=== PATIENT | female | born 1960 | race American Indian/Alaskan Native ===

== ENCOUNTER 2022-01-31 17:39 | Inpatient (IN) | payer MEDICAID ==
[2022-01-31] MEDS ORDERED: SODIUM CHLORIDE 0.9% 1000 ML 1,000 ML IV ONE ×2 (19:44→23:44)
--- NOTE | 2022-01-31 19:48 | Emergency Department Report ---
ED General Adult HPI - General Chief complaint: Hyperglycemia Stated complaint: HYPERGLYCEMIA Time Seen by Provider: 01/31/22 19:35 Source: EMS Mode of arrival: Stretcher Limitations: No Limitations - History of Present Illness Initial comments: Patient presents to the emergency department via EMS from [facility] for hypoglycemia. Patient is nonverbal and not able to add to history. Per my evaluation of the patient EMS had already left the premises. -: unknown Severity scale (0 -10): 0 Consistency: constant Improves with: none Worsens with: none Associated Symptoms: denies other symptoms Treatments Prior to Arrival: none - Related Data Allergies Allergy/AdvReac Type Severity Reaction Status Date / Time No Known Allergies Allergy Verified 01/31/22 17:55 ED Review of Systems ROS: Stated complaint: HYPERGLYCEMIA Other details as noted in HPI Comment: Unobtainable due to pts medical conditions ED Physical Exam - General Limitations: Other (Patient is nonverbal) General appearance: alert - Head Head exam: Present: atraumatic, normocephalic - Eye Eye exam: Present: normal appearance, PERRL, EOMI - ENT ENT exam: Present: mucous membranes dry - Neck Neck exam: Present: normal inspection - Respiratory Respiratory exam: Present: normal lung sounds bilaterally. Absent: respiratory distress - Cardiovascular Cardiovascular Exam: Present: normal rhythm, tachycardia - GI/Abdominal GI/Abdominal exam: Present: soft. Absent: distended - Neurological Exam Neurological exam: Present: alert, other (Not able to assess due to the patient's condition) - Psychiatric Psychiatric exam: Present: other (Unable to assess due to the patient's condition) - Skin Skin exam: Present: warm, dry, intact, normal color. Absent: rash ED Course Vital Signs 01/31/22 01/31/22 01/31/22 17:50 19:02 19:15 Temperature 98.8 F Pulse Rate 120 H 126 H 122 H Respiratory 18 26 H 22 Rate Blood Pressure 116/83 Blood Pressure 133/97 [Left] O2 Sat by Pulse 100 100 100 Oximetry 01/31/22 01/31/22 01/31/22 19:30 19:45 20:00 Temperature Pulse Rate 123 H 121 H 126 H Respiratory 22 24 27 H Rate Blood Pressure 121/88 126/85 128/94 Blood Pressure [Left] O2 Sat by Pulse 100 99 100 Oximetry 01/31/22 01/31/22 01/31/22 20:15 20:31 20:45 Temperature Pulse Rate 120 H 141 H 137 H Respiratory 17 36 H 34 H Rate Blood Pressure 128/94 128/94 128/94 Blood Pressure [Left] O2 Sat by Pulse 99 Oximetry 01/31/22 01/31/22 01/31/22 21:01 21:15 21:31 Temperature Pulse Rate 137 H 142 H 142 H Respiratory 35 H 40 H 36 H Rate Blood Pressure 136/95 136/95 144/99 Blood Pressure [Left] O2 Sat by Pulse 91 Oximetry 01/31/22 01/31/22 01/31/22 21:45 22:01 22:15 Temperature Pulse Rate 144 H 141 H 148 H Respiratory 22 32 H 33 H Rate Blood Pressure 139/95 139/95 137/109 Blood Pressure [Left] O2 Sat by Pulse 99 79 L Oximetry 01/31/22 01/31/22 22:31 22:45 Temperature Pulse Rate 147 H 143 H Respiratory 29 H 33 H Rate Blood Pressure 137/109 137/109 Blood Pressure [Left] O2 Sat by Pulse 98 Oximetry ED Medical Decision Making - Lab Data Result diagrams: 01/31/22 20:33 01/31/22 20:33 Lab Results 01/31/22 01/31/22 01/31/22 Range/Units 20:33 20:33 20:33 WBC 12.5 H (4.5-11.0) K/mm3 RBC 6.16 H (3.65-5.03) M/mm3 Hgb 11.0 (10.1-14.3) gm/dl Hct 37.2 (30.3-42.9) % MCV 61 L (79-97) fl MCH 18 L (28-32) pg MCHC 30 (30-34) % RDW 19.6 H (13.2-15.2) % Plt Count 395 (140-440) K/mm3 Add Manual Diff Complete Total Counted 100 Seg Neuts % (Manual) 98.0 H (40.0-70.0) % Band Neutrophils % 0 % Lymphocytes % (Manual) 0 L (13.4-35.0) % Reactive Lymphs % (Man) 0 % Monocytes % (Manual) 2.0 (0.0-7.3) % Eosinophils % (Manual) 0 (0.0-4.3) % Basophils % (Manual) 0 (0.0-1.8) % Metamyelocytes % 0 % Myelocytes % 0 % Promyelocytes % 0 % Blast Cells % 0 % Nucleated RBC % 2.0 H (0.0-0.9) % Seg Neutrophils # Man 12.3 H (1.8-7.7) K/mm3 Band Neutrophils # 0.0 K/mm3 Lymphocytes # (Manual) 0.0 L (1.2-5.4) K/mm3 Abs React Lymphs (Man) 0.0 K/mm3 Monocytes # (Manual) 0.3 (0.0-0.8) K/mm3 Eosinophils # (Manual) 0.0 (0.0-0.4) K/mm3 Basophils # (Manual) 0.0 (0.0-0.1) K/mm3 Metamyelocytes # 0.0 K/mm3 Myelocytes # 0.0 K/mm3 Promyelocytes # 0.0 K/mm3 Blast Cells # 0.0 K/mm3 WBC Morphology Not Reportable Hypersegmented Neuts Not Reportable Hyposegmented Neuts Not Reportable Hypogranular Neuts Not Reportable Smudge Cells Not Reportable Toxic Granulation Not Reportable Toxic Vacuolation Not Reportable Dohle Bodies Not Reportable Pelger-Huet Anomaly Not Reportable Sung Rods Not Reportable Platelet Estimate Consistent w auto Clumped Platelets Not Reportable Plt Clumps, EDTA Not Reportable Large Platelets Not Reportable Giant Platelets Not Reportable Platelet Satelliting Not Reportable Plt Morphology Comment Not Reportable RBC Morphology Not Reportable Dimorphic RBCs Not Reportable Polychromasia Not Reportable Hypochromasia 3+ Poikilocytosis 3+ Anisocytosis 1+ Microcytosis 2+ Macrocytosis Not Reportable Spherocytes Not Reportable Pappenheimer Bodies Not Reportable Sickle Cells Not Reportable Target Cells 1+ Tear Drop Cells Few Ovalocytes 1+ Helmet Cells Not Reportable [place] Bodies Not Reportable [place] Rings Not Reportable Lesly Cells 1+ Bite Cells Not Reportable Crenated Cell Not Reportable Elliptocytes Few Acanthocytes (Spur) Few Rouleaux Not Reportable Hemoglobin C Crystals Not Reportable Schistocytes Rare Malaria parasites Not Reportable Sven Bodies Not Reportable Hem Pathologist Commnt No Sodium 139 (137-145) mmol/L Potassium 5.6 H (3.6-5.0) mmol/L Chloride 110.1 H (98-107) mmol/L Carbon Dioxide 9 L* (22-30) mmol/L Anion Gap 26 mmol/L BUN 15 (7-17) mg/dL Creatinine 0.8 (0.6-1.2) mg/dL Estimated GFR > 60 ml/min BUN/Creatinine Ratio 19 % Glucose 254 H (65-100) mg/dL Lactic Acid 2.50 H* (0.7-2.0) mmol/L Calcium 10.8 H (8.4-10.2) mg/dL Total Bilirubin 0.70 (0.1-1.2) mg/dL AST 20 (5-40) units/L ALT 10 (7-56) units/L Alkaline Phosphatase 103 (35-129) units/L Total Protein 7.4 (6.3-8.2) g/dL Albumin 4.4 (3.9-5) g/dL Albumin/Globulin Ratio 1.5 % Urine Color (Yellow) Urine Turbidity (Clear) Urine pH (5.0-7.0) Ur Specific [place] (1.003-1.030) Urine Protein (Negative) mg/dL Urine Glucose (UA) (Negative) mg/dL Urine Ketones (Negative) mg/dL Urine Blood (Negative) Urine Nitrite (Negative) Ur Reducing Substances Urine Bilirubin (Negative) Urine Ictotest Urine Urobilinogen (<2.0) mg/dL Ur Leukocyte Esterase (Negative) Urine WBC (Auto) (0.0-6.0) /HPF Urine RBC (Auto) (0.0-6.0) /HPF U Epithel Cells (Auto) (0-13.0) /HPF Urine Mucus /HPF Urine Yeast (Budding) /HPF 01/31/22 01/31/22 Range/Units 22:49 22:51 WBC (4.5-11.0) K/mm3 RBC (3.65-5.03) M/mm3 Hgb (10.1-14.3) gm/dl Hct (30.3-42.9) % MCV (79-97) fl MCH (28-32) pg MCHC (30-34) % RDW (13.2-15.2) % Plt Count (140-440) K/mm3 Add Manual Diff Total Counted Seg Neuts % (Manual) (40.0-70.0) % Band Neutrophils % % Lymphocytes % (Manual) (13.4-35.0) % Reactive Lymphs % (Man) % Monocytes % (Manual) (0.0-7.3) % Eosinophils % (Manual) (0.0-4.3) % Basophils % (Manual) (0.0-1.8) % Metamyelocytes % % Myelocytes % % Promyelocytes % % Blast Cells % % Nucleated RBC % (0.0-0.9) % Seg Neutrophils # Man (1.8-7.7) K/mm3 Band Neutrophils # K/mm3 Lymphocytes # (Manual) (1.2-5.4) K/mm3 Abs React Lymphs (Man) K/mm3 Monocytes # (Manual) (0.0-0.8) K/mm3 Eosinophils # (Manual) (0.0-0.4) K/mm3 Basophils # (Manual) (0.0-0.1) K/mm3 Metamyelocytes # K/mm3 Myelocytes # K/mm3 Promyelocytes # K/mm3 Blast Cells # K/mm3 WBC Morphology Hypersegmented Neuts Hyposegmented Neuts Hypogranular Neuts Smudge Cells Toxic Granulation Toxic Vacuolation Dohle Bodies Pelger-Huet Anomaly Sung Rods Platelet Estimate Clumped Platelets Plt Clumps, EDTA Large Platelets Giant Platelets Platelet Satelliting Plt Morphology Comment RBC Morphology Dimorphic RBCs Polychromasia Hypochromasia Poikilocytosis Anisocytosis Microcytosis Macrocytosis Spherocytes Pappenheimer Bodies Sickle Cells Target Cells Tear Drop Cells Ovalocytes Helmet Cells St[place] Bodies [place] Rings [place] Cells Bite Cells Crenated Cell Elliptocytes Acanthocytes (Spur) Rouleaux Hemoglobin C Crystals Schistocytes Malaria parasites Sven Bodies Hem Pathologist Commnt Sodium (137-145) mmol/L Potassium (3.6-5.0) mmol/L Chloride (98-107) mmol/L Carbon Dioxide (22-30) mmol/L Anion Gap mmol/L BUN (7-17) mg/dL Creatinine (0.6-1.2) mg/dL Estimated GFR ml/min BUN/Creatinine Ratio % Glucose (65-100) mg/dL Lactic Acid 1.30 (0.7-2.0) mmol/L Calcium (8.4-10.2) mg/dL Total Bilirubin (0.1-1.2) mg/dL AST (5-40) units/L ALT (7-56) units/L Alkaline Phosphatase (35-129) units/L Total Protein (6.3-8.2) g/dL Albumin (3.9-5) g/dL Albumin/Globulin Ratio % Urine Color Yellow (Yellow) Urine Turbidity Hazy (Clear) Urine pH 5.0 (5.0-7.0) Ur Specific [place] 1.035 H (1.003-1.030) Urine Protein 100 mg/dl (Negative) mg/dL Urine Glucose (UA) Negative (Negative) mg/dL Urine Ketones 300 (Negative) mg/dL Urine Blood Small A (Negative) Urine Nitrite Negative (Negative) Ur Reducing Substances Not Reportable Urine Bilirubin Negative (Negative) Urine Ictotest Not Reportable Urine Urobilinogen < 2.0 (<2.0) mg/dL Ur Leukocyte Esterase Negative (Negative) Urine WBC (Auto) 142.0 H (0.0-6.0) /HPF Urine RBC (Auto) 107.0 (0.0-6.0) /HPF U Epithel Cells (Auto) 1.0 (0-13.0) /HPF Urine Mucus Few /HPF Urine Yeast (Budding) 3+ /HPF - Radiology Data Radiology results: report reviewed - Medical Decision Making Patient received IV fluids and IV antibiotics Discussed results with the patient's daughter Critical Care Time: Yes Critical care time in (mins) excluding proc time.: 35 Critical care attestation.: If time is entered above; I have spent that time in minutes in the direct care of this critically ill patient, excluding procedure time. ED Disposition Clinical Impression: Sepsis Disposition: 09 ADMITTED INPATIENT Is pt being admited?: Yes Does the pt Need Aspirin: No Condition: Fair
--- NOTE | 2022-01-31 20:30 | XRay Report ---
CHEST 1 VIEW 01/31/2022 7:08 PM INDICATION / CLINICAL INFORMATION: tachycardia. COMPARISON: None available. FINDINGS: SUPPORT DEVICES: None. HEART / MEDIASTINUM: No significant abnormality. LUNGS / PLEURA: No significant pulmonary or pleural abnormality. No pneumothorax. ADDITIONAL FINDINGS: No significant additional findings. IMPRESSION: 1. No acute findings. Signer Name: Alejandro Peraza MD Signed: 01/31/2022 8:26 PM Workstation Name: [id number]
[2022-01-31 20:49] LABS: Hematocrit 37.2 % (30.3-42.9); Mean Corpuscular HGB Conc 30 % (30-34); Platelet Count 395 K/mm3 (140-440); Red Blood Count 6.16 M/mm3 (3.65-5.03); Red Cell Distribution Width 19.6 % (13.2-15.2)
[2022-01-31 20:50] LABS: Mean Corpuscular Volume 61 fl (79-97)
[2022-01-31 21:11] LABS: Alanine Aminotransferase 10 units/L (7-56); Albumin 4.4 g/dL (3.9-5); BUN/Creatinine Ratio 19; Blood Urea Nitrogen 15 mg/dL (7-17); Calcium 10.8 mg/dL (8.4-10.2); Hemolysis Index 134
[2022-01-31 21:52] LABS: Anisocytosis 1+; Basophils % (Manual) 0 % (0.0-1.8); Eosinophils % (Manual) 0 % (0.0-4.3); Total Cells Counted 100
[2022-01-31 21:53] LABS: Burr Cells 1+; Hypochromasia 3+; Ovalocytes 1+; Poikilocytosis 3+; Schistocytes Rare; Target Cells 1+; Tear Drop Cells Few
[2022-01-31 21:54] LABS: Platelet Estimate Consistent w Auto
[2022-01-31] MEDS ORDERED: CEFEPIME/NS 2 GM/100 ML 2 GM/100 ML BAG IV ONE (22:12)
[2022-01-31 23:12] LABS: Mucus,Urine FEW /HPF
[2022-01-31 23:20] LABS: Bilirubin,Urine Negative (Negative); Color,Urine Yellow (Yellow)
[2022-01-31 23:21] LABS: Blood,Urine Small (Negative); Urobilinogen,Urine < 2.0 mg/dL (<2.0)
[2022-02-01] MEDS ORDERED: MORPHINE 4 MG/1 ML INJ IV PRN (00:57)
[2022-02-01] MEDS ORDERED: ALBUTEROL 2.5 MG/3 ML NEBU IH PRN (00:57)
[2022-02-01] MEDS ORDERED: MORPHINE 2 MG/1 ML INJ IV PRN (00:57)
[2022-02-01] MEDS ORDERED: ONDANSETRON 4 MG/2 ML INJ IV PRN (00:57)
[2022-02-01] MEDS ORDERED: D5W/0.45% NACL 1,000 ML IV SCH (01:00)
[2022-02-01] MEDS ORDERED: DEXTROSE 50% IN WATER (25GM) 50 ML SYRINGE IV PRN (01:00)
[2022-02-01] MEDS ORDERED: SODIUM BICARB 8.4% 50 MEQ/50 ML SYRINGE IV ONE ×3 (01:21→12:11)
[2022-02-01] MEDS ORDERED: SODIUM CHLORIDE 0.9% 1000 ML 1,000 ML IV SCH (01:45)
[2022-02-01] MEDS ORDERED: IPRATROPIUM/ALBUTEROL SULFATE 3 ML AMPUL.NEB IH SCH ×2 (02:00→08:00)
[2022-02-01] MEDS ORDERED: IPRATROPIUM/ALBUTEROL SULFATE 3 ML AMPUL.NEB IH PRN (05:30)
[2022-02-01] MEDS ORDERED: INSULIN LISPRO 100 UNIT/ML SUB-Q SCH (06:00)
[2022-02-01] MEDS ORDERED: CEFEPIME/NS 1 GM/100 ML 1 GM/100 ML BAG IV SCH (06:00)
--- NOTE | 2022-02-01 06:53 | History and Physical Report ---
History of Present Illness Date of admission: 02/01/22 00:58 Medications and Allergies Allergies Allergy/AdvReac Type Severity Reaction Status Date / Time No Known Allergies Allergy Verified 01/31/22 17:55 Active Meds: Active Medications Acetaminophen (Acetaminophen 325 Mg Tab) 650 mg PO Q4H PRN PRN Reason: Pain MILD(1-3)/Fever >100.5/ROSADO Albuterol (Albuterol 2.5 Mg/3 Ml Nebu) 2.5 mg IH Q3HRT PRN PRN Reason: Shortness Of Breath Albuterol/Ipratropium (Ipratropium/Albuterol Sulfate 3 Ml Ampul.Neb) 1 ampul IH Q4HRT PRN PRN Reason: Dyspnea Last Admin: 02/01/22 05:42 Dose: 1 ampul Dextrose (Dextrose 50% In Water (25gm) 50 Ml Syringe) 0 ml IV Q30MIN PRN; Protocol PRN Reason: Hypoglycemia Famotidine (Famotidine 20 Mg/2 Ml Inj) 20 mg IV BID JAMIL Cefepime HCl (Cefepime/Ns 1 Gm/100 Ml) 1 gm in 100 mls @ 200 mls/hr IV Q8H JAMIL; Protocol Sodium Chloride (Nacl 0.9% 1000 Ml) 1,000 mls @ 100 mls/hr IV DIRECT JAMIL Last Admin: 02/01/22 03:23 Dose: 100 mls/hr Insulin Human Lispro (Insulin Lispro 100 Unit/Ml) 0 unit SUB-Q Q6HR JAMIL; Protocol Morphine Sulfate (Morphine 2 Mg/1 Ml Inj) 2 mg IV Q4H PRN PRN Reason: Pain, Moderate (4-6) Morphine Sulfate (Morphine 4 Mg/1 Ml Inj) 4 mg IV Q4H PRN PRN Reason: Pain , Severe (7-10) Ondansetron HCl (Ondansetron 4 Mg/2 Ml Inj) 4 mg IV Q8H PRN PRN Reason: Nausea And Vomiting Sodium Chloride (Sodium Chloride 0.9% 10 Ml Flush Syringe) 10 ml IV BID JAMIL Sodium Chloride (Sodium Chloride 0.9% 10 Ml Flush Syringe) 10 ml IV PRN PRN PRN Reason: LINE FLUSH Exam - Constitutional Vitals: Temp Pulse Resp BP Pulse Ox 98.8 F 114 H 24 103/68 97 01/31/22 17:50 02/01/22 06:34 02/01/22 05:43 02/01/22 05:45 02/01/22 06:34 Results - Labs CBC & Chem 7: 01/31/22 20:33 01/31/22 20:33 Labs: Laboratory Last Values WBC 12.5 K/mm3 (4.5-11.0) H 01/31/22 20:33 RBC 6.16 M/mm3 (3.65-5.03) H 01/31/22 20:33 Hgb 11.0 gm/dl (10.1-14.3) 01/31/22 20:33 Hct 37.2 % (30.3-42.9) 01/31/22 20: MCV 61 fl (79-97) L 01/31/22 20: MCH 18 pg (28-32) L 01/31/22 20:33 MCHC 30 % (30-34) 01/31/22 20:33 RDW 19.6 % (13.2-15.2) H 01/31/22 20:33 Plt Count 395 K/mm3 (140-440) 01/31/22 20:33 Add Manual Diff Complete 01/31/22 20:33 Total Counted 100 01/31/22 20:33 Seg Neuts % (Manual) 98.0 % (40.0-70.0) H 01/31/22 20:33 Band Neutrophils % 0 % 01/31/22 20:33 Lymphocytes % (Manual) 0 % (13.4-35.0) L 01/31/22 20:33 Reactive Lymphs % (Man) 0 % 01/31/22 20:33 Monocytes % (Manual) 2.0 % (0.0-7.3) 01/31/22 20:33 Eosinophils % (Manual) 0 % (0.0-4.3) 01/31/22 20:33 Basophils % (Manual) 0 % (0.0-1.8) 01/31/22 20:33 Metamyelocytes % 0 % 01/31/22 20:33 Myelocytes % 0 % 01/31/22 20:33 Promyelocytes % 0 % 01/31/22 20:33 Blast Cells % 0 % 01/31/22 20:33 Nucleated RBC % 2.0 % (0.0-0.9) H 01/31/22 20:33 Seg Neutrophils # Man 12.3 K/mm3 (1.8-7.7) H 01/31/22 20:33 Band Neutrophils # 0.0 K/mm3 01/31/22 20:33 Lymphocytes # (Manual) 0.0 K/mm3 (1.2-5.4) L 01/31/22 20:33 Abs React Lymphs (Man) 0.0 K/mm3 01/31/22 20:33 Monocytes # (Manual) 0.3 K/mm3 (0.0-0.8) 01/31/22 20:33 Eosinophils # (Manual) 0.0 K/mm3 (0.0-0.4) 01/31/22 20:33 Basophils # (Manual) 0.0 K/mm3 (0.0-0.1) 01/31/22 20:33 Metamyelocytes # 0.0 K/mm3 01/31/22 20:33 Myelocytes # 0.0 K/mm3 01/31/22 20:33 Promyelocytes # 0.0 K/mm3 01/31/22 20:33 Blast Cells # 0.0 K/mm3 01/31/22 20:33 WBC Morphology Not Reportable 01/31/22 20:33 Hypersegmented Neuts Not Reportable 01/31/22 20:33 Hyposegmented Neuts Not Reportable 01/31/22 20:33 Hypogranular Neuts Not Reportable 01/31/22 20:33 Smudge Cells Not Reportable 01/31/22 20:33 Toxic Granulation Not Reportable 01/31/22 20:33 Toxic Vacuolation Not Reportable 01/31/22 20:33 Dohle Bodies Not Reportable 01/31/22 20:33 Pelger-Huet Anomaly Not Reportable 01/31/22 20:33 Sung Rods Not Reportable 01/31/22 20:33 Platelet Estimate Consistent w auto 01/31/22 20:33 Clumped Platelets Not Reportable 01/31/22 20:33 Plt Clumps, EDTA Not Reportable 01/31/22 20:33 Large Platelets Not Reportable 01/31/22 20:33 Giant Platelets Not Reportable 01/31/22 20:33 Platelet Satelliting Not Reportable 01/31/22 20:33 Plt Morphology Comment Not Reportable 01/31/22 20:33 RBC Morphology Not Reportable 01/31/22 20:33 Dimorphic RBCs Not Reportable 01/31/22 20:33 Polychromasia Not Reportable 01/31/22 20:33 Hypochromasia 3+ 01/31/22 20:33 Poikilocytosis 3+ 01/31/22 20:33 Anisocytosis 1+ 01/31/22 20:33 Microcytosis 2+ 01/31/22 20:33 Macrocytosis Not Reportable 01/31/22 20:33 Spherocytes Not Reportable 01/31/22 20:33 Pappenheimer Bodies Not Reportable 01/31/22 20:33 Sickle Cells Not Reportable 01/31/22 20:33 Target Cells 1+ 01/31/22 20:33 Tear Drop Cells Few 01/31/22 20:33 Ovalocytes 1+ 01/31/22 20:33 Helmet Cells Not Reportable 01/31/22 20:33 [place] Bodies Not Reportable 01/31/22 20:33 [place] Rings Not Reportable 01/31/22 20:33 Lesly Cells 1+ 01/31/22 20:33 Bite Cells Not Reportable 01/31/22 20:33 Crenated Cell Not Reportable 01/31/22 20:33 Elliptocytes Few 01/31/22 20:33 Acanthocytes (Spur) Few 01/31/22 20:33 Rouleaux Not Reportable 01/31/22 20:33 Hemoglobin C Crystals Not Reportable 01/31/22 20:33 Schistocytes Rare 01/31/22 20:33 Malaria parasites Not Reportable 01/31/22 20:33 Sven Bodies Not Reportable 01/31/22 20:33 Hem Pathologist Commnt No 01/31/22 20:33 Sodium 139 mmol/L (137-145) 01/31/22 20:33 Potassium 5.6 mmol/L (3.6-5.0) H 01/31/22 20:33 Chloride 110.1 mmol/L (98-107) H 01/31/22 20:33 Carbon Dioxide 9 mmol/L (22-30) L* 01/31/22 20:33 Anion Gap 26 mmol/L 01/31/22 20:33 BUN 15 mg/dL (7-17) 01/31/22 20:33 Creatinine 0.8 mg/dL (0.6-1.2) 01/31/22 20:33 Estimated GFR > 60 ml/min 01/31/22 20:33 BUN/Creatinine Ratio 19 % 01/31/22 20:33 Glucose 254 mg/dL (65-100) H 01/31/22 20:33 Lactic Acid 1.30 mmol/L (0.7-2.0) 01/31/22 22:51 Calcium 10.8 mg/dL (8.4-10.2) H 01/31/22 20:33 Total Bilirubin 0.70 mg/dL (0.1-1.2) 01/31/22 20:33 AST 20 units/L (5-40) 01/31/22 20:33 ALT 10 units/L (7-56) 01/31/22 20:33 Alkaline Phosphatase 103 units/L (35-129) 01/31/22 20:33 Total Protein 7.4 g/dL (6.3-8.2) 01/31/22 20:33 Albumin 4.4 g/dL (3.9-5) 01/31/22 20:33 Albumin/Globulin Ratio 1.5 % 01/31/22 20:33 Urine Color Yellow (Yellow) 01/31/22 22:49 Urine Turbidity Hazy (Clear) 01/31/22 22:49 Urine pH 5.0 (5.0-7.0) 01/31/22 22:49 Ur Specific [place] 1.035 (1.003-1.030) H 01/31/22 22:49 Urine Protein 100 mg/dl mg/dL (Negative) 01/31/22 22:49 Urine Glucose (UA) Negative mg/dL (Negative) 01/31/22 22:49 Urine Ketones 300 mg/dL (Negative) 01/31/22 22:49 Urine Blood Small (Negative) A 01/31/22 22:49 Urine Nitrite Negative (Negative) 01/31/22 22:49 Ur Reducing Substances Not Reportable 01/31/22 22:49 Urine Bilirubin Negative (Negative) 01/31/22 22:49 Urine Ictotest Not Reportable 01/31/22 22:49 Urine Urobilinogen < 2.0 mg/dL (<2.0) 01/31/22 22:49 Ur Leukocyte Esterase Negative (Negative) 01/31/22 22:49 Urine WBC (Auto) 142.0 /HPF (0.0-6.0) H 01/31/22 22:49 Urine RBC (Auto) 107.0 /HPF (0.0-6.0) 01/31/22 22:49 U Epithel Cells (Auto) 1.0 /HPF (0-13.0) 01/31/22 22:49 Urine Mucus Few /HPF 01/31/22 22:49 Urine Yeast (Budding) 3+ /HPF 01/31/22 22:49 Microbiology: Microbiology 01/31/22 20:33 Peripheral/Venous Blood Culture - Preliminary Culture in Progress 01/31/22 20:33 Peripheral/Venous Blood Culture - Preliminary Culture in Progress
--- NOTE | 2022-02-01 07:48 | Event Note ---
Date: 02/01/22 Accepted this patient as an ICU transfer from Dr. Kiser. Per ER physician note patient was noted to be hypoglycemic at outpatient facility. Was transferred to our hospital. Blood sugars have never been noted to be hypoglycemic since patient has been here. Patient was admitted to the floor and subsequently noted to be in diabetic ketoacidosis. Will transfer patient to ICU. Dr. Hudson notified. Assessment and Plan: #Diabetic ketoacidosis #Severe Metabolic Acidosis - altered however unclear bsaeline, kussmaul breathing on my encounter. - AG:, BG in 300's, ketonuria, VBG pending, bicarb 9 - weakness, states she is compliant with meds. - DKA protocol: IV insulin, IVF. - bicarb gtt ordered x 1 bag. - NPO until AG closes - once AG closed (< 14), can start lantus 10 mg subq. Please run insulin gtt 1hr after lantus admin. Can initiate diabetic diet as well - accuchecks q1 hr until AG closed - BMP q4hr until AG closed - CVC needed due to poor access - [facility] consultation #Hyperkalemia - 5.8. - should correct with insulin admin and fluid resuscitation. - kayexylate if K > 6. #Type 2 Diabetes with Hyperglycemia - hemoglobin A1c: ordered - home regimen: Unknown - current regimen: Moderate SSI - blood glucose goal 140-180 while inpatient - continue to monitor #Urinary tract infection #Sepsis POA - UA elevated WBC, wbc: 12, tachycardic - urine culture ordered - d/c cefepime, start rocephin IV 3-5 d therapy Dispo: ICU due to DKA. The high probability of a clinically significant, sudden or life threatening deterioration of the [endocrine, infectious disease] system(s) required my full and direct attention, intervention and personal management. The aggregate critical care time was [60] minutes. This time is in addition to time spent performing reported procedures but includes the following: [x] Data Review and interpretation [x] Patient assessment and monitoring of vital signs [x] Documentation [x] Medication orders and management
[2022-02-01] MEDS ORDERED: SODIUM BICARBONATE 150 MEQ in DEXTROSE 5% IN WATER 1,000 ML IV SCH ×2 (08:00→09:00)
[2022-02-01] MEDS ORDERED: POTASSIUM CHLORIDE 10 MEQ 10 MEQ/100 ML BAG IV SCH ×2 (08:00→18:30)
[2022-02-01] MEDS ORDERED: LACTATED RINGERS 1,000 ML ONE (08:15)
[2022-02-01 08:44] LABS: Blood Urea Nitrogen 14 mg/dL (7-17); Calcium 8.8 mg/dL (8.4-10.2); Hemolysis Index 109
[2022-02-01 08:57] LABS: BUN/Creatinine Ratio 20
[2022-02-01] MEDS ORDERED: cefTRIAXone/NS 1 GM/50 ML 1 GM/50 ML BAG IV SCH (09:00)
[2022-02-01] MEDS ORDERED: SODIUM CHLORIDE 0.9% 1000 ML 1,000 ML IV ONE (09:00)
[2022-02-01] MEDS ORDERED: NORepinephrine/NS 8 MG-250 ML 0 MG/0 ML INFUS..BTL IV ONE (09:44)
[2022-02-01 09:53] LABS: ABG Base Excess -24.8 mmol/L (-2.0-3.0); ABG HCO3 3.7 mmol/L (20.0-26.0); ABG Methemoglobin 0.8 % (0.0-1.5); ABG Oxygen Saturation 97.3 % (95.0-99.0)
[2022-02-01 10:04] LABS: ABG PH 7.044 pH Units (7.350-7.450)
--- NOTE | 2022-02-01 11:09 | XRay Report ---
CHEST 1 VIEW 02/01/2022 10:52 AM INDICATION / CLINICAL INFORMATION: RT IJ central line. COMPARISON: Previous day. FINDINGS: SUPPORT DEVICES: Right IJ central venous catheter has its tip at the right atrial/SVC junction. HEART / MEDIASTINUM: No significant abnormality. LUNGS / PLEURA: New patchy opacity bilaterally left greater than right. No pneumothorax. ADDITIONAL FINDINGS: No significant additional findings. IMPRESSION: 1. Central line placement without complication. 2. Development of bilateral pneumonia versus atypical edema. Signer Name: Moises Prince MD Signed: 02/01/2022 11:04 AM Workstation Name: [email or web address]
[2022-02-01] MEDS ORDERED: LACTATED RINGERS 1,000 ML IV ONE (11:35)
--- NOTE | 2022-02-01 11:37 | Procedure Note ---
Date of procedure: 02/01/22 Pre-op diagnosis: DKA, poor vascular access Post-op diagnosis: same Procedure: Statement of consent: Two MD consent for emergent procedure, Dr. Hidalgo and Dr. Hudson-> see chart for consent Triple lumen catheter was placed in Right Inter Jugular vein. Sterile technique was utilized. Patient prepped and placed in trendelenburg position. Area prepped with chlorhexidine/ full body drape utilized. Target vessel visualized with ultrasound. Using seldinger technique, a finder needle was used to puncture target vessel. Wire was threaded through the needle, skin was nicked and needle was withdrawn over wire. A dilator was passed over the wire and tract was dilated. A central venous line catheter was threaded over a wire. All three ports withdrew blood and flushed without difficulty with saline. Line sutured in place, biopatch placed and dressed with tegaderm. Chest x-ray to confirm placement. Pt tolerated procedure well. VS remained stable throughout procedure. (time spent placing line not included in daily critical care time) CCT: 60 mins Anesthesia: local Surgeon: RADHA GONZALEZ Estimated blood loss: minimal Condition: critical Disposition: ICU
--- NOTE | 2022-02-01 11:39 | XRay Report ---
CHEST 1 VIEW 02/01/2022 11:20 AM INDICATION / CLINICAL INFORMATION: Repositioned RT IJ central line. COMPARISON: February 01, 2022 FINDINGS: SUPPORT DEVICES: Right jugular line tip overlies distal SVC HEART / MEDIASTINUM: No significant abnormality. LUNGS / PLEURA: Diffuse opacities in bilateral lungs persist No pneumothorax. ADDITIONAL FINDINGS: No significant additional findings. IMPRESSION: Diffuse bilateral pulmonary opacities. Right jugular line tip overlies distal SVC Signer Name: Rigoberto Eaton MD Signed: 02/01/2022 11:34 AM Workstation Name: [id number]
[2022-02-01] MEDS: INSULIN REGULAR, HUMAN 100 UNITS in SODIUM CHLORIDE 0.9% 99 ML IV SCH ×2 (12:03→20:44)
[2022-02-01] MEDS: FAMOTIDINE 20 MG/2 ML INJ IV SCH ×2 (12:07→22:05)
[2022-02-01] MEDS ORDERED: VANCOMYCIN 1,000 MG in SODIUM CHLORIDE 0.9% 500 ML 500 ML IV ONE (12:51)
[2022-02-01] MEDS ORDERED: VANCOMYCIN PHARMACY TO DOSE IV SCH (13:00)
[2022-02-01 14:07] LABS: Blood Urea Nitrogen 11 mg/dL (7-17); Calcium 7.7 mg/dL (8.4-10.2); Hemolysis Index 1
[2022-02-01 14:21] LABS: BUN/Creatinine Ratio 18
--- NOTE | 2022-02-01 14:21 | Consultation ---
History of Present Illness - Reason for Consult Consult date: 02/01/22 DKA - History of Present Illness 61 y/o female admitted for AMS and found to have severe metabolic acidosis. Somehow admitted to the telemetry floor. This am worsening of altered mental state and repeat labs showed a bicarb of 3. Transferred to ICU for insulin drip, volume resuscitation and correction of severe metabolic derangements. Past History Past Medical History: other (unable to obtain) Past Surgical History: Other (unable to obtain) Social history: other (unable to obtain) Family history: other (unable to obtain) Medications and Allergies Allergies Allergy/AdvReac Type Severity Reaction Status Date / Time No Known Allergies Allergy Verified 01/31/22 17:55 Active Meds: Active Medications Acetaminophen (Acetaminophen 325 Mg Tab) 650 mg PO Q4H PRN PRN Reason: Pain MILD(1-3)/Fever >100.5/ROSADO Albuterol (Albuterol 2.5 Mg/3 Ml Nebu) 2.5 mg IH Q3HRT PRN PRN Reason: Shortness Of Breath Albuterol/Ipratropium (Ipratropium/Albuterol Sulfate 3 Ml Ampul.Neb) 1 ampul IH Q4HRT PRN PRN Reason: Dyspnea Last Admin: 02/01/22 05:42 Dose: 1 ampul Dextrose (Dextrose 50% In Water (25gm) 50 Ml Syringe) 0 ml IV Q30MIN PRN; Protocol PRN Reason: Hypoglycemia Famotidine (Famotidine 20 Mg/2 Ml Inj) 20 mg IV BID JAMIL Last Admin: 02/01/22 12:07 Dose: 20 mg Sodium Chloride (Nacl 0.9% 1000 Ml) 1,000 mls @ 100 mls/hr IV DIRECT JAMIL Last Admin: 02/01/22 03:23 Dose: 100 mls/hr Sodium Bicarbonate 150 meq/ (Dextrose) 1,150 mls @ 125 mls/hr IV DIRECT JAMIL Stop: 02/01/22 18:11 Last Admin: 02/01/22 11:50 Dose: 125 mls/hr Insulin Human Regular 100 (units/ Sodium Chloride) 100 mls @ 1 mls/hr IV TITR JAMIL; Protocol Last Admin: 02/01/22 12:03 Dose: 1 units/hr, 1 mls/hr Potassium Chloride (Kcl 10meq/100ml) 10 meq in 100 mls @ 100 mls/hr IV Q1H JAMIL Stop: 02/01/22 11:59 Vancomycin HCl 1,000 mg/ (Sodium Chloride) 520 mls @ 333 mls/hr IV ONCE ONE; Protocol Stop: 02/01/22 14:24 Cefepime HCl (Cefepime/Ns 2 Gm/100 Ml) 2 gm in 100 mls @ 200 mls/hr IV Q12H JAMIL; Protocol Morphine Sulfate (Morphine 2 Mg/1 Ml Inj) 2 mg IV Q4H PRN PRN Reason: Pain, Moderate (4-6) Morphine Sulfate (Morphine 4 Mg/1 Ml Inj) 4 mg IV Q4H PRN PRN Reason: Pain , Severe (7-10) Ondansetron HCl (Ondansetron 4 Mg/2 Ml Inj) 4 mg IV Q8H PRN PRN Reason: Nausea And Vomiting Sodium Chloride (Sodium Chloride 0.9% 10 Ml Flush Syringe) 10 ml IV BID JAMIL Sodium Chloride (Sodium Chloride 0.9% 10 Ml Flush Syringe) 10 ml IV PRN PRN PRN Reason: LINE FLUSH Review of Systems ROS unobtainable: due to mental status Exam - Constitutional Vitals: Temp Pulse Resp BP Pulse Ox 98.8 F 92 H 20 100/69 100 01/31/22 17:50 02/01/22 13:00 02/01/22 13:00 02/01/22 13:00 02/01/22 12:51 Results - Labs CBC & Chem 7: 01/31/22 20:33 02/01/22 12:54 Labs: Abnormal lab results 01/31/22 01/31/22 01/31/22 Range/Units 20:33 20:33 20:33 WBC 12.5 H (4.5-11.0) K/mm3 RBC 6.16 H (3.65-5.03) M/mm3 MCV 61 L (79-97) fl MCH 18 L (28-32) pg RDW 19.6 H (13.2-15.2) % Seg Neuts % (Manual) 98.0 H (40.0-70.0) % Lymphocytes % (Manual) 0 L (13.4-35.0) % Nucleated RBC % 2.0 H (0.0-0.9) % Seg Neutrophils # Man 12.3 H (1.8-7.7) K/mm3 Lymphocytes # (Manual) 0.0 L (1.2-5.4) K/mm3 ABG pH (7.350-7.450) pH Units ABG pO2 (80.0-90.0) mm Hg ABG HCO3 (20.0-26.0) mmol/L ABG Base Excess (-2.0-3.0) mmol/L ABG Hemoglobin (12.0-16.0) gm/dl Potassium 5.6 H (3.6-5.0) mmol/L Chloride 110.1 H (98-107) mmol/L Carbon Dioxide 9 L* (22-30) mmol/L Glucose 254 H (65-100) mg/dL POC Glucose (70-105) mg/dL Hemoglobin A1c (4-6) % Lactic Acid 2.50 H* (0.7-2.0) mmol/L Calcium 10.8 H (8.4-10.2) mg/dL Ur Specific [place] (1.003-1.030) Urine Blood (Negative) Urine WBC (Auto) (0.0-6.0) /HPF 01/31/22 02/01/22 02/01/22 Range/Units 22:49 07:34 08:22 WBC (4.5-11.0) K/mm3 RBC (3.65-5.03) M/mm3 MCV (79-97) fl MCH (28-32) pg RDW (13.2-15.2) % Seg Neuts % (Manual) (40.0-70.0) % Lymphocytes % (Manual) (13.4-35.0) % Nucleated RBC % (0.0-0.9) % Seg Neutrophils # Man (1.8-7.7) K/mm3 Lymphocytes # (Manual) (1.2-5.4) K/mm3 ABG pH (7.350-7.450) pH Units ABG pO2 (80.0-90.0) mm Hg ABG HCO3 (20.0-26.0) mmol/L ABG Base Excess (-2.0-3.0) mmol/L ABG Hemoglobin (12.0-16.0) gm/dl Potassium 5.8 H (3.6-5.0) mmol/L Chloride 115.8 H (98-107) mmol/L Carbon Dioxide 3 L* (22-30) mmol/L Glucose 400 H (65-100) mg/dL POC Glucose 368 H (70-105) mg/dL Hemoglobin A1c (4-6) % Lactic Acid (0.7-2.0) mmol/L Calcium (8.4-10.2) mg/dL Ur Specific [place] 1.035 H (1.003-1.030) Urine Blood Small A (Negative) Urine WBC (Auto) 142.0 H (0.0-6.0) /HPF 02/01/22 02/01/22 02/01/22 Range/Units 09:42 12:01 12:54 WBC (4.5-11.0) K/mm3 RBC (3.65-5.03) M/mm3 MCV (79-97) fl MCH (28-32) pg RDW (13.2-15.2) % Seg Neuts % (Manual) (40.0-70.0) % Lymphocytes % (Manual) (13.4-35.0) % Nucleated RBC % (0.0-0.9) % Seg Neutrophils # Man (1.8-7.7) K/mm3 Lymphocytes # (Manual) (1.2-5.4) K/mm3 ABG pH 7.044 L* (7.350-7.450) pH Units ABG pO2 121.0 H (80.0-90.0) mm Hg ABG HCO3 3.7 L (20.0-26.0) mmol/L ABG Base Excess -24.8 L (-2.0-3.0) mmol/L ABG Hemoglobin 9.3 L (12.0-16.0) gm/dl Potassium (3.6-5.0) mmol/L Chloride (98-107) mmol/L Carbon Dioxide (22-30) mmol/L Glucose (65-100) mg/dL POC Glucose 382 H (70-105) mg/dL Hemoglobin A1c 11.1 H (4-6) % Lactic Acid (0.7-2.0) mmol/L Calcium (8.4-10.2) mg/dL Ur Specific [place] (1.003-1.030) Urine Blood (Negative) Urine WBC (Auto) (0.0-6.0) /HPF 02/01/22 02/01/22 Range/Units 12:54 13:27 WBC (4.5-11.0) K/mm3 RBC (3.65-5.03) M/mm3 MCV (79-97) fl MCH (28-32) pg RDW (13.2-15.2) % Seg Neuts % (Manual) (40.0-70.0) % Lymphocytes % (Manual) (13.4-35.0) % Nucleated RBC % (0.0-0.9) % Seg Neutrophils # Man (1.8-7.7) K/mm3 Lymphocytes # (Manual) (1.2-5.4) K/mm3 ABG pH (7.350-7.450) pH Units ABG pO2 (80.0-90.0) mm Hg ABG HCO3 (20.0-26.0) mmol/L ABG Base Excess (-2.0-3.0) mmol/L ABG Hemoglobin (12.0-16.0) gm/dl Potassium (3.6-5.0) mmol/L Chloride 117.3 H (98-107) mmol/L Carbon Dioxide (22-30) mmol/L Glucose 439 H (65-100) mg/dL POC Glucose 342 H (70-105) mg/dL Hemoglobin A1c (4-6) % Lactic Acid (0.7-2.0) mmol/L Calcium 7.7 L (8.4-10.2) mg/dL Ur Specific [place] (1.003-1.030) Urine Blood (Negative) Urine WBC (Auto) (0.0-6.0) /HPF - Imaging and Cardiology Chest x-ray: image reviewed (bilateral alevolar air space opacities, mild hyperinflation.) Assessment and Plan 2 amps of NaBicarb pushed Started on Insulin drip Central line placement secondary to lack of access Aggressive volume resuscitation q1 hour fsbs and q6 hour BMPs for the next 36-48 hours Supplemental O2 Not a candidate for bipap currently given mental state so if her respiratory status deteriorates would need intubation. Guarded prognosis. Spoke with daughter briefly at bedside. She did not get off her cell phone so not able to have a full conversation with her about her mother. CCT 31 minutes.
[2022-02-01] MEDS ORDERED: MAGNESIUM SULFATE 4 GM/100 ML BAG IV ONE (15:30)
[2022-02-01] MEDS ORDERED: POTASSIUM PHOSPHATE 45 MMOL in SODIUM CHLORIDE 0.9% 500 ML 500 ML IV ONE (15:30)
[2022-02-01] MEDS ORDERED: VANCOMYCIN/NS 1 GM/250 ML 1 GM/250 ML BAG IV ONE (16:00)
[2022-02-01] MEDS ORDERED: SODIUM BICARBONATE 150 MEQ in WATER FOR INJECTION (PF) 1,000 ML IV SCH (17:00)
[2022-02-01] MEDS ORDERED: ATROPINE 0.1% (1 MG/10 ML) CARDIAC SYRINGE ONE (17:18)
[2022-02-01] MEDS: NORepinephrine/NS 8 MG-250 ML 8 MG/250 ML INFUS..BTL IV SCH (17:30)
[2022-02-01] MEDS ORDERED: NORepinephrine/NS 8 MG-250 ML 8 MG/250 ML INFUS..BTL IV ONE (17:30)
[2022-02-01] MEDS ORDERED: ETOMIDATE 20 MG/10 ML INJ IV ONE (17:33)
--- NOTE | 2022-02-01 17:49 | Event Note ---
Date: 02/01/22 ACLS protocol was initiated Cardiac compressions started Heart rate was around 50 to Patient that I will not be breathing initially because of which decision to intubate was made ER physician Dr. Gastelum was called Patient intubated with etomidate and succinylcholine . Chest x-ray initiated 2 A of bicarb were ordered to be given Repeat labs Patient has severe metabolic acidosis and DKA.
--- NOTE | 2022-02-01 18:09 | XRay Report ---
CHEST 1 VIEW INDICATION / CLINICAL INFORMATION: ETT placement. Respiratory distress FINDINGS: SUPPORT DEVICES: Newly placed endotracheal tube terminates about 3 cm above the kathy.. HEART / MEDIASTINUM: The cardiomediastinal silhouette has not significantly changed in the interim. LUNGS / PLEURA: Severe bilateral airspace disease has slightly worsened from 02/01/2022 earlier today. Signer Name: Sudeep Michael MD Signed: 02/01/2022 6:05 PM Workstation Name: [email or web address]
[2022-02-01] MEDS: CEFEPIME/NS 2 GM/100 ML 2 GM/100 ML BAG IV SCH (18:34)
[2022-02-01] MEDS ORDERED: LIP THERAPY VASELINE TP PRN (18:52)
[2022-02-01] MEDS ORDERED: MINERAL OIL/PETROLATUM, WHITE OPHTH OINT 3.5 GM OU PRN (18:52)
[2022-02-01 19:01] LABS: ABG Base Excess -4.9 mmol/L (-2.0-3.0); ABG HCO3 20.6 mmol/L (20.0-26.0); ABG Methemoglobin 0.5 % (0.0-1.5); ABG Oxygen Saturation 98.2 % (95.0-99.0); ABG PH 7.331 pH Units (7.350-7.450); ABG PO2 121.4 mm Hg (80.0-90.0)
[2022-02-02 01:03] LABS: Blood Urea Nitrogen 9 mg/dL (7-17); Calcium 8.1 mg/dL (8.4-10.2); Hemolysis Index 8
[2022-02-02 01:07] LABS: BUN/Creatinine Ratio 18
[2022-02-02] MEDS ORDERED: POTASSIUM CHLORIDE IV SCH (01:45)
[2022-02-02] MEDS ORDERED: WATER IV SCH (01:45)
[2022-02-02] MEDS ORDERED: SODIUM BICARBONATE IV SCH (01:45)
[2022-02-02] MEDS ORDERED: DEXTROSE 5% IV SCH (01:45)
[2022-02-02] MEDS: POTASSIUM CHLORIDE 20 MEQ 20 MEQ/100 ML BAG IV SCH ×2 (02:04→02:52)
[2022-02-02 05:41] LABS: Hematocrit 26.8 % (30.3-42.9); Hemoglobin 8.5 gm/dl (10.1-14.3); Mean Corpuscular HGB Conc 32 % (30-34); Red Blood Count 4.69 M/mm3 (3.65-5.03)
[2022-02-02 05:44] LABS: Mean Corpuscular Volume 57 fl (79-97)
[2022-02-02 06:00] LABS: Blood Urea Nitrogen 10 mg/dL (7-17); Calcium 7.6 mg/dL (8.4-10.2); Hemolysis Index 5
[2022-02-02 06:02] LABS: BUN/Creatinine Ratio 17
[2022-02-02] MEDS: CEFEPIME/NS 2 GM/100 ML 2 GM/100 ML BAG IV SCH ×2 (07:09→16:37)
[2022-02-02 07:29] LABS: Anisocytosis 1+; Band Neutrophils # (Manual) 0.1 K/mm3; Basophils % (Manual) 0 % (0.0-1.8); Hypochromasia 2+; Platelet Estimate Consistent w Auto; Target Cells 1+; Total Cells Counted 100
[2022-02-02 07:36] LABS: Platelet Count 129 K/mm3 (140-440)
[2022-02-02] MEDS ORDERED: INSULIN REGULAR, HUMAN 100 UNITS/1 ML SUB-Q SCH (08:00)
[2022-02-02] MEDS ORDERED: INSULIN GLARGINE 100 UNITS/ML SUB-Q SCH ×3 (08:00→14:00)
[2022-02-02] MEDS ORDERED: LIPASE 10,500/PROTEASE 25,000/AMYLASE 43,750 (UNITS) DR CAP FEEDTUBE PRN (08:08)
[2022-02-02] MEDS ORDERED: SODIUM BICARBONATE 325 MG TAB FEEDTUBE PRN (08:08)
[2022-02-02] MEDS ORDERED: SIMPLE SYRUP 15 ML FEEDTUBE PRN ×2 (08:08)
[2022-02-02] MEDS ORDERED: LACTATED RINGERS 1,000 ML IV ONE (08:10)
[2022-02-02] MEDS: DEXTROSE 50% IN WATER (25GM) 50 ML SYRINGE IV PRN (09:03)
[2022-02-02 09:38] LABS: Blood Urea Nitrogen 10 mg/dL (7-17); Calcium 7.4 mg/dL (8.4-10.2); Hemolysis Index 5
--- NOTE | 2022-02-02 09:40 | XRay Report ---
CHEST 1 VIEW 02/02/2022 8:22 AM INDICATION / CLINICAL INFORMATION: follow up respiratory failure. COMPARISON: 02/01/22 FINDINGS: SUPPORT DEVICES: Unchanged. HEART / MEDIASTINUM: No significant abnormality. LUNGS / PLEURA: Moderately extensive patchy bilateral pulmonary opacities are unchanged. No pneumotho rax. ADDITIONAL FINDINGS: No significant additional findings. IMPRESSION: 1. No change since most recent study. Signer Name: Fabio Camargo MD Signed: 02/02/2022 9:36 AM Workstation Name: [id number]
[2022-02-02] MEDS: FAMOTIDINE 20 MG/2 ML INJ IV SCH ×2 (09:59→22:14)
[2022-02-02 10:03] LABS: BUN/Creatinine Ratio 13
[2022-02-02 10:21] LABS: Mean Corpuscular HGB Conc 32 % (30-34); Red Blood Count 4.38 M/mm3 (3.65-5.03); Red Cell Distribution Width 18.8 % (13.2-15.2)
--- NOTE | 2022-02-02 10:28 | XRay Report ---
ABDOMEN 1 VIEW 02/02/2022 10:04 AM INDICATION / CLINICAL INFORMATION: s/p ogt placement. COMPARISON: None available. FINDINGS: TUBES / LINES: Esophagogastric tube in the distal stomach in the region of the pylorus. BOWEL GAS PATTERN: No significant abnormality. FREE AIR / EXTRALUMINAL GAS: None. ADDITIONAL FINDINGS: Bilateral pulmonary opacities unchanged since radiograph earlier in the day. IMPRESSION: 1. Esophagogastric tube in expected position. Signer Name: Fabio Camargo MD Signed: 02/02/2022 10:23 AM Workstation Name: [id number]
[2022-02-02 10:31] LABS: Mean Corpuscular Volume 57 fl (79-97); Platelet Count 97 K/mm3 (140-440)
[2022-02-02] MEDS ORDERED: POTASSIUM PHOSPHATE 45 MMOL in SODIUM CHLORIDE 0.9% 500 ML 500 ML IV ONE (10:36)
[2022-02-02] MEDS ORDERED: POTASSIUM CHLORIDE 20 MEQ PACKET FEEDTUBE ONE (10:36)
--- NOTE | 2022-02-02 10:52 | Progress Note ---
Assessment and Plan 02/02/22: Wean Vasopressors as tolerated for maps >65. Check echo. Stop insulin therapy. Q1hour fSbs and cover with sliding scale. Repeat ABG later today to follow pH. May need some diamox later. Patient now neutropenic and thrombocytopenic, repeated CBC and still the same. may need to consider heme consult. For now continue broad spec abx therapy. prognosis is guarded to poor. 2 amps of NaBicarb pushed Started on Insulin drip Central line placement secondary to lack of access Aggressive volume resuscitation q1 hour fsbs and q6 hour BMPs for the next 36-48 hours Supplemental O2 Not a candidate for bipap currently given mental state so if her respiratory status deteriorates would need intubation. Guarded prognosis. Spoke with daughter briefly at bedside. She did not get off her cell phone so not able to have a full conversation with her about her mother. CCT 31 minutes. Subjective Date of service: 02/02/22 Interval history: Patient had cardiac arrest yesterday. One round of CPR, Epi and 2 bicarbs. This am, on Diprovan, intubated. Also requiring pressors now but most likely secondary to sedation as her BP was stable yesterday. Objective - Constitutional Vitals: Vital Signs - 12hr 02/01/22 02/01/22 02/01/22 22:51 23:00 23:11 Temperature Pulse Rate 102 H 102 H 103 H Pulse Rate [ From Monitor] Respiratory 30 H 31 H 31 H Rate Blood Pressure 129/74 116/71 116/71 O2 Sat by Pulse Oximetry 02/01/22 02/01/22 02/01/22 23:21 23:30 23:41 Temperature Pulse Rate 103 H 101 H 100 H Pulse Rate [ From Monitor] Respiratory 30 H 30 H 30 H Rate Blood Pressure 124/81 119/71 119/71 O2 Sat by Pulse Oximetry 02/01/22 02/02/22 02/02/22 23:51 00:00 00:01 Temperature 94.3 F L Pulse Rate 101 H 102 H 101 H Pulse Rate [ 102 H From Monitor] Respiratory 31 H 30 H Rate Blood Pressure 108/73 117/72 O2 Sat by Pulse 100 Oximetry 02/02/22 02/02/22 02/02/22 00:11 00:21 00:30 Temperature Pulse Rate 100 H 102 H 102 H Pulse Rate [ From Monitor] Respiratory 30 H 28 H 25 H Rate Blood Pressure 117/72 114/71 114/54 O2 Sat by Pulse 93 Oximetry 02/02/22 02/02/22 02/02/22 00:41 00:51 01:00 Temperature Pulse Rate 102 H 101 H 105 H Pulse Rate [ From Monitor] Respiratory 34 H 32 H 30 H Rate Blood Pressure 114/54 119/64 107/78 O2 Sat by Pulse 84 100 100 Oximetry 02/02/22 02/02/22 02/02/22 01:11 01:21 01:30 Temperature Pulse Rate 106 H 106 H 104 H Pulse Rate [ From Monitor] Respiratory 31 H 27 H 29 H Rate Blood Pressure 107/78 110/59 114/61 O2 Sat by Pulse 100 100 100 Oximetry 02/02/22 02/02/22 02/02/22 01:41 01:51 02:00 Temperature Pulse Rate 103 H 103 H 107 H Pulse Rate [ From Monitor] Respiratory 31 H 20 24 Rate Blood Pressure 114/61 107/67 114/62 O2 Sat by Pulse 100 100 100 Oximetry 02/02/22 02/02/22 02/02/22 02:11 02:21 02:31 Temperature Pulse Rate 107 H 113 H 108 H Pulse Rate [ From Monitor] Respiratory 33 H 26 H 26 H Rate Blood Pressure 114/62 120/61 120/61 O2 Sat by Pulse 100 100 100 Oximetry 02/02/22 02/02/22 02/02/22 02:41 02:51 03:01 Temperature Pulse Rate 109 H 109 H 111 H Pulse Rate [ From Monitor] Respiratory 27 H 30 H 18 Rate Blood Pressure 128/96 105/52 112/94 O2 Sat by Pulse 100 100 100 Oximetry 02/02/22 02/02/22 02/02/22 03:11 03:21 03:31 Temperature Pulse Rate 110 H 110 H 113 H Pulse Rate [ From Monitor] Respiratory 25 H 29 H 27 H Rate Blood Pressure 112/94 112/94 112/94 O2 Sat by Pulse 100 100 100 Oximetry 02/02/22 02/02/22 02/02/22 03:41 03:51 04:00 Temperature 99.1 F Pulse Rate 111 H 109 H 109 H Pulse Rate [ 115 H From Monitor] Respiratory 24 29 H 28 H Rate Blood Pressure 112/94 93/54 87/59 O2 Sat by Pulse 100 100 100 Oximetry 02/02/22 02/02/22 02/02/22 04:11 04:21 04:30 Temperature Pulse Rate 109 H 108 H 108 H Pulse Rate [ From Monitor] Respiratory 26 H 26 H 26 H Rate Blood Pressure 87/59 94/62 100/52 O2 Sat by Pulse 100 100 100 Oximetry 02/02/22 02/02/22 02/02/22 04:41 04:51 05:00 Temperature Pulse Rate 120 H 115 H 116 H Pulse Rate [ From Monitor] Respiratory 25 H 27 H 28 H Rate Blood Pressure 100/52 102/56 106/60 O2 Sat by Pulse 100 100 100 Oximetry 02/02/22 02/02/22 02/02/22 05:10 05:11 05:21 Temperature Pulse Rate 100 H 113 H 114 H Pulse Rate [ From Monitor] Respiratory 26 H 26 H Rate Blood Pressure 96/42 106/60 93/56 O2 Sat by Pulse 100 100 100 Oximetry 02/02/22 02/02/22 02/02/22 05:30 05:41 05:51 Temperature Pulse Rate 115 H 115 H 114 H Pulse Rate [ From Monitor] Respiratory 26 H 24 23 Rate Blood Pressure 96/56 96/56 103/61 O2 Sat by Pulse 100 100 100 Oximetry 02/02/22 02/02/22 02/02/22 06:00 06:11 06:21 Temperature Pulse Rate 113 H 113 H 113 H Pulse Rate [ From Monitor] Respiratory 24 22 22 Rate Blood Pressure 102/57 102/57 107/57 O2 Sat by Pulse 100 100 100 Oximetry 02/02/22 02/02/22 02/02/22 06:30 06:41 06:51 Temperature Pulse Rate 115 H 116 H 117 H Pulse Rate [ From Monitor] Respiratory 22 22 Rate Blood Pressure 97/58 97/58 105/60 O2 Sat by Pulse 100 100 100 Oximetry 02/02/22 02/02/22 02/02/22 07:00 07:11 07:21 Temperature Pulse Rate 117 H 116 H 118 H Pulse Rate [ From Monitor] Respiratory 23 22 22 Rate Blood Pressure 103/57 103/57 110/62 O2 Sat by Pulse 100 100 100 Oximetry 02/02/22 02/02/22 02/02/22 07:31 07:41 07:51 Temperature Pulse Rate 120 H 120 H 116 H Pulse Rate [ From Monitor] Respiratory 23 31 H 22 Rate Blood Pressure 121/50 121/50 123/83 O2 Sat by Pulse 98 91 Oximetry 02/02/22 02/02/22 02/02/22 07:55 08:00 08:01 Temperature Pulse Rate 114 H 119 H 115 H Pulse Rate [ From Monitor] Respiratory 26 H Rate Blood Pressure 87/38 89/48 O2 Sat by Pulse 98 Oximetry 02/02/22 02/02/22 02/02/22 08:11 08:21 08:30 Temperature Pulse Rate 114 H 111 H 111 H Pulse Rate [ From Monitor] Respiratory 26 H 28 H 28 H Rate Blood Pressure 104/43 87/44 95/48 O2 Sat by Pulse 97 Oximetry 02/02/22 02/02/22 02/02/22 08:41 08:50 09:00 Temperature Pulse Rate 115 H 111 H 110 H Pulse Rate [ From Monitor] Respiratory 24 28 H 29 H Rate Blood Pressure 87/44 88/50 99/57 O2 Sat by Pulse 61 L 90 Oximetry 02/02/22 02/02/22 02/02/22 09:11 09:20 09:30 Temperature Pulse Rate 110 H 113 H 111 H Pulse Rate [ From Monitor] Respiratory 31 H 34 H 26 H Rate Blood Pressure 88/50 101/77 105/61 O2 Sat by Pulse Oximetry 02/02/22 02/02/22 02/02/22 09:41 09:51 10:01 Temperature Pulse Rate 113 H 114 H 115 H Pulse Rate [ From Monitor] Respiratory 33 H 30 H 27 H Rate Blood Pressure 105/61 132/62 104/53 O2 Sat by Pulse 83 L 94 Oximetry 02/02/22 02/02/22 10:11 10:26 Temperature 97.6 F Pulse Rate 114 H Pulse Rate [ From Monitor] Respiratory 28 H Rate Blood Pressure 104/53 O2 Sat by Pulse 96 Oximetry - Labs CBC & Chem 7: 02/02/22 09:41 02/02/22 09:05 Labs: Abnormal lab results 02/01/22 02/01/22 02/01/22 Range/Units 12:01 12:54 12:54 WBC (4.5-11.0) K/mm3 Hgb (10.1-14.3) gm/dl Hct (30.3-42.9) % MCV (79-97) fl MCH (28-32) pg RDW (13.2-15.2) % Plt Count (140-440) K/mm3 Seg Neuts % (Manual) (40.0-70.0) % Lymphocytes % (Manual) (13.4-35.0) % Seg Neutrophils # Man (1.8-7.7) K/mm3 Lymphocytes # (Manual) (1.2-5.4) K/mm3 ABG pH (7.350-7.450) pH Units POC ABG pO2 (83-108) mmHg ABG pO2 (80.0-90.0) mm Hg ABG Base Excess (-2.0-3.0) mmol/L ABG Hemoglobin (12.0-16.0) gm/dl Carboxyhemoglobin (0.5-1.5) Sodium (137-145) mmol/L Potassium (3.6-5.0) mmol/L Chloride (98-107) mmol/L Carbon Dioxide (22-30) mmol/L Creatinine (0.6-1.2) mg/dL Glucose (65-100) mg/dL POC Glucose 382 H (70-105) mg/dL Hemoglobin A1c 11.1 H (4-6) % Lactic Acid (0.7-2.0) mmol/L Calcium (8.4-10.2) mg/dL Phosphorus 1.40 L (2.5-4.5) mg/dL Magnesium 1.30 L (1.7-2.3) mg/dL 02/01/22 02/01/22 02/01/22 Range/Units 12:54 13:27 14:48 WBC (4.5-11.0) K/mm3 Hgb (10.1-14.3) gm/dl Hct (30.3-42.9) % MCV (79-97) fl MCH (28-32) pg RDW (13.2-15.2) % Plt Count (140-440) K/mm3 Seg Neuts % (Manual) (40.0-70.0) % Lymphocytes % (Manual) (13.4-35.0) % Seg Neutrophils # Man (1.8-7.7) K/mm3 Lymphocytes # (Manual) (1.2-5.4) K/mm3 ABG pH (7.350-7.450) pH Units POC ABG pO2 (83-108) mmHg ABG pO2 (80.0-90.0) mm Hg ABG Base Excess (-2.0-3.0) mmol/L ABG Hemoglobin (12.0-16.0) gm/dl Carboxyhemoglobin (0.5-1.5) Sodium 148 H D (137-145) mmol/L Potassium 3.0 L D (3.6-5.0) mmol/L Chloride 117.3 H (98-107) mmol/L Carbon Dioxide 9 L* (22-30) mmol/L Creatinine (0.6-1.2) mg/dL Glucose 439 H (65-100) mg/dL POC Glucose 342 H 394 H (70-105) mg/dL Hemoglobin A1c (4-6) % Lactic Acid (0.7-2.0) mmol/L Calcium 7.7 L (8.4-10.2) mg/dL Phosphorus (2.5-4.5) mg/dL Magnesium (1.7-2.3) mg/dL 02/01/22 02/01/22 02/01/22 Range/Units 15:48 16:54 18:23 WBC (4.5-11.0) K/mm3 Hgb (10.1-14.3) gm/dl Hct (30.3-42.9) % MCV (79-97) fl MCH (28-32) pg RDW (13.2-15.2) % Plt Count (140-440) K/mm3 Seg Neuts % (Manual) (40.0-70.0) % Lymphocytes % (Manual) (13.4-35.0) % Seg Neutrophils # Man (1.8-7.7) K/mm3 Lymphocytes # (Manual) (1.2-5.4) K/mm3 ABG pH (7.350-7.450) pH Units POC ABG pO2 (83-108) mmHg ABG pO2 (80.0-90.0) mm Hg ABG Base Excess (-2.0-3.0) mmol/L ABG Hemoglobin (12.0-16.0) gm/dl Carboxyhemoglobin (0.5-1.5) Sodium (137-145) mmol/L Potassium (3.6-5.0) mmol/L Chloride (98-107) mmol/L Carbon Dioxide (22-30) mmol/L Creatinine (0.6-1.2) mg/dL Glucose (65-100) mg/dL POC Glucose 412 H 352 H 350 H (70-105) mg/dL Hemoglobin A1c (4-6) % Lactic Acid (0.7-2.0) mmol/L Calcium (8.4-10.2) mg/dL Phosphorus (2.5-4.5) mg/dL Magnesium (1.7-2.3) mg/dL 02/01/22 02/01/22 02/01/22 Range/Units 18:53 19:26 20:20 WBC (4.5-11.0) K/mm3 Hgb (10.1-14.3) gm/dl Hct (30.3-42.9) % MCV (79-97) fl MCH (28-32) pg RDW (13.2-15.2) % Plt Count (140-440) K/mm3 Seg Neuts % (Manual) (40.0-70.0) % Lymphocytes % (Manual) (13.4-35.0) % Seg Neutrophils # Man (1.8-7.7) K/mm3 Lymphocytes # (Manual) (1.2-5.4) K/mm3 ABG pH 7.331 L (7.350-7.450) pH Units POC ABG pO2 (83-108) mmHg ABG pO2 121.4 H (80.0-90.0) mm Hg ABG Base Excess -4.9 L (-2.0-3.0) mmol/L ABG Hemoglobin 8.4 L (12.0-16.0) gm/dl Carboxyhemoglobin (0.5-1.5) Sodium (137-145) mmol/L Potassium (3.6-5.0) mmol/L Chloride (98-107) mmol/L Carbon Dioxide (22-30) mmol/L Creatinine (0.6-1.2) mg/dL Glucose (65-100) mg/dL POC Glucose 260 H 266 H (70-105) mg/dL Hemoglobin A1c (4-6) % Lactic Acid (0.7-2.0) mmol/L Calcium (8.4-10.2) mg/dL Phosphorus (2.5-4.5) mg/dL Magnesium (1.7-2.3) mg/dL 02/01/22 02/01/22 02/01/22 Range/Units 21:38 22:41 23:39 WBC (4.5-11.0) K/mm3 Hgb (10.1-14.3) gm/dl Hct (30.3-42.9) % MCV (79-97) fl MCH (28-32) pg RDW (13.2-15.2) % Plt Count (140-440) K/mm3 Seg Neuts % (Manual) (40.0-70.0) % Lymphocytes % (Manual) (13.4-35.0) % Seg Neutrophils # Man (1.8-7.7) K/mm3 Lymphocytes # (Manual) (1.2-5.4) K/mm3 ABG pH (7.350-7.450) pH Units POC ABG pO2 (83-108) mmHg ABG pO2 (80.0-90.0) mm Hg ABG Base Excess (-2.0-3.0) mmol/L ABG Hemoglobin (12.0-16.0) gm/dl Carboxyhemoglobin (0.5-1.5) Sodium (137-145) mmol/L Potassium (3.6-5.0) mmol/L Chloride (98-107) mmol/L Carbon Dioxide (22-30) mmol/L Creatinine (0.6-1.2) mg/dL Glucose (65-100) mg/dL POC Glucose 195 H 150 H 125 H (70-105) mg/dL Hemoglobin A1c (4-6) % Lactic Acid (0.7-2.0) mmol/L Calcium (8.4-10.2) mg/dL Phosphorus (2.5-4.5) mg/dL Magnesium (1.7-2.3) mg/dL 02/02/22 02/02/22 02/02/22 Range/Units 00:25 00:25 04:00 WBC 1.4 L* (4.5-11.0) K/mm3 Hgb 8.5 L (10.1-14.3) gm/dl Hct 26.8 L D (30.3-42.9) % MCV 57 L (79-97) fl MCH 18 L (28-32) pg RDW 19.0 H (13.2-15.2) % Plt Count 129 L (140-440) K/mm3 Seg Neuts % (Manual) 33.0 L (40.0-70.0) % Lymphocytes % (Manual) 57.0 H (13.4-35.0) % Seg Neutrophils # Man 0.5 L (1.8-7.7) K/mm3 Lymphocytes # (Manual) 0.8 L (1.2-5.4) K/mm3 ABG pH (7.350-7.450) pH Units POC ABG pO2 (83-108) mmHg ABG pO2 (80.0-90.0) mm Hg ABG Base Excess (-2.0-3.0) mmol/L ABG Hemoglobin (12.0-16.0) gm/dl Carboxyhemoglobin (0.5-1.5) Sodium 156 H D (137-145) mmol/L Potassium 3.0 L (3.6-5.0) mmol/L Chloride 114.2 H (98-107) mmol/L Carbon Dioxide (22-30) mmol/L Creatinine 0.5 L (0.6-1.2) mg/dL Glucose 63 L (65-100) mg/dL POC Glucose (70-105) mg/dL Hemoglobin A1c (4-6) % Lactic Acid 7.10 H* (0.7-2.0) mmol/L Calcium 8.1 L (8.4-10.2) mg/dL Phosphorus (2.5-4.5) mg/dL Magnesium (1.7-2.3) mg/dL 02/02/22 02/02/22 02/02/22 Range/Units 04:00 04:35 04:37 WBC (4.5-11.0) K/mm3 Hgb (10.1-14.3) gm/dl Hct (30.3-42.9) % MCV (79-97) fl MCH (28-32) pg RDW (13.2-15.2) % Plt Count (140-440) K/mm3 Seg Neuts % (Manual) (40.0-70.0) % Lymphocytes % (Manual) (13.4-35.0) % Seg Neutrophils # Man (1.8-7.7) K/mm3 Lymphocytes # (Manual) (1.2-5.4) K/mm3 ABG pH (7.350-7.450) pH Units POC ABG pO2 (83-108) mmHg ABG pO2 (80.0-90.0) mm Hg ABG Base Excess (-2.0-3.0) mmol/L ABG Hemoglobin (12.0-16.0) gm/dl Carboxyhemoglobin (0.5-1.5) Sodium 155 H (137-145) mmol/L Potassium (3.6-5.0) mmol/L Chloride 113.1 H (98-107) mmol/L Carbon Dioxide (22-30) mmol/L Creatinine (0.6-1.2) mg/dL Glucose 159 H (65-100) mg/dL POC Glucose 116 H (70-105) mg/dL Hemoglobin A1c (4-6) % Lactic Acid 3.10 H* (0.7-2.0) mmol/L Calcium 7.6 L (8.4-10.2) mg/dL Phosphorus (2.5-4.5) mg/dL Magnesium (1.7-2.3) mg/dL 02/02/22 02/02/22 02/02/22 Range/Units 04:49 05:43 06:52 WBC (4.5-11.0) K/mm3 Hgb (10.1-14.3) gm/dl Hct (30.3-42.9) % MCV (79-97) fl MCH (28-32) pg RDW (13.2-15.2) % Plt Count (140-440) K/mm3 Seg Neuts % (Manual) (40.0-70.0) % Lymphocytes % (Manual) (13.4-35.0) % Seg Neutrophils # Man (1.8-7.7) K/mm3 Lymphocytes # (Manual) (1.2-5.4) K/mm3 ABG pH 7.528 H (7.350-7.450) pH Units POC ABG pO2 79.9 L (83-108) mmHg ABG pO2 (80.0-90.0) mm Hg ABG Base Excess (-2.0-3.0) mmol/L ABG Hemoglobin 8.8 L (12.0-16.0) gm/dl Carboxyhemoglobin 0.2 L (0.5-1.5) Sodium (137-145) mmol/L Potassium (3.6-5.0) mmol/L Chloride (98-107) mmol/L Carbon Dioxide (22-30) mmol/L Creatinine (0.6-1.2) mg/dL Glucose (65-100) mg/dL POC Glucose 125 H 110 H (70-105) mg/dL Hemoglobin A1c (4-6) % Lactic Acid (0.7-2.0) mmol/L Calcium (8.4-10.2) mg/dL Phosphorus (2.5-4.5) mg/dL Magnesium (1.7-2.3) mg/dL 02/02/22 02/02/22 02/02/22 Range/Units 09:02 09:05 09:05 WBC (4.5-11.0) K/mm3 Hgb (10.1-14.3) gm/dl Hct (30.3-42.9) % MCV (79-97) fl MCH (28-32) pg RDW (13.2-15.2) % Plt Count (140-440) K/mm3 Seg Neuts % (Manual) (40.0-70.0) % Lymphocytes % (Manual) (13.4-35.0) % Seg Neutrophils # Man (1.8-7.7) K/mm3 Lymphocytes # (Manual) (1.2-5.4) K/mm3 ABG pH (7.350-7.450) pH Units POC ABG pO2 (83-108) mmHg ABG pO2 (80.0-90.0) mm Hg ABG Base Excess (-2.0-3.0) mmol/L ABG Hemoglobin (12.0-16.0) gm/dl Carboxyhemoglobin (0.5-1.5) Sodium 154 H (137-145) mmol/L Potassium 3.3 L (3.6-5.0) mmol/L Chloride 113.3 H (98-107) mmol/L Carbon Dioxide (22-30) mmol/L Creatinine (0.6-1.2) mg/dL Glucose 35 L* (65-100) mg/dL POC Glucose 35 L (70-105) mg/dL Hemoglobin A1c (4-6) % Lactic Acid 7.10 H* (0.7-2.0) mmol/L Calcium 7.4 L (8.4-10.2) mg/dL Phosphorus 1.70 L D (2.5-4.5) mg/dL Magnesium 2.50 H (1.7-2.3) mg/dL 02/02/22 02/02/22 02/02/22 Range/Units 09:30 09:41 10:17 WBC 2.6 L (4.5-11.0) K/mm3 Hgb 8.0 L (10.1-14.3) gm/dl Hct 25.0 L (30.3-42.9) % MCV 57 L (79-97) fl MCH 18 L (28-32) pg RDW 18.8 H (13.2-15.2) % Plt Count 97 L (140-440) K/mm3 Seg Neuts % (Manual) (40.0-70.0) % Lymphocytes % (Manual) (13.4-35.0) % Seg Neutrophils # Man (1.8-7.7) K/mm3 Lymphocytes # (Manual) (1.2-5.4) K/mm3 ABG pH (7.350-7.450) pH Units POC ABG pO2 (83-108) mmHg ABG pO2 (80.0-90.0) mm Hg ABG Base Excess (-2.0-3.0) mmol/L ABG Hemoglobin (12.0-16.0) gm/dl Carboxyhemoglobin (0.5-1.5) Sodium (137-145) mmol/L Potassium (3.6-5.0) mmol/L Chloride (98-107) mmol/L Carbon Dioxide (22-30) mmol/L Creatinine (0.6-1.2) mg/dL Glucose (65-100) mg/dL POC Glucose 119 H 120 H (70-105) mg/dL Hemoglobin A1c (4-6) % Lactic Acid (0.7-2.0) mmol/L Calcium (8.4-10.2) mg/dL Phosphorus (2.5-4.5) mg/dL Magnesium (1.7-2.3) mg/dL Medications & Allergies - Medications Allergies/Adverse Reactions: Allergies No Known Allergies Allergy (Verified 01/31/22 17:55) Active Medications: Generic Name Dose Route Start Last Admin Trade Name Freq PRN Reason Stop Dose Admin Acetaminophen 650 mg 02/01/22 00:57 Acetaminophen 325 Mg Tab PO Q4H PRN Pain MILD(1-3)/Fever >100.5/ROSADO Albuterol 2.5 mg 02/01/22 00:57 Albuterol 2.5 Mg/3 Ml Nebu IH Q3HRT PRN Shortness Of Breath Albuterol/Ipratropium 1 ampul 02/01/22 05:30 02/01/22 05:42 Ipratropium/Albuterol Sulfate 3 Ml Ampul.Neb IH 1 ampul Q4HRT PRN Administration Dyspnea Lipase/Protease/Amylase 1 each 02/02/22 08:08 Lipase 10,500/Protease 25,000/Amylase 43,750 (Units) Dr Avelar FEEDTUBE PRN PRN For Clogged Feeding Tube Dextrose 50 ml 02/02/22 08:00 02/02/22 09:03 Dextrose 50% In Water (25gm) 50 Ml Syringe IV 50 ml Q30MIN PRN Administration Hypoglycemia Protocol Famotidine 20 mg 02/01/22 10:00 02/02/22 09:59 Famotidine 20 Mg/2 Ml Inj IV 20 mg BID JAMIL Administration Fentanyl 50 mcg 02/02/22 09:45 Fentanyl 100 Mcg/2 Ml Inj IV Q10MIN PRN ANALGESIA Hydrophilic Ointment 1 applic 02/01/22 18:52 Lip Therapy Vaseline TP Q2HR PRN Dry Lips Cefepime HCl 2 gm in 100 mls @ 200 mls/hr 02/01/22 17:00 02/02/22 07:09 Cefepime/Ns 2 Gm/100 Ml IV 200 mls/hr Q12H JAMIL Administration Protocol NORepinephrine/NS 8 MG-250 ML 8 mg in 250 mls @ 3.75 mls/hr 02/01/22 20:00 02/02/22 04:05 Norepinephrine/Ns 8 Mg-250 Ml (Double Conc) IV 6 mcg/min TITRATE JAMIL 11.25 mls/hr Titration Protocol 2 MCG/MIN Propofol 1,000 mg in 100 mls @ 1.429 mls/hr 02/01/22 19:17 02/02/22 08:49 Diprivan 10 Mg/Ml IV 20 mcg/kg/min TITR JAMIL 5.715 mls/hr Administration Protocol 5 MCG/KG/MIN Fentanyl Citrate 2,000 mcg in 100 mls @ 2.381 mls/hr 02/02/22 10:00 Fentanyl Drip Premix IV TITR JAMIL Protocol 1 MCG/KG/HR Potassium Phosphate 45 mmol/ 515 mls @ 85 mls/hr 02/02/22 10:36 Sodium Chloride IV 02/02/22 16:39 ONCE ONE Insulin Glargine 15 units 02/02/22 09:49 Insulin Glargine 100 Units/Ml SUB-Q QAMDIAB JAMIL Insulin Human Regular 0 units 02/02/22 08:00 Insulin Regular, Human 100 Units/1 Ml SUB-Q Q6H [facility] Protocol Morphine Sulfate 2 mg 02/01/22 00:57 02/02/22 02:31 Morphine 2 Mg/1 Ml Inj IV 2 mg Q4H PRN Administration Pain, Moderate (4-6) Morphine Sulfate 4 mg 02/01/22 00:57 02/01/22 20:04 Morphine 4 Mg/1 Ml Inj IV 4 mg Q4H PRN Administration Pain , Severe (7-10) Multi-Ingred Cream/Lotion/Oil/Oint 1 applic 02/01/22 18:52 Mineral Oil/Petrolatum, White Ophth Oint 3.5 Gm OU Q4HR PRN Dry Eye(s) Ondansetron HCl 4 mg 02/01/22 00:57 Ondansetron 4 Mg/2 Ml Inj IV Q8H PRN Nausea And Vomiting Simple Syrup 15 ml 02/02/22 08:08 Simple Syrup 15 Ml FEEDTUBE PRN PRN Hypoglycemia Simple Syrup 30 ml 02/02/22 08:08 Simple Syrup 15 Ml FEEDTUBE PRN PRN Hypoglycemia Sodium Bicarbonate 325 mg 02/02/22 08:08 Sodium Bicarbonate 325 Mg Tab FEEDTUBE PRN PRN For Clogged Feeding Tube Sodium Chloride 10 ml 02/01/22 10:00 02/02/22 09:59 Sodium Chloride 0.9% 10 Ml Flush Syringe IV 10 ml BID JAMIL Administration Sodium Chloride 10 ml 02/01/22 00:57 Sodium Chloride 0.9% 10 Ml Flush Syringe IV PRN PRN LINE FLUSH
[2022-02-02] MEDS: fentaNYL DRIP Premix 2,000 MCG/100 ML BAG IV SCH (11:04)
[2022-02-02 11:24] LABS: Band Neutrophils # (Manual) 0.5 K/mm3; Basophils % (Manual) 0 % (0.0-1.8); Total Cells Counted 50
[2022-02-02 11:25] LABS: Anisocytosis 1+; Hypochromasia 3+; Poikilocytosis 2+; Target Cells 1+
[2022-02-02 11:26] LABS: Burr Cells Few; Ovalocytes Few; Platelet Estimate Consistent w Auto; Tear Drop Cells Few
[2022-02-02] MEDS: NORepinephrine/NS 8 MG-250 ML 8 MG/250 ML INFUS..BTL IV SCH (11:45)
--- NOTE | 2022-02-02 12:06 | Progress Note ---
<RADHA GONZALEZ - Last Filed: 02/02/22 12:16> History Interval history: This is a 61-year-old female is a resident of a shelter with DM,, dementia (possibly [place] per daughter), hyperlipidemia, and hypertension who presents to the hospital on 01/31 from [facility] for hypoglycemia. In the ED patient was found to be tachycardic, tachypneic and lab work showed hyperkalemia, hyperchloremia, high anion gap metabolic acidosis with leukocytosis and UA showed pyuria. Patient was admitted to the hospitalist service. Hospital course to date: 02/01: patient was transferred to ICU as lab work was consistent with DKA and started on insulin drip. Central line placed for IV access. Patient was given bicarb push and started on a bicarb drip. She was also started on Rocephin due to UTI however antibiotics are broadened to cefepime and vancomycin. 02/02: s/p cardiac arrest on 02/01. Bicarbonate drip discontinued. Pancytopenia noted, anion gap closed and transitioned to SSI and long-acting insulin. Patient was having hypoglycemia this morning which has been corrected now. Started on tube feeding. Potassium and phosphorus will be repleted. Hypernatremia noted and FWF started with tube feedings. COVID-19 PCR pending. Venous Doppler ultrasound pending. Neurology and cardiology consulted. Echocardiogram pending. Patient currently on Levophed and sedated with propofol. Fentanyl added. Given 1 LR bolus this morning for hypotension. This is a 61 year old female with DM, Dementia, HLD, HTN admitted with DKA s/p cardiac arrest on 02/01 Neuro: Acute metabolic encephalopathy, h/o dementia -Sedated with --- -RASS goal --- -Reorientation as needed -Maintain sleep-wake cycle -aspiration/seizure precautions -As needed analgesia -CT head --- -Neurology consulted, appreciate recommendations Cardiac: -Cardiology consulted, appreciate recommendations -Blood pressure monitoring per protocol -Vasopressor support with -- -MAP goal greater than 65 -Echocardiogram pending Respiratory: Acute hypoxic/hypercapnic respiratory failure -[facility] consulted, appreciate recommendations -Intubated on ---- with OETT at --- lips -A.m. vent settings: -See RT notes for titration -A.m. ABG and CXR noted -VAP bundle -SPO2 monitoring GI: -24 hours -PPI -NTR consulted for tube feedings -BR: -Trend xx : -Nephrology consulted, appreciate recommendations -Strict intake and output -Renally dose medications -Avoid nephrotoxic medications -FeNa 0---- -Renal ultrasound --- ID: -Infectious disease consulted, appreciate recommendation -Antibiotic therapy with xxxx -x/x precautions -f/u blood culture -Monitor WBC and temperature curve Endo: -Avoid hypoglycemia -SSI -Accu-Cheks q. xxx -Long-acting insulin, titrate as needed Heme: -Trend CBC -Transfuse hemoglobin less than 7 -SCDs to BLE while in bed Hospitalist Physical - Constitutional Vitals: Temp Pulse Resp BP Pulse Ox 97.6 F 114 H 28 H 104/53 96 02/02/22 10:26 02/02/22 10:11 02/02/22 10:11 02/02/22 10:11 02/02/22 10:11 Results - Labs CBC & Chem 7: 02/02/22 09:41 02/02/22 09:05 Labs: Laboratory Last Values WBC 2.6 K/mm3 (4.5-11.0) L 02/02/22 09:41 RBC 4.38 M/mm3 (3.65-5.03) 02/02/22 09:41 Hgb 8.0 gm/dl (10.1-14.3) L 02/02/22 09:41 Hct 25.0 % (30.3-42.9) L 02/02/22 09:41 MCV 57 fl (79-97) L 02/02/22 09:41 MCH 18 pg (28-32) L 02/02/22 09:41 MCHC 32 % (30-34) 02/02/22 09:41 RDW 18.8 % (13.2-15.2) H 02/02/22 09:41 Plt Count 97 K/mm3 (140-440) L 02/02/22 09:41 Lymph % (Auto) [employer] 02/02/22 04:00 Add Manual Diff Complete 02/02/22 09:41 Total Counted 50 02/02/22 09:41 Seg Neutrophils % [employer] 02/02/22 04:00 Seg Neuts % (Manual) 64.0 % (40.0-70.0) 02/02/22 09:41 Band Neutrophils % 20.0 % 02/02/22 09:41 Lymphocytes % (Manual) 12.0 % (13.4-35.0) L 02/02/22 09:41 Reactive Lymphs % (Man) 0 % 02/02/22 09:41 Monocytes % (Manual) 2.0 % (0.0-7.3) 02/02/22 09:41 Eosinophils % (Manual) 2.0 % (0.0-4.3) 02/02/22 09:41 Basophils % (Manual) 0 % (0.0-1.8) 02/02/22 09:41 Metamyelocytes % 0 % 02/02/22 09:41 Myelocytes % 0 % 02/02/22 09:41 Promyelocytes % 0 % 02/02/22 09:41 Blast Cells % 0 % 02/02/22 09:41 Nucleated RBC % 10.0 % (0.0-0.9) H 02/02/22 09:41 Seg Neutrophils # Man 1.7 K/mm3 (1.8-7.7) L 02/02/22 09:41 Band Neutrophils # 0.5 K/mm3 02/02/22 09:41 Lymphocytes # (Manual) 0.3 K/mm3 (1.2-5.4) L 02/02/22 09:41 Abs React Lymphs (Man) 0.0 K/mm3 02/02/22 09:41 Monocytes # (Manual) 0.1 K/mm3 (0.0-0.8) 02/02/22 09:41 Eosinophils # (Manual) 0.1 K/mm3 (0.0-0.4) 02/02/22 09:41 Basophils # (Manual) 0.0 K/mm3 (0.0-0.1) 02/02/22 09:41 Metamyelocytes # 0.0 K/mm3 02/02/22 09:41 Myelocytes # 0.0 K/mm3 02/02/22 09:41 Promyelocytes # 0.0 K/mm3 02/02/22 09:41 Blast Cells # 0.0 K/mm3 02/02/22 09:41 WBC Morphology Not Reportable 02/02/22 09:41 Hypersegmented Neuts Not Reportable 02/02/22 09:41 Hyposegmented Neuts Not Reportable 02/02/22 09:41 Hypogranular Neuts Not Reportable 02/02/22 09:41 Smudge Cells Not Reportable 02/02/22 09:41 Toxic Granulation Not Reportable 02/02/22 09:41 Toxic Vacuolation Not Reportable 02/02/22 09:41 Dohle Bodies Not Reportable 02/02/22 09:41 Pelger-Huet Anomaly Not Reportable 02/02/22 09:41 Sung Rods Not Reportable 02/02/22 09:41 Platelet Estimate Consistent w auto 02/02/22 09:41 Clumped Platelets Not Reportable 02/02/22 09:41 Plt Clumps, EDTA Not Reportable 02/02/22 09:41 Large Platelets Not Reportable 02/02/22 09:41 Giant Platelets Not Reportable 02/02/22 09:41 Platelet Satelliting Not Reportable 02/02/22 09:41 Plt Morphology Comment Not Reportable 02/02/22 09:41 RBC Morphology Not Reportable 02/02/22 09:41 Dimorphic RBCs Not Reportable 02/02/22 09:41 Polychromasia Not Reportable 02/02/22 09:41 Hypochromasia 3+ 02/02/22 09:41 Poikilocytosis 2+ 02/02/22 09:41 Anisocytosis 1+ 02/02/22 09:41 Microcytosis 2+ 02/02/22 09:41 Macrocytosis Not Reportable 02/02/22 09:41 Spherocytes Not Reportable 02/02/22 09:41 Pappenheimer Bodies Not Reportable 02/02/22 09:41 Sickle Cells Not Reportable 02/02/22 09:41 Target Cells 1+ 02/02/22 09:41 Tear Drop Cells Few 02/02/22 09:41 Ovalocytes Few 02/02/22 09:41 Helmet Cells Not Reportable 02/02/22 09:41 [place] Bodies Not Reportable 02/02/22 09:41 [place] Rings Not Reportable 02/02/22 09:41 [place] Cells Few 02/02/22 09:41 Bite Cells Not Reportable 02/02/22 09:41 Crenated Cell Not Reportable 02/02/22 09:41 Elliptocytes Few 02/02/22 09:41 Acanthocytes (Spur) Not Reportable 02/02/22 09:41 Rouleaux Not Reportable 02/02/22 09:41 Hemoglobin C Crystals Not Reportable 02/02/22 09:41 Schistocytes Not Reportable 02/02/22 09:41 Malaria parasites Not Reportable 02/02/22 09:41 Sven Bodies Not Reportable 02/02/22 09:41 Hem Pathologist Commnt No 02/02/22 09:41 ABG pH 7.528 (7.320-7.450) H 02/02/22 04:49 POC ABG pCO2 37.3 mmHg (32.0-48.0) 02/02/22 04:49 ABG pCO2 40.0 mm Hg 02/01/22 18:53 POC ABG pO2 79.9 mmHg (83-108) L 02/02/22 04:49 ABG pO2 121.4 mm Hg (80.0-90.0) H 02/01/22 18:53 POC ABG HCO3 30.3 02/02/22 04:49 ABG HCO3 20.6 mmol/L (20.0-26.0) 02/01/22 18:53 ABG O2 Saturation 96.5 (0-100) 02/02/22 04:49 ABG O2 Content 11.7 (0.0-44) 02/01/22 18:53 POC ABG Base Excess 7.1 02/02/22 04:49 ABG Base Excess -4.9 mmol/L (-2.0-3.0) L 02/01/22 18:53 ABG Hemoglobin 8.8 (12.0-17.5) L 02/02/22 04:49 ABG Oxyhemoglobin 96.0 (94-98) 02/02/22 04:49 ABG Carboxyhemoglobin 1.0 % (0.0-5.0) 02/01/22 18:53 ABG Methemoglobin 0.3 (0.0-1.5) 02/02/22 04:49 ABG Sodium Not Reportable 02/02/22 04:49 ABG Potassium Not Reportable 02/02/22 04:49 ABG Chloride Not Reportable 02/02/22 04:49 ABG Glucose Not Reportable 02/02/22 04:49 Oxyhemoglobin 96.7 % (95.0-99.0) 02/01/22 18:53 Carboxyhemoglobin 0.2 (0.5-1.5) L 02/02/22 04:49 FiO2 100 % 02/01/22 18:53 FiO2 % 60.0 02/02/22 04:49 Sodium 154 mmol/L (137-145) H 02/02/22 09:05 Potassium 3.3 mmol/L (3.6-5.0) L 02/02/22 09:05 Chloride 113.3 mmol/L (98-107) H 02/02/22 09:05 Carbon Dioxide 30 mmol/L (22-30) 02/02/22 09:05 Anion Gap 14 mmol/L 02/02/22 09:05 BUN 10 mg/dL (7-17) 02/02/22 09:05 Creatinine 0.7 mg/dL (0.6-1.2) 02/02/22 09:05 Estimated GFR > 60 ml/min 02/02/22 09:05 BUN/Creatinine Ratio 13 % 02/02/22 09:05 Glucose 35 mg/dL (65-100) L* 02/02/22 09:05 POC Glucose 120 mg/dL (70-105) H 02/02/22 10:17 Hemoglobin A1c 11.1 % (4-6) H 02/01/22 12:54 Lactic Acid 7.10 mmol/L (0.7-2.0) H* 02/02/22 09:05 Calcium 7.4 mg/dL (8.4-10.2) L 02/02/22 09:05 Phosphorus 1.70 mg/dL (2.5-4.5) L D 02/02/22 09:05 Magnesium 2.50 mg/dL (1.7-2.3) H 02/02/22 09:05 Total Bilirubin 0.70 mg/dL (0.1-1.2) 01/31/22 20:33 AST 20 units/L (5-40) 01/31/22 20:33 ALT 10 units/L (7-56) 01/31/22 20:33 Alkaline Phosphatase 103 units/L (35-129) 01/31/22 20:33 Total Protein 7.4 g/dL (6.3-8.2) 01/31/22 20:33 Albumin 4.4 g/dL (3.9-5) 01/31/22 20:33 Albumin/Globulin Ratio 1.5 % 01/31/22 20:33 Arterial Blood Glucose Not Reportable 02/02/22 04:49 Urine Color Yellow (Yellow) 01/31/22 22:49 Urine Turbidity Hazy (Clear) 01/31/22 22:49 Urine pH 5.0 (5.0-7.0) 01/31/22 22:49 Ur Specific [place] 1.035 (1.003-1.030) H 01/31/22 22:49 Urine Protein 100 mg/dl mg/dL (Negative) 01/31/22 22:49 Urine Glucose (UA) Negative mg/dL (Negative) 01/31/22 22:49 Urine Ketones 300 mg/dL (Negative) 01/31/22 22:49 Urine Blood Small (Negative) A 01/31/22 22:49 Urine Nitrite Negative (Negative) 01/31/22 22:49 Ur Reducing Substances Not Reportable 01/31/22 22:49 Urine Bilirubin Negative (Negative) 01/31/22 22:49 Urine Ictotest Not Reportable 01/31/22 22:49 Urine Urobilinogen < 2.0 mg/dL (<2.0) 01/31/22 22:49 Ur Leukocyte Esterase Negative (Negative) 01/31/22 22:49 Urine WBC (Auto) 142.0 /HPF (0.0-6.0) H 01/31/22 22:49 Urine RBC (Auto) 107.0 /HPF (0.0-6.0) 01/31/22 22:49 U Epithel Cells (Auto) 1.0 /HPF (0-13.0) 01/31/22 22:49 Urine Mucus Few /HPF 01/31/22 22:49 Urine Yeast (Budding) 3+ /HPF 01/31/22 22:49 SARS-CoV-2 (PCR) Negative (Negative) 02/01/22 08:50 Microbiology: Microbiology 01/31/22 20:33 Peripheral/Venous Blood Culture - Preliminary NO GROWTH AFTER 24 HOURS 01/31/22 20:33 Peripheral/Venous Blood Culture - Preliminary NO GROWTH AFTER 24 HOURS Gastelum/IV: Voiding Method External Female Catheter Active Medications - Current Medications Current Medications: Generic Name Dose Route Start Last Admin Trade Name Freq PRN Reason Stop Dose Admin Acetaminophen 650 mg 02/01/22 00:57 Acetaminophen 325 Mg Tab PO Q4H PRN Pain MILD(1-3)/Fever >100.5/ROSADO Albuterol 2.5 mg 02/01/22 00:57 Albuterol 2.5 Mg/3 Ml Nebu IH Q3HRT PRN Shortness Of Breath Albuterol/Ipratropium 1 ampul 02/01/22 05:30 02/01/22 05:42 Ipratropium/Albuterol Sulfate 3 Ml Ampul.Neb IH 1 ampul Q4HRT PRN Administration Dyspnea Lipase/Protease/Amylase 1 each 02/02/22 08:08 Lipase 10,500/Protease 25,000/Amylase 43,750 (Units) Dr Avelar FEEDTUBE PRN PRN For Clogged Feeding Tube Dextrose 50 ml 02/02/22 08:00 02/02/22 09:03 Dextrose 50% In Water (25gm) 50 Ml Syringe IV 50 ml Q30MIN PRN Administration Hypoglycemia Protocol Famotidine 20 mg 02/01/22 10:00 02/02/22 09:59 Famotidine 20 Mg/2 Ml Inj IV 20 mg BID JAMIL Administration Fentanyl 50 mcg 02/02/22 09:45 Fentanyl 100 Mcg/2 Ml Inj IV Q10MIN PRN ANALGESIA Hydrophilic Ointment 1 applic 02/01/22 18:52 Lip Therapy Vaseline TP Q2HR PRN Dry Lips Cefepime HCl 2 gm in 100 mls @ 200 mls/hr 02/01/22 17:00 02/02/22 07:09 Cefepime/Ns 2 Gm/100 Ml IV 200 mls/hr Q12H JAMIL Administration Protocol NORepinephrine/NS 8 MG-250 ML 8 mg in 250 mls @ 3.75 mls/hr 02/01/22 20:00 02/02/22 11:45 Norepinephrine/Ns 8 Mg-250 Ml (Double Conc) IV 8 mcg/min TITRATE JAMIL 15 mls/hr Administration Protocol 2 MCG/MIN Propofol 1,000 mg in 100 mls @ 1.429 mls/hr 02/01/22 19:17 02/02/22 08:49 Diprivan 10 Mg/Ml IV 20 mcg/kg/min TITR JAMIL 5.715 mls/hr Administration Protocol 5 MCG/KG/MIN Fentanyl Citrate 2,000 mcg in 100 mls @ 2.381 mls/hr 02/02/22 10:00 02/02/22 11:04 Fentanyl Drip Premix IV 1 mcg/kg/hr TITR JAMIL 2.381 mls/hr Administration Protocol 1 MCG/KG/HR Potassium Phosphate 45 mmol/ 515 mls @ 85 mls/hr 02/02/22 10:36 02/02/22 11:10 Sodium Chloride IV 02/02/22 16:39 85 mls/hr ONCE ONE Administration Insulin Glargine 15 units 02/02/22 09:49 Insulin Glargine 100 Units/Ml SUB-Q QAMDIAB [facility] Insulin Human Regular 0 units 02/02/22 08:00 02/02/22 10:56 Insulin Regular, Human 100 Units/1 Ml SUB-Q Not Given Q6H [facility] Protocol Morphine Sulfate 2 mg 02/01/22 00:57 02/02/22 02:31 Morphine 2 Mg/1 Ml Inj IV 2 mg Q4H PRN Administration Pain, Moderate (4-6) Morphine Sulfate 4 mg 02/01/22 00:57 02/01/22 20:04 Morphine 4 Mg/1 Ml Inj IV 4 mg Q4H PRN Administration Pain , Severe (7-10) Multi-Ingred Cream/Lotion/Oil/Oint 1 applic 02/01/22 18:52 Mineral Oil/Petrolatum, White Ophth Oint 3.5 Gm OU Q4HR PRN Dry Eye(s) Ondansetron HCl 4 mg 02/01/22 00:57 Ondansetron 4 Mg/2 Ml Inj IV Q8H PRN Nausea And Vomiting Simple Syrup 15 ml 02/02/22 08:08 Simple Syrup 15 Ml FEEDTUBE PRN PRN Hypoglycemia Simple Syrup 30 ml 02/02/22 08:08 Simple Syrup 15 Ml FEEDTUBE PRN PRN Hypoglycemia Sodium Bicarbonate 325 mg 02/02/22 08:08 Sodium Bicarbonate 325 Mg Tab FEEDTUBE PRN PRN For Clogged Feeding Tube Sodium Chloride 10 ml 02/01/22 10:00 02/02/22 09:59 Sodium Chloride 0.9% 10 Ml Flush Syringe IV 10 ml BID JAMIL Administration Sodium Chloride 10 ml 02/01/22 00:57 Sodium Chloride 0.9% 10 Ml Flush Syringe IV PRN PRN LINE FLUSH Nutrition/Malnutrition Assess - Dietary Evaluation Nutrition/Malnutrition Findings: Nutrition Notes Start: 02/01/22 17:50 Freq: Status: Active Protocol: Document 02/01/22 17:50 JACQUELINE (Rec: 02/01/22 18:11 JACQUELINE [id number]) Nutrition Notes Need for Assessment generated from: Low BMI Initial or Follow up Brief Note Current Diagnosis Diabetes,Sepsis Other Pertinent Diagnosis 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 Current Diet NPO (since 02/01 17:49) Labs/Tests 0729: Na 148, K 3.0, Cl 117.3, CO2 9, Glu 439, Ca 7.7. Pertinent Medications 02/01: Insulin 16U, KPO4 45mmol, others nutritionally unremarkable. 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 Weight Status Underweight Subjective/Other Information RD consult for Low BMI and malnutrition assessments. Pt has been intubated few minutes ago, not enough information available to assess for Low BMI and malnutrition at this time, will assess at F/U. Nutrition Intervention Follow-Up By: 02/04/22 <MELISSA WHITE - Last Filed: 02/03/22 07:17> History Interval history: I saw and evaluated the patient. I agree with the findings and the plan of care as documented in the Nurse Practitioner's~note, with the following corrections and additions. Hospitalist Physical - Constitutional Vitals: Temp Pulse Resp BP Pulse Ox 99.5 F 121 H 16 94/62 98 02/03/22 04:00 02/03/22 06:00 02/03/22 06:00 02/03/22 06:00 02/03/22 06:00 Results - Labs CBC & Chem 7: 02/03/22 04:00 02/03/22 04:00 Labs: Laboratory Last Values WBC 3.7 K/mm3 (4.5-11.0) L 02/03/22 04:00 RBC 4.41 M/mm3 (3.65-5.03) 02/03/22 04:00 Hgb 8.0 gm/dl (10.1-14.3) L 02/03/22 04:00 Hct 25.5 % (30.3-42.9) L 02/03/22 04:00 MCV 58 fl (79-97) L 02/03/22 04:00 MCH 18 pg (28-32) L 02/03/22 04:00 MCHC 32 % (30-34) 02/03/22 04:00 RDW 18.2 % (13.2-15.2) H 02/03/22 04:00 Plt Count 79 K/mm3 (140-440) L 02/03/22 04:00 Lymph % (Auto) [employer] 02/02/22 04:00 Add Manual Diff Complete 02/02/22 09:41 Total Counted 50 02/02/22 09:41 Seg Neutrophils % [employer] 02/02/22 04:00 Seg Neuts % (Manual) 64.0 % (40.0-70.0) 02/02/22 09:41 Band Neutrophils % 20.0 % 02/02/22 09:41 Lymphocytes % (Manual) 12.0 % (13.4-35.0) L 02/02/22 09:41 Reactive Lymphs % (Man) 0 % 02/02/22 09:41 Monocytes % (Manual) 2.0 % (0.0-7.3) 02/02/22 09:41 Eosinophils % (Manual) 2.0 % (0.0-4.3) 02/02/22 09:41 Basophils % (Manual) 0 % (0.0-1.8) 02/02/22 09:41 Metamyelocytes % 0 % 02/02/22 09:41 Myelocytes % 0 % 02/02/22 09:41 Promyelocytes % 0 % 02/02/22 09:41 Blast Cells % 0 % 02/02/22 09:41 Nucleated RBC % 10.0 % (0.0-0.9) H 02/02/22 09:41 Seg Neutrophils # Man 1.7 K/mm3 (1.8-7.7) L 02/02/22 09:41 Band Neutrophils # 0.5 K/mm3 02/02/22 09:41 Lymphocytes # (Manual) 0.3 K/mm3 (1.2-5.4) L 02/02/22 09:41 Abs React Lymphs (Man) 0.0 K/mm3 02/02/22 09:41 Monocytes # (Manual) 0.1 K/mm3 (0.0-0.8) 02/02/22 09:41 Eosinophils # (Manual) 0.1 K/mm3 (0.0-0.4) 02/02/22 09:41 Basophils # (Manual) 0.0 K/mm3 (0.0-0.1) 02/02/22 09:41 Metamyelocytes # 0.0 K/mm3 02/02/22 09:41 Myelocytes # 0.0 K/mm3 02/02/22 09:41 Promyelocytes # 0.0 K/mm3 02/02/22 09:41 Blast Cells # 0.0 K/mm3 02/02/22 09:41 WBC Morphology Not Reportable 02/02/22 09:41 Hypersegmented Neuts Not Reportable 02/02/22 09:41 Hyposegmented Neuts Not Reportable 02/02/22 09:41 Hypogranular Neuts Not Reportable 02/02/22 09:41 Smudge Cells Not Reportable 02/02/22 09:41 Toxic Granulation Not Reportable 02/02/22 09:41 Toxic Vacuolation Not Reportable 02/02/22 09:41 Dohle Bodies Not Reportable 02/02/22 09:41 Pelger-Huet Anomaly Not Reportable 02/02/22 09:41 Sung Rods Not Reportable 02/02/22 09:41 Platelet Estimate Consistent w auto 02/02/22 09:41 Clumped Platelets Not Reportable 02/02/22 09:41 Plt Clumps, EDTA Not Reportable 02/02/22 09:41 Large Platelets Not Reportable 02/02/22 09:41 Giant Platelets Not Reportable 02/02/22 09:41 Platelet Satelliting Not Reportable 02/02/22 09:41 Plt Morphology Comment Not Reportable 02/02/22 09:41 RBC Morphology Not Reportable 02/02/22 09:41 Dimorphic RBCs Not Reportable 02/02/22 09:41 Polychromasia Not Reportable 02/02/22 09:41 Hypochromasia 3+ 02/02/22 09:41 Poikilocytosis 2+ 02/02/22 09:41 Anisocytosis 1+ 02/02/22 09:41 Microcytosis 2+ 02/02/22 09:41 Macrocytosis Not Reportable 02/02/22 09:41 Spherocytes Not Reportable 02/02/22 09:41 Pappenheimer Bodies Not Reportable 02/02/22 09:41 Sickle Cells Not Reportable 02/02/22 09:41 Target Cells 1+ 02/02/22 09:41 Tear Drop Cells Few 02/02/22 09:41 Ovalocytes Few 02/02/22 09:41 Helmet Cells Not Reportable 02/02/22 09:41 [place] Bodies Not Reportable 02/02/22 09:41 [place] Rings Not Reportable 02/02/22 09:41 [place] Cells Few 02/02/22 09:41 Bite Cells Not Reportable 02/02/22 09:41 Crenated Cell Not Reportable 02/02/22 09:41 Elliptocytes Few 02/02/22 09:41 Acanthocytes (Spur) Not Reportable 02/02/22 09:41 Rouleaux Not Reportable 02/02/22 09:41 Hemoglobin C Crystals Not Reportable 02/02/22 09:41 Schistocytes Not Reportable 02/02/22 09:41 Malaria parasites Not Reportable 02/02/22 09:41 Sven Bodies Not Reportable 02/02/22 09:41 Hem Pathologist Commnt No 02/02/22 09:41 ABG pH 7.374 pH Units (7.350-7.450) 02/03/22 04:20 POC ABG pCO2 37.3 mmHg (32.0-48.0) 02/02/22 04:49 ABG pCO2 38.7 mm Hg 02/03/22 04:20 POC ABG pO2 79.9 mmHg (83-108) L 02/02/22 04:49 ABG pO2 75.5 mm Hg (80.0-90.0) L 02/03/22 04:20 POC ABG HCO3 30.3 02/02/22 04:49 ABG HCO3 22.1 mmol/L (20.0-26.0) 02/03/22 04:20 ABG O2 Saturation 96.2 % (95.0-99.0) 02/03/22 04:20 ABG O2 Content 10.9 (0.0-44) 02/03/22 04:20 POC ABG Base Excess 7.1 02/02/22 04:49 ABG Base Excess -2.8 mmol/L (-2.0-3.0) L 02/03/22 04:20 ABG Hemoglobin 8.1 gm/dl (12.0-16.0) L 02/03/22 04:20 ABG Oxyhemoglobin 96.0 (94-98) 02/02/22 04:49 ABG Carboxyhemoglobin 1.0 % (0.0-5.0) 02/03/22 04:20 ABG Methemoglobin 0.6 % (0.0-1.5) 02/03/22 04:20 ABG Sodium Not Reportable 02/02/22 04:49 ABG Potassium Not Reportable 02/02/22 04:49 ABG Chloride Not Reportable 02/02/22 04:49 ABG Glucose Not Reportable 02/02/22 04:49 Oxyhemoglobin 94.6 % (95.0-99.0) L 02/03/22 04:20 Carboxyhemoglobin 0.2 (0.5-1.5) L 02/02/22 04:49 FiO2 75 % 02/03/22 04:20 FiO2 % 60.0 02/02/22 04:49 Sodium 147 mmol/L (137-145) H 02/03/22 04:00 Potassium 4.1 mmol/L (3.6-5.0) D 02/03/22 04:00 Chloride 112.9 mmol/L (98-107) H 02/03/22 04:00 Carbon Dioxide 23 mmol/L (22-30) 02/03/22 04:00 Anion Gap 15 mmol/L 02/03/22 04:00 BUN 15 mg/dL (7-17) 02/03/22 04:00 Creatinine 0.8 mg/dL (0.6-1.2) 02/03/22 04:00 Estimated GFR > 60 ml/min 02/03/22 04:00 BUN/Creatinine Ratio 19 % 02/03/22 04:00 Glucose 281 mg/dL (65-100) H 02/03/22 04:00 POC Glucose 247 mg/dL (70-105) H 02/03/22 05:26 Hemoglobin A1c 11.1 % (4-6) H 02/01/22 12:54 Lactic Acid 2.00 mmol/L (0.7-2.0) 02/02/22 Unknown Calcium 7.8 mg/dL (8.4-10.2) L 02/03/22 04:00 Phosphorus 3.60 mg/dL (2.5-4.5) D 02/03/22 04:00 Magnesium 2.10 mg/dL (1.7-2.3) 02/03/22 04:00 Total Bilirubin 0.50 mg/dL (0.1-1.2) 02/03/22 04:00 Direct Bilirubin 0.3 mg/dL (0-0.2) H 02/03/22 04:00 Indirect Bilirubin 0.2 mg/dL 02/03/22 04:00 AST 172 units/L (5-40) H 02/03/22 04:00 ALT 89 units/L (7-56) H 02/03/22 04:00 Alkaline Phosphatase 105 units/L (35-129) 02/03/22 04:00 Total Protein 4.7 g/dL (6.3-8.2) L D 02/03/22 04:00 Albumin 2.0 g/dL (3.9-5) L 02/03/22 04:00 Albumin/Globulin Ratio 0.7 % 02/03/22 04:00 Arterial Blood Glucose Not Reportable 02/02/22 04:49 Urine Color Yellow (Yellow) 01/31/22 22:49 Urine Turbidity Hazy (Clear) 01/31/22 22:49 Urine pH 5.0 (5.0-7.0) 01/31/22 22:49 Ur Specific [place] 1.035 (1.003-1.030) H 01/31/22 22:49 Urine Protein 100 mg/dl mg/dL (Negative) 01/31/22 22:49 Urine Glucose (UA) Negative mg/dL (Negative) 01/31/22 22:49 Urine Ketones 300 mg/dL (Negative) 01/31/22 22:49 Urine Blood Small (Negative) A 01/31/22 22:49 Urine Nitrite Negative (Negative) 01/31/22 22:49 Ur Reducing Substances Not Reportable 01/31/22 22:49 Urine Bilirubin Negative (Negative) 01/31/22 22:49 Urine Ictotest Not Reportable 01/31/22 22:49 Urine Urobilinogen < 2.0 mg/dL (<2.0) 01/31/22 22:49 Ur Leukocyte Esterase Negative (Negative) 01/31/22 22:49 Urine WBC (Auto) 142.0 /HPF (0.0-6.0) H 01/31/22 22:49 Urine RBC (Auto) 107.0 /HPF (0.0-6.0) 01/31/22 22:49 U Epithel Cells (Auto) 1.0 /HPF (0-13.0) 01/31/22 22:49 Urine Mucus Few /HPF 01/31/22 22:49 Urine Yeast (Budding) 3+ /HPF 01/31/22 22:49 Coronavirus (PCR) Negative (Negative) 02/02/22 10:44 SARS-CoV-2 (PCR) Negative (Negative) 02/01/22 08:50 Microbiology: Microbiology 01/31/22 20:33 Peripheral/Venous Blood Culture - Preliminary NO GROWTH AFTER 48 HOURS 01/31/22 20:33 Peripheral/Venous Blood Culture - Preliminary NO GROWTH AFTER 48 HOURS Gastelum/IV: Voiding Method External Female Catheter Active Medications - Current Medications Current Medications: Generic Name Dose Route Start Last Admin Trade Name Freq PRN Reason Stop Dose Admin Acetaminophen 650 mg 02/01/22 00:57 02/02/22 23:48 Acetaminophen 325 Mg Tab PO 650 mg Q4H PRN Administration Pain MILD(1-3)/Fever >100.5/ROSADO Albuterol 2.5 mg 02/01/22 00:57 Albuterol 2.5 Mg/3 Ml Nebu IH Q3HRT PRN Shortness Of Breath Albuterol/Ipratropium 1 ampul 02/01/22 05:30 02/01/22 05:42 Ipratropium/Albuterol Sulfate 3 Ml Ampul.Neb IH 1 ampul Q4HRT PRN Administration Dyspnea Lipase/Protease/Amylase 1 each 02/02/22 08:08 Lipase 10,500/Protease 25,000/Amylase 43,750 (Units) Dr Cap FEEDTUBE PRN PRN For Clogged Feeding Tube Dextrose 50 ml 02/02/22 08:00 02/02/22 09:03 Dextrose 50% In Water (25gm) 50 Ml Syringe IV 50 ml Q30MIN PRN Administration Hypoglycemia Protocol Famotidine 20 mg 07/29/22 10:00 02/02/22 22:14 Famotidine 20 Mg/2 Ml Inj IV 20 mg BID JAMIL Administration Fentanyl 50 mcg 02/02/22 09:45 Fentanyl 100 Mcg/2 Ml Inj IV Q10MIN PRN ANALGESIA Hydrophilic Ointment 1 applic 02/01/22 18:52 Lip Therapy Vaseline TP Q2HR PRN Dry Lips Cefepime HCl 2 gm in 100 mls @ 200 mls/hr 02/01/22 17:00 02/03/22 05:26 Cefepime/Ns 2 Gm/100 Ml IV 200 mls/hr Q12H JAMIL Administration Protocol NORepinephrine/NS 8 MG-250 ML 8 mg in 250 mls @ 3.75 mls/hr 02/01/22 20:00 02/03/22 06:06 Norepinephrine/Ns 8 Mg-250 Ml (Double Conc) IV 4 mcg/min TITRATE JAMIL 7.5 mls/hr Titration Protocol 2 MCG/MIN Propofol 1,000 mg in 100 mls @ 1.429 mls/hr 02/01/22 19:17 02/03/22 05:30 Diprivan 10 Mg/Ml IV 5 mcg/kg/min TITR JAMIL 1.429 mls/hr Administration Protocol 5 MCG/KG/MIN Fentanyl Citrate 2,000 mcg in 100 mls @ 2.381 mls/hr 02/02/22 10:00 02/03/22 00:26 Fentanyl Drip Premix IV 1 mcg/kg/hr TITR JAMIL 2.381 mls/hr Titration Protocol 1 MCG/KG/HR Vancomycin HCl 750 mg/ Sodium 265 mls @ 166.667 mls/hr 02/02/22 13:00 02/03/22 06:01 Chloride IV Infused Q12H [facility] Infusion Insulin Glargine 15 units 02/02/22 14:00 02/02/22 13:36 Insulin Glargine 100 Units/Ml SUB-Q 15 units QAMDIAB JAMIL Administration Insulin Human Regular 0 units 02/02/22 18:00 02/03/22 05:26 Insulin Regular, Human 100 Units/1 Ml SUB-Q 3 units Q6H JAMIL Administration Protocol Morphine Sulfate 2 mg 02/01/22 00:57 02/02/22 02:31 Morphine 2 Mg/1 Ml Inj IV 2 mg Q4H PRN Administration Pain, Moderate (4-6) Morphine Sulfate 4 mg 02/01/22 00:57 02/01/22 20:04 Morphine 4 Mg/1 Ml Inj IV 4 mg Q4H PRN Administration Pain , Severe (7-10) Multi-Ingred Cream/Lotion/Oil/Oint 1 applic 02/01/22 18:52 Mineral Oil/Petrolatum, White Ophth Oint 3.5 Gm OU Q4HR PRN Dry Eye(s) Ondansetron HCl 4 mg 02/01/22 00:57 Ondansetron 4 Mg/2 Ml Inj IV Q8H PRN Nausea And Vomiting Senna/Docusate Sodium 1 tab 02/02/22 22:00 02/02/22 22:14 Sennosides/Docusate Sodium 8.6/50 Mg Tab FEEDTUBE 1 tab QHS JAMIL Administration Simple Syrup 15 ml 02/02/22 08:08 Simple Syrup 15 Ml FEEDTUBE PRN PRN Hypoglycemia Simple Syrup 30 ml 02/02/22 08:08 Simple Syrup 15 Ml FEEDTUBE PRN PRN Hypoglycemia Sodium Bicarbonate 325 mg 02/02/22 08:08 Sodium Bicarbonate 325 Mg Tab FEEDTUBE PRN PRN For Clogged Feeding Tube Sodium Chloride 10 ml 02/01/22 10:00 02/02/22 22:14 Sodium Chloride 0.9% 10 Ml Flush Syringe IV 10 ml BID JAMIL Administration Sodium Chloride 10 ml 02/01/22 00:57 Sodium Chloride 0.9% 10 Ml Flush Syringe IV PRN PRN LINE FLUSH Nutrition/Malnutrition Assess - Dietary Evaluation Nutrition/Malnutrition Findings: Nutrition Notes Start: 02/01/22 17:50 Freq: Status: Active Protocol: Document 02/01/22 17:50 JACQUELINE (Rec: 02/01/22 18:11 JACQUELINE [id number]) Nutrition Notes Need for Assessment generated from: Low BMI Initial or Follow up Brief Note Current Diagnosis Diabetes,Sepsis Other Pertinent Diagnosis 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 Current Diet NPO (since 02/01 17:49) Labs/Tests 0729: Na 148, K 3.0, Cl 117.3, CO2 9, Glu 439, Ca 7.7. Pertinent Medications 02/01: Insulin 16U, KPO4 45mmol, others nutritionally unremarkable. 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 Weight Status Underweight Subjective/Other Information RD consult for Low BMI and malnutrition assessments. Pt has been intubated few minutes ago, not enough information available to assess for Low BMI and malnutrition at this time, will assess at F/U. Nutrition Intervention Follow-Up By: 02/04/22
--- NOTE | 2022-02-02 12:39 | Progress Note ---
<JUSTINFabioRADHANelson - Last Filed: 02/02/22 14:52> Assessment and Plan Assessment and plan: This is a 61 year old female with DM, Dementia, HLD, HTN admitted with DKA s/p cardiac arrest on 02/01 Neuro: Acute metabolic encephalopathy, h/o dementia -Neurology consulted, appreciate recommendations -Sedated with propofol -Addition of fentanyl -RASS goal 0 to -1 -Reorientation as needed -As needed analgesia Cardiac: s/p PEA cardiac arrest on 02/01, h/o HLD and HTN -Cardiology consulted, appreciate recommendations -Blood pressure monitoring per protocol -Vasopressor support with Levophed -MAP goal greater than 65 -Echocardiogram pending Respiratory: Acute hypoxic respiratory failure -CCM consulted, appreciate recommendations -Intubated on 02/01 with 7.0 OETT at 21 al the lips -A.m. vent settings: Assist-control Rate 12, tidal volume 350, PEEP 6, FiO2 60% -See RT notes for titration -A.m. ABG and CXR noted -VAP bundle -SPO2 monitoring GI: NAD -24 hours -361 mL -PPI -NTR consulted for tube feedings -BR: Senokot S : Hypernatremia, hypokalemia, hyperchloremia, hypophosphatemia -Gastelum was unable to be placed x2 -Monitor intake and -Renally dose medications -Avoid nephrotoxic medications -s/p bicarbonate drip -FWF -Repeat potassium and phosphate -Trend BMP ID: Sepsis, COVID 19 PUI, UTI, lactic acidosis -Presented with tachycardia, leukocytosis, pyuria on UA now with pancytopenia, hypotension -Infectious disease consulted, appreciate recommendation -Antibiotic therapy with cefepime and vancomycin -Contact/isolation precautions -f/u blood culture -Monitor WBC and temperature curve Endo: s/p DKA, h/o DM -Presents with severe metabolic acidosis, blood glucose in 300s -s/p insulin drip -Avoid hypoglycemia -Hemoglobin A1c 11.1 -SSI -Accu-Cheks q. every 6 -Long-acting insulin, titrate as needed Heme: Pancytopenia -Consider hem/onc if not improving -Bilateral lower extremity ultrasound negative for DVT -Trend CBC -Transfuse hemoglobin less than 7 -SCDs to BLE while in bed The high probability of a clinically significant, sudden or life threatening deterioration of the [endocrine, infectious disease] system(s) required my full and direct attention, intervention and personal management. The aggregate critical care time was [60] minutes. This time is in addition to time spent performing reported procedures but includes the following: [x] Data Review and interpretation [x] Patient assessment and monitoring of vital signs [x] Documentation [x] Medication orders and management Disposition Plan: icu Total Time Spent with Patient (Minutes): 60 History Interval history: This is a 61-year-old female is a resident of a group home with DM,, dementia (possibly [place]ernickes per daughter), hyperlipidemia, and hypertension who presents to the hospital on 01/31 from [facility] for hypoglycemia. In the ED patient was found to be tachycardic, tachypneic and lab work showed hyperkalemia, hyperchloremia, high anion gap metabolic acidosis with leukocytosis and UA showed pyuria. Patient was admitted to the hospitalist service. Hospital course to date: 02/01: patient was transferred to ICU as lab work was consistent with DKA and started on insulin drip. Central line placed for IV access. Patient was given bicarb push and started on a bicarb drip. She was also started on Rocephin due to UTI however antibiotics are broadened to cefepime and vancomycin. 02/02: s/p cardiac arrest on 02/01. Bicarbonate drip discontinued. Pancytopenia noted, anion gap closed and transitioned to SSI and long-acting insulin. Patient was having hypoglycemia this morning which has been corrected now. Started on tube feeding. Potassium and phosphorus will be repleted. Hypernatremia noted and FWF started with tube feedings. COVID-19 PCR pending. Venous Doppler ultrasound pending. Neurology and cardiology consulted. Echocardiogram pending. Patient currently on Levophed and sedated with propofol. Fentanyl added. Given 1 LR bolus this morning for hypotension. Hospitalist Physical - Constitutional Vitals: Temp Pulse Resp BP Pulse Ox 97.6 F 108 H 26 H 91/52 91 02/02/22 10:26 02/02/22 12:30 02/02/22 12:30 02/02/22 12:02/02/22 12:21 General appearance: Present: other (sedated, intubated) - EENT Eyes: Present: PERRL ENT: hearing intact, clear oral mucosa - Neck Neck: Present: normal ROM - Respiratory Respiratory effort: normal Respiratory: bilateral: diminished - Cardiovascular Rhythm: regular Heart Sounds: Present: S1 & S2. Absent: systolic murmur, diastolic murmur - Extremities Extremities: no ischemia, pulses intact, pulses symmetrical, No edema, normal temperature, normal color Peripheral Pulses: within normal limits - Abdominal General gastrointestinal: soft, non-tender, non-distended, normal bowel sounds - Integumentary Integumentary: Present: warm, dry - Psychiatric Psychiatric: other - Neurologic Neurologic: other (intact cough/gag, PERRL) - Allied Health Allied health notes reviewed: nursing, PT, ST, OT, RT, social work Results - Labs CBC & Chem 7: 02/02/22 09:41 02/02/22 09:05 Labs: Laboratory Last Values WBC 2.6 K/mm3 (4.5-11.0) L 02/02/22 09:41 RBC 4.38 M/mm3 (3.65-5.03) 02/02/22 09:41 Hgb 8.0 gm/dl (10.1-14.3) L 02/02/22 09:41 Hct 25.0 % (30.3-42.9) L 02/02/22 09:41 MCV 57 fl (79-97) L 02/02/22 09:41 MCH 18 pg (28-32) L 02/02/22 09:41 MCHC 32 % (30-34) 02/02/22 09:41 RDW 18.8 % (13.2-15.2) H 02/02/22 09:41 Plt Count 97 K/mm3 (140-440) L 02/02/22 09:41 Lymph % (Auto) Manager Medical Device 02/02/22 04:00 Add Manual Diff Complete 02/02/22 09:41 Total Counted 50 02/02/22 09:41 Seg Neutrophils % Manager Medical Device 02/02/22 04:00 Seg Neuts % (Manual) 64.0 % (40.0-70.0) 02/02/22 09:41 Band Neutrophils % 20.0 % 02/02/22 09:41 Lymphocytes % (Manual) 12.0 % (13.4-35.0) L 02/02/22 09:41 Reactive Lymphs % (Man) 0 % 02/02/22 09:41 Monocytes % (Manual) 2.0 % (0.0-7.3) 02/02/22 09:41 Eosinophils % (Manual) 2.0 % (0.0-4.3) 02/02/22 09:41 Basophils % (Manual) 0 % (0.0-1.8) 02/02/22 09:41 Metamyelocytes % 0 % 02/02/22 09:41 Myelocytes % 0 % 02/02/22 09:41 Promyelocytes % 0 % 02/02/22 09:41 Blast Cells % 0 % 02/02/22 09:41 Nucleated RBC % 10.0 % (0.0-0.9) H 02/02/22 09:41 Seg Neutrophils # Man 1.7 K/mm3 (1.8-7.7) L 02/02/22 09:41 Band Neutrophils # 0.5 K/mm3 02/02/22 09:41 Lymphocytes # (Manual) 0.3 K/mm3 (1.2-5.4) L 02/02/22 09:41 Abs React Lymphs (Man) 0.0 K/mm3 02/02/22 09:41 Monocytes # (Manual) 0.1 K/mm3 (0.0-0.8) 02/02/22 09:41 Eosinophils # (Manual) 0.1 K/mm3 (0.0-0.4) 02/02/22 09:41 Basophils # (Manual) 0.0 K/mm3 (0.0-0.1) 02/02/22 09:41 Metamyelocytes # 0.0 K/mm3 02/02/22 09:41 Myelocytes # 0.0 K/mm3 02/02/22 09:41 Promyelocytes # 0.0 K/mm3 02/02/22 09:41 Blast Cells # 0.0 K/mm3 02/02/22 09:41 WBC Morphology Not Reportable 02/02/22 09:41 Hypersegmented Neuts Not Reportable 02/02/22 09:41 Hyposegmented Neuts Not Reportable 02/02/22 09:41 Hypogranular Neuts Not Reportable 02/02/22 09:41 Smudge Cells Not Reportable 02/02/22 09:41 Toxic Granulation Not Reportable 02/02/22 09:41 Toxic Vacuolation Not Reportable 02/02/22 09:41 Dohle Bodies Not Reportable 02/02/22 09:41 Pelger-Huet Anomaly Not Reportable 02/02/22 09:41 Sung Rods Not Reportable 02/02/22 09:41 Platelet Estimate Consistent w auto 02/02/22 09:41 Clumped Platelets Not Reportable 02/02/22 09:41 Plt Clumps, EDTA Not Reportable 02/02/22 09:41 Large Platelets Not Reportable 02/02/22 09:41 Giant Platelets Not Reportable 02/02/22 09:41 Platelet Satelliting Not Reportable 02/02/22 09:41 Plt Morphology Comment Not Reportable 02/02/22 09:41 RBC Morphology Not Reportable 02/02/22 09:41 Dimorphic RBCs Not Reportable 02/02/22 09:41 Polychromasia Not Reportable 02/02/22 09:41 Hypochromasia 3+ 02/02/22 09:41 Poikilocytosis 2+ 02/02/22 09:41 Anisocytosis 1+ 02/02/22 09:41 Microcytosis 2+ 02/02/22 09:41 Macrocytosis Not Reportable 02/02/22 09:41 Spherocytes Not Reportable 02/02/22 09:41 Pappenheimer Bodies Not Reportable 02/02/22 09:41 Sickle Cells Not Reportable 02/02/22 09:41 Target Cells 1+ 02/02/22 09:41 Tear Drop Cells Few 02/02/22 09:41 Ovalocytes Few 02/02/22 09:41 Helmet Cells Not Reportable 02/02/22 09:41 Starr-Kinnelon Bodies Not Reportable 02/02/22 09:41 [place] Rings Not Reportable 02/02/22 09:41 Lesly Cells Few 02/02/22 09:41 Bite Cells Not Reportable 02/02/22 09:41 Crenated Cell Not Reportable 02/02/22 09:41 Elliptocytes Few 02/02/22 09:41 Acanthocytes (Spur) Not Reportable 02/02/22 09:41 Rouleaux Not Reportable 02/02/22 09:41 Hemoglobin C Crystals Not Reportable 02/02/22 09:41 Schistocytes Not Reportable 02/02/22 09:41 Malaria parasites Not Reportable 02/02/22 09:41 Sven Bodies Not Reportable 02/02/22 09:41 Hem Pathologist Commnt No 02/02/22 09:41 ABG pH 7.528 (7.320-7.450) H 02/02/22 04:49 POC ABG pCO2 37.3 mmHg (32.0-48.0) 02/02/22 04:49 ABG pCO2 40.0 mm Hg 02/01/22 18:53 POC ABG pO2 79.9 mmHg (83-108) L 02/02/22 04:49 ABG pO2 121.4 mm Hg (80.0-90.0) H 02/01/22 18:53 POC ABG HCO3 30.3 02/02/22 04:49 ABG HCO3 20.6 mmol/L (20.0-26.0) 02/01/22 18:53 ABG O2 Saturation 96.5 (0-100) 02/02/22 04:49 ABG O2 Content 11.7 (0.0-44) 02/01/22 18:53 POC ABG Base Excess 7.1 02/02/22 04:49 ABG Base Excess -4.9 mmol/L (-2.0-3.0) L 02/01/22 18:53 ABG Hemoglobin 8.8 (12.0-17.5) L 02/02/22 04:49 ABG Oxyhemoglobin 96.0 (94-98) 02/02/22 04:49 ABG Carboxyhemoglobin 1.0 % (0.0-5.0) 02/01/22 18:53 ABG Methemoglobin 0.3 (0.0-1.5) 02/02/22 04:49 ABG Sodium Not Reportable 02/02/22 04:49 ABG Potassium Not Reportable 02/02/22 04:49 ABG Chloride Not Reportable 02/02/22 04:49 ABG Glucose Not Reportable 02/02/22 04:49 Oxyhemoglobin 96.7 % (95.0-99.0) 02/01/22 18:53 Carboxyhemoglobin 0.2 (0.5-1.5) L 02/02/22 04:49 FiO2 100 % 02/01/22 18:53 FiO2 % 60.0 02/02/22 04:49 Sodium 154 mmol/L (137-145) H 02/02/22 09:05 Potassium 3.3 mmol/L (3.6-5.0) L 02/02/22 09:05 Chloride 113.3 mmol/L (98-107) H 02/02/22 09:05 Carbon Dioxide 30 mmol/L (22-30) 02/02/22 09:05 Anion Gap 14 mmol/L 02/02/22 09:05 BUN 10 mg/dL (7-17) 02/02/22 09:05 Creatinine 0.7 mg/dL (0.6-1.2) 02/02/22 09:05 Estimated GFR > 60 ml/min 02/02/22 09:05 BUN/Creatinine Ratio 13 % 02/02/22 09:05 Glucose 35 mg/dL (65-100) L* 02/02/22 09:05 POC Glucose 166 mg/dL (70-105) H 02/02/22 12:32 Hemoglobin A1c 11.1 % (4-6) H 02/01/22 12:54 Lactic Acid 7.10 mmol/L (0.7-2.0) H* 02/02/22 09:05 Calcium 7.4 mg/dL (8.4-10.2) L 02/02/22 09:05 Phosphorus 1.70 mg/dL (2.5-4.5) L D 02/02/22 09:05 Magnesium 2.50 mg/dL (1.7-2.3) H 02/02/22 09:05 Total Bilirubin 0.70 mg/dL (0.1-1.2) 01/31/22 20:33 AST 20 units/L (5-40) 01/31/22 20:33 ALT 10 units/L (7-56) 01/31/22 20:33 Alkaline Phosphatase 103 units/L (35-129) 01/31/22 20:33 Total Protein 7.4 g/dL (6.3-8.2) 01/31/22 20:33 Albumin 4.4 g/dL (3.9-5) 01/31/22 20:33 Albumin/Globulin Ratio 1.5 % 01/31/22 20:33 Arterial Blood Glucose Not Reportable 02/02/22 04:49 Urine Color Yellow (Yellow) 01/31/22 22:49 Urine Turbidity Hazy (Clear) 01/31/22 22:49 Urine pH 5.0 (5.0-7.0) 01/31/22 22:49 Ur Specific [place] 1.035 (1.003-1.030) H 01/31/22 22:49 Urine Protein 100 mg/dl mg/dL (Negative) 01/31/22 22:49 Urine Glucose (UA) Negative mg/dL (Negative) 01/31/22 22:49 Urine Ketones 300 mg/dL (Negative) 01/31/22 22:49 Urine Blood Small (Negative) A 01/31/22 22:49 Urine Nitrite Negative (Negative) 01/31/22 22:49 Ur Reducing Substances Not Reportable 01/31/22 22:49 Urine Bilirubin Negative (Negative) 01/31/22 22:49 Urine Ictotest Not Reportable 01/31/22 22:49 Urine Urobilinogen < 2.0 mg/dL (<2.0) 01/31/22 22:49 Ur Leukocyte Esterase Negative (Negative) 01/31/22 22:49 Urine WBC (Auto) 142.0 /HPF (0.0-6.0) H 01/31/22 22:49 Urine RBC (Auto) 107.0 /HPF (0.0-6.0) 01/31/22 22:49 U Epithel Cells (Auto) 1.0 /HPF (0-13.0) 01/31/22 22:49 Urine Mucus Few /HPF 01/31/22 22:49 Urine Yeast (Budding) 3+ /HPF 01/31/22 22:49 SARS-CoV-2 (PCR) Negative (Negative) 02/01/22 08:50 Microbiology: Microbiology 01/31/22 20:33 Peripheral/Venous Blood Culture - Preliminary NO GROWTH AFTER 24 HOURS 01/31/22 20:33 Peripheral/Venous Blood Culture - Preliminary NO GROWTH AFTER 24 HOURS Gastelum/IV: Voiding Method External Female Catheter Active Medications - Current Medications Current Medications: Generic Name Dose Route Start Last Admin Trade Name Freq PRN Reason Stop Dose Admin Acetaminophen 650 mg 02/01/22 00:57 Acetaminophen 325 Mg Tab PO Q4H PRN Pain MILD(1-3)/Fever >100.5/ROSADO Albuterol 2.5 mg 02/01/22 00:57 Albuterol 2.5 Mg/3 Ml Nebu IH Q3HRT PRN Shortness Of Breath Albuterol/Ipratropium 1 ampul 02/01/22 05:30 02/01/22 05:42 Ipratropium/Albuterol Sulfate 3 Ml Ampul.Neb IH 1 ampul Q4HRT PRN Administration Dyspnea Lipase/Protease/Amylase 1 each 02/02/22 08:08 Lipase 10,500/Protease 25,000/Amylase 43,750 (Units) Dr Cap FEEDTUBE PRN PRN For Clogged Feeding Tube Dextrose 50 ml 02/02/22 08:00 02/02/22 09:03 Dextrose 50% In Water (25gm) 50 Ml Syringe IV 50 ml Q30MIN PRN Administration Hypoglycemia Protocol Famotidine 20 mg 02/01/22 10:00 02/02/22 09:59 Famotidine 20 Mg/2 Ml Inj IV 20 mg BID JAMIL Administration Fentanyl 50 mcg 02/02/22 09:45 Fentanyl 100 Mcg/2 Ml Inj IV Q10MIN PRN ANALGESIA Hydrophilic Ointment 1 applic 02/01/22 18:52 Lip Therapy Vaseline TP Q2HR PRN Dry Lips Cefepime HCl 2 gm in 100 mls @ 200 mls/hr 02/01/22 17:00 02/02/22 07:09 Cefepime/Ns 2 Gm/100 Ml IV 200 mls/hr Q12H JAMIL Administration Protocol NORepinephrine/NS 8 MG-250 ML 8 mg in 250 mls @ 3.75 mls/hr 02/01/22 20:00 02/02/22 11:45 Norepinephrine/Ns 8 Mg-250 Ml (Double Conc) IV 8 mcg/min TITRATE JAMIL 15 mls/hr Administration Protocol 2 MCG/MIN Propofol 1,000 mg in 100 mls @ 1.429 mls/hr 02/01/22 19:17 02/02/22 08:49 Diprivan 10 Mg/Ml IV 20 mcg/kg/min TITR JAMIL 5.715 mls/hr Administration Protocol 5 MCG/KG/MIN Fentanyl Citrate 2,000 mcg in 100 mls @ 2.381 mls/hr 02/02/22 10:00 02/02/22 11:04 Fentanyl Drip Premix IV 1 mcg/kg/hr TITR JAMIL 2.381 mls/hr Administration Protocol 1 MCG/KG/HR Potassium Phosphate 45 mmol/ 515 mls @ 85 mls/hr 02/02/22 10:36 02/02/22 11:10 Sodium Chloride IV 02/02/22 16:39 85 mls/hr ONCE ONE Administration Vancomycin HCl 750 mg/ Sodium 265 mls @ 166.667 mls/hr 02/02/22 13:00 Chloride IV Q12H [facility] Insulin Glargine 15 units 02/02/22 12:35 Insulin Glargine 100 Units/Ml SUB-Q QAMDIAB [facility] Insulin Human Regular 0 units 02/02/22 08:00 02/02/22 10:56 Insulin Regular, Human 100 Units/1 Ml SUB-Q Not Given Q6H [facility] Protocol Morphine Sulfate 2 mg 02/01/22 00:57 02/02/22 02:31 Morphine 2 Mg/1 Ml Inj IV 2 mg Q4H PRN Administration Pain, Moderate (4-6) Morphine Sulfate 4 mg 02/01/22 00:57 02/01/22 20:04 Morphine 4 Mg/1 Ml Inj IV 4 mg Q4H PRN Administration Pain , Severe (7-10) Multi-Ingred Cream/Lotion/Oil/Oint 1 applic 02/01/22 18:52 Mineral Oil/Petrolatum, White Ophth Oint 3.5 Gm OU Q4HR PRN Dry Eye(s) Ondansetron HCl 4 mg 02/01/22 00:57 Ondansetron 4 Mg/2 Ml Inj IV Q8H PRN Nausea And Vomiting Senna/Docusate Sodium 1 tab 02/02/22 22:00 Sennosides/Docusate Sodium 8.6/50 Mg Tab FEEDTUBE QHS JAMIL Simple Syrup 15 ml 02/02/22 08:08 Simple Syrup 15 Ml FEEDTUBE PRN PRN Hypoglycemia Simple Syrup 30 ml 02/02/22 08:08 Simple Syrup 15 Ml FEEDTUBE PRN PRN Hypoglycemia Sodium Bicarbonate 325 mg 02/02/22 08:08 Sodium Bicarbonate 325 Mg Tab FEEDTUBE PRN PRN For Clogged Feeding Tube Sodium Chloride 10 ml 02/01/22 10:00 02/02/22 09:59 Sodium Chloride 0.9% 10 Ml Flush Syringe IV 10 ml BID JAMIL Administration Sodium Chloride 10 ml 02/01/22 00:57 Sodium Chloride 0.9% 10 Ml Flush Syringe IV PRN PRN LINE FLUSH Nutrition/Malnutrition Assess - Dietary Evaluation Nutrition/Malnutrition Findings: Nutrition Notes Start: 02/01/22 17:50 Freq: Status: Active Protocol: Document 02/01/22 17:50 JACQUELINE (Rec: 02/01/22 18:11 JACQUELINE [id number]) Nutrition Notes Need for Assessment generated from: Low BMI Initial or Follow up Brief Note Current Diagnosis Diabetes,Sepsis Other Pertinent Diagnosis Hpoglycemia [place], 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 Current Diet NPO (since 02/01 17:49) Labs/Tests 0729: Na 148, K 3.0, Cl 117.3, CO2 9, Glu 439, Ca 7.7. Pertinent Medications 02/01: Insulin 16U, KPO4 45mmol, others nutritionally unremarkable. Height 5 ft 4 in Weight 47.627 kg [place] Body Weight (kg) 54.54 BMI 18.0 Intake Prior to Admission Poor Weight change and time frame Pt denies having loss body weight [place]. Weight Status Underweight Subjective/Other Information RD consult for Low BMI and malnutrition assessments. Pt has been intubated few minutes ago, not enough information available to assess for Low BMI and malnutrition at this time, will assess at F/U. Nutrition Intervention Follow-Up By: 02/04/22 <MELISSA WHITE - Last Filed: 02/03/22 07:17> Assessment and Plan Assessment and plan: I saw and evaluated the patient. I agree with the findings and the plan of care as documented in the Nurse Practitioner's~note, with the following corrections and additions. Hospitalist Physical - Constitutional Vitals: Temp Pulse Resp BP Pulse Ox 99.5 F 121 H 16 94/62 98 02/03/22 04:00 02/03/22 06:00 02/03/22 06:00 02/03/22 06:00 02/03/22 06:00 Results - Labs CBC & Chem 7: 02/03/22 04:00 02/03/22 04:00 Labs: Laboratory Last Values WBC 3.7 K/mm3 (4.5-11.0) L 02/03/22 04:00 RBC 4.41 M/mm3 (3.65-5.03) 02/03/22 04:00 Hgb 8.0 gm/dl (10.1-14.3) L 02/03/22 04:00 Hct 25.5 % (30.3-42.9) L 02/03/22 04:00 MCV 58 fl (79-97) L 02/03/22 04:00 MCH 18 pg (28-32) L 02/03/22 04:00 MCHC 32 % (30-34) 02/03/22 04:00 RDW 18.2 % (13.2-15.2) H 02/03/22 04:00 Plt Count 79 K/mm3 (140-440) L 02/03/22 04:00 Lymph % (Auto) Manager Medical Device 02/02/22 04:00 Add Manual Diff Complete 02/02/22 09:41 Total Counted 50 02/02/22 09:41 Seg Neutrophils % Manager Medical Device 02/02/22 04:00 Seg Neuts % (Manual) 64.0 % (40.0-70.0) 02/02/22 09:41 Band Neutrophils % 20.0 % 02/02/22 09:41 Lymphocytes % (Manual) 12.0 % (13.4-35.0) L 02/02/22 09:41 Reactive Lymphs % (Man) 0 % 02/02/22 09:41 Monocytes % (Manual) 2.0 % (0.0-7.3) 02/02/22 09:41 Eosinophils % (Manual) 2.0 % (0.0-4.3) 02/02/22 09:41 Basophils % (Manual) 0 % (0.0-1.8) 02/02/22 09:41 Metamyelocytes % 0 % 02/02/22 09:41 Myelocytes % 0 % 02/02/22 09:41 Promyelocytes % 0 % 02/02/22 09:41 Blast Cells % 0 % 02/02/22 09:41 Nucleated RBC % 10.0 % (0.0-0.9) H 02/02/22 09:41 Seg Neutrophils # Man 1.7 K/mm3 (1.8-7.7) L 02/02/22 09:41 Band Neutrophils # 0.5 K/mm3 02/02/22 09:41 Lymphocytes # (Manual) 0.3 K/mm3 (1.2-5.4) L 02/02/22 09:41 Abs React Lymphs (Man) 0.0 K/mm3 02/02/22 09:41 Monocytes # (Manual) 0.1 K/mm3 (0.0-0.8) 02/02/22 09:41 Eosinophils # (Manual) 0.1 K/mm3 (0.0-0.4) 02/02/22 09:41 Basophils # (Manual) 0.0 K/mm3 (0.0-0.1) 02/02/22 09:41 Metamyelocytes # 0.0 K/mm3 02/02/22 09:41 Myelocytes # 0.0 K/mm3 02/02/22 09:41 Promyelocytes # 0.0 K/mm3 02/02/22 09:41 Blast Cells # 0.0 K/mm3 02/02/22 09:41 WBC Morphology Not Reportable 02/02/22 09:41 Hypersegmented Neuts Not Reportable 02/02/22 09:41 Hyposegmented Neuts Not Reportable 02/02/22 09:41 Hypogranular Neuts Not Reportable 02/02/22 09:41 Smudge Cells Not Reportable 02/02/22 09:41 Toxic Granulation Not Reportable 02/02/22 09:41 Toxic Vacuolation Not Reportable 02/02/22 09:41 Dohle Bodies Not Reportable 02/02/22 09:41 Pelger-Huet Anomaly Not Reportable 02/02/22 09:41 Sung Rods Not Reportable 02/02/22 09:41 Platelet Estimate Consistent w auto 02/02/22 09:41 Clumped Platelets Not Reportable 02/02/22 09:41 Plt Clumps, EDTA Not Reportable 02/02/22 09:41 Large Platelets Not Reportable 02/02/22 09:41 Giant Platelets Not Reportable 02/02/22 09:41 Platelet Satelliting Not Reportable 02/02/22 09:41 Plt Morphology Comment Not Reportable 02/02/22 09:41 RBC Morphology Not Reportable 02/02/22 09:41 Dimorphic RBCs Not Reportable 02/02/22 09:41 Polychromasia Not Reportable 02/02/22 09:41 Hypochromasia 3+ 02/02/22 09:41 Poikilocytosis 2+ 02/02/22 09:41 Anisocytosis 1+ 02/02/22 09:41 Microcytosis 2+ 02/02/22 09:41 Macrocytosis Not Reportable 02/02/22 09:41 Spherocytes Not Reportable 02/02/22 09:41 Pappenheimer Bodies Not Reportable 02/02/22 09:41 Sickle Cells Not Reportable 02/02/22 09:41 Target Cells 1+ 02/02/22 09:41 Tear Drop Cells Few 02/02/22 09:41 Ovalocytes Few 02/02/22 09:41 Helmet Cells Not Reportable 02/02/22 09:41 Starr-Kinnelon Bodies Not Reportable 02/02/22 09:41 [place] Rings Not Reportable 02/02/22 09:41 [place] Cells Few 02/02/22 09:41 Bite Cells Not Reportable 02/02/22 09:41 Crenated Cell Not Reportable 02/02/22 09:41 Elliptocytes Few 02/02/22 09:41 Acanthocytes (Spur) Not Reportable 02/02/22 09:41 Rouleaux Not Reportable 02/02/22 09:41 Hemoglobin C Crystals Not Reportable 02/02/22 09:41 Schistocytes Not Reportable 02/02/22 09:41 Malaria parasites Not Reportable 02/02/22 09:41 Sven Bodies Not Reportable 02/02/22 09:41 Hem Pathologist Commnt No 02/02/22 09:41 ABG pH 7.374 pH Units (7.350-7.450) 02/03/22 04:20 POC ABG pCO2 37.3 mmHg (32.0-48.0) 02/02/22 04:49 ABG pCO2 38.7 mm Hg 02/03/22 04:20 POC ABG pO2 79.9 mmHg (83-108) L 02/02/22 04:49 ABG pO2 75.5 mm Hg (80.0-90.0) L 02/03/22 04:20 POC ABG HCO3 30.3 02/02/22 04:49 ABG HCO3 22.1 mmol/L (20.0-26.0) 02/03/22 04:20 ABG O2 Saturation 96.2 % (95.0-99.0) 02/03/22 04:20 ABG O2 Content 10.9 (0.0-44) 02/03/22 04:20 POC ABG Base Excess 7.1 02/02/22 04:49 ABG Base Excess -2.8 mmol/L (-2.0-3.0) L 02/03/22 04:20 ABG Hemoglobin 8.1 gm/dl (12.0-16.0) L 02/03/22 04:20 ABG Oxyhemoglobin 96.0 (94-98) 02/02/22 04:49 ABG Carboxyhemoglobin 1.0 % (0.0-5.0) 02/03/22 04:20 ABG Methemoglobin 0.6 % (0.0-1.5) 02/03/22 04:20 ABG Sodium Not Reportable 02/02/22 04:49 ABG Potassium Not Reportable 02/02/22 04:49 ABG Chloride Not Reportable 02/02/22 04:49 ABG Glucose Not Reportable 02/02/22 04:49 Oxyhemoglobin 94.6 % (95.0-99.0) L 02/03/22 04:20 Carboxyhemoglobin 0.2 (0.5-1.5) L 02/02/22 04:49 FiO2 75 % 02/03/22 04:20 FiO2 % 60.0 02/02/22 04:49 Sodium 147 mmol/L (137-145) H 02/03/22 04:00 Potassium 4.1 mmol/L (3.6-5.0) D 02/03/22 04:00 Chloride 112.9 mmol/L (98-107) H 02/03/22 04:00 Carbon Dioxide 23 mmol/L (22-30) 02/03/22 04:00 Anion Gap 15 mmol/L 02/03/22 04:00 BUN 15 mg/dL (7-17) 02/03/22 04:00 Creatinine 0.8 mg/dL (0.6-1.2) 02/03/22 04:00 Estimated GFR > 60 ml/min 02/03/22 04:00 BUN/Creatinine Ratio 19 % 02/03/22 04:00 Glucose 281 mg/dL (65-100) H 02/03/22 04:00 POC Glucose 247 mg/dL (70-105) H 02/03/22 05:26 Hemoglobin A1c 11.1 % (4-6) H 02/01/22 12:54 Lactic Acid 2.00 mmol/L (0.7-2.0) 02/02/22 Unknown Calcium 7.8 mg/dL (8.4-10.2) L 02/03/22 04:00 Phosphorus 3.60 mg/dL (2.5-4.5) D 02/03/22 04:00 Magnesium 2.10 mg/dL (1.7-2.3) 02/03/22 04:00 Total Bilirubin 0.50 mg/dL (0.1-1.2) 02/03/22 04:00 Direct Bilirubin 0.3 mg/dL (0-0.2) H 02/03/22 04:00 Indirect Bilirubin 0.2 mg/dL 02/03/22 04:00 AST 172 units/L (5-40) H 02/03/22 04:00 ALT 89 units/L (7-56) H 02/03/22 04:00 Alkaline Phosphatase 105 units/L (35-129) 02/03/22 04:00 Total Protein 4.7 g/dL (6.3-8.2) L D 02/03/22 04:00 Albumin 2.0 g/dL (3.9-5) L 02/03/22 04:00 Albumin/Globulin Ratio 0.7 % 02/03/22 04:00 Arterial Blood Glucose Not Reportable 02/02/22 04:49 Urine Color Yellow (Yellow) 01/31/22 22:49 Urine Turbidity Hazy (Clear) 01/31/22 22:49 Urine pH 5.0 (5.0-7.0) 01/31/22 22:49 Ur Specific [place] 1.035 (1.003-1.030) H 01/31/22 22:49 Urine Protein 100 mg/dl mg/dL (Negative) 01/31/22 22:49 Urine Glucose (UA) Negative mg/dL (Negative) 01/31/22 22:49 Urine Ketones 300 mg/dL (Negative) 01/31/22 22:49 Urine Blood Small (Negative) A 01/31/22 22:49 Urine Nitrite Negative (Negative) 01/31/22 22:49 Ur Reducing Substances Not Reportable 01/31/22 22:49 Urine Bilirubin Negative (Negative) 01/31/22 22:49 Urine Ictotest Not Reportable 01/31/22 22:49 Urine Urobilinogen < 2.0 mg/dL (<2.0) 01/31/22 22:49 Ur Leukocyte Esterase Negative (Negative) 01/31/22 22:49 Urine WBC (Auto) 142.0 /HPF (0.0-6.0) H 01/31/22 22:49 Urine RBC (Auto) 107.0 /HPF (0.0-6.0) 01/31/22 22:49 U Epithel Cells (Auto) 1.0 /HPF (0-13.0) 01/31/22 22:49 Urine Mucus Few /HPF 01/31/22 22:49 Urine Yeast (Budding) 3+ /HPF 01/31/22 22:49 Coronavirus (PCR) Negative (Negative) 02/02/22 10:44 SARS-CoV-2 (PCR) Negative (Negative) 02/01/22 08:50 Microbiology: Microbiology 01/31/22 20:33 Peripheral/Venous Blood Culture - Preliminary NO GROWTH AFTER 48 HOURS 01/31/22 20:33 Peripheral/Venous Blood Culture - Preliminary NO GROWTH AFTER 48 HOURS Gastelum/IV: Voiding Method External Female Catheter Active Medications - Current Medications Current Medications: Generic Name Dose Route Start Last Admin Trade Name Freq PRN Reason Stop Dose Admin Acetaminophen 650 mg 02/01/22 00:57 02/02/22 23:48 Acetaminophen 325 Mg Tab PO 650 mg Q4H PRN Administration Pain MILD(1-3)/Fever >100.5/ROSADO Albuterol 2.5 mg 02/01/22 00:57 Albuterol 2.5 Mg/3 Ml Nebu IH Q3HRT PRN Shortness Of Breath Albuterol/Ipratropium 1 ampul 02/01/22 05:30 02/01/22 05:42 Ipratropium/Albuterol Sulfate 3 Ml Ampul.Neb IH 1 ampul Q4HRT PRN Administration Dyspnea Lipase/Protease/Amylase 1 each 02/02/22 08:08 Lipase 10,500/Protease 25,000/Amylase 43,750 (Units) Cap FEEDTUBE PRN PRN For Clogged Feeding Tube Dextrose 50 ml 02/02/22 08:00 02/02/22 09:03 Dextrose 50% In Water (25gm) 50 Ml Syringe IV 50 ml Q30MIN PRN Administration Hypoglycemia Protocol Famotidine 20 mg 02/01/22 10:00 02/02/22 22:14 Famotidine 20 Mg/2 Ml Inj IV 20 mg BID JAMIL Administration Fentanyl 50 mcg 02/02/22 09:45 Fentanyl 100 Mcg/2 Ml Inj IV Q10MIN PRN ANALGESIA Hydrophilic Ointment 1 applic 02/01/22 18:52 Lip Therapy Vaseline TP Q2HR PRN Dry Lips Cefepime HCl 2 gm in 100 mls @ 200 mls/hr 02/01/22 17:00 02/03/22 05:26 Cefepime/Ns 2 Gm/100 Ml IV 200 mls/hr Q12H JAMIL Administration Protocol NORepinephrine/NS 8 MG-250 ML 8 mg in 250 mls @ 3.75 mls/hr 02/01/22 20:00 02/03/22 06:06 Norepinephrine/Ns 8 Mg-250 Ml (Double Conc) IV 4 mcg/min TITRATE JAMIL 7.5 mls/hr Titration Protocol 2 MCG/MIN Propofol 1,000 mg in 100 mls @ 1.429 mls/hr 02/01/22 19:17 02/03/22 05:30 Diprivan 10 Mg/Ml IV 5 mcg/kg/min TITR JAMIL 1.429 mls/hr Administration Protocol 5 MCG/KG/MIN Fentanyl Citrate 2,000 mcg in 100 mls @ 2.381 mls/hr 02/02/22 10:00 02/03/22 00:26 Fentanyl Drip Premix IV 1 mcg/kg/hr TITR JAMIL 2.381 mls/hr Titration Protocol 1 MCG/KG/HR Vancomycin HCl 750 mg/ Sodium 265 mls @ 166.667 mls/hr 02/02/22 13:00 02/03/22 06:01 Chloride IV Infused Q12H [facility] Infusion Insulin Glargine 15 units 02/02/22 14:00 02/02/22 13:36 Insulin Glargine 100 Units/Ml SUB-Q 15 units QAMDIAB JAMIL Administration Insulin Human Regular 0 units 02/02/22 18:00 02/03/22 05:26 Insulin Regular, Human 100 Units/1 Ml SUB-Q 3 units Q6H JAMIL Administration Protocol Morphine Sulfate 2 mg 02/01/22 00:57 02/02/22 02:31 Morphine 2 Mg/1 Ml Inj IV 2 mg Q4H PRN Administration Pain, Moderate (4-6) Morphine Sulfate 4 mg 02/01/22 00:57 02/01/22 20:04 Morphine 4 Mg/1 Ml Inj IV 4 mg Q4H PRN Administration Pain , Severe (7-10) Multi-Ingred Cream/Lotion/Oil/Oint 1 applic 02/01/22 18:52 Mineral Oil/Petrolatum, White Ophth Oint 3.5 Gm OU Q4HR PRN Dry Eye(s) Ondansetron HCl 4 mg 02/01/22 00:57 Ondansetron 4 Mg/2 Ml Inj IV Q8H PRN Nausea And Vomiting Senna/Docusate Sodium 1 tab 02/02/22 22:00 02/02/22 22:14 Sennosides/Docusate Sodium 8.6/50 Mg Tab FEEDTUBE 1 tab QHS JAMIL Administration Simple Syrup 15 ml 02/02/22 08:08 Simple Syrup 15 Ml FEEDTUBE PRN PRN Hypoglycemia Simple Syrup 30 ml 02/02/22 08:08 Simple Syrup 15 Ml FEEDTUBE PRN PRN Hypoglycemia Sodium Bicarbonate 325 mg 02/02/22 08:08 Sodium Bicarbonate 325 Mg Tab FEEDTUBE PRN PRN For Clogged Feeding Tube Sodium Chloride 10 ml 02/01/22 10:00 02/02/22 22:14 Sodium Chloride 0.9% 10 Ml Flush Syringe IV 10 ml BID JAMIL Administration Sodium Chloride 10 ml 02/01/22 00:57 Sodium Chloride 0.9% 10 Ml Flush Syringe IV PRN PRN LINE FLUSH Nutrition/Malnutrition Assess - Dietary Evaluation Nutrition/Malnutrition Findings: Nutrition Notes Start: 02/01/22 17:50 Freq: Status: Active Protocol: Document 02/01/22 17:50 JACQUELINE (Rec: 02/01/22 18:11 JACQUELINE [id number]) Nutrition Notes Need for Assessment generated from: Low BMI Initial or Follow up Brief Note Current Diagnosis Diabetes,Sepsis Other Pertinent Diagnosis Hpoglycemia [place]URNER, 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 Current Diet NPO (since 02/01 17:49) Labs/Tests 0729: Na 148, K 3.0, Cl 117.3, CO2 9, Glu 439, Ca 7.7. Pertinent Medications 02/01: Insulin 16U, KPO4 45mmol, others nutritionally unremarkable. Height 5 ft 4 in Weight 47.627 kg [place] Body Weight (kg) 54.54 BMI 18.0 Intake Prior to Admission Poor Weight change and time frame Pt denies having loss body weight [place]. Weight Status Underweight Subjective/Other Information RD consult for Low BMI and malnutrition assessments. Pt has been intubated few minutes ago, not enough information available to assess for Low BMI and malnutrition at this time, will assess at F/U. Nutrition Intervention Follow-Up By: 02/04/22
--- NOTE | 2022-02-02 13:26 | Vascular Lab Report ---
DUPLEX DOPPLER LOWER EXTREMITY VEINS, BILATERAL INDICATION / CLINICAL INFORMATION: immobile, post arrest. TECHNIQUE: Duplex doppler imaging was performed through the veins of both lower extremities using rylie ous compression and other maneuvers. COMPARISON: None available. FINDINGS: RIGHT COMMON FEMORAL VEIN: Negative. RIGHT FEMORAL VEIN: Negative. RIGHT POPLITEAL VEIN: Negative. RIGHT CALF VEINS: Negative. LEFT COMMON FEMORAL VEIN: Negative. LEFT FEMORAL VEIN: Negative. LEFT POPLITEAL VEIN: Negative. LEFT CALF VEINS: Negative. ADDITIONAL FINDINGS: None. IMPRESSION: 1. No sonographic evidence for DVT in either lower extremity. Signer Name: Fabio Camargo MD Signed: 02/02/2022 1:21 PM Workstation Name: [id number]
[2022-02-02] MEDS: VANCOMYCIN 750 MG in SODIUM CHLORIDE 0.9% 250ML 250 ML IV SCH (13:36)
[2022-02-02 16:07] LABS: Blood Urea Nitrogen 9 mg/dL (7-17); Calcium 7.3 mg/dL (8.4-10.2); Hemolysis Index 5
[2022-02-02 16:08] LABS: BUN/Creatinine Ratio 15
[2022-02-02 17:49] LABS: ABG Base Excess 0.2 mmol/L (-2.0-3.0); ABG HCO3 23.4 mmol/L (20.0-26.0); ABG PCO2 33.9 mm Hg; ABG PH 7.457 pH Units (7.350-7.450)
[2022-02-02] MEDS: INSULIN REGULAR, HUMAN 100 UNITS/1 ML SUB-Q SCH (17:53)
[2022-02-02 17:56] LABS: ABG Methemoglobin 0.6 % (0.0-1.5); ABG Oxygen Saturation 94.5 % (95.0-99.0)
[2022-02-02] MEDS: SENNOSIDES/DOCUSATE SODIUM 8.6/50 MG TAB FEEDTUBE SCH (22:14)
[2022-02-02] MEDS: ACETAMINOPHEN 325 MG TAB PO PRN (23:48)
[2022-02-03] MEDS: INSULIN REGULAR, HUMAN 100 UNITS/1 ML SUB-Q SCH ×4 (00:20→18:02)
[2022-02-03] MEDS: VANCOMYCIN 750 MG in SODIUM CHLORIDE 0.9% 250ML 250 ML IV SCH ×2 (00:21→12:20)
[2022-02-03] MEDS: NORepinephrine/NS 8 MG-250 ML 8 MG/250 ML INFUS..BTL IV SCH (01:00)
--- NOTE | 2022-02-03 02:57 | XRay Report ---
CHEST 1 VIEW 02/03/2022 2:38 AM INDICATION / CLINICAL INFORMATION: follow up respiratory failure. COMPARISON: One view of the chest and KUB from 02/02/2022. FINDINGS: SUPPORT DEVICES: Unchanged. HEART / MEDIASTINUM: Stable. LUNGS / PLEURA: Bilateral airspace opacities have worsened. No significant pleural effusion. No pneum othorax. ADDITIONAL FINDINGS: No significant additional findings. IMPRESSION: Interval worsening of bilateral airspace disease. Signer Name: Chau Pham MD Signed: 02/03/2022 2:52 AM Workstation Name: [id number]
[2022-02-03 04:35] LABS: ABG Base Excess -2.8 mmol/L (-2.0-3.0); ABG HCO3 22.1 mmol/L (20.0-26.0); ABG Methemoglobin 0.6 % (0.0-1.5); ABG Oxygen Saturation 96.2 % (95.0-99.0); ABG PCO2 38.7 mm Hg; ABG PH 7.374 pH Units (7.350-7.450); ABG PO2 75.5 mm Hg (80.0-90.0)
[2022-02-03 04:48] LABS: Hematocrit 25.5 % (30.3-42.9); Mean Corpuscular HGB Conc 32 % (30-34); Red Blood Count 4.41 M/mm3 (3.65-5.03); Red Cell Distribution Width 18.2 % (13.2-15.2)
[2022-02-03 04:53] LABS: Mean Corpuscular Volume 58 fl (79-97); Platelet Count 79 K/mm3 (140-440)
[2022-02-03 04:58] LABS: Alanine Aminotransferase 89 units/L (7-56); BUN/Creatinine Ratio 19; Bilirubin,Direct 0.3 mg/dL (0-0.2); Blood Urea Nitrogen 15 mg/dL (7-17); Calcium 7.8 mg/dL (8.4-10.2); Hemolysis Index 13
[2022-02-03] MEDS: CEFEPIME/NS 2 GM/100 ML 2 GM/100 ML BAG IV SCH ×2 (05:26→16:30)
[2022-02-03] MEDS: INSULIN GLARGINE 100 UNITS/ML SUB-Q SCH (08:55)
[2022-02-03] MEDS: FAMOTIDINE 20 MG/2 ML INJ IV SCH ×2 (09:05→21:10)
[2022-02-03 09:30] LABS: Anisocytosis 1+; Band Neutrophils # (Manual) 0.7 K/mm3; Basophils % (Manual) 0 % (0.0-1.8); Eosinophils % (Manual) 0 % (0.0-4.3); Total Cells Counted 50
[2022-02-03 09:31] LABS: Hypochromasia 3+; Poikilocytosis 2+; Schistocytes Rare
[2022-02-03 09:41] LABS: Burr Cells 1+; Ovalocytes Few; Platelet Estimate Consistent w Auto; Target Cells 1+; Tear Drop Cells Few
[2022-02-03] MEDS: fentaNYL 100 MCG/2 ML INJ IV PRN (09:43)
[2022-02-03 09:46] LABS: Dohle Bodies Few
--- NOTE | 2022-02-03 10:35 | Electrocardiograph Report ---
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
[2022-02-03] MEDS ORDERED: LACTATED RINGERS 1,000 ML IV ONE (11:27)
[2022-02-03] MEDS ORDERED: CALCIUM GLUCONATE 1,000 MG/NS 100 ML PREMIX IV ONE (11:31)
--- NOTE | 2022-02-03 11:38 | Progress Note ---
<JUSTINFabioRADHANelson - Last Filed: 02/03/22 12:05> Assessment and Plan Assessment and plan: This is a 61 year old female with DM, Dementia, HLD, HTN admitted with DKA s/p cardiac arrest on 02/01 Neuro: Acute metabolic encephalopathy, h/o dementia -Neurology consulted, appreciate recommendations -Sedated with propofol -Addition of fentanyl -RASS goal 0 to -1 -Reorientation as needed -As needed analgesia Cardiac: s/p PEA cardiac arrest on 02/01, h/o HLD and HTN -Cardiology consulted, appreciate recommendations -Blood pressure monitoring per protocol -Vasopressor support with Levophed -MAP goal greater than 65 -Echocardiogram LVEF 55 to 60% Respiratory: Acute hypoxic respiratory failure -CCM consulted, appreciate recommendations -Intubated on 02/01 with 7.0 OETT at 21 at the lips -A.m. vent settings: Assist-control Rate 12, tidal volume 350, PEEP 8, FiO2 75% -See RT notes for titration -A.m. ABG and CXR noted -VAP bundle -SPO2 monitoring -Possible bronch in AM GI: NAD -24 hours +1223 mL -PPI -NTR consulted for tube feedings -BR: Senokot S : Hypernatremia, hyperchloremia -Gastelum was unable to be placed x2 -Monitor intake and output -Renally dose medications -Avoid nephrotoxic medications -s/p bicarbonate drip -FWF -Repeat potassium and phosphate -Trend BMP ID: Sepsis, COVID 19 PUI, UTI, lactic acidosis -Presented with tachycardia, leukocytosis, pyuria on UA now with pancytopenia, hypotension -Antibiotic therapy with cefepime and vancomycin -Contact/isolation precautions -f/u blood culture -Monitor WBC and temperature curve Endo: s/p DKA, h/o DM -Presented with severe metabolic acidosis, blood glucose in 300s -s/p insulin drip -Avoid hypoglycemia -Hemoglobin A1c 11.1 -SSI -Accu-Cheks q. every 6 -Long-acting insulin, titrate as needed Heme: Pancytopenia -Consider hem/onc if not improving -Bilateral lower extremity ultrasound negative for DVT -Trend CBC -Transfuse hemoglobin less than 7 -SCDs to BLE while in bed The high probability of a clinically significant, sudden or life threatening deterioration of the [endocrine, infectious disease] system(s) required my full and direct attention, intervention and personal management. The aggregate critical care time was [60] minutes. This time is in addition to time spent performing reported procedures but includes the following: [x] Data Review and interpretation [x] Patient assessment and monitoring of vital signs [x] Documentation [x] Medication orders and management Disposition Plan: icu Total Time Spent with Patient (Minutes): 60 History Interval history: This is a 61-year-old female is a [facility] a [facility] with DM,, dementia (possibly Wernickes per daughter), hyperlipidemia, and hypertension who presents to the hospital on 01/31 from [facility] for hypoglycemia. In the ED patient was found to be tachycardic, tachypneic and lab work showed hyperkalemia, hyperchloremia, high anion gap metabolic acidosis with leukocytosis and UA showed pyuria. Patient was admitted to the hospitalist service. Hospital course to date: 02/01: patient was transferred to ICU as lab work was consistent with DKA and started on insulin drip. Central line placed for IV access. Patient was given bicarb push and started on a bicarb drip. She was also started on Rocephin due to UTI however antibiotics are broadened to cefepime and vancomycin. 02/02: s/p cardiac arrest on 02/01. Bicarbonate drip discontinued. Pancytopenia noted, anion gap closed and transitioned to SSI and long-acting insulin. Patient was having hypoglycemia this morning which has been corrected now. Started on tube feeding. Potassium and phosphorus will be repleted. Hypernatremia noted and FWF started with tube feedings. COVID-19 PCR pending. Venous Doppler ultrasound pending. Neurology and cardiology consulted. Echocardiogram pending. Patient currently on Levophed and sedated with propofol. Fentanyl added. Given 1 LR bolus this morning for hypotension. 02/03: LR bolus x2, remains on levophed, tachycardia and EKG completed which shows tachycardia. Increase in FiO2, Will culture with next temp spike. Will give 1 gm Calcium Gluconate. Hospitalist Physical - Constitutional Vitals: Temp Pulse Resp BP Pulse Ox 99.0 F 134 H 12 84/63 95 02/03/22 08:00 02/03/22 11:00 02/03/22 11:00 02/03/22 11:00 02/03/22 10:45 General appearance: Present: other (sedated, intubated) - EENT Eyes: Present: PERRL, EOM intact - Neck Neck: Present: normal ROM - Respiratory Respiratory effort: normal Respiratory: bilateral: diminished - Cardiovascular Rhythm: regular Heart Sounds: Present: S1 & S2. Absent: systolic murmur, diastolic murmur Results - Labs CBC & Chem 7: 02/03/22 04:00 02/03/22 04:00 Labs: Laboratory Last Values WBC 3.7 K/mm3 (4.5-11.0) L 02/03/22 04:00 RBC 4.41 M/mm3 (3.65-5.03) 02/03/22 04:00 Hgb 8.0 gm/dl (10.1-14.3) L 02/03/22 04:00 Hct 25.5 % (30.3-42.9) L 02/03/22 04:00 MCV 58 fl (79-97) L 02/03/22 04:00 MCH 18 pg (28-32) L 02/03/22 04:00 MCHC 32 % (30-34) 02/03/22 04:00 RDW 18.2 % (13.2-15.2) H 02/03/22 04:00 Plt Count 79 K/mm3 (140-440) L 02/03/22 04:00 Lymph % (Auto) Packager Or Packer And Weigher 02/02/22 04:00 Add Manual Diff Complete 02/03/22 04:00 Total Counted 50 02/03/22 04:00 Seg Neutrophils % Packager Or Packer And Weigher 02/02/22 04:00 Seg Neuts % (Manual) 76.0 % (40.0-70.0) H 02/03/22 04:00 Band Neutrophils % 18.0 % 02/03/22 04:00 Lymphocytes % (Manual) 2.0 % (13.4-35.0) L 02/03/22 04:00 Reactive Lymphs % (Man) 0 % 02/03/22 04:00 Monocytes % (Manual) 4.0 % (0.0-7.3) 02/03/22 04:00 Eosinophils % (Manual) 0 % (0.0-4.3) 02/03/22 04:00 Basophils % (Manual) 0 % (0.0-1.8) 02/03/22 04:00 Metamyelocytes % 0 % 02/03/22 04:00 Myelocytes % 0 % 02/03/22 04:00 Promyelocytes % 0 % 02/03/22 04:00 Blast Cells % 0 % 02/03/22 04:00 Nucleated RBC % 4.0 % (0.0-0.9) H 02/03/22 04:00 Seg Neutrophils # Man 2.8 K/mm3 (1.8-7.7) 02/03/22 04:00 Band Neutrophils # 0.7 K/mm3 02/03/22 04:00 Lymphocytes # (Manual) 0.1 K/mm3 (1.2-5.4) L 02/03/22 04:00 Abs React Lymphs (Man) 0.0 K/mm3 02/03/22 04:00 Monocytes # (Manual) 0.1 K/mm3 (0.0-0.8) 02/03/22 04:00 Eosinophils # (Manual) 0.0 K/mm3 (0.0-0.4) 02/03/22 04:00 Basophils # (Manual) 0.0 K/mm3 (0.0-0.1) 02/03/22 04:00 Metamyelocytes # 0.0 K/mm3 02/03/22 04:00 Myelocytes # 0.0 K/mm3 02/03/22 04:00 Promyelocytes # 0.0 K/mm3 02/03/22 04:00 Blast Cells # 0.0 K/mm3 02/03/22 04:00 WBC Morphology Not Reportable 02/03/22 04:00 Hypersegmented Neuts Not Reportable 02/03/22 04:00 Hyposegmented Neuts Not Reportable 02/03/22 04:00 Hypogranular Neuts Not Reportable 02/03/22 04:00 Smudge Cells Not Reportable 02/03/22 04:00 Toxic Granulation Not Reportable 02/03/22 04:00 Toxic Vacuolation Not Reportable 02/03/22 04:00 Dohle Bodies Few 02/03/22 04:00 Pelger-Huet Anomaly Not Reportable 02/03/22 04:00 Sung Rods Not Reportable 02/03/22 04:00 Platelet Estimate Consistent w auto 02/03/22 04:00 Clumped Platelets Not Reportable 02/03/22 04:00 Plt Clumps, EDTA Not Reportable 02/03/22 04:00 Large Platelets Not Reportable 02/03/22 04:00 Giant Platelets Not Reportable 02/03/22 04:00 Platelet Satelliting Not Reportable 02/03/22 04:00 Plt Morphology Comment Not Reportable 02/03/22 04:00 RBC Morphology Not Reportable 02/03/22 04:00 Dimorphic RBCs Not Reportable 02/03/22 04:00 Polychromasia Not Reportable 02/03/22 04:00 Hypochromasia 3+ 02/03/22 04:00 Poikilocytosis 2+ 02/03/22 04:00 Anisocytosis 1+ 02/03/22 04:00 Microcytosis 2+ 02/03/22 04:00 Macrocytosis Not Reportable 02/03/22 04:00 Spherocytes Not Reportable 02/03/22 04:00 Pappenheimer Bodies Not Reportable 02/03/22 04:00 Sickle Cells Not Reportable 02/03/22 04:00 Target Cells 1+ 02/03/22 04:00 Tear Drop Cells Few 02/03/22 04:00 Ovalocytes Few 02/03/22 04:00 Helmet Cells Not Reportable 02/03/22 04:00 [place] Bodies Not Reportable 02/03/22 04:00 [place] Rings Not Reportable 02/03/22 04:00 Big [place] Cells 1+ 02/03/22 04:00 Bite Cells Not Reportable 02/03/22 04:00 Crenated Cell Not Reportable 02/03/22 04:00 Elliptocytes Few 02/03/22 04:00 Acanthocytes (Spur) Not Reportable 02/03/22 04:00 Rouleaux Not Reportable 02/03/22 04:00 Hemoglobin C Crystals Not Reportable 02/03/22 04:00 Schistocytes Rare 02/03/22 04:00 Malaria parasites Not Reportable 02/03/22 04:00 Sven Bodies Not Reportable 02/03/22 04:00 Hem Pathologist Commnt No 02/03/22 04:00 ABG pH 7.374 pH Units (7.350-7.450) 02/03/22 04:20 POC ABG pCO2 37.3 mmHg (32.0-48.0) 02/02/22 04:49 ABG pCO2 38.7 mm Hg 02/03/22 04:20 POC ABG pO2 79.9 mmHg (83-108) L 02/02/22 04:49 ABG pO2 75.5 mm Hg (80.0-90.0) L 02/03/22 04:20 POC ABG HCO3 30.3 02/02/22 04:49 ABG HCO3 22.1 mmol/L (20.0-26.0) 02/03/22 04:20 ABG O2 Saturation 96.2 % (95.0-99.0) 02/03/22 04:20 ABG O2 Content 10.9 (0.0-44) 02/03/22 04:20 POC ABG Base Excess 7.1 02/02/22 04:49 ABG Base Excess -2.8 mmol/L (-2.0-3.0) L 02/03/22 04:20 ABG Hemoglobin 8.1 gm/dl (12.0-16.0) L 02/03/22 04:20 ABG Oxyhemoglobin 96.0 (94-98) 02/02/22 04:49 ABG Carboxyhemoglobin 1.0 % (0.0-5.0) 02/03/22 04:20 ABG Methemoglobin 0.6 % (0.0-1.5) 02/03/22 04:20 ABG Sodium Not Reportable 02/02/22 04:49 ABG Potassium Not Reportable 02/02/22 04:49 ABG Chloride Not Reportable 02/02/22 04:49 ABG Glucose Not Reportable 02/02/22 04:49 Oxyhemoglobin 94.6 % (95.0-99.0) L 02/03/22 04:20 Carboxyhemoglobin 0.2 (0.5-1.5) L 02/02/22 04:49 FiO2 75 % 02/03/22 04:20 FiO2 % 60.0 02/02/22 04:49 Sodium 147 mmol/L (137-145) H 02/03/22 04:00 Potassium 4.1 mmol/L (3.6-5.0) D 02/03/22 04:00 Chloride 112.9 mmol/L (98-107) H 02/03/22 04:00 Carbon Dioxide 23 mmol/L (22-30) 02/03/22 04:00 Anion Gap 15 mmol/L 02/03/22 04:00 BUN 15 mg/dL (7-17) 02/03/22 04:00 Creatinine 0.8 mg/dL (0.6-1.2) 02/03/22 04:00 Estimated GFR > 60 ml/min 02/03/22 04:00 BUN/Creatinine Ratio 19 % 02/03/22 04:00 Glucose 281 mg/dL (65-100) H 02/03/22 04:00 POC Glucose 247 mg/dL (70-105) H 02/03/22 05:26 Hemoglobin A1c 11.1 % (4-6) H 02/01/22 12:54 Lactic Acid 2.00 mmol/L (0.7-2.0) 02/02/22 Unknown Calcium 7.8 mg/dL (8.4-10.2) L 02/03/22 04:00 Phosphorus 3.60 mg/dL (2.5-4.5) D 02/03/22 04:00 Magnesium 2.10 mg/dL (1.7-2.3) 02/03/22 04:00 Total Bilirubin 0.50 mg/dL (0.1-1.2) 02/03/22 04:00 Direct Bilirubin 0.3 mg/dL (0-0.2) H 02/03/22 04:00 Indirect Bilirubin 0.2 mg/dL 02/03/22 04:00 AST 172 units/L (5-40) H 02/03/22 04:00 ALT 89 units/L (7-56) H 02/03/22 04:00 Alkaline Phosphatase 105 units/L (35-129) 02/03/22 04:00 Total Protein 4.7 g/dL (6.3-8.2) L D 02/03/22 04:00 Albumin 2.0 g/dL (3.9-5) L 02/03/22 04:00 Albumin/Globulin Ratio 0.7 % 02/03/22 04:00 Arterial Blood Glucose Not Reportable 02/02/22 04:49 Urine Color Yellow (Yellow) 01/31/22 22:49 Urine Turbidity Hazy (Clear) 01/31/22 22:49 Urine pH 5.0 (5.0-7.0) 01/31/22 22:49 Ur Specific [place] 1.035 (1.003-1.030) H 01/31/22 22:49 Urine Protein 100 mg/dl mg/dL (Negative) 01/31/22 22:49 Urine Glucose (UA) Negative mg/dL (Negative) 01/31/22 22:49 Urine Ketones 300 mg/dL (Negative) 01/31/22 22:49 Urine Blood Small (Negative) A 01/31/22 22:49 Urine Nitrite Negative (Negative) 01/31/22 22:49 Ur Reducing Substances Not Reportable 01/31/22 22:49 Urine Bilirubin Negative (Negative) 01/31/22 22:49 Urine Ictotest Not Reportable 01/31/22 22:49 Urine Urobilinogen < 2.0 mg/dL (<2.0) 01/31/22 22:49 Ur Leukocyte Esterase Negative (Negative) 01/31/22 22:49 Urine WBC (Auto) 142.0 /HPF (0.0-6.0) H 01/31/22 22:49 Urine RBC (Auto) 107.0 /HPF (0.0-6.0) 01/31/22 22:49 U Epithel Cells (Auto) 1.0 /HPF (0-13.0) 01/31/22 22:49 Urine Mucus Few /HPF 01/31/22 22:49 Urine Yeast (Budding) 3+ /HPF 01/31/22 22:49 Coronavirus (PCR) Negative (Negative) 02/02/22 10:44 SARS-CoV-2 (PCR) Negative (Negative) 02/01/22 08:50 Microbiology: Microbiology 01/31/22 20:33 Peripheral/Venous Blood Culture - Preliminary NO GROWTH AFTER 48 HOURS 01/31/22 20:33 Peripheral/Venous Blood Culture - Preliminary NO GROWTH AFTER 48 HOURS Gastelum/IV: Voiding Method External Female Catheter Active Medications - Current Medications Current Medications: Generic Name Dose Route Start Last Admin Trade Name Freq PRN Reason Stop Dose Admin Acetaminophen 650 mg 02/01/22 00:57 02/02/22 23:48 Acetaminophen 325 Mg Tab PO 650 mg Q4H PRN Administration Pain MILD(1-3)/Fever >100.5/ROSADO Albuterol 2.5 mg 02/01/22 00:57 Albuterol 2.5 Mg/3 Ml Nebu IH Q3HRT PRN Shortness Of Breath Albuterol/Ipratropium 1 ampul 02/01/22 05:30 02/01/22 05:42 Ipratropium/Albuterol Sulfate 3 Ml Ampul.Neb IH 1 ampul Q4HRT PRN Administration Dyspnea Lipase/Protease/Amylase 1 each 02/02/22 08:08 Lipase 10,500/Protease 25,000/Amylase 43,750 (Units) Dr Cap FEEDTUBE PRN PRN For Clogged Feeding Tube Atorvastatin Calcium 20 mg 02/03/22 22:00 Atorvastatin 20 Mg Tab FEEDTUBE QHS JAMIL Dextrose 50 ml 02/02/22 08:00 02/02/22 09:03 Dextrose 50% In Water (25gm) 50 Ml Syringe IV 50 ml Q30MIN PRN Administration Hypoglycemia Protocol Famotidine 20 mg 02/01/22 10:00 02/03/22 09:05 Famotidine 20 Mg/2 Ml Inj IV 20 mg BID JAMIL Administration Fentanyl 50 mcg 02/02/22 09:45 02/03/22 09:43 Fentanyl 100 Mcg/2 Ml Inj IV 50 mcg Q10MIN PRN Administration ANALGESIA Hydrophilic Ointment 1 applic 02/01/22 18:52 Lip Therapy Vaseline TP Q2HR PRN Dry Lips Cefepime HCl 2 gm in 100 mls @ 200 mls/hr 02/01/22 17:00 02/03/22 05:26 Cefepime/Ns 2 Gm/100 Ml IV 200 mls/hr Q12H JAMIL Administration Protocol NORepinephrine/NS 8 MG-250 ML 8 mg in 250 mls @ 3.75 mls/hr 02/01/22 20:00 02/03/22 06:06 Norepinephrine/Ns 8 Mg-250 Ml (Double Conc) IV 4 mcg/min TITRATE JAMIL 7.5 mls/hr Titration Protocol 2 MCG/MIN Propofol 1,000 mg in 100 mls @ 1.429 mls/hr 02/01/22 19:17 02/03/22 10:15 Diprivan 10 Mg/Ml IV 15 mcg/kg/min TITR JAMIL 4.286 mls/hr Titration Protocol 5 MCG/KG/MIN Fentanyl Citrate 2,000 mcg in 100 mls @ 2.381 mls/hr 02/02/22 10:00 02/03/22 09:52 Fentanyl Drip Premix IV 2 mcg/kg/hr TITR JAMIL 4.763 mls/hr Titration Protocol 1 MCG/KG/HR Vancomycin HCl 750 mg/ Sodium 265 mls @ 166.667 mls/hr 02/02/22 13:00 02/03/22 06:01 Chloride IV Infused Q12H JAMIL Infusion Lactated Ringer's 1,000 mls @ 999 mls/hr 02/03/22 11:27 Lactated Ringers IV 02/03/22 12:27 BOLUS ONE Insulin Glargine 20 units 02/03/22 08:00 02/03/22 08:55 Insulin Glargine 100 Units/Ml SUB-Q 20 units QAMDIAB JAMIL Administration Insulin Human Regular 0 units 02/02/22 18:00 02/03/22 05:26 Insulin Regular, Human 100 Units/1 Ml SUB-Q 3 units Q6H JAMIL Administration Protocol Multi-Ingred Cream/Lotion/Oil/Oint 1 applic 02/01/22 18:52 Mineral Oil/Petrolatum, White Ophth Oint 3.5 Gm OU Q4HR PRN Dry Eye(s) Ondansetron HCl 4 mg 02/01/22 00:57 Ondansetron 4 Mg/2 Ml Inj IV Q8H PRN Nausea And Vomiting Senna/Docusate Sodium 1 tab 02/02/22 22:00 02/02/22 22:14 Sennosides/Docusate Sodium 8.6/50 Mg Tab FEEDTUBE 1 tab QHS JAMIL Administration Simple Syrup 15 ml 02/02/22 08:08 Simple Syrup 15 Ml FEEDTUBE PRN PRN Hypoglycemia Simple Syrup 30 ml 02/02/22 08:08 Simple Syrup 15 Ml FEEDTUBE PRN PRN Hypoglycemia Sodium Bicarbonate 325 mg 02/02/22 08:08 Sodium Bicarbonate 325 Mg Tab FEEDTUBE PRN PRN For Clogged Feeding Tube Sodium Chloride 10 ml 02/01/22 10:00 02/03/22 09:06 Sodium Chloride 0.9% 10 Ml Flush Syringe IV 10 ml BID JAMIL Administration Sodium Chloride 10 ml 02/01/22 00:57 Sodium Chloride 0.9% 10 Ml Flush Syringe IV PRN PRN LINE FLUSH Nutrition/Malnutrition Assess - Dietary Evaluation Nutrition/Malnutrition Findings: Nutrition Notes Start: 02/01/22 17:50 Freq: Status: Active Protocol: Document 02/01/22 17:50 JACQUELINE (Rec: 02/01/22 18:11 JACQUELINE [id number]) Nutrition Notes Need for Assessment generated from: Low BMI Initial or Follow up Brief Note Current Diagnosis Diabetes,Sepsis Other 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 Current Diet NPO (since 02/01 17:49) Labs/Tests 0729: Na 148, K 3.0, Cl 117.3, CO2 9, Glu 439, Ca 7.7. Pertinent Medications 02/01: Insulin 16U, KPO4 45mmol, others nutritionally unremarkable. 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 Weight Status Underweight Subjective/Other Information RD consult for Low BMI and malnutrition assessments. Pt has been intubated few minutes ago, not enough information available to assess for Low BMI and malnutrition at this time, will assess at F/U. Nutrition Intervention Follow-Up By: 02/04/22 <MELISSA WHITE - Last Filed: 02/04/22 07:34> Assessment and Plan Assessment and plan: I saw and evaluated the patient. I agree with the findings and the plan of care as documented in the Nurse Practitioner's~note, with the following corrections and additions. Hospitalist Physical - Constitutional Vitals: Temp Pulse Resp BP Pulse Ox 100 F H 116 H 10 L 91/60 94 02/04/22 04:00 02/04/22 06:00 02/04/22 06:00 02/04/22 06:00 02/04/22 06:00 HEART Score - HEART Score Troponin: Troponin T < 0.010 ng/mL (0.00-0.029) 02/03/22 16:15 Results - Labs CBC & Chem 7: 02/04/22 03:18 02/04/22 02:44 Labs: Laboratory Last Values WBC 1.2 K/mm3 (4.5-11.0) L* 02/04/22 03:18 RBC 4.54 M/mm3 (3.65-5.03) 02/04/22 03:18 Hgb 8.2 gm/dl (10.1-14.3) L 02/04/22 03:18 Hct 26.6 % (30.3-42.9) L 02/04/22 03:18 MCV 59 fl (79-97) L 02/04/22 03:18 MCH 18 pg (28-32) L 02/04/22 03:18 MCHC 31 % (30-34) 02/04/22 03:18 RDW 19.6 % (13.2-15.2) H 02/04/22 03:18 Plt Count 50 K/mm3 (140-440) L 02/04/22 03:18 Lymph % (Auto) Packager Or Packer And Weigher 02/02/22 04:00 Add Manual Diff Complete 02/03/22 04:00 Total Counted 50 02/03/22 04:00 Seg Neutrophils % Packager Or Packer And Weigher 02/02/22 04:00 Seg Neuts % (Manual) 76.0 % (40.0-70.0) H 02/03/22 04:00 Band Neutrophils % 18.0 % 02/03/22 04:00 Lymphocytes % (Manual) 2.0 % (13.4-35.0) L 02/03/22 04:00 Reactive Lymphs % (Man) 0 % 02/03/22 04:00 Monocytes % (Manual) 4.0 % (0.0-7.3) 02/03/22 04:00 Eosinophils % (Manual) 0 % (0.0-4.3) 02/03/22 04:00 Basophils % (Manual) 0 % (0.0-1.8) 02/03/22 04:00 Metamyelocytes % 0 % 02/03/22 04:00 Myelocytes % 0 % 02/03/22 04:00 Promyelocytes % 0 % 02/03/22 04:00 Blast Cells % 0 % 02/03/22 04:00 Nucleated RBC % 4.0 % (0.0-0.9) H 02/03/22 04:00 Seg Neutrophils # Man 2.8 K/mm3 (1.8-7.7) 02/03/22 04:00 Band Neutrophils # 0.7 K/mm3 02/03/22 04:00 Lymphocytes # (Manual) 0.1 K/mm3 (1.2-5.4) L 02/03/22 04:00 Abs React Lymphs (Man) 0.0 K/mm3 02/03/22 04:00 Monocytes # (Manual) 0.1 K/mm3 (0.0-0.8) 02/03/22 04:00 Eosinophils # (Manual) 0.0 K/mm3 (0.0-0.4) 02/03/22 04:00 Basophils # (Manual) 0.0 K/mm3 (0.0-0.1) 02/03/22 04:00 Metamyelocytes # 0.0 K/mm3 02/03/22 04:00 Myelocytes # 0.0 K/mm3 02/03/22 04:00 Promyelocytes # 0.0 K/mm3 02/03/22 04:00 Blast Cells # 0.0 K/mm3 02/03/22 04:00 WBC Morphology Not Reportable 02/03/22 04:00 Hypersegmented Neuts Not Reportable 02/03/22 04:00 Hyposegmented Neuts Not Reportable 02/03/22 04:00 Hypogranular Neuts Not Reportable 02/03/22 04:00 Smudge Cells Not Reportable 02/03/22 04:00 Toxic Granulation Not Reportable 02/03/22 04:00 Toxic Vacuolation Not Reportable 02/03/22 04:00 Dohle Bodies Few 02/03/22 04:00 Pelger-Huet Anomaly Not Reportable 02/03/22 04:00 Sung Rods Not Reportable 02/03/22 04:00 Platelet Estimate Consistent w auto 02/03/22 04:00 Clumped Platelets Not Reportable 02/03/22 04:00 Plt Clumps, EDTA Not Reportable 02/03/22 04:00 Large Platelets Not Reportable 02/03/22 04:00 Giant Platelets Not Reportable 02/03/22 04:00 Platelet Satelliting Not Reportable 02/03/22 04:00 Plt Morphology Comment Not Reportable 02/03/22 04:00 RBC Morphology Not Reportable 02/03/22 04:00 Dimorphic RBCs Not Reportable 02/03/22 04:00 Polychromasia Not Reportable 02/03/22 04:00 Hypochromasia 3+ 02/03/22 04:00 Poikilocytosis 2+ 02/03/22 04:00 Anisocytosis 1+ 02/03/22 04:00 Microcytosis 2+ 02/03/22 04:00 Macrocytosis Not Reportable 02/03/22 04:00 Spherocytes Not Reportable 02/03/22 04:00 Pappenheimer Bodies Not Reportable 02/03/22 04:00 Sickle Cells Not Reportable 02/03/22 04:00 Target Cells 1+ 02/03/22 04:00 Tear Drop Cells Few 02/03/22 04:00 Ovalocytes Few 02/03/22 04:00 Helmet Cells Not Reportable 02/03/22 04:00 [place] Bodies Not Reportable 02/03/22 04:00 [place] Rings Not Reportable 02/03/22 04:00 [place] Cells 1+ 02/03/22 04:00 Bite Cells Not Reportable 02/03/22 04:00 Crenated Cell Not Reportable 02/03/22 04:00 Elliptocytes Few 02/03/22 04:00 Acanthocytes (Spur) Not Reportable 02/03/22 04:00 Rouleaux Not Reportable 02/03/22 04:00 Hemoglobin C Crystals Not Reportable 02/03/22 04:00 Schistocytes Rare 02/03/22 04:00 Malaria parasites Not Reportable 02/03/22 04:00 Sven Bodies Not Reportable 02/03/22 04:00 Hem Pathologist Commnt No 02/03/22 04:00 ABG pH 7.311 pH Units (7.350-7.450) L 02/04/22 05:15 POC ABG pCO2 37.3 mmHg (32.0-48.0) 02/02/22 04:49 ABG pCO2 50.4 mm Hg 02/04/22 05:15 POC ABG pO2 79.9 mmHg (83-108) L 02/02/22 04:49 ABG pO2 50.1 mm Hg (80.0-90.0) L 02/04/22 05:15 POC ABG HCO3 30.3 02/02/22 04:49 ABG HCO3 24.8 mmol/L (20.0-26.0) 02/04/22 05:15 ABG O2 Saturation 83.6 % (95.0-99.0) L 02/04/22 05:15 ABG O2 Content 9.9 (0.0-44) 02/04/22 05:15 POC ABG Base Excess 7.1 02/02/22 04:49 ABG Base Excess -1.5 mmol/L (-2.0-3.0) 02/04/22 05:15 ABG Hemoglobin 8.6 gm/dl (12.0-16.0) L 02/04/22 05:15 ABG Oxyhemoglobin 96.0 (94-98) 02/02/22 04:49 ABG Carboxyhemoglobin 1.3 % (0.0-5.0) 02/04/22 05:15 ABG Methemoglobin 0.7 % (0.0-1.5) 02/04/22 05:15 ABG Sodium Not Reportable 02/02/22 04:49 ABG Potassium Not Reportable 02/02/22 04:49 ABG Chloride Not Reportable 02/02/22 04:49 ABG Glucose Not Reportable 02/02/22 04:49 Oxyhemoglobin 81.9 % (95.0-99.0) L 02/04/22 05:15 Carboxyhemoglobin 0.2 (0.5-1.5) L 02/02/22 04:49 FiO2 75 % 02/04/22 05:15 FiO2 % 60.0 02/02/22 04:49 Sodium 148 mmol/L (137-145) H 02/04/22 02:44 Potassium 4.5 mmol/L (3.6-5.0) 02/04/22 02:44 Chloride 116.3 mmol/L (98-107) H 02/04/22 02:44 Carbon Dioxide 26 mmol/L (22-30) 02/04/22 02:44 Anion Gap 10 mmol/L 02/04/22 02:44 BUN 17 mg/dL (7-17) 02/04/22 02:44 Creatinine 0.8 mg/dL (0.6-1.2) 02/04/22 02:44 Estimated GFR > 60 ml/min 02/04/22 02:44 BUN/Creatinine Ratio 21 % 02/04/22 02:44 Glucose 139 mg/dL (65-100) H 02/04/22 02:44 POC Glucose 115 mg/dL (70-105) H 02/04/22 05:26 Hemoglobin A1c 11.1 % (4-6) H 02/01/22 12:54 Lactic Acid 2.00 mmol/L (0.7-2.0) 02/02/22 Unknown Calcium 8.6 mg/dL (8.4-10.2) 02/04/22 02:44 Phosphorus 3.40 mg/dL (2.5-4.5) 02/04/22 02:44 Magnesium 2.20 mg/dL (1.7-2.3) 02/04/22 02:44 Total Bilirubin 0.40 mg/dL (0.1-1.2) 02/04/22 02:44 Direct Bilirubin 0.3 mg/dL (0-0.2) H 02/04/22 02:44 Indirect Bilirubin 0.1 mg/dL 02/04/22 02:44 AST 92 units/L (5-40) H 02/04/22 02:44 ALT 76 units/L (7-56) H 02/04/22 02:44 Alkaline Phosphatase 117 units/L (35-129) 02/04/22 02:44 Troponin T < 0.010 ng/mL (0.00-0.029) 02/03/22 16:15 Total Protein 4.7 g/dL (6.3-8.2) L 02/04/22 02:44 Albumin 1.6 g/dL (3.9-5) L 02/04/22 02:44 Albumin/Globulin Ratio 0.5 % 02/04/22 02:44 Arterial Blood Glucose Not Reportable 02/02/22 04:49 Urine Color Yellow (Yellow) 01/31/22 22:49 Urine Turbidity Hazy (Clear) 01/31/22 22:49 Urine pH 5.0 (5.0-7.0) 01/31/22 22:49 Ur Specific [place] 1.035 (1.003-1.030) H 01/31/22 22:49 Urine Protein 100 mg/dl mg/dL (Negative) 01/31/22 22:49 Urine Glucose (UA) Negative mg/dL (Negative) 01/31/22 22:49 Urine Ketones 300 mg/dL (Negative) 01/31/22 22:49 Urine Blood Small (Negative) A 01/31/22 22:49 Urine Nitrite Negative (Negative) 01/31/22 22:49 Ur Reducing Substances Not Reportable 01/31/22 22:49 Urine Bilirubin Negative (Negative) 01/31/22 22:49 Urine Ictotest Not Reportable 01/31/22 22:49 Urine Urobilinogen < 2.0 mg/dL (<2.0) 01/31/22 22:49 Ur Leukocyte Esterase Negative (Negative) 01/31/22 22:49 Urine WBC (Auto) 142.0 /HPF (0.0-6.0) H 01/31/22 22:49 Urine RBC (Auto) 107.0 /HPF (0.0-6.0) 01/31/22 22:49 U Epithel Cells (Auto) 1.0 /HPF (0-13.0) 01/31/22 22:49 Urine Mucus Few /HPF 01/31/22 22:49 Urine Yeast (Budding) 3+ /HPF 01/31/22 22:49 Coronavirus (PCR) Negative (Negative) 02/02/22 10:44 SARS-CoV-2 (PCR) Negative (Negative) 02/01/22 08:50 Microbiology: Microbiology 01/31/22 20:33 Peripheral/Venous Blood Culture - Preliminary NO GROWTH AFTER 72 HOURS 01/31/22 20:33 Peripheral/Venous Blood Culture - Preliminary NO GROWTH AFTER 72 HOURS 02/01/22 17:31 Tracheal Aspirate Sputum Culture - Preliminary Gram Negative Zak Gastelum/IV: Voiding Method External Female Catheter Active Medications - Current Medications Current Medications: Generic Name Dose Route Start Last Admin Trade Name Freq PRN Reason Stop Dose Admin Acetaminophen 650 mg 02/01/22 00:57 02/02/22 23:48 Acetaminophen 325 Mg Tab PO 650 mg Q4H PRN Administration Pain MILD(1-3)/Fever >100.5/ROSADO Albuterol 2.5 mg 02/01/22 00:57 Albuterol 2.5 Mg/3 Ml Nebu IH Q3HRT PRN Shortness Of Breath Lipase/Protease/Amylase 1 each 02/02/22 08:08 Lipase 10,500/Protease 25,000/Amylase 43,750 (Units) Dr Avelar FEEDTUBE PRN PRN For Clogged Feeding Tube Atorvastatin Calcium 20 mg 02/03/22 22:00 02/03/22 21:10 Atorvastatin 20 Mg Tab FEEDTUBE 20 mg QHS JAMIL Administration Dextrose 50 ml 02/02/22 08:00 02/02/22 09:03 Dextrose 50% In Water (25gm) 50 Ml Syringe IV 50 ml Q30MIN PRN Administration Hypoglycemia Protocol Famotidine 20 mg 02/04/22 10:00 Famotidine 20 Mg Tab FEEDTUBE BID JAMIL Fentanyl 50 mcg 02/02/22 09:45 02/03/22 09:43 Fentanyl 100 Mcg/2 Ml Inj IV 50 mcg Q10MIN PRN Administration ANALGESIA Hydrophilic Ointment 1 applic 02/01/22 18:52 Lip Therapy Vaseline TP Q2HR PRN Dry Lips Cefepime HCl 2 gm in 100 mls @ 200 mls/hr 02/01/22 17:00 02/04/22 05:26 Cefepime/Ns 2 Gm/100 Ml IV 200 mls/hr Q12H JAMIL Administration Protocol NORepinephrine/NS 8 MG-250 ML 8 mg in 250 mls @ 3.75 mls/hr 02/01/22 20:00 02/04/22 06:46 Norepinephrine/Ns 8 Mg-250 Ml (Double Conc) IV 8 mcg/min TITRATE JAMIL 15 mls/hr Titration Protocol 2 MCG/MIN Propofol 1,000 mg in 100 mls @ 1.429 mls/hr 02/01/22 19:17 02/03/22 22:08 Diprivan 10 Mg/Ml IV 20 mcg/kg/min TITR JAMIL 5.715 mls/hr Administration Protocol 5 MCG/KG/MIN Fentanyl Citrate 2,000 mcg in 100 mls @ 2.381 mls/hr 02/02/22 10:00 02/04/22 02:19 Fentanyl Drip Premix IV 3 mcg/kg/hr TITR JAMIL 7.144 mls/hr Administration Protocol 1 MCG/KG/HR Vancomycin HCl 750 mg/ Sodium 265 mls @ 166.667 mls/hr 02/02/22 13:00 02/04 00:26 Chloride IV 167 mls/hr Q12H JAMIL Administration Phenylephrine HCl 100 mg/ 100 mls @ 3 mls/hr 02/03/22 14:15 02/04/22 05:23 Sodium Chloride IV 200 mcg/min TITR JAMIL 12 mls/hr Titration Protocol 50 MCG/MIN Sodium Chloride 500 mls @ 5 mls/hr 02/04/22 03:00 02/04/22 04:04 Nacl 0.9% 500 Ml IV 5 mls/hr DIRECT JAMIL Administration Insulin Glargine 20 units 02/03/22 08:00 02/03/22 08:55 Insulin Glargine 100 Units/Ml SUB-Q 20 units QAMDIAB JAMIL Administration Insulin Human Regular 0 units 02/02/22 18:00 02/04/22 05:28 Insulin Regular, Human 100 Units/1 Ml SUB-Q Not Given Q6H [facility] Protocol Multi-Ingred Cream/Lotion/Oil/Oint 1 applic 02/01/22 18:52 Mineral Oil/Petrolatum, White Ophth Oint 3.5 Gm OU Q4HR PRN Dry Eye(s) Ondansetron HCl 4 mg 02/01/22 00:57 Ondansetron 4 Mg/2 Ml Inj IV Q8H PRN Nausea And Vomiting Senna/Docusate Sodium 1 tab 02/02/22 22:00 02/03/22 21:10 Sennosides/Docusate Sodium 8.6/50 Mg Tab FEEDTUBE 1 tab QHS JAMIL Administration Simple Syrup 15 ml 02/02/22 08:08 Simple Syrup 15 Ml FEEDTUBE PRN PRN Hypoglycemia Simple Syrup 30 ml 02/02/22 08:08 Simple Syrup 15 Ml FEEDTUBE PRN PRN Hypoglycemia Sodium Bicarbonate 325 mg 02/02/22 08:08 Sodium Bicarbonate 325 Mg Tab FEEDTUBE PRN PRN For Clogged Feeding Tube Sodium Chloride 10 ml 02/01/22 10:00 02/03/22 22:46 Sodium Chloride 0.9% 10 Ml Flush Syringe IV 10 ml BID JAMLI Administration Sodium Chloride 10 ml 02/01/22 00:57 Sodium Chloride 0.9% 10 Ml Flush Syringe IV PRN PRN LINE FLUSH Nutrition/Malnutrition Assess - Dietary Evaluation Nutrition/Malnutrition Findings: Nutrition Notes Start: 02/01/22 17:50 Freq: Status: Active Protocol: Document 02/01/22 17:50 JACQUELINE (Rec: 02/01/22 18:11 JACQUELINE [id number]) Nutrition Notes Need for Assessment generated from: Low BMI Initial or Follow up Brief Note Current Diagnosis Diabetes,Sepsis Other 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 Current Diet NPO (since 02/01 17:49) Labs/Tests 0729: Na 148, K 3.0, Cl 117.3, CO2 9, Glu 439, Ca 7.7. Pertinent Medications 02/01: Insulin 16U, KPO4 45mmol, others nutritionally unremarkable. 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 Weight Status Underweight Subjective/Other Information RD consult for Low BMI and malnutrition assessments. Pt has been intubated few minutes ago, not enough information available to assess for Low BMI and malnutrition at this time, will assess at F/U. Nutrition Intervention Follow-Up By: 02/04/22
[2022-02-03] MEDS: fentaNYL DRIP Premix 2,000 MCG/100 ML BAG IV SCH (12:02)
--- NOTE | 2022-02-03 12:03 | Progress Note ---
Assessment and Plan 02/03/22: Needs repeat culture with next fever spike. concern now that she is still spiking temps on broad spec abx. may need to broaden even more with antifungal but will discuss tomorrow with pharmacy tomorrow. pH is better but worsening hypoxemia. CXR shows bilateral infiltrates. Will consider bronch tomorrow for washing to be sent for culture. Consider Heme consult tomorrow. Echo was stable. Guarded to poor prognosis. Sugar is better today. 02/02/22: Wean Vasopressors as tolerated for maps >65. Check echo. Stop insul in therapy. Q1hour fSbs and cover with sliding scale. Repeat ABG later today to follow pH. May need some diamox later. Patient now neutropenic and thrombocytopenic, repeated CBC and still the same. may need to consider heme consult. For now continue broad spec abx therapy. prognosis is guarded to poor. 2 amps of NaBicarb pushed Started on Insulin drip Central line placement secondary to lack of access Aggressive volume resuscitation q1 hour fsbs and q6 hour BMPs for the next 36-48 hours Supplemental O2 Not a candidate for bipap currently given mental state so if her respiratory status deteriorates would need intubation. Guarded prognosis. Spoke with daughter briefly at bedside. She did not get off her cell phone so not able to have a full conversation with her about her mother. CCT 31 minutes. Subjective Date of service: 02/03/22 Interval history: Remains intubated and on continued sedation. Now more tachycardic. Renal function is stable. White count now is 4. Spiked temp to 102 last night but not cultured. Prior cultures negative. No family present at bedside. Objective - Constitutional Vitals: Vital Signs - 12hr 02/03/22 02/03/22 02/03/22 00:00 00:15 00:30 Temperature Pulse Rate 118 H 126 H 121 H Pulse Rate [ From Monitor] Respiratory 14 10 L 12 Rate Blood Pressure 83/62 81/54 85/55 O2 Sat by Pulse 100 Oximetry 02/03/22 02/03/22 02/03/22 00:45 01:00 01:15 Temperature 100.1 F H Pulse Rate 118 H 118 H 115 H Pulse Rate [ From Monitor] Respiratory 9 L 10 L 11 L Rate Blood Pressure 83/62 86/59 97/70 O2 Sat by Pulse 95 100 Oximetry 02/03/22 02/03/22 02/03/22 01:30 01:45 02:00 Temperature Pulse Rate 114 H 115 H 121 H Pulse Rate [ From Monitor] Respiratory 11 L 12 16 Rate Blood Pressure 88/62 93/63 104/75 O2 Sat by Pulse 99 100 Oximetry 02/03/22 02/03/22 02/03/22 02:15 02:30 02:45 Temperature Pulse Rate 118 H 113 H 117 H Pulse Rate [ From Monitor] Respiratory 12 11 L 14 Rate Blood Pressure 91/65 83/62 93/68 O2 Sat by Pulse 100 100 100 Oximetry 02/03/22 02/03/22 02/03/22 03:00 03:15 03:30 Temperature Pulse Rate 118 H 118 H 120 H Pulse Rate [ From Monitor] Respiratory 16 11 L 11 L Rate Blood Pressure 95/60 101/65 89/56 O2 Sat by Pulse 100 100 100 Oximetry 02/03/22 02/03/22 02/03/22 03:45 04:00 04:15 Temperature 99.5 F Pulse Rate 122 H 121 H 124 H Pulse Rate [ From Monitor] Respiratory 14 13 15 Rate Blood Pressure 98/66 89/62 106/74 O2 Sat by Pulse 98 Oximetry 02/03/22 02/03/22 02/03/22 04:30 04:45 05:00 Temperature Pulse Rate 123 H 122 H 120 H Pulse Rate [ From Monitor] Respiratory 13 14 11 L Rate Blood Pressure 92/72 101/69 101/69 O2 Sat by Pulse 100 99 100 Oximetry 02/03/22 02/03/22 02/03/22 05:15 05:30 05:45 Temperature Pulse Rate 121 H 123 H 122 H Pulse Rate [ From Monitor] Respiratory 12 12 18 Rate Blood Pressure 96/65 93/65 94/66 O2 Sat by Pulse 100 98 Oximetry 02/03/22 02/03/22 02/03/22 06:00 06:15 06:30 Temperature Pulse Rate 121 H 126 H 124 H Pulse Rate [ From Monitor] Respiratory 16 19 14 Rate Blood Pressure 94/62 95/64 91/65 O2 Sat by Pulse 98 97 89 Oximetry 02/03/22 02/03/22 02/03/22 06:45 07:00 07:15 Temperature Pulse Rate 125 H 126 H 126 H Pulse Rate [ From Monitor] Respiratory 13 13 15 Rate Blood Pressure 95/65 95/70 91/64 O2 Sat by Pulse 100 98 100 Oximetry 02/03/22 02/03/22 02/03/22 07:30 07:45 08:00 Temperature 99.0 F Pulse Rate 126 H 129 H 128 H Pulse Rate [ 128 H From Monitor] Respiratory 15 14 16 Rate Blood Pressure 100/68 96/70 90/67 O2 Sat by Pulse 99 95 Oximetry 02/03/22 02/03/22 02/03/22 08:15 08:27 08:30 Temperature Pulse Rate 130 H 134 H 134 H Pulse Rate [ From Monitor] Respiratory 13 25 H Rate Blood Pressure 82/64 106/73 82/64 O2 Sat by Pulse 97 95 Oximetry 02/03/22 02/03/22 02/03/22 08:45 09:00 09:15 Temperature Pulse Rate 131 H 132 H 136 H Pulse Rate [ From Monitor] Respiratory 18 17 22 Rate Blood Pressure 94/65 96/63 109/77 O2 Sat by Pulse 92 61 L Oximetry 02/03/22 02/03/22 02/03/22 09:30 09:43 09:45 Temperature Pulse Rate 129 H 133 H Pulse Rate [ From Monitor] Respiratory 15 21 18 Rate Blood Pressure 109/77 104/69 O2 Sat by Pulse 92 Oximetry 02/03/22 02/03/22 02/03/22 10:00 10:15 10:30 Temperature Pulse Rate 131 H 134 H 133 H Pulse Rate [ From Monitor] Respiratory 9 L 14 14 Rate Blood Pressure 91/55 90/61 88/59 O2 Sat by Pulse 94 96 95 Oximetry 02/03/22 02/03/22 02/03/22 10:45 11:00 11:57 Temperature Pulse Rate 133 H 134 H 134 H Pulse Rate [ From Monitor] Respiratory 12 12 Rate Blood Pressure 80/61 84/63 87/66 O2 Sat by Pulse 95 94 Oximetry - Labs CBC & Chem 7: 02/03/22 04:00 02/03/22 04:00 Labs: Abnormal lab results 02/02/22 02/02/22 02/02/22 Range/Units 12:32 15:39 17:07 WBC (4.5-11.0) K/mm3 Hgb (10.1-14.3) gm/dl Hct (30.3-42.9) % MCV (79-97) fl MCH (28-32) pg RDW (13.2-15.2) % Plt Count (140-440) K/mm3 Seg Neuts % (Manual) (40.0-70.0) % Lymphocytes % (Manual) (13.4-35.0) % Nucleated RBC % (0.0-0.9) % Lymphocytes # (Manual) (1.2-5.4) K/mm3 ABG pH 7.457 H (7.350-7.450) pH Units ABG pO2 71.0 L (80.0-90.0) mm Hg ABG O2 Saturation 94.5 L (95.0-99.0) % ABG Base Excess (-2.0-3.0) mmol/L ABG Hemoglobin 9.2 L (12.0-16.0) gm/dl Oxyhemoglobin 93.0 L (95.0-99.0) % Sodium (137-145) mmol/L Potassium (3.6-5.0) mmol/L Chloride (98-107) mmol/L Glucose (65-100) mg/dL POC Glucose 166 H 263 H (70-105) mg/dL Calcium (8.4-10.2) mg/dL Direct Bilirubin (0-0.2) mg/dL AST (5-40) units/L ALT (7-56) units/L Total Protein (6.3-8.2) g/dL Albumin (3.9-5) g/dL 02/02/22 02/02/22 02/03/22 Range/Units 17:50 Unknown 00:08 WBC (4.5-11.0) K/mm3 Hgb (10.1-14.3) gm/dl Hct (30.3-42.9) % MCV (79-97) fl MCH (28-32) pg RDW (13.2-15.2) % Plt Count (140-440) K/mm3 Seg Neuts % (Manual) (40.0-70.0) % Lymphocytes % (Manual) (13.4-35.0) % Nucleated RBC % (0.0-0.9) % Lymphocytes # (Manual) (1.2-5.4) K/mm3 ABG pH (7.350-7.450) pH Units ABG pO2 (80.0-90.0) mm Hg ABG O2 Saturation (95.0-99.0) % ABG Base Excess (-2.0-3.0) mmol/L ABG Hemoglobin (12.0-16.0) gm/dl Oxyhemoglobin (95.0-99.0) % Sodium 147 H (137-145) mmol/L Potassium 5.5 H D (3.6-5.0) mmol/L Chloride 110.8 H (98-107) mmol/L Glucose 271 H (65-100) mg/dL POC Glucose 231 H 231 H (70-105) mg/dL Calcium 7.3 L (8.4-10.2) mg/dL Direct Bilirubin (0-0.2) mg/dL AST (5-40) units/L ALT (7-56) units/L Total Protein (6.3-8.2) g/dL Albumin (3.9-5) g/dL 02/03/22 02/03/22 02/03/22 Range/Units 04:00 04:00 04:20 WBC 3.7 L (4.5-11.0) K/mm3 Hgb 8.0 L (10.1-14.3) gm/dl Hct 25.5 L (30.3-42.9) % MCV 58 L (79-97) fl MCH 18 L (28-32) pg RDW 18.2 H (13.2-15.2) % Plt Count 79 L (140-440) K/mm3 Seg Neuts % (Manual) 76.0 H (40.0-70.0) % Lymphocytes % (Manual) 2.0 L (13.4-35.0) % Nucleated RBC % 4.0 H (0.0-0.9) % Lymphocytes # (Manual) 0.1 L (1.2-5.4) K/mm3 ABG pH (7.350-7.450) pH Units ABG pO2 75.5 L (80.0-90.0) mm Hg ABG O2 Saturation (95.0-99.0) % ABG Base Excess -2.8 L (-2.0-3.0) mmol/L ABG Hemoglobin 8.1 L (12.0-16.0) gm/dl Oxyhemoglobin 94.6 L (95.0-99.0) % Sodium 147 H (137-145) mmol/L Potassium (3.6-5.0) mmol/L Chloride 112.9 H (98-107) mmol/L Glucose 281 H (65-100) mg/dL POC Glucose (70-105) mg/dL Calcium 7.8 L (8.4-10.2) mg/dL Direct Bilirubin 0.3 H (0-0.2) mg/dL AST 172 H (5-40) units/L ALT 89 H (7-56) units/L Total Protein 4.7 L D (6.3-8.2) g/dL Albumin 2.0 L (3.9-5) g/dL 02/03/22 02/03/22 Range/Units 05:26 11:38 WBC (4.5-11.0) K/mm3 Hgb (10.1-14.3) gm/dl Hct (30.3-42.9) % MCV (79-97) fl MCH (28-32) pg RDW (13.2-15.2) % Plt Count (140-440) K/mm3 Seg Neuts % (Manual) (40.0-70.0) % Lymphocytes % (Manual) (13.4-35.0) % Nucleated RBC % (0.0-0.9) % Lymphocytes # (Manual) (1.2-5.4) K/mm3 ABG pH (7.350-7.450) pH Units ABG pO2 (80.0-90.0) mm Hg ABG O2 Saturation (95.0-99.0) % ABG Base Excess (-2.0-3.0) mmol/L ABG Hemoglobin (12.0-16.0) gm/dl Oxyhemoglobin (95.0-99.0) % Sodium (137-145) mmol/L Potassium (3.6-5.0) mmol/L Chloride (98-107) mmol/L Glucose (65-100) mg/dL POC Glucose 247 H 196 H (70-105) mg/dL Calcium (8.4-10.2) mg/dL Direct Bilirubin (0-0.2) mg/dL AST (5-40) units/L ALT (7-56) units/L Total Protein (6.3-8.2) g/dL Albumin (3.9-5) g/dL Medications & Allergies - Medications Allergies/Adverse Reactions: Allergies No Known Allergies Allergy (Verified 01/31/22 17:55) Home Medications: Home Medications Medication Instructions Recorded Confirmed Last Taken Type Ergocalciferol [Vitamin D2] 1 cap PO QWEEK 02/02/22 02/02/22 Unknown History Famotidine [Pepcid] 20 mg PO DAILY 02/02/22 02/02/22 Unknown History Insulin Glargine [Lantus VIAL] 5 unit SUB-Q BID 02/02/22 02/02/22 Unknown History Loratadine [Claritin] 10 mg PO DAILY 02/02/22 02/02/22 Unknown History Mirtazapine [Remeron] 15 mg PO HS 02/02/22 02/02/22 Unknown History Rosuvastatin Calcium [Crestor] 10 mg PO HS 02/02/22 02/02/22 Unknown History carvediloL [Coreg] 3.125 mg PO BID 02/02/22 02/02/22 Unknown History Active Medications: Generic Name Dose Route Start Last Admin Trade Name Freq PRN Reason Stop Dose Admin Acetaminophen 650 mg 02/01/22 00:57 02/02/22 23:48 Acetaminophen 325 Mg Tab PO 650 mg Q4H PRN Administration Pain MILD(1-3)/Fever >100.5/ROSADO Albuterol 2.5 mg 02/01/22 00:57 Albuterol 2.5 Mg/3 Ml Nebu IH Q3HRT PRN Shortness Of Breath Albuterol/Ipratropium 1 ampul 02/01/22 05:30 02/01/22 05:42 Ipratropium/Albuterol Sulfate 3 Ml Ampul.Neb IH 1 ampul Q4HRT PRN Administration Dyspnea Lipase/Protease/Amylase 1 each 02/02/22 08:08 Lipase 10,500/Protease 25,000/Amylase 43,750 (Units) Dr Avelar FEEDTUBE PRN PRN For Clogged Feeding Tube Atorvastatin Calcium 20 mg 02/03/22 22:00 Atorvastatin 20 Mg Tab FEEDTUBE QHS JAMIL Dextrose 50 ml 02/02/22 08:00 02/02/22 09:03 Dextrose 50% In Water (25gm) 50 Ml Syringe IV 50 ml Q30MIN PRN Administration Hypoglycemia Protocol Famotidine 20 mg 02/01/22 10:00 02/03/22 09:05 Famotidine 20 Mg/2 Ml Inj IV 20 mg BID JAMIL Administration Fentanyl 50 mcg 02/02/22 09:45 02/03/22 09:43 Fentanyl 100 Mcg/2 Ml Inj IV 50 mcg Q10MIN PRN Administration ANALGESIA Hydrophilic Ointment 1 applic 02/01/22 18:52 Lip Therapy Vaseline TP Q2HR PRN Dry Lips Cefepime HCl 2 gm in 100 mls @ 200 mls/hr 02/01/22 17:00 02/03/22 05:26 Cefepime/Ns 2 Gm/100 Ml IV 200 mls/hr Q12H JAMIL Administration Protocol NORepinephrine/NS 8 MG-250 ML 8 mg in 250 mls @ 3.75 mls/hr 02/01/22 20:00 02/03/22 06:06 Norepinephrine/Ns 8 Mg-250 Ml (Double Conc) IV 4 mcg/min TITRATE JAMIL 7.5 mls/hr Titration Protocol 2 MCG/MIN Propofol 1,000 mg in 100 mls @ 1.429 mls/hr 02/01/22 19:17 02/03/22 11:30 Diprivan 10 Mg/Ml IV 10 mcg/kg/min TITR JAMIL 2.858 mls/hr Titration Protocol 5 MCG/KG/MIN Fentanyl Citrate 2,000 mcg in 100 mls @ 2.381 mls/hr 02/02/22 10:00 02/03/22 09:52 Fentanyl Drip Premix IV 2 mcg/kg/hr TITR JAMIL 4.763 mls/hr Titration Protocol 1 MCG/KG/HR Vancomycin HCl 750 mg/ Sodium 265 mls @ 166.667 mls/hr 02/02/22 13:00 02/03/22 06:01 Chloride IV Infused Q12H JAMIL Infusion Lactated Ringer's 1,000 mls @ 999 mls/hr 02/03/22 11:27 02/03/22 11:39 Lactated Ringers IV 02/03/22 12:27 999 mls/hr BOLUS ONE Administration Insulin Glargine 20 units 02/03/22 08:00 02/03/22 08:55 Insulin Glargine 100 Units/Ml SUB-Q 20 units QAMDIAB JAMIL Administration Insulin Human Regular 0 units 02/02/22 18:00 02/03/22 05:26 Insulin Regular, Human 100 Units/1 Ml SUB-Q 3 units Q6H JAMIL Administration Protocol Multi-Ingred Cream/Lotion/Oil/Oint 1 applic 02/01/22 18:52 Mineral Oil/Petrolatum, White Ophth Oint 3.5 Gm OU Q4HR PRN Dry Eye(s) Ondansetron HCl 4 mg 02/01/22 00:57 Ondansetron 4 Mg/2 Ml Inj IV Q8H PRN Nausea And Vomiting Senna/Docusate Sodium 1 tab 02/02/22 22:00 02/02/22 22:14 Sennosides/Docusate Sodium 8.6/50 Mg Tab FEEDTUBE 1 tab QHS JAMIL Administration Simple Syrup 15 ml 02/02/22 08:08 Simple Syrup 15 Ml FEEDTUBE PRN PRN Hypoglycemia Simple Syrup 30 ml 02/02/22 08:08 Simple Syrup 15 Ml FEEDTUBE PRN PRN Hypoglycemia Sodium Bicarbonate 325 mg 02/02/22 08:08 Sodium Bicarbonate 325 Mg Tab FEEDTUBE PRN PRN For Clogged Feeding Tube Sodium Chloride 10 ml 02/01/22 10:00 02/03/22 09:06 Sodium Chloride 0.9% 10 Ml Flush Syringe IV 10 ml BID JAMIL Administration Sodium Chloride 10 ml 02/01/22 00:57 Sodium Chloride 0.9% 10 Ml Flush Syringe IV PRN PRN LINE FLUSH
[2022-02-03] MEDS: PHENYLEPHRINE 100 MG in SODIUM CHLORIDE 0.9% 90 ML IV SCH ×2 (14:32→22:33)
[2022-02-03] MEDS ORDERED: SODIUM CHLORIDE 0.9% 1000 ML 1,000 ML ONE (14:59)
--- NOTE | 2022-02-03 15:50 | Consultation ---
History of Present Illness Consult date: 02/03/22 Requesting physician: MELISSA WHITE Consult reason: cardiac arrest History of present illness: The history was obtained from a review of the medical chart since the patient is currently intubated and mechanically ventilated. She was brought to the ER a long-term with complaint of hypoglycemia and altered sensorium on 01/31/22. After admission to the medical floor, she was noted to be in DKA and subsequently transferred to the ICU. On 02/01/22, she reportedly had a cardiopulmonary arrest. She was resuscitated and placed on mechanical ventilation. Details of the arrest and rhythm strips were not available. CXR showed bilateral diffuse airspace disease. Echocardiogram revealed normal LV systolic function with an ejection fraction of 55 60%. Past History Past Medical History: other (unable to obtain) Past Surgical History: Other (unable to obtain) Social history: other (unable to obtain) Family history: other (unable to obtain) Medications and Allergies Allergies Allergy/AdvReac Type Severity Reaction Status Date / Time No Known Allergies Allergy Verified 01/31/22 17:55 Home Medications Medication Instructions Recorded Confirmed Last Taken Type Ergocalciferol [Vitamin D2] 1 cap PO QWEEK 02/02/22 02/02/22 Unknown History Famotidine [Pepcid] 20 mg PO DAILY 02/02/22 02/02/22 Unknown History Insulin Glargine [Lantus VIAL] 5 unit SUB-Q BID 02/02/22 02/02/22 Unknown History Loratadine [Claritin] 10 mg PO DAILY 02/02/22 02/02/22 Unknown History Mirtazapine [Remeron] 15 mg PO HS 02/02/22 02/02/22 Unknown History Rosuvastatin Calcium [Crestor] 10 mg PO HS 02/02/22 02/02/22 Unknown History carvediloL [Coreg] 3.125 mg PO BID 02/02/22 02/02/22 Unknown History Active Meds: Active Medications Acetaminophen (Acetaminophen 325 Mg Tab) 650 mg PO Q4H PRN PRN Reason: Pain MILD(1-3)/Fever >100.5/ROSADO Last Admin: 02/02/22 23:48 Dose: 650 mg Albuterol (Albuterol 2.5 Mg/3 Ml Nebu) 2.5 mg IH Q3HRT PRN PRN Reason: Shortness Of Breath Albuterol/Ipratropium (Ipratropium/Albuterol Sulfate 3 Ml Ampul.Neb) 1 ampul IH Q4HRT PRN PRN Reason: Dyspnea Last Admin: 02/01/22 05:42 Dose: 1 ampul Lipase/Protease/Amylase (Lipase 10,500/Protease 25,000/Amylase 43,750 (Units) Dr Cap) 1 each FEEDTUBE PRN PRN PRN Reason: For Clogged Feeding Tube Atorvastatin Calcium (Atorvastatin 20 Mg Tab) 20 mg FEEDTUBE QHS JAMIL Dextrose (Dextrose 50% In Water (25gm) 50 Ml Syringe) 50 ml IV Q30MIN PRN; Protocol PRN Reason: Hypoglycemia Last Admin: 02/02/22 09:03 Dose: 50 ml Famotidine (Famotidine 20 Mg/2 Ml Inj) 20 mg IV BID JAMIL Last Admin: 02/03/22 09:05 Dose: 20 mg Fentanyl (Fentanyl 100 Mcg/2 Ml Inj) 50 mcg IV Q10MIN PRN PRN Reason: ANALGESIA Last Admin: 02/03/22 09:43 Dose: 50 mcg Hydrophilic Ointment (Lip Therapy Vaseline) 1 applic TP Q2HR PRN PRN Reason: Dry Lips Cefepime HCl (Cefepime/Ns 2 Gm/100 Ml) 2 gm in 100 mls @ 200 mls/hr IV Q12H JAMIL; Protocol Last Admin: 02/03/22 05:26 Dose: 200 mls/hr NORepinephrine/NS 8 MG-250 ML (Norepinephrine/Ns 8 Mg-250 Ml (Double Conc)) 8 mg in 250 mls @ 3.75 mls/hr IV TITRATE JAMIL; Protocol Last Titration: 02/03/22 14:15 Dose: 8 mcg/min, 15 mls/hr Propofol (Diprivan 10 Mg/Ml) 1,000 mg in 100 mls @ 1.429 mls/hr IV TITR JAMIL; Protocol Last Titration: 02/03/22 13:30 Dose: 25 mcg/kg/min, 7.144 mls/hr Fentanyl Citrate (Fentanyl Drip Premix) 2,000 mcg in 100 mls @ 2.381 mls/hr IV TITR JAMIL; Protocol Last Admin: 02/03/22 12:02 Dose: 2 mcg/kg/hr, 4.763 mls/hr Vancomycin HCl 750 mg/ Sodium (Chloride) 265 mls @ 166.667 mls/hr IV Q12H [facility] Last Admin: 02/03/22 12:20 Dose: 167 mls/hr Phenylephrine HCl 100 mg/ (Sodium Chloride) 100 mls @ 3 mls/hr IV TITR [facility]; Protocol Last Titration: 02/03/22 15:00 Dose: 60 mcg/min, 3.6 mls/hr Insulin Glargine (Insulin Glargine 100 Units/Ml) 20 units SUB-Q QAMDIAB [facility] Last Admin: 02/03/22 08:55 Dose: 20 units Insulin Human Regular (Insulin Regular, Human 100 Units/1 Ml) 0 units SUB-Q Q6H [facility]; Protocol Last Admin: 02/03/22 12:01 Dose: 3 units Multi-Ingred Cream/Lotion/Oil/Oint (Mineral Oil/Petrolatum, White Ophth Oint 3.5 Gm) 1 applic OU Q4HR PRN PRN Reason: Dry Eye(s) Ondansetron HCl (Ondansetron 4 Mg/2 Ml Inj) 4 mg IV Q8H PRN PRN Reason: Nausea And Vomiting Senna/Docusate Sodium (Sennosides/Docusate Sodium 8.6/50 Mg Tab) 1 tab FEEDTUBE QHS [facility] Last Admin: 02/02/22 22:14 Dose: 1 tab Simple Syrup (Simple Syrup 15 Ml) 15 ml FEEDTUBE PRN PRN PRN Reason: Hypoglycemia Simple Syrup (Simple Syrup 15 Ml) 30 ml FEEDTUBE PRN PRN PRN Reason: Hypoglycemia Sodium Bicarbonate (Sodium Bicarbonate 325 Mg Tab) 325 mg FEEDTUBE PRN PRN PRN Reason: For Clogged Feeding Tube Sodium Chloride (Sodium Chloride 0.9% 10 Ml Flush Syringe) 10 ml IV BID [facility] Last Admin: 02/03/22 09:06 Dose: 10 ml Sodium Chloride (Sodium Chloride 0.9% 10 Ml Flush Syringe) 10 ml IV PRN PRN PRN Reason: LINE FLUSH Review of Systems ROS unobtainable: due to endotracheal tube, due to mental status Physical Examination Vital Signs Vital Signs - 8 hr 02/03/22 02/03/22 02/03/22 08:15 08:27 08:30 Temperature Pulse Rate 130 H 134 H 134 H Pulse Rate [ From Monitor] Respiratory 13 25 H Rate Blood Pressure 82/64 106/73 82/64 O2 Sat by Pulse 97 95 Oximetry 02/03/22 02/03/22 02/03/22 08:45 09:00 09:15 Temperature Pulse Rate 131 H 132 H 136 H Pulse Rate [ From Monitor] Respiratory 18 17 22 Rate Blood Pressure 94/65 96/63 109/77 O2 Sat by Pulse 92 61 L Oximetry 02/03/22 02/03/22 02/03/22 09:30 09:43 09:45 Temperature Pulse Rate 129 H 133 H Pulse Rate [ From Monitor] Respiratory 15 21 18 Rate Blood Pressure 109/77 104/69 O2 Sat by Pulse 92 Oximetry 02/03/22 02/03/22 02/03/22 10:00 10:15 10:30 Temperature Pulse Rate 131 H 134 H 133 H Pulse Rate [ From Monitor] Respiratory 9 L 14 14 Rate Blood Pressure 91/55 90/61 88/59 O2 Sat by Pulse 94 96 95 Oximetry 02/03/22 02/03/22 02/03/22 10:45 11:00 11:15 Temperature Pulse Rate 133 H 134 H 134 H Pulse Rate [ From Monitor] Respiratory 12 12 14 Rate Blood Pressure 80/61 84/63 74/59 O2 Sat by Pulse 95 Oximetry 02/03/22 02/03/22 02/03/22 11:30 11:45 11:57 Temperature Pulse Rate 134 H 136 H 134 H Pulse Rate [ From Monitor] Respiratory 12 11 L Rate Blood Pressure 83/62 87/66 87/66 O2 Sat by Pulse 93 94 Oximetry 02/03/22 02/03/22 02/03/22 12:00 12:15 12:30 Temperature 99.8 F H Pulse Rate 134 H 132 H 132 H Pulse Rate [ 133 H From Monitor] Respiratory 13 19 15 Rate Blood Pressure 87/66 96/64 96/64 O2 Sat by Pulse 93 93 94 Oximetry 02/03/22 02/03/22 02/03/22 12:45 13:00 13:15 Temperature Pulse Rate 133 H 134 H 131 H Pulse Rate [ From Monitor] Respiratory 16 13 12 Rate Blood Pressure 97/64 97/64 90/55 O2 Sat by Pulse 92 95 94 Oximetry 02/03/22 02/03/22 02/03/22 13:30 13:45 14:00 Temperature Pulse Rate 127 H 126 H 124 H Pulse Rate [ From Monitor] Respiratory 11 L 11 L 12 Rate Blood Pressure 90/55 79/50 77/53 O2 Sat by Pulse 92 Oximetry 02/03/22 02/03/22 02/03/22 14:15 14:30 14:45 Temperature Pulse Rate 121 H 120 H 111 H Pulse Rate [ From Monitor] Respiratory 12 20 20 Rate Blood Pressure 75/49 77/52 93/62 O2 Sat by Pulse 95 Oximetry 02/03/22 15:00 Temperature Pulse Rate 113 H Pulse Rate [ From Monitor] Respiratory 19 Rate Blood Pressure 79/52 O2 Sat by Pulse Oximetry General appearance: no acute distress HEENT: Positive: Normocephaly, Mucus Membranes Moist Neck: Positive: neck supple, trachea midline Cardiac: Positive: Reg Rate and Rhythm, S1/S2 Lungs: Positive: Rhonchi Neuro: Positive: Other (Sedated, intubated and mechanically ventilated.) Abdomen: Positive: Soft, Active Bowel Sounds Skin: Negative: Rash Musculoskeletal: No Fluid Collection Extremities: Absent: edema Results 02/03/22 04:00 02/03/22 04:00 Cardiac Enzymes 02/03/22 Range/Units 04:00 AST 172 H (5-40) units/L CBC 02/03/22 Range/Units 04:00 WBC 3.7 L (4.5-11.0) K/mm3 RBC 4.41 (3.65-5.03) M/mm3 Hgb 8.0 L (10.1-14.3) gm/dl Hct 25.5 L (30.3-42.9) % Plt Count 79 L (140-440) K/mm3 Comprehensive Metabolic Panel 02/02/22 02/03/22 Range/Units Unknown 04:00 Sodium 147 H 147 H (137-145) mmol/L Potassium 5.5 H D 4.1 D (3.6-5.0) mmol/L Chloride 110.8 H 112.9 H (98-107) mmol/L Carbon Dioxide 26 23 (22-30) mmol/L BUN 9 15 (7-17) mg/dL Creatinine 0.6 0.8 (0.6-1.2) mg/dL Glucose 271 H 281 H (65-100) mg/dL Calcium 7.3 L 7.8 L (8.4-10.2) mg/dL Direct Bilirubin 0.3 H (0-0.2) mg/dL Indirect Bilirubin 0.2 mg/dL AST 172 H (5-40) units/L ALT 89 H (7-56) units/L Alkaline Phosphatase 105 (35-129) units/L Total Protein 4.7 L D (6.3-8.2) g/dL Albumin 2.0 L (3.9-5) g/dL EKG interpretations - Telemetry EKG Rhythm: Sinus Rhythm Myocardial infarction: septal TX (old age or ind Assessment and Plan Maintain vasopressor support. Obtain cardiac enzymes. Further cardiac evaluation will be performed after adequate stabilization. - Patient Problems (1) Cardiopulmonary arrest with successful resuscitation Current Visit: Yes Status: Acute (2) Acute respiratory failure Current Visit: Yes Status: Acute Qualifiers: Respiratory failure complication: hypoxia Qualified Code(s): J96.01 - Acute respiratory failure with hypoxia (3) Sepsis Current Visit: Yes Status: Acute (4) Hypotension Current Visit: Yes Status: Acute (5) DKA (diabetic ketoacidosis) Current Visit: Yes Status: Acute (6) Pancytopenia Current Visit: Yes Status: Acute
[2022-02-03] MEDS: SENNOSIDES/DOCUSATE SODIUM 8.6/50 MG TAB FEEDTUBE SCH (21:10)
[2022-02-03] MEDS ORDERED: NON-FORMULARY EACH (Rosuvastatin Calcium [Crestor] 10 MG Tablet) FEEDTUBE SCH (22:00)
[2022-02-04] MEDS: VANCOMYCIN 750 MG in SODIUM CHLORIDE 0.9% 250ML 250 ML IV SCH ×2 (00:26→15:46)
[2022-02-04] MEDS: INSULIN REGULAR, HUMAN 100 UNITS/1 ML SUB-Q SCH ×5 (00:38→23:13)
[2022-02-04] MEDS: fentaNYL DRIP Premix 2,000 MCG/100 ML BAG IV SCH ×2 (02:19→14:47)
[2022-02-04] MEDS ORDERED: SODIUM CHLORIDE 0.9% 500 ML 500 ML ONE (02:47)
[2022-02-04 03:20] LABS: Alanine Aminotransferase 76 units/L (7-56); Albumin 1.6 g/dL (3.9-5); BUN/Creatinine Ratio 21; Bilirubin,Direct 0.3 mg/dL (0-0.2); Blood Urea Nitrogen 17 mg/dL (7-17); Calcium 8.6 mg/dL (8.4-10.2); Hemolysis Index 9
[2022-02-04 03:31] LABS: Hematocrit 26.6 % (30.3-42.9); Hemoglobin 8.2 gm/dl (10.1-14.3); Mean Corpuscular HGB Conc 31 % (30-34); Red Blood Count 4.54 M/mm3 (3.65-5.03); Red Cell Distribution Width 19.6 % (13.2-15.2)
[2022-02-04 03:40] LABS: Mean Corpuscular Volume 59 fl (79-97)
[2022-02-04 03:41] LABS: Platelet Count 50 K/mm3 (140-440)
[2022-02-04] MEDS: SODIUM CHLORIDE 0.9% 500 ML 500 ML IV SCH (04:04)
[2022-02-04] MEDS: CEFEPIME/NS 2 GM/100 ML 2 GM/100 ML BAG IV SCH (05:26)
--- NOTE | 2022-02-04 05:47 | XRay Report ---
CHEST 1 VIEW 02/04/2022 4:31 AM INDICATION / CLINICAL INFORMATION: follow up respiratory failure. COMPARISON: One view of the chest from 02/03/2022. FINDINGS: SUPPORT DEVICES: Unchanged. HEART / MEDIASTINUM: Stable. LUNGS / PLEURA: Bilateral airspace opacities continue to worsen. No significant pleural effusion. No pneumothorax. ADDITIONAL FINDINGS: No significant additional findings. IMPRESSION: Continued worsening of bilateral airspace opacities without other significant interval changes. Signer Name: Chau Pham MD Signed: 02/04/2022 5:43 AM Workstation Name: [id number]
[2022-02-04 05:58] LABS: ABG Base Excess -1.5 mmol/L (-2.0-3.0); ABG HCO3 24.8 mmol/L (20.0-26.0); ABG Methemoglobin 0.7 % (0.0-1.5); ABG Oxygen Saturation 83.6 % (95.0-99.0); ABG PCO2 50.4 mm Hg; ABG PH 7.311 pH Units (7.350-7.450); ABG PO2 50.1 mm Hg (80.0-90.0)
[2022-02-04] MEDS: NORepinephrine/NS 8 MG-250 ML 8 MG/250 ML INFUS..BTL IV SCH ×2 (06:07→17:36)
[2022-02-04] MEDS: ACETAMINOPHEN 325 MG TAB PO PRN ×2 (08:45→11:58)
[2022-02-04] MEDS ORDERED: SODIUM CHLORIDE 0.9% IRR 1,000 ML BOTTLE IR ONE (09:00)
[2022-02-04] MEDS ORDERED: LIDOCAINE (1%) 10 MG/1 ML VIAL 20 ML MDV INFILTRATI ONE (09:00)
[2022-02-04] MEDS: INSULIN GLARGINE 100 UNITS/ML SUB-Q SCH (09:00)
[2022-02-04] MEDS: FAMOTIDINE 20 MG TAB FEEDTUBE SCH ×2 (09:00→20:59)
--- NOTE | 2022-02-04 09:19 | Procedure Note ---
Date of procedure: 02/04/22 Pre-op diagnosis: Pneumonia Post-op diagnosis: same Procedure: Bronchoscopy with washing of the right middle lobe. Patient emergently bronched given persistent fevers despite Broad Spec abx therapy. Lidocaine passed down the ET tube and patient placed up to 100%. Scope placed down ET tube and trachea examined normal. ET tube about 3cm above kathy. Kathy normal. Left main stem and right main stem both normal. Airway inspection shows normal airways with no secretions seen in airway. Scope wedged into right middle lobe and washing taken with adequate return of sample. Tolerated well with no complications. Anesthesia: other (sedation for vent consistenting of Propfol and Fent) Surgeon: RUPESH SHERMAN Estimated blood loss: none Specimen disposition: to lab Condition: critical Disposition: ICU
--- NOTE | 2022-02-04 09:31 | Progress Note ---
Assessment and Plan 02/04/22: Repeat cultures this am while she is febrile. Bronched this am and wash taken from right middle lobe. Worsening CXR is likely related to the volume given yesterday. Will consult heme today as her numbers continue to worsen. Gram Negative Rods found in Tracheal aspirate from 02/01. Follow up speciation of this as well as bronch results. Will send for fungal cultures as well. Needs art line. Stop bob and change to vasopressin. Overall prognosis is very very guarded to poor. 02/03/22: Needs repeat culture with next fever spike. concern now that she is still spiking temps on broad spec abx. may need to broaden even more with antifungal but will discuss tomorrow with pharmacy tomorrow. pH is better but worsening hypoxemia. CXR shows bilateral infiltrates. Will consider bronch tomorrow for washing to be sent for culture. Consider Heme consult tomorrow. Echo was stable. Guarded to poor prognosis. Sugar is better today. 02/02/22: Wean Vasopressors as tolerated for maps >65. Check echo. Stop insulin therapy. Q1hour fSbs and cover with sliding scale. Repeat ABG later today to follow pH. May need some diamox later. Patient now neutropenic and thrombocytopenic, repeated CBC and still the same. may need to consider heme consult. For now continue broad spec abx therapy. prognosis is guarded to poor. 2 amps of NaBicarb pushed Started on Insulin drip Central line placement secondary to lack of access Aggressive volume resuscitation q1 hour fsbs and q6 hour BMPs for the next 36-48 hours Supplemental O2 Not a candidate for bipap currently given mental state so if her respiratory status deteriorates would need intubation. Guarded prognosis. Spoke with daughter briefly at bedside. She did not get off her cell phone so not able to have a full conversation with her about her mother. CCT 31 minutes. Subjective Date of service: 02/04/22 Interval history: Now on a second pressor but only on 8 of levophed. She remains tachy despite fluids and now CXR is worse with diffuse alveolar filling. Most likely this is from the volume I gave on yesterday. ABG worse today to fit CXR. Objective Vital Signs - 12hr 02/03/22 02/03/22 02/03/22 21:30 21:45 22:00 Temperature Pulse Rate 97 H 95 H 96 H Respiratory 15 19 20 Rate Blood Pressure 94/60 101/62 96/64 O2 Sat by Pulse 80 L 76 L 80 L Oximetry 02/03/22 02/03/22 02/03/22 22:15 22:30 22:45 Temperature Pulse Rate 102 H 97 H 96 H Respiratory 22 20 15 Rate Blood Pressure 84/64 84/55 89/62 O2 Sat by Pulse Oximetry 02/03/22 02/03/22 02/03/22 23:00 23:15 23:30 Temperature Pulse Rate 96 H 100 H 98 H Respiratory 10 L 17 18 Rate Blood Pressure 99/63 88/57 90/60 O2 Sat by Pulse Oximetry 02/03/22 02/03/22 02/03/22 23:34 23:35 23:36 Temperature 98.6 F Pulse Rate 99 H 100 H Respiratory 13 Rate Blood Pressure 90/60 O2 Sat by Pulse 96 99 Oximetry 02/03/22 02/04/22 02/04/22 23:45 00:00 00:15 Temperature Pulse Rate 99 H 101 H 100 H Respiratory 16 18 19 Rate Blood Pressure 89/60 88/60 86/58 O2 Sat by Pulse 100 Oximetry 02/04/22 02/04/22 02/04/22 00:30 00:45 01:00 Temperature Pulse Rate 103 H 102 H 103 H Respiratory 21 13 9 L Rate Blood Pressure 88/58 92/62 87/57 O2 Sat by Pulse 100 100 100 Oximetry 02/04/22 02/04/22 02/04/22 01:15 01:30 01:45 Temperature Pulse Rate 107 H 107 H 108 H Respiratory 12 10 L 12 Rate Blood Pressure 84/55 75/56 81/58 O2 Sat by Pulse 97 97 96 Oximetry 02/04/22 02/04/22 02/04/22 02:00 02:15 02:30 Temperature Pulse Rate 110 H 107 H 110 H Respiratory 12 12 12 Rate Blood Pressure 89/62 86/60 96/70 O2 Sat by Pulse 93 91 Oximetry 02/04/22 02/04/22 02/04/22 02:45 03:00 03:15 Temperature Pulse Rate 109 H 109 H 111 H Respiratory 10 L 10 L 12 Rate Blood Pressure 84/61 86/59 85/57 O2 Sat by Pulse 91 93 93 Oximetry 02/04/22 02/04/22 02/04/22 03:30 03:45 04:00 Temperature 100 F H Pulse Rate 110 H 110 H 117 H Respiratory 11 L 13 12 Rate Blood Pressure 93/53 80/54 79/51 O2 Sat by Pulse 94 96 100 Oximetry 02/04/22 02/04/22 02/04/22 04:15 04:30 04:45 Temperature Pulse Rate 113 H 114 H 114 H Respiratory 13 12 11 L Rate Blood Pressure 93/59 81/59 90/57 O2 Sat by Pulse 100 97 97 Oximetry 02/04/22 02/04/22 02/04/22 05:00 05:15 05:30 Temperature Pulse Rate 112 H 117 H 118 H Respiratory 12 10 L 9 L Rate Blood Pressure 92/61 76/51 78/54 O2 Sat by Pulse 97 93 89 Oximetry 02/04/22 02/04/22 02/04/22 05:45 06:00 06:15 Temperature Pulse Rate 116 H 116 H 117 H Respiratory 11 L 10 L 12 Rate Blood Pressure 93/62 91/60 88/50 O2 Sat by Pulse 94 94 95 Oximetry 02/04/22 02/04/22 02/04/22 06:30 06:45 07:00 Temperature Pulse Rate 116 H 120 H 118 H Respiratory 10 L 10 L 11 L Rate Blood Pressure 95/58 76/56 85/61 O2 Sat by Pulse 94 96 94 Oximetry 02/04/22 02/04/22 02/04/22 07:15 07:30 07:45 Temperature Pulse Rate 119 H 117 H 118 H Respiratory 12 11 L 10 L Rate Blood Pressure 86/60 94/62 103/60 O2 Sat by Pulse 94 96 96 Oximetry 02/04/22 02/04/22 08:00 08:15 Temperature Pulse Rate 122 H 120 H Respiratory 11 L 12 Rate Blood Pressure 92/60 88/58 O2 Sat by Pulse 91 93 Oximetry CBC and BMP: 02/04/22 03:18 02/04/22 02:44 ABG, PT/INR, D-dimer: ABG ABG pH 7.311 pH Units (7.350-7.450) L 02/04/22 05:15 POC ABG pCO2 37.3 mmHg (32.0-48.0) 02/02/22 04:49 ABG pCO2 50.4 mm Hg 02/04/22 05:15 POC ABG pO2 79.9 mmHg (83-108) L 02/02/22 04:49 ABG pO2 50.1 mm Hg (80.0-90.0) L 02/04/22 05:15 POC ABG HCO3 30.3 02/02/22 04:49 ABG O2 Saturation 83.6 % (95.0-99.0) L 02/04/22 05:15 Abnormal lab findings: Abnormal Labs 01/31/22 01/31/22 01/31/22 20:33 20:33 20:33 WBC 12.5 H RBC 6.16 H Hgb Hct MCV 61 L MCH 18 L RDW 19.6 H Plt Count Seg Neuts % (Manual) 98.0 H Lymphocytes % (Manual) 0 L Nucleated RBC % 2.0 H Seg Neutrophils # Man 12.3 H Lymphocytes # (Manual) 0.0 L ABG pH POC ABG pO2 ABG pO2 ABG HCO3 ABG O2 Saturation ABG Base Excess ABG Hemoglobin Oxyhemoglobin Carboxyhemoglobin Sodium Potassium 5.6 H Chloride 110.1 H Carbon Dioxide 9 L* Creatinine Glucose 254 H POC Glucose Hemoglobin A1c Lactic Acid 2.50 H* Calcium 10.8 H Phosphorus Magnesium Direct Bilirubin AST ALT Total Protein Albumin Ur Specific [place] Urine Blood Urine WBC (Auto) 01/31/22 02/01/22 02/01/22 22:49 07:34 08:22 WBC RBC Hgb Hct MCV MCH RDW Plt Count Seg Neuts % (Manual) Lymphocytes % (Manual) Nucleated RBC % Seg Neutrophils # Man Lymphocytes # (Manual) ABG pH POC ABG pO2 ABG pO2 ABG HCO3 ABG O2 Saturation ABG Base Excess ABG Hemoglobin Oxyhemoglobin Carboxyhemoglobin Sodium Potassium 5.8 H Chloride 115.8 H Carbon Dioxide 3 L* Creatinine Glucose 400 H POC Glucose 368 H Hemoglobin A1c Lactic Acid Calcium Phosphorus Magnesium Direct Bilirubin AST ALT Total Protein Albumin Ur Specific [place] 1.035 H Urine Blood Small A Urine WBC (Auto) 142.0 H 02/01/22 02/01/22 02/01/22 09:42 12:01 12:54 WBC RBC Hgb Hct MCV MCH RDW Plt Count Seg Neuts % (Manual) Lymphocytes % (Manual) Nucleated RBC % Seg Neutrophils # Man Lymphocytes # (Manual) ABG pH 7.044 L* POC ABG pO2 ABG pO2 121.0 H ABG HCO3 3.7 L ABG O2 Saturation ABG Base Excess -24.8 L ABG Hemoglobin 9.3 L Oxyhemoglobin Carboxyhemoglobin Sodium Potassium Chloride Carbon Dioxide Creatinine Glucose POC Glucose 382 H Hemoglobin A1c Lactic Acid Calcium Phosphorus 1.40 L Magnesium 1.30 L Direct Bilirubin AST ALT Total Protein Albumin Ur Specific [place] Urine Blood Urine WBC (Auto) 02/01/22 02/01/22 02/01/22 12:54 12:54 13:27 WBC RBC Hgb Hct MCV MCH RDW Plt Count Seg Neuts % (Manual) Lymphocytes % (Manual) Nucleated RBC % Seg Neutrophils # Man Lymphocytes # (Manual) ABG pH POC ABG pO2 ABG pO2 ABG HCO3 ABG O2 Saturation ABG Base Excess ABG Hemoglobin Oxyhemoglobin Carboxyhemoglobin Sodium 148 H D Potassium 3.0 L D Chloride 117.3 H Carbon Dioxide 9 L* Creatinine Glucose 439 H POC Glucose 342 H Hemoglobin A1c 11.1 H Lactic Acid Calcium 7.7 L Phosphorus Magnesium Direct Bilirubin AST ALT Total Protein Albumin Ur Specific [place] Urine Blood Urine WBC (Auto) 02/01/22 02/01/22 02/01/22 14:48 15:48 16:54 WBC RBC Hgb Hct MCV MCH RDW Plt Count Seg Neuts % (Manual) Lymphocytes % (Manual) Nucleated RBC % Seg Neutrophils # Man Lymphocytes # (Manual) ABG pH POC ABG pO2 ABG pO2 ABG HCO3 ABG O2 Saturation ABG Base Excess ABG Hemoglobin Oxyhemoglobin Carboxyhemoglobin Sodium Potassium Chloride Carbon Dioxide Creatinine Glucose POC Glucose 394 H 412 H 352 H Hemoglobin A1c Lactic Acid Calcium Phosphorus Magnesium Direct Bilirubin AST ALT Total Protein Albumin Ur Specific [place] Urine Blood Urine WBC (Auto) 02/01/22 02/01/22 02/01/22 18:23 18:53 19:26 WBC RBC Hgb Hct MCV MCH RDW Plt Count Seg Neuts % (Manual) Lymphocytes % (Manual) Nucleated RBC % Seg Neutrophils # Man Lymphocytes # (Manual) ABG pH 7.331 L POC ABG pO2 ABG pO2 121.4 H ABG HCO3 ABG O2 Saturation ABG Base Excess -4.9 L ABG Hemoglobin 8.4 L Oxyhemoglobin Carboxyhemoglobin Sodium Potassium Chloride Carbon Dioxide Creatinine Glucose POC Glucose 350 H 260 H Hemoglobin A1c Lactic Acid Calcium Phosphorus Magnesium Direct Bilirubin AST ALT Total Protein Albumin Ur Specific [place] Urine Blood Urine WBC (Auto) 07/29/22 07/29/22 07/29/22 20:20 21:38 22:41 WBC RBC Hgb Hct MCV MCH RDW Plt Count Seg Neuts % (Manual) Lymphocytes % (Manual) Nucleated RBC % Seg Neutrophils # Man Lymphocytes # (Manual) ABG pH POC ABG pO2 ABG pO2 ABG HCO3 ABG O2 Saturation ABG Base Excess ABG Hemoglobin Oxyhemoglobin Carboxyhemoglobin Sodium Potassium Chloride Carbon Dioxide Creatinine Glucose POC Glucose 266 H 195 H 150 H Hemoglobin A1c Lactic Acid Calcium Phosphorus Magnesium Direct Bilirubin AST ALT Total Protein Albumin Ur Specific [place] Urine Blood Urine WBC (Auto) 02/01/22 02/02/22 02/02/22 23:39 00:25 00:25 WBC RBC Hgb Hct MCV MCH RDW Plt Count Seg Neuts % (Manual) Lymphocytes % (Manual) Nucleated RBC % Seg Neutrophils # Man Lymphocytes # (Manual) ABG pH POC ABG pO2 ABG pO2 ABG HCO3 ABG O2 Saturation ABG Base Excess ABG Hemoglobin Oxyhemoglobin Carboxyhemoglobin Sodium 156 H D Potassium 3.0 L Chloride 114.2 H Carbon Dioxide Creatinine 0.5 L Glucose 63 L POC Glucose 125 H Hemoglobin A1c Lactic Acid 7.10 H* Calcium 8.1 L Phosphorus Magnesium Direct Bilirubin AST ALT Total Protein Albumin Ur Specific [place] Urine Blood Urine WBC (Auto) 02/02/22 02/02/22 02/02/22 04:00 04:00 04:35 WBC 1.4 L* RBC Hgb 8.5 L Hct 26.8 L D MCV 57 L MCH 18 L RDW 19.0 H Plt Count 129 L Seg Neuts % (Manual) 33.0 L Lymphocytes % (Manual) 57.0 H Nucleated RBC % Seg Neutrophils # Man 0.5 L Lymphocytes # (Manual) 0.8 L ABG pH POC ABG pO2 ABG pO2 ABG HCO3 ABG O2 Saturation ABG Base Excess ABG Hemoglobin Oxyhemoglobin Carboxyhemoglobin Sodium 155 H Potassium Chloride 113.1 H Carbon Dioxide Creatinine Glucose 159 H POC Glucose Hemoglobin A1c Lactic Acid 3.10 H* Calcium 7.6 L Phosphorus Magnesium Direct Bilirubin AST ALT Total Protein Albumin Ur Specific [place] Urine Blood Urine WBC (Auto) 02/02/22 02/02/22 02/02/22 04:37 04:49 05:43 WBC RBC Hgb Hct MCV MCH RDW Plt Count Seg Neuts % (Manual) Lymphocytes % (Manual) Nucleated RBC % Seg Neutrophils # Man Lymphocytes # (Manual) ABG pH 7.528 H POC ABG pO2 79.9 L ABG pO2 ABG HCO3 ABG O2 Saturation ABG Base Excess ABG Hemoglobin 8.8 L Oxyhemoglobin Carboxyhemoglobin 0.2 L Sodium Potassium Chloride Carbon Dioxide Creatinine Glucose POC Glucose 116 H 125 H Hemoglobin A1c Lactic Acid Calcium Phosphorus Magnesium Direct Bilirubin AST ALT Total Protein Albumin Ur Specific [place] Urine Blood Urine WBC (Auto) 02/02/22 02/02/22 02/02/22 06:52 09:02 09:05 WBC RBC Hgb Hct MCV MCH RDW Plt Count Seg Neuts % (Manual) Lymphocytes % (Manual) Nucleated RBC % Seg Neutrophils # Man Lymphocytes # (Manual) ABG pH POC ABG pO2 ABG pO2 ABG HCO3 ABG O2 Saturation ABG Base Excess ABG Hemoglobin Oxyhemoglobin Carboxyhemoglobin Sodium 154 H Potassium 3.3 L Chloride 113.3 H Carbon Dioxide Creatinine Glucose 35 L* POC Glucose 110 H 35 L Hemoglobin A1c Lactic Acid Calcium 7.4 L Phosphorus 1.70 L D Magnesium 2.50 H Direct Bilirubin AST ALT Total Protein Albumin Ur Specific [place] Urine Blood Urine WBC (Auto) 02/02/22 02/02/22 02/02/22 09:05 09:30 09:41 WBC 2.6 L RBC Hgb 8.0 L Hct 25.0 L MCV 57 L MCH 18 L RDW 18.8 H Plt Count 97 L Seg Neuts % (Manual) Lymphocytes % (Manual) 12.0 L Nucleated RBC % 10.0 H Seg Neutrophils # Man 1.7 L Lymphocytes # (Manual) 0.3 L ABG pH POC ABG pO2 ABG pO2 ABG HCO3 ABG O2 Saturation ABG Base Excess ABG Hemoglobin Oxyhemoglobin Carboxyhemoglobin Sodium Potassium Chloride Carbon Dioxide Creatinine Glucose POC Glucose 119 H Hemoglobin A1c Lactic Acid 7.10 H* Calcium Phosphorus Magnesium Direct Bilirubin AST ALT Total Protein Albumin Ur Specific [place] Urine Blood Urine WBC (Auto) 02/02/22 02/02/22 02/02/22 10:17 12:32 15:39 WBC RBC Hgb Hct MCV MCH RDW Plt Count Seg Neuts % (Manual) Lymphocytes % (Manual) Nucleated RBC % Seg Neutrophils # Man Lymphocytes # (Manual) ABG pH POC ABG pO2 ABG pO2 ABG HCO3 ABG O2 Saturation ABG Base Excess ABG Hemoglobin Oxyhemoglobin Carboxyhemoglobin Sodium Potassium Chloride Carbon Dioxide Creatinine Glucose POC Glucose 120 H 166 H 263 H Hemoglobin A1c Lactic Acid Calcium Phosphorus Magnesium Direct Bilirubin AST ALT Total Protein Albumin Ur Specific [place] Urine Blood Urine WBC (Auto) 02/02/22 02/02/22 02/02/22 17:07 17:50 Unknown WBC RBC Hgb Hct MCV MCH RDW Plt Count Seg Neuts % (Manual) Lymphocytes % (Manual) Nucleated RBC % Seg Neutrophils # Man Lymphocytes # (Manual) ABG pH 7.457 H POC ABG pO2 ABG pO2 71.0 L ABG HCO3 ABG O2 Saturation 94.5 L ABG Base Excess ABG Hemoglobin 9.2 L Oxyhemoglobin 93.0 L Carboxyhemoglobin Sodium 147 H Potassium 5.5 H D Chloride 110.8 H Carbon Dioxide Creatinine Glucose 271 H POC Glucose 231 H Hemoglobin A1c Lactic Acid Calcium 7.3 L Phosphorus Magnesium Direct Bilirubin AST ALT Total Protein Albumin Ur Specific [place] Urine Blood Urine WBC (Auto) 02/03/22 02/03/22 02/03/22 00:08 04:00 04:00 WBC 3.7 L RBC Hgb 8.0 L Hct 25.5 L MCV 58 L MCH 18 L RDW 18.2 H Plt Count 79 L Seg Neuts % (Manual) 76.0 H Lymphocytes % (Manual) 2.0 L Nucleated RBC % 4.0 H Seg Neutrophils # Man Lymphocytes # (Manual) 0.1 L ABG pH POC ABG pO2 ABG pO2 ABG HCO3 ABG O2 Saturation ABG Base Excess ABG Hemoglobin Oxyhemoglobin Carboxyhemoglobin Sodium 147 H Potassium Chloride 112.9 H Carbon Dioxide Creatinine Glucose 281 H POC Glucose 231 H Hemoglobin A1c Lactic Acid Calcium 7.8 L Phosphorus Magnesium Direct Bilirubin 0.3 H AST 172 H ALT 89 H Total Protein 4.7 L D Albumin 2.0 L Ur Specific [place] Urine Blood Urine WBC (Auto) 02/03/22 02/03/22 02/03/22 04:20 05:26 11:38 WBC RBC Hgb Hct MCV MCH RDW Plt Count Seg Neuts % (Manual) Lymphocytes % (Manual) Nucleated RBC % Seg Neutrophils # Man Lymphocytes # (Manual) ABG pH POC ABG pO2 ABG pO2 75.5 L ABG HCO3 ABG O2 Saturation ABG Base Excess -2.8 L ABG Hemoglobin 8.1 L Oxyhemoglobin 94.6 L Carboxyhemoglobin Sodium Potassium Chloride Carbon Dioxide Creatinine Glucose POC Glucose 247 H 196 H Hemoglobin A1c Lactic Acid Calcium Phosphorus Magnesium Direct Bilirubin AST ALT Total Protein Albumin Ur Specific [place] Urine Blood Urine WBC (Auto) 02/03/22 02/04/22 02/04/22 16:27 02:44 03:18 WBC 1.2 L* RBC Hgb 8.2 L Hct 26.6 L MCV 59 L MCH 18 L RDW 19.6 H Plt Count 50 L Seg Neuts % (Manual) Lymphocytes % (Manual) Nucleated RBC % Seg Neutrophils # Man Lymphocytes # (Manual) ABG pH POC ABG pO2 ABG pO2 ABG HCO3 ABG O2 Saturation ABG Base Excess ABG Hemoglobin Oxyhemoglobin Carboxyhemoglobin Sodium 148 H Potassium Chloride 116.3 H Carbon Dioxide Creatinine Glucose 139 H POC Glucose 119 H Hemoglobin A1c Lactic Acid Calcium Phosphorus Magnesium Direct Bilirubin 0.3 H AST 92 H ALT 76 H Total Protein 4.7 L Albumin 1.6 L Ur Specific [place] Urine Blood Urine WBC (Auto) 02/04/22 02/04/22 05:15 05:26 WBC RBC Hgb Hct MCV MCH RDW Plt Count Seg Neuts % (Manual) Lymphocytes % (Manual) Nucleated RBC % Seg Neutrophils # Man Lymphocytes # (Manual) ABG pH 7.311 L POC ABG pO2 ABG pO2 50.1 L ABG HCO3 ABG O2 Saturation 83.6 L ABG Base Excess ABG Hemoglobin 8.6 L Oxyhemoglobin 81.9 L Carboxyhemoglobin Sodium Potassium Chloride Carbon Dioxide Creatinine Glucose POC Glucose 115 H Hemoglobin A1c Lactic Acid Calcium Phosphorus Magnesium Direct Bilirubin AST ALT Total Protein Albumin Ur Specific [place] Urine Blood Urine WBC (Auto)
[2022-02-04] MEDS: VASOPRESSIN 20 UNIT in SODIUM CHLORIDE 0.9% 100 ML IV SCH ×2 (09:35→19:45)
[2022-02-04] MEDS: PHENYLEPHRINE 100 MG in SODIUM CHLORIDE 0.9% 90 ML IV SCH (09:35)
--- NOTE | 2022-02-04 09:47 | Electrocardiograph Report ---
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 : 1960 Requested By: RADHA GONZALEZ Order Number: [id number] Reading MD: Ed Schuster Measurements Intervals [place] Rate: 135 P: 52 ME: 106 QRS: 22 QRSD: 76 T: 2 QT: 342 QTc: 513 Interpretive Statements Sinus tachycardia Multiform ventricular premature complexes Aberrant conduction of SV complex(es) Low voltage, extremity and precordial leads Prolonged QT interval Compared to ECG 02/02/2022 01:00:15 Ventricular premature complex(es) now present Aberrant conduction of supraventricular beat(s) now present Low QRS voltage now present Prolonged QT interval now present Myocardial infarct finding no longer present Electronically Signed On 02-04-2022 9:47:31 EDT by Ed Schuster
--- NOTE | 2022-02-04 11:35 | Progress Note ---
Assessment and Plan Patient is a 61-year-old female brought to the ED from a [facility] due to altered mental status. Patient found to be in DKA and have cardiopulmonary S/p cardiopulmonary arrest Acute respiratory failure-pulmonology following DKA Sepsis Hypotension Pancytopenia Echo 02/02/2022-EF 55 to 60%. Left ventricular diastolic function is normal. Right ventricular systolic function is mildly reduced. Left and right atria normal in size. No pericardial effusion Plan: EKG shows sinus tach 135 multiform ventricular premature complexes Patient is s/p cardiopulmonary arrest however previous rhythm unknown. Telemetry reviewed no malignant rhythms noted. Patient currently sinus tach Patient currently on multiple pressors. Wean pressors as tolerated Continue statin therapy Patient has normal EF on echo. Will consider ischemic eval once patient is stable Patient seen in conjunction with Dr. Schuster who agrees with this plan of care 30 minutes of critical care time spending care and coordination of patient Subjective Date of service: 02/04/22 Principal diagnosis: DKA, s/p cardiopulmonary Interval history: Patient remains intubated and sedated Sinus tach 110s Objective Vital Signs Temp Pulse Pulse Resp BP Pulse Ox 02/04/22 11:20 101.3 F H 02/04/22 10:15 118 H 11 L 90/58 100 02/04/22 10:00 123 H 13 82/49 100 02/04/22 09:45 123 H 10 L 88/62 100 02/04/22 09:35 108 H 88/58 94 02/04/22 09:30 114 H 13 99/62 100 02/04/22 09:15 119 H 12 94/62 100 02/04/22 09:10 93 02/04/22 09:00 121 H 12 94/56 93 02/04/22 08:45 122 H 10 L 88/58 94 02/04/22 08:40 120 H 88/58 100 02/04/22 08:30 119 H 10 L 98/58 93 02/04/22 08:15 120 H 12 88/58 93 02/04/22 08:00 102.2 F H 122 H 11 L 92/60 91 02/04/22 07:45 118 H 10 L 103/60 96 02/04/22 07:30 117 H 11 L 94/62 96 02/04/22 07:15 119 H 12 86/60 94 02/04/22 07:00 118 H 11 L 85/61 94 02/04/22 06:45 120 H 10 L 76/56 96 02/04/22 06:30 116 H 10 L 95/58 94 02/04/22 06:15 117 H 12 88/50 95 02/04/22 06:00 116 H 10 L 91/60 94 02/04/22 05:45 116 H 11 L 93/62 94 02/04/22 05:30 118 H 9 L 78/54 89 02/04/22 05:15 117 H 10 L 76/51 93 02/04/22 05:00 112 H 12 92/61 97 02/04/22 04:45 114 H 11 L 90/57 97 02/04/22 04:30 114 H 12 81/59 97 02/04/22 04:15 113 H 13 93/59 100 02/04/22 04:00 100 F H 117 H 12 79/51 100 02/04/22 03:45 110 H 13 80/54 96 02/04/22 03:30 110 H 11 L 93/53 94 02/04/22 03:15 111 H 12 85/57 93 02/04/22 03:00 109 H 10 L 86/59 93 02/04/22 02:45 109 H 10 L 84/61 91 02/04/22 02:30 110 H 12 96/70 91 02/04/22 02:15 107 H 12 86/60 02/04/22 02:00 110 H 12 89/62 93 02/04/22 01:45 108 H 12 81/58 96 02/04/22 01:30 107 H 10 L 75/56 97 02/04/22 01:15 107 H 12 84/55 97 02/04/22 01:00 103 H 9 L 87/57 100 02/04/22 00:45 102 H 13 92/62 100 02/04/22 00:30 103 H 21 88/58 100 02/04/22 00:15 100 H 19 86/58 02/04/22 00:00 101 H 18 88/60 100 02/03/22 23:45 99 H 16 89/60 02/03/22 23:36 99 02/03/22 23:35 100 H 13 90/60 96 02/03/22 23:34 98.6 F 99 H 02/03/22 23:30 98 H 18 90/60 02/03/22 23:15 100 H 17 88/57 02/03/22 23:00 96 H 10 L 99/63 02/03/22 22:45 96 H 15 89/62 02/03/22 22:30 97 H 20 84/55 02/03/22 22:15 102 H 22 84/64 02/03/22 22:00 96 H 20 96/64 80 L 02/03/22 21:45 95 H 19 101/62 76 L 02/03/22 21:30 97 H 15 94/60 80 L 02/03/22 21:15 94 H 21 78/49 71 L 02/03/22 21:00 92 H 24 95/63 100 02/03/22 20:45 92 H 23 86/58 98 02/03/22 20:30 94 H 22 82/57 02/03/22 20:15 92 H 16 84/60 100 02/03/22 20:00 95 H 19 82/57 100 02/03/22 19:45 98 H 21 79/52 100 02/03/22 19:39 99 02/03/22 19:38 97.9 F 100 H 02/03/22 19:30 94 H 20 84/56 100 02/03/22 19:15 95 H 18 84/55 100 02/03/22 19:00 95 H 20 89/56 02/03/22 18:45 93 H 15 102/65 100 02/03/22 18:30 92 H 20 100/61 98 02/03/22 18:15 95 H 20 95/58 02/03/22 18:00 98 H 20 82/54 02/03/22 17:45 100 H 11 L 78/50 02/03/22 17:30 99 H 12 81/49 02/03/22 17:15 95 H 12 76/48 02/03/22 17:00 93 H 12 101/56 02/03/22 16:54 90 92/50 100 02/03/22 16:45 97 H 25 H 92/50 96 02/03/22 16:30 94 H 19 85/52 02/03/22 16:15 96 H 20 98/65 02/03/22 16:00 97.9 F 97 H 99 H 18 100/61 99 02/03/22 15:45 100 H 18 98/65 100 02/03/22 15:30 96 H 20 114/72 99 02/03/22 15:15 104 H 19 99/65 100 02/03/22 15:00 113 H 19 79/52 02/03/22 14:45 111 H 20 93/62 95 02/03/22 14:30 120 H 20 77/52 02/03/22 14:15 121 H 12 75/49 02/03/22 14:00 124 H 12 77/53 02/03/22 13:45 126 H 11 L 79/50 02/03/22 13:30 127 H 11 L 90/55 92 02/03/22 13:15 131 H 12 90/55 94 02/03/22 13:00 134 H 13 97/64 95 02/03/22 12:45 133 H 16 97/64 92 02/03/22 12:30 132 H 15 96/64 94 02/03/22 12:15 132 H 19 96/64 93 02/03/22 12:00 99.8 F H 134 H 133 H 13 87/66 93 02/03/22 11:57 134 H 87/66 94 02/03/22 11:45 136 H 11 L 87/66 93 - Physical Examination General: Other (Intubated and sedated) HEENT: Positive: Normocephaly, Mucus Membranes Moist Neck: Positive: neck supple, trachea midline Cardiac: Positive: Regular Rhythm, Tachycardia Lungs: Positive: Ventilated Respirations Neuro: Positive: Other (Sedated, intubated and mechanically ventilated.) Abdomen: Positive: Soft, Active Bowel Sounds Skin: Negative: Rash Musculoskeletal: No Fluid Collection Extremities: Absent: edema - Labs and Meds Cardiac Enzymes 02/04/22 Range/Units 02:44 AST 92 H (5-40) units/L CBC 02/04/22 Range/Units 03:18 WBC 1.2 L* (4.5-11.0) K/mm3 RBC 4.54 (3.65-5.03) M/mm3 Hgb 8.2 L (10.1-14.3) gm/dl Hct 26.6 L (30.3-42.9) % Plt Count 50 L (140-440) K/mm3 Comprehensive Metabolic Panel 02/04/22 Range/Units 02:44 Sodium 148 H (137-145) mmol/L Potassium 4.5 (3.6-5.0) mmol/L Chloride 116.3 H (98-107) mmol/L Carbon Dioxide 26 (22-30) mmol/L BUN 17 (7-17) mg/dL Creatinine 0.8 (0.6-1.2) mg/dL Glucose 139 H (65-100) mg/dL Calcium 8.6 (8.4-10.2) mg/dL Direct Bilirubin 0.3 H (0-0.2) mg/dL Indirect Bilirubin 0.1 mg/dL AST 92 H (5-40) units/L ALT 76 H (7-56) units/L Alkaline Phosphatase 117 (35-129) units/L Total Protein 4.7 L (6.3-8.2) g/dL Albumin 1.6 L (3.9-5) g/dL - Imaging and Cardiology Echo: report reviewed - Telemetry EKG Rhythm: Sinus Tachycardia - EKG Sinus rhythms and dysrhythmias: sinus tachycardia Myocardial infarction: septal GA (old age or ind
--- NOTE | 2022-02-04 11:41 | Progress Note ---
<NICOLA TREVINO - Last Filed: 02/04/22 18:19> Assessment and Plan Assessment and plan: This is a 61-year-old female with known past medical history of DM, dementia, HLD, and HTN initially admitted for Hypoglycemia then went into DKA and was transferred to the ICU where she PEA arrested on 02/01. Patient is now with septic shock and on ventilatory support. Hospital Course to Date: 02/01: patient was transferred to ICU as lab work was consistent with DKA and started on insulin drip. Central line placed for IV access. Patient was given bicarb push and started on a bicarb drip. She was also started on Rocephin due to UTI however antibiotics are broadened to cefepime and vancomycin. 02/02: s/p cardiac arrest on 02/01. Bicarbonate drip discontinued. Pancytopenia noted, anion gap closed and transitioned to SSI and long-acting insulin. Patient was having hypoglycemia this morning which has been corrected now. Started on tube feeding. Potassium and phosphorus will be repleted. Hype rnatremia noted and FWF started with tube feedings. COVID-19 PCR pending. Venous Doppler ultrasound pending. Neurology and cardiology consulted. Echocardiogram pending. Patient currently on Levophed and sedated with propofol. Fentanyl added. Given 1 LR bolus this morning for hypotension. 02/03: LR bolus x2, remains on levophed, tachycardia and EKG completed which shows tachycardia. Increase in FiO2, Will culture with next temp spike. Will give 1 gm Calcium Gluconate. 02/04: S/p Bronch this am by [facility] at the bedside. Patient still spiking high temp despite broad spectrum IV Abx. Remains on high pressors with worsen neutropenia and thrombocytopenia. Will panculture this am, antifungal culture was also ordered. Continue current empiric IV Abx for now, awaiting sensitivity. Will also consult ID for further eval. Possible Hematology consult for pancytopenia per CCM. Possible family meeting with [facility] this week, case management to arrange. Assessment and Plan #Septic Shock #S/p PEA Arrest with ROSC #H/o HTN, HLD - Coded in the ICU on 02/01, PEA arrest - ROSC achieved post 1amp of bcarb and EPI - Now with tachycardia, persistent fevers, and on multiple pressors- Levo and Mauro - Echo reviewed, EF 55-60%, see report for detail - Cardiology consulted, appreciated recommendations - Continue blood pressure monitor per protocol - Titrate pressors to Maintain MAP above 65 #Acute Hypoxic Respiratory Failure #Bilateral Pneumonia - Intubated during code on 02/01 - This am CXR with worsening bilateral airspace opacities - 02/04 s/p Bronchoscopy at the bedside by [facility]- BAL sent to lab - Vent setting: PRVC-75%,8,12,35 - AM ABG noted, vent setting adjusted per CCM - CCM consulted, appreciate recommendations - Continue IV Abx and Nebs per CCM - VAP bundle addressed - Aspiration precaution HOB above 30 - Daily ABG and CXR - Continue SPO2 monitoring for SPO2 goal above 92% #Septic Shock #Bilateral Pneumonia #Urinary Tract Infection(UTI) - With high fevers, neutropenia, thrombocytopenia, tachycardia, and hypotensive on multiple pressors - UA consistent with pyuria, Blood cultures with NGTD, Sputum culture with GNR - On Broad spectrum IV abx- Cefepine and Vanco - Hoang Temp again today, TMAX- 102. BLE doppler negative for DVT - Will panculture, antifugal culture also ordered - ID consulted for further eval - f/u on culture - Monitor CBC and temperature curve #Pancytopenia - Significant drop of WBCs and Plt count from admit - Probably due to septic shock, currently on Broad spectrum IV Abx - No s/s of active bleeding, H&H stable - Continue to trend CBC - Hold AC for now - Possible Hematology consult for pancytopenia per [facility] #Acute Metabolic Encephalopathy #h/o Dementia - Intubated and Sedated on Fent. and propofol gtts - Titrate sedations for RASS goal of 0 to -2 - Daily SAT and SBT per [facility] - Avoid benzodiazepine to reduce the possibility of delirium - PRN Analgesia for CPOT greater than 3 - Maintenance of sleep-wake cycle - Neurology consulted, appreciate recommendations #Hypernatremia - Continue FWF Q4hrs - Strict intake and output - Avoid nephrotoxic medications - Monitor and replace electrolytes as needed #Type 2 Diabetes mellitus #S/p DKA - initially presented with hypoglycemia then went into DKA - s/p DKA protocol - Hemoglobin A1c 11.1 - Continue BG and SSI Q6hrs - Lantus Qday - Avoid Hypoglycemia #GI/DVT Prophylaxis - PPI- Pepcid - SCDs to bilateral lower extremities while in bed The high probability of a clinically significant, sudden or life threatening deterioration of the [Multiple] system(s) required my full and direct attention, intervention and personal management. The aggregate critical care time was [60] minutes. This time is in addition to time spent performing reported procedures but includes the following: [x] Data Review and interpretation [x] Patient assessment and monitoring of vital signs [x] Documentation [x] Medication orders and management Disposition Plan: ICU Total Time Spent with Patient (Minutes): 60 History Interval history: Patient seen and examined at the bedside. Intubated and Sedated. S/p Bronchoscopy by CCM at the bedside this am. Remains on 2 pressors, spiking high temps this am. Hospitalist Physical - Constitutional Vitals: Temp Pulse Resp BP Pulse Ox 101.3 F H 118 H 11 L 90/58 98 02/04/22 11:20 02/04/22 11:34 02/04/22 10:15 02/04/22 11:34 02/04/22 11:34 General appearance: Present: no acute distress, other (Intubated and Sedated) - EENT Eyes: Present: PERRL (Sluggish) - Respiratory Respiratory effort: normal Respiratory: bilateral: rhonchi - Cardiovascular Rhythm: regular Heart Sounds: Present: S1 & S2 - Extremities Extremities: no ischemia, pulses intact, pulses symmetrical Peripheral Pulses: within normal limits - Abdominal General gastrointestinal: soft, non-distended, hypoactive bowel sounds - Integumentary Integumentary: Present: warm, dry - Psychiatric Psychiatric: other (Intubated and sedated) - Neurologic Neurologic: other (Intubated and sedated. Withdrawal from painful stimuli) - Allied Health Allied health notes reviewed: nursing, case management HEART Score - HEART Score Troponin: Troponin T < 0.010 ng/mL (0.00-0.029) 02/03/22 16:15 Results - Labs CBC & Chem 7: 02/04/22 03:18 02/04/22 02:44 Labs: Laboratory Last Values WBC 1.2 K/mm3 (4.5-11.0) L* 02/04/22 03:18 RBC 4.54 M/mm3 (3.65-5.03) 02/04/22 03:18 Hgb 8.2 gm/dl (10.1-14.3) L 02/04/22 03:18 Hct 26.6 % (30.3-42.9) L 02/04/22 03:18 MCV 59 fl (79-97) L 02/04/22 03:18 MCH 18 pg (28-32) L 02/04/22 03:18 MCHC 31 % (30-34) 02/04/22 03:18 RDW 19.6 % (13.2-15.2) H 02/04/22 03:18 Plt Count 50 K/mm3 (140-440) L 02/04/22 03:18 Lymph % (Auto) Natural Resource Technician 02/02/22 04:00 Add Manual Diff Complete 02/03/22 04:00 Total Counted 50 02/03/22 04:00 Seg Neutrophils % Natural Resource Technician 02/02/22 04:00 Seg Neuts % (Manual) 76.0 % (40.0-70.0) H 02/03/22 04:00 Band Neutrophils % 18.0 % 02/03/22 04:00 Lymphocytes % (Manual) 2.0 % (13.4-35.0) L 02/03/22 04:00 Reactive Lymphs % (Man) 0 % 02/03/22 04:00 Monocytes % (Manual) 4.0 % (0.0-7.3) 02/03/22 04:00 Eosinophils % (Manual) 0 % (0.0-4.3) 02/03/22 04:00 Basophils % (Manual) 0 % (0.0-1.8) 02/03/22 04:00 Metamyelocytes % 0 % 02/03/22 04:00 Myelocytes % 0 % 02/03/22 04:00 Promyelocytes % 0 % 02/03/22 04:00 Blast Cells % 0 % 02/03/22 04:00 Nucleated RBC % 4.0 % (0.0-0.9) H 02/03/22 04:00 Seg Neutrophils # Man 2.8 K/mm3 (1.8-7.7) 02/03/22 04:00 Band Neutrophils # 0.7 K/mm3 02/03/22 04:00 Lymphocytes # (Manual) 0.1 K/mm3 (1.2-5.4) L 02/03/22 04:00 Abs React Lymphs (Man) 0.0 K/mm3 02/03/22 04:00 Monocytes # (Manual) 0.1 K/mm3 (0.0-0.8) 02/03/22 04:00 Eosinophils # (Manual) 0.0 K/mm3 (0.0-0.4) 02/03/22 04:00 Basophils # (Manual) 0.0 K/mm3 (0.0-0.1) 02/03/22 04:00 Metamyelocytes # 0.0 K/mm3 02/03/22 04:00 Myelocytes # 0.0 K/mm3 02/03/22 04:00 Promyelocytes # 0.0 K/mm3 02/03/22 04:00 Blast Cells # 0.0 K/mm3 02/03/22 04:00 WBC Morphology Not Reportable 02/03/22 04:00 Hypersegmented Neuts Not Reportable 02/03/22 04:00 Hyposegmented Neuts Not Reportable 02/03/22 04:00 Hypogranular Neuts Not Reportable 02/03/22 04:00 Smudge Cells Not Reportable 02/03/22 04:00 Toxic Granulation Not Reportable 02/03/22 04:00 Toxic Vacuolation Not Reportable 02/03/22 04:00 Dohle Bodies Few 02/03/22 04:00 Pelger-Huet Anomaly Not Reportable 02/03/22 04:00 Sung Rods Not Reportable 02/03/22 04:00 Platelet Estimate Consistent w auto 02/03/22 04:00 Clumped Platelets Not Reportable 02/03/22 04:00 Plt Clumps, EDTA Not Reportable 02/03/22 04:00 Large Platelets Not Reportable 02/03/22 04:00 Giant Platelets Not Reportable 02/03/22 04:00 Platelet Satelliting Not Reportable 02/03/22 04:00 Plt Morphology Comment Not Reportable 02/03/22 04:00 RBC Morphology Not Reportable 02/03/22 04:00 Dimorphic RBCs Not Reportable 02/03/22 04:00 Polychromasia Not Reportable 02/03/22 04:00 Hypochromasia 3+ 02/03/22 04:00 Poikilocytosis 2+ 02/03/22 04:00 Anisocytosis 1+ 02/03/22 04:00 Microcytosis 2+ 02/03/22 04:00 Macrocytosis Not Reportable 02/03/22 04:00 Spherocytes Not Reportable 02/03/22 04:00 Pappenheimer Bodies Not Reportable 02/03/22 04:00 Sickle Cells Not Reportable 02/03/22 04:00 Target Cells 1+ 02/03/22 04:00 Tear Drop Cells Few 02/03/22 04:00 Ovalocytes Few 02/03/22 04:00 Helmet Cells Not Reportable 02/03/22 04:00 Starr-Pray Bodies Not Reportable 02/03/22 04:00 Wisner Rings Not Reportable 02/03/22 04:00 Lesly Cells 1+ 02/03/22 04:00 Bite Cells Not Reportable 02/03/22 04:00 Crenated Cell Not Reportable 02/03/22 04:00 Elliptocytes Few 02/03/22 04:00 Acanthocytes (Spur) Not Reportable 02/03/22 04:00 Rouleaux Not Reportable 02/03/22 04:00 Hemoglobin C Crystals Not Reportable 02/03/22 04:00 Schistocytes Rare 02/03/22 04:00 Malaria parasites Not Reportable 02/03/22 04:00 Sven Bodies Not Reportable 02/03/22 04:00 Hem Pathologist Commnt No 02/03/22 04:00 ABG pH 7.311 pH Units (7.350-7.450) L 02/04/22 05:15 POC ABG pCO2 37.3 mmHg (32.0-48.0) 02/02/22 04:49 ABG pCO2 50.4 mm Hg 02/04/22 05:15 POC ABG pO2 79.9 mmHg (83-108) L 02/02/22 04:49 ABG pO2 50.1 mm Hg (80.0-90.0) L 02/04/22 05:15 POC ABG HCO3 30.3 02/02/22 04:49 ABG HCO3 24.8 mmol/L (20.0-26.0) 02/04/22 05:15 ABG O2 Saturation 83.6 % (95.0-99.0) L 02/04/22 05:15 ABG O2 Content 9.9 (0.0-44) 02/04/22 05:15 POC ABG Base Excess 7.1 02/02/22 04:49 ABG Base Excess -1.5 mmol/L (-2.0-3.0) 02/04/22 05:15 ABG Hemoglobin 8.6 gm/dl (12.0-16.0) L 02/04/22 05:15 ABG Oxyhemoglobin 96.0 (94-98) 02/02/22 04:49 ABG Carboxyhemoglobin 1.3 % (0.0-5.0) 02/04/22 05:15 ABG Methemoglobin 0.7 % (0.0-1.5) 02/04/22 05:15 ABG Sodium Not Reportable 02/02/22 04:49 ABG Potassium Not Reportable 02/02/22 04:49 ABG Chloride Not Reportable 02/02/22 04:49 ABG Glucose Not Reportable 02/02/22 04:49 Oxyhemoglobin 81.9 % (95.0-99.0) L 02/04/22 05:15 Carboxyhemoglobin 0.2 (0.5-1.5) L 02/02/22 04:49 FiO2 75 % 02/04/22 05:15 FiO2 % 60.0 02/02/22 04:49 Sodium 148 mmol/L (137-145) H 02/04/22 02:44 Potassium 4.5 mmol/L (3.6-5.0) 02/04/22 02:44 Chloride 116.3 mmol/L (98-107) H 02/04/22 02:44 Carbon Dioxide 26 mmol/L (22-30) 02/04/22 02:44 Anion Gap 10 mmol/L 02/04/22 02:44 BUN 17 mg/dL (7-17) 02/04/22 02:44 Creatinine 0.8 mg/dL (0.6-1.2) 02/04/22 02:44 Estimated GFR > 60 ml/min 02/04/22 02:44 BUN/Creatinine Ratio 21 % 02/04/22 02:44 Glucose 139 mg/dL (65-100) H 02/04/22 02:44 POC Glucose 166 mg/dL (70-105) H 02/04/22 11:17 Hemoglobin A1c 11.1 % (4-6) H 02/01/22 12:54 Lactic Acid 2.00 mmol/L (0.7-2.0) 02/02/22 Unknown Calcium 8.6 mg/dL (8.4-10.2) 02/04/22 02:44 Phosphorus 3.40 mg/dL (2.5-4.5) 02/04/22 02:44 Magnesium 2.20 mg/dL (1.7-2.3) 02/04/22 02:44 Total Bilirubin 0.40 mg/dL (0.1-1.2) 02/04/22 02:44 Direct Bilirubin 0.3 mg/dL (0-0.2) H 02/04/22 02:44 Indirect Bilirubin 0.1 mg/dL 02/04/22 02:44 AST 92 units/L (5-40) H 02/04/22 02:44 ALT 76 units/L (7-56) H 02/04/22 02:44 Alkaline Phosphatase 117 units/L (35-129) 02/04/22 02:44 Troponin T < 0.010 ng/mL (0.00-0.029) 02/03/22 16:15 Total Protein 4.7 g/dL (6.3-8.2) L 02/04/22 02:44 Albumin 1.6 g/dL (3.9-5) L 02/04/22 02:44 Albumin/Globulin Ratio 0.5 % 02/04/22 02:44 Arterial Blood Glucose Not Reportable 02/02/22 04:49 Urine Color Yellow (Yellow) 01/31/22 22:49 Urine Turbidity Hazy (Clear) 01/31/22 22:49 Urine pH 5.0 (5.0-7.0) 01/31/22 22:49 Ur Specific [place] 1.035 (1.003-1.030) H 01/31/22 22:49 Urine Protein 100 mg/dl mg/dL (Negative) 01/31/22 22:49 Urine Glucose (UA) Negative mg/dL (Negative) 01/31/22 22:49 Urine Ketones 300 mg/dL (Negative) 01/31/22 22:49 Urine Blood Small (Negative) A 01/31/22 22:49 Urine Nitrite Negative (Negative) 01/31/22 22:49 Ur Reducing Substances Not Reportable 01/31/22 22:49 Urine Bilirubin Negative (Negative) 01/31/22 22:49 Urine Ictotest Not Reportable 01/31/22 22:49 Urine Urobilinogen < 2.0 mg/dL (<2.0) 01/31/22 22:49 Ur Leukocyte Esterase Negative (Negative) 01/31/22 22:49 Urine WBC (Auto) 142.0 /HPF (0.0-6.0) H 01/31/22 22:49 Urine RBC (Auto) 107.0 /HPF (0.0-6.0) 01/31/22 22:49 U Epithel Cells (Auto) 1.0 /HPF (0-13.0) 01/31/22 22:49 Urine Mucus Few /HPF 01/31/22 22:49 Urine Yeast (Budding) 3+ /HPF 01/31/22 22:49 Coronavirus (PCR) Negative (Negative) 02/02/22 10:44 SARS-CoV-2 (PCR) Negative (Negative) 02/01/22 08:50 Microbiology: Microbiology 01/31/22 20:33 Peripheral/Venous Blood Culture - Preliminary NO GROWTH AFTER 72 HOURS 01/31/22 20:33 Peripheral/Venous Blood Culture - Preliminary NO GROWTH AFTER 72 HOURS 02/01/22 17:31 Tracheal Aspirate Sputum Culture - Preliminary Gram Negative Zak Gastelum/IV: Voiding Method External Female Catheter Active Medications - Current Medications Current Medications: Generic Name Dose Route Start Last Admin Trade Name Freq PRN Reason Stop Dose Admin Acetaminophen 650 mg 02/01/22 00:57 02/04/22 08:45 Acetaminophen 325 Mg Tab PO 650 mg Q4H PRN Administration Pain MILD(1-3)/Fever >100.5/ROSADO Albuterol 2.5 mg 02/01/22 00:57 Albuterol 2.5 Mg/3 Ml Nebu IH Q3HRT PRN Shortness Of Breath Lipase/Protease/Amylase 1 each 02/02/22 08:08 Lipase 10,500/Protease 25,000/Amylase 43,750 (Units) Dr Avelar FEEDTUBE PRN PRN For Clogged Feeding Tube Atorvastatin Calcium 20 mg 02/03/22 22:00 02/03/22 21:10 Atorvastatin 20 Mg Tab FEEDTUBE 20 mg QHS JAMIL Administration Dextrose 50 ml 02/02/22 08:00 02/02/22 09:03 Dextrose 50% In Water (25gm) 50 Ml Syringe IV 50 ml Q30MIN PRN Administration Hypoglycemia Protocol Famotidine 20 mg 02/04/22 10:00 02/04/22 09:00 Famotidine 20 Mg Tab FEEDTUBE 20 mg BID JAMIL Administration Fentanyl 50 mcg 02/02/22 09:45 02/03/22 09:43 Fentanyl 100 Mcg/2 Ml Inj IV 50 mcg Q10MIN PRN Administration ANALGESIA Hydrophilic Ointment 1 applic 02/01/22 18:52 Lip Therapy Vaseline TP Q2HR PRN Dry Lips Cefepime HCl 2 gm in 100 mls @ 200 mls/hr 02/01/22 17:00 02/04/22 05:26 Cefepime/Ns 2 Gm/100 Ml IV 200 mls/hr Q12H JAMIL Administration Protocol NORepinephrine/NS 8 MG-250 ML 8 mg in 250 mls @ 3.75 mls/hr 02/01/22 20:00 02/04/22 06:46 Norepinephrine/Ns 8 Mg-250 Ml (Double Conc) IV 8 mcg/min TITRATE JAMIL 15 mls/hr Titration Protocol 2 MCG/MIN Propofol 1,000 mg in 100 mls @ 1.429 mls/hr 02/01/22 19:17 02/03/22 22:08 Diprivan 10 Mg/Ml IV 20 mcg/kg/min TITR JAMIL 5.715 mls/hr Administration Protocol 5 MCG/KG/MIN Fentanyl Citrate 2,000 mcg in 100 mls @ 2.381 mls/hr 02/02/22 10:00 02/04/22 02:19 Fentanyl Drip Premix IV 3 mcg/kg/hr TITR JAMIL 7.144 mls/hr Administration Protocol 1 MCG/KG/HR Vancomycin HCl 750 mg/ Sodium 265 mls @ 166.667 mls/hr 02/02/22 13:00 02/04/22 00:26 Chloride IV 167 mls/hr Q12H JAMIL Administration Phenylephrine HCl 100 mg/ 100 mls @ 3 mls/hr 02/03/22 14:15 02/04/22 10:41 Sodium Chloride IV 50 mcg/min TITR JAMIL 3 mls/hr Titration Protocol 50 MCG/MIN Sodium Chloride 500 mls @ 5 mls/hr 02/04/22 03:00 02/04/22 04:04 Nacl 0.9% 500 Ml IV 5 mls/hr DIRECT JAMIL Administration Vasopressin 20 unit/ Sodium 101 mls @ 9.09 mls/hr 02/04/22 09:15 02/04/22 09: 35 Chloride IV 0.03 units/min TITR JAMIL 9.09 mls/hr Administration Protocol 0.03 UNITS/MIN Insulin Glargine 20 units 02/03/22 08:00 02/04/22 09:00 Insulin Glargine 100 Units/Ml SUB-Q 20 units QAMDIAB JAMIL Administration Insulin Human Regular 0 units 02/02/22 18:00 02/04/22 05:28 Insulin Regular, Human 100 Units/1 Ml SUB-Q Not Given Q6H [facility] Protocol Multi-Ingred Cream/Lotion/Oil/Oint 1 applic 02/01/22 18:52 Mineral Oil/Petrolatum, White Ophth Oint 3.5 Gm OU Q4HR PRN Dry Eye(s) Ondansetron HCl 4 mg 02/01/22 00:57 Ondansetron 4 Mg/2 Ml Inj IV Q8H PRN Nausea And Vomiting Senna/Docusate Sodium 1 tab 02/02/22 22:00 02/03/22 21:10 Sennosides/Docusate Sodium 8.6/50 Mg Tab FEEDTUBE 1 tab QHS JAMIL Administration Simple Syrup 15 ml 02/02/22 08:08 Simple Syrup 15 Ml FEEDTUBE PRN PRN Hypoglycemia Simple Syrup 30 ml 02/02/22 08:08 Simple Syrup 15 Ml FEEDTUBE PRN PRN Hypoglycemia Sodium Bicarbonate 325 mg 02/02/22 08:08 Sodium Bicarbonate 325 Mg Tab FEEDTUBE PRN PRN For Clogged Feeding Tube Sodium Chloride 10 ml 02/01/22 10:00 02/04/22 09:01 Sodium Chloride 0.9% 10 Ml Flush Syringe IV 10 ml BID JAMIL Administration Sodium Chloride 10 ml 02/01/22 00:57 Sodium Chloride 0.9% 10 Ml Flush Syringe IV PRN PRN LINE FLUSH Nutrition/Malnutrition Assess - Dietary Evaluation Nutrition/Malnutrition Findings: Nutrition Notes Start: 02/01/22 17:50 Freq: Status: Active Protocol: Document 02/04/22 10:28 JACQUELINE (Rec: 02/04/22 10:40 JACQUELINE [id number]) Nutrition Notes Need for Assessment generated from: MD Order Current Diagnosis Diabetes,Respiratory Failure Other Pertinent Diagnosis DKA, UTI, AMS Current Diet TF - Glucerna 1.2 at 35ml/hr ( per MD order) Labs/Tests WBC 1.2 Na 148 A1C 11.1 Pertinent Medications Levophed gtt, Phenylephrine gtt, Vasopressin gtt, Propofol at 5.715ml/hr (provides 151 kcal) Height 5 ft 4 in Weight 46.7 kg [place] Body Weight (kg) 54.54 BMI 17.6 Weight Status Underweight Subjective/Other Information RD consulted for TF. Pt remains on vent support. Difficulty In Swallowing Skin Integrity/Comment No skin breakdown reported Minimum of two criteria No Fluid Accumulation Mild (non-severe) #1 Nutrition Diagnosis Inadequate oral intake Etiology [facility] ventilation As Evidenced by Signs and Symptoms pt NPO Is patient on ventilator? Yes Is Patient Ambulatory and/or Out of Bed No [facility] 1237.500 Kcal/Kg value to use for calculation 35 Approximate Energy Requirements Using 1635 kcal/Kg Calculation Used for Recommendations Kcal/kg Additional Notes Pro needs 1.2-2g/k-93g/ day Fluid needs 1ml/kcal Nutrition Intervention Nutrition Support: Glucerna 1.2 at 55ml/hr <MELISSA WHITE - Last Filed: 02/05/22 07:21> Assessment and Plan Assessment and plan: I saw and evaluated the patient. I agree with the findings and the plan of care as documented in the Nurse Practitioner's~note, with the following corrections and additions. Hospitalist Physical - Constitutional Vitals: Temp Pulse Resp BP Pulse Ox 100 F H 133 H 22 111/69 92 02/05/22 05:18 02/05/22 06:16 02/05/22 06:16 02/05/22 06:16 02/05/22 06:16 HEART Score - HEART Score Troponin: Troponin T < 0.010 ng/mL (0.00-0.029) 02/03/22 16:15 Results - Labs CBC & Chem 7: 02/05/22 04:40 02/05/22 04:40 Labs: Laboratory Last Values WBC 3.1 K/mm3 (4.5-11.0) L 02/05/22 04:40 RBC 4.71 M/mm3 (3.65-5.03) 02/05/22 04:40 Hgb 9.6 gm/dl (10.1-14.3) L 02/05/22 04:40 Hct 30.1 % (30.3-42.9) L D 02/05/22 04:40 MCV 64 fl (79-97) L 02/05/22 04:40 MCH 20 pg (28-32) L 02/05/22 04:40 MCHC 32 % (30-34) 02/05/22 04:40 RDW 26.9 % (13.2-15.2) H 02/05/22 04:40 Plt Count 50 K/mm3 (140-440) L 02/05/22 04:40 Lymph % (Auto) Natural Resource Technician 02/02/22 04:00 Add Manual Diff Complete 02/03/22 04:00 Total Counted 50 02/03/22 04:00 Seg Neutrophils % Natural Resource Technician 02/02/22 04:00 Seg Neuts % (Manual) 76.0 % (40.0-70.0) H 02/03/22 04:00 Band Neutrophils % 18.0 % 02/03/22 04:00 Lymphocytes % (Manual) 2.0 % (13.4-35.0) L 02/03/22 04:00 Reactive Lymphs % (Man) 0 % 02/03/22 04:00 Monocytes % (Manual) 4.0 % (0.0-7.3) 02/03/22 04:00 Eosinophils % (Manual) 0 % (0.0-4.3) 02/03/22 04:00 Basophils % (Manual) 0 % (0.0-1.8) 02/03/22 04:00 Metamyelocytes % 0 % 02/03/22 04:00 Myelocytes % 0 % 02/03/22 04:00 Promyelocytes % 0 % 02/03/22 04:00 Blast Cells % 0 % 02/03/22 04:00 Nucleated RBC % 4.0 % (0.0-0.9) H 02/03/22 04:00 Seg Neutrophils # Man 2.8 K/mm3 (1.8-7.7) 02/03/22 04:00 Band Neutrophils # 0.7 K/mm3 02/03/22 04:00 Lymphocytes # (Manual) 0.1 K/mm3 (1.2-5.4) L 02/03/22 04:00 Abs React Lymphs (Man) 0.0 K/mm3 02/03/22 04:00 Monocytes # (Manual) 0.1 K/mm3 (0.0-0.8) 02/03/22 04:00 Eosinophils # (Manual) 0.0 K/mm3 (0.0-0.4) 02/03/22 04:00 Basophils # (Manual) 0.0 K/mm3 (0.0-0.1) 02/03/22 04:00 Metamyelocytes # 0.0 K/mm3 02/03/22 04:00 Myelocytes # 0.0 K/mm3 02/03/22 04:00 Promyelocytes # 0.0 K/mm3 02/03/22 04:00 Blast Cells # 0.0 K/mm3 02/03/22 04:00 WBC Morphology Not Reportable 02/03/22 04:00 Hypersegmented Neuts Not Reportable 02/03/22 04:00 Hyposegmented Neuts Not Reportable 02/03/22 04:00 Hypogranular Neuts Not Reportable 02/03/22 04:00 Smudge Cells Not Reportable 02/03/22 04:00 Toxic Granulation Not Reportable 02/03/22 04:00 Toxic Vacuolation Not Reportable 02/03/22 04:00 Dohle Bodies Few 02/03/22 04:00 Pelger-Huet Anomaly Not Reportable 02/03/22 04:00 Sung Rods Not Reportable 02/03/22 04:00 Platelet Estimate Consistent w auto 02/03/22 04:00 Clumped Platelets Not Reportable 02/03/22 04:00 Plt Clumps, EDTA Not Reportable 02/03/22 04:00 Large Platelets Not Reportable 02/03/22 04:00 Giant Platelets Not Reportable 02/03/22 04:00 Platelet Satelliting Not Reportable 02/03/22 04:00 Plt Morphology Comment Not Reportable 02/03/22 04:00 RBC Morphology Not Reportable 02/03/22 04:00 Dimorphic RBCs Not Reportable 02/03/22 04:00 Polychromasia Not Reportable 02/03/22 04:00 Hypochromasia 3+ 02/03/22 04:00 Poikilocytosis 2+ 02/03/22 04:00 Anisocytosis 1+ 02/03/22 04:00 Microcytosis 2+ 02/03/22 04:00 Macrocytosis Not Reportable 02/03/22 04:00 Spherocytes Not Reportable 02/03/22 04:00 Pappenheimer Bodies Not Reportable 02/03/22 04:00 Sickle Cells Not Reportable 02/03/22 04:00 Target Cells 1+ 02/03/22 04:00 Tear Drop Cells Few 02/03/22 04:00 Ovalocytes Few 02/03/22 04:00 Helmet Cells Not Reportable 02/03/22 04:00 Starr-Pray Bodies Not Reportable 02/03/22 04:00 Wisner Rings Not Reportable 02/03/22 04:00 Lesly Cells 1+ 02/03/22 04:00 Bite Cells Not Reportable 02/03/22 04:00 Crenated Cell Not Reportable 02/03/22 04:00 Elliptocytes Few 02/03/22 04:00 Acanthocytes (Spur) Not Reportable 02/03/22 04:00 Rouleaux Not Reportable 02/03/22 04:00 Hemoglobin C Crystals Not Reportable 02/03/22 04:00 Schistocytes Rare 02/03/22 04:00 Malaria parasites Not Reportable 02/03/22 04:00 Sven Bodies Not Reportable 02/03/22 04:00 Hem Pathologist Commnt No 02/03/22 04:00 ABG pH 7.292 pH Units (7.350-7.450) L 02/04/22 20:15 POC ABG pCO2 37.3 mmHg (32.0-48.0) 02/02/22 04:49 ABG pCO2 51.3 mm Hg 02/04/22 20:15 POC ABG pO2 79.9 mmHg (83-108) L 02/02/22 04:49 ABG pO2 40.3 mm Hg (80.0-90.0) L 02/04/22 20:15 POC ABG HCO3 30.3 02/02/22 04:49 ABG HCO3 24.2 mmol/L (20.0-26.0) 02/04/22 20:15 ABG O2 Saturation 72.1 % (95.0-99.0) L 02/04/22 20:15 ABG O2 Content 6.9 (0.0-44) 02/04/22 20:15 POC ABG Base Excess 7.1 02/02/22 04:49 ABG Base Excess -2.2 mmol/L (-2.0-3.0) L 02/04/22 20:15 ABG Hemoglobin 7.0 gm/dl (12.0-16.0) L 02/04/22 20:15 ABG Oxyhemoglobin 96.0 (94-98) 02/02/22 04:49 ABG Carboxyhemoglobin 1.6 % (0.0-5.0) 02/04/22 20:15 ABG Methemoglobin 0.6 % (0.0-1.5) 02/04/22 20:15 ABG Sodium Not Reportable 02/02/22 04:49 ABG Potassium Not Reportable 02/02/22 04:49 ABG Chloride Not Reportable 02/02/22 04:49 ABG Glucose Not Reportable 02/02/22 04:49 Oxyhemoglobin 70.5 % (95.0-99.0) L 02/04/22 20:15 Carboxyhemoglobin 0.2 (0.5-1.5) L 02/02/22 04:49 FiO2 60 % 02/04/22 20:15 FiO2 % 60.0 02/02/22 04:49 Sodium 148 mmol/L (137-145) H 02/05/22 04:40 Potassium 3.9 mmol/L (3.6-5.0) 02/05/22 04:40 Chloride 113.2 mmol/L (98-107) H 02/05/22 04:40 Carbon Dioxide 25 mmol/L (22-30) 02/05/22 04:40 Anion Gap 14 mmol/L 02/05/22 04:40 BUN 21 mg/dL (7-17) H 02/05/22 04:40 Creatinine 0.8 mg/dL (0.6-1.2) 02/05/22 04:40 Estimated GFR > 60 ml/min 02/05/22 04:40 BUN/Creatinine Ratio 26 % 02/05/22 04:40 Glucose 155 mg/dL (65-100) H 02/05/22 04:40 POC Glucose 156 mg/dL (70-105) H 02/05/22 04:43 Hemoglobin A1c 11.1 % (4-6) H 02/01/22 12:54 Lactic Acid 3.00 mmol/L (0.7-2.0) H* 02/04/22 20:22 Calcium 8.6 mg/dL (8.4-10.2) 02/05/22 04:40 Phosphorus 3.40 mg/dL (2.5-4.5) 02/04/22 02:44 Magnesium 2.20 mg/dL (1.7-2.3) 02/04/22 02:44 Total Bilirubin 0.50 mg/dL (0.1-1.2) 02/05/22 04:40 Direct Bilirubin < 0.2 mg/dL (0-0.2) 02/04/22 14:37 Indirect Bilirubin 0.1 mg/dL 02/04/22 14:37 AST 84 units/L (5-40) H 02/05/22 04:40 ALT 67 units/L (7-56) H 02/05/22 04:40 Alkaline Phosphatase 152 units/L (35-129) H 02/05/22 04:40 Troponin T < 0.010 ng/mL (0.00-0.029) 02/03/22 16:15 Total Protein 5.0 g/dL (6.3-8.2) L 02/05/22 04:40 Albumin 1.8 g/dL (3.9-5) L 02/05/22 04:40 Albumin/Globulin Ratio 0.6 % 02/05/22 04:40 Arterial Blood Glucose Not Reportable 02/02/22 04:49 Urine Color Yellow (Yellow) 02/04/22 09:15 Urine Turbidity Cloudy (Clear) 02/04/22 09:15 Urine pH 6.0 (5.0-7.0) 02/04/22 09:15 Ur Specific [place] 1.025 (1.003-1.030) 02/04/22 09:15 Urine Protein >500 mg/dL (Negative) 02/04/22 09:15 Urine Glucose (UA) Negative mg/dL (Negative) 02/04/22 09:15 Urine Ketones Negative mg/dL (Negative) 02/04/22 09:15 Urine Blood Large (Negative) A 02/04/22 09:15 Urine Nitrite Negative (Negative) 02/04/22 09:15 Ur Reducing Substances Not Reportable 01/31/22 22:49 Urine Bilirubin Negative (Negative) 02/04/22 09:15 Urine Ictotest Not Reportable 01/31/22 22:49 Urine Urobilinogen < 2.0 mg/dL (<2.0) 02/04/22 09:15 Ur Leukocyte Esterase Negative (Negative) 02/04/22 09:15 Urine WBC (Auto) 12.0 /HPF (0.0-6.0) H 02/04/22 09:15 Urine RBC (Auto) 107.0 /HPF (0.0-6.0) 02/04/22 09:15 U Epithel Cells (Auto) 1.0 /HPF (0-13.0) 02/04/22 09:15 Urine Bacteria (Auto) 1+ /HPF (Negative) 02/04/22 09:15 Urine Mucus Few /HPF 02/04/22 09:15 Urine Yeast (Budding) 2+ /HPF 02/04/22 09:15 Coronavirus (PCR) Negative (Negative) 02/02/22 10:44 SARS-CoV-2 (PCR) Negative (Negative) 02/01/22 08:50 HIV 1&2 Antibody Rapid Non react (Non React) 02/04/22 14:37 HIV P24 Antigen Non react (Non React) 02/04/22 14:37 Blood Type A POSITIVE 02/04/22 20:22 Antibody Screen Negative 02/04/22 20:22 Crossmatch See Detail 02/04/22 20:22 Microbiology: Microbiology 01/31/22 20:33 Peripheral/Venous Blood Culture - Preliminary NO GROWTH AFTER 4 DAYS 01/31/22 20:33 Peripheral/Venous Blood Culture - Preliminary NO GROWTH AFTER 4 DAYS 02/01/22 17:31 Tracheal Aspirate Sputum Culture - Final Klebsiella Pneumoniae 02/04/22 14:37 Peripheral/Venous Blood Culture - Preliminary Culture in Progress 02/04/22 14:37 Peripheral/Venous Blood Fungal Culture - Preliminary Culture in Progress 02/04/22 14:37 Peripheral/Venous Blood Culture - Preliminary Culture in Progress 02/04/22 14:37 Peripheral/Venous Blood Fungal Culture - Preliminary Culture in Progress Gastelum/IV: Voiding Method External Female Catheter Active Medications - Current Medications Current Medications: Generic Name Dose Route Start Last Admin Trade Name Freq PRN Reason Stop Dose Admin Acetaminophen 650 mg 02/01/22 00:57 02/04/22 11:58 Acetaminophen 325 Mg Tab PO 650 mg Q4H PRN Administration Pain MILD(1-3)/Fever >100.5/ROSADO Albuterol 2.5 mg 02/01/22 00:57 Albuterol 2.5 Mg/3 Ml Nebu IH Q3HRT PRN Shortness Of Breath Lipase/Protease/Amylase 1 each 02/02/22 08:08 Lipase 10,500/Protease 25,000/Amylase 43,750 (Units) Dr Cap FEEDTUBE PRN PRN For Clogged Feeding Tube Atorvastatin Calcium 20 mg 02/03/22 22:00 02/04/22 20:59 Atorvastatin 20 Mg Tab FEEDTUBE 20 mg QHS JAMIL Administration Dextrose 50 ml 02/02/22 08:00 02/02/22 09:03 Dextrose 50% In Water (25gm) 50 Ml Syringe IV 50 ml Q30MIN PRN Administration Hypoglycemia Protocol Famotidine 20 mg 02/04/22 10:00 02/04/22 20:59 Famotidine 20 Mg Tab FEEDTUBE 20 mg BID JAMIL Administration Fentanyl 50 mcg 02/02/22 09:45 02/03/22 09:43 Fentanyl 100 Mcg/2 Ml Inj IV 50 mcg Q10MIN PRN Administration ANALGESIA Hydrophilic Ointment 1 applic 02/01/22 18:52 Lip Therapy Vaseline TP Q2HR PRN Dry Lips NORepinephrine/NS 8 MG-250 ML 8 mg in 250 mls @ 3.75 mls/hr 02/01/22 20:00 02/05/22 01:40 Norepinephrine/Ns 8 Mg-250 Ml (Double Conc) IV 0 mcg/min TITRATE JAMIL 0 mls/hr Titration Protocol 2 MCG/MIN Propofol 1,000 mg in 100 mls @ 1.429 mls/hr 02/01/22 19:17 02/04/22 15:07 Diprivan 10 Mg/Ml IV 0 mcg/kg/min TITR JAMIL 0 mls/hr Titration Protocol 5 MCG/KG/MIN Fentanyl Citrate 2,000 mcg in 100 mls @ 2.381 mls/hr 02/02/22 10:00 02/05/22 01:40 Fentanyl Drip Premix IV 2 mcg/kg/hr TITR JAMIL 4.763 mls/hr Titration Protocol 1 MCG/KG/HR Vancomycin HCl 750 mg/ Sodium 265 mls @ 166.667 mls/hr 02/02/22 13:00 02/05/22 00:18 Chloride IV 167 mls/hr Q12H JAMIL Administration Phenylephrine HCl 100 mg/ 100 mls @ 3 mls/hr 02/03/22 14:15 02/04/22 14:50 Sodium Chloride IV 0 mcg/min TITR JAMIL 0 mls/hr Titration Protocol 50 MCG/MIN Sodium Chloride 500 mls @ 5 mls/hr 02/04/22 03:00 02/04/22 04:04 Nacl 0.9% 500 Ml IV 5 mls/hr DIRECT JAMIL Administration Vasopressin 20 unit/ Sodium 101 mls @ 9.09 mls/hr 02/04/22 09:15 02/05/22 01:16 Chloride IV 0 units/min TITR JAMIL 0 mls/hr Titration Protocol 0.03 UNITS/MIN Meropenem/Sodium Chloride 1 gram in 100 mls @ 100 mls/hr 02/04/22 13:00 02/05/22 04:57 Merrem/Ns 1 Gram/100 Ml IV 100 mls/hr Q8H JAMIL Administration Protocol Insulin Glargine 20 units 02/03/22 08:00 02/04/22 09:00 Insulin Glargine 100 Units/Ml SUB-Q 20 units QAMDIAB JAMIL Administration Insulin Human Regular 0 units 02/02/22 18:00 02/05/22 04:59 Insulin Regular, Human 100 Units/1 Ml SUB-Q 3 units Q6H JAMIL Administration Protocol Multi-Ingred Cream/Lotion/Oil/Oint 1 applic 02/01/22 18:52 Mineral Oil/Petrolatum, White Ophth Oint 3.5 Gm OU Q4HR PRN Dry Eye(s) Ondansetron HCl 4 mg 02/01/22 00:57 Ondansetron 4 Mg/2 Ml Inj IV Q8H PRN Nausea And Vomiting Senna/Docusate Sodium 1 tab 02/02/22 22:00 02/04/22 20:59 Sennosides/Docusate Sodium 8.6/50 Mg Tab FEEDTUBE 1 tab QHS JAMIL Administration Simple Syrup 15 ml 02/02/22 08:08 Simple Syrup 15 Ml FEEDTUBE PRN PRN Hypoglycemia Simple Syrup 30 ml 02/02/22 08:08 Simple Syrup 15 Ml FEEDTUBE PRN PRN Hypoglycemia Sodium Bicarbonate 325 mg 02/02/22 08:08 Sodium Bicarbonate 325 Mg Tab FEEDTUBE PRN PRN For Clogged Feeding Tube Sodium Chloride 10 ml 02/01/22 10:00 02/04/22 21:00 Sodium Chloride 0.9% 10 Ml Flush Syringe IV 10 ml BID JAMIL Administration Sodium Chloride 10 ml 02/01/22 00:57 Sodium Chloride 0.9% 10 Ml Flush Syringe IV PRN PRN LINE FLUSH Nutrition/Malnutrition Assess - Dietary Evaluation Nutrition/Malnutrition Findings: Nutrition Notes Start: 02/01/22 17:50 Freq: Status: Active Protocol: Document 02/04/22 10:28 JACQUELINE (Rec: 02/04/22 10:40 [facility] [id number]) Nutrition Notes Need for Assessment generated from: MD Order Current Diagnosis Diabetes,Respiratory Failure Other Pertinent Diagnosis DKA, UTI, AMS Current Diet TF - Glucerna 1.2 at 35ml/hr ( per MD order) Labs/Tests WBC 1.2 Na 148 A1C 11.1 Pertinent Medications Levophed gtt, Phenylephrine gtt, Vasopressin gtt, Propofol at 5.715ml/hr (provides 151 kcal) Height 5 ft 4 in Weight 46.7 kg [place] Body Weight (kg) 54.54 BMI 17.6 Weight Status Underweight Subjective/Other Information RD consulted for TF. Pt remains on vent support. Difficulty In Swallowing Skin Integrity/Comment No skin breakdown reported Minimum of two criteria No Fluid Accumulation Mild (non-severe) #1 Nutrition Diagnosis Inadequate oral intake [facility] As Evidenced by Signs and Symptoms pt NPO Is patient on ventilator? Yes Is Patient Ambulatory and/or Out of Bed No REE-([facility]-confined to bed) 1237.500 Kcal/Kg value to use for calculation 35 Approximate Energy Requirements Using 1635 kcal/Kg Calculation Used for Recommendations Kcal/kg Additional Notes Pro needs 1.2-2g/k-93g/ day Fluid needs 1ml/kcal Nutrition Intervention Nutrition Support: Glucerna 1.2 at 55ml/hr with 250ml water flush q4h until hypernatremia resolved. Decrease water flush to 100ml q4h once Na lab WNL. Kcal 1,584 Protein (gm) 79 Carbohydrates (gm) 151 Fat (gm) 79 Fluid (mL) 1,063 Fiber (gm) 21 Goal #1 TF tolerance Goal #2 TF to meet 100% energy and pro needs Goal #3 Wt maintenance and/or gain Anticipated Discharge Needs: Continue EN support if necessary; CHO-controlled diet if able to advance diet Follow-Up By: 02/06/22 Additional Comments F/U: TF tolerance, vent status , pressor support, Na lab/ water flushes
--- NOTE | 2022-02-04 11:59 | Consultation ---
History of Present Illness - Reason for Consult Consult date: 02/04/22 fever, septic shock Requesting physician: NICOLA TREVINO - History of Present Illness The patient is a 61-year-old female was admitted from [facility] with hypoglycemia. Upon admission, found to have sepsis, acidosis, hyperglycemia and altered mental status. Admitted to ICU. On 02/01/2022, had CODE BLUE, ACLS protocol initiated, intubated. Started on pressors. Has been spiking intermittent fevers on broad-spectrum antibiotics: Cefepime and vancomycin. Infectious diseases was consulted for additional evaluation. She is currently on multiple pressors, chest x-ray shows diffuse bilateral airspace opacities. DVT scan negative. Review of Systems: Limited, intubated, on the vent Past History Past Medical History: other (unable to obtain) Past Surgical History: Other (unable to obtain) Social history: other (unable to obtain) Family history: other (unable to obtain) Medications and Allergies Allergies Allergy/AdvReac Type Severity Reaction Status Date / Time No Known Allergies Allergy Verified 01/31/22 17:55 Home Medications Medication Instructions Recorded Confirmed Last Taken Type Ergocalciferol [Vitamin D2] 1 cap PO QWEEK 02/02/22 02/02/22 Unknown History Famotidine [Pepcid] 20 mg PO DAILY 02/02/22 02/02/22 Unknown History Insulin Glargine [Lantus VIAL] 5 unit SUB-Q BID 02/02/22 02/02/22 Unknown History Loratadine [Claritin] 10 mg PO DAILY 02/02/22 02/02/22 Unknown History Mirtazapine [Remeron] 15 mg PO HS 02/02/22 02/02/22 Unknown History Rosuvastatin Calcium [Crestor] 10 mg PO HS 02/02/22 02/02/22 Unknown History carvediloL [Coreg] 3.125 mg PO BID 02/02/22 02/02/22 Unknown History Active Meds: Active Medications Acetaminophen (Acetaminophen 325 Mg Tab) 650 mg PO Q4H PRN PRN Reason: Pain MILD(1-3)/Fever >100.5/ROSADO Last Admin: 02/04/22 08:45 Dose: 650 mg Albuterol (Albuterol 2.5 Mg/3 Ml Nebu) 2.5 mg IH Q3HRT PRN PRN Reason: Shortness Of Breath Lipase/Protease/Amylase (Lipase 10,500/Protease 25,000/Amylase 43,750 (Units) Dr Cap) 1 each FEEDTUBE PRN PRN PRN Reason: For Clogged Feeding Tube Atorvastatin Calcium (Atorvastatin 20 Mg Tab) 20 mg FEEDTUBE QHS JAMIL Last Admin: 02/03/22 21:10 Dose: 20 mg Dextrose (Dextrose 50% In Water (25gm) 50 Ml Syringe) 50 ml IV Q30MIN PRN; Protocol PRN Reason: Hypoglycemia Last Admin: 02/02/22 09:03 Dose: 50 ml Famotidine (Famotidine 20 Mg Tab) 20 mg FEEDTUBE BID JAMIL Last Admin: 02/04/22 09:00 Dose: 20 mg Fentanyl (Fentanyl 100 Mcg/2 Ml Inj) 50 mcg IV Q10MIN PRN PRN Reason: ANALGESIA Last Admin: 02/03/22 09:43 Dose: 50 mcg Hydrophilic Ointment (Lip Therapy Vaseline) 1 applic TP Q2HR PRN PRN Reason: Dry Lips NORepinephrine/NS 8 MG-250 ML (Norepinephrine/Ns 8 Mg-250 Ml (Double Conc)) 8 mg in 250 mls @ 3.75 mls/hr IV TITRATE JAMIL; Protocol Last Titration: 02/04/22 06:46 Dose: 8 mcg/min, 15 mls/hr Propofol (Diprivan 10 Mg/Ml) 1,000 mg in 100 mls @ 1.429 mls/hr IV TITR JAMIL; Protocol Last Admin: 02/03/22 22:08 Dose: 20 mcg/kg/min, 5.715 mls/hr Fentanyl Citrate (Fentanyl Drip Premix) 2,000 mcg in 100 mls @ 2.381 mls/hr IV TITR JAMIL; Protocol Last Admin: 02/04/22 02:19 Dose: 3 mcg/kg/hr, 7.144 mls/hr Vancomycin HCl 750 mg/ Sodium (Chloride) 265 mls @ 166.667 mls/hr IV Q12H JAMIL Last Admin: 02/04/22 00:26 Dose: 167 mls/hr Phenylephrine HCl 100 mg/ (Sodium Chloride) 100 mls @ 3 mls/hr IV TITR JAMIL; Protocol Last Titration: 02/04/22 10:41 Dose: 50 mcg/min, 3 mls/hr Sodium Chloride (Nacl 0.9% 500 Ml) 500 mls @ 5 mls/hr IV DIRECT JAMIL Last Admin: 02/04/22 04:04 Dose: 5 mls/hr Vasopressin 20 unit/ Sodium (Chloride) 101 mls @ 9.09 mls/hr IV TITR JAMIL; [place] Last Admin: 02/04/22 09:35 Dose: 0.03 units/min, 9.09 mls/hr Meropenem/Sodium Chloride (Merrem/Ns 1 Gram/100 Ml) 1 gram in 100 mls @ 100 mls/hr IV Q8H [facility]; Protocol Insulin Glargine (Insulin Glargine 100 Units/Ml) 20 units SUB-Q QAMDIAB JAMIL Last Admin: 02/04/22 09:00 Dose: 20 units Insulin Human Regular (Insulin Regular, Human 100 Units/1 Ml) 0 units SUB-Q Q6H [facility]; Protocol Last Admin: 02/04/22 05:28 Dose: Not Given Multi-Ingred Cream/Lotion/Oil/Oint (Mineral Oil/Petrolatum, White Ophth Oint 3.5 Gm) 1 applic OU Q4HR PRN PRN Reason: Dry Eye(s) Ondansetron HCl (Ondansetron 4 Mg/2 Ml Inj) 4 mg IV Q8H PRN PRN Reason: Nausea And Vomiting Senna/Docusate Sodium (Sennosides/Docusate Sodium 8.6/50 Mg Tab) 1 tab FEEDTUBE QHS [facility] Last Admin: 02/03/22 21:10 Dose: 1 tab Simple Syrup (Simple Syrup 15 Ml) 15 ml FEEDTUBE PRN PRN PRN Reason: Hypoglycemia Simple Syrup (Simple Syrup 15 Ml) 30 ml FEEDTUBE PRN PRN PRN Reason: Hypoglycemia Sodium Bicarbonate (Sodium Bicarbonate 325 Mg Tab) 325 mg FEEDTUBE PRN PRN PRN Reason: For Clogged Feeding Tube Sodium Chloride (Sodium Chloride 0.9% 10 Ml Flush Syringe) 10 ml IV BID [facility] Last Admin: 02/04/22 09:01 Dose: 10 ml Sodium Chloride (Sodium Chloride 0.9% 10 Ml Flush Syringe) 10 ml IV PRN PRN PRN Reason: LINE FLUSH Physical Examination - Physical Exam Narrative exam: Physical Exam: Constitutional: sedated, intubated, on the vent Head, Ears, Nose: Normocephalic, atraumatic. External ears, nose normal Eyes: Conjunctivae/corneas clear. No icterus. No ptosis. Neck: intubated Oral: intubated Cardiovascular: S1, S2 + Respiratory: AE fair bilaterally and equal GI: Soft, bowel sounds + Musculoskeletal: No pedal edema, no cyanosis. Skin: No rash or abscess Hem/Lymphatic: No palpable cervical or supraclavicular nodes. No lymphangitis Psych: no agitation Neurological: sedated, intubated, on the vent, exam limited - Constitutional Vitals: Vital Signs Temp Pulse Resp BP Pulse Ox 101.3 F H 118 H 11 L 90/58 98 02/04/22 11:20 02/04/22 11:34 02/04/22 10:15 02/04/22 11:34 02/04/22 11:34 Temperature -Last 24 Hours Temperature 101.3 F Temperature 102.2 F Temperature 100 F Temperature 98.6 F Temperature 97.9 F Temperature 97.9 F Temperature 99.8 F Results - Labs CBC & Chem 7: 02/04/22 03:18 02/04/22 02:44 Labs: Abnormal lab results 02/03/22 02/04/22 02/04/22 Range/Units 16:27 02:44 03:18 WBC 1.2 L* (4.5-11.0) K/mm3 Hgb 8.2 L (10.1-14.3) gm/dl Hct 26.6 L (30.3-42.9) % MCV 59 L (79-97) fl MCH 18 L (28-32) pg RDW 19.6 H (13.2-15.2) % Plt Count 50 L (140-440) K/mm3 ABG pH (7.350-7.450) pH Units ABG pO2 (80.0-90.0) mm Hg ABG O2 Saturation (95.0-99.0) % ABG Hemoglobin (12.0-16.0) gm/dl Oxyhemoglobin (95.0-99.0) % Sodium 148 H (137-145) mmol/L Chloride 116.3 H (98-107) mmol/L Glucose 139 H (65-100) mg/dL POC Glucose 119 H (70-105) mg/dL Direct Bilirubin 0.3 H (0-0.2) mg/dL AST 92 H (5-40) units/L ALT 76 H (7-56) units/L Total Protein 4.7 L (6.3-8.2) g/dL Albumin 1.6 L (3.9-5) g/dL 02/04/22 02/04/22 02/04/22 Range/Units 05:15 05:26 11:17 WBC (4.5-11.0) K/mm3 Hgb (10.1-14.3) gm/dl Hct (30.3-42.9) % MCV (79-97) fl MCH (28-32) pg RDW (13.2-15.2) % Plt Count (140-440) K/mm3 ABG pH 7.311 L (7.350-7.450) pH Units ABG pO2 50.1 L (80.0-90.0) mm Hg ABG O2 Saturation 83.6 L (95.0-99.0) % ABG Hemoglobin 8.6 L (12.0-16.0) gm/dl Oxyhemoglobin 81.9 L (95.0-99.0) % Sodium (137-145) mmol/L Chloride (98-107) mmol/L Glucose (65-100) mg/dL POC Glucose 115 H 166 H (70-105) mg/dL Direct Bilirubin (0-0.2) mg/dL AST (5-40) units/L ALT (7-56) units/L Total Protein (6.3-8.2) g/dL Albumin (3.9-5) g/dL - Imaging and Cardiology Chest x-ray: report reviewed, image reviewed (diffuse b/l pna) Assessment and Plan Cultures: 01/31/2022 blood culture: No growth 02/01/2022 tracheal aspirate culture: GNR COVID-19 PCR: Negative A/P: 61-year-old female was admitted from [facility] with hypoglycemia: #Refractory septic shock, severe acidosis, s/p PEA arrest on 02/01/2022 #Bilateral pneumonia: Probably aspiration following PEA arrest. Initial chest x-ray did not show any pneumonia. #Possible UTI: UA showed pyuria #Acute respiratory failure: On mechanical ventilation. #Diabetic ketoacidosis on admission #Pancytopenia, neutropenia: ?sepsis. ?[facility] Recs: -Cefepime switched to meropenem pending GNR identification -Continue vancomycin for now -Follow-up cultures -Hematology consulted for pancytopenia -Poor prognosis Doroteo Morales MD, FACP, [facility] O: [phone] F: [phone] C: [phone]
--- NOTE | 2022-02-04 14:16 | Procedure Note ---
Date of procedure: 02/04/22 Pre-op diagnosis: Septic Shock Post-op diagnosis: same Procedure: Right Femoral Arterial Line Placement Patient was evaluated and required arterial line placement for Hemodynanic monitoring due to high pressors requirement. Informed consent was obtained from patient's daughter, Bridget Jackson A time-out was completed verifying correct patient, procedure, site, and positioning. Hand hygiene were performed immediately prior to the procedure and sterile technique was used throughout the procedure. The vessel was identify using an ultrasound machine, the right groin was prepped using chlorhexidine scrub and draped in sterile fashion using a three quarter sheet drape. The femoral artery was again identified, Anesthesia was achieved using 1% lidocaine. Utilizing the Seldinger technique, a finder needle was inserted into the femoral artery under ultrasound guidance, pulsating arterial blood return was obtained, then a guidewire was advanced easily into the artery. The catheter was then advanced over the wire and the needle and wire were wi thdrawn. The catheter was then connected to the ekg monitor tech and zeroed, appropriate waveform and blood pressure tracing was observed on the monitor. The catheter was sutured in place, a Biopatch was placed at the insertion site and covered with a sterile dressing. The patient tolerated the procedure well and no complications noted Total Time Spent with Patient (Minutes): 60 minutes Anesthesia: local Surgeon: NICOLA TREVINO Estimated blood loss: 50-100ml Condition: critical Disposition: ICU
[2022-02-04] MEDS: MEROPENEM/NS 1 GRAM/100 ML 1 GRAM/100 ML BAG IV SCH ×2 (14:46→20:59)
[2022-02-04 15:01] LABS: Bacteria,Urine 1+ /HPF (Negative); Mucus,Urine FEW /HPF
[2022-02-04 15:06] LABS: Bilirubin,Urine Negative (Negative); Blood,Urine Large (Negative); Color,Urine Yellow (Yellow)
[2022-02-04 15:07] LABS: Protein,Urine >500 mg/dL (Negative); Urobilinogen,Urine < 2.0 mg/dL (<2.0)
[2022-02-04 15:14] LABS: Alanine Aminotransferase 75 units/L (7-56); Albumin 1.7 g/dL (3.9-5)
[2022-02-04 15:22] LABS: Bilirubin,Direct < 0.2 mg/dL (0-0.2)
[2022-02-04 20:45] LABS: ABG Base Excess -2.2 mmol/L (-2.0-3.0); ABG HCO3 24.2 mmol/L (20.0-26.0); ABG Methemoglobin 0.6 % (0.0-1.5); ABG Oxygen Saturation 72.1 % (95.0-99.0); ABG PCO2 51.3 mm Hg; ABG PH 7.292 pH Units (7.350-7.450); ABG PO2 40.3 mm Hg (80.0-90.0)
[2022-02-04] MEDS: SENNOSIDES/DOCUSATE SODIUM 8.6/50 MG TAB FEEDTUBE SCH (20:59)
[2022-02-04 22:59] LABS: Hematocrit 22.6 % (30.3-42.9); Hemoglobin 7.1 gm/dl (10.1-14.3)
[2022-02-04] MEDS ORDERED: SODIUM CHLORIDE 0.9% 500 ML 500 ML IV ONE (23:36)
[2022-02-05] MEDS: VANCOMYCIN 750 MG in SODIUM CHLORIDE 0.9% 250ML 250 ML IV SCH (00:18)
[2022-02-05] MEDS ORDERED: FUROSEMIDE 40 MG/4 ML INJ IV ONE (01:46)
--- NOTE | 2022-02-05 04:00 | XRay Report ---
CHEST 1 VIEW 02/05/2022 2:52 AM INDICATION / CLINICAL INFORMATION: follow up respiratory failure. COMPARISON: One view of the chest from 02/04/2022. FINDINGS: SUPPORT DEVICES: Unchanged. HEART / MEDIASTINUM: Stable. LUNGS / PLEURA: Bilateral airspace opacities have slightly improved. No significant pleural effusion. No pneumothorax. ADDITIONAL FINDINGS: No significant additional findings. IMPRESSION: Slightly improved aeration of the lungs without other significant interval changes. Signer Name: Chau Pham MD Signed: 02/05/2022 3:55 AM Workstation Name: [id number]
[2022-02-05] MEDS: MEROPENEM/NS 1 GRAM/100 ML 1 GRAM/100 ML BAG IV SCH ×2 (04:57→12:15)
[2022-02-05] MEDS: INSULIN REGULAR, HUMAN 100 UNITS/1 ML SUB-Q SCH ×3 (04:59→18:51)
[2022-02-05 05:12] LABS: Hematocrit 30.1 % (30.3-42.9); Hemoglobin 9.6 gm/dl (10.1-14.3); Mean Corpuscular HGB Conc 32 % (30-34); Red Blood Count 4.71 M/mm3 (3.65-5.03)
[2022-02-05 05:16] LABS: Mean Corpuscular Volume 64 fl (79-97); Platelet Count 50 K/mm3 (140-440); Red Cell Distribution Width 26.9 % (13.2-15.2)
[2022-02-05 05:28] LABS: Alanine Aminotransferase 67 units/L (7-56); Albumin 1.8 g/dL (3.9-5); BUN/Creatinine Ratio 26; Blood Urea Nitrogen 21 mg/dL (7-17); Calcium 8.6 mg/dL (8.4-10.2); Hemolysis Index 3
[2022-02-05] MEDS: INSULIN GLARGINE 100 UNITS/ML SUB-Q SCH (08:04)
[2022-02-05] MEDS: fentaNYL DRIP Premix 2,000 MCG/100 ML BAG IV SCH ×2 (08:05→18:06)
[2022-02-05 08:47] LABS: ABG Base Excess 2.3 mmol/L (-2.0-3.0); ABG HCO3 27.8 mmol/L (20.0-26.0); ABG Methemoglobin 0.5 % (0.0-1.5); ABG Oxygen Saturation 90.8 % (95.0-99.0); ABG PCO2 48.1 mm Hg; ABG PH 7.38 pH Units (7.350-7.450); ABG PO2 57.1 mm Hg (80.0-90.0)
[2022-02-05 09:07] LABS: INR 1.02 (0.87-1.13)
[2022-02-05 09:08] LABS: Partial Thromboplastin Time 34.4 Sec. (24.2-36.6)
[2022-02-05] MEDS: FAMOTIDINE 20 MG TAB FEEDTUBE SCH ×2 (09:31→21:10)
--- NOTE | 2022-02-05 10:16 | Progress Note ---
<NICOLA TREVINO - Last Filed: 02/05/22 17:57> Assessment and Plan Assessment and plan: This is a 61-year-old female with known past medical history of DM, dementia, HLD, and HTN initially admitted for Hypoglycemia then went into DKA and was transferred to the ICU where she PEA arrested on 02/01. Patient is now with septic shock and on ventilatory support. Hospital Course to Date: 02/01: patient was transferred to ICU as lab work was consistent with DKA and started on insulin drip. Central line placed for IV access. Patient was given bicarb push and started on a bicarb drip. She was also started on Rocephin due to UTI however antibiotics are broadened to cefepime and vancomycin. 02/02: s/p cardiac arrest on 02/01. Bicarbonate drip discontinued. Pancytopenia noted, anion gap closed and transitioned to SSI and long-acting insulin. Patient was having hypoglycemia this morning which has been corrected now. Started on tube feeding. Potassium and phosphorus will be repleted. Hype rnatremia noted and FWF started with tube feedings. COVID-19 PCR pending. Venous Doppler ultrasound pending. Neurology and cardiology consulted. Echocardiogram pending. Patient currently on Levophed and sedated with propofol. Fentanyl added. Given 1 LR bolus this morning for hypotension. 02/03: LR bolus x2, remains on levophed, tachycardia and EKG completed which shows tachycardia. Increase in FiO2, Will culture with next temp spike. Will give 1 gm Calcium Gluconate. 02/04: S/p Bronch this am by [facility] at the bedside. Patient still spiking high temp despite broad spectrum IV Abx. Remains on high pressors with worsen neutropenia and thrombocytopenia. Will panculture this am, antifungal culture was also ordered. Continue current empiric IV Abx for now, awaiting sensitivity. Will also consult ID for further eval. Possible Hematology consult for pancytopenia per CCM. Possible family meeting with [facility] this week, case management to arrange. 02/05: Back up on full support on the vent. CXR with worsen bilateral opacities, S/p X1 dose of IV lasix. Patient also received 1units of PRBCs overnight due to anemia, H&H stable this am and no s/s of any active bleeding. Patient remains pancytopenic, still febrile. IV abx changed to Merrem and Vanc per ID, hematology consult pending. ST with episodes of SVT this am, plan for amiodarone gtt per Cardio. Off pressors this am. BP remains boderline, 25% IV Albumin and X1 dose of additional IV lasix gain today per CCM. Continue FWF for hypernatremi a. Lantus adjusted due to hypoglycemia. Possible family meeting tomorrow with [facility]. Assessment and Plan #Septic Shock # Supraventricular Tachycardia(SVT) #S/p PEA Arrest with [facility] #H/o HTN, HLD - Coded in the ICU on 02/01, PEA arrest - [facility] achieved post 1amp of bcarb and EPI - With tachycardia, persistent fevers, s/p multiple pressors - Off pressors this am, BP remains marginal - Worsen bilateral opacities with flashed pulmo edema s/p X1 dose of IV lasix overnight - Additional Lasix today, X1 of 25% IV Albumin - ST with episode of SVT, HR sustaining in the 120-140s - Echo reviewed, EF 55-60%, see report for detail - Cardiology consulted, appreciated recommendations - Plan for amiodarone gtt per Cardio - Continue blood pressure monitor per protocol - Maintain MAP above 65 #Acute Hypoxic Respiratory Failure #Bilateral Pneumonia - Intubated during code on 02/01 - This am CXR with worsening bilateral airspace opacities - 02/04 s/p Bronchoscopy at the bedside by [facility]- BAL sent to lab - Vent setting: PRVC-100%,12,12,350 - AM ABG noted - s/p X1 dose of IV lasix - CCM consulted, appreciate recommendations - Continue IV Abx and Nebs per CCM - Additional Lasix today with X1 of 25% IV Albumin - VAP bundle addressed - Aspiration precaution HOB above 30 - Daily ABG and CXR - Continue SPO2 monitoring for SPO2 goal above 92% #Septic Shock #Bilateral Pneumonia #Urinary Tract Infection(UTI) - With high fevers, neutropenia, thrombocytopenia, tachycardia, and hypotensive on multiple pressors - UA consistent with pyuria, Blood cultures with NGTD, Sputum culture with GNR - BLE doppler negative for DVT - recultured on 02/04, results pending - ID consulted, appreciate recommendations - Continue IV Abx per ID- Merrem and Vanco - f/u on culture - Monitor CBC and temperature curve #Pancytopenia #Microcytic Anemia - Significant drop of WBCs and Plt count from admit - Probably due to septic shock, currently on Broad spectrum IV Abx - Hgb dropped from 8.1 to 7.1, No s/s of active bleeding - S/p 1unit PRBCs, H&H stable this am - Continue to trend CBC - Hold AC for now - Hematology consult pending #Acute Metabolic Encephalopathy #h/o Dementia - Intubated and Sedated on Fent. gtt - Titrate sedations for RASS goal of 0 to -2 - Daily SAT and SBT per CCM - Avoid benzodiazepine to reduce the possibility of delirium - PRN Analgesia for CPOT greater than 3 - Maintenance of sleep-wake cycle - Neurology consulted, appreciate recommendations #Hypernatremia - Continue FWF Q4hrs - Strict intake and output - Avoid nephrotoxic medications - Monitor and replace electrolytes as needed #Type 2 Diabetes mellitus #S/p DKA - initially presented with hypoglycemia then went into DKA - s/p DKA protocol - Hemoglobin A1c 11.1 - BG dropped this am, Lantus adjusted - Continue BG and SSI Q6hrs - Avoid Hypoglycemia #GI/DVT Prophylaxis - PPI- Pepcid - SCDs to bilateral lower extremities while in bed The high probability of a clinically significant, sudden or life threatening deterioration of the [Multiple] system(s) required my full and direct attention, intervention and personal management. The aggregate critical care time was [60] minutes. This time is in addition to time spent performing reported procedures but includes the following: [x] Data Review and interpretation [x] Patient assessment and monitoring of vital signs [x] Documentation [x] Medication orders and management Disposition Plan: ICU Total Time Spent with Patient (Minutes): 60 History Interval history: Patient seen and examined at the bedside. Remains on the vent, Fio2 at 100%, peep 12. Received 1 unit of PBRCs overnight due to anemia and worsen hypoxia overnight. Then pink frothy sputum reported post blood transfusion, X1 dose of IV Lasix administered. Patient also had episodes of SVT overnight and this am. Patient remains in ST on the monitor, HR in the 120-130s this am. Off pressors, BP remains marginal, still with persistent fevers. Hospitalist Physical - Constitutional Vitals: Temp Pulse Resp BP Pulse Ox 100.2 F H 128 H 10 L 90/62 96 02/05/22 08:00 02/05/22 10:00 02/05/22 10:00 02/05/22 10:00 02/05/22 10:00 General appearance: Present: no acute distress, other (Intubated and Sedated) - EENT Eyes: Present: PERRL (Sluggish) - Respiratory Respiratory effort: normal Respiratory: bilateral: rhonchi - Cardiovascular Rhythm: regular Heart Sounds: Present: S1 & S2 - Extremities Extremities: no ischemia, pulses intact, pulses symmetrical Extremity abnormal: edema - Peripheral Assessment Generalized Edema Type: Pitting Edema Degree: 2+ Capillary Refill: < 3 seconds Skin Temperature: Warm Peripheral Pulses: within normal limits - Abdominal General gastrointestinal: soft, non-distended, hypoactive bowel sounds - Integumentary Integumentary: Present: warm, erythema (Weeping) - Psychiatric Psychiatric: other (Intubated and sedated. Withdrawal from painful stimuli) - Neurologic Neurologic: other (Intubated and sedated. Withdrawal from painful stimuli) - Allied Health Allied health notes reviewed: nursing, case management HEART Score - HEART Score Troponin: Troponin T < 0.010 ng/mL (0.00-0.029) 02/03/22 16:15 Results - Labs CBC & Chem 7: 02/05/22 04:40 02/05/22 04:40 Labs: Laboratory Last Values WBC 3.1 K/mm3 (4.5-11.0) L 02/05/22 04:40 RBC 4.71 M/mm3 (3.65-5.03) 02/05/22 04:40 Hgb 9.6 gm/dl (10.1-14.3) L 02/05/22 04:40 Hct 30.1 % (30.3-42.9) L D 02/05/22 04:40 MCV 64 fl (79-97) L 02/05/22 04:40 MCH 20 pg (28-32) L 02/05/22 04:40 MCHC 32 % (30-34) 02/05/22 04:40 RDW 26.9 % (13.2-15.2) H 02/05/22 04:40 Plt Count 50 K/mm3 (140-440) L 02/05/22 04:40 Lymph % (Auto) Technical Writer And Editor 02/02/22 04:00 Add Manual Diff Complete 02/03/22 04:00 Total Counted 50 02/03/22 04:00 Seg Neutrophils % Technical Writer And Editor 02/02/22 04:00 Seg Neuts % (Manual) 76.0 % (40.0-70.0) H 02/03/22 04:00 Band Neutrophils % 18.0 % 02/03/22 04:00 Lymphocytes % (Manual) 2.0 % (13.4-35.0) L 02/03/22 04:00 Reactive Lymphs % (Man) 0 % 02/03/22 04:00 Monocytes % (Manual) 4.0 % (0.0-7.3) 02/03/22 04:00 Eosinophils % (Manual) 0 % (0.0-4.3) 02/03/22 04:00 Basophils % (Manual) 0 % (0.0-1.8) 02/03/22 04:00 Metamyelocytes % 0 % 02/03/22 04:00 Myelocytes % 0 % 02/03/22 04:00 Promyelocytes % 0 % 02/03/22 04:00 Blast Cells % 0 % 02/03/22 04:00 Nucleated RBC % 4.0 % (0.0-0.9) H 02/03/22 04:00 Seg Neutrophils # Man 2.8 K/mm3 (1.8-7.7) 02/03/22 04:00 Band Neutrophils # 0.7 K/mm3 02/03/22 04:00 Lymphocytes # (Manual) 0.1 K/mm3 (1.2-5.4) L 02/03/22 04:00 Abs React Lymphs (Man) 0.0 K/mm3 02/03/22 04:00 Monocytes # (Manual) 0.1 K/mm3 (0.0-0.8) 02/03/22 04:00 Eosinophils # (Manual) 0.0 K/mm3 (0.0-0.4) 02/03/22 04:00 Basophils # (Manual) 0.0 K/mm3 (0.0-0.1) 02/03/22 04:00 Metamyelocytes # 0.0 K/mm3 02/03/22 04:00 Myelocytes # 0.0 K/mm3 02/03/22 04:00 Promyelocytes # 0.0 K/mm3 02/03/22 04:00 Blast Cells # 0.0 K/mm3 02/03/22 04:00 WBC Morphology Not Reportable 02/03/22 04:00 Hypersegmented Neuts Not Reportable 02/03/22 04:00 Hyposegmented Neuts Not Reportable 02/03/22 04:00 Hypogranular Neuts Not Reportable 02/03/22 04:00 Smudge Cells Not Reportable 02/03/22 04:00 Toxic Granulation Not Reportable 02/03/22 04:00 Toxic Vacuolation Not Reportable 02/03/22 04:00 Dohle Bodies Few 02/03/22 04:00 Pelger-Huet Anomaly Not Reportable 02/03/22 04:00 Sung Rods Not Reportable 02/03/22 04:00 Platelet Estimate Consistent w auto 02/03/22 04:00 Clumped Platelets Not Reportable 02/03/22 04:00 Plt Clumps, EDTA Not Reportable 02/03/22 04:00 Large Platelets Not Reportable 02/03/22 04:00 Giant Platelets Not Reportable 02/03/22 04:00 Platelet Satelliting Not Reportable 02/03/22 04:00 Plt Morphology Comment Not Reportable 02/03/22 04:00 RBC Morphology Not Reportable 02/03/22 04:00 Dimorphic RBCs Not Reportable 02/03/22 04:00 Polychromasia Not Reportable 02/03/22 04:00 Hypochromasia 3+ 02/03/22 04:00 Poikilocytosis 2+ 02/03/22 04:00 Anisocytosis 1+ 02/03/22 04:00 Microcytosis 2+ 02/03/22 04:00 Macrocytosis Not Reportable 02/03/22 04:00 Spherocytes Not Reportable 02/03/22 04:00 Pappenheimer Bodies Not Reportable 02/03/22 04:00 Sickle Cells Not Reportable 02/03/22 04:00 Target Cells 1+ 02/03/22 04:00 Tear Drop Cells Few 02/03/22 04:00 Ovalocytes Few 02/03/22 04:00 Helmet Cells Not Reportable 02/03/22 04:00 [place]-Strawn Bodies Not Reportable 02/03/22 04:00 [place] Rings Not Reportable 02/03/22 04:00 [place] Cells 1+ 02/03/22 04:00 Bite Cells Not Reportable 02/03/22 04:00 Crenated Cell Not Reportable 02/03/22 04:00 Elliptocytes Few 02/03/22 04:00 Acanthocytes (Spur) Not Reportable 02/03/22 04:00 Rouleaux Not Reportable 02/03/22 04:00 Hemoglobin C Crystals Not Reportable 02/03/22 04:00 Schistocytes Rare 02/03/22 04:00 Malaria parasites Not Reportable 02/03/22 04:00 Sven Bodies Not Reportable 02/03/22 04:00 Hem Pathologist Commnt No 02/03/22 04:00 PT 14.8 Sec. (12.2-14.9) 02/05/22 08:48 INR 1.02 (0.87-1.13) 02/05/22 08:48 APTT 34.4 Sec. (24.2-36.6) 02/05/22 08:48 Fibrinogen 795 mg/dl (211-480) H 02/05/22 08:48 ABG pH 7.380 pH Units (7.350-7.450) 02/05/22 08:10 POC ABG pCO2 37.3 mmHg (32.0-48.0) 02/02/22 04:49 ABG pCO2 48.1 mm Hg 02/05/22 08:10 POC ABG pO2 79.9 mmHg (83-108) L 02/02/22 04:49 ABG pO2 57.1 mm Hg (80.0-90.0) L 02/05/22 08:10 POC ABG HCO3 30.3 02/02/22 04:49 ABG HCO3 27.8 mmol/L (20.0-26.0) H 02/05/22 08:10 ABG O2 Saturation 90.8 % (95.0-99.0) L 02/05/22 08:10 ABG O2 Content 10.7 (0.0-44) 02/05/22 08:10 POC ABG Base Excess 7.1 02/02/22 04:49 ABG Base Excess 2.3 mmol/L (-2.0-3.0) 02/05/22 08:10 ABG Hemoglobin 8.5 gm/dl (12.0-16.0) L 02/05/22 08:10 ABG Oxyhemoglobin 96.0 (94-98) 02/02/22 04:49 ABG Carboxyhemoglobin 1.6 % (0.0-5.0) 02/05/22 08:10 ABG Methemoglobin 0.5 % (0.0-1.5) 02/05/22 08:10 ABG Sodium Not Reportable 02/02/22 04:49 ABG Potassium Not Reportable 02/02/22 04:49 ABG Chloride Not Reportable 02/02/22 04:49 ABG Glucose Not Reportable 02/02/22 04:49 Oxyhemoglobin 88.9 % (95.0-99.0) L 02/05/22 08:10 Carboxyhemoglobin 0.2 (0.5-1.5) L 02/02/22 04:49 FiO2 100 % 02/05/22 08:10 FiO2 % 60.0 02/02/22 04:49 Sodium 148 mmol/L (137-145) H 02/05/22 04:40 Potassium 3.9 mmol/L (3.6-5.0) 02/05/22 04:40 Chloride 113.2 mmol/L (98-107) H 02/05/22 04:40 Carbon Dioxide 25 mmol/L (22-30) 02/05/22 04:40 Anion Gap 14 mmol/L 02/05/22 04:40 BUN 21 mg/dL (7-17) H 02/05/22 04:40 Creatinine 0.8 mg/dL (0.6-1.2) 02/05/22 04:40 Estimated GFR > 60 ml/min 02/05/22 04:40 BUN/Creatinine Ratio 26 % 02/05/22 04:40 Glucose 155 mg/dL (65-100) H 02/05/22 04:40 POC Glucose 156 mg/dL (70-105) H 02/05/22 04:43 Hemoglobin A1c 11.1 % (4-6) H 02/01/22 12:54 Lactic Acid 2.90 mmol/L (0.7-2.0) H* 02/05/22 08:48 Calcium 8.6 mg/dL (8.4-10.2) 02/05/22 04:40 Phosphorus 3.40 mg/dL (2.5-4.5) 02/04/22 02:44 Magnesium 2.20 mg/dL (1.7-2.3) 02/04/22 02:44 Total Bilirubin 0.50 mg/dL (0.1-1.2) 02/05/22 04:40 Direct Bilirubin < 0.2 mg/dL (0-0.2) 02/04/22 14:37 Indirect Bilirubin 0.1 mg/dL 02/04/22 14:37 AST 84 units/L (5-40) H 02/05/22 04:40 ALT 67 units/L (7-56) H 02/05/22 04:40 Alkaline Phosphatase 152 units/L (35-129) H 02/05/22 04:40 Lactate Dehydrogenase 879 units/L (91-180) H 02/05/22 04:40 Troponin T < 0.010 ng/mL (0.00-0.029) 02/03/22 16:15 Total Protein 5.0 g/dL (6.3-8.2) L 02/05/22 04:40 Albumin 1.8 g/dL (3.9-5) L 02/05/22 04:40 Albumin/Globulin Ratio 0.6 % 02/05/22 04:40 Arterial Blood Glucose Not Reportable 02/02/22 04:49 Urine Color Yellow (Yellow) 02/04/22 09:15 Urine Turbidity Cloudy (Clear) 02/04/22 09:15 Urine pH 6.0 (5.0-7.0) 02/04/22 09:15 Ur Specific [place] 1.025 (1.003-1.030) 02/04/22 09:15 Urine Protein >500 mg/dL (Negative) 02/04/22 09:15 Urine Glucose (UA) Negative mg/dL (Negative) 02/04/22 09:15 Urine Ketones Negative mg/dL (Negative) 02/04/22 09:15 Urine Blood Large (Negative) A 02/04/22 09:15 Urine Nitrite Negative (Negative) 02/04/22 09:15 Ur Reducing Substances Not Reportable 01/31/22 22:49 Urine Bilirubin Negative (Negative) 02/04/22 09:15 Urine Ictotest Not Reportable 01/31/22 22:49 Urine Urobilinogen < 2.0 mg/dL (<2.0) 02/04/22 09:15 Ur Leukocyte Esterase Negative (Negative) 02/04/22 09:15 Urine WBC (Auto) 12.0 /HPF (0.0-6.0) H 02/04/22 09:15 Urine RBC (Auto) 107.0 /HPF (0.0-6.0) 02/04/22 09:15 U Epithel Cells (Auto) 1.0 /HPF (0-13.0) 02/04/22 09:15 Urine Bacteria (Auto) 1+ /HPF (Negative) 02/04/22 09:15 Urine Mucus Few /HPF 02/04/22 09:15 Urine Yeast (Budding) 2+ /HPF 02/04/22 09:15 Coronavirus (PCR) Negative (Negative) 02/02/22 10:44 SARS-CoV-2 (PCR) Negative (Negative) 02/01/22 08:50 HIV 1&2 Antibody Rapid Non react (Non React) 02/04/22 14:37 HIV P24 Antigen Non react (Non React) 02/04/22 14:37 Blood Type A POSITIVE 02/04/22 20:22 Antibody Screen Negative 02/04/22 20:22 Crossmatch See Detail 02/04/22 20:22 Microbiology: Microbiology 01/31/22 20:33 Peripheral/Venous Blood Culture - Preliminary NO GROWTH AFTER 4 DAYS 01/31/22 20:33 Peripheral/Venous Blood Culture - Preliminary NO GROWTH AFTER 4 DAYS 02/01/22 17:31 Tracheal Aspirate Sputum Culture - Final Klebsiella Pneumoniae 02/04/22 14:37 Peripheral/Venous Blood Culture - Preliminary Culture in Progress 02/04/22 14:37 Peripheral/Venous Blood Fungal Culture - Preliminary Culture in Progress 02/04/22 14:37 Peripheral/Venous Blood Culture - Preliminary Culture in Progress 02/04/22 14:37 Peripheral/Venous Blood Fungal Culture - Preliminary Culture in Progress Gastelum/IV: Voiding Method External Female Catheter Active Medications - Current Medications Current Medications: Generic Name Dose Route Start Last Admin Trade Name Freq PRN Reason Stop Dose Admin Acetaminophen 650 mg 02/01/22 00:57 02/04/22 11:58 Acetaminophen 325 Mg Tab PO 650 mg Q4H PRN Administration Pain MILD(1-3)/Fever >100.5/ROSADO Albuterol 2.5 mg 02/01/22 00:57 Albuterol 2.5 Mg/3 Ml Nebu IH Q3HRT PRN Shortness Of Breath Lipase/Protease/Amylase 1 each 02/02/22 08:08 Lipase 10,500/Protease 25,000/Amylase 43,750 (Units) Dr Cap FEEDTUBE PRN PRN For Clogged Feeding Tube Atorvastatin Calcium 20 mg 02/03/22 22:00 02/04/22 20:59 Atorvastatin 20 Mg Tab FEEDTUBE 20 mg QHS JAMIL Administration Dextrose 50 ml 02/02/22 08:00 02/02/22 09:03 Dextrose 50% In Water (25gm) 50 Ml Syringe IV 50 ml Q30MIN PRN Administration Hypoglycemia Protocol Famotidine 20 mg 02/04/22 10:00 02/05/22 09:31 Famotidine 20 Mg Tab FEEDTUBE 20 mg BID JAMIL Administration Fentanyl 50 mcg 02/02/22 09:45 02/03/22 09:43 Fentanyl 100 Mcg/2 Ml Inj IV 50 mcg Q10MIN PRN Administration ANALGESIA Hydrophilic Ointment 1 applic 02/01/22 18:52 Lip Therapy Vaseline TP Q2HR PRN Dry Lips NORepinephrine/NS 8 MG-250 ML 8 mg in 250 mls @ 3.75 mls/hr 02/01/22 20:00 02/05/22 01:40 Norepinephrine/Ns 8 Mg-250 Ml (Double Conc) IV 0 mcg/min TITRATE JAMIL 0 mls/hr Titration Protocol 2 MCG/MIN Propofol 1,000 mg in 100 mls @ 1.429 mls/hr 02/01/22 19:17 02/04/22 15:07 Diprivan 10 Mg/Ml IV 0 mcg/kg/min TITR JAMIL 0 mls/hr Titration Protocol 5 MCG/KG/MIN Fentanyl Citrate 2,000 mcg in 100 mls @ 2.381 mls/hr 02/02/22 10:00 02/05/22 08:05 Fentanyl Drip Premix IV 4 mcg/kg/hr TITR JAMIL 9.525 mls/hr Administration Protocol 1 MCG/KG/HR Vancomycin HCl 750 mg/ Sodium 265 mls @ 166.667 mls/hr 02/02/22 13:00 02/05/22 00:18 Chloride IV 167 mls/hr Q12H JAMIL Administration Phenylephrine HCl 100 mg/ 100 mls @ 3 mls/hr 02/03/22 14:15 02/04/22 14:50 Sodium Chloride IV 0 mcg/min TITR JAMIL 0 mls/hr Titration Protocol 50 MCG/MIN Sodium Chloride 500 mls @ 5 mls/hr 02/04/22 03:00 02/04/22 04:04 Nacl 0.9% 500 Ml IV 5 mls/hr DIRECT JAMIL Administration Vasopressin 20 unit/ Sodium 101 mls @ 9.09 mls/hr 02/04/22 09:15 02/05/22 01:16 Chloride IV 0 units/min TITR JAMIL 0 mls/hr Titration Protocol 0.03 UNITS/MIN Meropenem/Sodium Chloride 1 gram in 100 mls @ 100 mls/hr 02/04/22 13:00 08/28 04:57 Merrem/Ns 1 Gram/100 Ml IV 100 mls/hr Q8H JAMIL Administration Protocol Insulin Glargine 20 units 02/03/22 08:00 02/05/22 08:04 Insulin Glargine 100 Units/Ml SUB-Q 20 units QAMDIAB JAMIL Administration Insulin Human Regular 0 units 02/02/22 18:00 02/05/22 04:59 Insulin Regular, Human 100 Units/1 Ml SUB-Q 3 units Q6H JAMIL Administration Protocol Multi-Ingred Cream/Lotion/Oil/Oint 1 applic 02/01/22 18:52 Mineral Oil/Petrolatum, White Ophth Oint 3.5 Gm OU Q4HR PRN Dry Eye(s) Ondansetron HCl 4 mg 02/01/22 00:57 Ondansetron 4 Mg/2 Ml Inj IV Q8H PRN Nausea And Vomiting Senna/Docusate Sodium 1 tab 02/02/22 22:00 02/04/22 20:59 Sennosides/Docusate Sodium 8.6/50 Mg Tab FEEDTUBE 1 tab QHS JAMIL Administration Simple Syrup 15 ml 02/02/22 08:08 Simple Syrup 15 Ml FEEDTUBE PRN PRN Hypoglycemia Simple Syrup 30 ml 02/02/22 08:08 Simple Syrup 15 Ml FEEDTUBE PRN PRN Hypoglycemia Sodium Bicarbonate 325 mg 02/02/22 08:08 Sodium Bicarbonate 325 Mg Tab FEEDTUBE PRN PRN For Clogged Feeding Tube Sodium Chloride 10 ml 02/01/22 10:00 02/05/22 09:32 Sodium Chloride 0.9% 10 Ml Flush Syringe IV 10 ml BID JAMIL Administration Sodium Chloride 10 ml 02/01/22 00:57 Sodium Chloride 0.9% 10 Ml Flush Syringe IV PRN PRN LINE FLUSH Nutrition/Malnutrition Assess - Dietary Evaluation Nutrition/Malnutrition Findings: Nutrition Notes Start: 02/01/22 17:50 Freq: Status: Active Protocol: Document 02/04/22 10:28 JACQUELINE (Rec: 02/04/22 10:40 JACQUELINE [id number]) Nutrition Notes Need for Assessment generated from: MD Order Current Diagnosis Diabetes,Respiratory Failure Other Pertinent Diagnosis DKA, UTI, AMS Current Diet TF - Glucerna 1.2 at 35ml/hr ( per MD order) Labs/Tests WBC 1.2 Na 148 A1C 11.1 Pertinent Medications Levophed gtt, Phenylephrine gtt, Vasopressin gtt, Propofol at 5.715ml/hr (provides 151 kcal) Height 5 ft 4 in Weight 46.7 kg [place] Body Weight (kg) 54.54 BMI 17.6 Weight Status Underweight Subjective/Other Information RD consulted for TF. Pt remains on vent support. Difficulty In Swallowing Skin Integrity/Comment No skin breakdown reported Minimum of two criteria No Fluid Accumulation Mild (non-severe) #1 Nutrition Diagnosis Inadequate oral intake Etiology mech ventilation As Evidenced by Signs and Symptoms pt NPO Is patient on ventilator? Yes Is Patient Ambulatory and/or Out of Bed No REE-([facility]-confined to bed) 1237.500 Kcal/Kg value to use for calculation 35 Approximate Energy Requirements Using 1635 kcal/Kg Calculation Used for Recommendations Kcal/kg Additional Notes Pro needs 1.2-2g/k-93g/ day Fluid needs 1ml/kcal Nutrition Intervention Nutrition Support: Glucerna 1.2 at 55ml/hr with 250ml water flush q4h until hypernatremia resolved. Decrease water flush to 100ml q4h once Na lab WNL. Kcal 1,584 Protein (gm) 79 Carbohydrates (gm) 151 Fat (gm) 79 Fluid (mL) 1,063 Fiber (gm) 21 Goal #1 TF tolerance Goal #2 TF to meet 100% energy and pro needs Goal #3 Wt maintenance and/or gain Anticipated Discharge Needs: Continue EN support if necessary; CHO-controlled diet if able to advance diet Follow-Up By: 02/06/22 Additional Comments F/U: TF tolerance, vent status , pressor support, Na lab/ water flushes <MELISSA WHITE - Last Filed: 02/06/22 07:15> Assessment and Plan Assessment and plan: I saw and evaluated the patient. I agree with the findings and the plan of care as documented in the Nurse Practitioner's~note, with the following corrections and additions. Hospitalist Physical - Constitutional Vitals: Temp Pulse Resp BP Pulse Ox 99.1 F 104 H 17 89/62 91 02/06/22 04:00 02/06/22 06:16 02/06/22 06:16 02/06/22 06:16 02/06/22 06:16 HEART Score - HEART Score Troponin: Troponin T < 0.010 ng/mL (0.00-0.029) 02/03/22 16:15 Results - Labs CBC & Chem 7: 02/06/22 04:33 02/06/22 04:33 Labs: Laboratory Last Values WBC 8.3 K/mm3 (4.5-11.0) 02/06/22 04:33 RBC 4.10 M/mm3 (3.65-5.03) 02/06/22 04:33 Hgb 8.4 gm/dl (10.1-14.3) L 02/06/22 04:33 Hct 26.1 % (30.3-42.9) L 02/06/22 04:33 MCV 64 fl (79-97) L 02/06/22 04:33 MCH 21 pg (28-32) L 02/06/22 04:33 MCHC 32 % (30-34) 02/06/22 04:33 RDW 26.2 % (13.2-15.2) H 02/06/22 04:33 Plt Count 38 K/mm3 (140-440) L 02/06/22 04:33 Lymph % (Auto) Technical Writer And Editor 02/02/22 04:00 Add Manual Diff Complete 02/03/22 04:00 Total Counted 50 02/03/22 04:00 Seg Neutrophils % Technical Writer And Editor 02/02/22 04:00 Seg Neuts % (Manual) 76.0 % (40.0-70.0) H 02/03/22 04:00 Band Neutrophils % 18.0 % 02/03/22 04:00 Lymphocytes % (Manual) 2.0 % (13.4-35.0) L 02/03/22 04:00 Reactive Lymphs % (Man) 0 % 02/03/22 04:00 Monocytes % (Manual) 4.0 % (0.0-7.3) 02/03/22 04:00 Eosinophils % (Manual) 0 % (0.0-4.3) 02/03/22 04:00 Basophils % (Manual) 0 % (0.0-1.8) 02/03/22 04:00 Metamyelocytes % 0 % 02/03/22 04:00 Myelocytes % 0 % 02/03/22 04:00 Promyelocytes % 0 % 02/03/22 04:00 Blast Cells % 0 % 02/03/22 04:00 Nucleated RBC % 4.0 % (0.0-0.9) H 02/03/22 04:00 Seg Neutrophils # Man 2.8 K/mm3 (1.8-7.7) 02/03/22 04:00 Band Neutrophils # 0.7 K/mm3 02/03/22 04:00 Lymphocytes # (Manual) 0.1 K/mm3 (1.2-5.4) L 02/03/22 04:00 Abs React Lymphs (Man) 0.0 K/mm3 02/03/22 04:00 Monocytes # (Manual) 0.1 K/mm3 (0.0-0.8) 02/03/22 04:00 Eosinophils # (Manual) 0.0 K/mm3 (0.0-0.4) 02/03/22 04:00 Basophils # (Manual) 0.0 K/mm3 (0.0-0.1) 02/03/22 04:00 Metamyelocytes # 0.0 K/mm3 02/03/22 04:00 Myelocytes # 0.0 K/mm3 02/03/22 04:00 Promyelocytes # 0.0 K/mm3 02/03/22 04:00 Blast Cells # 0.0 K/mm3 02/03/22 04:00 WBC Morphology Not Reportable 02/03/22 04:00 Hypersegmented Neuts Not Reportable 02/03/22 04:00 Hyposegmented Neuts Not Reportable 02/03/22 04:00 Hypogranular Neuts Not Reportable 02/03/22 04:00 Smudge Cells Not Reportable 02/03/22 04:00 Toxic Granulation Not Reportable 02/03/22 04:00 Toxic Vacuolation Not Reportable 02/03/22 04:00 Dohle Bodies Few 02/03/22 04:00 Pelger-Huet Anomaly Not Reportable 02/03/22 04:00 Sung Rods Not Reportable 02/03/22 04:00 Platelet Estimate Consistent w auto 02/03/22 04:00 Clumped Platelets Not Reportable 02/03/22 04:00 Plt Clumps, EDTA Not Reportable 02/03/22 04:00 Large Platelets Not Reportable 02/03/22 04:00 Giant Platelets Not Reportable 02/03/22 04:00 Platelet Satelliting Not Reportable 02/03/22 04:00 Plt Morphology Comment Not Reportable 02/03/22 04:00 RBC Morphology Not Reportable 02/03/22 04:00 Dimorphic RBCs Not Reportable 02/03/22 04:00 Polychromasia Not Reportable 02/03/22 04:00 Hypochromasia 3+ 02/03/22 04:00 Poikilocytosis 2+ 02/03/22 04:00 Anisocytosis 1+ 02/03/22 04:00 Microcytosis 2+ 02/03/22 04:00 Macrocytosis Not Reportable 02/03/22 04:00 Spherocytes Not Reportable 02/03/22 04:00 Pappenheimer Bodies Not Reportable 02/03/22 04:00 Sickle Cells Not Reportable 02/03/22 04:00 Target Cells 1+ 02/03/22 04:00 Tear Drop Cells Few 02/03/22 04:00 Ovalocytes Few 02/03/22 04:00 Helmet Cells Not Reportable 02/03/22 04:00 Starr-Strawn Bodies Not Reportable 02/03/22 04:00 [place] Rings Not Reportable 02/03/22 04:00 Lesly Cells 1+ 02/03/22 04:00 Bite Cells Not Reportable 02/03/22 04:00 Crenated Cell Not Reportable 02/03/22 04:00 Elliptocytes Few 02/03/22 04:00 Acanthocytes (Spur) Not Reportable 02/03/22 04:00 Rouleaux Not Reportable 02/03/22 04:00 Hemoglobin C Crystals Not Reportable 02/03/22 04:00 Schistocytes Rare 02/03/22 04:00 Malaria parasites Not Reportable 02/03/22 04:00 Sven Bodies Not Reportable 02/03/22 04:00 Hem Pathologist Commnt No 02/03/22 04:00 PT 14.8 Sec. (12.2-14.9) 02/05/22 08:48 INR 1.02 (0.87-1.13) 02/05/22 08:48 APTT 34.4 Sec. (24.2-36.6) 02/05/22 08:48 Fibrinogen 795 mg/dl (211-480) H 02/05/22 08:48 ABG pH 7.330 pH Units (7.350-7.450) L 02/06/22 04:50 POC ABG pCO2 37.3 mmHg (32.0-48.0) 02/02/22 04:49 ABG pCO2 60.6 mm Hg 02/06/22 04:50 POC ABG pO2 79.9 mmHg (83-108) L 02/02/22 04:49 ABG pO2 57.9 mm Hg (80.0-90.0) L 02/06/22 04:50 POC ABG HCO3 30.3 02/02/22 04:49 ABG HCO3 31.3 mmol/L (20.0-26.0) H 02/06/22 04:50 ABG O2 Saturation 89.6 % (95.0-99.0) L 02/06/22 04:50 ABG O2 Content 10.0 (0.0-44) 02/06/22 04:50 POC ABG Base Excess 7.1 02/02/22 04:49 ABG Base Excess 4.5 mmol/L (-2.0-3.0) H 02/06/22 04:50 ABG Hemoglobin 8.1 gm/dl (12.0-16.0) L 02/06/22 04:50 ABG Oxyhemoglobin 96.0 (94-98) 02/02/22 04:49 ABG Carboxyhemoglobin 1.6 % (0.0-5.0) 02/06/22 04:50 ABG Methemoglobin 0.5 % (0.0-1.5) 02/06/22 04:50 ABG Sodium Not Reportable 02/02/22 04:49 ABG Potassium Not Reportable 02/02/22 04:49 ABG Chloride Not Reportable 02/02/22 04:49 ABG Glucose Not Reportable 02/02/22 04:49 Oxyhemoglobin 87.7 % (95.0-99.0) L 02/06/22 04:50 Carboxyhemoglobin 0.2 (0.5-1.5) L 02/02/22 04:49 FiO2 100 % 02/06/22 04:50 FiO2 % 60.0 02/02/22 04:49 Sodium 146 mmol/L (137-145) H 02/06/22 04:33 Potassium 3.4 mmol/L (3.6-5.0) L 02/06/22 04:33 Chloride 104.5 mmol/L (98-107) 02/06/22 04:33 Carbon Dioxide 31 mmol/L (22-30) H 02/06/22 04:33 Anion Gap 14 mmol/L 02/06/22 04:33 BUN 21 mg/dL (7-17) H 02/06/22 04:33 Creatinine 0.9 mg/dL (0.6-1.2) 02/06/22 04:33 Estimated GFR > 60 ml/min 02/06/22 04:33 BUN/Creatinine Ratio 23 % 02/06/22 04:33 Glucose 230 mg/dL (65-100) H 02/06/22 04:33 POC Glucose 219 mg/dL (70-105) H 02/06/22 06:19 Hemoglobin A1c 11.1 % (4-6) H 02/01/22 12:54 Lactic Acid 3.10 mmol/L (0.7-2.0) H* 02/06/22 04:33 Calcium 8.5 mg/dL (8.4-10.2) 02/06/22 04:33 Phosphorus 3.40 mg/dL (2.5-4.5) 02/04/22 02:44 Magnesium 2.00 mg/dL (1.7-2.3) 02/05/22 Unknown Total Bilirubin 0.20 mg/dL (0.1-1.2) 02/06/22 04:33 Direct Bilirubin < 0.2 mg/dL (0-0.2) 02/06/22 04:33 Indirect Bilirubin 0.0 mg/dL 02/06/22 04:33 AST 70 units/L (5-40) H 02/06/22 04:33 ALT 53 units/L (7-56) 02/06/22 04:33 Alkaline Phosphatase 197 units/L (35-129) H 02/06/22 04:33 Lactate Dehydrogenase 879 units/L (91-180) H 02/05/22 04:40 Troponin T < 0.010 ng/mL (0.00-0.029) 02/03/22 16:15 Total Protein 5.3 g/dL (6.3-8.2) L 02/06/22 04:33 Albumin 2.4 g/dL (3.9-5) L 02/06/22 04:33 Albumin/Globulin Ratio 0.8 % 02/06/22 04:33 Arterial Blood Glucose Not Reportable 02/02/22 04:49 Urine Color Yellow (Yellow) 02/04/22 09:15 Urine Turbidity Cloudy (Clear) 02/04/22 09:15 Urine pH 6.0 (5.0-7.0) 02/04/22 09:15 Ur Specific [place] 1.025 (1.003-1.030) 02/04/22 09:15 Urine Protein >500 mg/dL (Negative) 02/04/22 09:15 Urine Glucose (UA) Negative mg/dL (Negative) 02/04/22 09:15 Urine Ketones Negative mg/dL (Negative) 02/04/22 09:15 Urine Blood Large (Negative) A 02/04/22 09:15 Urine Nitrite Negative (Negative) 02/04/22 09:15 Ur Reducing Substances Not Reportable 01/31/22 22:49 Urine Bilirubin Negative (Negative) 02/04/22 09:15 Urine Ictotest Not Reportable 01/31/22 22:49 Urine Urobilinogen < 2.0 mg/dL (<2.0) 02/04/22 09:15 Ur Leukocyte Esterase Negative (Negative) 02/04/22 09:15 Urine WBC (Auto) 12.0 /HPF (0.0-6.0) H 02/04/22 09:15 Urine RBC (Auto) 107.0 /HPF (0.0-6.0) 02/04/22 09:15 U Epithel Cells (Auto) 1.0 /HPF (0-13.0) 02/04/22 09:15 Urine Bacteria (Auto) 1+ /HPF (Negative) 02/04/22 09:15 Urine Mucus Few /HPF 02/04/22 09:15 Urine Yeast (Budding) 2+ /HPF 02/04/22 09:15 Vancomycin Trough 28.6 ug/mL (5.0-20.0) H 02/05/22 Unknown Coronavirus (PCR) Negative (Negative) 02/02/22 10:44 SARS-CoV-2 (PCR) Negative (Negative) 02/01/22 08:50 HIV 1&2 Antibody Rapid Non react (Non React) 02/04/22 14:37 HIV P24 Antigen Non react (Non React) 02/04/22 14:37 Blood Type A POSITIVE 02/04/22 20:22 Antibody Screen Negative 02/04/22 20:22 Crossmatch See Detail 02/04/22 20:22 Microbiology: Microbiology 01/31/22 20:33 Peripheral/Venous Blood Culture - Final NO GROWTH AFTER 5 DAYS 01/31/22 20:33 Peripheral/Venous Blood Culture - Final NO GROWTH AFTER 5 DAYS 02/04/22 14:37 Peripheral/Venous Blood Culture - Preliminary NO GROWTH AFTER 24 HOURS 02/04/22 14:37 Peripheral/Venous Blood Culture - Preliminary NO GROWTH AFTER 24 HOURS 02/04/22 14:37 Peripheral/Venous Blood Fungal Culture - Preliminary Culture in Progress Gastelum/IV: Voiding Method External Female Catheter Active Medications - Current Medications Current Medications: Generic Name Dose Route Start Last Admin Trade Name Freq PRN Reason Stop Dose Admin Acetaminophen 650 mg 02/01/22 00:57 02/04/22 11:58 Acetaminophen 325 Mg Tab PO 650 mg Q4H PRN Administration Pain MILD(1-3)/Fever >100.5/ROSADO Albuterol 2.5 mg 02/01/22 00:57 Albuterol 2.5 Mg/3 Ml Nebu IH Q3HRT PRN Shortness Of Breath Lipase/Protease/Amylase 1 each 02/02/22 08:08 Lipase 10,500/Protease 25,000/Amylase 43,750 (Units) Dr Avelar FEEDTUBE PRN PRN For Clogged Feeding Tube Atorvastatin Calcium 20 mg 02/03/22 22:00 02/05/22 21:10 Atorvastatin 20 Mg Tab FEEDTUBE 20 mg QHS JAMIL Administration Dextrose 50 ml 02/02/22 08:00 02/05/22 11:52 Dextrose 50% In Water (25gm) 50 Ml Syringe IV 25 ml Q30MIN PRN Administration Hypoglycemia Protocol Famotidine 20 mg 02/04/22 10:00 02/05/22 21:10 Famotidine 20 Mg Tab FEEDTUBE 20 mg BID JAMIL Administration Fentanyl 50 mcg 02/02/22 09:45 02/03/22 09:43 Fentanyl 100 Mcg/2 Ml Inj IV 50 mcg Q10MIN PRN Administration ANALGESIA Hydrophilic Ointment 1 applic 02/01/22 18:52 Lip Therapy Vaseline TP Q2HR PRN Dry Lips NORepinephrine/NS 8 MG-250 ML 8 mg in 250 mls @ 3.75 mls/hr 02/01/22 20:00 02/05/22 01:40 Norepinephrine/Ns 8 Mg-250 Ml (Double Conc) IV 0 mcg/min TITRATE JAMIL 0 mls/hr Titration Protocol 2 MCG/MIN Propofol 1,000 mg in 100 mls @ 1.429 mls/hr 02/01/22 19:17 02/04/22 15:07 Diprivan 10 Mg/Ml IV 0 mcg/kg/min TITR JAMIL 0 mls/hr Titration Protocol 5 MCG/KG/MIN Fentanyl Citrate 2,000 mcg in 100 mls @ 2.381 mls/hr 02/02/22 10:00 02/06/22 03:55 Fentanyl Drip Premix IV 4 mcg/kg/hr TITR JAMIL 9.525 mls/hr Administration Protocol 1 MCG/KG/HR Phenylephrine HCl 100 mg/ 100 mls @ 3 mls/hr 02/03/22 14:15 02/04/22 14:50 Sodium Chloride IV 0 mcg/min TITR JAMIL 0 mls/hr Titration Protocol 50 MCG/MIN Sodium Chloride 500 mls @ 5 mls/hr 02/04/22 03:00 02/04/22 04:04 Nacl 0.9% 500 Ml IV 5 mls/hr DIRECT JAMIL Administration Vasopressin 20 unit/ Sodium 101 mls @ 9.09 mls/hr 02/04/22 09:15 02/05/22 01:16 Chloride IV 0 units/min TITR JAMIL 0 mls/hr Titration Protocol 0.03 UNITS/MIN Amiodarone HCl 900 mg/ 500 mls @ 33.333 mls/hr 02/05/22 11:00 02/06/22 06:27 Dextrose IV 0.5 mg/min DIRECT JAMIL 16.667 mls/hr Administration Protocol 1 MG/MIN Ceftriaxone Sodium 2 gm in 100 mls @ 200 mls/hr 02/05/22 16:00 02/05/22 16:06 Rocephin/Ns 2 Gm/100 Ml IV 200 mls/hr Q24H JAMIL Administration Protocol Potassium Chloride 10 meq in 100 mls @ 100 mls/hr 02/06/22 07:00 Kcl 10meq/100ml IV 02/06/22 11:00 ONCE@0700 JAMIL Insulin Glargine 10 units 02/06/22 22:00 Insulin Glargine 100 Units/Ml SUB-Q QHS JAMIL Insulin Human Regular 0 units 02/02/22 18:00 02/06/22 06:26 Insulin Regular, Human 100 Units/1 Ml SUB-Q 4 units Q6H JAMIL Administration Protocol Multi-Ingred Cream/Lotion/Oil/Oint 1 applic 02/01/22 18:52 Mineral Oil/Petrolatum, White Ophth Oint 3.5 Gm OU Q4HR PRN Dry Eye(s) Ondansetron HCl 4 mg 02/01/22 00:57 Ondansetron 4 Mg/2 Ml Inj IV Q8H PRN Nausea And Vomiting Senna/Docusate Sodium 1 tab 02/02/22 22:00 02/05/22 21:10 Sennosides/Docusate Sodium 8.6/50 Mg Tab FEEDTUBE 1 tab QHS JAMIL Administration Simple Syrup 15 ml 02/02/22 08:08 Simple Syrup 15 Ml FEEDTUBE PRN PRN Hypoglycemia Simple Syrup 30 ml 02/02/22 08:08 Simple Syrup 15 Ml FEEDTUBE PRN PRN Hypoglycemia Sodium Bicarbonate 325 mg 02/02/22 08:08 Sodium Bicarbonate 325 Mg Tab FEEDTUBE PRN PRN For Clogged Feeding Tube Sodium Chloride 10 ml 02/01/22 10:00 02/05/22 21:11 Sodium Chloride 0.9% 10 Ml Flush Syringe IV 10 ml BID JAMIL Administration Sodium Chloride 10 ml 02/01/22 00:57 Sodium Chloride 0.9% 10 Ml Flush Syringe IV PRN PRN LINE FLUSH Nutrition/Malnutrition Assess - Dietary Evaluation Nutrition/Malnutrition Findings: Nutrition Notes Start: 02/01/22 17:50 Freq: Status: Active Protocol: Document 02/04/22 10:28 JACQUELINE (Rec: 02/04/22 10:40 JACQUELINE [id number]) Nutrition Notes Need for Assessment generated from: MD Order Current Diagnosis Diabetes,Respiratory Failure Other Pertinent Diagnosis DKA, UTI, AMS Current Diet TF - Glucerna 1.2 at 35ml/hr ( per MD order) Labs/Tests WBC 1.2 Na 148 A1C 11.1 Pertinent Medications Levophed gtt, Phenylephrine gtt, Vasopressin gtt, Propofol at 5.715ml/hr (provides 151 kcal) Height 5 ft 4 in Weight 46.7 kg [place] Body Weight (kg) 54.54 BMI 17.6 Weight Status Underweight Subjective/Other Information RD consulted for TF. Pt remains on vent support. Difficulty In Swallowing Skin Integrity/Comment No skin breakdown reported Minimum of two criteria No Fluid Accumulation Mild (non-severe) #1 Nutrition Diagnosis Inadequate oral intake [facility] As Evidenced by Signs and Symptoms pt NPO Is patient on ventilator? Yes Is Patient Ambulatory and/or Out of Bed No REE-([facility]-confined to bed) 1237.500 Kcal/Kg value to use for calculation 35 Approximate Energy Requirements Using 1635 kcal/Kg Calculation Used for Recommendations Kcal/kg Additional Notes Pro needs 1.2-2g/k-93g/ day Fluid needs 1ml/kcal Nutrition Intervention Nutrition Support: Glucerna 1.2 at 55ml/hr with 250ml water flush q4h until hypernatremia resolved. Decrease water flush to 100ml q4h once Na lab WNL. Kcal 1,584 Protein (gm) 79 Carbohydrates (gm) 151 Fat (gm) 79 Fluid (mL) 1,063 Fiber (gm) 21 Goal #1 TF tolerance Goal #2 TF to meet 100% energy and pro needs Goal #3 Wt maintenance and/or gain Anticipated Discharge Needs: Continue EN support if necessary; CHO-controlled diet if able to advance diet Follow-Up By: 02/06/22 Additional Comments F/U: TF tolerance, vent status , pressor support, Na lab/ water flushes
--- NOTE | 2022-02-05 10:42 | Progress Note ---
Assessment and Plan Patient is a 61-year-old female brought to the ED from a longterm due to altered mental status. Patient found to be in DKA and have cardiopulmonary S/p cardiopulmonary arrest Acute respiratory failure-pulmonology following DKA Sepsis SVT Hypotension Pancytopenia Echo 02/02/2022-EF 55 to 60%. Left ventricular diastolic function is normal. Right ventricular systolic function is mildly reduced. Left and right atria normal in size. No pericardial effusion Plan: Patient is s/p cardiopulmonary arrest however previous rhythm unknown/ suspected to be PEA Telemetry reviewed patient having brief episodes of SVT rate into 180s however trending sinus tach Will initiate amiodoraone gtt No BBs at this time due to hypotension Continue statin therapy Patient has normal EF on echo. Will consider ischemic eval once patient is stable Patient seen in conjunction with Dr. Schuster who agrees with this plan of care 30 minutes of critical care time spending care and coordination of patient - Patient Problems (1) SVT (supraventricular tachycardia) Current Visit: Yes Status: Acute (2) Acute respiratory failure Current Visit: Yes Status: Acute Qualifiers: Respiratory failure complication: hypoxia Qualified Code(s): J96.01 - Acute respiratory failure with hypoxia (3) Cardiopulmonary arrest with successful resuscitation Current Visit: Yes Status: Acute (4) Hypotension Current Visit: Yes Status: Acute (5) Pancytopenia Current Visit: Yes Status: Acute (6) Sepsis Current Visit: Yes Status: Acute Subjective Date of service: 02/05/22 Principal diagnosis: DKA, s/p cardiopulmonary arrest Interval history: Patient remains intubated and sedated Sinus tach 120s-130s with brief episodes of SVT into 180s Objective Vital Signs Temp Pulse Pulse Pulse Resp BP Pulse Ox 02/05/22 10:00 128 H 10 L 90/62 96 02/05/22 09:45 142 H 11 L 97/64 95 02/05/22 09:30 144 H 10 L 89/58 97 02/05/22 09:15 129 H 15 90/63 100 02/05/22 09:00 129 H 129 H 11 L 89/60 100 02/05/22 08:45 133 H 14 97/67 95 02/05/22 08:30 132 H 96/58 02/05/22 08:16 108 H 16 81/45 90 02/05/22 08:04 136 H 98/68 93 02/05/22 08:00 100.2 F H 129 H 16 100/70 93 02/05/22 07:45 132 H 15 97/65 92 02/05/22 07:30 133 H 13 107/69 92 02/05/22 07:15 136 H 13 98/68 92 02/05/22 07:00 140 H 17 95/68 91 02/05/22 06:45 131 H 16 98/62 91 02/05/22 06:30 130 H 14 89/70 95 02/05/22 06:16 133 H 22 111/69 92 02/05/22 06:00 131 H 22 108/69 92 02/05/22 05:45 132 H 22 105/74 92 02/05/22 05:30 133 H 17 106/74 97 02/05/22 05:18 100 F H 133 H 133 H 16 105/65 93 02/05/22 05:15 130 H 17 117/78 90 02/05/22 05:00 130 H 17 98/72 91 02/05/22 04:45 132 H 14 98/67 89 02/05/22 04:30 134 H 21 107/74 84 02/05/22 04:15 132 H 18 123/79 90 02/05/22 04:00 100 F H 121 H 21 89/55 89 02/05/22 03:45 130 H 16 96/73 87 02/05/22 03:30 130 H 17 102/81 90 02/05/22 03:18 100.0 F H 129 H 16 99/61 89 02/05/22 03:15 130 H 22 102/73 88 02/05/22 03:11 100 F H 129 H 16 100 02/05/22 03:01 100.0 F H 129 H 16 100/61 86 02/05/22 03:00 131 H 20 115/79 75 L 02/05/22 02:45 130 H 18 102/73 79 L 02/05/22 02:31 100.0 F H 130 H 15 99/57 71 L 02/05/22 02:30 131 H 16 108/76 74 L 02/05/22 02:28 100.0 F H 131 H 17 114/77 82 L 02/05/22 02:22 100 F H 02/05/22 02:15 134 H 21 114/77 75 L 02/05/22 02:01 99.0 F 131 H 14 122/84 65 L 02/05/22 02:00 131 H 17 118/76 81 L 02/05/22 01:45 128 H 14 122/84 63 L 02/05/22 01:31 99.0 F 106 H 14 86/51 65 L 02/05/22 01:30 106 H 13 86/51 02/05/22 01:27 99.9 F H 109 H 13 97/66 94 02/05/22 01:16 99.9 F H 112 H 17 96/50 95 02/05/22 01:15 114 H 21 97/66 02/05/22 01:00 127 H 21 111/81 80 L 02/05/22 00:47 126 H 18 116/61 95 02/05/22 00:46 124 H 19 130/79 02/05/22 00:40 124 H 18 90 02/05/22 00:30 125 H 24 116/82 02/05/22 00:15 124 H 16 101/72 02/05/22 00:14 99.7 F H 02/05/22 00:00 127 H 13 104/71 98 02/04/22 23:46 126 H 15 99/69 94 02/04/22 23:30 127 H 15 109/70 96 02/04/22 23:25 113 H 112/55 93 02/04/22 23:17 15 90 02/04/22 23:15 128 H 16 127/76 90 02/04/22 23:13 99.7 F H 02/04/22 23:10 123 H 02/04/22 23:00 123 H 15 127/81 91 02/04/22 22:45 124 H 14 114/80 92 02/04/22 22:30 121 H 16 121/78 92 02/04/22 22:15 122 H 13 124/79 91 02/04/22 22:00 98.1 F 120 H 14 113/74 94 02/04/22 21:45 121 H 13 111/72 93 02/04/22 21:30 121 H 17 126/78 90 02/04/22 21:15 117 H 16 119/77 91 02/04/22 21:00 117 H 14 124/79 88 02/04/22 20:45 114 H 14 127/76 90 02/04/22 20:30 110 H 12 114/78 92 02/04/22 20:15 114 H 12 110/75 88 02/04/22 20:00 98.2 F 112 H 14 115/45 91 02/04/22 19:45 111 H 9 L 101/66 84 02/04/22 19:30 105 H 10 L 104/77 89 02/04/22 19:15 106 H 10 L 101/70 93 02/04/22 19:00 98.1 F 103 H 105 H 13 112/67 94 02/04/22 18:45 108 H 10 L 102/68 02/04/22 18:30 105 H 11 L 109/71 95 02/04/22 18:15 102 H 11 L 112/75 02/04/22 18:00 105 H 10 L 115/73 02/04/22 17:45 99 H 11 L 111/70 98 02/04/22 17:30 101 H 11 L 102/69 100 02/04/22 17:15 97 H 12 121/78 100 02/04/22 17:00 93 H 13 104/71 100 02/04/22 16:45 100 H 9 L 104/71 100 02/04/22 16:30 94 H 11 L 101/64 100 02/04/22 16:20 101 H 101 H 13 100 02/04/22 16:15 101 H 12 106/71 100 02/04/22 16:00 98.2 F 98 H 11 L 103/69 99 02/04/22 15:45 100 H 13 102/71 100 02/04/22 15:31 98 H 110/74 99 02/04/22 15:30 99 H 11 L 98/70 94 02/04/22 15:15 97 H 11 L 106/72 98 02/04/22 15:00 98 H 12 110/74 02/04/22 14:45 101 H 12 106/75 02/04/22 14:31 101 H 12 78/51 71 L 02/04/22 14:15 97 H 13 106/75 02/04/22 14:00 101 H 13 84/55 76 L 02/04/22 13:45 102 H 14 94/66 100 02/04/22 13:30 104 H 16 99/65 100 02/04/22 13:15 99 H 12 98/68 95 02/04/22 13:00 100 H 12 103/70 100 02/04/22 12:45 101 H 12 98/63 94 02/04/22 12:30 101 H 12 103/70 87 02/04/22 12:15 102 H 12 95/63 96 02/04/22 12:08 101 H 101 H 12 89 02/04/22 12:00 104 H 12 81/53 98 02/04/22 11:45 105 H 12 83/54 100 02/04/22 11:34 118 H 90/58 98 02/04/22 11:31 104 H 12 103/64 97 02/04/22 11:20 101.3 F H 02/04/22 11:15 107 H 12 103/64 02/04/22 11:01 106 H 14 103/64 97 02/04/22 10:45 108 H 15 103/64 98 - Physical Examination General: Other (Intubated and sedated) HEENT: Positive: Normocephaly, Mucus Membranes Moist Neck: Positive: neck supple, trachea midline Cardiac: Positive: Regular Rhythm, Tachycardia Lungs: Positive: Ventilated Respirations Neuro: Positive: Other (Sedated, intubated and mechanically ventilated.) Abdomen: Positive: Soft, Active Bowel Sounds Skin: Negative: Rash Musculoskeletal: No Fluid Collection Extremities: Absent: edema - Labs and Meds Cardiac Enzymes 02/04/22 02/05/22 02/05/22 Range/Units 14:37 04:40 04:40 AST 87 H 84 H (5-40) units/L Lactate Dehydrogenase 879 H (91-180) units/L Coagulation 02/05/22 Range/Units 08:48 PT 14.8 (12.2-14.9) Sec. INR 1.02 (0.87-1.13) APTT 34.4 (24.2-36.6) Sec. CBC 02/04/22 02/05/22 Range/Units 20:22 04:40 WBC 3.1 L (4.5-11.0) K/mm3 RBC 4.71 (3.65-5.03) M/mm3 Hgb 7.1 L 9.6 L (10.1-14.3) gm/dl Hct 22.6 L 30.1 L D (30.3-42.9) % Plt Count 50 L (140-440) K/mm3 Comprehensive Metabolic Panel 02/04/22 02/05/22 Range/Units 14:37 04:40 Sodium 148 H (137-145) mmol/L Potassium 3.9 (3.6-5.0) mmol/L Chloride 113.2 H (98-107) mmol/L Carbon Dioxide 25 (22-30) mmol/L BUN 21 H (7-17) mg/dL Creatinine 0.8 (0.6-1.2) mg/dL Glucose 155 H (65-100) mg/dL Calcium 8.6 (8.4-10.2) mg/dL Direct Bilirubin < 0.2 (0-0.2) mg/dL Indirect Bilirubin 0.1 mg/dL AST 87 H 84 H (5-40) units/L ALT 75 H 67 H (7-56) units/L Alkaline Phosphatase 137 H 152 H (35-129) units/L Total Protein 4.6 L 5.0 L (6.3-8.2) g/dL Albumin 1.7 L 1.8 L (3.9-5) g/dL - Imaging and Cardiology Echo: report reviewed - Telemetry EKG Rhythm: Sinus Tachycardia - EKG Sinus rhythms and dysrhythmias: sinus tachycardia Myocardial infarction: septal [place] (old age or ind
--- NOTE | 2022-02-05 11:14 | Hem/Onc Consultation ---
History of Present Illness - Reason for Consult Consult date: 02/05/22 Pancytopenia - History of Present Illness Heme Consult Note Seen via [employer] CPT 27128 Dx pancytopenia This is a 61yo female who presented to [facility] ED from [facility] with AMS and hypoglycemia. Past medical history of diabetes mellitus, dementia (possibly Wernickes per daughter), hyperlipidemia, and hypertension. In the ED patient was found to be tachycardic, tachypneic and lab work showed hyperkalemia, hyperchloremia, high anion gap metabolic acidosis with leukocytosis. UA showed pyuria. Cardiac arrest on 02/01/22, now remains intubated and on multiple pressors. Has been spiking intermittent fevers on b road-spectrum antibiotics: Cefepime and vancomycin. Infectious diseases following. Chest x-ray shows diffuse bilateral airspace opacities. DVT scan negative. Completed bronchoscopy with washing of the right middle lobe on 02/04/22. Hematology was consulted for pancytopenia. Patient examined at bedside, intubated and sedated. Pressors discontinued overnight, high mechanical vent requirements. Periodic SVTs now on amiodarone drip. Blood cultures negative so far. No bleeding noted or reported. Now with bilateral pneumonia. DATA REVIEWED BELOW IMP: Pancytopenia likely secondary to septic shock, cardiac arrest S/p PEA cardiac arrest 02/01 Metabolic acidosis, DKA Thrombocytopenia likely related to sepsis, doubt HIT, no reports of Heparin/Lovenox use Doubt heme malignancy, WBC differential indicative of underlying liver dysfunction and sepsis Rapid HIV negative PLAN: Labs to include SPEP, retic, LDH, CBC in AM Supportive measures Transfuse 1 unit pRBC whenever hct <23 Transfuse 1 dose of plts whenever plt count <20 Appreciate consultants recommendations Laboratory Last Values WBC 3.1 K/mm3 (4.5-11.0) L 02/05/22 04:40 Hgb 9.6 gm/dl (10.1-14.3) L 02/05/22 04:40 Hct 30.1 % (30.3-42.9) L D 02/05/22 04:40 MCV 64 fl (79-97) L 02/05/22 04:40 Plt Count 50 K/mm3 (140-440) L 02/05/22 04:40 Seg Neuts % (Manual) 76.0 % (40.0-70.0) H 02/03/22 04:00 Lymphocytes % (Manual) 2.0 % (13.4-35.0) L 02/03/22 04:00 Nucleated RBC % 4.0 % (0.0-0.9) H 02/03/22 04:00 Lymphocytes # (Manual) 0.1 K/mm3 (1.2-5.4) L 02/03/22 04:00 PT 14.8 Sec. (12.2-14.9) 02/05/22 08:48 INR 1.02 (0.87-1.13) 02/05/22 08:48 APTT 34.4 Sec. (24.2-36.6) 02/05/22 08:48 Fibrinogen 795 mg/dl (211-480) H 02/05/22 08:48 Creatinine 0.8 mg/dL (0.6-1.2) 02/05/22 04:40 Direct Bilirubin < 0.2 mg/dL (0-0.2) 02/04/22 14:37 Indirect Bilirubin 0.1 mg/dL 02/04/22 14:37 AST 84 units/L (5-40) H 02/05/22 04:40 ALT 67 units/L (7-56) H 02/05/22 04:40 Alkaline Phosphatase 152 units/L (35-129) H 02/05/22 04:40 Lactate Dehydrogenase 879 units/L (91-180) H 02/05/22 04:40 Vancomycin Trough 28.6 ug/mL (5.0-20.0) H 02/05/22 Unknown Coronavirus (PCR) Negative (Negative) 02/02/22 10:44 SARS-CoV-2 (PCR) Negative (Negative) 02/01/22 08:50 HIV 1&2 Antibody Rapid Non react (Non React) 02/04/22 14:37 HIV P24 Antigen Non react (Non React) 02/04/22 14:37 Blood Type A POSITIVE 02/04/22 20:22 Antibody Screen Negative 02/04/22 20:22 Crossmatch See Detail 02/04/22 20:22 Past History Past Medical History: other (unable to obtain) Past Surgical History: Other (unable to obtain) Social history: other (unable to obtain) Family history: other (unable to obtain) Medications and Allergies Allergies Allergy/AdvReac Type Severity Reaction Status Date / Time No Known Allergies Allergy Verified 01/31/22 17:55 Home Medications Medication Instructions Recorded Confirmed Last Taken Type Ergocalciferol [Vitamin D2] 1 cap PO QWEEK 02/02/22 02/02/22 Unknown History Famotidine [Pepcid] 20 mg PO DAILY 02/02/22 02/02/22 Unknown History Insulin Glargine [Lantus VIAL] 5 unit SUB-Q BID 02/02/22 02/02/22 Unknown History Loratadine [Claritin] 10 mg PO DAILY 02/02/22 02/02/22 Unknown History Mirtazapine [Remeron] 15 mg PO HS 02/02/22 02/02/22 Unknown History Rosuvastatin Calcium [Crestor] 10 mg PO HS 02/02/22 02/02/22 Unknown History carvediloL [Coreg] 3.125 mg PO BID 02/02/22 02/02/22 Unknown History Active Meds: Active Medications Acetaminophen (Acetaminophen 325 Mg Tab) 650 mg PO Q4H PRN PRN Reason: Pain MILD(1-3)/Fever >100.5/ROSADO Last Admin: 02/04/22 11:58 Dose: 650 mg Albuterol (Albuterol 2.5 Mg/3 Ml Nebu) 2.5 mg IH Q3HRT PRN PRN Reason: Shortness Of Breath Lipase/Protease/Amylase (Lipase 10,500/Protease 25,000/Amylase 43,750 (Units) Dr Avelar) 1 each FEEDTUBE PRN PRN PRN Reason: For Clogged Feeding Tube Atorvastatin Calcium (Atorvastatin 20 Mg Tab) 20 mg FEEDTUBE QHS [facility] Last Admin: 02/04/22 20:59 Dose: 20 mg Dextrose (Dextrose 50% In Water (25gm) 50 Ml Syringe) 50 ml IV Q30MIN PRN; Protocol PRN Reason: Hypoglycemia Last Admin: 02/02/22 09:03 Dose: 50 ml Famotidine (Famotidine 20 Mg Tab) 20 mg FEEDTUBE BID [facility] Last Admin: 02/05/22 09:31 Dose: 20 mg Fentanyl (Fentanyl 100 Mcg/2 Ml Inj) 50 mcg IV Q10MIN PRN PRN Reason: ANALGESIA Last Admin: 02/03/22 09:43 Dose: 50 mcg Hydrophilic Ointment (Lip Therapy Vaseline) 1 applic TP Q2HR PRN PRN Reason: Dry Lips NORepinephrine/NS 8 MG-250 ML (Norepinephrine/Ns 8 Mg-250 Ml (Double Conc)) 8 mg in 250 mls @ 3.75 mls/hr IV TITRATE JAMIL; Protocol Last Titration: 02/05/22 01:40 Dose: 0 mcg/min, 0 mls/hr Propofol (Diprivan 10 Mg/Ml) 1,000 mg in 100 mls @ 1.429 mls/hr IV TITR JAMIL; Protocol Last Titration: 02/04/22 15:07 Dose: 0 mcg/kg/min, 0 mls/hr Fentanyl Citrate (Fentanyl Drip Premix) 2,000 mcg in 100 mls @ 2.381 mls/hr IV TITR JAMIL; Protocol Last Admin: 02/05/22 08:05 Dose: 4 mcg/kg/hr, 9.525 mls/hr Vancomycin HCl 750 mg/ Sodium (Chloride) 265 mls @ 166.667 mls/hr IV Q12H JAMIL Last Admin: 02/05/22 00:18 Dose: 167 mls/hr Phenylephrine HCl 100 mg/ (Sodium Chloride) 100 mls @ 3 mls/hr IV TITR JAMIL; Protocol Last Titration: 02/04/22 14:50 Dose: 0 mcg/min, 0 mls/hr Sodium Chloride (Nacl 0.9% 500 Ml) 500 mls @ 5 mls/hr IV DIRECT JAMIL Last Admin: 02/04/22 04:04 Dose: 5 mls/hr Vasopressin 20 unit/ Sodium (Chloride) 101 mls @ 9.09 mls/hr IV TITR JAMIL; Protocol Last Titration: 02/05/22 01:16 Dose: 0 units/min, 0 mls/hr Meropenem/Sodium Chloride (Merrem/Ns 1 Gram/100 Ml) 1 gram in 100 mls @ 100 mls/hr IV Q8H JAMIL; Protocol Last Admin: 02/05/22 04:57 Dose: 100 mls/hr Amiodarone HCl 900 mg/ (Dextrose) 500 mls @ 33.333 mls/hr IV DIRECT JAMIL; Protocol Insulin Glargine (Insulin Glargine 100 Units/Ml) 20 units SUB-Q QAMDIAB JAMIL Last Admin: 02/05/22 08:04 Dose: 20 units Insulin Human Regular (Insulin Regular, Human 100 Units/1 Ml) 0 units SUB-Q Q6H [facility]; Protocol Last Admin: 02/05/22 04:59 Dose: 3 units Multi-Ingred Cream/Lotion/Oil/Oint (Mineral Oil/Petrolatum, White Ophth Oint 3.5 Gm) 1 applic OU Q4HR PRN PRN Reason: Dry Eye(s) Ondansetron HCl (Ondansetron 4 Mg/2 Ml Inj) 4 mg IV Q8H PRN PRN Reason: Nausea And Vomiting Senna/Docusate Sodium (Sennosides/Docusate Sodium 8.6/50 Mg Tab) 1 tab FEEDTUBE QHS [facility] Last Admin: 02/04/22 20:59 Dose: 1 tab Simple Syrup (Simple Syrup 15 Ml) 15 ml FEEDTUBE PRN PRN PRN Reason: Hypoglycemia Simple Syrup (Simple Syrup 15 Ml) 30 ml FEEDTUBE PRN PRN PRN Reason: Hypoglycemia Sodium Bicarbonate (Sodium Bicarbonate 325 Mg Tab) 325 mg FEEDTUBE PRN PRN PRN Reason: For Clogged Feeding Tube Sodium Chloride (Sodium Chloride 0.9% 10 Ml Flush Syringe) 10 ml IV BID [facility] Last Admin: 02/05/22 09:32 Dose: 10 ml Sodium Chloride (Sodium Chloride 0.9% 10 Ml Flush Syringe) 10 ml IV PRN PRN PRN Reason: LINE FLUSH Exam - Constitutional Vitals: Last Vital Signs Temp 100.2 F H 02/05/22 08:00 Pulse 128 H 02/05/22 10:00 Resp 10 L 02/05/22 10:00 BP 90/62 02/05/22 10:00 Pulse Ox 96 02/05/22 10:00 Results - Labs lab Results: Laboratory Results - last 24 hr 02/04/22 02/04/22 02/04/22 09:15 11:17 14:37 WBC RBC Hgb Hct MCV MCH MCHC RDW Plt Count PT INR APTT Fibrinogen ABG pH ABG pCO2 ABG pO2 ABG HCO3 ABG O2 Saturation ABG O2 Content ABG Base Excess ABG Hemoglobin ABG Carboxyhemoglobin ABG Methemoglobin Oxyhemoglobin FiO2 Sodium Potassium Chloride Carbon Dioxide Anion Gap BUN Creatinine Estimated GFR BUN/Creatinine Ratio Glucose POC Glucose 166 H Lactic Acid Calcium Magnesium Total Bilirubin 0.30 Direct Bilirubin < 0.2 Indirect Bilirubin 0.1 AST 87 H ALT 75 H Alkaline Phosphatase 137 H Lactate Dehydrogenase Total Protein 4.6 L Albumin 1.7 L Albumin/Globulin Ratio 0.6 Urine Color Yellow Urine Turbidity Cloudy Urine pH 6.0 Ur Specific [place] 1.025 Urine Protein >500 Urine Glucose (UA) Negative Urine Ketones Negative Urine Blood Large A Urine Nitrite Negative Urine Bilirubin Negative Urine Urobilinogen < 2.0 Ur Leukocyte Esterase Negative Urine WBC (Auto) 12.0 H Urine RBC (Auto) 107.0 U Epithel Cells (Auto) 1.0 Urine Bacteria (Auto) 1+ Urine Mucus Few Urine Yeast (Budding) 2+ Vancomycin Trough HIV 1&2 Antibody Rapid HIV P24 Antigen Blood Type Antibody Screen Crossmatch 02/04/22 02/04/22 02/04/22 14:37 17:04 20:15 WBC RBC Hgb Hct MCV MCH MCHC RDW Plt Count PT INR APTT Fibrinogen ABG pH 7.292 L ABG pCO2 51.3 ABG pO2 40.3 L ABG HCO3 24.2 ABG O2 Saturation 72.1 L ABG O2 Content 6.9 ABG Base Excess -2.2 L ABG Hemoglobin 7.0 L ABG Carboxyhemoglobin 1.6 ABG Methemoglobin 0.6 Oxyhemoglobin 70.5 L FiO2 60 Sodium Potassium Chloride Carbon Dioxide Anion Gap BUN Creatinine Estimated GFR BUN/Creatinine Ratio Glucose POC Glucose 109 H Lactic Acid Calcium Magnesium Total Bilirubin Direct Bilirubin Indirect Bilirubin AST ALT Alkaline Phosphatase Lactate Dehydrogenase Total Protein Albumin Albumin/Globulin Ratio Urine Color Urine Turbidity Urine pH Ur Specific [place] Urine Protein Urine Glucose (UA) Urine Ketones Urine Blood Urine Nitrite Urine Bilirubin Urine Urobilinogen Ur Leukocyte Esterase Urine WBC (Auto) Urine RBC (Auto) U Epithel Cells (Auto) Urine Bacteria (Auto) Urine Mucus Urine Yeast (Budding) Vancomycin Trough HIV 1&2 Antibody Rapid Non react HIV P24 Antigen Non react Blood Type Antibody Screen Crossmatch 02/04/22 02/04/22 02/04/22 20:22 20:22 20:22 WBC RBC Hgb 7.1 L Hct 22.6 L MCV MCH MCHC RDW Plt Count PT INR APTT Fibrinogen ABG pH ABG pCO2 ABG pO2 ABG HCO3 ABG O2 Saturation ABG O2 Content ABG Base Excess ABG Hemoglobin ABG Carboxyhemoglobin ABG Methemoglobin Oxyhemoglobin FiO2 Sodium Potassium Chloride Carbon Dioxide Anion Gap BUN Creatinine Estimated GFR BUN/Creatinine Ratio Glucose POC Glucose Lactic Acid 3.00 H* Calcium Magnesium Total Bilirubin Direct Bilirubin Indirect Bilirubin AST ALT Alkaline Phosphatase Lactate Dehydrogenase Total Protein Albumin Albumin/Globulin Ratio Urine Color Urine Turbidity Urine pH Ur Specific [place] Urine Protein Urine Glucose (UA) Urine Ketones Urine Blood Urine Nitrite Urine Bilirubin Urine Urobilinogen Ur Leukocyte Esterase Urine WBC (Auto) Urine RBC (Auto) U Epithel Cells (Auto) Urine Bacteria (Auto) Urine Mucus Urine Yeast (Budding) Vancomycin Trough HIV 1&2 Antibody Rapid HIV P24 Antigen Blood Type A POSITIVE Antibody Screen Negative Crossmatch See Detail 02/04/22 02/05/22 02/05/22 23:03 04:40 04:40 WBC 3.1 L RBC 4.71 Hgb 9.6 L Hct 30.1 L D MCV 64 L MCH 20 L MCHC 32 RDW 26.9 H Plt Count 50 L PT INR APTT Fibrinogen ABG pH ABG pCO2 ABG pO2 ABG HCO3 ABG O2 Saturation ABG O2 Content ABG Base Excess ABG Hemoglobin ABG Carboxyhemoglobin ABG Methemoglobin Oxyhemoglobin FiO2 Sodium 148 H Potassium 3.9 Chloride 113.2 H Carbon Dioxide 25 Anion Gap 14 BUN 21 H Creatinine 0.8 Estimated GFR > 60 BUN/Creatinine Ratio 26 Glucose 155 H POC Glucose 171 H Lactic Acid Calcium 8.6 Magnesium Total Bilirubin 0.50 Direct Bilirubin Indirect Bilirubin AST 84 H ALT 67 H Alkaline Phosphatase 152 H Lactate Dehydrogenase Total Protein 5.0 L Albumin 1.8 L Albumin/Globulin Ratio 0.6 Urine Color Urine Turbidity Urine pH Ur Specific [place] Urine Protein Urine Glucose (UA) Urine Ketones Urine Blood Urine Nitrite Urine Bilirubin Urine Urobilinogen Ur Leukocyte Esterase Urine WBC (Auto) Urine RBC (Auto) U Epithel Cells (Auto) Urine Bacteria (Auto) Urine Mucus Urine Yeast (Budding) Vancomycin Trough HIV 1&2 Antibody Rapid HIV P24 Antigen Blood Type Antibody Screen Crossmatch 02/05/22 02/05/22 02/05/22 04:40 04:43 08:10 WBC RBC Hgb Hct MCV MCH MCHC RDW Plt Count PT INR APTT Fibrinogen ABG pH 7.380 ABG pCO2 48.1 ABG pO2 57.1 L ABG HCO3 27.8 H ABG O2 Saturation 90.8 L ABG O2 Content 10.7 ABG Base Excess 2.3 ABG Hemoglobin 8.5 L ABG Carboxyhemoglobin 1.6 ABG Methemoglobin 0.5 Oxyhemoglobin 88.9 L FiO2 100 Sodium Potassium Chloride Carbon Dioxide Anion Gap BUN Creatinine Estimated GFR BUN/Creatinine Ratio Glucose POC Glucose 156 H Lactic Acid Calcium Magnesium Total Bilirubin Direct Bilirubin Indirect Bilirubin AST ALT Alkaline Phosphatase Lactate Dehydrogenase 879 H Total Protein Albumin Albumin/Globulin Ratio Urine Color Urine Turbidity Urine pH Ur Specific [place] Urine Protein Urine Glucose (UA) Urine Ketones Urine Blood Urine Nitrite Urine Bilirubin Urine Urobilinogen Ur Leukocyte Esterase Urine WBC (Auto) Urine RBC (Auto) U Epithel Cells (Auto) Urine Bacteria (Auto) Urine Mucus Urine Yeast (Budding) Vancomycin Trough HIV 1&2 Antibody Rapid HIV P24 Antigen Blood Type Antibody Screen Crossmatch 02/05/22 02/05/22 02/05/22 08:48 08:48 Unknown WBC RBC Hgb Hct MCV MCH MCHC RDW Plt Count PT 14.8 INR 1.02 APTT 34.4 Fibrinogen 795 H ABG pH ABG pCO2 ABG pO2 ABG HCO3 ABG O2 Saturation ABG O2 Content ABG Base Excess ABG Hemoglobin ABG Carboxyhemoglobin ABG Methemoglobin Oxyhemoglobin FiO2 Sodium Potassium Chloride Carbon Dioxide Anion Gap BUN Creatinine Estimated GFR BUN/Creatinine Ratio Glucose POC Glucose Lactic Acid 2.90 H* Calcium Magnesium Total Bilirubin Direct Bilirubin Indirect Bilirubin AST ALT Alkaline Phosphatase Lactate Dehydrogenase Total Protein Albumin Albumin/Globulin Ratio Urine Color Urine Turbidity Urine pH Ur Specific [place] Urine Protein Urine Glucose (UA) Urine Ketones Urine Blood Urine Nitrite Urine Bilirubin Urine Urobilinogen Ur Leukocyte Esterase Urine WBC (Auto) Urine RBC (Auto) U Epithel Cells (Auto) Urine Bacteria (Auto) Urine Mucus Urine Yeast (Budding) Vancomycin Trough 28.6 H HIV 1&2 Antibody Rapid HIV P24 Antigen Blood Type Antibody Screen Crossmatch 02/05/22 Unknown WBC RBC Hgb Hct MCV MCH MCHC RDW Plt Count PT INR APTT Fibrinogen ABG pH ABG pCO2 ABG pO2 ABG HCO3 ABG O2 Saturation ABG O2 Content ABG Base Excess ABG Hemoglobin ABG Carboxyhemoglobin ABG Methemoglobin Oxyhemoglobin FiO2 Sodium Potassium Chloride Carbon Dioxide Anion Gap BUN Creatinine Estimated GFR BUN/Creatinine Ratio Glucose POC Glucose Lactic Acid Calcium Magnesium 2.00 Total Bilirubin Direct Bilirubin Indirect Bilirubin AST ALT Alkaline Phosphatase Lactate Dehydrogenase Total Protein Albumin Albumin/Globulin Ratio Urine Color Urine Turbidity Urine pH Ur Specific [place] Urine Protein Urine Glucose (UA) Urine Ketones Urine Blood Urine Nitrite Urine Bilirubin Urine Urobilinogen Ur Leukocyte Esterase Urine WBC (Auto) Urine RBC (Auto) U Epithel Cells (Auto) Urine Bacteria (Auto) Urine Mucus Urine Yeast (Budding) Vancomycin Trough HIV 1&2 Antibody Rapid HIV P24 Antigen Blood Type Antibody Screen Crossmatch
[2022-02-05] MEDS: AMIODARONE 900 MG in DEXTROSE 5% IN WATER 482 ML IV SCH (11:15)
--- NOTE | 2022-02-05 11:21 | Progress Note ---
Assessment and Plan 02/05/22: Follow up bronch results. Appreciate ID assistance and changing of abx therapy. COntinue high PEEP and small TV. Ok with permissive hypercapnea as long as pH is >7.2. Follow up heme assessment. Has Kleib in tracheal aspirate. Follow up blood cultures. Will meet with family tomorrow. Overall prognosis is guarded to poor. 02/04/22: Repeat cultures this am while she is febrile. Bronched this am and wash taken from right middle lobe. Worsening CXR is likely related to the volume given yesterday. Will consult heme today as her numbers continue to worsen. Gram Negative Rods found in Tracheal aspirate from 02/01. Follow up speciation of this as well as bronch results. Will send for fungal cultures as well. Needs art line. Stop bob and change to vasopressin. Overall prognosis is very very guarded to poor. 02/03/22: Needs repeat culture with next fever spike. concern now that she is still spiking temps on broad spec abx. may need to broaden even more with antifungal but will discuss tomorrow with pharmacy tomorrow. pH is better but worsening hypoxemia. CXR shows bilateral infiltrates. Will consider bronch tomorrow for washing to be sent for culture. Consider Heme consult tomorrow. Echo was stable. Guarded to poor prognosis. Sugar is better today. 02/02/22: Wean Vasopressors as tolerated for maps >65. Check echo. Stop insulin therapy. Q1hour fSbs and cover with sliding scale. Repeat ABG later today to follow pH. May need some diamox later. Patient now neutropenic and thrombocytopenic, repeated CBC and still the same. may need to consider heme consult. For now continue broad spec abx therapy. prognosis is guarded to poor. 2 amps of NaBicarb pushed Started on Insulin drip Central line placement secondary to lack of access Aggressive volume resuscitation q1 hour fsbs and q6 hour BMPs for the next 36-48 hours Supplemental O2 Not a candidate for bipap currently given mental state so if her respiratory status deteriorates would need intubation. Guarded prognosis. Spoke with daughter briefly at bedside. She did not get off her cell phone so not able to have a full conversation with her about her mother. CCT 31 minutes. Subjective Date of service: 02/05/22 Principal diagnosis: DKA, s/p cardiopulmonary arrest Interval history: CXR worse today. Worsening hypoxemia. off pressors but bp is marginal. Still on 12 of PEEP. Sedation of Fent at 4. had a run of SVT this am. Objective Vital Signs - 12hr 02/04/22 02/04/22 02/04/22 23:25 23:30 23:46 Temperature Pulse Rate 113 H 127 H 126 H Pulse Rate [ From Monitor] Pulse Rate [ None] Respiratory 15 15 Rate Blood Pressure 112/55 109/70 99/69 O2 Sat by Pulse 93 96 94 Oximetry 02/05/22 02/05/22 02/05/22 00:00 00:14 00:15 Temperature 99.7 F H Pulse Rate 127 H 124 H Pulse Rate [ From Monitor] Pulse Rate [ None] Respiratory 13 16 Rate Blood Pressure 104/71 101/72 O2 Sat by Pulse 98 Oximetry 02/05/22 02/05/22 02/05/22 00:30 00:40 00:46 Temperature Pulse Rate 125 H 124 H 124 H Pulse Rate [ From Monitor] Pulse Rate [ None] Respiratory 24 18 19 Rate Blood Pressure 116/82 130/79 O2 Sat by Pulse 90 Oximetry 02/05/22 02/05/22 02/05/22 00:47 01:00 01:15 Temperature Pulse Rate 127 H 114 H Pulse Rate [ From Monitor] Pulse Rate [ 126 H None] Respiratory 18 21 21 Rate Blood Pressure 116/61 111/81 97/66 O2 Sat by Pulse 95 80 L Oximetry 02/05/22 02/05/22 02/05/22 01:16 01:27 01:30 Temperature 99.9 F H 99.9 F H Pulse Rate 112 H 109 H 106 H Pulse Rate [ From Monitor] Pulse Rate [ None] Respiratory 17 13 13 Rate Blood Pressure 96/50 97/66 86/51 O2 Sat by Pulse 95 94 Oximetry 02/05/22 02/05/22 02/05/22 01:31 01:45 02:00 Temperature 99.0 F Pulse Rate 106 H 128 H 131 H Pulse Rate [ From Monitor] Pulse Rate [ None] Respiratory 14 14 17 Rate Blood Pressure 86/51 122/84 118/76 O2 Sat by Pulse 65 L 63 L 81 L Oximetry 02/05/22 02/05/22 02/05/22 02:01 02:15 02:22 Temperature 99.0 F 100 F H Pulse Rate 131 H 134 H Pulse Rate [ From Monitor] Pulse Rate [ None] Respiratory 14 21 Rate Blood Pressure 122/84 114/77 O2 Sat by Pulse 65 L 75 L Oximetry 02/05/22 02/05/22 02/05/22 02:28 02:30 02:31 Temperature 100.0 F H 100.0 F H Pulse Rate 131 H 131 H 130 H Pulse Rate [ From Monitor] Pulse Rate [ None] Respiratory 17 16 15 Rate Blood Pressure 114/77 108/76 99/57 O2 Sat by Pulse 82 L 74 L 71 L Oximetry 02/05/22 02/05/22 02/05/22 02:45 03:00 03:01 Temperature 100.0 F H Pulse Rate 130 H 131 H 129 H Pulse Rate [ From Monitor] Pulse Rate [ None] Respiratory 18 20 16 Rate Blood Pressure 102/73 115/79 100/61 O2 Sat by Pulse 79 L 75 L 86 Oximetry 02/05/22 02/05/22 02/05/22 03:11 03:15 03:18 Temperature 100 F H 100.0 F H Pulse Rate 129 H 130 H 129 H Pulse Rate [ From Monitor] Pulse Rate [ None] Respiratory 16 22 16 Rate Blood Pressure 102/73 99/61 O2 Sat by Pulse 100 88 89 Oximetry 02/05/22 02/05/22 02/05/22 03:30 03:45 04:00 Temperature 100 F H Pulse Rate 130 H 130 H 121 H Pulse Rate [ From Monitor] Pulse Rate [ None] Respiratory 17 16 21 Rate Blood Pressure 102/81 96/73 89/55 O2 Sat by Pulse 90 87 89 Oximetry 02/05/22 02/05/22 02/05/22 04:15 04:30 04:45 Temperature Pulse Rate 132 H 134 H 132 H Pulse Rate [ From Monitor] Pulse Rate [ None] Respiratory 18 21 14 Rate Blood Pressure 123/79 107/74 98/67 O2 Sat by Pulse 90 84 89 Oximetry 02/05/22 02/05/22 02/05/22 05:00 05:15 05:18 Temperature 100 F H Pulse Rate 130 H 130 H 133 H Pulse Rate [ From Monitor] Pulse Rate [ 133 H None] Respiratory 17 17 16 Rate Blood Pressure 98/72 117/78 105/65 O2 Sat by Pulse 91 90 93 Oximetry 02/05/22 02/05/22 02/05/22 05:30 05:45 06:00 Temperature Pulse Rate 133 H 132 H 131 H Pulse Rate [ From Monitor] Pulse Rate [ None] Respiratory 17 22 22 Rate Blood Pressure 106/74 105/74 108/69 O2 Sat by Pulse 97 92 92 Oximetry 02/05/22 02/05/22 02/05/22 06:16 06:30 06:45 Temperature Pulse Rate 133 H 130 H 131 H Pulse Rate [ From Monitor] Pulse Rate [ None] Respiratory 22 14 16 Rate Blood Pressure 111/69 89/70 98/62 O2 Sat by Pulse 92 95 91 Oximetry 02/05/22 02/05/22 02/05/22 07:00 07:15 07:30 Temperature Pulse Rate 140 H 136 H 133 H Pulse Rate [ From Monitor] Pulse Rate [ None] Respiratory 17 13 13 Rate Blood Pressure 95/68 98/68 107/69 O2 Sat by Pulse 91 92 92 Oximetry 02/05/22 02/05/22 02/05/22 07:45 08:00 08:04 Temperature 100.2 F H Pulse Rate 132 H 129 H 136 H Pulse Rate [ From Monitor] Pulse Rate [ None] Respiratory 15 16 Rate Blood Pressure 97/65 100/70 98/68 O2 Sat by Pulse 92 93 93 Oximetry 02/05/22 02/05/22 02/05/22 08:16 08:30 08:45 Temperature Pulse Rate 108 H 132 H 133 H Pulse Rate [ From Monitor] Pulse Rate [ None] Respiratory 16 14 Rate Blood Pressure 81/45 96/58 97/67 O2 Sat by Pulse 90 95 Oximetry 02/05/22 02/05/22 02/05/22 09:00 09:15 09:30 Temperature Pulse Rate 129 H 129 H 144 H Pulse Rate [ 129 H From Monitor] Pulse Rate [ None] Respiratory 11 L 15 10 L Rate Blood Pressure 89/60 90/63 89/58 O2 Sat by Pulse 100 100 97 Oximetry 02/05/22 02/05/22 09:45 10:00 Temperature Pulse Rate 142 H 128 H Pulse Rate [ From Monitor] Pulse Rate [ None] Respiratory 11 L 10 L Rate Blood Pressure 97/64 90/62 O2 Sat by Pulse 95 96 Oximetry CBC and BMP: 02/05/22 04:40 02/05/22 04:40 ABG, PT/INR, D-dimer: ABG ABG pH 7.380 pH Units (7.350-7.450) 02/05/22 08:10 POC ABG pCO2 37.3 mmHg (32.0-48.0) 02/02/22 04:49 ABG pCO2 48.1 mm Hg 02/05/22 08:10 POC ABG pO2 79.9 mmHg (83-108) L 02/02/22 04:49 ABG pO2 57.1 mm Hg (80.0-90.0) L 02/05/22 08:10 POC ABG HCO3 30.3 02/02/22 04:49 ABG O2 Saturation 90.8 % (95.0-99.0) L 02/05/22 08:10 PT/INR, D-dimer PT 14.8 Sec. (12.2-14.9) 02/05/22 08:48 INR 1.02 (0.87-1.13) 02/05/22 08:48 Abnormal lab findings: Abnormal Labs 01/31/22 01/31/22 01/31/22 20:33 20:33 20:33 WBC 12.5 H RBC 6.16 H Hgb Hct MCV 61 L MCH 18 L RDW 19.6 H Plt Count Seg Neuts % (Manual) 98.0 H Lymphocytes % (Manual) 0 L Nucleated RBC % 2.0 H Seg Neutrophils # Man 12.3 H Lymphocytes # (Manual) 0.0 L Fibrinogen ABG pH POC ABG pO2 ABG pO2 ABG HCO3 ABG O2 Saturation ABG Base Excess ABG Hemoglobin Oxyhemoglobin Carboxyhemoglobin Sodium Potassium 5.6 H Chloride 110.1 H Carbon Dioxide 9 L* BUN Creatinine Glucose 254 H POC Glucose Hemoglobin A1c Lactic Acid 2.50 H* Calcium 10.8 H Phosphorus Magnesium Direct Bilirubin AST ALT Alkaline Phosphatase Lactate Dehydrogenase Total Protein Albumin Ur Specific [place] Urine Blood Urine WBC (Auto) Vancomycin Trough Crossmatch 01/31/22 02/01/22 02/01/22 22:49 07:34 08:22 WBC RBC Hgb Hct MCV MCH RDW Plt Count Seg Neuts % (Manual) Lymphocytes % (Manual) Nucleated RBC % Seg Neutrophils # Man Lymphocytes # (Manual) Fibrinogen ABG pH POC ABG pO2 ABG pO2 ABG HCO3 ABG O2 Saturation ABG Base Excess ABG Hemoglobin Oxyhemoglobin Carboxyhemoglobin Sodium Potassium 5.8 H Chloride 115.8 H Carbon Dioxide 3 L* BUN Creatinine Glucose 400 H POC Glucose 368 H Hemoglobin A1c Lactic Acid Calcium Phosphorus Magnesium Direct Bilirubin AST ALT Alkaline Phosphatase Lactate Dehydrogenase Total Protein Albumin Ur Specific [place] 1.035 H Urine Blood Small A Urine WBC (Auto) 142.0 H Vancomycin Trough Crossmatch 02/01/22 02/01/22 02/01/22 09:42 12:01 12:54 WBC RBC Hgb Hct MCV MCH RDW Plt Count Seg Neuts % (Manual) Lymphocytes % (Manual) Nucleated RBC % Seg Neutrophils # Man Lymphocytes # (Manual) Fibrinogen ABG pH 7.044 L* POC ABG pO2 ABG pO2 121.0 H ABG HCO3 3.7 L ABG O2 Saturation ABG Base Excess -24.8 L ABG Hemoglobin 9.3 L Oxyhemoglobin Carboxyhemoglobin Sodium Potassium Chloride Carbon Dioxide BUN Creatinine Glucose POC Glucose 382 H Hemoglobin A1c Lactic Acid Calcium Phosphorus 1.40 L Magnesium 1.30 L Direct Bilirubin AST ALT Alkaline Phosphatase Lactate Dehydrogenase Total Protein Albumin Ur Specific [place] Urine Blood Urine WBC (Auto) Vancomycin Trough Crossmatch 02/01/22 02/01/22 02/01/22 12:54 12:54 13:27 WBC RBC Hgb Hct MCV MCH RDW Plt Count Seg Neuts % (Manual) Lymphocytes % (Manual) Nucleated RBC % Seg Neutrophils # Man Lymphocytes # (Manual) Fibrinogen ABG pH POC ABG pO2 ABG pO2 ABG HCO3 ABG O2 Saturation ABG Base Excess ABG Hemoglobin Oxyhemoglobin Carboxyhemoglobin Sodium 148 H D Potassium 3.0 L D Chloride 117.3 H Carbon Dioxide 9 L* BUN Creatinine Glucose 439 H POC Glucose 342 H Hemoglobin A1c 11.1 H Lactic Acid Calcium 7.7 L Phosphorus Magnesium Direct Bilirubin AST ALT Alkaline Phosphatase Lactate Dehydrogenase Total Protein Albumin Ur Specific [place] Urine Blood Urine WBC (Auto) Vancomycin Trough Crossmatch 02/01/22 02/01/22 02/01/22 14:48 15:48 16:54 WBC RBC Hgb Hct MCV MCH RDW Plt Count Seg Neuts % (Manual) Lymphocytes % (Manual) Nucleated RBC % Seg Neutrophils # Man Lymphocytes # (Manual) Fibrinogen ABG pH POC ABG pO2 ABG pO2 ABG HCO3 ABG O2 Saturation ABG Base Excess ABG Hemoglobin Oxyhemoglobin Carboxyhemoglobin Sodium Potassium Chloride Carbon Dioxide BUN Creatinine Glucose POC Glucose 394 H 412 H 352 H Hemoglobin A1c Lactic Acid Calcium Phosphorus Magnesium Direct Bilirubin AST ALT Alkaline Phosphatase Lactate Dehydrogenase Total Protein Albumin Ur Specific [place] Urine Blood Urine WBC (Auto) Vancomycin Trough Crossmatch 02/01/22 02/01/22 02/01/22 18:23 18:53 19:26 WBC RBC Hgb Hct MCV MCH RDW Plt Count Seg Neuts % (Manual) Lymphocytes % (Manual) Nucleated RBC % Seg Neutrophils # Man Lymphocytes # (Manual) Fibrinogen ABG pH 7.331 L POC ABG pO2 ABG pO2 121.4 H ABG HCO3 ABG O2 Saturation ABG Base Excess -4.9 L ABG Hemoglobin 8.4 L Oxyhemoglobin Carboxyhemoglobin Sodium Potassium Chloride Carbon Dioxide BUN Creatinine Glucose POC Glucose 350 H 260 H Hemoglobin A1c Lactic Acid Calcium Phosphorus Magnesium Direct Bilirubin AST ALT Alkaline Phosphatase Lactate Dehydrogenase Total Protein Albumin Ur Specific [place] Urine Blood Urine WBC (Auto) Vancomycin Trough Crossmatch 02/01/22 02/01/22 02/01/22 20:20 21:38 22:41 WBC RBC Hgb Hct MCV MCH RDW Plt Count Seg Neuts % (Manual) Lymphocytes % (Manual) Nucleated RBC % Seg Neutrophils # Man Lymphocytes # (Manual) Fibrinogen ABG pH POC ABG pO2 ABG pO2 ABG HCO3 ABG O2 Saturation ABG Base Excess ABG Hemoglobin Oxyhemoglobin Carboxyhemoglobin Sodium Potassium Chloride Carbon Dioxide BUN Creatinine Glucose POC Glucose 266 H 195 H 150 H Hemoglobin A1c Lactic Acid Calcium Phosphorus Magnesium Direct Bilirubin AST ALT Alkaline Phosphatase Lactate Dehydrogenase Total Protein Albumin Ur Specific [place] Urine Blood Urine WBC (Auto) Vancomycin Trough Crossmatch 02/01/22 02/02/22 02/02/22 23:39 00:25 00:25 WBC RBC Hgb Hct MCV MCH RDW Plt Count Seg Neuts % (Manual) Lymphocytes % (Manual) Nucleated RBC % Seg Neutrophils # Man Lymphocytes # (Manual) Fibrinogen ABG pH POC ABG pO2 ABG pO2 ABG HCO3 ABG O2 Saturation ABG Base Excess ABG Hemoglobin Oxyhemoglobin Carboxyhemoglobin Sodium 156 H D Potassium 3.0 L Chloride 114.2 H Carbon Dioxide BUN Creatinine 0.5 L Glucose 63 L POC Glucose 125 H Hemoglobin A1c Lactic Acid 7.10 H* Calcium 8.1 L Phosphorus Magnesium Direct Bilirubin AST ALT Alkaline Phosphatase Lactate Dehydrogenase Total Protein Albumin Ur Specific [place] Urine Blood Urine WBC (Auto) Vancomycin Trough Crossmatch 02/02/22 02/02/22 02/02/22 04:00 04:00 04:35 WBC 1.4 L* RBC Hgb 8.5 L Hct 26.8 L D MCV 57 L MCH 18 L RDW 19.0 H Plt Count 129 L Seg Neuts % (Manual) 33.0 L Lymphocytes % (Manual) 57.0 H Nucleated RBC % Seg Neutrophils # Man 0.5 L Lymphocytes # (Manual) 0.8 L Fibrinogen ABG pH POC ABG pO2 ABG pO2 ABG HCO3 ABG O2 Saturation ABG Base Excess ABG Hemoglobin Oxyhemoglobin Carboxyhemoglobin Sodium 155 H Potassium Chloride 113.1 H Carbon Dioxide BUN Creatinine Glucose 159 H POC Glucose Hemoglobin A1c Lactic Acid 3.10 H* Calcium 7.6 L Phosphorus Magnesium Direct Bilirubin AST ALT Alkaline Phosphatase Lactate Dehydrogenase Total Protein Albumin Ur Specific [place] Urine Blood Urine WBC (Auto) Vancomycin Trough Crossmatch 02/02/22 02/02/22 02/02/22 04:37 04:49 05:43 WBC RBC Hgb Hct MCV MCH RDW Plt Count Seg Neuts % (Manual) Lymphocytes % (Manual) Nucleated RBC % Seg Neutrophils # Man Lymphocytes # (Manual) Fibrinogen ABG pH 7.528 H POC ABG pO2 79.9 L ABG pO2 ABG HCO3 ABG O2 Saturation ABG Base Excess ABG Hemoglobin 8.8 L Oxyhemoglobin Carboxyhemoglobin 0.2 L Sodium Potassium Chloride Carbon Dioxide BUN Creatinine Glucose POC Glucose 116 H 125 H Hemoglobin A1c Lactic Acid Calcium Phosphorus Magnesium Direct Bilirubin AST ALT Alkaline Phosphatase Lactate Dehydrogenase Total Protein Albumin Ur Specific [place] Urine Blood Urine WBC (Auto) Vancomycin Trough Crossmatch 02/02/22 02/02/22 02/02/22 06:52 09:02 09:05 WBC RBC Hgb Hct MCV MCH RDW Plt Count Seg Neuts % (Manual) Lymphocytes % (Manual) Nucleated RBC % Seg Neutrophils # Man Lymphocytes # (Manual) Fibrinogen ABG pH POC ABG pO2 ABG pO2 ABG HCO3 ABG O2 Saturation ABG Base Excess ABG Hemoglobin Oxyhemoglobin Carboxyhemoglobin Sodium 154 H Potassium 3.3 L Chloride 113.3 H Carbon Dioxide BUN Creatinine Glucose 35 L* POC Glucose 110 H 35 L Hemoglobin A1c Lactic Acid Calcium 7.4 L Phosphorus 1.70 L D Magnesium 2.50 H Direct Bilirubin AST ALT Alkaline Phosphatase Lactate Dehydrogenase Total Protein Albumin Ur Specific [place] Urine Blood Urine WBC (Auto) Vancomycin Trough Crossmatch 02/02/22 02/02/22 02/02/22 09:05 09:30 09:41 WBC 2.6 L RBC Hgb 8.0 L Hct 25.0 L MCV 57 L MCH 18 L RDW 18.8 H Plt Count 97 L Seg Neuts % (Manual) Lymphocytes % (Manual) 12.0 L Nucleated RBC % 10.0 H Seg Neutrophils # Man 1.7 L Lymphocytes # (Manual) 0.3 L Fibrinogen ABG pH POC ABG pO2 ABG pO2 ABG HCO3 ABG O2 Saturation ABG Base Excess ABG Hemoglobin Oxyhemoglobin Carboxyhemoglobin Sodium Potassium Chloride Carbon Dioxide BUN Creatinine Glucose POC Glucose 119 H Hemoglobin A1c Lactic Acid 7.10 H* Calcium Phosphorus Magnesium Direct Bilirubin AST ALT Alkaline Phosphatase Lactate Dehydrogenase Total Protein Albumin Ur Specific [place] Urine Blood Urine WBC (Auto) Vancomycin Trough Crossmatch 02/02/22 02/02/22 02/02/22 10:17 12:32 15:39 WBC RBC Hgb Hct MCV MCH RDW Plt Count Seg Neuts % (Manual) Lymphocytes % (Manual) Nucleated RBC % Seg Neutrophils # Man Lymphocytes # (Manual) Fibrinogen ABG pH POC ABG pO2 ABG pO2 ABG HCO3 ABG O2 Saturation ABG Base Excess ABG Hemoglobin Oxyhemoglobin Carboxyhemoglobin Sodium Potassium Chloride Carbon Dioxide BUN Creatinine Glucose POC Glucose 120 H 166 H 263 H Hemoglobin A1c Lactic Acid Calcium Phosphorus Magnesium Direct Bilirubin AST ALT Alkaline Phosphatase Lactate Dehydrogenase Total Protein Albumin Ur Specific [place] Urine Blood Urine WBC (Auto) Vancomycin Trough Crossmatch 02/02/22 02/02/22 02/02/22 17:07 17:50 Unknown WBC RBC Hgb Hct MCV MCH RDW Plt Count Seg Neuts % (Manual) Lymphocytes % (Manual) Nucleated RBC % Seg Neutrophils # Man Lymphocytes # (Manual) Fibrinogen ABG pH 7.457 H POC ABG pO2 ABG pO2 71.0 L ABG HCO3 ABG O2 Saturation 94.5 L ABG Base Excess ABG Hemoglobin 9.2 L Oxyhemoglobin 93.0 L Carboxyhemoglobin Sodium 147 H Potassium 5.5 H D Chloride 110.8 H Carbon Dioxide BUN Creatinine Glucose 271 H POC Glucose 231 H Hemoglobin A1c Lactic Acid Calcium 7.3 L Phosphorus Magnesium Direct Bilirubin AST ALT Alkaline Phosphatase Lactate Dehydrogenase Total Protein Albumin Ur Specific [place] Urine Blood Urine WBC (Auto) Vancomycin Trough Crossmatch 02/03/22 02/03/22 02/03/22 00:08 04:00 04:00 WBC 3.7 L RBC Hgb 8.0 L Hct 25.5 L MCV 58 L MCH 18 L RDW 18.2 H Plt Count 79 L Seg Neuts % (Manual) 76.0 H Lymphocytes % (Manual) 2.0 L Nucleated RBC % 4.0 H Seg Neutrophils # Man Lymphocytes # (Manual) 0.1 L Fibrinogen ABG pH POC ABG pO2 ABG pO2 ABG HCO3 ABG O2 Saturation ABG Base Excess ABG Hemoglobin Oxyhemoglobin Carboxyhemoglobin Sodium 147 H Potassium Chloride 112.9 H Carbon Dioxide BUN Creatinine Glucose 281 H POC Glucose 231 H Hemoglobin A1c Lactic Acid Calcium 7.8 L Phosphorus Magnesium Direct Bilirubin 0.3 H AST 172 H ALT 89 H Alkaline Phosphatase Lactate Dehydrogenase Total Protein 4.7 L D Albumin 2.0 L Ur Specific [place] Urine Blood Urine WBC (Auto) Vancomycin Trough Crossmatch 02/03/22 02/03/22 02/03/22 04:20 05:26 11:38 WBC RBC Hgb Hct MCV MCH RDW Plt Count Seg Neuts % (Manual) Lymphocytes % (Manual) Nucleated RBC % Seg Neutrophils # Man Lymphocytes # (Manual) Fibrinogen ABG pH POC ABG pO2 ABG pO2 75.5 L ABG HCO3 ABG O2 Saturation ABG Base Excess -2.8 L ABG Hemoglobin 8.1 L Oxyhemoglobin 94.6 L Carboxyhemoglobin Sodium Potassium Chloride Carbon Dioxide BUN Creatinine Glucose POC Glucose 247 H 196 H Hemoglobin A1c Lactic Acid Calcium Phosphorus Magnesium Direct Bilirubin AST ALT Alkaline Phosphatase Lactate Dehydrogenase Total Protein Albumin Ur Specific [place] Urine Blood Urine WBC (Auto) Vancomycin Trough Crossmatch 02/03/22 02/04/22 02/04/22 16:27 02:44 03:18 WBC 1.2 L* RBC Hgb 8.2 L Hct 26.6 L MCV 59 L MCH 18 L RDW 19.6 H Plt Count 50 L Seg Neuts % (Manual) Lymphocytes % (Manual) Nucleated RBC % Seg Neutrophils # Man Lymphocytes # (Manual) Fibrinogen ABG pH POC ABG pO2 ABG pO2 ABG HCO3 ABG O2 Saturation ABG Base Excess ABG Hemoglobin Oxyhemoglobin Carboxyhemoglobin Sodium 148 H Potassium Chloride 116.3 H Carbon Dioxide BUN Creatinine Glucose 139 H POC Glucose 119 H Hemoglobin A1c Lactic Acid Calcium Phosphorus Magnesium Direct Bilirubin 0.3 H AST 92 H ALT 76 H Alkaline Phosphatase Lactate Dehydrogenase Total Protein 4.7 L Albumin 1.6 L Ur Specific [place] Urine Blood Urine WBC (Auto) Vancomycin Trough Crossmatch 0802/04/22 02/04/22 05:15 05:26 09:15 WBC RBC Hgb Hct MCV MCH RDW Plt Count Seg Neuts % (Manual) Lymphocytes % (Manual) Nucleated RBC % Seg Neutrophils # Man Lymphocytes # (Manual) Fibrinogen ABG pH 7.311 L POC ABG pO2 ABG pO2 50.1 L ABG HCO3 ABG O2 Saturation 83.6 L ABG Base Excess ABG Hemoglobin 8.6 L Oxyhemoglobin 81.9 L Carboxyhemoglobin Sodium Potassium Chloride Carbon Dioxide BUN Creatinine Glucose POC Glucose 115 H Hemoglobin A1c Lactic Acid Calcium Phosphorus Magnesium Direct Bilirubin AST ALT Alkaline Phosphatase Lactate Dehydrogenase Total Protein Albumin Ur Specific [place] Urine Blood Large A Urine WBC (Auto) 12.0 H Vancomycin Trough Crossmatch 02/04/22 02/04/22 02/04/22 11:17 14:37 17:04 WBC RBC Hgb Hct MCV MCH RDW Plt Count Seg Neuts % (Manual) Lymphocytes % (Manual) Nucleated RBC % Seg Neutrophils # Man Lymphocytes # (Manual) Fibrinogen ABG pH POC ABG pO2 ABG pO2 ABG HCO3 ABG O2 Saturation ABG Base Excess ABG Hemoglobin Oxyhemoglobin Carboxyhemoglobin Sodium Potassium Chloride Carbon Dioxide BUN Creatinine Glucose POC Glucose 166 H 109 H Hemoglobin A1c Lactic Acid Calcium Phosphorus Magnesium Direct Bilirubin AST 87 H ALT 75 H Alkaline Phosphatase 137 H Lactate Dehydrogenase Total Protein 4.6 L Albumin 1.7 L Ur Specific [place] Urine Blood Urine WBC (Auto) Vancomycin Trough Crossmatch 02/04/22 02/04/22 02/04/22 20:15 20:22 20:22 WBC RBC Hgb 7.1 L Hct 22.6 L MCV MCH RDW Plt Count Seg Neuts % (Manual) Lymphocytes % (Manual) Nucleated RBC % Seg Neutrophils # Man Lymphocytes # (Manual) Fibrinogen ABG pH 7.292 L POC ABG pO2 ABG pO2 40.3 L ABG HCO3 ABG O2 Saturation 72.1 L ABG Base Excess -2.2 L ABG Hemoglobin 7.0 L Oxyhemoglobin 70.5 L Carboxyhemoglobin Sodium Potassium Chloride Carbon Dioxide BUN Creatinine Glucose POC Glucose Hemoglobin A1c Lactic Acid 3.00 H* Calcium Phosphorus Magnesium Direct Bilirubin AST ALT Alkaline Phosphatase Lactate Dehydrogenase Total Protein Albumin Ur Specific [place] Urine Blood Urine WBC (Auto) Vancomycin Trough Crossmatch 02/04/22 02/04/22 02/05/22 20:22 23:03 04:40 WBC 3.1 L RBC Hgb 9.6 L Hct 30.1 L D MCV 64 L MCH 20 L RDW 26.9 H Plt Count 50 L Seg Neuts % (Manual) Lymphocytes % (Manual) Nucleated RBC % Seg Neutrophils # Man Lymphocytes # (Manual) Fibrinogen ABG pH POC ABG pO2 ABG pO2 ABG HCO3 ABG O2 Saturation ABG Base Excess ABG Hemoglobin Oxyhemoglobin Carboxyhemoglobin Sodium Potassium Chloride Carbon Dioxide BUN Creatinine Glucose POC Glucose 171 H Hemoglobin A1c Lactic Acid Calcium Phosphorus Magnesium Direct Bilirubin AST ALT Alkaline Phosphatase Lactate Dehydrogenase Total Protein Albumin Ur Specific [place] Urine Blood Urine WBC (Auto) Vancomycin Trough Crossmatch See Detail 02/05/22 02/05/22 02/05/22 04:40 04:40 04:43 WBC RBC Hgb Hct MCV MCH RDW Plt Count Seg Neuts % (Manual) Lymphocytes % (Manual) Nucleated RBC % Seg Neutrophils # Man Lymphocytes # (Manual) Fibrinogen ABG pH POC ABG pO2 ABG pO2 ABG HCO3 ABG O2 Saturation ABG Base Excess ABG Hemoglobin Oxyhemoglobin Carboxyhemoglobin Sodium 148 H Potassium Chloride 113.2 H Carbon Dioxide BUN 21 H Creatinine Glucose 155 H POC Glucose 156 H Hemoglobin A1c Lactic Acid Calcium Phosphorus Magnesium Direct Bilirubin AST 84 H ALT 67 H Alkaline Phosphatase 152 H Lactate Dehydrogenase 879 H Total Protein 5.0 L Albumin 1.8 L Ur Specific [place] Urine Blood Urine WBC (Auto) Vancomycin Trough Crossmatch 02/05/22 02/05/22 02/05/22 08:10 08:48 08:48 WBC RBC Hgb Hct MCV MCH RDW Plt Count Seg Neuts % (Manual) Lymphocytes % (Manual) Nucleated RBC % Seg Neutrophils # Man Lymphocytes # (Manual) Fibrinogen 795 H ABG pH POC ABG pO2 ABG pO2 57.1 L ABG HCO3 27.8 H ABG O2 Saturation 90.8 L ABG Base Excess ABG Hemoglobin 8.5 L Oxyhemoglobin 88.9 L Carboxyhemoglobin Sodium Potassium Chloride Carbon Dioxide BUN Creatinine Glucose POC Glucose Hemoglobin A1c Lactic Acid 2.90 H* Calcium Phosphorus Magnesium Direct Bilirubin AST ALT Alkaline Phosphatase Lactate Dehydrogenase Total Protein Albumin Ur Specific [place] Urine Blood Urine WBC (Auto) Vancomycin Trough Crossmatch 02/05/22 Unknown WBC RBC Hgb Hct MCV MCH RDW Plt Count Seg Neuts % (Manual) Lymphocytes % (Manual) Nucleated RBC % Seg Neutrophils # Man Lymphocytes # (Manual) Fibrinogen ABG pH POC ABG pO2 ABG pO2 ABG HCO3 ABG O2 Saturation ABG Base Excess ABG Hemoglobin Oxyhemoglobin Carboxyhemoglobin Sodium Potassium Chloride Carbon Dioxide BUN Creatinine Glucose POC Glucose Hemoglobin A1c Lactic Acid Calcium Phosphorus Magnesium Direct Bilirubin AST ALT Alkaline Phosphatase Lactate Dehydrogenase Total Protein Albumin Ur Specific [place] Urine Blood Urine WBC (Auto) Vancomycin Trough 28.6 H Crossmatch
[2022-02-05] MEDS: ALBUMIN HUMAN 25% (12.5 GM/50 ML) INJ IV SCH ×2 (11:34→21:10)
[2022-02-05] MEDS: DEXTROSE 50% IN WATER (25GM) 50 ML SYRINGE IV PRN (11:52)
[2022-02-05] MEDS ORDERED: FUROSEMIDE 20 MG/2 ML INJ IV SCH (12:00)
--- NOTE | 2022-02-05 15:23 | Progress Note ---
Assessment and Plan Cultures: 01/31/2022 blood culture: No growth 02/01/2022 tracheal aspirate culture: Klebsiella pneumoniae COVID-19 PCR: Negative 02/04/2022 blood culture: In process 02/04/2022 fungal blood culture: In process A/P: 61-year-old female was admitted from [facility] with hypoglycemia: #Refractory septic shock, severe acidosis, s/p PEA arrest on 02/01/2022 #Bilateral pneumonia: Probably aspiration following PEA arrest. Initial chest x-ray did not show any pneumonia. #Possible UTI: UA showed pyuria #Acute respiratory failure: On mechanical ventilation. #Diabetic ketoacidosis on admission #Pancytopenia, neutropenia: ?sepsis. ?[facility] Recs: -Meropenem switched to IV ceftriaxone -Vancomycin d/sandi -Hematology consulted for pancytopenia -Poor prognosis Doroteo Morales MD, FACP, [facility] ([facility] O: [phone] F: [phone] C: [phone] Subjective Date of service: 02/05/22 Principal diagnosis: DKA, s/p cardiopulmonary arrest Interval history: Low-grade temperatures persist. Remains on the vent, 100% FiO2. Off pressors. Objective - Exam Narrative Exam: Physical Exam: Constitutional: sedated, intubated, on the vent Head, Ears, Nose: Normocephalic, atraumatic. External ears, nose normal Eyes: Conjunctivae/corneas clear. No icterus. No ptosis. Neck: intubated Oral: intubated Cardiovascular: S1, S2 + Respiratory: AE fair bilaterally and equal GI: Soft, bowel sounds + Musculoskeletal: No pedal edema, no cyanosis. Skin: No rash or abscess Hem/Lymphatic: No palpable cervical or supraclavicular nodes. No lymphangitis Psych: no agitation Neurological: sedated, intubated, on the vent, exam limited - Constitutional Vitals: Vital Signs Temp Pulse Resp BP Pulse Ox 99.7 F H 107 H 11 L 98/69 100 02/05/22 11:59 02/05/22 15:15 02/05/22 15:15 02/05/22 15:15 02/05/22 15:15 Temperature -Last 24 Hours Temperature 99.7 F Temperature 100.2 F Temperature 100 F Temperature 100 F Temperature 100.0 F Temperature 100 F Temperature 100.0 F Temperature 100.0 F Temperature 100.0 F Temperature 100 F Temperature 99.0 F Temperature 99.0 F Temperature 99.9 F Temperature 99.9 F Temperature 99.9 F Temperature 99.7 F Temperature 99.7 F Temperature 98.1 F Temperature 98.2 F Temperature 98.1 F Temperature 98.2 F - Labs CBC & Chem 7: 02/05/22 04:40 02/05/22 04:40 Labs: Abnormal lab results 02/04/22 02/04/22 02/04/22 Range/Units 17:04 20:15 20:22 WBC (4.5-11.0) K/mm3 Hgb (10.1-14.3) gm/dl Hct (30.3-42.9) % MCV (79-97) fl MCH (28-32) pg RDW (13.2-15.2) % Plt Count (140-440) K/mm3 Fibrinogen (211-480) mg/dl ABG pH 7.292 L (7.350-7.450) pH Units ABG pO2 40.3 L (80.0-90.0) mm Hg ABG HCO3 (20.0-26.0) mmol/L ABG O2 Saturation 72.1 L (95.0-99.0) % ABG Base Excess -2.2 L (-2.0-3.0) mmol/L ABG Hemoglobin 7.0 L (12.0-16.0) gm/dl Oxyhemoglobin 70.5 L (95.0-99.0) % Sodium (137-145) mmol/L Chloride (98-107) mmol/L BUN (7-17) mg/dL Glucose (65-100) mg/dL POC Glucose 109 H (70-105) mg/dL Lactic Acid 3.00 H* (0.7-2.0) mmol/L AST (5-40) units/L ALT (7-56) units/L Alkaline Phosphatase (35-129) units/L Lactate Dehydrogenase (91-180) units/L Total Protein (6.3-8.2) g/dL Albumin (3.9-5) g/dL Vancomycin Trough (5.0-20.0) ug/mL Crossmatch 02/04/22 02/04/22 02/04/22 Range/Units 20:22 20:22 23:03 WBC (4.5-11.0) K/mm3 Hgb 7.1 L (10.1-14.3) gm/dl Hct 22.6 L (30.3-42.9) % MCV (79-97) fl MCH (28-32) pg RDW (13.2-15.2) % Plt Count (140-440) K/mm3 Fibrinogen (211-480) mg/dl ABG pH (7.350-7.450) pH Units ABG pO2 (80.0-90.0) mm Hg ABG HCO3 (20.0-26.0) mmol/L ABG O2 Saturation (95.0-99.0) % ABG Base Excess (-2.0-3.0) mmol/L ABG Hemoglobin (12.0-16.0) gm/dl Oxyhemoglobin (95.0-99.0) % Sodium (137-145) mmol/L Chloride (98-107) mmol/L BUN (7-17) mg/dL Glucose (65-100) mg/dL POC Glucose 171 H (70-105) mg/dL Lactic Acid (0.7-2.0) mmol/L AST (5-40) units/L ALT (7-56) units/L Alkaline Phosphatase (35-129) units/L Lactate Dehydrogenase (91-180) units/L Total Protein (6.3-8.2) g/dL Albumin (3.9-5) g/dL Vancomycin Trough (5.0-20.0) ug/mL Crossmatch See Detail 02/05/22 02/05/22 02/05/22 Range/Units 04:40 04:40 04:40 WBC 3.1 L (4.5-11.0) K/mm3 Hgb 9.6 L (10.1-14.3) gm/dl Hct 30.1 L D (30.3-42.9) % MCV 64 L (79-97) fl MCH 20 L (28-32) pg RDW 26.9 H (13.2-15.2) % Plt Count 50 L (140-440) K/mm3 Fibrinogen (211-480) mg/dl ABG pH (7.350-7.450) pH Units ABG pO2 (80.0-90.0) mm Hg ABG HCO3 (20.0-26.0) mmol/L ABG O2 Saturation (95.0-99.0) % ABG Base Excess (-2.0-3.0) mmol/L ABG Hemoglobin (12.0-16.0) gm/dl Oxyhemoglobin (95.0-99.0) % Sodium 148 H (137-145) mmol/L Chloride 113.2 H (98-107) mmol/L BUN 21 H (7-17) mg/dL Glucose 155 H (65-100) mg/dL POC Glucose (70-105) mg/dL Lactic Acid (0.7-2.0) mmol/L AST 84 H (5-40) units/L ALT 67 H (7-56) units/L Alkaline Phosphatase 152 H (35-129) units/L Lactate Dehydrogenase 879 H (91-180) units/L Total Protein 5.0 L (6.3-8.2) g/dL Albumin 1.8 L (3.9-5) g/dL Vancomycin Trough (5.0-20.0) ug/mL Crossmatch 02/05/22 02/05/22 02/05/22 Range/Units 04:43 08:10 08:48 WBC (4.5-11.0) K/mm3 Hgb (10.1-14.3) gm/dl Hct (30.3-42.9) % MCV (79-97) fl MCH (28-32) pg RDW (13.2-15.2) % Plt Count (140-440) K/mm3 Fibrinogen (211-480) mg/dl ABG pH (7.350-7.450) pH Units ABG pO2 57.1 L (80.0-90.0) mm Hg ABG HCO3 27.8 H (20.0-26.0) mmol/L ABG O2 Saturation 90.8 L (95.0-99.0) % ABG Base Excess (-2.0-3.0) mmol/L ABG Hemoglobin 8.5 L (12.0-16.0) gm/dl Oxyhemoglobin 88.9 L (95.0-99.0) % Sodium (137-145) mmol/L Chloride (98-107) mmol/L BUN (7-17) mg/dL Glucose (65-100) mg/dL POC Glucose 156 H (70-105) mg/dL Lactic Acid 2.90 H* (0.7-2.0) mmol/L AST (5-40) units/L ALT (7-56) units/L Alkaline Phosphatase (35-129) units/L Lactate Dehydrogenase (91-180) units/L Total Protein (6.3-8.2) g/dL Albumin (3.9-5) g/dL Vancomycin Trough (5.0-20.0) ug/mL Crossmatch 02/05/22 02/05/22 02/05/22 Range/Units 08:48 11:46 Unknown WBC (4.5-11.0) K/mm3 Hgb (10.1-14.3) gm/dl Hct (30.3-42.9) % MCV (79-97) fl MCH (28-32) pg RDW (13.2-15.2) % Plt Count (140-440) K/mm3 Fibrinogen 795 H (211-480) mg/dl ABG pH (7.350-7.450) pH Units ABG pO2 (80.0-90.0) mm Hg ABG HCO3 (20.0-26.0) mmol/L ABG O2 Saturation (95.0-99.0) % ABG Base Excess (-2.0-3.0) mmol/L ABG Hemoglobin (12.0-16.0) gm/dl Oxyhemoglobin (95.0-99.0) % Sodium (137-145) mmol/L Chloride (98-107) mmol/L BUN (7-17) mg/dL Glucose (65-100) mg/dL POC Glucose 61 L (70-105) mg/dL Lactic Acid (0.7-2.0) mmol/L AST (5-40) units/L ALT (7-56) units/L Alkaline Phosphatase (35-129) units/L Lactate Dehydrogenase (91-180) units/L Total Protein (6.3-8.2) g/dL Albumin (3.9-5) g/dL Vancomycin Trough 28.6 H (5.0-20.0) ug/mL Crossmatch
[2022-02-05] MEDS: cefTRIAXone/NS 2 GM/100 ML 2 GM/100 ML BAG IV SCH (16:06)
[2022-02-05] MEDS: SENNOSIDES/DOCUSATE SODIUM 8.6/50 MG TAB FEEDTUBE SCH (21:10)
[2022-02-06] MEDS: INSULIN REGULAR, HUMAN 100 UNITS/1 ML SUB-Q SCH ×4 (00:21→17:56)
[2022-02-06] MEDS: fentaNYL DRIP Premix 2,000 MCG/100 ML BAG IV SCH ×2 (03:55→17:29)
[2022-02-06 04:46] LABS: Hematocrit 26.1 % (30.3-42.9); Hemoglobin 8.4 gm/dl (10.1-14.3); Mean Corpuscular HGB Conc 32 % (30-34)
[2022-02-06 04:47] LABS: Mean Corpuscular Volume 64 fl (79-97); Platelet Count 38 K/mm3 (140-440); Red Cell Distribution Width 26.2 % (13.2-15.2)
[2022-02-06 05:04] LABS: Alanine Aminotransferase 53 units/L (7-56); Albumin 2.4 g/dL (3.9-5); BUN/Creatinine Ratio 23; Bilirubin,Direct < 0.2 mg/dL (0-0.2); Blood Urea Nitrogen 21 mg/dL (7-17); Calcium 8.5 mg/dL (8.4-10.2); Hemolysis Index 3
[2022-02-06 05:08] LABS: ABG Base Excess 4.5 mmol/L (-2.0-3.0); ABG HCO3 31.3 mmol/L (20.0-26.0); ABG Methemoglobin 0.5 % (0.0-1.5); ABG Oxygen Saturation 89.6 % (95.0-99.0); ABG PCO2 60.6 mm Hg; ABG PH 7.33 pH Units (7.350-7.450); ABG PO2 57.9 mm Hg (80.0-90.0)
--- NOTE | 2022-02-06 05:42 | XRay Report ---
CHEST 1 VIEW 02/06/2022 5:06 AM INDICATION / CLINICAL INFORMATION: follow up respiratory failure. COMPARISON: One view of the chest from 02/05/2022. FINDINGS: SUPPORT DEVICES: Unchanged. HEART / MEDIASTINUM: Stable. LUNGS / PLEURA: Bilateral airspace opacities have worsened. No significant pleural effusion. No pneum othorax. ADDITIONAL FINDINGS: No significant additional findings. IMPRESSION: Interval worsening of bilateral airspace opacities. No other significant interval changes. Signer Name: Chau Pham MD Signed: 02/06/2022 5:38 AM Workstation Name: [id number]
[2022-02-06] MEDS: AMIODARONE 900 MG in DEXTROSE 5% IN WATER 482 ML IV SCH (06:27)
[2022-02-06] MEDS ORDERED: POTASSIUM CHLORIDE 10 MEQ 10 MEQ/100 ML BAG IV SCH (07:00)
[2022-02-06] MEDS: FAMOTIDINE 20 MG TAB FEEDTUBE SCH ×2 (09:16→21:04)
--- NOTE | 2022-02-06 09:27 | Progress Note ---
Assessment and Plan Cultures: 01/31/2022 blood culture: No growth 02/01/2022 tracheal aspirate culture: Klebsiella pneumoniae COVID-19 PCR: Negative 02/04/2022 blood culture: no growth so far 02/04/2022 fungal blood culture: no growth so far A/P: 61-year-old female was admitted from [facility] with hypoglycemia: #Refractory septic shock, severe acidosis, s/p PEA arrest on 02/01/2022. #Bilateral pneumonia: Probably aspiration following PEA arrest. Initial chest x-ray did not show any pneumonia. Now with severe b/l pneumonia. #Possible UTI: UA showed pyuria #Acute hypoxic respiratory failure with ARDS: On mechanical ventilation. #Diabetic ketoacidosis on admission #Pancytopenia, neutropenia, thrombocytopenia: ?sepsis. Seen by hematology. HIV negative. Recs: -continue IV ceftriaxone -Poor prognosis. Goals of care discussions with family. Doroteo Morales MD, FACP, [facility] O: [phone] F: [phone] C: [phone] Subjective Date of service: 02/06/22 Principal diagnosis: DKA, s/p cardiopulmonary arrest Interval history: Afebrile. Remains on the vent, 100% FiO2. Remains off pressors. Objective - Exam Narrative Exam: Physical Exam: Constitutional: sedated, intubated, on the vent Head, Ears, Nose: Normocephalic, atraumatic. External ears, nose normal Eyes: Conjunctivae/corneas clear. No icterus. No ptosis. Neck: intubated Oral: intubated Cardiovascular: S1, S2 + Respiratory: AE fair bilaterally and equal GI: Soft, bowel sounds + Musculoskeletal: No pedal edema, no cyanosis. Skin: No rash or abscess Hem/Lymphatic: No palpable cervical or supraclavicular nodes. No lymphangitis Psych: no agitation Neurological: sedated, intubated, on the vent, exam limited - Constitutional Vitals: Vital Signs Temp Pulse Resp BP Pulse Ox 98.2 F 102 H 18 95/63 88 02/06/22 08:00 02/06/22 08:16 02/06/22 08:16 02/06/22 08:16 02/06/22 08:16 Temperature -Last 24 Hours Temperature 98.2 F Temperature 99.1 F Temperature 98.2 F Temperature 98.5 F Temperature 98.4 F Temperature 99.7 F - Labs CBC & Chem 7: 02/06/22 04:33 02/06/22 04:33 Labs: Abnormal lab results 02/05/22 02/05/22 02/05/22 Range/Units 11:46 17:45 Unknown Hgb (10.1-14.3) gm/dl Hct (30.3-42.9) % MCV (79-97) fl MCH (28-32) pg RDW (13.2-15.2) % Plt Count (140-440) K/mm3 ABG pH (7.350-7.450) pH Units ABG pO2 (80.0-90.0) mm Hg ABG HCO3 (20.0-26.0) mmol/L ABG O2 Saturation (95.0-99.0) % ABG Base Excess (-2.0-3.0) mmol/L ABG Hemoglobin (12.0-16.0) gm/dl Oxyhemoglobin (95.0-99.0) % Sodium (137-145) mmol/L Potassium (3.6-5.0) mmol/L Carbon Dioxide (22-30) mmol/L BUN (7-17) mg/dL Glucose (65-100) mg/dL POC Glucose 61 L 133 H (70-105) mg/dL Lactic Acid (0.7-2.0) mmol/L AST (5-40) units/L Alkaline Phosphatase (35-129) units/L Total Protein (6.3-8.2) g/dL Albumin (3.9-5) g/dL Vancomycin Trough 28.6 H (5.0-20.0) ug/mL 02/05/22 02/06/22 02/06/22 Range/Units 23:59 04:33 04:33 Hgb 8.4 L (10.1-14.3) gm/dl Hct 26.1 L (30.3-42.9) % MCV 64 L (79-97) fl MCH 21 L (28-32) pg RDW 26.2 H (13.2-15.2) % Plt Count 38 L (140-440) K/mm3 ABG pH (7.350-7.450) pH Units ABG pO2 (80.0-90.0) mm Hg ABG HCO3 (20.0-26.0) mmol/L ABG O2 Saturation (95.0-99.0) % ABG Base Excess (-2.0-3.0) mmol/L ABG Hemoglobin (12.0-16.0) gm/dl Oxyhemoglobin (95.0-99.0) % Sodium 146 H (137-145) mmol/L Potassium 3.4 L (3.6-5.0) mmol/L Carbon Dioxide 31 H (22-30) mmol/L BUN 21 H (7-17) mg/dL Glucose 230 H (65-100) mg/dL POC Glucose 275 H (70-105) mg/dL Lactic Acid (0.7-2.0) mmol/L AST 70 H (5-40) units/L Alkaline Phosphatase 197 H (35-129) units/L Total Protein 5.3 L (6.3-8.2) g/dL Albumin 2.4 L (3.9-5) g/dL Vancomycin Trough (5.0-20.0) ug/mL 02/06/22 02/06/22 02/06/22 Range/Units 04:33 04:50 06:19 Hgb (10.1-14.3) gm/dl Hct (30.3-42.9) % MCV (79-97) fl MCH (28-32) pg RDW (13.2-15.2) % Plt Count (140-440) K/mm3 ABG pH 7.330 L (7.350-7.450) pH Units ABG pO2 57.9 L (80.0-90.0) mm Hg ABG HCO3 31.3 H (20.0-26.0) mmol/L ABG O2 Saturation 89.6 L (95.0-99.0) % ABG Base Excess 4.5 H (-2.0-3.0) mmol/L ABG Hemoglobin 8.1 L (12.0-16.0) gm/dl Oxyhemoglobin 87.7 L (95.0-99.0) % Sodium (137-145) mmol/L Potassium (3.6-5.0) mmol/L Carbon Dioxide (22-30) mmol/L BUN (7-17) mg/dL Glucose (65-100) mg/dL POC Glucose 219 H (70-105) mg/dL Lactic Acid 3.10 H* (0.7-2.0) mmol/L AST (5-40) units/L Alkaline Phosphatase (35-129) units/L Total Protein (6.3-8.2) g/dL Albumin (3.9-5) g/dL Vancomycin Trough (5.0-20.0) ug/mL - Imaging and cardiology Chest x-ray: report reviewed, image reviewed (severe b/l airspace opacities)
--- NOTE | 2022-02-06 11:19 | Progress Note ---
<NICOLA TREVINO - Last Filed: 02/06/22 19:12> Assessment and Plan Assessment and plan: This is a 61-year-old female with known past medical history of DM, dementia, HLD, and HTN initially admitted for Hypoglycemia then went into DKA and was transferred to the ICU where she PEA arrested on 02/01. Patient is now with septic shock and on ventilatory support. Hospital Course to Date: 02/01: patient was transferred to ICU as lab work was consistent with DKA and started on insulin drip. Central line placed for IV access. Patient was given bicarb push and started on a bicarb drip. She was also started on Rocephin due to UTI however antibiotics are broadened to cefepime and vancomycin. 02/02: s/p cardiac arrest on 02/01. Bicarbonate drip discontinued. Pancytopenia noted, anion gap closed and transitioned to SSI and long-acting insulin. Patient was having hypoglycemia this morning which has been corrected now. Started on tube feeding. Potassium and phosphorus will be repleted. Hype rnatremia noted and FWF started with tube feedings. COVID-19 PCR pending. Venous Doppler ultrasound pending. Neurology and cardiology consulted. Echocardiogram pending. Patient currently on Levophed and sedated with propofol. Fentanyl added. Given 1 LR bolus this morning for hypotension. 02/03: LR bolus x2, remains on levophed, tachycardia and EKG completed which shows tachycardia. Increase in FiO2, Will culture with next temp spike. Will give 1 gm Calcium Gluconate. 02/04: S/p Bronch this am by [facility] at the bedside. Patient still spiking high temp despite broad spectrum IV Abx. Remains on high pressors with worsen neutropenia and thrombocytopenia. Will panculture this am, antifungal culture was also ordered. Continue current empiric IV Abx for now, awaiting sensitivity. Will also consult ID for further eval. Possible Hematology consult for pancytopenia per CCM. Possible family meeting with [facility] this week, case management to arrange. 02/05: Back up on full support on the vent. CXR with worsen bilateral opacities, S/p X1 dose of IV lasix. Patient also received 1units of PRBCs overnight due to anemia, H&H stable this am and no s/s of any active bleeding. Patient remains pancytopenic, still febrile. IV abx changed to Merrem and Vanc per ID, hematology consult pending. ST with episodes of SVT this am, plan for amiodarone gtt per Cardio. Off pressors this am. BP remains boderline, 25% IV Albumin and X1 dose of additional IV lasix gain today per CCM. Continue FWF for hypernatremi a. Lantus adjusted due to hypoglycemia. Possible family meeting tomorrow with [facility]. 02/06: Decompensated this am, sudden drop in SPO2 in the 80s, HR in the 50s, and MAP in the 40s. Back on 2 pressors, on 100% FIO2 and 12 of peep. Stat ABG pending, 1amp Bcarb given, stress dose steroids initiated. This an CXR reviewed with worsen opacities from prior. Patient remains on IV abx per ID. Hematology recommendations appreciated. Event discussed with CCM who agreed with current intervention. Patient's daughter and sister were notified via phone. Current events, patient's diagnosis, overal condition, and poor prognosis were thoroughly discussed. GOC was also addressed with patient's daughter and sister, they voiced that if patient was able to speak for herself she would want all lifesaving measures, including CPR and medications if her heart stop. All questions and concerns were addressed at this time. They verbalized understanding and agreed with current care plan. Patient remains a FULL code status at This time. Assessment and Plan #Septic Shock # Supraventricular Tachycardia(SVT) #S/p PEA Arrest with ROSC #H/o HTN, HLD - Coded in the ICU on 02/01, PEA arrest - ROSC achieved post 1amp of bcarb and EPI - With tachycardia, persistent fevers, s/p multiple pressors - decompensated this am with hypoxia, bradycardiac, and worsen hypotension - Back on 2 pressors this am. S/p 1 amp of bcarb - Stress dose steroids initiated - Echo reviewed, EF 55-60%, see report for detail - Cardiology consulted, appreciated recommendations - amiodarone gtt transitioned to PO per Cardio - Continue blood pressure monitor per protocol - Maintain MAP above 65 #Acute Hypoxic Respiratory Failure #ARDS #Bilateral Pneumonia - Intubated during code on 02/01 - This am CXR with worsening bilateral airspace opacities - 02/04 s/p Bronchoscopy at the bedside by [facility]- BAL sent to lab - Vent setting: PRVC-100%,12,12,350 - Hypoxic, bradycardic, and hypotensive this am. Stat ABG pending - s/p X1 dose of IV lasix - CCM consulted, appreciate recommendations - Continue IV Abx and Nebs per CCM - VAP bundle addressed - Aspiration precaution HOB above 30 - Daily ABG and CXR - Continue SPO2 monitoring for SPO2 goal above 92% #Septic Shock #Bilateral Pneumonia #Urinary Tract Infection(UTI) - With high fevers, neutropenia, thrombocytopenia, tachycardia, and hypotensive on multiple pressors - UA consistent with pyuria, Blood cultures with NGTD, Sputum culture with Klebsiella Pneumoniae - BLE doppler negative for DVT - repeat cultures with NGTD - ID consulted, appreciate recommendations - Continue IV Abx per ID- Rocephin and Vanco - f/u on culture - Monitor CBC and temperature curve #Pancytopenia #Microcytic Anemia - Significant drop of WBCs and Plt count from admit - Probably due to septic shock, on IV Abx per ID - Hgb dropped from 8.1 to 7.1, No s/s of active bleeding - S/p 1unit PRBCs, H&H stable this am - Continue to trend CBC - Hold AC for now - Hematology consulted, appreciate recommendations #Acute Metabolic Encephalopathy #h/o Dementia - Intubated and Sedated on Fent. gtt - Titrate sedations for RASS goal of 0 to -2 - Daily SAT and SBT per CCM - Avoid benzodiazepine to reduce the possibility of delirium - PRN Analgesia for CPOT greater than 3 - Maintenance of sleep-wake cycle - Neurology consulted, appreciate recommendations #Hypokalemia #Hypernatremia - Low K most likely 2/2 IV Lasix - K repleted - Continue FWF Q4hrs for Hypernatremia - Strict intake and output - Avoid nephrotoxic medications - Monitor and replace electrolytes as needed #Type 2 Diabetes mellitus #S/p DKA - initially presented with hypoglycemia then went into DKA - s/p DKA protocol - Hemoglobin A1c 11.1 - Continue BG and SSI Q6hrs and Lantus qHs - Avoid Hypoglycemia #GI/DVT Prophylaxis - PPI- Pepcid - SCDs to bilateral lower extremities while in bed #Advance Care Planning - Patient's diagnosis, overal condition, and poor prognosis were thoroughly discussed. GOC was also addressed with patient's daughter and sister, they voiced that if patient was able to speak for herself she would want all lifesaving measures, including CPR and medications if her heart stop. All questions and concerns were addressed at this time. They verbalized understanding and agreed with current care plan. Patient remains a FULL code status at This time. The high probability of a clinically significant, sudden or life threatening deterioration of the [Multiple] system(s) required my full and direct attention, intervention and personal management. The aggregate critical care time was [90] minutes. This time is in addition to time spent performing reported procedures but includes the following: [x] Data Review and interpretation [x] Patient assessment and monitoring of vital signs [x] Documentation [x] Medication orders and management Disposition Plan: ICU Total Time Spent with Patient (Minutes): 90 History Interval history: Patient seen and examined at the bedside. Patient decompensated this am, sudden drop in SPO2 in the 80s, HR dropped in the 50s, and MAP in the 40s. Required high dose pressors, back on Levophed and Vaso. Hospitalist Physical - Constitutional Vitals: Temp Pulse Resp BP Pulse Ox 98.2 F 100 H 20 97/65 84 02/06/22 08:00 02/06/22 11:00 02/06/22 11:00 02/06/22 11:00 02/06/22 11:00 General appearance: Present: no acute distress, other (Remains on the vent) - EENT Eyes: Present: mydriasis (sluggish) - Respiratory Respiratory effort: normal Respiratory: bilateral: rhonchi, wheezing - Cardiovascular Rhythm: regular Heart Sounds: Present: S1 & S2 - Extremities Extremities: no ischemia, pulses intact, pulses symmetrical Extremity abnormal: edema - Peripheral Assessment Generalized Edema Type: Pitting Edema Degree: 2+ Capillary Refill: < 3 seconds Skin Temperature: Warm Peripheral Pulses: within normal limits - Abdominal General gastrointestinal: soft, non-distended, normal bowel sounds - Integumentary Integumentary: Present: warm (Weeping) - Psychiatric Psychiatric: other (Intubated, unresponsive) - Neurologic Neurologic: other (Intubated and unresponsive) - Allied Health Allied health notes reviewed: nursing, case management HEART Score - HEART Score Troponin: Troponin T < 0.010 ng/mL (0.00-0.029) 02/03/22 16:15 Results - Labs CBC & Chem 7: 02/06/22 04:33 02/06/22 04:33 Labs: Laboratory Last Values WBC 8.3 K/mm3 (4.5-11.0) 02/06/22 04:33 RBC 4.10 M/mm3 (3.65-5.03) 02/06/22 04:33 Hgb 8.4 gm/dl (10.1-14.3) L 02/06/22 04:33 Hct 26.1 % (30.3-42.9) L 02/06/22 04:33 MCV 64 fl (79-97) L 02/06/22 04:33 MCH 21 pg (28-32) L 02/06/22 04:33 MCHC 32 % (30-34) 02/06/22 04:33 RDW 26.2 % (13.2-15.2) H 02/06/22 04:33 Plt Count 38 K/mm3 (140-440) L 02/06/22 04:33 Lymph % (Auto) Cutter Operator Brick 02/02/22 04:00 Add Manual Diff Complete 02/03/22 04:00 Total Counted 50 02/03/22 04:00 Seg Neutrophils % Cutter Operator Brick 02/02/22 04:00 Seg Neuts % (Manual) 76.0 % (40.0-70.0) H 02/03/22 04:00 Band Neutrophils % 18.0 % 02/03/22 04:00 Lymphocytes % (Manual) 2.0 % (13.4-35.0) L 02/03/22 04:00 Reactive Lymphs % (Man) 0 % 02/03/22 04:00 Monocytes % (Manual) 4.0 % (0.0-7.3) 02/03/22 04:00 Eosinophils % (Manual) 0 % (0.0-4.3) 02/03/22 04:00 Basophils % (Manual) 0 % (0.0-1.8) 02/03/22 04:00 Metamyelocytes % 0 % 02/03/22 04:00 Myelocytes % 0 % 02/03/22 04:00 Promyelocytes % 0 % 02/03/22 04:00 Blast Cells % 0 % 02/03/22 04:00 Nucleated RBC % 4.0 % (0.0-0.9) H 02/03/22 04:00 Seg Neutrophils # Man 2.8 K/mm3 (1.8-7.7) 02/03/22 04:00 Band Neutrophils # 0.7 K/mm3 02/03/22 04:00 Lymphocytes # (Manual) 0.1 K/mm3 (1.2-5.4) L 02/03/22 04:00 Abs React Lymphs (Man) 0.0 K/mm3 02/03/22 04:00 Monocytes # (Manual) 0.1 K/mm3 (0.0-0.8) 02/03/22 04:00 Eosinophils # (Manual) 0.0 K/mm3 (0.0-0.4) 02/03/22 04:00 Basophils # (Manual) 0.0 K/mm3 (0.0-0.1) 02/03/22 04:00 Metamyelocytes # 0.0 K/mm3 02/03/22 04:00 Myelocytes # 0.0 K/mm3 02/03/22 04:00 Promyelocytes # 0.0 K/mm3 02/03/22 04:00 Blast Cells # 0.0 K/mm3 02/03/22 04:00 WBC Morphology Not Reportable 02/03/22 04:00 Hypersegmented Neuts Not Reportable 02/03/22 04:00 Hyposegmented Neuts Not Reportable 02/03/22 04:00 Hypogranular Neuts Not Reportable 02/03/22 04:00 Smudge Cells Not Reportable 02/03/22 04:00 Toxic Granulation Not Reportable 02/03/22 04:00 Toxic Vacuolation Not Reportable 02/03/22 04:00 Dohle Bodies Few 02/03/22 04:00 Pelger-Huet Anomaly Not Reportable 02/03/22 04:00 Sung Rods Not Reportable 02/03/22 04:00 Platelet Estimate Consistent w auto 02/03/22 04:00 Clumped Platelets Not Reportable 02/03/22 04:00 Plt Clumps, EDTA Not Reportable 02/03/22 04:00 Large Platelets Not Reportable 02/03/22 04:00 Giant Platelets Not Reportable 02/03/22 04:00 Platelet Satelliting Not Reportable 02/03/22 04:00 Plt Morphology Comment Not Reportable 02/03/22 04:00 RBC Morphology Not Reportable 02/03/22 04:00 Dimorphic RBCs Not Reportable 02/03/22 04:00 Polychromasia Not Reportable 02/03/22 04:00 Hypochromasia 3+ 02/03/22 04:00 Poikilocytosis 2+ 02/03/22 04:00 Anisocytosis 1+ 02/03/22 04:00 Microcytosis 2+ 02/03/22 04:00 Macrocytosis Not Reportable 02/03/22 04:00 Spherocytes Not Reportable 02/03/22 04:00 Pappenheimer Bodies Not Reportable 02/03/22 04:00 Sickle Cells Not Reportable 02/03/22 04:00 Target Cells 1+ 02/03/22 04:00 Tear Drop Cells Few 02/03/22 04:00 Ovalocytes Few 02/03/22 04:00 Helmet Cells Not Reportable 02/03/22 04:00 Starr-Boissevain Bodies Not Reportable 02/03/22 04:00 Hanna Rings Not Reportable 02/03/22 04:00 [place] Cells 1+ 02/03/22 04:00 Bite Cells Not Reportable 02/03/22 04:00 Crenated Cell Not Reportable 02/03/22 04:00 Elliptocytes Few 02/03/22 04:00 Acanthocytes (Spur) Not Reportable 02/03/22 04:00 Rouleaux Not Reportable 02/03/22 04:00 Hemoglobin C Crystals Not Reportable 02/03/22 04:00 Schistocytes Rare 02/03/22 04:00 Malaria parasites Not Reportable 02/03/22 04:00 Sven Bodies Not Reportable 02/03/22 04:00 Hem Pathologist Commnt No 02/03/22 04:00 PT 14.8 Sec. (12.2-14.9) 02/05/22 08:48 INR 1.02 (0.87-1.13) 02/05/22 08:48 APTT 34.4 Sec. (24.2-36.6) 02/05/22 08:48 Fibrinogen 795 mg/dl (211-480) H 02/05/22 08:48 ABG pH 7.330 pH Units (7.350-7.450) L 02/06/22 04:50 POC ABG pCO2 37.3 mmHg (32.0-48.0) 02/02/22 04:49 ABG pCO2 60.6 mm Hg 02/06/22 04:50 POC ABG pO2 79.9 mmHg (83-108) L 02/02/22 04:49 ABG pO2 57.9 mm Hg (80.0-90.0) L 02/06/22 04:50 POC ABG HCO3 30.3 02/02/22 04:49 ABG HCO3 31.3 mmol/L (20.0-26.0) H 02/06/22 04:50 ABG O2 Saturation 89.6 % (95.0-99.0) L 02/06/22 04:50 ABG O2 Content 10.0 (0.0-44) 02/06/22 04:50 POC ABG Base Excess 7.1 02/02/22 04:49 ABG Base Excess 4.5 mmol/L (-2.0-3.0) H 02/06/22 04:50 ABG Hemoglobin 8.1 gm/dl (12.0-16.0) L 02/06/22 04:50 ABG Oxyhemoglobin 96.0 (94-98) 02/02/22 04:49 ABG Carboxyhemoglobin 1.6 % (0.0-5.0) 02/06/22 04:50 ABG Methemoglobin 0.5 % (0.0-1.5) 02/06/22 04:50 ABG Sodium Not Reportable 02/02/22 04:49 ABG Potassium Not Reportable 02/02/22 04:49 ABG Chloride Not Reportable 02/02/22 04:49 ABG Glucose Not Reportable 02/02/22 04:49 Oxyhemoglobin 87.7 % (95.0-99.0) L 02/06/22 04:50 Carboxyhemoglobin 0.2 (0.5-1.5) L 02/02/22 04:49 FiO2 100 % 02/06/22 04:50 FiO2 % 60.0 02/02/22 04:49 Sodium 146 mmol/L (137-145) H 02/06/22 04:33 Potassium 3.4 mmol/L (3.6-5.0) L 02/06/22 04:33 Chloride 104.5 mmol/L (98-107) 02/06/22 04:33 Carbon Dioxide 31 mmol/L (22-30) H 02/06/22 04:33 Anion Gap 14 mmol/L 02/06/22 04:33 BUN 21 mg/dL (7-17) H 02/06/22 04:33 Creatinine 0.9 mg/dL (0.6-1.2) 02/06/22 04:33 Estimated GFR > 60 ml/min 02/06/22 04:33 BUN/Creatinine Ratio 23 % 02/06/22 04:33 Glucose 230 mg/dL (65-100) H 02/06/22 04:33 POC Glucose 219 mg/dL (70-105) H 02/06/22 06:19 Hemoglobin A1c 11.1 % (4-6) H 02/01/22 12:54 Lactic Acid 3.10 mmol/L (0.7-2.0) H* 02/06/22 04:33 Calcium 8.5 mg/dL (8.4-10.2) 02/06/22 04:33 Phosphorus 3.40 mg/dL (2.5-4.5) 02/04/22 02:44 Magnesium 2.00 mg/dL (1.7-2.3) 02/05/22 Unknown Total Bilirubin 0.20 mg/dL (0.1-1.2) 02/06/22 04:33 Direct Bilirubin < 0.2 mg/dL (0-0.2) 02/06/22 04:33 Indirect Bilirubin 0.0 mg/dL 02/06/22 04:33 AST 70 units/L (5-40) H 02/06/22 04:33 ALT 53 units/L (7-56) 02/06/22 04:33 Alkaline Phosphatase 197 units/L (35-129) H 02/06/22 04:33 Lactate Dehydrogenase 879 units/L (91-180) H 02/05/22 04:40 Troponin T < 0.010 ng/mL (0.00-0.029) 02/03/22 16:15 Total Protein 5.3 g/dL (6.3-8.2) L 02/06/22 04:33 Albumin 2.4 g/dL (3.9-5) L 02/06/22 04:33 Albumin/Globulin Ratio 0.8 % 02/06/22 04:33 Arterial Blood Glucose Not Reportable 02/02/22 04:49 Urine Color Yellow (Yellow) 02/04/22 09:15 Urine Turbidity Cloudy (Clear) 02/04/22 09:15 Urine pH 6.0 (5.0-7.0) 02/04/22 09:15 Ur Specific [place] 1.025 (1.003-1.030) 02/04/22 09:15 Urine Protein >500 mg/dL (Negative) 02/04/22 09:15 Urine Glucose (UA) Negative mg/dL (Negative) 02/04/22 09:15 Urine Ketones Negative mg/dL (Negative) 02/04/22 09:15 Urine Blood Large (Negative) A 02/04/22 09:15 Urine Nitrite Negative (Negative) 02/04/22 09:15 Ur Reducing Substances Not Reportable 01/31/22 22:49 Urine Bilirubin Negative (Negative) 02/04/22 09:15 Urine Ictotest Not Reportable 01/31/22 22:49 Urine Urobilinogen < 2.0 mg/dL (<2.0) 02/04/22 09:15 Ur Leukocyte Esterase Negative (Negative) 02/04/22 09:15 Urine WBC (Auto) 12.0 /HPF (0.0-6.0) H 02/04/22 09:15 Urine RBC (Auto) 107.0 /HPF (0.0-6.0) 02/04/22 09:15 U Epithel Cells (Auto) 1.0 /HPF (0-13.0) 02/04/22 09:15 Urine Bacteria (Auto) 1+ /HPF (Negative) 02/04/22 09:15 Urine Mucus Few /HPF 02/04/22 09:15 Urine Yeast (Budding) 2+ /HPF 02/04/22 09:15 Vancomycin Trough 28.6 ug/mL (5.0-20.0) H 02/05/22 Unknown Coronavirus (PCR) Negative (Negative) 02/02/22 10:44 SARS-CoV-2 (PCR) Negative (Negative) 02/01/22 08:50 HIV 1&2 Antibody Rapid Non react (Non React) 02/04/22 14:37 HIV P24 Antigen Non react (Non React) 02/04/22 14:37 Blood Type A POSITIVE 02/04/22 20:22 Antibody Screen Negative 02/04/22 20:22 Crossmatch See Detail 02/04/22 20:22 Microbiology: Microbiology 01/31/22 20:33 Peripheral/Venous Blood Culture - Final NO GROWTH AFTER 5 DAYS 01/31/22 20:33 Peripheral/Venous Blood Culture - Final NO GROWTH AFTER 5 DAYS 02/04/22 14:37 Peripheral/Venous Blood Culture - Preliminary NO GROWTH AFTER 24 HOURS 02/04/22 14:37 Peripheral/Venous Blood Culture - Preliminary NO GROWTH AFTER 24 HOURS 02/04/22 14:37 Peripheral/Venous Blood Fungal Culture - Preliminary Culture in Progress Gastelum/IV: Voiding Method External Female Catheter Active Medications - Current Medications Current Medications: Generic Name Dose Route Start Last Admin Trade Name Freq PRN Reason Stop Dose Admin Acetaminophen 650 mg 02/01/22 00:57 02/04/22 11:58 Acetaminophen 325 Mg Tab PO 650 mg Q4H PRN Administration Pain MILD(1-3)/Fever >100.5/ROSADO Albuterol 2.5 mg 02/01/22 00:57 Albuterol 2.5 Mg/3 Ml Nebu IH Q3HRT PRN Shortness Of Breath Amiodarone HCl 200 mg 02/06/22 12:00 Amiodarone 200 Mg Tab FEEDTUBE BID JAMIL Lipase/Protease/Amylase 1 each 02/02/22 08:08 Lipase 10,500/Protease 25,000/Amylase 43,750 (Units) Dr Avelar FEEDTUBE PRN PRN For Clogged Feeding Tube Atorvastatin Calcium 20 mg 02/03/22 22:00 02/05/22 21:10 Atorvastatin 20 Mg Tab FEEDTUBE 20 mg QHS JAMIL Administration Dextrose 50 ml 02/02/22 08:00 02/05/22 11:52 Dextrose 50% In Water (25gm) 50 Ml Syringe IV 25 ml Q30MIN PRN Administration Hypoglycemia Protocol Famotidine 20 mg 02/04/22 10:00 02/06/22 09:16 Famotidine 20 Mg Tab FEEDTUBE 20 mg BID JAMIL Administration Fentanyl 50 mcg 02/02/22 09:45 02/03/22 09:43 Fentanyl 100 Mcg/2 Ml Inj IV 50 mcg Q10MIN PRN Administration ANALGESIA Hydrophilic Ointment 1 applic 02/01/22 18:52 Lip Therapy Vaseline TP Q2HR PRN Dry Lips NORepinephrine/NS 8 MG-250 ML 8 mg in 250 mls @ 3.75 mls/hr 02/01/22 20:00 02/05/22 01:40 Norepinephrine/Ns 8 Mg-250 Ml (Double Conc) IV 0 mcg/min TITRATE JAMIL 0 mls/hr Titration Protocol 2 MCG/MIN Propofol 1,000 mg in 100 mls @ 1.429 mls/hr 02/01/22 19:17 02/04/22 15:07 Diprivan 10 Mg/Ml IV 0 mcg/kg/min TITR JAMIL 0 mls/hr Titration Protocol 5 MCG/KG/MIN Fentanyl Citrate 2,000 mcg in 100 mls @ 2.381 mls/hr 02/02/22 10:00 02/06/22 03:55 Fentanyl Drip Premix IV 4 mcg/kg/hr TITR JAMIL 9.525 mls/hr Administration Protocol 1 MCG/KG/HR Phenylephrine HCl 100 mg/ 100 mls @ 3 mls/hr 02/03/22 14:15 02/04/22 14:50 Sodium Chloride IV 0 mcg/min TITR JAMIL 0 mls/hr Titration Protocol 50 MCG/MIN Sodium Chloride 500 mls @ 5 mls/hr 02/04/22 03:00 02/04/22 04:04 Nacl 0.9% 500 Ml IV 5 mls/hr DIRECT JAMIL Administration Vasopressin 20 unit/ Sodium 101 mls @ 9.09 mls/hr 02/04/22 09:15 02/05/22 01:16 Chloride IV 0 units/min TITR JAMIL 0 mls/hr Titration Protocol 0.03 UNITS/MIN Ceftriaxone Sodium 2 gm in 100 mls @ 200 mls/hr 02/05/22 16:00 02/05/22 16:06 Rocephin/Ns 2 Gm/100 Ml IV 200 mls/hr Q24H JAMIL Administration Protocol Insulin Glargine 15 units 02/06/22 22:00 Insulin Glargine 100 Units/Ml SUB-Q QHS JAMIL Insulin Human Regular 0 units 02/02/22 18:00 02/06/22 06:26 Insulin Regular, Human 100 Units/1 Ml SUB-Q 4 units Q6H JAMIL Administration Protocol Multi-Ingred Cream/Lotion/Oil/Oint 1 applic 02/01/22 18:52 Mineral Oil/Petrolatum, White Ophth Oint 3.5 Gm OU Q4HR PRN Dry Eye(s) Ondansetron HCl 4 mg 02/01/22 00:57 Ondansetron 4 Mg/2 Ml Inj IV Q8H PRN Nausea And Vomiting Senna/Docusate Sodium 1 tab 02/02/22 22:00 02/05/22 21:10 Sennosides/Docusate Sodium 8.6/50 Mg Tab FEEDTUBE 1 tab QHS JAMIL Administration Simple Syrup 15 ml 02/02/22 08:08 Simple Syrup 15 Ml FEEDTUBE PRN PRN Hypoglycemia Simple Syrup 30 ml 02/02/22 08:08 Simple Syrup 15 Ml FEEDTUBE PRN PRN Hypoglycemia Sodium Bicarbonate 325 mg 02/02/22 08:08 Sodium Bicarbonate 325 Mg Tab FEEDTUBE PRN PRN For Clogged Feeding Tube Sodium Chloride 10 ml 02/01/22 10:00 02/06/22 09:16 Sodium Chloride 0.9% 10 Ml Flush Syringe IV 10 ml BID JAMIL Administration Sodium Chloride 10 ml 02/01/22 00:57 Sodium Chloride 0.9% 10 Ml Flush Syringe IV PRN PRN LINE FLUSH Nutrition/Malnutrition Assess - Dietary Evaluation Nutrition/Malnutrition Findings: Nutrition Notes Start: 02/01/22 17:50 Freq: Status: Active Protocol: Document 02/06/22 09:48 JACQUELINE (Rec: 02/06/22 10:15 JACQUELINE [id number]) Nutrition Notes Initial or Follow up Brief Note Current Diagnosis Diabetes,Sepsis,Respiratory Failure Other Pertinent Diagnosis s/p DKA, s/p PEA Arrest, Pneumonia, Pyuria, Pancytopenia, UTI, ... Current Diet TF-Glucerna 1.2 [place] @ 55 ml/hr (since L 02/04). Labs/Tests 02/06: Na 146, K 3.4, CO2 31, BUN 21, Glu 230. Pertinent Medications 02/06: Humulin R 4U, KCl 10mEq , others nutritionally unremarkable. Height 5 ft 4 in Weight 46.5 kg [place] Body Weight (kg) 54.54 BMI 17.6 Weight change and time frame 0.2 Kg body weight loss reported in 2 days. Weight Status Underweight Subjective/Other Information RD consult for TF tolerance/ continuation. TF continues as prescribed, and well tolerated, according to RN notes. 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 - END OF NOTE. Pt remains on Mechanical Ventilation, O2 saturation @ 96%, according to Physical Assessment History notes. Pt remains incontinent, according to Physical Assessment History notes. Percent of energy/protein needs met: Prescribed TF-Glucerna 1.2 [place] @ 55 ml/hr provides for energy/protein needs (1584 Kcal/79 g) during LOS, 97% Kcal; 100% AA. #1 Nutrition Diagnosis Inadequate oral intake Diagnosis Progress(for reassessment Continues documentation) Is patient on ventilator? Yes Is Patient Ambulatory and/or Out of Bed No REE-([facility]-confined to bed) 1235.112 Kcal/Kg value to use for calculation 35 Approximate Energy Requirements Using 1628 kcal/Kg Calculation Used for Recommendations Kcal/kg Additional Notes Protein: 1.2-2 g/Kg ABW; 56-93 g/day. Fluids: 1 ml/Kcal, or as per MD. Nutrition Intervention Nutrition Support: Continue TF-Glucerna 1.2 [place] @ 55 ml/hr. Flush: 250 ml water Q 4 hr while hypernatremia persists, resume to 100 ml when Na is WNL. Kcal 1,584 Protein (gm) 79 Carbohydrates (gm) 151 Fat (gm) 79 Fluid (mL) 1,063 Fiber (gm) 21 % RDI: 97% Kcal; 100% AA. Goal #1 Provide at least 75% of energy /protein needs through Enteral Feeding during LOS. Follow-Up By: 02/13/22 Additional Comments Continue monitoring TF tolerance, Mechanical Ventilation, Hypernatremia, and BM. <MELISSA WHITE - Last Filed: 02/07/22 07:31> Assessment and Plan Assessment and plan: I saw and evaluated the patient. I agree with the findings and the plan of care as documented in the Nurse Practitioner's~note, with the following corrections and additions. Hospitalist Physical - Constitutional Vitals: Temp Pulse Resp BP Pulse Ox 98.8 F 108 H 16 121/91 93 02/07/22 04:00 02/07/22 07:16 02/07/22 07:16 02/07/22 07:16 02/07/22 07:16 HEART Score - HEART Score Troponin: Troponin T < 0.010 ng/mL (0.00-0.029) 02/03/22 16:15 Results - Labs CBC & Chem 7: 02/07/22 04:12 02/07/22 04:12 Labs: Laboratory Last Values WBC 13.1 K/mm3 (4.5-11.0) H 02/07/22 04:12 RBC 4.25 M/mm3 (3.65-5.03) 02/07/22 04:12 Hgb 8.5 gm/dl (10.1-14.3) L 02/07/22 04:12 Hct 26.4 % (30.3-42.9) L 02/07/22 04:12 MCV 62 fl (79-97) L 02/07/22 04:12 MCH 20 pg (28-32) L 02/07/22 04:12 MCHC 32 % (30-34) 02/07/22 04:12 RDW 24.2 % (13.2-15.2) H 02/07/22 04:12 Plt Count 57 K/mm3 (140-440) L 02/07/22 04:12 Lymph % (Auto) Cutter Operator Brick 02/02/22 04:00 Add Manual Diff Complete 02/03/22 04:00 Total Counted 50 02/03/22 04:00 Seg Neutrophils % Cutter Operator Brick 02/02/22 04:00 Seg Neuts % (Manual) 76.0 % (40.0-70.0) H 02/03/22 04:00 Band Neutrophils % 18.0 % 02/03/22 04:00 Lymphocytes % (Manual) 2.0 % (13.4-35.0) L 02/03/22 04:00 Reactive Lymphs % (Man) 0 % 02/03/22 04:00 Monocytes % (Manual) 4.0 % (0.0-7.3) 02/03/22 04:00 Eosinophils % (Manual) 0 % (0.0-4.3) 02/03/22 04:00 Basophils % (Manual) 0 % (0.0-1.8) 02/03/22 04:00 Metamyelocytes % 0 % 02/03/22 04:00 Myelocytes % 0 % 02/03/22 04:00 Promyelocytes % 0 % 02/03/22 04:00 Blast Cells % 0 % 02/03/22 04:00 Nucleated RBC % 4.0 % (0.0-0.9) H 02/03/22 04:00 Seg Neutrophils # Man 2.8 K/mm3 (1.8-7.7) 02/03/22 04:00 Band Neutrophils # 0.7 K/mm3 02/03/22 04:00 Lymphocytes # (Manual) 0.1 K/mm3 (1.2-5.4) L 02/03/22 04:00 Abs React Lymphs (Man) 0.0 K/mm3 02/03/22 04:00 Monocytes # (Manual) 0.1 K/mm3 (0.0-0.8) 02/03/22 04:00 Eosinophils # (Manual) 0.0 K/mm3 (0.0-0.4) 02/03/22 04:00 Basophils # (Manual) 0.0 K/mm3 (0.0-0.1) 02/03/22 04:00 Metamyelocytes # 0.0 K/mm3 02/03/22 04:00 Myelocytes # 0.0 K/mm3 02/03/22 04:00 Promyelocytes # 0.0 K/mm3 02/03/22 04:00 Blast Cells # 0.0 K/mm3 02/03/22 04:00 WBC Morphology Not Reportable 02/03/22 04:00 Hypersegmented Neuts Not Reportable 02/03/22 04:00 Hyposegmented Neuts Not Reportable 02/03/22 04:00 Hypogranular Neuts Not Reportable 02/03/22 04:00 Smudge Cells Not Reportable 02/03/22 04:00 Toxic Granulation Not Reportable 02/03/22 04:00 Toxic Vacuolation Not Reportable 02/03/22 04:00 Dohle Bodies Few 02/03/22 04:00 Pelger-Huet Anomaly Not Reportable 02/03/22 04:00 Sung Rods Not Reportable 02/03/22 04:00 Platelet Estimate Consistent w auto 02/03/22 04:00 Clumped Platelets Not Reportable 02/03/22 04:00 Plt Clumps, EDTA Not Reportable 02/03/22 04:00 Large Platelets Not Reportable 02/03/22 04:00 Giant Platelets Not Reportable 02/03/22 04:00 Platelet Satelliting Not Reportable 02/03/22 04:00 Plt Morphology Comment Not Reportable 02/03/22 04:00 RBC Morphology Not Reportable 02/03/22 04:00 Dimorphic RBCs Not Reportable 02/03/22 04:00 Polychromasia Not Reportable 02/03/22 04:00 Hypochromasia 3+ 02/03/22 04:00 Poikilocytosis 2+ 02/03/22 04:00 Anisocytosis 1+ 02/03/22 04:00 Microcytosis 2+ 02/03/22 04:00 Macrocytosis Not Reportable 02/03/22 04:00 Spherocytes Not Reportable 02/03/22 04:00 Pappenheimer Bodies Not Reportable 02/03/22 04:00 Sickle Cells Not Reportable 02/03/22 04:00 Target Cells 1+ 02/03/22 04:00 Tear Drop Cells Few 02/03/22 04:00 Ovalocytes Few 02/03/22 04:00 Helmet Cells Not Reportable 02/03/22 04:00 Starr-Boissevain Bodies Not Reportable 02/03/22 04:00 Hanna Rings Not Reportable 02/03/22 04:00 Lesly Cells 1+ 02/03/22 04:00 Bite Cells Not Reportable 02/03/22 04:00 Crenated Cell Not Reportable 02/03/22 04:00 Elliptocytes Few 02/03/22 04:00 Acanthocytes (Spur) Not Reportable 02/03/22 04:00 Rouleaux Not Reportable 02/03/22 04:00 Hemoglobin C Crystals Not Reportable 02/03/22 04:00 Schistocytes Rare 02/03/22 04:00 Malaria parasites Not Reportable 02/03/22 04:00 Sven Bodies Not Reportable 02/03/22 04:00 Hem Pathologist Commnt No 02/03/22 04:00 PT 14.8 Sec. (12.2-14.9) 02/05/22 08:48 INR 1.02 (0.87-1.13) 02/05/22 08:48 APTT 34.4 Sec. (24.2-36.6) 02/05/22 08:48 Fibrinogen 795 mg/dl (211-480) H 02/05/22 08:48 ABG pH 7.474 pH Units (7.350-7.450) H 02/07/22 04:40 POC ABG pCO2 37.3 mmHg (32.0-48.0) 02/02/22 04:49 ABG pCO2 54.4 mm Hg 02/07/22 04:40 POC ABG pO2 79.9 mmHg (83-108) L 02/02/22 04:49 ABG pO2 62.1 mm Hg (80.0-90.0) L 02/07/22 04:40 POC ABG HCO3 30.3 02/02/22 04:49 ABG HCO3 39.1 mmol/L (20.0-26.0) H 02/07/22 04:40 ABG O2 Saturation 94.7 % (95.0-99.0) L 02/07/22 04:40 ABG O2 Content 11.3 (0.0-44) 02/07/22 04:40 POC ABG Base Excess 7.1 02/02/22 04:49 ABG Base Excess 13.9 mmol/L (-2.0-3.0) H 02/07/22 04:40 ABG Hemoglobin 8.6 gm/dl (12.0-16.0) L 02/07/22 04:40 ABG Oxyhemoglobin 96.0 (94-98) 02/02/22 04:49 ABG Carboxyhemoglobin 1.3 % (0.0-5.0) 02/07/22 04:40 ABG Methemoglobin 0.5 % (0.0-1.5) 02/07/22 04:40 ABG Sodium Not Reportable 02/02/22 04:49 ABG Potassium Not Reportable 02/02/22 04:49 ABG Chloride Not Reportable 02/02/22 04:49 ABG Glucose Not Reportable 02/02/22 04:49 Oxyhemoglobin 93.0 % (95.0-99.0) L 02/07/22 04:40 Carboxyhemoglobin 0.2 (0.5-1.5) L 02/02/22 04:49 FiO2 100 % 02/07/22 04:40 FiO2 % 60.0 02/02/22 04:49 Sodium 149 mmol/L (137-145) H 02/07/22 04:12 Potassium 3.1 mmol/L (3.6-5.0) L 02/07/22 04:12 Chloride 100.1 mmol/L (98-107) 02/07/22 04:12 Carbon Dioxide 38 mmol/L (22-30) H D 02/07/22 04:12 Anion Gap 14 mmol/L 02/07/22 04:12 BUN 23 mg/dL (7-17) H 02/07/22 04:12 Creatinine 0.9 mg/dL (0.6-1.2) 02/07/22 04:12 Estimated GFR > 60 ml/min 02/07/22 04:12 BUN/Creatinine Ratio 26 % 02/07/22 04:12 Glucose 298 mg/dL (65-100) H 02/07/22 04:12 POC Glucose 418 mg/dL (70-105) H 02/07/22 07:13 Hemoglobin A1c 11.1 % (4-6) H 02/01/22 12:54 Lactic Acid 2.50 mmol/L (0.7-2.0) H* 02/06/22 11:50 Calcium 8.7 mg/dL (8.4-10.2) 02/07/22 04:12 Phosphorus 2.10 mg/dL (2.5-4.5) L 02/07/22 04:12 Magnesium 2.00 mg/dL (1.7-2.3) 02/07/22 04:12 Total Bilirubin 0.30 mg/dL (0.1-1.2) 02/07/22 04:12 Direct Bilirubin < 0.2 mg/dL (0-0.2) 02/06/22 04:33 Indirect Bilirubin 0.0 mg/dL 02/06/22 04:33 AST 49 units/L (5-40) H 02/07/22 04:12 ALT 44 units/L (7-56) 02/07/22 04:12 Alkaline Phosphatase 248 units/L (35-129) H 02/07/22 04:12 Lactate Dehydrogenase 879 units/L (91-180) H 02/05/22 04:40 Troponin T < 0.010 ng/mL (0.00-0.029) 02/03/22 16:15 Total Protein 5.4 g/dL (6.3-8.2) L 02/07/22 04:12 Albumin 2.7 g/dL (3.9-5) L 02/07/22 04:12 Albumin/Globulin Ratio 1.0 % 02/07/22 04:12 Arterial Blood Glucose Not Reportable 02/02/22 04:49 Urine Color Yellow (Yellow) 02/04/22 09:15 Urine Turbidity Cloudy (Clear) 02/04/22 09:15 Urine pH 6.0 (5.0-7.0) 02/04/22 09:15 Ur Specific [place] 1.025 (1.003-1.030) 02/04/22 09:15 Urine Protein >500 mg/dL (Negative) 02/04/22 09:15 Urine Glucose (UA) Negative mg/dL (Negative) 02/04/22 09:15 Urine Ketones Negative mg/dL (Negative) 02/04/22 09:15 Urine Blood Large (Negative) A 02/04/22 09:15 Urine Nitrite Negative (Negative) 02/04/22 09:15 Ur Reducing Substances Not Reportable 01/31/22 22:49 Urine Bilirubin Negative (Negative) 02/04/22 09:15 Urine Ictotest Not Reportable 01/31/22 22:49 Urine Urobilinogen < 2.0 mg/dL (<2.0) 02/04/22 09:15 Ur Leukocyte Esterase Negative (Negative) 02/04/22 09:15 Urine WBC (Auto) 12.0 /HPF (0.0-6.0) H 02/04/22 09:15 Urine RBC (Auto) 107.0 /HPF (0.0-6.0) 02/04/22 09:15 U Epithel Cells (Auto) 1.0 /HPF (0-13.0) 02/04/22 09:15 Urine Bacteria (Auto) 1+ /HPF (Negative) 02/04/22 09:15 Urine Mucus Few /HPF 02/04/22 09:15 Urine Yeast (Budding) 2+ /HPF 02/04/22 09:15 Vancomycin Trough 28.6 ug/mL (5.0-20.0) H 02/05/22 Unknown Coronavirus (PCR) Negative (Negative) 02/02/22 10:44 SARS-CoV-2 (PCR) Negative (Negative) 02/01/22 08:50 HIV 1&2 Antibody Rapid Non react (Non React) 02/04/22 14:37 HIV P24 Antigen Non react (Non React) 02/04/22 14:37 Blood Type A POSITIVE 02/04/22 20:22 Antibody Screen Negative 02/04/22 20:22 Crossmatch See Detail 02/04/22 20:22 Microbiology: Microbiology 02/04/22 09:10 Bronchial Washings - Right Middle Lobe Respiratory Culture - Final 02/04/22 14:37 Peripheral/Venous Blood Culture - Preliminary NO GROWTH AFTER 48 HOURS 02/04/22 14:37 Peripheral/Venous Blood Culture - Preliminary NO GROWTH AFTER 48 HOURS 02/04/22 14:37 Peripheral/Venous Blood Fungal Culture - Preliminary Culture in Progress 02/04/22 09:15 Urine,Clean Catch Urine Culture - Preliminary NO GROWTH AFTER 24 HOURS 01/31/22 20:33 Peripheral/Venous Blood Culture - Final NO GROWTH AFTER 5 DAYS 01/31/22 20:33 Peripheral/Venous Blood Culture - Final NO GROWTH AFTER 5 DAYS Gastelum/IV: Voiding Method External Female Catheter Active Medications - Current Medications Current Medications: Generic Name Dose Route Start Last Admin Trade Name Freq PRN Reason Stop Dose Admin Acetaminophen 650 mg 02/01/22 00:57 02/04/22 11:58 Acetaminophen 325 Mg Tab PO 650 mg Q4H PRN Administration Pain MILD(1-3)/Fever >100.5/ROSADO Albuterol 2.5 mg 02/01/22 00:57 Albuterol 2.5 Mg/3 Ml Nebu IH Q3HRT PRN Shortness Of Breath Amiodarone HCl 200 mg 02/06/22 12:00 02/06/22 21:04 Amiodarone 200 Mg Tab FEEDTUBE 200 mg BID JAMIL Administration Lipase/Protease/Amylase 1 each 02/02/22 08:08 Lipase 10,500/Protease 25,000/Amylase 43,750 (Units) Dr Avelar FEEDTUBE PRN PRN For Clogged Feeding Tube Atorvastatin Calcium 20 mg 02/03/22 22:00 02/06/22 21:04 Atorvastatin 20 Mg Tab FEEDTUBE 20 mg QHS JAMIL Administration Dextrose 50 ml 02/02/22 08:00 02/05/22 11:52 Dextrose 50% In Water (25gm) 50 Ml Syringe IV 25 ml Q30MIN PRN Administration Hypoglycemia Protocol Famotidine 20 mg 02/04/22 10:00 02/06/22 21:04 Famotidine 20 Mg Tab FEEDTUBE 20 mg BID JAMIL Administration Fentanyl 50 mcg 02/02/22 09:45 02/03/22 09:43 Fentanyl 100 Mcg/2 Ml Inj IV 50 mcg Q10MIN PRN Administration ANALGESIA Hydrocortisone Sodium Succinate 100 mg 02/06/22 13:00 02/07/22 06:00 Hydrocortisone Sod Succ 100 Mg/2 Ml Vial IV 100 mg Q8HR JAMIL Administration Hydrophilic Ointment 1 applic 02/01/22 18:52 Lip Therapy Vaseline TP Q2HR PRN Dry Lips NORepinephrine/NS 8 MG-250 ML 8 mg in 250 mls @ 3.75 mls/hr 02/01/22 20:00 02/06/22 12:29 Norepinephrine/Ns 8 Mg-250 Ml (Double Conc) IV 0 mcg/min TITRATE JAMIL 0 mls/hr Titration Protocol 2 MCG/MIN Propofol 1,000 mg in 100 mls @ 1.429 mls/hr 02/01/22 19:17 02/04/22 15:07 Diprivan 10 Mg/Ml IV 0 mcg/kg/min TITR JAMIL 0 mls/hr Titration Protocol 5 MCG/KG/MIN Fentanyl Citrate 2,000 mcg in 100 mls @ 2.381 mls/hr 02/02/22 10:00 02/07/22 04:50 Fentanyl Drip Premix IV 4 mcg/kg/hr TITR JAMIL 9.525 mls/hr Administration Protocol 1 MCG/KG/HR Phenylephrine HCl 100 mg/ 100 mls @ 3 mls/hr 02/03/22 14:15 02/04/22 14:50 Sodium Chloride IV 0 mcg/min TITR JAMIL 0 mls/hr Titration Protocol 50 MCG/MIN Sodium Chloride 500 mls @ 5 mls/hr 02/04/22 03:00 02/04/22 04:04 Nacl 0.9% 500 Ml IV 5 mls/hr DIRECT JAMIL Administration Vasopressin 20 unit/ Sodium 101 mls @ 9.09 mls/hr 02/04/22 09:15 02/05/22 01:16 Chloride IV 0 units/min TITR JAMIL 0 mls/hr Titration Protocol 0.03 UNITS/MIN Ceftriaxone Sodium 2 gm in 100 mls @ 200 mls/hr 02/05/22 16:00 02/06/22 16:52 Rocephin/Ns 2 Gm/100 Ml IV 200 mls/hr Q24H JAMIL Administration Protocol Insulin Glargine 15 units 02/06/22 22:00 02/06/22 21:43 Insulin Glargine 100 Units/Ml SUB-Q 15 units QHS JAMIL Administration Insulin Human Regular 0 units 02/02/22 18:00 02/07/22 07:23 Insulin Regular, Human 100 Units/1 Ml SUB-Q 10 units Q6H JAMIL Administration Protocol Multi-Ingred Cream/Lotion/Oil/Oint 1 applic 02/01/22 18:52 Mineral Oil/Petrolatum, White Ophth Oint 3.5 Gm OU Q4HR PRN Dry Eye(s) Ondansetron HCl 4 mg 02/01/22 00:57 Ondansetron 4 Mg/2 Ml Inj IV Q8H PRN Nausea And Vomiting Senna/Docusate Sodium 1 tab 02/02/22 22:00 02/06/22 21:04 Sennosides/Docusate Sodium 8.6/50 Mg Tab FEEDTUBE 1 tab QHS JAMIL Administration Simple Syrup 15 ml 02/02/22 08:08 Simple Syrup 15 Ml FEEDTUBE PRN PRN Hypoglycemia Simple Syrup 30 ml 02/02/22 08:08 Simple Syrup 15 Ml FEEDTUBE PRN PRN Hypoglycemia Sodium Bicarbonate 325 mg 02/02/22 08:08 Sodium Bicarbonate 325 Mg Tab FEEDTUBE PRN PRN For Clogged Feeding Tube Sodium Chloride 10 ml 02/01/22 10:00 02/06/22 21:04 Sodium Chloride 0.9% 10 Ml Flush Syringe IV 10 ml BID JAMIL Administration Sodium Chloride 10 ml 02/01/22 00:57 Sodium Chloride 0.9% 10 Ml Flush Syringe IV PRN PRN LINE FLUSH Nutrition/Malnutrition Assess - Dietary Evaluation Nutrition/Malnutrition Findings: Nutrition Notes Start: 02/01/22 17:50 Freq: Status: Active Protocol: Document 02/06/22 09:48 JACQUELINE (Rec: 02/06/22 10:15 JACQUELINE [id number]) Nutrition Notes Initial or Follow up Brief Note Current Diagnosis Diabetes,Sepsis,Respiratory Failure Other Pertinent Diagnosis s/p DKA, s/p PEA Arrest, Pneumonia, Pyuria, Pancytopenia, UTI, ... Current Diet TF-Glucerna 1.2 [place] @ 55 ml/hr (since L 02/04). Labs/Tests 02/06: Na 146, K 3.4, CO2 31, BUN 21, Glu 230. Pertinent Medications 02/06: Humulin R 4U, KCl 10mEq , others nutritionally unremarkable. Height 5 ft 4 in Weight 46.5 kg [place] Body Weight (kg) 54.54 BMI 17.6 Weight change and time frame 0.2 Kg body weight loss reported in 2 days. Weight Status Underweight Subjective/Other Information RD consult for TF tolerance/ continuation. TF continues as prescribed, and well tolerated, according to RN notes. 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 - END OF NOTE. Pt remains on Mechanical Ventilation, O2 saturation @ 96%, according to Physical Assessment History notes. Pt remains incontinent, according to Physical Assessment History notes. Percent of energy/protein needs met: Prescribed TF-Glucerna 1.2 [place] @ 55 ml/hr provides for energy/protein needs (1584 Kcal/79 g) during LOS, 97% Kcal; 100% AA. #1 Nutrition Diagnosis Inadequate oral intake Diagnosis Progress(for reassessment Continues documentation) Is patient on ventilator? Yes Is Patient Ambulatory and/or Out of Bed No REE-([facility]-confined to bed) 1235.112 Kcal/Kg value to use for calculation 35 Approximate Energy Requirements Using 1628 kcal/Kg Calculation Used for Recommendations Kcal/kg Additional Notes Protein: 1.2-2 g/Kg ABW; 56-93 g/day. Fluids: 1 ml/Kcal, or as per MD. Nutrition Intervention Nutrition Support: Continue TF-Glucerna 1.2 [place] @ 55 ml/hr. Flush: 250 ml water Q 4 hr while hypernatremia persists, resume to 100 ml when Na is WNL. Kcal 1,584 Protein (gm) 79 Carbohydrates (gm) 151 Fat (gm) 79 Fluid (mL) 1,063 Fiber (gm) 21 % RDI: 97% Kcal; 100% AA. Goal #1 Provide at least 75% of energy /protein needs through Enteral Feeding during LOS. Follow-Up By: 02/13/22 Additional Comments Continue monitoring TF tolerance, Mechanical Ventilation, Hypernatremia, and BM.
[2022-02-06] MEDS: AMIODARONE 200 MG TAB FEEDTUBE SCH ×2 (11:32→21:04)
--- NOTE | 2022-02-06 11:59 | Progress Note ---
Assessment and Plan Patient is a 61-year-old female brought to the ED from a halfway due to altered mental status. Patient found to be in DKA and have cardiopulmonary S/p cardiopulmonary arrest Acute respiratory failure-pulmonology following DKA Sepsis-ID following SVT Hypotension [id number] following Echo 02/02/2022-EF 55 to 60%. Left ventricular diastolic function is normal. Right ventricular systolic function is mildly reduced. Left and right atria normal in size. No pericardial effusion Plan: Patient is s/p cardiopulmonary arrest however previous rhythm unknown/ suspected to be PEA Telemetry reviewed and sinus tach no further episodes of SVT Will convert to amiodarone 20 mg p.o. twice daily No BBs at this time due to hypotension Continue statin therapy Patient has normal EF on echo. Will consider ischemic eval once patient is stable Overall poor prognosis Patient seen in conjunction with Dr. Schuster who agrees with this plan of care 30 minutes of critical care time spending care and coordination of patient - Patient Problems (1) SVT (supraventricular tachycardia) Current Visit: Yes Status: Acute (2) Acute respiratory failure Current Visit: Yes Status: Acute Qualifiers: Respiratory failure complication: hypoxia Qualified Code(s): J96.01 - Acute respiratory failure with hypoxia (3) Cardiopulmonary arrest with successful resuscitation Current Visit: Yes Status: Acute (4) Hypotension Current Visit: Yes Status: Acute (5) Pancytopenia Current Visit: Yes Status: Acute (6) Sepsis Current Visit: Yes Status: Acute Subjective Date of service: 02/06/22 Principal diagnosis: DKA, s/p cardiopulmonary arrest Interval history: Patient remains intubated and sedated Sinus tach 100s no events on monitor Objective Vital Signs Temp Pulse Pulse Resp BP Pulse Ox 02/06/22 11:39 100.2 F H 02/06/22 11:27 109 H 86 02/06/22 11:00 100 H 20 97/65 84 02/06/22 10:46 101 H 24 103/70 86 02/06/22 10:30 101 H 24 103/70 85 02/06/22 10:16 101 H 22 102/66 92 02/06/22 10:00 99 H 28 H 102/66 91 02/06/22 09:46 99 H 17 93/64 93 02/06/22 09:30 99 H 21 93/64 92 02/06/22 09:16 101 H 19 96/70 86 02/06/22 09:00 101 H 16 96/70 87 02/06/22 08:46 99 H 19 91/64 90 02/06/22 08:30 99 H 17 91/64 88 02/06/22 08:16 102 H 18 95/63 88 02/06/22 08:00 98.2 F 103 H 103 H 16 95/63 95 02/06/22 07:59 103 H 95/63 95 02/06/22 07:46 103 H 16 94/61 94 02/06/22 07:30 103 H 20 94/61 94 02/06/22 07:16 105 H 19 93/65 93 02/06/22 07:00 106 H 16 93/65 94 02/06/22 06:46 105 H 24 97/68 90 02/06/22 06:30 105 H 16 97/68 90 02/06/22 06:16 104 H 17 89/62 91 02/06/22 06:00 105 H 19 89/62 92 02/06/22 05:46 104 H 16 106/71 91 02/06/22 05:30 107 H 18 106/71 90 02/06/22 05:15 107 H 18 98/65 93 02/06/22 05:00 107 H 17 98/65 91 02/06/22 04:46 106 H 14 93/66 89 02/06/22 04:35 107 H 93/66 90 02/06/22 04:30 106 H 14 93/66 86 02/06/22 04:16 77 20 127/79 82 L 02/06/22 04:00 99.1 F 109 H 100 H 26 H 94/63 88 02/06/22 03:45 109 H 16 94/63 92 02/06/22 03:30 109 H 21 96/58 92 02/06/22 03:15 109 H 15 101/68 92 02/06/22 03:00 106 H 14 93/66 95 02/06/22 02:45 107 H 17 97/57 93 02/06/22 02:30 107 H 14 94/62 94 02/06/22 02:15 106 H 14 95/65 94 02/06/22 02:00 106 H 14 97/62 93 02/06/22 01:45 104 H 14 95/59 94 02/06/22 01:30 105 H 12 94/65 94 02/06/22 01:15 104 H 13 100/65 93 02/06/22 01:00 101 H 11 L 99/63 94 02/06/22 00:45 103 H 11 L 91/64 95 02/06/22 00:30 102 H 12 93/65 94 02/06/22 00:15 102 H 12 90/57 96 02/06/22 00:05 101 H 97/52 95 02/06/22 00:00 98.2 F 101 H 100 H 11 L 98/60 92 02/05/22 23:45 102 H 13 94/66 99 02/05/22 23:30 99 H 12 93/62 100 02/05/22 23:15 96 H 13 96/64 99 02/05/22 23:02 102 H 12 90/55 94 02/05/22 23:00 102 H 12 90/55 94 02/05/22 22:45 102 H 11 L 95/60 93 02/05/22 22:30 102 H 12 95/54 96 02/05/22 22:15 100 H 12 90/60 95 02/05/22 22:00 100 H 11 L 92/59 94 02/05/22 21:45 100 H 10 L 98/62 95 02/05/22 21:30 103 H 10 L 101/65 92 02/05/22 21:15 105 H 16 97/65 02/05/22 21:00 106 H 15 87/69 94 02/05/22 20:45 105 H 11 L 93/62 95 02/05/22 20:30 105 H 12 88/62 99 02/05/22 20:15 107 H 14 96/65 98 02/05/22 20:00 101 H 108 H 12 102/70 99 02 19:46 98.5 F 02/05/22 19:45 103 H 13 102/70 02/05/22 19:34 105 H 96/55 97 02 19:30 98 H 11 L 101/59 02/05/22 19:15 108 H 10 L 91/61 92 02/05/22 19:00 104 H 11 L 86/58 99 02/05/22 18:45 103 H 16 94/61 02/05/22 18:30 104 H 10 L 89/58 97 02/05/22 18:15 104 H 11 L 95/65 98 02/05/22 18:00 102 H 12 97/67 100 02/05/22 17:45 104 H 11 L 87/45 98 02/05/22 17:30 101 H 13 96/65 100 02/05/22 17:15 107 H 15 82/55 02/05/22 17:00 101 H 12 80/54 99 02/05/22 16:45 98 H 12 87/51 100 02/05/22 16:30 108 H 14 102/69 99 02/05/22 16:15 110 H 12 96/59 100 02/05/22 16:00 98.4 F 105 H 106 H 10 L 85/60 100 02/05/22 15:59 107 H 98/69 100 02/05/22 15:45 106 H 11 L 93/64 100 02/05/22 15:30 105 H 13 88/60 100 02/05/22 15:15 107 H 11 L 98/69 100 02/05/22 15:00 107 H 12 97/67 02/05/22 14:45 106 H 12 96/62 100 02/05/22 14:30 107 H 15 100/68 100 02/05/22 14:15 112 H 12 93/66 99 02/05/22 14:00 112 H 11 L 91/63 100 02/05/22 13:45 118 H 12 91/58 100 02/05/22 13:30 111 H 12 98/65 100 02/05/22 13:15 114 H 9 L 100/73 93 02/05/22 13:00 115 H 14 101/71 02/05/22 12:45 116 H 13 105/67 99 02/05/22 12:30 115 H 14 112/75 100 02/05/22 12:15 116 H 13 107/68 02/05/22 12:00 118 H 118 H 15 97/70 99 02/05/22 11:59 99.7 F H - Physical Examination General: Other (Intubated and sedated) HEENT: Positive: Normocephaly, Mucus Membranes Moist Neck: Positive: neck supple, trachea midline Cardiac: Positive: Regular Rhythm, Tachycardia Lungs: Positive: Ventilated Respirations Neuro: Positive: Other (Sedated, intubated and mechanically ventilated.) Abdomen: Positive: Soft, Active Bowel Sounds Skin: Negative: Rash Musculoskeletal: No Fluid Collection Extremities: Absent: edema - Labs and Meds Cardiac Enzymes 02/06/22 Range/Units 04:33 AST 70 H (5-40) units/L CBC 02/06/22 Range/Units 04:33 WBC 8.3 (4.5-11.0) K/mm3 RBC 4.10 (3.65-5.03) M/mm3 Hgb 8.4 L (10.1-14.3) gm/dl Hct 26.1 L (30.3-42.9) % Plt Count 38 L (140-440) K/mm3 Comprehensive Metabolic Panel 02/06/22 Range/Units 04:33 Sodium 146 H (137-145) mmol/L Potassium 3.4 L (3.6-5.0) mmol/L Chloride 104.5 (98-107) mmol/L Carbon Dioxide 31 H (22-30) mmol/L BUN 21 H (7-17) mg/dL Creatinine 0.9 (0.6-1.2) mg/dL Glucose 230 H (65-100) mg/dL Calcium 8.5 (8.4-10.2) mg/dL Direct Bilirubin < 0.2 (0-0.2) mg/dL Indirect Bilirubin 0.0 mg/dL AST 70 H (5-40) units/L ALT 53 (7-56) units/L Alkaline Phosphatase 197 H (35-129) units/L Total Protein 5.3 L (6.3-8.2) g/dL Albumin 2.4 L (3.9-5) g/dL - Imaging and Cardiology Echo: report reviewed - Telemetry EKG Rhythm: Sinus Tachycardia - EKG Sinus rhythms and dysrhythmias: sinus tachycardia Myocardial infarction: septal [place] (old age or ind
[2022-02-06] MEDS: NORepinephrine/NS 8 MG-250 ML 8 MG/250 ML INFUS..BTL IV SCH (12:24)
[2022-02-06 12:39] LABS: ABG Base Excess 8.8 mmol/L (-2.0-3.0); ABG HCO3 36.7 mmol/L (20.0-26.0); ABG Methemoglobin 0.6 % (0.0-1.5); ABG Oxygen Saturation 74.9 % (95.0-99.0); ABG PCO2 76.6 mm Hg; ABG PH 7.298 pH Units (7.350-7.450); ABG PO2 43.3 mm Hg (80.0-90.0)
[2022-02-06] MEDS: HYDROCORTISONE SOD SUCC 100 MG/2 ML VIAL IV SCH ×2 (12:39→21:04)
[2022-02-06] MEDS ORDERED: SODIUM BICARB 8.4% 50 MEQ/50 ML SYRINGE IV ONE (13:00)
--- NOTE | 2022-02-06 15:20 | Hem/Onc Progress Note ---
Subjective Date of service: 02/06/22 Interval history: Heme Progress Note Seen via [facility] CPT 49021 Dx pancytopenia 61yo female who resides in [facility], presented with AMS and hypoglycemia Pmhx of diabetes mellitus, dementia (possibly Wernickes per daughter), hyperlipidemia, and hypertension. In the ED patient was found to be tachycardic, tachypneic and lab work showed hyperkalemia, hyperchloremia, high anion gap metabolic acidosis with leukocytosis. UA showed pyuria. Cardiac arrest on 02/01/22, now remains intubated and on multiple pressors Has been spiking intermittent fevers on broad-spectrum antibiotics: Cefepime and vancomycin. Infectious diseases following. Chest x-ray shows diffuse bilateral airspace opacities. DVT scan negative. Completed bronchoscopy with washing of the right middle lobe on 02/04/22. Hematology following for pancytopenia. Patient examined at bedside, intubated and sedated. Decompensated today with low oxygenation and bradycardia. Back on pressors and high mechanical vent requirements. Blood cultures negative so far, but noted with worsening bilateral pneumonia; continues on ceftriaxone. No bleeding noted or reported. GOC discussion held with patient's daughter and sister, they voiced that "if patient was able to speak for herself she would want all lifesaving measures, including CPR and medications if her heart stop." Patient remains a FULL code status at This time. DATA REVIEWED BELOW IMP: Thrombocytopenia likely secondary to sepsis and liver dysfunction -Doubt HIT, no reports of Heparin/Lovenox use -Vancomycin-induced thrombocytopenia is also possible Doubt heme malignancy, WBC differential indicative of underlying liver dysfunction and sepsis Septic shock, cardiac arrest S/p PEA cardiac arrest 02/01 Metabolic acidosis, DKA Rapid HIV negative PLAN: Monitor CBC Recommend Solu medrol 1mg/kg IV Q12 Monitor for signs or symptoms of bleeding Standing orders: -Transfuse 1 unit pRBC whenever hct <23 -Transfuse 1 dose of plts whenever plt count <20 Appreciate consultants recommendations End of life discussion is appropriate from heme perspective Laboratory Last Values WBC 8.3 K/mm3 (4.5-11.0) 02/06/22 04:33 Hgb 8.4 gm/dl (10.1-14.3) L 02/06/22 04:33 Hct 26.1 % (30.3-42.9) L 02/06/22 04:33 MCV 64 fl (79-97) L 02/06/22 04:33 Plt Count 38 K/mm3 (140-440) L 02/06/22 04:33 Seg Neuts % (Manual) 76.0 % (40.0-70.0) H 02/03/22 04:00 Lymphocytes % (Manual) 2.0 % (13.4-35.0) L 02/03/22 04:00 Lymphocytes # (Manual) 0.1 K/mm3 (1.2-5.4) L 02/03/22 04:00 PT 14.8 Sec. (12.2-14.9) 02/05/22 08:48 INR 1.02 (0.87-1.13) 02/05/22 08:48 APTT 34.4 Sec. (24.2-36.6) 02/05/22 08:48 Fibrinogen 795 mg/dl (211-480) H 02/05/22 08:48 Creatinine 0.9 mg/dL (0.6-1.2) 02/06/22 04:33 AST 70 units/L (5-40) H 02/06/22 04:33 ALT 53 units/L (7-56) 02/06/22 04:33 Alkaline Phosphatase 197 units/L (35-129) H 02/06/22 04:33 Lactate Dehydrogenase 879 units/L (91-180) H 02/05/22 04:40 Coronavirus (PCR) Negative (Negative) 02/02/22 10:44 SARS-CoV-2 (PCR) Negative (Negative) 02/01/22 08:50 HIV 1&2 Antibody Rapid Non react (Non React) 02/04/22 14:37 HIV P24 Antigen Non react (Non React) 02/04/22 14:37 Blood Type A POSITIVE 02/04/22 20:22 Antibody Screen Negative 02/04/22 20:22 Crossmatch See Detail 02/04/22 20:22 Objective - Constitutional Vitals: Last Vital Signs Temp 100.2 F H 02/06/22 11:39 Pulse 110 H 02/06/22 14:15 Resp 30 H 02/06/22 14:15 BP 101/66 02/06/22 14:15 Pulse Ox 91 02/06/22 14:15 - Labs Lab Results: Laboratory Results - last 24 hr 02/05/22 02/05/22 02/06/22 17:45 23:59 04:33 WBC 8.3 RBC 4.10 Hgb 8.4 L Hct 26.1 L MCV 64 L MCH 21 L MCHC 32 RDW 26.2 H Plt Count 38 L ABG pH ABG pCO2 ABG pO2 ABG HCO3 ABG O2 Saturation ABG O2 Content ABG Base Excess ABG Hemoglobin ABG Carboxyhemoglobin ABG Methemoglobin Oxyhemoglobin FiO2 Sodium Potassium Chloride Carbon Dioxide Anion Gap BUN Creatinine Estimated GFR BUN/Creatinine Ratio Glucose POC Glucose 133 H 275 H Lactic Acid Calcium Total Bilirubin Direct Bilirubin Indirect Bilirubin AST ALT Alkaline Phosphatase Total Protein Albumin Albumin/Globulin Ratio 02/06/22 02/06/22 02/06/22 04:33 04:33 04:50 WBC RBC Hgb Hct MCV MCH MCHC RDW Plt Count ABG pH 7.330 L ABG pCO2 60.6 ABG pO2 57.9 L ABG HCO3 31.3 H ABG O2 Saturation 89.6 L ABG O2 Content 10.0 ABG Base Excess 4.5 H ABG Hemoglobin 8.1 L ABG Carboxyhemoglobin 1.6 ABG Methemoglobin 0.5 Oxyhemoglobin 87.7 L FiO2 100 Sodium 146 H Potassium 3.4 L Chloride 104.5 Carbon Dioxide 31 H Anion Gap 14 BUN 21 H Creatinine 0.9 Estimated GFR > 60 BUN/Creatinine Ratio 23 Glucose 230 H POC Glucose Lactic Acid 3.10 H* Calcium 8.5 Total Bilirubin 0.20 Direct Bilirubin < 0.2 Indirect Bilirubin 0.0 AST 70 H ALT 53 Alkaline Phosphatase 197 H Total Protein 5.3 L Albumin 2.4 L Albumin/Globulin Ratio 0.8 02/06/22 02/06/22 02/06/22 06:19 11:24 11:50 WBC RBC Hgb Hct MCV MCH MCHC RDW Plt Count ABG pH ABG pCO2 ABG pO2 ABG HCO3 ABG O2 Saturation ABG O2 Content ABG Base Excess ABG Hemoglobin ABG Carboxyhemoglobin ABG Methemoglobin Oxyhemoglobin FiO2 Sodium Potassium Chloride Carbon Dioxide Anion Gap BUN Creatinine Estimated GFR BUN/Creatinine Ratio Glucose POC Glucose 219 H 118 H Lactic Acid 2.50 H* Calcium Total Bilirubin Direct Bilirubin Indirect Bilirubin AST ALT Alkaline Phosphatase Total Protein Albumin Albumin/Globulin Ratio 02/06/22 12:26 WBC RBC Hgb Hct MCV MCH MCHC RDW Plt Count ABG pH 7.298 L ABG pCO2 76.6 ABG pO2 43.3 L ABG HCO3 36.7 H ABG O2 Saturation 74.9 L ABG O2 Content 8.5 ABG Base Excess 8.8 H ABG Hemoglobin 8.2 L ABG Carboxyhemoglobin 1.5 ABG Methemoglobin 0.6 Oxyhemoglobin 73.3 L FiO2 100 Sodium Potassium Chloride Carbon Dioxide Anion Gap BUN Creatinine Estimated GFR BUN/Creatinine Ratio Glucose POC Glucose Lactic Acid Calcium Total Bilirubin Direct Bilirubin Indirect Bilirubin AST ALT Alkaline Phosphatase Total Protein Albumin Albumin/Globulin Ratio Medications & Allergies - Medications Allergies/Adverse Reactions: Allergies No Known Allergies Allergy (Verified 01/31/22 17:55) Home Medications: Home Medications Medication Instructions Recorded Confirmed Last Taken Type Ergocalciferol [Vitamin D2] 1 cap PO QWEEK 02/02/22 02/02/22 Unknown History Famotidine [Pepcid] 20 mg PO DAILY 02/02/22 02/02/22 Unknown History Insulin Glargine [Lantus VIAL] 5 unit SUB-Q BID 02/02/22 02/02/22 Unknown History Loratadine [Claritin] 10 mg PO DAILY 02/02/22 02/02/22 Unknown History Mirtazapine [Remeron] 15 mg PO HS 02/02/22 02/02/22 Unknown History Rosuvastatin Calcium [Crestor] 10 mg PO HS 02/02/22 02/02/22 Unknown History carvediloL [Coreg] 3.125 mg PO BID 02/02/22 02/02/22 Unknown History Active Medications: Generic Name Dose Route Start Last Admin Trade Name Maria Luisa PRN Reason Stop Dose Admin Acetaminophen 650 mg 02/01/22 00:57 02/04/22 11:58 Acetaminophen 325 Mg Tab PO 650 mg Q4H PRN Administration Pain MILD(1-3)/Fever >100.5/ROSADO Albuterol 2.5 mg 02/01/22 00:57 Albuterol 2.5 Mg/3 Ml Nebu IH Q3HRT PRN Shortness Of Breath Amiodarone HCl 200 mg 02/06/22 12:00 02/06/22 11:32 Amiodarone 200 Mg Tab FEEDTUBE 200 mg BID JAMIL Administration Lipase/Protease/Amylase 1 each 02/02/22 08:08 Lipase 10,500/Protease 25,000/Amylase 43,750 (Units) Dr Cap FEEDTUBE PRN PRN For Clogged Feeding Tube Atorvastatin Calcium 20 mg 02/03/22 22:00 02/05/22 21:10 Atorvastatin 20 Mg Tab FEEDTUBE 20 mg QHS JAMIL Administration Dextrose 50 ml 02/02/22 08:00 02/05/22 11:52 Dextrose 50% In Water (25gm) 50 Ml Syringe IV 25 ml Q30MIN PRN Administration Hypoglycemia Protocol Famotidine 20 mg 02/04/22 10:00 02/06/22 09:16 Famotidine 20 Mg Tab FEEDTUBE 20 mg BID JAMIL Administration Fentanyl 50 mcg 02/02/22 09:45 02/03/22 09:43 Fentanyl 100 Mcg/2 Ml Inj IV 50 mcg Q10MIN PRN Administration ANALGESIA Hydrocortisone Sodium Succinate 100 mg 02/06/22 13:00 02/06/22 12:39 Hydrocortisone Sod Succ 100 Mg/2 Ml Vial IV 100 mg Q8HR JAMIL Administration Hydrophilic Ointment 1 applic 02/01/22 18:52 Lip Therapy Vaseline TP Q2HR PRN Dry Lips NORepinephrine/NS 8 MG-250 ML 8 mg in 250 mls @ 3.75 mls/hr 02/01/22 20:00 02/06/22 12:29 Norepinephrine/Ns 8 Mg-250 Ml (Double Conc) IV 0 mcg/min TITRATE JAMIL 0 mls/hr Titration Protocol 2 MCG/MIN Propofol 1,000 mg in 100 mls @ 1.429 mls/hr 02/01/22 19:17 02/04/22 15:07 Diprivan 10 Mg/Ml IV 0 mcg/kg/min TITR JAMIL 0 mls/hr Titration Protocol 5 MCG/KG/MIN Fentanyl Citrate 2,000 mcg in 100 mls @ 2.381 mls/hr 02/02/22 10:00 02/06/22 13:20 Fentanyl Drip Premix IV 2 mcg/kg/hr TITR JAMIL 4.763 mls/hr Titration Protocol 1 MCG/KG/HR Phenylephrine HCl 100 mg/ 100 mls @ 3 mls/hr 02/03/22 14:15 02/04/22 14:50 Sodium Chloride IV 0 mcg/min TITR JAMIL 0 mls/hr Titration Protocol 50 MCG/MIN Sodium Chloride 500 mls @ 5 mls/hr 02/04/22 03:00 08/01/22 04:04 Nacl 0.9% 500 Ml IV 5 mls/hr DIRECT JAMIL Administration Vasopressin 20 unit/ Sodium 101 mls @ 9.09 mls/hr 02/04/22 09:15 02/05/22 01:16 Chloride IV 0 units/min TITR JAMIL 0 mls/hr Titration Protocol 0.03 UNITS/MIN Ceftriaxone Sodium 2 gm in 100 mls @ 200 mls/hr 02/05/22 16:00 02/05/22 16:06 Rocephin/Ns 2 Gm/100 Ml IV 200 mls/hr Q24H JAMIL Administration Protocol Insulin Glargine 15 units 02/06/22 22:00 Insulin Glargine 100 Units/Ml SUB-Q QHS [facility] Insulin Human Regular 0 units 02/02/22 18:00 02/06/22 12:52 Insulin Regular, Human 100 Units/1 Ml SUB-Q Not Given Q6H [facility] Protocol Multi-Ingred Cream/Lotion/Oil/Oint 1 applic 02/01/22 18:52 Mineral Oil/Petrolatum, White Ophth Oint 3.5 Gm OU Q4HR PRN Dry Eye(s) Ondansetron HCl 4 mg 02/01/22 00:57 Ondansetron 4 Mg/2 Ml Inj IV Q8H PRN Nausea And Vomiting Senna/Docusate Sodium 1 tab 02/02/22 22:00 02/05/22 21:10 Sennosides/Docusate Sodium 8.6/50 Mg Tab FEEDTUBE 1 tab QHS JAMIL Administration Simple Syrup 15 ml 02/02/22 08:08 Simple Syrup 15 Ml FEEDTUBE PRN PRN Hypoglycemia Simple Syrup 30 ml 02/02/22 08:08 Simple Syrup 15 Ml FEEDTUBE PRN PRN Hypoglycemia Sodium Bicarbonate 325 mg 02/02/22 08:08 Sodium Bicarbonate 325 Mg Tab FEEDTUBE PRN PRN For Clogged Feeding Tube Sodium Chloride 10 ml 02/01/22 10:00 02/06/22 09:16 Sodium Chloride 0.9% 10 Ml Flush Syringe IV 10 ml BID JAMIL Administration Sodium Chloride 10 ml 02/01/22 00:57 Sodium Chloride 0.9% 10 Ml Flush Syringe IV PRN PRN LINE FLUSH
[2022-02-06] MEDS: cefTRIAXone/NS 2 GM/100 ML 2 GM/100 ML BAG IV SCH (16:52)
--- NOTE | 2022-02-06 18:11 | Progress Note ---
Assessment and Plan 02/06/22: Overall prognosis continues to worsen. She did respond to albumin and lasix with good urine output. Will give again tonight. Bronch results are negative and repeat cultures are negative. CXR continues to be consistent with ARDS. This could be AIP. Now on steroids so will see how she responds. Unfortunately I was not able to meet with the family today but plan to meet with them at 11 tomorrow. appreciate heme help. Given her response to steroids BP salazar, if this is truly acute interstitial pneumonitis, may consider pulse dose steroids. Will discuss with family risks of this as well. 02/05/22: Follow up bronch results. Appreciate ID assistance and changing of abx therapy. COntinue high PEEP and small TV. Ok with permissive hypercapnea as long as pH is >7.2. Follow up heme assessment. Has Kleib in tracheal aspirate. Follow up blood cultures. Will meet with family tomorrow. Overall prognosis is guarded to poor. 02/04/22: Repeat cultures this am while she is febrile. Bronched this am and wash taken from right middle lobe. Worsening CXR is likely related to the volume given yesterday. Will consult heme today as her numbers continue to worsen. Gram Negative Rods found in Tracheal aspirate from 02/01. Follow up speciation of this as well as bronch results. Will send for fungal cultures as well. Needs art line. Stop bob and change to vasopressin. Overall prognosis is very very guarded to poor. 02/03/22: Needs repeat culture with next fever spike. concern now that she is still spiking temps on broad spec abx. may need to broaden even more with antifungal but will discuss tomorrow with pharmacy tomorrow. pH is better but worsening hypoxemia. CXR shows bilateral infiltrates. Will consider bronch tomorrow for washing to be sent for culture. Consider Heme consult tomorrow. Echo was stable. Guarded to poor prognosis. Sugar is better today. 02/02/22: Wean Vasopressors as tolerated for maps >65. Check echo. Stop insulin therapy. Q1hour fSbs and cover with sliding scale. Repeat ABG later today to follow pH. May need some diamox later. Patient now neutropenic and thrombocytopenic, repeated CBC and still the same. may need to consider heme consult. For now continue broad spec abx therapy. prognosis is guarded to poor. 2 amps of NaBicarb pushed Started on Insulin drip Central line placement secondary to lack of access Aggressive volume resuscitation q1 hour fsbs and q6 hour BMPs for the next 36-48 hours Supplemental O2 Not a candidate for bipap currently given mental state so if her respiratory status deteriorates would need intubation. Guarded prognosis. Spoke with daughter briefly at bedside. She did not get off her cell phone so not able to have a full conversation with her about her mother. CCT 31 minutes. Subjective Date of service: 02/06/22 Principal diagnosis: DKA, s/p cardiopulmonary arrest Interval history: Brief episode of hypotension, bradycardia. Started on pressors and stress dose steroids, then weaned off. Remains on Fent. Still on 100% FiO2. Objective Vital Signs - 12hr 02/06/22 02/06/22 02/06/22 06:16 06:30 06:46 Temperature Pulse Rate 104 H 105 H 105 H Pulse Rate [ From Monitor] Respiratory 17 16 24 Rate Blood Pressure 89/62 97/68 97/68 O2 Sat by Pulse 91 90 90 Oximetry 02/06/22 02/06/22 02/06/22 07:00 07:16 07:30 Temperature Pulse Rate 106 H 105 H 103 H Pulse Rate [ From Monitor] Respiratory 16 19 20 Rate Blood Pressure 93/65 93/65 94/61 O2 Sat by Pulse 94 93 94 Oximetry 02/06/22 02/06/22 02/06/22 07:46 07:59 08:00 Temperature 98.2 F Pulse Rate 103 H 103 H 103 H Pulse Rate [ 103 H From Monitor] Respiratory 16 16 Rate Blood Pressure 94/61 95/63 95/63 O2 Sat by Pulse 94 95 95 Oximetry 02/06/22 02/06/22 02/06/22 08:16 08:30 08:46 Temperature Pulse Rate 102 H 99 H 99 H Pulse Rate [ From Monitor] Respiratory 18 17 19 Rate Blood Pressure 95/63 91/64 91/64 O2 Sat by Pulse 88 88 90 Oximetry 02/06/22 02/06/22 02/06/22 09:00 09:16 09:30 Temperature Pulse Rate 101 H 101 H 99 H Pulse Rate [ From Monitor] Respiratory 16 19 21 Rate Blood Pressure 96/70 96/70 93/64 O2 Sat by Pulse 87 86 92 Oximetry 02/06/22 02/06/22 02/06/22 09:46 10:00 10:16 Temperature Pulse Rate 99 H 99 H 101 H Pulse Rate [ From Monitor] Respiratory 17 28 H 22 Rate Blood Pressure 93/64 102/66 102/66 O2 Sat by Pulse 93 91 92 Oximetry 02/06/22 02/06/22 02/06/22 10:30 10:46 11:00 Temperature Pulse Rate 101 H 101 H 100 H Pulse Rate [ From Monitor] Respiratory 24 24 20 Rate Blood Pressure 103/70 103/70 97/65 O2 Sat by Pulse 85 86 84 Oximetry 02/06/22 02/06/22 02/06/22 11:16 11:27 11:30 Temperature Pulse Rate 98 H 109 H 100 H Pulse Rate [ From Monitor] Respiratory 16 15 Rate Blood Pressure 97/65 98/71 O2 Sat by Pulse 87 86 86 Oximetry 02/06/22 02/06/22 02/06/22 11:39 11:46 12:00 Temperature 100.2 F H Pulse Rate 101 H 101 H Pulse Rate [ 107 H From Monitor] Respiratory 32 H 31 H Rate Blood Pressure 98/71 93/65 O2 Sat by Pulse 88 83 L Oximetry 02/06/22 02/06/22 02/06/22 12:15 12:30 12:45 Temperature Pulse Rate 75 106 H 111 H Pulse Rate [ From Monitor] Respiratory 17 29 H 31 H Rate Blood Pressure 82/59 163/97 121/79 O2 Sat by Pulse 95 83 L 85 Oximetry 02/06/22 02/06/22 02/06/22 13:00 13:15 13:30 Temperature Pulse Rate 113 H 107 H 111 H Pulse Rate [ From Monitor] Respiratory 32 H 30 H 30 H Rate Blood Pressure 110/74 106/73 97/68 O2 Sat by Pulse 86 90 91 Oximetry 02/06/22 02/06/22 02/06/22 13:45 14:00 14:15 Temperature Pulse Rate 120 H 119 H 110 H Pulse Rate [ From Monitor] Respiratory 28 H 26 H 30 H Rate Blood Pressure 94/69 98/68 101/66 O2 Sat by Pulse 91 92 91 Oximetry 02/06/22 02/06/22 02/06/22 14:30 14:45 15:00 Temperature Pulse Rate 119 H 109 H 107 H Pulse Rate [ From Monitor] Respiratory 25 H 25 H 21 Rate Blood Pressure 97/70 95/64 88/62 O2 Sat by Pulse 93 93 95 Oximetry 02/06/22 02/06/22 02/06/22 15:15 15:30 15:45 Temperature Pulse Rate 104 H 105 H 103 H Pulse Rate [ From Monitor] Respiratory 25 H 25 H 22 Rate Blood Pressure 96/69 95/67 88/62 O2 Sat by Pulse 93 92 96 Oximetry 02/06/22 02/06/22 02/06/22 15:52 16:00 16:15 Temperature 100.4 F H Pulse Rate 104 H 103 H 104 H Pulse Rate [ 103 H From Monitor] Respiratory 24 31 H Rate Blood Pressure 88/62 95/68 O2 Sat by Pulse 94 91 Oximetry 02/06/22 02/06/22 02/06/22 16:30 16:45 17:00 Temperature Pulse Rate 103 H 103 H 101 H Pulse Rate [ From Monitor] Respiratory 25 H 23 24 Rate Blood Pressure 96/67 98/70 100/69 O2 Sat by Pulse 93 94 95 Oximetry CBC and BMP: 02/06/22 04:33 02/06/22 04:33 ABG, PT/INR, D-dimer: ABG ABG pH 7.298 pH Units (7.350-7.450) L 02/06/22 12:26 POC ABG pCO2 37.3 mmHg (32.0-48.0) 02/02/22 04:49 ABG pCO2 76.6 mm Hg 02/06/22 12:26 POC ABG pO2 79.9 mmHg (83-108) L 02/02/22 04:49 ABG pO2 43.3 mm Hg (80.0-90.0) L 02/06/22 12:26 POC ABG HCO3 30.3 02/02/22 04:49 ABG O2 Saturation 74.9 % (95.0-99.0) L 02/06/22 12:26 PT/INR, D-dimer PT 14.8 Sec. (12.2-14.9) 02/05/22 08:48 INR 1.02 (0.87-1.13) 02/05/22 08:48 Abnormal lab findings: Abnormal Labs 01/31/22 01/31/22 01/31/22 20:33 20:33 20:33 WBC 12.5 H RBC 6.16 H Hgb Hct MCV 61 L MCH 18 L RDW 19.6 H Plt Count Seg Neuts % (Manual) 98.0 H Lymphocytes % (Manual) 0 L Nucleated RBC % 2.0 H Seg Neutrophils # Man 12.3 H Lymphocytes # (Manual) 0.0 L Fibrinogen ABG pH POC ABG pO2 ABG pO2 ABG HCO3 ABG O2 Saturation ABG Base Excess ABG Hemoglobin Oxyhemoglobin Carboxyhemoglobin Sodium Potassium 5.6 H Chloride 110.1 H Carbon Dioxide 9 L* BUN Creatinine Glucose 254 H POC Glucose Hemoglobin A1c Lactic Acid 2.50 H* Calcium 10.8 H Phosphorus Magnesium Direct Bilirubin AST ALT Alkaline Phosphatase Lactate Dehydrogenase Total Protein Albumin Ur Specific [place] Urine Blood Urine WBC (Auto) Vancomycin Trough Crossmatch 01/31/22 02/01/22 02/01/22 22:49 07:34 08:22 WBC RBC Hgb Hct MCV MCH RDW Plt Count Seg Neuts % (Manual) Lymphocytes % (Manual) Nucleated RBC % Seg Neutrophils # Man Lymphocytes # (Manual) Fibrinogen ABG pH POC ABG pO2 ABG pO2 ABG HCO3 ABG O2 Saturation ABG Base Excess ABG Hemoglobin Oxyhemoglobin Carboxyhemoglobin Sodium Potassium 5.8 H Chloride 115.8 H Carbon Dioxide 3 L* BUN Creatinine Glucose 400 H POC Glucose 368 H Hemoglobin A1c Lactic Acid Calcium Phosphorus Magnesium Direct Bilirubin AST ALT Alkaline Phosphatase Lactate Dehydrogenase Total Protein Albumin Ur Specific [place] 1.035 H Urine Blood Small A Urine WBC (Auto) 142.0 H Vancomycin Trough Crossmatch 02/01/22 02/01/22 02/01/22 09:42 12:01 12:54 WBC RBC Hgb Hct MCV MCH RDW Plt Count Seg Neuts % (Manual) Lymphocytes % (Manual) Nucleated RBC % Seg Neutrophils # Man Lymphocytes # (Manual) Fibrinogen ABG pH 7.044 L* POC ABG pO2 ABG pO2 121.0 H ABG HCO3 3.7 L ABG O2 Saturation ABG Base Excess -24.8 L ABG Hemoglobin 9.3 L Oxyhemoglobin Carboxyhemoglobin Sodium Potassium Chloride Carbon Dioxide BUN Creatinine Glucose POC Glucose 382 H Hemoglobin A1c Lactic Acid Calcium Phosphorus 1.40 L Magnesium 1.30 L Direct Bilirubin AST ALT Alkaline Phosphatase Lactate Dehydrogenase Total Protein Albumin Ur Specific [place] Urine Blood Urine WBC (Auto) Vancomycin Trough Crossmatch 02/01/22 02/01/22 02/01/22 12:54 12:54 13:27 WBC RBC Hgb Hct MCV MCH RDW Plt Count Seg Neuts % (Manual) Lymphocytes % (Manual) Nucleated RBC % Seg Neutrophils # Man Lymphocytes # (Manual) Fibrinogen ABG pH POC ABG pO2 ABG pO2 ABG HCO3 ABG O2 Saturation ABG Base Excess ABG Hemoglobin Oxyhemoglobin Carboxyhemoglobin Sodium 148 H D Potassium 3.0 L D Chloride 117.3 H Carbon Dioxide 9 L* BUN Creatinine Glucose 439 H POC Glucose 342 H Hemoglobin A1c 11.1 H Lactic Acid Calcium 7.7 L Phosphorus Magnesium Direct Bilirubin AST ALT Alkaline Phosphatase Lactate Dehydrogenase Total Protein Albumin Ur Specific [place] Urine Blood Urine WBC (Auto) Vancomycin Trough Crossmatch 02/01/22 02/01/22 02/01/22 14:48 15:48 16:54 WBC RBC Hgb Hct MCV MCH RDW Plt Count Seg Neuts % (Manual) Lymphocytes % (Manual) Nucleated RBC % Seg Neutrophils # Man Lymphocytes # (Manual) Fibrinogen ABG pH POC ABG pO2 ABG pO2 ABG HCO3 ABG O2 Saturation ABG Base Excess ABG Hemoglobin Oxyhemoglobin Carboxyhemoglobin Sodium Potassium Chloride Carbon Dioxide BUN Creatinine Glucose POC Glucose 394 H 412 H 352 H Hemoglobin A1c Lactic Acid Calcium Phosphorus Magnesium Direct Bilirubin AST ALT Alkaline Phosphatase Lactate Dehydrogenase Total Protein Albumin Ur Specific [place] Urine Blood Urine WBC (Auto) Vancomycin Trough Crossmatch 02/01/22 02/01/22 02/01/22 18:23 18:53 19:26 WBC RBC Hgb Hct MCV MCH RDW Plt Count Seg Neuts % (Manual) Lymphocytes % (Manual) Nucleated RBC % Seg Neutrophils # Man Lymphocytes # (Manual) Fibrinogen ABG pH 7.331 L POC ABG pO2 ABG pO2 121.4 H ABG HCO3 ABG O2 Saturation ABG Base Excess -4.9 L ABG Hemoglobin 8.4 L Oxyhemoglobin Carboxyhemoglobin Sodium Potassium Chloride Carbon Dioxide BUN Creatinine Glucose POC Glucose 350 H 260 H Hemoglobin A1c Lactic Acid Calcium Phosphorus Magnesium Direct Bilirubin AST ALT Alkaline Phosphatase Lactate Dehydrogenase Total Protein Albumin Ur Specific [place] Urine Blood Urine WBC (Auto) Vancomycin Trough Crossmatch 02/01/22 02/01/22 02/01/22 20:20 21:38 22:41 WBC RBC Hgb Hct MCV MCH RDW Plt Count Seg Neuts % (Manual) Lymphocytes % (Manual) Nucleated RBC % Seg Neutrophils # Man Lymphocytes # (Manual) Fibrinogen ABG pH POC ABG pO2 ABG pO2 ABG HCO3 ABG O2 Saturation ABG Base Excess ABG Hemoglobin Oxyhemoglobin Carboxyhemoglobin Sodium Potassium Chloride Carbon Dioxide BUN Creatinine Glucose POC Glucose 266 H 195 H 150 H Hemoglobin A1c Lactic Acid Calcium Phosphorus Magnesium Direct Bilirubin AST ALT Alkaline Phosphatase Lactate Dehydrogenase Total Protein Albumin Ur Specific [place] Urine Blood Urine WBC (Auto) Vancomycin Trough Crossmatch 02/01/22 02/02/22 02/02/22 23:39 00:25 00:25 WBC RBC Hgb Hct MCV MCH RDW Plt Count Seg Neuts % (Manual) Lymphocytes % (Manual) Nucleated RBC % Seg Neutrophils # Man Lymphocytes # (Manual) Fibrinogen ABG pH POC ABG pO2 ABG pO2 ABG HCO3 ABG O2 Saturation ABG Base Excess ABG Hemoglobin Oxyhemoglobin Carboxyhemoglobin Sodium 156 H D Potassium 3.0 L Chloride 114.2 H Carbon Dioxide BUN Creatinine 0.5 L Glucose 63 L POC Glucose 125 H Hemoglobin A1c Lactic Acid 7.10 H* Calcium 8.1 L Phosphorus Magnesium Direct Bilirubin AST ALT Alkaline Phosphatase Lactate Dehydrogenase Total Protein Albumin Ur Specific [place] Urine Blood Urine WBC (Auto) Vancomycin Trough Crossmatch 02/02/22 02/02/22 02/02/22 04:00 04:00 04:35 WBC 1.4 L* RBC Hgb 8.5 L Hct 26.8 L D MCV 57 L MCH 18 L RDW 19.0 H Plt Count 129 L Seg Neuts % (Manual) 33.0 L Lymphocytes % (Manual) 57.0 H Nucleated RBC % Seg Neutrophils # Man 0.5 L Lymphocytes # (Manual) 0.8 L Fibrinogen ABG pH POC ABG pO2 ABG pO2 ABG HCO3 ABG O2 Saturation ABG Base Excess ABG Hemoglobin Oxyhemoglobin Carboxyhemoglobin Sodium 155 H Potassium Chloride 113.1 H Carbon Dioxide BUN Creatinine Glucose 159 H POC Glucose Hemoglobin A1c Lactic Acid 3.10 H* Calcium 7.6 L Phosphorus Magnesium Direct Bilirubin AST ALT Alkaline Phosphatase Lactate Dehydrogenase Total Protein Albumin Ur Specific [place] Urine Blood Urine WBC (Auto) Vancomycin Trough Crossmatch 02/02/22 02/02/22 02/02/22 04:37 04:49 05:43 WBC RBC Hgb Hct MCV MCH RDW Plt Count Seg Neuts % (Manual) Lymphocytes % (Manual) Nucleated RBC % Seg Neutrophils # Man Lymphocytes # (Manual) Fibrinogen ABG pH 7.528 H POC ABG pO2 79.9 L ABG pO2 ABG HCO3 ABG O2 Saturation ABG Base Excess ABG Hemoglobin 8.8 L Oxyhemoglobin Carboxyhemoglobin 0.2 L Sodium Potassium Chloride Carbon Dioxide BUN Creatinine Glucose POC Glucose 116 H 125 H Hemoglobin A1c Lactic Acid Calcium Phosphorus Magnesium Direct Bilirubin AST ALT Alkaline Phosphatase Lactate Dehydrogenase Total Protein Albumin Ur Specific [place] Urine Blood Urine WBC (Auto) Vancomycin Trough Crossmatch 02/02/22 02/02/22 02/02/22 06:52 09:02 09:05 WBC RBC Hgb Hct MCV MCH RDW Plt Count Seg Neuts % (Manual) Lymphocytes % (Manual) Nucleated RBC % Seg Neutrophils # Man Lymphocytes # (Manual) Fibrinogen ABG pH POC ABG pO2 ABG pO2 ABG HCO3 ABG O2 Saturation ABG Base Excess ABG Hemoglobin Oxyhemoglobin Carboxyhemoglobin Sodium 154 H Potassium 3.3 L Chloride 113.3 H Carbon Dioxide BUN Creatinine Glucose 35 L* POC Glucose 110 H 35 L Hemoglobin A1c Lactic Acid Calcium 7.4 L Phosphorus 1.70 L D Magnesium 2.50 H Direct Bilirubin AST ALT Alkaline Phosphatase Lactate Dehydrogenase Total Protein Albumin Ur Specific [place] Urine Blood Urine WBC (Auto) Vancomycin Trough Crossmatch 02/02/22 02/02/22 02/02/22 09:05 09:30 09:41 WBC 2.6 L RBC Hgb 8.0 L Hct 25.0 L MCV 57 L MCH 18 L RDW 18.8 H Plt Count 97 L Seg Neuts % (Manual) Lymphocytes % (Manual) 12.0 L Nucleated RBC % 10.0 H Seg Neutrophils # Man 1.7 L Lymphocytes # (Manual) 0.3 L Fibrinogen ABG pH POC ABG pO2 ABG pO2 ABG HCO3 ABG O2 Saturation ABG Base Excess ABG Hemoglobin Oxyhemoglobin Carboxyhemoglobin Sodium Potassium Chloride Carbon Dioxide BUN Creatinine Glucose POC Glucose 119 H Hemoglobin A1c Lactic Acid 7.10 H* Calcium Phosphorus Magnesium Direct Bilirubin AST ALT Alkaline Phosphatase Lactate Dehydrogenase Total Protein Albumin Ur Specific [place] Urine Blood Urine WBC (Auto) Vancomycin Trough Crossmatch 02/02/22 02/02/22 02/02/22 10:17 12:32 15:39 WBC RBC Hgb Hct MCV MCH RDW Plt Count Seg Neuts % (Manual) Lymphocytes % (Manual) Nucleated RBC % Seg Neutrophils # Man Lymphocytes # (Manual) Fibrinogen ABG pH POC ABG pO2 ABG pO2 ABG HCO3 ABG O2 Saturation ABG Base Excess ABG Hemoglobin Oxyhemoglobin Carboxyhemoglobin Sodium Potassium Chloride Carbon Dioxide BUN Creatinine Glucose POC Glucose 120 H 166 H 263 H Hemoglobin A1c Lactic Acid Calcium Phosphorus Magnesium Direct Bilirubin AST ALT Alkaline Phosphatase Lactate Dehydrogenase Total Protein Albumin Ur Specific [place] Urine Blood Urine WBC (Auto) Vancomycin Trough Crossmatch 02/02/22 02/02/22 02/02/22 17:07 17:50 Unknown WBC RBC Hgb Hct MCV MCH RDW Plt Count Seg Neuts % (Manual) Lymphocytes % (Manual) Nucleated RBC % Seg Neutrophils # Man Lymphocytes # (Manual) Fibrinogen ABG pH 7.457 H POC ABG pO2 ABG pO2 71.0 L ABG HCO3 ABG O2 Saturation 94.5 L ABG Base Excess ABG Hemoglobin 9.2 L Oxyhemoglobin 93.0 L Carboxyhemoglobin Sodium 147 H Potassium 5.5 H D Chloride 110.8 H Carbon Dioxide BUN Creatinine Glucose 271 H POC Glucose 231 H Hemoglobin A1c Lactic Acid Calcium 7.3 L Phosphorus Magnesium Direct Bilirubin AST ALT Alkaline Phosphatase Lactate Dehydrogenase Total Protein Albumin Ur Specific [place] Urine Blood Urine WBC (Auto) Vancomycin Trough Crossmatch 02/03/22 02/03/22 02/03/22 00:08 04:00 04:00 WBC 3.7 L RBC Hgb 8.0 L Hct 25.5 L MCV 58 L MCH 18 L RDW 18.2 H Plt Count 79 L Seg Neuts % (Manual) 76.0 H Lymphocytes % (Manual) 2.0 L Nucleated RBC % 4.0 H Seg Neutrophils # Man Lymphocytes # (Manual) 0.1 L Fibrinogen ABG pH POC ABG pO2 ABG pO2 ABG HCO3 ABG O2 Saturation ABG Base Excess ABG Hemoglobin Oxyhemoglobin Carboxyhemoglobin Sodium 147 H Potassium Chloride 112.9 H Carbon Dioxide BUN Creatinine Glucose 281 H POC Glucose 231 H Hemoglobin A1c Lactic Acid Calcium 7.8 L Phosphorus Magnesium Direct Bilirubin 0.3 H AST 172 H ALT 89 H Alkaline Phosphatase Lactate Dehydrogenase Total Protein 4.7 L D Albumin 2.0 L Ur Specific [place] Urine Blood Urine WBC (Auto) Vancomycin Trough Crossmatch 02/03/22 02/03/22 02/03/22 04:20 05:26 11:38 WBC RBC Hgb Hct MCV MCH RDW Plt Count Seg Neuts % (Manual) Lymphocytes % (Manual) Nucleated RBC % Seg Neutrophils # Man Lymphocytes # (Manual) Fibrinogen ABG pH POC ABG pO2 ABG pO2 75.5 L ABG HCO3 ABG O2 Saturation ABG Base Excess -2.8 L ABG Hemoglobin 8.1 L Oxyhemoglobin 94.6 L Carboxyhemoglobin Sodium Potassium Chloride Carbon Dioxide BUN Creatinine Glucose POC Glucose 247 H 196 H Hemoglobin A1c Lactic Acid Calcium Phosphorus Magnesium Direct Bilirubin AST ALT Alkaline Phosphatase Lactate Dehydrogenase Total Protein Albumin Ur Specific [place] Urine Blood Urine WBC (Auto) Vancomycin Trough Crossmatch 02/03/22 02/04/22 02/04/22 16:27 02:44 03:18 WBC 1.2 L* RBC Hgb 8.2 L Hct 26.6 L MCV 59 L MCH 18 L RDW 19.6 H Plt Count 50 L Seg Neuts % (Manual) Lymphocytes % (Manual) Nucleated RBC % Seg Neutrophils # Man Lymphocytes # (Manual) Fibrinogen ABG pH POC ABG pO2 ABG pO2 ABG HCO3 ABG O2 Saturation ABG Base Excess ABG Hemoglobin Oxyhemoglobin Carboxyhemoglobin Sodium 148 H Potassium Chloride 116.3 H Carbon Dioxide BUN Creatinine Glucose 139 H POC Glucose 119 H Hemoglobin A1c Lactic Acid Calcium Phosphorus Magnesium Direct Bilirubin 0.3 H AST 92 H ALT 76 H Alkaline Phosphatase Lactate Dehydrogenase Total Protein 4.7 L Albumin 1.6 L Ur Specific [place] Urine Blood Urine WBC (Auto) Vancomycin Trough Crossmatch 02/04/22 02/04/22 02/04/22 05:15 05:26 09:15 WBC RBC Hgb Hct MCV MCH RDW Plt Count Seg Neuts % (Manual) Lymphocytes % (Manual) Nucleated RBC % Seg Neutrophils # Man Lymphocytes # (Manual) Fibrinogen ABG pH 7.311 L POC ABG pO2 ABG pO2 50.1 L ABG HCO3 ABG O2 Saturation 83.6 L ABG Base Excess ABG Hemoglobin 8.6 L Oxyhemoglobin 81.9 L Carboxyhemoglobin Sodium Potassium Chloride Carbon Dioxide BUN Creatinine Glucose POC Glucose 115 H Hemoglobin A1c Lactic Acid Calcium Phosphorus Magnesium Direct Bilirubin AST ALT Alkaline Phosphatase Lactate Dehydrogenase Total Protein Albumin Ur Specific [place] Urine Blood Large A Urine WBC (Auto) 12.0 H Vancomycin Trough Crossmatch 02/04/22 02/04/22 02/04/22 11:17 14:37 17:04 WBC RBC Hgb Hct MCV MCH RDW Plt Count Seg Neuts % (Manual) Lymphocytes % (Manual) Nucleated RBC % Seg Neutrophils # Man Lymphocytes # (Manual) Fibrinogen ABG pH POC ABG pO2 ABG pO2 ABG HCO3 ABG O2 Saturation ABG Base Excess ABG Hemoglobin Oxyhemoglobin Carboxyhemoglobin Sodium Potassium Chloride Carbon Dioxide BUN Creatinine Glucose POC Glucose 166 H 109 H Hemoglobin A1c Lactic Acid Calcium Phosphorus Magnesium Direct Bilirubin AST 87 H ALT 75 H Alkaline Phosphatase 137 H Lactate Dehydrogenase Total Protein 4.6 L Albumin 1.7 L Ur Specific [place] Urine Blood Urine WBC (Auto) Vancomycin Trough Crossmatch 02/04/22 02/04/22 02/04/22 20:15 20:22 20:22 WBC RBC Hgb 7.1 L Hct 22.6 L MCV MCH RDW Plt Count Seg Neuts % (Manual) Lymphocytes % (Manual) Nucleated RBC % Seg Neutrophils # Man Lymphocytes # (Manual) Fibrinogen ABG pH 7.292 L POC ABG pO2 ABG pO2 40.3 L ABG HCO3 ABG O2 Saturation 72.1 L ABG Base Excess -2.2 L ABG Hemoglobin 7.0 L Oxyhemoglobin 70.5 L Carboxyhemoglobin Sodium Potassium Chloride Carbon Dioxide BUN Creatinine Glucose POC Glucose Hemoglobin A1c Lactic Acid 3.00 H* Calcium Phosphorus Magnesium Direct Bilirubin AST ALT Alkaline Phosphatase Lactate Dehydrogenase Total Protein Albumin Ur Specific [place] Urine Blood Urine WBC (Auto) Vancomycin Trough Crossmatch 02/04/22 02/04/22 02/05/22 20:22 23:03 04:40 WBC 3.1 L RBC Hgb 9.6 L Hct 30.1 L D MCV 64 L MCH 20 L RDW 26.9 H Plt Count 50 L Seg Neuts % (Manual) Lymphocytes % (Manual) Nucleated RBC % Seg Neutrophils # Man Lymphocytes # (Manual) Fibrinogen ABG pH POC ABG pO2 ABG pO2 ABG HCO3 ABG O2 Saturation ABG Base Excess ABG Hemoglobin Oxyhemoglobin Carboxyhemoglobin Sodium Potassium Chloride Carbon Dioxide BUN Creatinine Glucose POC Glucose 171 H Hemoglobin A1c Lactic Acid Calcium Phosphorus Magnesium Direct Bilirubin AST ALT Alkaline Phosphatase Lactate Dehydrogenase Total Protein Albumin Ur Specific [place] Urine Blood Urine WBC (Auto) Vancomycin Trough Crossmatch See Detail 02/05/22 02/05/22 02/05/22 04:40 04:40 04:43 WBC RBC Hgb Hct MCV MCH RDW Plt Count Seg Neuts % (Manual) Lymphocytes % (Manual) Nucleated RBC % Seg Neutrophils # Man Lymphocytes # (Manual) Fibrinogen ABG pH POC ABG pO2 ABG pO2 ABG HCO3 ABG O2 Saturation ABG Base Excess ABG Hemoglobin Oxyhemoglobin Carboxyhemoglobin Sodium 148 H Potassium Chloride 113.2 H Carbon Dioxide BUN 21 H Creatinine Glucose 155 H POC Glucose 156 H Hemoglobin A1c Lactic Acid Calcium Phosphorus Magnesium Direct Bilirubin AST 84 H ALT 67 H Alkaline Phosphatase 152 H Lactate Dehydrogenase 879 H Total Protein 5.0 L Albumin 1.8 L Ur Specific [place] Urine Blood Urine WBC (Auto) Vancomycin Trough Crossmatch 02/05/22 02/05/22 02/05/22 08:10 08:48 08:48 WBC RBC Hgb Hct MCV MCH RDW Plt Count Seg Neuts % (Manual) Lymphocytes % (Manual) Nucleated RBC % Seg Neutrophils # Man Lymphocytes # (Manual) Fibrinogen 795 H ABG pH POC ABG pO2 ABG pO2 57.1 L ABG HCO3 27.8 H ABG O2 Saturation 90.8 L ABG Base Excess ABG Hemoglobin 8.5 L Oxyhemoglobin 88.9 L Carboxyhemoglobin Sodium Potassium Chloride Carbon Dioxide BUN Creatinine Glucose POC Glucose Hemoglobin A1c Lactic Acid 2.90 H* Calcium Phosphorus Magnesium Direct Bilirubin AST ALT Alkaline Phosphatase Lactate Dehydrogenase Total Protein Albumin Ur Specific [place] Urine Blood Urine WBC (Auto) Vancomycin Trough Crossmatch 02/05/22 02/05/22 02/05/22 11:46 17:45 Unknown WBC RBC Hgb Hct MCV MCH RDW Plt Count Seg Neuts % (Manual) Lymphocytes % (Manual) Nucleated RBC % Seg Neutrophils # Man Lymphocytes # (Manual) Fibrinogen ABG pH POC ABG pO2 ABG pO2 ABG HCO3 ABG O2 Saturation ABG Base Excess ABG Hemoglobin Oxyhemoglobin Carboxyhemoglobin Sodium Potassium Chloride Carbon Dioxide BUN Creatinine Glucose POC Glucose 61 L 133 H Hemoglobin A1c Lactic Acid Calcium Phosphorus Magnesium Direct Bilirubin AST ALT Alkaline Phosphatase Lactate Dehydrogenase Total Protein Albumin Ur Specific [place] Urine Blood Urine WBC (Auto) Vancomycin Trough 28.6 H Crossmatch 02/05/22 02/06/22 02/06/22 23:59 04:33 04:33 WBC RBC Hgb 8.4 L Hct 26.1 L MCV 64 L MCH 21 L RDW 26.2 H Plt Count 38 L Seg Neuts % (Manual) Lymphocytes % (Manual) Nucleated RBC % Seg Neutrophils # Man Lymphocytes # (Manual) Fibrinogen ABG pH POC ABG pO2 ABG pO2 ABG HCO3 ABG O2 Saturation ABG Base Excess ABG Hemoglobin Oxyhemoglobin Carboxyhemoglobin Sodium 146 H Potassium 3.4 L Chloride Carbon Dioxide 31 H BUN 21 H Creatinine Glucose 230 H POC Glucose 275 H Hemoglobin A1c Lactic Acid Calcium Phosphorus Magnesium Direct Bilirubin AST 70 H ALT Alkaline Phosphatase 197 H Lactate Dehydrogenase Total Protein 5.3 L Albumin 2.4 L Ur Specific [place] Urine Blood Urine WBC (Auto) Vancomycin Trough Crossmatch 02/06/22 02/06/22 02/06/22 04:33 04:50 06:19 WBC RBC Hgb Hct MCV MCH RDW Plt Count Seg Neuts % (Manual) Lymphocytes % (Manual) Nucleated RBC % Seg Neutrophils # Man Lymphocytes # (Manual) Fibrinogen ABG pH 7.330 L POC ABG pO2 ABG pO2 57.9 L ABG HCO3 31.3 H ABG O2 Saturation 89.6 L ABG Base Excess 4.5 H ABG Hemoglobin 8.1 L Oxyhemoglobin 87.7 L Carboxyhemoglobin Sodium Potassium Chloride Carbon Dioxide BUN Creatinine Glucose POC Glucose 219 H Hemoglobin A1c Lactic Acid 3.10 H* Calcium Phosphorus Magnesium Direct Bilirubin AST ALT Alkaline Phosphatase Lactate Dehydrogenase Total Protein Albumin Ur Specific [place] Urine Blood Urine WBC (Auto) Vancomycin Trough Crossmatch 02/06/22 02/06/22 02/06/22 11:24 11:50 12:26 WBC RBC Hgb Hct MCV MCH RDW Plt Count Seg Neuts % (Manual) Lymphocytes % (Manual) Nucleated RBC % Seg Neutrophils # Man Lymphocytes # (Manual) Fibrinogen ABG pH 7.298 L POC ABG pO2 ABG pO2 43.3 L ABG HCO3 36.7 H ABG O2 Saturation 74.9 L ABG Base Excess 8.8 H ABG Hemoglobin 8.2 L Oxyhemoglobin 73.3 L Carboxyhemoglobin Sodium Potassium Chloride Carbon Dioxide BUN Creatinine Glucose POC Glucose 118 H Hemoglobin A1c Lactic Acid 2.50 H* Calcium Phosphorus Magnesium Direct Bilirubin AST ALT Alkaline Phosphatase Lactate Dehydrogenase Total Protein Albumin Ur Specific [place] Urine Blood Urine WBC (Auto) Vancomycin Trough Crossmatch 02/06/22 17:41 WBC RBC Hgb Hct MCV MCH RDW Plt Count Seg Neuts % (Manual) Lymphocytes % (Manual) Nucleated RBC % Seg Neutrophils # Man Lymphocytes # (Manual) Fibrinogen ABG pH POC ABG pO2 ABG pO2 ABG HCO3 ABG O2 Saturation ABG Base Excess ABG Hemoglobin Oxyhemoglobin Carboxyhemoglobin Sodium Potassium Chloride Carbon Dioxide BUN Creatinine Glucose POC Glucose 208 H Hemoglobin A1c Lactic Acid Calcium Phosphorus Magnesium Direct Bilirubin AST ALT Alkaline Phosphatase Lactate Dehydrogenase Total Protein Albumin Ur Specific [place] Urine Blood Urine WBC (Auto) Vancomycin Trough Crossmatch
[2022-02-06] MEDS ORDERED: ALBUMIN HUMAN 25% (12.5 GM/50 ML) INJ IV ONE (20:00)
[2022-02-06] MEDS ORDERED: FUROSEMIDE 40 MG/4 ML INJ IV ONE (20:00)
[2022-02-06] MEDS: SENNOSIDES/DOCUSATE SODIUM 8.6/50 MG TAB FEEDTUBE SCH (21:04)
[2022-02-06] MEDS ORDERED: INSULIN GLARGINE 100 UNITS/ML SUB-Q SCH ×2 (22:00)
[2022-02-07] MEDS: INSULIN REGULAR, HUMAN 100 UNITS/1 ML SUB-Q SCH ×5 (00:23→23:41)
--- NOTE | 2022-02-07 01:47 | XRay Report ---
CHEST 1 VIEW 02/07/2022 1:18 AM INDICATION / CLINICAL INFORMATION: follow up respiratory failure. COMPARISON: One view of the chest from 02/06/2022. FINDINGS: SUPPORT DEVICES: Unchanged. HEART / MEDIASTINUM: No significant abnormality. LUNGS / PLEURA: Bilateral airspace opacities have improved. No significant pleural effusion. No pneum othorax. ADDITIONAL FINDINGS: No significant additional findings. IMPRESSION: Improved aeration of the lungs. Signer Name: Chau Pham MD Signed: 02/07/2022 1:43 AM Workstation Name: [id number]
[2022-02-07 04:33] LABS: Hematocrit 26.4 % (30.3-42.9); Hemoglobin 8.5 gm/dl (10.1-14.3); Mean Corpuscular HGB Conc 32 % (30-34); Mean Corpuscular Volume 62 fl (79-97); Platelet Count 57 K/mm3 (140-440); Red Blood Count 4.25 M/mm3 (3.65-5.03); Red Cell Distribution Width 24.2 % (13.2-15.2)
[2022-02-07 04:49] LABS: Alanine Aminotransferase 44 units/L (7-56); Albumin 2.7 g/dL (3.9-5); BUN/Creatinine Ratio 26; Blood Urea Nitrogen 23 mg/dL (7-17); Calcium 8.7 mg/dL (8.4-10.2); Hemolysis Index 4
[2022-02-07] MEDS: fentaNYL DRIP Premix 2,000 MCG/100 ML BAG IV SCH ×2 (04:50→14:37)
[2022-02-07 04:54] LABS: ABG Base Excess 13.9 mmol/L (-2.0-3.0); ABG HCO3 39.1 mmol/L (20.0-26.0); ABG Methemoglobin 0.5 % (0.0-1.5); ABG Oxygen Saturation 94.7 % (95.0-99.0); ABG PCO2 54.4 mm Hg; ABG PH 7.474 pH Units (7.350-7.450); ABG PO2 62.1 mm Hg (80.0-90.0)
[2022-02-07] MEDS: HYDROCORTISONE SOD SUCC 100 MG/2 ML VIAL IV SCH ×3 (06:00→21:14)
[2022-02-07] MEDS ORDERED: INSULIN REGULAR, HUMAN 100 UNITS/1 ML SUB-Q SCH (08:30)
[2022-02-07] MEDS ORDERED: POTASSIUM CHLORIDE 20 MEQ PACKET FEEDTUBE SCH (09:00)
[2022-02-07] MEDS: K-PHOS NEUTRAL 250 MG TAB PO SCH ×3 (09:31→17:33)
[2022-02-07] MEDS: AMIODARONE 200 MG TAB FEEDTUBE SCH (09:31)
[2022-02-07] MEDS: FAMOTIDINE 20 MG TAB FEEDTUBE SCH ×2 (09:33→21:14)
[2022-02-07] MEDS: DOCUSATE SODIUM 100 MG/10 ML ORAL LIQD PO SCH ×2 (09:33→21:14)
[2022-02-07] MEDS: SENNOSIDES/DOCUSATE SODIUM 8.6/50 MG TAB PO SCH ×2 (09:33→21:14)
[2022-02-07] MEDS ORDERED: LORazepam 2 MG/ML VIAL IV SCH (10:15)
[2022-02-07] MEDS ORDERED: ALBUMIN HUMAN 25% (12.5 GM/50 ML) INJ IV SCH ×3 (11:00→21:00)
[2022-02-07] MEDS ORDERED: FUROSEMIDE 20 MG/2 ML INJ IV SCH ×2 (12:00→21:30)
--- NOTE | 2022-02-07 12:00 | Event Note ---
Date: 02/07/22 Family meeting with Daughter, two sisters, one of them via phone and cousin. Discussed overall clinical case. Family gave some background as to patient's health prior to admission here. All agree she was walking and talking. Able to communicate with them with no issues. There is a confirmed diagnosis of early onset dementia and brain atrophy but no direct reason why. They are assuming heavy ETOH abuse led to this after of a child and major depression. She was admitted to a [facility] in [place] prior to transfer to [place] so will review those records. For now they wish for patient to be full code with hopes of weaning off vent. If not able to they are on board with trach and peg placement if able to get to a stable enough status. Continue aggressive therapy for now but family well aware of the gravity of the situation and degree of illness that is present. Also reiterated the point the patient is extremely high risk for recurrent cardiac arrest.
--- NOTE | 2022-02-07 12:02 | Progress Note ---
Assessment and Plan 02/07/22: Family meeting today, please see my event note. albumin and lasix again this morning and then again tonight. Continue steroids. May need insulin drip. Guarded prognosis. 02/06/22: Overall prognosis continues to worsen. She did respond to albumin and lasix with good urine output. Will give again tonight. Bronch results are negative and repeat cultures are negative. CXR continues to be consistent with ARDS. This could be AIP. Now on steroids so will see how she responds. Unfortunately I was not able to meet with the family today but plan to meet with them at 11 tomorrow. appreciate heme help. Given her response to steroids BP salazar, if this is truly acute interstitial pneumonitis, may consider pulse dose steroids. Will discuss with family risks of this as well. 02/05/22: Follow up bronch results. Appreciate ID assistance and changing of abx therapy. COntinue high PEEP and small TV. Ok with permissive hypercapnea as long as pH is >7.2. Follow up heme assessment. Has Kleib in tracheal aspirate. Follow up blood cultures. Will meet with family tomorrow. Overall prognosis is guarded to poor. 02/04/22: Repeat cultures this am while she is febrile. Bronched this am and wash taken from right middle lobe. Worsening CXR is likely related to the volume given yesterday. Will consult heme today as her numbers continue to worsen. Gram Negative Rods found in Tracheal aspirate from 02/01. Follow up speciation of this as well as bronch results. Will send for fungal cultures as well. Needs art line. Stop bob and change to vasopressin. Overall prognosis is very very guarded to poor. 02/03/22: Needs repeat culture with next fever spike. concern now that she is still spiking temps on broad spec abx. may need to broaden even more with antifungal but will discuss tomorrow with pharmacy tomorrow. pH is better but worsening hypoxemia. CXR shows bilateral infiltrates. Will consider bronch t omorrow for washing to be sent for culture. Consider Heme consult tomorrow. Echo was stable. Guarded to poor prognosis. Sugar is better today. 02/02/22: Wean Vasopressors as tolerated for maps >65. Check echo. Stop insulin therapy. Q1hour fSbs and cover with sliding scale. Repeat ABG later today to follow pH. May need some diamox later. Patient now neutropenic and thrombocytopenic, repeated CBC and still the same. may need to consider heme consult. For now continue broad spec abx therapy. prognosis is guarded to poor. 2 amps of NaBicarb pushed Started on Insulin drip Central line placement secondary to lack of access Aggressive volume resuscitation q1 hour fsbs and q6 hour BMPs for the next 36-48 hours Supplemental O2 Not a candidate for bipap currently given mental state so if her respiratory status deteriorates would need intubation. Guarded prognosis. Spoke with daughter briefly at bedside. She did not get off her cell phone so not able to have a full conversation with her about her mother. CCT 31 minutes. Subjective Date of service: 02/07/22 Principal diagnosis: DKA, s/p cardiopulmonary arrest Interval history: CXR better, ABG better. Mental state has not improved. Off pressors. Objective Vital Signs - 12hr 02/07/22 02/07/22 02/07/22 00:15 00:27 00:30 Temperature Pulse Rate 101 H 104 H 101 H Pulse Rate [ From Monitor] Respiratory 16 22 Rate Blood Pressure 89/62 130/76 94/71 O2 Sat by Pulse 98 98 99 Oximetry 02/07/22 02/07/22 02/07/22 00:45 01:00 01:15 Temperature Pulse Rate 101 H 104 H 106 H Pulse Rate [ From Monitor] Respiratory 23 21 22 Rate Blood Pressure 102/70 108/76 117/78 O2 Sat by Pulse 100 100 99 Oximetry 02/07/22 02/07/22 02/07/22 01:30 01:45 02:00 Temperature Pulse Rate 106 H 107 H 104 H Pulse Rate [ From Monitor] Respiratory 22 28 H 20 Rate Blood Pressure 110/77 128/86 101/75 O2 Sat by Pulse 97 96 98 Oximetry 02/07/22 02/07/22 02/07/22 02:15 02:30 02:45 Temperature Pulse Rate 102 H 105 H 105 H Pulse Rate [ From Monitor] Respiratory 22 23 21 Rate Blood Pressure 100/67 100/67 108/79 O2 Sat by Pulse 98 96 95 Oximetry 02/07/22 02/07/22 02/07/22 03:00 03:15 03:30 Temperature Pulse Rate 103 H 103 H 102 H Pulse Rate [ From Monitor] Respiratory 25 H 21 22 Rate Blood Pressure 104/78 100/71 111/75 O2 Sat by Pulse 97 98 98 Oximetry 02/07/22 02/07/22 02/07/22 03:46 04:00 04:15 Temperature 98.8 F Pulse Rate 109 H 103 H 101 H Pulse Rate [ 102 H From Monitor] Respiratory 27 H 22 21 Rate Blood Pressure 151/80 111/79 107/78 O2 Sat by Pulse 96 100 Oximetry 02/07/22 02/07/22 02/07/22 04:30 04:45 04:54 Temperature Pulse Rate 104 H 104 H 102 H Pulse Rate [ From Monitor] Respiratory 19 21 Rate Blood Pressure 116/83 111/82 106/65 O2 Sat by Pulse 99 100 99 Oximetry 02/07/22 02/07/22 02/07/22 05:00 05:15 05:30 Temperature Pulse Rate 103 H 103 H 102 H Pulse Rate [ From Monitor] Respiratory 20 19 20 Rate Blood Pressure 104/78 112/81 105/75 O2 Sat by Pulse 99 100 97 Oximetry 02/07/22 02/07/22 02/07/22 05:45 06:00 06:15 Temperature Pulse Rate 100 H 103 H 102 H Pulse Rate [ From Monitor] Respiratory 17 21 22 Rate Blood Pressure 105/75 111/78 94/70 O2 Sat by Pulse 99 98 99 Oximetry 02/07/22 02/07/22 02/07/22 06:30 06:45 07:00 Temperature Pulse Rate 103 H 103 H 103 H Pulse Rate [ From Monitor] Respiratory 18 22 22 Rate Blood Pressure 94/70 94/76 99/69 O2 Sat by Pulse 95 91 98 Oximetry 02/07/22 02/07/22 02/07/22 07:16 07:30 07:45 Temperature Pulse Rate 108 H 104 H 109 H Pulse Rate [ From Monitor] Respiratory 16 23 19 Rate Blood Pressure 121/91 98/70 128/86 O2 Sat by Pulse 93 97 95 Oximetry 02/07/22 02/07/22 02/07/22 08:00 08:15 08:30 Temperature 99.1 F Pulse Rate 108 H 108 H 109 H Pulse Rate [ 104 H From Monitor] Respiratory 24 19 25 H Rate Blood Pressure 119/83 114/78 111/84 O2 Sat by Pulse 97 96 98 Oximetry 02/07/22 02/07/22 02/07/22 08:35 08:45 09:00 Temperature Pulse Rate 108 H 108 H 107 H Pulse Rate [ From Monitor] Respiratory 25 H 24 Rate Blood Pressure 111/84 106/74 100/75 O2 Sat by Pulse 95 96 96 Oximetry 02/07/22 02/07/22 02/07/22 09:15 09:30 09:45 Temperature Pulse Rate 109 H 110 H 107 H Pulse Rate [ From Monitor] Respiratory 27 H 26 H 26 H Rate Blood Pressure 107/80 108/84 106/80 O2 Sat by Pulse 96 95 93 Oximetry 02/07/22 02/07/22 02/07/22 10:00 10:16 10:30 Temperature Pulse Rate 110 H 110 H 109 H Pulse Rate [ From Monitor] Respiratory 32 H 34 H 29 H Rate Blood Pressure 106/80 134/86 125/79 O2 Sat by Pulse 97 98 100 Oximetry 02/07/22 02/07/22 02/07/22 10:45 11:00 11:16 Temperature Pulse Rate 110 H 110 H 107 H Pulse Rate [ From Monitor] Respiratory 32 H 27 H 26 H Rate Blood Pressure 134/82 112/78 93/67 O2 Sat by Pulse 100 100 100 Oximetry 02/07/22 11:30 Temperature Pulse Rate 106 H Pulse Rate [ From Monitor] Respiratory 25 H Rate Blood Pressure 97/68 O2 Sat by Pulse 100 Oximetry CBC and BMP: 02/07/22 04:12 02/07/22 04:12 ABG, PT/INR, D-dimer: ABG ABG pH 7.474 pH Units (7.350-7.450) H 02/07/22 04:40 POC ABG pCO2 37.3 mmHg (32.0-48.0) 02/02/22 04:49 ABG pCO2 54.4 mm Hg 02/07/22 04:40 POC ABG pO2 79.9 mmHg (83-108) L 02/02/22 04:49 ABG pO2 62.1 mm Hg (80.0-90.0) L 02/07/22 04:40 POC ABG HCO3 30.3 02/02/22 04:49 ABG O2 Saturation 94.7 % (95.0-99.0) L 02/07/22 04:40 PT/INR, D-dimer PT 14.8 Sec. (12.2-14.9) 02/05/22 08:48 INR 1.02 (0.87-1.13) 02/05/22 08:48 Abnormal lab findings: Abnormal Labs 01/31/22 01/31/22 01/31/22 20:33 20:33 20:33 WBC 12.5 H RBC 6.16 H Hgb Hct MCV 61 L MCH 18 L RDW 19.6 H Plt Count Seg Neuts % (Manual) 98.0 H Lymphocytes % (Manual) 0 L Nucleated RBC % 2.0 H Seg Neutrophils # Man 12.3 H Lymphocytes # (Manual) 0.0 L Fibrinogen ABG pH POC ABG pO2 ABG pO2 ABG HCO3 ABG O2 Saturation ABG Base Excess ABG Hemoglobin Oxyhemoglobin Carboxyhemoglobin Sodium Potassium 5.6 H Chloride 110.1 H Carbon Dioxide 9 L* BUN Creatinine Glucose 254 H POC Glucose Hemoglobin A1c Lactic Acid 2.50 H* Calcium 10.8 H Phosphorus Magnesium Direct Bilirubin AST ALT Alkaline Phosphatase Lactate Dehydrogenase Total Protein Albumin Ur Specific [place] Urine Blood Urine WBC (Auto) Vancomycin Trough Crossmatch 01/31/22 02/01/22 02/01/22 22:49 07:34 08:22 WBC RBC Hgb Hct MCV MCH RDW Plt Count Seg Neuts % (Manual) Lymphocytes % (Manual) Nucleated RBC % Seg Neutrophils # Man Lymphocytes # (Manual) Fibrinogen ABG pH POC ABG pO2 ABG pO2 ABG HCO3 ABG O2 Saturation ABG Base Excess ABG Hemoglobin Oxyhemoglobin Carboxyhemoglobin Sodium Potassium 5.8 H Chloride 115.8 H Carbon Dioxide 3 L* BUN Creatinine Glucose 400 H POC Glucose 368 H Hemoglobin A1c Lactic Acid Calcium Phosphorus Magnesium Direct Bilirubin AST ALT Alkaline Phosphatase Lactate Dehydrogenase Total Protein Albumin Ur Specific [place] 1.035 H Urine Blood Small A Urine WBC (Auto) 142.0 H Vancomycin Trough Crossmatch 02/01/22 02/01/22 02/01/22 09:42 12:01 12:54 WBC RBC Hgb Hct MCV MCH RDW Plt Count Seg Neuts % (Manual) Lymphocytes % (Manual) Nucleated RBC % Seg Neutrophils # Man Lymphocytes # (Manual) Fibrinogen ABG pH 7.044 L* POC ABG pO2 ABG pO2 121.0 H ABG HCO3 3.7 L ABG O2 Saturation ABG Base Excess -24.8 L ABG Hemoglobin 9.3 L Oxyhemoglobin Carboxyhemoglobin Sodium Potassium Chloride Carbon Dioxide BUN Creatinine Glucose POC Glucose 382 H Hemoglobin A1c Lactic Acid Calcium Phosphorus 1.40 L Magnesium 1.30 L Direct Bilirubin AST ALT Alkaline Phosphatase Lactate Dehydrogenase Total Protein Albumin Ur Specific [place] Urine Blood Urine WBC (Auto) Vancomycin Trough Crossmatch 02/01/22 02/01/22 02/01/22 12:54 12:54 13:27 WBC RBC Hgb Hct MCV MCH RDW Plt Count Seg Neuts % (Manual) Lymphocytes % (Manual) Nucleated RBC % Seg Neutrophils # Man Lymphocytes # (Manual) Fibrinogen ABG pH POC ABG pO2 ABG pO2 ABG HCO3 ABG O2 Saturation ABG Base Excess ABG Hemoglobin Oxyhemoglobin Carboxyhemoglobin Sodium 148 H D Potassium 3.0 L D Chloride 117.3 H Carbon Dioxide 9 L* BUN Creatinine Glucose 439 H POC Glucose 342 H Hemoglobin A1c 11.1 H Lactic Acid Calcium 7.7 L Phosphorus Magnesium Direct Bilirubin AST ALT Alkaline Phosphatase Lactate Dehydrogenase Total Protein Albumin Ur Specific [place] Urine Blood Urine WBC (Auto) Vancomycin Trough Crossmatch 02/01/22 02/01/22 02/01/22 14:48 15:48 16:54 WBC RBC Hgb Hct MCV MCH RDW Plt Count Seg Neuts % (Manual) Lymphocytes % (Manual) Nucleated RBC % Seg Neutrophils # Man Lymphocytes # (Manual) Fibrinogen ABG pH POC ABG pO2 ABG pO2 ABG HCO3 ABG O2 Saturation ABG Base Excess ABG Hemoglobin Oxyhemoglobin Carboxyhemoglobin Sodium Potassium Chloride Carbon Dioxide BUN Creatinine Glucose POC Glucose 394 H 412 H 352 H Hemoglobin A1c Lactic Acid Calcium Phosphorus Magnesium Direct Bilirubin AST ALT Alkaline Phosphatase Lactate Dehydrogenase Total Protein Albumin Ur Specific [place] Urine Blood Urine WBC (Auto) Vancomycin Trough Crossmatch 02/01/22 02/01/22 02/01/22 18:23 18:53 19:26 WBC RBC Hgb Hct MCV MCH RDW Plt Count Seg Neuts % (Manual) Lymphocytes % (Manual) Nucleated RBC % Seg Neutrophils # Man Lymphocytes # (Manual) Fibrinogen ABG pH 7.331 L POC ABG pO2 ABG pO2 121.4 H ABG HCO3 ABG O2 Saturation ABG Base Excess -4.9 L ABG Hemoglobin 8.4 L Oxyhemoglobin Carboxyhemoglobin Sodium Potassium Chloride Carbon Dioxide BUN Creatinine Glucose POC Glucose 350 H 260 H Hemoglobin A1c Lactic Acid Calcium Phosphorus Magnesium Direct Bilirubin AST ALT Alkaline Phosphatase Lactate Dehydrogenase Total Protein Albumin Ur Specific [place] Urine Blood Urine WBC (Auto) Vancomycin Trough Crossmatch 02/01/22 02/01/22 02/01/22 20:20 21:38 22:41 WBC RBC Hgb Hct MCV MCH RDW Plt Count Seg Neuts % (Manual) Lymphocytes % (Manual) Nucleated RBC % Seg Neutrophils # Man Lymphocytes # (Manual) Fibrinogen ABG pH POC ABG pO2 ABG pO2 ABG HCO3 ABG O2 Saturation ABG Base Excess ABG Hemoglobin Oxyhemoglobin Carboxyhemoglobin Sodium Potassium Chloride Carbon Dioxide BUN Creatinine Glucose POC Glucose 266 H 195 H 150 H Hemoglobin A1c Lactic Acid Calcium Phosphorus Magnesium Direct Bilirubin AST ALT Alkaline Phosphatase Lactate Dehydrogenase Total Protein Albumin Ur Specific [place] Urine Blood Urine WBC (Auto) Vancomycin Trough Crossmatch 02/01/22 02/02/22 02/02/22 23:39 00:25 00:25 WBC RBC Hgb Hct MCV MCH RDW Plt Count Seg Neuts % (Manual) Lymphocytes % (Manual) Nucleated RBC % Seg Neutrophils # Man Lymphocytes # (Manual) Fibrinogen ABG pH POC ABG pO2 ABG pO2 ABG HCO3 ABG O2 Saturation ABG Base Excess ABG Hemoglobin Oxyhemoglobin Carboxyhemoglobin Sodium 156 H D Potassium 3.0 L Chloride 114.2 H Carbon Dioxide BUN Creatinine 0.5 L Glucose 63 L POC Glucose 125 H Hemoglobin A1c Lactic Acid 7.10 H* Calcium 8.1 L Phosphorus Magnesium Direct Bilirubin AST ALT Alkaline Phosphatase Lactate Dehydrogenase Total Protein Albumin Ur Specific [place] Urine Blood Urine WBC (Auto) Vancomycin Trough Crossmatch 02/02/22 02/02/22 02/02/22 04:00 04:00 04:35 WBC 1.4 L* RBC Hgb 8.5 L Hct 26.8 L D MCV 57 L MCH 18 L RDW 19.0 H Plt Count 129 L Seg Neuts % (Manual) 33.0 L Lymphocytes % (Manual) 57.0 H Nucleated RBC % Seg Neutrophils # Man 0.5 L Lymphocytes # (Manual) 0.8 L Fibrinogen ABG pH POC ABG pO2 ABG pO2 ABG HCO3 ABG O2 Saturation ABG Base Excess ABG Hemoglobin Oxyhemoglobin Carboxyhemoglobin Sodium 155 H Potassium Chloride 113.1 H Carbon Dioxide BUN Creatinine Glucose 159 H POC Glucose Hemoglobin A1c Lactic Acid 3.10 H* Calcium 7.6 L Phosphorus Magnesium Direct Bilirubin AST ALT Alkaline Phosphatase Lactate Dehydrogenase Total Protein Albumin Ur Specific [place] Urine Blood Urine WBC (Auto) Vancomycin Trough Crossmatch 02/02/22 02/02/22 02/02/22 04:37 04:49 05:43 WBC RBC Hgb Hct MCV MCH RDW Plt Count Seg Neuts % (Manual) Lymphocytes % (Manual) Nucleated RBC % Seg Neutrophils # Man Lymphocytes # (Manual) Fibrinogen ABG pH 7.528 H POC ABG pO2 79.9 L ABG pO2 ABG HCO3 ABG O2 Saturation ABG Base Excess ABG Hemoglobin 8.8 L Oxyhemoglobin Carboxyhemoglobin 0.2 L Sodium Potassium Chloride Carbon Dioxide BUN Creatinine Glucose POC Glucose 116 H 125 H Hemoglobin A1c Lactic Acid Calcium Phosphorus Magnesium Direct Bilirubin AST ALT Alkaline Phosphatase Lactate Dehydrogenase Total Protein Albumin Ur Specific [place] Urine Blood Urine WBC (Auto) Vancomycin Trough Crossmatch 02/02/22 02/02/22 02/02/22 06:52 09:02 09:05 WBC RBC Hgb Hct MCV MCH RDW Plt Count Seg Neuts % (Manual) Lymphocytes % (Manual) Nucleated RBC % Seg Neutrophils # Man Lymphocytes # (Manual) Fibrinogen ABG pH POC ABG pO2 ABG pO2 ABG HCO3 ABG O2 Saturation ABG Base Excess ABG Hemoglobin Oxyhemoglobin Carboxyhemoglobin Sodium 154 H Potassium 3.3 L Chloride 113.3 H Carbon Dioxide BUN Creatinine Glucose 35 L* POC Glucose 110 H 35 L Hemoglobin A1c Lactic Acid Calcium 7.4 L Phosphorus 1.70 L D Magnesium 2.50 H Direct Bilirubin AST ALT Alkaline Phosphatase Lactate Dehydrogenase Total Protein Albumin Ur Specific [place] Urine Blood Urine WBC (Auto) Vancomycin Trough Crossmatch 02/02/22 02/02/22 02/02/22 09:05 09:30 09:41 WBC 2.6 L RBC Hgb 8.0 L Hct 25.0 L MCV 57 L MCH 18 L RDW 18.8 H Plt Count 97 L Seg Neuts % (Manual) Lymphocytes % (Manual) 12.0 L Nucleated RBC % 10.0 H Seg Neutrophils # Man 1.7 L Lymphocytes # (Manual) 0.3 L Fibrinogen ABG pH POC ABG pO2 ABG pO2 ABG HCO3 ABG O2 Saturation ABG Base Excess ABG Hemoglobin Oxyhemoglobin Carboxyhemoglobin Sodium Potassium Chloride Carbon Dioxide BUN Creatinine Glucose POC Glucose 119 H Hemoglobin A1c Lactic Acid 7.10 H* Calcium Phosphorus Magnesium Direct Bilirubin AST ALT Alkaline Phosphatase Lactate Dehydrogenase Total Protein Albumin Ur Specific [place] Urine Blood Urine WBC (Auto) Vancomycin Trough Crossmatch 02/02/22 02/02/22 02/02/22 10:17 12:32 15:39 WBC RBC Hgb Hct MCV MCH RDW Plt Count Seg Neuts % (Manual) Lymphocytes % (Manual) Nucleated RBC % Seg Neutrophils # Man Lymphocytes # (Manual) Fibrinogen ABG pH POC ABG pO2 ABG pO2 ABG HCO3 ABG O2 Saturation ABG Base Excess ABG Hemoglobin Oxyhemoglobin Carboxyhemoglobin Sodium Potassium Chloride Carbon Dioxide BUN Creatinine Glucose POC Glucose 120 H 166 H 263 H Hemoglobin A1c Lactic Acid Calcium Phosphorus Magnesium Direct Bilirubin AST ALT Alkaline Phosphatase Lactate Dehydrogenase Total Protein Albumin Ur Specific [place] Urine Blood Urine WBC (Auto) Vancomycin Trough Crossmatch 02/02/22 02/02/22 02/02/22 17:07 17:50 Unknown WBC RBC Hgb Hct MCV MCH RDW Plt Count Seg Neuts % (Manual) Lymphocytes % (Manual) Nucleated RBC % Seg Neutrophils # Man Lymphocytes # (Manual) Fibrinogen ABG pH 7.457 H POC ABG pO2 ABG pO2 71.0 L ABG HCO3 ABG O2 Saturation 94.5 L ABG Base Excess ABG Hemoglobin 9.2 L Oxyhemoglobin 93.0 L Carboxyhemoglobin Sodium 147 H Potassium 5.5 H D Chloride 110.8 H Carbon Dioxide BUN Creatinine Glucose 271 H POC Glucose 231 H Hemoglobin A1c Lactic Acid Calcium 7.3 L Phosphorus Magnesium Direct Bilirubin AST ALT Alkaline Phosphatase Lactate Dehydrogenase Total Protein Albumin Ur Specific [place] Urine Blood Urine WBC (Auto) Vancomycin Trough Crossmatch 02/03/22 02/03/22 02/03/22 00:08 04:00 04:00 WBC 3.7 L RBC Hgb 8.0 L Hct 25.5 L MCV 58 L MCH 18 L RDW 18.2 H Plt Count 79 L Seg Neuts % (Manual) 76.0 H Lymphocytes % (Manual) 2.0 L Nucleated RBC % 4.0 H Seg Neutrophils # Man Lymphocytes # (Manual) 0.1 L Fibrinogen ABG pH POC ABG pO2 ABG pO2 ABG HCO3 ABG O2 Saturation ABG Base Excess ABG Hemoglobin Oxyhemoglobin Carboxyhemoglobin Sodium 147 H Potassium Chloride 112.9 H Carbon Dioxide BUN Creatinine Glucose 281 H POC Glucose 231 H Hemoglobin A1c Lactic Acid Calcium 7.8 L Phosphorus Magnesium Direct Bilirubin 0.3 H AST 172 H ALT 89 H Alkaline Phosphatase Lactate Dehydrogenase Total Protein 4.7 L D Albumin 2.0 L Ur Specific [place] Urine Blood Urine WBC (Auto) Vancomycin Trough Crossmatch 02/03/22 02/03/22 02/03/22 04:20 05:26 11:38 WBC RBC Hgb Hct MCV MCH RDW Plt Count Seg Neuts % (Manual) Lymphocytes % (Manual) Nucleated RBC % Seg Neutrophils # Man Lymphocytes # (Manual) Fibrinogen ABG pH POC ABG pO2 ABG pO2 75.5 L ABG HCO3 ABG O2 Saturation ABG Base Excess -2.8 L ABG Hemoglobin 8.1 L Oxyhemoglobin 94.6 L Carboxyhemoglobin Sodium Potassium Chloride Carbon Dioxide BUN Creatinine Glucose POC Glucose 247 H 196 H Hemoglobin A1c Lactic Acid Calcium Phosphorus Magnesium Direct Bilirubin AST ALT Alkaline Phosphatase Lactate Dehydrogenase Total Protein Albumin Ur Specific [place] Urine Blood Urine WBC (Auto) Vancomycin Trough Crossmatch 02/03/22 02/04/22 02/04/22 16:27 02:44 03:18 WBC 1.2 L* RBC Hgb 8.2 L Hct 26.6 L MCV 59 L MCH 18 L RDW 19.6 H Plt Count 50 L Seg Neuts % (Manual) Lymphocytes % (Manual) Nucleated RBC % Seg Neutrophils # Man Lymphocytes # (Manual) Fibrinogen ABG pH POC ABG pO2 ABG pO2 ABG HCO3 ABG O2 Saturation ABG Base Excess ABG Hemoglobin Oxyhemoglobin Carboxyhemoglobin Sodium 148 H Potassium Chloride 116.3 H Carbon Dioxide BUN Creatinine Glucose 139 H POC Glucose 119 H Hemoglobin A1c Lactic Acid Calcium Phosphorus Magnesium Direct Bilirubin 0.3 H AST 92 H ALT 76 H Alkaline Phosphatase Lactate Dehydrogenase Total Protein 4.7 L Albumin 1.6 L Ur Specific [place] Urine Blood Urine WBC (Auto) Vancomycin Trough Crossmatch 02/04/22 02/04/22 02/04/22 05:15 05:26 09:15 WBC RBC Hgb Hct MCV MCH RDW Plt Count Seg Neuts % (Manual) Lymphocytes % (Manual) Nucleated RBC % Seg Neutrophils # Man Lymphocytes # (Manual) Fibrinogen ABG pH 7.311 L POC ABG pO2 ABG pO2 50.1 L ABG HCO3 ABG O2 Saturation 83.6 L ABG Base Excess ABG Hemoglobin 8.6 L Oxyhemoglobin 81.9 L Carboxyhemoglobin Sodium Potassium Chloride Carbon Dioxide BUN Creatinine Glucose POC Glucose 115 H Hemoglobin A1c Lactic Acid Calcium Phosphorus Magnesium Direct Bilirubin AST ALT Alkaline Phosphatase Lactate Dehydrogenase Total Protein Albumin Ur Specific [place] Urine Blood Large A Urine WBC (Auto) 12.0 H Vancomycin Trough Crossmatch 02/04/22 02/04/22 02/04/22 11:17 14:37 17:04 WBC RBC Hgb Hct MCV MCH RDW Plt Count Seg Neuts % (Manual) Lymphocytes % (Manual) Nucleated RBC % Seg Neutrophils # Man Lymphocytes # (Manual) Fibrinogen ABG pH POC ABG pO2 ABG pO2 ABG HCO3 ABG O2 Saturation ABG Base Excess ABG Hemoglobin Oxyhemoglobin Carboxyhemoglobin Sodium Potassium Chloride Carbon Dioxide BUN Creatinine Glucose POC Glucose 166 H 109 H Hemoglobin A1c Lactic Acid Calcium Phosphorus Magnesium Direct Bilirubin AST 87 H ALT 75 H Alkaline Phosphatase 137 H Lactate Dehydrogenase Total Protein 4.6 L Albumin 1.7 L Ur Specific [place] Urine Blood Urine WBC (Auto) Vancomycin Trough Crossmatch 02/04/22 02/04/22 02/04/22 20:15 20:22 20:22 WBC RBC Hgb 7.1 L Hct 22.6 L MCV MCH RDW Plt Count Seg Neuts % (Manual) Lymphocytes % (Manual) Nucleated RBC % Seg Neutrophils # Man Lymphocytes # (Manual) Fibrinogen ABG pH 7.292 L POC ABG pO2 ABG pO2 40.3 L ABG HCO3 ABG O2 Saturation 72.1 L ABG Base Excess -2.2 L ABG Hemoglobin 7.0 L Oxyhemoglobin 70.5 L Carboxyhemoglobin Sodium Potassium Chloride Carbon Dioxide BUN Creatinine Glucose POC Glucose Hemoglobin A1c Lactic Acid 3.00 H* Calcium Phosphorus Magnesium Direct Bilirubin AST ALT Alkaline Phosphatase Lactate Dehydrogenase Total Protein Albumin Ur Specific [place] Urine Blood Urine WBC (Auto) Vancomycin Trough Crossmatch 02/04/22 02/04/22 02/05/22 20:22 23:03 04:40 WBC 3.1 L RBC Hgb 9.6 L Hct 30.1 L D MCV 64 L MCH 20 L RDW 26.9 H Plt Count 50 L Seg Neuts % (Manual) Lymphocytes % (Manual) Nucleated RBC % Seg Neutrophils # Man Lymphocytes # (Manual) Fibrinogen ABG pH POC ABG pO2 ABG pO2 ABG HCO3 ABG O2 Saturation ABG Base Excess ABG Hemoglobin Oxyhemoglobin Carboxyhemoglobin Sodium Potassium Chloride Carbon Dioxide BUN Creatinine Glucose POC Glucose 171 H Hemoglobin A1c Lactic Acid Calcium Phosphorus Magnesium Direct Bilirubin AST ALT Alkaline Phosphatase Lactate Dehydrogenase Total Protein Albumin Ur Specific [place] Urine Blood Urine WBC (Auto) Vancomycin Trough Crossmatch See Detail 02/05/22 02/05/22 02/05/22 04:40 04:40 04:43 WBC RBC Hgb Hct MCV MCH RDW Plt Count Seg Neuts % (Manual) Lymphocytes % (Manual) Nucleated RBC % Seg Neutrophils # Man Lymphocytes # (Manual) Fibrinogen ABG pH POC ABG pO2 ABG pO2 ABG HCO3 ABG O2 Saturation ABG Base Excess ABG Hemoglobin Oxyhemoglobin Carboxyhemoglobin Sodium 148 H Potassium Chloride 113.2 H Carbon Dioxide BUN 21 H Creatinine Glucose 155 H POC Glucose 156 H Hemoglobin A1c Lactic Acid Calcium Phosphorus Magnesium Direct Bilirubin AST 84 H ALT 67 H Alkaline Phosphatase 152 H Lactate Dehydrogenase 879 H Total Protein 5.0 L Albumin 1.8 L Ur Specific [place] Urine Blood Urine WBC (Auto) Vancomycin Trough Crossmatch 02/05/22 02/05/22 02/05/22 08:10 08:48 08:48 WBC RBC Hgb Hct MCV MCH RDW Plt Count Seg Neuts % (Manual) Lymphocytes % (Manual) Nucleated RBC % Seg Neutrophils # Man Lymphocytes # (Manual) Fibrinogen 795 H ABG pH POC ABG pO2 ABG pO2 57.1 L ABG HCO3 27.8 H ABG O2 Saturation 90.8 L ABG Base Excess ABG Hemoglobin 8.5 L Oxyhemoglobin 88.9 L Carboxyhemoglobin Sodium Potassium Chloride Carbon Dioxide BUN Creatinine Glucose POC Glucose Hemoglobin A1c Lactic Acid 2.90 H* Calcium Phosphorus Magnesium Direct Bilirubin AST ALT Alkaline Phosphatase Lactate Dehydrogenase Total Protein Albumin Ur Specific [place] Urine Blood Urine WBC (Auto) Vancomycin Trough Crossmatch 02/05/22 02/05/22 02/05/22 11:46 17:45 Unknown WBC RBC Hgb Hct MCV MCH RDW Plt Count Seg Neuts % (Manual) Lymphocytes % (Manual) Nucleated RBC % Seg Neutrophils # Man Lymphocytes # (Manual) Fibrinogen ABG pH POC ABG pO2 ABG pO2 ABG HCO3 ABG O2 Saturation ABG Base Excess ABG Hemoglobin Oxyhemoglobin Carboxyhemoglobin Sodium Potassium Chloride Carbon Dioxide BUN Creatinine Glucose POC Glucose 61 L 133 H Hemoglobin A1c Lactic Acid Calcium Phosphorus Magnesium Direct Bilirubin AST ALT Alkaline Phosphatase Lactate Dehydrogenase Total Protein Albumin Ur Specific [place] Urine Blood Urine WBC (Auto) Vancomycin Trough 28.6 H Crossmatch 02/05/22 02/06/22 02/06/22 23:59 04:33 04:33 WBC RBC Hgb 8.4 L Hct 26.1 L MCV 64 L MCH 21 L RDW 26.2 H Plt Count 38 L Seg Neuts % (Manual) Lymphocytes % (Manual) Nucleated RBC % Seg Neutrophils # Man Lymphocytes # (Manual) Fibrinogen ABG pH POC ABG pO2 ABG pO2 ABG HCO3 ABG O2 Saturation ABG Base Excess ABG Hemoglobin Oxyhemoglobin Carboxyhemoglobin Sodium 146 H Potassium 3.4 L Chloride Carbon Dioxide 31 H BUN 21 H Creatinine Glucose 230 H POC Glucose 275 H Hemoglobin A1c Lactic Acid Calcium Phosphorus Magnesium Direct Bilirubin AST 70 H ALT Alkaline Phosphatase 197 H Lactate Dehydrogenase Total Protein 5.3 L Albumin 2.4 L Ur Specific [place] Urine Blood Urine WBC (Auto) Vancomycin Trough Crossmatch 02/06/22 02/06/22 02/06/22 04:33 04:50 06:19 WBC RBC Hgb Hct MCV MCH RDW Plt Count Seg Neuts % (Manual) Lymphocytes % (Manual) Nucleated RBC % Seg Neutrophils # Man Lymphocytes # (Manual) Fibrinogen ABG pH 7.330 L POC ABG pO2 ABG pO2 57.9 L ABG HCO3 31.3 H ABG O2 Saturation 89.6 L ABG Base Excess 4.5 H ABG Hemoglobin 8.1 L Oxyhemoglobin 87.7 L Carboxyhemoglobin Sodium Potassium Chloride Carbon Dioxide BUN Creatinine Glucose POC Glucose 219 H Hemoglobin A1c Lactic Acid 3.10 H* Calcium Phosphorus Magnesium Direct Bilirubin AST ALT Alkaline Phosphatase Lactate Dehydrogenase Total Protein Albumin Ur Specific [place] Urine Blood Urine WBC (Auto) Vancomycin Trough Crossmatch 02/06/22 02/06/22 02/06/22 11:24 11:50 12:26 WBC RBC Hgb Hct MCV MCH RDW Plt Count Seg Neuts % (Manual) Lymphocytes % (Manual) Nucleated RBC % Seg Neutrophils # Man Lymphocytes # (Manual) Fibrinogen ABG pH 7.298 L POC ABG pO2 ABG pO2 43.3 L ABG HCO3 36.7 H ABG O2 Saturation 74.9 L ABG Base Excess 8.8 H ABG Hemoglobin 8.2 L Oxyhemoglobin 73.3 L Carboxyhemoglobin Sodium Potassium Chloride Carbon Dioxide BUN Creatinine Glucose POC Glucose 118 H Hemoglobin A1c Lactic Acid 2.50 H* Calcium Phosphorus Magnesium Direct Bilirubin AST ALT Alkaline Phosphatase Lactate Dehydrogenase Total Protein Albumin Ur Specific [place] Urine Blood Urine WBC (Auto) Vancomycin Trough Crossmatch 02/06/22 02/06/22 02/07/22 17:41 21:41 00:17 WBC RBC Hgb Hct MCV MCH RDW Plt Count Seg Neuts % (Manual) Lymphocytes % (Manual) Nucleated RBC % Seg Neutrophils # Man Lymphocytes # (Manual) Fibrinogen ABG pH POC ABG pO2 ABG pO2 ABG HCO3 ABG O2 Saturation ABG Base Excess ABG Hemoglobin Oxyhemoglobin Carboxyhemoglobin Sodium Potassium Chloride Carbon Dioxide BUN Creatinine Glucose POC Glucose 208 H 282 H 342 H Hemoglobin A1c Lactic Acid Calcium Phosphorus Magnesium Direct Bilirubin AST ALT Alkaline Phosphatase Lactate Dehydrogenase Total Protein Albumin Ur Specific [place] Urine Blood Urine WBC (Auto) Vancomycin Trough Crossmatch 02/07/22 02/07/22 02/07/22 00:19 04:12 04:12 WBC 13.1 H RBC Hgb 8.5 L Hct 26.4 L MCV 62 L MCH 20 L RDW 24.2 H Plt Count 57 L Seg Neuts % (Manual) Lymphocytes % (Manual) Nucleated RBC % Seg Neutrophils # Man Lymphocytes # (Manual) Fibrinogen ABG pH POC ABG pO2 ABG pO2 ABG HCO3 ABG O2 Saturation ABG Base Excess ABG Hemoglobin Oxyhemoglobin Carboxyhemoglobin Sodium 149 H Potassium 3.1 L Chloride Carbon Dioxide 38 H D BUN 23 H Creatinine Glucose 298 H POC Glucose 209 H Hemoglobin A1c Lactic Acid Calcium Phosphorus 2.10 L Magnesium Direct Bilirubin AST 49 H ALT Alkaline Phosphatase 248 H Lactate Dehydrogenase Total Protein 5.4 L Albumin 2.7 L Ur Specific [place] Urine Blood Urine WBC (Auto) Vancomycin Trough Crossmatch 02/07/22 02/07/22 02/07/22 04:40 07:09 07:13 WBC RBC Hgb Hct MCV MCH RDW Plt Count Seg Neuts % (Manual) Lymphocytes % (Manual) Nucleated RBC % Seg Neutrophils # Man Lymphocytes # (Manual) Fibrinogen ABG pH 7.474 H POC ABG pO2 ABG pO2 62.1 L ABG HCO3 39.1 H ABG O2 Saturation 94.7 L ABG Base Excess 13.9 H ABG Hemoglobin 8.6 L Oxyhemoglobin 93.0 L Carboxyhemoglobin Sodium Potassium Chloride Carbon Dioxide BUN Creatinine Glucose POC Glucose 399 H 418 H Hemoglobin A1c Lactic Acid Calcium Phosphorus Magnesium Direct Bilirubin AST ALT Alkaline Phosphatase Lactate Dehydrogenase Total Protein Albumin Ur Specific [place] Urine Blood Urine WBC (Auto) Vancomycin Trough Crossmatch
--- NOTE | 2022-02-07 12:32 | Progress Note ---
Assessment and Plan Patient is a 61-year-old female [facility] due to altered mental status. Patient found to be in DKA and have cardiopulmonary S/p cardiopulmonary arrest Acute respiratory failure-pulmonology following DKA Sepsis-ID following SVT Hypotension [id number]-xnuh-[id number] following Echo 02/02/2022-EF 55 to 60%. Left ventricular diastolic function is normal. Right ventricular systolic function is mildly reduced. Left and right atria normal in size. No pericardial effusion Plan: Patient is s/p cardiopulmonary arrest however previous rhythm unknown/ suspected to be PEA Telemetry reviewed and sinus tach no further episodes of SVT LFts noted to elevate will hold amiodarone No BBs at this time due to hypotension Continue statin therapy Patient has normal EF on echo. Will consider ischemic eval once patient is stable Overall poor prognosis Patient seen in conjunction with Dr. Schuster who agrees with this plan of care 30 minutes of critical care time spending care and coordination of patient - Patient Problems (1) SVT (supraventricular tachycardia) Current Visit: Yes Status: Acute (2) Acute respiratory failure Current Visit: Yes Status: Acute Qualifiers: Respiratory failure complication: hypoxia Qualified Code(s): J96.01 - Acute respiratory failure with hypoxia (3) Cardiopulmonary arrest with successful resuscitation Current Visit: Yes Status: Acute (4) Hypotension Current Visit: Yes Status: Acute (5) Pancytopenia Current Visit: Yes Status: Acute (6) Sepsis Current Visit: Yes Status: Acute Subjective Date of service: 02/07/22 Principal diagnosis: DKA, s/p cardiopulmonary arrest Interval history: Patient remains intubated and sedated Sinus tach 100s no events on monitor Objective Vital Signs Temp Pulse Pulse Resp BP Pulse Ox 02/07/22 12:15 108 H 26 H 102/70 99 02/07/22 12:00 108 H 24 95/72 83 L 02/07/22 11:45 106 H 25 H 99/75 100 02/07/22 11:30 106 H 25 H 97/68 100 02/07/22 11:16 107 H 26 H 93/67 100 02/07/22 11:00 110 H 27 H 112/78 100 02/07/22 10:45 110 H 32 H 134/82 100 02/07/22 10:30 109 H 29 H 125/79 100 02/07/22 10:16 110 H 34 H 134/86 98 02/07/22 10:00 110 H 32 H 106/80 97 02/07/22 09:45 107 H 26 H 106/80 93 02/07/22 09:30 110 H 26 H 108/84 95 02/07/22 09:15 109 H 27 H 107/80 96 02/07/22 09:00 107 H 24 100/75 96 02/07/22 08:45 108 H 25 H 106/74 96 02/07/22 08:35 108 H 111/84 95 02/07/22 08:30 109 H 25 H 111/84 98 02/07/22 08:15 108 H 19 114/78 96 02/07/22 08:00 99.1 F 108 H 104 H 24 119/83 97 02/07/22 07:45 109 H 19 128/86 95 02/07/22 07:30 104 H 23 98/70 97 02/07/22 07:16 108 H 16 121/91 93 02/07/22 07:00 103 H 22 99/69 98 02/07/22 06:45 103 H 22 94/76 91 02/07/22 06:30 103 H 18 94/70 95 02/07/22 06:15 102 H 22 94/70 99 02/07/22 06:00 103 H 21 111/78 98 02/07/22 05:45 100 H 17 105/75 99 02/07/22 05:30 102 H 20 105/75 97 02/07/22 05:15 103 H 19 112/81 100 02/07/22 05:00 103 H 20 104/78 99 02/07/22 04:54 102 H 106/65 99 02/07/22 04:45 104 H 21 111/82 100 02/07/22 04:30 104 H 19 116/83 99 02/07/22 04:15 101 H 21 107/78 100 02/07/22 04:00 98.8 F 103 H 102 H 22 111/79 96 02/07/22 03:46 109 H 27 H 151/80 02/07/22 03:30 102 H 22 111/75 98 02/07/22 03:15 103 H 21 100/71 98 02/07/22 03:00 103 H 25 H 104/78 97 02/07/22 02:45 105 H 21 108/79 95 02/07/22 02:30 105 H 23 100/67 96 02/07/22 02:15 102 H 22 100/67 98 02/07/22 02:00 104 H 20 101/75 98 02/07/22 01:45 107 H 28 H 128/86 96 02/07/22 01:30 106 H 22 110/77 97 02/07/22 01:15 106 H 22 117/78 99 02/07/22 01:00 104 H 21 108/76 100 02/07/22 00:45 101 H 23 102/70 100 02/07/22 00:30 101 H 22 94/71 99 02/07/22 00:27 104 H 130/76 98 02/07/22 00:15 101 H 16 89/62 98 02/07/22 00:00 99.1 F 102 H 102 H 23 103/72 99 02/06/22 23:45 102 H 19 96/67 98 02/06/22 23:30 102 H 22 105/70 98 02/06/22 23:24 103 H 34 H 100/67 98 02/06/22 23:15 102 H 20 100/67 98 02/06/22 23:00 102 H 23 102/71 98 02/06/22 22:46 104 H 27 H 99/71 96 02/06/22 22:30 104 H 22 92/62 96 02/06/22 22:15 101 H 24 96/71 97 02/06/22 22:00 101 H 26 H 104/64 96 02/06/22 21:45 99 H 28 H 104/64 95 02/06/22 21:30 103 H 32 H 118/80 96 02/06/22 21:15 98 H 22 93/68 99 02/06/22 21:00 102 H 27 H 99/68 98 02/06/22 20:47 100 H 99/60 99 02/06/22 20:45 105 H 28 H 113/80 97 02/06/22 20:30 105 H 35 H 112/84 96 02/06/22 20:15 104 H 33 H 113/74 95 02/06/22 20:00 99.5 F 103 H 103 H 29 H 87/59 95 02/06/22 19:45 104 H 31 H 94/69 97 02/06/22 19:30 105 H 33 H 105/72 96 02/06/22 19:15 106 H 32 H 109/78 95 02/06/22 19:00 106 H 30 H 108/72 94 02/06/22 18:45 105 H 36 H 116/81 90 02/06/22 18:30 102 H 29 H 102/72 93 02/06/22 18:15 104 H 28 H 99/64 92 02/06/22 18:00 102 H 27 H 92/64 92 02/06/22 17:45 101 H 25 H 92/64 95 02/06/22 17:30 102 H 27 H 102/73 94 02/06/22 17:15 100 H 22 93/67 94 02/06/22 17:00 101 H 24 100/69 95 02/06/22 16:45 103 H 23 98/70 94 02/06/22 16:30 103 H 25 H 96/67 93 02/06/22 16:15 104 H 31 H 95/68 91 02/06/22 16:00 100.4 F H 103 H 103 H 24 88/62 94 02/06/22 15:52 104 H 02/06/22 15:45 103 H 22 88/62 96 02/06/22 15:30 105 H 25 H 95/67 92 02/06/22 15:15 104 H 25 H 96/69 93 02/06/22 15:00 107 H 21 88/62 95 02/06/22 14:45 109 H 25 H 95/64 93 02/06/22 14:30 119 H 25 H 97/70 93 02/06/22 14:15 110 H 30 H 101/66 91 02/06/22 14:00 119 H 26 H 98/68 92 02/06/22 13:45 120 H 28 H 94/69 91 02/06/22 13:30 111 H 30 H 97/68 91 02/06/22 13:15 107 H 30 H 106/73 90 02/06/22 13:00 113 H 32 H 110/74 86 02/06/22 12:45 111 H 31 H 121/79 85 - Physical Examination General: Other (Intubated and sedated) HEENT: Positive: Normocephaly, Mucus Membranes Moist Neck: Positive: neck supple, trachea midline Cardiac: Positive: Regular Rhythm, Tachycardia Lungs: Positive: Ventilated Respirations Neuro: Positive: Other (Sedated, intubated and mechanically ventilated.) Abdomen: Positive: Soft, Active Bowel Sounds Skin: Negative: Rash Musculoskeletal: No Fluid Collection Extremities: Absent: edema - Labs and Meds Cardiac Enzymes 02/07/22 Range/Units 04:12 AST 49 H (5-40) units/L CBC 02/07/22 Range/Units 04:12 WBC 13.1 H (4.5-11.0) K/mm3 RBC 4.25 (3.65-5.03) M/mm3 Hgb 8.5 L (10.1-14.3) gm/dl Hct 26.4 L (30.3-42.9) % Plt Count 57 L (140-440) K/mm3 Comprehensive Metabolic Panel 02/07/22 Range/Units 04:12 Sodium 149 H (137-145) mmol/L Potassium 3.1 L (3.6-5.0) mmol/L Chloride 100.1 (98-107) mmol/L Carbon Dioxide 38 H D (22-30) mmol/L BUN 23 H (7-17) mg/dL Creatinine 0.9 (0.6-1.2) mg/dL Glucose 298 H (65-100) mg/dL Calcium 8.7 (8.4-10.2) mg/dL AST 49 H (5-40) units/L ALT 44 (7-56) units/L Alkaline Phosphatase 248 H (35-129) units/L Total Protein 5.4 L (6.3-8.2) g/dL Albumin 2.7 L (3.9-5) g/dL - Imaging and Cardiology Echo: report reviewed - Telemetry EKG Rhythm: Sinus Tachycardia - EKG Sinus rhythms and dysrhythmias: sinus tachycardia Myocardial infarction: septal CT (old age or ind
--- NOTE | 2022-02-07 13:24 | Progress Note ---
<NICOLA TREVINO - Last Filed: 02/07/22 18:20> Assessment and Plan Assessment and plan: This is a 61-year-old female with known past medical history of DM, dementia, HLD, and HTN initially admitted for Hypoglycemia then went into DKA and was transferred to the ICU where she PEA arrested on 02/01. Patient is now with septic shock and on ventilatory support. Hospital Course to Date: 02/01: patient was transferred to ICU as lab work was consistent with DKA and started on insulin drip. Central line placed for IV access. Patient was given bicarb push and started on a bicarb drip. She was also started on Rocephin due to UTI however antibiotics are broadened to cefepime and vancomycin. 02/02: s/p cardiac arrest on 02/01. Bicarbonate drip discontinued. Pancytopenia noted, anion gap closed and transitioned to SSI and long-acting insulin. Patient was having hypoglycemia this morning which has been corrected now. Started on tube feeding. Potassium and phosphorus will be repleted. Hype rnatremia noted and FWF started with tube feedings. COVID-19 PCR pending. Venous Doppler ultrasound pending. Neurology and cardiology consulted. Echocardiogram pending. Patient currently on Levophed and sedated with propofol. Fentanyl added. Given 1 LR bolus this morning for hypotension. 02/03: LR bolus x2, remains on levophed, tachycardia and EKG completed which shows tachycardia. Increase in FiO2, Will culture with next temp spike. Will give 1 gm Calcium Gluconate. 02/04: S/p Bronch this am by [facility] at the bedside. Patient still spiking high temp despite broad spectrum IV Abx. Remains on high pressors with worsen neutropenia and thrombocytopenia. Will panculture this am, antifungal culture was also ordered. Continue current empiric IV Abx for now, awaiting sensitivity. Will also consult ID for further eval. Possible Hematology consult for pancytopenia per CCM. Possible family meeting with [facility] this week, case management to arrange. 02/05: Back up on full support on the vent. CXR with worsen bilateral opacities, S/p X1 dose of IV lasix. Patient also received 1units of PRBCs overnight due to anemia, H&H stable this am and no s/s of any active bleeding. Patient remains pancytopenic, still febrile. IV abx changed to Merrem and Vanc per ID, hematology consult pending. ST with episodes of SVT this am, plan for amiodarone gtt per Cardio. Off pressors this am. BP remains boderline, 25% IV Albumin and X1 dose of additional IV lasix gain today per CCM. Continue FWF for hypernatremi a. Lantus adjusted due to hypoglycemia. Possible family meeting tomorrow with [facility]. 83: Decompensated this am, sudden drop in SPO2 in the 80s, HR in the 50s, and MAP in the 40s. Back on 2 pressors, on 100% FIO2 and 12 of peep. Stat ABG pending, 1amp Bcarb given, stress dose steroids initiated. This an CXR reviewed with worsen opacities from prior. Patient remains on IV abx per ID. Hematology recommendations appreciated. Event discussed with [facility] who agreed with current intervention. Patient's daughter and sister were notified via phone. Current events, patient's diagnosis, overal condition, and poor prognosis were thoroughly discussed. GOC was also addressed with patient's daughter and sister, they voiced that if patient was able to speak for herself she would want all lifesaving measures, including CPR and medications if her heart stop. All questions and concerns were addressed at this time. They verbalized understanding and agreed with current care plan. Patient remains a FULL code status at This time. 02/07: Responded well to IV lasix and albumin overnight. CXR with some improvement today. IV lasix and albumin gain today per CCM. With increased WOB and tachpnea this am, low dose propofol added for RASS goal of 0 to -2. Wean FIO2 as tolerated for SPO2 goal above 92%. Worsen hyperglycemia this am, most like due to IV steroids, insulin therapy adjusted. Monitor and replace electrolytes as needed. Family meeting today with [facility], patient remains a FULL code status. Assessment and Plan #Septic Shock # Supraventricular Tachycardia(SVT) #S/p PEA Arrest with ROSC #H/o HTN, HLD - Coded in the ICU on 02/01, PEA arrest - ROSC achieved post 1amp of bcarb and EPI - With tachycardia, persistent fevers, s/p multiple pressors - off pressors this am. ST on the monitor, VSS - On Stress dose steroids - Echo reviewed, EF 55-60%, see report for detail - Cardiology consulted, appreciated recommendations - amiodarone gtt transitioned to PO per Cardio - Continue blood pressure monitor per protocol - Presor on standby for MAP less than 65 #Acute Hypoxic Respiratory Failure #ARDS #Bilateral Pneumonia - Intubated during code on 02/01 - This am CXR with worsening bilateral airspace opacities - 02/04 s/p Bronchoscopy at the bedside by CCM- BAL sent to lab - Vent setting: PRVC-100%,12,12,350 - ABG and this am CXR with some improvement today - IV lasix & albumin overnight - more tachypneic with increase WOB today, SPO2 at 100%. Patient is naheed more restless today, sedation increased - CCM consulted, appreciate recommendations - Continue IV Abx, IV steroids, and Nebs per CCM - wean Fio2 as tolerated - VAP bundle addressed - Aspiration precaution HOB above 30 - Daily ABG and CXR - Continue SPO2 monitoring for SPO2 goal above 92% #Septic Shock #Bilateral Pneumonia #Urinary Tract Infection(UTI) - With high fevers, neutropenia, thrombocytopenia, tachycardia, and hypotensive on multiple pressors - UA consistent with pyuria, Blood cultures with NGTD, Sputum culture with Klebsiella Pneumoniae - BLE doppler negative for DVT - repeat cultures with NGTD - ID consulted, appreciate recommendations - Continue IV Abx per ID- Rocephin - f/u on culture - Monitor CBC and temperature curve #Pancytopenia #Microcytic Anemia - Significant drop of WBCs and Plt count from admit - Probably due to septic shock, on IV Abx per ID - S/p 1unit PRBCs - No s/s of active bleeding, H&H stable this am - Continue to trend CBC - Hold AC for now - Hematology consulted, appreciate recommendations #Acute Metabolic Encephalopathy #h/o Dementia - Intubated and Sedated, more restless this am propofol gtt added - Titrate sedations for RASS goal of 0 to -2 - Daily SAT and SBT per CCM - Avoid benzodiazepine to reduce the possibility of delirium - PRN Analgesia for CPOT greater than 3 - Maintenance of sleep-wake cycle - Neurology consulted, appreciate recommendations #Hypokalemia #Hypernatremia - Low K most likely 2/2 IV Lasix - K repleted - Continue FWF Q4hrs for Hypernatremia - Strict intake and output - Avoid nephrotoxic medications - Monitor and replace electrolytes as needed #Type 2 Diabetes mellitus #S/p DKA - initially presented with hypoglycemia then went into DKA - s/p DKA protocol - Hemoglobin A1c 11.1 - Now with worsen hyperglycemia, most likely due to IV steroids - Additional subQ insulin given - Continue BG and SSI Q6hrs and Lantus qHs- increased - Avoid Hypoglycemia #GI/DVT Prophylaxis - PPI- Pepcid - SCDs to bilateral lower extremities while in bed #Advance Care Planning - Patient's diagnosis, overal condition, and poor prognosis were thoroughly discussed. GOC was also addressed with patient's daughter and sister, they voiced that if patient was able to speak for herself she would want all lifesaving measures, including CPR and medications if her heart stop. All q uestions and concerns were addressed at this time. They verbalized understanding and agreed with current care plan. Patient remains a FULL code status at This time. The high probability of a clinically significant, sudden or life threatening deterioration of the [Multiple] system(s) required my full and direct attention, intervention and personal management. The aggregate critical care time was [60] minutes. This time is in addition to time spent performing reported procedures but includes the following: [x] Data Review and interpretation [x] Patient assessment and monitoring of vital signs [x] Documentation [x] Medication orders and management Disposition Plan: ICU Total Time Spent with Patient (Minutes): 60 History Interval history: Patient seen and examined at the bedside. Remains on the vent and on fentanyl gtt. Tachypneic this am, SPO2 at 100%. Open eyes spontaneously with non- purposeful movement, not following any commands. Off pressors this am, in ST on the monitor, VSS. Hospitalist Physical - Physical exam Narrative exam: General appearance: Present: no acute distress, other (Remains on the vent and sedated) - EENT Eyes: Present: mydriasis (sluggish) - Respiratory Respiratory effort: Labored, other(tachypneic) Respiratory: bilateral: rhonchi, wheezing - Cardiovascular Rhythm: regular Heart Sounds: Present: S1 & S2 - Extremities Extremities: no ischemia, pulses intact, pulses symmetrical Extremity abnormal: edema - Peripheral Assessment Generalized Edema Type: Pitting Edema Degree: 2+ Capillary Refill: < 3 seconds Skin Temperature: Warm Peripheral Pulses: within normal limits - Abdominal General gastrointestinal: soft, non-distended, normal bowel sounds - Integumentary Integumentary: Present: warm (Weeping) - Psychiatric Psychiatric: other (Intubated and sedated) - Neurologic Neurologic: move all extremities(Non-purposeful), other (Intubated and sedated. Open eyes spontaneously, not following commands) - Allied Health Allied health notes reviewed: nursing, case management - Constitutional Vitals: Temp Pulse Resp BP Pulse Ox 99.1 F 108 H 26 H 102/70 99 02/07/22 08:00 02/07/22 12:15 02/07/22 12:15 02/07/22 12:15 02/07/22 12:15 HEART Score - HEART Score Troponin: Troponin T < 0.010 ng/mL (0.00-0.029) 02/03/22 16:15 Results - Labs CBC & Chem 7: 02/07/22 04:12 02/07/22 04:12 Labs: Laboratory Last Values WBC 13.1 K/mm3 (4.5-11.0) H 02/07/22 04:12 RBC 4.25 M/mm3 (3.65-5.03) 02/07/22 04:12 Hgb 8.5 gm/dl (10.1-14.3) L 02/07/22 04:12 Hct 26.4 % (30.3-42.9) L 02/07/22 04:12 MCV 62 fl (79-97) L 02/07/22 04:12 MCH 20 pg (28-32) L 02/07/22 04:12 MCHC 32 % (30-34) 02/07/22 04:12 RDW 24.2 % (13.2-15.2) H 02/07/22 04:12 Plt Count 57 K/mm3 (140-440) L 02/07/22 04:12 Lymph % (Auto) Certified Retinal Angiographer 02/02/22 04:00 Add Manual Diff Complete 02/03/22 04:00 Total Counted 50 02/03/22 04:00 Seg Neutrophils % Certified Retinal Angiographer 02/02/22 04:00 Seg Neuts % (Manual) 76.0 % (40.0-70.0) H 02/03/22 04:00 Band Neutrophils % 18.0 % 02/03/22 04:00 Lymphocytes % (Manual) 2.0 % (13.4-35.0) L 02/03/22 04:00 Reactive Lymphs % (Man) 0 % 02/03/22 04:00 Monocytes % (Manual) 4.0 % (0.0-7.3) 02/03/22 04:00 Eosinophils % (Manual) 0 % (0.0-4.3) 02/03/22 04:00 Basophils % (Manual) 0 % (0.0-1.8) 02/03/22 04:00 Metamyelocytes % 0 % 02/03/22 04:00 Myelocytes % 0 % 02/03/22 04:00 Promyelocytes % 0 % 02/03/22 04:00 Blast Cells % 0 % 02/03/22 04:00 Nucleated RBC % 4.0 % (0.0-0.9) H 02/03/22 04:00 Seg Neutrophils # Man 2.8 K/mm3 (1.8-7.7) 02/03/22 04:00 Band Neutrophils # 0.7 K/mm3 02/03/22 04:00 Lymphocytes # (Manual) 0.1 K/mm3 (1.2-5.4) L 02/03/22 04:00 Abs React Lymphs (Man) 0.0 K/mm3 02/03/22 04:00 Monocytes # (Manual) 0.1 K/mm3 (0.0-0.8) 02/03/22 04:00 Eosinophils # (Manual) 0.0 K/mm3 (0.0-0.4) 02/03/22 04:00 Basophils # (Manual) 0.0 K/mm3 (0.0-0.1) 02/03/22 04:00 Metamyelocytes # 0.0 K/mm3 02/03/22 04:00 Myelocytes # 0.0 K/mm3 02/03/22 04:00 Promyelocytes # 0.0 K/mm3 02/03/22 04:00 Blast Cells # 0.0 K/mm3 02/03/22 04:00 WBC Morphology Not Reportable 02/03/22 04:00 Hypersegmented Neuts Not Reportable 02/03/22 04:00 Hyposegmented Neuts Not Reportable 02/03/22 04:00 Hypogranular Neuts Not Reportable 02/03/22 04:00 Smudge Cells Not Reportable 02/03/22 04:00 Toxic Granulation Not Reportable 02/03/22 04:00 Toxic Vacuolation Not Reportable 02/03/22 04:00 Dohle Bodies Few 02/03/22 04:00 Pelger-Huet Anomaly Not Reportable 02/03/22 04:00 Sung Rods Not Reportable 02/03/22 04:00 Platelet Estimate Consistent w auto 02/03/22 04:00 Clumped Platelets Not Reportable 02/03/22 04:00 Plt Clumps, EDTA Not Reportable 02/03/22 04:00 Large Platelets Not Reportable 02/03/22 04:00 Giant Platelets Not Reportable 02/03/22 04:00 Platelet Satelliting Not Reportable 02/03/22 04:00 Plt Morphology Comment Not Reportable 02/03/22 04:00 RBC Morphology Not Reportable 02/03/22 04:00 Dimorphic RBCs Not Reportable 02/03/22 04:00 Polychromasia Not Reportable 02/03/22 04:00 Hypochromasia 3+ 02/03/22 04:00 Poikilocytosis 2+ 02/03/22 04:00 Anisocytosis 1+ 02/03/22 04:00 Microcytosis 2+ 02/03/22 04:00 Macrocytosis Not Reportable 02/03/22 04:00 Spherocytes Not Reportable 02/03/22 04:00 Pappenheimer Bodies Not Reportable 02/03/22 04:00 Sickle Cells Not Reportable 02/03/22 04:00 Target Cells 1+ 02/03/22 04:00 Tear Drop Cells Few 02/03/22 04:00 Ovalocytes Few 02/03/22 04:00 Helmet Cells Not Reportable 02/03/22 04:00 Starr-Dahlgren Bodies Not Reportable 02/03/22 04:00 [place] Rings Not Reportable 02/03/22 04:00 [place] Cells 1+ 02/03/22 04:00 Bite Cells Not Reportable 02/03/22 04:00 Crenated Cell Not Reportable 02/03/22 04:00 Elliptocytes Few 02/03/22 04:00 Acanthocytes (Spur) Not Reportable 02/03/22 04:00 Rouleaux Not Reportable 02/03/22 04:00 Hemoglobin C Crystals Not Reportable 02/03/22 04:00 Schistocytes Rare 02/03/22 04:00 Malaria parasites Not Reportable 02/03/22 04:00 Sven Bodies Not Reportable 02/03/22 04:00 Hem Pathologist Commnt No 02/03/22 04:00 PT 14.8 Sec. (12.2-14.9) 02/05/22 08:48 INR 1.02 (0.87-1.13) 02/05/22 08:48 APTT 34.4 Sec. (24.2-36.6) 02/05/22 08:48 Fibrinogen 795 mg/dl (211-480) H 02/05/22 08:48 ABG pH 7.474 pH Units (7.350-7.450) H 02/07/22 04:40 POC ABG pCO2 37.3 mmHg (32.0-48.0) 02/02/22 04:49 ABG pCO2 54.4 mm Hg 02/07/22 04:40 POC ABG pO2 79.9 mmHg (83-108) L 02/02/22 04:49 ABG pO2 62.1 mm Hg (80.0-90.0) L 02/07/22 04:40 POC ABG HCO3 30.3 02/02/22 04:49 ABG HCO3 39.1 mmol/L (20.0-26.0) H 02/07/22 04:40 ABG O2 Saturation 94.7 % (95.0-99.0) L 02/07/22 04:40 ABG O2 Content 11.3 (0.0-44) 02/07/22 04:40 POC ABG Base Excess 7.1 02/02/22 04:49 ABG Base Excess 13.9 mmol/L (-2.0-3.0) H 02/07/22 04:40 ABG Hemoglobin 8.6 gm/dl (12.0-16.0) L 02/07/22 04:40 ABG Oxyhemoglobin 96.0 (94-98) 02/02/22 04:49 ABG Carboxyhemoglobin 1.3 % (0.0-5.0) 02/07/22 04:40 ABG Methemoglobin 0.5 % (0.0-1.5) 02/07/22 04:40 ABG Sodium Not Reportable 02/02/22 04:49 ABG Potassium Not Reportable 02/02/22 04:49 ABG Chloride Not Reportable 02/02/22 04:49 ABG Glucose Not Reportable 02/02/22 04:49 Oxyhemoglobin 93.0 % (95.0-99.0) L 02/07/22 04:40 Carboxyhemoglobin 0.2 (0.5-1.5) L 02/02/22 04:49 FiO2 100 % 02/07/22 04:40 FiO2 % 60.0 02/02/22 04:49 Sodium 149 mmol/L (137-145) H 02/07/22 04:12 Potassium 3.1 mmol/L (3.6-5.0) L 02/07/22 04:12 Chloride 100.1 mmol/L (98-107) 02/07/22 04:12 Carbon Dioxide 38 mmol/L (22-30) H D 02/07/22 04:12 Anion Gap 14 mmol/L 02/07/22 04:12 BUN 23 mg/dL (7-17) H 02/07/22 04:12 Creatinine 0.9 mg/dL (0.6-1.2) 02/07/22 04:12 Estimated GFR > 60 ml/min 02/07/22 04:12 BUN/Creatinine Ratio 26 % 02/07/22 04:12 Glucose 298 mg/dL (65-100) H 02/07/22 04:12 POC Glucose 229 mg/dL (70-105) H 02/07/22 12:20 Hemoglobin A1c 11.1 % (4-6) H 02/01/22 12:54 Lactic Acid 2.50 mmol/L (0.7-2.0) H* 02/06/22 11:50 Calcium 8.7 mg/dL (8.4-10.2) 02/07/22 04:12 Phosphorus 2.10 mg/dL (2.5-4.5) L 02/07/22 04:12 Magnesium 2.00 mg/dL (1.7-2.3) 02/07/22 04:12 Total Bilirubin 0.30 mg/dL (0.1-1.2) 02/07/22 04:12 Direct Bilirubin < 0.2 mg/dL (0-0.2) 02/06/22 04:33 Indirect Bilirubin 0.0 mg/dL 02/06/22 04:33 AST 49 units/L (5-40) H 02/07/22 04:12 ALT 44 units/L (7-56) 02/07/22 04:12 Alkaline Phosphatase 248 units/L (35-129) H 02/07/22 04:12 Lactate Dehydrogenase 879 units/L (91-180) H 02/05/22 04:40 Troponin T < 0.010 ng/mL (0.00-0.029) 02/03/22 16:15 Total Protein 5.4 g/dL (6.3-8.2) L 02/07/22 04:12 Albumin 2.7 g/dL (3.9-5) L 02/07/22 04:12 Albumin/Globulin Ratio 1.0 % 02/07/22 04:12 Arterial Blood Glucose Not Reportable 02/02/22 04:49 Urine Color Yellow (Yellow) 02/04/22 09:15 Urine Turbidity Cloudy (Clear) 02/04/22 09:15 Urine pH 6.0 (5.0-7.0) 02/04/22 09:15 Ur Specific [place] 1.025 (1.003-1.030) 02/04/22 09:15 Urine Protein >500 mg/dL (Negative) 02/04/22 09:15 Urine Glucose (UA) Negative mg/dL (Negative) 02/04/22 09:15 Urine Ketones Negative mg/dL (Negative) 02/04/22 09:15 Urine Blood Large (Negative) A 02/04/22 09:15 Urine Nitrite Negative (Negative) 02/04/22 09:15 Ur Reducing Substances Not Reportable 01/31/22 22:49 Urine Bilirubin Negative (Negative) 02/04/22 09:15 Urine Ictotest Not Reportable 01/31/22 22:49 Urine Urobilinogen < 2.0 mg/dL (<2.0) 02/04/22 09:15 Ur Leukocyte Esterase Negative (Negative) 02/04/22 09:15 Urine WBC (Auto) 12.0 /HPF (0.0-6.0) H 02/04/22 09:15 Urine RBC (Auto) 107.0 /HPF (0.0-6.0) 02/04/22 09:15 U Epithel Cells (Auto) 1.0 /HPF (0-13.0) 02/04/22 09:15 Urine Bacteria (Auto) 1+ /HPF (Negative) 02/04/22 09:15 Urine Mucus Few /HPF 02/04/22 09:15 Urine Yeast (Budding) 2+ /HPF 02/04/22 09:15 Vancomycin Trough 28.6 ug/mL (5.0-20.0) H 02/05/22 Unknown Coronavirus (PCR) Negative (Negative) 02/02/22 10:44 SARS-CoV-2 (PCR) Negative (Negative) 02/01/22 08:50 HIV 1&2 Antibody Rapid Non react (Non React) 02/04/22 14:37 HIV P24 Antigen Non react (Non React) 02/04/22 14:37 Blood Type A POSITIVE 02/04/22 20:22 Antibody Screen Negative 02/04/22 20:22 Crossmatch See Detail 02/04/22 20:22 Microbiology: Microbiology 02/04/22 09:15 Urine,Clean Catch Urine Culture - Final NO GROWTH AFTER 48 HOURS 02/04/22 09:10 Bronchial Washings - Right Middle Lobe Respiratory Culture - Final 02/04/22 14:37 Peripheral/Venous Blood Culture - Preliminary NO GROWTH AFTER 48 HOURS 02/04/22 14:37 Peripheral/Venous Blood Culture - Preliminary NO GROWTH AFTER 48 HOURS 02/04/22 14:37 Peripheral/Venous Blood Fungal Culture - Preliminary Culture in Progress Gastelum/IV: Voiding Method External Female Catheter Active Medications - Current Medications Current Medications: Generic Name Dose Route Start Last Admin Trade Name Freq PRN Reason Stop Dose Admin Acetaminophen 650 mg 02/01/22 00:57 02/04/22 11:58 Acetaminophen 325 Mg Tab PO 650 mg Q4H PRN Administration Pain MILD(1-3)/Fever >100.5/ROSADO Albumin Human 12.5 gm 02/07/22 11:00 02/07/22 10:56 Albumin Human 25% (12.5 Gm/50 Ml) Inj IV 02/07/22 14:00 12.5 gm ONCE JAMIL Administration Albuterol 2.5 mg 02/01/22 00:57 Albuterol 2.5 Mg/3 Ml Nebu IH Q3HRT PRN Shortness Of Breath Lipase/Protease/Amylase 1 each 02/02/22 08:08 Lipase 10,500/Protease 25,000/Amylase 43,750 (Units) Dr Cap FEEDTUBE PRN PRN For Clogged Feeding Tube Atorvastatin Calcium 20 mg 02/03/22 22:00 02/06/22 21:04 Atorvastatin 20 Mg Tab FEEDTUBE 20 mg QHS JAMIL Administration Dextrose 50 ml 02/02/22 08:00 02/05/22 11:52 Dextrose 50% In Water (25gm) 50 Ml Syringe IV 25 ml Q30MIN PRN Administration Hypoglycemia Protocol Docusate Sodium 100 mg 02/07/22 10:00 02/07/22 09:33 Docusate Sodium 100 Mg/10 Ml Oral Liqd PO 100 mg BID JAMIL Administration Famotidine 20 mg 02/04/22 10:00 02/07/22 09:33 Famotidine 20 Mg Tab FEEDTUBE 20 mg BID JAMIL Administration Fentanyl 50 mcg 02/02/22 09:45 02/03/22 09:43 Fentanyl 100 Mcg/2 Ml Inj IV 50 mcg Q10MIN PRN Administration ANALGESIA Furosemide 20 mg 02/07/22 12:00 02/07/22 11:11 Furosemide 20 Mg/2 Ml Inj IV 02/07/22 15:00 20 mg ONCE JAMIL Administration Hydrocortisone Sodium Succinate 100 mg 02/06/22 13:00 02/07/22 06:00 Hydrocortisone Sod Succ 100 Mg/2 Ml Vial IV 100 mg Q8HR JAMIL Administration Hydrophilic Ointment 1 applic 02/01/22 18:52 Lip Therapy Vaseline TP Q2HR PRN Dry Lips NORepinephrine/NS 8 MG-250 ML 8 mg in 250 mls @ 3.75 mls/hr 02/01/22 20:00 02/06/22 12:29 Norepinephrine/Ns 8 Mg-250 Ml (Double Conc) IV 0 mcg/min TITRATE JAMIL 0 mls/hr Titration Protocol 2 MCG/MIN Propofol 1,000 mg in 100 mls @ 1.429 mls/hr 02/01/22 19:17 02/07/22 11:42 Diprivan 10 Mg/Ml IV 5 mcg/kg/min TITR JAMIL 1.429 mls/hr Administration Protocol 5 MCG/KG/MIN Fentanyl Citrate 2,000 mcg in 100 mls @ 2.381 mls/hr 02/02/22 10:00 02/07/22 04:50 Fentanyl Drip Premix IV 4 mcg/kg/hr TITR JAMIL 9.525 mls/hr Administration Protocol 1 MCG/KG/HR Phenylephrine HCl 100 mg/ 100 mls @ 3 mls/hr 02/03/22 14:15 02/04/22 14:50 Sodium Chloride IV 0 mcg/min TITR JAMIL 0 mls/hr Titration Protocol 50 MCG/MIN Sodium Chloride 500 mls @ 5 mls/hr 02/04/22 03:00 02/04/22 04:04 Nacl 0.9% 500 Ml IV 5 mls/hr DIRECT JAMIL Administration Vasopressin 20 unit/ Sodium 101 mls @ 9.09 mls/hr 02/04/22 09:15 02/05/22 01:16 Chloride IV 0 units/min TITR JAMIL 0 mls/hr Titration Protocol 0.03 UNITS/MIN Ceftriaxone Sodium 2 gm in 100 mls @ 200 mls/hr 02/05/22 16:00 02/06/22 16:52 Rocephin/Ns 2 Gm/100 Ml IV 200 mls/hr Q24H JAMIL Administration Protocol Insulin Glargine 25 units 02/07/22 22:00 Insulin Glargine 100 Units/Ml SUB-Q QHS [facility] Insulin Human Regular 0 units 02/02/22 18:00 02/07/22 12:27 Insulin Regular, Human 100 Units/1 Ml SUB-Q 4 units Q6H [facility] Administration Protocol Multi-Ingred Cream/Lotion/Oil/Oint 1 applic 02/01/22 18:52 Mineral Oil/Petrolatum, White Ophth Oint 3.5 Gm OU Q4HR PRN Dry Eye(s) Ondansetron HCl 4 mg 02/01/22 00:57 Ondansetron 4 Mg/2 Ml Inj IV Q8H PRN Nausea And Vomiting Senna/Docusate Sodium 2 tab 02/07/22 10:00 02/07/22 09:33 Sennosides/Docusate Sodium 8.6/50 Mg Tab PO 2 tab Q12H JAMIL Administration Simple Syrup 15 ml 02/02/22 08:08 Simple Syrup 15 Ml FEEDTUBE PRN PRN Hypoglycemia Simple Syrup 30 ml 02/02/22 08:08 Simple Syrup 15 Ml FEEDTUBE PRN PRN Hypoglycemia Sodium Bicarbonate 325 mg 02/02/22 08:08 Sodium Bicarbonate 325 Mg Tab FEEDTUBE PRN PRN For Clogged Feeding Tube Sodium Chloride 10 ml 02/01/22 10:00 02/07/22 09:34 Sodium Chloride 0.9% 10 Ml Flush Syringe IV 10 ml BID JAMIL Administration Sodium Chloride 10 ml 02/01/22 00:57 Sodium Chloride 0.9% 10 Ml Flush Syringe IV PRN PRN LINE FLUSH Sodium Phosphate 250 mg 02/07/22 10:00 02/07/22 09:31 K-Phos Neutral 250 Mg Tab PO 02/07/22 18:01 250 mg QID JAMIL Administration Nutrition/Malnutrition Assess - Dietary Evaluation Nutrition/Malnutrition Findings: Nutrition Notes Start: 02/01/22 17:50 Freq: Status: Active Protocol: Document 02/06/22 09:48 JACQUELINE (Rec: 02/06/22 10:15 JACQUELINE [id number]) Nutrition Notes Initial or Follow up Brief Note Current Diagnosis Diabetes,Sepsis,Respiratory Failure Other Pertinent Diagnosis s/p DKA, s/p PEA Arrest, Pneumonia, Pyuria, Pancytopenia, UTI, ... Current Diet TF-Glucerna 1.2 [place] @ 55 ml/hr (since L 02/04). Labs/Tests 02/06: Na 146, K 3.4, CO2 31, BUN 21, Glu 230. Pertinent Medications 02/06: Humulin R 4U, KCl 10mEq , others nutritionally unremarkable. Height 5 ft 4 in Weight 46.5 kg [place] Body Weight (kg) 54.54 BMI 17.6 Weight change and time frame 0.2 Kg body weight loss reported in 2 days. Weight Status Underweight Subjective/Other Information RD consult for TF tolerance/ continuation. TF continues as prescribed, and well tolerated, according to RN notes. RN note on 02/05/22 03:49: 08/2021 0040 I hung new container TF glucerna @ 55 ml/ hr with FWF container rate @ FWF 100 ml q4hr, see manager internet notes, to OGT. - END OF NOTE. Pt remains on Mechanical Ventilation, O2 saturation @ 96%, according to Physical Assessment History notes. Pt remains incontinent, according to Physical Assessment History notes. Percent of energy/protein needs met: Prescribed TF-Glucerna 1.2 [place] @ 55 ml/hr provides for energy/protein needs (1584 Kcal/79 g) during LOS, 97% Kcal; 100% AA. #1 Nutrition Diagnosis Inadequate oral intake Diagnosis Progress(for reassessment Continues documentation) Is patient on ventilator? Yes Is Patient Ambulatory and/or Out of Bed No REE-(Roberts-St Jeor-confined to bed) 1235.112 Kcal/Kg value to use for calculation 35 Approximate Energy Requirements Using 1628 kcal/Kg Calculation Used for Recommendations Kcal/kg Additional Notes Protein: 1.2-2 g/Kg ABW; 56-93 g/day. Fluids: 1 ml/Kcal, or as per MD. Nutrition Intervention Nutrition Support: Continue TF-Glucerna 1.2 [place] @ 55 ml/hr. Flush: 250 ml water Q 4 hr while hypernatremia persists, resume to 100 ml when Na is WNL. Kcal 1,584 Protein (gm) 79 Carbohydrates (gm) 151 Fat (gm) 79 Fluid (mL) 1,063 Fiber (gm) 21 % RDI: 97% Kcal; 100% AA. Goal #1 Provide at least 75% of energy /protein needs through Enteral Feeding during LOS. Follow-Up By: 02/13/22 Additional Comments Continue monitoring TF tolerance, Mechanical Ventilation, Hypernatremia, and BM. <MELISSA WHITE - Last Filed: 02/08/22 07:50> Assessment and Plan Assessment and plan: I saw and evaluated the patient. I agree with the findings and the plan of care as documented in the Nurse Practitioner's~note, with the following corrections and additions. Hospitalist Physical - Constitutional Vitals: Temp Pulse Resp BP Pulse Ox 98.8 F 107 H 21 110/77 94 02/08/22 03:12 02/08/22 07:27 02/08/22 06:00 02/08/22 07:27 02/08/22 07:27 HEART Score - HEART Score Troponin: Troponin T < 0.010 ng/mL (0.00-0.029) 02/03/22 16:15 Results - Labs CBC & Chem 7: 02/08/22 03:55 02/08/22 03:55 Labs: Laboratory Last Values WBC 14.7 K/mm3 (4.5-11.0) H 02/08/22 03:55 RBC 3.93 M/mm3 (3.65-5.03) 02/08/22 03:55 Hgb 7.7 gm/dl (10.1-14.3) L 02/08/22 03:55 Hct 25.0 % (30.3-42.9) L 02/08/22 03:55 MCV 64 fl (79-97) L 02/08/22 03:55 MCH 20 pg (28-32) L 02/08/22 03:55 MCHC 31 % (30-34) 02/08/22 03:55 RDW 25.1 % (13.2-15.2) H 02/08/22 03:55 Plt Count 79 K/mm3 (140-440) L 02/08/22 03:55 Lymph % (Auto) Certified Retinal Angiographer 02/02/22 04:00 Add Manual Diff Complete 02/03/22 04:00 Total Counted 50 02/03/22 04:00 Seg Neutrophils % Certified Retinal Angiographer 02/02/22 04:00 Seg Neuts % (Manual) 76.0 % (40.0-70.0) H 02/03/22 04:00 Band Neutrophils % 18.0 % 02/03/22 04:00 Lymphocytes % (Manual) 2.0 % (13.4-35.0) L 02/03/22 04:00 Reactive Lymphs % (Man) 0 % 02/03/22 04:00 Monocytes % (Manual) 4.0 % (0.0-7.3) 02/03/22 04:00 Eosinophils % (Manual) 0 % (0.0-4.3) 02/03/22 04:00 Basophils % (Manual) 0 % (0.0-1.8) 02/03/22 04:00 Metamyelocytes % 0 % 02/03/22 04:00 Myelocytes % 0 % 02/03/22 04:00 Promyelocytes % 0 % 02/03/22 04:00 Blast Cells % 0 % 02/03/22 04:00 Nucleated RBC % 4.0 % (0.0-0.9) H 02/03/22 04:00 Seg Neutrophils # Man 2.8 K/mm3 (1.8-7.7) 02/03/22 04:00 Band Neutrophils # 0.7 K/mm3 02/03/22 04:00 Lymphocytes # (Manual) 0.1 K/mm3 (1.2-5.4) L 02/03/22 04:00 Abs React Lymphs (Man) 0.0 K/mm3 02/03/22 04:00 Monocytes # (Manual) 0.1 K/mm3 (0.0-0.8) 02/03/22 04:00 Eosinophils # (Manual) 0.0 K/mm3 (0.0-0.4) 02/03/22 04:00 Basophils # (Manual) 0.0 K/mm3 (0.0-0.1) 02/03/22 04:00 Metamyelocytes # 0.0 K/mm3 02/03/22 04:00 Myelocytes # 0.0 K/mm3 02/03/22 04:00 Promyelocytes # 0.0 K/mm3 02/03/22 04:00 Blast Cells # 0.0 K/mm3 02/03/22 04:00 WBC Morphology Not Reportable 02/03/22 04:00 Hypersegmented Neuts Not Reportable 02/03/22 04:00 Hyposegmented Neuts Not Reportable 02/03/22 04:00 Hypogranular Neuts Not Reportable 02/03/22 04:00 Smudge Cells Not Reportable 02/03/22 04:00 Toxic Granulation Not Reportable 02/03/22 04:00 Toxic Vacuolation Not Reportable 02/03/22 04:00 Dohle Bodies Few 02/03/22 04:00 Pelger-Huet Anomaly Not Reportable 02/03/22 04:00 Sung Rods Not Reportable 02/03/22 04:00 Platelet Estimate Consistent w auto 02/03/22 04:00 Clumped Platelets Not Reportable 02/03/22 04:00 Plt Clumps, EDTA Not Reportable 02/03/22 04:00 Large Platelets Not Reportable 02/03/22 04:00 Giant Platelets Not Reportable 02/03/22 04:00 Platelet Satelliting Not Reportable 02/03/22 04:00 Plt Morphology Comment Not Reportable 02/03/22 04:00 RBC Morphology Not Reportable 02/03/22 04:00 Dimorphic RBCs Not Reportable 02/03/22 04:00 Polychromasia Not Reportable 02/03/22 04:00 Hypochromasia 3+ 02/03/22 04:00 Poikilocytosis 2+ 02/03/22 04:00 Anisocytosis 1+ 02/03/22 04:00 Microcytosis 2+ 02/03/22 04:00 Macrocytosis Not Reportable 02/03/22 04:00 Spherocytes Not Reportable 02/03/22 04:00 Pappenheimer Bodies Not Reportable 02/03/22 04:00 Sickle Cells Not Reportable 02/03/22 04:00 Target Cells 1+ 02/03/22 04:00 Tear Drop Cells Few 02/03/22 04:00 Ovalocytes Few 02/03/22 04:00 Helmet Cells Not Reportable 02/03/22 04:00 Starr-Dahlgren Bodies Not Reportable 02/03/22 04:00 [place] Rings Not Reportable 02/03/22 04:00 [place] Cells 1+ 02/03/22 04:00 Bite Cells Not Reportable 02/03/22 04:00 Crenated Cell Not Reportable 02/03/22 04:00 Elliptocytes Few 02/03/22 04:00 Acanthocytes (Spur) Not Reportable 02/03/22 04:00 Rouleaux Not Reportable 02/03/22 04:00 Hemoglobin C Crystals Not Reportable 02/03/22 04:00 Schistocytes Rare 02/03/22 04:00 Malaria parasites Not Reportable 02/03/22 04:00 Percent Retic 0.65 % (0.78-2.58) L 02/08/22 03:55 Sven Bodies Not Reportable 02/03/22 04:00 Hem Pathologist Commnt No 02/03/22 04:00 PT 14.8 Sec. (12.2-14.9) 02/05/22 08:48 INR 1.02 (0.87-1.13) 02/05/22 08:48 APTT 34.4 Sec. (24.2-36.6) 02/05/22 08:48 Fibrinogen 795 mg/dl (211-480) H 02/05/22 08:48 ABG pH 7.488 pH Units (7.350-7.450) H 02/08/22 Unknown POC ABG pCO2 37.3 mmHg (32.0-48.0) 02/02/22 04:49 ABG pCO2 61.4 mm Hg 02/08/22 Unknown POC ABG pO2 79.9 mmHg (83-108) L 02/02/22 04:49 ABG pO2 63.1 mm Hg (80.0-90.0) L 02/08/22 Unknown POC ABG HCO3 30.3 02/02/22 04:49 ABG HCO3 45.5 mmol/L (20.0-26.0) H 02/08/22 Unknown ABG O2 Saturation 94.1 % (95.0-99.0) L 02/08/22 Unknown ABG O2 Content 11.4 (0.0-44) 02/08/22 Unknown POC ABG Base Excess 7.1 02/02/22 04:49 ABG Base Excess 19.8 mmol/L (-2.0-3.0) H 02/08/22 Unknown ABG Hemoglobin 8.7 gm/dl (12.0-16.0) L 02/08/22 Unknown ABG Oxyhemoglobin 96.0 (94-98) 02/02/22 04:49 ABG Carboxyhemoglobin 1.3 % (0.0-5.0) 02/08/22 Unknown ABG Methemoglobin 0.5 % (0.0-1.5) 02/08/22 Unknown ABG Sodium Not Reportable 02/02/22 04:49 ABG Potassium Not Reportable 02/02/22 04:49 ABG Chloride Not Reportable 02/02/22 04:49 ABG Glucose Not Reportable 02/02/22 04:49 Oxyhemoglobin 92.4 % (95.0-99.0) L 02/08/22 Unknown Carboxyhemoglobin 0.2 (0.5-1.5) L 02/02/22 04:49 FiO2 90 % 02/08/22 Unknown FiO2 % 60.0 02/02/22 04:49 Sodium 145 mmol/L (137-145) 02/08/22 03:55 Potassium 3.0 mmol/L (3.6-5.0) L 02/08/22 03:55 Chloride 93.9 mmol/L (98-107) L 02/08/22 03:55 Carbon Dioxide 44 mmol/L (22-30) H* 02/08/22 03:55 Anion Gap 10 mmol/L 02/08/22 03:55 BUN 30 mg/dL (7-17) H 02/08/22 03:55 Creatinine 0.7 mg/dL (0.6-1.2) 02/08/22 03:55 Estimated GFR > 60 ml/min 02/08/22 03:55 BUN/Creatinine Ratio 43 % 02/08/22 03:55 Glucose 229 mg/dL (65-100) H 02/08/22 03:55 POC Glucose 235 mg/dL (70-105) H 02/08/22 05:20 Hemoglobin A1c 11.1 % (4-6) H 02/01/22 12:54 Lactic Acid 2.50 mmol/L (0.7-2.0) H* 02/06/22 11:50 Calcium 8.3 mg/dL (8.4-10.2) L 02/08/22 03:55 Phosphorus 2.30 mg/dL (2.5-4.5) L 02/08/22 03:55 Magnesium 2.20 mg/dL (1.7-2.3) 02/08/22 03:55 Total Bilirubin 0.20 mg/dL (0.1-1.2) 02/08/22 03:55 Direct Bilirubin < 0.2 mg/dL (0-0.2) 02/08/22 03:55 Indirect Bilirubin 0.0 mg/dL 02/08/22 03:55 AST 77 units/L (5-40) H 02/08/22 03:55 ALT 49 units/L (7-56) 02/08/22 03:55 Alkaline Phosphatase 246 units/L (35-129) H 02/08/22 03:55 Lactate Dehydrogenase 879 units/L (91-180) H 02/05/22 04:40 Troponin T < 0.010 ng/mL (0.00-0.029) 02/03/22 16:15 Total Protein 5.2 g/dL (6.3-8.2) L 02/08/22 03:55 Albumin 2.7 g/dL (3.9-5) L 02/08/22 03:55 Albumin/Globulin Ratio 1.1 % 02/08/22 03:55 Arterial Blood Glucose Not Reportable 02/02/22 04:49 Urine Color Yellow (Yellow) 02/04/22 09:15 Urine Turbidity Cloudy (Clear) 02/04/22 09:15 Urine pH 6.0 (5.0-7.0) 02/04/22 09:15 Ur Specific [place] 1.025 (1.003-1.030) 02/04/22 09:15 Urine Protein >500 mg/dL (Negative) 02/04/22 09:15 Urine Glucose (UA) Negative mg/dL (Negative) 02/04/22 09:15 Urine Ketones Negative mg/dL (Negative) 02/04/22 09:15 Urine Blood Large (Negative) A 02/04/22 09:15 Urine Nitrite Negative (Negative) 02/04/22 09:15 Ur Reducing Substances Not Reportable 01/31/22 22:49 Urine Bilirubin Negative (Negative) 02/04/22 09:15 Urine Ictotest Not Reportable 01/31/22 22:49 Urine Urobilinogen < 2.0 mg/dL (<2.0) 02/04/22 09:15 Ur Leukocyte Esterase Negative (Negative) 02/04/22 09:15 Urine WBC (Auto) 12.0 /HPF (0.0-6.0) H 02/04/22 09:15 Urine RBC (Auto) 107.0 /HPF (0.0-6.0) 02/04/22 09:15 U Epithel Cells (Auto) 1.0 /HPF (0-13.0) 02/04/22 09:15 Urine Bacteria (Auto) 1+ /HPF (Negative) 02/04/22 09:15 Urine Mucus Few /HPF 02/04/22 09:15 Urine Yeast (Budding) 2+ /HPF 02/04/22 09:15 Vancomycin Trough 28.6 ug/mL (5.0-20.0) H 02/05/22 Unknown Coronavirus (PCR) Negative (Negative) 02/02/22 10:44 SARS-CoV-2 (PCR) Negative (Negative) 02/01/22 08:50 HIV 1&2 Antibody Rapid Non react (Non React) 02/04/22 14:37 HIV P24 Antigen Non react (Non React) 02/04/22 14:37 Blood Type A POSITIVE 02/04/22 20:22 Antibody Screen Negative 02/04/22 20:22 Crossmatch See Detail 02/04/22 20:22 Microbiology: Microbiology 02/04/22 14:37 Peripheral/Venous Blood Culture - Preliminary NO GROWTH AFTER 72 HOURS 02/04/22 14:37 Peripheral/Venous Blood Culture - Preliminary NO GROWTH AFTER 72 HOURS 02/04/22 14:37 Peripheral/Venous Blood Fungal Culture - Preliminary Culture in Progress 02/04/22 09:15 Urine,Clean Catch Urine Culture - Final NO GROWTH AFTER 48 HOURS Gastelum/IV: Voiding Method External Female Catheter Active Medications - Current Medications Current Medications: Generic Name Dose Route Start Last Admin Trade Name Freq PRN Reason Stop Dose Admin Acetaminophen 650 mg 02/01/22 00:57 02/04/22 11:58 Acetaminophen 325 Mg Tab PO 650 mg Q4H PRN Administration Pain MILD(1-3)/Fever >100.5/ROSADO Albumin Human 12.5 gm 02/07/22 21:00 Albumin Human 25% (12.5 Gm/50 Ml) Inj IV ONCE JAMIL Albuterol 2.5 mg 02/01/22 00:57 Albuterol 2.5 Mg/3 Ml Nebu IH Q3HRT PRN Shortness Of Breath Lipase/Protease/Amylase 1 each 02/02/22 08:08 Lipase 10,500/Protease 25,000/Amylase 43,750 (Units) Dr Avelar FEEDTUBE PRN PRN For Clogged Feeding Tube Atorvastatin Calcium 20 mg 02/03/22 22:00 02/07/22 21:14 Atorvastatin 20 Mg Tab FEEDTUBE 20 mg QHS JAMIL Administration Dextrose 50 ml 02/02/22 08:00 02/05/22 11:52 Dextrose 50% In Water (25gm) 50 Ml Syringe IV 25 ml Q30MIN PRN Administration Hypoglycemia Protocol Docusate Sodium 100 mg 02/07/22 10:00 02/07/22 21:14 Docusate Sodium 100 Mg/10 Ml Oral Liqd PO 100 mg BID JAMIL Administration Famotidine 20 mg 02/04/22 10:00 02/07/22 21:14 Famotidine 20 Mg Tab FEEDTUBE 20 mg BID JAMIL Administration Fentanyl 50 mcg 02/02/22 09:45 02/08/22 05:49 Fentanyl 100 Mcg/2 Ml Inj IV 50 mcg Q10MIN PRN Administration ANALGESIA Hydrocortisone Sodium Succinate 100 mg 02/06/22 13:00 02/08/22 05:20 Hydrocortisone Sod Succ 100 Mg/2 Ml Vial IV 100 mg Q8HR JAMIL Administration Hydrophilic Ointment 1 applic 02/01/22 18:52 Lip Therapy Vaseline TP Q2HR PRN Dry Lips NORepinephrine/NS 8 MG-250 ML 8 mg in 250 mls @ 3.75 mls/hr 02/01/22 20:00 02/07/22 19:18 Norepinephrine/Ns 8 Mg-250 Ml (Double Conc) IV 0 mcg/min TITRATE JAMIL 0 mls/hr Titration Protocol 2 MCG/MIN Propofol 1,000 mg in 100 mls @ 1.429 mls/hr 02/01/22 19:17 02/08/22 06:19 Diprivan 10 Mg/Ml IV 5 mcg/kg/min TITR JAMIL 1.429 mls/hr Titration Protocol 5 MCG/KG/MIN Fentanyl Citrate 2,000 mcg in 100 mls @ 2.381 mls/hr 02/02/22 10:00 02/08/22 00:28 Fentanyl Drip Premix IV 4 mcg/kg/hr TITR JAMIL 9.525 mls/hr Administration Protocol 1 MCG/KG/HR Phenylephrine HCl 100 mg/ 100 mls @ 3 mls/hr 02/03/22 14:15 02/07/22 19:18 Sodium Chloride IV 0 mcg/min TITR JAMIL 0 mls/hr Titration Protocol 50 MCG/MIN Sodium Chloride 500 mls @ 5 mls/hr 02/04/22 03:00 02/08/22 05:21 Nacl 0.9% 500 Ml IV 5 mls/hr DIRECT JAMIL Administration Vasopressin 20 unit/ Sodium 101 mls @ 9.09 mls/hr 02/04/22 09:15 02/07/22 19:18 Chloride IV 0 units/min TITR JAMIL 0 mls/hr Titration Protocol 0.03 UNITS/MIN Ceftriaxone Sodium 2 gm in 100 mls @ 200 mls/hr 02/05/22 16:00 02/07/22 19:18 Rocephin/Ns 2 Gm/100 Ml IV Infused Q24H [facility] Infusion Protocol Insulin Glargine 25 units 02/07/22 22:00 02/07/22 21:14 Insulin Glargine 100 Units/Ml SUB-Q 25 units QHS JAMIL Administration Insulin Human Regular 0 units 02/02/22 18:00 02/08/22 05:20 Insulin Regular, Human 100 Units/1 Ml SUB-Q 4 units Q6H JAMIL Administration Protocol Multi-Ingred Cream/Lotion/Oil/Oint 1 applic 02/01/22 18:52 Mineral Oil/Petrolatum, White Ophth Oint 3.5 Gm OU Q4HR PRN Dry Eye(s) Ondansetron HCl 4 mg 02/01/22 00:57 Ondansetron 4 Mg/2 Ml Inj IV Q8H PRN Nausea And Vomiting Senna/Docusate Sodium 2 tab 02/07/22 10:00 02/07/22 21:14 Sennosides/Docusate Sodium 8.6/50 Mg Tab PO 2 tab Q12H JAMIL Administration Simple Syrup 15 ml 02/02/22 08:08 Simple Syrup 15 Ml FEEDTUBE PRN PRN Hypoglycemia Simple Syrup 30 ml 02/02/22 08:08 Simple Syrup 15 Ml FEEDTUBE PRN PRN Hypoglycemia Sodium Bicarbonate 325 mg 02/02/22 08:08 Sodium Bicarbonate 325 Mg Tab FEEDTUBE PRN PRN For Clogged Feeding Tube Sodium Chloride 10 ml 02/01/22 10:00 02/07/22 21:14 Sodium Chloride 0.9% 10 Ml Flush Syringe IV 10 ml BID JAMIL Administration Sodium Chloride 10 ml 02/01/22 00:57 Sodium Chloride 0.9% 10 Ml Flush Syringe IV PRN PRN LINE FLUSH Nutrition/Malnutrition Assess - Dietary Evaluation Nutrition/Malnutrition Findings: Nutrition Notes Start: 02/01/22 17:50 Freq: Status: Active Protocol: Document 02/06/22 09:48 JACQUELINE (Rec: 02/06/22 10:15 JACQUELINE [id number]) Nutrition Notes Initial or Follow up Brief Note Current Diagnosis Diabetes,Sepsis,Respiratory Failure Other Pertinent Diagnosis s/p DKA, s/p PEA Arrest, Pneumonia, Pyuria, Pancytopenia, UTI, ... Current Diet TF-Glucerna 1.2 [place] @ 55 ml/hr (since L 02/04). Labs/Tests 02/06: Na 146, K 3.4, CO2 31, BUN 21, Glu 230. Pertinent Medications 02/06: Humulin R 4U, KCl 10mEq , others nutritionally unremarkable. Height 5 ft 4 in Weight 46.5 kg [place] Body Weight (kg) 54.54 BMI 17.6 Weight change and time frame 0.2 Kg body weight loss reported in 2 days. Weight Status Underweight Subjective/Other Information RD consult for TF tolerance/ continuation. TF continues as prescribed, and well tolerated, according to RN notes. RN note on 02/05/22 03:49: 08/2021 0040 I hung new container TF glucerna @ 55 ml/ hr with FWF container rate @ FWF 100 ml q4hr, see manager internet notes, to OGT. - END OF NOTE. Pt remains on Mechanical Ventilation, O2 saturation @ 96%, according to Physical Assessment History notes. Pt remains incontinent, according to Physical Assessment History notes. Percent of energy/protein needs met: Prescribed TF-Glucerna 1.2 [place] @ 55 ml/hr provides for energy/protein needs (1584 Kcal/79 g) during LOS, 97% Kcal; 100% AA. #1 Nutrition Diagnosis Inadequate oral intake Diagnosis Progress(for reassessment Continues documentation) Is patient on ventilator? Yes Is Patient Ambulatory and/or Out of Bed No REE-([facility]-confined to bed) 1235.112 Kcal/Kg value to use for calculation 35 Approximate Energy Requirements Using 1628 kcal/Kg Calculation Used for Recommendations Kcal/kg Additional Notes Protein: 1.2-2 g/Kg ABW; 56-93 g/day. Fluids: 1 ml/Kcal, or as per MD. Nutrition Intervention Nutrition Support: Continue TF-Glucerna 1.2 [place] @ 55 ml/hr. Flush: 250 ml water Q 4 hr while hypernatremia persists, resume to 100 ml when Na is WNL. Kcal 1,584 Protein (gm) 79 Carbohydrates (gm) 151 Fat (gm) 79 Fluid (mL) 1,063 Fiber (gm) 21 % RDI: 97% Kcal; 100% AA. Goal #1 Provide at least 75% of energy /protein needs through Enteral Feeding during LOS. Follow-Up By: 02/13/22 Additional Comments Continue monitoring TF tolerance, Mechanical Ventilation, Hypernatremia, and BM.
--- NOTE | 2022-02-07 14:35 | Progress Note ---
Assessment and Plan Cultures: 01/31/2022 blood culture: No growth 02/01/2022 tracheal aspirate culture: Klebsiella pneumoniae COVID-19 PCR: Negative 02/04/2022 blood culture: no growth so far 02/04/2022 fungal blood culture: no growth so far A/P: 61-year-old female was admitted from [facility] with hypoglycemia: #Refractory septic shock, severe acidosis, s/p PEA arrest on 02/01/2022. #Bilateral pneumonia: Probably aspiration following PEA arrest. Initial chest x-ray did not show any pneumonia. Now with severe b/l pneumonia. #Possible UTI: UA showed pyuria #Acute hypoxic respiratory failure with ARDS: On mechanical ventilation. #Diabetic ketoacidosis on admission #Pancytopenia, neutropenia, thrombocytopenia: ?sepsis. Seen by hematology. HIV negative. Recs: -remains off pressors, continue IV ceftriaxone, complete total 7 days -Poor prognosis. Noted family meeting outcome Doroteo Morales MD, [facility] ([facility] O: [phone] F: [phone] C: [phone] Subjective Date of service: 02/07/22 Principal diagnosis: DKA, s/p cardiopulmonary arrest Interval history: Afebrile. Remains on the vent, 90% FiO2. Remains off pressors. Objective - Exam Narrative Exam: Physical Exam: Constitutional: sedated, intubated, on the vent Head, Ears, Nose: Normocephalic, atraumatic. External ears, nose normal Eyes: Conjunctivae/corneas clear. No icterus. No ptosis. Neck: intubated Oral: intubated Cardiovascular: S1, S2 + Respiratory: AE fair bilaterally and equal GI: Soft, bowel sounds + Musculoskeletal: No pedal edema, no cyanosis. Skin: No rash or abscess Hem/Lymphatic: No palpable cervical or supraclavicular nodes. No lymphangitis Psych: no agitation Neurological: sedated, intubated, on the vent, exam limited - Constitutional Vitals: Vital Signs Temp Pulse Resp BP Pulse Ox 99.1 F 108 H 26 H 102/70 99 02/07/22 08:00 02/07/22 12:15 02/07/22 12:15 02/07/22 12:15 02/07/22 12:15 Temperature -Last 24 Hours Temperature 99.1 F Temperature 98.8 F Temperature 99.1 F Temperature 99.5 F Temperature 100.4 F - Labs CBC & Chem 7: 02/07/22 04:12 02/07/22 04:12 Labs: Abnormal lab results 02/06/22 02/06/22 02/07/22 Range/Units 17:41 21:41 00:17 WBC (4.5-11.0) K/mm3 Hgb (10.1-14.3) gm/dl Hct (30.3-42.9) % MCV (79-97) fl MCH (28-32) pg RDW (13.2-15.2) % Plt Count (140-440) K/mm3 ABG pH (7.350-7.450) pH Units ABG pO2 (80.0-90.0) mm Hg ABG HCO3 (20.0-26.0) mmol/L ABG O2 Saturation (95.0-99.0) % ABG Base Excess (-2.0-3.0) mmol/L ABG Hemoglobin (12.0-16.0) gm/dl Oxyhemoglobin (95.0-99.0) % Sodium (137-145) mmol/L Potassium (3.6-5.0) mmol/L Carbon Dioxide (22-30) mmol/L BUN (7-17) mg/dL Glucose (65-100) mg/dL POC Glucose 208 H 282 H 342 H (70-105) mg/dL Phosphorus (2.5-4.5) mg/dL AST (5-40) units/L Alkaline Phosphatase (35-129) units/L Total Protein (6.3-8.2) g/dL Albumin (3.9-5) g/dL 02/07/22 02/07/22 02/07/22 Range/Units 00:19 04:12 04:12 WBC 13.1 H (4.5-11.0) K/mm3 Hgb 8.5 L (10.1-14.3) gm/dl Hct 26.4 L (30.3-42.9) % MCV 62 L (79-97) fl MCH 20 L (28-32) pg RDW 24.2 H (13.2-15.2) % Plt Count 57 L (140-440) K/mm3 ABG pH (7.350-7.450) pH Units ABG pO2 (80.0-90.0) mm Hg ABG HCO3 (20.0-26.0) mmol/L ABG O2 Saturation (95.0-99.0) % ABG Base Excess (-2.0-3.0) mmol/L ABG Hemoglobin (12.0-16.0) gm/dl Oxyhemoglobin (95.0-99.0) % Sodium 149 H (137-145) mmol/L Potassium 3.1 L (3.6-5.0) mmol/L Carbon Dioxide 38 H D (22-30) mmol/L BUN 23 H (7-17) mg/dL Glucose 298 H (65-100) mg/dL POC Glucose 209 H (70-105) mg/dL Phosphorus 2.10 L (2.5-4.5) mg/dL AST 49 H (5-40) units/L Alkaline Phosphatase 248 H (35-129) units/L Total Protein 5.4 L (6.3-8.2) g/dL Albumin 2.7 L (3.9-5) g/dL 02/07/22 02/07/22 02/07/22 Range/Units 04:40 07:09 07:13 WBC (4.5-11.0) K/mm3 Hgb (10.1-14.3) gm/dl Hct (30.3-42.9) % MCV (79-97) fl MCH (28-32) pg RDW (13.2-15.2) % Plt Count (140-440) K/mm3 ABG pH 7.474 H (7.350-7.450) pH Units ABG pO2 62.1 L (80.0-90.0) mm Hg ABG HCO3 39.1 H (20.0-26.0) mmol/L ABG O2 Saturation 94.7 L (95.0-99.0) % ABG Base Excess 13.9 H (-2.0-3.0) mmol/L ABG Hemoglobin 8.6 L (12.0-16.0) gm/dl Oxyhemoglobin 93.0 L (95.0-99.0) % Sodium (137-145) mmol/L Potassium (3.6-5.0) mmol/L Carbon Dioxide (22-30) mmol/L BUN (7-17) mg/dL Glucose (65-100) mg/dL POC Glucose 399 H 418 H (70-105) mg/dL Phosphorus (2.5-4.5) mg/dL AST (5-40) units/L Alkaline Phosphatase (35-129) units/L Total Protein (6.3-8.2) g/dL Albumin (3.9-5) g/dL 02/07/22 Range/Units 12:20 WBC (4.5-11.0) K/mm3 Hgb (10.1-14.3) gm/dl Hct (30.3-42.9) % MCV (79-97) fl MCH (28-32) pg RDW (13.2-15.2) % Plt Count (140-440) K/mm3 ABG pH (7.350-7.450) pH Units ABG pO2 (80.0-90.0) mm Hg ABG HCO3 (20.0-26.0) mmol/L ABG O2 Saturation (95.0-99.0) % ABG Base Excess (-2.0-3.0) mmol/L ABG Hemoglobin (12.0-16.0) gm/dl Oxyhemoglobin (95.0-99.0) % Sodium (137-145) mmol/L Potassium (3.6-5.0) mmol/L Carbon Dioxide (22-30) mmol/L BUN (7-17) mg/dL Glucose (65-100) mg/dL POC Glucose 229 H (70-105) mg/dL Phosphorus (2.5-4.5) mg/dL AST (5-40) units/L Alkaline Phosphatase (35-129) units/L Total Protein (6.3-8.2) g/dL Albumin (3.9-5) g/dL
[2022-02-07] MEDS: cefTRIAXone/NS 2 GM/100 ML 2 GM/100 ML BAG IV SCH (15:34)
[2022-02-07] MEDS ORDERED: INSULIN GLARGINE 100 UNITS/ML SUB-Q SCH (22:00)
[2022-02-08] MEDS: fentaNYL DRIP Premix 2,000 MCG/100 ML BAG IV SCH ×3 (00:28→20:33)
[2022-02-08 04:04] LABS: Hemoglobin 7.7 gm/dl (10.1-14.3); Mean Corpuscular HGB Conc 31 % (30-34); Red Blood Count 3.93 M/mm3 (3.65-5.03)
[2022-02-08 04:07] LABS: Mean Corpuscular Volume 64 fl (79-97)
[2022-02-08 04:08] LABS: Platelet Count 79 K/mm3 (140-440); Red Cell Distribution Width 25.1 % (13.2-15.2)
[2022-02-08 04:44] LABS: ABG Base Excess 19.8 mmol/L (-2.0-3.0); ABG HCO3 45.5 mmol/L (20.0-26.0); ABG Methemoglobin 0.5 % (0.0-1.5); ABG Oxygen Saturation 94.1 % (95.0-99.0); ABG PCO2 61.4 mm Hg; ABG PH 7.488 pH Units (7.350-7.450); ABG PO2 63.1 mm Hg (80.0-90.0)
[2022-02-08 04:48] LABS: Alanine Aminotransferase 49 units/L (7-56); Albumin 2.7 g/dL (3.9-5); Blood Urea Nitrogen 30 mg/dL (7-17); Calcium 8.3 mg/dL (8.4-10.2); Hemolysis Index 9
[2022-02-08 05:00] LABS: BUN/Creatinine Ratio 43
[2022-02-08 05:01] LABS: Bilirubin,Direct < 0.2 mg/dL (0-0.2)
[2022-02-08] MEDS: INSULIN REGULAR, HUMAN 100 UNITS/1 ML SUB-Q SCH ×3 (05:20→17:43)
[2022-02-08] MEDS: HYDROCORTISONE SOD SUCC 100 MG/2 ML VIAL IV SCH ×3 (05:20→21:43)
[2022-02-08] MEDS: SODIUM CHLORIDE 0.9% 500 ML 500 ML IV SCH (05:21)
[2022-02-08] MEDS ORDERED: POTASSIUM CHLORIDE 20 MEQ 20 MEQ/100 ML BAG IV ONE (05:35)
[2022-02-08] MEDS: fentaNYL 100 MCG/2 ML INJ IV PRN (05:49)
[2022-02-08] MEDS ORDERED: POTASSIUM CHLORIDE 20 MEQ PACKET FEEDTUBE NR (08:48)
[2022-02-08] MEDS ORDERED: ALBUMIN HUMAN 25% (12.5 GM/50 ML) INJ IV SCH (09:00)
[2022-02-08] MEDS ORDERED: FUROSEMIDE 40 MG/4 ML INJ IV SCH (09:30)
[2022-02-08] MEDS: DOCUSATE SODIUM 100 MG/10 ML ORAL LIQD PO SCH ×2 (10:02→21:42)
[2022-02-08] MEDS: FAMOTIDINE 20 MG TAB FEEDTUBE SCH ×2 (10:02→21:42)
[2022-02-08] MEDS: SENNOSIDES/DOCUSATE SODIUM 8.6/50 MG TAB PO SCH ×2 (10:10→22:13)
[2022-02-08] MEDS ORDERED: SODIUM CHLORIDE 0.9% 1000 ML 1,000 ML ONE (10:20)
[2022-02-08] MEDS: K-PHOS NEUTRAL 250 MG TAB PO SCH ×3 (10:23→17:44)
--- NOTE | 2022-02-08 11:37 | Progress Note ---
Assessment and Plan Cultures: 01/31/2022 blood culture: No growth 02/01/2022 tracheal aspirate culture: Klebsiella pneumoniae COVID-19 PCR: Negative 02/04/2022 blood culture: no growth so far 02/04/2022 urine culture: No growth 02/04/2022 fungal blood culture: no growth so far A/P: 61-year-old female was admitted from [facility] with hypoglycemia: #Refractory septic shock, severe acidosis, s/p PEA arrest on 02/01/2022. #Bilateral pneumonia: Probably aspiration following PEA arrest. Initial chest x-ray did not show any pneumonia. Now with severe b/l pneumonia. #Possible UTI: UA showed pyuria #Acute hypoxic respiratory failure with ARDS: On mechanical ventilation. #Diabetic ketoacidosis on admission #Pancytopenia, neutropenia, thrombocytopenia: ?sepsis. Seen by hematology. HIV negative. Gradually improving. Recs: -remains off pressors, continue IV ceftriaxone, complete total 7 days ending 02/12/2022 -Poor prognosis Doroteo Morales MD, FACP, [facility] ([facility]) O: [phone] F: [phone] C: [phone] Subjective Date of service: 02/08/22 Principal diagnosis: DKA, s/p cardiopulmonary arrest Interval history: Afebrile. Remains on the vent, down to 85% FiO2. Remains off pressors. D/W RN. Objective - Exam Narrative Exam: Physical Exam: Constitutional: sedated, intubated, on the vent Head, Ears, Nose: Normocephalic, atraumatic. External ears, nose normal Eyes: Conjunctivae/corneas clear. No icterus. No ptosis. Neck: intubated Oral: intubated Cardiovascular: S1, S2 + Respiratory: AE fair bilaterally and equal GI: Soft, bowel sounds + Musculoskeletal: No pedal edema, no cyanosis. Skin: No rash or abscess Hem/Lymphatic: No palpable cervical or supraclavicular nodes. No lymphangitis Psych: no agitation Neurological: sedated, intubated, on the vent, exam limited - Constitutional Vitals: Vital Signs Temp Pulse Resp BP Pulse Ox 99.1 F 106 H 21 98/71 95 02/08/22 08:00 02/08/22 08:45 02/08/22 08:45 02/08/22 08:45 02/08/22 08:45 Temperature -Last 24 Hours Temperature 99.1 F Temperature 98.8 F Temperature 99.3 F Temperature 99 F Temperature 99.0 F Temperature 99.0 F - Labs CBC & Chem 7: 02/08/22 03:55 02/08/22 03:55 Labs: Abnormal lab results 02/07/22 02/07/22 02/07/22 Range/Units 12:20 17:29 23:37 WBC (4.5-11.0) K/mm3 Hgb (10.1-14.3) gm/dl Hct (30.3-42.9) % MCV (79-97) fl MCH (28-32) pg RDW (13.2-15.2) % Plt Count (140-440) K/mm3 Percent Retic (0.78-2.58) % ABG pH (7.350-7.450) pH Units ABG pO2 (80.0-90.0) mm Hg ABG HCO3 (20.0-26.0) mmol/L ABG O2 Saturation (95.0-99.0) % ABG Base Excess (-2.0-3.0) mmol/L ABG Hemoglobin (12.0-16.0) gm/dl Oxyhemoglobin (95.0-99.0) % Potassium (3.6-5.0) mmol/L Chloride (98-107) mmol/L Carbon Dioxide (22-30) mmol/L BUN (7-17) mg/dL Glucose (65-100) mg/dL POC Glucose 229 H 159 H 236 H (70-105) mg/dL Calcium (8.4-10.2) mg/dL Phosphorus (2.5-4.5) mg/dL AST (5-40) units/L Alkaline Phosphatase (35-129) units/L Total Protein (6.3-8.2) g/dL Albumin (3.9-5) g/dL 02/08/22 02/08/22 02/08/22 Range/Units 03:55 03:55 05:20 WBC 14.7 H (4.5-11.0) K/mm3 Hgb 7.7 L (10.1-14.3) gm/dl Hct 25.0 L (30.3-42.9) % MCV 64 L (79-97) fl MCH 20 L (28-32) pg RDW 25.1 H (13.2-15.2) % Plt Count 79 L (140-440) K/mm3 Percent Retic 0.65 L (0.78-2.58) % ABG pH (7.350-7.450) pH Units ABG pO2 (80.0-90.0) mm Hg ABG HCO3 (20.0-26.0) mmol/L ABG O2 Saturation (95.0-99.0) % ABG Base Excess (-2.0-3.0) mmol/L ABG Hemoglobin (12.0-16.0) gm/dl Oxyhemoglobin (95.0-99.0) % Potassium 3.0 L (3.6-5.0) mmol/L Chloride 93.9 L (98-107) mmol/L Carbon Dioxide 44 H* (22-30) mmol/L BUN 30 H (7-17) mg/dL Glucose 229 H (65-100) mg/dL POC Glucose 235 H (70-105) mg/dL Calcium 8.3 L (8.4-10.2) mg/dL Phosphorus 2.30 L (2.5-4.5) mg/dL AST 77 H (5-40) units/L Alkaline Phosphatase 246 H (35-129) units/L Total Protein 5.2 L (6.3-8.2) g/dL Albumin 2.7 L (3.9-5) g/dL 02/08/22 Range/Units Unknown WBC (4.5-11.0) K/mm3 Hgb (10.1-14.3) gm/dl Hct (30.3-42.9) % MCV (79-97) fl MCH (28-32) pg RDW (13.2-15.2) % Plt Count (140-440) K/mm3 Percent Retic (0.78-2.58) % ABG pH 7.488 H (7.350-7.450) pH Units ABG pO2 63.1 L (80.0-90.0) mm Hg ABG HCO3 45.5 H (20.0-26.0) mmol/L ABG O2 Saturation 94.1 L (95.0-99.0) % ABG Base Excess 19.8 H (-2.0-3.0) mmol/L ABG Hemoglobin 8.7 L (12.0-16.0) gm/dl Oxyhemoglobin 92.4 L (95.0-99.0) % Potassium (3.6-5.0) mmol/L Chloride (98-107) mmol/L Carbon Dioxide (22-30) mmol/L BUN (7-17) mg/dL Glucose (65-100) mg/dL POC Glucose (70-105) mg/dL Calcium (8.4-10.2) mg/dL Phosphorus (2.5-4.5) mg/dL AST (5-40) units/L Alkaline Phosphatase (35-129) units/L Total Protein (6.3-8.2) g/dL Albumin (3.9-5) g/dL
--- NOTE | 2022-02-08 12:10 | Progress Note ---
<NICOLA TREVINO - Last Filed: 02/08/22 18:00> Assessment and Plan Assessment and plan: This is a 61-year-old female with known past medical history of DM, dementia, HLD, and HTN initially admitted for Hypoglycemia then went into DKA and was transferred to the ICU where she PEA arrested on 02/01. Patient is now with septic shock and on ventilatory support. Hospital Course to Date: 02/01: patient was transferred to ICU as lab work was consistent with DKA and started on insulin drip. Central line placed for IV access. Patient was given bicarb push and started on a bicarb drip. She was also started on Rocephin due to UTI however antibiotics are broadened to cefepime and vancomycin. 02/02: s/p cardiac arrest on 02/01. Bicarbonate drip discontinued. Pancytopenia noted, anion gap closed and transitioned to SSI and long-acting insulin. Patient was having hypoglycemia this morning which has been corrected now. Started on tube feeding. Potassium and phosphorus will be repleted. Hype rnatremia noted and FWF started with tube feedings. COVID-19 PCR pending. Venous Doppler ultrasound pending. Neurology and cardiology consulted. Echocardiogram pending. Patient currently on Levophed and sedated with propofol. Fentanyl added. Given 1 LR bolus this morning for hypotension. 02/03: LR bolus x2, remains on levophed, tachycardia and EKG completed which shows tachycardia. Increase in FiO2, Will culture with next temp spike. Will give 1 gm Calcium Gluconate. 02/04: S/p Bronch this am by [facility] at the bedside. Patient still spiking high temp despite broad spectrum IV Abx. Remains on high pressors with worsen neutropenia and thrombocytopenia. Will panculture this am, antifungal culture was also ordered. Continue current empiric IV Abx for now, awaiting sensitivity. Will also consult ID for further eval. Possible Hematology consult for pancytopenia per CCM. Possible family meeting with [facility] this week, case management to arrange. 02/05: Back up on full support on the vent. CXR with worsen bilateral opacities, S/p X1 dose of IV lasix. Patient also received 1units of PRBCs overnight due to anemia, H&H stable this am and no s/s of any active bleeding. Patient remains pancytopenic, still febrile. IV abx changed to Merrem and Vanc per ID, hematology consult pending. ST with episodes of SVT this am, plan for amiodarone gtt per Cardio. Off pressors this am. BP remains boderline, 25% IV Albumin and X1 dose of additional IV lasix gain today per CCM. Continue FWF for hypernatremi a. Lantus adjusted due to hypoglycemia. Possible family meeting tomorrow with [facility]. 83: Decompensated this am, sudden drop in SPO2 in the 80s, HR in the 50s, and MAP in the 40s. Back on 2 pressors, on 100% FIO2 and 12 of peep. Stat ABG pending, 1amp Bcarb given, stress dose steroids initiated. This an CXR reviewed with worsen opacities from prior. Patient remains on IV abx per ID. Hematology recommendations appreciated. Event discussed with [facility] who agreed with current intervention. Patient's daughter and sister were notified via phone. Current events, patient's diagnosis, overal condition, and poor prognosis were thoroughly discussed. GOC was also addressed with patient's daughter and sister, they voiced that if patient was able to speak for herself she would want all lifesaving measures, including CPR and medications if her heart stop. All questions and concerns were addressed at this time. They verbalized understanding and agreed with current care plan. Patient remains a FULL code status at This time. 84: Responded well to IV lasix and albumin overnight. CXR with some improvement today. IV lasix and albumin gain today per CCM. With increased WOB and tachpnea this am, low dose propofol added for RASS goal of 0 to -2. Wean FIO2 as tolerated for SPO2 goal above 92%. Worsen hyperglycemia this am, most like due to IV steroids, insulin therapy adjusted. Monitor and replace electrolytes as needed. Family meeting today with [facility], patient remains a FULL code status. 02/08: Tolerating gentle diurese. Patient missed overnight IV lasix/albumin dose, will repeat another dose this morning. Continue to wean Fio2 as tolerated. Remains off pressors, VSS. Concern for BLE ischemia probably due to hypoperfusion vs pressor use. Will check BLE arterial doppler to r/o occlusion. Possible Vascular Surgery consult dependent on doppler result. Lantus adjusted for persisting hyperglycemia. Electrolytes repleted, monitor and replace electrolytes as needed. Assessment and Plan #Septic Shock #Supraventricular Tachycardia(SVT) #S/p PEA Arrest with ROSC #H/o HTN, HLD - Coded in the ICU on 02/01, PEA arrest - ROSC achieved post 1amp of bcarb and EPI - With tachycardia, persistent fevers, s/p multiple pressors - off pressors this am. ST on the monitor, VSS - On Stress dose steroids - Echo reviewed, EF 55-60%, see report for detail - Cardiology consulted, appreciated recommendations - amiodarone gtt transitioned to PO per Cardio - Continue blood pressure monitor per protocol - Presor on standby for MAP less than 65 #Acute Hypoxic Respiratory Failure #ARDS #Bilateral Pneumonia - Intubated during code on 02/01 - This am CXR with worsening bilateral airspace opacities - 02/04 s/p Bronchoscopy at the bedside by [facility]- BAL sent to lab - Vent setting: PRVC-85%,10,12,350 - ABG and this am CXR with some improvement today - Continue IV lasix & albumin - CCM consulted, appreciate recommendations - Continue IV Abx, IV steroids, and Nebs per CCM - wean Fio2 as tolerated - VAP bundle addressed - Aspiration precaution HOB above 30 - Daily ABG and CXR - Continue SPO2 monitoring for SPO2 goal above 92% #Septic Shock #Bilateral Pneumonia #Urinary Tract Infection(UTI) - With high fevers, neutropenia, thrombocytopenia, tachycardia, and hypotensive on multiple pressors - UA consistent with pyuria, Blood cultures with NGTD, Sputum culture with Klebsiella Pneumoniae - BLE doppler negative for DVT - repeat cultures with NGTD - ID consulted, appreciate recommendations - Leukocytosis most likely due to IV Steroids - Continue IV Abx per ID- Rocephin - f/u on culture - Monitor CBC and temperature curve #Pancytopenia-improved #Microcytic Anemia - Significant drop of WBCs and Plt count from admit - Probably due to septic shock, on IV Abx per ID - S/p 1unit PRBCs - No s/s of active bleeding, H&H stable this am - Continue to trend CBC - Hold AC for now - Hematology consulted, appreciate recommendations #Acute Metabolic Encephalopathy #h/o Dementia - Intubated and Sedated, more restless this am propofol gtt added - Titrate sedations for RASS goal of 0 to -2 - Daily SAT and SBT per CCM - Avoid benzodiazepine to reduce the possibility of delirium - PRN Analgesia for CPOT greater than 3 - Maintenance of sleep-wake cycle - Neurology consulted, appreciate recommendations #Hypokalemia #Hypernatremia - Low K most likely 2/2 IV Lasix - K repleted - Continue FWF Q4hrs for Hypernatremia - Strict intake and output - Avoid nephrotoxic medications - Monitor and replace electrolytes as needed #Concern for BLE Ischemia - probably due to hypoperfusion vs pressor use. - Will check BLE arterial doppler to r/o occlusion. - Possible Vascular Surgery consult dependent on doppler result. #Type 2 Diabetes mellitus #S/p DKA - initially presented with hypoglycemia then went into DKA - s/p DKA protocol - Hemoglobin A1c 11.1 - Now with hyperglycemia, most likely due to IV steroids - Continue BG and SSI Q6hrs and Lantus qHs- increased - Avoid Hypoglycemia #GI/DVT Prophylaxis - PPI- Pepcid - SCDs to bilateral lower extremities while in bed #Advance Care Planning - Patient's diagnosis, overal condition, and poor prognosis were thoroughly discussed. GOC was also addressed with patient's daughter and sister, they voiced that if patient was able to speak for herself she would want all lifesaving measures, including CPR and medications if her heart stop. All questions and concerns were addressed at this time. They verbalized understanding and agreed with current care plan. Patient remains a FULL code status at This time. The high probability of a clinically significant, sudden or life threatening deterioration of the [Multiple] system(s) required my full and direct attention, intervention and personal management. The aggregate critical care time was [60] minutes. This time is in addition to time spent performing reported procedures but includes the following: [x] Data Review and interpretation [x] Patient assessment and monitoring of vital signs [x] Documentation [x] Medication orders and management Disposition Plan: ICU Total Time Spent with Patient (Minutes): 60 History Interval history: Patient seen and examined at the bedside. Intubated and Sedated. Remains off pressors, in ST on the monitor, VSS. Tolerating gentle diurese with good UOP, patient missed last night lasix/albumin dose. BLE ischemia noted, BLE are cool to touch with decreased pulses. [facility] overnight Hospitalist Physical - Physical exam Narrative exam: General appearance: Present: no acute distress, other (Remains on the vent and sedated) - EENT Eyes: Present: mydriasis (sluggish) - Respiratory Respiratory effort: Labored, other(tachypneic) Respiratory: bilateral: rhonchi, wheezing - Cardiovascular Rhythm: regular Heart Sounds: Present: S1 & S2 - Extremities Extremities: Abnormal. BLE cold to touch, ischemia. Diminish pulses Extremity abnormal: edema - Peripheral Assessment Generalized Edema Type: Pitting Edema Degree: 2+ Capillary Refill: < 3 seconds Skin Temperature: Warm Peripheral Pulses: within normal limits - Abdominal General gastrointestinal: soft, non-distended, normal bowel sounds - Integumentary Integumentary: Present: warm (Weeping) - Psychiatric Psychiatric: other (Intubated and sedated) - Neurologic Neurologic: move all extremities(Non-purposeful), other (Intubated and sedated) - Allied Health Allied health notes reviewed: nursing, case management - Constitutional Vitals: Temp Pulse Resp BP Pulse Ox 99.1 F 106 H 21 98/71 95 02/08/22 08:00 02/08/22 08:45 02/08/22 08:45 02/08/22 08:45 02/08/22 08:45 HEART Score - HEART Score Troponin: Troponin T < 0.010 ng/mL (0.00-0.029) 02/03/22 16:15 Results - Labs CBC & Chem 7: 02/08/22 03:55 02/08/22 03:55 Labs: Laboratory Last Values WBC 14.7 K/mm3 (4.5-11.0) H 02/08/22 03:55 RBC 3.93 M/mm3 (3.65-5.03) 02/08/22 03:55 Hgb 7.7 gm/dl (10.1-14.3) L 02/08/22 03:55 Hct 25.0 % (30.3-42.9) L 02/08/22 03:55 MCV 64 fl (79-97) L 02/08/22 03:55 MCH 20 pg (28-32) L 02/08/22 03:55 MCHC 31 % (30-34) 02/08/22 03:55 RDW 25.1 % (13.2-15.2) H 02/08/22 03:55 Plt Count 79 K/mm3 (140-440) L 02/08/22 03:55 Lymph % (Auto) Quality Compliance Consultant 02/02/22 04:00 Add Manual Diff Complete 02/03/22 04:00 Total Counted 50 02/03/22 04:00 Seg Neutrophils % Quality Compliance Consultant 02/02/22 04:00 Seg Neuts % (Manual) 76.0 % (40.0-70.0) H 02/03/22 04:00 Band Neutrophils % 18.0 % 02/03/22 04:00 Lymphocytes % (Manual) 2.0 % (13.4-35.0) L 02/03/22 04:00 Reactive Lymphs % (Man) 0 % 02/03/22 04:00 Monocytes % (Manual) 4.0 % (0.0-7.3) 02/03/22 04:00 Eosinophils % (Manual) 0 % (0.0-4.3) 02/03/22 04:00 Basophils % (Manual) 0 % (0.0-1.8) 02/03/22 04:00 Metamyelocytes % 0 % 02/03/22 04:00 Myelocytes % 0 % 02/03/22 04:00 Promyelocytes % 0 % 02/03/22 04:00 Blast Cells % 0 % 02/03/22 04:00 Nucleated RBC % 4.0 % (0.0-0.9) H 02/03/22 04:00 Seg Neutrophils # Man 2.8 K/mm3 (1.8-7.7) 02/03/22 04:00 Band Neutrophils # 0.7 K/mm3 02/03/22 04:00 Lymphocytes # (Manual) 0.1 K/mm3 (1.2-5.4) L 02/03/22 04:00 Abs React Lymphs (Man) 0.0 K/mm3 02/03/22 04:00 Monocytes # (Manual) 0.1 K/mm3 (0.0-0.8) 02/03/22 04:00 Eosinophils # (Manual) 0.0 K/mm3 (0.0-0.4) 02/03/22 04:00 Basophils # (Manual) 0.0 K/mm3 (0.0-0.1) 02/03/22 04:00 Metamyelocytes # 0.0 K/mm3 02/03/22 04:00 Myelocytes # 0.0 K/mm3 02/03/22 04:00 Promyelocytes # 0.0 K/mm3 02/03/22 04:00 Blast Cells # 0.0 K/mm3 02/03/22 04:00 WBC Morphology Not Reportable 02/03/22 04:00 Hypersegmented Neuts Not Reportable 02/03/22 04:00 Hyposegmented Neuts Not Reportable 02/03/22 04:00 Hypogranular Neuts Not Reportable 02/03/22 04:00 Smudge Cells Not Reportable 02/03/22 04:00 Toxic Granulation Not Reportable 02/03/22 04:00 Toxic Vacuolation Not Reportable 02/03/22 04:00 Dohle Bodies Few 02/03/22 04:00 Pelger-Huet Anomaly Not Reportable 02/03/22 04:00 Sung Rods Not Reportable 02/03/22 04:00 Platelet Estimate Consistent w auto 02/03/22 04:00 Clumped Platelets Not Reportable 02/03/22 04:00 Plt Clumps, EDTA Not Reportable 02/03/22 04:00 Large Platelets Not Reportable 02/03/22 04:00 Giant Platelets Not Reportable 02/03/22 04:00 Platelet Satelliting Not Reportable 02/03/22 04:00 Plt Morphology Comment Not Reportable 02/03/22 04:00 RBC Morphology Not Reportable 02/03/22 04:00 Dimorphic RBCs Not Reportable 02/03/22 04:00 Polychromasia Not Reportable 02/03/22 04:00 Hypochromasia 3+ 02/03/22 04:00 Poikilocytosis 2+ 02/03/22 04:00 Anisocytosis 1+ 02/03/22 04:00 Microcytosis 2+ 02/03/22 04:00 Macrocytosis Not Reportable 02/03/22 04:00 Spherocytes Not Reportable 02/03/22 04:00 Pappenheimer Bodies Not Reportable 02/03/22 04:00 Sickle Cells Not Reportable 02/03/22 04:00 Target Cells 1+ 02/03/22 04:00 Tear Drop Cells Few 02/03/22 04:00 Ovalocytes Few 02/03/22 04:00 Helmet Cells Not Reportable 02/03/22 04:00 Starr-Kennedy Bodies Not Reportable 02/03/22 04:00 [place] Rings Not Reportable 02/03/22 04:00 [place] Cells 1+ 02/03/22 04:00 Bite Cells Not Reportable 02/03/22 04:00 Crenated Cell Not Reportable 02/03/22 04:00 Elliptocytes Few 02/03/22 04:00 Acanthocytes (Spur) Not Reportable 02/03/22 04:00 Rouleaux Not Reportable 02/03/22 04:00 Hemoglobin C Crystals Not Reportable 02/03/22 04:00 Schistocytes Rare 02/03/22 04:00 Malaria parasites Not Reportable 02/03/22 04:00 Percent Retic 0.65 % (0.78-2.58) L 02/08/22 03:55 Sven Bodies Not Reportable 02/03/22 04:00 Hem Pathologist Commnt No 02/03/22 04:00 PT 14.8 Sec. (12.2-14.9) 02/05/22 08:48 INR 1.02 (0.87-1.13) 02/05/22 08:48 APTT 34.4 Sec. (24.2-36.6) 02/05/22 08:48 Fibrinogen 795 mg/dl (211-480) H 02/05/22 08:48 ABG pH 7.488 pH Units (7.350-7.450) H 02/08/22 Unknown POC ABG pCO2 37.3 mmHg (32.0-48.0) 02/02/22 04:49 ABG pCO2 61.4 mm Hg 02/08/22 Unknown POC ABG pO2 79.9 mmHg (83-108) L 02/02/22 04:49 ABG pO2 63.1 mm Hg (80.0-90.0) L 02/08/22 Unknown POC ABG HCO3 30.3 02/02/22 04:49 ABG HCO3 45.5 mmol/L (20.0-26.0) H 02/08/22 Unknown ABG O2 Saturation 94.1 % (95.0-99.0) L 02/08/22 Unknown ABG O2 Content 11.4 (0.0-44) 02/08/22 Unknown POC ABG Base Excess 7.1 02/02/22 04:49 ABG Base Excess 19.8 mmol/L (-2.0-3.0) H 02/08/22 Unknown ABG Hemoglobin 8.7 gm/dl (12.0-16.0) L 02/08/22 Unknown ABG Oxyhemoglobin 96.0 (94-98) 02/02/22 04:49 ABG Carboxyhemoglobin 1.3 % (0.0-5.0) 02/08/22 Unknown ABG Methemoglobin 0.5 % (0.0-1.5) 02/08/22 Unknown ABG Sodium Not Reportable 02/02/22 04:49 ABG Potassium Not Reportable 02/02/22 04:49 ABG Chloride Not Reportable 02/02/22 04:49 ABG Glucose Not Reportable 02/02/22 04:49 Oxyhemoglobin 92.4 % (95.0-99.0) L 02/08/22 Unknown Carboxyhemoglobin 0.2 (0.5-1.5) L 02/02/22 04:49 FiO2 90 % 02/08/22 Unknown FiO2 % 60.0 02/02/22 04:49 Sodium 145 mmol/L (137-145) 02/08/22 03:55 Potassium 3.0 mmol/L (3.6-5.0) L 02/08/22 03:55 Chloride 93.9 mmol/L (98-107) L 02/08/22 03:55 Carbon Dioxide 44 mmol/L (22-30) H* 02/08/22 03:55 Anion Gap 10 mmol/L 02/08/22 03:55 BUN 30 mg/dL (7-17) H 02/08/22 03:55 Creatinine 0.7 mg/dL (0.6-1.2) 02/08/22 03:55 Estimated GFR > 60 ml/min 02/08/22 03:55 BUN/Creatinine Ratio 43 % 02/08/22 03:55 Glucose 229 mg/dL (65-100) H 02/08/22 03:55 POC Glucose 193 mg/dL (70-105) H 02/08/22 11:47 Hemoglobin A1c 11.1 % (4-6) H 02/01/22 12:54 Lactic Acid 2.50 mmol/L (0.7-2.0) H* 02/06/22 11:50 Calcium 8.3 mg/dL (8.4-10.2) L 02/08/22 03:55 Phosphorus 2.30 mg/dL (2.5-4.5) L 02/08/22 03:55 Magnesium 2.20 mg/dL (1.7-2.3) 02/08/22 03:55 Total Bilirubin 0.20 mg/dL (0.1-1.2) 02/08/22 03:55 Direct Bilirubin < 0.2 mg/dL (0-0.2) 02/08/22 03:55 Indirect Bilirubin 0.0 mg/dL 02/08/22 03:55 AST 77 units/L (5-40) H 02/08/22 03:55 ALT 49 units/L (7-56) 02/08/22 03:55 Alkaline Phosphatase 246 units/L (35-129) H 02/08/22 03:55 Lactate Dehydrogenase 879 units/L (91-180) H 02/05/22 04:40 Troponin T < 0.010 ng/mL (0.00-0.029) 02/03/22 16:15 Total Protein 5.2 g/dL (6.3-8.2) L 02/08/22 03:55 Albumin 2.7 g/dL (3.9-5) L 02/08/22 03:55 Albumin/Globulin Ratio 1.1 % 02/08/22 03:55 Arterial Blood Glucose Not Reportable 02/02/22 04:49 Urine Color Yellow (Yellow) 02/04/22 09:15 Urine Turbidity Cloudy (Clear) 02/04/22 09:15 Urine pH 6.0 (5.0-7.0) 02/04/22 09:15 Ur Specific [place] 1.025 (1.003-1.030) 02/04/22 09:15 Urine Protein >500 mg/dL (Negative) 02/04/22 09:15 Urine Glucose (UA) Negative mg/dL (Negative) 02/04/22 09:15 Urine Ketones Negative mg/dL (Negative) 02/04/22 09:15 Urine Blood Large (Negative) A 02/04/22 09:15 Urine Nitrite Negative (Negative) 02/04/22 09:15 Ur Reducing Substances Not Reportable 01/31/22 22:49 Urine Bilirubin Negative (Negative) 02/04/22 09:15 Urine Ictotest Not Reportable 01/31/22 22:49 Urine Urobilinogen < 2.0 mg/dL (<2.0) 02/04/22 09:15 Ur Leukocyte Esterase Negative (Negative) 02/04/22 09:15 Urine WBC (Auto) 12.0 /HPF (0.0-6.0) H 02/04/22 09:15 Urine RBC (Auto) 107.0 /HPF (0.0-6.0) 02/04/22 09:15 U Epithel Cells (Auto) 1.0 /HPF (0-13.0) 02/04/22 09:15 Urine Bacteria (Auto) 1+ /HPF (Negative) 02/04/22 09:15 Urine Mucus Few /HPF 02/04/22 09:15 Urine Yeast (Budding) 2+ /HPF 02/04/22 09:15 Vancomycin Trough 28.6 ug/mL (5.0-20.0) H 02/05/22 Unknown Coronavirus (PCR) Negative (Negative) 02/02/22 10:44 SARS-CoV-2 (PCR) Negative (Negative) 02/01/22 08:50 HIV 1&2 Antibody Rapid Non react (Non React) 02/04/22 14:37 HIV P24 Antigen Non react (Non React) 02/04/22 14:37 Blood Type A POSITIVE 02/04/22 20:22 Antibody Screen Negative 02/04/22 20:22 Crossmatch See Detail 02/04/22 20:22 Microbiology: Microbiology 02/04/22 14:37 Peripheral/Venous Blood Culture - Preliminary NO GROWTH AFTER 72 HOURS 02/04/22 14:37 Peripheral/Venous Blood Culture - Preliminary NO GROWTH AFTER 72 HOURS 02/04/22 14:37 Peripheral/Venous Blood Fungal Culture - Preliminary Culture in Progress 02/04/22 09:15 Urine,Clean Catch Urine Culture - Final NO GROWTH AFTER 48 HOURS Gastelum/IV: Voiding Method External Female Catheter Active Medications - Current Medications Current Medications: Generic Name Dose Route Start Last Admin Trade Name Freq PRN Reason Stop Dose Admin Acetaminophen 650 mg 02/01/22 00:57 02/04/22 11:58 Acetaminophen 325 Mg Tab PO 650 mg Q4H PRN Administration Pain MILD(1-3)/Fever >100.5/ROSADO Albumin Human 12.5 gm 02/07/22 21:00 Albumin Human 25% (12.5 Gm/50 Ml) Inj IV ONCE JAMIL Albumin Human 12.5 gm 02/08/22 09:00 02/08/22 10:02 Albumin Human 25% (12.5 Gm/50 Ml) Inj IV 02/08/22 13:00 12.5 gm ONCE JAMIL Administration Albuterol 2.5 mg 02/01/22 00:57 Albuterol 2.5 Mg/3 Ml Nebu IH Q3HRT PRN Shortness Of Breath Lipase/Protease/Amylase 1 each 02/02/22 08:08 Lipase 10,500/Protease 25,000/Amylase 43,750 (Units) Dr Avelar FEEDTUBE PRN PRN For Clogged Feeding Tube Atorvastatin Calcium 20 mg 02/03/22 22:00 02/07/22 21:14 Atorvastatin 20 Mg Tab FEEDTUBE 20 mg QHS JAMIL Administration Dextrose 50 ml 02/02/22 08:00 02/05/22 11:52 Dextrose 50% In Water (25gm) 50 Ml Syringe IV 25 ml Q30MIN PRN Administration Hypoglycemia Protocol Docusate Sodium 100 mg 02/07/22 10:00 02/08/22 10:02 Docusate Sodium 100 Mg/10 Ml Oral Liqd PO 100 mg BID JAMIL Administration Famotidine 20 mg 02/04/22 10:00 02/08/22 10:02 Famotidine 20 Mg Tab FEEDTUBE 20 mg BID JAMIL Administration Fentanyl 50 mcg 02/02/22 09:45 02/08/22 05:49 Fentanyl 100 Mcg/2 Ml Inj IV 50 mcg Q10MIN PRN Administration ANALGESIA Furosemide 20 mg 02/08/22 09:30 02/08/22 10:02 Furosemide 40 Mg/4 Ml Inj IV 02/08/22 13:00 20 mg ONCE JAMIL Administration Hydrocortisone Sodium Succinate 100 mg 02/06/22 13:00 02/08/22 05:20 Hydrocortisone Sod Succ 100 Mg/2 Ml Vial IV 100 mg Q8HR JAMIL Administration Hydrophilic Ointment 1 applic 02/01/22 18:52 Lip Therapy Vaseline TP Q2HR PRN Dry Lips NORepinephrine/NS 8 MG-250 ML 8 mg in 250 mls @ 3.75 mls/hr 02/01/22 20:00 02/07/22 19:18 Norepinephrine/Ns 8 Mg-250 Ml (Double Conc) IV 0 mcg/min TITRATE JAMIL 0 mls/hr Titration Protocol 2 MCG/MIN Propofol 1,000 mg in 100 mls @ 1.429 mls/hr 02/01/22 19:17 02/08/22 08:42 Diprivan 10 Mg/Ml IV 15 mcg/kg/min TITR JAMIL 4.286 mls/hr Titration Protocol 5 MCG/KG/MIN Fentanyl Citrate 2,000 mcg in 100 mls @ 2.381 mls/hr 02/02/22 10:00 02/08/22 10:10 Fentanyl Drip Premix IV 4 mcg/kg/hr TITR JAMIL 9.525 mls/hr Administration Protocol 1 MCG/KG/HR Phenylephrine HCl 100 mg/ 100 mls @ 3 mls/hr 02/03/22 14:15 02/07/22 19:18 Sodium Chloride IV 0 mcg/min TITR JAMIL 0 mls/hr Titration Protocol 50 MCG/MIN Sodium Chloride 500 mls @ 5 mls/hr 02/04/22 03:00 02/08/22 05:21 Nacl 0.9% 500 Ml IV 5 mls/hr DIRECT JAMIL Administration Vasopressin 20 unit/ Sodium 101 mls @ 9.09 mls/hr 02/04/22 09:15 02/07/22 19:18 Chloride IV 0 units/min TITR JAMIL 0 mls/hr Titration Protocol 0.03 UNITS/MIN Ceftriaxone Sodium 2 gm in 100 mls @ 200 mls/hr 02/05/22 16:00 02/07/22 19:18 Rocephin/Ns 2 Gm/100 Ml IV Infused Q24H [facility] Infusion Protocol Insulin Glargine 30 units 02/08/22 22:00 Insulin Glargine 100 Units/Ml SUB-Q QHS [facility] Insulin Human Regular 0 units 02/02/22 18:00 02/08/22 05:20 Insulin Regular, Human 100 Units/1 Ml SUB-Q 4 units Q6H [facility] Administration Protocol Multi-Ingred Cream/Lotion/Oil/Oint 1 applic 02/01/22 18:52 Mineral Oil/Petrolatum, White Ophth Oint 3.5 Gm OU Q4HR PRN Dry Eye(s) Ondansetron HCl 4 mg 02/01/22 00:57 Ondansetron 4 Mg/2 Ml Inj IV Q8H PRN Nausea And Vomiting Potassium Chloride 40 meq 02/08/22 22:00 Potassium Chloride 20 Meq Packet FEEDTUBE 02/08/22 23:00 ONCE JAMIL Senna/Docusate Sodium 2 tab 02/07/22 10:00 02/08/22 10:10 Sennosides/Docusate Sodium 8.6/50 Mg Tab PO 2 tab Q12H JAMIL Administration Simple Syrup 15 ml 02/02/22 08:08 Simple Syrup 15 Ml FEEDTUBE PRN PRN Hypoglycemia Simple Syrup 30 ml 02/02/22 08:08 Simple Syrup 15 Ml FEEDTUBE PRN PRN Hypoglycemia Sodium Bicarbonate 325 mg 02/02/22 08:08 Sodium Bicarbonate 325 Mg Tab FEEDTUBE PRN PRN For Clogged Feeding Tube Sodium Chloride 10 ml 02/01/22 10:00 02/08/22 10:04 Sodium Chloride 0.9% 10 Ml Flush Syringe IV 10 ml BID JAMIL Administration Sodium Chloride 10 ml 02/01/22 00:57 Sodium Chloride 0.9% 10 Ml Flush Syringe IV PRN PRN LINE FLUSH Sodium Phosphate 250 mg 02/08/22 10:00 02/08/22 10:23 K-Phos Neutral 250 Mg Tab PO 02/08/22 18:01 250 mg QID JAMIL Administration Nutrition/Malnutrition Assess - Dietary Evaluation Nutrition/Malnutrition Findings: Nutrition Notes Start: 02/01/22 17:50 Freq: Status: Active Protocol: Document 02/06/22 09:48 JACQUELINE (Rec: 02/06/22 10:15 JACQUELINE [id number]) Nutrition Notes Initial or Follow up Brief Note Current Diagnosis Diabetes,Sepsis,Respiratory Failure Other Pertinent Diagnosis s/p DKA, s/p PEA Arrest, Pneumonia, Pyuria, Pancytopenia, UTI, ... Current Diet TF-Glucerna 1.2 [place] @ 55 ml/hr (since L 02/04). Labs/Tests 02/06: Na 146, K 3.4, CO2 31, BUN 21, Glu 230. Pertinent Medications 02/06: Humulin R 4U, KCl 10mEq , others nutritionally unremarkable. Height 5 ft 4 in Weight 46.5 kg Horace Body Weight (kg) 54.54 BMI 17.6 Weight change and time frame 0.2 Kg body weight loss reported in 2 days. Weight Status Underweight Subjective/Other Information RD consult for TF tolerance/ continuation. TF continues as prescribed, and well tolerated, according to RN notes. RN note on 02/05/22 03:49: 08/2021 0040 I hung new container TF glucerna @ 55 ml/ hr with FWF container rate @ FWF 100 ml q4hr, see movie writer notes, to OGT. - END OF NOTE. Pt remains on Mechanical Ventilation, O2 saturation @ 96%, according to Physical Assessment History notes. Pt remains incontinent, according to Physical Assessment History notes. Percent of energy/protein needs met: Prescribed TF-Glucerna 1.2 More[place] @ 55 ml/hr provides for energy/protein needs (1584 Kcal/79 g) during LOS, 97% Kcal; 100% AA. #1 Nutrition Diagnosis Inadequate oral intake Diagnosis Progress(for reassessment Continues documentation) Is patient on ventilator? Yes Is Patient Ambulatory and/or Out of Bed No [facility] 1235.112 Kcal/Kg value to use for calculation 35 Approximate Energy Requirements Using 1628 kcal/Kg Calculation Used for Recommendations Kcal/kg Additional Notes Protein: 1.2-2 g/Kg ABW; 56-93 g/day. Fluids: 1 ml/Kcal, or as per MD. Nutrition Intervention Nutrition Support: Continue TF-Glucerna 1.2 Moreno @ 55 ml/hr. Flush: 250 ml water Q 4 hr while hypernatremia persists, resume to 100 ml when Na is WNL. Kcal 1,584 Protein (gm) 79 Carbohydrates (gm) 151 Fat (gm) 79 Fluid (mL) 1,063 Fiber (gm) 21 % RDI: 97% Kcal; 100% AA. Goal #1 Provide at least 75% of energy /protein needs through Enteral Feeding during LOS. Follow-Up By: 02/13/22 Additional Comments Continue monitoring TF tolerance, Mechanical Ventilation, Hypernatremia, and BM. <MELISSA WHITE - Last Filed: 02/09/22 07:28> Assessment and Plan Assessment and plan: I saw and evaluated the patient. I agree with the findings and the plan of care as documented in the Nurse Practitioner's~note, with the following corrections and additions. Hospitalist Physical - Constitutional Vitals: Temp Pulse Resp BP Pulse Ox 99.1 F 110 H 20 96/69 98 02/09/22 04:00 02/09/22 07:15 02/09/22 07:15 02/09/22 07:15 02/09/22 07:15 HEART Score - HEART Score Troponin: Troponin T < 0.010 ng/mL (0.00-0.029) 02/03/22 16:15 Results - Labs CBC & Chem 7: 02/09/22 04:00 02/09/22 04:00 Labs: Laboratory Last Values WBC 16.4 K/mm3 (4.5-11.0) H 02/09/22 04:00 RBC 4.16 M/mm3 (3.65-5.03) 02/09/22 04:00 Hgb 8.2 gm/dl (10.1-14.3) L 02/09/22 04:00 Hct 26.3 % (30.3-42.9) L 02/09/22 04:00 MCV 63 fl (79-97) L 02/09/22 04:00 MCH 20 pg (28-32) L 02/09/22 04:00 MCHC 31 % (30-34) 02/09/22 04:00 RDW 23.9 % (13.2-15.2) H 02/09/22 04:00 Plt Count 128 K/mm3 (140-440) L 02/09/22 04:00 Lymph % (Auto) Quality Compliance Consultant 02/02/22 04:00 Add Manual Diff Complete 02/03/22 04:00 Total Counted 50 02/03/22 04:00 Seg Neutrophils % Quality Compliance Consultant 02/02/22 04:00 Seg Neuts % (Manual) 76.0 % (40.0-70.0) H 02/03/22 04:00 Band Neutrophils % 18.0 % 02/03/22 04:00 Lymphocytes % (Manual) 2.0 % (13.4-35.0) L 02/03/22 04:00 Reactive Lymphs % (Man) 0 % 02/03/22 04:00 Monocytes % (Manual) 4.0 % (0.0-7.3) 02/03/22 04:00 Eosinophils % (Manual) 0 % (0.0-4.3) 02/03/22 04:00 Basophils % (Manual) 0 % (0.0-1.8) 02/03/22 04:00 Metamyelocytes % 0 % 02/03/22 04:00 Myelocytes % 0 % 02/03/22 04:00 Promyelocytes % 0 % 02/03/22 04:00 Blast Cells % 0 % 02/03/22 04:00 Nucleated RBC % 4.0 % (0.0-0.9) H 02/03/22 04:00 Seg Neutrophils # Man 2.8 K/mm3 (1.8-7.7) 02/03/22 04:00 Band Neutrophils # 0.7 K/mm3 02/03/22 04:00 Lymphocytes # (Manual) 0.1 K/mm3 (1.2-5.4) L 02/03/22 04:00 Abs React Lymphs (Man) 0.0 K/mm3 02/03/22 04:00 Monocytes # (Manual) 0.1 K/mm3 (0.0-0.8) 02/03/22 04:00 Eosinophils # (Manual) 0.0 K/mm3 (0.0-0.4) 02/03/22 04:00 Basophils # (Manual) 0.0 K/mm3 (0.0-0.1) 02/03/22 04:00 Metamyelocytes # 0.0 K/mm3 02/03/22 04:00 Myelocytes # 0.0 K/mm3 02/03/22 04:00 Promyelocytes # 0.0 K/mm3 02/03/22 04:00 Blast Cells # 0.0 K/mm3 02/03/22 04:00 WBC Morphology Not Reportable 02/03/22 04:00 Hypersegmented Neuts Not Reportable 02/03/22 04:00 Hyposegmented Neuts Not Reportable 02/03/22 04:00 Hypogranular Neuts Not Reportable 02/03/22 04:00 Smudge Cells Not Reportable 02/03/22 04:00 Toxic Granulation Not Reportable 02/03/22 04:00 Toxic Vacuolation Not Reportable 02/03/22 04:00 Dohle Bodies Few 02/03/22 04:00 Pelger-Huet Anomaly Not Reportable 02/03/22 04:00 Sung Rods Not Reportable 02/03/22 04:00 Platelet Estimate Consistent w auto 02/03/22 04:00 Clumped Platelets Not Reportable 02/03/22 04:00 Plt Clumps, EDTA Not Reportable 02/03/22 04:00 Large Platelets Not Reportable 02/03/22 04:00 Giant Platelets Not Reportable 02/03/22 04:00 Platelet Satelliting Not Reportable 02/03/22 04:00 Plt Morphology Comment Not Reportable 02/03/22 04:00 RBC Morphology Not Reportable 02/03/22 04:00 Dimorphic RBCs Not Reportable 02/03/22 04:00 Polychromasia Not Reportable 02/03/22 04:00 Hypochromasia 3+ 02/03/22 04:00 Poikilocytosis 2+ 02/03/22 04:00 Anisocytosis 1+ 02/03/22 04:00 Microcytosis 2+ 02/03/22 04:00 Macrocytosis Not Reportable 02/03/22 04:00 Spherocytes Not Reportable 02/03/22 04:00 Pappenheimer Bodies Not Reportable 02/03/22 04:00 Sickle Cells Not Reportable 02/03/22 04:00 Target Cells 1+ 02/03/22 04:00 Tear Drop Cells Few 02/03/22 04:00 Ovalocytes Few 02/03/22 04:00 Helmet Cells Not Reportable 02/03/22 04:00 Starr-Kennedy Bodies Not Reportable 02/03/22 04:00 [place] Rings Not Reportable 02/03/22 04:00 Lesly Cells 1+ 02/03/22 04:00 Bite Cells Not Reportable 02/03/22 04:00 Crenated Cell Not Reportable 02/03/22 04:00 Elliptocytes Few 02/03/22 04:00 Acanthocytes (Spur) Not Reportable 02/03/22 04:00 Rouleaux Not Reportable 02/03/22 04:00 Hemoglobin C Crystals Not Reportable 02/03/22 04:00 Schistocytes Rare 02/03/22 04:00 Malaria parasites Not Reportable 02/03/22 04:00 Percent Retic 0.65 % (0.78-2.58) L 02/08/22 03:55 Sven Bodies Not Reportable 02/03/22 04:00 Hem Pathologist Commnt No 02/03/22 04:00 PT 14.8 Sec. (12.2-14.9) 02/05/22 08:48 INR 1.02 (0.87-1.13) 02/05/22 08:48 APTT 34.4 Sec. (24.2-36.6) 02/05/22 08:48 Fibrinogen 795 mg/dl (211-480) H 02/05/22 08:48 ABG pH 7.539 pH Units (7.350-7.450) H 02/09/22 05:30 POC ABG pCO2 37.3 mmHg (32.0-48.0) 02/02/22 04:49 ABG pCO2 50.9 mm Hg 02/09/22 05:30 POC ABG pO2 79.9 mmHg (83-108) L 02/02/22 04:49 ABG pO2 210.4 mm Hg (80.0-90.0) H 02/09/22 05:30 POC ABG HCO3 30.3 02/02/22 04:49 ABG HCO3 42.4 mmol/L (20.0-26.0) H 02/09/22 05:30 ABG O2 Saturation 99.3 % (95.0-99.0) H 02/09/22 05:30 ABG O2 Content 11.2 (0.0-44) 02/09/22 05:30 POC ABG Base Excess 7.1 02/02/22 04:49 ABG Base Excess 18.0 mmol/L (-2.0-3.0) H 02/09/22 05:30 ABG Hemoglobin 7.8 gm/dl (12.0-16.0) L 02/09/22 05:30 ABG Oxyhemoglobin 96.0 (94-98) 02/02/22 04:49 ABG Carboxyhemoglobin 1.3 % (0.0-5.0) 02/09/22 05:30 ABG Methemoglobin 0.6 % (0.0-1.5) 02/09/22 05:30 ABG Sodium Not Reportable 02/02/22 04:49 ABG Potassium Not Reportable 02/02/22 04:49 ABG Chloride Not Reportable 02/02/22 04:49 ABG Glucose Not Reportable 02/02/22 04:49 Oxyhemoglobin 97.5 % (95.0-99.0) 02/09/22 05:30 Carboxyhemoglobin 0.2 (0.5-1.5) L 02/02/22 04:49 FiO2 80 % 02/09/22 05:30 FiO2 % 60.0 02/02/22 04:49 Sodium 149 mmol/L (137-145) H 02/09/22 04:00 Potassium 3.1 mmol/L (3.6-5.0) L 02/09/22 04:00 Chloride 97.6 mmol/L (98-107) L 02/09/22 04:00 Carbon Dioxide 42 mmol/L (22-30) H* 02/09/22 04:00 Anion Gap 14 mmol/L 02/09/22 04:00 BUN 27 mg/dL (7-17) H 02/09/22 04:00 Creatinine 0.6 mg/dL (0.6-1.2) 02/09/22 04:00 Estimated GFR > 60 ml/min 02/09/22 04:00 BUN/Creatinine Ratio 45 % 02/09/22 04:00 Glucose 257 mg/dL (65-100) H 02/09/22 04:00 POC Glucose 260 mg/dL (70-105) H 02/09/22 06:07 Hemoglobin A1c 11.1 % (4-6) H 02/01/22 12:54 Lactic Acid 2.50 mmol/L (0.7-2.0) H* 02/06/22 11:50 Calcium 8.2 mg/dL (8.4-10.2) L 02/09/22 04:00 Phosphorus 1.90 mg/dL (2.5-4.5) L 02/09/22 04:00 Magnesium 2.20 mg/dL (1.7-2.3) 02/09/22 04:00 Total Bilirubin 0.20 mg/dL (0.1-1.2) 02/09/22 04:00 Direct Bilirubin < 0.2 mg/dL (0-0.2) 02/08/22 03:55 Indirect Bilirubin 0.0 mg/dL 02/08/22 03:55 AST 81 units/L (5-40) H 02/09/22 04:00 ALT 54 units/L (7-56) 02/09/22 04:00 Alkaline Phosphatase 229 units/L (35-129) H 02/09/22 04:00 Lactate Dehydrogenase 879 units/L (91-180) H 02/05/22 04:40 Troponin T < 0.010 ng/mL (0.00-0.029) 02/03/22 16:15 Total Protein 5.4 g/dL (6.3-8.2) L 02/09/22 04:00 Albumin 2.6 g/dL (3.9-5) L 02/09/22 04:00 Albumin/Globulin Ratio 0.9 % 02/09/22 04:00 Arterial Blood Glucose Not Reportable 02/02/22 04:49 Urine Color Yellow (Yellow) 02/04/22 09:15 Urine Turbidity Cloudy (Clear) 02/04/22 09:15 Urine pH 6.0 (5.0-7.0) 02/04/22 09:15 Ur Specific [place] 1.025 (1.003-1.030) 02/04/22 09:15 Urine Protein >500 mg/dL (Negative) 02/04/22 09:15 Urine Glucose (UA) Negative mg/dL (Negative) 02/04/22 09:15 Urine Ketones Negative mg/dL (Negative) 02/04/22 09:15 Urine Blood Large (Negative) A 02/04/22 09:15 Urine Nitrite Negative (Negative) 02/04/22 09:15 Ur Reducing Substances Not Reportable 01/31/22 22:49 Urine Bilirubin Negative (Negative) 02/04/22 09:15 Urine Ictotest Not Reportable 01/31/22 22:49 Urine Urobilinogen < 2.0 mg/dL (<2.0) 02/04/22 09:15 Ur Leukocyte Esterase Negative (Negative) 02/04/22 09:15 Urine WBC (Auto) 12.0 /HPF (0.0-6.0) H 02/04/22 09:15 Urine RBC (Auto) 107.0 /HPF (0.0-6.0) 02/04/22 09:15 U Epithel Cells (Auto) 1.0 /HPF (0-13.0) 02/04/22 09:15 Urine Bacteria (Auto) 1+ /HPF (Negative) 02/04/22 09:15 Urine Mucus Few /HPF 02/04/22 09:15 Urine Yeast (Budding) 2+ /HPF 02/04/22 09:15 Vancomycin Trough 28.6 ug/mL (5.0-20.0) H 02/05/22 Unknown Coronavirus (PCR) Negative (Negative) 02/02/22 10:44 SARS-CoV-2 (PCR) Negative (Negative) 02/01/22 08:50 HIV 1&2 Antibody Rapid Non react (Non React) 02/04/22 14:37 HIV P24 Antigen Non react (Non React) 02/04/22 14:37 Blood Type A POSITIVE 02/04/22 20:22 Antibody Screen Negative 02/04/22 20:22 Crossmatch See Detail 02/04/22 20:22 Microbiology: Microbiology 02/04/22 14:37 Peripheral/Venous Blood Culture - Preliminary NO GROWTH AFTER 4 DAYS 02/04/22 14:37 Peripheral/Venous Blood Culture - Preliminary NO GROWTH AFTER 4 DAYS 02/04/22 14:37 Peripheral/Venous Blood Fungal Culture - Preliminary Culture in Progress Gastelum/IV: Voiding Method External Female Catheter Active Medications - Current Medications Current Medications: Generic Name Dose Route Start Last Admin Trade Name Freq PRN Reason Stop Dose Admin Acetaminophen 650 mg 02/01/22 00:57 02/04/22 11:58 Acetaminophen 325 Mg Tab PO 650 mg Q4H PRN Administration Pain MILD(1-3)/Fever >100.5/ROSADO Albumin Human 12.5 gm 02/07/22 21:00 Albumin Human 25% (12.5 Gm/50 Ml) Inj IV ONCE JAMIL Albuterol 2.5 mg 02/01/22 00:57 Albuterol 2.5 Mg/3 Ml Nebu IH Q3HRT PRN Shortness Of Breath Lipase/Protease/Amylase 1 each 02/02/22 08:08 Lipase 10,500/Protease 25,000/Amylase 43,750 (Units) Dr Avelar FEEDTUBE PRN PRN For Clogged Feeding Tube Atorvastatin Calcium 20 mg 02/03/22 22:00 02/08/22 21:42 Atorvastatin 20 Mg Tab FEEDTUBE 20 mg QHS JAMIL Administration Dextrose 50 ml 02/02/22 08:00 02/05/22 11:52 Dextrose 50% In Water (25gm) 50 Ml Syringe IV 25 ml Q30MIN PRN Administration Hypoglycemia Protocol Docusate Sodium 100 mg 02/07/22 10:00 02/08/22 21:42 Docusate Sodium 100 Mg/10 Ml Oral Liqd PO 100 mg BID JAMIL Administration Famotidine 20 mg 02/04/22 10:00 02/08/22 21:42 Famotidine 20 Mg Tab FEEDTUBE 20 mg BID JAMIL Administration Fentanyl 50 mcg 02/02/22 09:45 02/08/22 05:49 Fentanyl 100 Mcg/2 Ml Inj IV 50 mcg Q10MIN PRN Administration ANALGESIA Hydrocortisone Sodium Succinate 100 mg 02/06/22 13:00 02/09/22 05:57 Hydrocortisone Sod Succ 100 Mg/2 Ml Vial IV 100 mg Q8HR JAMIL Administration Hydrophilic Ointment 1 applic 02/01/22 18:52 Lip Therapy Vaseline TP Q2HR PRN Dry Lips NORepinephrine/NS 8 MG-250 ML 8 mg in 250 mls @ 3.75 mls/hr 02/01/22 20:00 02/07/22 19:18 Norepinephrine/Ns 8 Mg-250 Ml (Double Conc) IV 0 mcg/min TITRATE JAMIL 0 mls/hr Titration Protocol 2 MCG/MIN Propofol 1,000 mg in 100 mls @ 1.429 mls/hr 02/01/22 19:17 02/08/22 16:30 Diprivan 10 Mg/Ml IV 0 mcg/kg/min TITR JAMIL 0 mls/hr Titration Protocol 5 MCG/KG/MIN Fentanyl Citrate 2,000 mcg in 100 mls @ 2.381 mls/hr 02/02/22 10:00 02/08/22 20:48 Fentanyl Drip Premix IV 2 mcg/kg/hr TITR JAMIL 4.763 mls/hr Titration Protocol 1 MCG/KG/HR Phenylephrine HCl 100 mg/ 100 mls @ 3 mls/hr 02/03/22 14:15 02/07/22 19:18 Sodium Chloride IV 0 mcg/min TITR JAMIL 0 mls/hr Titration Protocol 50 MCG/MIN Sodium Chloride 500 mls @ 5 mls/hr 02/04/22 03:00 02/08/22 05:21 Nacl 0.9% 500 Ml IV 5 mls/hr DIRECT JAMIL Administration Vasopressin 20 unit/ Sodium 101 mls @ 9.09 mls/hr 02/04/22 09:15 02/07/22 19:18 Chloride IV 0 units/min TITR JAMIL 0 mls/hr Titration Protocol 0.03 UNITS/MIN Ceftriaxone Sodium 2 gm in 100 mls @ 200 mls/hr 02/05/22 16:00 02/08/22 18:13 Rocephin/Ns 2 Gm/100 Ml IV 02/11/22 16:29 Infused [facility]H [facility] Infusion Protocol Insulin Glargine 30 units 02/08/22 22:00 02/08/22 21:41 Insulin Glargine 100 Units/Ml SUB-Q 30 units QHS JAMIL Administration Insulin Human Regular 0 units 02/02/22 18:00 02/09/22 06:09 Insulin Regular, Human 100 Units/1 Ml SUB-Q 6 units Q6H JAMIL Administration Protocol Multi-Ingred Cream/Lotion/Oil/Oint 1 applic 02/01/22 18:52 Mineral Oil/Petrolatum, White Ophth Oint 3.5 Gm OU Q4HR PRN Dry Eye(s) Ondansetron HCl 4 mg 02/01/22 00:57 Ondansetron 4 Mg/2 Ml Inj IV Q8H PRN Nausea And Vomiting Potassium Chloride 40 meq 02/09/22 08:00 Potassium Chloride 20 Meq Packet FEEDTUBE 02/09/22 08:01 ONCE ONE Senna/Docusate Sodium 2 tab 02/07/22 10:00 02/08/22 22:13 Sennosides/Docusate Sodium 8.6/50 Mg Tab PO 2 tab Q12H JAMIL Administration Simple Syrup 15 ml 02/02/22 08:08 Simple Syrup 15 Ml FEEDTUBE PRN PRN Hypoglycemia Simple Syrup 30 ml 02/02/22 08:08 Simple Syrup 15 Ml FEEDTUBE PRN PRN Hypoglycemia Sodium Bicarbonate 325 mg 02/02/22 08:08 Sodium Bicarbonate 325 Mg Tab FEEDTUBE PRN PRN For Clogged Feeding Tube Sodium Chloride 10 ml 02/01/22 10:00 02/08/22 21:43 Sodium Chloride 0.9% 10 Ml Flush Syringe IV 10 ml BID JAMIL Administration Sodium Chloride 10 ml 02/01/22 00:57 02/09/22 05:59 Sodium Chloride 0.9% 10 Ml Flush Syringe IV 10 ml PRN PRN Administration LINE FLUSH Nutrition/Malnutrition Assess - Dietary Evaluation Nutrition/Malnutrition Findings: Nutrition Notes Start: 02/01/22 17:50 Freq: Status: Active Protocol: Document 02/06/22 09:48 JACQUELINE (Rec: 02/06/22 10:15 JACQUELINE [id number]) Nutrition Notes Initial or Follow up Brief Note Current Diagnosis Diabetes,Sepsis,Respiratory Failure Other Pertinent Diagnosis s/p DKA, s/p PEA Arrest, Pneumonia, Pyuria, Pancytopenia, UTI, ... Current Diet TF-Glucerna 1.2 More[place] @ 55 ml/hr (since L 02/04). Labs/Tests 02/06: Na 146, K 3.4, CO2 31, BUN 21, Glu 230. Pertinent Medications 02/06: Humulin R 4U, KCl 10mEq , others nutritionally unremarkable. Height 5 ft 4 in Weight 46.5 kg Horace Body Weight (kg) 54.54 BMI 17.6 Weight change and time frame 0.2 Kg body weight loss reported in 2 days. Weight Status Underweight Subjective/Other Information RD consult for TF tolerance/ continuation. TF continues as prescribed, and well tolerated, according to RN notes. RN note on 02/05/22 03:49: 08/2021 0040 I hung new container TF glucerna @ 55 ml/ hr with FWF container rate @ FWF 100 ml q4hr, see movie writer notes, to OGT. - END OF NOTE. Pt remains on Mechanical Ventilation, O2 saturation @ 96%, according to Physical Assessment History notes. Pt remains incontinent, according to Physical Assessment History notes. Percent of energy/protein needs met: Prescribed TF-Glucerna 1.2 [place] @ 55 ml/hr provides for energy/protein needs (1584 Kcal/79 g) during LOS, 97% Kcal; 100% AA. #1 Nutrition Diagnosis Inadequate oral intake Diagnosis Progress(for reassessment Continues documentation) Is patient on ventilator? Yes Is Patient Ambulatory and/or Out of Bed No REE-([facility]-confined to bed) 1235.112 Kcal/Kg value to use for calculation 35 Approximate Energy Requirements Using 1628 kcal/Kg Calculation Used for Recommendations Kcal/kg Additional Notes Protein: 1.2-2 g/Kg ABW; 56-93 g/day. Fluids: 1 ml/Kcal, or as per MD. Nutrition Intervention Nutrition Support: Continue TF-Glucerna 1.2 [place] @ 55 ml/hr. Flush: 250 ml water Q 4 hr while hypernatremia persists, resume to 100 ml when Na is WNL. Kcal 1,584 Protein (gm) 79 Carbohydrates (gm) 151 Fat (gm) 79 Fluid (mL) 1,063 Fiber (gm) 21 % RDI: 97% Kcal; 100% AA. Goal #1 Provide at least 75% of energy /protein needs through Enteral Feeding during LOS. Follow-Up By: 02/13/22 Additional Comments Continue monitoring TF tolerance, Mechanical Ventilation, Hypernatremia, and BM.
--- NOTE | 2022-02-08 13:46 | Progress Note ---
Assessment and Plan Patient is a 61-year-old female brought to the ED from a shelter due to altered mental status. Patient found to be in DKA and have cardiopulmonary S/p cardiopulmonary arrest Acute respiratory failure-pulmonology following DKA Sepsis-ID following SVT Hypotension [id number] following Echo 02/02/2022-EF 55 to 60%. Left ventricular diastolic function is normal. Right ventricular systolic function is mildly reduced. Left and right atria normal in size. No pericardial effusion Plan: Patient is s/p cardiopulmonary arrest however previous rhythm unknown/ suspected to be PEA Telemetry reviewed patine remains in sinus tach no further episodes of SVT LFts noted to elevate will hold amiodarone No BBs at this time due to hypotension Patient has normal EF on echo. Will consider ischemic eval once patient is stable Overall poor prognosis Will see as needed over the weekend Patient seen in conjunction with Dr. Schuster who agrees with this plan of care 30 minutes of critical care time spending care and coordination of patient - Patient Problems (1) SVT (supraventricular tachycardia) Current Visit: Yes Status: Acute (2) Acute respiratory failure Current Visit: Yes Status: Acute Qualifiers: Respiratory failure complication: hypoxia Qualified Code(s): J96.01 - Acute respiratory failure with hypoxia (3) Cardiopulmonary arrest with successful resuscitation Current Visit: Yes Status: Acute (4) Hypotension Current Visit: Yes Status: Acute (5) Pancytopenia Current Visit: Yes Status: Acute (6) Sepsis Current Visit: Yes Status: Acute Subjective Date of service: 02/08/22 Principal diagnosis: DKA, s/p cardiopulmonary arrest Interval history: Patient remains intubated and sedated Sinus tach 110s no events on monitor Objective Vital Signs Temp Pulse Pulse Resp BP Pulse Ox 02/08/22 13:30 111 H 22 102/69 97 02/08/22 13:15 111 H 18 90/63 97 02/08/22 13:00 110 H 18 94/63 99 02/08/22 12:45 112 H 20 102/71 97 02/08/22 12:30 112 H 28 H 110/77 98 02/08/22 12:15 112 H 19 91/64 97 02/08/22 12:00 99.5 F 114 H 118 H 46 H 108/73 95 02/08/22 11:45 112 H 36 H 102/72 96 02/08/22 11:30 112 H 24 117/75 92 02/08/22 11:15 113 H 26 H 117/75 93 02/08/22 11:00 112 H 25 H 122/79 92 02/08/22 10:45 110 H 28 H 121/84 91 02/08/22 10:30 112 H 27 H 122/88 97 02/08/22 10:15 113 H 32 H 128/85 92 02/08/22 10:00 111 H 27 H 116/83 92 02/08/22 09:45 109 H 27 H 115/78 93 02/08/22 09:30 110 H 24 108/75 92 02/08/22 09:15 108 H 25 H 107/72 93 02/08/22 09:00 108 H 20 98/69 96 02/08/22 08:45 106 H 21 98/71 95 02/08/22 08:30 107 H 22 94/66 96 02/08/22 08:15 107 H 22 94/61 94 02/08/22 08:00 99.1 F 108 H 108 H 25 H 120/85 93 02/08/22 07:45 108 H 25 H 112/77 93 02/08/22 07:31 108 H 30 H 129/85 91 02/08/22 07:27 107 H 110/77 94 02/08/22 07:15 107 H 30 H 110/77 92 02/08/22 07:00 107 H 22 100/67 94 02/08/22 06:45 108 H 27 H 108/77 93 02/08/22 06:31 109 H 31 H 128/95 93 02/08/22 06:15 106 H 30 H 119/91 94 02/08/22 06:13 96 02/08/22 06:00 106 H 21 98/72 96 02/08/22 05:45 107 H 25 H 105/75 98 02/08/22 05:30 106 H 24 119/80 94 02/08/22 05:15 106 H 26 H 118/93 97 02/08/22 05:00 105 H 27 H 127/86 97 02/08/22 04:45 105 H 26 H 117/79 96 02/08/22 04:30 104 H 25 H 113/76 96 02/08/22 04:19 103 H 119/78 100 02/08/22 04:15 105 H 24 119/78 96 02/08/22 04:00 104 H 104 H 24 112/73 96 02/08/22 03:45 102 H 21 92/60 99 02/08/22 03:30 102 H 24 111/77 98 02/08/22 03:15 104 H 24 104/72 100 02/08/22 03:13 104 H 02/08/22 03:12 98.8 F 02/08/22 03:00 106 H 18 100/70 100 02/08/22 02:45 114 H 21 149/99 91 02/08/22 02:30 114 H 30 H 157/109 86 02/08/22 02:15 33 H 114/83 94 02/08/22 02:00 110 H 28 H 114/83 95 02/08/22 01:45 109 H 24 111/75 93 02/08/22 01:30 109 H 24 108/79 95 02/08/22 01:15 108 H 22 112/82 93 02/08/22 01:00 107 H 21 87/69 97 02/08/22 00:45 106 H 26 H 96/72 94 02/08/22 00:30 105 H 22 94/70 95 02/08/22 00:15 105 H 19 93/67 02/08/22 00:00 105 H 105 H 27 H 107/78 97 02/07/22 23:59 104 H 117/81 97 02/07/22 23:51 99.3 F 104 H 02/07/22 23:45 106 H 21 117/81 95 02/07/22 23:30 106 H 25 H 106/68 94 02/07/22 23:15 108 H 23 119/84 92 02/07/22 23:05 105 H 22 99/73 94 02/07/22 23:00 105 H 22 99/73 92 02/07/22 22:45 107 H 22 110/79 91 02/07/22 22:30 106 H 20 107/78 93 02/07/22 22:15 105 H 20 96/72 96 02/07/22 22:00 104 H 19 106/73 96 02/07/22 21:45 104 H 23 115/80 95 02/07/22 21:30 105 H 21 112/76 98 02/07/22 21:15 103 H 21 105/66 98 02/07/22 21:00 104 H 19 118/76 99 02/07/22 20:45 105 H 16 123/82 97 02/07/22 20:39 104 H 103/72 96 02/07/22 20:30 103 H 19 103/72 96 02/07/22 20:15 105 H 20 104/71 96 02/07/22 20:00 99 F 104 H 21 104/73 94 02/07/22 19:45 105 H 19 99/71 94 02/07/22 19:30 105 H 20 103/70 95 02/07/22 19:26 105 H 22 95 02/07/22 19:24 105 H 02/07/22 19:15 105 H 23 91/76 94 02/07/22 19:00 105 H 17 99/72 97 02/07/22 18:45 105 H 17 99/71 98 02/07/22 18:30 106 H 16 101/73 02/07/22 18:15 106 H 19 104/76 97 02/07/22 18:01 106 H 32 H 131/95 88 02/07/22 17:45 108 H 26 H 117/84 93 02/07/22 17:30 106 H 27 H 108/81 95 02/07/22 17:15 107 H 19 102/75 96 02/07/22 17:00 107 H 18 104/78 96 02/07/22 16:45 108 H 17 102/77 96 02/07/22 16:30 107 H 19 104/74 96 02/07/22 16:15 107 H 18 106/73 97 02/07/22 16:09 107 H 21 98 02/07/22 16:00 99.0 F 108 H 19 112/83 96 02/07/22 15:45 110 H 19 107/77 95 02/07/22 15:30 109 H 22 109/80 95 02/07/22 15:20 109 H 102/75 94 02/07/22 15:15 109 H 21 102/75 02/07/22 15:00 108 H 24 105/73 92 02/07/22 14:45 109 H 20 102/76 89 02/07/22 14:30 107 H 21 104/76 100 02/07/22 14:16 110 H 29 H 126/95 100 02/07/22 14:00 106 H 19 96/78 - Physical Examination General: Other (Intubated and sedated) HEENT: Positive: Normocephaly, Mucus Membranes Moist Neck: Positive: neck supple, trachea midline Cardiac: Positive: Tachycardia Lungs: Positive: Ventilated Respirations Neuro: Positive: Other (Sedated, intubated and mechanically ventilated.) Abdomen: Positive: Soft, Active Bowel Sounds Skin: Negative: Rash Musculoskeletal: No Fluid Collection Extremities: Absent: edema - Labs and Meds Cardiac Enzymes 02/08/22 Range/Units 03:55 AST 77 H (5-40) units/L CBC 02/08/22 Range/Units 03:55 WBC 14.7 H (4.5-11.0) K/mm3 RBC 3.93 (3.65-5.03) M/mm3 Hgb 7.7 L (10.1-14.3) gm/dl Hct 25.0 L (30.3-42.9) % Plt Count 79 L (140-440) K/mm3 Comprehensive Metabolic Panel 02/08/22 Range/Units 03:55 Sodium 145 (137-145) mmol/L Potassium 3.0 L (3.6-5.0) mmol/L Chloride 93.9 L (98-107) mmol/L Carbon Dioxide 44 H* (22-30) mmol/L BUN 30 H (7-17) mg/dL Creatinine 0.7 (0.6-1.2) mg/dL Glucose 229 H (65-100) mg/dL Calcium 8.3 L (8.4-10.2) mg/dL Direct Bilirubin < 0.2 (0-0.2) mg/dL Indirect Bilirubin 0.0 mg/dL AST 77 H (5-40) units/L ALT 49 (7-56) units/L Alkaline Phosphatase 246 H (35-129) units/L Total Protein 5.2 L (6.3-8.2) g/dL Albumin 2.7 L (3.9-5) g/dL - Imaging and Cardiology Echo: report reviewed - Telemetry EKG Rhythm: Sinus Tachycardia - EKG Sinus rhythms and dysrhythmias: sinus tachycardia Myocardial infarction: septal [place] (old age or ind
--- NOTE | 2022-02-08 13:59 | Progress Note ---
Assessment and Plan 02/08/22: Please do not attempt to wean PEEP unless it is compromising clinical state (breath stacking, auto peep, hypotension, etc). Patient is in full blown ARDS needs increased levels of PEEP to help with oxygenation. Now that BP is b onel, if no improvement would even consider increasing PEEP if needed. Discussed with RT today. Spoke with nursing and EARTH SCIENCE PROFESSOR about feet, will obtain arterial dopplers. Hopeful there is no occlusion as given her pancytopenia, not sure that she would be a candidate for anticoagulation. Reviewed [place] Records as she was in [place] at least 3x prior to transfer here, twice during the month of January for DKA. She does have a diagnsosis of schizoaffective disorder. Could not find any meds for this. Will try some BID seroquel and see if this helps with mental state. Increases in sedation have not improved respiratory pattern. Patient did not get albumin and lasix last night but did get this am. Repeat CXR in the morning as well as ABG. If patient's alkalemia worsens would stop. Also given improvement in BP would start to wean stress dose steroids. She does have a diagnosis of HTN along with her diabetes and Dementia and Schizoaffective disorder. Also from reviewing the charts at [place], patient is/was very noncompliant with diabetic regimen so some of her mental state could be vascular disease related to uncontrolled diabetes too. Overall prognosis is guarded. 02/07/22: Family meeting today, please see my event note. albumin and lasix again this morning and then again tonight. Continue steroids. May need insulin drip. Guarded prognosis. 02/06/22: Overall prognosis continues to worsen. She did respond to albumin and lasix with good urine output. Will give again tonight. Bronch results are negative and repeat cultures are negative. CXR continues to be consistent with ARDS. This could be AIP. Now on steroids so will see how she responds. Unfortunately I was not able to meet with the family today but plan to meet with them at 11 tomorrow. appreciate heme help. Given her response to steroids BP salazar, if this is truly acute interstitial pneumonitis, may consider pulse dose steroids. Will discuss with family risks of this as well. 02/05/22: Follow up bronch results. Appreciate ID assistance and changing of abx therapy. COntinue high PEEP and small TV. Ok with permissive hypercapnea as long as pH is >7.2. Follow up heme assessment. Has Kleib in tracheal aspirate. Follow up blood cultures. Will meet with family tomorrow. Overall prognosis is guarded to poor. 02/04/22: Repeat cultures this am while she is febrile. Bronched this am and w tristan taken from right middle lobe. Worsening CXR is likely related to the volume given yesterday. Will consult heme today as her numbers continue to worsen. Gram Negative Rods found in Tracheal aspirate from 02/01. Follow up speciation of this as well as bronch results. Will send for fungal cultures as well. Needs art line. Stop bob and change to vasopressin. Overall prognosis is very very guarded to poor. 02/03/22: Needs repeat culture with next fever spike. concern now that she is still spiking temps on broad spec abx. may need to broaden even more with antifungal but will discuss tomorrow with pharmacy tomorrow. pH is better but worsening hypoxemia. CXR shows bilateral infiltrates. Will consider bronch tomorrow for washing to be sent for culture. Consider Heme consult tomorrow. Echo was stable. Guarded to poor prognosis. Sugar is better today. 02/02/22: Wean Vasopressors as tolerated for maps >65. Check echo. Stop insulin therapy. Q1hour fSbs and cover with sliding scale. Repeat ABG later today to follow pH. May need some diamox later. Patient now neutropenic and thrombocytopenic, repeated CBC and still the same. may need to consider heme consult. For now continue broad spec abx therapy. prognosis is guarded to poor. 2 amps of NaBicarb pushed Started on Insulin drip Central line placement secondary to lack of access Aggressive volume resuscitation q1 hour fsbs and q6 hour BMPs for the next 36-48 hours Supplemental O2 Not a candidate for bipap currently given mental state so if her respiratory status deteriorates would need intubation. Guarded prognosis. Spoke with daughter briefly at bedside. She did not get off her cell phone so not able to have a full conversation with her about her mother. CCT 31 minutes. Subjective Date of service: 02/08/22 Principal diagnosis: DKA, s/p cardiopulmonary arrest Interval history: CXR worse today but ABG slightly better. Now with worsening alkalemia from diuresis. Remains off pressors. Still on stress dose steroids. Small drop in HgB as well but Platelets are better. Objective Vital Signs - 12hr 02/08/22 02/08/22 02/08/22 02:00 02:15 02:30 Temperature Pulse Rate 110 H 114 H Pulse Rate [ From Monitor] Respiratory 28 H 33 H 30 H Rate Blood Pressure 114/83 114/83 157/109 O2 Sat by Pulse 95 94 86 Oximetry 02/08/22 02/08/22 02/08/22 02:45 03:00 03:12 Temperature 98.8 F Pulse Rate 114 H 106 H Pulse Rate [ From Monitor] Respiratory 21 18 Rate Blood Pressure 149/99 100/70 O2 Sat by Pulse 91 100 Oximetry 02/08/22 02/08/22 02/08/22 03:13 03:15 03:30 Temperature Pulse Rate 104 H 104 H 102 H Pulse Rate [ From Monitor] Respiratory 24 24 Rate Blood Pressure 104/72 111/77 O2 Sat by Pulse 100 98 Oximetry 02/08/22 02/08/22 02/08/22 03:45 04:00 04:15 Temperature Pulse Rate 102 H 104 H 105 H Pulse Rate [ 104 H From Monitor] Respiratory 21 24 24 Rate Blood Pressure 92/60 112/73 119/78 O2 Sat by Pulse 99 96 96 Oximetry 02/08/22 02/08/22 02/08/22 04:19 04:30 04:45 Temperature Pulse Rate 103 H 104 H 105 H Pulse Rate [ From Monitor] Respiratory 25 H 26 H Rate Blood Pressure 119/78 113/76 117/79 O2 Sat by Pulse 100 96 96 Oximetry 02/08/22 02/08/22 02/08/22 05:00 05:15 05:30 Temperature Pulse Rate 105 H 106 H 106 H Pulse Rate [ From Monitor] Respiratory 27 H 26 H 24 Rate Blood Pressure 127/86 118/93 119/80 O2 Sat by Pulse 97 97 94 Oximetry 02/08/22 02/08/22 02/08/22 05:45 06:00 06:13 Temperature Pulse Rate 107 H 106 H Pulse Rate [ From Monitor] Respiratory 25 H 21 Rate Blood Pressure 105/75 98/72 O2 Sat by Pulse 98 96 96 Oximetry 02/08/22 02/08/22 02/08/22 06:15 06:31 06:45 Temperature Pulse Rate 106 H 109 H 108 H Pulse Rate [ From Monitor] Respiratory 30 H 31 H 27 H Rate Blood Pressure 119/91 128/95 108/77 O2 Sat by Pulse 94 93 93 Oximetry 02/08/22 02/08/22 02/08/22 07:00 07:15 07:27 Temperature Pulse Rate 107 H 107 H 107 H Pulse Rate [ From Monitor] Respiratory 22 30 H Rate Blood Pressure 100/67 110/77 110/77 O2 Sat by Pulse 94 92 94 Oximetry 02/08/22 02/08/22 02/08/22 07:31 07:45 08:00 Temperature 99.1 F Pulse Rate 108 H 108 H 108 H Pulse Rate [ 108 H From Monitor] Respiratory 30 H 25 H 25 H Rate Blood Pressure 129/85 112/77 120/85 O2 Sat by Pulse 91 93 93 Oximetry 02/08/22 02/08/22 02/08/22 08:15 08:30 08:45 Temperature Pulse Rate 107 H 107 H 106 H Pulse Rate [ From Monitor] Respiratory 22 22 21 Rate Blood Pressure 94/61 94/66 98/71 O2 Sat by Pulse 94 96 95 Oximetry 02/08/22 02/08/22 02/08/22 09:00 09:15 09:30 Temperature Pulse Rate 108 H 108 H 110 H Pulse Rate [ From Monitor] Respiratory 20 25 H 24 Rate Blood Pressure 98/69 107/72 108/75 O2 Sat by Pulse 96 93 92 Oximetry 02/08/22 02/08/22 02/08/22 09:45 10:00 10:15 Temperature Pulse Rate 109 H 111 H 113 H Pulse Rate [ From Monitor] Respiratory 27 H 27 H 32 H Rate Blood Pressure 115/78 116/83 128/85 O2 Sat by Pulse 93 92 92 Oximetry 02/08/22 02/08/22 02/08/22 10:30 10:45 11:00 Temperature Pulse Rate 112 H 110 H 112 H Pulse Rate [ From Monitor] Respiratory 27 H 28 H 25 H Rate Blood Pressure 122/88 121/84 122/79 O2 Sat by Pulse 97 91 92 Oximetry 02/08/22 02/08/22 02/08/22 11:15 11:30 11:45 Temperature Pulse Rate 113 H 112 H 112 H Pulse Rate [ From Monitor] Respiratory 26 H 24 36 H Rate Blood Pressure 117/75 117/75 102/72 O2 Sat by Pulse 93 92 96 Oximetry 02/08/22 02/08/22 02/08/22 12:00 12:15 12:30 Temperature 99.5 F Pulse Rate 114 H 112 H 112 H Pulse Rate [ 118 H From Monitor] Respiratory 46 H 19 28 H Rate Blood Pressure 108/73 91/64 110/77 O2 Sat by Pulse 95 97 98 Oximetry 02/08/22 02/08/22 02/08/22 12:45 13:00 13:15 Temperature Pulse Rate 112 H 110 H 111 H Pulse Rate [ From Monitor] Respiratory 20 18 18 Rate Blood Pressure 102/71 94/63 90/63 O2 Sat by Pulse 97 99 97 Oximetry 02/08/22 13:30 Temperature Pulse Rate 111 H Pulse Rate [ From Monitor] Respiratory 22 Rate Blood Pressure 102/69 O2 Sat by Pulse 97 Oximetry CBC and BMP: 02/08/22 03:55 02/08/22 03:55 ABG, PT/INR, D-dimer: ABG ABG pH 7.488 pH Units (7.350-7.450) H 02/08/22 Unknown POC ABG pCO2 37.3 mmHg (32.0-48.0) 02/02/22 04:49 ABG pCO2 61.4 mm Hg 02/08/22 Unknown POC ABG pO2 79.9 mmHg (83-108) L 02/02/22 04:49 ABG pO2 63.1 mm Hg (80.0-90.0) L 02/08/22 Unknown POC ABG HCO3 30.3 02/02/22 04:49 ABG O2 Saturation 94.1 % (95.0-99.0) L 02/08/22 Unknown PT/INR, D-dimer PT 14.8 Sec. (12.2-14.9) 02/05/22 08:48 INR 1.02 (0.87-1.13) 02/05/22 08:48 Abnormal lab findings: Abnormal Labs 01/31/22 01/31/22 01/31/22 20:33 20:33 20:33 WBC 12.5 H RBC 6.16 H Hgb Hct MCV 61 L MCH 18 L RDW 19.6 H Plt Count Seg Neuts % (Manual) 98.0 H Lymphocytes % (Manual) 0 L Nucleated RBC % 2.0 H Seg Neutrophils # Man 12.3 H Lymphocytes # (Manual) 0.0 L Percent Retic Fibrinogen ABG pH POC ABG pO2 ABG pO2 ABG HCO3 ABG O2 Saturation ABG Base Excess ABG Hemoglobin Oxyhemoglobin Carboxyhemoglobin Sodium Potassium 5.6 H Chloride 110.1 H Carbon Dioxide 9 L* BUN Creatinine Glucose 254 H POC Glucose Hemoglobin A1c Lactic Acid 2.50 H* Calcium 10.8 H Phosphorus Magnesium Direct Bilirubin AST ALT Alkaline Phosphatase Lactate Dehydrogenase Total Protein Albumin Ur Specific [place] Urine Blood Urine WBC (Auto) Vancomycin Trough Crossmatch 01/31/22 02/01/22 02/01/22 22:49 07:34 08:22 WBC RBC Hgb Hct MCV MCH RDW Plt Count Seg Neuts % (Manual) Lymphocytes % (Manual) Nucleated RBC % Seg Neutrophils # Man Lymphocytes # (Manual) Percent Retic Fibrinogen ABG pH POC ABG pO2 ABG pO2 ABG HCO3 ABG O2 Saturation ABG Base Excess ABG Hemoglobin Oxyhemoglobin Carboxyhemoglobin Sodium Potassium 5.8 H Chloride 115.8 H Carbon Dioxide 3 L* BUN Creatinine Glucose 400 H POC Glucose 368 H Hemoglobin A1c Lactic Acid Calcium Phosphorus Magnesium Direct Bilirubin AST ALT Alkaline Phosphatase Lactate Dehydrogenase Total Protein Albumin Ur Specific [place] 1.035 H Urine Blood Small A Urine WBC (Auto) 142.0 H Vancomycin Trough Crossmatch 02/01/22 02/01/22 02/01/22 09:42 12:01 12:54 WBC RBC Hgb Hct MCV MCH RDW Plt Count Seg Neuts % (Manual) Lymphocytes % (Manual) Nucleated RBC % Seg Neutrophils # Man Lymphocytes # (Manual) Percent Retic Fibrinogen ABG pH 7.044 L* POC ABG pO2 ABG pO2 121.0 H ABG HCO3 3.7 L ABG O2 Saturation ABG Base Excess -24.8 L ABG Hemoglobin 9.3 L Oxyhemoglobin Carboxyhemoglobin Sodium Potassium Chloride Carbon Dioxide BUN Creatinine Glucose POC Glucose 382 H Hemoglobin A1c Lactic Acid Calcium Phosphorus 1.40 L Magnesium 1.30 L Direct Bilirubin AST ALT Alkaline Phosphatase Lactate Dehydrogenase Total Protein Albumin Ur Specific [place] Urine Blood Urine WBC (Auto) Vancomycin Trough Crossmatch 02/01/22 02/01/22 02/01/22 12:54 12:54 13:27 WBC RBC Hgb Hct MCV MCH RDW Plt Count Seg Neuts % (Manual) Lymphocytes % (Manual) Nucleated RBC % Seg Neutrophils # Man Lymphocytes # (Manual) Percent Retic Fibrinogen ABG pH POC ABG pO2 ABG pO2 ABG HCO3 ABG O2 Saturation ABG Base Excess ABG Hemoglobin Oxyhemoglobin Carboxyhemoglobin Sodium 148 H D Potassium 3.0 L D Chloride 117.3 H Carbon Dioxide 9 L* BUN Creatinine Glucose 439 H POC Glucose 342 H Hemoglobin A1c 11.1 H Lactic Acid Calcium 7.7 L Phosphorus Magnesium Direct Bilirubin AST ALT Alkaline Phosphatase Lactate Dehydrogenase Total Protein Albumin Ur Specific [place] Urine Blood Urine WBC (Auto) Vancomycin Trough Crossmatch 02/01/22 02/01/22 02/01/22 14:48 15:48 16:54 WBC RBC Hgb Hct MCV MCH RDW Plt Count Seg Neuts % (Manual) Lymphocytes % (Manual) Nucleated RBC % Seg Neutrophils # Man Lymphocytes # (Manual) Percent Retic Fibrinogen ABG pH POC ABG pO2 ABG pO2 ABG HCO3 ABG O2 Saturation ABG Base Excess ABG Hemoglobin Oxyhemoglobin Carboxyhemoglobin Sodium Potassium Chloride Carbon Dioxide BUN Creatinine Glucose POC Glucose 394 H 412 H 352 H Hemoglobin A1c Lactic Acid Calcium Phosphorus Magnesium Direct Bilirubin AST ALT Alkaline Phosphatase Lactate Dehydrogenase Total Protein Albumin Ur Specific [place] Urine Blood Urine WBC (Auto) Vancomycin Trough Crossmatch 02/01/22 02/01/22 02/01/22 18:23 18:53 19:26 WBC RBC Hgb Hct MCV MCH RDW Plt Count Seg Neuts % (Manual) Lymphocytes % (Manual) Nucleated RBC % Seg Neutrophils # Man Lymphocytes # (Manual) Percent Retic Fibrinogen ABG pH 7.331 L POC ABG pO2 ABG pO2 121.4 H ABG HCO3 ABG O2 Saturation ABG Base Excess -4.9 L ABG Hemoglobin 8.4 L Oxyhemoglobin Carboxyhemoglobin Sodium Potassium Chloride Carbon Dioxide BUN Creatinine Glucose POC Glucose 350 H 260 H Hemoglobin A1c Lactic Acid Calcium Phosphorus Magnesium Direct Bilirubin AST ALT Alkaline Phosphatase Lactate Dehydrogenase Total Protein Albumin Ur Specific [place] Urine Blood Urine WBC (Auto) Vancomycin Trough Crossmatch 02/01/22 02/01/22 02/01/22 20:20 21:38 22:41 WBC RBC Hgb Hct MCV MCH RDW Plt Count Seg Neuts % (Manual) Lymphocytes % (Manual) Nucleated RBC % Seg Neutrophils # Man Lymphocytes # (Manual) Percent Retic Fibrinogen ABG pH POC ABG pO2 ABG pO2 ABG HCO3 ABG O2 Saturation ABG Base Excess ABG Hemoglobin Oxyhemoglobin Carboxyhemoglobin Sodium Potassium Chloride Carbon Dioxide BUN Creatinine Glucose POC Glucose 266 H 195 H 150 H Hemoglobin A1c Lactic Acid Calcium Phosphorus Magnesium Direct Bilirubin AST ALT Alkaline Phosphatase Lactate Dehydrogenase Total Protein Albumin Ur Specific [place] Urine Blood Urine WBC (Auto) Vancomycin Trough Crossmatch 02/01/22 02/02/22 02/02/22 23:39 00:25 00:25 WBC RBC Hgb Hct MCV MCH RDW Plt Count Seg Neuts % (Manual) Lymphocytes % (Manual) Nucleated RBC % Seg Neutrophils # Man Lymphocytes # (Manual) Percent Retic Fibrinogen ABG pH POC ABG pO2 ABG pO2 ABG HCO3 ABG O2 Saturation ABG Base Excess ABG Hemoglobin Oxyhemoglobin Carboxyhemoglobin Sodium 156 H D Potassium 3.0 L Chloride 114.2 H Carbon Dioxide BUN Creatinine 0.5 L Glucose 63 L POC Glucose 125 H Hemoglobin A1c Lactic Acid 7.10 H* Calcium 8.1 L Phosphorus Magnesium Direct Bilirubin AST ALT Alkaline Phosphatase Lactate Dehydrogenase Total Protein Albumin Ur Specific [place] Urine Blood Urine WBC (Auto) Vancomycin Trough Crossmatch 02/02/22 02/02/22 02/02/22 04:00 04:00 04:35 WBC 1.4 L* RBC Hgb 8.5 L Hct 26.8 L D MCV 57 L MCH 18 L RDW 19.0 H Plt Count 129 L Seg Neuts % (Manual) 33.0 L Lymphocytes % (Manual) 57.0 H Nucleated RBC % Seg Neutrophils # Man 0.5 L Lymphocytes # (Manual) 0.8 L Percent Retic Fibrinogen ABG pH POC ABG pO2 ABG pO2 ABG HCO3 ABG O2 Saturation ABG Base Excess ABG Hemoglobin Oxyhemoglobin Carboxyhemoglobin Sodium 155 H Potassium Chloride 113.1 H Carbon Dioxide BUN Creatinine Glucose 159 H POC Glucose Hemoglobin A1c Lactic Acid 3.10 H* Calcium 7.6 L Phosphorus Magnesium Direct Bilirubin AST ALT Alkaline Phosphatase Lactate Dehydrogenase Total Protein Albumin Ur Specific [place] Urine Blood Urine WBC (Auto) Vancomycin Trough Crossmatch 02/02/22 02/02/22 02/02/22 04:37 04:49 05:43 WBC RBC Hgb Hct MCV MCH RDW Plt Count Seg Neuts % (Manual) Lymphocytes % (Manual) Nucleated RBC % Seg Neutrophils # Man Lymphocytes # (Manual) Percent Retic Fibrinogen ABG pH 7.528 H POC ABG pO2 79.9 L ABG pO2 ABG HCO3 ABG O2 Saturation ABG Base Excess ABG Hemoglobin 8.8 L Oxyhemoglobin Carboxyhemoglobin 0.2 L Sodium Potassium Chloride Carbon Dioxide BUN Creatinine Glucose POC Glucose 116 H 125 H Hemoglobin A1c Lactic Acid Calcium Phosphorus Magnesium Direct Bilirubin AST ALT Alkaline Phosphatase Lactate Dehydrogenase Total Protein Albumin Ur Specific [place] Urine Blood Urine WBC (Auto) Vancomycin Trough Crossmatch 02/02/22 02/02/22 02/02/22 06:52 09:02 09:05 WBC RBC Hgb Hct MCV MCH RDW Plt Count Seg Neuts % (Manual) Lymphocytes % (Manual) Nucleated RBC % Seg Neutrophils # Man Lymphocytes # (Manual) Percent Retic Fibrinogen ABG pH POC ABG pO2 ABG pO2 ABG HCO3 ABG O2 Saturation ABG Base Excess ABG Hemoglobin Oxyhemoglobin Carboxyhemoglobin Sodium 154 H Potassium 3.3 L Chloride 113.3 H Carbon Dioxide BUN Creatinine Glucose 35 L* POC Glucose 110 H 35 L Hemoglobin A1c Lactic Acid Calcium 7.4 L Phosphorus 1.70 L D Magnesium 2.50 H Direct Bilirubin AST ALT Alkaline Phosphatase Lactate Dehydrogenase Total Protein Albumin Ur Specific [place] Urine Blood Urine WBC (Auto) Vancomycin Trough Crossmatch 02/02/22 02/02/22 02/02/22 09:05 09:30 09:41 WBC 2.6 L RBC Hgb 8.0 L Hct 25.0 L MCV 57 L MCH 18 L RDW 18.8 H Plt Count 97 L Seg Neuts % (Manual) Lymphocytes % (Manual) 12.0 L Nucleated RBC % 10.0 H Seg Neutrophils # Man 1.7 L Lymphocytes # (Manual) 0.3 L Percent Retic Fibrinogen ABG pH POC ABG pO2 ABG pO2 ABG HCO3 ABG O2 Saturation ABG Base Excess ABG Hemoglobin Oxyhemoglobin Carboxyhemoglobin Sodium Potassium Chloride Carbon Dioxide BUN Creatinine Glucose POC Glucose 119 H Hemoglobin A1c Lactic Acid 7.10 H* Calcium Phosphorus Magnesium Direct Bilirubin AST ALT Alkaline Phosphatase Lactate Dehydrogenase Total Protein Albumin Ur Specific [place] Urine Blood Urine WBC (Auto) Vancomycin Trough Crossmatch 02/02/22 02/02/22 02/02/22 10:17 12:32 15:39 WBC RBC Hgb Hct MCV MCH RDW Plt Count Seg Neuts % (Manual) Lymphocytes % (Manual) Nucleated RBC % Seg Neutrophils # Man Lymphocytes # (Manual) Percent Retic Fibrinogen ABG pH POC ABG pO2 ABG pO2 ABG HCO3 ABG O2 Saturation ABG Base Excess ABG Hemoglobin Oxyhemoglobin Carboxyhemoglobin Sodium Potassium Chloride Carbon Dioxide BUN Creatinine Glucose POC Glucose 120 H 166 H 263 H Hemoglobin A1c Lactic Acid Calcium Phosphorus Magnesium Direct Bilirubin AST ALT Alkaline Phosphatase Lactate Dehydrogenase Total Protein Albumin Ur Specific [place] Urine Blood Urine WBC (Auto) Vancomycin Trough Crossmatch 02/02/22 02/02/22 02/02/22 17:07 17:50 Unknown WBC RBC Hgb Hct MCV MCH RDW Plt Count Seg Neuts % (Manual) Lymphocytes % (Manual) Nucleated RBC % Seg Neutrophils # Man Lymphocytes # (Manual) Percent Retic Fibrinogen ABG pH 7.457 H POC ABG pO2 ABG pO2 71.0 L ABG HCO3 ABG O2 Saturation 94.5 L ABG Base Excess ABG Hemoglobin 9.2 L Oxyhemoglobin 93.0 L Carboxyhemoglobin Sodium 147 H Potassium 5.5 H D Chloride 110.8 H Carbon Dioxide BUN Creatinine Glucose 271 H POC Glucose 231 H Hemoglobin A1c Lactic Acid Calcium 7.3 L Phosphorus Magnesium Direct Bilirubin AST ALT Alkaline Phosphatase Lactate Dehydrogenase Total Protein Albumin Ur Specific [place] Urine Blood Urine WBC (Auto) Vancomycin Trough Crossmatch 02/03/22 02/03/22 02/03/22 00:08 04:00 04:00 WBC 3.7 L RBC Hgb 8.0 L Hct 25.5 L MCV 58 L MCH 18 L RDW 18.2 H Plt Count 79 L Seg Neuts % (Manual) 76.0 H Lymphocytes % (Manual) 2.0 L Nucleated RBC % 4.0 H Seg Neutrophils # Man Lymphocytes # (Manual) 0.1 L Percent Retic Fibrinogen ABG pH POC ABG pO2 ABG pO2 ABG HCO3 ABG O2 Saturation ABG Base Excess ABG Hemoglobin Oxyhemoglobin Carboxyhemoglobin Sodium 147 H Potassium Chloride 112.9 H Carbon Dioxide BUN Creatinine Glucose 281 H POC Glucose 231 H Hemoglobin A1c Lactic Acid Calcium 7.8 L Phosphorus Magnesium Direct Bilirubin 0.3 H AST 172 H ALT 89 H Alkaline Phosphatase Lactate Dehydrogenase Total Protein 4.7 L D Albumin 2.0 L Ur Specific [place] Urine Blood Urine WBC (Auto) Vancomycin Trough Crossmatch 02/03/22 02/03/22 02/03/22 04:20 05:26 11:38 WBC RBC Hgb Hct MCV MCH RDW Plt Count Seg Neuts % (Manual) Lymphocytes % (Manual) Nucleated RBC % Seg Neutrophils # Man Lymphocytes # (Manual) Percent Retic Fibrinogen ABG pH POC ABG pO2 ABG pO2 75.5 L ABG HCO3 ABG O2 Saturation ABG Base Excess -2.8 L ABG Hemoglobin 8.1 L Oxyhemoglobin 94.6 L Carboxyhemoglobin Sodium Potassium Chloride Carbon Dioxide BUN Creatinine Glucose POC Glucose 247 H 196 H Hemoglobin A1c Lactic Acid Calcium Phosphorus Magnesium Direct Bilirubin AST ALT Alkaline Phosphatase Lactate Dehydrogenase Total Protein Albumin Ur Specific [place] Urine Blood Urine WBC (Auto) Vancomycin Trough Crossmatch 02/03/22 02/04/22 02/04/22 16:27 02:44 03:18 WBC 1.2 L* RBC Hgb 8.2 L Hct 26.6 L MCV 59 L MCH 18 L RDW 19.6 H Plt Count 50 L Seg Neuts % (Manual) Lymphocytes % (Manual) Nucleated RBC % Seg Neutrophils # Man Lymphocytes # (Manual) Percent Retic Fibrinogen ABG pH POC ABG pO2 ABG pO2 ABG HCO3 ABG O2 Saturation ABG Base Excess ABG Hemoglobin Oxyhemoglobin Carboxyhemoglobin Sodium 148 H Potassium Chloride 116.3 H Carbon Dioxide BUN Creatinine Glucose 139 H POC Glucose 119 H Hemoglobin A1c Lactic Acid Calcium Phosphorus Magnesium Direct Bilirubin 0.3 H AST 92 H ALT 76 H Alkaline Phosphatase Lactate Dehydrogenase Total Protein 4.7 L Albumin 1.6 L Ur Specific [place] Urine Blood Urine WBC (Auto) Vancomycin Trough Crossmatch 02/04/22 02/04/22 02/04/22 05:15 05:26 09:15 WBC RBC Hgb Hct MCV MCH RDW Plt Count Seg Neuts % (Manual) Lymphocytes % (Manual) Nucleated RBC % Seg Neutrophils # Man Lymphocytes # (Manual) Percent Retic Fibrinogen ABG pH 7.311 L POC ABG pO2 ABG pO2 50.1 L ABG HCO3 ABG O2 Saturation 83.6 L ABG Base Excess ABG Hemoglobin 8.6 L Oxyhemoglobin 81.9 L Carboxyhemoglobin Sodium Potassium Chloride Carbon Dioxide BUN Creatinine Glucose POC Glucose 115 H Hemoglobin A1c Lactic Acid Calcium Phosphorus Magnesium Direct Bilirubin AST ALT Alkaline Phosphatase Lactate Dehydrogenase Total Protein Albumin Ur Specific [place] Urine Blood Large A Urine WBC (Auto) 12.0 H Vancomycin Trough Crossmatch 02/04/22 02/04/22 02/04/22 11:17 14:37 17:04 WBC RBC Hgb Hct MCV MCH RDW Plt Count Seg Neuts % (Manual) Lymphocytes % (Manual) Nucleated RBC % Seg Neutrophils # Man Lymphocytes # (Manual) Percent Retic Fibrinogen ABG pH POC ABG pO2 ABG pO2 ABG HCO3 ABG O2 Saturation ABG Base Excess ABG Hemoglobin Oxyhemoglobin Carboxyhemoglobin Sodium Potassium Chloride Carbon Dioxide BUN Creatinine Glucose POC Glucose 166 H 109 H Hemoglobin A1c Lactic Acid Calcium Phosphorus Magnesium Direct Bilirubin AST 87 H ALT 75 H Alkaline Phosphatase 137 H Lactate Dehydrogenase Total Protein 4.6 L Albumin 1.7 L Ur Specific [place] Urine Blood Urine WBC (Auto) Vancomycin Trough Crossmatch 02/04/22 02/04/22 02/04/22 20:15 20:22 20:22 WBC RBC Hgb 7.1 L Hct 22.6 L MCV MCH RDW Plt Count Seg Neuts % (Manual) Lymphocytes % (Manual) Nucleated RBC % Seg Neutrophils # Man Lymphocytes # (Manual) Percent Retic Fibrinogen ABG pH 7.292 L POC ABG pO2 ABG pO2 40.3 L ABG HCO3 ABG O2 Saturation 72.1 L ABG Base Excess -2.2 L ABG Hemoglobin 7.0 L Oxyhemoglobin 70.5 L Carboxyhemoglobin Sodium Potassium Chloride Carbon Dioxide BUN Creatinine Glucose POC Glucose Hemoglobin A1c Lactic Acid 3.00 H* Calcium Phosphorus Magnesium Direct Bilirubin AST ALT Alkaline Phosphatase Lactate Dehydrogenase Total Protein Albumin Ur Specific [place] Urine Blood Urine WBC (Auto) Vancomycin Trough Crossmatch 02/04/22 02/04/22 02/05/22 20:22 23:03 04:40 WBC 3.1 L RBC Hgb 9.6 L Hct 30.1 L D MCV 64 L MCH 20 L RDW 26.9 H Plt Count 50 L Seg Neuts % (Manual) Lymphocytes % (Manual) Nucleated RBC % Seg Neutrophils # Man Lymphocytes # (Manual) Percent Retic Fibrinogen ABG pH POC ABG pO2 ABG pO2 ABG HCO3 ABG O2 Saturation ABG Base Excess ABG Hemoglobin Oxyhemoglobin Carboxyhemoglobin Sodium Potassium Chloride Carbon Dioxide BUN Creatinine Glucose POC Glucose 171 H Hemoglobin A1c Lactic Acid Calcium Phosphorus Magnesium Direct Bilirubin AST ALT Alkaline Phosphatase Lactate Dehydrogenase Total Protein Albumin Ur Specific [place] Urine Blood Urine WBC (Auto) Vancomycin Trough Crossmatch See Detail 02/05/22 02/05/22 02/05/22 04:40 04:40 04:43 WBC RBC Hgb Hct MCV MCH RDW Plt Count Seg Neuts % (Manual) Lymphocytes % (Manual) Nucleated RBC % Seg Neutrophils # Man Lymphocytes # (Manual) Percent Retic Fibrinogen ABG pH POC ABG pO2 ABG pO2 ABG HCO3 ABG O2 Saturation ABG Base Excess ABG Hemoglobin Oxyhemoglobin Carboxyhemoglobin Sodium 148 H Potassium Chloride 113.2 H Carbon Dioxide BUN 21 H Creatinine Glucose 155 H POC Glucose 156 H Hemoglobin A1c Lactic Acid Calcium Phosphorus Magnesium Direct Bilirubin AST 84 H ALT 67 H Alkaline Phosphatase 152 H Lactate Dehydrogenase 879 H Total Protein 5.0 L Albumin 1.8 L Ur Specific [place] Urine Blood Urine WBC (Auto) Vancomycin Trough Crossmatch 02/05/22 02/05/22 02/05/22 08:10 08:48 08:48 WBC RBC Hgb Hct MCV MCH RDW Plt Count Seg Neuts % (Manual) Lymphocytes % (Manual) Nucleated RBC % Seg Neutrophils # Man Lymphocytes # (Manual) Percent Retic Fibrinogen 795 H ABG pH POC ABG pO2 ABG pO2 57.1 L ABG HCO3 27.8 H ABG O2 Saturation 90.8 L ABG Base Excess ABG Hemoglobin 8.5 L Oxyhemoglobin 88.9 L Carboxyhemoglobin Sodium Potassium Chloride Carbon Dioxide BUN Creatinine Glucose POC Glucose Hemoglobin A1c Lactic Acid 2.90 H* Calcium Phosphorus Magnesium Direct Bilirubin AST ALT Alkaline Phosphatase Lactate Dehydrogenase Total Protein Albumin Ur Specific [place] Urine Blood Urine WBC (Auto) Vancomycin Trough Crossmatch 02/05/22 02/05/22 02/05/22 11:46 17:45 Unknown WBC RBC Hgb Hct MCV MCH RDW Plt Count Seg Neuts % (Manual) Lymphocytes % (Manual) Nucleated RBC % Seg Neutrophils # Man Lymphocytes # (Manual) Percent Retic Fibrinogen ABG pH POC ABG pO2 ABG pO2 ABG HCO3 ABG O2 Saturation ABG Base Excess ABG Hemoglobin Oxyhemoglobin Carboxyhemoglobin Sodium Potassium Chloride Carbon Dioxide BUN Creatinine Glucose POC Glucose 61 L 133 H Hemoglobin A1c Lactic Acid Calcium Phosphorus Magnesium Direct Bilirubin AST ALT Alkaline Phosphatase Lactate Dehydrogenase Total Protein Albumin Ur Specific [place] Urine Blood Urine WBC (Auto) Vancomycin Trough 28.6 H Crossmatch 02/05/22 02/06/22 02/06/22 23:59 04:33 04:33 WBC RBC Hgb 8.4 L Hct 26.1 L MCV 64 L MCH 21 L RDW 26.2 H Plt Count 38 L Seg Neuts % (Manual) Lymphocytes % (Manual) Nucleated RBC % Seg Neutrophils # Man Lymphocytes # (Manual) Percent Retic Fibrinogen ABG pH POC ABG pO2 ABG pO2 ABG HCO3 ABG O2 Saturation ABG Base Excess ABG Hemoglobin Oxyhemoglobin Carboxyhemoglobin Sodium 146 H Potassium 3.4 L Chloride Carbon Dioxide 31 H BUN 21 H Creatinine Glucose 230 H POC Glucose 275 H Hemoglobin A1c Lactic Acid Calcium Phosphorus Magnesium Direct Bilirubin AST 70 H ALT Alkaline Phosphatase 197 H Lactate Dehydrogenase Total Protein 5.3 L Albumin 2.4 L Ur Specific [place] Urine Blood Urine WBC (Auto) Vancomycin Trough Crossmatch 02/06/22 02/06/22 02/06/22 04:33 04:50 06:19 WBC RBC Hgb Hct MCV MCH RDW Plt Count Seg Neuts % (Manual) Lymphocytes % (Manual) Nucleated RBC % Seg Neutrophils # Man Lymphocytes # (Manual) Percent Retic Fibrinogen ABG pH 7.330 L POC ABG pO2 ABG pO2 57.9 L ABG HCO3 31.3 H ABG O2 Saturation 89.6 L ABG Base Excess 4.5 H ABG Hemoglobin 8.1 L Oxyhemoglobin 87.7 L Carboxyhemoglobin Sodium Potassium Chloride Carbon Dioxide BUN Creatinine Glucose POC Glucose 219 H Hemoglobin A1c Lactic Acid 3.10 H* Calcium Phosphorus Magnesium Direct Bilirubin AST ALT Alkaline Phosphatase Lactate Dehydrogenase Total Protein Albumin Ur Specific [place] Urine Blood Urine WBC (Auto) Vancomycin Trough Crossmatch 02/06/22 02/06/22 02/06/22 11:24 11:50 12:26 WBC RBC Hgb Hct MCV MCH RDW Plt Count Seg Neuts % (Manual) Lymphocytes % (Manual) Nucleated RBC % Seg Neutrophils # Man Lymphocytes # (Manual) Percent Retic Fibrinogen ABG pH 7.298 L POC ABG pO2 ABG pO2 43.3 L ABG HCO3 36.7 H ABG O2 Saturation 74.9 L ABG Base Excess 8.8 H ABG Hemoglobin 8.2 L Oxyhemoglobin 73.3 L Carboxyhemoglobin Sodium Potassium Chloride Carbon Dioxide BUN Creatinine Glucose POC Glucose 118 H Hemoglobin A1c Lactic Acid 2.50 H* Calcium Phosphorus Magnesium Direct Bilirubin AST ALT Alkaline Phosphatase Lactate Dehydrogenase Total Protein Albumin Ur Specific [place] Urine Blood Urine WBC (Auto) Vancomycin Trough Crossmatch 02/06/22 02/06/22 02/07/22 17:41 21:41 00:17 WBC RBC Hgb Hct MCV MCH RDW Plt Count Seg Neuts % (Manual) Lymphocytes % (Manual) Nucleated RBC % Seg Neutrophils # Man Lymphocytes # (Manual) Percent Retic Fibrinogen ABG pH POC ABG pO2 ABG pO2 ABG HCO3 ABG O2 Saturation ABG Base Excess ABG Hemoglobin Oxyhemoglobin Carboxyhemoglobin Sodium Potassium Chloride Carbon Dioxide BUN Creatinine Glucose POC Glucose 208 H 282 H 342 H Hemoglobin A1c Lactic Acid Calcium Phosphorus Magnesium Direct Bilirubin AST ALT Alkaline Phosphatase Lactate Dehydrogenase Total Protein Albumin Ur Specific [place] Urine Blood Urine WBC (Auto) Vancomycin Trough Crossmatch 02/07/22 02/07/22 02/07/22 00:19 04:12 04:12 WBC 13.1 H RBC Hgb 8.5 L Hct 26.4 L MCV 62 L MCH 20 L RDW 24.2 H Plt Count 57 L Seg Neuts % (Manual) Lymphocytes % (Manual) Nucleated RBC % Seg Neutrophils # Man Lymphocytes # (Manual) Percent Retic Fibrinogen ABG pH POC ABG pO2 ABG pO2 ABG HCO3 ABG O2 Saturation ABG Base Excess ABG Hemoglobin Oxyhemoglobin Carboxyhemoglobin Sodium 149 H Potassium 3.1 L Chloride Carbon Dioxide 38 H D BUN 23 H Creatinine Glucose 298 H POC Glucose 209 H Hemoglobin A1c Lactic Acid Calcium Phosphorus 2.10 L Magnesium Direct Bilirubin AST 49 H ALT Alkaline Phosphatase 248 H Lactate Dehydrogenase Total Protein 5.4 L Albumin 2.7 L Ur Specific [place] Urine Blood Urine WBC (Auto) Vancomycin Trough Crossmatch 02/07/22 02/07/22 02/07/22 04:40 07:09 07:13 WBC RBC Hgb Hct MCV MCH RDW Plt Count Seg Neuts % (Manual) Lymphocytes % (Manual) Nucleated RBC % Seg Neutrophils # Man Lymphocytes # (Manual) Percent Retic Fibrinogen ABG pH 7.474 H POC ABG pO2 ABG pO2 62.1 L ABG HCO3 39.1 H ABG O2 Saturation 94.7 L ABG Base Excess 13.9 H ABG Hemoglobin 8.6 L Oxyhemoglobin 93.0 L Carboxyhemoglobin Sodium Potassium Chloride Carbon Dioxide BUN Creatinine Glucose POC Glucose 399 H 418 H Hemoglobin A1c Lactic Acid Calcium Phosphorus Magnesium Direct Bilirubin AST ALT Alkaline Phosphatase Lactate Dehydrogenase Total Protein Albumin Ur Specific [place] Urine Blood Urine WBC (Auto) Vancomycin Trough Crossmatch 02/07/22 02/07/22 02/07/22 12:20 17:29 23:37 WBC RBC Hgb Hct MCV MCH RDW Plt Count Seg Neuts % (Manual) Lymphocytes % (Manual) Nucleated RBC % Seg Neutrophils # Man Lymphocytes # (Manual) Percent Retic Fibrinogen ABG pH POC ABG pO2 ABG pO2 ABG HCO3 ABG O2 Saturation ABG Base Excess ABG Hemoglobin Oxyhemoglobin Carboxyhemoglobin Sodium Potassium Chloride Carbon Dioxide BUN Creatinine Glucose POC Glucose 229 H 159 H 236 H Hemoglobin A1c Lactic Acid Calcium Phosphorus Magnesium Direct Bilirubin AST ALT Alkaline Phosphatase Lactate Dehydrogenase Total Protein Albumin Ur Specific [place] Urine Blood Urine WBC (Auto) Vancomycin Trough Crossmatch 02/08/22 02/08/22 02/08/22 03:55 03:55 05:20 WBC 14.7 H RBC Hgb 7.7 L Hct 25.0 L MCV 64 L MCH 20 L RDW 25.1 H Plt Count 79 L Seg Neuts % (Manual) Lymphocytes % (Manual) Nucleated RBC % Seg Neutrophils # Man Lymphocytes # (Manual) Percent Retic 0.65 L Fibrinogen ABG pH POC ABG pO2 ABG pO2 ABG HCO3 ABG O2 Saturation ABG Base Excess ABG Hemoglobin Oxyhemoglobin Carboxyhemoglobin Sodium Potassium 3.0 L Chloride 93.9 L Carbon Dioxide 44 H* BUN 30 H Creatinine Glucose 229 H POC Glucose 235 H Hemoglobin A1c Lactic Acid Calcium 8.3 L Phosphorus 2.30 L Magnesium Direct Bilirubin AST 77 H ALT Alkaline Phosphatase 246 H Lactate Dehydrogenase Total Protein 5.2 L Albumin 2.7 L Ur Specific [place] Urine Blood Urine WBC (Auto) Vancomycin Trough Crossmatch 02/08/22 02/08/22 11:47 Unknown WBC RBC Hgb Hct MCV MCH RDW Plt Count Seg Neuts % (Manual) Lymphocytes % (Manual) Nucleated RBC % Seg Neutrophils # Man Lymphocytes # (Manual) Percent Retic Fibrinogen ABG pH 7.488 H POC ABG pO2 ABG pO2 63.1 L ABG HCO3 45.5 H ABG O2 Saturation 94.1 L ABG Base Excess 19.8 H ABG Hemoglobin 8.7 L Oxyhemoglobin 92.4 L Carboxyhemoglobin Sodium Potassium Chloride Carbon Dioxide BUN Creatinine Glucose POC Glucose 193 H Hemoglobin A1c Lactic Acid Calcium Phosphorus Magnesium Direct Bilirubin AST ALT Alkaline Phosphatase Lactate Dehydrogenase Total Protein Albumin Ur Specific [place] Urine Blood Urine WBC (Auto) Vancomycin Trough Crossmatch
[2022-02-08] MEDS: cefTRIAXone/NS 2 GM/100 ML 2 GM/100 ML BAG IV SCH (17:43)
[2022-02-08] MEDS ORDERED: POTASSIUM CHLORIDE 20 MEQ PACKET FEEDTUBE SCH (22:00)
[2022-02-08] MEDS ORDERED: INSULIN GLARGINE 100 UNITS/ML SUB-Q SCH (22:00)
[2022-02-09] MEDS: INSULIN REGULAR, HUMAN 100 UNITS/1 ML SUB-Q SCH ×7 (00:05→23:17)
--- NOTE | 2022-02-09 02:57 | XRay Report ---
XR chest 1V ap INDICATION / CLINICAL INFORMATION: follow up respiratory failure. COMPARISON: Radiograph from yesterday. FINDINGS: SUPPORT DEVICES: Unchanged. HEART /PULMONARY VASCULATURE: Unchanged. LUNGS / PLEURA: Slight improved lung aeration. Diffuse bilateral pulmonary opacities persist. No siza ble pleural effusion. No pneumothorax. IMPRESSION: Mild improved lung aeration with persistent severe pulmonary opacities. Signer Name: Kian Diaz MD Signed: 02/09/2022 2:53 AM Workstation Name: [id number] (acquired by [employer] in 2014)-[id number]
[2022-02-09 04:52] LABS: Hematocrit 26.3 % (30.3-42.9); Hemoglobin 8.2 gm/dl (10.1-14.3); Mean Corpuscular HGB Conc 31 % (30-34); Red Blood Count 4.16 M/mm3 (3.65-5.03)
[2022-02-09 04:54] LABS: Mean Corpuscular Volume 63 fl (79-97); Red Cell Distribution Width 23.9 % (13.2-15.2)
[2022-02-09 04:58] LABS: Alanine Aminotransferase 54 units/L (7-56); Albumin 2.6 g/dL (3.9-5); Blood Urea Nitrogen 27 mg/dL (7-17); Calcium 8.2 mg/dL (8.4-10.2); Hemolysis Index 3
[2022-02-09 05:03] LABS: BUN/Creatinine Ratio 45; Platelet Count 128 K/mm3 (140-440)
[2022-02-09 05:50] LABS: ABG HCO3 42.4 mmol/L (20.0-26.0); ABG Methemoglobin 0.6 % (0.0-1.5); ABG Oxygen Saturation 99.3 % (95.0-99.0); ABG PCO2 50.9 mm Hg; ABG PH 7.539 pH Units (7.350-7.450); ABG PO2 210.4 mm Hg (80.0-90.0)
[2022-02-09] MEDS: HYDROCORTISONE SOD SUCC 100 MG/2 ML VIAL IV SCH ×3 (05:57→21:12)
[2022-02-09] MEDS ORDERED: POTASSIUM CHLORIDE 20 MEQ PACKET FEEDTUBE ONE (08:00)
--- NOTE | 2022-02-09 09:05 | Progress Note ---
Assessment and Plan - Patient Problems (1) Debility, unspecified Current Visit: Yes Status: Acute (2) ARDS (adult respiratory distress syndrome) Current Visit: Yes Status: Acute (3) Acute respiratory failure Current Visit: Yes Status: Acute Qualifiers: Respiratory failure complication: hypoxia Qualified Code(s): J96.01 - Acute respiratory failure with hypoxia (4) Cardiopulmonary arrest with successful resuscitation Current Visit: Yes Status: Acute (5) DKA (diabetic ketoacidosis) Current Visit: Yes Status: Acute (6) Hypotension Current Visit: Yes Status: Acute (7) Pancytopenia Current Visit: Yes Status: Acute (8) SVT (supraventricular tachycardia) Current Visit: Yes Status: Acute (9) Sepsis Current Visit: Yes Status: Acute Subjective Principal diagnosis: DKA, s/p cardiopulmonary arrest Interval history: on vent on Fentanyl drip vent setting ac 12 350 peep 10 [id number] Objective Vital Signs - 12hr 02/08/22 02/08/22 02/08/22 21:15 21:30 21:43 Temperature Pulse Rate 113 H 114 H 118 H Pulse Rate [ From Monitor] Respiratory 24 23 25 H Rate Blood Pressure 115/80 104/75 O2 Sat by Pulse 99 99 100 Oximetry 02/08/22 02/08/22 02/08/22 21:45 22:00 22:15 Temperature Pulse Rate 114 H 116 H 115 H Pulse Rate [ From Monitor] Respiratory 23 25 H 25 H Rate Blood Pressure 113/77 128/90 114/83 O2 Sat by Pulse 100 99 99 Oximetry 02/08/22 02/08/22 02/08/22 22:30 22:45 23:00 Temperature Pulse Rate 112 H 110 H 114 H Pulse Rate [ From Monitor] Respiratory 19 21 31 H Rate Blood Pressure 95/65 94/70 106/81 O2 Sat by Pulse 98 100 98 Oximetry 02/08/22 02/08/22 02/08/22 23:15 23:20 23:30 Temperature Pulse Rate 110 H 112 H 111 H Pulse Rate [ From Monitor] Respiratory 20 25 H 21 Rate Blood Pressure 98/68 102/71 O2 Sat by Pulse 100 100 100 Oximetry 02/08/22 02/08/22 02/08/22 23:32 23:45 23:58 Temperature Pulse Rate 110 H 112 H 112 H Pulse Rate [ From Monitor] Respiratory 18 23 22 Rate Blood Pressure 98/68 109/76 109/76 O2 Sat by Pulse 100 100 100 Oximetry 02/09/22 02/09/22 02/09/22 00:00 00:01 00:15 Temperature 99.1 F Pulse Rate 112 H 111 H 111 H Pulse Rate [ From Monitor] Respiratory 22 19 20 Rate Blood Pressure 106/76 106/76 96/70 O2 Sat by Pulse 100 100 100 Oximetry 02/09/22 02/09/22 02/09/22 00:30 00:45 01:00 Temperature Pulse Rate 112 H 111 H 109 H Pulse Rate [ From Monitor] Respiratory 20 21 22 Rate Blood Pressure 101/73 102/76 99/71 O2 Sat by Pulse 100 100 100 Oximetry 02/09/22 02/09/22 02/09/22 01:15 01:30 01:45 Temperature Pulse Rate 111 H 113 H 114 H Pulse Rate [ From Monitor] Respiratory 22 22 26 H Rate Blood Pressure 106/72 113/75 110/75 O2 Sat by Pulse 100 100 100 Oximetry 02/09/22 02/09/22 02/09/22 02:00 02:15 02:30 Temperature Pulse Rate 113 H 114 H 115 H Pulse Rate [ From Monitor] Respiratory 24 24 25 H Rate Blood Pressure 109/75 107/80 113/77 O2 Sat by Pulse 100 99 100 Oximetry 02/09/22 02/09/22 02/09/22 02:45 03:00 03:15 Temperature Pulse Rate 117 H 116 H 115 H Pulse Rate [ From Monitor] Respiratory 30 H 19 23 Rate Blood Pressure 126/84 136/102 107/80 O2 Sat by Pulse 99 100 Oximetry 02/09/22 02/09/22 02/09/22 03:30 03:45 04:00 Temperature 99.1 F Pulse Rate 112 H 113 H 112 H Pulse Rate [ From Monitor] Respiratory 22 22 24 Rate Blood Pressure 109/78 109/76 103/78 O2 Sat by Pulse 100 100 100 Oximetry 02/09/22 02/09/22 02/09/22 04:15 04:30 04:45 Temperature Pulse Rate 112 H 114 H 110 H Pulse Rate [ From Monitor] Respiratory 25 H 26 H 23 Rate Blood Pressure 111/81 120/81 103/78 O2 Sat by Pulse 100 100 Oximetry 02/09/22 02/09/22 02/09/22 05:00 05:15 05:19 Temperature Pulse Rate 106 H 107 H 107 H Pulse Rate [ From Monitor] Respiratory 21 22 25 H Rate Blood Pressure 102/72 100/72 O2 Sat by Pulse 100 Oximetry 02/09/22 02/09/22 02/09/22 05:30 05:45 06:00 Temperature Pulse Rate 109 H 107 H 111 H Pulse Rate [ From Monitor] Respiratory 21 21 23 Rate Blood Pressure 107/77 101/71 110/78 O2 Sat by Pulse 100 100 100 Oximetry 02/09/22 02/09/22 02/09/22 06:25 06:30 06:45 Temperature Pulse Rate 109 H 113 H 112 H Pulse Rate [ From Monitor] Respiratory 17 28 H 24 Rate Blood Pressure 116/83 104/75 O2 Sat by Pulse 100 98 98 Oximetry 02/09/22 02/09/22 02/09/22 07:00 07:15 07:30 Temperature Pulse Rate 110 H 110 H 110 H Pulse Rate [ From Monitor] Respiratory 21 20 21 Rate Blood Pressure 98/67 96/69 102/71 O2 Sat by Pulse 98 98 99 Oximetry 02/09/22 02/09/22 02/09/22 07:45 08:00 08:15 Temperature 99.1 F Pulse Rate 112 H 113 H 118 H Pulse Rate [ 113 H From Monitor] Respiratory 21 21 15 Rate Blood Pressure 106/72 103/81 143/100 O2 Sat by Pulse 99 96 99 Oximetry 02/09/22 08:36 Temperature Pulse Rate 119 H Pulse Rate [ From Monitor] Respiratory Rate Blood Pressure 97/68 O2 Sat by Pulse 99 Oximetry Constitutional: other (on vent, orally intubated) Ascultation: Bilateral: diminished breath sounds Cardiovascular: regular rate and rhythm Gastrointestinal: normoactive bowel sounds Integumentary: normal Neurologic: other (on vent) Psychiatric: other (on vent) CBC and BMP: 02/09/22 04:00 02/09/22 04:00 ABG, PT/INR, D-dimer: ABG ABG pH 7.539 pH Units (7.350-7.450) H 02/09/22 05:30 POC ABG pCO2 37.3 mmHg (32.0-48.0) 02/02/22 04:49 ABG pCO2 50.9 mm Hg 02/09/22 05:30 POC ABG pO2 79.9 mmHg (83-108) L 02/02/22 04:49 ABG pO2 210.4 mm Hg (80.0-90.0) H 02/09/22 05:30 POC ABG HCO3 30.3 02/02/22 04:49 ABG O2 Saturation 99.3 % (95.0-99.0) H 02/09/22 05:30 PT/INR, D-dimer PT 14.8 Sec. (12.2-14.9) 02/05/22 08:48 INR 1.02 (0.87-1.13) 02/05/22 08:48 Abnormal lab findings: Abnormal Labs 01/31/22 01/31/22 01/31/22 20:33 20:33 20:33 WBC 12.5 H RBC 6.16 H Hgb Hct MCV 61 L MCH 18 L RDW 19.6 H Plt Count Seg Neuts % (Manual) 98.0 H Lymphocytes % (Manual) 0 L Nucleated RBC % 2.0 H Seg Neutrophils # Man 12.3 H Lymphocytes # (Manual) 0.0 L Percent Retic Fibrinogen ABG pH POC ABG pO2 ABG pO2 ABG HCO3 ABG O2 Saturation ABG Base Excess ABG Hemoglobin Oxyhemoglobin Carboxyhemoglobin Sodium Potassium 5.6 H Chloride 110.1 H Carbon Dioxide 9 L* BUN Creatinine Glucose 254 H POC Glucose Hemoglobin A1c Lactic Acid 2.50 H* Calcium 10.8 H Phosphorus Magnesium Direct Bilirubin AST ALT Alkaline Phosphatase Lactate Dehydrogenase Total Protein Albumin Ur Specific [place] Urine Blood Urine WBC (Auto) Vancomycin Trough Crossmatch 01/31/22 02/01/22 02/01/22 22:49 07:34 08:22 WBC RBC Hgb Hct MCV MCH RDW Plt Count Seg Neuts % (Manual) Lymphocytes % (Manual) Nucleated RBC % Seg Neutrophils # Man Lymphocytes # (Manual) Percent Retic Fibrinogen ABG pH POC ABG pO2 ABG pO2 ABG HCO3 ABG O2 Saturation ABG Base Excess ABG Hemoglobin Oxyhemoglobin Carboxyhemoglobin Sodium Potassium 5.8 H Chloride 115.8 H Carbon Dioxide 3 L* BUN Creatinine Glucose 400 H POC Glucose 368 H Hemoglobin A1c Lactic Acid Calcium Phosphorus Magnesium Direct Bilirubin AST ALT Alkaline Phosphatase Lactate Dehydrogenase Total Protein Albumin Ur Specific [place] 1.035 H Urine Blood Small A Urine WBC (Auto) 142.0 H Vancomycin Trough Crossmatch 02/01/22 02/01/22 02/01/22 09:42 12:01 12:54 WBC RBC Hgb Hct MCV MCH RDW Plt Count Seg Neuts % (Manual) Lymphocytes % (Manual) Nucleated RBC % Seg Neutrophils # Man Lymphocytes # (Manual) Percent Retic Fibrinogen ABG pH 7.044 L* POC ABG pO2 ABG pO2 121.0 H ABG HCO3 3.7 L ABG O2 Saturation ABG Base Excess -24.8 L ABG Hemoglobin 9.3 L Oxyhemoglobin Carboxyhemoglobin Sodium Potassium Chloride Carbon Dioxide BUN Creatinine Glucose POC Glucose 382 H Hemoglobin A1c Lactic Acid Calcium Phosphorus 1.40 L Magnesium 1.30 L Direct Bilirubin AST ALT Alkaline Phosphatase Lactate Dehydrogenase Total Protein Albumin Ur Specific [place] Urine Blood Urine WBC (Auto) Vancomycin Trough Crossmatch 02/01/22 02/01/22 02/01/22 12:54 12:54 13:27 WBC RBC Hgb Hct MCV MCH RDW Plt Count Seg Neuts % (Manual) Lymphocytes % (Manual) Nucleated RBC % Seg Neutrophils # Man Lymphocytes # (Manual) Percent Retic Fibrinogen ABG pH POC ABG pO2 ABG pO2 ABG HCO3 ABG O2 Saturation ABG Base Excess ABG Hemoglobin Oxyhemoglobin Carboxyhemoglobin Sodium 148 H D Potassium 3.0 L D Chloride 117.3 H Carbon Dioxide 9 L* BUN Creatinine Glucose 439 H POC Glucose 342 H Hemoglobin A1c 11.1 H Lactic Acid Calcium 7.7 L Phosphorus Magnesium Direct Bilirubin AST ALT Alkaline Phosphatase Lactate Dehydrogenase Total Protein Albumin Ur Specific [place] Urine Blood Urine WBC (Auto) Vancomycin Trough Crossmatch 02/01/22 02/01/22 02/01/22 14:48 15:48 16:54 WBC RBC Hgb Hct MCV MCH RDW Plt Count Seg Neuts % (Manual) Lymphocytes % (Manual) Nucleated RBC % Seg Neutrophils # Man Lymphocytes # (Manual) Percent Retic Fibrinogen ABG pH POC ABG pO2 ABG pO2 ABG HCO3 ABG O2 Saturation ABG Base Excess ABG Hemoglobin Oxyhemoglobin Carboxyhemoglobin Sodium Potassium Chloride Carbon Dioxide BUN Creatinine Glucose POC Glucose 394 H 412 H 352 H Hemoglobin A1c Lactic Acid Calcium Phosphorus Magnesium Direct Bilirubin AST ALT Alkaline Phosphatase Lactate Dehydrogenase Total Protein Albumin Ur Specific [place] Urine Blood Urine WBC (Auto) Vancomycin Trough Crossmatch 02/01/22 02/01/22 02/01/22 18:23 18:53 19:26 WBC RBC Hgb Hct MCV MCH RDW Plt Count Seg Neuts % (Manual) Lymphocytes % (Manual) Nucleated RBC % Seg Neutrophils # Man Lymphocytes # (Manual) Percent Retic Fibrinogen ABG pH 7.331 L POC ABG pO2 ABG pO2 121.4 H ABG HCO3 ABG O2 Saturation ABG Base Excess -4.9 L ABG Hemoglobin 8.4 L Oxyhemoglobin Carboxyhemoglobin Sodium Potassium Chloride Carbon Dioxide BUN Creatinine Glucose POC Glucose 350 H 260 H Hemoglobin A1c Lactic Acid Calcium Phosphorus Magnesium Direct Bilirubin AST ALT Alkaline Phosphatase Lactate Dehydrogenase Total Protein Albumin Ur Specific [place] Urine Blood Urine WBC (Auto) Vancomycin Trough Crossmatch 02/01/22 02/01/22 02/01/22 20:20 21:38 22:41 WBC RBC Hgb Hct MCV MCH RDW Plt Count Seg Neuts % (Manual) Lymphocytes % (Manual) Nucleated RBC % Seg Neutrophils # Man Lymphocytes # (Manual) Percent Retic Fibrinogen ABG pH POC ABG pO2 ABG pO2 ABG HCO3 ABG O2 Saturation ABG Base Excess ABG Hemoglobin Oxyhemoglobin Carboxyhemoglobin Sodium Potassium Chloride Carbon Dioxide BUN Creatinine Glucose POC Glucose 266 H 195 H 150 H Hemoglobin A1c Lactic Acid Calcium Phosphorus Magnesium Direct Bilirubin AST ALT Alkaline Phosphatase Lactate Dehydrogenase Total Protein Albumin Ur Specific [place] Urine Blood Urine WBC (Auto) Vancomycin Trough Crossmatch 02/01/22 02/02/22 02/02/22 23:39 00:25 00:25 WBC RBC Hgb Hct MCV MCH RDW Plt Count Seg Neuts % (Manual) Lymphocytes % (Manual) Nucleated RBC % Seg Neutrophils # Man Lymphocytes # (Manual) Percent Retic Fibrinogen ABG pH POC ABG pO2 ABG pO2 ABG HCO3 ABG O2 Saturation ABG Base Excess ABG Hemoglobin Oxyhemoglobin Carboxyhemoglobin Sodium 156 H D Potassium 3.0 L Chloride 114.2 H Carbon Dioxide BUN Creatinine 0.5 L Glucose 63 L POC Glucose 125 H Hemoglobin A1c Lactic Acid 7.10 H* Calcium 8.1 L Phosphorus Magnesium Direct Bilirubin AST ALT Alkaline Phosphatase Lactate Dehydrogenase Total Protein Albumin Ur Specific [place] Urine Blood Urine WBC (Auto) Vancomycin Trough Crossmatch 02/02/22 02/02/22 02/02/22 04:00 04:00 04:35 WBC 1.4 L* RBC Hgb 8.5 L Hct 26.8 L D MCV 57 L MCH 18 L RDW 19.0 H Plt Count 129 L Seg Neuts % (Manual) 33.0 L Lymphocytes % (Manual) 57.0 H Nucleated RBC % Seg Neutrophils # Man 0.5 L Lymphocytes # (Manual) 0.8 L Percent Retic Fibrinogen ABG pH POC ABG pO2 ABG pO2 ABG HCO3 ABG O2 Saturation ABG Base Excess ABG Hemoglobin Oxyhemoglobin Carboxyhemoglobin Sodium 155 H Potassium Chloride 113.1 H Carbon Dioxide BUN Creatinine Glucose 159 H POC Glucose Hemoglobin A1c Lactic Acid 3.10 H* Calcium 7.6 L Phosphorus Magnesium Direct Bilirubin AST ALT Alkaline Phosphatase Lactate Dehydrogenase Total Protein Albumin Ur Specific [place] Urine Blood Urine WBC (Auto) Vancomycin Trough Crossmatch 02/02/22 02/02/22 02/02/22 04:37 04:49 05:43 WBC RBC Hgb Hct MCV MCH RDW Plt Count Seg Neuts % (Manual) Lymphocytes % (Manual) Nucleated RBC % Seg Neutrophils # Man Lymphocytes # (Manual) Percent Retic Fibrinogen ABG pH 7.528 H POC ABG pO2 79.9 L ABG pO2 ABG HCO3 ABG O2 Saturation ABG Base Excess ABG Hemoglobin 8.8 L Oxyhemoglobin Carboxyhemoglobin 0.2 L Sodium Potassium Chloride Carbon Dioxide BUN Creatinine Glucose POC Glucose 116 H 125 H Hemoglobin A1c Lactic Acid Calcium Phosphorus Magnesium Direct Bilirubin AST ALT Alkaline Phosphatase Lactate Dehydrogenase Total Protein Albumin Ur Specific [place] Urine Blood Urine WBC (Auto) Vancomycin Trough Crossmatch 02/02/22 02/02/22 02/02/22 06:52 09:02 09:05 WBC RBC Hgb Hct MCV MCH RDW Plt Count Seg Neuts % (Manual) Lymphocytes % (Manual) Nucleated RBC % Seg Neutrophils # Man Lymphocytes # (Manual) Percent Retic Fibrinogen ABG pH POC ABG pO2 ABG pO2 ABG HCO3 ABG O2 Saturation ABG Base Excess ABG Hemoglobin Oxyhemoglobin Carboxyhemoglobin Sodium 154 H Potassium 3.3 L Chloride 113.3 H Carbon Dioxide BUN Creatinine Glucose 35 L* POC Glucose 110 H 35 L Hemoglobin A1c Lactic Acid Calcium 7.4 L Phosphorus 1.70 L D Magnesium 2.50 H Direct Bilirubin AST ALT Alkaline Phosphatase Lactate Dehydrogenase Total Protein Albumin Ur Specific [place] Urine Blood Urine WBC (Auto) Vancomycin Trough Crossmatch 02/02/22 02/02/22 02/02/22 09:05 09:30 09:41 WBC 2.6 L RBC Hgb 8.0 L Hct 25.0 L MCV 57 L MCH 18 L RDW 18.8 H Plt Count 97 L Seg Neuts % (Manual) Lymphocytes % (Manual) 12.0 L Nucleated RBC % 10.0 H Seg Neutrophils # Man 1.7 L Lymphocytes # (Manual) 0.3 L Percent Retic Fibrinogen ABG pH POC ABG pO2 ABG pO2 ABG HCO3 ABG O2 Saturation ABG Base Excess ABG Hemoglobin Oxyhemoglobin Carboxyhemoglobin Sodium Potassium Chloride Carbon Dioxide BUN Creatinine Glucose POC Glucose 119 H Hemoglobin A1c Lactic Acid 7.10 H* Calcium Phosphorus Magnesium Direct Bilirubin AST ALT Alkaline Phosphatase Lactate Dehydrogenase Total Protein Albumin Ur Specific [place] Urine Blood Urine WBC (Auto) Vancomycin Trough Crossmatch 02/02/22 02/02/22 02/02/22 10:17 12:32 15:39 WBC RBC Hgb Hct MCV MCH RDW Plt Count Seg Neuts % (Manual) Lymphocytes % (Manual) Nucleated RBC % Seg Neutrophils # Man Lymphocytes # (Manual) Percent Retic Fibrinogen ABG pH POC ABG pO2 ABG pO2 ABG HCO3 ABG O2 Saturation ABG Base Excess ABG Hemoglobin Oxyhemoglobin Carboxyhemoglobin Sodium Potassium Chloride Carbon Dioxide BUN Creatinine Glucose POC Glucose 120 H 166 H 263 H Hemoglobin A1c Lactic Acid Calcium Phosphorus Magnesium Direct Bilirubin AST ALT Alkaline Phosphatase Lactate Dehydrogenase Total Protein Albumin Ur Specific [place] Urine Blood Urine WBC (Auto) Vancomycin Trough Crossmatch 02/02/22 02/02/22 02/02/22 17:07 17:50 Unknown WBC RBC Hgb Hct MCV MCH RDW Plt Count Seg Neuts % (Manual) Lymphocytes % (Manual) Nucleated RBC % Seg Neutrophils # Man Lymphocytes # (Manual) Percent Retic Fibrinogen ABG pH 7.457 H POC ABG pO2 ABG pO2 71.0 L ABG HCO3 ABG O2 Saturation 94.5 L ABG Base Excess ABG Hemoglobin 9.2 L Oxyhemoglobin 93.0 L Carboxyhemoglobin Sodium 147 H Potassium 5.5 H D Chloride 110.8 H Carbon Dioxide BUN Creatinine Glucose 271 H POC Glucose 231 H Hemoglobin A1c Lactic Acid Calcium 7.3 L Phosphorus Magnesium Direct Bilirubin AST ALT Alkaline Phosphatase Lactate Dehydrogenase Total Protein Albumin Ur Specific [place] Urine Blood Urine WBC (Auto) Vancomycin Trough Crossmatch 02/03/22 02/03/22 02/03/22 00:08 04:00 04:00 WBC 3.7 L RBC Hgb 8.0 L Hct 25.5 L MCV 58 L MCH 18 L RDW 18.2 H Plt Count 79 L Seg Neuts % (Manual) 76.0 H Lymphocytes % (Manual) 2.0 L Nucleated RBC % 4.0 H Seg Neutrophils # Man Lymphocytes # (Manual) 0.1 L Percent Retic Fibrinogen ABG pH POC ABG pO2 ABG pO2 ABG HCO3 ABG O2 Saturation ABG Base Excess ABG Hemoglobin Oxyhemoglobin Carboxyhemoglobin Sodium 147 H Potassium Chloride 112.9 H Carbon Dioxide BUN Creatinine Glucose 281 H POC Glucose 231 H Hemoglobin A1c Lactic Acid Calcium 7.8 L Phosphorus Magnesium Direct Bilirubin 0.3 H AST 172 H ALT 89 H Alkaline Phosphatase Lactate Dehydrogenase Total Protein 4.7 L D Albumin 2.0 L Ur Specific [place] Urine Blood Urine WBC (Auto) Vancomycin Trough Crossmatch 02/03/22 02/03/22 02/03/22 04:20 05:26 11:38 WBC RBC Hgb Hct MCV MCH RDW Plt Count Seg Neuts % (Manual) Lymphocytes % (Manual) Nucleated RBC % Seg Neutrophils # Man Lymphocytes # (Manual) Percent Retic Fibrinogen ABG pH POC ABG pO2 ABG pO2 75.5 L ABG HCO3 ABG O2 Saturation ABG Base Excess -2.8 L ABG Hemoglobin 8.1 L Oxyhemoglobin 94.6 L Carboxyhemoglobin Sodium Potassium Chloride Carbon Dioxide BUN Creatinine Glucose POC Glucose 247 H 196 H Hemoglobin A1c Lactic Acid Calcium Phosphorus Magnesium Direct Bilirubin AST ALT Alkaline Phosphatase Lactate Dehydrogenase Total Protein Albumin Ur Specific [place] Urine Blood Urine WBC (Auto) Vancomycin Trough Crossmatch 02/03/22 02/04/22 02/04/22 16:27 02:44 03:18 WBC 1.2 L* RBC Hgb 8.2 L Hct 26.6 L MCV 59 L MCH 18 L RDW 19.6 H Plt Count 50 L Seg Neuts % (Manual) Lymphocytes % (Manual) Nucleated RBC % Seg Neutrophils # Man Lymphocytes # (Manual) Percent Retic Fibrinogen ABG pH POC ABG pO2 ABG pO2 ABG HCO3 ABG O2 Saturation ABG Base Excess ABG Hemoglobin Oxyhemoglobin Carboxyhemoglobin Sodium 148 H Potassium Chloride 116.3 H Carbon Dioxide BUN Creatinine Glucose 139 H POC Glucose 119 H Hemoglobin A1c Lactic Acid Calcium Phosphorus Magnesium Direct Bilirubin 0.3 H AST 92 H ALT 76 H Alkaline Phosphatase Lactate Dehydrogenase Total Protein 4.7 L Albumin 1.6 L Ur Specific [place] Urine Blood Urine WBC (Auto) Vancomycin Trough Crossmatch 02/04/22 02/04/22 02/04/22 05:15 05:26 09:15 WBC RBC Hgb Hct MCV MCH RDW Plt Count Seg Neuts % (Manual) Lymphocytes % (Manual) Nucleated RBC % Seg Neutrophils # Man Lymphocytes # (Manual) Percent Retic Fibrinogen ABG pH 7.311 L POC ABG pO2 ABG pO2 50.1 L ABG HCO3 ABG O2 Saturation 83.6 L ABG Base Excess ABG Hemoglobin 8.6 L Oxyhemoglobin 81.9 L Carboxyhemoglobin Sodium Potassium Chloride Carbon Dioxide BUN Creatinine Glucose POC Glucose 115 H Hemoglobin A1c Lactic Acid Calcium Phosphorus Magnesium Direct Bilirubin AST ALT Alkaline Phosphatase Lactate Dehydrogenase Total Protein Albumin Ur Specific [place] Urine Blood Large A Urine WBC (Auto) 12.0 H Vancomycin Trough Crossmatch 02/04/22 02/04/22 02/04/22 11:17 14:37 17:04 WBC RBC Hgb Hct MCV MCH RDW Plt Count Seg Neuts % (Manual) Lymphocytes % (Manual) Nucleated RBC % Seg Neutrophils # Man Lymphocytes # (Manual) Percent Retic Fibrinogen ABG pH POC ABG pO2 ABG pO2 ABG HCO3 ABG O2 Saturation ABG Base Excess ABG Hemoglobin Oxyhemoglobin Carboxyhemoglobin Sodium Potassium Chloride Carbon Dioxide BUN Creatinine Glucose POC Glucose 166 H 109 H Hemoglobin A1c Lactic Acid Calcium Phosphorus Magnesium Direct Bilirubin AST 87 H ALT 75 H Alkaline Phosphatase 137 H Lactate Dehydrogenase Total Protein 4.6 L Albumin 1.7 L Ur Specific [place] Urine Blood Urine WBC (Auto) Vancomycin Trough Crossmatch 02/04/22 02/04/22 02/04/22 20:15 20:22 20:22 WBC RBC Hgb 7.1 L Hct 22.6 L MCV MCH RDW Plt Count Seg Neuts % (Manual) Lymphocytes % (Manual) Nucleated RBC % Seg Neutrophils # Man Lymphocytes # (Manual) Percent Retic Fibrinogen ABG pH 7.292 L POC ABG pO2 ABG pO2 40.3 L ABG HCO3 ABG O2 Saturation 72.1 L ABG Base Excess -2.2 L ABG Hemoglobin 7.0 L Oxyhemoglobin 70.5 L Carboxyhemoglobin Sodium Potassium Chloride Carbon Dioxide BUN Creatinine Glucose POC Glucose Hemoglobin A1c Lactic Acid 3.00 H* Calcium Phosphorus Magnesium Direct Bilirubin AST ALT Alkaline Phosphatase Lactate Dehydrogenase Total Protein Albumin Ur Specific [place] Urine Blood Urine WBC (Auto) Vancomycin Trough Crossmatch 02/04/22 02/04/22 02/05/22 20:22 23:03 04:40 WBC 3.1 L RBC Hgb 9.6 L Hct 30.1 L D MCV 64 L MCH 20 L RDW 26.9 H Plt Count 50 L Seg Neuts % (Manual) Lymphocytes % (Manual) Nucleated RBC % Seg Neutrophils # Man Lymphocytes # (Manual) Percent Retic Fibrinogen ABG pH POC ABG pO2 ABG pO2 ABG HCO3 ABG O2 Saturation ABG Base Excess ABG Hemoglobin Oxyhemoglobin Carboxyhemoglobin Sodium Potassium Chloride Carbon Dioxide BUN Creatinine Glucose POC Glucose 171 H Hemoglobin A1c Lactic Acid Calcium Phosphorus Magnesium Direct Bilirubin AST ALT Alkaline Phosphatase Lactate Dehydrogenase Total Protein Albumin Ur Specific [place] Urine Blood Urine WBC (Auto) Vancomycin Trough Crossmatch See Detail 02/05/22 02/05/22 02/05/22 04:40 04:40 04:43 WBC RBC Hgb Hct MCV MCH RDW Plt Count Seg Neuts % (Manual) Lymphocytes % (Manual) Nucleated RBC % Seg Neutrophils # Man Lymphocytes # (Manual) Percent Retic Fibrinogen ABG pH POC ABG pO2 ABG pO2 ABG HCO3 ABG O2 Saturation ABG Base Excess ABG Hemoglobin Oxyhemoglobin Carboxyhemoglobin Sodium 148 H Potassium Chloride 113.2 H Carbon Dioxide BUN 21 H Creatinine Glucose 155 H POC Glucose 156 H Hemoglobin A1c Lactic Acid Calcium Phosphorus Magnesium Direct Bilirubin AST 84 H ALT 67 H Alkaline Phosphatase 152 H Lactate Dehydrogenase 879 H Total Protein 5.0 L Albumin 1.8 L Ur Specific [place] Urine Blood Urine WBC (Auto) Vancomycin Trough Crossmatch 02/05/22 02/05/22 02/05/22 08:10 08:48 08:48 WBC RBC Hgb Hct MCV MCH RDW Plt Count Seg Neuts % (Manual) Lymphocytes % (Manual) Nucleated RBC % Seg Neutrophils # Man Lymphocytes # (Manual) Percent Retic Fibrinogen 795 H ABG pH POC ABG pO2 ABG pO2 57.1 L ABG HCO3 27.8 H ABG O2 Saturation 90.8 L ABG Base Excess ABG Hemoglobin 8.5 L Oxyhemoglobin 88.9 L Carboxyhemoglobin Sodium Potassium Chloride Carbon Dioxide BUN Creatinine Glucose POC Glucose Hemoglobin A1c Lactic Acid 2.90 H* Calcium Phosphorus Magnesium Direct Bilirubin AST ALT Alkaline Phosphatase Lactate Dehydrogenase Total Protein Albumin Ur Specific [place] Urine Blood Urine WBC (Auto) Vancomycin Trough Crossmatch 02/05/22 02/05/22 02/05/22 11:46 17:45 Unknown WBC RBC Hgb Hct MCV MCH RDW Plt Count Seg Neuts % (Manual) Lymphocytes % (Manual) Nucleated RBC % Seg Neutrophils # Man Lymphocytes # (Manual) Percent Retic Fibrinogen ABG pH POC ABG pO2 ABG pO2 ABG HCO3 ABG O2 Saturation ABG Base Excess ABG Hemoglobin Oxyhemoglobin Carboxyhemoglobin Sodium Potassium Chloride Carbon Dioxide BUN Creatinine Glucose POC Glucose 61 L 133 H Hemoglobin A1c Lactic Acid Calcium Phosphorus Magnesium Direct Bilirubin AST ALT Alkaline Phosphatase Lactate Dehydrogenase Total Protein Albumin Ur Specific [place] Urine Blood Urine WBC (Auto) Vancomycin Trough 28.6 H Crossmatch 02/05/22 02/06/22 02/06/22 23:59 04:33 04:33 WBC RBC Hgb 8.4 L Hct 26.1 L MCV 64 L MCH 21 L RDW 26.2 H Plt Count 38 L Seg Neuts % (Manual) Lymphocytes % (Manual) Nucleated RBC % Seg Neutrophils # Man Lymphocytes # (Manual) Percent Retic Fibrinogen ABG pH POC ABG pO2 ABG pO2 ABG HCO3 ABG O2 Saturation ABG Base Excess ABG Hemoglobin Oxyhemoglobin Carboxyhemoglobin Sodium 146 H Potassium 3.4 L Chloride Carbon Dioxide 31 H BUN 21 H Creatinine Glucose 230 H POC Glucose 275 H Hemoglobin A1c Lactic Acid Calcium Phosphorus Magnesium Direct Bilirubin AST 70 H ALT Alkaline Phosphatase 197 H Lactate Dehydrogenase Total Protein 5.3 L Albumin 2.4 L Ur Specific [place] Urine Blood Urine WBC (Auto) Vancomycin Trough Crossmatch 02/06/22 02/06/22 02/06/22 04:33 04:50 06:19 WBC RBC Hgb Hct MCV MCH RDW Plt Count Seg Neuts % (Manual) Lymphocytes % (Manual) Nucleated RBC % Seg Neutrophils # Man Lymphocytes # (Manual) Percent Retic Fibrinogen ABG pH 7.330 L POC ABG pO2 ABG pO2 57.9 L ABG HCO3 31.3 H ABG O2 Saturation 89.6 L ABG Base Excess 4.5 H ABG Hemoglobin 8.1 L Oxyhemoglobin 87.7 L Carboxyhemoglobin Sodium Potassium Chloride Carbon Dioxide BUN Creatinine Glucose POC Glucose 219 H Hemoglobin A1c Lactic Acid 3.10 H* Calcium Phosphorus Magnesium Direct Bilirubin AST ALT Alkaline Phosphatase Lactate Dehydrogenase Total Protein Albumin Ur Specific [place] Urine Blood Urine WBC (Auto) Vancomycin Trough Crossmatch 02/06/22 02/06/22 02/06/22 11:24 11:50 12:26 WBC RBC Hgb Hct MCV MCH RDW Plt Count Seg Neuts % (Manual) Lymphocytes % (Manual) Nucleated RBC % Seg Neutrophils # Man Lymphocytes # (Manual) Percent Retic Fibrinogen ABG pH 7.298 L POC ABG pO2 ABG pO2 43.3 L ABG HCO3 36.7 H ABG O2 Saturation 74.9 L ABG Base Excess 8.8 H ABG Hemoglobin 8.2 L Oxyhemoglobin 73.3 L Carboxyhemoglobin Sodium Potassium Chloride Carbon Dioxide BUN Creatinine Glucose POC Glucose 118 H Hemoglobin A1c Lactic Acid 2.50 H* Calcium Phosphorus Magnesium Direct Bilirubin AST ALT Alkaline Phosphatase Lactate Dehydrogenase Total Protein Albumin Ur Specific [place] Urine Blood Urine WBC (Auto) Vancomycin Trough Crossmatch 02/06/22 02/06/22 02/07/22 17:41 21:41 00:17 WBC RBC Hgb Hct MCV MCH RDW Plt Count Seg Neuts % (Manual) Lymphocytes % (Manual) Nucleated RBC % Seg Neutrophils # Man Lymphocytes # (Manual) Percent Retic Fibrinogen ABG pH POC ABG pO2 ABG pO2 ABG HCO3 ABG O2 Saturation ABG Base Excess ABG Hemoglobin Oxyhemoglobin Carboxyhemoglobin Sodium Potassium Chloride Carbon Dioxide BUN Creatinine Glucose POC Glucose 208 H 282 H 342 H Hemoglobin A1c Lactic Acid Calcium Phosphorus Magnesium Direct Bilirubin AST ALT Alkaline Phosphatase Lactate Dehydrogenase Total Protein Albumin Ur Specific [place] Urine Blood Urine WBC (Auto) Vancomycin Trough Crossmatch 02/07/22 02/07/22 02/07/22 00:19 04:12 04:12 WBC 13.1 H RBC Hgb 8.5 L Hct 26.4 L MCV 62 L MCH 20 L RDW 24.2 H Plt Count 57 L Seg Neuts % (Manual) Lymphocytes % (Manual) Nucleated RBC % Seg Neutrophils # Man Lymphocytes # (Manual) Percent Retic Fibrinogen ABG pH POC ABG pO2 ABG pO2 ABG HCO3 ABG O2 Saturation ABG Base Excess ABG Hemoglobin Oxyhemoglobin Carboxyhemoglobin Sodium 149 H Potassium 3.1 L Chloride Carbon Dioxide 38 H D BUN 23 H Creatinine Glucose 298 H POC Glucose 209 H Hemoglobin A1c Lactic Acid Calcium Phosphorus 2.10 L Magnesium Direct Bilirubin AST 49 H ALT Alkaline Phosphatase 248 H Lactate Dehydrogenase Total Protein 5.4 L Albumin 2.7 L Ur Specific [place] Urine Blood Urine WBC (Auto) Vancomycin Trough Crossmatch 02/07/22 02/07/22 02/07/22 04:40 07:09 07:13 WBC RBC Hgb Hct MCV MCH RDW Plt Count Seg Neuts % (Manual) Lymphocytes % (Manual) Nucleated RBC % Seg Neutrophils # Man Lymphocytes # (Manual) Percent Retic Fibrinogen ABG pH 7.474 H POC ABG pO2 ABG pO2 62.1 L ABG HCO3 39.1 H ABG O2 Saturation 94.7 L ABG Base Excess 13.9 H ABG Hemoglobin 8.6 L Oxyhemoglobin 93.0 L Carboxyhemoglobin Sodium Potassium Chloride Carbon Dioxide BUN Creatinine Glucose POC Glucose 399 H 418 H Hemoglobin A1c Lactic Acid Calcium Phosphorus Magnesium Direct Bilirubin AST ALT Alkaline Phosphatase Lactate Dehydrogenase Total Protein Albumin Ur Specific [place] Urine Blood Urine WBC (Auto) Vancomycin Trough Crossmatch 02/07/22 02/07/22 02/07/22 12:20 17:29 23:37 WBC RBC Hgb Hct MCV MCH RDW Plt Count Seg Neuts % (Manual) Lymphocytes % (Manual) Nucleated RBC % Seg Neutrophils # Man Lymphocytes # (Manual) Percent Retic Fibrinogen ABG pH POC ABG pO2 ABG pO2 ABG HCO3 ABG O2 Saturation ABG Base Excess ABG Hemoglobin Oxyhemoglobin Carboxyhemoglobin Sodium Potassium Chloride Carbon Dioxide BUN Creatinine Glucose POC Glucose 229 H 159 H 236 H Hemoglobin A1c Lactic Acid Calcium Phosphorus Magnesium Direct Bilirubin AST ALT Alkaline Phosphatase Lactate Dehydrogenase Total Protein Albumin Ur Specific [place] Urine Blood Urine WBC (Auto) Vancomycin Trough Crossmatch 02/08/22 02/08/22 02/08/22 03:55 03:55 05:20 WBC 14.7 H RBC Hgb 7.7 L Hct 25.0 L MCV 64 L MCH 20 L RDW 25.1 H Plt Count 79 L Seg Neuts % (Manual) Lymphocytes % (Manual) Nucleated RBC % Seg Neutrophils # Man Lymphocytes # (Manual) Percent Retic 0.65 L Fibrinogen ABG pH POC ABG pO2 ABG pO2 ABG HCO3 ABG O2 Saturation ABG Base Excess ABG Hemoglobin Oxyhemoglobin Carboxyhemoglobin Sodium Potassium 3.0 L Chloride 93.9 L Carbon Dioxide 44 H* BUN 30 H Creatinine Glucose 229 H POC Glucose 235 H Hemoglobin A1c Lactic Acid Calcium 8.3 L Phosphorus 2.30 L Magnesium Direct Bilirubin AST 77 H ALT Alkaline Phosphatase 246 H Lactate Dehydrogenase Total Protein 5.2 L Albumin 2.7 L Ur Specific [place] Urine Blood Urine WBC (Auto) Vancomycin Trough Crossmatch 02/08/22 02/08/22 02/08/22 11:47 16:36 21:41 WBC RBC Hgb Hct MCV MCH RDW Plt Count Seg Neuts % (Manual) Lymphocytes % (Manual) Nucleated RBC % Seg Neutrophils # Man Lymphocytes # (Manual) Percent Retic Fibrinogen ABG pH POC ABG pO2 ABG pO2 ABG HCO3 ABG O2 Saturation ABG Base Excess ABG Hemoglobin Oxyhemoglobin Carboxyhemoglobin Sodium Potassium Chloride Carbon Dioxide BUN Creatinine Glucose POC Glucose 193 H 205 H 292 H Hemoglobin A1c Lactic Acid Calcium Phosphorus Magnesium Direct Bilirubin AST ALT Alkaline Phosphatase Lactate Dehydrogenase Total Protein Albumin Ur Specific [place] Urine Blood Urine WBC (Auto) Vancomycin Trough Crossmatch 02/08/22 02/08/22 02/09/22 Unknown 23:59 04:00 WBC 16.4 H RBC Hgb 8.2 L Hct 26.3 L MCV 63 L MCH 20 L RDW 23.9 H Plt Count 128 L Seg Neuts % (Manual) Lymphocytes % (Manual) Nucleated RBC % Seg Neutrophils # Man Lymphocytes # (Manual) Percent Retic Fibrinogen ABG pH 7.488 H POC ABG pO2 ABG pO2 63.1 L ABG HCO3 45.5 H ABG O2 Saturation 94.1 L ABG Base Excess 19.8 H ABG Hemoglobin 8.7 L Oxyhemoglobin 92.4 L Carboxyhemoglobin Sodium Potassium Chloride Carbon Dioxide BUN Creatinine Glucose POC Glucose 342 H Hemoglobin A1c Lactic Acid Calcium Phosphorus Magnesium Direct Bilirubin AST ALT Alkaline Phosphatase Lactate Dehydrogenase Total Protein Albumin Ur Specific [place] Urine Blood Urine WBC (Auto) Vancomycin Trough Crossmatch 02/09/22 02/09/22 02/09/22 04:00 05:30 06:07 WBC RBC Hgb Hct MCV MCH RDW Plt Count Seg Neuts % (Manual) Lymphocytes % (Manual) Nucleated RBC % Seg Neutrophils # Man Lymphocytes # (Manual) Percent Retic Fibrinogen ABG pH 7.539 H POC ABG pO2 ABG pO2 210.4 H ABG HCO3 42.4 H ABG O2 Saturation 99.3 H ABG Base Excess 18.0 H ABG Hemoglobin 7.8 L Oxyhemoglobin Carboxyhemoglobin Sodium 149 H Potassium 3.1 L Chloride 97.6 L Carbon Dioxide 42 H* BUN 27 H Creatinine Glucose 257 H POC Glucose 260 H Hemoglobin A1c Lactic Acid Calcium 8.2 L Phosphorus 1.90 L Magnesium Direct Bilirubin AST 81 H ALT Alkaline Phosphatase 229 H Lactate Dehydrogenase Total Protein 5.4 L Albumin 2.6 L Ur Specific [place] Urine Blood Urine WBC (Auto) Vancomycin Trough Crossmatch Chest x-ray: report reviewed, image reviewed
[2022-02-09] MEDS ORDERED: POTASSIUM PHOSPHATE 15 MMOL in SODIUM CHLORIDE 0.9% 250ML 250 ML IV ONE (09:30)
[2022-02-09] MEDS: QUEtiapine 25 MG TAB PO SCH ×2 (10:21→21:12)
[2022-02-09] MEDS: FAMOTIDINE 20 MG TAB FEEDTUBE SCH ×2 (10:22→21:12)
[2022-02-09] MEDS: DOCUSATE SODIUM 100 MG/10 ML ORAL LIQD PO SCH ×2 (10:25→21:23)
[2022-02-09] MEDS: SENNOSIDES/DOCUSATE SODIUM 8.6/50 MG TAB PO SCH ×2 (10:26→21:23)
--- NOTE | 2022-02-09 10:47 | Progress Note ---
Assessment and Plan Cultures: 01/31/2022 blood culture: No growth 02/01/2022 tracheal aspirate culture: Klebsiella pneumoniae COVID-19 PCR: Negative 02/04/2022 blood culture: no growth so far 02/04/2022 urine culture: No growth 02/04/2022 fungal blood culture: no growth so far A/P: 61-year-old female was admitted from [facility] with hypoglycemia: #Refractory septic shock, severe acidosis, s/p PEA arrest on 02/01/2022. #Bilateral pneumonia: Probably aspiration following PEA arrest. Initial chest x-ray did not show any pneumonia. Now with severe b/l pneumonia. #Possible UTI: UA showed pyuria #Acute hypoxic respiratory failure with ARDS: On mechanical ventilation. #Diabetic ketoacidosis on admission #Pancytopenia, neutropenia, thrombocytopenia: ?sepsis. Seen by hematology. HIV negative. Gradually improving. Recs: -continue IV ceftriaxone, complete total 7 days ending 02/12/2022 -leucocytosis is likely from steroids Doroteo Morales MD, FACP, [facility] ([facility] O: [phone] F: [phone] C: [phone] Subjective Date of service: 02/09/22 Principal diagnosis: DKA, s/p cardiopulmonary arrest Interval history: Afebrile. Remains on the vent, down to 55% FiO2. Remains off pressors. D/W RN. Objective - Exam Narrative Exam: Physical Exam: Constitutional: sedated, intubated, on the vent Head, Ears, Nose: Normocephalic, atraumatic. External ears, nose normal Eyes: Conjunctivae/corneas clear. No icterus. No ptosis. Neck: intubated Oral: intubated Cardiovascular: S1, S2 + Respiratory: AE fair bilaterally and equal GI: Soft, bowel sounds + Musculoskeletal: No pedal edema, no cyanosis. Skin: No rash or abscess Hem/Lymphatic: No palpable cervical or supraclavicular nodes. No lymphangitis Psych: no agitation Neurological: sedated, intubated, on the vent, exam limited - Constitutional Vitals: Vital Signs Temp Pulse Resp BP Pulse Ox 99.1 F 112 H 23 114/73 98 02/09/22 08:00 02/09/22 09:00 02/09/22 09:00 02/09/22 09:00 02/09/22 09:00 Temperature -Last 24 Hours Temperature 99.1 F Temperature 99.1 F Temperature 99.1 F Temperature 99.7 F Temperature 99 F Temperature 99.5 F - Labs CBC & Chem 7: 02/09/22 04:00 02/09/22 04:00 Labs: Abnormal lab results 02/08/22 02/08/22 02/08/22 Range/Units 11:47 16:36 21:41 WBC (4.5-11.0) K/mm3 Hgb (10.1-14.3) gm/dl Hct (30.3-42.9) % MCV (79-97) fl MCH (28-32) pg RDW (13.2-15.2) % Plt Count (140-440) K/mm3 ABG pH (7.350-7.450) pH Units ABG pO2 (80.0-90.0) mm Hg ABG HCO3 (20.0-26.0) mmol/L ABG O2 Saturation (95.0-99.0) % ABG Base Excess (-2.0-3.0) mmol/L ABG Hemoglobin (12.0-16.0) gm/dl Sodium (137-145) mmol/L Potassium (3.6-5.0) mmol/L Chloride (98-107) mmol/L Carbon Dioxide (22-30) mmol/L BUN (7-17) mg/dL Glucose (65-100) mg/dL POC Glucose 193 H 205 H 292 H (70-105) mg/dL Calcium (8.4-10.2) mg/dL Phosphorus (2.5-4.5) mg/dL AST (5-40) units/L Alkaline Phosphatase (35-129) units/L Total Protein (6.3-8.2) g/dL Albumin (3.9-5) g/dL 02/08/22 02/09/22 02/09/22 Range/Units 23:59 04:00 04:00 WBC 16.4 H (4.5-11.0) K/mm3 Hgb 8.2 L (10.1-14.3) gm/dl Hct 26.3 L (30.3-42.9) % MCV 63 L (79-97) fl MCH 20 L (28-32) pg RDW 23.9 H (13.2-15.2) % Plt Count 128 L (140-440) K/mm3 ABG pH (7.350-7.450) pH Units ABG pO2 (80.0-90.0) mm Hg ABG HCO3 (20.0-26.0) mmol/L ABG O2 Saturation (95.0-99.0) % ABG Base Excess (-2.0-3.0) mmol/L ABG Hemoglobin (12.0-16.0) gm/dl Sodium 149 H (137-145) mmol/L Potassium 3.1 L (3.6-5.0) mmol/L Chloride 97.6 L (98-107) mmol/L Carbon Dioxide 42 H* (22-30) mmol/L BUN 27 H (7-17) mg/dL Glucose 257 H (65-100) mg/dL POC Glucose 342 H (70-105) mg/dL Calcium 8.2 L (8.4-10.2) mg/dL Phosphorus 1.90 L (2.5-4.5) mg/dL AST 81 H (5-40) units/L Alkaline Phosphatase 229 H (35-129) units/L Total Protein 5.4 L (6.3-8.2) g/dL Albumin 2.6 L (3.9-5) g/dL 02/09/22 02/09/22 Range/Units 05:30 06:07 WBC (4.5-11.0) K/mm3 Hgb (10.1-14.3) gm/dl Hct (30.3-42.9) % MCV (79-97) fl MCH (28-32) pg RDW (13.2-15.2) % Plt Count (140-440) K/mm3 ABG pH 7.539 H (7.350-7.450) pH Units ABG pO2 210.4 H (80.0-90.0) mm Hg ABG HCO3 42.4 H (20.0-26.0) mmol/L ABG O2 Saturation 99.3 H (95.0-99.0) % ABG Base Excess 18.0 H (-2.0-3.0) mmol/L ABG Hemoglobin 7.8 L (12.0-16.0) gm/dl Sodium (137-145) mmol/L Potassium (3.6-5.0) mmol/L Chloride (98-107) mmol/L Carbon Dioxide (22-30) mmol/L BUN (7-17) mg/dL Glucose (65-100) mg/dL POC Glucose 260 H (70-105) mg/dL Calcium (8.4-10.2) mg/dL Phosphorus (2.5-4.5) mg/dL AST (5-40) units/L Alkaline Phosphatase (35-129) units/L Total Protein (6.3-8.2) g/dL Albumin (3.9-5) g/dL
--- NOTE | 2022-02-09 11:00 | Progress Note ---
<NICOLA TREVINO - Last Filed: 02/09/22 18:54> Assessment and Plan Assessment and plan: This is a 61-year-old female with known past medical history of DM, dementia, HLD, and HTN initially admitted for Hypoglycemia then went into DKA and was transferred to the ICU where she PEA arrested on 02/01. Patient is now with septic shock and on ventilatory support. Hospital Course to Date: 02/01: patient was transferred to ICU as lab work was consistent with DKA and started on insulin drip. Central line placed for IV access. Patient was given bicarb push and started on a bicarb drip. She was also started on Rocephin due to UTI however antibiotics are broadened to cefepime and vancomycin. 02/02: s/p cardiac arrest on 02/01. Bicarbonate drip discontinued. Pancytopenia noted, anion gap closed and transitioned to SSI and long-acting insulin. Patient was having hypoglycemia this morning which has been corrected now. Started on tube feeding. Potassium and phosphorus will be repleted. Hype rnatremia noted and FWF started with tube feedings. COVID-19 PCR pending. Venous Doppler ultrasound pending. Neurology and cardiology consulted. Echocardiogram pending. Patient currently on Levophed and sedated with propofol. Fentanyl added. Given 1 LR bolus this morning for hypotension. 02/03: LR bolus x2, remains on levophed, tachycardia and EKG completed which shows tachycardia. Increase in FiO2, Will culture with next temp spike. Will give 1 gm Calcium Gluconate. 02/04: S/p Bronch this am by [facility] at the bedside. Patient still spiking high temp despite broad spectrum IV Abx. Remains on high pressors with worsen neutropenia and thrombocytopenia. Will panculture this am, antifungal culture was also ordered. Continue current empiric IV Abx for now, awaiting sensitivity. Will also consult ID for further eval. Possible Hematology consult for pancytopenia per CCM. Possible family meeting with [facility] this week, case management to arrange. 02/05: Back up on full support on the vent. CXR with worsen bilateral opacities, S/p X1 dose of IV lasix. Patient also received 1units of PRBCs overnight due to anemia, H&H stable this am and no s/s of any active bleeding. Patient remains pancytopenic, still febrile. IV abx changed to Merrem and Vanc per ID, hematology consult pending. ST with episodes of SVT this am, plan for amiodarone gtt per Cardio. Off pressors this am. BP remains boderline, 25% IV Albumin and X1 dose of additional IV lasix gain today per CCM. Continue FWF for hypernatremi a. Lantus adjusted due to hypoglycemia. Possible family meeting tomorrow with [facility]. 8/3: Decompensated this am, sudden drop in SPO2 in the 80s, HR in the 50s, and MAP in the 40s. Back on 2 pressors, on 100% FIO2 and 12 of peep. Stat ABG pending, 1amp Bcarb given, stress dose steroids initiated. This an CXR reviewed with worsen opacities from prior. Patient remains on IV abx per ID. Hematology recommendations appreciated. Event discussed with [facility] who agreed with current intervention. Patient's daughter and sister were notified via phone. Current events, patient's diagnosis, overal condition, and poor prognosis were thoroughly discussed. GOC was also addressed with patient's daughter and sister, they voiced that if patient was able to speak for herself she would want all lifesaving measures, including CPR and medications if her heart stop. All questions and concerns were addressed at this time. They verbalized understanding and agreed with current care plan. Patient remains a FULL code status at This time. 84: Responded well to IV lasix and albumin overnight. CXR with some improvement today. IV lasix and albumin gain today per CCM. With increased WOB and tachpnea this am, low dose propofol added for RASS goal of 0 to -2. Wean FIO2 as tolerated for SPO2 goal above 92%. Worsen hyperglycemia this am, most like due to IV steroids, insulin therapy adjusted. Monitor and replace electrolytes as needed. Family meeting today with [facility], patient remains a FULL code status. 85: Tolerating gentle diurese. Patient missed overnight IV lasix/albumin dose, will repeat another dose this morning. Continue to wean Fio2 as tolerated. Remains off pressors, VSS. Concern for BLE ischemia probably due to hypoperfusion vs pressor use. Will check BLE arterial doppler to r/o occlusion. Possible Vascular Surgery consult dependent on doppler result. Lantus adjusted for persisting hyperglycemia. Electrolytes repleted, monitor and replace electrolytes as needed. 86: This am ABG and CXR with some improvement this am. Down to 55% Fio2 this am. Hypotensive overnight required short duration of Levophed gtt, pressor is off this am. Will hold on IV diuretic today. Continue to monitor for now. Electrolytes repleted, monitor and replace electrolytes as needed. Prior history of psych issues, seroquel added BID. BLE doppler pending. Assessment and Plan #Septic Shock #Supraventricular Tachycardia(SVT) #S/p PEA Arrest with ROSC #H/o HTN, HLD - Coded in the ICU on 02/01, PEA arrest - ROSC achieved post 1amp of bcarb and EPI - With tachycardia, persistent fevers, s/p multiple pressors - off pressors this am. ST on the monitor, VSS - On Stress dose steroids - Echo reviewed, EF 55-60%, see report for detail - Cardiology consulted, appreciated recommendations - amiodarone gtt transitioned to PO per Cardio - Continue blood pressure monitor per protocol - Pressor on standby for MAP less than 65 #Acute Hypoxic Respiratory Failure #ARDS #Bilateral Pneumonia - Intubated during code on 02/01 - This am CXR with worsening bilateral airspace opacities - 02/04 s/p Bronchoscopy at the bedside by [facility]- BAL sent to lab - Vent setting: PRVC-55%,10,12,350 - ABG and this am CXR with some improvement - s/p albumin and IV lasix - CCM consulted, appreciate recommendations - Continue IV Abx, IV steroids, and Nebs per CCM - wean Fio2 as tolerated - VAP bundle addressed - Aspiration precaution HOB above 30 - Daily ABG and CXR - Continue SPO2 monitoring for SPO2 goal above 92% #Septic Shock #Bilateral Pneumonia #Urinary Tract Infection(UTI) - With high fevers, neutropenia, thrombocytopenia, tachycardia, and hypotensive on multiple pressors - UA consistent with pyuria, Blood cultures with NGTD, Sputum culture with Klebsiella Pneumoniae - BLE doppler negative for DVT - repeat cultures with NGTD - ID consulted, appreciate recommendations - Leukocytosis most likely due to IV Steroids - Continue IV Abx per ID- [id number] until 02/11 per ID - f/u on culture - Monitor CBC and temperature curve #Pancytopenia-improved #Microcytic Anemia - Significant drop of WBCs and Plt count from admit - Probably due to septic shock, on IV Abx per ID - S/p 1unit PRBCs - No s/s of active bleeding, H&H stable this am - Continue to trend CBC - Hold AC for now - Hematology consulted, appreciate recommendations #Acute Metabolic Encephalopathy #h/o Dementia and Psych Issues - Intubated and Sedated- on fentanyl - Titrate sedations for RASS goal of 0 to -2 - Seroquel added BID - Daily SAT and SBT per CCM - Avoid benzodiazepine to reduce the possibility of delirium - PRN Analgesia for CPOT greater than 3 - Maintenance of sleep-wake cycle - Neurology consulted, appreciate recommendations #Hypokalemia #Hypernatremia - Low K most likely 2/2 IV Lasix - K repleted - Continue FWF Q4hrs for Hypernatremia - Strict intake and output - Avoid nephrotoxic medications - Monitor and replace electrolytes as needed #Concern for BLE Ischemia - probably due to hypoperfusion vs pressor use. - Will check BLE arterial doppler to r/o occlusion. - Possible Vascular Surgery consult dependent on doppler result. #Type 2 Diabetes mellitus #S/p DKA - initially presented with hypoglycemia then went into DKA - s/p DKA protocol - Hemoglobin A1c 11.1 - Now with hyperglycemia, most likely due to IV steroids - Continue BG and SSI Q6hrs and Lantus qHs- increased - Avoid Hypoglycemia #GI/DVT Prophylaxis - PPI- Pepcid - SCDs to bilateral lower extremities while in bed #Advance Care Planning - Patient's diagnosis, overal condition, and poor prognosis were thoroughly discussed. GOC was also addressed with patient's daughter and sister, they voiced that if patient was able to speak for herself she would want all lifesaving measures, including CPR and medications if her heart stop. All ques tions and concerns were addressed at this time. They verbalized understanding and agreed with current care plan. Patient remains a FULL code status at This time. The high probability of a clinically significant, sudden or life threatening deterioration of the [Multiple] system(s) required my full and direct attention, intervention and personal management. The aggregate critical care time was [60] minutes. This time is in addition to time spent performing reported procedures but includes the following: [x] Data Review and interpretation [x] Patient assessment and monitoring of vital signs [x] Documentation [x] Medication orders and management Disposition Plan: ICU Total Time Spent with Patient (Minutes): 60 History Interval history: Patient seen and examined at the bedside. Remains on the vent and sedated. Dropped in BP overnight required short periods of Levophed gtt. Pressors off this am Hospitalist Physical - Physical exam Narrative exam: General appearance: Present: no acute distress, other (Remains on the vent and sedated) - EENT Eyes: Present: mydriasis (sluggish) - Respiratory Respiratory effort: Labored, other(tachypneic) Respiratory: bilateral: rhonchi, wheezing - Cardiovascular Rhythm: regular Heart Sounds: Present: S1 & S2 - Extremities Extremities: Abnormal. BLE cold to touch, ischemia. Absent pulses Extremity abnormal: edema - Peripheral Assessment Generalized Edema Type: Pitting Edema Degree: 2+ Capillary Refill: < 3 seconds Skin Temperature: Warm Peripheral Pulses: within normal limits - Abdominal General gastrointestinal: soft, non-distended, normal bowel sounds - Integumentary Integumentary: Present: warm (Weeping) - Psychiatric Psychiatric: other (Intubated and sedated) - Neurologic Neurologic: move all extremities(Non-purposeful), other (Intubated and sedated) - Allied Health Allied health notes reviewed: nursing, case management - Constitutional Vitals: Temp Pulse Resp BP Pulse Ox 99.1 F 115 H 23 100/70 99 02/09/22 08:00 02/09/22 10:45 02/09/22 10:45 02/09/22 10:45 02/09/22 10:45 HEART Score - HEART Score Troponin: Troponin T < 0.010 ng/mL (0.00-0.029) 02/03/22 16:15 Results - Labs CBC & Chem 7: 02/09/22 04:00 02/09/22 04:00 Labs: Laboratory Last Values WBC 16.4 K/mm3 (4.5-11.0) H 02/09/22 04:00 RBC 4.16 M/mm3 (3.65-5.03) 02/09/22 04:00 Hgb 8.2 gm/dl (10.1-14.3) L 02/09/22 04:00 Hct 26.3 % (30.3-42.9) L 02/09/22 04:00 MCV 63 fl (79-97) L 02/09/22 04:00 MCH 20 pg (28-32) L 02/09/22 04:00 MCHC 31 % (30-34) 02/09/22 04:00 RDW 23.9 % (13.2-15.2) H 02/09/22 04:00 Plt Count 128 K/mm3 (140-440) L 02/09/22 04:00 Lymph % (Auto) [place] He[place] 02/02/22 04:00 Add Manual Diff Complete 02/03/22 04:00 Total Counted 50 02/03/22 04:00 Seg Neutrophils % [place] He[place] 02/02/22 04:00 Seg Neuts % (Manual) 76.0 % (40.0-70.0) H 02/03/22 04:00 Band Neutrophils % 18.0 % 02/03/22 04:00 Lymphocytes % (Manual) 2.0 % (13.4-35.0) L 02/03/22 04:00 Reactive Lymphs % (Man) 0 % 02/03/22 04:00 Monocytes % (Manual) 4.0 % (0.0-7.3) 02/03/22 04:00 Eosinophils % (Manual) 0 % (0.0-4.3) 02/03/22 04:00 Basophils % (Manual) 0 % (0.0-1.8) 02/03/22 04:00 Metamyelocytes % 0 % 02/03/22 04:00 Myelocytes % 0 % 02/03/22 04:00 Promyelocytes % 0 % 02/03/22 04:00 Blast Cells % 0 % 02/03/22 04:00 Nucleated RBC % 4.0 % (0.0-0.9) H 02/03/22 04:00 Seg Neutrophils # Man 2.8 K/mm3 (1.8-7.7) 02/03/22 04:00 Band Neutrophils # 0.7 K/mm3 02/03/22 04:00 Lymphocytes # (Manual) 0.1 K/mm3 (1.2-5.4) L 02/03/22 04:00 Abs React Lymphs (Man) 0.0 K/mm3 02/03/22 04:00 Monocytes # (Manual) 0.1 K/mm3 (0.0-0.8) 02/03/22 04:00 Eosinophils # (Manual) 0.0 K/mm3 (0.0-0.4) 02/03/22 04:00 Basophils # (Manual) 0.0 K/mm3 (0.0-0.1) 02/03/22 04:00 Metamyelocytes # 0.0 K/mm3 02/03/22 04:00 Myelocytes # 0.0 K/mm3 02/03/22 04:00 Promyelocytes # 0.0 K/mm3 02/03/22 04:00 Blast Cells # 0.0 K/mm3 02/03/22 04:00 WBC Morphology Not Reportable 02/03/22 04:00 Hypersegmented Neuts Not Reportable 02/03/22 04:00 Hyposegmented Neuts Not Reportable 02/03/22 04:00 Hypogranular Neuts Not Reportable 02/03/22 04:00 Smudge Cells Not Reportable 02/03/22 04:00 Toxic Granulation Not Reportable 02/03/22 04:00 Toxic Vacuolation Not Reportable 02/03/22 04:00 Dohle Bodies Few 02/03/22 04:00 Pelger-Huet Anomaly Not Reportable 02/03/22 04:00 Sung Rods Not Reportable 02/03/22 04:00 Platelet Estimate Consistent w auto 02/03/22 04:00 Clumped Platelets Not Reportable 02/03/22 04:00 Plt Clumps, EDTA Not Reportable 02/03/22 04:00 Large Platelets Not Reportable 02/03/22 04:00 Giant Platelets Not Reportable 02/03/22 04:00 Platelet Satelliting Not Reportable 02/03/22 04:00 Plt Morphology Comment Not Reportable 02/03/22 04:00 RBC Morphology Not Reportable 02/03/22 04:00 Dimorphic RBCs Not Reportable 02/03/22 04:00 Polychromasia Not Reportable 02/03/22 04:00 Hypochromasia 3+ 02/03/22 04:00 Poikilocytosis 2+ 02/03/22 04:00 Anisocytosis 1+ 02/03/22 04:00 Microcytosis 2+ 02/03/22 04:00 Macrocytosis Not Reportable 02/03/22 04:00 Spherocytes Not Reportable 02/03/22 04:00 Pappenheimer Bodies Not Reportable 02/03/22 04:00 Sickle Cells Not Reportable 02/03/22 04:00 Target Cells 1+ 02/03/22 04:00 Tear Drop Cells Few 02/03/22 04:00 Ovalocytes Few 02/03/22 04:00 Helmet Cells Not Reportable 02/03/22 04:00 [place] Bodies Not Reportable 02/03/22 04:00 [place] Rings Not Reportable 02/03/22 04:00 [place] Cells 1+ 02/03/22 04:00 Bite Cells Not Reportable 02/03/22 04:00 Crenated Cell Not Reportable 02/03/22 04:00 Elliptocytes Few 02/03/22 04:00 Acanthocytes (Spur) Not Reportable 02/03/22 04:00 Rouleaux Not Reportable 02/03/22 04:00 Hemoglobin C Crystals Not Reportable 02/03/22 04:00 Schistocytes Rare 02/03/22 04:00 Malaria parasites Not Reportable 02/03/22 04:00 Percent Retic 0.65 % (0.78-2.58) L 02/08/22 03:55 Sven Bodies Not Reportable 02/03/22 04:00 Hem Pathologist Commnt No 02/03/22 04:00 PT 14.8 Sec. (12.2-14.9) 02/05/22 08:48 INR 1.02 (0.87-1.13) 02/05/22 08:48 APTT 34.4 Sec. (24.2-36.6) 02/05/22 08:48 Fibrinogen 795 mg/dl (211-480) H 02/05/22 08:48 ABG pH 7.539 pH Units (7.350-7.450) H 02/09/22 05:30 POC ABG pCO2 37.3 mmHg (32.0-48.0) 02/02/22 04:49 ABG pCO2 50.9 mm Hg 02/09/22 05:30 POC ABG pO2 79.9 mmHg (83-108) L 02/02/22 04:49 ABG pO2 210.4 mm Hg (80.0-90.0) H 02/09/22 05:30 POC ABG HCO3 30.3 02/02/22 04:49 ABG HCO3 42.4 mmol/L (20.0-26.0) H 02/09/22 05:30 ABG O2 Saturation 99.3 % (95.0-99.0) H 02/09/22 05:30 ABG O2 Content 11.2 (0.0-44) 02/09/22 05:30 POC ABG Base Excess 7.1 02/02/22 04:49 ABG Base Excess 18.0 mmol/L (-2.0-3.0) H 02/09/22 05:30 ABG Hemoglobin 7.8 gm/dl (12.0-16.0) L 02/09/22 05:30 ABG Oxyhemoglobin 96.0 (94-98) 02/02/22 04:49 ABG Carboxyhemoglobin 1.3 % (0.0-5.0) 02/09/22 05:30 ABG Methemoglobin 0.6 % (0.0-1.5) 02/09/22 05:30 ABG Sodium Not Reportable 02/02/22 04:49 ABG Potassium Not Reportable 02/02/22 04:49 ABG Chloride Not Reportable 02/02/22 04:49 ABG Glucose Not Reportable 02/02/22 04:49 Oxyhemoglobin 97.5 % (95.0-99.0) 02/09/22 05:30 Carboxyhemoglobin 0.2 (0.5-1.5) L 02/02/22 04:49 FiO2 80 % 02/09/22 05:30 FiO2 % 60.0 02/02/22 04:49 Sodium 149 mmol/L (137-145) H 02/09/22 04:00 Potassium 3.1 mmol/L (3.6-5.0) L 02/09/22 04:00 Chloride 97.6 mmol/L (98-107) L 02/09/22 04:00 Carbon Dioxide 42 mmol/L (22-30) H* 02/09/22 04:00 Anion Gap 14 mmol/L 02/09/22 04:00 BUN 27 mg/dL (7-17) H 02/09/22 04:00 Creatinine 0.6 mg/dL (0.6-1.2) 02/09/22 04:00 Estimated GFR > 60 ml/min 02/09/22 04:00 BUN/Creatinine Ratio 45 % 02/09/22 04:00 Glucose 257 mg/dL (65-100) H 02/09/22 04:00 POC Glucose 260 mg/dL (70-105) H 02/09/22 06:07 Hemoglobin A1c 11.1 % (4-6) H 02/01/22 12:54 Lactic Acid 2.50 mmol/L (0.7-2.0) H* 02/06/22 11:50 Calcium 8.2 mg/dL (8.4-10.2) L 02/09/22 04:00 Phosphorus 1.90 mg/dL (2.5-4.5) L 02/09/22 04:00 Magnesium 2.20 mg/dL (1.7-2.3) 02/09/22 04:00 Total Bilirubin 0.20 mg/dL (0.1-1.2) 02/09/22 04:00 Direct Bilirubin < 0.2 mg/dL (0-0.2) 02/08/22 03:55 Indirect Bilirubin 0.0 mg/dL 02/08/22 03:55 AST 81 units/L (5-40) H 02/09/22 04:00 ALT 54 units/L (7-56) 02/09/22 04:00 Alkaline Phosphatase 229 units/L (35-129) H 02/09/22 04:00 Lactate Dehydrogenase 879 units/L (91-180) H 02/05/22 04:40 Troponin T < 0.010 ng/mL (0.00-0.029) 02/03/22 16:15 Total Protein 5.4 g/dL (6.3-8.2) L 02/09/22 04:00 Albumin 2.6 g/dL (3.9-5) L 02/09/22 04:00 Albumin/Globulin Ratio 0.9 % 02/09/22 04:00 Arterial Blood Glucose Not Reportable 02/02/22 04:49 Urine Color Yellow (Yellow) 02/04/22 09:15 Urine Turbidity Cloudy (Clear) 02/04/22 09:15 Urine pH 6.0 (5.0-7.0) 02/04/22 09:15 Ur Specific [place] 1.025 (1.003-1.030) 02/04/22 09:15 Urine Protein >500 mg/dL (Negative) 02/04/22 09:15 Urine Glucose (UA) Negative mg/dL (Negative) 02/04/22 09:15 Urine Ketones Negative mg/dL (Negative) 02/04/22 09:15 Urine Blood Large (Negative) A 02/04/22 09:15 Urine Nitrite Negative (Negative) 02/04/22 09:15 Ur Reducing Substances Not Reportable 01/31/22 22:49 Urine Bilirubin Negative (Negative) 02/04/22 09:15 Urine Ictotest Not Reportable 01/31/22 22:49 Urine Urobilinogen < 2.0 mg/dL (<2.0) 02/04/22 09:15 Ur Leukocyte Esterase Negative (Negative) 02/04/22 09:15 Urine WBC (Auto) 12.0 /HPF (0.0-6.0) H 02/04/22 09:15 Urine RBC (Auto) 107.0 /HPF (0.0-6.0) 02/04/22 09:15 U Epithel Cells (Auto) 1.0 /HPF (0-13.0) 02/04/22 09:15 Urine Bacteria (Auto) 1+ /HPF (Negative) 02/04/22 09:15 Urine Mucus Few /HPF 02/04/22 09:15 Urine Yeast (Budding) 2+ /HPF 02/04/22 09:15 Vancomycin Trough 28.6 ug/mL (5.0-20.0) H 02/05/22 Unknown Coronavirus (PCR) Negative (Negative) 02/02/22 10:44 SARS-CoV-2 (PCR) Negative (Negative) 02/01/22 08:50 HIV 1&2 Antibody Rapid Non react (Non React) 02/04/22 14:37 HIV P24 Antigen Non react (Non React) 02/04/22 14:37 Blood Type A POSITIVE 02/04/22 20:22 Antibody Screen Negative 02/04/22 20:22 Crossmatch See Detail 02/04/22 20:22 Microbiology: Microbiology 02/04/22 14:37 Peripheral/Venous Blood Culture - Preliminary NO GROWTH AFTER 4 DAYS 02/04/22 14:37 Peripheral/Venous Blood Culture - Preliminary NO GROWTH AFTER 4 DAYS 02/04/22 14:37 Peripheral/Venous Blood Fungal Culture - Preliminary Culture in Progress Gastelum/IV: Voiding Method External Female Catheter Active Medications - Current Medications Current Medications: Generic Name Dose Route Start Last Admin Trade Name Freq PRN Reason Stop Dose Admin Acetaminophen 650 mg 02/01/22 00:57 02/04/22 11:58 Acetaminophen 325 Mg Tab PO 650 mg Q4H PRN Administration Pain MILD(1-3)/Fever >100.5/ROSADO Albumin Human 12.5 gm 02/07/22 21:00 Albumin Human 25% (12.5 Gm/50 Ml) Inj IV ONCE JAMIL Albuterol 2.5 mg 02/01/22 00:57 Albuterol 2.5 Mg/3 Ml Nebu IH Q3HRT PRN Shortness Of Breath Lipase/Protease/Amylase 1 each 02/02/22 08:08 Lipase 10,500/Protease 25,000/Amylase 43,750 (Units) Dr Avelar FEEDTUBE PRN PRN For Clogged Feeding Tube Atorvastatin Calcium 20 mg 02/03/22 22:00 02/08/22 21:42 Atorvastatin 20 Mg Tab FEEDTUBE 20 mg QHS JAMIL Administration Dextrose 50 ml 02/02/22 08:00 02/05/22 11:52 Dextrose 50% In Water (25gm) 50 Ml Syringe IV 25 ml Q30MIN PRN Administration Hypoglycemia Protocol Docusate Sodium 100 mg 02/07/22 10:00 02/09/22 10:25 Docusate Sodium 100 Mg/10 Ml Oral Liqd PO Not Given BID JAMIL Famotidine 20 mg 02/04/22 10:00 02/09/22 10:22 Famotidine 20 Mg Tab FEEDTUBE 20 mg BID JAMIL Administration Fentanyl 50 mcg 02/02/22 09:45 02/08/22 05:49 Fentanyl 100 Mcg/2 Ml Inj IV 50 mcg Q10MIN PRN Administration ANALGESIA Hydrocortisone Sodium Succinate 100 mg 02/06/22 13:00 02/09/22 05:57 Hydrocortisone Sod Succ 100 Mg/2 Ml Vial IV 100 mg Q8HR JAMIL Administration Hydrophilic Ointment 1 applic 02/01/22 18:52 Lip Therapy Vaseline TP Q2HR PRN Dry Lips NORepinephrine/NS 8 MG-250 ML 8 mg in 250 mls @ 3.75 mls/hr 02/01/22 20:00 02/07/22 19:18 Norepinephrine/Ns 8 Mg-250 Ml (Double Conc) IV 0 mcg/min TITRATE JAMIL 0 mls/hr Titration Protocol 2 MCG/MIN Propofol 1,000 mg in 100 mls @ 1.429 mls/hr 02/01/22 19:17 02/08/22 16:30 Diprivan 10 Mg/Ml IV 0 mcg/kg/min TITR JAMIL 0 mls/hr Titration Protocol 5 MCG/KG/MIN Fentanyl Citrate 2,000 mcg in 100 mls @ 2.381 mls/hr 02/02/22 10:00 02/08/22 20:48 Fentanyl Drip Premix IV 2 mcg/kg/hr TITR JAMIL 4.763 mls/hr Titration Protocol 1 MCG/KG/HR Phenylephrine HCl 100 mg/ 100 mls @ 3 mls/hr 02/03/22 14:15 02/07/22 19:18 Sodium Chloride IV 0 mcg/min TITR JAMIL 0 mls/hr Titration Protocol 50 MCG/MIN Sodium Chloride 500 mls @ 5 mls/hr 02/04/22 03:00 02/08/22 05:21 Nacl 0.9% 500 Ml IV 5 mls/hr DIRECT JAMIL Administration Vasopressin 20 unit/ Sodium 101 mls @ 9.09 mls/hr 02/04/22 09:15 02/07/22 19:18 Chloride IV 0 units/min TITR JAMIL 0 mls/hr Titration Protocol 0.03 UNITS/MIN Ceftriaxone Sodium 2 gm in 100 mls @ 200 mls/hr 02/05/22 16:00 02/08/22 18:13 Rocephin/Ns 2 Gm/100 Ml IV 02/11/22 16:29 Infused Q24H [facility] Infusion Protocol Potassium Phosphate 15 mmol/ 255 mls @ 125 mls/hr 02/09/22 09:30 02/09/22 10:22 Sodium Chloride IV 02/09/22 11:32 125 mls/hr ONCE ONE Administration Insulin Glargine 35 units 02/09/22 22:00 Insulin Glargine 100 Units/Ml SUB-Q QHS [facility] Insulin Human Regular 0 units 02/02/22 18:00 02/09/22 06:09 Insulin Regular, Human 100 Units/1 Ml SUB-Q 6 units Q6H [facility] Administration Protocol Insulin Human Regular 5 units 02/09/22 09:00 Insulin Regular, Human 100 Units/1 Ml SUB-Q 02/09/22 15:01 Q6H [facility] Multi-Ingred Cream/Lotion/Oil/Oint 1 applic 02/01/22 18:52 Mineral Oil/Petrolatum, White Ophth Oint 3.5 Gm OU Q4HR PRN Dry Eye(s) Ondansetron HCl 4 mg 02/01/22 00:57 Ondansetron 4 Mg/2 Ml Inj IV Q8H PRN Nausea And Vomiting Quetiapine Fumarate 50 mg 02/09/22 10:00 02/09/22 10:21 Quetiapine 25 Mg Tab PO 50 mg BID JAMIL Administration Senna/Docusate Sodium 2 tab 02/07/22 10:00 02/09/22 10:26 Sennosides/Docusate Sodium 8.6/50 Mg Tab PO Not Given Q12H JAMIL Simple Syrup 15 ml 02/02/22 08:08 Simple Syrup 15 Ml FEEDTUBE PRN PRN Hypoglycemia Simple Syrup 30 ml 02/02/22 08:08 Simple Syrup 15 Ml FEEDTUBE PRN PRN Hypoglycemia Sodium Bicarbonate 325 mg 02/02/22 08:08 Sodium Bicarbonate 325 Mg Tab FEEDTUBE PRN PRN For Clogged Feeding Tube Sodium Chloride 10 ml 02/01/22 10:00 02/09/22 10:22 Sodium Chloride 0.9% 10 Ml Flush Syringe IV 10 ml BID JAMIL Administration Sodium Chloride 10 ml 02/01/22 00:57 02/09/22 05:59 Sodium Chloride 0.9% 10 Ml Flush Syringe IV 10 ml PRN PRN Administration LINE FLUSH Nutrition/Malnutrition Assess - Dietary Evaluation Nutrition/Malnutrition Findings: Nutrition Notes Start: 02/01/22 17:50 Freq: Status: Active Protocol: Document 02/06/22 09:48 JACQUELINE (Rec: 02/06/22 10:15 JACQUELINE [id number]) Nutrition Notes Initial or Follow up Brief Note Current Diagnosis Diabetes,Sepsis,Respiratory Failure Other Pertinent Diagnosis s/p DKA, s/p PEA Arrest, Pneumonia, Pyuria, Pancytopenia, UTI, ... Current Diet TF-Glucerna 1.2 [place] @ 55 ml/hr (since L 02/04). Labs/Tests 02/06: Na 146, K 3.4, CO2 31, BUN 21, Glu 230. Pertinent Medications 02/06: Humulin R 4U, KCl 10mEq , others nutritionally unremarkable. Height 5 ft 4 in Weight 46.5 kg [place] Body Weight (kg) 54.54 BMI 17.6 Weight change and time frame 0.2 Kg body weight loss reported in 2 days. Weight Status Underweight Subjective/Other Information RD consult for TF tolerance/ continuation. TF continues as prescribed, and well tolerated, according to RN notes. 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 - END OF NOTE. Pt remains on Mechanical Ventilation, O2 saturation @ 96%, according to Physical Assessment History notes. Pt remains incontinent, according to Physical Assessment History notes. Percent of energy/protein needs met: Prescribed TF-Glucerna 1.2 [place] @ 55 ml/hr provides for energy/protein needs (1584 Kcal/79 g) during LOS, 97% Kcal; 100% AA. #1 Nutrition Diagnosis Inadequate oral intake Diagnosis Progress(for reassessment Continues documentation) Is patient on ventilator? Yes Is Patient Ambulatory and/or Out of Bed No REE-([facility]-confined to bed) 1235.112 Kcal/Kg value to use for calculation 35 Approximate Energy Requirements Using 1628 kcal/Kg Calculation Used for Recommendations Kcal/kg Additional Notes Protein: 1.2-2 g/Kg ABW; 56-93 g/day. Fluids: 1 ml/Kcal, or as per MD. Nutrition Intervention Nutrition Support: Continue TF-Glucerna 1.2 [place] @ 55 ml/hr. Flush: 250 ml water Q 4 hr while hypernatremia persists, resume to 100 ml when Na is WNL. Kcal 1,584 Protein (gm) 79 Carbohydrates (gm) 151 Fat (gm) 79 Fluid (mL) 1,063 Fiber (gm) 21 % RDI: 97% Kcal; 100% AA. Goal #1 Provide at least 75% of energy /protein needs through Enteral Feeding during LOS. Follow-Up By: 02/13/22 Additional Comments Continue monitoring TF tolerance, Mechanical Ventilation, Hypernatremia, and BM. <MELISSA WHITE E - Last Filed: 02/10/22 07:13> Assessment and Plan Assessment and plan: I saw and evaluated the patient. I agree with the findings and the plan of care as documented in the Nurse Practitioner's~note, with the following corrections and additions. Hospitalist Physical - Constitutional Vitals: Temp Pulse Resp BP Pulse Ox 99.0 F 117 H 23 108/79 99 02/10/22 03:10 02/10/22 05:15 02/10/22 05:15 02/10/22 05:15 02/10/22 05:15 HEART Score - HEART Score Troponin: Troponin T < 0.010 ng/mL (0.00-0.029) 02/03/22 16:15 Results - Labs CBC & Chem 7: 02/10/22 03:40 02/10/22 03:40 Labs: Laboratory Last Values WBC 17.2 K/mm3 (4.5-11.0) H 02/10/22 03:40 RBC 4.03 M/mm3 (3.65-5.03) 02/10/22 03:40 Hgb 7.9 gm/dl (10.1-14.3) L 02/10/22 03:40 Hct 25.3 % (30.3-42.9) L 02/10/22 03:40 MCV 63 fl (79-97) L 02/10/22 03:40 MCH 20 pg (28-32) L 02/10/22 03:40 MCHC 31 % (30-34) 02/10/22 03:40 RDW 20.7 % (13.2-15.2) H 02/10/22 03:40 Plt Count 191 K/mm3 (140-440) 02/10/22 03:40 Lymph % (Auto) Manganese Heater 02/02/22 04:00 Add Manual Diff Complete 02/03/22 04:00 Total Counted 50 02/03/22 04:00 Seg Neutrophils % [place] Heater 02/02/22 04:00 Seg Neuts % (Manual) 76.0 % (40.0-70.0) H 02/03/22 04:00 Band Neutrophils % 18.0 % 02/03/22 04:00 Lymphocytes % (Manual) 2.0 % (13.4-35.0) L 02/03/22 04:00 Reactive Lymphs % (Man) 0 % 02/03/22 04:00 Monocytes % (Manual) 4.0 % (0.0-7.3) 02/03/22 04:00 Eosinophils % (Manual) 0 % (0.0-4.3) 02/03/22 04:00 Basophils % (Manual) 0 % (0.0-1.8) 02/03/22 04:00 Metamyelocytes % 0 % 02/03/22 04:00 Myelocytes % 0 % 02/03/22 04:00 Promyelocytes % 0 % 02/03/22 04:00 Blast Cells % 0 % 02/03/22 04:00 Nucleated RBC % 4.0 % (0.0-0.9) H 02/03/22 04:00 Seg Neutrophils # Man 2.8 K/mm3 (1.8-7.7) 02/03/22 04:00 Band Neutrophils # 0.7 K/mm3 02/03/22 04:00 Lymphocytes # (Manual) 0.1 K/mm3 (1.2-5.4) L 02/03/22 04:00 Abs React Lymphs (Man) 0.0 K/mm3 02/03/22 04:00 Monocytes # (Manual) 0.1 K/mm3 (0.0-0.8) 02/03/22 04:00 Eosinophils # (Manual) 0.0 K/mm3 (0.0-0.4) 02/03/22 04:00 Basophils # (Manual) 0.0 K/mm3 (0.0-0.1) 02/03/22 04:00 Metamyelocytes # 0.0 K/mm3 02/03/22 04:00 Myelocytes # 0.0 K/mm3 02/03/22 04:00 Promyelocytes # 0.0 K/mm3 02/03/22 04:00 Blast Cells # 0.0 K/mm3 02/03/22 04:00 WBC Morphology Not Reportable 02/03/22 04:00 Hypersegmented Neuts Not Reportable 02/03/22 04:00 Hyposegmented Neuts Not Reportable 02/03/22 04:00 Hypogranular Neuts Not Reportable 02/03/22 04:00 Smudge Cells Not Reportable 02/03/22 04:00 Toxic Granulation Not Reportable 02/03/22 04:00 Toxic Vacuolation Not Reportable 02/03/22 04:00 Dohle Bodies Few 02/03/22 04:00 Pelger-Huet Anomaly Not Reportable 02/03/22 04:00 Sung Rods Not Reportable 02/03/22 04:00 Platelet Estimate Consistent w auto 02/03/22 04:00 Clumped Platelets Not Reportable 02/03/22 04:00 Plt Clumps, EDTA Not Reportable 02/03/22 04:00 Large Platelets Not Reportable 02/03/22 04:00 Giant Platelets Not Reportable 02/03/22 04:00 Platelet Satelliting Not Reportable 02/03/22 04:00 Plt Morphology Comment Not Reportable 02/03/22 04:00 RBC Morphology Not Reportable 02/03/22 04:00 Dimorphic RBCs Not Reportable 02/03/22 04:00 Polychromasia Not Reportable 02/03/22 04:00 Hypochromasia 3+ 02/03/22 04:00 Poikilocytosis 2+ 02/03/22 04:00 Anisocytosis 1+ 02/03/22 04:00 Microcytosis 2+ 02/03/22 04:00 Macrocytosis Not Reportable 02/03/22 04:00 Spherocytes Not Reportable 02/03/22 04:00 Pappenheimer Bodies Not Reportable 02/03/22 04:00 Sickle Cells Not Reportable 02/03/22 04:00 Target Cells 1+ 02/03/22 04:00 Tear Drop Cells Few 02/03/22 04:00 Ovalocytes Few 02/03/22 04:00 Helmet Cells Not Reportable 02/03/22 04:00 [place] Bodies Not Reportable 02/03/22 04:00 [place] Rings Not Reportable 02/03/22 04:00 [place] Cells 1+ 02/03/22 04:00 Bite Cells Not Reportable 02/03/22 04:00 Crenated Cell Not Reportable 02/03/22 04:00 Elliptocytes Few 02/03/22 04:00 Acanthocytes (Spur) Not Reportable 02/03/22 04:00 Rouleaux Not Reportable 02/03/22 04:00 Hemoglobin C Crystals Not Reportable 02/03/22 04:00 Schistocytes Rare 02/03/22 04:00 Malaria parasites Not Reportable 02/03/22 04:00 Percent Retic 0.65 % (0.78-2.58) L 02/08/22 03:55 Sven Bodies Not Reportable 02/03/22 04:00 Hem Pathologist Commnt No 02/03/22 04:00 PT 14.8 Sec. (12.2-14.9) 02/05/22 08:48 INR 1.02 (0.87-1.13) 02/05/22 08:48 APTT 34.4 Sec. (24.2-36.6) 02/05/22 08:48 Fibrinogen 795 mg/dl (211-480) H 02/05/22 08:48 ABG pH 7.468 pH Units (7.350-7.450) H 02/10/22 04:17 POC ABG pCO2 37.3 mmHg (32.0-48.0) 02/02/22 04:49 ABG pCO2 59.5 mm Hg 02/10/22 04:17 POC ABG pO2 79.9 mmHg (83-108) L 02/02/22 04:49 ABG pO2 124.2 mm Hg (80.0-90.0) H 02/10/22 04:17 POC ABG HCO3 30.3 02/02/22 04:49 ABG HCO3 42.1 mmol/L (20.0-26.0) H 02/10/22 04:17 ABG O2 Saturation 98.4 % (95.0-99.0) 02/10/22 04:17 ABG O2 Content 10.5 (0.0-44) 02/10/22 04:17 POC ABG Base Excess 7.1 02/02/22 04:49 ABG Base Excess 16.6 mmol/L (-2.0-3.0) H 02/10/22 04:17 ABG Hemoglobin 7.6 gm/dl (12.0-16.0) L 02/10/22 04:17 ABG Oxyhemoglobin 96.0 (94-98) 02/02/22 04:49 ABG Carboxyhemoglobin 1.5 % (0.0-5.0) 02/10/22 04:17 ABG Methemoglobin 0.5 % (0.0-1.5) 02/10/22 04:17 ABG Sodium Not Reportable 02/02/22 04:49 ABG Potassium Not Reportable 02/02/22 04:49 ABG Chloride Not Reportable 02/02/22 04:49 ABG Glucose Not Reportable 02/02/22 04:49 Oxyhemoglobin 96.4 % (95.0-99.0) 02/10/22 04:17 Carboxyhemoglobin 0.2 (0.5-1.5) L 02/02/22 04:49 FiO2 55 % 02/10/22 04:17 FiO2 % 60.0 02/02/22 04:49 Sodium 149 mmol/L (137-145) H 02/10/22 03:40 Potassium 3.2 mmol/L (3.6-5.0) L 02/10/22 03:40 Chloride 99.8 mmol/L (98-107) 02/10/22 03:40 Carbon Dioxide 38 mmol/L (22-30) H 02/10/22 03:40 Anion Gap 14 mmol/L 02/10/22 03:40 BUN 26 mg/dL (7-17) H 02/10/22 03:40 Creatinine 0.5 mg/dL (0.6-1.2) L 02/10/22 03:40 Estimated GFR > 60 ml/min 02/10/22 03:40 BUN/Creatinine Ratio 52 % 02/10/22 03:40 Glucose 188 mg/dL (65-100) H 02/10/22 03:40 POC Glucose 189 mg/dL (70-105) H 02/10/22 04:17 Hemoglobin A1c 11.1 % (4-6) H 02/01/22 12:54 Lactic Acid 2.50 mmol/L (0.7-2.0) H* 02/06/22 11:50 Calcium 8.3 mg/dL (8.4-10.2) L 02/10/22 03:40 Phosphorus 2.10 mg/dL (2.5-4.5) L 02/10/22 03:40 Magnesium 2.30 mg/dL (1.7-2.3) 02/10/22 03:40 Total Bilirubin 0.30 mg/dL (0.1-1.2) 02/10/22 03:40 Direct Bilirubin < 0.2 mg/dL (0-0.2) 02/08/22 03:55 Indirect Bilirubin 0.0 mg/dL 02/08/22 03:55 AST 120 units/L (5-40) H 02/10/22 03:40 ALT 80 units/L (7-56) H 02/10/22 03:40 Alkaline Phosphatase 207 units/L (35-129) H 02/10/22 03:40 Lactate Dehydrogenase 879 units/L (91-180) H 02/05/22 04:40 Troponin T < 0.010 ng/mL (0.00-0.029) 02/03/22 16:15 Total Protein 5.3 g/dL (6.3-8.2) L 02/10/22 03:40 Albumin 2.4 g/dL (3.9-5) L 02/10/22 03:40 Albumin/Globulin Ratio 0.8 % 02/10/22 03:40 Arterial Blood Glucose Not Reportable 02/02/22 04:49 Urine Color Yellow (Yellow) 02/04/22 09:15 Urine Turbidity Cloudy (Clear) 02/04/22 09:15 Urine pH 6.0 (5.0-7.0) 02/04/22 09:15 Ur Specific [place] 1.025 (1.003-1.030) 02/04/22 09:15 Urine Protein >500 mg/dL (Negative) 02/04/22 09:15 Urine Glucose (UA) Negative mg/dL (Negative) 02/04/22 09:15 Urine Ketones Negative mg/dL (Negative) 02/04/22 09:15 Urine Blood Large (Negative) A 02/04/22 09:15 Urine Nitrite Negative (Negative) 02/04/22 09:15 Ur Reducing Substances Not Reportable 01/31/22 22:49 Urine Bilirubin Negative (Negative) 02/04/22 09:15 Urine Ictotest Not Reportable 01/31/22 22:49 Urine Urobilinogen < 2.0 mg/dL (<2.0) 02/04/22 09:15 Ur Leukocyte Esterase Negative (Negative) 02/04/22 09:15 Urine WBC (Auto) 12.0 /HPF (0.0-6.0) H 02/04/22 09:15 Urine RBC (Auto) 107.0 /HPF (0.0-6.0) 02/04/22 09:15 U Epithel Cells (Auto) 1.0 /HPF (0-13.0) 02/04/22 09:15 Urine Bacteria (Auto) 1+ /HPF (Negative) 02/04/22 09:15 Urine Mucus Few /HPF 02/04/22 09:15 Urine Yeast (Budding) 2+ /HPF 02/04/22 09:15 Vancomycin Trough 28.6 ug/mL (5.0-20.0) H 02/05/22 Unknown Coronavirus (PCR) Negative (Negative) 02/02/22 10:44 SARS-CoV-2 (PCR) Negative (Negative) 02/01/22 08:50 HIV 1&2 Antibody Rapid Non react (Non React) 02/04/22 14:37 HIV P24 Antigen Non react (Non React) 02/04/22 14:37 Blood Type A POSITIVE 02/04/22 20:22 Antibody Screen Negative 02/04/22 20:22 Crossmatch See Detail 02/04/22 20:22 Microbiology: Microbiology 02/04/22 14:37 Peripheral/Venous Blood Culture - Final NO GROWTH AFTER 5 DAYS 02/04/22 14:37 Peripheral/Venous Blood Culture - Final NO GROWTH AFTER 5 DAYS 02/04/22 14:37 Peripheral/Venous Blood Fungal Culture - Preliminary Culture in Progress Gastelum/IV: Voiding Method External Female Catheter Active Medications - Current Medications Current Medications: Generic Name Dose Route Start Last Admin Trade Name Freq PRN Reason Stop Dose Admin Acetaminophen 650 mg 02/01/22 00:57 02/04/22 11:58 Acetaminophen 325 Mg Tab PO 650 mg Q4H PRN Administration Pain MILD(1-3)/Fever >100.5/ROSADO Albumin Human 12.5 gm 02/07/22 21:00 Albumin Human 25% (12.5 Gm/50 Ml) Inj IV ONCE JAMIL Albuterol 2.5 mg 02/01/22 00:57 Albuterol 2.5 Mg/3 Ml Nebu IH Q3HRT PRN Shortness Of Breath Lipase/Protease/Amylase 1 each 02/02/22 08:08 Lipase 10,500/Protease 25,000/Amylase 43,750 (Units) Dr Avelar FEEDTUBE PRN PRN For Clogged Feeding Tube Atorvastatin Calcium 20 mg 02/03/22 22:00 02/09/22 21:12 Atorvastatin 20 Mg Tab FEEDTUBE 20 mg QHS JAMIL Administration Dextrose 50 ml 02/02/22 08:00 02/05/22 11:52 Dextrose 50% In Water (25gm) 50 Ml Syringe IV 25 ml Q30MIN PRN Administration Hypoglycemia Protocol Docusate Sodium 100 mg 02/07/22 10:00 02/09/22 21:23 Docusate Sodium 100 Mg/10 Ml Oral Liqd PO Not Given BID JAMIL Famotidine 20 mg 02/04/22 10:00 02/09/22 21:12 Famotidine 20 Mg Tab FEEDTUBE 20 mg BID JAMIL Administration Fentanyl 50 mcg 02/02/22 09:45 02/08/22 05:49 Fentanyl 100 Mcg/2 Ml Inj IV 50 mcg Q10MIN PRN Administration ANALGESIA Hydrocortisone Sodium Succinate 100 mg 02/06/22 13:00 02/10/22 05:07 Hydrocortisone Sod Succ 100 Mg/2 Ml Vial IV 100 mg Q8HR JAMIL Administration Hydrophilic Ointment 1 applic 02/01/22 18:52 Lip Therapy Vaseline TP Q2HR PRN Dry Lips NORepinephrine/NS 8 MG-250 ML 8 mg in 250 mls @ 3.75 mls/hr 02/01/22 20:00 02/07/22 19:18 Norepinephrine/Ns 8 Mg-250 Ml (Double Conc) IV 0 mcg/min TITRATE JAMIL 0 mls/hr Titration Protocol 2 MCG/MIN Propofol 1,000 mg in 100 mls @ 1.429 mls/hr 02/01/22 19:17 02/08/22 16:30 Diprivan 10 Mg/Ml IV 0 mcg/kg/min TITR JAMIL 0 mls/hr Titration Protocol 5 MCG/KG/MIN Fentanyl Citrate 2,000 mcg in 100 mls @ 2.381 mls/hr 02/02/22 10:00 02/09/22 14:59 Fentanyl Drip Premix IV 2 mcg/kg/hr TITR JAMIL 4.763 mls/hr Administration Protocol 1 MCG/KG/HR Phenylephrine HCl 100 mg/ 100 mls @ 3 mls/hr 02/03/22 14:15 02/07/22 19:18 Sodium Chloride IV 0 mcg/min TITR JAMIL 0 mls/hr Titration Protocol 50 MCG/MIN Sodium Chloride 500 mls @ 5 mls/hr 02/04/22 03:00 02/08/22 05:21 Nacl 0.9% 500 Ml IV 5 mls/hr DIRECT JAMIL Administration Vasopressin 20 unit/ Sodium 101 mls @ 9.09 mls/hr 02/04/22 09:15 02/07/22 19:18 Chloride IV 0 units/min TITR JAMIL 0 mls/hr Titration Protocol 0.03 UNITS/MIN Ceftriaxone Sodium 2 gm in 100 mls @ 200 mls/hr 02/05/22 16:00 02/09/22 15:18 Rocephin/Ns 2 Gm/100 Ml IV 02/11/22 16:29 200 mls/hr Q24H JAMIL Administration Protocol Insulin Glargine 35 units 02/09/22 22:00 02/09/22 21:18 Insulin Glargine 100 Units/Ml SUB-Q 35 units QHS JAMIL Administration Insulin Human Regular 0 units 02/02/22 18:00 02/10/22 05:06 Insulin Regular, Human 100 Units/1 Ml SUB-Q 3 units Q6H JAMIL Administration Protocol Multi-Ingred Cream/Lotion/Oil/Oint 1 applic 02/01/22 18:52 Mineral Oil/Petrolatum, White Ophth Oint 3.5 Gm OU Q4HR PRN Dry Eye(s) Ondansetron HCl 4 mg 02/01/22 00:57 Ondansetron 4 Mg/2 Ml Inj IV Q8H PRN Nausea And Vomiting Quetiapine Fumarate 50 mg 02/09/22 10:00 02/09/22 21:12 Quetiapine 25 Mg Tab PO 50 mg BID JAMIL Administration Senna/Docusate Sodium 2 tab 02/07/22 10:00 02/09/22 21:23 Sennosides/Docusate Sodium 8.6/50 Mg Tab PO Not Given Q12H JAMIL Simple Syrup 15 ml 02/02/22 08:08 Simple Syrup 15 Ml FEEDTUBE PRN PRN Hypoglycemia Simple Syrup 30 ml 02/02/22 08:08 Simple Syrup 15 Ml FEEDTUBE PRN PRN Hypoglycemia Sodium Bicarbonate 325 mg 02/02/22 08:08 Sodium Bicarbonate 325 Mg Tab FEEDTUBE PRN PRN For Clogged Feeding Tube Sodium Chloride 10 ml 02/01/22 10:00 02/09/22 21:13 Sodium Chloride 0.9% 10 Ml Flush Syringe IV 10 ml BID JAMIL Administration Sodium Chloride 10 ml 02/01/22 00:57 02/09/22 05:59 Sodium Chloride 0.9% 10 Ml Flush Syringe IV 10 ml PRN PRN Administration LINE FLUSH Nutrition/Malnutrition Assess - Dietary Evaluation Nutrition/Malnutrition Findings: Nutrition Notes Start: 02/01/22 17:50 Freq: Status: Active Protocol: Document 02/06/22 09:48 JACQUELINE (Rec: 02/06/22 10:15 JACQUELINE [id number]) Nutrition Notes Initial or Follow up Brief Note Current Diagnosis Diabetes,Sepsis,Respiratory Failure Other Pertinent Diagnosis s/p DKA, s/p PEA Arrest, Pneumonia, Pyuria, Pancytopenia, UTI, ... Current Diet TF-Glucerna 1.2 [place] @ 55 ml/hr (since L 02/04). Labs/Tests 02/06: Na 146, K 3.4, CO2 31, BUN 21, Glu 230. Pertinent Medications 02/06: Humulin R 4U, KCl 10mEq , others nutritionally unremarkable. Height 5 ft 4 in Weight 46.5 kg [place] Body Weight (kg) 54.54 BMI 17.6 Weight change and time frame 0.2 Kg body weight loss reported in 2 days. Weight Status Underweight Subjective/Other Information RD consult for TF tolerance/ continuation. TF continues as prescribed, and well tolerated, according to RN notes. 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 - END OF NOTE. Pt remains on Mechanical Ventilation, O2 saturation @ 96%, according to Physical Assessment History notes. Pt remains incontinent, according to Physical Assessment History notes. Percent of energy/protein needs met: Prescribed TF-Glucerna 1.2 [place] @ 55 ml/hr provides for energy/protein needs (1584 Kcal/79 g) during LOS, 97% Kcal; 100% AA. #1 Nutrition Diagnosis Inadequate oral intake Diagnosis Progress(for reassessment Continues documentation) Is patient on ventilator? Yes Is Patient Ambulatory and/or Out of Bed No REE-([facility]-confined to bed) 1235.112 Kcal/Kg value to use for calculation 35 Approximate Energy Requirements Using 1628 kcal/Kg Calculation Used for Recommendations Kcal/kg Additional Notes Protein: 1.2-2 g/Kg ABW; 56-93 g/day. Fluids: 1 ml/Kcal, or as per MD. Nutrition Intervention Nutrition Support: Continue TF-Glucerna 1.2 [place] @ 55 ml/hr. Flush: 250 ml water Q 4 hr while hypernatremia persists, resume to 100 ml when Na is WNL. Kcal 1,584 Protein (gm) 79 Carbohydrates (gm) 151 Fat (gm) 79 Fluid (mL) 1,063 Fiber (gm) 21 % RDI: 97% Kcal; 100% AA. Goal #1 Provide at least 75% of energy /protein needs through Enteral Feeding during LOS. Follow-Up By: 02/13/22 Additional Comments Continue monitoring TF tolerance, Mechanical Ventilation, Hypernatremia, and BM.
[2022-02-09] MEDS: fentaNYL DRIP Premix 2,000 MCG/100 ML BAG IV SCH (14:59)
[2022-02-09] MEDS: cefTRIAXone/NS 2 GM/100 ML 2 GM/100 ML BAG IV SCH (15:18)
[2022-02-09 20:44] LABS: ABG Base Excess 19.2 mmol/L (-2.0-3.0); ABG HCO3 44.2 mmol/L (20.0-26.0); ABG Methemoglobin 0.4 % (0.0-1.5); ABG PCO2 57.5 mm Hg; ABG PH 7.504 pH Units (7.350-7.450); ABG PO2 79.7 mm Hg (80.0-90.0)
[2022-02-09] MEDS: INSULIN GLARGINE 100 UNITS/ML SUB-Q SCH (21:18)
[2022-02-10 04:06] LABS: Hematocrit 25.3 % (30.3-42.9); Hemoglobin 7.9 gm/dl (10.1-14.3); Mean Corpuscular HGB Conc 31 % (30-34); Red Blood Count 4.03 M/mm3 (3.65-5.03)
[2022-02-10 04:14] LABS: Mean Corpuscular Volume 63 fl (79-97); Red Cell Distribution Width 20.7 % (13.2-15.2)
[2022-02-10 04:15] LABS: Platelet Count 191 K/mm3 (140-440)
[2022-02-10 04:22] LABS: Alanine Aminotransferase 80 units/L (7-56); Albumin 2.4 g/dL (3.9-5); Blood Urea Nitrogen 26 mg/dL (7-17); Calcium 8.3 mg/dL (8.4-10.2); Hemolysis Index 3
[2022-02-10 04:29] LABS: BUN/Creatinine Ratio 52
[2022-02-10 04:54] LABS: ABG Base Excess 16.6 mmol/L (-2.0-3.0); ABG HCO3 42.1 mmol/L (20.0-26.0); ABG Methemoglobin 0.5 % (0.0-1.5); ABG Oxygen Saturation 98.4 % (95.0-99.0); ABG PCO2 59.5 mm Hg; ABG PH 7.468 pH Units (7.350-7.450); ABG PO2 124.2 mm Hg (80.0-90.0)
[2022-02-10] MEDS: INSULIN REGULAR, HUMAN 100 UNITS/1 ML SUB-Q SCH ×4 (05:06→23:27)
[2022-02-10] MEDS: HYDROCORTISONE SOD SUCC 100 MG/2 ML VIAL IV SCH ×3 (05:07→21:17)
[2022-02-10] MEDS ORDERED: POTASSIUM CHLORIDE 20 MEQ PACKET FEEDTUBE SCH (09:00)
--- NOTE | 2022-02-10 09:01 | XRay Report ---
CHEST 1 VIEW INDICATION: follow up respiratory failure. COMPARISON: One day prior. FINDINGS: Support devices: Unchanged. Heart: Stable. Lungs/Pleura: Diffuse bilateral pulmonary opacities are stable. IMPRESSION: 1. No significant change. Signer Name: Joe Parry MD Signed: 02/10/2022 8:57 AM Workstation Name: [id number]
[2022-02-10] MEDS: SENNOSIDES/DOCUSATE SODIUM 8.6/50 MG TAB PO SCH ×2 (09:43→21:18)
[2022-02-10] MEDS: QUEtiapine 25 MG TAB PO SCH ×2 (09:44→21:17)
[2022-02-10] MEDS: DOCUSATE SODIUM 100 MG/10 ML ORAL LIQD PO SCH ×2 (09:44→21:16)
[2022-02-10] MEDS: fentaNYL DRIP Premix 2,000 MCG/100 ML BAG IV SCH (09:44)
[2022-02-10] MEDS: FAMOTIDINE 20 MG TAB FEEDTUBE SCH ×2 (09:46→21:17)
[2022-02-10] MEDS: K-PHOS NEUTRAL 250 MG TAB PO SCH ×4 (10:28→21:16)
[2022-02-10] MEDS: FREE WATER PO SCH ×4 (10:28→21:17)
--- NOTE | 2022-02-10 13:34 | Progress Note ---
Assessment and Plan - Patient Problems (1) Debility, unspecified Current Visit: Yes Status: Acute (2) ARDS (adult respiratory distress syndrome) Current Visit: Yes Status: Acute (3) Acute respiratory failure Current Visit: Yes Status: Acute Qualifiers: Respiratory failure complication: hypoxia Qualified Code(s): J96.01 - Acute respiratory failure with hypoxia (4) Cardiopulmonary arrest with successful resuscitation Current Visit: Yes Status: Acute (5) DKA (diabetic ketoacidosis) Current Visit: Yes Status: Acute (6) Hypotension Current Visit: Yes Status: Acute (7) Pancytopenia Current Visit: Yes Status: Acute (8) SVT (supraventricular tachycardia) Current Visit: Yes Status: Acute (9) Sepsis Current Visit: Yes Status: Acute Subjective Principal diagnosis: DKA, s/p cardiopulmonary arrest Interval history: on vent vent fio2 40% peep 10 tv 350 r 12 mv 6.4 Objective Vital Signs - 12hr 02/10/22 02/10/22 02/10/22 01:45 02:00 02:15 Temperature Pulse Rate 122 H 125 H 121 H Pulse Rate [ From Monitor] Respiratory 28 H 24 22 Rate Blood Pressure 111/79 118/79 104/73 O2 Sat by Pulse 99 98 99 Oximetry 02/10/22 02/10/22 02/10/22 02:30 02:45 03:00 Temperature Pulse Rate 123 H 120 H 120 H Pulse Rate [ 118 H From Monitor] Respiratory 21 24 23 Rate Blood Pressure 111/78 110/73 114/75 O2 Sat by Pulse 98 99 99 Oximetry 02/10/22 02/10/22 02/10/22 03:10 03:15 03:30 Temperature 99.0 F Pulse Rate 119 H 120 H Pulse Rate [ From Monitor] Respiratory 20 23 Rate Blood Pressure 106/73 118/73 O2 Sat by Pulse 99 99 Oximetry 02/10/22 02/10/22 02/10/22 03:45 04:00 04:15 Temperature Pulse Rate 119 H 120 H 118 H Pulse Rate [ From Monitor] Respiratory 21 22 17 Rate Blood Pressure 115/79 115/78 113/79 O2 Sat by Pulse 98 98 97 Oximetry 02/10/22 02/10/22 02/10/22 04:18 04:30 04:45 Temperature Pulse Rate 116 H 116 H 121 H Pulse Rate [ From Monitor] Respiratory 21 21 Rate Blood Pressure 113/79 104/78 129/92 O2 Sat by Pulse 99 96 Oximetry 02/10/22 02/10/22 02/10/22 05:00 05:15 05:30 Temperature Pulse Rate 116 H 117 H 117 H Pulse Rate [ From Monitor] Respiratory 20 23 22 Rate Blood Pressure 110/76 108/79 118/80 O2 Sat by Pulse 100 99 100 Oximetry 02/10/22 02/10/22 02/10/22 05:45 06:00 06:15 Temperature Pulse Rate 116 H 114 H 113 H Pulse Rate [ From Monitor] Respiratory 19 21 20 Rate Blood Pressure 114/77 110/77 109/78 O2 Sat by Pulse 99 100 Oximetry 02/10/22 02/10/22 02/10/22 06:30 06:45 07:00 Temperature Pulse Rate 113 H 113 H 114 H Pulse Rate [ From Monitor] Respiratory 19 17 19 Rate Blood Pressure 116/79 105/77 106/77 O2 Sat by Pulse 99 99 99 Oximetry 02/10/22 02/10/22 02/10/22 07:15 07:30 07:45 Temperature Pulse Rate 116 H 114 H 114 H Pulse Rate [ From Monitor] Respiratory 20 21 18 Rate Blood Pressure 117/84 113/77 116/75 O2 Sat by Pulse 99 100 Oximetry 02/10/22 02/10/22 02/10/22 07:54 08:00 08:15 Temperature 99.7 F H Pulse Rate 114 H 115 H 114 H Pulse Rate [ From Monitor] Respiratory 19 19 Rate Blood Pressure 116/75 113/76 118/79 O2 Sat by Pulse 99 98 99 Oximetry 02/10/22 02/10/22 02/10/22 08:30 08:45 09:00 Temperature Pulse Rate 111 H 110 H 112 H Pulse Rate [ From Monitor] Respiratory 17 19 19 Rate Blood Pressure 109/78 112/77 116/78 O2 Sat by Pulse 98 98 99 Oximetry 02/10/22 02/10/22 02/10/22 09:15 09:30 09:45 Temperature Pulse Rate 114 H 117 H 117 H Pulse Rate [ From Monitor] Respiratory 23 21 20 Rate Blood Pressure 113/80 116/79 115/78 O2 Sat by Pulse 97 95 96 Oximetry 02/10/22 02/10/22 02/10/22 10:00 10:15 10:30 Temperature Pulse Rate 125 H 124 H 124 H Pulse Rate [ From Monitor] Respiratory 24 20 20 Rate Blood Pressure 102/70 107/72 103/69 O2 Sat by Pulse 96 96 Oximetry 02/10/22 02/10/22 02/10/22 10:45 11:00 11:15 Temperature Pulse Rate 122 H 122 H 122 H Pulse Rate [ From Monitor] Respiratory 20 21 20 Rate Blood Pressure 106/70 106/70 97/67 O2 Sat by Pulse 96 97 97 Oximetry 02/10/22 02/10/22 02/10/22 11:30 11:45 12:00 Temperature Pulse Rate 120 H 120 H 120 H Pulse Rate [ From Monitor] Respiratory 20 20 Rate Blood Pressure 101/69 106/69 110/70 O2 Sat by Pulse 96 97 Oximetry Constitutional: other (on vent, orally intubated) Eyes: non-icteric ENT: oropharynx moist Ascultation: Bilateral: diminished breath sounds Cardiovascular: regular rate and rhythm Gastrointestinal: normoactive bowel sounds Integumentary: normal Neurologic: other (on vent) Psychiatric: other (on vent) CBC and BMP: 02/10/22 03:40 02/10/22 03:40 ABG, PT/INR, D-dimer: ABG ABG pH 7.468 pH Units (7.350-7.450) H 02/10/22 04:17 POC ABG pCO2 37.3 mmHg (32.0-48.0) 02/02/22 04:49 ABG pCO2 59.5 mm Hg 02/10/22 04:17 POC ABG pO2 79.9 mmHg (83-108) L 02/02/22 04:49 ABG pO2 124.2 mm Hg (80.0-90.0) H 02/10/22 04:17 POC ABG HCO3 30.3 02/02/22 04:49 ABG O2 Saturation 98.4 % (95.0-99.0) 02/10/22 04:17 PT/INR, D-dimer PT 14.8 Sec. (12.2-14.9) 02/05/22 08:48 INR 1.02 (0.87-1.13) 02/05/22 08:48 Abnormal lab findings: Abnormal Labs 01/31/22 01/31/22 01/31/22 20:33 20:33 20:33 WBC 12.5 H RBC 6.16 H Hgb Hct MCV 61 L MCH 18 L RDW 19.6 H Plt Count Seg Neuts % (Manual) 98.0 H Lymphocytes % (Manual) 0 L Nucleated RBC % 2.0 H Seg Neutrophils # Man 12.3 H Lymphocytes # (Manual) 0.0 L Percent Retic Fibrinogen ABG pH POC ABG pO2 ABG pO2 ABG HCO3 ABG O2 Saturation ABG Base Excess ABG Hemoglobin Oxyhemoglobin Carboxyhemoglobin Sodium Potassium 5.6 H Chloride 110.1 H Carbon Dioxide 9 L* BUN Creatinine Glucose 254 H POC Glucose Hemoglobin A1c Lactic Acid 2.50 H* Calcium 10.8 H Phosphorus Magnesium Direct Bilirubin AST ALT Alkaline Phosphatase Lactate Dehydrogenase Total Protein Albumin Ur Specific [place] Urine Blood Urine WBC (Auto) Vancomycin Trough Crossmatch 01/31/22 02/01/22 02/01/22 22:49 07:34 08:22 WBC RBC Hgb Hct MCV MCH RDW Plt Count Seg Neuts % (Manual) Lymphocytes % (Manual) Nucleated RBC % Seg Neutrophils # Man Lymphocytes # (Manual) Percent Retic Fibrinogen ABG pH POC ABG pO2 ABG pO2 ABG HCO3 ABG O2 Saturation ABG Base Excess ABG Hemoglobin Oxyhemoglobin Carboxyhemoglobin Sodium Potassium 5.8 H Chloride 115.8 H Carbon Dioxide 3 L* BUN Creatinine Glucose 400 H POC Glucose 368 H Hemoglobin A1c Lactic Acid Calcium Phosphorus Magnesium Direct Bilirubin AST ALT Alkaline Phosphatase Lactate Dehydrogenase Total Protein Albumin Ur Specific [place] 1.035 H Urine Blood Small A Urine WBC (Auto) 142.0 H Vancomycin Trough Crossmatch 02/01/22 02/01/22 02/01/22 09:42 12:01 12:54 WBC RBC Hgb Hct MCV MCH RDW Plt Count Seg Neuts % (Manual) Lymphocytes % (Manual) Nucleated RBC % Seg Neutrophils # Man Lymphocytes # (Manual) Percent Retic Fibrinogen ABG pH 7.044 L* POC ABG pO2 ABG pO2 121.0 H ABG HCO3 3.7 L ABG O2 Saturation ABG Base Excess -24.8 L ABG Hemoglobin 9.3 L Oxyhemoglobin Carboxyhemoglobin Sodium Potassium Chloride Carbon Dioxide BUN Creatinine Glucose POC Glucose 382 H Hemoglobin A1c Lactic Acid Calcium Phosphorus 1.40 L Magnesium 1.30 L Direct Bilirubin AST ALT Alkaline Phosphatase Lactate Dehydrogenase Total Protein Albumin Ur Specific [place] Urine Blood Urine WBC (Auto) Vancomycin Trough Crossmatch 02/01/22 02/01/22 02/01/22 12:54 12:54 13:27 WBC RBC Hgb Hct MCV MCH RDW Plt Count Seg Neuts % (Manual) Lymphocytes % (Manual) Nucleated RBC % Seg Neutrophils # Man Lymphocytes # (Manual) Percent Retic Fibrinogen ABG pH POC ABG pO2 ABG pO2 ABG HCO3 ABG O2 Saturation ABG Base Excess ABG Hemoglobin Oxyhemoglobin Carboxyhemoglobin Sodium 148 H D Potassium 3.0 L D Chloride 117.3 H Carbon Dioxide 9 L* BUN Creatinine Glucose 439 H POC Glucose 342 H Hemoglobin A1c 11.1 H Lactic Acid Calcium 7.7 L Phosphorus Magnesium Direct Bilirubin AST ALT Alkaline Phosphatase Lactate Dehydrogenase Total Protein Albumin Ur Specific [place] Urine Blood Urine WBC (Auto) Vancomycin Trough Crossmatch 02/01/22 02/01/22 02/01/22 14:48 15:48 16:54 WBC RBC Hgb Hct MCV MCH RDW Plt Count Seg Neuts % (Manual) Lymphocytes % (Manual) Nucleated RBC % Seg Neutrophils # Man Lymphocytes # (Manual) Percent Retic Fibrinogen ABG pH POC ABG pO2 ABG pO2 ABG HCO3 ABG O2 Saturation ABG Base Excess ABG Hemoglobin Oxyhemoglobin Carboxyhemoglobin Sodium Potassium Chloride Carbon Dioxide BUN Creatinine Glucose POC Glucose 394 H 412 H 352 H Hemoglobin A1c Lactic Acid Calcium Phosphorus Magnesium Direct Bilirubin AST ALT Alkaline Phosphatase Lactate Dehydrogenase Total Protein Albumin Ur Specific [place] Urine Blood Urine WBC (Auto) Vancomycin Trough Crossmatch 02/01/22 02/01/22 02/01/22 18:23 18:53 19:26 WBC RBC Hgb Hct MCV MCH RDW Plt Count Seg Neuts % (Manual) Lymphocytes % (Manual) Nucleated RBC % Seg Neutrophils # Man Lymphocytes # (Manual) Percent Retic Fibrinogen ABG pH 7.331 L POC ABG pO2 ABG pO2 121.4 H ABG HCO3 ABG O2 Saturation ABG Base Excess -4.9 L ABG Hemoglobin 8.4 L Oxyhemoglobin Carboxyhemoglobin Sodium Potassium Chloride Carbon Dioxide BUN Creatinine Glucose POC Glucose 350 H 260 H Hemoglobin A1c Lactic Acid Calcium Phosphorus Magnesium Direct Bilirubin AST ALT Alkaline Phosphatase Lactate Dehydrogenase Total Protein Albumin Ur Specific [place] Urine Blood Urine WBC (Auto) Vancomycin Trough Crossmatch 02/01/22 02/01/22 02/01/22 20:20 21:38 22:41 WBC RBC Hgb Hct MCV MCH RDW Plt Count Seg Neuts % (Manual) Lymphocytes % (Manual) Nucleated RBC % Seg Neutrophils # Man Lymphocytes # (Manual) Percent Retic Fibrinogen ABG pH POC ABG pO2 ABG pO2 ABG HCO3 ABG O2 Saturation ABG Base Excess ABG Hemoglobin Oxyhemoglobin Carboxyhemoglobin Sodium Potassium Chloride Carbon Dioxide BUN Creatinine Glucose POC Glucose 266 H 195 H 150 H Hemoglobin A1c Lactic Acid Calcium Phosphorus Magnesium Direct Bilirubin AST ALT Alkaline Phosphatase Lactate Dehydrogenase Total Protein Albumin Ur Specific [place] Urine Blood Urine WBC (Auto) Vancomycin Trough Crossmatch 02/01/22 02/02/22 02/02/22 23:39 00:25 00:25 WBC RBC Hgb Hct MCV MCH RDW Plt Count Seg Neuts % (Manual) Lymphocytes % (Manual) Nucleated RBC % Seg Neutrophils # Man Lymphocytes # (Manual) Percent Retic Fibrinogen ABG pH POC ABG pO2 ABG pO2 ABG HCO3 ABG O2 Saturation ABG Base Excess ABG Hemoglobin Oxyhemoglobin Carboxyhemoglobin Sodium 156 H D Potassium 3.0 L Chloride 114.2 H Carbon Dioxide BUN Creatinine 0.5 L Glucose 63 L POC Glucose 125 H Hemoglobin A1c Lactic Acid 7.10 H* Calcium 8.1 L Phosphorus Magnesium Direct Bilirubin AST ALT Alkaline Phosphatase Lactate Dehydrogenase Total Protein Albumin Ur Specific [place] Urine Blood Urine WBC (Auto) Vancomycin Trough Crossmatch 02/02/22 02/02/22 02/02/22 04:00 04:00 04:35 WBC 1.4 L* RBC Hgb 8.5 L Hct 26.8 L D MCV 57 L MCH 18 L RDW 19.0 H Plt Count 129 L Seg Neuts % (Manual) 33.0 L Lymphocytes % (Manual) 57.0 H Nucleated RBC % Seg Neutrophils # Man 0.5 L Lymphocytes # (Manual) 0.8 L Percent Retic Fibrinogen ABG pH POC ABG pO2 ABG pO2 ABG HCO3 ABG O2 Saturation ABG Base Excess ABG Hemoglobin Oxyhemoglobin Carboxyhemoglobin Sodium 155 H Potassium Chloride 113.1 H Carbon Dioxide BUN Creatinine Glucose 159 H POC Glucose Hemoglobin A1c Lactic Acid 3.10 H* Calcium 7.6 L Phosphorus Magnesium Direct Bilirubin AST ALT Alkaline Phosphatase Lactate Dehydrogenase Total Protein Albumin Ur Specific [place] Urine Blood Urine WBC (Auto) Vancomycin Trough Crossmatch 02/02/22 02/02/22 02/02/22 04:37 04:49 05:43 WBC RBC Hgb Hct MCV MCH RDW Plt Count Seg Neuts % (Manual) Lymphocytes % (Manual) Nucleated RBC % Seg Neutrophils # Man Lymphocytes # (Manual) Percent Retic Fibrinogen ABG pH 7.528 H POC ABG pO2 79.9 L ABG pO2 ABG HCO3 ABG O2 Saturation ABG Base Excess ABG Hemoglobin 8.8 L Oxyhemoglobin Carboxyhemoglobin 0.2 L Sodium Potassium Chloride Carbon Dioxide BUN Creatinine Glucose POC Glucose 116 H 125 H Hemoglobin A1c Lactic Acid Calcium Phosphorus Magnesium Direct Bilirubin AST ALT Alkaline Phosphatase Lactate Dehydrogenase Total Protein Albumin Ur Specific [place] Urine Blood Urine WBC (Auto) Vancomycin Trough Crossmatch 02/02/22 02/02/22 02/02/22 06:52 09:02 09:05 WBC RBC Hgb Hct MCV MCH RDW Plt Count Seg Neuts % (Manual) Lymphocytes % (Manual) Nucleated RBC % Seg Neutrophils # Man Lymphocytes # (Manual) Percent Retic Fibrinogen ABG pH POC ABG pO2 ABG pO2 ABG HCO3 ABG O2 Saturation ABG Base Excess ABG Hemoglobin Oxyhemoglobin Carboxyhemoglobin Sodium 154 H Potassium 3.3 L Chloride 113.3 H Carbon Dioxide BUN Creatinine Glucose 35 L* POC Glucose 110 H 35 L Hemoglobin A1c Lactic Acid Calcium 7.4 L Phosphorus 1.70 L D Magnesium 2.50 H Direct Bilirubin AST ALT Alkaline Phosphatase Lactate Dehydrogenase Total Protein Albumin Ur Specific [place] Urine Blood Urine WBC (Auto) Vancomycin Trough Crossmatch 02/02/22 02/02/22 02/02/22 09:05 09:30 09:41 WBC 2.6 L RBC Hgb 8.0 L Hct 25.0 L MCV 57 L MCH 18 L RDW 18.8 H Plt Count 97 L Seg Neuts % (Manual) Lymphocytes % (Manual) 12.0 L Nucleated RBC % 10.0 H Seg Neutrophils # Man 1.7 L Lymphocytes # (Manual) 0.3 L Percent Retic Fibrinogen ABG pH POC ABG pO2 ABG pO2 ABG HCO3 ABG O2 Saturation ABG Base Excess ABG Hemoglobin Oxyhemoglobin Carboxyhemoglobin Sodium Potassium Chloride Carbon Dioxide BUN Creatinine Glucose POC Glucose 119 H Hemoglobin A1c Lactic Acid 7.10 H* Calcium Phosphorus Magnesium Direct Bilirubin AST ALT Alkaline Phosphatase Lactate Dehydrogenase Total Protein Albumin Ur Specific [place] Urine Blood Urine WBC (Auto) Vancomycin Trough Crossmatch 02/02/22 02/02/22 02/02/22 10:17 12:32 15:39 WBC RBC Hgb Hct MCV MCH RDW Plt Count Seg Neuts % (Manual) Lymphocytes % (Manual) Nucleated RBC % Seg Neutrophils # Man Lymphocytes # (Manual) Percent Retic Fibrinogen ABG pH POC ABG pO2 ABG pO2 ABG HCO3 ABG O2 Saturation ABG Base Excess ABG Hemoglobin Oxyhemoglobin Carboxyhemoglobin Sodium Potassium Chloride Carbon Dioxide BUN Creatinine Glucose POC Glucose 120 H 166 H 263 H Hemoglobin A1c Lactic Acid Calcium Phosphorus Magnesium Direct Bilirubin AST ALT Alkaline Phosphatase Lactate Dehydrogenase Total Protein Albumin Ur Specific [place] Urine Blood Urine WBC (Auto) Vancomycin Trough Crossmatch 02/02/22 02/02/22 02/02/22 17:07 17:50 Unknown WBC RBC Hgb Hct MCV MCH RDW Plt Count Seg Neuts % (Manual) Lymphocytes % (Manual) Nucleated RBC % Seg Neutrophils # Man Lymphocytes # (Manual) Percent Retic Fibrinogen ABG pH 7.457 H POC ABG pO2 ABG pO2 71.0 L ABG HCO3 ABG O2 Saturation 94.5 L ABG Base Excess ABG Hemoglobin 9.2 L Oxyhemoglobin 93.0 L Carboxyhemoglobin Sodium 147 H Potassium 5.5 H D Chloride 110.8 H Carbon Dioxide BUN Creatinine Glucose 271 H POC Glucose 231 H Hemoglobin A1c Lactic Acid Calcium 7.3 L Phosphorus Magnesium Direct Bilirubin AST ALT Alkaline Phosphatase Lactate Dehydrogenase Total Protein Albumin Ur Specific [place] Urine Blood Urine WBC (Auto) Vancomycin Trough Crossmatch 02/03/22 02/03/22 02/03/22 00:08 04:00 04:00 WBC 3.7 L RBC Hgb 8.0 L Hct 25.5 L MCV 58 L MCH 18 L RDW 18.2 H Plt Count 79 L Seg Neuts % (Manual) 76.0 H Lymphocytes % (Manual) 2.0 L Nucleated RBC % 4.0 H Seg Neutrophils # Man Lymphocytes # (Manual) 0.1 L Percent Retic Fibrinogen ABG pH POC ABG pO2 ABG pO2 ABG HCO3 ABG O2 Saturation ABG Base Excess ABG Hemoglobin Oxyhemoglobin Carboxyhemoglobin Sodium 147 H Potassium Chloride 112.9 H Carbon Dioxide BUN Creatinine Glucose 281 H POC Glucose 231 H Hemoglobin A1c Lactic Acid Calcium 7.8 L Phosphorus Magnesium Direct Bilirubin 0.3 H AST 172 H ALT 89 H Alkaline Phosphatase Lactate Dehydrogenase Total Protein 4.7 L D Albumin 2.0 L Ur Specific [place] Urine Blood Urine WBC (Auto) Vancomycin Trough Crossmatch 02/03/22 02/03/22 02/03/22 04:20 05:26 11:38 WBC RBC Hgb Hct MCV MCH RDW Plt Count Seg Neuts % (Manual) Lymphocytes % (Manual) Nucleated RBC % Seg Neutrophils # Man Lymphocytes # (Manual) Percent Retic Fibrinogen ABG pH POC ABG pO2 ABG pO2 75.5 L ABG HCO3 ABG O2 Saturation ABG Base Excess -2.8 L ABG Hemoglobin 8.1 L Oxyhemoglobin 94.6 L Carboxyhemoglobin Sodium Potassium Chloride Carbon Dioxide BUN Creatinine Glucose POC Glucose 247 H 196 H Hemoglobin A1c Lactic Acid Calcium Phosphorus Magnesium Direct Bilirubin AST ALT Alkaline Phosphatase Lactate Dehydrogenase Total Protein Albumin Ur Specific [place] Urine Blood Urine WBC (Auto) Vancomycin Trough Crossmatch 02/03/22 02/04/22 02/04/22 16:27 02:44 03:18 WBC 1.2 L* RBC Hgb 8.2 L Hct 26.6 L MCV 59 L MCH 18 L RDW 19.6 H Plt Count 50 L Seg Neuts % (Manual) Lymphocytes % (Manual) Nucleated RBC % Seg Neutrophils # Man Lymphocytes # (Manual) Percent Retic Fibrinogen ABG pH POC ABG pO2 ABG pO2 ABG HCO3 ABG O2 Saturation ABG Base Excess ABG Hemoglobin Oxyhemoglobin Carboxyhemoglobin Sodium 148 H Potassium Chloride 116.3 H Carbon Dioxide BUN Creatinine Glucose 139 H POC Glucose 119 H Hemoglobin A1c Lactic Acid Calcium Phosphorus Magnesium Direct Bilirubin 0.3 H AST 92 H ALT 76 H Alkaline Phosphatase Lactate Dehydrogenase Total Protein 4.7 L Albumin 1.6 L Ur Specific [place] Urine Blood Urine WBC (Auto) Vancomycin Trough Crossmatch 02/04/22 02/04/22 02/04/22 05:15 05:26 09:15 WBC RBC Hgb Hct MCV MCH RDW Plt Count Seg Neuts % (Manual) Lymphocytes % (Manual) Nucleated RBC % Seg Neutrophils # Man Lymphocytes # (Manual) Percent Retic Fibrinogen ABG pH 7.311 L POC ABG pO2 ABG pO2 50.1 L ABG HCO3 ABG O2 Saturation 83.6 L ABG Base Excess ABG Hemoglobin 8.6 L Oxyhemoglobin 81.9 L Carboxyhemoglobin Sodium Potassium Chloride Carbon Dioxide BUN Creatinine Glucose POC Glucose 115 H Hemoglobin A1c Lactic Acid Calcium Phosphorus Magnesium Direct Bilirubin AST ALT Alkaline Phosphatase Lactate Dehydrogenase Total Protein Albumin Ur Specific [place] Urine Blood Large A Urine WBC (Auto) 12.0 H Vancomycin Trough Crossmatch 02/04/22 02/04/22 02/04/22 11:17 14:37 17:04 WBC RBC Hgb Hct MCV MCH RDW Plt Count Seg Neuts % (Manual) Lymphocytes % (Manual) Nucleated RBC % Seg Neutrophils # Man Lymphocytes # (Manual) Percent Retic Fibrinogen ABG pH POC ABG pO2 ABG pO2 ABG HCO3 ABG O2 Saturation ABG Base Excess ABG Hemoglobin Oxyhemoglobin Carboxyhemoglobin Sodium Potassium Chloride Carbon Dioxide BUN Creatinine Glucose POC Glucose 166 H 109 H Hemoglobin A1c Lactic Acid Calcium Phosphorus Magnesium Direct Bilirubin AST 87 H ALT 75 H Alkaline Phosphatase 137 H Lactate Dehydrogenase Total Protein 4.6 L Albumin 1.7 L Ur Specific [place] Urine Blood Urine WBC (Auto) Vancomycin Trough Crossmatch 02/04/22 02/04/22 02/04/22 20:15 20:22 20:22 WBC RBC Hgb 7.1 L Hct 22.6 L MCV MCH RDW Plt Count Seg Neuts % (Manual) Lymphocytes % (Manual) Nucleated RBC % Seg Neutrophils # Man Lymphocytes # (Manual) Percent Retic Fibrinogen ABG pH 7.292 L POC ABG pO2 ABG pO2 40.3 L ABG HCO3 ABG O2 Saturation 72.1 L ABG Base Excess -2.2 L ABG Hemoglobin 7.0 L Oxyhemoglobin 70.5 L Carboxyhemoglobin Sodium Potassium Chloride Carbon Dioxide BUN Creatinine Glucose POC Glucose Hemoglobin A1c Lactic Acid 3.00 H* Calcium Phosphorus Magnesium Direct Bilirubin AST ALT Alkaline Phosphatase Lactate Dehydrogenase Total Protein Albumin Ur Specific [place] Urine Blood Urine WBC (Auto) Vancomycin Trough Crossmatch 02/04/22 02/04/22 02/05/22 20:22 23:03 04:40 WBC 3.1 L RBC Hgb 9.6 L Hct 30.1 L D MCV 64 L MCH 20 L RDW 26.9 H Plt Count 50 L Seg Neuts % (Manual) Lymphocytes % (Manual) Nucleated RBC % Seg Neutrophils # Man Lymphocytes # (Manual) Percent Retic Fibrinogen ABG pH POC ABG pO2 ABG pO2 ABG HCO3 ABG O2 Saturation ABG Base Excess ABG Hemoglobin Oxyhemoglobin Carboxyhemoglobin Sodium Potassium Chloride Carbon Dioxide BUN Creatinine Glucose POC Glucose 171 H Hemoglobin A1c Lactic Acid Calcium Phosphorus Magnesium Direct Bilirubin AST ALT Alkaline Phosphatase Lactate Dehydrogenase Total Protein Albumin Ur Specific [place] Urine Blood Urine WBC (Auto) Vancomycin Trough Crossmatch See Detail 02/05/22 02/05/22 02/05/22 04:40 04:40 04:43 WBC RBC Hgb Hct MCV MCH RDW Plt Count Seg Neuts % (Manual) Lymphocytes % (Manual) Nucleated RBC % Seg Neutrophils # Man Lymphocytes # (Manual) Percent Retic Fibrinogen ABG pH POC ABG pO2 ABG pO2 ABG HCO3 ABG O2 Saturation ABG Base Excess ABG Hemoglobin Oxyhemoglobin Carboxyhemoglobin Sodium 148 H Potassium Chloride 113.2 H Carbon Dioxide BUN 21 H Creatinine Glucose 155 H POC Glucose 156 H Hemoglobin A1c Lactic Acid Calcium Phosphorus Magnesium Direct Bilirubin AST 84 H ALT 67 H Alkaline Phosphatase 152 H Lactate Dehydrogenase 879 H Total Protein 5.0 L Albumin 1.8 L Ur Specific [place] Urine Blood Urine WBC (Auto) Vancomycin Trough Crossmatch 02/05/22 02/05/22 02/05/22 08:10 08:48 08:48 WBC RBC Hgb Hct MCV MCH RDW Plt Count Seg Neuts % (Manual) Lymphocytes % (Manual) Nucleated RBC % Seg Neutrophils # Man Lymphocytes # (Manual) Percent Retic Fibrinogen 795 H ABG pH POC ABG pO2 ABG pO2 57.1 L ABG HCO3 27.8 H ABG O2 Saturation 90.8 L ABG Base Excess ABG Hemoglobin 8.5 L Oxyhemoglobin 88.9 L Carboxyhemoglobin Sodium Potassium Chloride Carbon Dioxide BUN Creatinine Glucose POC Glucose Hemoglobin A1c Lactic Acid 2.90 H* Calcium Phosphorus Magnesium Direct Bilirubin AST ALT Alkaline Phosphatase Lactate Dehydrogenase Total Protein Albumin Ur Specific [place] Urine Blood Urine WBC (Auto) Vancomycin Trough Crossmatch 02/05/22 02/05/22 02/05/22 11:46 17:45 Unknown WBC RBC Hgb Hct MCV MCH RDW Plt Count Seg Neuts % (Manual) Lymphocytes % (Manual) Nucleated RBC % Seg Neutrophils # Man Lymphocytes # (Manual) Percent Retic Fibrinogen ABG pH POC ABG pO2 ABG pO2 ABG HCO3 ABG O2 Saturation ABG Base Excess ABG Hemoglobin Oxyhemoglobin Carboxyhemoglobin Sodium Potassium Chloride Carbon Dioxide BUN Creatinine Glucose POC Glucose 61 L 133 H Hemoglobin A1c Lactic Acid Calcium Phosphorus Magnesium Direct Bilirubin AST ALT Alkaline Phosphatase Lactate Dehydrogenase Total Protein Albumin Ur Specific [place] Urine Blood Urine WBC (Auto) Vancomycin Trough 28.6 H Crossmatch 02/05/22 02/06/22 02/06/22 23:59 04:33 04:33 WBC RBC Hgb 8.4 L Hct 26.1 L MCV 64 L MCH 21 L RDW 26.2 H Plt Count 38 L Seg Neuts % (Manual) Lymphocytes % (Manual) Nucleated RBC % Seg Neutrophils # Man Lymphocytes # (Manual) Percent Retic Fibrinogen ABG pH POC ABG pO2 ABG pO2 ABG HCO3 ABG O2 Saturation ABG Base Excess ABG Hemoglobin Oxyhemoglobin Carboxyhemoglobin Sodium 146 H Potassium 3.4 L Chloride Carbon Dioxide 31 H BUN 21 H Creatinine Glucose 230 H POC Glucose 275 H Hemoglobin A1c Lactic Acid Calcium Phosphorus Magnesium Direct Bilirubin AST 70 H ALT Alkaline Phosphatase 197 H Lactate Dehydrogenase Total Protein 5.3 L Albumin 2.4 L Ur Specific [place] Urine Blood Urine WBC (Auto) Vancomycin Trough Crossmatch 02/06/22 02/06/22 02/06/22 04:33 04:50 06:19 WBC RBC Hgb Hct MCV MCH RDW Plt Count Seg Neuts % (Manual) Lymphocytes % (Manual) Nucleated RBC % Seg Neutrophils # Man Lymphocytes # (Manual) Percent Retic Fibrinogen ABG pH 7.330 L POC ABG pO2 ABG pO2 57.9 L ABG HCO3 31.3 H ABG O2 Saturation 89.6 L ABG Base Excess 4.5 H ABG Hemoglobin 8.1 L Oxyhemoglobin 87.7 L Carboxyhemoglobin Sodium Potassium Chloride Carbon Dioxide BUN Creatinine Glucose POC Glucose 219 H Hemoglobin A1c Lactic Acid 3.10 H* Calcium Phosphorus Magnesium Direct Bilirubin AST ALT Alkaline Phosphatase Lactate Dehydrogenase Total Protein Albumin Ur Specific [place] Urine Blood Urine WBC (Auto) Vancomycin Trough Crossmatch 02/06/22 02/06/22 02/06/22 11:24 11:50 12:26 WBC RBC Hgb Hct MCV MCH RDW Plt Count Seg Neuts % (Manual) Lymphocytes % (Manual) Nucleated RBC % Seg Neutrophils # Man Lymphocytes # (Manual) Percent Retic Fibrinogen ABG pH 7.298 L POC ABG pO2 ABG pO2 43.3 L ABG HCO3 36.7 H ABG O2 Saturation 74.9 L ABG Base Excess 8.8 H ABG Hemoglobin 8.2 L Oxyhemoglobin 73.3 L Carboxyhemoglobin Sodium Potassium Chloride Carbon Dioxide BUN Creatinine Glucose POC Glucose 118 H Hemoglobin A1c Lactic Acid 2.50 H* Calcium Phosphorus Magnesium Direct Bilirubin AST ALT Alkaline Phosphatase Lactate Dehydrogenase Total Protein Albumin Ur Specific [place] Urine Blood Urine WBC (Auto) Vancomycin Trough Crossmatch 02/06/22 02/06/22 02/07/22 17:41 21:41 00:17 WBC RBC Hgb Hct MCV MCH RDW Plt Count Seg Neuts % (Manual) Lymphocytes % (Manual) Nucleated RBC % Seg Neutrophils # Man Lymphocytes # (Manual) Percent Retic Fibrinogen ABG pH POC ABG pO2 ABG pO2 ABG HCO3 ABG O2 Saturation ABG Base Excess ABG Hemoglobin Oxyhemoglobin Carboxyhemoglobin Sodium Potassium Chloride Carbon Dioxide BUN Creatinine Glucose POC Glucose 208 H 282 H 342 H Hemoglobin A1c Lactic Acid Calcium Phosphorus Magnesium Direct Bilirubin AST ALT Alkaline Phosphatase Lactate Dehydrogenase Total Protein Albumin Ur Specific [place] Urine Blood Urine WBC (Auto) Vancomycin Trough Crossmatch 02/07/22 02/07/22 02/07/22 00:19 04:12 04:12 WBC 13.1 H RBC Hgb 8.5 L Hct 26.4 L MCV 62 L MCH 20 L RDW 24.2 H Plt Count 57 L Seg Neuts % (Manual) Lymphocytes % (Manual) Nucleated RBC % Seg Neutrophils # Man Lymphocytes # (Manual) Percent Retic Fibrinogen ABG pH POC ABG pO2 ABG pO2 ABG HCO3 ABG O2 Saturation ABG Base Excess ABG Hemoglobin Oxyhemoglobin Carboxyhemoglobin Sodium 149 H Potassium 3.1 L Chloride Carbon Dioxide 38 H D BUN 23 H Creatinine Glucose 298 H POC Glucose 209 H Hemoglobin A1c Lactic Acid Calcium Phosphorus 2.10 L Magnesium Direct Bilirubin AST 49 H ALT Alkaline Phosphatase 248 H Lactate Dehydrogenase Total Protein 5.4 L Albumin 2.7 L Ur Specific [place] Urine Blood Urine WBC (Auto) Vancomycin Trough Crossmatch 02/07/22 02/07/22 02/07/22 04:40 07:09 07:13 WBC RBC Hgb Hct MCV MCH RDW Plt Count Seg Neuts % (Manual) Lymphocytes % (Manual) Nucleated RBC % Seg Neutrophils # Man Lymphocytes # (Manual) Percent Retic Fibrinogen ABG pH 7.474 H POC ABG pO2 ABG pO2 62.1 L ABG HCO3 39.1 H ABG O2 Saturation 94.7 L ABG Base Excess 13.9 H ABG Hemoglobin 8.6 L Oxyhemoglobin 93.0 L Carboxyhemoglobin Sodium Potassium Chloride Carbon Dioxide BUN Creatinine Glucose POC Glucose 399 H 418 H Hemoglobin A1c Lactic Acid Calcium Phosphorus Magnesium Direct Bilirubin AST ALT Alkaline Phosphatase Lactate Dehydrogenase Total Protein Albumin Ur Specific [place] Urine Blood Urine WBC (Auto) Vancomycin Trough Crossmatch 02/07/22 02/07/22 02/07/22 12:20 17:29 23:37 WBC RBC Hgb Hct MCV MCH RDW Plt Count Seg Neuts % (Manual) Lymphocytes % (Manual) Nucleated RBC % Seg Neutrophils # Man Lymphocytes # (Manual) Percent Retic Fibrinogen ABG pH POC ABG pO2 ABG pO2 ABG HCO3 ABG O2 Saturation ABG Base Excess ABG Hemoglobin Oxyhemoglobin Carboxyhemoglobin Sodium Potassium Chloride Carbon Dioxide BUN Creatinine Glucose POC Glucose 229 H 159 H 236 H Hemoglobin A1c Lactic Acid Calcium Phosphorus Magnesium Direct Bilirubin AST ALT Alkaline Phosphatase Lactate Dehydrogenase Total Protein Albumin Ur Specific [place] Urine Blood Urine WBC (Auto) Vancomycin Trough Crossmatch 02/08/22 02/08/22 02/08/22 03:55 03:55 05:20 WBC 14.7 H RBC Hgb 7.7 L Hct 25.0 L MCV 64 L MCH 20 L RDW 25.1 H Plt Count 79 L Seg Neuts % (Manual) Lymphocytes % (Manual) Nucleated RBC % Seg Neutrophils # Man Lymphocytes # (Manual) Percent Retic 0.65 L Fibrinogen ABG pH POC ABG pO2 ABG pO2 ABG HCO3 ABG O2 Saturation ABG Base Excess ABG Hemoglobin Oxyhemoglobin Carboxyhemoglobin Sodium Potassium 3.0 L Chloride 93.9 L Carbon Dioxide 44 H* BUN 30 H Creatinine Glucose 229 H POC Glucose 235 H Hemoglobin A1c Lactic Acid Calcium 8.3 L Phosphorus 2.30 L Magnesium Direct Bilirubin AST 77 H ALT Alkaline Phosphatase 246 H Lactate Dehydrogenase Total Protein 5.2 L Albumin 2.7 L Ur Specific [place] Urine Blood Urine WBC (Auto) Vancomycin Trough Crossmatch 02/08/22 02/08/22 02/08/22 11:47 16:36 21:41 WBC RBC Hgb Hct MCV MCH RDW Plt Count Seg Neuts % (Manual) Lymphocytes % (Manual) Nucleated RBC % Seg Neutrophils # Man Lymphocytes # (Manual) Percent Retic Fibrinogen ABG pH POC ABG pO2 ABG pO2 ABG HCO3 ABG O2 Saturation ABG Base Excess ABG Hemoglobin Oxyhemoglobin Carboxyhemoglobin Sodium Potassium Chloride Carbon Dioxide BUN Creatinine Glucose POC Glucose 193 H 205 H 292 H Hemoglobin A1c Lactic Acid Calcium Phosphorus Magnesium Direct Bilirubin AST ALT Alkaline Phosphatase Lactate Dehydrogenase Total Protein Albumin Ur Specific [place] Urine Blood Urine WBC (Auto) Vancomycin Trough Crossmatch 02/08/22 02/08/22 02/09/22 Unknown 23:59 04:00 WBC 16.4 H RBC Hgb 8.2 L Hct 26.3 L MCV 63 L MCH 20 L RDW 23.9 H Plt Count 128 L Seg Neuts % (Manual) Lymphocytes % (Manual) Nucleated RBC % Seg Neutrophils # Man Lymphocytes # (Manual) Percent Retic Fibrinogen ABG pH 7.488 H POC ABG pO2 ABG pO2 63.1 L ABG HCO3 45.5 H ABG O2 Saturation 94.1 L ABG Base Excess 19.8 H ABG Hemoglobin 8.7 L Oxyhemoglobin 92.4 L Carboxyhemoglobin Sodium Potassium Chloride Carbon Dioxide BUN Creatinine Glucose POC Glucose 342 H Hemoglobin A1c Lactic Acid Calcium Phosphorus Magnesium Direct Bilirubin AST ALT Alkaline Phosphatase Lactate Dehydrogenase Total Protein Albumin Ur Specific [place] Urine Blood Urine WBC (Auto) Vancomycin Trough Crossmatch 02/09/22 02/09/22 02/09/22 04:00 05:30 06:07 WBC RBC Hgb Hct MCV MCH RDW Plt Count Seg Neuts % (Manual) Lymphocytes % (Manual) Nucleated RBC % Seg Neutrophils # Man Lymphocytes # (Manual) Percent Retic Fibrinogen ABG pH 7.539 H POC ABG pO2 ABG pO2 210.4 H ABG HCO3 42.4 H ABG O2 Saturation 99.3 H ABG Base Excess 18.0 H ABG Hemoglobin 7.8 L Oxyhemoglobin Carboxyhemoglobin Sodium 149 H Potassium 3.1 L Chloride 97.6 L Carbon Dioxide 42 H* BUN 27 H Creatinine Glucose 257 H POC Glucose 260 H Hemoglobin A1c Lactic Acid Calcium 8.2 L Phosphorus 1.90 L Magnesium Direct Bilirubin AST 81 H ALT Alkaline Phosphatase 229 H Lactate Dehydrogenase Total Protein 5.4 L Albumin 2.6 L Ur Specific [place] Urine Blood Urine WBC (Auto) Vancomycin Trough Crossmatch 02/09/22 02/09/22 02/09/22 11:16 17:33 20:25 WBC RBC Hgb Hct MCV MCH RDW Plt Count Seg Neuts % (Manual) Lymphocytes % (Manual) Nucleated RBC % Seg Neutrophils # Man Lymphocytes # (Manual) Percent Retic Fibrinogen ABG pH 7.504 H POC ABG pO2 ABG pO2 79.7 L ABG HCO3 44.2 H ABG O2 Saturation ABG Base Excess 19.2 H ABG Hemoglobin 7.0 L Oxyhemoglobin Carboxyhemoglobin Sodium Potassium Chloride Carbon Dioxide BUN Creatinine Glucose POC Glucose 184 H 123 H Hemoglobin A1c Lactic Acid Calcium Phosphorus Magnesium Direct Bilirubin AST ALT Alkaline Phosphatase Lactate Dehydrogenase Total Protein Albumin Ur Specific [place] Urine Blood Urine WBC (Auto) Vancomycin Trough Crossmatch 02/09/22 02/09/22 02/10/22 21:16 23:13 03:40 WBC 17.2 H RBC Hgb 7.9 L Hct 25.3 L MCV 63 L MCH 20 L RDW 20.7 H Plt Count Seg Neuts % (Manual) Lymphocytes % (Manual) Nucleated RBC % Seg Neutrophils # Man Lymphocytes # (Manual) Percent Retic Fibrinogen ABG pH POC ABG pO2 ABG pO2 ABG HCO3 ABG O2 Saturation ABG Base Excess ABG Hemoglobin Oxyhemoglobin Carboxyhemoglobin Sodium Potassium Chloride Carbon Dioxide BUN Creatinine Glucose POC Glucose 186 H 276 H Hemoglobin A1c Lactic Acid Calcium Phosphorus Magnesium Direct Bilirubin AST ALT Alkaline Phosphatase Lactate Dehydrogenase Total Protein Albumin Ur Specific [place] Urine Blood Urine WBC (Auto) Vancomycin Trough Crossmatch 02/10/22 02/10/22 02/10/22 03:40 04:17 04:17 WBC RBC Hgb Hct MCV MCH RDW Plt Count Seg Neuts % (Manual) Lymphocytes % (Manual) Nucleated RBC % Seg Neutrophils # Man Lymphocytes # (Manual) Percent Retic Fibrinogen ABG pH 7.468 H POC ABG pO2 ABG pO2 124.2 H ABG HCO3 42.1 H ABG O2 Saturation ABG Base Excess 16.6 H ABG Hemoglobin 7.6 L Oxyhemoglobin Carboxyhemoglobin Sodium 149 H Potassium 3.2 L Chloride Carbon Dioxide 38 H BUN 26 H Creatinine 0.5 L Glucose 188 H POC Glucose 189 H Hemoglobin A1c Lactic Acid Calcium 8.3 L Phosphorus 2.10 L Magnesium Direct Bilirubin AST 120 H ALT 80 H Alkaline Phosphatase 207 H Lactate Dehydrogenase Total Protein 5.3 L Albumin 2.4 L Ur Specific [place] Urine Blood Urine WBC (Auto) Vancomycin Trough Crossmatch 02/10/22 11:46 WBC RBC Hgb Hct MCV MCH RDW Plt Count Seg Neuts % (Manual) Lymphocytes % (Manual) Nucleated RBC % Seg Neutrophils # Man Lymphocytes # (Manual) Percent Retic Fibrinogen ABG pH POC ABG pO2 ABG pO2 ABG HCO3 ABG O2 Saturation ABG Base Excess ABG Hemoglobin Oxyhemoglobin Carboxyhemoglobin Sodium Potassium Chloride Carbon Dioxide BUN Creatinine Glucose POC Glucose 189 H Hemoglobin A1c Lactic Acid Calcium Phosphorus Magnesium Direct Bilirubin AST ALT Alkaline Phosphatase Lactate Dehydrogenase Total Protein Albumin Ur Specific [place] Urine Blood Urine WBC (Auto) Vancomycin Trough Crossmatch Chest x-ray: report reviewed, image reviewed
--- NOTE | 2022-02-10 14:09 | Progress Note ---
<NICOLA TREVINO - Last Filed: 02/10/22 19:38> Assessment and Plan Assessment and plan: This is a 61-year-old female with known past medical history of DM, dementia, HLD, and HTN initially admitted for Hypoglycemia then went into DKA and was transferred to the ICU where she PEA arrested on 02/01. Patient is now with septic shock and on ventilatory support. Hospital Course to Date: 02/01: patient was transferred to ICU as lab work was consistent with DKA and started on insulin drip. Central line placed for IV access. Patient was given bicarb push and started on a bicarb drip. She was also started on Rocephin due to UTI however antibiotics are broadened to cefepime and vancomycin. 02/02: s/p cardiac arrest on 02/01. Bicarbonate drip discontinued. Pancytopenia noted, anion gap closed and transitioned to SSI and long-acting insulin. Patient was having hypoglycemia this morning which has been corrected now. Started on tube feeding. Potassium and phosphorus will be repleted. Hype rnatremia noted and FWF started with tube feedings. COVID-19 PCR pending. Venous Doppler ultrasound pending. Neurology and cardiology consulted. Echocardiogram pending. Patient currently on Levophed and sedated with propofol. Fentanyl added. Given 1 LR bolus this morning for hypotension. 02/03: LR bolus x2, remains on levophed, tachycardia and EKG completed which shows tachycardia. Increase in FiO2, Will culture with next temp spike. Will give 1 gm Calcium Gluconate. 02/04: S/p Bronch this am by [facility] at the bedside. Patient still spiking high temp despite broad spectrum IV Abx. Remains on high pressors with worsen neutropenia and thrombocytopenia. Will panculture this am, antifungal culture was also ordered. Continue current empiric IV Abx for now, awaiting sensitivity. Will also consult ID for further eval. Possible Hematology consult for pancytopenia per CCM. Possible family meeting with [facility] this week, case management to arrange. 02/05: Back up on full support on the vent. CXR with worsen bilateral opacities, S/p X1 dose of IV lasix. Patient also received 1units of PRBCs overnight due to anemia, H&H stable this am and no s/s of any active bleeding. Patient remains pancytopenic, still febrile. IV abx changed to Merrem and Vanc per ID, hematology consult pending. ST with episodes of SVT this am, plan for amiodarone gtt per Cardio. Off pressors this am. BP remains boderline, 25% IV Albumin and X1 dose of additional IV lasix gain today per CCM. Continue FWF for hypernatremi a. Lantus adjusted due to hypoglycemia. Possible family meeting tomorrow with [facility]. 8/3: Decompensated this am, sudden drop in SPO2 in the 80s, HR in the 50s, and MAP in the 40s. Back on 2 pressors, on 100% FIO2 and 12 of peep. Stat ABG pending, 1amp Bcarb given, stress dose steroids initiated. This an CXR reviewed with worsen opacities from prior. Patient remains on IV abx per ID. Hematology recommendations appreciated. Event discussed with [facility] who agreed with current intervention. Patient's daughter and sister were notified via phone. Current events, patient's diagnosis, overal condition, and poor prognosis were thoroughly discussed. GOC was also addressed with patient's daughter and sister, they voiced that if patient was able to speak for herself she would want all lifesaving measures, including CPR and medications if her heart stop. All questions and concerns were addressed at this time. They verbalized understanding and agreed with current care plan. Patient remains a FULL code status at This time. 84: Responded well to IV lasix and albumin overnight. CXR with some improvement today. IV lasix and albumin gain today per CCM. With increased WOB and tachpnea this am, low dose propofol added for RASS goal of 0 to -2. Wean FIO2 as tolerated for SPO2 goal above 92%. Worsen hyperglycemia this am, most like due to IV steroids, insulin therapy adjusted. Monitor and replace electrolytes as needed. Family meeting today with [facility], patient remains a FULL code status. 85: Tolerating gentle diurese. Patient missed overnight IV lasix/albumin dose, will repeat another dose this morning. Continue to wean Fio2 as tolerated. Remains off pressors, VSS. Concern for BLE ischemia probably due to hypoperfusion vs pressor use. Will check BLE arterial doppler to r/o occlusion. Possible Vascular Surgery consult dependent on doppler result. Lantus adjusted for persisting hyperglycemia. Electrolytes repleted, monitor and replace electrolytes as needed. 86: This am ABG and CXR with some improvement this am. Down to 55% Fio2 this am. Hypotensive overnight required short duration of Levophed gtt, pressor is off this am. Will hold on IV diuretic today. Continue to monitor for now. Electrolytes repleted, monitor and replace electrolytes as needed. Prior history of psych issues, seroquel added BID. BLE doppler pending. 02/10: Remains stable on the vent. Down to 40% Fio2 and peep of 10 this am, SPO2 above 95%, CXR is unchanged. Continue vent wean as tolerated. Remains on IV steroid, will start tapering tomorrow. Per CCM, plan is to optimize patient on the vent for possible trach and PEG. FWF increased for persistent hypernatremia. K and phos repleted. Continue to monitor and replace electrolytes as needed. Assessment and Plan #Septic Shock #Supraventricular Tachycardia(SVT) #S/p PEA Arrest with ROSC #H/o HTN, HLD - Coded in the ICU on 02/01, PEA arrest - ROSC achieved post 1amp of bcarb and EPI - With tachycardia, persistent fevers, s/p multiple pressors - off pressors this am. ST on the monitor, VSS - On Stress dose steroids, will start tapering tomorrow - Echo reviewed, EF 55-60%, see report for detail - Cardiology consulted, appreciated recommendations - amiodarone gtt transitioned to PO per Cardio - Continue blood pressure monitor per protocol - Pressor on standby for MAP less than 65 #Acute Hypoxic Respiratory Failure #ARDS #Bilateral Pneumonia - Intubated during code on 02/01 - This am CXR with worsening bilateral airspace opacities - 02/04 s/p Bronchoscopy at the bedside by [facility]- BAL sent to lab - Vent setting: PRVC-40%,10,12,350 - ABG and this am CXR with some improvement - s/p albumin and IV lasix - CCM consulted, appreciate recommendations - Continue IV Abx, IV steroids, and Nebs per CCM - Continue vent wean per CCM - VAP bundle addressed - Aspiration precaution HOB above 30 - Daily ABG and CXR - Continue SPO2 monitoring for SPO2 goal above 92% - Per CCM, plan is to optimize patient on the vent for possible trach and PEG #Septic Shock #Bilateral Pneumonia #Urinary Tract Infection(UTI) - With high fevers, neutropenia, thrombocytopenia, tachycardia, and hypotensive on multiple pressors - UA consistent with pyuria, Blood cultures with NGTD, Sputum culture with Klebsiella Pneumoniae - BLE doppler negative for DVT - repeat cultures with NGTD - ID consulted, appreciate recommendations - Leukocytosis most likely due to IV Steroids - Continue IV Abx per ID- [id number] until 02/11 per ID - f/u on culture - Monitor CBC and temperature curve #Pancytopenia-improved #Microcytic Anemia - Significant drop of WBCs and Plt count from admit - Probably due to septic shock, on IV Abx per ID - S/p 1unit PRBCs - No s/s of active bleeding, H&H stable this am - Continue to trend CBC - Hold AC for now - Hematology consulted, appreciate recommendations #Acute Metabolic Encephalopathy #h/o Dementia and Psych Issues - Intubated and Sedated- on fentanyl - Titrate sedations for RASS goal of 0 to -2 - Seroquel added BID - Daily SAT and SBT per CCM - Avoid benzodiazepine to reduce the possibility of delirium - PRN Analgesia for CPOT greater than 3 - Maintenance of sleep-wake cycle - Neurology consulted, appreciate recommendations #Hypokalemia #Hypernatremia - Low K most likely 2/2 IV Lasix - Eletrolytes repleted - FWF Q4hrs for Hypernatremia - Strict intake and output - Avoid nephrotoxic medications - Monitor and replace electrolytes as needed #Concern for BLE Ischemia - probably due to hypoperfusion vs pressor use. - Will check BLE arterial doppler to r/o occlusion. - Possible Vascular Surgery consult dependent on doppler result. #Type 2 Diabetes mellitus #S/p DKA - initially presented with hypoglycemia then went into DKA - s/p DKA protocol - Hemoglobin A1c 11.1 - Now with hyperglycemia, most likely due to IV steroids - Continue BG and SSI Q6hrs and Lantus qHs- increased - Avoid Hypoglycemia #GI/DVT Prophylaxis - PPI- Pepcid - SCDs to bilateral lower extremities while in bed #Advance Care Planning - Patient's diagnosis, overal condition, and poor prognosis were thoroughly discussed. GOC was also addressed with patient's daughter and sister, they voiced that if patient was able to speak for herself she would want all lifesaving measures, including CPR and medications if her heart stop. All questions and concerns were addressed at this time. They verbalized understanding and agreed with current care plan. Patient remains a FULL code status at This time. The high probability of a clinically significant, sudden or life threatening deterioration of the [Multiple] system(s) required my full and direct attention, intervention and personal management. The aggregate critical care time was [60] minutes. This time is in addition to time spent performing reported procedures but includes the following: [x] Data Review and interpretation [x] Patient assessment and monitoring of vital signs [x] Documentation [x] Medication orders and management Disposition Plan: ICU Total Time Spent with Patient (Minutes): 60 History Interval history: Patient seen and examined at the bedside. Remains stable on the vent and on low dose fentanyl gtt, VSS. KYLAH overnight Hospitalist Physical - Physical exam Narrative exam: General appearance: Present: no acute distress, other (Remains on the vent and sedated) - EENT Eyes: Present: mydriasis (sluggish) - Respiratory Respiratory effort: Labored, other(tachypneic) Respiratory: bilateral: rhonchi, wheezing - Cardiovascular Rhythm: regular Heart Sounds: Present: S1 & S2 - Extremities Extremities: Abnormal. BLE cold to touch, ischemia. Absent pulses Extremity abnormal: edema - Peripheral Assessment Generalized Edema Type: Pitting Edema Degree: 2+ Capillary Refill: < 3 seconds Skin Temperature: Warm Peripheral Pulses: within normal limits - Abdominal General gastrointestinal: soft, non-distended, normal bowel sounds - Integumentary Integumentary: Present: warm (Weeping) - Psychiatric Psychiatric: other (Intubated and sedated) - Neurologic Neurologic: move all extremities(Non-purposeful), other (Intubated and sedated) - Allied Health Allied health notes reviewed: nursing, case management - Constitutional Vitals: Temp Pulse Resp BP Pulse Ox 99.7 F H 122 H 22 115/72 95 02/10/22 08:00 02/10/22 13:30 02/10/22 13:30 02/10/22 13:30 02/10/22 13:30 HEART Score - HEART Score Troponin: Troponin T < 0.010 ng/mL (0.00-0.029) 02/03/22 16:15 Results - Labs CBC & Chem 7: 02/10/22 03:40 02/10/22 03:40 Labs: Laboratory Last Values WBC 17.2 K/mm3 (4.5-11.0) H 02/10/22 03:40 RBC 4.03 M/mm3 (3.65-5.03) 02/10/22 03:40 Hgb 7.9 gm/dl (10.1-14.3) L 02/10/22 03:40 Hct 25.3 % (30.3-42.9) L 02/10/22 03:40 MCV 63 fl (79-97) L 02/10/22 03:40 MCH 20 pg (28-32) L 02/10/22 03:40 MCHC 31 % (30-34) 02/10/22 03:40 RDW 20.7 % (13.2-15.2) H 02/10/22 03:40 Plt Count 191 K/mm3 (140-440) 02/10/22 03:40 Lymph % (Auto) Sales And Marketing Intern 02/02/22 04:00 Add Manual Diff Complete 02/03/22 04:00 Total Counted 50 02/03/22 04:00 Seg Neutrophils % Sales And Marketing Intern 02/02/22 04:00 Seg Neuts % (Manual) 76.0 % (40.0-70.0) H 02/03/22 04:00 Band Neutrophils % 18.0 % 02/03/22 04:00 Lymphocytes % (Manual) 2.0 % (13.4-35.0) L 02/03/22 04:00 Reactive Lymphs % (Man) 0 % 02/03/22 04:00 Monocytes % (Manual) 4.0 % (0.0-7.3) 02/03/22 04:00 Eosinophils % (Manual) 0 % (0.0-4.3) 02/03/22 04:00 Basophils % (Manual) 0 % (0.0-1.8) 02/03/22 04:00 Metamyelocytes % 0 % 02/03/22 04:00 Myelocytes % 0 % 02/03/22 04:00 Promyelocytes % 0 % 02/03/22 04:00 Blast Cells % 0 % 02/03/22 04:00 Nucleated RBC % 4.0 % (0.0-0.9) H 02/03/22 04:00 Seg Neutrophils # Man 2.8 K/mm3 (1.8-7.7) 02/03/22 04:00 Band Neutrophils # 0.7 K/mm3 02/03/22 04:00 Lymphocytes # (Manual) 0.1 K/mm3 (1.2-5.4) L 02/03/22 04:00 Abs React Lymphs (Man) 0.0 K/mm3 02/03/22 04:00 Monocytes # (Manual) 0.1 K/mm3 (0.0-0.8) 02/03/22 04:00 Eosinophils # (Manual) 0.0 K/mm3 (0.0-0.4) 02/03/22 04:00 Basophils # (Manual) 0.0 K/mm3 (0.0-0.1) 02/03/22 04:00 Metamyelocytes # 0.0 K/mm3 02/03/22 04:00 Myelocytes # 0.0 K/mm3 02/03/22 04:00 Promyelocytes # 0.0 K/mm3 02/03/22 04:00 Blast Cells # 0.0 K/mm3 02/03/22 04:00 WBC Morphology Not Reportable 02/03/22 04:00 Hypersegmented Neuts Not Reportable 02/03/22 04:00 Hyposegmented Neuts Not Reportable 02/03/22 04:00 Hypogranular Neuts Not Reportable 02/03/22 04:00 Smudge Cells Not Reportable 02/03/22 04:00 Toxic Granulation Not Reportable 02/03/22 04:00 Toxic Vacuolation Not Reportable 02/03/22 04:00 Dohle Bodies Few 02/03/22 04:00 Pelger-Huet Anomaly Not Reportable 02/03/22 04:00 Sung Rods Not Reportable 02/03/22 04:00 Platelet Estimate Consistent w auto 02/03/22 04:00 Clumped Platelets Not Reportable 02/03/22 04:00 Plt Clumps, EDTA Not Reportable 02/03/22 04:00 Large Platelets Not Reportable 02/03/22 04:00 Giant Platelets Not Reportable 02/03/22 04:00 Platelet Satelliting Not Reportable 02/03/22 04:00 Plt Morphology Comment Not Reportable 02/03/22 04:00 RBC Morphology Not Reportable 02/03/22 04:00 Dimorphic RBCs Not Reportable 02/03/22 04:00 Polychromasia Not Reportable 02/03/22 04:00 Hypochromasia 3+ 02/03/22 04:00 Poikilocytosis 2+ 02/03/22 04:00 Anisocytosis 1+ 02/03/22 04:00 Microcytosis 2+ 02/03/22 04:00 Macrocytosis Not Reportable 02/03/22 04:00 Spherocytes Not Reportable 02/03/22 04:00 Pappenheimer Bodies Not Reportable 02/03/22 04:00 Sickle Cells Not Reportable 02/03/22 04:00 Target Cells 1+ 02/03/22 04:00 Tear Drop Cells Few 02/03/22 04:00 Ovalocytes Few 02/03/22 04:00 Helmet Cells Not Reportable 02/03/22 04:00 Starr-Yolo Bodies Not Reportable 02/03/22 04:00 Mitchell Rings Not Reportable 02/03/22 04:00 Lesly Cells 1+ 02/03/22 04:00 Bite Cells Not Reportable 02/03/22 04:00 Crenated Cell Not Reportable 02/03/22 04:00 Elliptocytes Few 02/03/22 04:00 Acanthocytes (Spur) Not Reportable 02/03/22 04:00 Rouleaux Not Reportable 02/03/22 04:00 Hemoglobin C Crystals Not Reportable 02/03/22 04:00 Schistocytes Rare 02/03/22 04:00 Malaria parasites Not Reportable 02/03/22 04:00 Percent Retic 0.65 % (0.78-2.58) L 02/08/22 03:55 Sven Bodies Not Reportable 02/03/22 04:00 Hem Pathologist Commnt No 02/03/22 04:00 PT 14.8 Sec. (12.2-14.9) 02/05/22 08:48 INR 1.02 (0.87-1.13) 02/05/22 08:48 APTT 34.4 Sec. (24.2-36.6) 02/05/22 08:48 Fibrinogen 795 mg/dl (211-480) H 02/05/22 08:48 ABG pH 7.468 pH Units (7.350-7.450) H 02/10/22 04:17 POC ABG pCO2 37.3 mmHg (32.0-48.0) 02/02/22 04:49 ABG pCO2 59.5 mm Hg 02/10/22 04:17 POC ABG pO2 79.9 mmHg (83-108) L 02/02/22 04:49 ABG pO2 124.2 mm Hg (80.0-90.0) H 02/10/22 04:17 POC ABG HCO3 30.3 02/02/22 04:49 ABG HCO3 42.1 mmol/L (20.0-26.0) H 02/10/22 04:17 ABG O2 Saturation 98.4 % (95.0-99.0) 02/10/22 04:17 ABG O2 Content 10.5 (0.0-44) 02/10/22 04:17 POC ABG Base Excess 7.1 02/02/22 04:49 ABG Base Excess 16.6 mmol/L (-2.0-3.0) H 02/10/22 04:17 ABG Hemoglobin 7.6 gm/dl (12.0-16.0) L 02/10/22 04:17 ABG Oxyhemoglobin 96.0 (94-98) 02/02/22 04:49 ABG Carboxyhemoglobin 1.5 % (0.0-5.0) 02/10/22 04:17 ABG Methemoglobin 0.5 % (0.0-1.5) 02/10/22 04:17 ABG Sodium Not Reportable 02/02/22 04:49 ABG Potassium Not Reportable 02/02/22 04:49 ABG Chloride Not Reportable 02/02/22 04:49 ABG Glucose Not Reportable 02/02/22 04:49 Oxyhemoglobin 96.4 % (95.0-99.0) 02/10/22 04:17 Carboxyhemoglobin 0.2 (0.5-1.5) L 02/02/22 04:49 FiO2 55 % 02/10/22 04:17 FiO2 % 60.0 02/02/22 04:49 Sodium 149 mmol/L (137-145) H 02/10/22 03:40 Potassium 3.2 mmol/L (3.6-5.0) L 02/10/22 03:40 Chloride 99.8 mmol/L (98-107) 02/10/22 03:40 Carbon Dioxide 38 mmol/L (22-30) H 02/10/22 03:40 Anion Gap 14 mmol/L 02/10/22 03:40 BUN 26 mg/dL (7-17) H 02/10/22 03:40 Creatinine 0.5 mg/dL (0.6-1.2) L 02/10/22 03:40 Estimated GFR > 60 ml/min 02/10/22 03:40 BUN/Creatinine Ratio 52 % 02/10/22 03:40 Glucose 188 mg/dL (65-100) H 02/10/22 03:40 POC Glucose 189 mg/dL (70-105) H 02/10/22 11:46 Hemoglobin A1c 11.1 % (4-6) H 02/01/22 12:54 Lactic Acid 2.50 mmol/L (0.7-2.0) H* 02/06/22 11:50 Calcium 8.3 mg/dL (8.4-10.2) L 02/10/22 03:40 Phosphorus 2.10 mg/dL (2.5-4.5) L 02/10/22 03:40 Magnesium 2.30 mg/dL (1.7-2.3) 02/10/22 03:40 Total Bilirubin 0.30 mg/dL (0.1-1.2) 02/10/22 03:40 Direct Bilirubin < 0.2 mg/dL (0-0.2) 02/08/22 03:55 Indirect Bilirubin 0.0 mg/dL 02/08/22 03:55 AST 120 units/L (5-40) H 02/10/22 03:40 ALT 80 units/L (7-56) H 02/10/22 03:40 Alkaline Phosphatase 207 units/L (35-129) H 02/10/22 03:40 Lactate Dehydrogenase 879 units/L (91-180) H 02/05/22 04:40 Troponin T < 0.010 ng/mL (0.00-0.029) 02/03/22 16:15 Total Protein 5.3 g/dL (6.3-8.2) L 02/10/22 03:40 Albumin 2.4 g/dL (3.9-5) L 02/10/22 03:40 Albumin/Globulin Ratio 0.8 % 02/10/22 03:40 Arterial Blood Glucose Not Reportable 02/02/22 04:49 Urine Color Yellow (Yellow) 02/04/22 09:15 Urine Turbidity Cloudy (Clear) 02/04/22 09:15 Urine pH 6.0 (5.0-7.0) 02/04/22 09:15 Ur Specific Sharon 1.025 (1.003-1.030) 02/04/22 09:15 Urine Protein >500 mg/dL (Negative) 02/04/22 09:15 Urine Glucose (UA) Negative mg/dL (Negative) 02/04/22 09:15 Urine Ketones Negative mg/dL (Negative) 02/04/22 09:15 Urine Blood Large (Negative) A 02/04/22 09:15 Urine Nitrite Negative (Negative) 02/04/22 09:15 Ur Reducing Substances Not Reportable 01/31/22 22:49 Urine Bilirubin Negative (Negative) 02/04/22 09:15 Urine Ictotest Not Reportable 01/31/22 22:49 Urine Urobilinogen < 2.0 mg/dL (<2.0) 02/04/22 09:15 Ur Leukocyte Esterase Negative (Negative) 02/04/22 09:15 Urine WBC (Auto) 12.0 /HPF (0.0-6.0) H 02/04/22 09:15 Urine RBC (Auto) 107.0 /HPF (0.0-6.0) 02/04/22 09:15 U Epithel Cells (Auto) 1.0 /HPF (0-13.0) 02/04/22 09:15 Urine Bacteria (Auto) 1+ /HPF (Negative) 02/04/22 09:15 Urine Mucus Few /HPF 02/04/22 09:15 Urine Yeast (Budding) 2+ /HPF 02/04/22 09:15 Vancomycin Trough 28.6 ug/mL (5.0-20.0) H 02/05/22 Unknown Coronavirus (PCR) Negative (Negative) 02/02/22 10:44 SARS-CoV-2 (PCR) Negative (Negative) 02/01/22 08:50 HIV 1&2 Antibody Rapid Non react (Non React) 02/04/22 14:37 HIV P24 Antigen Non react (Non React) 02/04/22 14:37 Blood Type A POSITIVE 02/04/22 20:22 Antibody Screen Negative 02/04/22 20:22 Crossmatch See Detail 02/04/22 20:22 Microbiology: Microbiology 02/04/22 14:37 Peripheral/Venous Blood Culture - Final NO GROWTH AFTER 5 DAYS 02/04/22 14:37 Peripheral/Venous Blood Culture - Final NO GROWTH AFTER 5 DAYS 02/04/22 14:37 Peripheral/Venous Blood Fungal Culture - Preliminary Culture in Progress Gastelum/IV: Voiding Method External Female Catheter Active Medications - Current Medications Current Medications: Generic Name Dose Route Start Last Admin Trade Name Freq PRN Reason Stop Dose Admin Acetaminophen 650 mg 02/01/22 00:57 02/04/22 11:58 Acetaminophen 325 Mg Tab PO 650 mg Q4H PRN Administration Pain MILD(1-3)/Fever >100.5/ROSADO Albumin Human 12.5 gm 02/07/22 21:00 Albumin Human 25% (12.5 Gm/50 Ml) Inj IV ONCE JAMIL Albuterol 2.5 mg 02/01/22 00:57 Albuterol 2.5 Mg/3 Ml Nebu IH Q3HRT PRN Shortness Of Breath Lipase/Protease/Amylase 1 each 02/02/22 08:08 Lipase 10,500/Protease 25,000/Amylase 43,750 (Units) Dr Avelar FEEDTUBE PRN PRN For Clogged Feeding Tube Atorvastatin Calcium 20 mg 02/03/22 22:00 02/09/22 21:12 Atorvastatin 20 Mg Tab FEEDTUBE 20 mg QHS JAMIL Administration Dextrose 50 ml 02/02/22 08:00 02/05/22 11:52 Dextrose 50% In Water (25gm) 50 Ml Syringe IV 25 ml Q30MIN PRN Administration Hypoglycemia Protocol Docusate Sodium 100 mg 02/07/22 10:00 02/10/22 09:44 Docusate Sodium 100 Mg/10 Ml Oral Liqd PO 100 mg BID JAMIL Administration Famotidine 20 mg 02/04/22 10:00 02/10/22 09:46 Famotidine 20 Mg Tab FEEDTUBE 20 mg BID JAMIL Administration Fentanyl 50 mcg 02/02/22 09:45 02/08/22 05:49 Fentanyl 100 Mcg/2 Ml Inj IV 50 mcg Q10MIN PRN Administration ANALGESIA Hydrocortisone Sodium Succinate 100 mg 02/06/22 13:00 02/10/22 13:18 Hydrocortisone Sod Succ 100 Mg/2 Ml Vial IV 100 mg Q8HR JAMIL Administration Hydrophilic Ointment 1 applic 02/01/22 18:52 Lip Therapy Vaseline TP Q2HR PRN Dry Lips NORepinephrine/NS 8 MG-250 ML 8 mg in 250 mls @ 3.75 mls/hr 02/01/22 20:00 02/07/22 19:18 Norepinephrine/Ns 8 Mg-250 Ml (Double Conc) IV 0 mcg/min TITRATE JAMIL 0 mls/hr Titration Protocol 2 MCG/MIN Propofol 1,000 mg in 100 mls @ 1.429 mls/hr 02/01/22 19:17 02/08/22 16:30 Diprivan 10 Mg/Ml IV 0 mcg/kg/min TITR JAMIL 0 mls/hr Titration Protocol 5 MCG/KG/MIN Fentanyl Citrate 2,000 mcg in 100 mls @ 2.381 mls/hr 02/02/22 10:00 02/10/22 09:44 Fentanyl Drip Premix IV 2 mcg/kg/hr TITR JAMIL 4.763 mls/hr Administration Protocol 1 MCG/KG/HR Phenylephrine HCl 100 mg/ 100 mls @ 3 mls/hr 02/03/22 14:15 02/07/22 19:18 Sodium Chloride IV 0 mcg/min TITR JAMIL 0 mls/hr Titration Protocol 50 MCG/MIN Sodium Chloride 500 mls @ 5 mls/hr 02/04/22 03:00 02/08/22 05:21 Nacl 0.9% 500 Ml IV 5 mls/hr DIRECT JAMIL Administration Vasopressin 20 unit/ Sodium 101 mls @ 9.09 mls/hr 02/04/22 09:15 02/07/22 19:18 Chloride IV 0 units/min TITR JAMIL 0 mls/hr Titration Protocol 0.03 UNITS/MIN Ceftriaxone Sodium 2 gm in 100 mls @ 200 mls/hr 02/05/22 16:00 02/09/22 15:18 Rocephin/Ns 2 Gm/100 Ml IV 02/11/22 16:29 200 mls/hr Q24H JAMIL Administration Protocol Insulin Glargine 35 units 02/09/22 22:00 02/09/22 21:18 Insulin Glargine 100 Units/Ml SUB-Q 35 units QHS JAMIL Administration Insulin Human Regular 0 units 02/02/22 18:00 02/10/22 13:17 Insulin Regular, Human 100 Units/1 Ml SUB-Q 3 units Q6H JAMIL Administration Protocol Multi-Ingred Cream/Lotion/Oil/Oint 1 applic 02/01/22 18:52 Mineral Oil/Petrolatum, White Ophth Oint 3.5 Gm OU Q4HR PRN Dry Eye(s) Ondansetron HCl 4 mg 02/01/22 00:57 Ondansetron 4 Mg/2 Ml Inj IV Q8H PRN Nausea And Vomiting Quetiapine Fumarate 50 mg 02/09/22 10:00 02/10/22 09:44 Quetiapine 25 Mg Tab PO 50 mg BID JAMIL Administration Senna/Docusate Sodium 2 tab 02/07/22 10:00 02/10/22 09:43 Sennosides/Docusate Sodium 8.6/50 Mg Tab PO 2 tab Q12H JAMIL Administration Simple Syrup 15 ml 02/02/22 08:08 Simple Syrup 15 Ml FEEDTUBE PRN PRN Hypoglycemia Simple Syrup 30 ml 02/02/22 08:08 Simple Syrup 15 Ml FEEDTUBE PRN PRN Hypoglycemia Sodium Bicarbonate 325 mg 02/02/22 08:08 Sodium Bicarbonate 325 Mg Tab FEEDTUBE PRN PRN For Clogged Feeding Tube Sodium Chloride 10 ml 02/01/22 10:00 02/10/22 09:46 Sodium Chloride 0.9% 10 Ml Flush Syringe IV 10 ml BID JAMIL Administration Sodium Chloride 10 ml 02/01/22 00:57 02/09/22 05:59 Sodium Chloride 0.9% 10 Ml Flush Syringe IV 10 ml PRN PRN Administration LINE FLUSH Sodium Phosphate 250 mg 02/10/22 10:00 02/10/22 13:20 K-Phos Neutral 250 Mg Tab PO 02/10/22 22:01 250 mg QID JAMIL Administration Nutrition/Malnutrition Assess - Dietary Evaluation Nutrition/Malnutrition Findings: Nutrition Notes Start: 02/01/22 17:50 Freq: Status: Active Protocol: Document 02/06/22 09:48 JACQUELINE (Rec: 02/06/22 10:15 JACQUELINE [id number]) Nutrition Notes Initial or Follow up Brief Note Current Diagnosis Diabetes,Sepsis,Respiratory Failure Other Pertinent Diagnosis s/p DKA, s/p PEA Arrest, Pneumonia, Pyuria, Pancytopenia, UTI, ... Current Diet TF-Glucerna 1.2 Moreno @ 55 ml/hr (since L 02/04). Labs/Tests 02/06: Na 146, K 3.4, CO2 31, BUN 21, Glu 230. Pertinent Medications 02/06: Humulin R 4U, KCl 10mEq , others nutritionally unremarkable. Height 5 ft 4 in Weight 46.5 kg Rodney Body Weight (kg) 54.54 BMI 17.6 Weight change and time frame 0.2 Kg body weight loss reported in 2 days. Weight Status Underweight Subjective/Other Information RD consult for TF tolerance/ continuation. TF continues as prescribed, and well tolerated, according to RN notes. 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 - END OF NOTE. Pt remains on Mechanical Ventilation, O2 saturation @ 96%, according to Physical Assessment History notes. Pt remains incontinent, according to Physical Assessment History notes. Percent of energy/protein needs met: Prescribed TF-Glucerna 1.2 Moreno @ 55 ml/hr provides for energy/protein needs (1584 Kcal/79 g) during LOS, 97% Kcal; 100% AA. #1 Nutrition Diagnosis Inadequate oral intake Diagnosis Progress(for reassessment Continues documentation) Is patient on ventilator? Yes Is Patient Ambulatory and/or Out of Bed No REE-([facility]-confined to bed) 1235.112 Kcal/Kg value to use for calculation 35 Approximate Energy Requirements Using 1628 kcal/Kg Calculation Used for Recommendations Kcal/kg Additional Notes Protein: 1.2-2 g/Kg ABW; 56-93 g/day. Fluids: 1 ml/Kcal, or as per MD. Nutrition Intervention Nutrition Support: Continue TF-Glucerna 1.2 Moreno @ 55 ml/hr. Flush: 250 ml water Q 4 hr while hypernatremia persists, resume to 100 ml when Na is WNL. Kcal 1,584 Protein (gm) 79 Carbohydrates (gm) 151 Fat (gm) 79 Fluid (mL) 1,063 Fiber (gm) 21 % RDI: 97% Kcal; 100% AA. Goal #1 Provide at least 75% of energy /protein needs through Enteral Feeding during LOS. Follow-Up By: 02/13/22 Additional Comments Continue monitoring TF tolerance, Mechanical Ventilation, Hypernatremia, and BM. <MELISSA WHITE - Last Filed: 02/11/22 07:26> Assessment and Plan Assessment and plan: I saw and evaluated the patient. I agree with the findings and the plan of care as documented in the Nurse Practitioner's~note, with the following corrections and additions. Hospitalist Physical - Constitutional Vitals: Temp Pulse Resp BP Pulse Ox 99.1 F 115 H 18 122/90 100 02/11/22 04:00 02/11/22 07:01 02/11/22 07:01 02/11/22 07:01 02/11/22 07:01 HEART Score - HEART Score Troponin: Troponin T < 0.010 ng/mL (0.00-0.029) 02/03/22 16:15 Results - Labs CBC & Chem 7: 02/11/22 04:00 02/11/22 04:00 Labs: Laboratory Last Values WBC 20.8 K/mm3 (4.5-11.0) H 02/11/22 04:00 RBC 3.85 M/mm3 (3.65-5.03) 02/11/22 04:00 Hgb 7.7 gm/dl (10.1-14.3) L 02/11/22 04:00 Hct 24.5 % (30.3-42.9) L 02/11/22 04:00 MCV 64 fl (79-97) L 02/11/22 04:00 MCH 20 pg (28-32) L 02/11/22 04:00 MCHC 31 % (30-34) 02/11/22 04:00 RDW 23.5 % (13.2-15.2) H 02/11/22 04:00 Plt Count 305 K/mm3 (140-440) 02/11/22 04:00 Lymph % (Auto) Sales And Marketing Intern 02/02/22 04:00 Add Manual Diff Complete 02/03/22 04:00 Total Counted 50 02/03/22 04:00 Seg Neutrophils % Sales And Marketing Intern 02/02/22 04:00 Seg Neuts % (Manual) 76.0 % (40.0-70.0) H 02/03/22 04:00 Band Neutrophils % 18.0 % 02/03/22 04:00 Lymphocytes % (Manual) 2.0 % (13.4-35.0) L 02/03/22 04:00 Reactive Lymphs % (Man) 0 % 02/03/22 04:00 Monocytes % (Manual) 4.0 % (0.0-7.3) 02/03/22 04:00 Eosinophils % (Manual) 0 % (0.0-4.3) 02/03/22 04:00 Basophils % (Manual) 0 % (0.0-1.8) 02/03/22 04:00 Metamyelocytes % 0 % 02/03/22 04:00 Myelocytes % 0 % 02/03/22 04:00 Promyelocytes % 0 % 02/03/22 04:00 Blast Cells % 0 % 02/03/22 04:00 Nucleated RBC % 4.0 % (0.0-0.9) H 02/03/22 04:00 Seg Neutrophils # Man 2.8 K/mm3 (1.8-7.7) 02/03/22 04:00 Band Neutrophils # 0.7 K/mm3 02/03/22 04:00 Lymphocytes # (Manual) 0.1 K/mm3 (1.2-5.4) L 02/03/22 04:00 Abs React Lymphs (Man) 0.0 K/mm3 02/03/22 04:00 Monocytes # (Manual) 0.1 K/mm3 (0.0-0.8) 02/03/22 04:00 Eosinophils # (Manual) 0.0 K/mm3 (0.0-0.4) 02/03/22 04:00 Basophils # (Manual) 0.0 K/mm3 (0.0-0.1) 02/03/22 04:00 Metamyelocytes # 0.0 K/mm3 02/03/22 04:00 Myelocytes # 0.0 K/mm3 02/03/22 04:00 Promyelocytes # 0.0 K/mm3 02/03/22 04:00 Blast Cells # 0.0 K/mm3 02/03/22 04:00 WBC Morphology Not Reportable 02/03/22 04:00 Hypersegmented Neuts Not Reportable 02/03/22 04:00 Hyposegmented Neuts Not Reportable 02/03/22 04:00 Hypogranular Neuts Not Reportable 02/03/22 04:00 Smudge Cells Not Reportable 02/03/22 04:00 Toxic Granulation Not Reportable 02/03/22 04:00 Toxic Vacuolation Not Reportable 02/03/22 04:00 Dohle Bodies Few 02/03/22 04:00 Pelger-Huet Anomaly Not Reportable 02/03/22 04:00 Sugn Rods Not Reportable 02/03/22 04:00 Platelet Estimate Consistent w auto 02/03/22 04:00 Clumped Platelets Not Reportable 02/03/22 04:00 Plt Clumps, EDTA Not Reportable 02/03/22 04:00 Large Platelets Not Reportable 02/03/22 04:00 Giant Platelets Not Reportable 02/03/22 04:00 Platelet Satelliting Not Reportable 02/03/22 04:00 Plt Morphology Comment Not Reportable 02/03/22 04:00 RBC Morphology Not Reportable 02/03/22 04:00 Dimorphic RBCs Not Reportable 02/03/22 04:00 Polychromasia Not Reportable 02/03/22 04:00 Hypochromasia 3+ 02/03/22 04:00 Poikilocytosis 2+ 02/03/22 04:00 Anisocytosis 1+ 02/03/22 04:00 Microcytosis 2+ 02/03/22 04:00 Macrocytosis Not Reportable 02/03/22 04:00 Spherocytes Not Reportable 02/03/22 04:00 Pappenheimer Bodies Not Reportable 02/03/22 04:00 Sickle Cells Not Reportable 02/03/22 04:00 Target Cells 1+ 02/03/22 04:00 Tear Drop Cells Few 02/03/22 04:00 Ovalocytes Few 02/03/22 04:00 Helmet Cells Not Reportable 02/03/22 04:00 Starr-Yolo Bodies Not Reportable 02/03/22 04:00 Mitchell Rings Not Reportable 02/03/22 04:00 Lesly Cells 1+ 02/03/22 04:00 Bite Cells Not Reportable 02/03/22 04:00 Crenated Cell Not Reportable 02/03/22 04:00 Elliptocytes Few 02/03/22 04:00 Acanthocytes (Spur) Not Reportable 02/03/22 04:00 Rouleaux Not Reportable 02/03/22 04:00 Hemoglobin C Crystals Not Reportable 02/03/22 04:00 Schistocytes Rare 02/03/22 04:00 Malaria parasites Not Reportable 02/03/22 04:00 Percent Retic 0.65 % (0.78-2.58) L 02/08/22 03:55 Sven Bodies Not Reportable 02/03/22 04:00 Hem Pathologist Commnt No 02/03/22 04:00 PT 14.8 Sec. (12.2-14.9) 02/05/22 08:48 INR 1.02 (0.87-1.13) 02/05/22 08:48 APTT 34.4 Sec. (24.2-36.6) 02/05/22 08:48 Fibrinogen 795 mg/dl (211-480) H 02/05/22 08:48 ABG pH 7.459 pH Units (7.350-7.450) H 02/11/22 05:57 POC ABG pCO2 37.3 mmHg (32.0-48.0) 02/02/22 04:49 ABG pCO2 59.7 mm Hg 02/11/22 05:57 POC ABG pO2 79.9 mmHg (83-108) L 02/02/22 04:49 ABG pO2 99.8 mm Hg (80.0-90.0) H 02/11/22 05:57 POC ABG HCO3 30.3 02/02/22 04:49 ABG HCO3 41.4 mmol/L (20.0-26.0) H 02/11/22 05:57 ABG O2 Saturation 97.5 % (95.0-99.0) 02/11/22 05:57 ABG O2 Content 10.3 (0.0-44) 02/11/22 05:57 POC ABG Base Excess 7.1 02/02/22 04:49 ABG Base Excess 15.9 mmol/L (-2.0-3.0) H 02/11/22 05:57 ABG Hemoglobin 7.5 gm/dl (12.0-16.0) L 02/11/22 05:57 ABG Oxyhemoglobin 96.0 (94-98) 02/02/22 04:49 ABG Carboxyhemoglobin 1.7 % (0.0-5.0) 02/11/22 05:57 ABG Methemoglobin 0.6 % (0.0-1.5) 02/11/22 05:57 ABG Sodium Not Reportable 02/02/22 04:49 ABG Potassium Not Reportable 02/02/22 04:49 ABG Chloride Not Reportable 02/02/22 04:49 ABG Glucose Not Reportable 02/02/22 04:49 Oxyhemoglobin 95.2 % (95.0-99.0) 02/11/22 05:57 Carboxyhemoglobin 0.2 (0.5-1.5) L 02/02/22 04:49 FiO2 40 % 02/11/22 05:57 FiO2 % 60.0 02/02/22 04:49 Sodium 148 mmol/L (137-145) H 02/11/22 04:00 Potassium 3.3 mmol/L (3.6-5.0) L 02/11/22 04:00 Chloride 100.1 mmol/L (98-107) 02/11/22 04:00 Carbon Dioxide 39 mmol/L (22-30) H 02/11/22 04:00 Anion Gap 12 mmol/L 02/11/22 04:00 BUN 27 mg/dL (7-17) H 02/11/22 04:00 Creatinine 0.5 mg/dL (0.6-1.2) L 02/11/22 04:00 Estimated GFR > 60 ml/min 02/11/22 04:00 BUN/Creatinine Ratio 54 % 02/11/22 04:00 Glucose 218 mg/dL (65-100) H 02/11/22 04:00 POC Glucose 173 mg/dL (70-105) H 02/11/22 05:00 Hemoglobin A1c 11.1 % (4-6) H 02/01/22 12:54 Lactic Acid 2.50 mmol/L (0.7-2.0) H* 02/06/22 11:50 Calcium 8.3 mg/dL (8.4-10.2) L 02/11/22 04:00 Phosphorus 3.40 mg/dL (2.5-4.5) D 02/11/22 04:00 Magnesium 2.30 mg/dL (1.7-2.3) 02/11/22 04:00 Total Bilirubin 0.30 mg/dL (0.1-1.2) 02/10/22 03:40 Direct Bilirubin < 0.2 mg/dL (0-0.2) 02/08/22 03:55 Indirect Bilirubin 0.0 mg/dL 02/08/22 03:55 AST 120 units/L (5-40) H 02/10/22 03:40 ALT 80 units/L (7-56) H 02/10/22 03:40 Alkaline Phosphatase 207 units/L (35-129) H 02/10/22 03:40 Lactate Dehydrogenase 879 units/L (91-180) H 02/05/22 04:40 Troponin T < 0.010 ng/mL (0.00-0.029) 02/03/22 16:15 Total Protein 5.3 g/dL (6.3-8.2) L 02/10/22 03:40 Albumin 2.4 g/dL (3.9-5) L 02/10/22 03:40 Albumin/Globulin Ratio 0.8 % 02/10/22 03:40 Arterial Blood Glucose Not Reportable 02/02/22 04:49 Urine Color Yellow (Yellow) 02/04/22 09:15 Urine Turbidity Cloudy (Clear) 02/04/22 09:15 Urine pH 6.0 (5.0-7.0) 02/04/22 09:15 Ur Specific Sharon 1.025 (1.003-1.030) 02/04/22 09:15 Urine Protein >500 mg/dL (Negative) 02/04/22 09:15 Urine Glucose (UA) Negative mg/dL (Negative) 02/04/22 09:15 Urine Ketones Negative mg/dL (Negative) 02/04/22 09:15 Urine Blood Large (Negative) A 02/04/22 09:15 Urine Nitrite Negative (Negative) 02/04/22 09:15 Ur Reducing Substances Not Reportable 01/31/22 22:49 Urine Bilirubin Negative (Negative) 02/04/22 09:15 Urine Ictotest Not Reportable 01/31/22 22:49 Urine Urobilinogen < 2.0 mg/dL (<2.0) 02/04/22 09:15 Ur Leukocyte Esterase Negative (Negative) 02/04/22 09:15 Urine WBC (Auto) 12.0 /HPF (0.0-6.0) H 02/04/22 09:15 Urine RBC (Auto) 107.0 /HPF (0.0-6.0) 02/04/22 09:15 U Epithel Cells (Auto) 1.0 /HPF (0-13.0) 02/04/22 09:15 Urine Bacteria (Auto) 1+ /HPF (Negative) 02/04/22 09:15 Urine Mucus Few /HPF 02/04/22 09:15 Urine Yeast (Budding) 2+ /HPF 02/04/22 09:15 Vancomycin Trough 28.6 ug/mL (5.0-20.0) H 02/05/22 Unknown Coronavirus (PCR) Negative (Negative) 02/02/22 10:44 SARS-CoV-2 (PCR) Negative (Negative) 02/01/22 08:50 HIV 1&2 Antibody Rapid Non react (Non React) 02/04/22 14:37 HIV P24 Antigen Non react (Non React) 02/04/22 14:37 Blood Type A POSITIVE 02/04/22 20:22 Antibody Screen Negative 02/04/22 20:22 Crossmatch See Detail 02/04/22 20:22 Gastelum/IV: Voiding Method External Female Catheter Active Medications - Current Medications Current Medications: Generic Name Dose Route Start Last Admin Trade Name Freq PRN Reason Stop Dose Admin Acetaminophen 650 mg 02/01/22 00:57 02/04/22 11:58 Acetaminophen 325 Mg Tab PO 650 mg Q4H PRN Administration Pain MILD(1-3)/Fever >100.5/ROSADO Albumin Human 12.5 gm 02/07/22 21:00 Albumin Human 25% (12.5 Gm/50 Ml) Inj IV ONCE JAMIL Albuterol 2.5 mg 02/01/22 00:57 Albuterol 2.5 Mg/3 Ml Nebu IH Q3HRT PRN Shortness Of Breath Lipase/Protease/Amylase 1 each 02/02/22 08:08 Lipase 10,500/Protease 25,000/Amylase 43,750 (Units) Dr Avelar FEEDTUBE PRN PRN For Clogged Feeding Tube Atorvastatin Calcium 20 mg 02/03/22 22:00 02/10/22 21:17 Atorvastatin 20 Mg Tab FEEDTUBE 20 mg QHS JAMIL Administration Dextrose 50 ml 02/02/22 08:00 02/05/22 11:52 Dextrose 50% In Water (25gm) 50 Ml Syringe IV 25 ml Q30MIN PRN Administration Hypoglycemia Protocol Docusate Sodium 100 mg 02/07/22 10:00 02/10/22 21:16 Docusate Sodium 100 Mg/10 Ml Oral Liqd PO 100 mg BID JAMIL Administration Famotidine 20 mg 02/04/22 10:00 02/10/22 21:17 Famotidine 20 Mg Tab FEEDTUBE 20 mg BID JAMIL Administration Fentanyl 50 mcg 02/02/22 09:45 02/08/22 05:49 Fentanyl 100 Mcg/2 Ml Inj IV 50 mcg Q10MIN PRN Administration ANALGESIA Hydrocortisone Sodium Succinate 100 mg 02/06/22 13:00 02/11/22 05:09 Hydrocortisone Sod Succ 100 Mg/2 Ml Vial IV 100 mg Q8HR JAMIL Administration Hydrophilic Ointment 1 applic 02/01/22 18:52 Lip Therapy Vaseline TP Q2HR PRN Dry Lips NORepinephrine/NS 8 MG-250 ML 8 mg in 250 mls @ 3.75 mls/hr 02/01/22 20:00 02/07/22 19:18 Norepinephrine/Ns 8 Mg-250 Ml (Double Conc) IV 0 mcg/min TITRATE JAMIL 0 mls/hr Titration Protocol 2 MCG/MIN Propofol 1,000 mg in 100 mls @ 1.429 mls/hr 02/01/22 19:17 02/08/22 16:30 Diprivan 10 Mg/Ml IV 0 mcg/kg/min TITR JAMIL 0 mls/hr Titration Protocol 5 MCG/KG/MIN Fentanyl Citrate 2,000 mcg in 100 mls @ 2.381 mls/hr 02/02/22 10:00 02/11/22 04:45 Fentanyl Drip Premix IV 2 mcg/kg/hr TITR JAMIL 4.763 mls/hr Administration Protocol 1 MCG/KG/HR Phenylephrine HCl 100 mg/ 100 mls @ 3 mls/hr 02/03/22 14:15 02/07/22 19:18 Sodium Chloride IV 0 mcg/min TITR JAMIL 0 mls/hr Titration Protocol 50 MCG/MIN Sodium Chloride 500 mls @ 5 mls/hr 02/04/22 03:00 02/08/22 05:21 Nacl 0.9% 500 Ml IV 5 mls/hr DIRECT JAMIL Administration Vasopressin 20 unit/ Sodium 101 mls @ 9.09 mls/hr 02/04/22 09:15 02/07/22 19:18 Chloride IV 0 units/min TITR JAMIL 0 mls/hr Titration Protocol 0.03 UNITS/MIN Ceftriaxone Sodium 2 gm in 100 mls @ 200 mls/hr 02/05/22 16:00 02/10/22 16:38 Rocephin/Ns 2 Gm/100 Ml IV 02/11/22 16:29 200 mls/hr Q24H JAMIL Administration Protocol Insulin Glargine 35 units 02/09/22 22:00 02/10/22 21:18 Insulin Glargine 100 Units/Ml SUB-Q 35 units QHS JAMIL Administration Insulin Human Regular 0 units 02/02/22 18:00 02/11/22 05:09 Insulin Regular, Human 100 Units/1 Ml SUB-Q 3 units Q6H JAMIL Administration Protocol Multi-Ingred Cream/Lotion/Oil/Oint 1 applic 02/01/22 18:52 Mineral Oil/Petrolatum, White Ophth Oint 3.5 Gm OU Q4HR PRN Dry Eye(s) Ondansetron HCl 4 mg 02/01/22 00:57 Ondansetron 4 Mg/2 Ml Inj IV Q8H PRN Nausea And Vomiting Quetiapine Fumarate 50 mg 02/09/22 10:00 02/10/22 21:17 Quetiapine 25 Mg Tab PO 50 mg BID JAMIL Administration Senna/Docusate Sodium 2 tab 02/07/22 10:00 02/10/22 21:18 Sennosides/Docusate Sodium 8.6/50 Mg Tab PO Not Given Q12H JAMIL Simple Syrup 15 ml 02/02/22 08:08 Simple Syrup 15 Ml FEEDTUBE PRN PRN Hypoglycemia Simple Syrup 30 ml 02/02/22 08:08 Simple Syrup 15 Ml FEEDTUBE PRN PRN Hypoglycemia Sodium Bicarbonate 325 mg 02/02/22 08:08 Sodium Bicarbonate 325 Mg Tab FEEDTUBE PRN PRN For Clogged Feeding Tube Sodium Chloride 10 ml 02/01/22 10:00 02/10/22 21:19 Sodium Chloride 0.9% 10 Ml Flush Syringe IV 10 ml BID JAMIL Administration Sodium Chloride 10 ml 02/01/22 00:57 02/09/22 05:59 Sodium Chloride 0.9% 10 Ml Flush Syringe IV 10 ml PRN PRN Administration LINE FLUSH Nutrition/Malnutrition Assess - Dietary Evaluation Nutrition/Malnutrition Findings: Nutrition Notes Start: 02/01/22 17:50 Freq: Status: Active Protocol: Document 02/06/22 09:48 JACQUELINE (Rec: 02/06/22 10:15 JACQUELINE [id number]) Nutrition Notes Initial or Follow up Brief Note Current Diagnosis Diabetes,Sepsis,Respiratory Failure Other Pertinent Diagnosis s/p DKA, s/p PEA Arrest, Pneumonia, Pyuria, Pancytopenia, UTI, ... Current Diet TF-Glucerna 1.2 Moreno @ 55 ml/hr (since L 02/04). Labs/Tests 02/06: Na 146, K 3.4, CO2 31, BUN 21, Glu 230. Pertinent Medications 02/06: Humulin R 4U, KCl 10mEq , others nutritionally unremarkable. Height 5 ft 4 in Weight 46.5 kg Rodney Body Weight (kg) 54.54 BMI 17.6 Weight change and time frame 0.2 Kg body weight loss reported in 2 days. Weight Status Underweight Subjective/Other Information RD consult for TF tolerance/ continuation. TF continues as prescribed, and well tolerated, according to RN notes. 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 - END OF NOTE. Pt remains on Mechanical Ventilation, O2 saturation @ 96%, according to Physical Assessment History notes. Pt remains incontinent, according to Physical Assessment History notes. Percent of energy/protein needs met: Prescribed TF-Glucerna 1.2 Moreno @ 55 ml/hr provides for energy/protein needs (1584 Kcal/79 g) during LOS, 97% Kcal; 100% AA. #1 Nutrition Diagnosis Inadequate oral intake Diagnosis Progress(for reassessment Continues documentation) Is patient on ventilator? Yes Is Patient Ambulatory and/or Out of Bed No REE-([facility]) 1235.112 Kcal/Kg value to use for calculation 35 Approximate Energy Requirements Using 1628 kcal/Kg Calculation Used for Recommendations Kcal/kg Additional Notes Protein: 1.2-2 g/Kg ABW; 56-93 g/day. Fluids: 1 ml/Kcal, or as per MD. Nutrition Intervention Nutrition Support: Continue TF-Glucerna 1.2 Moreno @ 55 ml/hr. Flush: 250 ml water Q 4 hr while hypernatremia persists, resume to 100 ml when Na is WNL. Kcal 1,584 Protein (gm) 79 Carbohydrates (gm) 151 Fat (gm) 79 Fluid (mL) 1,063 Fiber (gm) 21 % RDI: 97% Kcal; 100% AA. Goal #1 Provide at least 75% of energy /protein needs through Enteral Feeding during LOS. Follow-Up By: 02/13/22 Additional Comments Continue monitoring TF tolerance, Mechanical Ventilation, Hypernatremia, and BM.
[2022-02-10] MEDS: cefTRIAXone/NS 2 GM/100 ML 2 GM/100 ML BAG IV SCH (16:38)
[2022-02-10] MEDS: INSULIN GLARGINE 100 UNITS/ML SUB-Q SCH (21:18)
[2022-02-11] MEDS: FREE WATER PO SCH ×5 (03:24→21:24)
--- NOTE | 2022-02-11 03:31 | XRay Report ---
. XR chest 1V ap INDICATION / CLINICAL INFORMATION: follow up respiratory failure. COMPARISON: Radiograph from yesterday. FINDINGS: SUPPORT DEVICES: Unchanged. HEART /PULMONARY VASCULATURE: Unchanged. LUNGS / PLEURA: Airspace disease is improving compared to prior examination. No pneumothorax. IMPRESSION: 1. Improving airspace disease. Signer Name: Kian Diaz MD Signed: 02/11/2022 3:27 AM Workstation Name: [id number]
[2022-02-11 04:26] LABS: Hematocrit 24.5 % (30.3-42.9); Hemoglobin 7.7 gm/dl (10.1-14.3); Mean Corpuscular HGB Conc 31 % (30-34); Platelet Count 305 K/mm3 (140-440); Red Blood Count 3.85 M/mm3 (3.65-5.03)
[2022-02-11 04:31] LABS: Mean Corpuscular Volume 64 fl (79-97); Red Cell Distribution Width 23.5 % (13.2-15.2)
[2022-02-11 04:44] LABS: Blood Urea Nitrogen 27 mg/dL (7-17); Calcium 8.3 mg/dL (8.4-10.2); Hemolysis Index 0
[2022-02-11] MEDS: fentaNYL DRIP Premix 2,000 MCG/100 ML BAG IV SCH (04:45)
[2022-02-11 05:04] LABS: BUN/Creatinine Ratio 54
[2022-02-11] MEDS: HYDROCORTISONE SOD SUCC 100 MG/2 ML VIAL IV SCH ×3 (05:09→20:01)
[2022-02-11] MEDS: INSULIN REGULAR, HUMAN 100 UNITS/1 ML SUB-Q SCH ×3 (05:09→17:22)
[2022-02-11 06:18] LABS: ABG Base Excess 15.9 mmol/L (-2.0-3.0); ABG HCO3 41.4 mmol/L (20.0-26.0); ABG Methemoglobin 0.6 % (0.0-1.5); ABG Oxygen Saturation 97.5 % (95.0-99.0); ABG PCO2 59.7 mm Hg; ABG PH 7.459 pH Units (7.350-7.450); ABG PO2 99.8 mm Hg (80.0-90.0)
[2022-02-11] MEDS: SENNOSIDES/DOCUSATE SODIUM 8.6/50 MG TAB PO SCH ×2 (09:30→21:25)
[2022-02-11] MEDS: QUEtiapine 25 MG TAB PO SCH ×2 (09:31→21:22)
[2022-02-11] MEDS: DOCUSATE SODIUM 100 MG/10 ML ORAL LIQD PO SCH ×2 (09:31→21:24)
[2022-02-11] MEDS: FAMOTIDINE 20 MG TAB FEEDTUBE SCH ×2 (09:32→21:22)
--- NOTE | 2022-02-11 10:40 | Progress Note ---
Assessment and Plan Cultures: 01/31/2022 blood culture: No growth 02/01/2022 tracheal aspirate culture: Klebsiella pneumoniae COVID-19 PCR: Negative 02/04/2022 blood culture: no growth so far 02/04/2022 urine culture: No growth 02/04/2022 fungal blood culture: no growth so far A/P: 61-year-old female was admitted from [facility] with hypoglycemia: #Refractory septic shock, severe acidosis, s/p PEA arrest on 02/01/2022. #Bilateral pneumonia: Probably aspiration following PEA arrest. Initial chest x-ray did not show any pneumonia. Now with severe b/l pneumonia. #Possible UTI: UA showed pyuria #Acute hypoxic respiratory failure with ARDS: On mechanical ventilation. #Diabetic ketoacidosis on admission #Pancytopenia, neutropenia, thrombocytopenia: ?sepsis. Seen by hematology. HIV negative. Gradually improving. Recs: -continue IV ceftriaxone, complete total 7 days ending 02/12/2022 -leucocytosis is likely from steroids Doroteo Morales MD, FACP, [facility] ([facility]) O: [phone] F: [phone] C: [phone] Subjective Date of service: 02/11/22 Principal diagnosis: DKA, s/p cardiopulmonary arrest Interval history: Afebrile. Remains on the vent, down to 40% FiO2. Objective - Exam Narrative Exam: Physical Exam: Constitutional: sedated, intubated, on the vent Head, Ears, Nose: Normocephalic, atraumatic. External ears, nose normal Eyes: Conjunctivae/corneas clear. No icterus. No ptosis. Neck: intubated Oral: intubated Cardiovascular: S1, S2 + Respiratory: AE fair bilaterally and equal GI: Soft, bowel sounds + Musculoskeletal: No pedal edema, no cyanosis. Skin: No rash or abscess Hem/Lymphatic: No palpable cervical or supraclavicular nodes. No lymphangitis Psych: no agitation Neurological: sedated, intubated, on the vent, exam limited - Constitutional Vitals: Vital Signs Temp Pulse Resp BP Pulse Ox 99 F 110 H 14 115/77 99 02/11/22 08:00 02/11/22 09:01 02/11/22 09:01 02/11/22 09:01 02/11/22 09:01 Temperature -Last 24 Hours Temperature 99 F Temperature 99.1 F Temperature 99.1 F Temperature 99.7 F Temperature 99.7 F Temperature 99.3 F - Labs CBC & Chem 7: 02/11/22 04:00 02/11/22 04:00 Labs: Abnormal lab results 02/10/22 02/10/22 02/10/22 Range/Units 11:46 16:27 21:15 WBC (4.5-11.0) K/mm3 Hgb (10.1-14.3) gm/dl Hct (30.3-42.9) % MCV (79-97) fl MCH (28-32) pg RDW (13.2-15.2) % ABG pH (7.350-7.450) pH Units ABG pO2 (80.0-90.0) mm Hg ABG HCO3 (20.0-26.0) mmol/L ABG Base Excess (-2.0-3.0) mmol/L ABG Hemoglobin (12.0-16.0) gm/dl Sodium (137-145) mmol/L Potassium (3.6-5.0) mmol/L Carbon Dioxide (22-30) mmol/L BUN (7-17) mg/dL Creatinine (0.6-1.2) mg/dL Glucose (65-100) mg/dL POC Glucose 189 H 198 H 261 H (70-105) mg/dL Calcium (8.4-10.2) mg/dL 02/10/22 02/11/22 02/11/22 Range/Units 23:20 04:00 04:00 WBC 20.8 H (4.5-11.0) K/mm3 Hgb 7.7 L (10.1-14.3) gm/dl Hct 24.5 L (30.3-42.9) % MCV 64 L (79-97) fl MCH 20 L (28-32) pg RDW 23.5 H (13.2-15.2) % ABG pH (7.350-7.450) pH Units ABG pO2 (80.0-90.0) mm Hg ABG HCO3 (20.0-26.0) mmol/L ABG Base Excess (-2.0-3.0) mmol/L ABG Hemoglobin (12.0-16.0) gm/dl Sodium 148 H (137-145) mmol/L Potassium 3.3 L (3.6-5.0) mmol/L Carbon Dioxide 39 H (22-30) mmol/L BUN 27 H (7-17) mg/dL Creatinine 0.5 L (0.6-1.2) mg/dL Glucose 218 H (65-100) mg/dL POC Glucose 196 H (70-105) mg/dL Calcium 8.3 L (8.4-10.2) mg/dL 02/11/22 02/11/22 Range/Units 05:00 05:57 WBC (4.5-11.0) K/mm3 Hgb (10.1-14.3) gm/dl Hct (30.3-42.9) % MCV (79-97) fl MCH (28-32) pg RDW (13.2-15.2) % ABG pH 7.459 H (7.350-7.450) pH Units ABG pO2 99.8 H (80.0-90.0) mm Hg ABG HCO3 41.4 H (20.0-26.0) mmol/L ABG Base Excess 15.9 H (-2.0-3.0) mmol/L ABG Hemoglobin 7.5 L (12.0-16.0) gm/dl Sodium (137-145) mmol/L Potassium (3.6-5.0) mmol/L Carbon Dioxide (22-30) mmol/L BUN (7-17) mg/dL Creatinine (0.6-1.2) mg/dL Glucose (65-100) mg/dL POC Glucose 173 H (70-105) mg/dL Calcium (8.4-10.2) mg/dL
[2022-02-11] MEDS ORDERED: POTASSIUM CHLORIDE 20 MEQ PACKET FEEDTUBE SCH (13:30)
[2022-02-11] MEDS: NITROGLYCERIN 2% OINT 1 GM TP SCH (13:44)
--- NOTE | 2022-02-11 13:50 | Progress Note ---
Assessment and Plan Patient is a 61-year-old female brought to the ED from a long term due to altered mental status. Patient found to be in DKA and have cardiopulmonary S/p cardiopulmonary arrest Acute respiratory failure-pulmonology following DKA Sepsis-ID following SVT Hypotension Hfcofynprjvb-[id number]-bqs following Echo 02/02/2022-EF 55 to 60%. Left ventricular diastolic function is normal. Right ventricular systolic function is mildly reduced. Left and right atria normal in size. No pericardial effusion Plan: Patient is s/p cardiopulmonary arrest however previous rhythm unknown/ suspected to be PEA Telemetry reviewed patient remains in sinus tach no further episodes of SVT No BBs at this time due to soft BP Patient has normal EF on echo. Will consider ischemic eval once patient is stable Overall poor prognosis Patient seen in conjunction with Dr. Mendez who agrees with this plan of care - Patient Problems (1) SVT (supraventricular tachycardia) Current Visit: Yes Status: Acute (2) Acute respiratory failure Current Visit: Yes Status: Acute Qualifiers: Respiratory failure complication: hypoxia Qualified Code(s): J96.01 - Acute respiratory failure with hypoxia (3) Cardiopulmonary arrest with successful resuscitation Current Visit: Yes Status: Acute (4) Hypotension Current Visit: Yes Status: Acute (5) Pancytopenia Current Visit: Yes Status: Acute (6) Sepsis Current Visit: Yes Status: Acute Subjective Date of service: 02/11/22 Principal diagnosis: DKA, s/p cardiopulmonary arrest Interval history: Patient remains intubated Sinus tach 110s no events on monitor Objective Vital Signs Temp Pulse Pulse Resp BP Pulse Ox 02/11/22 13:01 116 H 16 114/73 99 02/11/22 12:45 115 H 16 114/73 99 02/11/22 12:31 116 H 15 114/73 99 02/11/22 12:15 116 H 16 114/73 99 02/11/22 12:00 98.9 F 116 H 116 H 17 114/73 98 02/11/22 11:45 117 H 15 105/69 99 02/11/22 11:31 117 H 15 105/69 99 02/11/22 11:15 120 H 17 105/69 99 02/11/22 11:01 118 H 16 105/69 99 02/11/22 10:45 120 H 15 105/69 100 02/11/22 10:31 120 H 16 105/69 99 02/11/22 10:15 118 H 16 105/69 99 02/11/22 10:00 116 H 16 105/69 98 02/11/22 09:45 110 H 14 115/77 99 02/11/22 09:31 108 H 15 115/77 100 02/11/22 09:15 111 H 15 115/77 99 02/11/22 09:01 110 H 14 115/77 99 02/11/22 08:45 111 H 16 115/77 99 02/11/22 08:31 112 H 17 115/77 99 02/11/22 08:15 113 H 19 115/77 100 02/11/22 08:00 99 F 111 H 116 H 17 115/77 99 02/11/22 07:45 111 H 17 122/90 99 02/11/22 07:31 113 H 18 122/90 100 02/11/22 07:15 114 H 22 122/90 98 02/11/22 07:01 115 H 18 122/90 100 02/11/22 06:45 117 H 19 122/90 99 02/11/22 06:31 114 H 18 122/90 99 02/11/22 06:15 114 H 18 122/90 99 02/11/22 06:00 114 H 17 122/90 99 02/11/22 05:45 114 H 19 117/81 100 02/11/22 05:31 112 H 19 117/81 100 02/11/22 05:30 114 H 7 L 117/81 100 02/11/22 05:15 117 H 18 117/81 99 02/11/22 05:01 117 H 18 117/81 100 02/11/22 04:45 116 H 18 117/81 99 02/11/22 04:31 117 H 18 117/81 99 02/11/22 04:15 117 H 19 117/81 100 02/11/22 04:00 99.1 F 117 H 116 H 19 117/81 98 02/11/22 03:45 118 H 19 124/81 99 02/11/22 03:31 118 H 18 124/81 100 02/11/22 03:15 119 H 18 124/81 99 02/11/22 03:01 117 H 23 124/81 99 02/11/22 02:45 118 H 20 124/81 99 02/11/22 02:31 120 H 21 124/81 99 02/11/22 02:15 120 H 21 124/81 99 02/11/22 02:00 120 H 20 124/81 98 02/11/22 01:45 122 H 24 136/110 98 02/11/22 01:31 124 H 22 136/110 99 02/11/22 01:15 123 H 21 136/110 99 02/11/22 01:01 123 H 22 136/110 98 02/11/22 00:45 125 H 22 136/110 99 02/11/22 00:38 125 H 136/110 98 02/11/22 00:31 127 H 22 136/110 98 02/11/22 00:15 127 H 23 136/110 98 02/11/22 00:01 131 H 26 H 136/110 96 02/11/22 00:00 99.1 F 118 H 118 H 20 99 02/10/22 23:45 128 H 27 H 123/87 98 02/10/22 23:31 125 H 20 123/87 99 02/10/22 23:15 122 H 20 123/87 99 02/10/22 23:02 126 H 22 123/87 98 02/10/22 23:01 126 H 22 123/87 99 02/10/22 22:48 126 H 20 123/87 98 02/10/22 22:45 125 H 20 123/87 98 02/10/22 22:31 126 H 20 123/87 98 02/10/22 22:15 127 H 17 98 02/10/22 22:00 130 H 22 106/71 98 02/10/22 21:45 130 H 24 106/71 98 02/10/22 21:31 120 H 19 106/71 96 02/10/22 21:15 116 H 20 106/71 99 02/10/22 21:01 120 H 21 106/71 98 02/10/22 20:45 117 H 19 106/71 98 02/10/22 20:31 118 H 21 106/71 99 02/10/22 20:20 125 H 14 99 02/10/22 20:15 119 H 19 106/71 99 02/10/22 20:00 120 H 20 106/71 98 02/10/22 19:45 121 H 22 116/74 99 02/10/22 19:39 120 H 21 99 02/10/22 19:35 99.7 F H 02/10/22 19:31 119 H 20 116/74 98 02/10/22 19:15 120 H 21 116/74 98 02/10/22 19:01 118 H 18 116/74 98 02/10/22 18:45 115 H 18 116/74 98 02/10/22 18:42 115 H 02/10/22 18:31 114 H 19 116/74 99 02/10/22 18:15 118 H 28 H 116/74 99 02/10/22 18:00 116 H 19 116/74 99 02/10/22 17:45 115 H 21 115/77 98 02/10/22 17:31 119 H 25 H 115/77 99 02/10/22 17:15 115 H 19 115/77 98 02/10/22 17:01 117 H 21 115/77 98 02/10/22 16:45 121 H 26 H 115/77 99 02/10/22 16:41 99.7 F H 02/10/22 16:31 118 H 21 115/77 98 02/10/22 16:20 97 02/10/22 16:15 118 H 20 115/77 98 02/10/22 16:00 120 H 22 115/77 02/10/22 15:45 119 H 22 107/71 98 02/10/22 15:36 119 H 139/92 98 02/10/22 15:31 120 H 23 107/71 98 02/10/22 15:15 125 H 22 107/71 98 02/10/22 15:01 122 H 24 107/71 98 02/10/22 14:45 121 H 24 139/92 97 02/10/22 14:31 123 H 25 H 114/75 96 02/10/22 14:15 119 H 21 107/71 96 02/10/22 14:00 123 H 21 114/75 97 - Physical Examination General: Other (Intubated and sedated) HEENT: Positive: Normocephaly, Mucus Membranes Moist Neck: Positive: neck supple, trachea midline Cardiac: Positive: Regular Rhythm, Tachycardia Lungs: Positive: Ventilated Respirations Neuro: Positive: Other (Sedated, intubated and mechanically ventilated.) Abdomen: Positive: Soft, Active Bowel Sounds Skin: Negative: Rash Musculoskeletal: No Fluid Collection Extremities: Absent: edema - Labs and Meds CBC 02/11/22 Range/Units 04:00 WBC 20.8 H (4.5-11.0) K/mm3 RBC 3.85 (3.65-5.03) M/mm3 Hgb 7.7 L (10.1-14.3) gm/dl Hct 24.5 L (30.3-42.9) % Plt Count 305 (140-440) K/mm3 Comprehensive Metabolic Panel 02/11/22 Range/Units 04:00 Sodium 148 H (137-145) mmol/L Potassium 3.3 L (3.6-5.0) mmol/L Chloride 100.1 (98-107) mmol/L Carbon Dioxide 39 H (22-30) mmol/L BUN 27 H (7-17) mg/dL Creatinine 0.5 L (0.6-1.2) mg/dL Glucose 218 H (65-100) mg/dL Calcium 8.3 L (8.4-10.2) mg/dL - Imaging and Cardiology Echo: report reviewed - Telemetry EKG Rhythm: Sinus Tachycardia - EKG Sinus rhythms and dysrhythmias: sinus tachycardia Myocardial infarction: septal SD (old age or ind
[2022-02-11] MEDS: cefTRIAXone/NS 2 GM/100 ML 2 GM/100 ML BAG IV SCH (17:21)
--- NOTE | 2022-02-11 18:29 | Progress Note ---
<CARLOSRADHANelson - Last Filed: 02/11/22 18:29> Assessment and Plan Assessment and plan: This is a 61 year old female with DM, Dementia, HLD, HTN admitted with DKA s/p cardiac arrest on 02/01 Neuro: Acute metabolic encephalopathy, h/o dementia -Neurology consulted, appreciate recommendations -Serouqul bid -RASS goal 0 to -1 -Reorientation as needed -As needed analgesia Cardiac: s/p PEA cardiac arrest on 02/01, SVT, h/o HLD and HTN -Cardiology consulted, appreciate recommendations -s/p cardiac arrest on 02/01 -Blood pressure monitoring per protocol -s/p Vasopressor support with Levophed -MAP goal greater than 65 -Echocardiogram LVEF 55 to 60% Respiratory: Acute hypoxic respiratory failure, ARDS -[facility] consulted, appreciate recommendations -Intubated on 02/01 with 7.0 OETT at 21 at the lips -A.m. vent settings: Assist-control Rate 12, tidal volume 350, PEEP 10, FiO2 40% -See RT notes for titration - 02/04 s/p Bronchoscopy at the bedside by [facility] -A.m. ABG and CXR noted -VAP bundle -SPO2 monitoring GI: Mod protein venu malnutrition -24 hours +1454 mL -PPI -NTR consulted for tube feedings -BR: Senokot S : Hypernatremia, hypokalemia -FWF 300 q4 -Monitor intake and output -Renally dose medications -Avoid nephrotoxic medications -s/p bicarbonate drip -Repleat potassium -Trend BMP ID: Sepsis, COVID 19 PUI, UTI, lactic acidosis -Presented with tachycardia, leukocytosis, pyuria on UA developed pancytopenia, hypotension, tachycardia -Antibiotic therapy with rocephin -UA consistent with pyuria, Blood cultures with NGTD -Sputum culture with Klebsiella Pneumoniae -f/u blood culture -Monitor WBC and temperature curve Endo: s/p DKA, h/o DM -Presented with severe metabolic acidosis, blood glucose in 300s -s/p insulin drip -Avoid hypoglycemia -Hemoglobin A1c 11.1 -SSI -Accu-Cheks q. every 6 -Long-acting insulin, titrate as needed Heme: Pancytopenia (resolved), ? BLE ischemia -Consider hem/onc if not improving -Bilateral lower extremity ultrasound negative for DVT -Bilateral lower extremity arterial duplex pending -Trend CBC -s/p 1 unit PRBC -Transfuse hemoglobin less than 7 -SCDs to BLE while in bed The high probability of a clinically significant, sudden or life threatening deterioration of the [endocrine, infectious disease] system(s) required my full and direct attention, intervention and personal management. The aggregate critical care time was [60] minutes. This time is in addition to time spent performing reported procedures but includes the following: [x] Data Review and interpretation [x] Patient assessment and monitoring of vital signs [x] Documentation [x] Medication orders and management Disposition Plan: icu Total Time Spent with Patient (Minutes): 60 History Interval history: This is a 61-year-old female is a resident of a [facility] with DM,, dementia (possibly Wernickes per daughter), hyperlipidemia, and hypertension who presents to the hospital on 01/31 from [facility] for hypoglycemia. In the ED patient was found to be tachycardic, tachypneic and lab work showed hyperkalemia, hyperchloremia, high anion gap metabolic acidosis with leukocytosis and UA showed pyuria. Patient was admitted to the hospitalist service. Hospital course to date: 02/01: patient was transferred to ICU as lab work was consistent with DKA and st arted on insulin drip. Central line placed for IV access. Patient was given bicarb push and started on a bicarb drip. She was also started on Rocephin due to UTI however antibiotics are broadened to cefepime and vancomycin. 02/02: s/p cardiac arrest on 02/01. Bicarbonate drip discontinued. Pancytopenia noted, anion gap closed and transitioned to SSI and long-acting insulin. Patient was having hypoglycemia this morning which has been corrected now. Started on tube feeding. Potassium and phosphorus will be repleted. Hypernatremia noted and FWF started with tube feedings. COVID-19 PCR pending. Venous Doppler ultrasound pending. Neurology and cardiology consulted. Echocardiogram pending. Patient currently on Levophed and sedated with propofol. Fentanyl added. Given 1 LR bolus this morning for hypotension. 02/03: LR bolus x2, remains on levophed, tachycardia and EKG completed which shows tachycardia. Increase in FiO2, Will culture with next temp spike. Will give 1 gm Calcium Gluconate. 02/04: S/p Bronch this am by CCM at the bedside. Patient still spiking high temp despite broad spectrum IV Abx. Remains on high pressors with worsen neutropenia and thrombocytopenia. Will panculture this am, antifungal culture was also ordered. Continue current empiric IV Abx for now, awaiting sensitivity. Will also consult ID for further eval. Possible Hematology consult for pancytopenia per CCM. Possible family meeting with [facility] this week, case management to arrange. 02/05: Back up on full support on the vent. CXR with worsen bilateral opacities, S/p X1 dose of IV lasix. Patient also received 1units of PRBCs overnight due to anemia, H&H stable this am and no s/s of any active bleeding. Patient remains pancytopenic, still febrile. IV abx changed to Merrem and Vanc per ID, hematolog y consult pending. ST with episodes of SVT this am, plan for amiodarone gtt per Cardio. Off pressors this am. BP remains boderline, 25% IV Albumin and X1 dose of additional IV lasix gain today per CCM. Continue FWF for hypernatremia. Lantus adjusted due to hypoglycemia. Possible family meeting tomorrow with [facility]. 02/06: Decompensated this am, sudden drop in SPO2 in the 80s, HR in the 50s, and MAP in the 40s. Back on 2 pressors, on 100% FIO2 and 12 of peep. Stat ABG pending, 1amp Bcarb given, stress dose steroids initiated. This an CXR reviewed with worsen opacities from prior. Patient remains on IV abx per ID. Hematology recommendations appreciated. Event discussed with [facility] who agreed with current intervention. Patient's daughter and sister were notified via phone. Current events, patient's diagnosis, overal condition, and poor prognosis were thoroughly discussed. GOC was also addressed with patient's daughter and sister, they voiced that if patient was able to speak for herself she would want all lifesaving measures, including CPR and medications if her heart stop. All questions and concerns were addressed at this time. They verbalized understanding and agreed with current care plan. Patient remains a FULL code status at This time. 02/07: Responded well to IV lasix and albumin overnight. CXR with some improvement today. IV lasix and albumin gain today per CCM. With increased WOB and tachpnea this am, low dose propofol added for RASS goal of 0 to -2. Wean FIO2 as tolerated for SPO2 goal above 92%. Worsen hyperglycemia this am, most like due to IV steroids, insulin therapy adjusted. Monitor and replace electrolytes as needed. Family meeting today with [facility], patient remains a FULL code status. 02/08: Tolerating gentle diurese. Patient missed overnight IV lasix/albumin dose, will repeat another dose this morning. Continue to wean Fio2 as tolerated. Remains off pressors, VSS. Concern for BLE ischemia probably due to hypoperfusion vs pressor use. Will check BLE arterial doppler to r/o occlusion. Possible Vascular Surgery consult dependent on doppler result. Lantus adjusted for persisting hyperglycemia. Electrolytes repleted, monitor and replace electrolytes as needed. 02/09: This am ABG and CXR with some improvement this am. Down to 55% Fio2 this am. Hypotensive overnight required short duration of Levophed gtt, pressor is off this am. Will hold on IV diuretic today. Continue to monitor for now. Electrolytes repleted, monitor and replace electrolytes as needed. Prior history of psych issues, seroquel added BID. BLE doppler pending. 02/10: Remains stable on the vent. Down to 40% Fio2 and peep of 10 this am, SPO2 above 95%, CXR is unchanged. Continue vent wean as tolerated. Remains on IV steroid, will start tapering tomorrow. Per [facility], plan is to optimize patient on the vent for possible trach and PEG. FWF increased for persistent hypernatremia. K and phos repleted. Continue to monitor and replace electrolytes as needed. 02/11: Water flush continued at 300 mL every 4, potassium repleted, remains on vasopressors. No acute events reported overnight. intiate seriod taper Hospitalist Physical - Constitutional Vitals: Temp Pulse Resp BP Pulse Ox 98.9 F 111 H 19 118/79 99 02/11/22 16:00 02/11/22 18:15 02/11/22 18:15 02/11/22 18:15 02/11/22 18:15 General appearance: Present: no acute distress, other (Remains on the vent) - EENT Eyes: Present: PERRL ENT: dentition normal - Neck Neck: Present: normal ROM - Respiratory Respiratory effort: normal Respiratory: bilateral: diminished - Cardiovascular Rhythm: regular Heart Sounds: Present: S1 & S2. Absent: systolic murmur, diastolic murmur - Extremities Extremities: pulses intact, pulses symmetrical Extremity abnormal: edema, cyanosis (left index finger), cold Peripheral Pulses: within normal limits - Abdominal General gastrointestinal: soft, non-tender, non-distended, normal bowel sounds - Integumentary Integumentary: Present: dry - Neurologic Neurologic: moves all extremities, other (does not follow commands) - Allied Health Allied health notes reviewed: nursing, RT, social work HEART Score - HEART Score Troponin: Troponin T < 0.010 ng/mL (0.00-0.029) 02/03/22 16:15 Results - Labs CBC & Chem 7: 02/11/22 04:00 02/11/22 04:00 Labs: Laboratory Last Values WBC 20.8 K/mm3 (4.5-11.0) H 02/11/22 04:00 RBC 3.85 M/mm3 (3.65-5.03) 02/11/22 04:00 Hgb 7.7 gm/dl (10.1-14.3) L 02/11/22 04:00 Hct 24.5 % (30.3-42.9) L 02/11/22 04:00 MCV 64 fl (79-97) L 02/11/22 04:00 MCH 20 pg (28-32) L 02/11/22 04:00 MCHC 31 % (30-34) 02/11/22 04:00 RDW 23.5 % (13.2-15.2) H 02/11/22 04:00 Plt Count 305 K/mm3 (140-440) 02/11/22 04:00 Lymph % (Auto) Cattle Shipper 02/02/22 04:00 Add Manual Diff Complete 02/03/22 04:00 Total Counted 50 02/03/22 04:00 Seg Neutrophils % Cattle Shipper 02/02/22 04:00 Seg Neuts % (Manual) 76.0 % (40.0-70.0) H 02/03/22 04:00 Band Neutrophils % 18.0 % 02/03/22 04:00 Lymphocytes % (Manual) 2.0 % (13.4-35.0) L 02/03/22 04:00 Reactive Lymphs % (Man) 0 % 02/03/22 04:00 Monocytes % (Manual) 4.0 % (0.0-7.3) 02/03/22 04:00 Eosinophils % (Manual) 0 % (0.0-4.3) 02/03/22 04:00 Basophils % (Manual) 0 % (0.0-1.8) 02/03/22 04:00 Metamyelocytes % 0 % 02/03/22 04:00 Myelocytes % 0 % 02/03/22 04:00 Promyelocytes % 0 % 02/03/22 04:00 Blast Cells % 0 % 02/03/22 04:00 Nucleated RBC % 4.0 % (0.0-0.9) H 02/03/22 04:00 Seg Neutrophils # Man 2.8 K/mm3 (1.8-7.7) 02/03/22 04:00 Band Neutrophils # 0.7 K/mm3 02/03/22 04:00 Lymphocytes # (Manual) 0.1 K/mm3 (1.2-5.4) L 02/03/22 04:00 Abs React Lymphs (Man) 0.0 K/mm3 02/03/22 04:00 Monocytes # (Manual) 0.1 K/mm3 (0.0-0.8) 02/03/22 04:00 Eosinophils # (Manual) 0.0 K/mm3 (0.0-0.4) 02/03/22 04:00 Basophils # (Manual) 0.0 K/mm3 (0.0-0.1) 02/03/22 04:00 Metamyelocytes # 0.0 K/mm3 02/03/22 04:00 Myelocytes # 0.0 K/mm3 02/03/22 04:00 Promyelocytes # 0.0 K/mm3 02/03/22 04:00 Blast Cells # 0.0 K/mm3 02/03/22 04:00 WBC Morphology Not Reportable 02/03/22 04:00 Hypersegmented Neuts Not Reportable 02/03/22 04:00 Hyposegmented Neuts Not Reportable 02/03/22 04:00 Hypogranular Neuts Not Reportable 02/03/22 04:00 Smudge Cells Not Reportable 02/03/22 04:00 Toxic Granulation Not Reportable 02/03/22 04:00 Toxic Vacuolation Not Reportable 02/03/22 04:00 Dohle Bodies Few 02/03/22 04:00 Pelger-Huet Anomaly Not Reportable 02/03/22 04:00 Sung Rods Not Reportable 02/03/22 04:00 Platelet Estimate Consistent w auto 02/03/22 04:00 Clumped Platelets Not Reportable 02/03/22 04:00 Plt Clumps, EDTA Not Reportable 02/03/22 04:00 Large Platelets Not Reportable 02/03/22 04:00 Giant Platelets Not Reportable 02/03/22 04:00 Platelet Satelliting Not Reportable 02/03/22 04:00 Plt Morphology Comment Not Reportable 02/03/22 04:00 RBC Morphology Not Reportable 02/03/22 04:00 Dimorphic RBCs Not Reportable 02/03/22 04:00 Polychromasia Not Reportable 02/03/22 04:00 Hypochromasia 3+ 02/03/22 04:00 Poikilocytosis 2+ 02/03/22 04:00 Anisocytosis 1+ 02/03/22 04:00 Microcytosis 2+ 02/03/22 04:00 Macrocytosis Not Reportable 02/03/22 04:00 Spherocytes Not Reportable 02/03/22 04:00 Pappenheimer Bodies Not Reportable 02/03/22 04:00 Sickle Cells Not Reportable 02/03/22 04:00 Target Cells 1+ 02/03/22 04:00 Tear Drop Cells Few 02/03/22 04:00 Ovalocytes Few 02/03/22 04:00 Helmet Cells Not Reportable 02/03/22 04:00 [place] Bodies Not Reportable 02/03/22 04:00 Ramsey Rings Not Reportable 02/03/22 04:00 Lesly Cells 1+ 02/03/22 04:00 Bite Cells Not Reportable 02/03/22 04:00 Crenated Cell Not Reportable 02/03/22 04:00 Elliptocytes Few 02/03/22 04:00 Acanthocytes (Spur) Not Reportable 02/03/22 04:00 Rouleaux Not Reportable 02/03/22 04:00 Hemoglobin C Crystals Not Reportable 02/03/22 04:00 Schistocytes Rare 02/03/22 04:00 Malaria parasites Not Reportable 02/03/22 04:00 Percent Retic 0.65 % (0.78-2.58) L 02/08/22 03:55 Sven Bodies Not Reportable 02/03/22 04:00 Hem Pathologist Commnt No 02/03/22 04:00 PT 14.8 Sec. (12.2-14.9) 02/05/22 08:48 INR 1.02 (0.87-1.13) 02/05/22 08:48 APTT 34.4 Sec. (24.2-36.6) 02/05/22 08:48 Fibrinogen 795 mg/dl (211-480) H 02/05/22 08:48 ABG pH 7.459 pH Units (7.350-7.450) H 02/11/22 05:57 POC ABG pCO2 37.3 mmHg (32.0-48.0) 02/02/22 04:49 ABG pCO2 59.7 mm Hg 02/11/22 05:57 POC ABG pO2 79.9 mmHg (83-108) L 02/02/22 04:49 ABG pO2 99.8 mm Hg (80.0-90.0) H 02/11/22 05:57 POC ABG HCO3 30.3 02/02/22 04:49 ABG HCO3 41.4 mmol/L (20.0-26.0) H 02/11/22 05:57 ABG O2 Saturation 97.5 % (95.0-99.0) 02/11/22 05:57 ABG O2 Content 10.3 (0.0-44) 02/11/22 05:57 POC ABG Base Excess 7.1 02/02/22 04:49 ABG Base Excess 15.9 mmol/L (-2.0-3.0) H 02/11/22 05:57 ABG Hemoglobin 7.5 gm/dl (12.0-16.0) L 02/11/22 05:57 ABG Oxyhemoglobin 96.0 (94-98) 02/02/22 04:49 ABG Carboxyhemoglobin 1.7 % (0.0-5.0) 02/11/22 05:57 ABG Methemoglobin 0.6 % (0.0-1.5) 02/11/22 05:57 ABG Sodium Not Reportable 02/02/22 04:49 ABG Potassium Not Reportable 02/02/22 04:49 ABG Chloride Not Reportable 02/02/22 04:49 ABG Glucose Not Reportable 02/02/22 04:49 Oxyhemoglobin 95.2 % (95.0-99.0) 02/11/22 05:57 Carboxyhemoglobin 0.2 (0.5-1.5) L 02/02/22 04:49 FiO2 40 % 02/11/22 05:57 FiO2 % 60.0 02/02/22 04:49 Sodium 148 mmol/L (137-145) H 02/11/22 04:00 Potassium 3.3 mmol/L (3.6-5.0) L 02/11/22 04:00 Chloride 100.1 mmol/L (98-107) 02/11/22 04:00 Carbon Dioxide 39 mmol/L (22-30) H 02/11/22 04:00 Anion Gap 12 mmol/L 02/11/22 04:00 BUN 27 mg/dL (7-17) H 02/11/22 04:00 Creatinine 0.5 mg/dL (0.6-1.2) L 02/11/22 04:00 Estimated GFR > 60 ml/min 02/11/22 04:00 BUN/Creatinine Ratio 54 % 02/11/22 04:00 Glucose 218 mg/dL (65-100) H 02/11/22 04:00 POC Glucose 157 mg/dL (70-105) H 02/11/22 17:15 Hemoglobin A1c 11.1 % (4-6) H 02/01/22 12:54 Lactic Acid 2.50 mmol/L (0.7-2.0) H* 02/06/22 11:50 Calcium 8.3 mg/dL (8.4-10.2) L 02/11/22 04:00 Phosphorus 3.40 mg/dL (2.5-4.5) D 02/11/22 04:00 Magnesium 2.30 mg/dL (1.7-2.3) 02/11/22 04:00 Total Bilirubin 0.30 mg/dL (0.1-1.2) 02/10/22 03:40 Direct Bilirubin < 0.2 mg/dL (0-0.2) 02/08/22 03:55 Indirect Bilirubin 0.0 mg/dL 02/08/22 03:55 AST 120 units/L (5-40) H 02/10/22 03:40 ALT 80 units/L (7-56) H 02/10/22 03:40 Alkaline Phosphatase 207 units/L (35-129) H 02/10/22 03:40 Lactate Dehydrogenase 879 units/L (91-180) H 02/05/22 04:40 Troponin T < 0.010 ng/mL (0.00-0.029) 02/03/22 16:15 Total Protein 5.3 g/dL (6.3-8.2) L 02/10/22 03:40 Albumin 2.4 g/dL (3.9-5) L 02/10/22 03:40 Albumin/Globulin Ratio 0.8 % 02/10/22 03:40 Arterial Blood Glucose Not Reportable 02/02/22 04:49 Urine Color Yellow (Yellow) 02/04/22 09:15 Urine Turbidity Cloudy (Clear) 02/04/22 09:15 Urine pH 6.0 (5.0-7.0) 02/04/22 09:15 Ur Specific [place] 1.025 (1.003-1.030) 02/04/22 09:15 Urine Protein >500 mg/dL (Negative) 02/04/22 09:15 Urine Glucose (UA) Negative mg/dL (Negative) 02/04/22 09:15 Urine Ketones Negative mg/dL (Negative) 02/04/22 09:15 Urine Blood Large (Negative) A 02/04/22 09:15 Urine Nitrite Negative (Negative) 02/04/22 09:15 Ur Reducing Substances Not Reportable 01/31/22 22:49 Urine Bilirubin Negative (Negative) 02/04/22 09:15 Urine Ictotest Not Reportable 01/31/22 22:49 Urine Urobilinogen < 2.0 mg/dL (<2.0) 02/04/22 09:15 Ur Leukocyte Esterase Negative (Negative) 02/04/22 09:15 Urine WBC (Auto) 12.0 /HPF (0.0-6.0) H 02/04/22 09:15 Urine RBC (Auto) 107.0 /HPF (0.0-6.0) 02/04/22 09:15 U Epithel Cells (Auto) 1.0 /HPF (0-13.0) 02/04/22 09:15 Urine Bacteria (Auto) 1+ /HPF (Negative) 02/04/22 09:15 Urine Mucus Few /HPF 02/04/22 09:15 Urine Yeast (Budding) 2+ /HPF 02/04/22 09:15 Vancomycin Trough 28.6 ug/mL (5.0-20.0) H 02/05/22 Unknown Coronavirus (PCR) Negative (Negative) 02/02/22 10:44 SARS-CoV-2 (PCR) Negative (Negative) 02/01/22 08:50 HIV 1&2 Antibody Rapid Non react (Non React) 02/04/22 14:37 HIV P24 Antigen Non react (Non React) 02/04/22 14:37 Blood Type A POSITIVE 02/04/22 20:22 Antibody Screen Negative 02/04/22 20:22 Crossmatch See Detail 02/04/22 20:22 Microbiology: Microbiology 02/04/22 14:37 Peripheral/Venous Blood Fungal Culture - Preliminary No Fungus Isolated At 1 week 02/04/22 14:37 Peripheral/Venous Blood Culture - Final NO GROWTH AFTER 5 DAYS 02/04/22 14:37 Peripheral/Venous Blood Fungal Culture - Preliminary No Fungus Isolated At 1 week Gastelum/IV: Voiding Method External Female Catheter Active Medications - Current Medications Current Medications: Generic Name Dose Route Start Last Admin Trade Name Freq PRN Reason Stop Dose Admin Acetaminophen 650 mg 02/01/22 00:57 02/04/22 11:58 Acetaminophen 325 Mg Tab PO 650 mg Q4H PRN Administration Pain MILD(1-3)/Fever >100.5/ROSADO Albuterol 2.5 mg 02/01/22 00:57 Albuterol 2.5 Mg/3 Ml Nebu IH Q3HRT PRN Shortness Of Breath Lipase/Protease/Amylase 1 each 02/02/22 08:08 Lipase 10,500/Protease 25,000/Amylase 43,750 (Units) Dr Avelar FEEDTUBE PRN PRN For Clogged Feeding Tube Atorvastatin Calcium 20 mg 02/03/22 22:00 02/10/22 21:17 Atorvastatin 20 Mg Tab FEEDTUBE 20 mg QHS JAMIL Administration Dextrose 50 ml 02/02/22 08:00 02/05/22 11:52 Dextrose 50% In Water (25gm) 50 Ml Syringe IV 25 ml Q30MIN PRN Administration Hypoglycemia Protocol Docusate Sodium 100 mg 02/07/22 10:00 02/11/22 09:31 Docusate Sodium 100 Mg/10 Ml Oral Liqd PO 100 mg BID JAMIL Administration Famotidine 20 mg 02/04/22 10:00 02/11/22 09:32 Famotidine 20 Mg Tab FEEDTUBE 20 mg BID JAMIL Administration Fentanyl 50 mcg 02/02/22 09:45 02/08/22 05:49 Fentanyl 100 Mcg/2 Ml Inj IV 50 mcg Q10MIN PRN Administration ANALGESIA Hydrocortisone Sodium Succinate 100 mg 02/11/22 22:00 Hydrocortisone Sod Succ 100 Mg/2 Ml Vial IV Q12HR JAMIL Hydrophilic Ointment 1 applic 02/01/22 18:52 Lip Therapy Vaseline TP Q2HR PRN Dry Lips NORepinephrine/NS 8 MG-250 ML 8 mg in 250 mls @ 3.75 mls/hr 02/01/22 20:00 02/07/22 19:18 Norepinephrine/Ns 8 Mg-250 Ml (Double Conc) IV 0 mcg/min TITRATE JAMIL 0 mls/hr Titration Protocol 2 MCG/MIN Propofol 1,000 mg in 100 mls @ 1.429 mls/hr 02/01/22 19:17 02/08/22 16:30 Diprivan 10 Mg/Ml IV 0 mcg/kg/min TITR JAMIL 0 mls/hr Titration Protocol 5 MCG/KG/MIN Fentanyl Citrate 2,000 mcg in 100 mls @ 2.381 mls/hr 02/02/22 10:00 02/11/22 07:00 Fentanyl Drip Premix IV 2 mcg/kg/hr TITR JAMIL 4.763 mls/hr Titration Protocol 1 MCG/KG/HR Phenylephrine HCl 100 mg/ 100 mls @ 3 mls/hr 02/03/22 14:15 02/07/22 19:18 Sodium Chloride IV 0 mcg/min TITR JAMIL 0 mls/hr Titration Protocol 50 MCG/MIN Sodium Chloride 500 mls @ 5 mls/hr 02/04/22 03:00 02/08/22 05:21 Nacl 0.9% 500 Ml IV 5 mls/hr DIRECT JAMIL Administration Vasopressin 20 unit/ Sodium 101 mls @ 9.09 mls/hr 02/04/22 09:15 02/07/22 19:18 Chloride IV 0 units/min TITR JAMIL 0 mls/hr Titration Protocol 0.03 UNITS/MIN Insulin Glargine 35 units 02/09/22 22:00 02/10/22 21:18 Insulin Glargine 100 Units/Ml SUB-Q 35 units QHS JAMIL Administration Insulin Human Regular 0 units 02/02/22 18:00 02/11/22 17:22 Insulin Regular, Human 100 Units/1 Ml SUB-Q 3 units Q6H JAMIL Administration Protocol Multi-Ingred Cream/Lotion/Oil/Oint 1 applic 02/01/22 18:52 Mineral Oil/Petrolatum, White Ophth Oint 3.5 Gm OU Q4HR PRN Dry Eye(s) Nitroglycerin 0.5 inch 02/11/22 14:00 02/11/22 13:44 Nitroglycerin 2% Oint 1 Gm TP 0.5 inch BIDNTG JAMIL Administration Protocol Ondansetron HCl 4 mg 02/01/22 00:57 Ondansetron 4 Mg/2 Ml Inj IV Q8H PRN Nausea And Vomiting Quetiapine Fumarate 50 mg 02/09/22 10:00 02/11/22 09:31 Quetiapine 25 Mg Tab PO 50 mg BID JAMIL Administration Senna/Docusate Sodium 2 tab 02/07/22 10:00 02/11/22 09:30 Sennosides/Docusate Sodium 8.6/50 Mg Tab PO 2 tab Q12H JAMIL Administration Simple Syrup 15 ml 02/02/22 08:08 Simple Syrup 15 Ml FEEDTUBE PRN PRN Hypoglycemia Simple Syrup 30 ml 02/02/22 08:08 Simple Syrup 15 Ml FEEDTUBE PRN PRN Hypoglycemia Sodium Bicarbonate 325 mg 02/02/22 08:08 Sodium Bicarbonate 325 Mg Tab FEEDTUBE PRN PRN For Clogged Feeding Tube Sodium Chloride 10 ml 02/01/22 10:00 02/11/22 09:32 Sodium Chloride 0.9% 10 Ml Flush Syringe IV 10 ml BID JAMIL Administration Sodium Chloride 10 ml 02/01/22 00:57 02/09/22 05:59 Sodium Chloride 0.9% 10 Ml Flush Syringe IV 10 ml PRN PRN Administration LINE FLUSH Nutrition/Malnutrition Assess - Dietary Evaluation Nutrition/Malnutrition Findings: Nutrition Notes Start: 02/01/22 17:50 Freq: Status: Active Protocol: Document 02/06/22 09:48 JACQUELINE (Rec: 02/06/22 10:15 JACQUELINE [id number]) Nutrition Notes Initial or Follow up Brief Note Current Diagnosis Diabetes,Sepsis,Respiratory Failure Other Pertinent Diagnosis s/p DKA, s/p PEA Arrest, Pneumonia, Pyuria, Pancytopenia, UTI, ... Current Diet TF-Glucerna 1.2 Venu @ 55 ml/hr (since L 02/04). Labs/Tests 02/06: Na 146, K 3.4, CO2 31, BUN 21, Glu 230. Pertinent Medications 02/06: Humulin R 4U, KCl 10mEq , others nutritionally unremarkable. Height 5 ft 4 in Weight 46.5 kg Dexter Body Weight (kg) 54.54 BMI 17.6 Weight change and time frame 0.2 Kg body weight loss reported in 2 days. Weight Status Underweight Subjective/Other Information RD consult for TF tolerance/ continuation. TF continues as prescribed, and well tolerated, according to RN notes. RN note on 02/05/22 03:49: 08/2021 0040 I hung new container TF glucerna @ 55 ml/ hr with FWF container rate @ FWF 100 ml q4hr, see financial manager notes, to OGT. - END OF NOTE. Pt remains on Mechanical Ventilation, O2 saturation @ 96%, according to Physical Assessment History notes. Pt remains incontinent, according to Physical Assessment History notes. Percent of energy/protein needs met: Prescribed TF-Glucerna 1.2 Venu @ 55 ml/hr provides for energy/protein needs (1584 Kcal/79 g) during LOS, 97% Kcal; 100% AA. #1 Nutrition Diagnosis Inadequate oral intake Diagnosis Progress(for reassessment Continues documentation) Is patient on ventilator? Yes Is Patient Ambulatory and/or Out of Bed No REE-([place]-confined to bed) 1235.112 Kcal/Kg value to use for calculation 35 Approximate Energy Requirements Using 1628 kcal/Kg Calculation Used for Recommendations Kcal/kg Additional Notes Protein: 1.2-2 g/Kg ABW; 56-93 g/day. Fluids: 1 ml/Kcal, or as per MD. Nutrition Intervention Nutrition Support: Continue TF-Glucerna 1.2 Venu @ 55 ml/hr. Flush: 250 ml water Q 4 hr while hypernatremia persists, resume to 100 ml when Na is WNL. Kcal 1,584 Protein (gm) 79 Carbohydrates (gm) 151 Fat (gm) 79 Fluid (mL) 1,063 Fiber (gm) 21 % RDI: 97% Kcal; 100% AA. Goal #1 Provide at least 75% of energy /protein needs through Enteral Feeding during LOS. Follow-Up By: 02/13/22 Additional Comments Continue monitoring TF tolerance, Mechanical Ventilation, Hypernatremia, and BM. <MELISSA WHITE - Last Filed: 02/12/22 11:47> History Interval history: I saw and evaluated the patient. I agree with the findings and the plan of care as documented in the Nurse Practitioner's~note, with the following corrections and additions. Hospitalist Physical - Constitutional Vitals: Temp Pulse Resp BP Pulse Ox 98.5 F 110 H 22 141/92 100 02/12/22 08:00 02/12/22 10:00 02/12/22 10:00 02/12/22 10:00 02/12/22 10:00 HEART Score - HEART Score Troponin: Troponin T < 0.010 ng/mL (0.00-0.029) 02/03/22 16:15 Results - Labs CBC & Chem 7: 02/12/22 04:17 02/12/22 04:17 Labs: Laboratory Last Values WBC 23.9 K/mm3 (4.5-11.0) H 02/12/22 04:17 RBC 3.78 M/mm3 (3.65-5.03) 02/12/22 04:17 Hgb 7.5 gm/dl (10.1-14.3) L 02/12/22 04:17 Hct 24.2 % (30.3-42.9) L 02/12/22 04:17 MCV 64 fl (79-97) L 02/12/22 04:17 MCH 20 pg (28-32) L 02/12/22 04:17 MCHC 31 % (30-34) 02/12/22 04:17 RDW 25.5 % (13.2-15.2) H 02/12/22 04:17 Plt Count 394 K/mm3 (140-440) 02/12/22 04:17 Lymph % (Auto) Cattle Shipper 02/02/22 04:00 Add Manual Diff Complete 02/03/22 04:00 Total Counted 50 02/03/22 04:00 Seg Neutrophils % Cattle Shipper 02/02/22 04:00 Seg Neuts % (Manual) 76.0 % (40.0-70.0) H 02/03/22 04:00 Band Neutrophils % 18.0 % 02/03/22 04:00 Lymphocytes % (Manual) 2.0 % (13.4-35.0) L 02/03/22 04:00 Reactive Lymphs % (Man) 0 % 02/03/22 04:00 Monocytes % (Manual) 4.0 % (0.0-7.3) 02/03/22 04:00 Eosinophils % (Manual) 0 % (0.0-4.3) 02/03/22 04:00 Basophils % (Manual) 0 % (0.0-1.8) 02/03/22 04:00 Metamyelocytes % 0 % 02/03/22 04:00 Myelocytes % 0 % 02/03/22 04:00 Promyelocytes % 0 % 02/03/22 04:00 Blast Cells % 0 % 02/03/22 04:00 Nucleated RBC % 4.0 % (0.0-0.9) H 02/03/22 04:00 Seg Neutrophils # Man 2.8 K/mm3 (1.8-7.7) 02/03/22 04:00 Band Neutrophils # 0.7 K/mm3 02/03/22 04:00 Lymphocytes # (Manual) 0.1 K/mm3 (1.2-5.4) L 02/03/22 04:00 Abs React Lymphs (Man) 0.0 K/mm3 02/03/22 04:00 Monocytes # (Manual) 0.1 K/mm3 (0.0-0.8) 02/03/22 04:00 Eosinophils # (Manual) 0.0 K/mm3 (0.0-0.4) 02/03/22 04:00 Basophils # (Manual) 0.0 K/mm3 (0.0-0.1) 02/03/22 04:00 Metamyelocytes # 0.0 K/mm3 02/03/22 04:00 Myelocytes # 0.0 K/mm3 02/03/22 04:00 Promyelocytes # 0.0 K/mm3 02/03/22 04:00 Blast Cells # 0.0 K/mm3 02/03/22 04:00 WBC Morphology Not Reportable 02/03/22 04:00 Hypersegmented Neuts Not Reportable 02/03/22 04:00 Hyposegmented Neuts Not Reportable 02/03/22 04:00 Hypogranular Neuts Not Reportable 02/03/22 04:00 Smudge Cells Not Reportable 02/03/22 04:00 Toxic Granulation Not Reportable 02/03/22 04:00 Toxic Vacuolation Not Reportable 02/03/22 04:00 Dohle Bodies Few 02/03/22 04:00 Pelger-Huet Anomaly Not Reportable 02/03/22 04:00 Sung Rods Not Reportable 02/03/22 04:00 Platelet Estimate Consistent w auto 02/03/22 04:00 Clumped Platelets Not Reportable 02/03/22 04:00 Plt Clumps, EDTA Not Reportable 02/03/22 04:00 Large Platelets Not Reportable 02/03/22 04:00 Giant Platelets Not Reportable 02/03/22 04:00 Platelet Satelliting Not Reportable 02/03/22 04:00 Plt Morphology Comment Not Reportable 02/03/22 04:00 RBC Morphology Not Reportable 02/03/22 04:00 Dimorphic RBCs Not Reportable 02/03/22 04:00 Polychromasia Not Reportable 02/03/22 04:00 Hypochromasia 3+ 02/03/22 04:00 Poikilocytosis 2+ 02/03/22 04:00 Anisocytosis 1+ 02/03/22 04:00 Microcytosis 2+ 02/03/22 04:00 Macrocytosis Not Reportable 02/03/22 04:00 Spherocytes Not Reportable 02/03/22 04:00 Pappenheimer Bodies Not Reportable 02/03/22 04:00 Sickle Cells Not Reportable 02/03/22 04:00 Target Cells 1+ 02/03/22 04:00 Tear Drop Cells Few 02/03/22 04:00 Ovalocytes Few 02/03/22 04:00 Helmet Cells Not Reportable 02/03/22 04:00 [place] Bodies Not Reportable 02/03/22 04:00 [place] Rings Not Reportable 02/03/22 04:00 Lesly Cells 1+ 02/03/22 04:00 Bite Cells Not Reportable 02/03/22 04:00 Crenated Cell Not Reportable 02/03/22 04:00 Elliptocytes Few 02/03/22 04:00 Acanthocytes (Spur) Not Reportable 02/03/22 04:00 Rouleaux Not Reportable 02/03/22 04:00 Hemoglobin C Crystals Not Reportable 02/03/22 04:00 Schistocytes Rare 02/03/22 04:00 Malaria parasites Not Reportable 02/03/22 04:00 Percent Retic 0.65 % (0.78-2.58) L 02/08/22 03:55 Sven Bodies Not Reportable 02/03/22 04:00 Hem Pathologist Commnt No 02/03/22 04:00 PT 14.8 Sec. (12.2-14.9) 02/05/22 08:48 INR 1.02 (0.87-1.13) 02/05/22 08:48 APTT 34.4 Sec. (24.2-36.6) 02/05/22 08:48 Fibrinogen 795 mg/dl (211-480) H 02/05/22 08:48 ABG pH 7.467 pH Units (7.350-7.450) H 02/12/22 05:00 POC ABG pCO2 37.3 mmHg (32.0-48.0) 02/02/22 04:49 ABG pCO2 57.6 mm Hg 02/12/22 05:00 POC ABG pO2 79.9 mmHg (83-108) L 02/02/22 04:49 ABG pO2 97.9 mm Hg (80.0-90.0) H 02/12/22 05:00 POC ABG HCO3 30.3 02/02/22 04:49 ABG HCO3 40.7 mmol/L (20.0-26.0) H 02/12/22 05:00 ABG O2 Saturation 97.4 % (95.0-99.0) 02/12/22 05:00 ABG O2 Content 10.2 (0.0-44) 02/12/22 05:00 POC ABG Base Excess 7.1 02/02/22 04:49 ABG Base Excess 15.3 mmol/L (-2.0-3.0) H 02/12/22 05:00 ABG Hemoglobin 7.5 gm/dl (12.0-16.0) L 02/12/22 05:00 ABG Oxyhemoglobin 96.0 (94-98) 02/02/22 04:49 ABG Carboxyhemoglobin 1.7 % (0.0-5.0) 02/12/22 05:00 ABG Methemoglobin 0.6 % (0.0-1.5) 02/12/22 05:00 ABG Sodium Not Reportable 02/02/22 04:49 ABG Potassium Not Reportable 02/02/22 04:49 ABG Chloride Not Reportable 02/02/22 04:49 ABG Glucose Not Reportable 02/02/22 04:49 Oxyhemoglobin 95.2 % (95.0-99.0) 02/12/22 05:00 Carboxyhemoglobin 0.2 (0.5-1.5) L 02/02/22 04:49 FiO2 40 % 02/12/22 05:00 FiO2 % 60.0 02/02/22 04:49 Sodium 146 mmol/L (137-145) H 02/12/22 04:17 Potassium 3.8 mmol/L (3.6-5.0) 02/12/22 04:17 Chloride 100.1 mmol/L (98-107) 02/12/22 04:17 Carbon Dioxide 39 mmol/L (22-30) H 02/12/22 04:17 Anion Gap 11 mmol/L 02/12/22 04:17 BUN 25 mg/dL (7-17) H 02/12/22 04:17 Creatinine 0.4 mg/dL (0.6-1.2) L 02/12/22 04:17 Estimated GFR > 60 ml/min 02/12/22 04:17 BUN/Creatinine Ratio 63 % 02/12/22 04:17 Glucose 135 mg/dL (65-100) H 02/12/22 04:17 POC Glucose 114 mg/dL (70-105) H 02/12/22 05:53 Hemoglobin A1c 11.1 % (4-6) H 02/01/22 12:54 Lactic Acid 2.50 mmol/L (0.7-2.0) H* 02/06/22 11:50 Calcium 8.4 mg/dL (8.4-10.2) 02/12/22 04:17 Phosphorus 3.40 mg/dL (2.5-4.5) D 02/11/22 04:00 Magnesium 2.30 mg/dL (1.7-2.3) 02/11/22 04:00 Total Bilirubin 0.30 mg/dL (0.1-1.2) 02/10/22 03:40 Direct Bilirubin < 0.2 mg/dL (0-0.2) 02/08/22 03:55 Indirect Bilirubin 0.0 mg/dL 02/08/22 03:55 AST 120 units/L (5-40) H 02/10/22 03:40 ALT 80 units/L (7-56) H 02/10/22 03:40 Alkaline Phosphatase 207 units/L (35-129) H 02/10/22 03:40 Lactate Dehydrogenase 879 units/L (91-180) H 02/05/22 04:40 Troponin T < 0.010 ng/mL (0.00-0.029) 02/03/22 16:15 Total Protein 5.3 g/dL (6.3-8.2) L 02/10/22 03:40 Albumin 2.4 g/dL (3.9-5) L 02/10/22 03:40 Albumin/Globulin Ratio 0.8 % 02/10/22 03:40 Arterial Blood Glucose Not Reportable 02/02/22 04:49 Urine Color Yellow (Yellow) 02/04/22 09:15 Urine Turbidity Cloudy (Clear) 02/04/22 09:15 Urine pH 6.0 (5.0-7.0) 02/04/22 09:15 Ur Specific [place] 1.025 (1.003-1.030) 02/04/22 09:15 Urine Protein >500 mg/dL (Negative) 02/04/22 09:15 Urine Glucose (UA) Negative mg/dL (Negative) 02/04/22 09:15 Urine Ketones Negative mg/dL (Negative) 02/04/22 09:15 Urine Blood Large (Negative) A 02/04/22 09:15 Urine Nitrite Negative (Negative) 02/04/22 09:15 Ur Reducing Substances Not Reportable 01/31/22 22:49 Urine Bilirubin Negative (Negative) 02/04/22 09:15 Urine Ictotest Not Reportable 01/31/22 22:49 Urine Urobilinogen < 2.0 mg/dL (<2.0) 02/04/22 09:15 Ur Leukocyte Esterase Negative (Negative) 02/04/22 09:15 Urine WBC (Auto) 12.0 /HPF (0.0-6.0) H 02/04/22 09:15 Urine RBC (Auto) 107.0 /HPF (0.0-6.0) 02/04/22 09:15 U Epithel Cells (Auto) 1.0 /HPF (0-13.0) 02/04/22 09:15 Urine Bacteria (Auto) 1+ /HPF (Negative) 02/04/22 09:15 Urine Mucus Few /HPF 02/04/22 09:15 Urine Yeast (Budding) 2+ /HPF 02/04/22 09:15 Vancomycin Trough 28.6 ug/mL (5.0-20.0) H 02/05/22 Unknown Coronavirus (PCR) Negative (Negative) 02/02/22 10:44 SARS-CoV-2 (PCR) Negative (Negative) 02/01/22 08:50 HIV 1&2 Antibody Rapid Non react (Non React) 02/04/22 14:37 HIV P24 Antigen Non react (Non React) 02/04/22 14:37 Blood Type A POSITIVE 02/04/22 20:22 Antibody Screen Negative 02/04/22 20:22 Crossmatch See Detail 02/04/22 20:22 Microbiology: Microbiology 02/04/22 14:37 Peripheral/Venous Blood Fungal Culture - Preliminary No Fungus Isolated At 1 week 02/04/22 14:37 Peripheral/Venous Blood Culture - Final NO GROWTH AFTER 5 DAYS 02/04/22 14:37 Peripheral/Venous Blood Fungal Culture - Preliminary No Fungus Isolated At 1 week Gastelum/IV: Voiding Method External Female Catheter Active Medications - Current Medications Current Medications: Generic Name Dose Route Start Last Admin Trade Name Freq PRN Reason Stop Dose Admin Acetaminophen 650 mg 02/01/22 00:57 02/04/22 11:58 Acetaminophen 325 Mg Tab PO 650 mg Q4H PRN Administration Pain MILD(1-3)/Fever >100.5/ROSADO Albuterol 2.5 mg 02/01/22 00:57 Albuterol 2.5 Mg/3 Ml Nebu IH Q3HRT PRN Shortness Of Breath Lipase/Protease/Amylase 1 each 02/02/22 08:08 Lipase 10,500/Protease 25,000/Amylase 43,750 (Units) Dr Cap FEEDTUBE PRN PRN For Clogged Feeding Tube Atorvastatin Calcium 20 mg 02/03/22 22:00 02/11/22 21:23 Atorvastatin 20 Mg Tab FEEDTUBE 20 mg QHS JAMIL Administration Dextrose 50 ml 02/02/22 08:00 02/05/22 11:52 Dextrose 50% In Water (25gm) 50 Ml Syringe IV 25 ml Q30MIN PRN Administration Hypoglycemia Protocol Famotidine 20 mg 02/04/22 10:00 02/12/22 09:17 Famotidine 20 Mg Tab FEEDTUBE 20 mg BID JAMIL Administration Fentanyl 50 mcg 02/02/22 09:45 02/12/22 11:25 Fentanyl 100 Mcg/2 Ml Inj IV 50 mcg Q10MIN PRN Administration ANALGESIA Fentanyl 50 mcg 02/12/22 10:11 Fentanyl 100 Mcg/2 Ml Inj IV Q2H PRN VENT SYNCHRONY/AGITATION Hydrocortisone Sodium Succinate 50 mg 02/11/22 20:00 02/12/22 03:43 Hydrocortisone Sod Succ 100 Mg/2 Ml Vial IV 50 mg Q8H JAMIL Administration Hydrophilic Ointment 1 applic 02/01/22 18:52 Lip Therapy Vaseline TP Q2HR PRN Dry Lips NORepinephrine/NS 8 MG-250 ML 8 mg in 250 mls @ 3.75 mls/hr 02/01/22 20:00 02/07/22 19:18 Norepinephrine/Ns 8 Mg-250 Ml (Double Conc) IV 0 mcg/min TITRATE JAMIL 0 mls/hr Titration Protocol 2 MCG/MIN Propofol 1,000 mg in 100 mls @ 1.429 mls/hr 02/01/22 19:17 02/08/22 16:30 Diprivan 10 Mg/Ml IV 0 mcg/kg/min TITR JAMIL 0 mls/hr Titration Protocol 5 MCG/KG/MIN Fentanyl Citrate 2,000 mcg in 100 mls @ 2.381 mls/hr 02/02/22 10:00 02/12/22 09:10 Fentanyl Drip Premix IV 0 mcg/kg/hr TITR JAMIL 0 mls/hr Titration Protocol 1 MCG/KG/HR Phenylephrine HCl 100 mg/ 100 mls @ 3 mls/hr 02/03/22 14:15 02/07/22 19:18 Sodium Chloride IV 0 mcg/min TITR JAMIL 0 mls/hr Titration Protocol 50 MCG/MIN Sodium Chloride 500 mls @ 5 mls/hr 02/04/22 03:00 02/08/22 05:21 Nacl 0.9% 500 Ml IV 5 mls/hr DIRECT JAMIL Administration Vasopressin 20 unit/ Sodium 101 mls @ 9.09 mls/hr 02/04/22 09:15 02/07/22 19:18 Chloride IV 0 units/min TITR JAMIL 0 mls/hr Titration Protocol 0.03 UNITS/MIN Insulin Glargine 20 units 02/12/22 22:00 Insulin Glargine 100 Units/Ml SUB-Q QHS JAMIL Insulin Human Regular 0 units 02/02/22 18:00 02/12/22 05:55 Insulin Regular, Human 100 Units/1 Ml SUB-Q Not Given Q6H [facility] Protocol Multi-Ingred Cream/Lotion/Oil/Oint 1 applic 02/01/22 18:52 Mineral Oil/Petrolatum, White Ophth Oint 3.5 Gm OU Q4HR PRN Dry Eye(s) Nitroglycerin 0.5 inch 02/11/22 14:00 02/12/22 08:00 Nitroglycerin 2% Oint 1 Gm TP 0.5 inch BIDNTG JAMIL Administration Protocol Ondansetron HCl 4 mg 02/01/22 00:57 Ondansetron 4 Mg/2 Ml Inj IV Q8H PRN Nausea And Vomiting Quetiapine Fumarate 50 mg 02/09/22 10:00 02/12/22 10:23 Quetiapine 25 Mg Tab PO 50 mg BID JAMIL Administration Senna/Docusate Sodium 2 tab 02/07/22 10:00 02/12/22 10:24 Sennosides/Docusate Sodium 8.6/50 Mg Tab PO Not Given Q12H JAMIL Simple Syrup 15 ml 02/02/22 08:08 Simple Syrup 15 Ml FEEDTUBE PRN PRN Hypoglycemia Simple Syrup 30 ml 02/02/22 08:08 Simple Syrup 15 Ml FEEDTUBE PRN PRN Hypoglycemia Sodium Bicarbonate 325 mg 02/02/22 08:08 Sodium Bicarbonate 325 Mg Tab FEEDTUBE PRN PRN For Clogged Feeding Tube Sodium Chloride 10 ml 02/01/22 10:00 02/12/22 09:18 Sodium Chloride 0.9% 10 Ml Flush Syringe IV 10 ml BID JAMIL Administration Sodium Chloride 10 ml 02/01/22 00:57 02/09/22 05:59 Sodium Chloride 0.9% 10 Ml Flush Syringe IV 10 ml PRN PRN Administration LINE FLUSH Nutrition/Malnutrition Assess - Dietary Evaluation Nutrition/Malnutrition Findings: Nutrition Notes Start: 02/01/22 17:50 Freq: Status: Active Protocol: Document 02/06/22 09:48 JACQUELINE (Rec: 02/06/22 10:15 JACQUELINE [id number]) Nutrition Notes Initial or Follow up Brief Note Current Diagnosis Diabetes,Sepsis,Respiratory Failure Other Pertinent Diagnosis s/p DKA, s/p PEA Arrest, Pneumonia, Pyuria, Pancytopenia, UTI, ... Current Diet TF-Glucerna 1.2 Venu @ 55 ml/hr (since L 02/04). Labs/Tests 02/06: Na 146, K 3.4, CO2 31, BUN 21, Glu 230. Pertinent Medications 02/06: Humulin R 4U, KCl 10mEq , others nutritionally unremarkable. Height 5 ft 4 in Weight 46.5 kg Dexter Body Weight (kg) 54.54 BMI 17.6 Weight change and time frame 0.2 Kg body weight loss reported in 2 days. Weight Status Underweight Subjective/Other Information RD consult for TF tolerance/ continuation. TF continues as prescribed, and well tolerated, according to RN notes. RN note on 02/05/22 03:49: 08/2021 0040 I hung new container TF glucerna @ 55 ml/ hr with FWF container rate @ FWF 100 ml q4hr, see financial manager notes, to OGT. - END OF NOTE. Pt remains on Mechanical Ventilation, O2 saturation @ 96%, according to Physical Assessment History notes. Pt remains incontinent, according to Physical Assessment History notes. Percent of energy/protein needs met: Prescribed TF-Glucerna 1.2 Venu @ 55 ml/hr provides for energy/protein needs (1584 Kcal/79 g) during LOS, 97% Kcal; 100% AA. #1 Nutrition Diagnosis Inadequate oral intake Diagnosis Progress(for reassessment Continues documentation) Is patient on ventilator? Yes Is Patient Ambulatory and/or Out of Bed No REE-([place]-[facility]. Jeor-confined to bed) 1235.112 Kcal/Kg value to use for calculation 35 Approximate Energy Requirements Using 1628 kcal/Kg Calculation Used for Recommendations Kcal/kg Additional Notes Protein: 1.2-2 g/Kg ABW; 56-93 g/day. Fluids: 1 ml/Kcal, or as per MD. Nutrition Intervention Nutrition Support: Continue TF-Glucerna 1.2 Venu @ 55 ml/hr. Flush: 250 ml water Q 4 hr while hypernatremia persists, resume to 100 ml when Na is WNL. Kcal 1,584 Protein (gm) 79 Carbohydrates (gm) 151 Fat (gm) 79 Fluid (mL) 1,063 Fiber (gm) 21 % RDI: 97% Kcal; 100% AA. Goal #1 Provide at least 75% of energy /protein needs through Enteral Feeding during LOS. Follow-Up By: 02/13/22 Additional Comments Continue monitoring TF tolerance, Mechanical Ventilation, Hypernatremia, and BM.
--- NOTE | 2022-02-11 18:31 | Progress Note ---
Assessment and Plan 02/11/22: Will drop steroids to 50q8. Will drop PEEP to 8. Once PEEP at 6 , then consult surgery fro trach and peg unless off sedation mental state is better and she can tolerate PSV to assess if able for conventional extubation. Prognosis still remains guarded but improved now that pulmonary status has improved. 02/08/22: Please do not attempt to wean PEEP unless it is compromising clinical state (breath stacking, auto peep, hypotension, etc). Patient is in full blown ARDS needs increased levels of PEEP to help with oxygenation. Now that BP is better, if no improvement would even consider increasing PEEP if needed. Discussed with RT today. Spoke with nursing and [employer] OPERATOR about feet, will obtain arterial dopplers. Hopeful there is no occlusion as given her pancytopenia, not sure that she would be a candidate for anticoagulation. Reviewed [facility] as she was in [place] at least 3x prior to transfer here, twice during the month of January for DKA. She does have a diagnsosis of schizoaffective disorder. Could not find any meds for this. Will try some BID seroquel and see if this helps with mental state. Increases in sedation have not improved respiratory pattern. Patient did not get albumin and lasix last night but did get this am. Repeat CXR in the morning as well as ABG. If patient's alkalemia worsens would stop. Also given improvement in BP would start to wean stress dose steroids. She does have a diagnosis of HTN along with her diabetes and Dementia and Schizoaffective disorder. Also from reviewing the charts at [facility], patient is/was very noncompliant with diabetic regimen so some of her mental state could be vascular disease related to uncontrolled diabetes too. Overall prognosis is guarded. 02/07/22: Family meeting today, please see my event note. albumin and lasix again this morning and then again tonight. Continue steroids. May need insulin drip. Guarded prognosis. 02/06/22: Overall prognosis continues to worsen. She did respond to albumin and lasix with good urine output. Will give again tonight. Bronch results are negative and repeat cultures are negative. CXR continues to be consistent with ARDS. This could be AIP. Now on steroids so will see how she responds. Unfortunately I was not able to meet with the family today but plan to meet with them at 11 tomorrow. appreciate heme help. Given her response to steroids BP salazar, if this is truly acute interstitial pneumonitis, may consider pulse dose steroids. Will discuss with family risks of this as well. 02/05/22: Follow up bronch results. Appreciate ID assistance and changing of abx therapy. COntinue high PEEP and small TV. Ok with permissive hypercapnea as long as pH is >7.2. Follow up heme assessment. Has Kleib in tracheal aspirate. Follow up blood cultures. Will meet with family tomorrow. Overall prognosis is guarded to poor. 02/04/22: Repeat cultures this am while she is febrile. Bronched this am and wash taken from right middle lobe. Worsening CXR is likely related to the volume given yesterday. Will consult heme today as her numbers continue to worsen. Gram Negative Rods found in Tracheal aspirate from 02/01. Follow up speciation of this as well as bronch results. Will send for fungal cultures as well. Needs art line. Stop bob and change to vasopressin. Overall prognosis is very very guarded to poor. 02/03/22: Needs repeat culture with next fever spike. concern now that she is still spiking temps on broad spec abx. may need to broaden even more with antifungal but will discuss tomorrow with pharmacy tomorrow. pH is better but worsening hypoxemia. CXR shows bilateral infiltrates. Will consider bronch tomorrow for washing to be sent for culture. Consider Heme consult tomorrow. Echo was stable. Guarded to poor prognosis. Sugar is better today. 02/02/22: Wean Vasopressors as tolerated for maps >65. Check echo. Stop insulin therapy. Q1hour fSbs and cover with sliding scale. Repeat ABG later today to follow pH. May need some diamox later. Patient now neutropenic and thrombocytopenic, repeated CBC and still the same. may need to consider heme consult. For now continue broad spec abx therapy. prognosis is guarded to poor. 2 amps of NaBicarb pushed Started on Insulin drip Central line placement secondary to lack of access Aggressive volume resuscitation q1 hour fsbs and q6 hour BMPs for the next 36-48 hours Supplemental O2 Not a candidate for bipap currently given mental state so if her respiratory status deteriorates would need intubation. Guarded prognosis. Spoke with daughter briefly at bedside. She did not get off her cell phone so not able to have a full conversation with her about her mother. CCT 31 minutes. Subjective Date of service: 02/11/22 Principal diagnosis: DKA, s/p cardiopulmonary arrest Interval history: No acute events. Clinically much improved. CXR is better. O2 down to 40%. Objective Vital Signs - 12hr 02/11/22 02/11/22 02/11/22 06:31 06:45 07:01 Temperature Pulse Rate 114 H 117 H 115 H Pulse Rate [ From Monitor] Respiratory 18 19 18 Rate Blood Pressure 122/90 122/90 122/90 O2 Sat by Pulse 99 99 100 Oximetry 02/11/22 02/11/22 02/11/22 07:15 07:31 07:43 Temperature Pulse Rate 114 H 113 H 116 H Pulse Rate [ From Monitor] Respiratory 22 18 Rate Blood Pressure 122/90 122/90 114/73 O2 Sat by Pulse 98 100 99 Oximetry 02/11/22 02/11/22 02/11/22 07:45 08:00 08:15 Temperature 99 F Pulse Rate 111 H 111 H 113 H Pulse Rate [ 116 H From Monitor] Respiratory 17 17 19 Rate Blood Pressure 122/90 115/77 115/77 O2 Sat by Pulse 99 99 100 Oximetry 02/11/22 02/11/22 02/11/22 08:31 08:45 09:01 Temperature Pulse Rate 112 H 111 H 110 H Pulse Rate [ From Monitor] Respiratory 17 16 14 Rate Blood Pressure 115/77 115/77 115/77 O2 Sat by Pulse 99 99 99 Oximetry 02/11/22 02/11/22 02/11/22 09:15 09:31 09:45 Temperature Pulse Rate 111 H 108 H 110 H Pulse Rate [ From Monitor] Respiratory 15 15 14 Rate Blood Pressure 115/77 115/77 115/77 O2 Sat by Pulse 99 100 99 Oximetry 02/11/22 02/11/22 02/11/22 10:00 10:15 10:31 Temperature Pulse Rate 116 H 118 H 120 H Pulse Rate [ From Monitor] Respiratory 16 16 16 Rate Blood Pressure 105/69 105/69 105/69 O2 Sat by Pulse 98 99 99 Oximetry 02/11/22 02/11/22 02/11/22 10:45 11:01 11:15 Temperature Pulse Rate 120 H 118 H 120 H Pulse Rate [ From Monitor] Respiratory 15 16 17 Rate Blood Pressure 105/69 105/69 105/69 O2 Sat by Pulse 100 99 99 Oximetry 02/11/22 02/11/22 02/11/22 11:31 11:45 12:00 Temperature 98.9 F Pulse Rate 117 H 117 H 116 H Pulse Rate [ 116 H From Monitor] Respiratory 15 15 17 Rate Blood Pressure 105/69 105/69 114/73 O2 Sat by Pulse 99 99 98 Oximetry 02/11/22 02/11/22 02/11/22 12:15 12:31 12:45 Temperature Pulse Rate 116 H 116 H 118 H Pulse Rate [ From Monitor] Respiratory 16 15 16 Rate Blood Pressure 114/73 114/73 122/81 O2 Sat by Pulse 99 99 99 Oximetry 02/11/22 02/11/22 02/11/22 13:01 13:15 13:31 Temperature Pulse Rate 116 H 117 H 115 H Pulse Rate [ From Monitor] Respiratory 16 17 16 Rate Blood Pressure 114/73 114/73 114/73 O2 Sat by Pulse 99 99 99 Oximetry 02/11/22 02/11/22 02/11/22 13:45 14:00 14:15 Temperature Pulse Rate 117 H 119 H 118 H Pulse Rate [ From Monitor] Respiratory 19 23 18 Rate Blood Pressure 114/73 137/92 137/92 O2 Sat by Pulse 99 98 100 Oximetry 02/11/22 02/11/22 02/11/22 14:31 14:45 15:01 Temperature Pulse Rate 109 H 106 H 103 H Pulse Rate [ From Monitor] Respiratory 16 15 15 Rate Blood Pressure 137/92 137/92 137/92 O2 Sat by Pulse 99 99 99 Oximetry 02/11/22 02/11/22 02/11/22 15:15 15:31 15:45 Temperature Pulse Rate 104 H 103 H 104 H Pulse Rate [ From Monitor] Respiratory 15 15 15 Rate Blood Pressure 137/92 137/92 137/92 O2 Sat by Pulse 99 100 99 Oximetry 02/11/22 02/11/22 02/11/22 16:00 16:15 16:31 Temperature 98.9 F Pulse Rate 106 H 106 H 110 H Pulse Rate [ 116 H From Monitor] Respiratory 14 15 16 Rate Blood Pressure 117/79 117/79 117/79 O2 Sat by Pulse 98 99 100 Oximetry 02/11/22 02/11/22 02/11/22 16:33 16:45 17:01 Temperature Pulse Rate 116 H 111 H 108 H Pulse Rate [ From Monitor] Respiratory 21 15 Rate Blood Pressure 114/73 117/79 117/79 O2 Sat by Pulse 99 99 99 Oximetry 02/11/22 02/11/22 02/11/22 17:15 17:31 17:45 Temperature Pulse Rate 113 H 110 H 112 H Pulse Rate [ From Monitor] Respiratory 17 17 21 Rate Blood Pressure 117/79 117/79 117/79 O2 Sat by Pulse 100 100 100 Oximetry 02/11/22 02/11/22 18:00 18:15 Temperature Pulse Rate 109 H 111 H Pulse Rate [ From Monitor] Respiratory 21 19 Rate Blood Pressure 118/79 118/79 O2 Sat by Pulse 99 99 Oximetry Constitutional: other (on vent, orally intubated) Eyes: non-icteric ENT: oropharynx moist Ascultation: Bilateral: diminished breath sounds Cardiovascular: regular rate and rhythm Gastrointestinal: normoactive bowel sounds Integumentary: normal Neurologic: other (on vent) Psychiatric: other (on vent) CBC and BMP: 02/11/22 04:00 02/11/22 04:00 ABG, PT/INR, D-dimer: ABG ABG pH 7.459 pH Units (7.350-7.450) H 02/11/22 05:57 POC ABG pCO2 37.3 mmHg (32.0-48.0) 02/02/22 04:49 ABG pCO2 59.7 mm Hg 02/11/22 05:57 POC ABG pO2 79.9 mmHg (83-108) L 02/02/22 04:49 ABG pO2 99.8 mm Hg (80.0-90.0) H 02/11/22 05:57 POC ABG HCO3 30.3 02/02/22 04:49 ABG O2 Saturation 97.5 % (95.0-99.0) 02/11/22 05:57 PT/INR, D-dimer PT 14.8 Sec. (12.2-14.9) 02/05/22 08:48 INR 1.02 (0.87-1.13) 02/05/22 08:48 Abnormal lab findings: Abnormal Labs 01/31/22 01/31/22 01/31/22 20:33 20:33 20:33 WBC 12.5 H RBC 6.16 H Hgb Hct MCV 61 L MCH 18 L RDW 19.6 H Plt Count Seg Neuts % (Manual) 98.0 H Lymphocytes % (Manual) 0 L Nucleated RBC % 2.0 H Seg Neutrophils # Man 12.3 H Lymphocytes # (Manual) 0.0 L Percent Retic Fibrinogen ABG pH POC ABG pO2 ABG pO2 ABG HCO3 ABG O2 Saturation ABG Base Excess ABG Hemoglobin Oxyhemoglobin Carboxyhemoglobin Sodium Potassium 5.6 H Chloride 110.1 H Carbon Dioxide 9 L* BUN Creatinine Glucose 254 H POC Glucose Hemoglobin A1c Lactic Acid 2.50 H* Calcium 10.8 H Phosphorus Magnesium Direct Bilirubin AST ALT Alkaline Phosphatase Lactate Dehydrogenase Total Protein Albumin Ur Specific [place] Urine Blood Urine WBC (Auto) Vancomycin Trough Crossmatch 01/31/22 02/01/22 02/01/22 22:49 07:34 08:22 WBC RBC Hgb Hct MCV MCH RDW Plt Count Seg Neuts % (Manual) Lymphocytes % (Manual) Nucleated RBC % Seg Neutrophils # Man Lymphocytes # (Manual) Percent Retic Fibrinogen ABG pH POC ABG pO2 ABG pO2 ABG HCO3 ABG O2 Saturation ABG Base Excess ABG Hemoglobin Oxyhemoglobin Carboxyhemoglobin Sodium Potassium 5.8 H Chloride 115.8 H Carbon Dioxide 3 L* BUN Creatinine Glucose 400 H POC Glucose 368 H Hemoglobin A1c Lactic Acid Calcium Phosphorus Magnesium Direct Bilirubin AST ALT Alkaline Phosphatase Lactate Dehydrogenase Total Protein Albumin Ur Specific [place] 1.035 H Urine Blood Small A Urine WBC (Auto) 142.0 H Vancomycin Trough Crossmatch 02/01/22 02/01/22 02/01/22 09:42 12:01 12:54 WBC RBC Hgb Hct MCV MCH RDW Plt Count Seg Neuts % (Manual) Lymphocytes % (Manual) Nucleated RBC % Seg Neutrophils # Man Lymphocytes # (Manual) Percent Retic Fibrinogen ABG pH 7.044 L* POC ABG pO2 ABG pO2 121.0 H ABG HCO3 3.7 L ABG O2 Saturation ABG Base Excess -24.8 L ABG Hemoglobin 9.3 L Oxyhemoglobin Carboxyhemoglobin Sodium Potassium Chloride Carbon Dioxide BUN Creatinine Glucose POC Glucose 382 H Hemoglobin A1c Lactic Acid Calcium Phosphorus 1.40 L Magnesium 1.30 L Direct Bilirubin AST ALT Alkaline Phosphatase Lactate Dehydrogenase Total Protein Albumin Ur Specific [place] Urine Blood Urine WBC (Auto) Vancomycin Trough Crossmatch 02/01/22 02/01/22 02/01/22 12:54 12:54 13:27 WBC RBC Hgb Hct MCV MCH RDW Plt Count Seg Neuts % (Manual) Lymphocytes % (Manual) Nucleated RBC % Seg Neutrophils # Man Lymphocytes # (Manual) Percent Retic Fibrinogen ABG pH POC ABG pO2 ABG pO2 ABG HCO3 ABG O2 Saturation ABG Base Excess ABG Hemoglobin Oxyhemoglobin Carboxyhemoglobin Sodium 148 H D Potassium 3.0 L D Chloride 117.3 H Carbon Dioxide 9 L* BUN Creatinine Glucose 439 H POC Glucose 342 H Hemoglobin A1c 11.1 H Lactic Acid Calcium 7.7 L Phosphorus Magnesium Direct Bilirubin AST ALT Alkaline Phosphatase Lactate Dehydrogenase Total Protein Albumin Ur Specific [place] Urine Blood Urine WBC (Auto) Vancomycin Trough Crossmatch 02/01/22 02/01/22 02/01/22 14:48 15:48 16:54 WBC RBC Hgb Hct MCV MCH RDW Plt Count Seg Neuts % (Manual) Lymphocytes % (Manual) Nucleated RBC % Seg Neutrophils # Man Lymphocytes # (Manual) Percent Retic Fibrinogen ABG pH POC ABG pO2 ABG pO2 ABG HCO3 ABG O2 Saturation ABG Base Excess ABG Hemoglobin Oxyhemoglobin Carboxyhemoglobin Sodium Potassium Chloride Carbon Dioxide BUN Creatinine Glucose POC Glucose 394 H 412 H 352 H Hemoglobin A1c Lactic Acid Calcium Phosphorus Magnesium Direct Bilirubin AST ALT Alkaline Phosphatase Lactate Dehydrogenase Total Protein Albumin Ur Specific [place] Urine Blood Urine WBC (Auto) Vancomycin Trough Crossmatch 02/01/22 02/01/22 02/01/22 18:23 18:53 19:26 WBC RBC Hgb Hct MCV MCH RDW Plt Count Seg Neuts % (Manual) Lymphocytes % (Manual) Nucleated RBC % Seg Neutrophils # Man Lymphocytes # (Manual) Percent Retic Fibrinogen ABG pH 7.331 L POC ABG pO2 ABG pO2 121.4 H ABG HCO3 ABG O2 Saturation ABG Base Excess -4.9 L ABG Hemoglobin 8.4 L Oxyhemoglobin Carboxyhemoglobin Sodium Potassium Chloride Carbon Dioxide BUN Creatinine Glucose POC Glucose 350 H 260 H Hemoglobin A1c Lactic Acid Calcium Phosphorus Magnesium Direct Bilirubin AST ALT Alkaline Phosphatase Lactate Dehydrogenase Total Protein Albumin Ur Specific [place] Urine Blood Urine WBC (Auto) Vancomycin Trough Crossmatch 02/01/22 02/01/22 02/01/22 20:20 21:38 22:41 WBC RBC Hgb Hct MCV MCH RDW Plt Count Seg Neuts % (Manual) Lymphocytes % (Manual) Nucleated RBC % Seg Neutrophils # Man Lymphocytes # (Manual) Percent Retic Fibrinogen ABG pH POC ABG pO2 ABG pO2 ABG HCO3 ABG O2 Saturation ABG Base Excess ABG Hemoglobin Oxyhemoglobin Carboxyhemoglobin Sodium Potassium Chloride Carbon Dioxide BUN Creatinine Glucose POC Glucose 266 H 195 H 150 H Hemoglobin A1c Lactic Acid Calcium Phosphorus Magnesium Direct Bilirubin AST ALT Alkaline Phosphatase Lactate Dehydrogenase Total Protein Albumin Ur Specific [place] Urine Blood Urine WBC (Auto) Vancomycin Trough Crossmatch 02/01/22 02/02/22 02/02/22 23:39 00:25 00:25 WBC RBC Hgb Hct MCV MCH RDW Plt Count Seg Neuts % (Manual) Lymphocytes % (Manual) Nucleated RBC % Seg Neutrophils # Man Lymphocytes # (Manual) Percent Retic Fibrinogen ABG pH POC ABG pO2 ABG pO2 ABG HCO3 ABG O2 Saturation ABG Base Excess ABG Hemoglobin Oxyhemoglobin Carboxyhemoglobin Sodium 156 H D Potassium 3.0 L Chloride 114.2 H Carbon Dioxide BUN Creatinine 0.5 L Glucose 63 L POC Glucose 125 H Hemoglobin A1c Lactic Acid 7.10 H* Calcium 8.1 L Phosphorus Magnesium Direct Bilirubin AST ALT Alkaline Phosphatase Lactate Dehydrogenase Total Protein Albumin Ur Specific [place] Urine Blood Urine WBC (Auto) Vancomycin Trough Crossmatch 02/02/22 02/02/22 02/02/22 04:00 04:00 04:35 WBC 1.4 L* RBC Hgb 8.5 L Hct 26.8 L D MCV 57 L MCH 18 L RDW 19.0 H Plt Count 129 L Seg Neuts % (Manual) 33.0 L Lymphocytes % (Manual) 57.0 H Nucleated RBC % Seg Neutrophils # Man 0.5 L Lymphocytes # (Manual) 0.8 L Percent Retic Fibrinogen ABG pH POC ABG pO2 ABG pO2 ABG HCO3 ABG O2 Saturation ABG Base Excess ABG Hemoglobin Oxyhemoglobin Carboxyhemoglobin Sodium 155 H Potassium Chloride 113.1 H Carbon Dioxide BUN Creatinine Glucose 159 H POC Glucose Hemoglobin A1c Lactic Acid 3.10 H* Calcium 7.6 L Phosphorus Magnesium Direct Bilirubin AST ALT Alkaline Phosphatase Lactate Dehydrogenase Total Protein Albumin Ur Specific [place] Urine Blood Urine WBC (Auto) Vancomycin Trough Crossmatch 02/02/22 02/02/22 02/02/22 04:37 04:49 05:43 WBC RBC Hgb Hct MCV MCH RDW Plt Count Seg Neuts % (Manual) Lymphocytes % (Manual) Nucleated RBC % Seg Neutrophils # Man Lymphocytes # (Manual) Percent Retic Fibrinogen ABG pH 7.528 H POC ABG pO2 79.9 L ABG pO2 ABG HCO3 ABG O2 Saturation ABG Base Excess ABG Hemoglobin 8.8 L Oxyhemoglobin Carboxyhemoglobin 0.2 L Sodium Potassium Chloride Carbon Dioxide BUN Creatinine Glucose POC Glucose 116 H 125 H Hemoglobin A1c Lactic Acid Calcium Phosphorus Magnesium Direct Bilirubin AST ALT Alkaline Phosphatase Lactate Dehydrogenase Total Protein Albumin Ur Specific [place] Urine Blood Urine WBC (Auto) Vancomycin Trough Crossmatch 02/02/22 02/02/22 02/02/22 06:52 09:02 09:05 WBC RBC Hgb Hct MCV MCH RDW Plt Count Seg Neuts % (Manual) Lymphocytes % (Manual) Nucleated RBC % Seg Neutrophils # Man Lymphocytes # (Manual) Percent Retic Fibrinogen ABG pH POC ABG pO2 ABG pO2 ABG HCO3 ABG O2 Saturation ABG Base Excess ABG Hemoglobin Oxyhemoglobin Carboxyhemoglobin Sodium 154 H Potassium 3.3 L Chloride 113.3 H Carbon Dioxide BUN Creatinine Glucose 35 L* POC Glucose 110 H 35 L Hemoglobin A1c Lactic Acid Calcium 7.4 L Phosphorus 1.70 L D Magnesium 2.50 H Direct Bilirubin AST ALT Alkaline Phosphatase Lactate Dehydrogenase Total Protein Albumin Ur Specific [place] Urine Blood Urine WBC (Auto) Vancomycin Trough Crossmatch 02/02/22 02/02/22 02/02/22 09:05 09:30 09:41 WBC 2.6 L RBC Hgb 8.0 L Hct 25.0 L MCV 57 L MCH 18 L RDW 18.8 H Plt Count 97 L Seg Neuts % (Manual) Lymphocytes % (Manual) 12.0 L Nucleated RBC % 10.0 H Seg Neutrophils # Man 1.7 L Lymphocytes # (Manual) 0.3 L Percent Retic Fibrinogen ABG pH POC ABG pO2 ABG pO2 ABG HCO3 ABG O2 Saturation ABG Base Excess ABG Hemoglobin Oxyhemoglobin Carboxyhemoglobin Sodium Potassium Chloride Carbon Dioxide BUN Creatinine Glucose POC Glucose 119 H Hemoglobin A1c Lactic Acid 7.10 H* Calcium Phosphorus Magnesium Direct Bilirubin AST ALT Alkaline Phosphatase Lactate Dehydrogenase Total Protein Albumin Ur Specific [place] Urine Blood Urine WBC (Auto) Vancomycin Trough Crossmatch 02/02/22 02/02/22 02/02/22 10:17 12:32 15:39 WBC RBC Hgb Hct MCV MCH RDW Plt Count Seg Neuts % (Manual) Lymphocytes % (Manual) Nucleated RBC % Seg Neutrophils # Man Lymphocytes # (Manual) Percent Retic Fibrinogen ABG pH POC ABG pO2 ABG pO2 ABG HCO3 ABG O2 Saturation ABG Base Excess ABG Hemoglobin Oxyhemoglobin Carboxyhemoglobin Sodium Potassium Chloride Carbon Dioxide BUN Creatinine Glucose POC Glucose 120 H 166 H 263 H Hemoglobin A1c Lactic Acid Calcium Phosphorus Magnesium Direct Bilirubin AST ALT Alkaline Phosphatase Lactate Dehydrogenase Total Protein Albumin Ur Specific [place] Urine Blood Urine WBC (Auto) Vancomycin Trough Crossmatch 02/02/22 02/02/22 02/02/22 17:07 17:50 Unknown WBC RBC Hgb Hct MCV MCH RDW Plt Count Seg Neuts % (Manual) Lymphocytes % (Manual) Nucleated RBC % Seg Neutrophils # Man Lymphocytes # (Manual) Percent Retic Fibrinogen ABG pH 7.457 H POC ABG pO2 ABG pO2 71.0 L ABG HCO3 ABG O2 Saturation 94.5 L ABG Base Excess ABG Hemoglobin 9.2 L Oxyhemoglobin 93.0 L Carboxyhemoglobin Sodium 147 H Potassium 5.5 H D Chloride 110.8 H Carbon Dioxide BUN Creatinine Glucose 271 H POC Glucose 231 H Hemoglobin A1c Lactic Acid Calcium 7.3 L Phosphorus Magnesium Direct Bilirubin AST ALT Alkaline Phosphatase Lactate Dehydrogenase Total Protein Albumin Ur Specific [place] Urine Blood Urine WBC (Auto) Vancomycin Trough Crossmatch 02/03/22 02/03/22 02/03/22 00:08 04:00 04:00 WBC 3.7 L RBC Hgb 8.0 L Hct 25.5 L MCV 58 L MCH 18 L RDW 18.2 H Plt Count 79 L Seg Neuts % (Manual) 76.0 H Lymphocytes % (Manual) 2.0 L Nucleated RBC % 4.0 H Seg Neutrophils # Man Lymphocytes # (Manual) 0.1 L Percent Retic Fibrinogen ABG pH POC ABG pO2 ABG pO2 ABG HCO3 ABG O2 Saturation ABG Base Excess ABG Hemoglobin Oxyhemoglobin Carboxyhemoglobin Sodium 147 H Potassium Chloride 112.9 H Carbon Dioxide BUN Creatinine Glucose 281 H POC Glucose 231 H Hemoglobin A1c Lactic Acid Calcium 7.8 L Phosphorus Magnesium Direct Bilirubin 0.3 H AST 172 H ALT 89 H Alkaline Phosphatase Lactate Dehydrogenase Total Protein 4.7 L D Albumin 2.0 L Ur Specific [place] Urine Blood Urine WBC (Auto) Vancomycin Trough Crossmatch 02/03/22 02/03/22 02/03/22 04:20 05:26 11:38 WBC RBC Hgb Hct MCV MCH RDW Plt Count Seg Neuts % (Manual) Lymphocytes % (Manual) Nucleated RBC % Seg Neutrophils # Man Lymphocytes # (Manual) Percent Retic Fibrinogen ABG pH POC ABG pO2 ABG pO2 75.5 L ABG HCO3 ABG O2 Saturation ABG Base Excess -2.8 L ABG Hemoglobin 8.1 L Oxyhemoglobin 94.6 L Carboxyhemoglobin Sodium Potassium Chloride Carbon Dioxide BUN Creatinine Glucose POC Glucose 247 H 196 H Hemoglobin A1c Lactic Acid Calcium Phosphorus Magnesium Direct Bilirubin AST ALT Alkaline Phosphatase Lactate Dehydrogenase Total Protein Albumin Ur Specific [place] Urine Blood Urine WBC (Auto) Vancomycin Trough Crossmatch 02/03/22 02/04/22 02/04/22 16:27 02:44 03:18 WBC 1.2 L* RBC Hgb 8.2 L Hct 26.6 L MCV 59 L MCH 18 L RDW 19.6 H Plt Count 50 L Seg Neuts % (Manual) Lymphocytes % (Manual) Nucleated RBC % Seg Neutrophils # Man Lymphocytes # (Manual) Percent Retic Fibrinogen ABG pH POC ABG pO2 ABG pO2 ABG HCO3 ABG O2 Saturation ABG Base Excess ABG Hemoglobin Oxyhemoglobin Carboxyhemoglobin Sodium 148 H Potassium Chloride 116.3 H Carbon Dioxide BUN Creatinine Glucose 139 H POC Glucose 119 H Hemoglobin A1c Lactic Acid Calcium Phosphorus Magnesium Direct Bilirubin 0.3 H AST 92 H ALT 76 H Alkaline Phosphatase Lactate Dehydrogenase Total Protein 4.7 L Albumin 1.6 L Ur Specific [place] Urine Blood Urine WBC (Auto) Vancomycin Trough Crossmatch 02/04/22 02/04/22 02/04/22 05:15 05:26 09:15 WBC RBC Hgb Hct MCV MCH RDW Plt Count Seg Neuts % (Manual) Lymphocytes % (Manual) Nucleated RBC % Seg Neutrophils # Man Lymphocytes # (Manual) Percent Retic Fibrinogen ABG pH 7.311 L POC ABG pO2 ABG pO2 50.1 L ABG HCO3 ABG O2 Saturation 83.6 L ABG Base Excess ABG Hemoglobin 8.6 L Oxyhemoglobin 81.9 L Carboxyhemoglobin Sodium Potassium Chloride Carbon Dioxide BUN Creatinine Glucose POC Glucose 115 H Hemoglobin A1c Lactic Acid Calcium Phosphorus Magnesium Direct Bilirubin AST ALT Alkaline Phosphatase Lactate Dehydrogenase Total Protein Albumin Ur Specific [place] Urine Blood Large A Urine WBC (Auto) 12.0 H Vancomycin Trough Crossmatch 02/04/22 02/04/22 02/04/22 11:17 14:37 17:04 WBC RBC Hgb Hct MCV MCH RDW Plt Count Seg Neuts % (Manual) Lymphocytes % (Manual) Nucleated RBC % Seg Neutrophils # Man Lymphocytes # (Manual) Percent Retic Fibrinogen ABG pH POC ABG pO2 ABG pO2 ABG HCO3 ABG O2 Saturation ABG Base Excess ABG Hemoglobin Oxyhemoglobin Carboxyhemoglobin Sodium Potassium Chloride Carbon Dioxide BUN Creatinine Glucose POC Glucose 166 H 109 H Hemoglobin A1c Lactic Acid Calcium Phosphorus Magnesium Direct Bilirubin AST 87 H ALT 75 H Alkaline Phosphatase 137 H Lactate Dehydrogenase Total Protein 4.6 L Albumin 1.7 L Ur Specific [place] Urine Blood Urine WBC (Auto) Vancomycin Trough Crossmatch 02/04/22 02/04/22 02/04/22 20:15 20:22 20:22 WBC RBC Hgb 7.1 L Hct 22.6 L MCV MCH RDW Plt Count Seg Neuts % (Manual) Lymphocytes % (Manual) Nucleated RBC % Seg Neutrophils # Man Lymphocytes # (Manual) Percent Retic Fibrinogen ABG pH 7.292 L POC ABG pO2 ABG pO2 40.3 L ABG HCO3 ABG O2 Saturation 72.1 L ABG Base Excess -2.2 L ABG Hemoglobin 7.0 L Oxyhemoglobin 70.5 L Carboxyhemoglobin Sodium Potassium Chloride Carbon Dioxide BUN Creatinine Glucose POC Glucose Hemoglobin A1c Lactic Acid 3.00 H* Calcium Phosphorus Magnesium Direct Bilirubin AST ALT Alkaline Phosphatase Lactate Dehydrogenase Total Protein Albumin Ur Specific [place] Urine Blood Urine WBC (Auto) Vancomycin Trough Crossmatch 02/04/22 02/04/22 02/05/22 20:22 23:03 04:40 WBC 3.1 L RBC Hgb 9.6 L Hct 30.1 L D MCV 64 L MCH 20 L RDW 26.9 H Plt Count 50 L Seg Neuts % (Manual) Lymphocytes % (Manual) Nucleated RBC % Seg Neutrophils # Man Lymphocytes # (Manual) Percent Retic Fibrinogen ABG pH POC ABG pO2 ABG pO2 ABG HCO3 ABG O2 Saturation ABG Base Excess ABG Hemoglobin Oxyhemoglobin Carboxyhemoglobin Sodium Potassium Chloride Carbon Dioxide BUN Creatinine Glucose POC Glucose 171 H Hemoglobin A1c Lactic Acid Calcium Phosphorus Magnesium Direct Bilirubin AST ALT Alkaline Phosphatase Lactate Dehydrogenase Total Protein Albumin Ur Specific [place] Urine Blood Urine WBC (Auto) Vancomycin Trough Crossmatch See Detail 02/05/22 02/05/22 02/05/22 04:40 04:40 04:43 WBC RBC Hgb Hct MCV MCH RDW Plt Count Seg Neuts % (Manual) Lymphocytes % (Manual) Nucleated RBC % Seg Neutrophils # Man Lymphocytes # (Manual) Percent Retic Fibrinogen ABG pH POC ABG pO2 ABG pO2 ABG HCO3 ABG O2 Saturation ABG Base Excess ABG Hemoglobin Oxyhemoglobin Carboxyhemoglobin Sodium 148 H Potassium Chloride 113.2 H Carbon Dioxide BUN 21 H Creatinine Glucose 155 H POC Glucose 156 H Hemoglobin A1c Lactic Acid Calcium Phosphorus Magnesium Direct Bilirubin AST 84 H ALT 67 H Alkaline Phosphatase 152 H Lactate Dehydrogenase 879 H Total Protein 5.0 L Albumin 1.8 L Ur Specific [place] Urine Blood Urine WBC (Auto) Vancomycin Trough Crossmatch 02/05/22 02/05/22 02/05/22 08:10 08:48 08:48 WBC RBC Hgb Hct MCV MCH RDW Plt Count Seg Neuts % (Manual) Lymphocytes % (Manual) Nucleated RBC % Seg Neutrophils # Man Lymphocytes # (Manual) Percent Retic Fibrinogen 795 H ABG pH POC ABG pO2 ABG pO2 57.1 L ABG HCO3 27.8 H ABG O2 Saturation 90.8 L ABG Base Excess ABG Hemoglobin 8.5 L Oxyhemoglobin 88.9 L Carboxyhemoglobin Sodium Potassium Chloride Carbon Dioxide BUN Creatinine Glucose POC Glucose Hemoglobin A1c Lactic Acid 2.90 H* Calcium Phosphorus Magnesium Direct Bilirubin AST ALT Alkaline Phosphatase Lactate Dehydrogenase Total Protein Albumin Ur Specific [place] Urine Blood Urine WBC (Auto) Vancomycin Trough Crossmatch 02/05/22 02/05/22 02/05/22 11:46 17:45 Unknown WBC RBC Hgb Hct MCV MCH RDW Plt Count Seg Neuts % (Manual) Lymphocytes % (Manual) Nucleated RBC % Seg Neutrophils # Man Lymphocytes # (Manual) Percent Retic Fibrinogen ABG pH POC ABG pO2 ABG pO2 ABG HCO3 ABG O2 Saturation ABG Base Excess ABG Hemoglobin Oxyhemoglobin Carboxyhemoglobin Sodium Potassium Chloride Carbon Dioxide BUN Creatinine Glucose POC Glucose 61 L 133 H Hemoglobin A1c Lactic Acid Calcium Phosphorus Magnesium Direct Bilirubin AST ALT Alkaline Phosphatase Lactate Dehydrogenase Total Protein Albumin Ur Specific [place] Urine Blood Urine WBC (Auto) Vancomycin Trough 28.6 H Crossmatch 02/05/22 02/06/22 02/06/22 23:59 04:33 04:33 WBC RBC Hgb 8.4 L Hct 26.1 L MCV 64 L MCH 21 L RDW 26.2 H Plt Count 38 L Seg Neuts % (Manual) Lymphocytes % (Manual) Nucleated RBC % Seg Neutrophils # Man Lymphocytes # (Manual) Percent Retic Fibrinogen ABG pH POC ABG pO2 ABG pO2 ABG HCO3 ABG O2 Saturation ABG Base Excess ABG Hemoglobin Oxyhemoglobin Carboxyhemoglobin Sodium 146 H Potassium 3.4 L Chloride Carbon Dioxide 31 H BUN 21 H Creatinine Glucose 230 H POC Glucose 275 H Hemoglobin A1c Lactic Acid Calcium Phosphorus Magnesium Direct Bilirubin AST 70 H ALT Alkaline Phosphatase 197 H Lactate Dehydrogenase Total Protein 5.3 L Albumin 2.4 L Ur Specific [place] Urine Blood Urine WBC (Auto) Vancomycin Trough Crossmatch 02/06/22 02/06/22 02/06/22 04:33 04:50 06:19 WBC RBC Hgb Hct MCV MCH RDW Plt Count Seg Neuts % (Manual) Lymphocytes % (Manual) Nucleated RBC % Seg Neutrophils # Man Lymphocytes # (Manual) Percent Retic Fibrinogen ABG pH 7.330 L POC ABG pO2 ABG pO2 57.9 L ABG HCO3 31.3 H ABG O2 Saturation 89.6 L ABG Base Excess 4.5 H ABG Hemoglobin 8.1 L Oxyhemoglobin 87.7 L Carboxyhemoglobin Sodium Potassium Chloride Carbon Dioxide BUN Creatinine Glucose POC Glucose 219 H Hemoglobin A1c Lactic Acid 3.10 H* Calcium Phosphorus Magnesium Direct Bilirubin AST ALT Alkaline Phosphatase Lactate Dehydrogenase Total Protein Albumin Ur Specific [place] Urine Blood Urine WBC (Auto) Vancomycin Trough Crossmatch 02/06/22 02/06/22 02/06/22 11:24 11:50 12:26 WBC RBC Hgb Hct MCV MCH RDW Plt Count Seg Neuts % (Manual) Lymphocytes % (Manual) Nucleated RBC % Seg Neutrophils # Man Lymphocytes # (Manual) Percent Retic Fibrinogen ABG pH 7.298 L POC ABG pO2 ABG pO2 43.3 L ABG HCO3 36.7 H ABG O2 Saturation 74.9 L ABG Base Excess 8.8 H ABG Hemoglobin 8.2 L Oxyhemoglobin 73.3 L Carboxyhemoglobin Sodium Potassium Chloride Carbon Dioxide BUN Creatinine Glucose POC Glucose 118 H Hemoglobin A1c Lactic Acid 2.50 H* Calcium Phosphorus Magnesium Direct Bilirubin AST ALT Alkaline Phosphatase Lactate Dehydrogenase Total Protein Albumin Ur Specific [place] Urine Blood Urine WBC (Auto) Vancomycin Trough Crossmatch 02/06/22 02/06/22 02/07/22 17:41 21:41 00:17 WBC RBC Hgb Hct MCV MCH RDW Plt Count Seg Neuts % (Manual) Lymphocytes % (Manual) Nucleated RBC % Seg Neutrophils # Man Lymphocytes # (Manual) Percent Retic Fibrinogen ABG pH POC ABG pO2 ABG pO2 ABG HCO3 ABG O2 Saturation ABG Base Excess ABG Hemoglobin Oxyhemoglobin Carboxyhemoglobin Sodium Potassium Chloride Carbon Dioxide BUN Creatinine Glucose POC Glucose 208 H 282 H 342 H Hemoglobin A1c Lactic Acid Calcium Phosphorus Magnesium Direct Bilirubin AST ALT Alkaline Phosphatase Lactate Dehydrogenase Total Protein Albumin Ur Specific [place] Urine Blood Urine WBC (Auto) Vancomycin Trough Crossmatch 02/07/22 02/07/22 02/07/22 00:19 04:12 04:12 WBC 13.1 H RBC Hgb 8.5 L Hct 26.4 L MCV 62 L MCH 20 L RDW 24.2 H Plt Count 57 L Seg Neuts % (Manual) Lymphocytes % (Manual) Nucleated RBC % Seg Neutrophils # Man Lymphocytes # (Manual) Percent Retic Fibrinogen ABG pH POC ABG pO2 ABG pO2 ABG HCO3 ABG O2 Saturation ABG Base Excess ABG Hemoglobin Oxyhemoglobin Carboxyhemoglobin Sodium 149 H Potassium 3.1 L Chloride Carbon Dioxide 38 H D BUN 23 H Creatinine Glucose 298 H POC Glucose 209 H Hemoglobin A1c Lactic Acid Calcium Phosphorus 2.10 L Magnesium Direct Bilirubin AST 49 H ALT Alkaline Phosphatase 248 H Lactate Dehydrogenase Total Protein 5.4 L Albumin 2.7 L Ur Specific [place] Urine Blood Urine WBC (Auto) Vancomycin Trough Crossmatch 02/07/22 02/07/22 02/07/22 04:40 07:09 07:13 WBC RBC Hgb Hct MCV MCH RDW Plt Count Seg Neuts % (Manual) Lymphocytes % (Manual) Nucleated RBC % Seg Neutrophils # Man Lymphocytes # (Manual) Percent Retic Fibrinogen ABG pH 7.474 H POC ABG pO2 ABG pO2 62.1 L ABG HCO3 39.1 H ABG O2 Saturation 94.7 L ABG Base Excess 13.9 H ABG Hemoglobin 8.6 L Oxyhemoglobin 93.0 L Carboxyhemoglobin Sodium Potassium Chloride Carbon Dioxide BUN Creatinine Glucose POC Glucose 399 H 418 H Hemoglobin A1c Lactic Acid Calcium Phosphorus Magnesium Direct Bilirubin AST ALT Alkaline Phosphatase Lactate Dehydrogenase Total Protein Albumin Ur Specific [place] Urine Blood Urine WBC (Auto) Vancomycin Trough Crossmatch 02/07/22 02/07/22 02/07/22 12:20 17:29 23:37 WBC RBC Hgb Hct MCV MCH RDW Plt Count Seg Neuts % (Manual) Lymphocytes % (Manual) Nucleated RBC % Seg Neutrophils # Man Lymphocytes # (Manual) Percent Retic Fibrinogen ABG pH POC ABG pO2 ABG pO2 ABG HCO3 ABG O2 Saturation ABG Base Excess ABG Hemoglobin Oxyhemoglobin Carboxyhemoglobin Sodium Potassium Chloride Carbon Dioxide BUN Creatinine Glucose POC Glucose 229 H 159 H 236 H Hemoglobin A1c Lactic Acid Calcium Phosphorus Magnesium Direct Bilirubin AST ALT Alkaline Phosphatase Lactate Dehydrogenase Total Protein Albumin Ur Specific [place] Urine Blood Urine WBC (Auto) Vancomycin Trough Crossmatch 02/08/22 02/08/22 02/08/22 03:55 03:55 05:20 WBC 14.7 H RBC Hgb 7.7 L Hct 25.0 L MCV 64 L MCH 20 L RDW 25.1 H Plt Count 79 L Seg Neuts % (Manual) Lymphocytes % (Manual) Nucleated RBC % Seg Neutrophils # Man Lymphocytes # (Manual) Percent Retic 0.65 L Fibrinogen ABG pH POC ABG pO2 ABG pO2 ABG HCO3 ABG O2 Saturation ABG Base Excess ABG Hemoglobin Oxyhemoglobin Carboxyhemoglobin Sodium Potassium 3.0 L Chloride 93.9 L Carbon Dioxide 44 H* BUN 30 H Creatinine Glucose 229 H POC Glucose 235 H Hemoglobin A1c Lactic Acid Calcium 8.3 L Phosphorus 2.30 L Magnesium Direct Bilirubin AST 77 H ALT Alkaline Phosphatase 246 H Lactate Dehydrogenase Total Protein 5.2 L Albumin 2.7 L Ur Specific [place] Urine Blood Urine WBC (Auto) Vancomycin Trough Crossmatch 02/08/22 02/08/22 02/08/22 11:47 16:36 21:41 WBC RBC Hgb Hct MCV MCH RDW Plt Count Seg Neuts % (Manual) Lymphocytes % (Manual) Nucleated RBC % Seg Neutrophils # Man Lymphocytes # (Manual) Percent Retic Fibrinogen ABG pH POC ABG pO2 ABG pO2 ABG HCO3 ABG O2 Saturation ABG Base Excess ABG Hemoglobin Oxyhemoglobin Carboxyhemoglobin Sodium Potassium Chloride Carbon Dioxide BUN Creatinine Glucose POC Glucose 193 H 205 H 292 H Hemoglobin A1c Lactic Acid Calcium Phosphorus Magnesium Direct Bilirubin AST ALT Alkaline Phosphatase Lactate Dehydrogenase Total Protein Albumin Ur Specific [place] Urine Blood Urine WBC (Auto) Vancomycin Trough Crossmatch 02/08/22 02/08/22 02/09/22 Unknown 23:59 04:00 WBC 16.4 H RBC Hgb 8.2 L Hct 26.3 L MCV 63 L MCH 20 L RDW 23.9 H Plt Count 128 L Seg Neuts % (Manual) Lymphocytes % (Manual) Nucleated RBC % Seg Neutrophils # Man Lymphocytes # (Manual) Percent Retic Fibrinogen ABG pH 7.488 H POC ABG pO2 ABG pO2 63.1 L ABG HCO3 45.5 H ABG O2 Saturation 94.1 L ABG Base Excess 19.8 H ABG Hemoglobin 8.7 L Oxyhemoglobin 92.4 L Carboxyhemoglobin Sodium Potassium Chloride Carbon Dioxide BUN Creatinine Glucose POC Glucose 342 H Hemoglobin A1c Lactic Acid Calcium Phosphorus Magnesium Direct Bilirubin AST ALT Alkaline Phosphatase Lactate Dehydrogenase Total Protein Albumin Ur Specific [place] Urine Blood Urine WBC (Auto) Vancomycin Trough Crossmatch 02/09/22 02/09/22 02/09/22 04:00 05:30 06:07 WBC RBC Hgb Hct MCV MCH RDW Plt Count Seg Neuts % (Manual) Lymphocytes % (Manual) Nucleated RBC % Seg Neutrophils # Man Lymphocytes # (Manual) Percent Retic Fibrinogen ABG pH 7.539 H POC ABG pO2 ABG pO2 210.4 H ABG HCO3 42.4 H ABG O2 Saturation 99.3 H ABG Base Excess 18.0 H ABG Hemoglobin 7.8 L Oxyhemoglobin Carboxyhemoglobin Sodium 149 H Potassium 3.1 L Chloride 97.6 L Carbon Dioxide 42 H* BUN 27 H Creatinine Glucose 257 H POC Glucose 260 H Hemoglobin A1c Lactic Acid Calcium 8.2 L Phosphorus 1.90 L Magnesium Direct Bilirubin AST 81 H ALT Alkaline Phosphatase 229 H Lactate Dehydrogenase Total Protein 5.4 L Albumin 2.6 L Ur Specific [place] Urine Blood Urine WBC (Auto) Vancomycin Trough Crossmatch 02/09/22 02/09/22 02/09/22 11:16 17:33 20:25 WBC RBC Hgb Hct MCV MCH RDW Plt Count Seg Neuts % (Manual) Lymphocytes % (Manual) Nucleated RBC % Seg Neutrophils # Man Lymphocytes # (Manual) Percent Retic Fibrinogen ABG pH 7.504 H POC ABG pO2 ABG pO2 79.7 L ABG HCO3 44.2 H ABG O2 Saturation ABG Base Excess 19.2 H ABG Hemoglobin 7.0 L Oxyhemoglobin Carboxyhemoglobin Sodium Potassium Chloride Carbon Dioxide BUN Creatinine Glucose POC Glucose 184 H 123 H Hemoglobin A1c Lactic Acid Calcium Phosphorus Magnesium Direct Bilirubin AST ALT Alkaline Phosphatase Lactate Dehydrogenase Total Protein Albumin Ur Specific [place] Urine Blood Urine WBC (Auto) Vancomycin Trough Crossmatch 02/09/22 02/09/22 02/10/22 21:16 23:13 03:40 WBC 17.2 H RBC Hgb 7.9 L Hct 25.3 L MCV 63 L MCH 20 L RDW 20.7 H Plt Count Seg Neuts % (Manual) Lymphocytes % (Manual) Nucleated RBC % Seg Neutrophils # Man Lymphocytes # (Manual) Percent Retic Fibrinogen ABG pH POC ABG pO2 ABG pO2 ABG HCO3 ABG O2 Saturation ABG Base Excess ABG Hemoglobin Oxyhemoglobin Carboxyhemoglobin Sodium Potassium Chloride Carbon Dioxide BUN Creatinine Glucose POC Glucose 186 H 276 H Hemoglobin A1c Lactic Acid Calcium Phosphorus Magnesium Direct Bilirubin AST ALT Alkaline Phosphatase Lactate Dehydrogenase Total Protein Albumin Ur Specific [place] Urine Blood Urine WBC (Auto) Vancomycin Trough Crossmatch 02/10/22 02/10/22 02/10/22 03:40 04:17 04:17 WBC RBC Hgb Hct MCV MCH RDW Plt Count Seg Neuts % (Manual) Lymphocytes % (Manual) Nucleated RBC % Seg Neutrophils # Man Lymphocytes # (Manual) Percent Retic Fibrinogen ABG pH 7.468 H POC ABG pO2 ABG pO2 124.2 H ABG HCO3 42.1 H ABG O2 Saturation ABG Base Excess 16.6 H ABG Hemoglobin 7.6 L Oxyhemoglobin Carboxyhemoglobin Sodium 149 H Potassium 3.2 L Chloride Carbon Dioxide 38 H BUN 26 H Creatinine 0.5 L Glucose 188 H POC Glucose 189 H Hemoglobin A1c Lactic Acid Calcium 8.3 L Phosphorus 2.10 L Magnesium Direct Bilirubin AST 120 H ALT 80 H Alkaline Phosphatase 207 H Lactate Dehydrogenase Total Protein 5.3 L Albumin 2.4 L Ur Specific [place] Urine Blood Urine WBC (Auto) Vancomycin Trough Crossmatch 02/10/22 02/10/22 02/10/22 11:46 16:27 21:15 WBC RBC Hgb Hct MCV MCH RDW Plt Count Seg Neuts % (Manual) Lymphocytes % (Manual) Nucleated RBC % Seg Neutrophils # Man Lymphocytes # (Manual) Percent Retic Fibrinogen ABG pH POC ABG pO2 ABG pO2 ABG HCO3 ABG O2 Saturation ABG Base Excess ABG Hemoglobin Oxyhemoglobin Carboxyhemoglobin Sodium Potassium Chloride Carbon Dioxide BUN Creatinine Glucose POC Glucose 189 H 198 H 261 H Hemoglobin A1c Lactic Acid Calcium Phosphorus Magnesium Direct Bilirubin AST ALT Alkaline Phosphatase Lactate Dehydrogenase Total Protein Albumin Ur Specific [place] Urine Blood Urine WBC (Auto) Vancomycin Trough Crossmatch 02/10/22 02/11/22 02/11/22 23:20 04:00 04:00 WBC 20.8 H RBC Hgb 7.7 L Hct 24.5 L MCV 64 L MCH 20 L RDW 23.5 H Plt Count Seg Neuts % (Manual) Lymphocytes % (Manual) Nucleated RBC % Seg Neutrophils # Man Lymphocytes # (Manual) Percent Retic Fibrinogen ABG pH POC ABG pO2 ABG pO2 ABG HCO3 ABG O2 Saturation ABG Base Excess ABG Hemoglobin Oxyhemoglobin Carboxyhemoglobin Sodium 148 H Potassium 3.3 L Chloride Carbon Dioxide 39 H BUN 27 H Creatinine 0.5 L Glucose 218 H POC Glucose 196 H Hemoglobin A1c Lactic Acid Calcium 8.3 L Phosphorus Magnesium Direct Bilirubin AST ALT Alkaline Phosphatase Lactate Dehydrogenase Total Protein Albumin Ur Specific [place] Urine Blood Urine WBC (Auto) Vancomycin Trough Crossmatch 02/11/22 02/11/22 02/11/22 05:00 05:57 11:15 WBC RBC Hgb Hct MCV MCH RDW Plt Count Seg Neuts % (Manual) Lymphocytes % (Manual) Nucleated RBC % Seg Neutrophils # Man Lymphocytes # (Manual) Percent Retic Fibrinogen ABG pH 7.459 H POC ABG pO2 ABG pO2 99.8 H ABG HCO3 41.4 H ABG O2 Saturation ABG Base Excess 15.9 H ABG Hemoglobin 7.5 L Oxyhemoglobin Carboxyhemoglobin Sodium Potassium Chloride Carbon Dioxide BUN Creatinine Glucose POC Glucose 173 H 204 H Hemoglobin A1c Lactic Acid Calcium Phosphorus Magnesium Direct Bilirubin AST ALT Alkaline Phosphatase Lactate Dehydrogenase Total Protein Albumin Ur Specific [place] Urine Blood Urine WBC (Auto) Vancomycin Trough Crossmatch 02/11/22 17:15 WBC RBC Hgb Hct MCV MCH RDW Plt Count Seg Neuts % (Manual) Lymphocytes % (Manual) Nucleated RBC % Seg Neutrophils # Man Lymphocytes # (Manual) Percent Retic Fibrinogen ABG pH POC ABG pO2 ABG pO2 ABG HCO3 ABG O2 Saturation ABG Base Excess ABG Hemoglobin Oxyhemoglobin Carboxyhemoglobin Sodium Potassium Chloride Carbon Dioxide BUN Creatinine Glucose POC Glucose 157 H Hemoglobin A1c Lactic Acid Calcium Phosphorus Magnesium Direct Bilirubin AST ALT Alkaline Phosphatase Lactate Dehydrogenase Total Protein Albumin Ur Specific [place] Urine Blood Urine WBC (Auto) Vancomycin Trough Crossmatch
[2022-02-11] MEDS: INSULIN GLARGINE 100 UNITS/ML SUB-Q SCH (21:23)
[2022-02-11] MEDS ORDERED: HYDROCORTISONE SOD SUCC 100 MG/2 ML VIAL IV SCH (22:00)
[2022-02-12] MEDS: INSULIN REGULAR, HUMAN 100 UNITS/1 ML SUB-Q SCH ×4 (00:34→17:55)
[2022-02-12] MEDS: FREE WATER PO SCH ×6 (02:15→22:15)
[2022-02-12] MEDS: fentaNYL DRIP Premix 2,000 MCG/100 ML BAG IV SCH (03:28)
[2022-02-12] MEDS: HYDROCORTISONE SOD SUCC 100 MG/2 ML VIAL IV SCH ×3 (03:43→22:07)
[2022-02-12 04:29] LABS: Hematocrit 24.2 % (30.3-42.9); Hemoglobin 7.5 gm/dl (10.1-14.3); Mean Corpuscular HGB Conc 31 % (30-34); Platelet Count 394 K/mm3 (140-440); Red Blood Count 3.78 M/mm3 (3.65-5.03)
[2022-02-12 04:30] LABS: Mean Corpuscular Volume 64 fl (79-97); Red Cell Distribution Width 25.5 % (13.2-15.2)
[2022-02-12 04:53] LABS: Blood Urea Nitrogen 25 mg/dL (7-17); Calcium 8.4 mg/dL (8.4-10.2); Hemolysis Index 9
[2022-02-12 05:06] LABS: BUN/Creatinine Ratio 63
--- NOTE | 2022-02-12 05:21 | XRay Report ---
XR chest 1V ap INDICATION / CLINICAL INFORMATION: follow up respiratory failure. COMPARISON: Radiograph from yesterday. FINDINGS: SUPPORT DEVICES: Unchanged. HEART /PULMONARY VASCULATURE: Unchanged. LUNGS / PLEURA: Basilar predominant pulmonary opacities appear similar. No sizable pleural effusion. No pneumothorax. IMPRESSION: 1. No significant interval change. Signer Name: Kian Diaz MD Signed: 02/12/2022 5:16 AM Workstation Name: [id number]
[2022-02-12 05:33] LABS: ABG Base Excess 15.3 mmol/L (-2.0-3.0); ABG HCO3 40.7 mmol/L (20.0-26.0); ABG Methemoglobin 0.6 % (0.0-1.5); ABG Oxygen Saturation 97.4 % (95.0-99.0); ABG PCO2 57.6 mm Hg; ABG PH 7.467 pH Units (7.350-7.450); ABG PO2 97.9 mm Hg (80.0-90.0)
[2022-02-12] MEDS: NITROGLYCERIN 2% OINT 1 GM TP SCH ×2 (08:00→14:00)
[2022-02-12] MEDS: FAMOTIDINE 20 MG TAB FEEDTUBE SCH ×2 (09:17→22:08)
--- NOTE | 2022-02-12 09:28 | Progress Note ---
Assessment and Plan Cultures: 01/31/2022 blood culture: No growth 02/01/2022 tracheal aspirate culture: Klebsiella pneumoniae COVID-19 PCR: Negative 02/04/2022 blood culture: no growth so far 02/04/2022 urine culture: No growth 02/04/2022 fungal blood culture: no growth so far A/P: 61-year-old female was admitted from [facility] with hypoglycemia: #Refractory septic shock, severe acidosis, s/p PEA arrest on 02/01/2022. #Bilateral pneumonia: Probably aspiration following PEA arrest. Initial chest x-ray did not show any pneumonia. Now with severe b/l pneumonia, treated with abx. #Possible UTI: UA showed pyuria #Acute hypoxic respiratory failure with ARDS: On mechanical ventilation. Improving #Diabetic ketoacidosis on admission #Pancytopenia, neutropenia, thrombocytopenia: ?sepsis. Seen by hematology. HIV negative. Gradually improving. Recs: -completed ceftriaxone -leucocytosis is likely from steroids, monitor Doroteo Morales MD, FACP, [facility] ([facility] O: [phone] F: [phone] C: [phone] Subjective Date of service: 02/12/22 Principal diagnosis: DKA, s/p cardiopulmonary arrest Interval history: Afebrile. Remains on the vent, stable. Objective - Exam Narrative Exam: Physical Exam: Constitutional: sedated, intubated, on the vent Head, Ears, Nose: Normocephalic, atraumatic. External ears, nose normal Eyes: Conjunctivae/corneas clear. No icterus. No ptosis. Neck: intubated Oral: intubated Cardiovascular: S1, S2 + Respiratory: AE fair bilaterally and equal GI: Soft, bowel sounds + Musculoskeletal: No pedal edema, no cyanosis. Skin: No rash or abscess Hem/Lymphatic: No palpable cervical or supraclavicular nodes. No lymphangitis Psych: no agitation Neurological: sedated, intubated, on the vent, exam limited - Constitutional Vitals: Vital Signs Temp Pulse Resp BP Pulse Ox 98.4 F 112 H 18 138/89 100 02/12/22 04:00 02/12/22 08:00 02/12/22 06:00 02/12/22 08:00 02/12/22 06:00 Temperature -Last 24 Hours Temperature 98.4 F Temperature 98.1 F Temperature 98.1 F Temperature 98.9 F Temperature 98.9 F - Labs CBC & Chem 7: 02/12/22 04:17 02/12/22 04:17 Labs: Abnormal lab results 02/11/22 02/11/22 02/11/22 Range/Units 11:15 17:15 21:21 WBC (4.5-11.0) K/mm3 Hgb (10.1-14.3) gm/dl Hct (30.3-42.9) % MCV (79-97) fl MCH (28-32) pg RDW (13.2-15.2) % ABG pH (7.350-7.450) pH Units ABG pO2 (80.0-90.0) mm Hg ABG HCO3 (20.0-26.0) mmol/L ABG Base Excess (-2.0-3.0) mmol/L ABG Hemoglobin (12.0-16.0) gm/dl Sodium (137-145) mmol/L Carbon Dioxide (22-30) mmol/L BUN (7-17) mg/dL Creatinine (0.6-1.2) mg/dL Glucose (65-100) mg/dL POC Glucose 204 H 157 H 183 H (70-105) mg/dL 02/12/22 02/12/22 02/12/22 Range/Units 00:29 04:17 04:17 WBC 23.9 H (4.5-11.0) K/mm3 Hgb 7.5 L (10.1-14.3) gm/dl Hct 24.2 L (30.3-42.9) % MCV 64 L (79-97) fl MCH 20 L (28-32) pg RDW 25.5 H (13.2-15.2) % ABG pH (7.350-7.450) pH Units ABG pO2 (80.0-90.0) mm Hg ABG HCO3 (20.0-26.0) mmol/L ABG Base Excess (-2.0-3.0) mmol/L ABG Hemoglobin (12.0-16.0) gm/dl Sodium 146 H (137-145) mmol/L Carbon Dioxide 39 H (22-30) mmol/L BUN 25 H (7-17) mg/dL Creatinine 0.4 L (0.6-1.2) mg/dL Glucose 135 H (65-100) mg/dL POC Glucose 197 H (70-105) mg/dL 02/12/22 02/12/22 Range/Units 05:00 05:53 WBC (4.5-11.0) K/mm3 Hgb (10.1-14.3) gm/dl Hct (30.3-42.9) % MCV (79-97) fl MCH (28-32) pg RDW (13.2-15.2) % ABG pH 7.467 H (7.350-7.450) pH Units ABG pO2 97.9 H (80.0-90.0) mm Hg ABG HCO3 40.7 H (20.0-26.0) mmol/L ABG Base Excess 15.3 H (-2.0-3.0) mmol/L ABG Hemoglobin 7.5 L (12.0-16.0) gm/dl Sodium (137-145) mmol/L Carbon Dioxide (22-30) mmol/L BUN (7-17) mg/dL Creatinine (0.6-1.2) mg/dL Glucose (65-100) mg/dL POC Glucose 114 H (70-105) mg/dL
[2022-02-12] MEDS: QUEtiapine 25 MG TAB PO SCH ×2 (10:23→22:07)
[2022-02-12] MEDS: SENNOSIDES/DOCUSATE SODIUM 8.6/50 MG TAB PO SCH ×2 (10:24→22:16)
--- NOTE | 2022-02-12 11:15 | Progress Note ---
Assessment and Plan 02/12/22: Will wean steroids more tomorrow. Drop PEEP to 6 today and attempt PSV this afternoon. If tolerates will leave on PSV until end of day shift and then rest on rate overnight. Hopeful to leave off sedation and control with PRN hiwot [place]. Repeat PSV tomorrow consider ABG, pending on how she looks clinically. Hopeful for conventional ventilation but family is on board if trach and peg are required. 02/11/22: Will drop steroids to 50q8. Will drop PEEP to 8. Once PEEP at 6 , then consult surgery fro trach and peg unless off sedation mental state is better and she can tolerate PSV to assess if able for conventional extubation. Prognosis still remains guarded but improved now that pulmonary status has improved. 02/08/22: Please do not attempt to wean PEEP unless it is compromising clinical state (breath stacking, auto peep, hypotension, etc). Patient is in full blown ARDS needs increased levels of PEEP to help with oxygenation. Now that BP is better, if no improvement would even consider increasing PEEP if needed. Discussed with RT today. Spoke with nursing and [facility] about feet, will obtain arterial dopplers. Hopeful there is no occlusion as given her pancytopenia, not sure that she would be a candidate for anticoagulation. Reviewed [facility] as she was in [place] at least 3x prior to transfer here, twice during the month of January for DKA. She does have a diagnsosis of schizoaffective disorder. Could not find any meds for this. Will try some BID seroquel and see if this helps with mental state. Increases in sedation have not improved respiratory pattern. Patient did not get albumin and lasix last night but did get this am. Repeat CXR in the morning as well as ABG. If patient's alkalemia worsens would stop. Also given improvement in BP would start to wean stress dose steroids. She does have a diagnosis of HTN along with her diabetes and Dementia and Schizoaffective disorder. Also from reviewing the charts at [facility], patient is/was very noncompliant with diabetic regimen so some of her mental state could be vascular disease related to uncontrolled diabetes too. Overall prognosis is guarded. 02/07/22: Family meeting today, please see my event note. albumin and lasix again this morning and then again tonight. Continue steroids. May need insulin drip. Guarded prognosis. 02/06/22: Overall prognosis continues to worsen. She did respond to albumin and lasix with good urine output. Will give again tonight. Bronch results are negative and repeat cultures are negative. CXR continues to be consistent with ARDS. This could be AIP. Now on steroids so will see how she responds. Unfortunately I was not able to meet with the family today but plan to meet with them at 11 tomorrow. appreciate heme help. Given her response to steroids BP salazar, if this is truly acute interstitial pneumonitis, may consider pulse dose steroids. Will discuss with family risks of this as well. 02/05/22: Follow up bronch results. Appreciate ID assistance and changing of abx therapy. COntinue high PEEP and small TV. Ok with permissive hypercapnea as long as pH is >7.2. Follow up heme assessment. Has Kleib in tracheal aspirate. Follow up blood cultures. Will meet with family tomorrow. Overall prognosis is guarded to poor. 02/04/22: Repeat cultures this am while she is febrile. Bronched this am and wash taken from right middle lobe. Worsening CXR is likely related to the volume given yesterday. Will consult heme today as her numbers continue to worsen. Gram Negative Rods found in Tracheal aspirate from 02/01. Follow up speciation of this as well as bronch results. Will send for fungal cultures as well. Needs art line. Stop bob and change to vasopressin. Overall prognosis is very very guarded to poor. 02/03/22: Needs repeat culture with next fever spike. concern now that she is still spiking temps on broad spec abx. may need to broaden even more with an tifungal but will discuss tomorrow with pharmacy tomorrow. pH is better but worsening hypoxemia. CXR shows bilateral infiltrates. Will consider bronch tomorrow for washing to be sent for culture. Consider Heme consult tomorrow. Echo was stable. Guarded to poor prognosis. Sugar is better today. 02/02/22: Wean Vasopressors as tolerated for maps >65. Check echo. Stop insulin therapy. Q1hour fSbs and cover with sliding scale. Repeat ABG later today to follow pH. May need some diamox later. Patient now neutropenic and thrombocytopenic, repeated CBC and still the same. may need to consider heme consult. For now continue broad spec abx therapy. prognosis is guarded to poor. 2 amps of NaBicarb pushed Started on Insulin drip Central line placement secondary to lack of access Aggressive volume resuscitation q1 hour fsbs and q6 hour BMPs for the next 36-48 hours Supplemental O2 Not a candidate for bipap currently given mental state so if her respiratory status deteriorates would need intubation. Guarded prognosis. Spoke with daughter briefly at bedside. She did not get off her cell phone so not able to have a full conversation with her about her mother. CCT 31 minutes. Subjective Date of service: 02/12/22 Principal diagnosis: DKA, s/p cardiopulmonary arrest Interval history: continued improvement, oxygenation [place]azar. CXR is stable. Mental state is better. Objective Vital Signs - 12hr 02/11/22 02/11/22 02/11/22 23:15 23:31 23:45 Temperature Pulse Rate 119 H 115 H 112 H Pulse Rate [ From Monitor] Respiratory 24 17 16 Rate Blood Pressure 126/95 126/95 126/95 O2 Sat by Pulse 99 99 99 Oximetry 02/12/22 02/12/22 02/12/22 00:00 00:15 00:31 Temperature 98.1 F Pulse Rate 109 H 109 H 110 H Pulse Rate [ 109 H From Monitor] Respiratory 2 L 15 16 Rate Blood Pressure 115/76 115/76 115/76 O2 Sat by Pulse 99 99 99 Oximetry 02/12/22 02/12/22 02/12/22 00:45 01:00 01:15 Temperature Pulse Rate 110 H 108 H 109 H Pulse Rate [ From Monitor] Respiratory 14 14 18 Rate Blood Pressure 126/95 113/79 113/79 O2 Sat by Pulse 99 100 100 Oximetry 02/12/22 02/12/22 02/12/22 01:31 01:45 02:00 Temperature Pulse Rate 108 H 113 H 110 H Pulse Rate [ From Monitor] Respiratory 15 19 17 Rate Blood Pressure 113/79 115/76 127/82 O2 Sat by Pulse 100 100 99 Oximetry 02/12/22 02/12/22 02/12/22 02:15 02:31 02:45 Temperature Pulse Rate 111 H 113 H 114 H Pulse Rate [ From Monitor] Respiratory 16 17 18 Rate Blood Pressure 127/82 127/82 127/82 O2 Sat by Pulse 100 100 100 Oximetry 02/12/22 02/12/22 02/12/22 03:00 03:15 03:31 Temperature Pulse Rate 113 H 112 H 111 H Pulse Rate [ From Monitor] Respiratory 16 17 17 Rate Blood Pressure 125/84 125/84 125/84 O2 Sat by Pulse 99 100 100 Oximetry 02/12/22 02/12/22 02/12/22 03:45 04:00 04:15 Temperature 98.4 F Pulse Rate 115 H 112 H 112 H Pulse Rate [ 106 H From Monitor] Respiratory 18 17 18 Rate Blood Pressure 125/84 129/94 129/94 O2 Sat by Pulse 100 99 100 Oximetry 02/12/22 02/12/22 02/12/22 04:31 04:36 04:45 Temperature Pulse Rate 114 H 113 H 114 H Pulse Rate [ From Monitor] Respiratory 19 5 L 16 Rate Blood Pressure 129/94 129/94 129/94 O2 Sat by Pulse 99 100 99 Oximetry 02/12/22 02/12/22 02/12/22 05:00 05:15 05:31 Temperature Pulse Rate 116 H 114 H 116 H Pulse Rate [ From Monitor] Respiratory 22 18 20 Rate Blood Pressure 138/91 138/91 138/91 O2 Sat by Pulse 100 100 100 Oximetry 02/12/22 02/12/22 02/12/22 05:45 06:00 06:15 Temperature Pulse Rate 116 H 111 H 112 H Pulse Rate [ From Monitor] Respiratory 21 18 17 Rate Blood Pressure 138/91 125/89 125/89 O2 Sat by Pulse 100 100 100 Oximetry 02/12/22 02/12/22 02/12/22 06:31 06:45 07:00 Temperature Pulse Rate 114 H 116 H 113 H Pulse Rate [ From Monitor] Respiratory 18 22 19 Rate Blood Pressure 125/89 125/89 125/83 O2 Sat by Pulse 100 100 100 Oximetry 02/12/22 02/12/22 02/12/22 07:15 07:31 07:45 Temperature Pulse Rate 113 H 114 H 112 H Pulse Rate [ From Monitor] Respiratory 18 18 18 Rate Blood Pressure 125/83 125/83 125/83 O2 Sat by Pulse 100 100 100 Oximetry 02/12/22 02/12/22 02/12/22 08:00 08:15 08:31 Temperature 98.5 F Pulse Rate 114 H 119 H 116 H Pulse Rate [ 106 H From Monitor] Respiratory 15 26 H 19 Rate Blood Pressure 127/82 127/82 127/82 O2 Sat by Pulse 100 100 100 Oximetry 02/12/22 02/12/22 02/12/22 08:45 08:47 09:00 Temperature Pulse Rate 117 H 117 H 116 H Pulse Rate [ From Monitor] Respiratory 21 21 Rate Blood Pressure 127/82 127/82 138/89 O2 Sat by Pulse 100 100 99 Oximetry 02/12/22 02/12/22 02/12/22 09:15 09:31 09:45 Temperature Pulse Rate 114 H 114 H 114 H Pulse Rate [ From Monitor] Respiratory 18 20 22 Rate Blood Pressure 138/89 138/89 138/89 O2 Sat by Pulse 100 100 100 Oximetry 02/12/22 10:00 Temperature Pulse Rate 110 H Pulse Rate [ From Monitor] Respiratory 22 Rate Blood Pressure 141/92 O2 Sat by Pulse 100 Oximetry Constitutional: other (on vent, orally intubated) Eyes: non-icteric ENT: oropharynx moist Ascultation: Bilateral: diminished breath sounds Cardiovascular: regular rate and rhythm Gastrointestinal: normoactive bowel sounds Integumentary: normal Neurologic: other (on vent) Psychiatric: other (on vent) CBC and BMP: 02/12/22 04:17 02/12/22 04:17 ABG, PT/INR, D-dimer: ABG ABG pH 7.467 pH Units (7.350-7.450) H 02/12/22 05:00 POC ABG pCO2 37.3 mmHg (32.0-48.0) 02/02/22 04:49 ABG pCO2 57.6 mm Hg 02/12/22 05:00 POC ABG pO2 79.9 mmHg (83-108) L 02/02/22 04:49 ABG pO2 97.9 mm Hg (80.0-90.0) H 02/12/22 05:00 POC ABG HCO3 30.3 02/02/22 04:49 ABG O2 Saturation 97.4 % (95.0-99.0) 02/12/22 05:00 PT/INR, D-dimer PT 14.8 Sec. (12.2-14.9) 02/05/22 08:48 INR 1.02 (0.87-1.13) 02/05/22 08:48 Abnormal lab findings: Abnormal Labs 01/31/22 01/31/22 01/31/22 20:33 20:33 20:33 WBC 12.5 H RBC 6.16 H Hgb Hct MCV 61 L MCH 18 L RDW 19.6 H Plt Count Seg Neuts % (Manual) 98.0 H Lymphocytes % (Manual) 0 L Nucleated RBC % 2.0 H Seg Neutrophils # Man 12.3 H Lymphocytes # (Manual) 0.0 L Percent Retic Fibrinogen ABG pH POC ABG pO2 ABG pO2 ABG HCO3 ABG O2 Saturation ABG Base Excess ABG Hemoglobin Oxyhemoglobin Carboxyhemoglobin Sodium Potassium 5.6 H Chloride 110.1 H Carbon Dioxide 9 L* BUN Creatinine Glucose 254 H POC Glucose Hemoglobin A1c Lactic Acid 2.50 H* Calcium 10.8 H Phosphorus Magnesium Direct Bilirubin AST ALT Alkaline Phosphatase Lactate Dehydrogenase Total Protein Albumin Ur Specific [place] Urine Blood Urine WBC (Auto) Vancomycin Trough Crossmatch 01/31/22 02/01/22 02/01/22 22:49 07:34 08:22 WBC RBC Hgb Hct MCV MCH RDW Plt Count Seg Neuts % (Manual) Lymphocytes % (Manual) Nucleated RBC % Seg Neutrophils # Man Lymphocytes # (Manual) Percent Retic Fibrinogen ABG pH POC ABG pO2 ABG pO2 ABG HCO3 ABG O2 Saturation ABG Base Excess ABG Hemoglobin Oxyhemoglobin Carboxyhemoglobin Sodium Potassium 5.8 H Chloride 115.8 H Carbon Dioxide 3 L* BUN Creatinine Glucose 400 H POC Glucose 368 H Hemoglobin A1c Lactic Acid Calcium Phosphorus Magnesium Direct Bilirubin AST ALT Alkaline Phosphatase Lactate Dehydrogenase Total Protein Albumin Ur Specific [place] 1.035 H Urine Blood Small A Urine WBC (Auto) 142.0 H Vancomycin Trough Crossmatch 02/01/22 02/01/22 02/01/22 09:42 12:01 12:54 WBC RBC Hgb Hct MCV MCH RDW Plt Count Seg Neuts % (Manual) Lymphocytes % (Manual) Nucleated RBC % Seg Neutrophils # Man Lymphocytes # (Manual) Percent Retic Fibrinogen ABG pH 7.044 L* POC ABG pO2 ABG pO2 121.0 H ABG HCO3 3.7 L ABG O2 Saturation ABG Base Excess -24.8 L ABG Hemoglobin 9.3 L Oxyhemoglobin Carboxyhemoglobin Sodium Potassium Chloride Carbon Dioxide BUN Creatinine Glucose POC Glucose 382 H Hemoglobin A1c Lactic Acid Calcium Phosphorus 1.40 L Magnesium 1.30 L Direct Bilirubin AST ALT Alkaline Phosphatase Lactate Dehydrogenase Total Protein Albumin Ur Specific [place] Urine Blood Urine WBC (Auto) Vancomycin Trough Crossmatch 0702/01/22 02/01/22 12:54 12:54 13:27 WBC RBC Hgb Hct MCV MCH RDW Plt Count Seg Neuts % (Manual) Lymphocytes % (Manual) Nucleated RBC % Seg Neutrophils # Man Lymphocytes # (Manual) Percent Retic Fibrinogen ABG pH POC ABG pO2 ABG pO2 ABG HCO3 ABG O2 Saturation ABG Base Excess ABG Hemoglobin Oxyhemoglobin Carboxyhemoglobin Sodium 148 H D Potassium 3.0 L D Chloride 117.3 H Carbon Dioxide 9 L* BUN Creatinine Glucose 439 H POC Glucose 342 H Hemoglobin A1c 11.1 H Lactic Acid Calcium 7.7 L Phosphorus Magnesium Direct Bilirubin AST ALT Alkaline Phosphatase Lactate Dehydrogenase Total Protein Albumin Ur Specific [place] Urine Blood Urine WBC (Auto) Vancomycin Trough Crossmatch 02/01/22 02/01/22 02/01/22 14:48 15:48 16:54 WBC RBC Hgb Hct MCV MCH RDW Plt Count Seg Neuts % (Manual) Lymphocytes % (Manual) Nucleated RBC % Seg Neutrophils # Man Lymphocytes # (Manual) Percent Retic Fibrinogen ABG pH POC ABG pO2 ABG pO2 ABG HCO3 ABG O2 Saturation ABG Base Excess ABG Hemoglobin Oxyhemoglobin Carboxyhemoglobin Sodium Potassium Chloride Carbon Dioxide BUN Creatinine Glucose POC Glucose 394 H 412 H 352 H Hemoglobin A1c Lactic Acid Calcium Phosphorus Magnesium Direct Bilirubin AST ALT Alkaline Phosphatase Lactate Dehydrogenase Total Protein Albumin Ur Specific [place] Urine Blood Urine WBC (Auto) Vancomycin Trough Crossmatch 02/01/22 02/01/22 02/01/22 18:23 18:53 19:26 WBC RBC Hgb Hct MCV MCH RDW Plt Count Seg Neuts % (Manual) Lymphocytes % (Manual) Nucleated RBC % Seg Neutrophils # Man Lymphocytes # (Manual) Percent Retic Fibrinogen ABG pH 7.331 L POC ABG pO2 ABG pO2 121.4 H ABG HCO3 ABG O2 Saturation ABG Base Excess -4.9 L ABG Hemoglobin 8.4 L Oxyhemoglobin Carboxyhemoglobin Sodium Potassium Chloride Carbon Dioxide BUN Creatinine Glucose POC Glucose 350 H 260 H Hemoglobin A1c Lactic Acid Calcium Phosphorus Magnesium Direct Bilirubin AST ALT Alkaline Phosphatase Lactate Dehydrogenase Total Protein Albumin Ur Specific [place] Urine Blood Urine WBC (Auto) Vancomycin Trough Crossmatch 02/01/22 02/01/22 02/01/22 20:20 21:38 22:41 WBC RBC Hgb Hct MCV MCH RDW Plt Count Seg Neuts % (Manual) Lymphocytes % (Manual) Nucleated RBC % Seg Neutrophils # Man Lymphocytes # (Manual) Percent Retic Fibrinogen ABG pH POC ABG pO2 ABG pO2 ABG HCO3 ABG O2 Saturation ABG Base Excess ABG Hemoglobin Oxyhemoglobin Carboxyhemoglobin Sodium Potassium Chloride Carbon Dioxide BUN Creatinine Glucose POC Glucose 266 H 195 H 150 H Hemoglobin A1c Lactic Acid Calcium Phosphorus Magnesium Direct Bilirubin AST ALT Alkaline Phosphatase Lactate Dehydrogenase Total Protein Albumin Ur Specific [place] Urine Blood Urine WBC (Auto) Vancomycin Trough Crossmatch 02/01/22 02/02/22 02/02/22 23:39 00:25 00:25 WBC RBC Hgb Hct MCV MCH RDW Plt Count Seg Neuts % (Manual) Lymphocytes % (Manual) Nucleated RBC % Seg Neutrophils # Man Lymphocytes # (Manual) Percent Retic Fibrinogen ABG pH POC ABG pO2 ABG pO2 ABG HCO3 ABG O2 Saturation ABG Base Excess ABG Hemoglobin Oxyhemoglobin Carboxyhemoglobin Sodium 156 H D Potassium 3.0 L Chloride 114.2 H Carbon Dioxide BUN Creatinine 0.5 L Glucose 63 L POC Glucose 125 H Hemoglobin A1c Lactic Acid 7.10 H* Calcium 8.1 L Phosphorus Magnesium Direct Bilirubin AST ALT Alkaline Phosphatase Lactate Dehydrogenase Total Protein Albumin Ur Specific [place] Urine Blood Urine WBC (Auto) Vancomycin Trough Crossmatch 02/02/22 02/02/22 02/02/22 04:00 04:00 04:35 WBC 1.4 L* RBC Hgb 8.5 L Hct 26.8 L D MCV 57 L MCH 18 L RDW 19.0 H Plt Count 129 L Seg Neuts % (Manual) 33.0 L Lymphocytes % (Manual) 57.0 H Nucleated RBC % Seg Neutrophils # Man 0.5 L Lymphocytes # (Manual) 0.8 L Percent Retic Fibrinogen ABG pH POC ABG pO2 ABG pO2 ABG HCO3 ABG O2 Saturation ABG Base Excess ABG Hemoglobin Oxyhemoglobin Carboxyhemoglobin Sodium 155 H Potassium Chloride 113.1 H Carbon Dioxide BUN Creatinine Glucose 159 H POC Glucose Hemoglobin A1c Lactic Acid 3.10 H* Calcium 7.6 L Phosphorus Magnesium Direct Bilirubin AST ALT Alkaline Phosphatase Lactate Dehydrogenase Total Protein Albumin Ur Specific [place] Urine Blood Urine WBC (Auto) Vancomycin Trough Crossmatch 02/02/22 02/02/22 02/02/22 04:37 04:49 05:43 WBC RBC Hgb Hct MCV MCH RDW Plt Count Seg Neuts % (Manual) Lymphocytes % (Manual) Nucleated RBC % Seg Neutrophils # Man Lymphocytes # (Manual) Percent Retic Fibrinogen ABG pH 7.528 H POC ABG pO2 79.9 L ABG pO2 ABG HCO3 ABG O2 Saturation ABG Base Excess ABG Hemoglobin 8.8 L Oxyhemoglobin Carboxyhemoglobin 0.2 L Sodium Potassium Chloride Carbon Dioxide BUN Creatinine Glucose POC Glucose 116 H 125 H Hemoglobin A1c Lactic Acid Calcium Phosphorus Magnesium Direct Bilirubin AST ALT Alkaline Phosphatase Lactate Dehydrogenase Total Protein Albumin Ur Specific [place] Urine Blood Urine WBC (Auto) Vancomycin Trough Crossmatch 02/02/22 02/02/22 02/02/22 06:52 09:02 09:05 WBC RBC Hgb Hct MCV MCH RDW Plt Count Seg Neuts % (Manual) Lymphocytes % (Manual) Nucleated RBC % Seg Neutrophils # Man Lymphocytes # (Manual) Percent Retic Fibrinogen ABG pH POC ABG pO2 ABG pO2 ABG HCO3 ABG O2 Saturation ABG Base Excess ABG Hemoglobin Oxyhemoglobin Carboxyhemoglobin Sodium 154 H Potassium 3.3 L Chloride 113.3 H Carbon Dioxide BUN Creatinine Glucose 35 L* POC Glucose 110 H 35 L Hemoglobin A1c Lactic Acid Calcium 7.4 L Phosphorus 1.70 L D Magnesium 2.50 H Direct Bilirubin AST ALT Alkaline Phosphatase Lactate Dehydrogenase Total Protein Albumin Ur Specific [place] Urine Blood Urine WBC (Auto) Vancomycin Trough Crossmatch 02/02/22 02/02/22 02/02/22 09:05 09:30 09:41 WBC 2.6 L RBC Hgb 8.0 L Hct 25.0 L MCV 57 L MCH 18 L RDW 18.8 H Plt Count 97 L Seg Neuts % (Manual) Lymphocytes % (Manual) 12.0 L Nucleated RBC % 10.0 H Seg Neutrophils # Man 1.7 L Lymphocytes # (Manual) 0.3 L Percent Retic Fibrinogen ABG pH POC ABG pO2 ABG pO2 ABG HCO3 ABG O2 Saturation ABG Base Excess ABG Hemoglobin Oxyhemoglobin Carboxyhemoglobin Sodium Potassium Chloride Carbon Dioxide BUN Creatinine Glucose POC Glucose 119 H Hemoglobin A1c Lactic Acid 7.10 H* Calcium Phosphorus Magnesium Direct Bilirubin AST ALT Alkaline Phosphatase Lactate Dehydrogenase Total Protein Albumin Ur Specific [place] Urine Blood Urine WBC (Auto) Vancomycin Trough Crossmatch 02/02/22 02/02/22 02/02/22 10:17 12:32 15:39 WBC RBC Hgb Hct MCV MCH RDW Plt Count Seg Neuts % (Manual) Lymphocytes % (Manual) Nucleated RBC % Seg Neutrophils # Man Lymphocytes # (Manual) Percent Retic Fibrinogen ABG pH POC ABG pO2 ABG pO2 ABG HCO3 ABG O2 Saturation ABG Base Excess ABG Hemoglobin Oxyhemoglobin Carboxyhemoglobin Sodium Potassium Chloride Carbon Dioxide BUN Creatinine Glucose POC Glucose 120 H 166 H 263 H Hemoglobin A1c Lactic Acid Calcium Phosphorus Magnesium Direct Bilirubin AST ALT Alkaline Phosphatase Lactate Dehydrogenase Total Protein Albumin Ur Specific [place] Urine Blood Urine WBC (Auto) Vancomycin Trough Crossmatch 02/02/22 02/02/22 02/02/22 17:07 17:50 Unknown WBC RBC Hgb Hct MCV MCH RDW Plt Count Seg Neuts % (Manual) Lymphocytes % (Manual) Nucleated RBC % Seg Neutrophils # Man Lymphocytes # (Manual) Percent Retic Fibrinogen ABG pH 7.457 H POC ABG pO2 ABG pO2 71.0 L ABG HCO3 ABG O2 Saturation 94.5 L ABG Base Excess ABG Hemoglobin 9.2 L Oxyhemoglobin 93.0 L Carboxyhemoglobin Sodium 147 H Potassium 5.5 H D Chloride 110.8 H Carbon Dioxide BUN Creatinine Glucose 271 H POC Glucose 231 H Hemoglobin A1c Lactic Acid Calcium 7.3 L Phosphorus Magnesium Direct Bilirubin AST ALT Alkaline Phosphatase Lactate Dehydrogenase Total Protein Albumin Ur Specific [place] Urine Blood Urine WBC (Auto) Vancomycin Trough Crossmatch 02/03/22 02/03/22 02/03/22 00:08 04:00 04:00 WBC 3.7 L RBC Hgb 8.0 L Hct 25.5 L MCV 58 L MCH 18 L RDW 18.2 H Plt Count 79 L Seg Neuts % (Manual) 76.0 H Lymphocytes % (Manual) 2.0 L Nucleated RBC % 4.0 H Seg Neutrophils # Man Lymphocytes # (Manual) 0.1 L Percent Retic Fibrinogen ABG pH POC ABG pO2 ABG pO2 ABG HCO3 ABG O2 Saturation ABG Base Excess ABG Hemoglobin Oxyhemoglobin Carboxyhemoglobin Sodium 147 H Potassium Chloride 112.9 H Carbon Dioxide BUN Creatinine Glucose 281 H POC Glucose 231 H Hemoglobin A1c Lactic Acid Calcium 7.8 L Phosphorus Magnesium Direct Bilirubin 0.3 H AST 172 H ALT 89 H Alkaline Phosphatase Lactate Dehydrogenase Total Protein 4.7 L D Albumin 2.0 L Ur Specific [place] Urine Blood Urine WBC (Auto) Vancomycin Trough Crossmatch 02/03/22 02/03/22 02/03/22 04:20 05:26 11:38 WBC RBC Hgb Hct MCV MCH RDW Plt Count Seg Neuts % (Manual) Lymphocytes % (Manual) Nucleated RBC % Seg Neutrophils # Man Lymphocytes # (Manual) Percent Retic Fibrinogen ABG pH POC ABG pO2 ABG pO2 75.5 L ABG HCO3 ABG O2 Saturation ABG Base Excess -2.8 L ABG Hemoglobin 8.1 L Oxyhemoglobin 94.6 L Carboxyhemoglobin Sodium Potassium Chloride Carbon Dioxide BUN Creatinine Glucose POC Glucose 247 H 196 H Hemoglobin A1c Lactic Acid Calcium Phosphorus Magnesium Direct Bilirubin AST ALT Alkaline Phosphatase Lactate Dehydrogenase Total Protein Albumin Ur Specific [place] Urine Blood Urine WBC (Auto) Vancomycin Trough Crossmatch 02/03/22 02/04/22 02/04/22 16:27 02:44 03:18 WBC 1.2 L* RBC Hgb 8.2 L Hct 26.6 L MCV 59 L MCH 18 L RDW 19.6 H Plt Count 50 L Seg Neuts % (Manual) Lymphocytes % (Manual) Nucleated RBC % Seg Neutrophils # Man Lymphocytes # (Manual) Percent Retic Fibrinogen ABG pH POC ABG pO2 ABG pO2 ABG HCO3 ABG O2 Saturation ABG Base Excess ABG Hemoglobin Oxyhemoglobin Carboxyhemoglobin Sodium 148 H Potassium Chloride 116.3 H Carbon Dioxide BUN Creatinine Glucose 139 H POC Glucose 119 H Hemoglobin A1c Lactic Acid Calcium Phosphorus Magnesium Direct Bilirubin 0.3 H AST 92 H ALT 76 H Alkaline Phosphatase Lactate Dehydrogenase Total Protein 4.7 L Albumin 1.6 L Ur Specific [place] Urine Blood Urine WBC (Auto) Vancomycin Trough Crossmatch 02/04/22 02/04/22 02/04/22 05:15 05:26 09:15 WBC RBC Hgb Hct MCV MCH RDW Plt Count Seg Neuts % (Manual) Lymphocytes % (Manual) Nucleated RBC % Seg Neutrophils # Man Lymphocytes # (Manual) Percent Retic Fibrinogen ABG pH 7.311 L POC ABG pO2 ABG pO2 50.1 L ABG HCO3 ABG O2 Saturation 83.6 L ABG Base Excess ABG Hemoglobin 8.6 L Oxyhemoglobin 81.9 L Carboxyhemoglobin Sodium Potassium Chloride Carbon Dioxide BUN Creatinine Glucose POC Glucose 115 H Hemoglobin A1c Lactic Acid Calcium Phosphorus Magnesium Direct Bilirubin AST ALT Alkaline Phosphatase Lactate Dehydrogenase Total Protein Albumin Ur Specific [place] Urine Blood Large A Urine WBC (Auto) 12.0 H Vancomycin Trough Crossmatch 02/04/22 02/04/22 02/04/22 11:17 14:37 17:04 WBC RBC Hgb Hct MCV MCH RDW Plt Count Seg Neuts % (Manual) Lymphocytes % (Manual) Nucleated RBC % Seg Neutrophils # Man Lymphocytes # (Manual) Percent Retic Fibrinogen ABG pH POC ABG pO2 ABG pO2 ABG HCO3 ABG O2 Saturation ABG Base Excess ABG Hemoglobin Oxyhemoglobin Carboxyhemoglobin Sodium Potassium Chloride Carbon Dioxide BUN Creatinine Glucose POC Glucose 166 H 109 H Hemoglobin A1c Lactic Acid Calcium Phosphorus Magnesium Direct Bilirubin AST 87 H ALT 75 H Alkaline Phosphatase 137 H Lactate Dehydrogenase Total Protein 4.6 L Albumin 1.7 L Ur Specific [place] Urine Blood Urine WBC (Auto) Vancomycin Trough Crossmatch 02/04/22 02/04/22 02/04/22 20:15 20:22 20:22 WBC RBC Hgb 7.1 L Hct 22.6 L MCV MCH RDW Plt Count Seg Neuts % (Manual) Lymphocytes % (Manual) Nucleated RBC % Seg Neutrophils # Man Lymphocytes # (Manual) Percent Retic Fibrinogen ABG pH 7.292 L POC ABG pO2 ABG pO2 40.3 L ABG HCO3 ABG O2 Saturation 72.1 L ABG Base Excess -2.2 L ABG Hemoglobin 7.0 L Oxyhemoglobin 70.5 L Carboxyhemoglobin Sodium Potassium Chloride Carbon Dioxide BUN Creatinine Glucose POC Glucose Hemoglobin A1c Lactic Acid 3.00 H* Calcium Phosphorus Magnesium Direct Bilirubin AST ALT Alkaline Phosphatase Lactate Dehydrogenase Total Protein Albumin Ur Specific [place] Urine Blood Urine WBC (Auto) Vancomycin Trough Crossmatch 02/04/22 02/04/22 02/05/22 20:22 23:03 04:40 WBC 3.1 L RBC Hgb 9.6 L Hct 30.1 L D MCV 64 L MCH 20 L RDW 26.9 H Plt Count 50 L Seg Neuts % (Manual) Lymphocytes % (Manual) Nucleated RBC % Seg Neutrophils # Man Lymphocytes # (Manual) Percent Retic Fibrinogen ABG pH POC ABG pO2 ABG pO2 ABG HCO3 ABG O2 Saturation ABG Base Excess ABG Hemoglobin Oxyhemoglobin Carboxyhemoglobin Sodium Potassium Chloride Carbon Dioxide BUN Creatinine Glucose POC Glucose 171 H Hemoglobin A1c Lactic Acid Calcium Phosphorus Magnesium Direct Bilirubin AST ALT Alkaline Phosphatase Lactate Dehydrogenase Total Protein Albumin Ur Specific [place] Urine Blood Urine WBC (Auto) Vancomycin Trough Crossmatch See Detail 02/05/22 02/05/22 02/05/22 04:40 04:40 04:43 WBC RBC Hgb Hct MCV MCH RDW Plt Count Seg Neuts % (Manual) Lymphocytes % (Manual) Nucleated RBC % Seg Neutrophils # Man Lymphocytes # (Manual) Percent Retic Fibrinogen ABG pH POC ABG pO2 ABG pO2 ABG HCO3 ABG O2 Saturation ABG Base Excess ABG Hemoglobin Oxyhemoglobin Carboxyhemoglobin Sodium 148 H Potassium Chloride 113.2 H Carbon Dioxide BUN 21 H Creatinine Glucose 155 H POC Glucose 156 H Hemoglobin A1c Lactic Acid Calcium Phosphorus Magnesium Direct Bilirubin AST 84 H ALT 67 H Alkaline Phosphatase 152 H Lactate Dehydrogenase 879 H Total Protein 5.0 L Albumin 1.8 L Ur Specific [place] Urine Blood Urine WBC (Auto) Vancomycin Trough Crossmatch 02/05/22 02/05/22 02/05/22 08:10 08:48 08:48 WBC RBC Hgb Hct MCV MCH RDW Plt Count Seg Neuts % (Manual) Lymphocytes % (Manual) Nucleated RBC % Seg Neutrophils # Man Lymphocytes # (Manual) Percent Retic Fibrinogen 795 H ABG pH POC ABG pO2 ABG pO2 57.1 L ABG HCO3 27.8 H ABG O2 Saturation 90.8 L ABG Base Excess ABG Hemoglobin 8.5 L Oxyhemoglobin 88.9 L Carboxyhemoglobin Sodium Potassium Chloride Carbon Dioxide BUN Creatinine Glucose POC Glucose Hemoglobin A1c Lactic Acid 2.90 H* Calcium Phosphorus Magnesium Direct Bilirubin AST ALT Alkaline Phosphatase Lactate Dehydrogenase Total Protein Albumin Ur Specific [place] Urine Blood Urine WBC (Auto) Vancomycin Trough Crossmatch 02/05/22 02/05/22 02/05/22 11:46 17:45 Unknown WBC RBC Hgb Hct MCV MCH RDW Plt Count Seg Neuts % (Manual) Lymphocytes % (Manual) Nucleated RBC % Seg Neutrophils # Man Lymphocytes # (Manual) Percent Retic Fibrinogen ABG pH POC ABG pO2 ABG pO2 ABG HCO3 ABG O2 Saturation ABG Base Excess ABG Hemoglobin Oxyhemoglobin Carboxyhemoglobin Sodium Potassium Chloride Carbon Dioxide BUN Creatinine Glucose POC Glucose 61 L 133 H Hemoglobin A1c Lactic Acid Calcium Phosphorus Magnesium Direct Bilirubin AST ALT Alkaline Phosphatase Lactate Dehydrogenase Total Protein Albumin Ur Specific [place] Urine Blood Urine WBC (Auto) Vancomycin Trough 28.6 H Crossmatch 02/05/22 02/06/22 02/06/22 23:59 04:33 04:33 WBC RBC Hgb 8.4 L Hct 26.1 L MCV 64 L MCH 21 L RDW 26.2 H Plt Count 38 L Seg Neuts % (Manual) Lymphocytes % (Manual) Nucleated RBC % Seg Neutrophils # Man Lymphocytes # (Manual) Percent Retic Fibrinogen ABG pH POC ABG pO2 ABG pO2 ABG HCO3 ABG O2 Saturation ABG Base Excess ABG Hemoglobin Oxyhemoglobin Carboxyhemoglobin Sodium 146 H Potassium 3.4 L Chloride Carbon Dioxide 31 H BUN 21 H Creatinine Glucose 230 H POC Glucose 275 H Hemoglobin A1c Lactic Acid Calcium Phosphorus Magnesium Direct Bilirubin AST 70 H ALT Alkaline Phosphatase 197 H Lactate Dehydrogenase Total Protein 5.3 L Albumin 2.4 L Ur Specific [place] Urine Blood Urine WBC (Auto) Vancomycin Trough Crossmatch 02/06/22 02/06/22 02/06/22 04:33 04:50 06:19 WBC RBC Hgb Hct MCV MCH RDW Plt Count Seg Neuts % (Manual) Lymphocytes % (Manual) Nucleated RBC % Seg Neutrophils # Man Lymphocytes # (Manual) Percent Retic Fibrinogen ABG pH 7.330 L POC ABG pO2 ABG pO2 57.9 L ABG HCO3 31.3 H ABG O2 Saturation 89.6 L ABG Base Excess 4.5 H ABG Hemoglobin 8.1 L Oxyhemoglobin 87.7 L Carboxyhemoglobin Sodium Potassium Chloride Carbon Dioxide BUN Creatinine Glucose POC Glucose 219 H Hemoglobin A1c Lactic Acid 3.10 H* Calcium Phosphorus Magnesium Direct Bilirubin AST ALT Alkaline Phosphatase Lactate Dehydrogenase Total Protein Albumin Ur Specific [place] Urine Blood Urine WBC (Auto) Vancomycin Trough Crossmatch 02/06/22 02/06/22 02/06/22 11:24 11:50 12:26 WBC RBC Hgb Hct MCV MCH RDW Plt Count Seg Neuts % (Manual) Lymphocytes % (Manual) Nucleated RBC % Seg Neutrophils # Man Lymphocytes # (Manual) Percent Retic Fibrinogen ABG pH 7.298 L POC ABG pO2 ABG pO2 43.3 L ABG HCO3 36.7 H ABG O2 Saturation 74.9 L ABG Base Excess 8.8 H ABG Hemoglobin 8.2 L Oxyhemoglobin 73.3 L Carboxyhemoglobin Sodium Potassium Chloride Carbon Dioxide BUN Creatinine Glucose POC Glucose 118 H Hemoglobin A1c Lactic Acid 2.50 H* Calcium Phosphorus Magnesium Direct Bilirubin AST ALT Alkaline Phosphatase Lactate Dehydrogenase Total Protein Albumin Ur Specific [place] Urine Blood Urine WBC (Auto) Vancomycin Trough Crossmatch 02/06/22 02/06/22 02/07/22 17:41 21:41 00:17 WBC RBC Hgb Hct MCV MCH RDW Plt Count Seg Neuts % (Manual) Lymphocytes % (Manual) Nucleated RBC % Seg Neutrophils # Man Lymphocytes # (Manual) Percent Retic Fibrinogen ABG pH POC ABG pO2 ABG pO2 ABG HCO3 ABG O2 Saturation ABG Base Excess ABG Hemoglobin Oxyhemoglobin Carboxyhemoglobin Sodium Potassium Chloride Carbon Dioxide BUN Creatinine Glucose POC Glucose 208 H 282 H 342 H Hemoglobin A1c Lactic Acid Calcium Phosphorus Magnesium Direct Bilirubin AST ALT Alkaline Phosphatase Lactate Dehydrogenase Total Protein Albumin Ur Specific [place] Urine Blood Urine WBC (Auto) Vancomycin Trough Crossmatch 02/07/22 02/07/22 02/07/22 00:19 04:12 04:12 WBC 13.1 H RBC Hgb 8.5 L Hct 26.4 L MCV 62 L MCH 20 L RDW 24.2 H Plt Count 57 L Seg Neuts % (Manual) Lymphocytes % (Manual) Nucleated RBC % Seg Neutrophils # Man Lymphocytes # (Manual) Percent Retic Fibrinogen ABG pH POC ABG pO2 ABG pO2 ABG HCO3 ABG O2 Saturation ABG Base Excess ABG Hemoglobin Oxyhemoglobin Carboxyhemoglobin Sodium 149 H Potassium 3.1 L Chloride Carbon Dioxide 38 H D BUN 23 H Creatinine Glucose 298 H POC Glucose 209 H Hemoglobin A1c Lactic Acid Calcium Phosphorus 2.10 L Magnesium Direct Bilirubin AST 49 H ALT Alkaline Phosphatase 248 H Lactate Dehydrogenase Total Protein 5.4 L Albumin 2.7 L Ur Specific [place] Urine Blood Urine WBC (Auto) Vancomycin Trough Crossmatch 02/07/22 02/07/22 02/07/22 04:40 07:09 07:13 WBC RBC Hgb Hct MCV MCH RDW Plt Count Seg Neuts % (Manual) Lymphocytes % (Manual) Nucleated RBC % Seg Neutrophils # Man Lymphocytes # (Manual) Percent Retic Fibrinogen ABG pH 7.474 H POC ABG pO2 ABG pO2 62.1 L ABG HCO3 39.1 H ABG O2 Saturation 94.7 L ABG Base Excess 13.9 H ABG Hemoglobin 8.6 L Oxyhemoglobin 93.0 L Carboxyhemoglobin Sodium Potassium Chloride Carbon Dioxide BUN Creatinine Glucose POC Glucose 399 H 418 H Hemoglobin A1c Lactic Acid Calcium Phosphorus Magnesium Direct Bilirubin AST ALT Alkaline Phosphatase Lactate Dehydrogenase Total Protein Albumin Ur Specific [place] Urine Blood Urine WBC (Auto) Vancomycin Trough Crossmatch 02/07/22 02/07/22 02/07/22 12:20 17:29 23:37 WBC RBC Hgb Hct MCV MCH RDW Plt Count Seg Neuts % (Manual) Lymphocytes % (Manual) Nucleated RBC % Seg Neutrophils # Man Lymphocytes # (Manual) Percent Retic Fibrinogen ABG pH POC ABG pO2 ABG pO2 ABG HCO3 ABG O2 Saturation ABG Base Excess ABG Hemoglobin Oxyhemoglobin Carboxyhemoglobin Sodium Potassium Chloride Carbon Dioxide BUN Creatinine Glucose POC Glucose 229 H 159 H 236 H Hemoglobin A1c Lactic Acid Calcium Phosphorus Magnesium Direct Bilirubin AST ALT Alkaline Phosphatase Lactate Dehydrogenase Total Protein Albumin Ur Specific [place] Urine Blood Urine WBC (Auto) Vancomycin Trough Crossmatch 02/08/22 02/08/22 02/08/22 03:55 03:55 05:20 WBC 14.7 H RBC Hgb 7.7 L Hct 25.0 L MCV 64 L MCH 20 L RDW 25.1 H Plt Count 79 L Seg Neuts % (Manual) Lymphocytes % (Manual) Nucleated RBC % Seg Neutrophils # Man Lymphocytes # (Manual) Percent Retic 0.65 L Fibrinogen ABG pH POC ABG pO2 ABG pO2 ABG HCO3 ABG O2 Saturation ABG Base Excess ABG Hemoglobin Oxyhemoglobin Carboxyhemoglobin Sodium Potassium 3.0 L Chloride 93.9 L Carbon Dioxide 44 H* BUN 30 H Creatinine Glucose 229 H POC Glucose 235 H Hemoglobin A1c Lactic Acid Calcium 8.3 L Phosphorus 2.30 L Magnesium Direct Bilirubin AST 77 H ALT Alkaline Phosphatase 246 H Lactate Dehydrogenase Total Protein 5.2 L Albumin 2.7 L Ur Specific [place] Urine Blood Urine WBC (Auto) Vancomycin Trough Crossmatch 02/08/22 02/08/22 02/08/22 11:47 16:36 21:41 WBC RBC Hgb Hct MCV MCH RDW Plt Count Seg Neuts % (Manual) Lymphocytes % (Manual) Nucleated RBC % Seg Neutrophils # Man Lymphocytes # (Manual) Percent Retic Fibrinogen ABG pH POC ABG pO2 ABG pO2 ABG HCO3 ABG O2 Saturation ABG Base Excess ABG Hemoglobin Oxyhemoglobin Carboxyhemoglobin Sodium Potassium Chloride Carbon Dioxide BUN Creatinine Glucose POC Glucose 193 H 205 H 292 H Hemoglobin A1c Lactic Acid Calcium Phosphorus Magnesium Direct Bilirubin AST ALT Alkaline Phosphatase Lactate Dehydrogenase Total Protein Albumin Ur Specific [place] Urine Blood Urine WBC (Auto) Vancomycin Trough Crossmatch 02/08/22 02/08/22 02/09/22 Unknown 23:59 04:00 WBC 16.4 H RBC Hgb 8.2 L Hct 26.3 L MCV 63 L MCH 20 L RDW 23.9 H Plt Count 128 L Seg Neuts % (Manual) Lymphocytes % (Manual) Nucleated RBC % Seg Neutrophils # Man Lymphocytes # (Manual) Percent Retic Fibrinogen ABG pH 7.488 H POC ABG pO2 ABG pO2 63.1 L ABG HCO3 45.5 H ABG O2 Saturation 94.1 L ABG Base Excess 19.8 H ABG Hemoglobin 8.7 L Oxyhemoglobin 92.4 L Carboxyhemoglobin Sodium Potassium Chloride Carbon Dioxide BUN Creatinine Glucose POC Glucose 342 H Hemoglobin A1c Lactic Acid Calcium Phosphorus Magnesium Direct Bilirubin AST ALT Alkaline Phosphatase Lactate Dehydrogenase Total Protein Albumin Ur Specific [place] Urine Blood Urine WBC (Auto) Vancomycin Trough Crossmatch 02/09/22 02/09/22 02/09/22 04:00 05:30 06:07 WBC RBC Hgb Hct MCV MCH RDW Plt Count Seg Neuts % (Manual) Lymphocytes % (Manual) Nucleated RBC % Seg Neutrophils # Man Lymphocytes # (Manual) Percent Retic Fibrinogen ABG pH 7.539 H POC ABG pO2 ABG pO2 210.4 H ABG HCO3 42.4 H ABG O2 Saturation 99.3 H ABG Base Excess 18.0 H ABG Hemoglobin 7.8 L Oxyhemoglobin Carboxyhemoglobin Sodium 149 H Potassium 3.1 L Chloride 97.6 L Carbon Dioxide 42 H* BUN 27 H Creatinine Glucose 257 H POC Glucose 260 H Hemoglobin A1c Lactic Acid Calcium 8.2 L Phosphorus 1.90 L Magnesium Direct Bilirubin AST 81 H ALT Alkaline Phosphatase 229 H Lactate Dehydrogenase Total Protein 5.4 L Albumin 2.6 L Ur Specific [place] Urine Blood Urine WBC (Auto) Vancomycin Trough Crossmatch 02/09/22 02/09/22 02/09/22 11:16 17:33 20:25 WBC RBC Hgb Hct MCV MCH RDW Plt Count Seg Neuts % (Manual) Lymphocytes % (Manual) Nucleated RBC % Seg Neutrophils # Man Lymphocytes # (Manual) Percent Retic Fibrinogen ABG pH 7.504 H POC ABG pO2 ABG pO2 79.7 L ABG HCO3 44.2 H ABG O2 Saturation ABG Base Excess 19.2 H ABG Hemoglobin 7.0 L Oxyhemoglobin Carboxyhemoglobin Sodium Potassium Chloride Carbon Dioxide BUN Creatinine Glucose POC Glucose 184 H 123 H Hemoglobin A1c Lactic Acid Calcium Phosphorus Magnesium Direct Bilirubin AST ALT Alkaline Phosphatase Lactate Dehydrogenase Total Protein Albumin Ur Specific [place] Urine Blood Urine WBC (Auto) Vancomycin Trough Crossmatch 02/09/22 02/09/22 02/10/22 21:16 23:13 03:40 WBC 17.2 H RBC Hgb 7.9 L Hct 25.3 L MCV 63 L MCH 20 L RDW 20.7 H Plt Count Seg Neuts % (Manual) Lymphocytes % (Manual) Nucleated RBC % Seg Neutrophils # Man Lymphocytes # (Manual) Percent Retic Fibrinogen ABG pH POC ABG pO2 ABG pO2 ABG HCO3 ABG O2 Saturation ABG Base Excess ABG Hemoglobin Oxyhemoglobin Carboxyhemoglobin Sodium Potassium Chloride Carbon Dioxide BUN Creatinine Glucose POC Glucose 186 H 276 H Hemoglobin A1c Lactic Acid Calcium Phosphorus Magnesium Direct Bilirubin AST ALT Alkaline Phosphatase Lactate Dehydrogenase Total Protein Albumin Ur Specific [place] Urine Blood Urine WBC (Auto) Vancomycin Trough Crossmatch 02/10/22 02/10/22 02/10/22 03:40 04:17 04:17 WBC RBC Hgb Hct MCV MCH RDW Plt Count Seg Neuts % (Manual) Lymphocytes % (Manual) Nucleated RBC % Seg Neutrophils # Man Lymphocytes # (Manual) Percent Retic Fibrinogen ABG pH 7.468 H POC ABG pO2 ABG pO2 124.2 H ABG HCO3 42.1 H ABG O2 Saturation ABG Base Excess 16.6 H ABG Hemoglobin 7.6 L Oxyhemoglobin Carboxyhemoglobin Sodium 149 H Potassium 3.2 L Chloride Carbon Dioxide 38 H BUN 26 H Creatinine 0.5 L Glucose 188 H POC Glucose 189 H Hemoglobin A1c Lactic Acid Calcium 8.3 L Phosphorus 2.10 L Magnesium Direct Bilirubin AST 120 H ALT 80 H Alkaline Phosphatase 207 H Lactate Dehydrogenase Total Protein 5.3 L Albumin 2.4 L Ur Specific [place] Urine Blood Urine WBC (Auto) Vancomycin Trough Crossmatch 02/10/22 02/10/22 02/10/22 11:46 16:27 21:15 WBC RBC Hgb Hct MCV MCH RDW Plt Count Seg Neuts % (Manual) Lymphocytes % (Manual) Nucleated RBC % Seg Neutrophils # Man Lymphocytes # (Manual) Percent Retic Fibrinogen ABG pH POC ABG pO2 ABG pO2 ABG HCO3 ABG O2 Saturation ABG Base Excess ABG Hemoglobin Oxyhemoglobin Carboxyhemoglobin Sodium Potassium Chloride Carbon Dioxide BUN Creatinine Glucose POC Glucose 189 H 198 H 261 H Hemoglobin A1c Lactic Acid Calcium Phosphorus Magnesium Direct Bilirubin AST ALT Alkaline Phosphatase Lactate Dehydrogenase Total Protein Albumin Ur Specific [place] Urine Blood Urine WBC (Auto) Vancomycin Trough Crossmatch 02/10/22 02/11/22 02/11/22 23:20 04:00 04:00 WBC 20.8 H RBC Hgb 7.7 L Hct 24.5 L MCV 64 L MCH 20 L RDW 23.5 H Plt Count Seg Neuts % (Manual) Lymphocytes % (Manual) Nucleated RBC % Seg Neutrophils # Man Lymphocytes # (Manual) Percent Retic Fibrinogen ABG pH POC ABG pO2 ABG pO2 ABG HCO3 ABG O2 Saturation ABG Base Excess ABG Hemoglobin Oxyhemoglobin Carboxyhemoglobin Sodium 148 H Potassium 3.3 L Chloride Carbon Dioxide 39 H BUN 27 H Creatinine 0.5 L Glucose 218 H POC Glucose 196 H Hemoglobin A1c Lactic Acid Calcium 8.3 L Phosphorus Magnesium Direct Bilirubin AST ALT Alkaline Phosphatase Lactate Dehydrogenase Total Protein Albumin Ur Specific [place] Urine Blood Urine WBC (Auto) Vancomycin Trough Crossmatch 02/11/22 02/11/22 02/11/22 05:00 05:57 11:15 WBC RBC Hgb Hct MCV MCH RDW Plt Count Seg Neuts % (Manual) Lymphocytes % (Manual) Nucleated RBC % Seg Neutrophils # Man Lymphocytes # (Manual) Percent Retic Fibrinogen ABG pH 7.459 H POC ABG pO2 ABG pO2 99.8 H ABG HCO3 41.4 H ABG O2 Saturation ABG Base Excess 15.9 H ABG Hemoglobin 7.5 L Oxyhemoglobin Carboxyhemoglobin Sodium Potassium Chloride Carbon Dioxide BUN Creatinine Glucose POC Glucose 173 H 204 H Hemoglobin A1c Lactic Acid Calcium Phosphorus Magnesium Direct Bilirubin AST ALT Alkaline Phosphatase Lactate Dehydrogenase Total Protein Albumin Ur Specific [place] Urine Blood Urine WBC (Auto) Vancomycin Trough Crossmatch 02/11/22 02/11/22 02/12/22 17:15 21:21 00:29 WBC RBC Hgb Hct MCV MCH RDW Plt Count Seg Neuts % (Manual) Lymphocytes % (Manual) Nucleated RBC % Seg Neutrophils # Man Lymphocytes # (Manual) Percent Retic Fibrinogen ABG pH POC ABG pO2 ABG pO2 ABG HCO3 ABG O2 Saturation ABG Base Excess ABG Hemoglobin Oxyhemoglobin Carboxyhemoglobin Sodium Potassium Chloride Carbon Dioxide BUN Creatinine Glucose POC Glucose 157 H 183 H 197 H Hemoglobin A1c Lactic Acid Calcium Phosphorus Magnesium Direct Bilirubin AST ALT Alkaline Phosphatase Lactate Dehydrogenase Total Protein Albumin Ur Specific [place] Urine Blood Urine WBC (Auto) Vancomycin Trough Crossmatch 02/12/22 02/12/22 02/12/22 04:17 04:17 05:00 WBC 23.9 H RBC Hgb 7.5 L Hct 24.2 L MCV 64 L MCH 20 L RDW 25.5 H Plt Count Seg Neuts % (Manual) Lymphocytes % (Manual) Nucleated RBC % Seg Neutrophils # Man Lymphocytes # (Manual) Percent Retic Fibrinogen ABG pH 7.467 H POC ABG pO2 ABG pO2 97.9 H ABG HCO3 40.7 H ABG O2 Saturation ABG Base Excess 15.3 H ABG Hemoglobin 7.5 L Oxyhemoglobin Carboxyhemoglobin Sodium 146 H Potassium Chloride Carbon Dioxide 39 H BUN 25 H Creatinine 0.4 L Glucose 135 H POC Glucose Hemoglobin A1c Lactic Acid Calcium Phosphorus Magnesium Direct Bilirubin AST ALT Alkaline Phosphatase Lactate Dehydrogenase Total Protein Albumin Ur Specific [place] Urine Blood Urine WBC (Auto) Vancomycin Trough Crossmatch 02/12/22 05:53 WBC RBC Hgb Hct MCV MCH RDW Plt Count Seg Neuts % (Manual) Lymphocytes % (Manual) Nucleated RBC % Seg Neutrophils # Man Lymphocytes # (Manual) Percent Retic Fibrinogen ABG pH POC ABG pO2 ABG pO2 ABG HCO3 ABG O2 Saturation ABG Base Excess ABG Hemoglobin Oxyhemoglobin Carboxyhemoglobin Sodium Potassium Chloride Carbon Dioxide BUN Creatinine Glucose POC Glucose 114 H Hemoglobin A1c Lactic Acid Calcium Phosphorus Magnesium Direct Bilirubin AST ALT Alkaline Phosphatase Lactate Dehydrogenase Total Protein Albumin Ur Specific [place] Urine Blood Urine WBC (Auto) Vancomycin Trough Crossmatch
--- NOTE | 2022-02-12 11:17 | Vascular Lab Report ---
DUPLEX DOPPLER LOWER EXTREMITY ARTERIAL, BILATERAL INDICATION / CLINICAL INFORMATION: BLE ISCEMIA. TECHNIQUE: Arterial duplex examination of both lower extremities performed using B-mode, color flow a nd spectral Doppler assessment. FINDINGS: RIGHT: Common Femoral Artery: PSV 97 cm/sec. Triphasic waveform. Proximal SFA: PSV 71 cm/sec. Triphasic waveform. Mid SFA: PSV 93 cm/sec. Triphasic waveform. Distal SFA: PSV 87 cm/sec. Triphasic waveform. Popliteal Artery: PSV 49 cm/sec. Triphasic waveform. Posterior Tibial Artery: PSV 27 cm/sec. Biphasic waveform. Dorsalis Pedis Artery: PSV 19 cm/sec. Monophasic waveform. LEFT: Common Femoral Artery: PSV 93 cm/sec. Triphasic waveform. Proximal SFA: PSV 93 cm/sec. Triphasic waveform. Mid SFA: PSV 114 cm/sec. Triphasic waveform. Distal SFA: PSV 118 cm/sec. Triphasic waveform. Popliteal Artery: PSV 107 cm/sec. Biphasic waveform. Posterior Tibial Artery: PSV 77 cm/sec. Monophasic waveform. Dorsalis Pedis Artery: PSV 50 cm/sec. Biphasic waveform. ADDITIONAL FINDINGS: None. RIGHT [place]: Not calculated. LEFT [place]: Not calculated. IMPRESSION: 1. Multifocal atherosclerotic disease is present throughout both lower extremities. There is transiti on to biphasic and monophasic waveforms bilaterally (beginning below the knee on the right and at the popliteal artery on the left) suggesting hemodynamically significant narrowing in each respective se gment. 2. No arterial occlusion or other proximal flow limiting stenosis. Ankle-Brachial Index ([place]): - Calcified arteries > 1.4 - Normal = 0.9-1.4 - Mild PAD = 0.7-0.89 - Moderate PAD = 0.51-0.69 - Severe PAD < 0.5 Doppler Waveform: - Triphasic is normal. - Biphasic is abnormal if clear transition from triphasic signal along vascular tree. - Monophasic is abnormal. Scribed by: Zully Schultz RDMS, YAHAIRAT, KENNA Scribed: 02/12/2022 9:34 AM I have reviewed the images, agree with this report, and edited this report as needed. Signer Name: Alejandro Peraza MD Signed: 02/12/2022 11:13 AM Workstation Name: [employer]
[2022-02-12] MEDS: fentaNYL 100 MCG/2 ML INJ IV PRN ×4 (11:25→20:00)
--- NOTE | 2022-02-12 15:22 | Progress Note ---
Assessment and Plan Patient is a 61-year-old female brought to the ED from a shelter due to altered mental status. Patient found to be in DKA and have cardiopulmonary S/p cardiopulmonary arrest Acute respiratory failure-pulmonology following DKA Sepsis-ID following SVT Hypotension Iaagmtvpdljz-[id number] following Echo 02/02/2022-EF 55 to 60%. Left ventricular diastolic function is normal. Right ventricular systolic function is mildly reduced. Left and right atria normal in size. No pericardial effusion Plan: Patient is s/p cardiopulmonary arrest however previous rhythm unknown/ suspected to be PEA Telemetry reviewed patient remains in sinus tach no further episodes of SVT Patient has normal EF on echo. Will consider ischemic eval once patient is stable Continue to monitor Patient seen in conjunction with Dr. Mendez who agrees with this plan of care - Patient Problems (1) SVT (supraventricular tachycardia) Current Visit: Yes Status: Acute (2) Acute respiratory failure Current Visit: Yes Status: Acute Qualifiers: Qualified Code(s): J96.01 - Acute respiratory failure with hypoxia (3) Cardiopulmonary arrest with successful resuscitation Current Visit: Yes Status: Acute (4) Hypotension Current Visit: Yes Status: Acute (5) Pancytopenia Current Visit: Yes Status: Acute (6) Sepsis Current Visit: Yes Status: Acute Subjective Date of service: 02/12/22 Principal diagnosis: DKA, s/p cardiopulmonary arrest Interval history: Patient remains intubated Sinus tach 110s no events on monitor Objective Vital Signs Temp Pulse Pulse Resp BP Pulse Ox 02/12/22 14:45 114 H 24 121/79 100 02/12/22 14:31 110 H 21 121/79 100 02/12/22 14:15 110 H 21 121/79 100 02/12/22 14:00 110 H 21 121/79 100 02/12/22 13:45 113 H 22 111/85 100 02/12/22 13:31 113 H 23 111/85 100 02/12/22 13:15 114 H 22 111/85 100 02/12/22 13:00 118 H 24 111/85 100 02/12/22 12:45 118 H 21 121/78 100 02/12/22 12:31 114 H 19 121/78 100 02/12/22 12:23 115 H 121/78 100 02/12/22 12:15 116 H 21 121/78 100 02/12/22 12:00 98.4 F 112 H 106 H 15 121/78 100 02/12/22 11:45 119 H 18 117/81 100 02/12/22 11:31 121 H 19 117/81 100 02/12/22 11:15 125 H 22 117/81 100 02/12/22 11:00 124 H 20 117/81 99 02/12/22 10:45 119 H 21 141/92 100 02/12/22 10:31 116 H 21 141/92 100 02/12/22 10:15 111 H 21 141/92 100 02/12/22 10:00 110 H 22 141/92 100 02/12/22 09:45 114 H 22 138/89 100 02/12/22 09:31 114 H 20 138/89 100 02/12/22 09:15 114 H 18 138/89 100 02/12/22 09:00 116 H 21 138/89 99 02/12/22 08:47 117 H 127/82 100 02/12/22 08:45 117 H 21 127/82 100 02/12/22 08:31 116 H 19 127/82 100 02/12/22 08:15 119 H 26 H 127/82 100 02/12/22 08:00 98.5 F 114 H 106 H 15 127/82 100 02/12/22 07:45 112 H 18 125/83 100 02/12/22 07:31 114 H 18 125/83 100 02/12/22 07:15 113 H 18 125/83 100 02/12/22 07:00 113 H 19 125/83 100 02/12/22 06:45 116 H 22 125/89 100 02/12/22 06:31 114 H 18 125/89 100 02/12/22 06:15 112 H 17 125/89 100 02/12/22 06:00 111 H 18 125/89 100 02/12/22 05:45 116 H 21 138/91 100 02/12/22 05:31 116 H 20 138/91 100 02/12/22 05:15 114 H 18 138/91 100 02/12/22 05:00 116 H 22 138/91 100 02/12/22 04:45 114 H 16 129/94 99 02/12/22 04:36 113 H 5 L 129/94 100 02/12/22 04:31 114 H 19 129/94 99 02/12/22 04:15 112 H 18 129/94 100 02/12/22 04:00 98.4 F 112 H 106 H 17 129/94 99 02/12/22 03:45 115 H 18 125/84 100 02/12/22 03:31 111 H 17 125/84 100 02/12/22 03:15 112 H 17 125/84 100 02/12/22 03:00 113 H 16 125/84 99 02/12/22 02:45 114 H 18 127/82 100 02/12/22 02:31 113 H 17 127/82 100 02/12/22 02:15 111 H 16 127/82 100 02/12/22 02:00 110 H 17 127/82 99 02/12/22 01:45 113 H 19 115/76 100 02/12/22 01:31 108 H 15 113/79 100 02/12/22 01:15 109 H 18 113/79 100 02/12/22 01:00 108 H 14 113/79 100 02/12/22 00:45 110 H 14 126/95 99 02/12/22 00:31 110 H 16 115/76 99 02/12/22 00:15 109 H 15 115/76 99 02/12/22 00:00 98.1 F 109 H 109 H 2 L 115/76 99 02/11/22 23:45 112 H 16 126/95 99 02/11/22 23:31 115 H 17 126/95 99 02/11/22 23:15 119 H 24 126/95 99 02/11/22 23:01 112 H 25 H 119/81 100 02/11/22 22:45 114 H 16 99 02/11/22 22:32 115 H 16 119/81 99 02/11/22 22:31 115 H 15 119/81 99 02/11/22 22:15 114 H 16 119/81 99 02/11/22 22:00 112 H 17 119/81 99 02/11/22 21:45 111 H 15 125/80 99 02/11/22 21:31 114 H 18 125/80 99 02/11/22 21:15 115 H 18 125/80 99 02/11/22 21:05 113 H 6 L 125/80 99 02/11/22 21:01 115 H 19 125/80 99 02/11/22 20:45 114 H 16 125/80 99 02/11/22 20:31 113 H 17 125/80 99 02/11/22 20:15 112 H 17 125/80 99 02/11/22 20:00 98.1 F 113 H 113 H 19 125/80 98 02/11/22 19:45 113 H 22 118/79 99 02/11/22 19:31 113 H 18 118/79 99 02/11/22 19:15 113 H 18 118/79 99 02/11/22 19:01 112 H 17 118/79 99 02/11/22 18:45 117 H 20 118/79 100 02/11/22 18:31 111 H 16 118/79 99 02/11/22 18:15 111 H 19 118/79 99 02/11/22 18:00 109 H 21 118/79 99 02/11/22 17:45 112 H 21 117/79 100 02/11/22 17:31 110 H 17 117/79 100 02/11/22 17:15 113 H 17 117/79 100 02/11/22 17:01 108 H 15 117/79 99 02/11/22 16:45 111 H 21 117/79 99 02/11/22 16:33 116 H 114/73 99 02/11/22 16:31 110 H 16 117/79 100 02/11/22 16:15 106 H 15 117/79 99 02/11/22 16:00 98.9 F 106 H 116 H 14 117/79 98 02/11/22 15:45 104 H 15 137/92 99 02/11/22 15:31 103 H 15 137/92 100 - Physical Examination General: Other (Intubated and sedated) HEENT: Positive: Normocephaly, Mucus Membranes Moist Neck: Positive: neck supple, trachea midline Cardiac: Positive: Regular Rhythm, Tachycardia Lungs: Positive: Ventilated Respirations Neuro: Positive: Other (Sedated, intubated and mechanically ventilated.) Abdomen: Positive: Soft, Active Bowel Sounds Skin: Negative: Rash Musculoskeletal: No Fluid Collection Extremities: Absent: edema - Labs and Meds CBC 02/12/22 Range/Units 04:17 WBC 23.9 H (4.5-11.0) K/mm3 RBC 3.78 (3.65-5.03) M/mm3 Hgb 7.5 L (10.1-14.3) gm/dl Hct 24.2 L (30.3-42.9) % Plt Count 394 (140-440) K/mm3 Comprehensive Metabolic Panel 02/12/22 Range/Units 04:17 Sodium 146 H (137-145) mmol/L Potassium 3.8 (3.6-5.0) mmol/L Chloride 100.1 (98-107) mmol/L Carbon Dioxide 39 H (22-30) mmol/L BUN 25 H (7-17) mg/dL Creatinine 0.4 L (0.6-1.2) mg/dL Glucose 135 H (65-100) mg/dL Calcium 8.4 (8.4-10.2) mg/dL - Imaging and Cardiology Echo: report reviewed - Telemetry EKG Rhythm: Sinus Tachycardia - EKG Sinus rhythms and dysrhythmias: sinus tachycardia Myocardial infarction: septal SC (old age or ind
--- NOTE | 2022-02-12 15:23 | Progress Note ---
<CARLOSRADHANelson - Last Filed: 02/12/22 15:29> Assessment and Plan Assessment and plan: This is a 61 year old female with DM, Dementia, HLD, HTN admitted with DKA s/p cardiac arrest on 02/01 Neuro: Acute metabolic encephalopathy, h/o dementia -Neurology consulted, appreciate recommendations -Serouqel bid -RASS goal 0 to -1 -Reorientation as needed -As needed analgesia Cardiac: s/p PEA cardiac arrest on 02/01, SVT, h/o HLD and HTN -Cardiology consulted, appreciate recommendations -s/p cardiac arrest on 02/01 -Blood pressure monitoring per protocol -s/p Vasopressor support with Levophed -MAP goal greater than 65 -Echocardiogram LVEF 55 to 60% Respiratory: Acute hypoxic respiratory failure, ARDS -[facility] consulted, appreciate recommendations -Intubated on 02/01 with 7.0 OETT at 21 at the [facility] -A.m. vent settings: Assist-control Rate 12, tidal volume 350, PEEP 8, FiO2 40% -See RT notes for titration -wean PEEP to 6 -PSV thus afternoon - 02/04 s/p Bronchoscopy at the bedside by [facility] -A.m. ABG and CXR noted -VAP bundle -SPO2 monitoring GI: Mod protein venu malnutrition -24 hours + 1821 mL -PPI -NTR consulted for tube feedings -BR: Senokot S : Hypernatremia, hypokalemia -FWF 300 q4 -Monitor intake and output -Renally dose medications -Avoid nephrotoxic medications -s/p bicarbonate drip -Repleat potassium -Trend BMP ID: Sepsis, UTI, lactic acidosis -Presented with tachycardia, leukocytosis, pyuria on UA developed pancytopenia, hypotension, tachycardia -Infectious disease consulted, appreciate recommendations -s/p antibiotic therapy with rocephin -UA consistent with pyuria, Blood cultures with NGTD -Sputum culture with Klebsiella Pneumoniae -covid pcr (-) -f/u blood culture -Monitor WBC and temperature curve Endo: s/p DKA, h/o DM -Presented with severe metabolic acidosis, blood glucose in 300s -s/p insulin drip -Avoid hypoglycemia -Hemoglobin A1c 11.1 -SSI -Accu-Cheks q. every 6 -Long-acting insulin, titrate as needed Heme: Pancytopenia (resolved), ? BLE ischemia -Hem/onc and vascular surgery consulted, appreciate recommendations -Bilateral lower extremity ultrasound negative for DVT -Bilateral lower extremity arterial duplex shows multifocal arthrosclerotic disease throughout bilateral lower extremities, transition into biphasic and monophasic waveforms bilaterally suggesting hemodynamically significant narrowing of each respective segment, no arterial occlusion or other proximal f low limiting stenosis -Trend CBC -s/p 1 unit PRBC -Transfuse hemoglobin less than 7 -SCDs to BLE while in bed The high probability of a clinically significant, sudden or life threatening deterioration of the [endocrine, infectious disease] system(s) required my full and direct attention, intervention and personal management. The aggregate critical care time was [60] minutes. This time is in addition to time spent performing reported procedures but includes the following: [x] Data Review and interpretation [x] Patient assessment and monitoring of vital signs [x] Documentation [x] Medication orders and management Disposition Plan: icu Total Time Spent with Patient (Minutes): 60 History Interval history: This is a 61-year-old female is a resident of a shelter with DM,, dementia (possibly [place] per daughter), hyperlipidemia, and hypertension who presents to the hospital on 01/31 from [facility] for hypoglycemia. In the ED patient was found to be tachycardic, tachypneic and lab work showed hyperkalemia, hyperchloremia, high anion gap metabolic acidosis with leukocyto sis and UA showed pyuria. Patient was admitted to the hospitalist service. Hospital course to date: 02/01: patient was transferred to ICU as lab work was consistent with DKA and started on insulin drip. Central line placed for IV access. Patient was given bicarb push and started on a bicarb drip. She was also started on Rocephin due to UTI however antibiotics are broadened to cefepime and vancomycin. 02/02: s/p cardiac arrest on 02/01. Bicarbonate drip discontinued. Pancytopenia noted, anion gap closed and transitioned to SSI and long-acting insulin. Patient was having hypoglycemia this morning which has been corrected now. Started on tube feeding. Potassium and phosphorus will be repleted. Hypernatremia noted and FWF started with tube feedings. COVID-19 PCR pending. Venous Doppler ultrasound pending. Neurology and cardiology consulted. Echocardiogram pending. Patient currently on Levophed and sedated with propofol. Fentanyl added. Given 1 LR bolus this morning for hypotension. 7/31: LR bolus x2, remains on levophed, tachycardia and EKG completed which shows tachycardia. Increase in FiO2, Will culture with next temp spike. Will give 1 gm Calcium Gluconate. 02/04: S/p Bronch this am by CCM at the bedside. Patient still spiking high temp despite broad spectrum IV Abx. Remains on high pressors with worsen neutropenia and thrombocytopenia. Will panculture this am, antifungal culture was also ordered. Continue current empiric IV Abx for now, awaiting sensitivity. Will also consult ID for further eval. Possible Hematology consult for pancytopenia per CCM. Possible family meeting with [facility] this week, case management to arrange. 02/05: Back up on full support on the vent. CXR with worsen bilateral opacities, S/p X1 dose of IV lasix. Patient also received 1units of PRBCs overnight due to anemia, H&H stable this am and no s/s of any active bleeding. Patient remains pancytopenic, still febrile. IV abx changed to Merrem and Vanc per ID, hematology consult pending. ST with episodes of SVT this am, plan for amiodarone gtt per Cardio. Off pressors this am. BP remains boderline, 25% IV Albumin and X1 dose of additional IV lasix gain today per CCM. Continue FWF for hypernatremia. Lantus adjusted due to hypoglycemia. Possible family meeting tomorrow with [facility]. 02/06: Decompensated this am, sudden drop in SPO2 in the 80s, HR in the 50s, and MAP in the 40s. Back on 2 pressors, on 100% FIO2 and 12 of peep. Stat ABG pending, 1amp Bcarb given, stress dose steroids initiated. This an CXR reviewed with worsen opacities from prior. Patient remains on IV abx per ID. Hematology recommendations appreciated. Event discussed with [facility] who agreed with current intervention. Patient's daughter and sister were notified via phone. Current events, patient's diagnosis, overal condition, and poor prognosis were thoroughly discussed. GOC was also addressed with patient's daughter and sister, they voiced that if patient was able to speak for herself she would want all lifesaving measures, including CPR and medications if her heart stop. All quest ions and concerns were addressed at this time. They verbalized understanding and agreed with current care plan. Patient remains a FULL code status at This time. 84: Responded well to IV lasix and albumin overnight. CXR with some improvement today. IV lasix and albumin gain today per [facility]. With increased WOB and tachpnea this am, low dose propofol added for RASS goal of 0 to -2. Wean FIO2 as jason ated for SPO2 goal above 92%. Worsen hyperglycemia this am, most like due to IV steroids, insulin therapy adjusted. Monitor and replace electrolytes as needed. Family meeting today with [facility], patient remains a FULL code status. 85: Tolerating gentle diurese. Patient missed overnight IV lasix/albumin dose, will repeat another dose this morning. Continue to wean Fio2 as tolerated. Remains off pressors, VSS. Concern for BLE ischemia probably due to hypoperfusion vs pressor use. Will check BLE arterial doppler to r/o occlusion. Possible Vascular Surgery consult dependent on doppler result. Lantus adjusted for persisting hyperglycemia. Electrolytes repleted, monitor and replace electrolytes as needed. 86: This am ABG and CXR with some improvement this am. Down to 55% Fio2 this am. Hypotensive overnight required short duration of Levophed gtt, pressor is off this am. Will hold on IV diuretic today. Continue to monitor for now. Electrolytes repleted, monitor and replace electrolytes as needed. Prior history of psych issues, seroquel added BID. BLE doppler pending. 02/10: Remains stable on the vent. Down to 40% Fio2 and peep of 10 this am, SPO2 above 95%, CXR is unchanged. Continue vent wean as tolerated. Remains on IV steroid, will start tapering tomorrow. Per [facility], plan is to optimize patient on the vent for possible trach and PEG. FWF increased for persistent hypernatremia. K and phos repleted. Continue to monitor and replace electrolytes as needed. 02/11: Water flush continued at 300 mL every 4, potassium repleted, remains on vasopressors. No acute events reported overnight. intiate seriod taper 02/12: Patient being weaned down IV fentanyl pushes ordered, Lantus decreased, decreased PEEP and RT placed on pressure support this afternoon. No acute events overnight. Hospitalist Physical - Constitutional Vitals: Temp Pulse Resp BP Pulse Ox 98.4 F 114 H 24 121/79 100 02/12/22 12:00 02/12/22 14:45 08/09/22 14:45 02/12/22 14:45 02/12/22 14:45 General appearance: Present: no acute distress, other (Remains on the vent) - EENT Eyes: Present: PERRL, EOM intact ENT: hearing decreased - Neck Neck: Present: normal ROM - Respiratory Respiratory effort: normal Respiratory: bilateral: CTA - Cardiovascular Rhythm: regular Heart Sounds: Present: S1 & S2. Absent: systolic murmur, diastolic murmur - Extremities Extremities: pulses intact, pulses symmetrical, No edema, normal temperature Extremity abnormal: black (discoloration to left pointer finger) Peripheral Pulses: within normal limits - Abdominal General gastrointestinal: soft, non-tender, non-distended, normal bowel sounds - Integumentary Integumentary: Present: warm, dry - Psychiatric Psychiatric: other - Neurologic Neurologic: moves all extremities - Allied Health Allied health notes reviewed: nursing, RT HEART Score - HEART Score Troponin: Troponin T < 0.010 ng/mL (0.00-0.029) 02/03/22 16:15 Results - Labs CBC & Chem 7: 02/12/22 04:17 02/12/22 04:17 Labs: Laboratory Last Values WBC 23.9 K/mm3 (4.5-11.0) H 02/12/22 04:17 RBC 3.78 M/mm3 (3.65-5.03) 02/12/22 04:17 Hgb 7.5 gm/dl (10.1-14.3) L 02/12/22 04:17 Hct 24.2 % (30.3-42.9) L 02/12/22 04:17 MCV 64 fl (79-97) L 02/12/22 04:17 MCH 20 pg (28-32) L 02/12/22 04:17 MCHC 31 % (30-34) 02/12/22 04:17 RDW 25.5 % (13.2-15.2) H 02/12/22 04:17 Plt Count 394 K/mm3 (140-440) 02/12/22 04:17 Lymph % (Auto) Data Analytics Analyst 02/02/22 04:00 Add Manual Diff Complete 02/03/22 04:00 Total Counted 50 02/03/22 04:00 Seg Neutrophils % Data Analytics Analyst 02/02/22 04:00 Seg Neuts % (Manual) 76.0 % (40.0-70.0) H 02/03/22 04:00 Band Neutrophils % 18.0 % 02/03/22 04:00 Lymphocytes % (Manual) 2.0 % (13.4-35.0) L 02/03/22 04:00 Reactive Lymphs % (Man) 0 % 02/03/22 04:00 Monocytes % (Manual) 4.0 % (0.0-7.3) 02/03/22 04:00 Eosinophils % (Manual) 0 % (0.0-4.3) 02/03/22 04:00 Basophils % (Manual) 0 % (0.0-1.8) 02/03/22 04:00 Metamyelocytes % 0 % 02/03/22 04:00 Myelocytes % 0 % 02/03/22 04:00 Promyelocytes % 0 % 02/03/22 04:00 Blast Cells % 0 % 02/03/22 04:00 Nucleated RBC % 4.0 % (0.0-0.9) H 02/03/22 04:00 Seg Neutrophils # Man 2.8 K/mm3 (1.8-7.7) 02/03/22 04:00 Band Neutrophils # 0.7 K/mm3 02/03/22 04:00 Lymphocytes # (Manual) 0.1 K/mm3 (1.2-5.4) L 02/03/22 04:00 Abs React Lymphs (Man) 0.0 K/mm3 02/03/22 04:00 Monocytes # (Manual) 0.1 K/mm3 (0.0-0.8) 02/03/22 04:00 Eosinophils # (Manual) 0.0 K/mm3 (0.0-0.4) 02/03/22 04:00 Basophils # (Manual) 0.0 K/mm3 (0.0-0.1) 02/03/22 04:00 Metamyelocytes # 0.0 K/mm3 02/03/22 04:00 Myelocytes # 0.0 K/mm3 02/03/22 04:00 Promyelocytes # 0.0 K/mm3 02/03/22 04:00 Blast Cells # 0.0 K/mm3 02/03/22 04:00 WBC Morphology Not Reportable 02/03/22 04:00 Hypersegmented Neuts Not Reportable 02/03/22 04:00 Hyposegmented Neuts Not Reportable 02/03/22 04:00 Hypogranular Neuts Not Reportable 02/03/22 04:00 Smudge Cells Not Reportable 02/03/22 04:00 Toxic Granulation Not Reportable 02/03/22 04:00 Toxic Vacuolation Not Reportable 02/03/22 04:00 Dohle Bodies Few 02/03/22 04:00 Pelger-Huet Anomaly Not Reportable 02/03/22 04:00 Sung Rods Not Reportable 02/03/22 04:00 Platelet Estimate Consistent w auto 02/03/22 04:00 Clumped Platelets Not Reportable 02/03/22 04:00 Plt Clumps, EDTA Not Reportable 02/03/22 04:00 Large Platelets Not Reportable 02/03/22 04:00 Giant Platelets Not Reportable 02/03/22 04:00 Platelet Satelliting Not Reportable 02/03/22 04:00 Plt Morphology Comment Not Reportable 02/03/22 04:00 RBC Morphology Not Reportable 02/03/22 04:00 Dimorphic RBCs Not Reportable 02/03/22 04:00 Polychromasia Not Reportable 02/03/22 04:00 Hypochromasia 3+ 02/03/22 04:00 Poikilocytosis 2+ 02/03/22 04:00 Anisocytosis 1+ 02/03/22 04:00 Microcytosis 2+ 02/03/22 04:00 Macrocytosis Not Reportable 02/03/22 04:00 Spherocytes Not Reportable 02/03/22 04:00 Pappenheimer Bodies Not Reportable 02/03/22 04:00 Sickle Cells Not Reportable 02/03/22 04:00 Target Cells 1+ 02/03/22 04:00 Tear Drop Cells Few 02/03/22 04:00 Ovalocytes Few 02/03/22 04:00 Helmet Cells Not Reportable 02/03/22 04:00 Starr-[place] Bodies Not Reportable 02/03/22 04:00 [place] Rings Not Reportable 02/03/22 04:00 [place] Cells 1+ 02/03/22 04:00 Bite Cells Not Reportable 02/03/22 04:00 Crenated Cell Not Reportable 02/03/22 04:00 Elliptocytes Few 02/03/22 04:00 Acanthocytes (Spur) Not Reportable 02/03/22 04:00 Rouleaux Not Reportable 02/03/22 04:00 Hemoglobin C Crystals Not Reportable 02/03/22 04:00 Schistocytes Rare 02/03/22 04:00 Malaria parasites Not Reportable 02/03/22 04:00 Percent Retic 0.65 % (0.78-2.58) L 02/08/22 03:55 Sven Bodies Not Reportable 02/03/22 04:00 Hem Pathologist Commnt No 02/03/22 04:00 PT 14.8 Sec. (12.2-14.9) 02/05/22 08:48 INR 1.02 (0.87-1.13) 02/05/22 08:48 APTT 34.4 Sec. (24.2-36.6) 02/05/22 08:48 Fibrinogen 795 mg/dl (211-480) H 02/05/22 08:48 ABG pH 7.467 pH Units (7.350-7.450) H 02/12/22 05:00 POC ABG pCO2 37.3 mmHg (32.0-48.0) 02/02/22 04:49 ABG pCO2 57.6 mm Hg 02/12/22 05:00 POC ABG pO2 79.9 mmHg (83-108) L 02/02/22 04:49 ABG pO2 97.9 mm Hg (80.0-90.0) H 02/12/22 05:00 POC ABG HCO3 30.3 02/02/22 04:49 ABG HCO3 40.7 mmol/L (20.0-26.0) H 02/12/22 05:00 ABG O2 Saturation 97.4 % (95.0-99.0) 02/12/22 05:00 ABG O2 Content 10.2 (0.0-44) 02/12/22 05:00 POC ABG Base Excess 7.1 02/02/22 04:49 ABG Base Excess 15.3 mmol/L (-2.0-3.0) H 02/12/22 05:00 ABG Hemoglobin 7.5 gm/dl (12.0-16.0) L 02/12/22 05:00 ABG Oxyhemoglobin 96.0 (94-98) 02/02/22 04:49 ABG Carboxyhemoglobin 1.7 % (0.0-5.0) 02/12/22 05:00 ABG Methemoglobin 0.6 % (0.0-1.5) 02/12/22 05:00 ABG Sodium Not Reportable 02/02/22 04:49 ABG Potassium Not Reportable 02/02/22 04:49 ABG Chloride Not Reportable 02/02/22 04:49 ABG Glucose Not Reportable 02/02/22 04:49 Oxyhemoglobin 95.2 % (95.0-99.0) 02/12/22 05:00 Carboxyhemoglobin 0.2 (0.5-1.5) L 02/02/22 04:49 FiO2 40 % 02/12/22 05:00 FiO2 % 60.0 02/02/22 04:49 Sodium 146 mmol/L (137-145) H 02/12/22 04:17 Potassium 3.8 mmol/L (3.6-5.0) 02/12/22 04:17 Chloride 100.1 mmol/L (98-107) 02/12/22 04:17 Carbon Dioxide 39 mmol/L (22-30) H 02/12/22 04:17 Anion Gap 11 mmol/L 02/12/22 04:17 BUN 25 mg/dL (7-17) H 02/12/22 04:17 Creatinine 0.4 mg/dL (0.6-1.2) L 02/12/22 04:17 Estimated GFR > 60 ml/min 02/12/22 04:17 BUN/Creatinine Ratio 63 % 02/12/22 04:17 Glucose 135 mg/dL (65-100) H 02/12/22 04:17 POC Glucose 124 mg/dL (70-105) H 02/12/22 12:31 Hemoglobin A1c 11.1 % (4-6) H 02/01/22 12:54 Lactic Acid 2.50 mmol/L (0.7-2.0) H* 02/06/22 11:50 Calcium 8.4 mg/dL (8.4-10.2) 02/12/22 04:17 Phosphorus 3.40 mg/dL (2.5-4.5) D 02/11/22 04:00 Magnesium 2.30 mg/dL (1.7-2.3) 02/11/22 04:00 Total Bilirubin 0.30 mg/dL (0.1-1.2) 02/10/22 03:40 Direct Bilirubin < 0.2 mg/dL (0-0.2) 02/08/22 03:55 Indirect Bilirubin 0.0 mg/dL 02/08/22 03:55 AST 120 units/L (5-40) H 02/10/22 03:40 ALT 80 units/L (7-56) H 02/10/22 03:40 Alkaline Phosphatase 207 units/L (35-129) H 02/10/22 03:40 Lactate Dehydrogenase 879 units/L (91-180) H 02/05/22 04:40 Troponin T < 0.010 ng/mL (0.00-0.029) 02/03/22 16:15 Total Protein 5.3 g/dL (6.3-8.2) L 02/10/22 03:40 Albumin 2.4 g/dL (3.9-5) L 02/10/22 03:40 Albumin/Globulin Ratio 0.8 % 02/10/22 03:40 Arterial Blood Glucose Not Reportable 02/02/22 04:49 Urine Color Yellow (Yellow) 02/04/22 09:15 Urine Turbidity Cloudy (Clear) 02/04/22 09:15 Urine pH 6.0 (5.0-7.0) 02/04/22 09:15 Ur Specific [place] 1.025 (1.003-1.030) 02/04/22 09:15 Urine Protein >500 mg/dL (Negative) 02/04/22 09:15 Urine Glucose (UA) Negative mg/dL (Negative) 02/04/22 09:15 Urine Ketones Negative mg/dL (Negative) 02/04/22 09:15 Urine Blood Large (Negative) A 02/04/22 09:15 Urine Nitrite Negative (Negative) 02/04/22 09:15 Ur Reducing Substances Not Reportable 01/31/22 22:49 Urine Bilirubin Negative (Negative) 02/04/22 09:15 Urine Ictotest Not Reportable 01/31/22 22:49 Urine Urobilinogen < 2.0 mg/dL (<2.0) 02/04/22 09:15 Ur Leukocyte Esterase Negative (Negative) 02/04/22 09:15 Urine WBC (Auto) 12.0 /HPF (0.0-6.0) H 02/04/22 09:15 Urine RBC (Auto) 107.0 /HPF (0.0-6.0) 02/04/22 09:15 U Epithel Cells (Auto) 1.0 /HPF (0-13.0) 02/04/22 09:15 Urine Bacteria (Auto) 1+ /HPF (Negative) 02/04/22 09:15 Urine Mucus Few /HPF 02/04/22 09:15 Urine Yeast (Budding) 2+ /HPF 02/04/22 09:15 Vancomycin Trough 28.6 ug/mL (5.0-20.0) H 02/05/22 Unknown Coronavirus (PCR) Negative (Negative) 02/02/22 10:44 SARS-CoV-2 (PCR) Negative (Negative) 02/01/22 08:50 HIV 1&2 Antibody Rapid Non react (Non React) 02/04/22 14:37 HIV P24 Antigen Non react (Non React) 02/04/22 14:37 Blood Type A POSITIVE 02/04/22 20:22 Antibody Screen Negative 02/04/22 20:22 Crossmatch See Detail 02/04/22 20:22 Microbiology: Microbiology 02/04/22 14:37 Peripheral/Venous Blood Fungal Culture - Preliminary No Fungus Isolated At 1 week 02/04/22 14:37 Peripheral/Venous Blood Culture - Final NO GROWTH AFTER 5 DAYS 02/04/22 14:37 Peripheral/Venous Blood Fungal Culture - Preliminary No Fungus Isolated At 1 week Gastelum/IV: Voiding Method External Female Catheter Active Medications - Current Medications Current Medications: Generic Name Dose Route Start Last Admin Trade Name Freq PRN Reason Stop Dose Admin Acetaminophen 650 mg 02/01/22 00:57 02/04/22 11:58 Acetaminophen 325 Mg Tab PO 650 mg Q4H PRN Administration Pain MILD(1-3)/Fever >100.5/ROSADO Albuterol 2.5 mg 02/01/22 00:57 Albuterol 2.5 Mg/3 Ml Nebu IH Q3HRT PRN Shortness Of Breath Lipase/Protease/Amylase 1 each 02/02/22 08:08 Lipase 10,500/Protease 25,000/Amylase 43,750 (Units) Dr Cap FEEDTUBE PRN PRN For Clogged Feeding Tube Atorvastatin Calcium 20 mg 02/03/22 22:00 02/11/22 21:23 Atorvastatin 20 Mg Tab FEEDTUBE 20 mg QHS JAMIL Administration Dextrose 50 ml 02/02/22 08:00 02/05/22 11:52 Dextrose 50% In Water (25gm) 50 Ml Syringe IV 25 ml Q30MIN PRN Administration Hypoglycemia Protocol Famotidine 20 mg 02/04/22 10:00 02/12/22 09:17 Famotidine 20 Mg Tab FEEDTUBE 20 mg BID JAMIL Administration Fentanyl 50 mcg 02/02/22 09:45 02/12/22 11:25 Fentanyl 100 Mcg/2 Ml Inj IV 50 mcg Q10MIN PRN Administration ANALGESIA Fentanyl 50 mcg 02/12/22 10:11 Fentanyl 100 Mcg/2 Ml Inj IV Q2H PRN VENT SYNCHRONY/AGITATION Hydrocortisone Sodium Succinate 50 mg 02/11/22 20:00 02/12/22 12:32 Hydrocortisone Sod Succ 100 Mg/2 Ml Vial IV 50 mg Q8H JAMIL Administration Hydrophilic Ointment 1 applic 02/01/22 18:52 Lip Therapy Vaseline TP Q2HR PRN Dry Lips NORepinephrine/NS 8 MG-250 ML 8 mg in 250 mls @ 3.75 mls/hr 02/01/22 20:00 02/07/22 19:18 Norepinephrine/Ns 8 Mg-250 Ml (Double Conc) IV 0 mcg/min TITRATE JAMIL 0 mls/hr Titration Protocol 2 MCG/MIN Propofol 1,000 mg in 100 mls @ 1.429 mls/hr 02/01/22 19:17 02/08/22 16:30 Diprivan 10 Mg/Ml IV 0 mcg/kg/min TITR JAMIL 0 mls/hr Titration Protocol 5 MCG/KG/MIN Fentanyl Citrate 2,000 mcg in 100 mls @ 2.381 mls/hr 02/02/22 10:00 02/12/22 09:10 Fentanyl Drip Premix IV 0 mcg/kg/hr TITR JAMIL 0 mls/hr Titration Protocol 1 MCG/KG/HR Phenylephrine HCl 100 mg/ 100 mls @ 3 mls/hr 02/03/22 14:15 02/07/22 19:18 Sodium Chloride IV 0 mcg/min TITR JAMIL 0 mls/hr Titration Protocol 50 MCG/MIN Sodium Chloride 500 mls @ 5 mls/hr 02/04/22 03:00 02/08/22 05:21 Nacl 0.9% 500 Ml IV 5 mls/hr DIRECT JAMIL Administration Vasopressin 20 unit/ Sodium 101 mls @ 9.09 mls/hr 02/04/22 09:15 02/07/22 19:18 Chloride IV 0 units/min TITR JAMIL 0 mls/hr Titration Protocol 0.03 UNITS/MIN Insulin Glargine 20 units 02/12/22 22:00 Insulin Glargine 100 Units/Ml SUB-Q QHS JAMIL Insulin Human Regular 0 units 02/02/22 18:00 02/12/22 12:32 Insulin Regular, Human 100 Units/1 Ml SUB-Q Not Given Q6H [facility] Protocol Multi-Ingred Cream/Lotion/Oil/Oint 1 applic 02/01/22 18:52 Mineral Oil/Petrolatum, White Ophth Oint 3.5 Gm OU Q4HR PRN Dry Eye(s) Nitroglycerin 0.5 inch 02/11/22 14:00 02/12/22 14:00 Nitroglycerin 2% Oint 1 Gm TP 0.5 inch BIDNTG JAMIL Administration Protocol Ondansetron HCl 4 mg 02/01/22 00:57 Ondansetron 4 Mg/2 Ml Inj IV Q8H PRN Nausea And Vomiting Quetiapine Fumarate 50 mg 02/09/22 10:00 02/12/22 10:23 Quetiapine 25 Mg Tab PO 50 mg BID JAMIL Administration Senna/Docusate Sodium 2 tab 02/07/22 10:00 02/12/22 10:24 Sennosides/Docusate Sodium 8.6/50 Mg Tab PO Not Given Q12H JAMIL Simple Syrup 15 ml 02/02/22 08:08 Simple Syrup 15 Ml FEEDTUBE PRN PRN Hypoglycemia Simple Syrup 30 ml 02/02/22 08:08 Simple Syrup 15 Ml FEEDTUBE PRN PRN Hypoglycemia Sodium Bicarbonate 325 mg 02/02/22 08:08 Sodium Bicarbonate 325 Mg Tab FEEDTUBE PRN PRN For Clogged Feeding Tube Sodium Chloride 10 ml 02/01/22 10:00 02/12/22 09:18 Sodium Chloride 0.9% 10 Ml Flush Syringe IV 10 ml BID JAMIL Administration Sodium Chloride 10 ml 07/29/22 00:57 02/09/22 05:59 Sodium Chloride 0.9% 10 Ml Flush Syringe IV 10 ml PRN PRN Administration LINE FLUSH Nutrition/Malnutrition Assess - Dietary Evaluation Nutrition/Malnutrition Findings: Nutrition Notes Start: 02/01/22 17:50 Freq: Status: Active Protocol: Document 02/06/22 09:48 JACQUELINE (Rec: 02/06/22 10:15 JACQUELINE [id number]) Nutrition Notes Initial or Follow up Brief Note Current Diagnosis Diabetes,Sepsis,Respiratory Failure Other Pertinent Diagnosis s/p DKA, s/p PEA Arrest, Pneumonia, Pyuria, Pancytopenia, UTI, ... Current Diet TF-Glucerna 1.2 Venu @ 55 ml/hr (since L 02/04). Labs/Tests 02/06: Na 146, K 3.4, CO2 31, BUN 21, Glu 230. Pertinent Medications 02/06: Humulin R 4U, KCl 10mEq , others nutritionally unremarkable. Height 5 ft 4 in Weight 46.5 kg [place] Body Weight (kg) 54.54 BMI 17.6 Weight change and time frame 0.2 Kg body weight loss reported in 2 days. Weight Status Underweight Subjective/Other Information RD consult for TF tolerance/ continuation. TF continues as prescribed, and well tolerated, according to RN notes. RN note on 02/05/22 03:49: 08/2021 0040 I hung new container TF glucerna @ 55 ml/ hr with FWF container rate @ FWF 100 ml q4hr, see welder apprentice combination notes, to OGT. - END OF NOTE. Pt remains on Mechanical Ventilation, O2 saturation @ 96%, according to Physical Assessment History notes. Pt remains incontinent, according to Physical Assessment History notes. Percent of energy/protein needs met: Prescribed TF-Glucerna 1.2 Venu @ 55 ml/hr provides for energy/protein needs (1584 Kcal/79 g) during LOS, 97% Kcal; 100% AA. #1 Nutrition Diagnosis Inadequate oral intake Diagnosis Progress(for reassessment Continues documentation) Is patient on ventilator? Yes Is Patient Ambulatory and/or Out of Bed No REE-([place]-confined to bed) 1235.112 Kcal/Kg value to use for calculation 35 Approximate Energy Requirements Using 1628 kcal/Kg Calculation Used for Recommendations Kcal/kg Additional Notes Protein: 1.2-2 g/Kg ABW; 56-93 g/day. Fluids: 1 ml/Kcal, or as per MD. Nutrition Intervention Nutrition Support: Continue TF-Glucerna 1.2 Venu @ 55 ml/hr. Flush: 250 ml water Q 4 hr while hypernatremia persists, resume to 100 ml when Na is WNL. Kcal 1,584 Protein (gm) 79 Carbohydrates (gm) 151 Fat (gm) 79 Fluid (mL) 1,063 Fiber (gm) 21 % RDI: 97% Kcal; 100% AA. Goal #1 Provide at least 75% of energy /protein needs through Enteral Feeding during LOS. Follow-Up By: 02/13/22 Additional Comments Continue monitoring TF tolerance, Mechanical Ventilation, Hypernatremia, and BM. <ABDELRAHMAN MCMAHAN - Last Filed: 02/25/22 11:43> History Interval history: I saw and evaluated the patient. I agree with the findings and the plan of care as documented in the Nurse Practitioner's~note, with the following corrections and additions. Hospitalist Physical - Constitutional Vitals: Temp Pulse Resp BP Pulse Ox 100.5 F H 115 H 27 H 101/70 100 02/22/22 16:00 02/22/22 18:00 02/22/22 18:00 02/22/22 18:00 02/22/22 18:00 HEART Score - HEART Score Troponin: Troponin T < 0.010 ng/mL (0.00-0.029) 02/03/22 16:15 Results - Labs CBC & Chem 7: 02/22/22 04:00 02/22/22 04:00 Labs: Laboratory Last Values WBC 15.0 K/mm3 (4.5-11.0) H 02/22/22 04:00 RBC 3.62 M/mm3 (3.65-5.03) L 02/22/22 04:00 Hgb 7.7 gm/dl (10.1-14.3) L 02/22/22 04:00 Hct 24.8 % (30.3-42.9) L 02/22/22 04:00 MCV 68 fl (79-97) L 02/22/22 04:00 MCH 21 pg (28-32) L 02/22/22 04:00 MCHC 31 % (30-34) 02/22/22 04:00 RDW 29.9 % (13.2-15.2) H 02/22/22 04:00 Plt Count 442 K/mm3 (140-440) H 02/22/22 04:00 Lymph % (Auto) Data Analytics Analyst 02/02/22 04:00 Add Manual Diff Complete 02/03/22 04:00 Total Counted 50 02/03/22 04:00 Seg Neutrophils % Data Analytics Analyst 02/02/22 04:00 Seg Neuts % (Manual) 76.0 % (40.0-70.0) H 02/03/22 04:00 Band Neutrophils % 18.0 % 02/03/22 04:00 Lymphocytes % (Manual) 2.0 % (13.4-35.0) L 02/03/22 04:00 Reactive Lymphs % (Man) 0 % 02/03/22 04:00 Monocytes % (Manual) 4.0 % (0.0-7.3) 02/03/22 04:00 Eosinophils % (Manual) 0 % (0.0-4.3) 02/03/22 04:00 Basophils % (Manual) 0 % (0.0-1.8) 02/03/22 04:00 Metamyelocytes % 0 % 02/03/22 04:00 Myelocytes % 0 % 02/03/22 04:00 Promyelocytes % 0 % 02/03/22 04:00 Blast Cells % 0 % 02/03/22 04:00 Nucleated RBC % 4.0 % (0.0-0.9) H 02/03/22 04:00 Seg Neutrophils # Man 2.8 K/mm3 (1.8-7.7) 02/03/22 04:00 Band Neutrophils # 0.7 K/mm3 02/03/22 04:00 Lymphocytes # (Manual) 0.1 K/mm3 (1.2-5.4) L 02/03/22 04:00 Abs React Lymphs (Man) 0.0 K/mm3 02/03/22 04:00 Monocytes # (Manual) 0.1 K/mm3 (0.0-0.8) 02/03/22 04:00 Eosinophils # (Manual) 0.0 K/mm3 (0.0-0.4) 02/03/22 04:00 Basophils # (Manual) 0.0 K/mm3 (0.0-0.1) 02/03/22 04:00 Metamyelocytes # 0.0 K/mm3 02/03/22 04:00 Myelocytes # 0.0 K/mm3 02/03/22 04:00 Promyelocytes # 0.0 K/mm3 02/03/22 04:00 Blast Cells # 0.0 K/mm3 02/03/22 04:00 WBC Morphology Not Reportable 02/03/22 04:00 Hypersegmented Neuts Not Reportable 02/03/22 04:00 Hyposegmented Neuts Not Reportable 02/03/22 04:00 Hypogranular Neuts Not Reportable 02/03/22 04:00 Smudge Cells Not Reportable 02/03/22 04:00 Toxic Granulation Not Reportable 02/03/22 04:00 Toxic Vacuolation Not Reportable 02/03/22 04:00 Dohle Bodies Few 02/03/22 04:00 Pelger-Huet Anomaly Not Reportable 02/03/22 04:00 Sung Rods Not Reportable 02/03/22 04:00 Platelet Estimate Consistent w auto 02/03/22 04:00 Clumped Platelets Not Reportable 02/03/22 04:00 Plt Clumps, EDTA Not Reportable 02/03/22 04:00 Large Platelets Not Reportable 02/03/22 04:00 Giant Platelets Not Reportable 02/03/22 04:00 Platelet Satelliting Not Reportable 02/03/22 04:00 Plt Morphology Comment Not Reportable 02/03/22 04:00 RBC Morphology Not Reportable 02/03/22 04:00 Dimorphic RBCs Not Reportable 02/03/22 04:00 Polychromasia Not Reportable 02/03/22 04:00 Hypochromasia 3+ 02/03/22 04:00 Poikilocytosis 2+ 02/03/22 04:00 Anisocytosis 1+ 02/03/22 04:00 Microcytosis 2+ 02/03/22 04:00 Macrocytosis Not Reportable 02/03/22 04:00 Spherocytes Not Reportable 02/03/22 04:00 Pappenheimer Bodies Not Reportable 02/03/22 04:00 Sickle Cells Not Reportable 02/03/22 04:00 Target Cells 1+ 02/03/22 04:00 Tear Drop Cells Few 02/03/22 04:00 Ovalocytes Few 02/03/22 04:00 Helmet Cells Not Reportable 02/03/22 04:00 [place] Bodies Not Reportable 02/03/22 04:00 [place] Rings Not Reportable 02/03/22 04:00 Lesly Cells 1+ 02/03/22 04:00 Bite Cells Not Reportable 02/03/22 04:00 Crenated Cell Not Reportable 02/03/22 04:00 Elliptocytes Few 02/03/22 04:00 Acanthocytes (Spur) Not Reportable 02/03/22 04:00 Rouleaux Not Reportable 02/03/22 04:00 Hemoglobin C Crystals Not Reportable 02/03/22 04:00 Schistocytes Rare 02/03/22 04:00 Malaria parasites Not Reportable 02/03/22 04:00 Percent Retic 0.65 % (0.78-2.58) L 02/08/22 03:55 Sven Bodies Not Reportable 02/03/22 04:00 Hem Pathologist Commnt No 02/03/22 04:00 PT 13.7 Sec. (12.2-14.9) 02/18/22 04:00 INR 0.95 (0.87-1.13) 02/18/22 04:00 APTT 29.5 Sec. (24.2-36.6) 02/16/22 04:36 Fibrinogen 795 mg/dl (211-480) H 02/05/22 08:48 ABG pH 7.463 pH Units (7.350-7.450) H 02/17/22 05:06 POC ABG pCO2 37.3 mmHg (32.0-48.0) 02/02/22 04:49 ABG pCO2 46.8 mm Hg 02/17/22 05:06 POC ABG pO2 79.9 mmHg (83-108) L 02/02/22 04:49 ABG pO2 113.6 mm Hg (80.0-90.0) H 02/17/22 05:06 POC ABG HCO3 30.3 02/02/22 04:49 ABG HCO3 32.8 mmol/L (20.0-26.0) H 02/17/22 05:06 ABG O2 Saturation 98.2 % (95.0-99.0) 02/17/22 05:06 ABG O2 Content 11.0 (0.0-44) 02/17/22 05:06 POC ABG Base Excess 7.1 02/02/22 04:49 ABG Base Excess 8.1 mmol/L (-2.0-3.0) H 02/17/22 05:06 ABG Hemoglobin 8.0 gm/dl (12.0-16.0) L 02/17/22 05:06 ABG Oxyhemoglobin 96.0 (94-98) 02/02/22 04:49 ABG Carboxyhemoglobin 1.7 % (0.0-5.0) 02/17/22 05:06 ABG Methemoglobin 0.5 % (0.0-1.5) 02/17/22 05:06 ABG Sodium Not Reportable 02/02/22 04:49 ABG Potassium Not Reportable 02/02/22 04:49 ABG Chloride Not Reportable 02/02/22 04:49 ABG Glucose Not Reportable 02/02/22 04:49 Oxyhemoglobin 96.0 % (95.0-99.0) 02/17/22 05:06 Carboxyhemoglobin 0.2 (0.5-1.5) L 02/02/22 04:49 FiO2 30 % 02/17/22 05:06 FiO2 % 60.0 02/02/22 04:49 Sodium 143 mmol/L (137-145) 02/22/22 04:00 Potassium 3.7 mmol/L (3.6-5.0) 02/22/22 04:00 Chloride 108.7 mmol/L (98-107) H 02/22/22 04:00 Carbon Dioxide 26 mmol/L (22-30) 02/22/22 04:00 Anion Gap 12 mmol/L 02/22/22 04:00 BUN 10 mg/dL (7-17) 02/22/22 04:00 Creatinine 0.4 mg/dL (0.6-1.2) L 02/22/22 04:00 Estimated GFR > 60 ml/min 02/22/22 04:00 BUN/Creatinine Ratio 25 % 02/22/22 04:00 Glucose 49 mg/dL (65-100) L 02/22/22 04:00 POC Glucose 173 mg/dL (70-105) H 02/22/22 18:19 Hemoglobin A1c 11.1 % (4-6) H 02/01/22 12:54 Lactic Acid 2.50 mmol/L (0.7-2.0) H* 02/06/22 11:50 Calcium 8.7 mg/dL (8.4-10.2) 02/22/22 04:00 Phosphorus 2.90 mg/dL (2.5-4.5) 02/22/22 11:35 Magnesium 1.70 mg/dL (1.7-2.3) 02/22/22 11:35 Total Bilirubin 0.50 mg/dL (0.1-1.2) 02/17/22 05:00 Direct Bilirubin < 0.2 mg/dL (0-0.2) 02/13/22 04:00 Indirect Bilirubin 0.1 mg/dL 02/13/22 04:00 AST 38 units/L (5-40) 02/17/22 05:00 ALT 28 units/L (7-56) 02/17/22 05:00 Alkaline Phosphatase 102 units/L (35-129) 02/17/22 05:00 Lactate Dehydrogenase 879 units/L (91-180) H 02/05/22 04:40 Troponin T < 0.010 ng/mL (0.00-0.029) 02/03/22 16:15 Total Protein 5.4 g/dL (6.3-8.2) L 02/17/22 05:00 Albumin 2.5 g/dL (3.9-5) L 02/17/22 05:00 Albumin/Globulin Ratio 0.9 % 02/17/22 05:00 Arterial Blood Glucose Not Reportable 02/02/22 04:49 Urine Color Straw (Yellow) 02/19/22 18:15 Urine Turbidity Clear (Clear) 02/19/22 18:15 Urine pH 8.0 (5.0-7.0) H 02/19/22 18:15 Ur Specific [place] 1.000 (1.003-1.030) L 02/19/22 18:15 Urine Protein 30 mg/dl mg/dL (Negative) 02/19/22 18:15 Urine Glucose (UA) Negative mg/dL (Negative) 02/19/22 18:15 Urine Ketones 5 mg/dL (Negative) 02/19/22 18:15 Urine Blood 1+ (Negative) 02/19/22 18:15 Urine Nitrite Negative (Negative) 02/19/22 18:15 Ur Reducing Substances Not Reportable 02/19/22 18:15 Urine Bilirubin Negative (Negative) 02/19/22 18:15 Urine Ictotest Not Reportable 02/19/22 18:15 Urine Urobilinogen Small mg/dL (<2.0) 02/19/22 18:15 Ur Leukocyte Esterase Negative (Negative) 02/19/22 18:15 Urine WBC (Auto) 2.0 /HPF (0.0-6.0) 02/19/22 18:15 Urine RBC (Auto) 3.0 /HPF (0.0-6.0) 02/19/22 18:15 U Epithel Cells (Auto) 1.0 /HPF (0-13.0) 02/04/22 09:15 Urine Bacteria (Auto) 1+ /HPF (Negative) 02/19/22 18:15 Urine Mucus Few /HPF 02/04/22 09:15 Urine Yeast (Budding) 2+ /HPF 02/04/22 09:15 Vancomycin Trough 28.6 ug/mL (5.0-20.0) H 02/05/22 Unknown Coronavirus (PCR) Negative (Negative) 02/02/22 10:44 SARS-CoV-2 (PCR) Negative (Negative) 02/15/22 09:39 HIV 1&2 Antibody Rapid Non react (Non React) 02/04/22 14:37 HIV P24 Antigen Non react (Non React) 02/04/22 14:37 Blood Type A POSITIVE 02/13/22 09:41 Antibody Screen Negative 02/13/22 09:41 Crossmatch See Detail 02/13/22 09:41 Microbiology: Microbiology 02/19/22 14:51 Peripheral/Venous Blood Culture - Final NO GROWTH AFTER 5 DAYS 02/19/22 14:51 Peripheral/Venous Blood Culture - Final NO GROWTH AFTER 5 DAYS 02/19/22 18:43 Tracheal Aspirate Sputum Culture - Final Gastelum/IV: Voiding Method External Female Catheter Nutrition/Malnutrition Assess - Dietary Evaluation Nutrition/Malnutrition Findings: Nutrition Notes Start: 02/01/22 17:50 Freq: Status: Discharge Protocol: Document 02/19/22 14:47 JACQUELINE (Rec: 02/19/22 15:20 JACQUELINE [id number]) Nutrition Notes Need for Assessment generated from: Low BMI Initial or Follow up Reassessment Current Diagnosis Diabetes,Sepsis,Respiratory Failure Other Pertinent Diagnosis s/p DKA, s/p PEA Arrest, Pneumonia, Pyuria, Pancytopenia, UTI, ... Current Diet TF-Glucerna 1.2 Venu @ 55 ml/hr (since D 02/18). Labs/Tests 02/19: Crea 0.3, Glu 143. Pertinent Medications 02/19: D10w @ 42 ml/hr, others nutritionally unremarkable. Height 5 ft 4 in Weight 47 kg [place] Body Weight (kg) 54.54 BMI 17.7 Weight change and time frame 1.8 Kg body weight loss in 1 week reported. Weight Status Underweight Subjective/Other Information RD consult for routine F/U on TF tolerance/continuation, and Low BMI assessment. TF continues as prescribed, but currently on hold, due to vomiting episode after PEG placement, according to RN notes. Pt remains on Mechanical Ventilation, O2 saturation @ 100%, according to Physical Assessment History notes. PEG-tube placement on 02/18, well tolerated, according to Operative Report notes. Pt's Low BMI seems to correspond to a natural body composition, and not related to a sudden loss of body weight nor chronic malnutrition, since no signs of concern were mentioned in the Physical Assessment History or the Progress notes. Percent of energy/protein needs met: Prescribed TF-Glucerna 1.2 Venu @ 55 ml/hr provides for energy/protein needs (1584 Kcal/79 g) during LOS, 97% Kcal; 100% AA. Burn Absent Trauma Absent GI Symptoms Vomiting Difficulty In Swallowing Food Allergy No Skin Integrity/Comment Unspecified area of concern. 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 Yes Is Patient Ambulatory and/or Out of Bed No REE-([place]-St. Jeor-confined to bed) 1241.100 Kcal/Kg value to use for calculation 34 Approximate Energy Requirements Using 1598 kcal/Kg Calculation Used for Recommendations Kcal/kg Additional Notes Protein: 1.2-2 g/Kg ABW; 56-93 g/day. Fluids: 1 ml/Kcal, or as per MD. Nutrition Intervention Nutrition Support: Continue TF-Glucerna 1.2 Venu @ 55 ml/hr. Flush: 100 ml water Q 4 hr, or as per MD. Kcal 1,584 Protein (gm) 79 Carbohydrates (gm) 151 Fat (gm) 79 Fluid (mL) 1,063 Fiber (gm) 21 % RDI: 97% Kcal; 100% AA. Goal #1 Provide at least 75% of energy /protein needs through Enteral Feeding during LOS. Follow-Up By: 03/05/22 Additional Comments Continue monitoring TF tolerance, Mechanical Ventilation, and BM.
[2022-02-12] MEDS: INSULIN GLARGINE 100 UNITS/ML SUB-Q SCH (22:15)
[2022-02-13] MEDS: INSULIN REGULAR, HUMAN 100 UNITS/1 ML SUB-Q SCH ×5 (00:05→18:35)
--- NOTE | 2022-02-13 01:25 | Progress Note ---
Assessment and Plan 02/13/22: Drop steroids to 50q12 today. Currently on PSV 14/6. Sedatioin off. Tentatively plan for possible extubation tomorrow morning. 02/12/22: Will wean steroids more tomorrow. Drop PEEP to 6 today and attempt PSV this afternoon. If tolerates will leave on PSV until end of day shift and then rest on rate overnight. Hopeful to leave off sedation and control with PRN pushes. Repeat PSV tomorrow consider ABG, pending on how she looks clinically. Hopeful for conventional ventilation but family is on board if trach and peg are required. 02/11/22: Will drop steroids to 50q8. Will drop PEEP to 8. Once PEEP at 6 , then consult surgery fro trach and peg unless off sedation mental state is better and she can tolerate PSV to assess if able for conventional extubation. Prognosis still remains guarded but improved now that pulmonary status has improved. 02/08/22: Please do not attempt to wean PEEP unless it is compromising clinical state (breath stacking, auto peep, hypotension, etc). Patient is in full blown ARDS needs increased levels of PEEP to help with oxygenation. Now that BP is better, if no improvement would even consider increasing PEEP if needed. Discussed with RT today. Spoke with nursing and [employer] about feet, will obtain arterial dopplers. Hopeful there is no occlusion as given her pancytopenia, not sure that she would be a candidate for anticoagulation. Reviewed [facility] [facility] Records as she was in [place] at least 3x prior to transfer here, twice during the month of January for DKA. She does have a diagnsosis of schizoaffective disorder. Could not find any meds for this. Will try some BID seroquel and see if this helps with mental state. Increases in sedation have not improved respiratory pattern. Patient did not get albumin and lasix last night but did get this am. Repeat CXR in the morning as well as ABG. If patient's alkalemia worsens would stop. Also given improvement in BP would start to wean stress dose steroids. She does have a diagnosis of HTN along with her diabetes and Dementia and Schizoaffective disorder. Also from reviewing the charts at [facility], patient is/was very noncompliant with diabetic regimen so some of her mental state could be vascular disease related to uncontrolled diabetes too. Overall prognosis is guarded. 02/07/22: Family meeting today, please see my event note. albumin and lasix again this morning and then again tonight. Continue steroids. May need insulin drip. Guarded prognosis. 02/06/22: Overall prognosis continues to worsen. She did respond to albumin and lasix with good urine output. Will give again tonight. Bronch results are ne gative and repeat cultures are negative. CXR continues to be consistent with ARDS. This could be AIP. Now on steroids so will see how she responds. Unfortunately I was not able to meet with the family today but plan to meet with them at 11 tomorrow. appreciate heme help. Given her response to steroids BP salazar, if this is truly acute interstitial pneumonitis, may consider pulse dose steroids. Will discuss with family risks of this as well. 02/05/22: Follow up bronch results. Appreciate ID assistance and changing of abx therapy. COntinue high PEEP and small TV. Ok with permissive hypercapnea as long as pH is >7.2. Follow up heme assessment. Has Kleib in tracheal aspirate. Follow up blood cultures. Will meet with family tomorrow. Overall prognosis is guarded to poor. 02/04/22: Repeat cultures this am while she is febrile. Bronched this am and wash taken from right middle lobe. Worsening CXR is likely related to the volume given yesterday. Will consult heme today as her numbers continue to worsen. Gram Negative Rods found in Tracheal aspirate from 02/01. Follow up speciation of this as well as bronch results. Will send for fungal cultures as well. Needs art line. Stop bob and change to vasopressin. Overall prognosis is very very guarded to poor. 02/03/22: Needs repeat culture with next fever spike. concern now that she is still spiking temps on broad spec abx. may need to broaden even more with antifungal but will discuss tomorrow with pharmacy tomorrow. pH is better but worsening hypoxemia. CXR shows bilateral infiltrates. Will consider bronch tomorrow for washing to be sent for culture. Consider Heme consult tomorrow. Echo was stable. Guarded to poor prognosis. Sugar is better today. 02/02/22: Wean Vasopressors as tolerated for maps >65. Check echo. Stop insulin therapy. Q1hour fSbs and cover with sliding scale. Repeat ABG later today to follow pH. May need some diamox later. Patient now neutropenic and thrombocytopenic, repeated CBC and still the same. may need to consider heme consult. For now continue broad spec abx therapy. prognosis is guarded to poor. 2 amps of NaBicarb pushed Started on Insulin drip Central line placement secondary to lack of access Aggressive volume resuscitation q1 hour fsbs and q6 hour BMPs for the next 36-48 hours Supplemental O2 Not a candidate for bipap currently given mental state so if her respiratory status deteriorates would need intubation. Guarded prognosis. Spoke with daughter briefly at bedside. She did not get off her cell phone so not able to have a full conversation with her about her mother. CCT 31 minutes. Subjective Date of service: 02/13/22 Principal diagnosis: DKA, s/p cardiopulmonary arrest Interval history: Did about 3 hours of PSV yesterday off sedation. Objective Vital Signs - 12hr 02/12/22 02/12/22 02/12/22 13:31 13:45 14:00 Temperature Pulse Rate 113 H 113 H 110 H Pulse Rate [ From Monitor] Respiratory 23 22 21 Rate Blood Pressure 111/85 111/85 121/79 O2 Sat by Pulse 100 100 100 Oximetry 02/12/22 02/12/22 02/12/22 14:15 14:31 14:45 Temperature Pulse Rate 110 H 110 H 114 H Pulse Rate [ From Monitor] Respiratory 21 21 24 Rate Blood Pressure 121/79 121/79 121/79 O2 Sat by Pulse 100 100 100 Oximetry 02/12/22 02/12/22 02/12/22 15:00 15:10 15:15 Temperature Pulse Rate 113 H 112 H 108 H Pulse Rate [ From Monitor] Respiratory 23 23 19 Rate Blood Pressure 159/91 159/91 159/91 O2 Sat by Pulse 100 100 100 Oximetry 02/12/22 02/12/22 02/12/22 15:31 15:45 16:00 Temperature 98.5 F Pulse Rate 127 H 118 H 117 H Pulse Rate [ 106 H From Monitor] Respiratory 33 H 21 22 Rate Blood Pressure 159/91 159/91 131/89 O2 Sat by Pulse 100 100 99 Oximetry 02/12/22 02/12/22 02/12/22 16:37 16:39 16:41 Temperature Pulse Rate 117 H 118 H 120 H Pulse Rate [ From Monitor] Respiratory 24 24 24 Rate Blood Pressure 131/89 131/89 131/89 O2 Sat by Pulse 100 100 100 Oximetry 02/12/22 02/12/22 02/12/22 16:43 16:45 16:47 Temperature Pulse Rate 122 H 122 H 125 H Pulse Rate [ From Monitor] Respiratory 29 H 25 H 28 H Rate Blood Pressure 131/89 131/89 131/89 O2 Sat by Pulse 100 100 100 Oximetry 02/12/22 02/12/22 02/12/22 16:49 16:51 16:53 Temperature Pulse Rate 125 H 124 H 125 H Pulse Rate [ From Monitor] Respiratory 27 H 27 H 27 H Rate Blood Pressure 131/89 131/89 131/89 O2 Sat by Pulse 100 100 100 Oximetry 02/12/22 02/12/22 02/12/22 16:55 16:57 16:59 Temperature Pulse Rate 124 H 126 H 125 H Pulse Rate [ From Monitor] Respiratory 28 H 28 H 27 H Rate Blood Pressure 131/89 131/89 131/89 O2 Sat by Pulse 100 100 100 Oximetry 02/12/22 02/12/22 02/12/22 17:00 17:01 17:03 Temperature Pulse Rate 124 H 123 H 122 H Pulse Rate [ From Monitor] Respiratory 23 25 H 26 H Rate Blood Pressure 140/89 140/89 140/89 O2 Sat by Pulse 100 100 100 Oximetry 02/12/22 02/12/22 02/12/22 17:05 17:07 17:09 Temperature Pulse Rate 122 H 122 H 123 H Pulse Rate [ From Monitor] Respiratory 25 H 25 H 28 H Rate Blood Pressure 140/89 140/89 140/89 O2 Sat by Pulse 100 100 100 Oximetry 02/12/22 02/12/22 02/12/22 17:11 17:13 17:15 Temperature Pulse Rate 123 H 126 H 127 H Pulse Rate [ From Monitor] Respiratory 26 H 25 H 25 H Rate Blood Pressure 140/89 140/89 140/89 O2 Sat by Pulse 100 100 100 Oximetry 02/12/22 02/12/22 02/12/22 17:17 17:19 17:21 Temperature Pulse Rate 127 H 130 H 133 H Pulse Rate [ From Monitor] Respiratory 32 H 33 H 32 H Rate Blood Pressure 140/89 140/89 140/89 O2 Sat by Pulse 100 100 100 Oximetry 02/12/22 02/12/22 02/12/22 17:23 17:25 17:27 Temperature Pulse Rate 130 H 131 H 132 H Pulse Rate [ From Monitor] Respiratory 31 H 32 H 30 H Rate Blood Pressure 140/89 140/89 140/89 O2 Sat by Pulse 100 100 100 Oximetry 02/12/22 02/12/22 02/12/22 17:29 17:31 17:33 Temperature Pulse Rate 133 H 135 H 139 H Pulse Rate [ From Monitor] Respiratory 30 H 29 H 28 H Rate Blood Pressure 140/89 140/89 140/89 O2 Sat by Pulse 100 100 100 Oximetry 02/12/22 02/12/22 02/12/22 17:35 17:37 17:39 Temperature Pulse Rate 133 H 130 H 129 H Pulse Rate [ From Monitor] Respiratory 28 H 31 H 27 H Rate Blood Pressure 140/89 140/89 140/89 O2 Sat by Pulse 100 99 100 Oximetry 02/12/22 02/12/22 02/12/22 17:41 17:43 17:45 Temperature Pulse Rate 128 H 127 H 126 H Pulse Rate [ From Monitor] Respiratory 29 H 27 H 26 H Rate Blood Pressure 140/89 140/89 140/89 O2 Sat by Pulse 100 100 100 Oximetry 02/12/22 02/12/22 02/12/22 17:47 17:49 17:51 Temperature Pulse Rate 125 H 125 H 124 H Pulse Rate [ From Monitor] Respiratory 25 H 25 H 25 H Rate Blood Pressure 140/89 140/89 140/89 O2 Sat by Pulse 100 100 100 Oximetry 02/12/22 02/12/22 02/12/22 17:53 17:55 17:57 Temperature Pulse Rate 123 H 124 H 123 H Pulse Rate [ From Monitor] Respiratory 26 H 27 H 26 H Rate Blood Pressure 140/89 140/89 140/89 O2 Sat by Pulse 100 100 100 Oximetry 02/12/22 02/12/22 02/12/22 17:59 18:00 18:01 Temperature Pulse Rate 128 H 126 H 126 H Pulse Rate [ From Monitor] Respiratory 24 29 H 29 H Rate Blood Pressure 140/89 154/94 154/94 O2 Sat by Pulse 100 100 100 Oximetry 02/12/22 02/12/22 02/12/22 18:03 18:05 18:07 Temperature Pulse Rate 124 H 125 H 112 H Pulse Rate [ From Monitor] Respiratory 27 H 29 H 25 H Rate Blood Pressure 154/94 154/94 154/94 O2 Sat by Pulse 100 100 99 Oximetry 02/12/22 02/12/22 02/12/22 18:09 18:11 18:15 Temperature Pulse Rate 71 106 H 126 H Pulse Rate [ From Monitor] Respiratory 23 22 Rate Blood Pressure 226/100 226/100 200/106 O2 Sat by Pulse 94 92 100 Oximetry 02/12/22 02/13/22 20:37 00:17 Temperature Pulse Rate 114 H 105 H Pulse Rate [ From Monitor] Respiratory Rate Blood Pressure 100/60 92/57 O2 Sat by Pulse 100 100 Oximetry Constitutional: other (on vent, orally intubated) Eyes: non-icteric ENT: oropharynx moist Ascultation: Bilateral: diminished breath sounds Cardiovascular: regular rate and rhythm Gastrointestinal: normoactive bowel sounds Integumentary: normal Neurologic: other (on vent) Psychiatric: other (on vent) CBC and BMP: 02/13/22 04:00 02/13/22 04:00 ABG, PT/INR, D-dimer: ABG ABG pH 7.467 pH Units (7.350-7.450) H 02/12/22 05:00 POC ABG pCO2 37.3 mmHg (32.0-48.0) 02/02/22 04:49 ABG pCO2 57.6 mm Hg 02/12/22 05:00 POC ABG pO2 79.9 mmHg (83-108) L 02/02/22 04:49 ABG pO2 97.9 mm Hg (80.0-90.0) H 02/12/22 05:00 POC ABG HCO3 30.3 02/02/22 04:49 ABG O2 Saturation 97.4 % (95.0-99.0) 02/12/22 05:00 PT/INR, D-dimer PT 14.8 Sec. (12.2-14.9) 02/05/22 08:48 INR 1.02 (0.87-1.13) 02/05/22 08:48 Abnormal lab findings: Abnormal Labs 01/31/22 01/31/22 01/31/22 20:33 20:33 20:33 WBC 12.5 H RBC 6.16 H Hgb Hct MCV 61 L MCH 18 L RDW 19.6 H Plt Count Seg Neuts % (Manual) 98.0 H Lymphocytes % (Manual) 0 L Nucleated RBC % 2.0 H Seg Neutrophils # Man 12.3 H Lymphocytes # (Manual) 0.0 L Percent Retic Fibrinogen ABG pH POC ABG pO2 ABG pO2 ABG HCO3 ABG O2 Saturation ABG Base Excess ABG Hemoglobin Oxyhemoglobin Carboxyhemoglobin Sodium Potassium 5.6 H Chloride 110.1 H Carbon Dioxide 9 L* BUN Creatinine Glucose 254 H POC Glucose Hemoglobin A1c Lactic Acid 2.50 H* Calcium 10.8 H Phosphorus Magnesium Direct Bilirubin AST ALT Alkaline Phosphatase Lactate Dehydrogenase Total Protein Albumin Ur Specific [place] Urine Blood Urine WBC (Auto) Vancomycin Trough Crossmatch 01/31/22 02/01/22 02/01/22 22:49 07:34 08:22 WBC RBC Hgb Hct MCV MCH RDW Plt Count Seg Neuts % (Manual) Lymphocytes % (Manual) Nucleated RBC % Seg Neutrophils # Man Lymphocytes # (Manual) Percent Retic Fibrinogen ABG pH POC ABG pO2 ABG pO2 ABG HCO3 ABG O2 Saturation ABG Base Excess ABG Hemoglobin Oxyhemoglobin Carboxyhemoglobin Sodium Potassium 5.8 H Chloride 115.8 H Carbon Dioxide 3 L* BUN Creatinine Glucose 400 H POC Glucose 368 H Hemoglobin A1c Lactic Acid Calcium Phosphorus Magnesium Direct Bilirubin AST ALT Alkaline Phosphatase Lactate Dehydrogenase Total Protein Albumin Ur Specific [place] 1.035 H Urine Blood Small A Urine WBC (Auto) 142.0 H Vancomycin Trough Crossmatch 02/01/22 02/01/22 02/01/22 09:42 12:01 12:54 WBC RBC Hgb Hct MCV MCH RDW Plt Count Seg Neuts % (Manual) Lymphocytes % (Manual) Nucleated RBC % Seg Neutrophils # Man Lymphocytes # (Manual) Percent Retic Fibrinogen ABG pH 7.044 L* POC ABG pO2 ABG pO2 121.0 H ABG HCO3 3.7 L ABG O2 Saturation ABG Base Excess -24.8 L ABG Hemoglobin 9.3 L Oxyhemoglobin Carboxyhemoglobin Sodium Potassium Chloride Carbon Dioxide BUN Creatinine Glucose POC Glucose 382 H Hemoglobin A1c Lactic Acid Calcium Phosphorus 1.40 L Magnesium 1.30 L Direct Bilirubin AST ALT Alkaline Phosphatase Lactate Dehydrogenase Total Protein Albumin Ur Specific [place] Urine Blood Urine WBC (Auto) Vancomycin Trough Crossmatch 02/01/22 02/01/22 02/01/22 12:54 12:54 13:27 WBC RBC Hgb Hct MCV MCH RDW Plt Count Seg Neuts % (Manual) Lymphocytes % (Manual) Nucleated RBC % Seg Neutrophils # Man Lymphocytes # (Manual) Percent Retic Fibrinogen ABG pH POC ABG pO2 ABG pO2 ABG HCO3 ABG O2 Saturation ABG Base Excess ABG Hemoglobin Oxyhemoglobin Carboxyhemoglobin Sodium 148 H D Potassium 3.0 L D Chloride 117.3 H Carbon Dioxide 9 L* BUN Creatinine Glucose 439 H POC Glucose 342 H Hemoglobin A1c 11.1 H Lactic Acid Calcium 7.7 L Phosphorus Magnesium Direct Bilirubin AST ALT Alkaline Phosphatase Lactate Dehydrogenase Total Protein Albumin Ur Specific [place] Urine Blood Urine WBC (Auto) Vancomycin Trough Crossmatch 02/01/22 02/01/22 02/01/22 14:48 15:48 16:54 WBC RBC Hgb Hct MCV MCH RDW Plt Count Seg Neuts % (Manual) Lymphocytes % (Manual) Nucleated RBC % Seg Neutrophils # Man Lymphocytes # (Manual) Percent Retic Fibrinogen ABG pH POC ABG pO2 ABG pO2 ABG HCO3 ABG O2 Saturation ABG Base Excess ABG Hemoglobin Oxyhemoglobin Carboxyhemoglobin Sodium Potassium Chloride Carbon Dioxide BUN Creatinine Glucose POC Glucose 394 H 412 H 352 H Hemoglobin A1c Lactic Acid Calcium Phosphorus Magnesium Direct Bilirubin AST ALT Alkaline Phosphatase Lactate Dehydrogenase Total Protein Albumin Ur Specific [place] Urine Blood Urine WBC (Auto) Vancomycin Trough Crossmatch 02/01/22 02/01/22 02/01/22 18:23 18:53 19:26 WBC RBC Hgb Hct MCV MCH RDW Plt Count Seg Neuts % (Manual) Lymphocytes % (Manual) Nucleated RBC % Seg Neutrophils # Man Lymphocytes # (Manual) Percent Retic Fibrinogen ABG pH 7.331 L POC ABG pO2 ABG pO2 121.4 H ABG HCO3 ABG O2 Saturation ABG Base Excess -4.9 L ABG Hemoglobin 8.4 L Oxyhemoglobin Carboxyhemoglobin Sodium Potassium Chloride Carbon Dioxide BUN Creatinine Glucose POC Glucose 350 H 260 H Hemoglobin A1c Lactic Acid Calcium Phosphorus Magnesium Direct Bilirubin AST ALT Alkaline Phosphatase Lactate Dehydrogenase Total Protein Albumin Ur Specific [place] Urine Blood Urine WBC (Auto) Vancomycin Trough Crossmatch 02/01/22 02/01/22 02/01/22 20:20 21:38 22:41 WBC RBC Hgb Hct MCV MCH RDW Plt Count Seg Neuts % (Manual) Lymphocytes % (Manual) Nucleated RBC % Seg Neutrophils # Man Lymphocytes # (Manual) Percent Retic Fibrinogen ABG pH POC ABG pO2 ABG pO2 ABG HCO3 ABG O2 Saturation ABG Base Excess ABG Hemoglobin Oxyhemoglobin Carboxyhemoglobin Sodium Potassium Chloride Carbon Dioxide BUN Creatinine Glucose POC Glucose 266 H 195 H 150 H Hemoglobin A1c Lactic Acid Calcium Phosphorus Magnesium Direct Bilirubin AST ALT Alkaline Phosphatase Lactate Dehydrogenase Total Protein Albumin Ur Specific [place] Urine Blood Urine WBC (Auto) Vancomycin Trough Crossmatch 02/01/22 02/02/22 02/02/22 23:39 00:25 00:25 WBC RBC Hgb Hct MCV MCH RDW Plt Count Seg Neuts % (Manual) Lymphocytes % (Manual) Nucleated RBC % Seg Neutrophils # Man Lymphocytes # (Manual) Percent Retic Fibrinogen ABG pH POC ABG pO2 ABG pO2 ABG HCO3 ABG O2 Saturation ABG Base Excess ABG Hemoglobin Oxyhemoglobin Carboxyhemoglobin Sodium 156 H D Potassium 3.0 L Chloride 114.2 H Carbon Dioxide BUN Creatinine 0.5 L Glucose 63 L POC Glucose 125 H Hemoglobin A1c Lactic Acid 7.10 H* Calcium 8.1 L Phosphorus Magnesium Direct Bilirubin AST ALT Alkaline Phosphatase Lactate Dehydrogenase Total Protein Albumin Ur Specific [place] Urine Blood Urine WBC (Auto) Vancomycin Trough Crossmatch 02/02/22 02/02/22 02/02/22 04:00 04:00 04:35 WBC 1.4 L* RBC Hgb 8.5 L Hct 26.8 L D MCV 57 L MCH 18 L RDW 19.0 H Plt Count 129 L Seg Neuts % (Manual) 33.0 L Lymphocytes % (Manual) 57.0 H Nucleated RBC % Seg Neutrophils # Man 0.5 L Lymphocytes # (Manual) 0.8 L Percent Retic Fibrinogen ABG pH POC ABG pO2 ABG pO2 ABG HCO3 ABG O2 Saturation ABG Base Excess ABG Hemoglobin Oxyhemoglobin Carboxyhemoglobin Sodium 155 H Potassium Chloride 113.1 H Carbon Dioxide BUN Creatinine Glucose 159 H POC Glucose Hemoglobin A1c Lactic Acid 3.10 H* Calcium 7.6 L Phosphorus Magnesium Direct Bilirubin AST ALT Alkaline Phosphatase Lactate Dehydrogenase Total Protein Albumin Ur Specific [place] Urine Blood Urine WBC (Auto) Vancomycin Trough Crossmatch 02/02/22 02/02/22 02/02/22 04:37 04:49 05:43 WBC RBC Hgb Hct MCV MCH RDW Plt Count Seg Neuts % (Manual) Lymphocytes % (Manual) Nucleated RBC % Seg Neutrophils # Man Lymphocytes # (Manual) Percent Retic Fibrinogen ABG pH 7.528 H POC ABG pO2 79.9 L ABG pO2 ABG HCO3 ABG O2 Saturation ABG Base Excess ABG Hemoglobin 8.8 L Oxyhemoglobin Carboxyhemoglobin 0.2 L Sodium Potassium Chloride Carbon Dioxide BUN Creatinine Glucose POC Glucose 116 H 125 H Hemoglobin A1c Lactic Acid Calcium Phosphorus Magnesium Direct Bilirubin AST ALT Alkaline Phosphatase Lactate Dehydrogenase Total Protein Albumin Ur Specific [place] Urine Blood Urine WBC (Auto) Vancomycin Trough Crossmatch 02/02/22 02/02/22 02/02/22 06:52 09:02 09:05 WBC RBC Hgb Hct MCV MCH RDW Plt Count Seg Neuts % (Manual) Lymphocytes % (Manual) Nucleated RBC % Seg Neutrophils # Man Lymphocytes # (Manual) Percent Retic Fibrinogen ABG pH POC ABG pO2 ABG pO2 ABG HCO3 ABG O2 Saturation ABG Base Excess ABG Hemoglobin Oxyhemoglobin Carboxyhemoglobin Sodium 154 H Potassium 3.3 L Chloride 113.3 H Carbon Dioxide BUN Creatinine Glucose 35 L* POC Glucose 110 H 35 L Hemoglobin A1c Lactic Acid Calcium 7.4 L Phosphorus 1.70 L D Magnesium 2.50 H Direct Bilirubin AST ALT Alkaline Phosphatase Lactate Dehydrogenase Total Protein Albumin Ur Specific [place] Urine Blood Urine WBC (Auto) Vancomycin Trough Crossmatch 02/02/22 02/02/22 02/02/22 09:05 09:30 09:41 WBC 2.6 L RBC Hgb 8.0 L Hct 25.0 L MCV 57 L MCH 18 L RDW 18.8 H Plt Count 97 L Seg Neuts % (Manual) Lymphocytes % (Manual) 12.0 L Nucleated RBC % 10.0 H Seg Neutrophils # Man 1.7 L Lymphocytes # (Manual) 0.3 L Percent Retic Fibrinogen ABG pH POC ABG pO2 ABG pO2 ABG HCO3 ABG O2 Saturation ABG Base Excess ABG Hemoglobin Oxyhemoglobin Carboxyhemoglobin Sodium Potassium Chloride Carbon Dioxide BUN Creatinine Glucose POC Glucose 119 H Hemoglobin A1c Lactic Acid 7.10 H* Calcium Phosphorus Magnesium Direct Bilirubin AST ALT Alkaline Phosphatase Lactate Dehydrogenase Total Protein Albumin Ur Specific [place] Urine Blood Urine WBC (Auto) Vancomycin Trough Crossmatch 02/02/22 02/02/22 02/02/22 10:17 12:32 15:39 WBC RBC Hgb Hct MCV MCH RDW Plt Count Seg Neuts % (Manual) Lymphocytes % (Manual) Nucleated RBC % Seg Neutrophils # Man Lymphocytes # (Manual) Percent Retic Fibrinogen ABG pH POC ABG pO2 ABG pO2 ABG HCO3 ABG O2 Saturation ABG Base Excess ABG Hemoglobin Oxyhemoglobin Carboxyhemoglobin Sodium Potassium Chloride Carbon Dioxide BUN Creatinine Glucose POC Glucose 120 H 166 H 263 H Hemoglobin A1c Lactic Acid Calcium Phosphorus Magnesium Direct Bilirubin AST ALT Alkaline Phosphatase Lactate Dehydrogenase Total Protein Albumin Ur Specific [place] Urine Blood Urine WBC (Auto) Vancomycin Trough Crossmatch 02/02/22 02/02/22 02/02/22 17:07 17:50 Unknown WBC RBC Hgb Hct MCV MCH RDW Plt Count Seg Neuts % (Manual) Lymphocytes % (Manual) Nucleated RBC % Seg Neutrophils # Man Lymphocytes # (Manual) Percent Retic Fibrinogen ABG pH 7.457 H POC ABG pO2 ABG pO2 71.0 L ABG HCO3 ABG O2 Saturation 94.5 L ABG Base Excess ABG Hemoglobin 9.2 L Oxyhemoglobin 93.0 L Carboxyhemoglobin Sodium 147 H Potassium 5.5 H D Chloride 110.8 H Carbon Dioxide BUN Creatinine Glucose 271 H POC Glucose 231 H Hemoglobin A1c Lactic Acid Calcium 7.3 L Phosphorus Magnesium Direct Bilirubin AST ALT Alkaline Phosphatase Lactate Dehydrogenase Total Protein Albumin Ur Specific [place] Urine Blood Urine WBC (Auto) Vancomycin Trough Crossmatch 02/03/22 02/03/22 02/03/22 00:08 04:00 04:00 WBC 3.7 L RBC Hgb 8.0 L Hct 25.5 L MCV 58 L MCH 18 L RDW 18.2 H Plt Count 79 L Seg Neuts % (Manual) 76.0 H Lymphocytes % (Manual) 2.0 L Nucleated RBC % 4.0 H Seg Neutrophils # Man Lymphocytes # (Manual) 0.1 L Percent Retic Fibrinogen ABG pH POC ABG pO2 ABG pO2 ABG HCO3 ABG O2 Saturation ABG Base Excess ABG Hemoglobin Oxyhemoglobin Carboxyhemoglobin Sodium 147 H Potassium Chloride 112.9 H Carbon Dioxide BUN Creatinine Glucose 281 H POC Glucose 231 H Hemoglobin A1c Lactic Acid Calcium 7.8 L Phosphorus Magnesium Direct Bilirubin 0.3 H AST 172 H ALT 89 H Alkaline Phosphatase Lactate Dehydrogenase Total Protein 4.7 L D Albumin 2.0 L Ur Specific [place] Urine Blood Urine WBC (Auto) Vancomycin Trough Crossmatch 02/03/22 02/03/22 02/03/22 04:20 05:26 11:38 WBC RBC Hgb Hct MCV MCH RDW Plt Count Seg Neuts % (Manual) Lymphocytes % (Manual) Nucleated RBC % Seg Neutrophils # Man Lymphocytes # (Manual) Percent Retic Fibrinogen ABG pH POC ABG pO2 ABG pO2 75.5 L ABG HCO3 ABG O2 Saturation ABG Base Excess -2.8 L ABG Hemoglobin 8.1 L Oxyhemoglobin 94.6 L Carboxyhemoglobin Sodium Potassium Chloride Carbon Dioxide BUN Creatinine Glucose POC Glucose 247 H 196 H Hemoglobin A1c Lactic Acid Calcium Phosphorus Magnesium Direct Bilirubin AST ALT Alkaline Phosphatase Lactate Dehydrogenase Total Protein Albumin Ur Specific [place] Urine Blood Urine WBC (Auto) Vancomycin Trough Crossmatch 02/03/22 02/04/22 02/04/22 16:27 02:44 03:18 WBC 1.2 L* RBC Hgb 8.2 L Hct 26.6 L MCV 59 L MCH 18 L RDW 19.6 H Plt Count 50 L Seg Neuts % (Manual) Lymphocytes % (Manual) Nucleated RBC % Seg Neutrophils # Man Lymphocytes # (Manual) Percent Retic Fibrinogen ABG pH POC ABG pO2 ABG pO2 ABG HCO3 ABG O2 Saturation ABG Base Excess ABG Hemoglobin Oxyhemoglobin Carboxyhemoglobin Sodium 148 H Potassium Chloride 116.3 H Carbon Dioxide BUN Creatinine Glucose 139 H POC Glucose 119 H Hemoglobin A1c Lactic Acid Calcium Phosphorus Magnesium Direct Bilirubin 0.3 H AST 92 H ALT 76 H Alkaline Phosphatase Lactate Dehydrogenase Total Protein 4.7 L Albumin 1.6 L Ur Specific [place] Urine Blood Urine WBC (Auto) Vancomycin Trough Crossmatch 02/04/22 02/04/22 02/04/22 05:15 05:26 09:15 WBC RBC Hgb Hct MCV MCH RDW Plt Count Seg Neuts % (Manual) Lymphocytes % (Manual) Nucleated RBC % Seg Neutrophils # Man Lymphocytes # (Manual) Percent Retic Fibrinogen ABG pH 7.311 L POC ABG pO2 ABG pO2 50.1 L ABG HCO3 ABG O2 Saturation 83.6 L ABG Base Excess ABG Hemoglobin 8.6 L Oxyhemoglobin 81.9 L Carboxyhemoglobin Sodium Potassium Chloride Carbon Dioxide BUN Creatinine Glucose POC Glucose 115 H Hemoglobin A1c Lactic Acid Calcium Phosphorus Magnesium Direct Bilirubin AST ALT Alkaline Phosphatase Lactate Dehydrogenase Total Protein Albumin Ur Specific [place] Urine Blood Large A Urine WBC (Auto) 12.0 H Vancomycin Trough Crossmatch 02/04/22 02/04/22 02/04/22 11:17 14:37 17:04 WBC RBC Hgb Hct MCV MCH RDW Plt Count Seg Neuts % (Manual) Lymphocytes % (Manual) Nucleated RBC % Seg Neutrophils # Man Lymphocytes # (Manual) Percent Retic Fibrinogen ABG pH POC ABG pO2 ABG pO2 ABG HCO3 ABG O2 Saturation ABG Base Excess ABG Hemoglobin Oxyhemoglobin Carboxyhemoglobin Sodium Potassium Chloride Carbon Dioxide BUN Creatinine Glucose POC Glucose 166 H 109 H Hemoglobin A1c Lactic Acid Calcium Phosphorus Magnesium Direct Bilirubin AST 87 H ALT 75 H Alkaline Phosphatase 137 H Lactate Dehydrogenase Total Protein 4.6 L Albumin 1.7 L Ur Specific [place] Urine Blood Urine WBC (Auto) Vancomycin Trough Crossmatch 02/04/22 02/04/22 02/04/22 20:15 20:22 20:22 WBC RBC Hgb 7.1 L Hct 22.6 L MCV MCH RDW Plt Count Seg Neuts % (Manual) Lymphocytes % (Manual) Nucleated RBC % Seg Neutrophils # Man Lymphocytes # (Manual) Percent Retic Fibrinogen ABG pH 7.292 L POC ABG pO2 ABG pO2 40.3 L ABG HCO3 ABG O2 Saturation 72.1 L ABG Base Excess -2.2 L ABG Hemoglobin 7.0 L Oxyhemoglobin 70.5 L Carboxyhemoglobin Sodium Potassium Chloride Carbon Dioxide BUN Creatinine Glucose POC Glucose Hemoglobin A1c Lactic Acid 3.00 H* Calcium Phosphorus Magnesium Direct Bilirubin AST ALT Alkaline Phosphatase Lactate Dehydrogenase Total Protein Albumin Ur Specific [place] Urine Blood Urine WBC (Auto) Vancomycin Trough Crossmatch 02/04/22 02/04/22 02/05/22 20:22 23:03 04:40 WBC 3.1 L RBC Hgb 9.6 L Hct 30.1 L D MCV 64 L MCH 20 L RDW 26.9 H Plt Count 50 L Seg Neuts % (Manual) Lymphocytes % (Manual) Nucleated RBC % Seg Neutrophils # Man Lymphocytes # (Manual) Percent Retic Fibrinogen ABG pH POC ABG pO2 ABG pO2 ABG HCO3 ABG O2 Saturation ABG Base Excess ABG Hemoglobin Oxyhemoglobin Carboxyhemoglobin Sodium Potassium Chloride Carbon Dioxide BUN Creatinine Glucose POC Glucose 171 H Hemoglobin A1c Lactic Acid Calcium Phosphorus Magnesium Direct Bilirubin AST ALT Alkaline Phosphatase Lactate Dehydrogenase Total Protein Albumin Ur Specific [place] Urine Blood Urine WBC (Auto) Vancomycin Trough Crossmatch See Detail 02/05/22 02/05/22 02/05/22 04:40 04:40 04:43 WBC RBC Hgb Hct MCV MCH RDW Plt Count Seg Neuts % (Manual) Lymphocytes % (Manual) Nucleated RBC % Seg Neutrophils # Man Lymphocytes # (Manual) Percent Retic Fibrinogen ABG pH POC ABG pO2 ABG pO2 ABG HCO3 ABG O2 Saturation ABG Base Excess ABG Hemoglobin Oxyhemoglobin Carboxyhemoglobin Sodium 148 H Potassium Chloride 113.2 H Carbon Dioxide BUN 21 H Creatinine Glucose 155 H POC Glucose 156 H Hemoglobin A1c Lactic Acid Calcium Phosphorus Magnesium Direct Bilirubin AST 84 H ALT 67 H Alkaline Phosphatase 152 H Lactate Dehydrogenase 879 H Total Protein 5.0 L Albumin 1.8 L Ur Specific [place] Urine Blood Urine WBC (Auto) Vancomycin Trough Crossmatch 02/05/22 02/05/22 02/05/22 08:10 08:48 08:48 WBC RBC Hgb Hct MCV MCH RDW Plt Count Seg Neuts % (Manual) Lymphocytes % (Manual) Nucleated RBC % Seg Neutrophils # Man Lymphocytes # (Manual) Percent Retic Fibrinogen 795 H ABG pH POC ABG pO2 ABG pO2 57.1 L ABG HCO3 27.8 H ABG O2 Saturation 90.8 L ABG Base Excess ABG Hemoglobin 8.5 L Oxyhemoglobin 88.9 L Carboxyhemoglobin Sodium Potassium Chloride Carbon Dioxide BUN Creatinine Glucose POC Glucose Hemoglobin A1c Lactic Acid 2.90 H* Calcium Phosphorus Magnesium Direct Bilirubin AST ALT Alkaline Phosphatase Lactate Dehydrogenase Total Protein Albumin Ur Specific [place] Urine Blood Urine WBC (Auto) Vancomycin Trough Crossmatch 02/05/22 02/05/22 02/05/22 11:46 17:45 Unknown WBC RBC Hgb Hct MCV MCH RDW Plt Count Seg Neuts % (Manual) Lymphocytes % (Manual) Nucleated RBC % Seg Neutrophils # Man Lymphocytes # (Manual) Percent Retic Fibrinogen ABG pH POC ABG pO2 ABG pO2 ABG HCO3 ABG O2 Saturation ABG Base Excess ABG Hemoglobin Oxyhemoglobin Carboxyhemoglobin Sodium Potassium Chloride Carbon Dioxide BUN Creatinine Glucose POC Glucose 61 L 133 H Hemoglobin A1c Lactic Acid Calcium Phosphorus Magnesium Direct Bilirubin AST ALT Alkaline Phosphatase Lactate Dehydrogenase Total Protein Albumin Ur Specific [place] Urine Blood Urine WBC (Auto) Vancomycin Trough 28.6 H Crossmatch 02/05/22 02/06/22 02/06/22 23:59 04:33 04:33 WBC RBC Hgb 8.4 L Hct 26.1 L MCV 64 L MCH 21 L RDW 26.2 H Plt Count 38 L Seg Neuts % (Manual) Lymphocytes % (Manual) Nucleated RBC % Seg Neutrophils # Man Lymphocytes # (Manual) Percent Retic Fibrinogen ABG pH POC ABG pO2 ABG pO2 ABG HCO3 ABG O2 Saturation ABG Base Excess ABG Hemoglobin Oxyhemoglobin Carboxyhemoglobin Sodium 146 H Potassium 3.4 L Chloride Carbon Dioxide 31 H BUN 21 H Creatinine Glucose 230 H POC Glucose 275 H Hemoglobin A1c Lactic Acid Calcium Phosphorus Magnesium Direct Bilirubin AST 70 H ALT Alkaline Phosphatase 197 H Lactate Dehydrogenase Total Protein 5.3 L Albumin 2.4 L Ur Specific [place] Urine Blood Urine WBC (Auto) Vancomycin Trough Crossmatch 02/06/22 02/06/22 02/06/22 04:33 04:50 06:19 WBC RBC Hgb Hct MCV MCH RDW Plt Count Seg Neuts % (Manual) Lymphocytes % (Manual) Nucleated RBC % Seg Neutrophils # Man Lymphocytes # (Manual) Percent Retic Fibrinogen ABG pH 7.330 L POC ABG pO2 ABG pO2 57.9 L ABG HCO3 31.3 H ABG O2 Saturation 89.6 L ABG Base Excess 4.5 H ABG Hemoglobin 8.1 L Oxyhemoglobin 87.7 L Carboxyhemoglobin Sodium Potassium Chloride Carbon Dioxide BUN Creatinine Glucose POC Glucose 219 H Hemoglobin A1c Lactic Acid 3.10 H* Calcium Phosphorus Magnesium Direct Bilirubin AST ALT Alkaline Phosphatase Lactate Dehydrogenase Total Protein Albumin Ur Specific [place] Urine Blood Urine WBC (Auto) Vancomycin Trough Crossmatch 02/06/22 02/06/22 02/06/22 11:24 11:50 12:26 WBC RBC Hgb Hct MCV MCH RDW Plt Count Seg Neuts % (Manual) Lymphocytes % (Manual) Nucleated RBC % Seg Neutrophils # Man Lymphocytes # (Manual) Percent Retic Fibrinogen ABG pH 7.298 L POC ABG pO2 ABG pO2 43.3 L ABG HCO3 36.7 H ABG O2 Saturation 74.9 L ABG Base Excess 8.8 H ABG Hemoglobin 8.2 L Oxyhemoglobin 73.3 L Carboxyhemoglobin Sodium Potassium Chloride Carbon Dioxide BUN Creatinine Glucose POC Glucose 118 H Hemoglobin A1c Lactic Acid 2.50 H* Calcium Phosphorus Magnesium Direct Bilirubin AST ALT Alkaline Phosphatase Lactate Dehydrogenase Total Protein Albumin Ur Specific [place] Urine Blood Urine WBC (Auto) Vancomycin Trough Crossmatch 02/06/22 02/06/22 02/07/22 17:41 21:41 00:17 WBC RBC Hgb Hct MCV MCH RDW Plt Count Seg Neuts % (Manual) Lymphocytes % (Manual) Nucleated RBC % Seg Neutrophils # Man Lymphocytes # (Manual) Percent Retic Fibrinogen ABG pH POC ABG pO2 ABG pO2 ABG HCO3 ABG O2 Saturation ABG Base Excess ABG Hemoglobin Oxyhemoglobin Carboxyhemoglobin Sodium Potassium Chloride Carbon Dioxide BUN Creatinine Glucose POC Glucose 208 H 282 H 342 H Hemoglobin A1c Lactic Acid Calcium Phosphorus Magnesium Direct Bilirubin AST ALT Alkaline Phosphatase Lactate Dehydrogenase Total Protein Albumin Ur Specific [place] Urine Blood Urine WBC (Auto) Vancomycin Trough Crossmatch 02/07/22 02/07/22 02/07/22 00:19 04:12 04:12 WBC 13.1 H RBC Hgb 8.5 L Hct 26.4 L MCV 62 L MCH 20 L RDW 24.2 H Plt Count 57 L Seg Neuts % (Manual) Lymphocytes % (Manual) Nucleated RBC % Seg Neutrophils # Man Lymphocytes # (Manual) Percent Retic Fibrinogen ABG pH POC ABG pO2 ABG pO2 ABG HCO3 ABG O2 Saturation ABG Base Excess ABG Hemoglobin Oxyhemoglobin Carboxyhemoglobin Sodium 149 H Potassium 3.1 L Chloride Carbon Dioxide 38 H D BUN 23 H Creatinine Glucose 298 H POC Glucose 209 H Hemoglobin A1c Lactic Acid Calcium Phosphorus 2.10 L Magnesium Direct Bilirubin AST 49 H ALT Alkaline Phosphatase 248 H Lactate Dehydrogenase Total Protein 5.4 L Albumin 2.7 L Ur Specific [place] Urine Blood Urine WBC (Auto) Vancomycin Trough Crossmatch 02/07/22 02/07/22 02/07/22 04:40 07:09 07:13 WBC RBC Hgb Hct MCV MCH RDW Plt Count Seg Neuts % (Manual) Lymphocytes % (Manual) Nucleated RBC % Seg Neutrophils # Man Lymphocytes # (Manual) Percent Retic Fibrinogen ABG pH 7.474 H POC ABG pO2 ABG pO2 62.1 L ABG HCO3 39.1 H ABG O2 Saturation 94.7 L ABG Base Excess 13.9 H ABG Hemoglobin 8.6 L Oxyhemoglobin 93.0 L Carboxyhemoglobin Sodium Potassium Chloride Carbon Dioxide BUN Creatinine Glucose POC Glucose 399 H 418 H Hemoglobin A1c Lactic Acid Calcium Phosphorus Magnesium Direct Bilirubin AST ALT Alkaline Phosphatase Lactate Dehydrogenase Total Protein Albumin Ur Specific [place] Urine Blood Urine WBC (Auto) Vancomycin Trough Crossmatch 02/07/22 02/07/22 02/07/22 12:20 17:29 23:37 WBC RBC Hgb Hct MCV MCH RDW Plt Count Seg Neuts % (Manual) Lymphocytes % (Manual) Nucleated RBC % Seg Neutrophils # Man Lymphocytes # (Manual) Percent Retic Fibrinogen ABG pH POC ABG pO2 ABG pO2 ABG HCO3 ABG O2 Saturation ABG Base Excess ABG Hemoglobin Oxyhemoglobin Carboxyhemoglobin Sodium Potassium Chloride Carbon Dioxide BUN Creatinine Glucose POC Glucose 229 H 159 H 236 H Hemoglobin A1c Lactic Acid Calcium Phosphorus Magnesium Direct Bilirubin AST ALT Alkaline Phosphatase Lactate Dehydrogenase Total Protein Albumin Ur Specific [place] Urine Blood Urine WBC (Auto) Vancomycin Trough Crossmatch 02/08/22 02/08/22 02/08/22 03:55 03:55 05:20 WBC 14.7 H RBC Hgb 7.7 L Hct 25.0 L MCV 64 L MCH 20 L RDW 25.1 H Plt Count 79 L Seg Neuts % (Manual) Lymphocytes % (Manual) Nucleated RBC % Seg Neutrophils # Man Lymphocytes # (Manual) Percent Retic 0.65 L Fibrinogen ABG pH POC ABG pO2 ABG pO2 ABG HCO3 ABG O2 Saturation ABG Base Excess ABG Hemoglobin Oxyhemoglobin Carboxyhemoglobin Sodium Potassium 3.0 L Chloride 93.9 L Carbon Dioxide 44 H* BUN 30 H Creatinine Glucose 229 H POC Glucose 235 H Hemoglobin A1c Lactic Acid Calcium 8.3 L Phosphorus 2.30 L Magnesium Direct Bilirubin AST 77 H ALT Alkaline Phosphatase 246 H Lactate Dehydrogenase Total Protein 5.2 L Albumin 2.7 L Ur Specific [place] Urine Blood Urine WBC (Auto) Vancomycin Trough Crossmatch 02/08/22 02/08/22 02/08/22 11:47 16:36 21:41 WBC RBC Hgb Hct MCV MCH RDW Plt Count Seg Neuts % (Manual) Lymphocytes % (Manual) Nucleated RBC % Seg Neutrophils # Man Lymphocytes # (Manual) Percent Retic Fibrinogen ABG pH POC ABG pO2 ABG pO2 ABG HCO3 ABG O2 Saturation ABG Base Excess ABG Hemoglobin Oxyhemoglobin Carboxyhemoglobin Sodium Potassium Chloride Carbon Dioxide BUN Creatinine Glucose POC Glucose 193 H 205 H 292 H Hemoglobin A1c Lactic Acid Calcium Phosphorus Magnesium Direct Bilirubin AST ALT Alkaline Phosphatase Lactate Dehydrogenase Total Protein Albumin Ur Specific [place] Urine Blood Urine WBC (Auto) Vancomycin Trough Crossmatch 02/08/22 02/08/22 02/09/22 Unknown 23:59 04:00 WBC 16.4 H RBC Hgb 8.2 L Hct 26.3 L MCV 63 L MCH 20 L RDW 23.9 H Plt Count 128 L Seg Neuts % (Manual) Lymphocytes % (Manual) Nucleated RBC % Seg Neutrophils # Man Lymphocytes # (Manual) Percent Retic Fibrinogen ABG pH 7.488 H POC ABG pO2 ABG pO2 63.1 L ABG HCO3 45.5 H ABG O2 Saturation 94.1 L ABG Base Excess 19.8 H ABG Hemoglobin 8.7 L Oxyhemoglobin 92.4 L Carboxyhemoglobin Sodium Potassium Chloride Carbon Dioxide BUN Creatinine Glucose POC Glucose 342 H Hemoglobin A1c Lactic Acid Calcium Phosphorus Magnesium Direct Bilirubin AST ALT Alkaline Phosphatase Lactate Dehydrogenase Total Protein Albumin Ur Specific [place] Urine Blood Urine WBC (Auto) Vancomycin Trough Crossmatch 02/09/22 02/09/22 02/09/22 04:00 05:30 06:07 WBC RBC Hgb Hct MCV MCH RDW Plt Count Seg Neuts % (Manual) Lymphocytes % (Manual) Nucleated RBC % Seg Neutrophils # Man Lymphocytes # (Manual) Percent Retic Fibrinogen ABG pH 7.539 H POC ABG pO2 ABG pO2 210.4 H ABG HCO3 42.4 H ABG O2 Saturation 99.3 H ABG Base Excess 18.0 H ABG Hemoglobin 7.8 L Oxyhemoglobin Carboxyhemoglobin Sodium 149 H Potassium 3.1 L Chloride 97.6 L Carbon Dioxide 42 H* BUN 27 H Creatinine Glucose 257 H POC Glucose 260 H Hemoglobin A1c Lactic Acid Calcium 8.2 L Phosphorus 1.90 L Magnesium Direct Bilirubin AST 81 H ALT Alkaline Phosphatase 229 H Lactate Dehydrogenase Total Protein 5.4 L Albumin 2.6 L Ur Specific [place] Urine Blood Urine WBC (Auto) Vancomycin Trough Crossmatch 02/09/22 02/09/22 02/09/22 11:16 17:33 20:25 WBC RBC Hgb Hct MCV MCH RDW Plt Count Seg Neuts % (Manual) Lymphocytes % (Manual) Nucleated RBC % Seg Neutrophils # Man Lymphocytes # (Manual) Percent Retic Fibrinogen ABG pH 7.504 H POC ABG pO2 ABG pO2 79.7 L ABG HCO3 44.2 H ABG O2 Saturation ABG Base Excess 19.2 H ABG Hemoglobin 7.0 L Oxyhemoglobin Carboxyhemoglobin Sodium Potassium Chloride Carbon Dioxide BUN Creatinine Glucose POC Glucose 184 H 123 H Hemoglobin A1c Lactic Acid Calcium Phosphorus Magnesium Direct Bilirubin AST ALT Alkaline Phosphatase Lactate Dehydrogenase Total Protein Albumin Ur Specific [place] Urine Blood Urine WBC (Auto) Vancomycin Trough Crossmatch 02/09/22 02/09/22 02/10/22 21:16 23:13 03:40 WBC 17.2 H RBC Hgb 7.9 L Hct 25.3 L MCV 63 L MCH 20 L RDW 20.7 H Plt Count Seg Neuts % (Manual) Lymphocytes % (Manual) Nucleated RBC % Seg Neutrophils # Man Lymphocytes # (Manual) Percent Retic Fibrinogen ABG pH POC ABG pO2 ABG pO2 ABG HCO3 ABG O2 Saturation ABG Base Excess ABG Hemoglobin Oxyhemoglobin Carboxyhemoglobin Sodium Potassium Chloride Carbon Dioxide BUN Creatinine Glucose POC Glucose 186 H 276 H Hemoglobin A1c Lactic Acid Calcium Phosphorus Magnesium Direct Bilirubin AST ALT Alkaline Phosphatase Lactate Dehydrogenase Total Protein Albumin Ur Specific [place] Urine Blood Urine WBC (Auto) Vancomycin Trough Crossmatch 02/10/22 02/10/22 02/10/22 03:40 04:17 04:17 WBC RBC Hgb Hct MCV MCH RDW Plt Count Seg Neuts % (Manual) Lymphocytes % (Manual) Nucleated RBC % Seg Neutrophils # Man Lymphocytes # (Manual) Percent Retic Fibrinogen ABG pH 7.468 H POC ABG pO2 ABG pO2 124.2 H ABG HCO3 42.1 H ABG O2 Saturation ABG Base Excess 16.6 H ABG Hemoglobin 7.6 L Oxyhemoglobin Carboxyhemoglobin Sodium 149 H Potassium 3.2 L Chloride Carbon Dioxide 38 H BUN 26 H Creatinine 0.5 L Glucose 188 H POC Glucose 189 H Hemoglobin A1c Lactic Acid Calcium 8.3 L Phosphorus 2.10 L Magnesium Direct Bilirubin AST 120 H ALT 80 H Alkaline Phosphatase 207 H Lactate Dehydrogenase Total Protein 5.3 L Albumin 2.4 L Ur Specific [place] Urine Blood Urine WBC (Auto) Vancomycin Trough Crossmatch 02/10/22 02/10/22 02/10/22 11:46 16:27 21:15 WBC RBC Hgb Hct MCV MCH RDW Plt Count Seg Neuts % (Manual) Lymphocytes % (Manual) Nucleated RBC % Seg Neutrophils # Man Lymphocytes # (Manual) Percent Retic Fibrinogen ABG pH POC ABG pO2 ABG pO2 ABG HCO3 ABG O2 Saturation ABG Base Excess ABG Hemoglobin Oxyhemoglobin Carboxyhemoglobin Sodium Potassium Chloride Carbon Dioxide BUN Creatinine Glucose POC Glucose 189 H 198 H 261 H Hemoglobin A1c Lactic Acid Calcium Phosphorus Magnesium Direct Bilirubin AST ALT Alkaline Phosphatase Lactate Dehydrogenase Total Protein Albumin Ur Specific [place] Urine Blood Urine WBC (Auto) Vancomycin Trough Crossmatch 02/10/22 02/11/22 02/11/22 23:20 04:00 04:00 WBC 20.8 H RBC Hgb 7.7 L Hct 24.5 L MCV 64 L MCH 20 L RDW 23.5 H Plt Count Seg Neuts % (Manual) Lymphocytes % (Manual) Nucleated RBC % Seg Neutrophils # Man Lymphocytes # (Manual) Percent Retic Fibrinogen ABG pH POC ABG pO2 ABG pO2 ABG HCO3 ABG O2 Saturation ABG Base Excess ABG Hemoglobin Oxyhemoglobin Carboxyhemoglobin Sodium 148 H Potassium 3.3 L Chloride Carbon Dioxide 39 H BUN 27 H Creatinine 0.5 L Glucose 218 H POC Glucose 196 H Hemoglobin A1c Lactic Acid Calcium 8.3 L Phosphorus Magnesium Direct Bilirubin AST ALT Alkaline Phosphatase Lactate Dehydrogenase Total Protein Albumin Ur Specific [place] Urine Blood Urine WBC (Auto) Vancomycin Trough Crossmatch 02/11/22 02/11/22 02/11/22 05:00 05:57 11:15 WBC RBC Hgb Hct MCV MCH RDW Plt Count Seg Neuts % (Manual) Lymphocytes % (Manual) Nucleated RBC % Seg Neutrophils # Man Lymphocytes # (Manual) Percent Retic Fibrinogen ABG pH 7.459 H POC ABG pO2 ABG pO2 99.8 H ABG HCO3 41.4 H ABG O2 Saturation ABG Base Excess 15.9 H ABG Hemoglobin 7.5 L Oxyhemoglobin Carboxyhemoglobin Sodium Potassium Chloride Carbon Dioxide BUN Creatinine Glucose POC Glucose 173 H 204 H Hemoglobin A1c Lactic Acid Calcium Phosphorus Magnesium Direct Bilirubin AST ALT Alkaline Phosphatase Lactate Dehydrogenase Total Protein Albumin Ur Specific [place] Urine Blood Urine WBC (Auto) Vancomycin Trough Crossmatch 02/11/22 02/11/22 02/12/22 17:15 21:21 00:29 WBC RBC Hgb Hct MCV MCH RDW Plt Count Seg Neuts % (Manual) Lymphocytes % (Manual) Nucleated RBC % Seg Neutrophils # Man Lymphocytes # (Manual) Percent Retic Fibrinogen ABG pH POC ABG pO2 ABG pO2 ABG HCO3 ABG O2 Saturation ABG Base Excess ABG Hemoglobin Oxyhemoglobin Carboxyhemoglobin Sodium Potassium Chloride Carbon Dioxide BUN Creatinine Glucose POC Glucose 157 H 183 H 197 H Hemoglobin A1c Lactic Acid Calcium Phosphorus Magnesium Direct Bilirubin AST ALT Alkaline Phosphatase Lactate Dehydrogenase Total Protein Albumin Ur Specific [place] Urine Blood Urine WBC (Auto) Vancomycin Trough Crossmatch 02/12/22 02/12/22 02/12/22 04:17 04:17 05:00 WBC 23.9 H RBC Hgb 7.5 L Hct 24.2 L MCV 64 L MCH 20 L RDW 25.5 H Plt Count Seg Neuts % (Manual) Lymphocytes % (Manual) Nucleated RBC % Seg Neutrophils # Man Lymphocytes # (Manual) Percent Retic Fibrinogen ABG pH 7.467 H POC ABG pO2 ABG pO2 97.9 H ABG HCO3 40.7 H ABG O2 Saturation ABG Base Excess 15.3 H ABG Hemoglobin 7.5 L Oxyhemoglobin Carboxyhemoglobin Sodium 146 H Potassium Chloride Carbon Dioxide 39 H BUN 25 H Creatinine 0.4 L Glucose 135 H POC Glucose Hemoglobin A1c Lactic Acid Calcium Phosphorus Magnesium Direct Bilirubin AST ALT Alkaline Phosphatase Lactate Dehydrogenase Total Protein Albumin Ur Specific [place] Urine Blood Urine WBC (Auto) Vancomycin Trough Crossmatch 02/12/22 02/12/22 02/12/22 05:53 12:31 17:54 WBC RBC Hgb Hct MCV MCH RDW Plt Count Seg Neuts % (Manual) Lymphocytes % (Manual) Nucleated RBC % Seg Neutrophils # Man Lymphocytes # (Manual) Percent Retic Fibrinogen ABG pH POC ABG pO2 ABG pO2 ABG HCO3 ABG O2 Saturation ABG Base Excess ABG Hemoglobin Oxyhemoglobin Carboxyhemoglobin Sodium Potassium Chloride Carbon Dioxide BUN Creatinine Glucose POC Glucose 114 H 124 H 159 H Hemoglobin A1c Lactic Acid Calcium Phosphorus Magnesium Direct Bilirubin AST ALT Alkaline Phosphatase Lactate Dehydrogenase Total Protein Albumin Ur Specific [place] Urine Blood Urine WBC (Auto) Vancomycin Trough Crossmatch 02/12/22 22:09 WBC RBC Hgb Hct MCV MCH RDW Plt Count Seg Neuts % (Manual) Lymphocytes % (Manual) Nucleated RBC % Seg Neutrophils # Man Lymphocytes # (Manual) Percent Retic Fibrinogen ABG pH POC ABG pO2 ABG pO2 ABG HCO3 ABG O2 Saturation ABG Base Excess ABG Hemoglobin Oxyhemoglobin Carboxyhemoglobin Sodium Potassium Chloride Carbon Dioxide BUN Creatinine Glucose POC Glucose 160 H Hemoglobin A1c Lactic Acid Calcium Phosphorus Magnesium Direct Bilirubin AST ALT Alkaline Phosphatase Lactate Dehydrogenase Total Protein Albumin Ur Specific [place] Urine Blood Urine WBC (Auto) Vancomycin Trough Crossmatch
--- NOTE | 2022-02-13 01:51 | XRay Report ---
XR chest 1V ap INDICATION / CLINICAL INFORMATION: follow up respiratory failure. COMPARISON: Radiograph from yesterday. FINDINGS: SUPPORT DEVICES: Unchanged. HEART /PULMONARY VASCULATURE: Unchanged. LUNGS / PLEURA: No significant change in bilateral pulmonary opacities. No pneumothorax. IMPRESSION: 1. No significant interval change. Signer Name: Kian Diaz MD Signed: 02/13/2022 1:47 AM Workstation Name: [id number]
[2022-02-13] MEDS: FREE WATER PO SCH ×6 (02:00→22:11)
[2022-02-13 03:59] LABS: ABG Base Excess 14.3 mmol/L (-2.0-3.0); ABG HCO3 39.4 mmol/L (20.0-26.0); ABG Methemoglobin 0.6 % (0.0-1.5); ABG Oxygen Saturation 97.7 % (95.0-99.0); ABG PH 7.465 pH Units (7.350-7.450); ABG PO2 104.3 mm Hg (80.0-90.0)
[2022-02-13] MEDS: HYDROCORTISONE SOD SUCC 100 MG/2 ML VIAL IV SCH ×2 (04:59→15:28)
[2022-02-13 05:03] LABS: Hematocrit 21.7 % (30.3-42.9); Hemoglobin 6.7 gm/dl (10.1-14.3); Mean Corpuscular HGB Conc 31 % (30-34); Platelet Count 378 K/mm3 (140-440); Red Blood Count 3.42 M/mm3 (3.65-5.03)
[2022-02-13 05:15] LABS: Mean Corpuscular Volume 64 fl (79-97); Red Cell Distribution Width 27.3 % (13.2-15.2)
[2022-02-13 05:21] LABS: Alanine Aminotransferase 58 units/L (7-56); Albumin 2.2 g/dL (3.9-5); Blood Urea Nitrogen 25 mg/dL (7-17); Hemolysis Index 3
[2022-02-13 05:23] LABS: BUN/Creatinine Ratio 63; Bilirubin,Direct < 0.2 mg/dL (0-0.2)
[2022-02-13] MEDS: NITROGLYCERIN 2% OINT 1 GM TP SCH ×2 (06:00→15:28)
[2022-02-13] MEDS: fentaNYL DRIP Premix 2,000 MCG/100 ML BAG IV SCH (07:48)
[2022-02-13] MEDS ORDERED: SODIUM CHLORIDE 0.9% 500 ML 500 ML IV NR (08:04)
[2022-02-13] MEDS: FAMOTIDINE 20 MG TAB FEEDTUBE SCH ×2 (09:54→22:10)
[2022-02-13] MEDS: QUEtiapine 25 MG TAB PO SCH ×2 (09:54→22:10)
--- NOTE | 2022-02-13 10:38 | Electrocardiograph Report ---
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
--- NOTE | 2022-02-13 10:52 | Progress Note ---
Assessment and Plan Cultures: 01/31/2022 blood culture: No growth 02/01/2022 tracheal aspirate culture: Klebsiella pneumoniae COVID-19 PCR: Negative 02/04/2022 blood culture: no growth so far 02/04/2022 urine culture: No growth 02/04/2022 fungal blood culture: no growth so far A/P: 61-year-old female was admitted from [facility] with hypoglycemia: #Refractory septic shock, severe acidosis, s/p PEA arrest on 02/01/2022. #Bilateral pneumonia: Probably aspiration following PEA arrest. Initial chest x-ray did not show any pneumonia. Now with severe b/l pneumonia, treated with abx. #Possible UTI: UA showed pyuria #Acute hypoxic respiratory failure with ARDS: On mechanical ventilation. Improving #Diabetic ketoacidosis on admission #Pancytopenia, neutropenia, thrombocytopenia: ?sepsis. Seen by hematology. HIV negative. Gradually improving. Recs: -completed ceftriaxone -leucocytosis is likely from steroids, and some from ischemic toes, monitor Doroteo Morales MD, FACP, [facility] ([facility] O: [phone] F: [phone] C: [phone] Subjective Date of service: 02/13/22 Principal diagnosis: DKA, s/p cardiopulmonary arrest Interval history: Afebrile. Remains on the vent, stable. Opens eyes when called. Objective - Exam Narrative Exam: Physical Exam: Constitutional: sedated, intubated, on the vent Head, Ears, Nose: Normocephalic, atraumatic. External ears, nose normal Eyes: Conjunctivae/corneas clear. No icterus. No ptosis. Neck: intubated Oral: intubated Cardiovascular: S1, S2 + Respiratory: AE fair bilaterally and equal GI: Soft, bowel sounds + Musculoskeletal: No pedal edema. Ischemic toes Skin: No rash or abscess Hem/Lymphatic: No palpable cervical or supraclavicular nodes. No lymphangitis Psych: no agitation Neurological: sedated, intubated, on the vent, exam limited. Does seem to open eyes when called - Constitutional Vitals: Vital Signs Temp Pulse Resp BP Pulse Ox 98.4 F 109 H 22 100/71 98 02/13/22 08:00 02/13/22 10:00 02/13/22 10:00 02/13/22 10:00 02/13/22 09:25 Temperature -Last 24 Hours Temperature 98.4 F Temperature 98.6 F Temperature 98.6 F Temperature 98.6 F Temperature 98.5 F Temperature 98.4 F - Labs CBC & Chem 7: 02/13/22 04:00 02/13/22 04:00 Labs: Abnormal lab results 02/12/22 02/12/22 02/12/22 Range/Units 12:31 17:54 22:09 WBC (4.5-11.0) K/mm3 RBC (3.65-5.03) M/mm3 Hgb (10.1-14.3) gm/dl Hct (30.3-42.9) % MCV (79-97) fl MCH (28-32) pg RDW (13.2-15.2) % ABG pH (7.350-7.450) pH Units ABG pO2 (80.0-90.0) mm Hg ABG HCO3 (20.0-26.0) mmol/L ABG Base Excess (-2.0-3.0) mmol/L ABG Hemoglobin (12.0-16.0) gm/dl Sodium (137-145) mmol/L Carbon Dioxide (22-30) mmol/L BUN (7-17) mg/dL Creatinine (0.6-1.2) mg/dL Glucose (65-100) mg/dL POC Glucose 124 H 159 H 160 H (70-105) mg/dL Calcium (8.4-10.2) mg/dL ALT (7-56) units/L Alkaline Phosphatase (35-129) units/L Total Protein (6.3-8.2) g/dL Albumin (3.9-5) g/dL Crossmatch 02/13/22 02/13/22 02/13/22 Range/Units 03:40 04:00 04:00 WBC 23.6 H (4.5-11.0) K/mm3 RBC 3.42 L (3.65-5.03) M/mm3 Hgb 6.7 L (10.1-14.3) gm/dl Hct 21.7 L (30.3-42.9) % MCV 64 L (79-97) fl MCH 20 L (28-32) pg RDW 27.3 H (13.2-15.2) % ABG pH 7.465 H (7.350-7.450) pH Units ABG pO2 104.3 H (80.0-90.0) mm Hg ABG HCO3 39.4 H (20.0-26.0) mmol/L ABG Base Excess 14.3 H (-2.0-3.0) mmol/L ABG Hemoglobin 6.7 L (12.0-16.0) gm/dl Sodium 146 H (137-145) mmol/L Carbon Dioxide 38 H (22-30) mmol/L BUN 25 H (7-17) mg/dL Creatinine 0.4 L (0.6-1.2) mg/dL Glucose 235 H (65-100) mg/dL POC Glucose (70-105) mg/dL Calcium 8.0 L (8.4-10.2) mg/dL ALT 58 H (7-56) units/L Alkaline Phosphatase 143 H (35-129) units/L Total Protein 4.7 L (6.3-8.2) g/dL Albumin 2.2 L (3.9-5) g/dL Crossmatch 02/13/22 Range/Units 09:41 WBC (4.5-11.0) K/mm3 RBC (3.65-5.03) M/mm3 Hgb (10.1-14.3) gm/dl Hct (30.3-42.9) % MCV (79-97) fl MCH (28-32) pg RDW (13.2-15.2) % ABG pH (7.350-7.450) pH Units ABG pO2 (80.0-90.0) mm Hg ABG HCO3 (20.0-26.0) mmol/L ABG Base Excess (-2.0-3.0) mmol/L ABG Hemoglobin (12.0-16.0) gm/dl Sodium (137-145) mmol/L Carbon Dioxide (22-30) mmol/L BUN (7-17) mg/dL Creatinine (0.6-1.2) mg/dL Glucose (65-100) mg/dL POC Glucose (70-105) mg/dL Calcium (8.4-10.2) mg/dL ALT (7-56) units/L Alkaline Phosphatase (35-129) units/L Total Protein (6.3-8.2) g/dL Albumin (3.9-5) g/dL Crossmatch See Detail
--- NOTE | 2022-02-13 11:07 | Consultation ---
History of Present Illness - Reason for Consult Consult date: 02/13/22 Bilateral PVD Requesting physician: RADHA GONZALEZ - History of Present Illness The patient is a 61-year-old female who was transferred to [facility] from [facility] with mental status changes. She was eventually found to be in diabetic ketoacidosis and admitted to the ICU. Her hospital course has been complicated by PEA arrest which required intubation and several days on pressor support. She suffered for an SVT requiring amiodarone. At this point she remains intubated and sedated and unable to provide any information. We were consulted secondary to Past History Past Medical History: diabetes, hypertension, hyperlipidemia, other (dementia) Past Surgical History: Other (unable to obtain) Social history: other (unable to obtain) Family history: other (unable to obtain) Medications and Allergies Allergies Allergy/AdvReac Type Severity Reaction Status Date / Time No Known Allergies Allergy Verified 01/31/22 17:55 Home Medications Medication Instructions Recorded Confirmed Last Taken Type Ergocalciferol [Vitamin D2] 1 cap PO QWEEK 02/02/22 02/02/22 Unknown History Famotidine [Pepcid] 20 mg PO DAILY 02/02/22 02/02/22 Unknown History Insulin Glargine [Lantus VIAL] 5 unit SUB-Q BID 02/02/22 02/02/22 Unknown History Loratadine [Claritin] 10 mg PO DAILY 02/02/22 02/02/22 Unknown History Mirtazapine [Remeron] 15 mg PO HS 02/02/22 02/02/22 Unknown History Rosuvastatin Calcium [Crestor] 10 mg PO HS 02/02/22 02/02/22 Unknown History carvediloL [Coreg] 3.125 mg PO BID 02/02/22 02/02/22 Unknown History Active Meds: Active Medications Acetaminophen (Acetaminophen 325 Mg Tab) 650 mg PO Q4H PRN PRN Reason: Pain MILD(1-3)/Fever >100.5/ROSADO Last Admin: 02/04/22 11:58 Dose: 650 mg Albuterol (Albuterol 2.5 Mg/3 Ml Nebu) 2.5 mg IH Q3HRT PRN PRN Reason: Shortness Of Breath Lipase/Protease/Amylase (Lipase 10,500/Protease 25,000/Amylase 43,750 (Units) Dr Avelar) 1 each FEEDTUBE PRN PRN PRN Reason: For Clogged Feeding Tube Atorvastatin Calcium (Atorvastatin 20 Mg Tab) 20 mg FEEDTUBE QHS JAMIL Last Admin: 02/12/22 22:08 Dose: 20 mg Dextrose (Dextrose 50% In Water (25gm) 50 Ml Syringe) 50 ml IV Q30MIN PRN; Protocol PRN Reason: Hypoglycemia Last Admin: 02/05/22 11:52 Dose: 25 ml Famotidine (Famotidine 20 Mg Tab) 20 mg FEEDTUBE BID JAMIL Last Admin: 02/13/22 09:54 Dose: 20 mg Fentanyl (Fentanyl 100 Mcg/2 Ml Inj) 50 mcg IV Q10MIN PRN PRN Reason: ANALGESIA Last Admin: 02/12/22 20:00 Dose: 50 mcg Fentanyl (Fentanyl 100 Mcg/2 Ml Inj) 50 mcg IV Q2H PRN PRN Reason: VENT SYNCHRONY/AGITATION Last Admin: 02/12/22 17:35 Dose: 50 mcg Hydrocortisone Sodium Succinate (Hydrocortisone Sod Succ 100 Mg/2 Ml Vial) 50 mg IV Q12H JAMIL Hydrophilic Ointment (Lip Therapy Vaseline) 1 applic TP Q2HR PRN PRN Reason: Dry Lips NORepinephrine/NS 8 MG-250 ML (Norepinephrine/Ns 8 Mg-250 Ml (Double Conc)) 8 mg in 250 mls @ 3.75 mls/hr IV TITRATE JAMIL; Protocol Last Titration: 02/07/22 19:18 Dose: 0 mcg/min, 0 mls/hr Propofol (Diprivan 10 Mg/Ml) 1,000 mg in 100 mls @ 1.429 mls/hr IV TITR JAMIL; Protocol Last Titration: 02/08/22 16:30 Dose: 0 mcg/kg/min, 0 mls/hr Fentanyl Citrate (Fentanyl Drip Premix) 2,000 mcg in 100 mls @ 2.381 mls/hr IV TITR JAMIL; Protocol Last Titration: 02/13/22 09:53 Dose: 0 mcg/kg/hr, 0 mls/hr Phenylephrine HCl 100 mg/ (Sodium Chloride) 100 mls @ 3 mls/hr IV TITR JAMIL; Protocol Last Titration: 02/07/22 19:18 Dose: 0 mcg/min, 0 mls/hr Sodium Chloride (Nacl 0.9% 500 Ml) 500 mls @ 5 mls/hr IV DIRECT JAMIL Last Admin: 02/08/22 05:21 Dose: 5 mls/hr Vasopressin 20 unit/ Sodium (Chloride) 101 mls @ 9.09 mls/hr IV TITR [facility]; Protocol Last Titration: 02/07/22 19:18 Dose: 0 units/min, 0 mls/hr Sodium Chloride (Nacl 0.9% 500 Ml) 500 mls @ 0 mls/hr IV ONCE NR Stop: 02/13/22 23:59 Insulin Glargine (Insulin Glargine 100 Units/Ml) 20 units SUB-Q QHS [facility] Last Admin: 02/12/22 22:15 Dose: 20 units Insulin Human Regular (Insulin Regular, Human 100 Units/1 Ml) 0 units SUB-Q Q6H [facility]; Protocol Last Admin: 02/13/22 06:06 Dose: 6 units Multi-Ingred Cream/Lotion/Oil/Oint (Mineral Oil/Petrolatum, White Ophth Oint 3.5 Gm) 1 applic OU Q4HR PRN PRN Reason: Dry Eye(s) Nitroglycerin (Nitroglycerin 2% Oint 1 Gm) 0.5 inch TP BIDNTG [facility]; Protocol Last Admin: 02/13/22 06:00 Dose: 0.5 inch Ondansetron HCl (Ondansetron 4 Mg/2 Ml Inj) 4 mg IV Q8H PRN PRN Reason: Nausea And Vomiting Quetiapine Fumarate (Quetiapine 25 Mg Tab) 50 mg PO BID [facility] Last Admin: 02/13/22 09:54 Dose: 50 mg Senna/Docusate Sodium (Sennosides/Docusate Sodium 8.6/50 Mg Tab) 2 tab PO Q12H [facility] Last Admin: 02/12/22 22:16 Dose: Not Given Simple Syrup (Simple Syrup 15 Ml) 15 ml FEEDTUBE PRN PRN PRN Reason: Hypoglycemia Simple Syrup (Simple Syrup 15 Ml) 30 ml FEEDTUBE PRN PRN PRN Reason: Hypoglycemia Sodium Bicarbonate (Sodium Bicarbonate 325 Mg Tab) 325 mg FEEDTUBE PRN PRN PRN Reason: For Clogged Feeding Tube Sodium Chloride (Sodium Chloride 0.9% 10 Ml Flush Syringe) 10 ml IV BID [facility] Last Admin: 02/12/22 22:16 Dose: 10 ml Sodium Chloride (Sodium Chloride 0.9% 10 Ml Flush Syringe) 10 ml IV PRN PRN PRN Reason: LINE FLUSH Last Admin: 02/09/22 05:59 Dose: 10 ml Review of Systems ROS unobtainable: due to endotracheal tube Exam - Constitutional Vitals: Temp Pulse Resp BP Pulse Ox 98.4 F 109 H 22 100/71 98 02/13/22 08:00 02/13/22 10:00 02/13/22 10:00 02/13/22 10:00 02/13/22 09:25 General appearance: Present: other (sedated on ventillator) - Cardiovascular Rhythm: other (regular with tachycardia) - Extremities Extremity abnormal: cyanosis (mild cyanotic changes to left forefoot), pulses di minished (nonpalpable pedal pulses) - Abdominal General gastrointestinal: Present: soft Female genitourinary: Present: deferred - Rectal Rectal Exam: deferred Results - Labs CBC & Chem 7: 02/13/22 04:00 02/13/22 04:00 Labs: Abnormal lab results 02/12/22 02/12/22 02/12/22 Range/Units 12:31 17:54 22:09 WBC (4.5-11.0) K/mm3 RBC (3.65-5.03) M/mm3 Hgb (10.1-14.3) gm/dl Hct (30.3-42.9) % MCV (79-97) fl MCH (28-32) pg RDW (13.2-15.2) % ABG pH (7.350-7.450) pH Units ABG pO2 (80.0-90.0) mm Hg ABG HCO3 (20.0-26.0) mmol/L ABG Base Excess (-2.0-3.0) mmol/L ABG Hemoglobin (12.0-16.0) gm/dl Sodium (137-145) mmol/L Carbon Dioxide (22-30) mmol/L BUN (7-17) mg/dL Creatinine (0.6-1.2) mg/dL Glucose (65-100) mg/dL POC Glucose 124 H 159 H 160 H (70-105) mg/dL Calcium (8.4-10.2) mg/dL ALT (7-56) units/L Alkaline Phosphatase (35-129) units/L Total Protein (6.3-8.2) g/dL Albumin (3.9-5) g/dL Crossmatch 02/13/22 02/13/22 02/13/22 Range/Units 03:40 04:00 04:00 WBC 23.6 H (4.5-11.0) K/mm3 RBC 3.42 L (3.65-5.03) M/mm3 Hgb 6.7 L (10.1-14.3) gm/dl Hct 21.7 L (30.3-42.9) % MCV 64 L (79-97) fl MCH 20 L (28-32) pg RDW 27.3 H (13.2-15.2) % ABG pH 7.465 H (7.350-7.450) pH Units ABG pO2 104.3 H (80.0-90.0) mm Hg ABG HCO3 39.4 H (20.0-26.0) mmol/L ABG Base Excess 14.3 H (-2.0-3.0) mmol/L ABG Hemoglobin 6.7 L (12.0-16.0) gm/dl Sodium 146 H (137-145) mmol/L Carbon Dioxide 38 H (22-30) mmol/L BUN 25 H (7-17) mg/dL Creatinine 0.4 L (0.6-1.2) mg/dL Glucose 235 H (65-100) mg/dL POC Glucose (70-105) mg/dL Calcium 8.0 L (8.4-10.2) mg/dL ALT 58 H (7-56) units/L Alkaline Phosphatase 143 H (35-129) units/L Total Protein 4.7 L (6.3-8.2) g/dL Albumin 2.2 L (3.9-5) g/dL Crossmatch 02/13/22 Range/Units 09:41 WBC (4.5-11.0) K/mm3 RBC (3.65-5.03) M/mm3 Hgb (10.1-14.3) gm/dl Hct (30.3-42.9) % MCV (79-97) fl MCH (28-32) pg RDW (13.2-15.2) % ABG pH (7.350-7.450) pH Units ABG pO2 (80.0-90.0) mm Hg ABG HCO3 (20.0-26.0) mmol/L ABG Base Excess (-2.0-3.0) mmol/L ABG Hemoglobin (12.0-16.0) gm/dl Sodium (137-145) mmol/L Carbon Dioxide (22-30) mmol/L BUN (7-17) mg/dL Creatinine (0.6-1.2) mg/dL Glucose (65-100) mg/dL POC Glucose (70-105) mg/dL Calcium (8.4-10.2) mg/dL ALT (7-56) units/L Alkaline Phosphatase (35-129) units/L Total Protein (6.3-8.2) g/dL Albumin (3.9-5) g/dL Crossmatch See Detail - Imaging and Cardiology Venous US: other (arteral duplex of lower extremities films reviewed) Assessment and Plan The patient is a 61-year-old female admitted with DKA who remains intubated and on the ventilator at this time. She had a recent arterial duplex that demonstrated multiphasic flow throughout the femoral-popliteal segments however she does have evidence of tibial disease. She has some cyanotic changes on her left foot which are likely secondary to previous pressure support however she has no ulcerations noted at this time. The patient does have evidence of peripheral vascular disease however there is no urgency to any intervention as she has no ulcerations at this time. Would recommend adding antiplatelet therapy with Plavix 75 mg p.o. daily. We will consider angiogram with intervention however this would be based off of the patient's complaints that she has no ulcers or any other reason to perform urgent intervention.
[2022-02-13] MEDS: SENNOSIDES/DOCUSATE SODIUM 8.6/50 MG TAB PO SCH ×2 (11:11→22:11)
--- NOTE | 2022-02-13 14:55 | Progress Note ---
<RADHA GONZALEZ - Last Filed: 02/13/22 14:51> Assessment and Plan Assessment and plan: This is a 61 year old female with DM, Dementia, HLD, HTN admitted with DKA s/p cardiac arrest on 02/01 Neuro: Acute metabolic encephalopathy, h/o dementia -Neurology consulted, appreciate recommendations -Serouqel bid -Fentanyl gtt -RASS goal 0 to -1 -Reorientation as needed -As needed analgesia Cardiac: s/p PEA cardiac arrest on 02/01, SVT, h/o HLD and HTN -Cardiology consulted, appreciate recommendations -s/p cardiac arrest on 02/01 -Blood pressure monitoring per protocol -s/p Vasopressor support with Levophed -MAP goal greater than 65 -Echocardiogram LVEF 55 to 60% Respiratory: Acute hypoxic respiratory failure, ARDS -[facility] consulted, appreciate recommendations -Intubated on 02/01 with 7.0 OETT at 21 at the [facility] -A.m. vent settings: PSV 14/6 -switched to AC - 8/1 s/p Bronchoscopy at the bedside by [facility] -A.m. ABG and CXR noted -VAP bundle -SPO2 monitoring GI: Mod protein venu malnutrition, transaminitis (resolving) -24 hours + 1481mL -PPI -NTR consulted for tube feedings -BR: Senokot S : Hypernatremia -FWF 300 q4 -Monitor intake and output -Renally dose medications -Avoid nephrotoxic medications -s/p bicarbonate drip -Repleat potassium -Trend BMP ID: Sepsis, UTI, lactic acidosis -Presented with tachycardia, leukocytosis, pyuria on UA developed pancytopenia, hypotension, tachycardia -Infectious disease consulted, appreciate recommendations -s/p antibiotic therapy with rocephin -UA consistent with pyuria, Blood cultures with NGTD -Sputum culture with Klebsiella Pneumoniae -covid pcr (-) -f/u blood culture -Monitor WBC and temperature curve Endo: s/p DKA, h/o DM -Presented with severe metabolic acidosis, blood glucose in 300s -s/p insulin drip -Avoid hypoglycemia -Hemoglobin A1c 11.1 -SSI -Accu-Cheks q. every 6 -Long-acting insulin, titrate as needed Heme: Anemia, BLE ischemia -Hem/onc and vascular surgery consulted, appreciate recommendations -Bilateral lower extremity ultrasound negative for DVT -Bilateral lower extremity arterial duplex shows multifocal arthrosclerotic disease throughout bilateral lower extremities, transition into biphasic and monophasic waveforms bilaterally suggesting hemodynamically significant narrowing of each respective segment, no arterial occlusion or other proximal flow limiting stenosis -Recommend Plavix but will dealy in setting of anemia -Trend CBC -s/p 1 unit PRBC -h/h 6.7/21.7 -1 unit prbc today -Transfuse hemoglobin less than 7 -SCDs to BLE while in bed The high probability of a clinically significant, sudden or life threatening deterioration of the [multi] system(s) required my full and direct attention, intervention and personal management. The aggregate critical care time was [60] minutes. This time is in addition to time spent performing reported procedures but includes the following: [x] Data Review and interpretation [x] Patient assessment and monitoring of vital signs [x] Documentation [x] Medication orders and management Disposition Plan: icu Total Time Spent with Patient (Minutes): 60 History Interval history: This is a 61-year-old female is a resident of a fpc with DM,, dementia (possibly Wernickes per daughter), hyperlipidemia, and hypertension who presents to the hospital on 01/31 from [facility] for hypoglycemia. In the ED patient was found to be tachycardic, tachypneic and lab work showed hyper kalemia, hyperchloremia, high anion gap metabolic acidosis with leukocytosis and UA showed pyuria. Patient was admitted to the hospitalist service. Hospital course to date: 02/01: patient was transferred to ICU as lab work was consistent with DKA and started on insulin drip. Central line placed for IV access. Patient was given bicarb push and started on a bicarb drip. She was also started on Rocephin due to UTI however antibiotics are broadened to cefepime and vancomycin. 02/02: s/p cardiac arrest on 02/01. Bicarbonate drip discontinued. Pancytopenia noted, anion gap closed and transitioned to SSI and long-acting insulin. Patient was having hypoglycemia this morning which has been corrected now. Started on tube feeding. Potassium and phosphorus will be repleted. Hypernatremia noted and FWF started with tube feedings. COVID-19 PCR pending. Venous Doppler ultrasound pending. Neurology and cardiology consulted. Echocardiogram pending. Patient currently on Levophed and sedated with propofol. Fentanyl added. Given 1 LR bolus this morning for hypotension. 02/03: LR bolus x2, remains on levophed, tachycardia and EKG completed which shows tachycardia. Increase in FiO2, Will culture with next temp spike. Will give 1 gm Calcium Gluconate. 02/04: S/p Bronch this am by CCM at the bedside. Patient still spiking high temp despite broad spectrum IV Abx. Remains on high pressors with worsen neutropenia and thrombocytopenia. Will panculture this am, antifungal culture was also ordered. Continue current empiric IV Abx for now, awaiting sensitivity. Will also consult ID for further eval. Possible Hematology consult for pancytopenia per CCM. Possible family meeting with [facility] this week, case management to arrange. 02/05: Back up on full support on the vent. CXR with worsen bilateral opacities, S/p X1 dose of IV lasix. Patient also received 1units of PRBCs overnight due to anemia, H&H stable this am and no s/s of any active bleeding. Patient remains pancytopenic, still febrile. IV abx changed to Merrem and Vanc per ID, hematology consult pending. ST with episodes of SVT this am, plan for amiodarone gtt per Cardio. Off pressors this am. BP remains boderline, 25% IV Albumin and X1 dose of additional IV lasix gain today per CCM. Continue FWF for hypernatremia. Lantus adjusted due to hypoglycemia. Possible family meeting tomorrow with [facility]. 02/06: Decompensated this am, sudden drop in SPO2 in the 80s, HR in the 50s, and MAP in the 40s. Back on 2 pressors, on 100% FIO2 and 12 of peep. Stat ABG pending, 1amp Bcarb given, stress dose steroids initiated. This an CXR reviewed with worsen opacities from prior. Patient remains on IV abx per ID. Hematology recommendations appreciated. Event discussed with [facility] who agreed with current intervention. Patient's daughter and sister were notified via phone. Current events, patient's diagnosis, overal condition, and poor prognosis were thoroughly discussed. GOC was also addressed with patient's daughter and sister, they voiced that if patient was able to speak for herself she would want all lifesaving measures, including CPR and medications if her heart stop. All questions and concerns were addressed at this time. They verbalized understanding and agreed with current care plan. Patient remains a FULL code status at This time. 84: Responded well to IV lasix and albumin overnight. CXR with some improvement today. IV lasix and albumin gain today per [facility]. With increased WOB and tachpnea this am, low dose propofol added for RASS goal of 0 to -2. Wean FIO2 as tolerated for SPO2 goal above 92%. Worsen hyperglycemia this am, most like due to IV steroids, insulin therapy adjusted. Monitor and replace electrolytes as needed. Family meeting today with [facility], patient remains a FULL code status. 8: Tolerating gentle diurese. Patient missed overnight IV lasix/albumin dose, will repeat another dose this morning. Continue to wean Fio2 as tolerated. Remains off pressors, VSS. Concern for BLE ischemia probably due to hypoperfusion vs pressor use. Will check BLE arterial doppler to r/o occlusion. Possible Vascular Surgery consult dependent on doppler result. Lantus adjusted for persisting hyperglycemia. Electrolytes repleted, monitor and replace electrolytes as needed. 86: This am ABG and CXR with some improvement this am. Down to 55% Fio2 this am. Hypotensive overnight required short duration of Levophed gtt, pressor is off this am. Will hold on IV diuretic today. Continue to monitor for now. Electrolytes repleted, monitor and replace electrolytes as needed. Prior history of psych issues, seroquel added BID. BLE doppler pending. 02/10: Remains stable on the vent. Down to 40% Fio2 and peep of 10 this am, SPO2 above 95%, CXR is unchanged. Continue vent wean as tolerated. Remains on IV steroid, will start tapering tomorrow. Per [facility], plan is to optimize patient on the vent for possible trach and PEG. FWF increased for persistent hypernatremia. K and phos repleted. Continue to monitor and replace electrolytes as needed. 02/11: Water flush continued at 300 mL every 4, potassium repleted, remains on vasopressors. No acute events reported overnight. intiate seriod taper 02/12: Patient being weaned down IV fentanyl pushes ordered, Lantus decreased, decreased PEEP and RT placed on pressure support this afternoon. No acute events overnight. 02/13: Patient attempted on PSV again today, steroids continue to be tapered. Tentative extubation tomorrow was supplanted by [facility]. Patient only lasted 3 hours again today. Vascular surgery consult completed and recommended plavix. Hospitalist Physical - Constitutional Vitals: Temp Pulse Resp BP Pulse Ox 98.2 F 102 H 26 H 118/68 99 02/13/22 11:30 02/13/22 12:58 02/13/22 11:30 02/13/22 12:58 02/13/22 12:58 General appearance: Present: other (sedated, intubated) - EENT Eyes: Present: PERRL, EOM intact ENT: dentition normal - Neck Neck: Present: normal ROM - Respiratory Respiratory effort: normal Respiratory: bilateral: CTA - Cardiovascular Rhythm: regular Heart Sounds: Present: S1 & S2. Absent: systolic murmur, diastolic murmur - Extremities Extremities: pulses intact Extremity abnormal: cold, pulses diminished, other (right foot discoloration) Peripheral Pulses: abnormal - Peripheral pulses posterial tibial Pulse Strength: 1+ (Doppler) dorsalis pedis Pulse Strength: 1+ (Doppler) - Abdominal General gastrointestinal: soft, non-tender, non-distended, normal bowel sounds - Integumentary Integumentary: Present: warm, dry - Psychiatric Psychiatric: other - Neurologic Neurologic: moves all extremities, other (intact cough/gag reflex, PERRL, focus to voice) - Allied Health Allied health notes reviewed: nursing, RT, social work HEART Score - HEART Score Troponin: Troponin T < 0.010 ng/mL (0.00-0.029) 02/03/22 16:15 Results - Labs CBC & Chem 7: 02/13/22 04:00 02/13/22 04:00 Labs: Laboratory Last Values WBC 23.6 K/mm3 (4.5-11.0) H 02/13/22 04:00 RBC 3.42 M/mm3 (3.65-5.03) L 02/13/22 04:00 Hgb 6.7 gm/dl (10.1-14.3) L 02/13/22 04:00 Hct 21.7 % (30.3-42.9) L 02/13/22 04:00 MCV 64 fl (79-97) L 02/13/22 04:00 MCH 20 pg (28-32) L 02/13/22 04:00 MCHC 31 % (30-34) 02/13/22 04:00 RDW 27.3 % (13.2-15.2) H 02/13/22 04:00 Plt Count 378 K/mm3 (140-440) 02/13/22 04:00 Lymph % (Auto) Light Fixture Servicer 02/02/22 04:00 Add Manual Diff Complete 02/03/22 04:00 Total Counted 50 02/03/22 04:00 Seg Neutrophils % Light Fixture Servicer 02/02/22 04:00 Seg Neuts % (Manual) 76.0 % (40.0-70.0) H 02/03/22 04:00 Band Neutrophils % 18.0 % 02/03/22 04:00 Lymphocytes % (Manual) 2.0 % (13.4-35.0) L 02/03/22 04:00 Reactive Lymphs % (Man) 0 % 02/03/22 04:00 Monocytes % (Manual) 4.0 % (0.0-7.3) 02/03/22 04:00 Eosinophils % (Manual) 0 % (0.0-4.3) 02/03/22 04:00 Basophils % (Manual) 0 % (0.0-1.8) 02/03/22 04:00 Metamyelocytes % 0 % 02/03/22 04:00 Myelocytes % 0 % 02/03/22 04:00 Promyelocytes % 0 % 02/03/22 04:00 Blast Cells % 0 % 02/03/22 04:00 Nucleated RBC % 4.0 % (0.0-0.9) H 02/03/22 04:00 Seg Neutrophils # Man 2.8 K/mm3 (1.8-7.7) 02/03/22 04:00 Band Neutrophils # 0.7 K/mm3 02/03/22 04:00 Lymphocytes # (Manual) 0.1 K/mm3 (1.2-5.4) L 02/03/22 04:00 Abs React Lymphs (Man) 0.0 K/mm3 02/03/22 04:00 Monocytes # (Manual) 0.1 K/mm3 (0.0-0.8) 02/03/22 04:00 Eosinophils # (Manual) 0.0 K/mm3 (0.0-0.4) 02/03/22 04:00 Basophils # (Manual) 0.0 K/mm3 (0.0-0.1) 02/03/22 04:00 Metamyelocytes # 0.0 K/mm3 02/03/22 04:00 Myelocytes # 0.0 K/mm3 02/03/22 04:00 Promyelocytes # 0.0 K/mm3 02/03/22 04:00 Blast Cells # 0.0 K/mm3 02/03/22 04:00 WBC Morphology Not Reportable 02/03/22 04:00 Hypersegmented Neuts Not Reportable 02/03/22 04:00 Hyposegmented Neuts Not Reportable 02/03/22 04:00 Hypogranular Neuts Not Reportable 02/03/22 04:00 Smudge Cells Not Reportable 02/03/22 04:00 Toxic Granulation Not Reportable 02/03/22 04:00 Toxic Vacuolation Not Reportable 02/03/22 04:00 Dohle Bodies Few 02/03/22 04:00 Pelger-Huet Anomaly Not Reportable 02/03/22 04:00 Sung Rods Not Reportable 02/03/22 04:00 Platelet Estimate Consistent w auto 02/03/22 04:00 Clumped Platelets Not Reportable 02/03/22 04:00 Plt Clumps, EDTA Not Reportable 02/03/22 04:00 Large Platelets Not Reportable 02/03/22 04:00 Giant Platelets Not Reportable 02/03/22 04:00 Platelet Satelliting Not Reportable 02/03/22 04:00 Plt Morphology Comment Not Reportable 02/03/22 04:00 RBC Morphology Not Reportable 02/03/22 04:00 Dimorphic RBCs Not Reportable 02/03/22 04:00 Polychromasia Not Reportable 02/03/22 04:00 Hypochromasia 3+ 02/03/22 04:00 Poikilocytosis 2+ 02/03/22 04:00 Anisocytosis 1+ 02/03/22 04:00 Microcytosis 2+ 02/03/22 04:00 Macrocytosis Not Reportable 02/03/22 04:00 Spherocytes Not Reportable 02/03/22 04:00 Pappenheimer Bodies Not Reportable 02/03/22 04:00 Sickle Cells Not Reportable 02/03/22 04:00 Target Cells 1+ 02/03/22 04:00 Tear Drop Cells Few 02/03/22 04:00 Ovalocytes Few 02/03/22 04:00 Helmet Cells Not Reportable 02/03/22 04:00 [place] Bodies Not Reportable 02/03/22 04:00 [place] Rings Not Reportable 02/03/22 04:00 Lesly Cells 1+ 02/03/22 04:00 Bite Cells Not Reportable 02/03/22 04:00 Crenated Cell Not Reportable 02/03/22 04:00 Elliptocytes Few 02/03/22 04:00 Acanthocytes (Spur) Not Reportable 02/03/22 04:00 Rouleaux Not Reportable 02/03/22 04:00 Hemoglobin C Crystals Not Reportable 02/03/22 04:00 Schistocytes Rare 02/03/22 04:00 Malaria parasites Not Reportable 02/03/22 04:00 Percent Retic 0.65 % (0.78-2.58) L 02/08/22 03:55 Sven Bodies Not Reportable 02/03/22 04:00 Hem Pathologist Commnt No 02/03/22 04:00 PT 14.8 Sec. (12.2-14.9) 02/05/22 08:48 INR 1.02 (0.87-1.13) 02/05/22 08:48 APTT 34.4 Sec. (24.2-36.6) 02/05/22 08:48 Fibrinogen 795 mg/dl (211-480) H 02/05/22 08:48 ABG pH 7.465 pH Units (7.350-7.450) H 02/13/22 03:40 POC ABG pCO2 37.3 mmHg (32.0-48.0) 02/02/22 04:49 ABG pCO2 56.0 mm Hg 02/13/22 03:40 POC ABG pO2 79.9 mmHg (83-108) L 02/02/22 04:49 ABG pO2 104.3 mm Hg (80.0-90.0) H 02/13/22 03:40 POC ABG HCO3 30.3 02/02/22 04:49 ABG HCO3 39.4 mmol/L (20.0-26.0) H 02/13/22 03:40 ABG O2 Saturation 97.7 % (95.0-99.0) 02/13/22 03:40 ABG O2 Content 9.2 (0.0-44) 02/13/22 03:40 POC ABG Base Excess 7.1 02/02/22 04:49 ABG Base Excess 14.3 mmol/L (-2.0-3.0) H 02/13/22 03:40 ABG Hemoglobin 6.7 gm/dl (12.0-16.0) L 02/13/22 03:40 ABG Oxyhemoglobin 96.0 (94-98) 02/02/22 04:49 ABG Carboxyhemoglobin 1.5 % (0.0-5.0) 02/13/22 03:40 ABG Methemoglobin 0.6 % (0.0-1.5) 02/13/22 03:40 ABG Sodium Not Reportable 02/02/22 04:49 ABG Potassium Not Reportable 02/02/22 04:49 ABG Chloride Not Reportable 02/02/22 04:49 ABG Glucose Not Reportable 02/02/22 04:49 Oxyhemoglobin 95.7 % (95.0-99.0) 02/13/22 03:40 Carboxyhemoglobin 0.2 (0.5-1.5) L 02/02/22 04:49 FiO2 40 % 02/13/22 03:40 FiO2 % 60.0 02/02/22 04:49 Sodium 146 mmol/L (137-145) H 02/13/22 04:00 Potassium 4.1 mmol/L (3.6-5.0) 02/13/22 04:00 Chloride 100.5 mmol/L (98-107) 02/13/22 04:00 Carbon Dioxide 38 mmol/L (22-30) H 02/13/22 04:00 Anion Gap 12 mmol/L 02/13/22 04:00 BUN 25 mg/dL (7-17) H 02/13/22 04:00 Creatinine 0.4 mg/dL (0.6-1.2) L 02/13/22 04:00 Estimated GFR > 60 ml/min 02/13/22 04:00 BUN/Creatinine Ratio 63 % 02/13/22 04:00 Glucose 235 mg/dL (65-100) H 02/13/22 04:00 POC Glucose 132 mg/dL (70-105) H 02/13/22 11:37 Hemoglobin A1c 11.1 % (4-6) H 02/01/22 12:54 Lactic Acid 2.50 mmol/L (0.7-2.0) H* 02/06/22 11:50 Calcium 8.0 mg/dL (8.4-10.2) L 02/13/22 04:00 Phosphorus 3.40 mg/dL (2.5-4.5) D 02/11/22 04:00 Magnesium 2.30 mg/dL (1.7-2.3) 02/11/22 04:00 Total Bilirubin 0.30 mg/dL (0.1-1.2) 02/13/22 04:00 Direct Bilirubin < 0.2 mg/dL (0-0.2) 02/13/22 04:00 Indirect Bilirubin 0.1 mg/dL 02/13/22 04:00 AST 30 units/L (5-40) 02/13/22 04:00 ALT 58 units/L (7-56) H 02/13/22 04:00 Alkaline Phosphatase 143 units/L (35-129) H 02/13/22 04:00 Lactate Dehydrogenase 879 units/L (91-180) H 02/05/22 04:40 Troponin T < 0.010 ng/mL (0.00-0.029) 02/03/22 16:15 Total Protein 4.7 g/dL (6.3-8.2) L 02/13/22 04:00 Albumin 2.2 g/dL (3.9-5) L 02/13/22 04:00 Albumin/Globulin Ratio 0.9 % 02/13/22 04:00 Arterial Blood Glucose Not Reportable 02/02/22 04:49 Urine Color Yellow (Yellow) 02/04/22 09:15 Urine Turbidity Cloudy (Clear) 02/04/22 09:15 Urine pH 6.0 (5.0-7.0) 02/04/22 09:15 Ur Specific [place] 1.025 (1.003-1.030) 02/04/22 09:15 Urine Protein >500 mg/dL (Negative) 02/04/22 09:15 Urine Glucose (UA) Negative mg/dL (Negative) 02/04/22 09:15 Urine Ketones Negative mg/dL (Negative) 02/04/22 09:15 Urine Blood Large (Negative) A 02/04/22 09:15 Urine Nitrite Negative (Negative) 02/04/22 09:15 Ur Reducing Substances Not Reportable 01/31/22 22:49 Urine Bilirubin Negative (Negative) 02/04/22 09:15 Urine Ictotest Not Reportable 01/31/22 22:49 Urine Urobilinogen < 2.0 mg/dL (<2.0) 02/04/22 09:15 Ur Leukocyte Esterase Negative (Negative) 02/04/22 09:15 Urine WBC (Auto) 12.0 /HPF (0.0-6.0) H 02/04/22 09:15 Urine RBC (Auto) 107.0 /HPF (0.0-6.0) 02/04/22 09:15 U Epithel Cells (Auto) 1.0 /HPF (0-13.0) 02/04/22 09:15 Urine Bacteria (Auto) 1+ /HPF (Negative) 02/04/22 09:15 Urine Mucus Few /HPF 02/04/22 09:15 Urine Yeast (Budding) 2+ /HPF 02/04/22 09:15 Vancomycin Trough 28.6 ug/mL (5.0-20.0) H 02/05/22 Unknown Coronavirus (PCR) Negative (Negative) 02/02/22 10:44 SARS-CoV-2 (PCR) Negative (Negative) 02/01/22 08:50 HIV 1&2 Antibody Rapid Non react (Non React) 02/04/22 14:37 HIV P24 Antigen Non react (Non React) 02/04/22 14:37 Blood Type A POSITIVE 02/13/22 09:41 Antibody Screen Negative 02/13/22 09:41 Crossmatch See Detail 02/13/22 09:41 Gastelum/IV: Voiding Method External Female Catheter Active Medications - Current Medications Current Medications: Generic Name Dose Route Start Last Admin Trade Name Freq PRN Reason Stop Dose Admin Acetaminophen 650 mg 02/01/22 00:57 02/04/22 11:58 Acetaminophen 325 Mg Tab PO 650 mg Q4H PRN Administration Pain MILD(1-3)/Fever >100.5/ROSADO Albuterol 2.5 mg 02/01/22 00:57 Albuterol 2.5 Mg/3 Ml Nebu IH Q3HRT PRN Shortness Of Breath Lipase/Protease/Amylase 1 each 02/02/22 08:08 Lipase 10,500/Protease 25,000/Amylase 43,750 (Units) Dr Cap FEEDTUBE PRN PRN For Clogged Feeding Tube Atorvastatin Calcium 20 mg 02/03/22 22:00 02/12/22 22:08 Atorvastatin 20 Mg Tab FEEDTUBE 20 mg QHS JAMIL Administration Dextrose 50 ml 02/02/22 08:00 02/05/22 11:52 Dextrose 50% In Water (25gm) 50 Ml Syringe IV 25 ml Q30MIN PRN Administration Hypoglycemia Protocol Famotidine 20 mg 02/04/22 10:00 02/13/22 09:54 Famotidine 20 Mg Tab FEEDTUBE 20 mg BID JAMIL Administration Fentanyl 50 mcg 02/02/22 09:45 02/12/22 20:00 Fentanyl 100 Mcg/2 Ml Inj IV 50 mcg Q10MIN PRN Administration ANALGESIA Fentanyl 50 mcg 02/12/22 10:11 02/12/22 17:35 Fentanyl 100 Mcg/2 Ml Inj IV 50 mcg Q2H PRN Administration VENT SYNCHRONY/AGITATION Hydrocortisone Sodium Succinate 50 mg 02/13/22 16:00 Hydrocortisone Sod Succ 100 Mg/2 Ml Vial IV Q12H JAMIL Hydrophilic Ointment 1 applic 02/01/22 18:52 Lip Therapy Vaseline TP Q2HR PRN Dry Lips NORepinephrine/NS 8 MG-250 ML 8 mg in 250 mls @ 3.75 mls/hr 02/01/22 20:00 02/07/22 19:18 Norepinephrine/Ns 8 Mg-250 Ml (Double Conc) IV 0 mcg/min TITRATE JAMIL 0 mls/hr Titration Protocol 2 MCG/MIN Propofol 1,000 mg in 100 mls @ 1.429 mls/hr 02/01/22 19:17 02/08/22 16:30 Diprivan 10 Mg/Ml IV 0 mcg/kg/min TITR JAMIL 0 mls/hr Titration Protocol 5 MCG/KG/MIN Fentanyl Citrate 2,000 mcg in 100 mls @ 2.381 mls/hr 02/02/22 10:00 02/13/22 11:46 Fentanyl Drip Premix IV 1 mcg/kg/hr TITR JAMIL 2.381 mls/hr Titration Protocol 1 MCG/KG/HR Phenylephrine HCl 100 mg/ 100 mls @ 3 mls/hr 02/03/22 14:15 02/07/22 19:18 Sodium Chloride IV 0 mcg/min TITR JAMIL 0 mls/hr Titration Protocol 50 MCG/MIN Sodium Chloride 500 mls @ 5 mls/hr 02/04/22 03:00 02/08/22 05:21 Nacl 0.9% 500 Ml IV 5 mls/hr DIRECT JAMIL Administration Vasopressin 20 unit/ Sodium 101 mls @ 9.09 mls/hr 02/04/22 09:15 02/07/22 19:18 Chloride IV 0 units/min TITR JAMIL 0 mls/hr Titration Protocol 0.03 UNITS/MIN Sodium Chloride 500 mls @ 0 mls/hr 02/13/22 08:04 Nacl 0.9% 500 Ml IV 02/13/22 23:59 ONCE NR As Directed Insulin Glargine 20 units 02/12/22 22:00 02/12/22 22:15 Insulin Glargine 100 Units/Ml SUB-Q 20 units QHS JAMIL Administration Insulin Human Regular 0 units 02/02/22 18:00 02/13/22 06:06 Insulin Regular, Human 100 Units/1 Ml SUB-Q 6 units Q6H JAMIL Administration Protocol Multi-Ingred Cream/Lotion/Oil/Oint 1 applic 02/01/22 18:52 Mineral Oil/Petrolatum, White Ophth Oint 3.5 Gm OU Q4HR PRN Dry Eye(s) Nitroglycerin 0.5 inch 02/11/22 14:00 02/13/22 06:00 Nitroglycerin 2% Oint 1 Gm TP 0.5 inch BIDNTG JAMIL Administration Protocol Ondansetron HCl 4 mg 02/01/22 00:57 Ondansetron 4 Mg/2 Ml Inj IV Q8H PRN Nausea And Vomiting Quetiapine Fumarate 50 mg 02/09/22 10:00 02/13/22 09:54 Quetiapine 25 Mg Tab PO 50 mg BID JAIML Administration Senna/Docusate Sodium 2 tab 02/07/22 10:00 02/13/22 11:11 Sennosides/Docusate Sodium 8.6/50 Mg Tab PO Not Given Q12H JAMIL Simple Syrup 15 ml 02/02/22 08:08 Simple Syrup 15 Ml FEEDTUBE PRN PRN Hypoglycemia Simple Syrup 30 ml 02/02/22 08:08 Simple Syrup 15 Ml FEEDTUBE PRN PRN Hypoglycemia Sodium Bicarbonate 325 mg 02/02/22 08:08 Sodium Bicarbonate 325 Mg Tab FEEDTUBE PRN PRN For Clogged Feeding Tube Sodium Chloride 10 ml 02/01/22 10:00 02/13/22 09:54 Sodium Chloride 0.9% 10 Ml Flush Syringe IV 10 ml BID JAMIL Administration Sodium Chloride 10 ml 02/01/22 00:57 02/09/22 05:59 Sodium Chloride 0.9% 10 Ml Flush Syringe IV 10 ml PRN PRN Administration LINE FLUSH Nutrition/Malnutrition Assess - Dietary Evaluation Nutrition/Malnutrition Findings: Nutrition Notes Start: 02/01/22 17:50 Freq: Status: Active Protocol: Document 02/13/22 10:51 JACQUELINE (Rec: 02/13/22 11:11 JACQUELINE [email or web address]) Nutrition Notes Initial or Follow up Assessment Current Diagnosis Diabetes,Sepsis,Respiratory Failure Other Pertinent Diagnosis s/p DKA, s/p PEA Arrest, Pneumonia, Pyuria, Pancytopenia, UTI, ... Current Diet TF-Glucerna 1.2 Venu @ 55 ml/hr (since L 02/04). Labs/Tests 02/13: Na 146, CO2 38, BUN 25, Crea 0.4, Glu 235, Ca 8.0. Pertinent Medications 02/13: Lantus 20U, Humulin 6U, others nutritionally unremarkable. Height 5 ft 4 in Weight 48.8 kg [place] Body Weight (kg) 54.54 BMI 18.4 Weight change and time frame 2.3 Kg body weight gain reported in 1 week. Weight Status Underweight Subjective/Other Information RD consult for TF tolerance/ continuation. TF continues as prescribed, and well tolerated, according to RN notes. Pt remains on Mechanical Ventilation, O2 saturation @ 100%, according to Physical Assessment History notes. Pt remains incontinent, according to Physical Assessment History notes. Plans for extubation on 02/14 am, according to Progress notes. Percent of energy/protein needs met: Prescribed TF-Glucerna 1.2 Venu @ 55 ml/hr provides for energy/protein needs (1584 Kcal/79 g) during LOS, 97% Kcal; 100% AA. Burn Absent Trauma Absent GI Symptoms None Difficulty In Swallowing Food Allergy No Skin Integrity/Comment Unspecified area of concern. 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 Yes Is Patient Ambulatory and/or Out of Bed No [facility] 1262.676 Kcal/Kg value to use for calculation 34 Approximate Energy Requirements Using 1659 kcal/Kg Calculation Used for Recommendations Kcal/kg Additional Notes Protein: 1.2-2 g/Kg ABW; 56-93 g/day. Fluids: 1 ml/Kcal, or as per MD. Nutrition Intervention Nutrition Support: Continue TF-Glucerna 1.2 Venu @ 55 ml/hr. Flush: 250 ml water Q 4 hr while hypernatremia persists, resume to 100 ml when Na is WNL. Kcal 1,584 Protein (gm) 79 Carbohydrates (gm) 151 Fat (gm) 79 Fluid (mL) 1,063 Fiber (gm) 21 % RDI: 97% Kcal; 100% AA. Goal #1 Provide at least 75% of energy /protein needs through Enteral Feeding during LOS. Follow-Up By: 02/20/22 Additional Comments Continue monitoring TF tolerance, Mechanical Ventilation, Hypernatremia, and BM. <ABDELRAHMAN MCMAHAN - Last Filed: 02/25/22 11:39> History Interval history: I saw and evaluated the patient. I agree with the findings and the plan of care as documented in the Nurse Practitioner's~note, with the following corrections and additions. Hospitalist Physical - Constitutional Vitals: Temp Pulse Resp BP Pulse Ox 100.5 F H 115 H 27 H 101/70 100 02/22/22 16:00 02/22/22 18:00 02/22/22 18:00 02/22/22 18:00 02/22/22 18:00 HEART Score - HEART Score Troponin: Troponin T < 0.010 ng/mL (0.00-0.029) 02/03/22 16:15 Results - Labs CBC & Chem 7: 02/22/22 04:00 02/22/22 04:00 Labs: Laboratory Last Values WBC 15.0 K/mm3 (4.5-11.0) H 02/22/22 04:00 RBC 3.62 M/mm3 (3.65-5.03) L 02/22/22 04:00 Hgb 7.7 gm/dl (10.1-14.3) L 02/22/22 04:00 Hct 24.8 % (30.3-42.9) L 02/22/22 04:00 MCV 68 fl (79-97) L 02/22/22 04:00 MCH 21 pg (28-32) L 02/22/22 04:00 MCHC 31 % (30-34) 02/22/22 04:00 RDW 29.9 % (13.2-15.2) H 02/22/22 04:00 Plt Count 442 K/mm3 (140-440) H 02/22/22 04:00 Lymph % (Auto) Light Fixture Servicer 02/02/22 04:00 Add Manual Diff Complete 02/03/22 04:00 Total Counted 50 02/03/22 04:00 Seg Neutrophils % Light Fixture Servicer 02/02/22 04:00 Seg Neuts % (Manual) 76.0 % (40.0-70.0) H 02/03/22 04:00 Band Neutrophils % 18.0 % 02/03/22 04:00 Lymphocytes % (Manual) 2.0 % (13.4-35.0) L 02/03/22 04:00 Reactive Lymphs % (Man) 0 % 02/03/22 04:00 Monocytes % (Manual) 4.0 % (0.0-7.3) 02/03/22 04:00 Eosinophils % (Manual) 0 % (0.0-4.3) 02/03/22 04:00 Basophils % (Manual) 0 % (0.0-1.8) 02/03/22 04:00 Metamyelocytes % 0 % 02/03/22 04:00 Myelocytes % 0 % 02/03/22 04:00 Promyelocytes % 0 % 02/03/22 04:00 Blast Cells % 0 % 02/03/22 04:00 Nucleated RBC % 4.0 % (0.0-0.9) H 02/03/22 04:00 Seg Neutrophils # Man 2.8 K/mm3 (1.8-7.7) 02/03/22 04:00 Band Neutrophils # 0.7 K/mm3 02/03/22 04:00 Lymphocytes # (Manual) 0.1 K/mm3 (1.2-5.4) L 02/03/22 04:00 Abs React Lymphs (Man) 0.0 K/mm3 02/03/22 04:00 Monocytes # (Manual) 0.1 K/mm3 (0.0-0.8) 02/03/22 04:00 Eosinophils # (Manual) 0.0 K/mm3 (0.0-0.4) 02/03/22 04:00 Basophils # (Manual) 0.0 K/mm3 (0.0-0.1) 02/03/22 04:00 Metamyelocytes # 0.0 K/mm3 02/03/22 04:00 Myelocytes # 0.0 K/mm3 02/03/22 04:00 Promyelocytes # 0.0 K/mm3 02/03/22 04:00 Blast Cells # 0.0 K/mm3 02/03/22 04:00 WBC Morphology Not Reportable 02/03/22 04:00 Hypersegmented Neuts Not Reportable 02/03/22 04:00 Hyposegmented Neuts Not Reportable 02/03/22 04:00 Hypogranular Neuts Not Reportable 02/03/22 04:00 Smudge Cells Not Reportable 02/03/22 04:00 Toxic Granulation Not Reportable 02/03/22 04:00 Toxic Vacuolation Not Reportable 02/03/22 04:00 Dohle Bodies Few 02/03/22 04:00 Pelger-Huet Anomaly Not Reportable 02/03/22 04:00 Sung Rods Not Reportable 02/03/22 04:00 Platelet Estimate Consistent w auto 02/03/22 04:00 Clumped Platelets Not Reportable 02/03/22 04:00 Plt Clumps, EDTA Not Reportable 02/03/22 04:00 Large Platelets Not Reportable 02/03/22 04:00 Giant Platelets Not Reportable 02/03/22 04:00 Platelet Satelliting Not Reportable 02/03/22 04:00 Plt Morphology Comment Not Reportable 02/03/22 04:00 RBC Morphology Not Reportable 02/03/22 04:00 Dimorphic RBCs Not Reportable 02/03/22 04:00 Polychromasia Not Reportable 02/03/22 04:00 Hypochromasia 3+ 02/03/22 04:00 Poikilocytosis 2+ 02/03/22 04:00 Anisocytosis 1+ 02/03/22 04:00 Microcytosis 2+ 02/03/22 04:00 Macrocytosis Not Reportable 02/03/22 04:00 Spherocytes Not Reportable 02/03/22 04:00 Pappenheimer Bodies Not Reportable 02/03/22 04:00 Sickle Cells Not Reportable 02/03/22 04:00 Target Cells 1+ 02/03/22 04:00 Tear Drop Cells Few 02/03/22 04:00 Ovalocytes Few 02/03/22 04:00 Helmet Cells Not Reportable 02/03/22 04:00 [place] Bodies Not Reportable 02/03/22 04:00 [place] Rings Not Reportable 02/03/22 04:00 Lesly Cells 1+ 02/03/22 04:00 Bite Cells Not Reportable 02/03/22 04:00 Crenated Cell Not Reportable 02/03/22 04:00 Elliptocytes Few 02/03/22 04:00 Acanthocytes (Spur) Not Reportable 02/03/22 04:00 Rouleaux Not Reportable 02/03/22 04:00 Hemoglobin C Crystals Not Reportable 02/03/22 04:00 Schistocytes Rare 02/03/22 04:00 Malaria parasites Not Reportable 02/03/22 04:00 Percent Retic 0.65 % (0.78-2.58) L 02/08/22 03:55 Sven Bodies Not Reportable 02/03/22 04:00 Hem Pathologist Commnt No 02/03/22 04:00 PT 13.7 Sec. (12.2-14.9) 02/18/22 04:00 INR 0.95 (0.87-1.13) 02/18/22 04:00 APTT 29.5 Sec. (24.2-36.6) 02/16/22 04:36 Fibrinogen 795 mg/dl (211-480) H 02/05/22 08:48 ABG pH 7.463 pH Units (7.350-7.450) H 02/17/22 05:06 POC ABG pCO2 37.3 mmHg (32.0-48.0) 02/02/22 04:49 ABG pCO2 46.8 mm Hg 02/17/22 05:06 POC ABG pO2 79.9 mmHg (83-108) L 02/02/22 04:49 ABG pO2 113.6 mm Hg (80.0-90.0) H 02/17/22 05:06 POC ABG HCO3 30.3 02/02/22 04:49 ABG HCO3 32.8 mmol/L (20.0-26.0) H 02/17/22 05:06 ABG O2 Saturation 98.2 % (95.0-99.0) 02/17/22 05:06 ABG O2 Content 11.0 (0.0-44) 02/17/22 05:06 POC ABG Base Excess 7.1 02/02/22 04:49 ABG Base Excess 8.1 mmol/L (-2.0-3.0) H 02/17/22 05:06 ABG Hemoglobin 8.0 gm/dl (12.0-16.0) L 02/17/22 05:06 ABG Oxyhemoglobin 96.0 (94-98) 02/02/22 04:49 ABG Carboxyhemoglobin 1.7 % (0.0-5.0) 02/17/22 05:06 ABG Methemoglobin 0.5 % (0.0-1.5) 02/17/22 05:06 ABG Sodium Not Reportable 02/02/22 04:49 ABG Potassium Not Reportable 02/02/22 04:49 ABG Chloride Not Reportable 02/02/22 04:49 ABG Glucose Not Reportable 02/02/22 04:49 Oxyhemoglobin 96.0 % (95.0-99.0) 02/17/22 05:06 Carboxyhemoglobin 0.2 (0.5-1.5) L 02/02/22 04:49 FiO2 30 % 02/17/22 05:06 FiO2 % 60.0 02/02/22 04:49 Sodium 143 mmol/L (137-145) 02/22/22 04:00 Potassium 3.7 mmol/L (3.6-5.0) 02/22/22 04:00 Chloride 108.7 mmol/L (98-107) H 02/22/22 04:00 Carbon Dioxide 26 mmol/L (22-30) 02/22/22 04:00 Anion Gap 12 mmol/L 02/22/22 04:00 BUN 10 mg/dL (7-17) 02/22/22 04:00 Creatinine 0.4 mg/dL (0.6-1.2) L 02/22/22 04:00 Estimated GFR > 60 ml/min 02/22/22 04:00 BUN/Creatinine Ratio 25 % 02/22/22 04:00 Glucose 49 mg/dL (65-100) L 02/22/22 04:00 POC Glucose 173 mg/dL (70-105) H 02/22/22 18:19 Hemoglobin A1c 11.1 % (4-6) H 02/01/22 12:54 Lactic Acid 2.50 mmol/L (0.7-2.0) H* 02/06/22 11:50 Calcium 8.7 mg/dL (8.4-10.2) 02/22/22 04:00 Phosphorus 2.90 mg/dL (2.5-4.5) 02/22/22 11:35 Magnesium 1.70 mg/dL (1.7-2.3) 02/22/22 11:35 Total Bilirubin 0.50 mg/dL (0.1-1.2) 02/17/22 05:00 Direct Bilirubin < 0.2 mg/dL (0-0.2) 02/13/22 04:00 Indirect Bilirubin 0.1 mg/dL 02/13/22 04:00 AST 38 units/L (5-40) 02/17/22 05:00 ALT 28 units/L (7-56) 02/17/22 05:00 Alkaline Phosphatase 102 units/L (35-129) 02/17/22 05:00 Lactate Dehydrogenase 879 units/L (91-180) H 02/05/22 04:40 Troponin T < 0.010 ng/mL (0.00-0.029) 02/03/22 16:15 Total Protein 5.4 g/dL (6.3-8.2) L 02/17/22 05:00 Albumin 2.5 g/dL (3.9-5) L 02/17/22 05:00 Albumin/Globulin Ratio 0.9 % 02/17/22 05:00 Arterial Blood Glucose Not Reportable 02/02/22 04:49 Urine Color Straw (Yellow) 02/19/22 18:15 Urine Turbidity Clear (Clear) 02/19/22 18:15 Urine pH 8.0 (5.0-7.0) H 02/19/22 18:15 Ur Specific [place] 1.000 (1.003-1.030) L 02/19/22 18:15 Urine Protein 30 mg/dl mg/dL (Negative) 02/19/22 18:15 Urine Glucose (UA) Negative mg/dL (Negative) 02/19/22 18:15 Urine Ketones 5 mg/dL (Negative) 02/19/22 18:15 Urine Blood 1+ (Negative) 02/19/22 18:15 Urine Nitrite Negative (Negative) 02/19/22 18:15 Ur Reducing Substances Not Reportable 02/19/22 18:15 Urine Bilirubin Negative (Negative) 02/19/22 18:15 Urine Ictotest Not Reportable 02/19/22 18:15 Urine Urobilinogen Small mg/dL (<2.0) 02/19/22 18:15 Ur Leukocyte Esterase Negative (Negative) 02/19/22 18:15 Urine WBC (Auto) 2.0 /HPF (0.0-6.0) 02/19/22 18:15 Urine RBC (Auto) 3.0 /HPF (0.0-6.0) 02/19/22 18:15 U Epithel Cells (Auto) 1.0 /HPF (0-13.0) 02/04/22 09:15 Urine Bacteria (Auto) 1+ /HPF (Negative) 02/19/22 18:15 Urine Mucus Few /HPF 02/04/22 09:15 Urine Yeast (Budding) 2+ /HPF 02/04/22 09:15 Vancomycin Trough 28.6 ug/mL (5.0-20.0) H 02/05/22 Unknown Coronavirus (PCR) Negative (Negative) 02/02/22 10:44 SARS-CoV-2 (PCR) Negative (Negative) 02/15/22 09:39 HIV 1&2 Antibody Rapid Non react (Non React) 02/04/22 14:37 HIV P24 Antigen Non react (Non React) 02/04/22 14:37 Blood Type A POSITIVE 02/13/22 09:41 Antibody Screen Negative 02/13/22 09:41 Crossmatch See Detail 02/13/22 09:41 Microbiology: Microbiology 02/19/22 14:51 Peripheral/Venous Blood Culture - Final NO GROWTH AFTER 5 DAYS 02/19/22 14:51 Peripheral/Venous Blood Culture - Final NO GROWTH AFTER 5 DAYS 02/19/22 18:43 Tracheal Aspirate Sputum Culture - Final Gastelum/IV: Voiding Method External Female Catheter Nutrition/Malnutrition Assess - Dietary Evaluation Nutrition/Malnutrition Findings: Nutrition Notes Start: 02/01/22 17:50 Freq: Status: Discharge Protocol: Document 02/19/22 14:47 JACQUELINE (Rec: 02/19/22 15:20 JACQUELINE [id number]) Nutrition Notes Need for Assessment generated from: Low BMI Initial or Follow up Reassessment Current Diagnosis Diabetes,Sepsis,Respiratory Failure Other Pertinent Diagnosis s/p DKA, s/p PEA Arrest, Pneumonia, Pyuria, Pancytopenia, UTI, ... Current Diet TF-Glucerna 1.2 Venu @ 55 ml/hr (since D 02/18). Labs/Tests 02/19: Crea 0.3, Glu 143. Pertinent Medications 02/19: D10w @ 42 ml/hr, others nutritionally unremarkable. Height 5 ft 4 in Weight 47 kg [place] Body Weight (kg) 54.54 BMI 17.7 Weight change and time frame 1.8 Kg body weight loss in 1 week reported. Weight Status Underweight Subjective/Other Information RD consult for routine F/U on TF tolerance/continuation, and Low BMI assessment. TF continues as prescribed, but currently on hold, due to vomiting episode after PEG placement, according to RN notes. Pt remains on Mechanical Ventilation, O2 saturation @ 100%, according to Physical Assessment History notes. PEG-tube placement on 02/18, well tolerated, according to Operative Report notes. Pt's Low BMI seems to correspond to a natural body composition, and not related to a sudden loss of body weight nor chronic malnutrition, since no signs of concern were mentioned in the Physical Assessment History or the Progress notes. Percent of energy/protein needs met: Prescribed TF-Glucerna 1.2 Venu @ 55 ml/hr provides for energy/protein needs (1584 Kcal/79 g) during LOS, 97% Kcal; 100% AA. Burn Absent Trauma Absent GI Symptoms Vomiting Difficulty In Swallowing Food Allergy No Skin Integrity/Comment Unspecified area of concern. 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 Yes Is Patient Ambulatory and/or Out of Bed No REE-([facility]-confined to bed) 1241.100 Kcal/Kg value to use for calculation 34 Approximate Energy Requirements Using 1598 kcal/Kg Calculation Used for Recommendations Kcal/kg Additional Notes Protein: 1.2-2 g/Kg ABW; 56-93 g/day. Fluids: 1 ml/Kcal, or as per MD. Nutrition Intervention Nutrition Support: Continue TF-Glucerna 1.2 Venu @ 55 ml/hr. Flush: 100 ml water Q 4 hr, or as per MD. Kcal 1,584 Protein (gm) 79 Carbohydrates (gm) 151 Fat (gm) 79 Fluid (mL) 1,063 Fiber (gm) 21 % RDI: 97% Kcal; 100% AA. Goal #1 Provide at least 75% of energy /protein needs through Enteral Feeding during LOS. Follow-Up By: 03/05/22 Additional Comments Continue monitoring TF tolerance, Mechanical Ventilation, and BM.
--- NOTE | 2022-02-13 15:15 | Progress Note ---
Assessment and Plan Patient is a 61-year-old female brought to the ED from a [facility]p due to altered mental status. Patient found to be in DKA and have cardiopulmonary S/p cardiopulmonary arrest Acute respiratory failure-pulmonology following DKA Sepsis-ID following SVT Hypotension [id number] following Echo 02/02/2022-EF 55 to 60%. Left ventricular diastolic function is normal. Right ventricular systolic function is mildly reduced. Left and right atria normal in size. No pericardial effusion Plan: Per documentation and conversation with staff patient potentially for extubation Patient is s/p cardiopulmonary arrest however previous rhythm unknown/ suspected to be PEA Telemetry reviewed patient remains in sinus tach no further episodes of SVT Patient has normal EF on echo. Will consider ischemic eval once patient is stable Continue to monitor Patient seen in conjunction with Dr. Mendez who agrees with this plan of care - Patient Problems (1) SVT (supraventricular tachycardia) Current Visit: Yes Status: Acute (2) Acute respiratory failure Current Visit: Yes Status: Acute Qualifiers: Respiratory failure complication: hypoxia Qualified Code(s): J96.01 - Acute respiratory failure with hypoxia (3) Cardiopulmonary arrest with successful resuscitation Current Visit: Yes Status: Acute (4) Hypotension Current Visit: Yes Status: Acute (5) Pancytopenia Current Visit: Yes Status: Acute (6) Sepsis Current Visit: Yes Status: Acute Subjective Date of service: 02/13/22 Principal diagnosis: DKA, s/p cardiopulmonary arrest Interval history: Patient remains intubated Sinus tach 100s no events on monitor Objective Vital Signs Temp Pulse Pulse Resp BP Pulse Ox 02/13/22 12:58 102 H 118/68 99 02/13/22 11:30 98.2 F 114 H 26 H 147/84 100 02/13/22 11:15 98.2 F 112 H 19 96/66 100 02/13/22 11:00 114 H 21 96/66 100 02/13/22 10:45 114 H 18 100/71 100 02/13/22 10:31 115 H 28 H 100/71 02/13/22 10:15 108 H 16 100/71 02/13/22 10:00 109 H 22 100/71 02/13/22 09:45 110 H 16 102/63 02/13/22 09:31 108 H 21 102/63 02/13/22 09:25 112 H 128/76 98 02/13/22 09:15 105 H 14 102/63 02/13/22 09:00 105 H 12 102/63 02/13/22 08:45 105 H 12 117/75 02/13/22 08:31 108 H 13 117/75 02/13/22 08:15 107 H 20 117/75 02/13/22 08:00 98.4 F 110 H 104 H 20 117/75 100 02/13/22 07:45 111 H 14 110/74 02/13/22 07:31 110 H 14 110/74 02/13/22 07:15 113 H 16 110/74 02/13/22 07:00 115 H 19 110/74 02/13/22 06:45 114 H 16 110/71 100 02/13/22 06:31 113 H 17 110/71 100 02/13/22 06:19 109 H 13 110/71 100 02/13/22 06:17 109 H 13 110/71 100 02/13/22 06:15 110 H 16 110/71 100 02/13/22 06:13 111 H 13 110/71 100 02/13/22 06:11 112 H 18 110/71 100 02/13/22 06:09 110 H 15 110/71 100 02/13/22 06:07 110 H 13 110/71 100 02/13/22 06:05 108 H 15 110/71 100 02/13/22 06:03 109 H 14 110/71 100 02/13/22 06:01 110 H 16 110/71 100 02/13/22 06:00 109 H 17 110/71 100 02/13/22 05:59 109 H 15 110/71 100 02/13/22 05:57 109 H 14 100/65 100 02/13/22 05:55 108 H 13 100/65 100 02/13/22 05:53 110 H 14 100/65 100 02/13/22 05:51 108 H 14 100/65 100 02/13/22 05:49 109 H 14 100/65 100 02/13/22 05:47 110 H 14 100/65 100 02/13/22 05:45 110 H 14 100/65 100 02/13/22 05:43 109 H 14 100/65 100 02/13/22 05:41 110 H 14 100/65 100 02/13/22 05:39 111 H 13 100/65 100 02/13/22 05:37 111 H 14 100/65 100 02/13/22 05:35 113 H 15 100/65 100 02/13/22 05:33 111 H 14 100/65 100 02/13/22 05:31 111 H 14 100/65 100 02/13/22 05:29 110 H 14 100/65 100 02/13/22 05:27 111 H 13 100/65 100 02/13/22 05:25 111 H 14 100/65 100 02/13/22 05:23 111 H 15 100/65 100 02/13/22 05:21 111 H 14 100/65 100 02/13/22 05:19 112 H 14 100/65 100 02/13/22 05:17 112 H 16 100/65 100 02/13/22 05:15 111 H 14 100/65 100 02/13/22 05:13 111 H 15 100/65 100 02/13/22 05:11 111 H 14 100/65 100 02/13/22 05:09 111 H 14 100/65 100 02/13/22 05:07 111 H 15 100/65 100 02/13/22 05:05 112 H 15 100/65 100 02/13/22 05:03 111 H 15 100/65 100 02/13/22 05:01 111 H 14 100/65 02/13/22 05:00 112 H 16 100/65 02/13/22 04:59 112 H 14 100/65 100 02/13/22 04:57 113 H 15 105/69 100 02/13/22 04:55 114 H 16 105/69 100 02/13/22 04:53 118 H 17 105/69 100 02/13/22 04:51 120 H 26 H 105/69 100 02/13/22 04:49 117 H 26 H 105/69 98 02/13/22 04:47 114 H 22 105/69 100 02/13/22 04:45 113 H 22 105/69 100 02/13/22 04:12 110 H 105/69 100 02/13/22 04:00 98.6 F 110 H 110 H 14 100 02/13/22 01:23 109 H 15 92/57 100 02/13/22 01:21 108 H 15 92/57 100 02/13/22 01:19 108 H 15 92/57 100 02/13/22 01:17 108 H 18 92/57 100 02/13/22 01:15 107 H 15 92/57 100 02/13/22 01:13 107 H 15 92/57 100 02/13/22 01:11 107 H 15 92/57 100 02/13/22 01:09 108 H 16 92/57 100 02/13/22 01:07 108 H 15 92/57 100 02/13/22 01:05 107 H 16 92/57 100 02/13/22 01:03 105 H 15 92/57 100 02/13/22 01:01 107 H 14 92/57 100 02/13/22 01:00 106 H 16 91/61 99 02/13/22 00:59 107 H 15 91/61 100 02/13/22 00:57 106 H 15 92/57 100 02/13/22 00:55 106 H 15 92/57 100 02/13/22 00:53 106 H 14 92/57 100 02/13/22 00:51 105 H 15 92/57 100 02/13/22 00:49 106 H 15 92/57 100 02/13/22 00:47 105 H 15 92/57 100 02/13/22 00:45 106 H 15 92/57 100 02/13/22 00:43 106 H 15 92/57 100 02/13/22 00:41 105 H 15 92/57 100 02/13/22 00:39 106 H 15 92/57 100 02/13/22 00:38 105 H 16 92/57 100 02/13/22 00:37 106 H 15 92/57 100 02/13/22 00:35 106 H 16 92/57 100 02/13/22 00:33 106 H 16 92/57 100 02/13/22 00:31 104 H 16 92/57 100 02/13/22 00:29 105 H 16 92/57 100 02/13/22 00:27 104 H 17 92/57 100 02/13/22 00:25 105 H 19 92/57 100 02/13/22 00:23 106 H 21 92/57 100 02/13/22 00:21 104 H 16 92/57 100 02/13/22 00:19 104 H 16 92/57 100 02/13/22 00:17 103 H 17 92/57 100 02/13/22 00:15 104 H 17 92/57 100 02/13/22 00:13 103 H 18 92/57 100 02/13/22 00:11 104 H 17 92/57 100 02/13/22 00:09 103 H 17 92/57 100 02/13/22 00:07 105 H 18 92/57 100 02/13/22 00:05 102 H 17 92/57 100 02/13/22 00:03 102 H 19 92/57 100 02/13/22 00:01 103 H 18 92/57 100 02/13/22 00:00 98.6 F 102 H 106 H 17 92/57 100 02/12/22 23:59 102 H 18 92/57 100 02/12/22 23:57 103 H 18 88/59 100 02/12/22 23:55 103 H 18 88/59 99 02/12/22 23:53 103 H 18 88/59 100 02/12/22 23:51 104 H 19 88/59 99 02/12/22 20:37 114 H 100/60 100 02/12/22 20:00 98.6 F 110 H 106 H 15 100 02/12/22 18:15 126 H 200/106 100 02/12/22 18:11 106 H 22 226/100 92 02/12/22 18:09 71 23 226/100 94 02/12/22 18:07 112 H 25 H 154/94 99 02/12/22 18:05 125 H 29 H 154/94 100 02/12/22 18:03 124 H 27 H 154/94 100 02/12/22 18:01 126 H 29 H 154/94 100 02/12/22 18:00 126 H 29 H 154/94 100 02/12/22 17:59 128 H 24 140/89 100 02/12/22 17:57 123 H 26 H 140/89 100 02/12/22 17:55 124 H 27 H 140/89 100 02/12/22 17:53 123 H 26 H 140/89 100 02/12/22 17:51 124 H 25 H 140/89 100 02/12/22 17:49 125 H 25 H 140/89 100 02/12/22 17:47 125 H 25 H 140/89 100 02/12/22 17:45 126 H 26 H 140/89 100 02/12/22 17:43 127 H 27 H 140/89 02/12/22 17:41 128 H 29 H 140/89 02/12/22 17:39 129 H 27 H 140/89 02/12/22 17:37 130 H 31 H 140/89 02/12/22 17:35 133 H 28 H 140/89 02/12/22 17:33 139 H 28 H 140/89 02/12/22 17:31 135 H 29 H 140/89 02/12/22 17:29 133 H 30 H 140/89 02/12/22 17:27 132 H 30 H 140/89 02/12/22 17:25 131 H 32 H 140/89 02/12/22 17:23 130 H 31 H 140/89 02/12/22 17:21 133 H 32 H 140/89 02/12/22 17:19 130 H 33 H 140/89 02/12/22 17:17 127 H 32 H 140/89 02/12/22 17:15 127 H 25 H 140/89 02/12/22 17:13 126 H 25 H 140/89 02/12/22 17:11 123 H 26 H 140/89 02/12/22 17:09 123 H 28 H 140/89 02/12/22 17:07 122 H 25 H 140/89 02/12/22 17:05 122 H 25 H 140/89 02/12/22 17:03 122 H 26 H 140/89 02/12/22 17:01 123 H 25 H 140/89 02/12/22 17:00 124 H 23 140/89 02/12/22 16:59 125 H 27 H 131/89 02/12/22 16:57 126 H 28 H 131/89 02/12/22 16:55 124 H 28 H 131/89 02/12/22 16:53 125 H 27 H 131/89 02/12/22 16:51 124 H 27 H 131/89 02/12/22 16:49 125 H 27 H 131/89 02/12/22 16:47 125 H 28 H 131/89 02/12/22 16:45 122 H 25 H 131/89 02/12/22 16:43 122 H 29 H 131/89 100 02/12/22 16:41 120 H 24 131/89 100 02/12/22 16:39 118 H 24 131/89 100 02/12/22 16:37 117 H 24 131/89 100 02/12/22 16:00 98.5 F 117 H 106 H 22 131/89 99 02/12/22 15:45 118 H 21 159/91 100 02/12/22 15:31 127 H 33 H 159/91 100 02/12/22 15:15 108 H 19 159/91 100 - Physical Examination General: Other (Intubated and sedated) HEENT: Positive: Normocephaly, Mucus Membranes Moist Neck: Positive: neck supple, trachea midline Cardiac: Positive: Regular Rhythm, Tachycardia Neuro: Positive: Other (Sedated, intubated and mechanically ventilated.) Abdomen: Positive: Soft, Active Bowel Sounds Skin: Negative: Rash Musculoskeletal: No Fluid Collection Extremities: Absent: edema - Labs and Meds Cardiac Enzymes 02/13/22 Range/Units 04:00 AST 30 (5-40) units/L CBC 02/13/22 Range/Units 04:00 WBC 23.6 H (4.5-11.0) K/mm3 RBC 3.42 L (3.65-5.03) M/mm3 Hgb 6.7 L (10.1-14.3) gm/dl Hct 21.7 L (30.3-42.9) % Plt Count 378 (140-440) K/mm3 Comprehensive Metabolic Panel 02/13/22 Range/Units 04:00 Sodium 146 H (137-145) mmol/L Potassium 4.1 (3.6-5.0) mmol/L Chloride 100.5 (98-107) mmol/L Carbon Dioxide 38 H (22-30) mmol/L BUN 25 H (7-17) mg/dL Creatinine 0.4 L (0.6-1.2) mg/dL Glucose 235 H (65-100) mg/dL Calcium 8.0 L (8.4-10.2) mg/dL Direct Bilirubin < 0.2 (0-0.2) mg/dL Indirect Bilirubin 0.1 mg/dL AST 30 (5-40) units/L ALT 58 H (7-56) units/L Alkaline Phosphatase 143 H (35-129) units/L Total Protein 4.7 L (6.3-8.2) g/dL Albumin 2.2 L (3.9-5) g/dL - Imaging and Cardiology Echo: report reviewed - Telemetry EKG Rhythm: Sinus Tachycardia - EKG Sinus rhythms and dysrhythmias: sinus tachycardia Myocardial infarction: septal AL (old age or ind
[2022-02-13] MEDS: INSULIN GLARGINE 100 UNITS/ML SUB-Q SCH (22:11)
[2022-02-14] MEDS: INSULIN REGULAR, HUMAN 100 UNITS/1 ML SUB-Q SCH ×4 (01:01→23:24)
[2022-02-14] MEDS: FREE WATER PO SCH ×5 (02:12→23:24)
[2022-02-14] MEDS: HYDROCORTISONE SOD SUCC 100 MG/2 ML VIAL IV SCH ×2 (04:12→16:59)
[2022-02-14 04:52] LABS: Hematocrit 28.8 % (30.3-42.9); Hemoglobin 9.4 gm/dl (10.1-14.3); Mean Corpuscular HGB Conc 33 % (30-34); Platelet Count 379 K/mm3 (140-440); Red Blood Count 4.19 M/mm3 (3.65-5.03)
[2022-02-14 04:54] LABS: ABG Base Excess 11.1 mmol/L (-2.0-3.0); ABG HCO3 35.8 mmol/L (20.0-26.0); ABG Methemoglobin 0.4 % (0.0-1.5); ABG Oxygen Saturation 97.8 % (95.0-99.0); ABG PCO2 48.8 mm Hg; ABG PH 7.484 pH Units (7.350-7.450); ABG PO2 101.5 mm Hg (80.0-90.0)
[2022-02-14 04:54] LABS: Mean Corpuscular Volume 69 fl (79-97); Red Cell Distribution Width 30.3 % (13.2-15.2)
[2022-02-14] MEDS: NITROGLYCERIN 2% OINT 1 GM TP SCH ×2 (06:15→14:26)
--- NOTE | 2022-02-14 08:00 | XRay Report ---
CHEST 1 VIEW 02/08/2022 1:06 AM INDICATION / CLINICAL INFORMATION: follow up respiratory failure. COMPARISON: One view of the chest from 02/07/2022. FINDINGS: SUPPORT DEVICES: Unchanged. HEART / MEDIASTINUM: Stable. LUNGS / PLEURA: Bilateral airspace opacities have worsened. No significant pleural effusion. No pneum othorax. ADDITIONAL FINDINGS: No significant additional findings. IMPRESSION: Interval worsening of bilateral airspace opacities. No other significant interval changes. Signer Name: Chau Pham MD Signed: 02/08/2022 2:36 AM Workstation Name: [id number]
[2022-02-14] MEDS: FAMOTIDINE 20 MG TAB FEEDTUBE SCH ×2 (09:09→21:41)
[2022-02-14] MEDS: QUEtiapine 25 MG TAB PO SCH ×2 (09:09→21:41)
[2022-02-14] MEDS: SENNOSIDES/DOCUSATE SODIUM 8.6/50 MG TAB PO SCH ×2 (09:09→21:41)
--- NOTE | 2022-02-14 09:30 | Progress Note ---
Assessment and Plan 02/14/22: Today will plan to extubate. if fails will need trach. Reviewed chart and saw vascular recs. Will wean steroids again either tomorrow or Friday. 02/13/22: Drop steroids to 50q12 today. Currently on PSV 14/6. Sedatioin off. Tentatively plan for possible extubation tomorrow morning. 02/12/22: Will wean steroids more tomorrow. Drop PEEP to 6 today and attempt PSV this afternoon. If tolerates will leave on PSV until end of day shift and then rest on rate overnight. Hopeful to leave off sedation and control with PRN pushes. Repeat PSV tomorrow consider ABG, pending on how she looks clinically. Hopeful for conventional ventilation but family is on board if trach and peg are required. 02/11/22: Will drop steroids to 50q8. Will drop PEEP to 8. Once PEEP at 6 , then consult surgery fro trach and peg unless off sedation mental state is better and she can tolerate PSV to assess if able for conventional extubation. Prognosis still remains guarded but improved now that pulmonary status has improved. 02/08/22: Please do not attempt to wean PEEP unless it is compromising clinical state (breath stacking, auto peep, hypotension, etc). Patient is in full blown ARDS needs increased levels of PEEP to help with oxygenation. Now that BP is better, if no improvement would even consider increasing PEEP if needed. Discussed with RT today. Spoke with nursing and [employer]ATT[employer]IST about feet, will obtain arterial dopplers. Hopeful there is no occlusion as given her pancytopenia, not sure that she would be a candidate for anticoagulation. Reviewed [place] Records as she was in [place] at least 3x prior to transfer here, twice during the month of January for DKA. She does have a diagnsosis of schizoaffective disorder. Could not find any meds for this. Will try some BID seroquel and see if this helps with mental state. Increases in sedation have not improved respiratory pattern. Patient did not get albumin and lasix last night but did get this am. Repeat CXR in the morning as well as ABG. If patient's alkalemia worsens would stop. Also given improvement in BP would start to wean stress dose steroids. She does have a diagnosis of HTN along with her diabetes and Dementia and Schizoaffective disorder. Also from reviewing the charts at [place], patient is/was very noncompliant with diabetic regimen so some of her mental state could be vascular disease related to uncontrolled diabetes too. Overall prognosis is guarded. 02/07/22: Family meeting today, please see my event note. albumin and lasix again this morning and then again tonight. Continue steroids. May need insulin drip. Guarded prognosis. 02/06/22: Overall prognosis continues to worsen. She did respond to albumin and lasix with good urine output. Will give again tonight. Bronch results are negative and repeat cultures are negative. CXR continues to be consistent with ARDS. This could be AIP. Now on steroids so will see how she responds. Unfortunately I was not able to meet with the family today but plan to meet with them at 11 tomorrow. appreciate heme help. Given her response to steroids BP salazar, if this is truly acute interstitial pneumonitis, may consider pulse dose steroids. Will discuss with family risks of this as well. 02/05/22: Follow up bronch results. Appreciate ID assistance and changing of abx therapy. COntinue high PEEP and small TV. Ok with permissive hypercapnea as long as pH is >7.2. Follow up heme assessment. Has Kleib in tracheal aspirate. Follow up blood cultures. Will meet with family tomorrow. Overall prognosis is guarded to poor. 02/04/22: Repeat cultures this am while she is febrile. Bronched this am and wash taken from right middle lobe. Worsening CXR is likely related to the volume given yesterday. Will consult heme today as her numbers continue to worsen. Gram Negative Rods found in Tracheal aspirate from 02/01. Follow up speciation of this as well as bronch results. Will send for fungal cultures as well. Needs art line. Stop bob and change to vasopressin. Overall prognosis is very very guarded to poor. 02/03/22: Needs repeat culture with next fever spike. concern now that she is still spiking temps on broad spec abx. may need to broaden even more with antifungal but will discuss tomorrow with pharmacy tomorrow. pH is better but worsening hypoxemia. CXR shows bilateral infiltrates. Will consider bronch tomorrow for washing to be sent for culture. Consider Heme consult tomorrow. Echo was stable. Guarded to poor prognosis. Sugar is better today. 02/02/22: Wean Vasopressors as tolerated for maps >65. Check echo. Stop insulin therapy. Q1hour fSbs and cover with sliding scale. Repeat ABG later today to follow pH. May need some diamox later. Patient now neutropenic and thrombocytopenic, repeated CBC and still the same. may need to consider heme consult. For now continue broad spec abx therapy. prognosis is guarded to poor. 2 amps of NaBicarb pushed Started on Insulin drip Central line placement secondary to lack of access Aggressive volume resuscitation q1 hour fsbs and q6 hour BMPs for the next 36-48 hours Supplemental O2 Not a candidate for bipap currently given mental state so if her respiratory status deteriorates would need intubation. Guarded prognosis. Spoke with daughter briefly at bedside. She did not get o ff her cell phone so not able to have a full conversation with her about her mother. CCT 31 minutes. Subjective Date of service: 02/14/22 Principal diagnosis: DKA, s/p cardiopulmonary arrest Interval history: Awake on Fent 1. Did well with PSV yesterday. Objective Vital Signs - 12hr 02/13/22 02/13/22 02/13/22 21:31 21:45 22:00 Temperature Pulse Rate 118 H 114 H 115 H Pulse Rate [ From Monitor] Respiratory 20 16 20 Rate Blood Pressure 107/70 107/70 109/72 O2 Sat by Pulse 100 100 100 Oximetry 02/13/22 02/13/22 02/13/22 22:15 22:31 22:45 Temperature Pulse Rate 115 H 116 H 117 H Pulse Rate [ From Monitor] Respiratory 21 19 16 Rate Blood Pressure 109/72 109/72 109/72 O2 Sat by Pulse 100 100 100 Oximetry 02/13/22 02/13/22 02/13/22 23:00 23:15 23:31 Temperature Pulse Rate 119 H 121 H 123 H Pulse Rate [ From Monitor] Respiratory 19 18 21 Rate Blood Pressure 105/73 105/73 105/73 O2 Sat by Pulse 100 99 100 Oximetry 02/13/22 02/14/22 02/14/22 23:45 00:00 00:15 Temperature 99.4 F Pulse Rate 122 H 122 H 119 H Pulse Rate [ 111 H From Monitor] Respiratory 19 22 21 Rate Blood Pressure 105/73 118/76 118/76 O2 Sat by Pulse 100 100 100 Oximetry 02/14/22 02/14/22 02/14/22 00:16 00:31 00:45 Temperature Pulse Rate 120 H 122 H 122 H Pulse Rate [ From Monitor] Respiratory 21 22 Rate Blood Pressure 118/76 118/76 118/76 O2 Sat by Pulse 99 100 100 Oximetry 02/14/22 02/14/22 02/14/22 01:00 01:15 01:31 Temperature Pulse Rate 124 H 120 H 122 H Pulse Rate [ From Monitor] Respiratory 22 22 19 Rate Blood Pressure 124/81 124/81 124/81 O2 Sat by Pulse 100 94 100 Oximetry 02/14/22 02/14/22 02/14/22 01:45 02:00 02:15 Temperature Pulse Rate 121 H 122 H 121 H Pulse Rate [ From Monitor] Respiratory 23 27 H 22 Rate Blood Pressure 124/81 121/77 121/77 O2 Sat by Pulse 100 100 100 Oximetry 02/14/22 02/14/22 02/14/22 02:31 02:45 03:00 Temperature Pulse Rate 122 H 123 H 120 H Pulse Rate [ From Monitor] Respiratory 24 24 25 H Rate Blood Pressure 121/77 121/77 116/78 O2 Sat by Pulse 100 100 100 Oximetry 02/14/22 02/14/22 02/14/22 03:15 03:31 03:45 Temperature Pulse Rate 120 H 122 H 121 H Pulse Rate [ From Monitor] Respiratory 24 26 H 25 H Rate Blood Pressure 116/78 116/78 116/78 O2 Sat by Pulse 100 100 100 Oximetry 02/14/22 02/14/22 02/14/22 04:00 04:15 04:26 Temperature 99.1 F Pulse Rate 120 H 125 H 120 H Pulse Rate [ 111 H From Monitor] Respiratory 16 25 H Rate Blood Pressure 122/75 122/75 122/75 O2 Sat by Pulse 100 96 99 Oximetry 02/14/22 02/14/22 02/14/22 04:31 04:45 05:00 Temperature Pulse Rate 119 H 116 H 118 H Pulse Rate [ From Monitor] Respiratory 15 23 23 Rate Blood Pressure 122/75 122/75 130/86 O2 Sat by Pulse 100 100 100 Oximetry 02/14/22 02/14/22 02/14/22 05:15 05:31 05:45 Temperature Pulse Rate 118 H 117 H 119 H Pulse Rate [ From Monitor] Respiratory 20 22 22 Rate Blood Pressure 130/86 130/86 130/86 O2 Sat by Pulse 100 100 99 Oximetry 02/14/22 02/14/22 02/14/22 06:00 06:15 06:31 Temperature Pulse Rate 120 H 120 H 118 H Pulse Rate [ From Monitor] Respiratory 25 H 19 20 Rate Blood Pressure 136/87 136/87 136/87 O2 Sat by Pulse 100 100 99 Oximetry 02/14/22 02/14/22 02/14/22 06:45 07:00 07:15 Temperature Pulse Rate 120 H 117 H 118 H Pulse Rate [ From Monitor] Respiratory 19 22 17 Rate Blood Pressure 136/87 135/85 135/85 O2 Sat by Pulse 100 100 100 Oximetry 02/14/22 02/14/22 02/14/22 07:31 07:45 08:00 Temperature 99.1 F Pulse Rate 123 H 117 H 118 H Pulse Rate [ 119 H From Monitor] Respiratory 17 17 22 Rate Blood Pressure 135/85 135/85 139/85 O2 Sat by Pulse 100 100 100 Oximetry 02/14/22 02/14/22 02/14/22 08:15 08:31 08:45 Temperature Pulse Rate 120 H 121 H 119 H Pulse Rate [ From Monitor] Respiratory 26 H 24 17 Rate Blood Pressure 139/85 139/85 139/85 O2 Sat by Pulse 100 100 100 Oximetry Constitutional: other (on vent, orally intubated) Eyes: non-icteric ENT: oropharynx moist Ascultation: Bilateral: diminished breath sounds Cardiovascular: regular rate and rhythm Gastrointestinal: normoactive bowel sounds Integumentary: normal Neurologic: other (on vent) Psychiatric: other (on vent) CBC and BMP: 02/14/22 04:35 02/13/22 04:00 ABG, PT/INR, D-dimer: ABG ABG pH 7.484 pH Units (7.350-7.450) H 02/14/22 04:40 POC ABG pCO2 37.3 mmHg (32.0-48.0) 02/02/22 04:49 ABG pCO2 48.8 mm Hg 02/14/22 04:40 POC ABG pO2 79.9 mmHg (83-108) L 02/02/22 04:49 ABG pO2 101.5 mm Hg (80.0-90.0) H 02/14/22 04:40 POC ABG HCO3 30.3 02/02/22 04:49 ABG O2 Saturation 97.8 % (95.0-99.0) 02/14/22 04:40 PT/INR, D-dimer PT 14.8 Sec. (12.2-14.9) 02/05/22 08:48 INR 1.02 (0.87-1.13) 02/05/22 08:48 Abnormal lab findings: Abnormal Labs 01/31/22 01/31/22 01/31/22 20:33 20:33 20:33 WBC 12.5 H RBC 6.16 H Hgb Hct MCV 61 L MCH 18 L RDW 19.6 H Plt Count Seg Neuts % (Manual) 98.0 H Lymphocytes % (Manual) 0 L Nucleated RBC % 2.0 H Seg Neutrophils # Man 12.3 H Lymphocytes # (Manual) 0.0 L Percent Retic Fibrinogen ABG pH POC ABG pO2 ABG pO2 ABG HCO3 ABG O2 Saturation ABG Base Excess ABG Hemoglobin Oxyhemoglobin Carboxyhemoglobin Sodium Potassium 5.6 H Chloride 110.1 H Carbon Dioxide 9 L* BUN Creatinine Glucose 254 H POC Glucose Hemoglobin A1c Lactic Acid 2.50 H* Calcium 10.8 H Phosphorus Magnesium Direct Bilirubin AST ALT Alkaline Phosphatase Lactate Dehydrogenase Total Protein Albumin Ur Specific [place] Urine Blood Urine WBC (Auto) Vancomycin Trough Crossmatch 01/31/22 02/01/22 02/01/22 22:49 07:34 08:22 WBC RBC Hgb Hct MCV MCH RDW Plt Count Seg Neuts % (Manual) Lymphocytes % (Manual) Nucleated RBC % Seg Neutrophils # Man Lymphocytes # (Manual) Percent Retic Fibrinogen ABG pH POC ABG pO2 ABG pO2 ABG HCO3 ABG O2 Saturation ABG Base Excess ABG Hemoglobin Oxyhemoglobin Carboxyhemoglobin Sodium Potassium 5.8 H Chloride 115.8 H Carbon Dioxide 3 L* BUN Creatinine Glucose 400 H POC Glucose 368 H Hemoglobin A1c Lactic Acid Calcium Phosphorus Magnesium Direct Bilirubin AST ALT Alkaline Phosphatase Lactate Dehydrogenase Total Protein Albumin Ur Specific [place] 1.035 H Urine Blood Small A Urine WBC (Auto) 142.0 H Vancomycin Trough Crossmatch 02/01/22 02/01/22 02/01/22 09:42 12:01 12:54 WBC RBC Hgb Hct MCV MCH RDW Plt Count Seg Neuts % (Manual) Lymphocytes % (Manual) Nucleated RBC % Seg Neutrophils # Man Lymphocytes # (Manual) Percent Retic Fibrinogen ABG pH 7.044 L* POC ABG pO2 ABG pO2 121.0 H ABG HCO3 3.7 L ABG O2 Saturation ABG Base Excess -24.8 L ABG Hemoglobin 9.3 L Oxyhemoglobin Carboxyhemoglobin Sodium Potassium Chloride Carbon Dioxide BUN Creatinine Glucose POC Glucose 382 H Hemoglobin A1c Lactic Acid Calcium Phosphorus 1.40 L Magnesium 1.30 L Direct Bilirubin AST ALT Alkaline Phosphatase Lactate Dehydrogenase Total Protein Albumin Ur Specific [place] Urine Blood Urine WBC (Auto) Vancomycin Trough Crossmatch 02/01/22 02/01/22 02/01/22 12:54 12:54 13:27 WBC RBC Hgb Hct MCV MCH RDW Plt Count Seg Neuts % (Manual) Lymphocytes % (Manual) Nucleated RBC % Seg Neutrophils # Man Lymphocytes # (Manual) Percent Retic Fibrinogen ABG pH POC ABG pO2 ABG pO2 ABG HCO3 ABG O2 Saturation ABG Base Excess ABG Hemoglobin Oxyhemoglobin Carboxyhemoglobin Sodium 148 H D Potassium 3.0 L D Chloride 117.3 H Carbon Dioxide 9 L* BUN Creatinine Glucose 439 H POC Glucose 342 H Hemoglobin A1c 11.1 H Lactic Acid Calcium 7.7 L Phosphorus Magnesium Direct Bilirubin AST ALT Alkaline Phosphatase Lactate Dehydrogenase Total Protein Albumin Ur Specific [place] Urine Blood Urine WBC (Auto) Vancomycin Trough Crossmatch 02/01/22 02/01/22 02/01/22 14:48 15:48 16:54 WBC RBC Hgb Hct MCV MCH RDW Plt Count Seg Neuts % (Manual) Lymphocytes % (Manual) Nucleated RBC % Seg Neutrophils # Man Lymphocytes # (Manual) Percent Retic Fibrinogen ABG pH POC ABG pO2 ABG pO2 ABG HCO3 ABG O2 Saturation ABG Base Excess ABG Hemoglobin Oxyhemoglobin Carboxyhemoglobin Sodium Potassium Chloride Carbon Dioxide BUN Creatinine Glucose POC Glucose 394 H 412 H 352 H Hemoglobin A1c Lactic Acid Calcium Phosphorus Magnesium Direct Bilirubin AST ALT Alkaline Phosphatase Lactate Dehydrogenase Total Protein Albumin Ur Specific [place] Urine Blood Urine WBC (Auto) Vancomycin Trough Crossmatch 02/01/22 02/01/22 02/01/22 18:23 18:53 19:26 WBC RBC Hgb Hct MCV MCH RDW Plt Count Seg Neuts % (Manual) Lymphocytes % (Manual) Nucleated RBC % Seg Neutrophils # Man Lymphocytes # (Manual) Percent Retic Fibrinogen ABG pH 7.331 L POC ABG pO2 ABG pO2 121.4 H ABG HCO3 ABG O2 Saturation ABG Base Excess -4.9 L ABG Hemoglobin 8.4 L Oxyhemoglobin Carboxyhemoglobin Sodium Potassium Chloride Carbon Dioxide BUN Creatinine Glucose POC Glucose 350 H 260 H Hemoglobin A1c Lactic Acid Calcium Phosphorus Magnesium Direct Bilirubin AST ALT Alkaline Phosphatase Lactate Dehydrogenase Total Protein Albumin Ur Specific [place] Urine Blood Urine WBC (Auto) Vancomycin Trough Crossmatch 02/01/22 02/01/22 02/01/22 20:20 21:38 22:41 WBC RBC Hgb Hct MCV MCH RDW Plt Count Seg Neuts % (Manual) Lymphocytes % (Manual) Nucleated RBC % Seg Neutrophils # Man Lymphocytes # (Manual) Percent Retic Fibrinogen ABG pH POC ABG pO2 ABG pO2 ABG HCO3 ABG O2 Saturation ABG Base Excess ABG Hemoglobin Oxyhemoglobin Carboxyhemoglobin Sodium Potassium Chloride Carbon Dioxide BUN Creatinine Glucose POC Glucose 266 H 195 H 150 H Hemoglobin A1c Lactic Acid Calcium Phosphorus Magnesium Direct Bilirubin AST ALT Alkaline Phosphatase Lactate Dehydrogenase Total Protein Albumin Ur Specific [place] Urine Blood Urine WBC (Auto) Vancomycin Trough Crossmatch 02/01/22 02/02/22 02/02/22 23:39 00:25 00:25 WBC RBC Hgb Hct MCV MCH RDW Plt Count Seg Neuts % (Manual) Lymphocytes % (Manual) Nucleated RBC % Seg Neutrophils # Man Lymphocytes # (Manual) Percent Retic Fibrinogen ABG pH POC ABG pO2 ABG pO2 ABG HCO3 ABG O2 Saturation ABG Base Excess ABG Hemoglobin Oxyhemoglobin Carboxyhemoglobin Sodium 156 H D Potassium 3.0 L Chloride 114.2 H Carbon Dioxide BUN Creatinine 0.5 L Glucose 63 L POC Glucose 125 H Hemoglobin A1c Lactic Acid 7.10 H* Calcium 8.1 L Phosphorus Magnesium Direct Bilirubin AST ALT Alkaline Phosphatase Lactate Dehydrogenase Total Protein Albumin Ur Specific [place] Urine Blood Urine WBC (Auto) Vancomycin Trough Crossmatch 02/02/22 02/02/22 02/02/22 04:00 04:00 04:35 WBC 1.4 L* RBC Hgb 8.5 L Hct 26.8 L D MCV 57 L MCH 18 L RDW 19.0 H Plt Count 129 L Seg Neuts % (Manual) 33.0 L Lymphocytes % (Manual) 57.0 H Nucleated RBC % Seg Neutrophils # Man 0.5 L Lymphocytes # (Manual) 0.8 L Percent Retic Fibrinogen ABG pH POC ABG pO2 ABG pO2 ABG HCO3 ABG O2 Saturation ABG Base Excess ABG Hemoglobin Oxyhemoglobin Carboxyhemoglobin Sodium 155 H Potassium Chloride 113.1 H Carbon Dioxide BUN Creatinine Glucose 159 H POC Glucose Hemoglobin A1c Lactic Acid 3.10 H* Calcium 7.6 L Phosphorus Magnesium Direct Bilirubin AST ALT Alkaline Phosphatase Lactate Dehydrogenase Total Protein Albumin Ur Specific [place] Urine Blood Urine WBC (Auto) Vancomycin Trough Crossmatch 02/02/22 02/02/22 02/02/22 04:37 04:49 05:43 WBC RBC Hgb Hct MCV MCH RDW Plt Count Seg Neuts % (Manual) Lymphocytes % (Manual) Nucleated RBC % Seg Neutrophils # Man Lymphocytes # (Manual) Percent Retic Fibrinogen ABG pH 7.528 H POC ABG pO2 79.9 L ABG pO2 ABG HCO3 ABG O2 Saturation ABG Base Excess ABG Hemoglobin 8.8 L Oxyhemoglobin Carboxyhemoglobin 0.2 L Sodium Potassium Chloride Carbon Dioxide BUN Creatinine Glucose POC Glucose 116 H 125 H Hemoglobin A1c Lactic Acid Calcium Phosphorus Magnesium Direct Bilirubin AST ALT Alkaline Phosphatase Lactate Dehydrogenase Total Protein Albumin Ur Specific [place] Urine Blood Urine WBC (Auto) Vancomycin Trough Crossmatch 02/02/22 02/02/22 02/02/22 06:52 09:02 09:05 WBC RBC Hgb Hct MCV MCH RDW Plt Count Seg Neuts % (Manual) Lymphocytes % (Manual) Nucleated RBC % Seg Neutrophils # Man Lymphocytes # (Manual) Percent Retic Fibrinogen ABG pH POC ABG pO2 ABG pO2 ABG HCO3 ABG O2 Saturation ABG Base Excess ABG Hemoglobin Oxyhemoglobin Carboxyhemoglobin Sodium 154 H Potassium 3.3 L Chloride 113.3 H Carbon Dioxide BUN Creatinine Glucose 35 L* POC Glucose 110 H 35 L Hemoglobin A1c Lactic Acid Calcium 7.4 L Phosphorus 1.70 L D Magnesium 2.50 H Direct Bilirubin AST ALT Alkaline Phosphatase Lactate Dehydrogenase Total Protein Albumin Ur Specific [place] Urine Blood Urine WBC (Auto) Vancomycin Trough Crossmatch 02/02/22 02/02/22 02/02/22 09:05 09:30 09:41 WBC 2.6 L RBC Hgb 8.0 L Hct 25.0 L MCV 57 L MCH 18 L RDW 18.8 H Plt Count 97 L Seg Neuts % (Manual) Lymphocytes % (Manual) 12.0 L Nucleated RBC % 10.0 H Seg Neutrophils # Man 1.7 L Lymphocytes # (Manual) 0.3 L Percent Retic Fibrinogen ABG pH POC ABG pO2 ABG pO2 ABG HCO3 ABG O2 Saturation ABG Base Excess ABG Hemoglobin Oxyhemoglobin Carboxyhemoglobin Sodium Potassium Chloride Carbon Dioxide BUN Creatinine Glucose POC Glucose 119 H Hemoglobin A1c Lactic Acid 7.10 H* Calcium Phosphorus Magnesium Direct Bilirubin AST ALT Alkaline Phosphatase Lactate Dehydrogenase Total Protein Albumin Ur Specific [place] Urine Blood Urine WBC (Auto) Vancomycin Trough Crossmatch 02/02/22 02/02/22 02/02/22 10:17 12:32 15:39 WBC RBC Hgb Hct MCV MCH RDW Plt Count Seg Neuts % (Manual) Lymphocytes % (Manual) Nucleated RBC % Seg Neutrophils # Man Lymphocytes # (Manual) Percent Retic Fibrinogen ABG pH POC ABG pO2 ABG pO2 ABG HCO3 ABG O2 Saturation ABG Base Excess ABG Hemoglobin Oxyhemoglobin Carboxyhemoglobin Sodium Potassium Chloride Carbon Dioxide BUN Creatinine Glucose POC Glucose 120 H 166 H 263 H Hemoglobin A1c Lactic Acid Calcium Phosphorus Magnesium Direct Bilirubin AST ALT Alkaline Phosphatase Lactate Dehydrogenase Total Protein Albumin Ur Specific [place] Urine Blood Urine WBC (Auto) Vancomycin Trough Crossmatch 02/02/22 02/02/22 02/02/22 17:07 17:50 Unknown WBC RBC Hgb Hct MCV MCH RDW Plt Count Seg Neuts % (Manual) Lymphocytes % (Manual) Nucleated RBC % Seg Neutrophils # Man Lymphocytes # (Manual) Percent Retic Fibrinogen ABG pH 7.457 H POC ABG pO2 ABG pO2 71.0 L ABG HCO3 ABG O2 Saturation 94.5 L ABG Base Excess ABG Hemoglobin 9.2 L Oxyhemoglobin 93.0 L Carboxyhemoglobin Sodium 147 H Potassium 5.5 H D Chloride 110.8 H Carbon Dioxide BUN Creatinine Glucose 271 H POC Glucose 231 H Hemoglobin A1c Lactic Acid Calcium 7.3 L Phosphorus Magnesium Direct Bilirubin AST ALT Alkaline Phosphatase Lactate Dehydrogenase Total Protein Albumin Ur Specific [place] Urine Blood Urine WBC (Auto) Vancomycin Trough Crossmatch 02/03/22 02/03/22 02/03/22 00:08 04:00 04:00 WBC 3.7 L RBC Hgb 8.0 L Hct 25.5 L MCV 58 L MCH 18 L RDW 18.2 H Plt Count 79 L Seg Neuts % (Manual) 76.0 H Lymphocytes % (Manual) 2.0 L Nucleated RBC % 4.0 H Seg Neutrophils # Man Lymphocytes # (Manual) 0.1 L Percent Retic Fibrinogen ABG pH POC ABG pO2 ABG pO2 ABG HCO3 ABG O2 Saturation ABG Base Excess ABG Hemoglobin Oxyhemoglobin Carboxyhemoglobin Sodium 147 H Potassium Chloride 112.9 H Carbon Dioxide BUN Creatinine Glucose 281 H POC Glucose 231 H Hemoglobin A1c Lactic Acid Calcium 7.8 L Phosphorus Magnesium Direct Bilirubin 0.3 H AST 172 H ALT 89 H Alkaline Phosphatase Lactate Dehydrogenase Total Protein 4.7 L D Albumin 2.0 L Ur Specific [place] Urine Blood Urine WBC (Auto) Vancomycin Trough Crossmatch 02/03/22 02/03/22 02/03/22 04:20 05:26 11:38 WBC RBC Hgb Hct MCV MCH RDW Plt Count Seg Neuts % (Manual) Lymphocytes % (Manual) Nucleated RBC % Seg Neutrophils # Man Lymphocytes # (Manual) Percent Retic Fibrinogen ABG pH POC ABG pO2 ABG pO2 75.5 L ABG HCO3 ABG O2 Saturation ABG Base Excess -2.8 L ABG Hemoglobin 8.1 L Oxyhemoglobin 94.6 L Carboxyhemoglobin Sodium Potassium Chloride Carbon Dioxide BUN Creatinine Glucose POC Glucose 247 H 196 H Hemoglobin A1c Lactic Acid Calcium Phosphorus Magnesium Direct Bilirubin AST ALT Alkaline Phosphatase Lactate Dehydrogenase Total Protein Albumin Ur Specific [place] Urine Blood Urine WBC (Auto) Vancomycin Trough Crossmatch 02/03/22 02/04/22 02/04/22 16:27 02:44 03:18 WBC 1.2 L* RBC Hgb 8.2 L Hct 26.6 L MCV 59 L MCH 18 L RDW 19.6 H Plt Count 50 L Seg Neuts % (Manual) Lymphocytes % (Manual) Nucleated RBC % Seg Neutrophils # Man Lymphocytes # (Manual) Percent Retic Fibrinogen ABG pH POC ABG pO2 ABG pO2 ABG HCO3 ABG O2 Saturation ABG Base Excess ABG Hemoglobin Oxyhemoglobin Carboxyhemoglobin Sodium 148 H Potassium Chloride 116.3 H Carbon Dioxide BUN Creatinine Glucose 139 H POC Glucose 119 H Hemoglobin A1c Lactic Acid Calcium Phosphorus Magnesium Direct Bilirubin 0.3 H AST 92 H ALT 76 H Alkaline Phosphatase Lactate Dehydrogenase Total Protein 4.7 L Albumin 1.6 L Ur Specific [place] Urine Blood Urine WBC (Auto) Vancomycin Trough Crossmatch 02/04/22 02/04/22 02/04/22 05:15 05:26 09:15 WBC RBC Hgb Hct MCV MCH RDW Plt Count Seg Neuts % (Manual) Lymphocytes % (Manual) Nucleated RBC % Seg Neutrophils # Man Lymphocytes # (Manual) Percent Retic Fibrinogen ABG pH 7.311 L POC ABG pO2 ABG pO2 50.1 L ABG HCO3 ABG O2 Saturation 83.6 L ABG Base Excess ABG Hemoglobin 8.6 L Oxyhemoglobin 81.9 L Carboxyhemoglobin Sodium Potassium Chloride Carbon Dioxide BUN Creatinine Glucose POC Glucose 115 H Hemoglobin A1c Lactic Acid Calcium Phosphorus Magnesium Direct Bilirubin AST ALT Alkaline Phosphatase Lactate Dehydrogenase Total Protein Albumin Ur Specific [place] Urine Blood Large A Urine WBC (Auto) 12.0 H Vancomycin Trough Crossmatch 02/04/22 02/04/22 02/04/22 11:17 14:37 17:04 WBC RBC Hgb Hct MCV MCH RDW Plt Count Seg Neuts % (Manual) Lymphocytes % (Manual) Nucleated RBC % Seg Neutrophils # Man Lymphocytes # (Manual) Percent Retic Fibrinogen ABG pH POC ABG pO2 ABG pO2 ABG HCO3 ABG O2 Saturation ABG Base Excess ABG Hemoglobin Oxyhemoglobin Carboxyhemoglobin Sodium Potassium Chloride Carbon Dioxide BUN Creatinine Glucose POC Glucose 166 H 109 H Hemoglobin A1c Lactic Acid Calcium Phosphorus Magnesium Direct Bilirubin AST 87 H ALT 75 H Alkaline Phosphatase 137 H Lactate Dehydrogenase Total Protein 4.6 L Albumin 1.7 L Ur Specific [place] Urine Blood Urine WBC (Auto) Vancomycin Trough Crossmatch 02/04/22 02/04/22 02/04/22 20:15 20:22 20:22 WBC RBC Hgb 7.1 L Hct 22.6 L MCV MCH RDW Plt Count Seg Neuts % (Manual) Lymphocytes % (Manual) Nucleated RBC % Seg Neutrophils # Man Lymphocytes # (Manual) Percent Retic Fibrinogen ABG pH 7.292 L POC ABG pO2 ABG pO2 40.3 L ABG HCO3 ABG O2 Saturation 72.1 L ABG Base Excess -2.2 L ABG Hemoglobin 7.0 L Oxyhemoglobin 70.5 L Carboxyhemoglobin Sodium Potassium Chloride Carbon Dioxide BUN Creatinine Glucose POC Glucose Hemoglobin A1c Lactic Acid 3.00 H* Calcium Phosphorus Magnesium Direct Bilirubin AST ALT Alkaline Phosphatase Lactate Dehydrogenase Total Protein Albumin Ur Specific [place] Urine Blood Urine WBC (Auto) Vancomycin Trough Crossmatch 02/04/22 02/04/22 02/05/22 20:22 23:03 04:40 WBC 3.1 L RBC Hgb 9.6 L Hct 30.1 L D MCV 64 L MCH 20 L RDW 26.9 H Plt Count 50 L Seg Neuts % (Manual) Lymphocytes % (Manual) Nucleated RBC % Seg Neutrophils # Man Lymphocytes # (Manual) Percent Retic Fibrinogen ABG pH POC ABG pO2 ABG pO2 ABG HCO3 ABG O2 Saturation ABG Base Excess ABG Hemoglobin Oxyhemoglobin Carboxyhemoglobin Sodium Potassium Chloride Carbon Dioxide BUN Creatinine Glucose POC Glucose 171 H Hemoglobin A1c Lactic Acid Calcium Phosphorus Magnesium Direct Bilirubin AST ALT Alkaline Phosphatase Lactate Dehydrogenase Total Protein Albumin Ur Specific [place] Urine Blood Urine WBC (Auto) Vancomycin Trough Crossmatch See Detail 02/05/22 02/05/22 02/05/22 04:40 04:40 04:43 WBC RBC Hgb Hct MCV MCH RDW Plt Count Seg Neuts % (Manual) Lymphocytes % (Manual) Nucleated RBC % Seg Neutrophils # Man Lymphocytes # (Manual) Percent Retic Fibrinogen ABG pH POC ABG pO2 ABG pO2 ABG HCO3 ABG O2 Saturation ABG Base Excess ABG Hemoglobin Oxyhemoglobin Carboxyhemoglobin Sodium 148 H Potassium Chloride 113.2 H Carbon Dioxide BUN 21 H Creatinine Glucose 155 H POC Glucose 156 H Hemoglobin A1c Lactic Acid Calcium Phosphorus Magnesium Direct Bilirubin AST 84 H ALT 67 H Alkaline Phosphatase 152 H Lactate Dehydrogenase 879 H Total Protein 5.0 L Albumin 1.8 L Ur Specific [place] Urine Blood Urine WBC (Auto) Vancomycin Trough Crossmatch 02/05/22 02/05/22 02/05/22 08:10 08:48 08:48 WBC RBC Hgb Hct MCV MCH RDW Plt Count Seg Neuts % (Manual) Lymphocytes % (Manual) Nucleated RBC % Seg Neutrophils # Man Lymphocytes # (Manual) Percent Retic Fibrinogen 795 H ABG pH POC ABG pO2 ABG pO2 57.1 L ABG HCO3 27.8 H ABG O2 Saturation 90.8 L ABG Base Excess ABG Hemoglobin 8.5 L Oxyhemoglobin 88.9 L Carboxyhemoglobin Sodium Potassium Chloride Carbon Dioxide BUN Creatinine Glucose POC Glucose Hemoglobin A1c Lactic Acid 2.90 H* Calcium Phosphorus Magnesium Direct Bilirubin AST ALT Alkaline Phosphatase Lactate Dehydrogenase Total Protein Albumin Ur Specific [place] Urine Blood Urine WBC (Auto) Vancomycin Trough Crossmatch 02/05/22 02/05/22 02/05/22 11:46 17:45 Unknown WBC RBC Hgb Hct MCV MCH RDW Plt Count Seg Neuts % (Manual) Lymphocytes % (Manual) Nucleated RBC % Seg Neutrophils # Man Lymphocytes # (Manual) Percent Retic Fibrinogen ABG pH POC ABG pO2 ABG pO2 ABG HCO3 ABG O2 Saturation ABG Base Excess ABG Hemoglobin Oxyhemoglobin Carboxyhemoglobin Sodium Potassium Chloride Carbon Dioxide BUN Creatinine Glucose POC Glucose 61 L 133 H Hemoglobin A1c Lactic Acid Calcium Phosphorus Magnesium Direct Bilirubin AST ALT Alkaline Phosphatase Lactate Dehydrogenase Total Protein Albumin Ur Specific [place] Urine Blood Urine WBC (Auto) Vancomycin Trough 28.6 H Crossmatch 02/05/22 02/06/22 02/06/22 23:59 04:33 04:33 WBC RBC Hgb 8.4 L Hct 26.1 L MCV 64 L MCH 21 L RDW 26.2 H Plt Count 38 L Seg Neuts % (Manual) Lymphocytes % (Manual) Nucleated RBC % Seg Neutrophils # Man Lymphocytes # (Manual) Percent Retic Fibrinogen ABG pH POC ABG pO2 ABG pO2 ABG HCO3 ABG O2 Saturation ABG Base Excess ABG Hemoglobin Oxyhemoglobin Carboxyhemoglobin Sodium 146 H Potassium 3.4 L Chloride Carbon Dioxide 31 H BUN 21 H Creatinine Glucose 230 H POC Glucose 275 H Hemoglobin A1c Lactic Acid Calcium Phosphorus Magnesium Direct Bilirubin AST 70 H ALT Alkaline Phosphatase 197 H Lactate Dehydrogenase Total Protein 5.3 L Albumin 2.4 L Ur Specific [place] Urine Blood Urine WBC (Auto) Vancomycin Trough Crossmatch 02/06/22 02/06/22 02/06/22 04:33 04:50 06:19 WBC RBC Hgb Hct MCV MCH RDW Plt Count Seg Neuts % (Manual) Lymphocytes % (Manual) Nucleated RBC % Seg Neutrophils # Man Lymphocytes # (Manual) Percent Retic Fibrinogen ABG pH 7.330 L POC ABG pO2 ABG pO2 57.9 L ABG HCO3 31.3 H ABG O2 Saturation 89.6 L ABG Base Excess 4.5 H ABG Hemoglobin 8.1 L Oxyhemoglobin 87.7 L Carboxyhemoglobin Sodium Potassium Chloride Carbon Dioxide BUN Creatinine Glucose POC Glucose 219 H Hemoglobin A1c Lactic Acid 3.10 H* Calcium Phosphorus Magnesium Direct Bilirubin AST ALT Alkaline Phosphatase Lactate Dehydrogenase Total Protein Albumin Ur Specific [place] Urine Blood Urine WBC (Auto) Vancomycin Trough Crossmatch 02/06/22 02/06/22 02/06/22 11:24 11:50 12:26 WBC RBC Hgb Hct MCV MCH RDW Plt Count Seg Neuts % (Manual) Lymphocytes % (Manual) Nucleated RBC % Seg Neutrophils # Man Lymphocytes # (Manual) Percent Retic Fibrinogen ABG pH 7.298 L POC ABG pO2 ABG pO2 43.3 L ABG HCO3 36.7 H ABG O2 Saturation 74.9 L ABG Base Excess 8.8 H ABG Hemoglobin 8.2 L Oxyhemoglobin 73.3 L Carboxyhemoglobin Sodium Potassium Chloride Carbon Dioxide BUN Creatinine Glucose POC Glucose 118 H Hemoglobin A1c Lactic Acid 2.50 H* Calcium Phosphorus Magnesium Direct Bilirubin AST ALT Alkaline Phosphatase Lactate Dehydrogenase Total Protein Albumin Ur Specific [place] Urine Blood Urine WBC (Auto) Vancomycin Trough Crossmatch 02/06/22 02/06/22 02/07/22 17:41 21:41 00:17 WBC RBC Hgb Hct MCV MCH RDW Plt Count Seg Neuts % (Manual) Lymphocytes % (Manual) Nucleated RBC % Seg Neutrophils # Man Lymphocytes # (Manual) Percent Retic Fibrinogen ABG pH POC ABG pO2 ABG pO2 ABG HCO3 ABG O2 Saturation ABG Base Excess ABG Hemoglobin Oxyhemoglobin Carboxyhemoglobin Sodium Potassium Chloride Carbon Dioxide BUN Creatinine Glucose POC Glucose 208 H 282 H 342 H Hemoglobin A1c Lactic Acid Calcium Phosphorus Magnesium Direct Bilirubin AST ALT Alkaline Phosphatase Lactate Dehydrogenase Total Protein Albumin Ur Specific [place] Urine Blood Urine WBC (Auto) Vancomycin Trough Crossmatch 02/07/22 02/07/22 02/07/22 00:19 04:12 04:12 WBC 13.1 H RBC Hgb 8.5 L Hct 26.4 L MCV 62 L MCH 20 L RDW 24.2 H Plt Count 57 L Seg Neuts % (Manual) Lymphocytes % (Manual) Nucleated RBC % Seg Neutrophils # Man Lymphocytes # (Manual) Percent Retic Fibrinogen ABG pH POC ABG pO2 ABG pO2 ABG HCO3 ABG O2 Saturation ABG Base Excess ABG Hemoglobin Oxyhemoglobin Carboxyhemoglobin Sodium 149 H Potassium 3.1 L Chloride Carbon Dioxide 38 H D BUN 23 H Creatinine Glucose 298 H POC Glucose 209 H Hemoglobin A1c Lactic Acid Calcium Phosphorus 2.10 L Magnesium Direct Bilirubin AST 49 H ALT Alkaline Phosphatase 248 H Lactate Dehydrogenase Total Protein 5.4 L Albumin 2.7 L Ur Specific [place] Urine Blood Urine WBC (Auto) Vancomycin Trough Crossmatch 02/07/22 02/07/22 02/07/22 04:40 07:09 07:13 WBC RBC Hgb Hct MCV MCH RDW Plt Count Seg Neuts % (Manual) Lymphocytes % (Manual) Nucleated RBC % Seg Neutrophils # Man Lymphocytes # (Manual) Percent Retic Fibrinogen ABG pH 7.474 H POC ABG pO2 ABG pO2 62.1 L ABG HCO3 39.1 H ABG O2 Saturation 94.7 L ABG Base Excess 13.9 H ABG Hemoglobin 8.6 L Oxyhemoglobin 93.0 L Carboxyhemoglobin Sodium Potassium Chloride Carbon Dioxide BUN Creatinine Glucose POC Glucose 399 H 418 H Hemoglobin A1c Lactic Acid Calcium Phosphorus Magnesium Direct Bilirubin AST ALT Alkaline Phosphatase Lactate Dehydrogenase Total Protein Albumin Ur Specific [place] Urine Blood Urine WBC (Auto) Vancomycin Trough Crossmatch 02/07/22 02/07/22 02/07/22 12:20 17:29 23:37 WBC RBC Hgb Hct MCV MCH RDW Plt Count Seg Neuts % (Manual) Lymphocytes % (Manual) Nucleated RBC % Seg Neutrophils # Man Lymphocytes # (Manual) Percent Retic Fibrinogen ABG pH POC ABG pO2 ABG pO2 ABG HCO3 ABG O2 Saturation ABG Base Excess ABG Hemoglobin Oxyhemoglobin Carboxyhemoglobin Sodium Potassium Chloride Carbon Dioxide BUN Creatinine Glucose POC Glucose 229 H 159 H 236 H Hemoglobin A1c Lactic Acid Calcium Phosphorus Magnesium Direct Bilirubin AST ALT Alkaline Phosphatase Lactate Dehydrogenase Total Protein Albumin Ur Specific [place] Urine Blood Urine WBC (Auto) Vancomycin Trough Crossmatch 02/08/22 02/08/22 02/08/22 03:55 03:55 05:20 WBC 14.7 H RBC Hgb 7.7 L Hct 25.0 L MCV 64 L MCH 20 L RDW 25.1 H Plt Count 79 L Seg Neuts % (Manual) Lymphocytes % (Manual) Nucleated RBC % Seg Neutrophils # Man Lymphocytes # (Manual) Percent Retic 0.65 L Fibrinogen ABG pH POC ABG pO2 ABG pO2 ABG HCO3 ABG O2 Saturation ABG Base Excess ABG Hemoglobin Oxyhemoglobin Carboxyhemoglobin Sodium Potassium 3.0 L Chloride 93.9 L Carbon Dioxide 44 H* BUN 30 H Creatinine Glucose 229 H POC Glucose 235 H Hemoglobin A1c Lactic Acid Calcium 8.3 L Phosphorus 2.30 L Magnesium Direct Bilirubin AST 77 H ALT Alkaline Phosphatase 246 H Lactate Dehydrogenase Total Protein 5.2 L Albumin 2.7 L Ur Specific [place] Urine Blood Urine WBC (Auto) Vancomycin Trough Crossmatch 02/08/22 02/08/22 02/08/22 11:47 16:36 21:41 WBC RBC Hgb Hct MCV MCH RDW Plt Count Seg Neuts % (Manual) Lymphocytes % (Manual) Nucleated RBC % Seg Neutrophils # Man Lymphocytes # (Manual) Percent Retic Fibrinogen ABG pH POC ABG pO2 ABG pO2 ABG HCO3 ABG O2 Saturation ABG Base Excess ABG Hemoglobin Oxyhemoglobin Carboxyhemoglobin Sodium Potassium Chloride Carbon Dioxide BUN Creatinine Glucose POC Glucose 193 H 205 H 292 H Hemoglobin A1c Lactic Acid Calcium Phosphorus Magnesium Direct Bilirubin AST ALT Alkaline Phosphatase Lactate Dehydrogenase Total Protein Albumin Ur Specific [place] Urine Blood Urine WBC (Auto) Vancomycin Trough Crossmatch 02/08/22 02/08/22 02/09/22 Unknown 23:59 04:00 WBC 16.4 H RBC Hgb 8.2 L Hct 26.3 L MCV 63 L MCH 20 L RDW 23.9 H Plt Count 128 L Seg Neuts % (Manual) Lymphocytes % (Manual) Nucleated RBC % Seg Neutrophils # Man Lymphocytes # (Manual) Percent Retic Fibrinogen ABG pH 7.488 H POC ABG pO2 ABG pO2 63.1 L ABG HCO3 45.5 H ABG O2 Saturation 94.1 L ABG Base Excess 19.8 H ABG Hemoglobin 8.7 L Oxyhemoglobin 92.4 L Carboxyhemoglobin Sodium Potassium Chloride Carbon Dioxide BUN Creatinine Glucose POC Glucose 342 H Hemoglobin A1c Lactic Acid Calcium Phosphorus Magnesium Direct Bilirubin AST ALT Alkaline Phosphatase Lactate Dehydrogenase Total Protein Albumin Ur Specific [place] Urine Blood Urine WBC (Auto) Vancomycin Trough Crossmatch 02/09/22 02/09/22 02/09/22 04:00 05:30 06:07 WBC RBC Hgb Hct MCV MCH RDW Plt Count Seg Neuts % (Manual) Lymphocytes % (Manual) Nucleated RBC % Seg Neutrophils # Man Lymphocytes # (Manual) Percent Retic Fibrinogen ABG pH 7.539 H POC ABG pO2 ABG pO2 210.4 H ABG HCO3 42.4 H ABG O2 Saturation 99.3 H ABG Base Excess 18.0 H ABG Hemoglobin 7.8 L Oxyhemoglobin Carboxyhemoglobin Sodium 149 H Potassium 3.1 L Chloride 97.6 L Carbon Dioxide 42 H* BUN 27 H Creatinine Glucose 257 H POC Glucose 260 H Hemoglobin A1c Lactic Acid Calcium 8.2 L Phosphorus 1.90 L Magnesium Direct Bilirubin AST 81 H ALT Alkaline Phosphatase 229 H Lactate Dehydrogenase Total Protein 5.4 L Albumin 2.6 L Ur Specific [place] Urine Blood Urine WBC (Auto) Vancomycin Trough Crossmatch 02/09/22 02/09/22 02/09/22 11:16 17:33 20:25 WBC RBC Hgb Hct MCV MCH RDW Plt Count Seg Neuts % (Manual) Lymphocytes % (Manual) Nucleated RBC % Seg Neutrophils # Man Lymphocytes # (Manual) Percent Retic Fibrinogen ABG pH 7.504 H POC ABG pO2 ABG pO2 79.7 L ABG HCO3 44.2 H ABG O2 Saturation ABG Base Excess 19.2 H ABG Hemoglobin 7.0 L Oxyhemoglobin Carboxyhemoglobin Sodium Potassium Chloride Carbon Dioxide BUN Creatinine Glucose POC Glucose 184 H 123 H Hemoglobin A1c Lactic Acid Calcium Phosphorus Magnesium Direct Bilirubin AST ALT Alkaline Phosphatase Lactate Dehydrogenase Total Protein Albumin Ur Specific [place] Urine Blood Urine WBC (Auto) Vancomycin Trough Crossmatch 02/09/22 02/09/22 02/10/22 21:16 23:13 03:40 WBC 17.2 H RBC Hgb 7.9 L Hct 25.3 L MCV 63 L MCH 20 L RDW 20.7 H Plt Count Seg Neuts % (Manual) Lymphocytes % (Manual) Nucleated RBC % Seg Neutrophils # Man Lymphocytes # (Manual) Percent Retic Fibrinogen ABG pH POC ABG pO2 ABG pO2 ABG HCO3 ABG O2 Saturation ABG Base Excess ABG Hemoglobin Oxyhemoglobin Carboxyhemoglobin Sodium Potassium Chloride Carbon Dioxide BUN Creatinine Glucose POC Glucose 186 H 276 H Hemoglobin A1c Lactic Acid Calcium Phosphorus Magnesium Direct Bilirubin AST ALT Alkaline Phosphatase Lactate Dehydrogenase Total Protein Albumin Ur Specific [place] Urine Blood Urine WBC (Auto) Vancomycin Trough Crossmatch 02/10/22 02/10/22 02/10/22 03:40 04:17 04:17 WBC RBC Hgb Hct MCV MCH RDW Plt Count Seg Neuts % (Manual) Lymphocytes % (Manual) Nucleated RBC % Seg Neutrophils # Man Lymphocytes # (Manual) Percent Retic Fibrinogen ABG pH 7.468 H POC ABG pO2 ABG pO2 124.2 H ABG HCO3 42.1 H ABG O2 Saturation ABG Base Excess 16.6 H ABG Hemoglobin 7.6 L Oxyhemoglobin Carboxyhemoglobin Sodium 149 H Potassium 3.2 L Chloride Carbon Dioxide 38 H BUN 26 H Creatinine 0.5 L Glucose 188 H POC Glucose 189 H Hemoglobin A1c Lactic Acid Calcium 8.3 L Phosphorus 2.10 L Magnesium Direct Bilirubin AST 120 H ALT 80 H Alkaline Phosphatase 207 H Lactate Dehydrogenase Total Protein 5.3 L Albumin 2.4 L Ur Specific [place] Urine Blood Urine WBC (Auto) Vancomycin Trough Crossmatch 02/10/22 02/10/22 02/10/22 11:46 16:27 21:15 WBC RBC Hgb Hct MCV MCH RDW Plt Count Seg Neuts % (Manual) Lymphocytes % (Manual) Nucleated RBC % Seg Neutrophils # Man Lymphocytes # (Manual) Percent Retic Fibrinogen ABG pH POC ABG pO2 ABG pO2 ABG HCO3 ABG O2 Saturation ABG Base Excess ABG Hemoglobin Oxyhemoglobin Carboxyhemoglobin Sodium Potassium Chloride Carbon Dioxide BUN Creatinine Glucose POC Glucose 189 H 198 H 261 H Hemoglobin A1c Lactic Acid Calcium Phosphorus Magnesium Direct Bilirubin AST ALT Alkaline Phosphatase Lactate Dehydrogenase Total Protein Albumin Ur Specific [place] Urine Blood Urine WBC (Auto) Vancomycin Trough Crossmatch 02/10/22 02/11/22 02/11/22 23:20 04:00 04:00 WBC 20.8 H RBC Hgb 7.7 L Hct 24.5 L MCV 64 L MCH 20 L RDW 23.5 H Plt Count Seg Neuts % (Manual) Lymphocytes % (Manual) Nucleated RBC % Seg Neutrophils # Man Lymphocytes # (Manual) Percent Retic Fibrinogen ABG pH POC ABG pO2 ABG pO2 ABG HCO3 ABG O2 Saturation ABG Base Excess ABG Hemoglobin Oxyhemoglobin Carboxyhemoglobin Sodium 148 H Potassium 3.3 L Chloride Carbon Dioxide 39 H BUN 27 H Creatinine 0.5 L Glucose 218 H POC Glucose 196 H Hemoglobin A1c Lactic Acid Calcium 8.3 L Phosphorus Magnesium Direct Bilirubin AST ALT Alkaline Phosphatase Lactate Dehydrogenase Total Protein Albumin Ur Specific [place] Urine Blood Urine WBC (Auto) Vancomycin Trough Crossmatch 02/11/22 02/11/22 02/11/22 05:00 05:57 11:15 WBC RBC Hgb Hct MCV MCH RDW Plt Count Seg Neuts % (Manual) Lymphocytes % (Manual) Nucleated RBC % Seg Neutrophils # Man Lymphocytes # (Manual) Percent Retic Fibrinogen ABG pH 7.459 H POC ABG pO2 ABG pO2 99.8 H ABG HCO3 41.4 H ABG O2 Saturation ABG Base Excess 15.9 H ABG Hemoglobin 7.5 L Oxyhemoglobin Carboxyhemoglobin Sodium Potassium Chloride Carbon Dioxide BUN Creatinine Glucose POC Glucose 173 H 204 H Hemoglobin A1c Lactic Acid Calcium Phosphorus Magnesium Direct Bilirubin AST ALT Alkaline Phosphatase Lactate Dehydrogenase Total Protein Albumin Ur Specific [place] Urine Blood Urine WBC (Auto) Vancomycin Trough Crossmatch 02/11/22 02/11/22 02/12/22 17:15 21:21 00:29 WBC RBC Hgb Hct MCV MCH RDW Plt Count Seg Neuts % (Manual) Lymphocytes % (Manual) Nucleated RBC % Seg Neutrophils # Man Lymphocytes # (Manual) Percent Retic Fibrinogen ABG pH POC ABG pO2 ABG pO2 ABG HCO3 ABG O2 Saturation ABG Base Excess ABG Hemoglobin Oxyhemoglobin Carboxyhemoglobin Sodium Potassium Chloride Carbon Dioxide BUN Creatinine Glucose POC Glucose 157 H 183 H 197 H Hemoglobin A1c Lactic Acid Calcium Phosphorus Magnesium Direct Bilirubin AST ALT Alkaline Phosphatase Lactate Dehydrogenase Total Protein Albumin Ur Specific [place] Urine Blood Urine WBC (Auto) Vancomycin Trough Crossmatch 02/12/22 02/12/22 02/12/22 04:17 04:17 05:00 WBC 23.9 H RBC Hgb 7.5 L Hct 24.2 L MCV 64 L MCH 20 L RDW 25.5 H Plt Count Seg Neuts % (Manual) Lymphocytes % (Manual) Nucleated RBC % Seg Neutrophils # Man Lymphocytes # (Manual) Percent Retic Fibrinogen ABG pH 7.467 H POC ABG pO2 ABG pO2 97.9 H ABG HCO3 40.7 H ABG O2 Saturation ABG Base Excess 15.3 H ABG Hemoglobin 7.5 L Oxyhemoglobin Carboxyhemoglobin Sodium 146 H Potassium Chloride Carbon Dioxide 39 H BUN 25 H Creatinine 0.4 L Glucose 135 H POC Glucose Hemoglobin A1c Lactic Acid Calcium Phosphorus Magnesium Direct Bilirubin AST ALT Alkaline Phosphatase Lactate Dehydrogenase Total Protein Albumin Ur Specific [place] Urine Blood Urine WBC (Auto) Vancomycin Trough Crossmatch 02/12/22 02/12/22 02/12/22 05:53 12:31 17:54 WBC RBC Hgb Hct MCV MCH RDW Plt Count Seg Neuts % (Manual) Lymphocytes % (Manual) Nucleated RBC % Seg Neutrophils # Man Lymphocytes # (Manual) Percent Retic Fibrinogen ABG pH POC ABG pO2 ABG pO2 ABG HCO3 ABG O2 Saturation ABG Base Excess ABG Hemoglobin Oxyhemoglobin Carboxyhemoglobin Sodium Potassium Chloride Carbon Dioxide BUN Creatinine Glucose POC Glucose 114 H 124 H 159 H Hemoglobin A1c Lactic Acid Calcium Phosphorus Magnesium Direct Bilirubin AST ALT Alkaline Phosphatase Lactate Dehydrogenase Total Protein Albumin Ur Specific [place] Urine Blood Urine WBC (Auto) Vancomycin Trough Crossmatch 02/12/22 02/13/22 02/13/22 22:09 03:40 04:00 WBC 23.6 H RBC 3.42 L Hgb 6.7 L Hct 21.7 L MCV 64 L MCH 20 L RDW 27.3 H Plt Count Seg Neuts % (Manual) Lymphocytes % (Manual) Nucleated RBC % Seg Neutrophils # Man Lymphocytes # (Manual) Percent Retic Fibrinogen ABG pH 7.465 H POC ABG pO2 ABG pO2 104.3 H ABG HCO3 39.4 H ABG O2 Saturation ABG Base Excess 14.3 H ABG Hemoglobin 6.7 L Oxyhemoglobin Carboxyhemoglobin Sodium Potassium Chloride Carbon Dioxide BUN Creatinine Glucose POC Glucose 160 H Hemoglobin A1c Lactic Acid Calcium Phosphorus Magnesium Direct Bilirubin AST ALT Alkaline Phosphatase Lactate Dehydrogenase Total Protein Albumin Ur Specific [place] Urine Blood Urine WBC (Auto) Vancomycin Trough Crossmatch 02/13/22 02/13/22 02/13/22 04:00 06:05 09:41 WBC RBC Hgb Hct MCV MCH RDW Plt Count Seg Neuts % (Manual) Lymphocytes % (Manual) Nucleated RBC % Seg Neutrophils # Man Lymphocytes # (Manual) Percent Retic Fibrinogen ABG pH POC ABG pO2 ABG pO2 ABG HCO3 ABG O2 Saturation ABG Base Excess ABG Hemoglobin Oxyhemoglobin Carboxyhemoglobin Sodium 146 H Potassium Chloride Carbon Dioxide 38 H BUN 25 H Creatinine 0.4 L Glucose 235 H POC Glucose 283 H Hemoglobin A1c Lactic Acid Calcium 8.0 L Phosphorus Magnesium Direct Bilirubin AST ALT 58 H Alkaline Phosphatase 143 H Lactate Dehydrogenase Total Protein 4.7 L Albumin 2.2 L Ur Specific [place] Urine Blood Urine WBC (Auto) Vancomycin Trough Crossmatch See Detail 02/13/22 02/13/22 02/13/22 11:37 18:30 21:47 WBC RBC Hgb Hct MCV MCH RDW Plt Count Seg Neuts % (Manual) Lymphocytes % (Manual) Nucleated RBC % Seg Neutrophils # Man Lymphocytes # (Manual) Percent Retic Fibrinogen ABG pH POC ABG pO2 ABG pO2 ABG HCO3 ABG O2 Saturation ABG Base Excess ABG Hemoglobin Oxyhemoglobin Carboxyhemoglobin Sodium Potassium Chloride Carbon Dioxide BUN Creatinine Glucose POC Glucose 132 H 187 H 279 H Hemoglobin A1c Lactic Acid Calcium Phosphorus Magnesium Direct Bilirubin AST ALT Alkaline Phosphatase Lactate Dehydrogenase Total Protein Albumin Ur Specific [place] Urine Blood Urine WBC (Auto) Vancomycin Trough Crossmatch 02/14/22 02/14/22 02/14/22 01:07 04:35 04:40 WBC 24.5 H RBC Hgb 9.4 L Hct 28.8 L D MCV 69 L MCH 23 L RDW 30.3 H Plt Count Seg Neuts % (Manual) Lymphocytes % (Manual) Nucleated RBC % Seg Neutrophils # Man Lymphocytes # (Manual) Percent Retic Fibrinogen ABG pH 7.484 H POC ABG pO2 ABG pO2 101.5 H ABG HCO3 35.8 H ABG O2 Saturation ABG Base Excess 11.1 H ABG Hemoglobin 9.4 L Oxyhemoglobin Carboxyhemoglobin Sodium Potassium Chloride Carbon Dioxide BUN Creatinine Glucose POC Glucose 267 H Hemoglobin A1c Lactic Acid Calcium Phosphorus Magnesium Direct Bilirubin AST ALT Alkaline Phosphatase Lactate Dehydrogenase Total Protein Albumin Ur Specific [place] Urine Blood Urine WBC (Auto) Vancomycin Trough Crossmatch 02/14/22 06:16 WBC RBC Hgb Hct MCV MCH RDW Plt Count Seg Neuts % (Manual) Lymphocytes % (Manual) Nucleated RBC % Seg Neutrophils # Man Lymphocytes # (Manual) Percent Retic Fibrinogen ABG pH POC ABG pO2 ABG pO2 ABG HCO3 ABG O2 Saturation ABG Base Excess ABG Hemoglobin Oxyhemoglobin Carboxyhemoglobin Sodium Potassium Chloride Carbon Dioxide BUN Creatinine Glucose POC Glucose 183 H Hemoglobin A1c Lactic Acid Calcium Phosphorus Magnesium Direct Bilirubin AST ALT Alkaline Phosphatase Lactate Dehydrogenase Total Protein Albumin Ur Specific [place] Urine Blood Urine WBC (Auto) Vancomycin Trough Crossmatch
[2022-02-14 09:36] LABS: Blood Urea Nitrogen 20 mg/dL (7-17); Calcium 8.3 mg/dL (8.4-10.2); Hemolysis Index 7
[2022-02-14 09:38] LABS: BUN/Creatinine Ratio 50
--- NOTE | 2022-02-14 11:04 | Progress Note ---
Assessment and Plan Cultures: 01/31/2022 blood culture: No growth 02/01/2022 tracheal aspirate culture: Klebsiella pneumoniae COVID-19 PCR: Negative 02/04/2022 blood culture: no growth so far 02/04/2022 urine culture: No growth 02/04/2022 fungal blood culture: no growth so far A/P: 61-year-old female was admitted from [facility] with hypoglycemia: #Refractory septic shock, severe acidosis, s/p PEA arrest on 02/01/2022. #Bilateral pneumonia: Probably aspiration following PEA arrest. Initial chest x -ray did not show any pneumonia. Now with severe b/l pneumonia, treated with abx. #Possible UTI: UA showed pyuria #Acute hypoxic respiratory failure with ARDS: On mechanical ventilation. Improving #Diabetic ketoacidosis on admission #Pancytopenia, neutropenia, thrombocytopenia: ?sepsis. Seen by hematology. HIV negative. Gradually improving. Recs: -Monitor leukocytosis, on steroids, and some from ischemic toes, continue off antibiotics -Consider removing central line soon Doroteo Morales MD, FACP, [facility] ([facility]) O: [phone] F: [phone] C: [phone] Subjective Date of service: 02/14/22 Principal diagnosis: DKA, s/p cardiopulmonary arrest Interval history: Extubated today. Afebrile. Drowsy. Objective - Exam Narrative Exam: Physical Exam: Constitutional: Awake, no distress Head, Ears, Nose: Normocephalic, atraumatic. External ears, nose normal Eyes: Conjunctivae/corneas clear. No icterus. No ptosis. Neck: Supple, no meningeal signs Cardiovascular: S1, S2 + Respiratory: Good air entry, clear to auscultation bilaterally GI: Soft, non-tender; bowel sounds normal. No peritoneal signs Musculoskeletal: No pedal edema, no cyanosis. Skin: No rash or abscess Hem/Lymphatic: No palpable cervical or supraclavicular nodes. No lymphangitis Psych: Calm Neurological: Awake - Constitutional Vitals: Vital Signs Temp Pulse Resp BP Pulse Ox 99.1 F 125 H 20 132/73 97 02/14/22 08:00 02/14/22 10:15 02/14/22 10:00 02/14/22 10:15 02/14/22 10:15 Temperature -Last 24 Hours Temperature 99.1 F Temperature 99.1 F Temperature 99.4 F Temperature 99.3 F Temperature 99.7 F Temperature 98.2 F Temperature 98.2 F Temperature 98.2 F - Labs CBC & Chem 7: 02/14/22 04:35 02/14/22 09:03 Labs: Abnormal lab results 02/04/22 02/13/22 02/13/22 Range/Units 20:22 06:05 09:41 WBC (4.5-11.0) K/mm3 Hgb (10.1-14.3) gm/dl Hct (30.3-42.9) % MCV (79-97) fl MCH (28-32) pg RDW (13.2-15.2) % ABG pH (7.350-7.450) pH Units ABG pO2 (80.0-90.0) mm Hg ABG HCO3 (20.0-26.0) mmol/L ABG Base Excess (-2.0-3.0) mmol/L ABG Hemoglobin (12.0-16.0) gm/dl Carbon Dioxide (22-30) mmol/L BUN (7-17) mg/dL Creatinine (0.6-1.2) mg/dL Glucose (65-100) mg/dL POC Glucose 283 H (70-105) mg/dL Calcium (8.4-10.2) mg/dL Crossmatch See Detail See Detail 02/13/22 02/13/22 02/13/22 Range/Units 11:37 18:30 21:47 WBC (4.5-11.0) K/mm3 Hgb (10.1-14.3) gm/dl Hct (30.3-42.9) % MCV (79-97) fl MCH (28-32) pg RDW (13.2-15.2) % ABG pH (7.350-7.450) pH Units ABG pO2 (80.0-90.0) mm Hg ABG HCO3 (20.0-26.0) mmol/L ABG Base Excess (-2.0-3.0) mmol/L ABG Hemoglobin (12.0-16.0) gm/dl Carbon Dioxide (22-30) mmol/L BUN (7-17) mg/dL Creatinine (0.6-1.2) mg/dL Glucose (65-100) mg/dL POC Glucose 132 H 187 H 279 H (70-105) mg/dL Calcium (8.4-10.2) mg/dL Crossmatch 02/14/22 02/14/22 02/14/22 Range/Units 01:07 04:35 04:40 WBC 24.5 H (4.5-11.0) K/mm3 Hgb 9.4 L (10.1-14.3) gm/dl Hct 28.8 L D (30.3-42.9) % MCV 69 L (79-97) fl MCH 23 L (28-32) pg RDW 30.3 H (13.2-15.2) % ABG pH 7.484 H (7.350-7.450) pH Units ABG pO2 101.5 H (80.0-90.0) mm Hg ABG HCO3 35.8 H (20.0-26.0) mmol/L ABG Base Excess 11.1 H (-2.0-3.0) mmol/L ABG Hemoglobin 9.4 L (12.0-16.0) gm/dl Carbon Dioxide (22-30) mmol/L BUN (7-17) mg/dL Creatinine (0.6-1.2) mg/dL Glucose (65-100) mg/dL POC Glucose 267 H (70-105) mg/dL Calcium (8.4-10.2) mg/dL Crossmatch 02/14/22 02/14/22 Range/Units 06:16 09:03 WBC (4.5-11.0) K/mm3 Hgb (10.1-14.3) gm/dl Hct (30.3-42.9) % MCV (79-97) fl MCH (28-32) pg RDW (13.2-15.2) % ABG pH (7.350-7.450) pH Units ABG pO2 (80.0-90.0) mm Hg ABG HCO3 (20.0-26.0) mmol/L ABG Base Excess (-2.0-3.0) mmol/L ABG Hemoglobin (12.0-16.0) gm/dl Carbon Dioxide 39 H (22-30) mmol/L BUN 20 H (7-17) mg/dL Creatinine 0.4 L (0.6-1.2) mg/dL Glucose 144 H (65-100) mg/dL POC Glucose 183 H (70-105) mg/dL Calcium 8.3 L (8.4-10.2) mg/dL Crossmatch
--- NOTE | 2022-02-14 13:55 | Progress Note ---
Assessment and Plan Patient is a 61-year-old female brought to the ED from a [facility]pc due to altered mental status. Patient found to be in DKA and have cardiopulmonary S/p cardiopulmonary arrest Acute respiratory failure-pulmonology following DKA Sepsis-ID following SVT Hypotension [id number] following Echo 02/02/2022-EF 55 to 60%. Left ventricular diastolic function is normal. Right ventricular systolic function is mildly reduced. Left and right atria normal in size. No pericardial effusion Plan: PPatient extubated today Patient is s/p cardiopulmonary arrest however previous rhythm unknown/ suspected to be PEA Telemetry reviewed patient remains in sinus tach no further episodes of SVT Patient has normal EF on echo. Will consider ischemic eval as an outpatient Cardiac status otherwise stable. Will see as needed Patient may follow up as an outpatient with Dr. De Los Santos, [facility], 1-2weeks after discharge. Phone number [phone] Patient seen in conjunction with who agrees with this plan of care - Patient Problems (1) SVT (supraventricular tachycardia) Current Visit: Yes Status: Acute (2) Acute respiratory failure Current Visit: Yes Status: Acute Qualifiers: Respiratory failure complication: hypoxia Qualified Code(s): J96.01 - Acute respiratory failure with hypoxia (3) Cardiopulmonary arrest with successful resuscitation Current Visit: Yes Status: Acute (4) Hypotension Current Visit: Yes Status: Acute (5) Pancytopenia Current Visit: Yes Status: Acute (6) Sepsis Current Visit: Yes Status: Acute Subjective Date of service: 02/14/22 Principal diagnosis: DKA, s/p cardiopulmonary arrest Interval history: Patient extubated this AM Sinus tach 120s no events on monitor Objective Vital Signs Temp Pulse Pulse Resp BP Pulse Ox 02/14/22 12:15 123 H 30 H 122/81 98 02/14/22 12:00 98.9 F 123 H 123 H 38 H 122/81 99 02/14/22 11:45 122 H 25 H 125/76 99 02/14/22 11:31 124 H 39 H 125/76 98 02/14/22 11:15 124 H 36 H 125/76 98 02/14/22 11:00 123 H 30 H 125/76 99 02/14/22 10:45 123 H 25 H 132/73 97 02/14/22 10:31 123 H 28 H 132/73 95 02/14/22 10:15 121 H 24 132/73 100 02/14/22 10:00 125 H 20 132/73 100 02/14/22 09:50 119 H 139/85 100 02/14/22 09:45 126 H 23 151/93 100 02/14/22 09:31 125 H 20 151/93 100 02/14/22 09:15 124 H 20 151/93 100 02/14/22 09:00 123 H 13 151/93 97 02/14/22 08:45 119 H 17 139/85 100 02/14/22 08:31 121 H 24 139/85 100 02/14/22 08:15 120 H 26 H 139/85 100 02/14/22 08:00 99.1 F 118 H 119 H 22 139/85 100 02/14/22 07:45 117 H 17 135/85 100 02/14/22 07:31 123 H 17 135/85 100 02/14/22 07:15 118 H 17 135/85 100 02/14/22 07:00 117 H 22 135/85 100 02/14/22 06:45 120 H 19 136/87 100 02/14/22 06:31 118 H 20 136/87 99 02/14/22 06:15 120 H 19 136/87 100 02/14/22 06:00 120 H 25 H 136/87 100 02/14/22 05:45 119 H 22 130/86 99 02/14/22 05:31 117 H 22 130/86 100 02/14/22 05:15 118 H 20 130/86 100 02/14/22 05:00 118 H 23 130/86 100 02/14/22 04:45 116 H 23 122/75 100 02/14/22 04:31 119 H 15 122/75 100 02/14/22 04:26 120 H 122/75 99 02/14/22 04:15 125 H 25 H 122/75 96 02/14/22 04:00 99.1 F 120 H 111 H 16 122/75 100 02/14/22 03:45 121 H 25 H 116/78 100 02/14/22 03:31 122 H 26 H 116/78 100 02/14/22 03:15 120 H 24 116/78 100 02/14/22 03:00 120 H 25 H 116/78 100 02/14/22 02:45 123 H 24 121/77 100 02/14/22 02:31 122 H 24 121/77 100 02/14/22 02:15 121 H 22 121/77 100 02/14/22 02:00 122 H 27 H 121/77 100 02/14/22 01:45 121 H 23 124/81 100 02/14/22 01:31 122 H 19 124/81 100 02/14/22 01:15 120 H 22 124/81 94 02/14/22 01:00 124 H 22 124/81 100 02/14/22 00:45 122 H 22 118/76 100 02/14/22 00:31 122 H 21 118/76 100 02/14/22 00:16 120 H 118/76 99 02/14/22 00:15 119 H 21 118/76 100 02/14/22 00:00 99.4 F 122 H 111 H 22 118/76 100 02/13/22 23:45 122 H 19 105/73 100 02/13/22 23:31 123 H 21 105/73 02/13/22 23:15 121 H 18 105/73 99 02/13/22 23:00 119 H 19 105/73 100 02/13/22 22:45 117 H 16 109/72 100 02/13/22 22:31 116 H 19 109/72 02/13/22 22:15 115 H 21 109/72 02/13/22 22:00 115 H 20 109/72 100 02/13/22 21:45 114 H 16 107/70 100 02/13/22 21:31 118 H 20 107/70 100 02/13/22 21:25 116 H 20 107/70 100 02/13/22 21:15 117 H 22 107/70 100 02/13/22 21:00 115 H 20 107/70 100 02/13/22 20:45 116 H 20 104/73 100 02/13/22 20:31 115 H 17 104/73 100 02/13/22 20:15 126 H 19 104/73 100 02/13/22 20:00 99.3 F 117 H 111 H 16 117/75 100 02/13/22 19:46 110 H 21 104/73 100 02/13/22 19:31 114 H 20 104/73 100 02/13/22 19:15 112 H 21 104/73 100 02/13/22 19:00 115 H 23 104/73 100 02/13/22 18:45 114 H 20 109/67 100 02/13/22 18:31 117 H 23 109/67 99 02/13/22 18:15 111 H 20 109/67 99 02/13/22 18:00 110 H 20 109/67 100 02/13/22 17:45 115 H 23 105/68 100 02/13/22 17:31 115 H 20 105/68 100 02/13/22 17:15 111 H 17 105/68 99 02/13/22 17:00 109 H 23 105/68 100 02/13/22 16:45 116 H 21 103/70 100 02/13/22 16:41 111 H 117/70 97 02/13/22 16:31 107 H 21 103/70 100 02/13/22 16:15 106 H 19 103/70 100 02/13/22 16:00 99.7 F H 111 H 111 H 16 103/70 100 02/13/22 15:45 108 H 22 106/74 02/13/22 15:31 110 H 22 106/74 02/13/22 15:28 109 H 02/13/22 15:15 111 H 17 106/74 02/13/22 15:00 114 H 21 106/74 02/13/22 14:45 113 H 20 114/73 100 02/13/22 14:31 106 H 17 114/73 02/13/22 14:15 105 H 17 114/73 02/13/22 14:00 106 H 20 114/73 - Physical Examination General: Other (Intubated and sedated) HEENT: Positive: Normocephaly, Mucus Membranes Moist Neck: Positive: neck supple, trachea midline Cardiac: Positive: Regular Rhythm, Tachycardia Lungs: Positive: Decreased Breath Sounds Neuro: Positive: Other (patient appears with AMS) Abdomen: Positive: Soft, Active Bowel Sounds Skin: Negative: Rash Musculoskeletal: No Fluid Collection Extremities: Absent: edema - Labs and Meds CBC 02/14/22 Range/Units 04:35 WBC 24.5 H (4.5-11.0) K/mm3 RBC 4.19 (3.65-5.03) M/mm3 Hgb 9.4 L (10.1-14.3) gm/dl Hct 28.8 L D (30.3-42.9) % Plt Count 379 (140-440) K/mm3 Comprehensive Metabolic Panel 02/14/22 Range/Units 09:03 Sodium 145 (137-145) mmol/L Potassium 4.0 (3.6-5.0) mmol/L Chloride 101.4 (98-107) mmol/L Carbon Dioxide 39 H (22-30) mmol/L BUN 20 H (7-17) mg/dL Creatinine 0.4 L (0.6-1.2) mg/dL Glucose 144 H (65-100) mg/dL Calcium 8.3 L (8.4-10.2) mg/dL - Imaging and Cardiology Echo: report reviewed - Telemetry EKG Rhythm: Sinus Tachycardia - EKG Sinus rhythms and dysrhythmias: sinus tachycardia Myocardial infarction: septal RI (old age or ind
--- NOTE | 2022-02-14 15:03 | Progress Note ---
<RADHA GONZALEZ - Last Filed: 02/14/22 14:59> Assessment and Plan Assessment and plan: This is a 61 year old female with DM, Dementia, HLD, HTN admitted with DKA s/p cardiac arrest on 02/01 Neuro: Acute metabolic encephalopathy, h/o dementia -Neurology consulted, appreciate recommendations -Serouqel bid -Fentanyl gtt-> dc post extubation -RASS goal 0 to -1 -Reorientation as needed -As needed analgesia Cardiac: s/p PEA cardiac arrest on 02/01, SVT, h/o HLD and HTN -Cardiology consulted, appreciate recommendations -s/p cardiac arrest on 02/01 -Blood pressure monitoring per protocol -s/p Vasopressor support with Levophed -MAP goal greater than 65 -Echocardiogram LVEF 55 to 60% Respiratory: Acute hypoxic respiratory failure, ARDS -[facility] consulted, appreciate recommendations -Intubated on 02/01 with 7.0 OETT at 21 at the [facility] -A.m. vent settings: PSV 14/6 -Extubated today to NC -Currently on HFNC -02/04 s/p Bronchoscopy at the bedside by [facility] -A.m. ABG and CXR noted -VAP bundle -SPO2 monitoring GI: Mod protein venu malnutrition, transaminitis (resolving) -24 hours + 1986 mL -PPI -NTR consulted for tube feedings -BR: Senokot S : NAD -FWF 250 q4 for 1 day then decrease -Monitor intake and output -Renally dose medications -Avoid nephrotoxic medications -s/p bicarbonate drip -Trend BMP ID: Sepsis, UTI, lactic acidosis -Presented with tachycardia, leukocytosis, pyuria on UA developed pancytopenia, hypotension, tachycardia -Infectious disease consulted, appreciate recommendations -s/p antibiotic therapy with rocephin -UA consistent with pyuria, Blood cultures with NGTD -Sputum culture with Klebsiella Pneumoniae -covid pcr (-) -f/u blood culture -Monitor WBC and temperature curve Endo: s/p DKA, h/o DM -Presented with severe metabolic acidosis, blood glucose in 300s -s/p insulin drip -Avoid hypoglycemia -Hemoglobin A1c 11.1 -SSI -Accu-Cheks q. every 6 -Long-acting insulin, titrate as needed Heme: Anemia, BLE ischemia -Hem/onc and vascular surgery consulted, appreciate recommendations -Bilateral lower extremity ultrasound negative for DVT -Bilateral lower extremity arterial duplex shows multifocal arthrosclerotic disease throughout bilateral lower extremities, transition into biphasic and mo nophasic waveforms bilaterally suggesting hemodynamically significant narrowing of each respective segment, no arterial occlusion or other proximal flow limiting stenosis -Recommend Plavix but will delay in setting of anemia -Trend CBC -s/p 2 unit PRBC -Transfuse hemoglobin less than 7 -SCDs to BLE while in bed The high probability of a clinically significant, sudden or life threatening deterioration of the [multi] system(s) required my full and direct attention, intervention and personal management. The aggregate critical care time was [60] minutes. This time is in addition to time spent performing reported procedures but includes the following: [x] Data Review and interpretation [x] Patient assessment and monitoring of vital signs [x] Documentation [x] Medication orders and management Disposition Plan: icu Total Time Spent with Patient (Minutes): 60 History Interval history: This is a 61-year-old female is a resident of a alf with DM,, dementia (possibly Wernickes per daughter), hyperlipidemia, and hypertension who presents to the hospital on 01/31 from [facility] for hypoglycemia. In the ED patient was found to be tachycardic, tachypneic and lab work showed hyperkalemia, hyperchloremia, high anion gap metabolic acidosis with leukocytosis and UA showed pyuria. Patient was admitted to the hospitalist service. Hospital course to date: 02/01: patient was transferred to ICU as lab work was consistent with DKA and started on insulin drip. Central line placed for IV access. Patient was given bicarb push and started on a bicarb drip. She was also started on Rocephin due to UTI however antibiotics are broadened to cefepime and vancomycin. 02/02: s/p cardiac arrest on 02/01. Bicarbonate drip discontinued. Pancytopenia noted, anion gap closed and transitioned to SSI and long-acting insulin. Patient was having hypoglycemia this morning which has been corrected now. Started on tube feeding. Potassium and phosphorus will be repleted. Hypernatremia noted and FWF started with tube feedings. COVID-19 PCR pending. Venous Doppler ultrasound pending. Neurology and cardiology consulted. Echocardiogram pending. Patient currently on Levophed and sedated with propofol. Fentanyl added. Given 1 LR bolus this morning for hypotension. 02/03: LR bolus x2, remains on levophed, tachycardia and EKG completed which shows tachycardia. Increase in FiO2, Will culture with next temp spike. Will give 1 gm Calcium Gluconate. 02/04: S/p Bronch this am by CCM at the bedside. Patient still spiking high temp despite broad spectrum IV Abx. Remains on high pressors with worsen neutropenia and thrombocytopenia. Will panculture this am, antifungal culture was also ordered. Continue current empiric IV Abx for now, awaiting sensitivity. Will also consult ID for further eval. Possible Hematology consult for pancytopenia per CCM. Possible family meeting with [facility] this week, case management to arrange. 02/05: Back up on full support on the vent. CXR with worsen bilateral opacities, S/p X1 dose of IV lasix. Patient also received 1units of PRBCs overnight due to anemia, H&H stable this am and no s/s of any active bleeding. Patient remains pancytopenic, still febrile. IV abx changed to Merrem and Vanc per ID, hematology consult pending. ST with episodes of SVT this am, plan for amiodarone gtt per Cardio. Off pressors this am. BP remains boderline, 25% IV Albumin and X1 dose of additional IV lasix gain today per CCM. Continue FWF for hypernatremia. Lantus adjusted due to hypoglycemia. Possible family meeting tomorrow with [facility]. 02/06: Decompensated this am, sudden drop in SPO2 in the 80s, HR in the 50s, and MAP in the 40s. Back on 2 pressors, on 100% FIO2 and 12 of peep. Stat ABG pending, 1amp Bcarb given, stress dose steroids initiated. This an CXR reviewed with worsen opacities from prior. Patient remains on IV abx per ID. Hematology recommendations appreciated. Event discussed with CCM who agreed with current intervention. Patient's daughter and sister were notified via phone. Current events, patient's diagnosis, overal condition, and poor prognosis were thoroughly discussed. GOC was also addressed with patient's daughter and sister, they voiced that if patient was able to speak for herself she would want all lifesaving measures, including CPR and medications if her heart stop. All questions and concerns were addressed at this time. They verbalized understanding and agreed with current care plan. Patient remains a FULL code status at This time. 8/4: Responded well to IV lasix and albumin overnight. CXR with some improvement today. IV lasix and albumin gain today per [facility]. With increased WOB and tachpnea this am, low dose propofol added for RASS goal of 0 to -2. Wean FIO2 as tolerated for SPO2 goal above 92%. Worsen hyperglycemia this am, most like due to IV steroids, insulin therapy adjusted. Monitor and replace electrolytes as needed. Family meeting today with [facility], patient remains a FULL code status. 02/08: Tolerating gentle diurese. Patient missed overnight IV lasix/albumin dose, will repeat another dose this morning. Continue to wean Fio2 as tolerated. Remains off pressors, VSS. Concern for BLE ischemia probably due to hypoperfusion vs pressor use. Will check BLE arterial doppler to r/o occlusion. Possible Vascular Surgery consult dependent on doppler result. Lantus adjusted for persisting hyperglycemia. Electrolytes repleted, monitor and replace electrolytes as needed. 8: This am ABG and CXR with some improvement this am. Down to 55% Fio2 this am. Hypotensive overnight required short duration of Levophed gtt, pressor is off this am. Will hold on IV diuretic today. Continue to monitor for now. Electrolytes repleted, monitor and replace electrolytes as needed. Prior history of psych issues, seroquel added BID. BLE doppler pending. 02/10: Remains stable on the vent. Down to 40% Fio2 and peep of 10 this am, SPO2 above 95%, CXR is unchanged. Continue vent wean as tolerated. Remains on IV steroid, will start tapering tomorrow. Per [facility], plan is to optimize patient on the vent for possible trach and PEG. FWF increased for persistent hypernatremia. K and phos repleted. Continue to monitor and replace electrolytes as needed. 02/11: Water flush continued at 300 mL every 4, potassium repleted, remains on vasopressors. No acute events reported overnight. intiate seriod taper 02/12: Patient being weaned down IV fentanyl pushes ordered, Lantus decreased, decreased PEEP and RT placed on pressure support this afternoon. No acute events overnight. 02/13: Patient attempted on PSV again today, steroids continue to be tapered. Tentative extubation tomorrow was supplanted by [facility]. Patient only lasted 3 hours again today. Vascular surgery consult completed and recommended plavix. 02/14: Patient was extubated today to nasal cannula. This afternoon she was started on high flow nasal cannula. No acute events reported overnight. Steroids tapered. Femoral A-line removed. Hospitalist Physical - Constitutional Vitals: Temp Pulse Resp BP Pulse Ox 98.9 F 121 H 49 H 125/69 93 02/14/22 12:00 02/14/22 14:26 02/14/22 14:15 02/14/22 14:26 02/14/22 14:15 General appearance: Present: no acute distress - EENT Eyes: Present: PERRL, EOM intact ENT: hearing intact - Neck Neck: Present: normal ROM - Respiratory Respiratory effort: normal Respiratory: bilateral: CTA, diminished - Cardiovascular Rhythm: regular Heart Sounds: Present: S1 & S2. Absent: systolic murmur, diastolic murmur - Extremities Extremities: no ischemia, pulses intact, pulses symmetrical, normal color Extremity abnormal: cold Peripheral Pulses: within normal limits - Abdominal General gastrointestinal: soft, non-tender, normal bowel sounds - Integumentary Integumentary: Present: warm, dry - Neurologic Neurologic: other (moves all extremities, tracks to voice) - Allied Health Allied health notes reviewed: nursing, RT, social work HEART Score - HEART Score Troponin: Troponin T < 0.010 ng/mL (0.00-0.029) 02/03/22 16:15 Results - Labs CBC & Chem 7: 02/14/22 04:35 02/14/22 09:03 Labs: Laboratory Last Values WBC 24.5 K/mm3 (4.5-11.0) H 02/14/22 04:35 RBC 4.19 M/mm3 (3.65-5.03) 02/14/22 04:35 Hgb 9.4 gm/dl (10.1-14.3) L 02/14/22 04:35 Hct 28.8 % (30.3-42.9) L D 02/14/22 04:35 MCV 69 fl (79-97) L 02/14/22 04:35 MCH 23 pg (28-32) L 02/14/22 04:35 MCHC 33 % (30-34) 02/14/22 04:35 RDW 30.3 % (13.2-15.2) H 02/14/22 04:35 Plt Count 379 K/mm3 (140-440) 02/14/22 04:35 Lymph % (Auto) Dining Service Inspector 02/02/22 04:00 Add Manual Diff Complete 02/03/22 04:00 Total Counted 50 02/03/22 04:00 Seg Neutrophils % Dining Service Inspector 02/02/22 04:00 Seg Neuts % (Manual) 76.0 % (40.0-70.0) H 02/03/22 04:00 Band Neutrophils % 18.0 % 02/03/22 04:00 Lymphocytes % (Manual) 2.0 % (13.4-35.0) L 02/03/22 04:00 Reactive Lymphs % (Man) 0 % 02/03/22 04:00 Monocytes % (Manual) 4.0 % (0.0-7.3) 02/03/22 04:00 Eosinophils % (Manual) 0 % (0.0-4.3) 02/03/22 04:00 Basophils % (Manual) 0 % (0.0-1.8) 02/03/22 04:00 Metamyelocytes % 0 % 02/03/22 04:00 Myelocytes % 0 % 02/03/22 04:00 Promyelocytes % 0 % 02/03/22 04:00 Blast Cells % 0 % 02/03/22 04:00 Nucleated RBC % 4.0 % (0.0-0.9) H 02/03/22 04:00 Seg Neutrophils # Man 2.8 K/mm3 (1.8-7.7) 02/03/22 04:00 Band Neutrophils # 0.7 K/mm3 02/03/22 04:00 Lymphocytes # (Manual) 0.1 K/mm3 (1.2-5.4) L 02/03/22 04:00 Abs React Lymphs (Man) 0.0 K/mm3 02/03/22 04:00 Monocytes # (Manual) 0.1 K/mm3 (0.0-0.8) 02/03/22 04:00 Eosinophils # (Manual) 0.0 K/mm3 (0.0-0.4) 02/03/22 04:00 Basophils # (Manual) 0.0 K/mm3 (0.0-0.1) 02/03/22 04:00 Metamyelocytes # 0.0 K/mm3 02/03/22 04:00 Myelocytes # 0.0 K/mm3 02/03/22 04:00 Promyelocytes # 0.0 K/mm3 02/03/22 04:00 Blast Cells # 0.0 K/mm3 02/03/22 04:00 WBC Morphology Not Reportable 02/03/22 04:00 Hypersegmented Neuts Not Reportable 02/03/22 04:00 Hyposegmented Neuts Not Reportable 02/03/22 04:00 Hypogranular Neuts Not Reportable 02/03/22 04:00 Smudge Cells Not Reportable 02/03/22 04:00 Toxic Granulation Not Reportable 02/03/22 04:00 Toxic Vacuolation Not Reportable 02/03/22 04:00 Dohle Bodies Few 02/03/22 04:00 Pelger-Huet Anomaly Not Reportable 02/03/22 04:00 Sung Rods Not Reportable 02/03/22 04:00 Platelet Estimate Consistent w auto 02/03/22 04:00 Clumped Platelets Not Reportable 02/03/22 04:00 Plt Clumps, EDTA Not Reportable 02/03/22 04:00 Large Platelets Not Reportable 02/03/22 04:00 Giant Platelets Not Reportable 02/03/22 04:00 Platelet Satelliting Not Reportable 02/03/22 04:00 Plt Morphology Comment Not Reportable 02/03/22 04:00 RBC Morphology Not Reportable 02/03/22 04:00 Dimorphic RBCs Not Reportable 02/03/22 04:00 Polychromasia Not Reportable 02/03/22 04:00 Hypochromasia 3+ 02/03/22 04:00 Poikilocytosis 2+ 02/03/22 04:00 Anisocytosis 1+ 02/03/22 04:00 Microcytosis 2+ 02/03/22 04:00 Macrocytosis Not Reportable 02/03/22 04:00 Spherocytes Not Reportable 02/03/22 04:00 Pappenheimer Bodies Not Reportable 02/03/22 04:00 Sickle Cells Not Reportable 02/03/22 04:00 Target Cells 1+ 02/03/22 04:00 Tear Drop Cells Few 02/03/22 04:00 Ovalocytes Few 02/03/22 04:00 Helmet Cells Not Reportable 02/03/22 04:00 [place] Bodies Not Reportable 02/03/22 04:00 [place] Rings Not Reportable 02/03/22 04:00 [place] Cells 1+ 02/03/22 04:00 Bite Cells Not Reportable 02/03/22 04:00 Crenated Cell Not Reportable 02/03/22 04:00 Elliptocytes Few 02/03/22 04:00 Acanthocytes (Spur) Not Reportable 02/03/22 04:00 Rouleaux Not Reportable 02/03/22 04:00 Hemoglobin C Crystals Not Reportable 02/03/22 04:00 Schistocytes Rare 02/03/22 04:00 Malaria parasites Not Reportable 02/03/22 04:00 Percent Retic 0.65 % (0.78-2.58) L 02/08/22 03:55 Sven Bodies Not Reportable 02/03/22 04:00 Hem Pathologist Commnt No 02/03/22 04:00 PT 14.8 Sec. (12.2-14.9) 02/05/22 08:48 INR 1.02 (0.87-1.13) 02/05/22 08:48 APTT 34.4 Sec. (24.2-36.6) 02/05/22 08:48 Fibrinogen 795 mg/dl (211-480) H 02/05/22 08:48 ABG pH 7.484 pH Units (7.350-7.450) H 02/14/22 04:40 POC ABG pCO2 37.3 mmHg (32.0-48.0) 02/02/22 04:49 ABG pCO2 48.8 mm Hg 02/14/22 04:40 POC ABG pO2 79.9 mmHg (83-108) L 02/02/22 04:49 ABG pO2 101.5 mm Hg (80.0-90.0) H 02/14/22 04:40 POC ABG HCO3 30.3 02/02/22 04:49 ABG HCO3 35.8 mmol/L (20.0-26.0) H 02/14/22 04:40 ABG O2 Saturation 97.8 % (95.0-99.0) 02/14/22 04:40 ABG O2 Content 12.8 (0.0-44) 02/14/22 04:40 POC ABG Base Excess 7.1 02/02/22 04:49 ABG Base Excess 11.1 mmol/L (-2.0-3.0) H 02/14/22 04:40 ABG Hemoglobin 9.4 gm/dl (12.0-16.0) L 02/14/22 04:40 ABG Oxyhemoglobin 96.0 (94-98) 02/02/22 04:49 ABG Carboxyhemoglobin 1.9 % (0.0-5.0) 02/14/22 04:40 ABG Methemoglobin 0.4 % (0.0-1.5) 02/14/22 04:40 ABG Sodium Not Reportable 02/02/22 04:49 ABG Potassium Not Reportable 02/02/22 04:49 ABG Chloride Not Reportable 02/02/22 04:49 ABG Glucose Not Reportable 02/02/22 04:49 Oxyhemoglobin 95.6 % (95.0-99.0) 02/14/22 04:40 Carboxyhemoglobin 0.2 (0.5-1.5) L 02/02/22 04:49 FiO2 40 % 02/14/22 04:40 FiO2 % 60.0 02/02/22 04:49 Sodium 145 mmol/L (137-145) 02/14/22 09:03 Potassium 4.0 mmol/L (3.6-5.0) 02/14/22 09:03 Chloride 101.4 mmol/L (98-107) 02/14/22 09:03 Carbon Dioxide 39 mmol/L (22-30) H 02/14/22 09:03 Anion Gap 9 mmol/L 02/14/22 09:03 BUN 20 mg/dL (7-17) H 02/14/22 09:03 Creatinine 0.4 mg/dL (0.6-1.2) L 02/14/22 09:03 Estimated GFR > 60 ml/min 02/14/22 09:03 BUN/Creatinine Ratio 50 % 02/14/22 09:03 Glucose 144 mg/dL (65-100) H 02/14/22 09:03 POC Glucose 80 mg/dL (70-105) 02/14/22 11:22 Hemoglobin A1c 11.1 % (4-6) H 02/01/22 12:54 Lactic Acid 2.50 mmol/L (0.7-2.0) H* 02/06/22 11:50 Calcium 8.3 mg/dL (8.4-10.2) L 02/14/22 09:03 Phosphorus 3.40 mg/dL (2.5-4.5) D 02/11/22 04:00 Magnesium 2.30 mg/dL (1.7-2.3) 02/11/22 04:00 Total Bilirubin 0.30 mg/dL (0.1-1.2) 02/13/22 04:00 Direct Bilirubin < 0.2 mg/dL (0-0.2) 02/13/22 04:00 Indirect Bilirubin 0.1 mg/dL 02/13/22 04:00 AST 30 units/L (5-40) 02/13/22 04:00 ALT 58 units/L (7-56) H 02/13/22 04:00 Alkaline Phosphatase 143 units/L (35-129) H 02/13/22 04:00 Lactate Dehydrogenase 879 units/L (91-180) H 02/05/22 04:40 Troponin T < 0.010 ng/mL (0.00-0.029) 02/03/22 16:15 Total Protein 4.7 g/dL (6.3-8.2) L 02/13/22 04:00 Albumin 2.2 g/dL (3.9-5) L 02/13/22 04:00 Albumin/Globulin Ratio 0.9 % 02/13/22 04:00 Arterial Blood Glucose Not Reportable 02/02/22 04:49 Urine Color Yellow (Yellow) 02/04/22 09:15 Urine Turbidity Cloudy (Clear) 02/04/22 09:15 Urine pH 6.0 (5.0-7.0) 02/04/22 09:15 Ur Specific [place] 1.025 (1.003-1.030) 02/04/22 09:15 Urine Protein >500 mg/dL (Negative) 02/04/22 09:15 Urine Glucose (UA) Negative mg/dL (Negative) 02/04/22 09:15 Urine Ketones Negative mg/dL (Negative) 02/04/22 09:15 Urine Blood Large (Negative) A 02/04/22 09:15 Urine Nitrite Negative (Negative) 02/04/22 09:15 Ur Reducing Substances Not Reportable 01/31/22 22:49 Urine Bilirubin Negative (Negative) 02/04/22 09:15 Urine Ictotest Not Reportable 01/31/22 22:49 Urine Urobilinogen < 2.0 mg/dL (<2.0) 02/04/22 09:15 Ur Leukocyte Esterase Negative (Negative) 02/04/22 09:15 Urine WBC (Auto) 12.0 /HPF (0.0-6.0) H 02/04/22 09:15 Urine RBC (Auto) 107.0 /HPF (0.0-6.0) 02/04/22 09:15 U Epithel Cells (Auto) 1.0 /HPF (0-13.0) 02/04/22 09:15 Urine Bacteria (Auto) 1+ /HPF (Negative) 02/04/22 09:15 Urine Mucus Few /HPF 02/04/22 09:15 Urine Yeast (Budding) 2+ /HPF 02/04/22 09:15 Vancomycin Trough 28.6 ug/mL (5.0-20.0) H 02/05/22 Unknown Coronavirus (PCR) Negative (Negative) 02/02/22 10:44 SARS-CoV-2 (PCR) Negative (Negative) 02/01/22 08:50 HIV 1&2 Antibody Rapid Non react (Non React) 02/04/22 14:37 HIV P24 Antigen Non react (Non React) 02/04/22 14:37 Blood Type A POSITIVE 02/13/22 09:41 Antibody Screen Negative 02/13/22 09:41 Crossmatch See Detail 02/13/22 09:41 Gastelum/IV: Voiding Method External Female Catheter Active Medications - Current Medications Current Medications: Generic Name Dose Route Start Last Admin Trade Name Freq PRN Reason Stop Dose Admin Acetaminophen 650 mg 02/01/22 00:57 02/04/22 11:58 Acetaminophen 325 Mg Tab PO 650 mg Q4H PRN Administration Pain MILD(1-3)/Fever >100.5/ROSADO Albuterol 2.5 mg 02/01/22 00:57 Albuterol 2.5 Mg/3 Ml Nebu IH Q3HRT PRN Shortness Of Breath Lipase/Protease/Amylase 1 each 02/02/22 08:08 Lipase 10,500/Protease 25,000/Amylase 43,750 (Units) Dr Cap FEEDTUBE PRN PRN For Clogged Feeding Tube Atorvastatin Calcium 20 mg 02/03/22 22:00 02/13/22 22:10 Atorvastatin 20 Mg Tab FEEDTUBE 20 mg QHS JAMIL Administration Dextrose 50 ml 02/02/22 08:00 02/05/22 11:52 Dextrose 50% In Water (25gm) 50 Ml Syringe IV 25 ml Q30MIN PRN Administration Hypoglycemia Protocol Famotidine 20 mg 02/04/22 10:00 02/14/22 09:09 Famotidine 20 Mg Tab FEEDTUBE 20 mg BID JAMIL Administration Fentanyl 50 mcg 02/02/22 09:45 02/12/22 20:00 Fentanyl 100 Mcg/2 Ml Inj IV 50 mcg Q10MIN PRN Administration ANALGESIA Fentanyl 50 mcg 02/12/22 10:11 02/12/22 17:35 Fentanyl 100 Mcg/2 Ml Inj IV 50 mcg Q2H PRN Administration VENT SYNCHRONY/AGITATION Hydrocortisone Sodium Succinate 50 mg 02/13/22 16:00 02/14/22 04:12 Hydrocortisone Sod Succ 100 Mg/2 Ml Vial IV 50 mg Q12H JAMIL Administration Hydrophilic Ointment 1 applic 02/01/22 18:52 Lip Therapy Vaseline TP Q2HR PRN Dry Lips NORepinephrine/NS 8 MG-250 ML 8 mg in 250 mls @ 3.75 mls/hr 02/01/22 20:00 02/07/22 19:18 Norepinephrine/Ns 8 Mg-250 Ml (Double Conc) IV 0 mcg/min TITRATE JAMIL 0 mls/hr Titration Protocol 2 MCG/MIN Propofol 1,000 mg in 100 mls @ 1.429 mls/hr 02/01/22 19:17 02/08/22 16:30 Diprivan 10 Mg/Ml IV 0 mcg/kg/min TITR JAMIL 0 mls/hr Titration Protocol 5 MCG/KG/MIN Fentanyl Citrate 2,000 mcg in 100 mls @ 2.381 mls/hr 02/02/22 10:00 02/14/22 10:00 Fentanyl Drip Premix IV 0 mcg/kg/hr TITR JAMIL 0 mls/hr Titration Protocol 1 MCG/KG/HR Phenylephrine HCl 100 mg/ 100 mls @ 3 mls/hr 02/03/22 14:15 02/07/22 19:18 Sodium Chloride IV 0 mcg/min TITR JAMIL 0 mls/hr Titration Protocol 50 MCG/MIN Sodium Chloride 500 mls @ 5 mls/hr 02/04/22 03:00 02/08/22 05:21 Nacl 0.9% 500 Ml IV 5 mls/hr DIRECT JAMIL Administration Vasopressin 20 unit/ Sodium 101 mls @ 9.09 mls/hr 02/04/22 09:15 02/07/22 19:18 Chloride IV 0 units/min TITR JAMIL 0 mls/hr Titration Protocol 0.03 UNITS/MIN Insulin Glargine 20 units 02/12/22 22:00 02/13/22 22:11 Insulin Glargine 100 Units/Ml SUB-Q 20 units QHS JAMIL Administration Insulin Human Regular 0 units 02/02/22 18:00 02/14/22 11:26 Insulin Regular, Human 100 Units/1 Ml SUB-Q Not Given Q6H [facility] Protocol Multi-Ingred Cream/Lotion/Oil/Oint 1 applic 02/01/22 18:52 Mineral Oil/Petrolatum, White Ophth Oint 3.5 Gm OU Q4HR PRN Dry Eye(s) Nitroglycerin 0.5 inch 02/11/22 14:00 02/14/22 14:26 Nitroglycerin 2% Oint 1 Gm TP 0.5 inch BIDNTG JAMIL Administration Protocol Ondansetron HCl 4 mg 02/01/22 00:57 Ondansetron 4 Mg/2 Ml Inj IV Q8H PRN Nausea And Vomiting Quetiapine Fumarate 50 mg 02/09/22 10:00 02/14/22 09:09 Quetiapine 25 Mg Tab PO 50 mg BID JAMIL Administration Senna/Docusate Sodium 2 tab 02/07/22 10:00 02/14/22 09:09 Sennosides/Docusate Sodium 8.6/50 Mg Tab PO Not Given Q12H JAMIL Simple Syrup 15 ml 02/02/22 08:08 Simple Syrup 15 Ml FEEDTUBE PRN PRN Hypoglycemia Simple Syrup 30 ml 02/02/22 08:08 Simple Syrup 15 Ml FEEDTUBE PRN PRN Hypoglycemia Sodium Bicarbonate 325 mg 02/02/22 08:08 Sodium Bicarbonate 325 Mg Tab FEEDTUBE PRN PRN For Clogged Feeding Tube Sodium Chloride 10 ml 02/01/22 10:00 02/14/22 09:10 Sodium Chloride 0.9% 10 Ml Flush Syringe IV 10 ml BID JAMIL Administration Sodium Chloride 10 ml 02/01/22 00:57 02/09/22 05:59 Sodium Chloride 0.9% 10 Ml Flush Syringe IV 10 ml PRN PRN Administration LINE FLUSH Nutrition/Malnutrition Assess - Dietary Evaluation Nutrition/Malnutrition Findings: Nutrition Notes Start: 02/01/22 17:50 Freq: Status: Active Protocol: Document 02/13/22 10:51 JACQUELINE (Rec: 02/13/22 11:11 JACQUELINE [email or web address]) Nutrition Notes Initial or Follow up Assessment Current Diagnosis Diabetes,Sepsis,Respiratory Failure Other Pertinent Diagnosis s/p DKA, s/p PEA Arrest, Pneumonia, Pyuria, Pancytopenia, UTI, ... Current Diet TF-Glucerna 1.2 Venu @ 55 ml/hr (since L 02/04). Labs/Tests 02/13: Na 146, CO2 38, BUN 25, Crea 0.4, Glu 235, Ca 8.0. Pertinent Medications 02/13: Lantus 20U, Humulin 6U, others nutritionally unremarkable. Height 5 ft 4 in Weight 48.8 kg [place] Body Weight (kg) 54.54 BMI 18.4 Weight change and time frame 2.3 Kg body weight gain reported in 1 week. Weight Status Underweight Subjective/Other Information RD consult for TF tolerance/ continuation. TF continues as prescribed, and well tolerated, according to RN notes. Pt remains on Mechanical Ventilation, O2 saturation @ 100%, according to Physical Assessment History notes. Pt remains incontinent, according to Physical Assessment History notes. Plans for extubation on 02/14 am, according to Progress notes. Percent of energy/protein needs met: Prescribed TF-Glucerna 1.2 Venu @ 55 ml/hr provides for energy/protein needs (1584 Kcal/79 g) during LOS, 97% Kcal; 100% AA. Burn Absent Trauma Absent GI Symptoms None Difficulty In Swallowing Food Allergy No Skin Integrity/Comment Unspecified area of concern. 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 Yes Is Patient Ambulatory and/or Out of Bed No [facility] 1262.676 Kcal/Kg value to use for calculation 34 Approximate Energy Requirements Using 1659 kcal/Kg Calculation Used for Recommendations Kcal/kg Additional Notes Protein: 1.2-2 g/Kg ABW; 56-93 g/day. Fluids: 1 ml/Kcal, or as per MD. Nutrition Intervention Nutrition Support: Continue TF-Glucerna 1.2 Venu @ 55 ml/hr. Flush: 250 ml water Q 4 hr while hypernatremia persists, resume to 100 ml when Na is WNL. Kcal 1,584 Protein (gm) 79 Carbohydrates (gm) 151 Fat (gm) 79 Fluid (mL) 1,063 Fiber (gm) 21 % RDI: 97% Kcal; 100% AA. Goal #1 Provide at least 75% of energy /protein needs through Enteral Feeding during LOS. Follow-Up By: 02/20/22 Additional Comments Continue monitoring TF tolerance, Mechanical Ventilation, Hypernatremia, and BM. <ABDELRAHMAN MCMAHAN - Last Filed: 02/25/22 11:37> History Interval history: I saw and evaluated the patient. I agree with the findings and the plan of care as documented in the Nurse Practitioner's~note, with the following corrections and additions. Hospitalist Physical - Constitutional Vitals: Temp Pulse Resp BP Pulse Ox 100.5 F H 115 H 27 H 101/70 100 02/22/22 16:00 02/22/22 18:00 02/22/22 18:00 02/22/22 18:00 02/22/22 18:00 HEART Score - HEART Score Troponin: Troponin T < 0.010 ng/mL (0.00-0.029) 02/03/22 16:15 Results - Labs CBC & Chem 7: 02/22/22 04:00 02/22/22 04:00 Labs: Laboratory Last Values WBC 15.0 K/mm3 (4.5-11.0) H 02/22/22 04:00 RBC 3.62 M/mm3 (3.65-5.03) L 02/22/22 04:00 Hgb 7.7 gm/dl (10.1-14.3) L 02/22/22 04:00 Hct 24.8 % (30.3-42.9) L 02/22/22 04:00 MCV 68 fl (79-97) L 02/22/22 04:00 MCH 21 pg (28-32) L 02/22/22 04:00 MCHC 31 % (30-34) 02/22/22 04:00 RDW 29.9 % (13.2-15.2) H 02/22/22 04:00 Plt Count 442 K/mm3 (140-440) H 02/22/22 04:00 Lymph % (Auto) Dining Service Inspector 02/02/22 04:00 Add Manual Diff Complete 02/03/22 04:00 Total Counted 50 02/03/22 04:00 Seg Neutrophils % Dining Service Inspector 02/02/22 04:00 Seg Neuts % (Manual) 76.0 % (40.0-70.0) H 02/03/22 04:00 Band Neutrophils % 18.0 % 02/03/22 04:00 Lymphocytes % (Manual) 2.0 % (13.4-35.0) L 02/03/22 04:00 Reactive Lymphs % (Man) 0 % 02/03/22 04:00 Monocytes % (Manual) 4.0 % (0.0-7.3) 02/03/22 04:00 Eosinophils % (Manual) 0 % (0.0-4.3) 02/03/22 04:00 Basophils % (Manual) 0 % (0.0-1.8) 02/03/22 04:00 Metamyelocytes % 0 % 02/03/22 04:00 Myelocytes % 0 % 02/03/22 04:00 Promyelocytes % 0 % 02/03/22 04:00 Blast Cells % 0 % 02/03/22 04:00 Nucleated RBC % 4.0 % (0.0-0.9) H 02/03/22 04:00 Seg Neutrophils # Man 2.8 K/mm3 (1.8-7.7) 02/03/22 04:00 Band Neutrophils # 0.7 K/mm3 02/03/22 04:00 Lymphocytes # (Manual) 0.1 K/mm3 (1.2-5.4) L 02/03/22 04:00 Abs React Lymphs (Man) 0.0 K/mm3 02/03/22 04:00 Monocytes # (Manual) 0.1 K/mm3 (0.0-0.8) 02/03/22 04:00 Eosinophils # (Manual) 0.0 K/mm3 (0.0-0.4) 02/03/22 04:00 Basophils # (Manual) 0.0 K/mm3 (0.0-0.1) 02/03/22 04:00 Metamyelocytes # 0.0 K/mm3 02/03/22 04:00 Myelocytes # 0.0 K/mm3 02/03/22 04:00 Promyelocytes # 0.0 K/mm3 02/03/22 04:00 Blast Cells # 0.0 K/mm3 02/03/22 04:00 WBC Morphology Not Reportable 02/03/22 04:00 Hypersegmented Neuts Not Reportable 02/03/22 04:00 Hyposegmented Neuts Not Reportable 02/03/22 04:00 Hypogranular Neuts Not Reportable 02/03/22 04:00 Smudge Cells Not Reportable 02/03/22 04:00 Toxic Granulation Not Reportable 02/03/22 04:00 Toxic Vacuolation Not Reportable 02/03/22 04:00 Dohle Bodies Few 02/03/22 04:00 Pelger-Huet Anomaly Not Reportable 02/03/22 04:00 Sung Rods Not Reportable 02/03/22 04:00 Platelet Estimate Consistent w auto 02/03/22 04:00 Clumped Platelets Not Reportable 02/03/22 04:00 Plt Clumps, EDTA Not Reportable 02/03/22 04:00 Large Platelets Not Reportable 02/03/22 04:00 Giant Platelets Not Reportable 02/03/22 04:00 Platelet Satelliting Not Reportable 02/03/22 04:00 Plt Morphology Comment Not Reportable 02/03/22 04:00 RBC Morphology Not Reportable 02/03/22 04:00 Dimorphic RBCs Not Reportable 02/03/22 04:00 Polychromasia Not Reportable 02/03/22 04:00 Hypochromasia 3+ 02/03/22 04:00 Poikilocytosis 2+ 02/03/22 04:00 Anisocytosis 1+ 02/03/22 04:00 Microcytosis 2+ 02/03/22 04:00 Macrocytosis Not Reportable 02/03/22 04:00 Spherocytes Not Reportable 02/03/22 04:00 Pappenheimer Bodies Not Reportable 02/03/22 04:00 Sickle Cells Not Reportable 02/03/22 04:00 Target Cells 1+ 02/03/22 04:00 Tear Drop Cells Few 02/03/22 04:00 Ovalocytes Few 02/03/22 04:00 Helmet Cells Not Reportable 02/03/22 04:00 [place] Bodies Not Reportable 02/03/22 04:00 [place] Rings Not Reportable 02/03/22 04:00 [place] Cells 1+ 02/03/22 04:00 Bite Cells Not Reportable 02/03/22 04:00 Crenated Cell Not Reportable 02/03/22 04:00 Elliptocytes Few 02/03/22 04:00 Acanthocytes (Spur) Not Reportable 02/03/22 04:00 Rouleaux Not Reportable 02/03/22 04:00 Hemoglobin C Crystals Not Reportable 02/03/22 04:00 Schistocytes Rare 02/03/22 04:00 Malaria parasites Not Reportable 02/03/22 04:00 Percent Retic 0.65 % (0.78-2.58) L 02/08/22 03:55 Sven Bodies Not Reportable 02/03/22 04:00 Hem Pathologist Commnt No 02/03/22 04:00 PT 13.7 Sec. (12.2-14.9) 02/18/22 04:00 INR 0.95 (0.87-1.13) 02/18/22 04:00 APTT 29.5 Sec. (24.2-36.6) 02/16/22 04:36 Fibrinogen 795 mg/dl (211-480) H 02/05/22 08:48 ABG pH 7.463 pH Units (7.350-7.450) H 02/17/22 05:06 POC ABG pCO2 37.3 mmHg (32.0-48.0) 02/02/22 04:49 ABG pCO2 46.8 mm Hg 02/17/22 05:06 POC ABG pO2 79.9 mmHg (83-108) L 02/02/22 04:49 ABG pO2 113.6 mm Hg (80.0-90.0) H 02/17/22 05:06 POC ABG HCO3 30.3 02/02/22 04:49 ABG HCO3 32.8 mmol/L (20.0-26.0) H 02/17/22 05:06 ABG O2 Saturation 98.2 % (95.0-99.0) 02/17/22 05:06 ABG O2 Content 11.0 (0.0-44) 02/17/22 05:06 POC ABG Base Excess 7.1 02/02/22 04:49 ABG Base Excess 8.1 mmol/L (-2.0-3.0) H 02/17/22 05:06 ABG Hemoglobin 8.0 gm/dl (12.0-16.0) L 02/17/22 05:06 ABG Oxyhemoglobin 96.0 (94-98) 02/02/22 04:49 ABG Carboxyhemoglobin 1.7 % (0.0-5.0) 02/17/22 05:06 ABG Methemoglobin 0.5 % (0.0-1.5) 02/17/22 05:06 ABG Sodium Not Reportable 02/02/22 04:49 ABG Potassium Not Reportable 02/02/22 04:49 ABG Chloride Not Reportable 02/02/22 04:49 ABG Glucose Not Reportable 02/02/22 04:49 Oxyhemoglobin 96.0 % (95.0-99.0) 02/17/22 05:06 Carboxyhemoglobin 0.2 (0.5-1.5) L 02/02/22 04:49 FiO2 30 % 02/17/22 05:06 FiO2 % 60.0 02/02/22 04:49 Sodium 143 mmol/L (137-145) 02/22/22 04:00 Potassium 3.7 mmol/L (3.6-5.0) 02/22/22 04:00 Chloride 108.7 mmol/L (98-107) H 02/22/22 04:00 Carbon Dioxide 26 mmol/L (22-30) 02/22/22 04:00 Anion Gap 12 mmol/L 02/22/22 04:00 BUN 10 mg/dL (7-17) 02/22/22 04:00 Creatinine 0.4 mg/dL (0.6-1.2) L 02/22/22 04:00 Estimated GFR > 60 ml/min 02/22/22 04:00 BUN/Creatinine Ratio 25 % 02/22/22 04:00 Glucose 49 mg/dL (65-100) L 02/22/22 04:00 POC Glucose 173 mg/dL (70-105) H 02/22/22 18:19 Hemoglobin A1c 11.1 % (4-6) H 02/01/22 12:54 Lactic Acid 2.50 mmol/L (0.7-2.0) H* 02/06/22 11:50 Calcium 8.7 mg/dL (8.4-10.2) 02/22/22 04:00 Phosphorus 2.90 mg/dL (2.5-4.5) 02/22/22 11:35 Magnesium 1.70 mg/dL (1.7-2.3) 02/22/22 11:35 Total Bilirubin 0.50 mg/dL (0.1-1.2) 02/17/22 05:00 Direct Bilirubin < 0.2 mg/dL (0-0.2) 02/13/22 04:00 Indirect Bilirubin 0.1 mg/dL 02/13/22 04:00 AST 38 units/L (5-40) 02/17/22 05:00 ALT 28 units/L (7-56) 02/17/22 05:00 Alkaline Phosphatase 102 units/L (35-129) 02/17/22 05:00 Lactate Dehydrogenase 879 units/L (91-180) H 02/05/22 04:40 Troponin T < 0.010 ng/mL (0.00-0.029) 02/03/22 16:15 Total Protein 5.4 g/dL (6.3-8.2) L 02/17/22 05:00 Albumin 2.5 g/dL (3.9-5) L 02/17/22 05:00 Albumin/Globulin Ratio 0.9 % 02/17/22 05:00 Arterial Blood Glucose Not Reportable 02/02/22 04:49 Urine Color Straw (Yellow) 02/19/22 18:15 Urine Turbidity Clear (Clear) 02/19/22 18:15 Urine pH 8.0 (5.0-7.0) H 02/19/22 18:15 Ur Specific [place] 1.000 (1.003-1.030) L 02/19/22 18:15 Urine Protein 30 mg/dl mg/dL (Negative) 02/19/22 18:15 Urine Glucose (UA) Negative mg/dL (Negative) 02/19/22 18:15 Urine Ketones 5 mg/dL (Negative) 02/19/22 18:15 Urine Blood 1+ (Negative) 02/19/22 18:15 Urine Nitrite Negative (Negative) 02/19/22 18:15 Ur Reducing Substances Not Reportable 02/19/22 18:15 Urine Bilirubin Negative (Negative) 02/19/22 18:15 Urine Ictotest Not Reportable 02/19/22 18:15 Urine Urobilinogen Small mg/dL (<2.0) 02/19/22 18:15 Ur Leukocyte Esterase Negative (Negative) 02/19/22 18:15 Urine WBC (Auto) 2.0 /HPF (0.0-6.0) 02/19/22 18:15 Urine RBC (Auto) 3.0 /HPF (0.0-6.0) 02/19/22 18:15 U Epithel Cells (Auto) 1.0 /HPF (0-13.0) 02/04/22 09:15 Urine Bacteria (Auto) 1+ /HPF (Negative) 02/19/22 18:15 Urine Mucus Few /HPF 02/04/22 09:15 Urine Yeast (Budding) 2+ /HPF 02/04/22 09:15 Vancomycin Trough 28.6 ug/mL (5.0-20.0) H 02/05/22 Unknown Coronavirus (PCR) Negative (Negative) 02/02/22 10:44 SARS-CoV-2 (PCR) Negative (Negative) 02/15/22 09:39 HIV 1&2 Antibody Rapid Non react (Non React) 02/04/22 14:37 HIV P24 Antigen Non react (Non React) 02/04/22 14:37 Blood Type A POSITIVE 02/13/22 09:41 Antibody Screen Negative 02/13/22 09:41 Crossmatch See Detail 02/13/22 09:41 Microbiology: Microbiology 02/19/22 14:51 Peripheral/Venous Blood Culture - Final NO GROWTH AFTER 5 DAYS 02/19/22 14:51 Peripheral/Venous Blood Culture - Final NO GROWTH AFTER 5 DAYS 02/19/22 18:43 Tracheal Aspirate Sputum Culture - Final Gastelum/IV: Voiding Method External Female Catheter Nutrition/Malnutrition Assess - Dietary Evaluation Nutrition/Malnutrition Findings: Nutrition Notes Start: 02/01/22 17:50 Freq: Status: Discharge Protocol: Document 02/19/22 14:47 JACQUELINE (Rec: 02/19/22 15:20 JACQUELINE [id number]) Nutrition Notes Need for Assessment generated from: Low BMI Initial or Follow up Reassessment Current Diagnosis Diabetes,Sepsis,Respiratory Failure Other Pertinent Diagnosis s/p DKA, s/p PEA Arrest, Pneumonia, Pyuria, Pancytopenia, UTI, ... Current Diet TF-Glucerna 1.2 Venu @ 55 ml/hr (since D 02/18). Labs/Tests 02/19: Crea 0.3, Glu 143. Pertinent Medications 02/19: D10w @ 42 ml/hr, others nutritionally unremarkable. Height 5 ft 4 in Weight 47 kg [place] Body Weight (kg) 54.54 BMI 17.7 Weight change and time frame 1.8 Kg body weight loss in 1 week reported. Weight Status Underweight Subjective/Other Information RD consult for routine F/U on TF tolerance/continuation, and Low BMI assessment. TF continues as prescribed, but currently on hold, due to vomiting episode after PEG placement, according to RN notes. Pt remains on Mechanical Ventilation, O2 saturation @ 100%, according to Physical Assessment History notes. PEG-tube placement on 02/18, well tolerated, according to Operative Report notes. Pt's Low BMI seems to correspond to a natural body composition, and not related to a sudden loss of body weight nor chronic malnutrition, since no signs of concern were mentioned in the Physical Assessment History or the Progress notes. Percent of energy/protein needs met: Prescribed TF-Glucerna 1.2 Venu @ 55 ml/hr provides for energy/protein needs (1584 Kcal/79 g) during LOS, 97% Kcal; 100% AA. Burn Absent Trauma Absent GI Symptoms Vomiting Difficulty In Swallowing Food Allergy No Skin Integrity/Comment Unspecified area of concern. 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 Yes Is Patient Ambulatory and/or Out of Bed No REE-([place]-confined to bed) 1241.100 Kcal/Kg value to use for calculation 34 Approximate Energy Requirements Using 1598 kcal/Kg Calculation Used for Recommendations Kcal/kg Additional Notes Protein: 1.2-2 g/Kg ABW; 56-93 g/day. Fluids: 1 ml/Kcal, or as per MD. Nutrition Intervention Nutrition Support: Continue TF-Glucerna 1.2 Venu @ 55 ml/hr. Flush: 100 ml water Q 4 hr, or as per MD. Kcal 1,584 Protein (gm) 79 Carbohydrates (gm) 151 Fat (gm) 79 Fluid (mL) 1,063 Fiber (gm) 21 % RDI: 97% Kcal; 100% AA. Goal #1 Provide at least 75% of energy /protein needs through Enteral Feeding during LOS. Follow-Up By: 03/05/22 Additional Comments Continue monitoring TF tolerance, Mechanical Ventilation, and BM.
[2022-02-14] MEDS ORDERED: fentaNYL 100 MCG/2 ML INJ IV ONE (16:21)
[2022-02-14] MEDS ORDERED: ETOMIDATE 20 MG/10 ML INJ IV ONE (16:21)
[2022-02-14] MEDS ORDERED: MIDAZOLAM 2 MG/2 ML INJ IV ONE (16:21)
[2022-02-14] MEDS ORDERED: SUCCINYLCHOLINE CHLORIDE 200 MG/10 ML INJ MDV IV ONE (16:21)
[2022-02-14] MEDS: fentaNYL DRIP Premix 2,000 MCG/100 ML BAG IV SCH (17:10)
--- NOTE | 2022-02-14 17:11 | XRay Report ---
CHEST 1 VIEW 02/14/2022 4:05 PM INDICATION / CLINICAL INFORMATION: reintubation. COMPARISON: 02/13/22 FINDINGS: SUPPORT DEVICES: Tip of endotracheal tube is present 1 cm above the kathy. Right jugular central don e and esophagogastric tube are unchanged. HEART / MEDIASTINUM: Stable. LUNGS / PLEURA: Bilateral pulmonary opacities are unchanged. No pneumothorax. ADDITIONAL FINDINGS: No significant additional findings. IMPRESSION: 1. Tip of endotracheal tube just above the kathy. Signer Name: Fabio Camargo MD Signed: 02/14/2022 5:07 PM Workstation Name: [id number]
--- NOTE | 2022-02-14 17:31 | XRay Report ---
ABDOMEN 1 VIEW(S) INDICATION / CLINICAL INFORMATION: Feeding tube. COMPARISON: None available. FINDINGS: TUBES / LINES: Esophagogastric tube tip projects in the right upper abdomen either within the gastric antrum or duodenal bulb. Side-port is in the distal stomach. BOWEL GAS PATTERN: No significant abnormality. FREE AIR / EXTRALUMINAL GAS: None seen. ADDITIONAL FINDINGS: No significant additional findings. IMPRESSION: 1. Esophagogastric tube as above. Signer Name: Joe Parry MD Signed: 02/14/2022 5:26 PM Workstation Name: [email or web address]
[2022-02-14] MEDS: DEXTROSE 50% IN WATER (25GM) 50 ML SYRINGE IV PRN (18:10)
[2022-02-14 18:33] LABS: ABG Base Excess 13.8 mmol/L (-2.0-3.0); ABG HCO3 38.8 mmol/L (20.0-26.0); ABG PCO2 48.9 mm Hg; ABG PH 7.518 pH Units (7.350-7.450); ABG PO2 97.1 mm Hg (80.0-90.0)
[2022-02-14 19:18] LABS: ABG Methemoglobin 0.4 % (0.0-1.5); ABG Oxygen Saturation 97.9 % (95.0-99.0)
[2022-02-14] MEDS: INSULIN GLARGINE 100 UNITS/ML SUB-Q SCH (21:41)
[2022-02-15] MEDS: INSULIN REGULAR, HUMAN 100 UNITS/1 ML SUB-Q SCH ×5 (00:56→23:57)
[2022-02-15] MEDS: HYDROCORTISONE SOD SUCC 100 MG/2 ML VIAL IV SCH (03:12)
[2022-02-15 04:06] LABS: Hematocrit 26.6 % (30.3-42.9); Hemoglobin 8.4 gm/dl (10.1-14.3); Mean Corpuscular HGB Conc 31 % (30-34); Platelet Count 370 K/mm3 (140-440); Red Blood Count 3.85 M/mm3 (3.65-5.03)
[2022-02-15 04:07] LABS: Mean Corpuscular Volume 69 fl (79-97); Red Cell Distribution Width 31.5 % (13.2-15.2)
[2022-02-15] MEDS: FREE WATER PO SCH ×4 (04:40→13:23)
--- NOTE | 2022-02-15 05:38 | XRay Report ---
XR chest 1V ap INDICATION / CLINICAL INFORMATION: resp failure. COMPARISON: Radiograph from yesterday. FINDINGS: SUPPORT DEVICES: Satisfactory repositioning of endotracheal tube. Right IJ central venous catheter an d enteric catheter are stable. Distal tip of the enteric catheter terminates in the distal stomach or proximal duodenum. Side-port is located at the distal gastric body. HEART /PULMONARY VASCULATURE: Unchanged. LUNGS / PLEURA: Bilateral pulmonary opacities are unchanged. No pneumothorax. IMPRESSION: 1. No significant interval change. Signer Name: Kian Diaz MD Signed: 02/15/2022 5:34 AM Workstation Name: [email or web address] [id number]
[2022-02-15] MEDS: NITROGLYCERIN 2% OINT 1 GM TP SCH ×2 (06:26→13:23)
[2022-02-15] MEDS: QUEtiapine 25 MG TAB PO SCH ×2 (09:52→22:09)
[2022-02-15] MEDS: FAMOTIDINE 20 MG TAB FEEDTUBE SCH ×2 (09:53→22:09)
[2022-02-15] MEDS: SENNOSIDES/DOCUSATE SODIUM 8.6/50 MG TAB PO SCH ×2 (09:54→22:09)
--- NOTE | 2022-02-15 10:16 | Progress Note ---
Assessment and Plan Cultures: 01/31/2022 blood culture: No growth 02/01/2022 tracheal aspirate culture: Klebsiella pneumoniae COVID-19 PCR: Negative 02/04/2022 blood culture: no growth so far 02/04/2022 urine culture: No growth 02/04/2022 fungal blood culture: no growth so far A/P: 61-year-old female was admitted from [facility] with hypoglycemia: #Refractory septic shock, severe acidosis, s/p PEA arrest on 02/01/2022. #Bilateral pneumonia: Probably aspiration following PEA arrest. Initial chest x -ray did not show any pneumonia. Now with severe b/l pneumonia, treated with abx. #Possible UTI: UA showed pyuria #Acute hypoxic respiratory failure with ARDS: reintubated 02/15/2022 #Diabetic ketoacidosis on admission #Pancytopenia, neutropenia, thrombocytopenia: ?sepsis. Seen by hematology. HIV negative. Gradually improving. Recs: -continue off antibiotics Doroteo Morales MD, [facility] O: [phone] F: [phone] C: [phone] Subjective Date of service: 02/15/22 Principal diagnosis: DKA, s/p cardiopulmonary arrest Interval history: Patient got reintubated yesterday. Afebrile. Objective - Exam Narrative Exam: Physical Exam: Constitutional: sedated, intubated, on the vent Head, Ears, Nose: Normocephalic, atraumatic. External ears, nose normal Eyes: Conjunctivae/corneas clear. No icterus. No ptosis. Neck: intubated Oral: intubated Cardiovascular: S1, S2 + Respiratory: AE fair bilaterally and equal GI: Soft, bowel sounds + Musculoskeletal: No pedal edema, no cyanosis. Skin: No rash or abscess Hem/Lymphatic: No palpable cervical or supraclavicular nodes. No lymphangitis Psych: no agitation Neurological: sedated, intubated, on the vent, exam limited - Constitutional Vitals: Vital Signs Temp Pulse Resp BP Pulse Ox 99.3 F 118 H 17 124/74 100 02/15/22 08:00 02/15/22 09:15 02/15/22 09:15 02/15/22 09:15 02/15/22 09:15 Temperature -Last 24 Hours Temperature 99.3 F Temperature 98.4 F Temperature 99.4 F Temperature 98.9 F - Labs CBC & Chem 7: 02/15/22 03:31 02/14/22 09:03 Labs: Abnormal lab results 02/14/22 02/14/22 02/14/22 Range/Units 11:20 18:07 18:10 WBC (4.5-11.0) K/mm3 Hgb (10.1-14.3) gm/dl Hct (30.3-42.9) % MCV (79-97) fl MCH (28-32) pg RDW (13.2-15.2) % ABG pH 7.518 H (7.350-7.450) pH Units ABG pO2 97.1 H (80.0-90.0) mm Hg ABG HCO3 38.8 H (20.0-26.0) mmol/L ABG Base Excess 13.8 H (-2.0-3.0) mmol/L POC Glucose 42 L 29 L (70-105) mg/dL 02/14/22 02/14/22 02/15/22 Range/Units 18:36 23:44 03:31 WBC 20.1 H (4.5-11.0) K/mm3 Hgb 8.4 L (10.1-14.3) gm/dl Hct 26.6 L (30.3-42.9) % MCV 69 L (79-97) fl MCH 22 L (28-32) pg RDW 31.5 H (13.2-15.2) % ABG pH (7.350-7.450) pH Units ABG pO2 (80.0-90.0) mm Hg ABG HCO3 (20.0-26.0) mmol/L ABG Base Excess (-2.0-3.0) mmol/L POC Glucose 143 H 229 H (70-105) mg/dL 02/15/22 Range/Units 05:23 WBC (4.5-11.0) K/mm3 Hgb (10.1-14.3) gm/dl Hct (30.3-42.9) % MCV (79-97) fl MCH (28-32) pg RDW (13.2-15.2) % ABG pH (7.350-7.450) pH Units ABG pO2 (80.0-90.0) mm Hg ABG HCO3 (20.0-26.0) mmol/L ABG Base Excess (-2.0-3.0) mmol/L POC Glucose 232 H (70-105) mg/dL
--- NOTE | 2022-02-15 12:19 | Consultation ---
History of Present Illness Consult date: 02/15/22 Reason for consult: other (vent) Chief complaint: vent - History of present illness History of present illness: 61 yo F with hx of DM who presented to ER from detention 2/2 hypoglycemia. She was found to be in diabetic ketoacidosis and admitted to the ICU. Her hospital course has been complicated by PEA arrest which required intubation and several days on pressor support. Vent weaning was attempted and patient was extubated to 3L NC yesterday but was reintubated later that day. CCU team requesting trach/peg. All history obtained from chart. Records from [place] reviewed. Discussed with patient's daughter. States she was told by another physician in the past that her mother would need a feeding tube due to trouble swallowing. She also explained that her mother has had a bleeding ulcer in the past, gallbladder surgery and kidney stone removal. Past History Past Medical History: diabetes, hypertension, hyperlipidemia, other (dementia) Past Surgical History: cholecystectomy, Other (kidney stone surgery) Social history: other (unable to obtain) Family history: other (unable to obtain) Medications and Allergies Allergies Allergy/AdvReac Type Severity Reaction Status Date / Time No Known Allergies Allergy Verified 01/31/22 17:55 Home Medications Medication Instructions Recorded Confirmed Last Taken Type Ergocalciferol [Vitamin D2] 1 cap PO QWEEK 02/02/22 02/02/22 Unknown History Famotidine [Pepcid] 20 mg PO DAILY 02/02/22 02/02/22 Unknown History Insulin Glargine [Lantus VIAL] 5 unit SUB-Q BID 02/02/22 02/02/22 Unknown History Loratadine [Claritin] 10 mg PO DAILY 02/02/22 02/02/22 Unknown History Mirtazapine [Remeron] 15 mg PO HS 02/02/22 02/02/22 Unknown History Rosuvastatin Calcium [Crestor] 10 mg PO HS 02/02/22 02/02/22 Unknown History carvediloL [Coreg] 3.125 mg PO BID 02/02/22 02/02/22 Unknown History Active Meds: Active Medications Acetaminophen (Acetaminophen 325 Mg Tab) 650 mg PO Q4H PRN PRN Reason: Pain MILD(1-3)/Fever >100.5/ROSADO Last Admin: 02/04/22 11:58 Dose: 650 mg Albuterol (Albuterol 2.5 Mg/3 Ml Nebu) 2.5 mg IH Q3HRT PRN PRN Reason: Shortness Of Breath Lipase/Protease/Amylase (Lipase 10,500/Protease 25,000/Amylase 43,750 (Units) Dr Cap) 1 each FEEDTUBE PRN PRN PRN Reason: For Clogged Feeding Tube Atorvastatin Calcium (Atorvastatin 20 Mg Tab) 20 mg FEEDTUBE QHS JAMIL Last Admin: 02/14/22 21:41 Dose: 20 mg Dextrose (Dextrose 50% In Water (25gm) 50 Ml Syringe) 50 ml IV Q30MIN PRN; Protocol PRN Reason: Hypoglycemia Last Admin: 02/14/22 18:10 Dose: 50 ml Famotidine (Famotidine 20 Mg Tab) 20 mg FEEDTUBE BID JAMIL Last Admin: 02/15/22 09:53 Dose: 20 mg Fentanyl (Fentanyl 100 Mcg/2 Ml Inj) 50 mcg IV Q10MIN PRN PRN Reason: ANALGESIA Last Admin: 02/12/22 20:00 Dose: 50 mcg Fentanyl (Fentanyl 100 Mcg/2 Ml Inj) 50 mcg IV Q2H PRN PRN Reason: VENT SYNCHRONY/AGITATION Last Admin: 02/12/22 17:35 Dose: 50 mcg Hydrocortisone Sodium Succinate (Hydrocortisone Sod Succ 100 Mg/2 Ml Vial) 50 mg IV Q12H JAMIL Last Admin: 02/15/22 03:12 Dose: 50 mg Hydrophilic Ointment (Lip Therapy Vaseline) 1 applic TP Q2HR PRN PRN Reason: Dry Lips NORepinephrine/NS 8 MG-250 ML (Norepinephrine/Ns 8 Mg-250 Ml (Double Conc)) 8 mg in 250 mls @ 3.75 mls/hr IV TITRATE JAMIL; Protocol Last Titration: 02/07/22 19:18 Dose: 0 mcg/min, 0 mls/hr Propofol (Diprivan 10 Mg/Ml) 1,000 mg in 100 mls @ 1.429 mls/hr IV TITR JAMIL; Protocol Last Titration: 02/08/22 16:30 Dose: 0 mcg/kg/min, 0 mls/hr Fentanyl Citrate (Fentanyl Drip Premix) 2,000 mcg in 100 mls @ 2.381 mls/hr IV TITR JAMIL; Protocol Last Titration: 02/15/22 04:42 Dose: 2 mcg/kg/hr, 4.763 mls/hr Phenylephrine HCl 100 mg/ (Sodium Chloride) 100 mls @ 3 mls/hr IV TITR JAMIL; Protocol Last Titration: 02/07/22 19:18 Dose: 0 mcg/min, 0 mls/hr Sodium Chloride (Nacl 0.9% 500 Ml) 500 mls @ 5 mls/hr IV DIRECT JAMIL Last Admin: 02/08/22 05:21 Dose: 5 mls/hr Vasopressin 20 unit/ Sodium (Chloride) 101 mls @ 9.09 mls/hr IV TITR JAMIL; Protocol Last Titration: 02/07/22 19:18 Dose: 0 units/min, 0 mls/hr Insulin Glargine (Insulin Glargine 100 Units/Ml) 20 units SUB-Q QHS [facility] Last Admin: 02/14/22 21:41 Dose: 20 units Insulin Human Regular (Insulin Regular, Human 100 Units/1 Ml) 0 units SUB-Q Q6H [facility]; Protocol Last Admin: 02/15/22 06:26 Dose: 4 units Multi-Ingred Cream/Lotion/Oil/Oint (Mineral Oil/Petrolatum, White Ophth Oint 3.5 Gm) 1 applic OU Q4HR PRN PRN Reason: Dry Eye(s) Nitroglycerin (Nitroglycerin 2% Oint 1 Gm) 0.5 inch TP BIDNTG [facility]; Protocol Last Admin: 02/15/22 06:26 Dose: 0.5 inch Ondansetron HCl (Ondansetron 4 Mg/2 Ml Inj) 4 mg IV Q8H PRN PRN Reason: Nausea And Vomiting Quetiapine Fumarate (Quetiapine 25 Mg Tab) 50 mg PO BID [facility] Last Admin: 02/15/22 09:52 Dose: 50 mg Senna/Docusate Sodium (Sennosides/Docusate Sodium 8.6/50 Mg Tab) 2 tab PO Q12H [facility] Last Admin: 02/15/22 09:54 Dose: Not Given Simple Syrup (Simple Syrup 15 Ml) 15 ml FEEDTUBE PRN PRN PRN Reason: Hypoglycemia Simple Syrup (Simple Syrup 15 Ml) 30 ml FEEDTUBE PRN PRN PRN Reason: Hypoglycemia Sodium Bicarbonate (Sodium Bicarbonate 325 Mg Tab) 325 mg FEEDTUBE PRN PRN PRN Reason: For Clogged Feeding Tube Sodium Chloride (Sodium Chloride 0.9% 10 Ml Flush Syringe) 10 ml IV BID JAMIL Last Admin: 02/15/22 09:54 Dose: 10 ml Sodium Chloride (Sodium Chloride 0.9% 10 Ml Flush Syringe) 10 ml IV PRN PRN PRN Reason: LINE FLUSH Last Admin: 02/09/22 05:59 Dose: 10 ml Review of Systems ROS unobtainable: due to endotracheal tube, due to mental status Exam Vital Signs Temp Pulse Resp BP Pulse Ox 98.8 F 120 H 18 133/97 100 01/31/22 17:50 01/31/22 17:50 01/31/22 17:50 01/31/22 17:50 01/31/22 17:50 Narrative exam: Gen.: Arousable on vent but does not follow commands. On sedation. No apparent distress ENT: Trachea midline. ETT and OGT in place. No lymphadenopathy. No scleral icterus or conjunctival pallor CV: S1, S2 present Respiratory: No audible wheezes Abdomen: Soft, nondistended, nontender. incisional hernia. Multiple well healed surgical scars - midline/exlap and lap. No rebound, rigidity, guarding Extremities: No clubbing, cyanosis, edema Results - Labs 02/15/22 03:31 02/14/22 09:03 Abnormal lab results 02/14/22 02/14/22 02/14/22 Range/Units 18:07 18:10 18:36 WBC (4.5-11.0) K/mm3 Hgb (10.1-14.3) gm/dl Hct (30.3-42.9) % MCV (79-97) fl MCH (28-32) pg RDW (13.2-15.2) % ABG pH 7.518 H (7.350-7.450) pH Units ABG pO2 97.1 H (80.0-90.0) mm Hg ABG HCO3 38.8 H (20.0-26.0) mmol/L ABG Base Excess 13.8 H (-2.0-3.0) mmol/L POC Glucose 29 L 143 H (70-105) mg/dL 02/14/22 02/15/22 02/15/22 Range/Units 23:44 03:31 05:23 WBC 20.1 H (4.5-11.0) K/mm3 Hgb 8.4 L (10.1-14.3) gm/dl Hct 26.6 L (30.3-42.9) % MCV 69 L (79-97) fl MCH 22 L (28-32) pg RDW 31.5 H (13.2-15.2) % ABG pH (7.350-7.450) pH Units ABG pO2 (80.0-90.0) mm Hg ABG HCO3 (20.0-26.0) mmol/L ABG Base Excess (-2.0-3.0) mmol/L POC Glucose 229 H 232 H (70-105) mg/dL 02/15/22 Range/Units 11:32 WBC (4.5-11.0) K/mm3 Hgb (10.1-14.3) gm/dl Hct (30.3-42.9) % MCV (79-97) fl MCH (28-32) pg RDW (13.2-15.2) % ABG pH (7.350-7.450) pH Units ABG pO2 (80.0-90.0) mm Hg ABG HCO3 (20.0-26.0) mmol/L ABG Base Excess (-2.0-3.0) mmol/L POC Glucose 160 H (70-105) mg/dL - Imaging Chest x-ray: report reviewed, image reviewed Abdominal x-ray: report reviewed, image reviewed Assessment and Plan 61 yo F with VDRF Vent: FIO2 30%, PEEP 6 Plan: 1. Vent management per ICU team 2. steffen TF 3. obtain CT A/P to further evaluate abd anatomy. Full abd surgical hx unknown. 4. Discussed trach and PEG with the patient's daughter over telephone. All risks, benefits, alternatives to surgery as well as indications for the procedure discussed. Consent obtained. 5. Obtain COVID test 6. Added to OR schedule for Friday02/18/22 afternoon. Will hold TF after MN 02/17/[address] Hudson and patient's RN. Thank you for this consultation. Please call with any questions or concerns. Evaluation and treatment of this patient was during the time of the national and state emergency arising from COVID19 coronavirus pandemic. Treatment and procedures performed meet the current and available best practice and guidelines for patient during the COVID pandemic.
[2022-02-15] MEDS ORDERED: predniSONE 20 MG TAB FEEDTUBE SCH (13:00)
--- NOTE | 2022-02-15 14:21 | Progress Note ---
<CARLOSRADHANelson - Last Filed: 02/15/22 14:25> Assessment and Plan Assessment and plan: This is a 61 year old female with DM, Dementia, HLD, HTN admitted with DKA s/p cardiac arrest on 02/01 Neuro: Acute metabolic encephalopathy, h/o dementia -Neurology consulted, appreciate recommendations -Serouqel bid -Fentanyl gtt-> dc post extubation -RASS goal 0 to -1 -Reorientation as needed -As needed analgesia Cardiac: s/p PEA cardiac arrest on 02/01, SVT, h/o HLD and HTN -Cardiology consulted, appreciate recommendations -s/p cardiac arrest on 02/01 -Blood pressure monitoring per protocol -s/p Vasopressor support with Levophed -MAP goal greater than 65 -Echocardiogram LVEF 55 to 60% Respiratory: Acute hypoxic respiratory failure, ARDS -[facility] consulted, appreciate recommendations -Intubated on 02/01 with 7.0 OETT at 21 at the lips, extubated 02/14 and reintubated 02/14 -A.m. vent settings: AC TV 350, Rate 12, Peep 6, FiO2 40% -02/04 s/p Bronchoscopy at the bedside by CCM -A.m. ABG and CXR noted -VAP bundle -SPO2 monitoring GI: Mod protein venu malnutrition, transaminitis (resolving) -24 hours -92 mL -PPI -NTR consulted for tube feedings -BR: Senokot S : NAD -FWF 250 q4 -Monitor intake and output -Renally dose medications -Avoid nephrotoxic medications -s/p bicarbonate drip -Trend BMP ID: Sepsis, UTI, lactic acidosis -Presented with tachycardia, leukocytosis, pyuria on UA developed pancytopenia, hypotension, tachycardia -Infectious disease consulted, appreciate recommendations -s/p antibiotic therapy with rocephin -UA consistent with pyuria, Blood cultures with NGTD -Sputum culture with Klebsiella Pneumoniae -covid pcr (-) -f/u blood culture -Monitor WBC and temperature curve Endo: s/p DKA, h/o DM -Presented with severe metabolic acidosis, blood glucose in 300s -s/p insulin drip -Avoid hypoglycemia -Hemoglobin A1c 11.1 -SSI -Accu-Cheks q. every 6 -Long-acting insulin, titrate as needed Heme: Anemia, BLE ischemia -Hem/onc and vascular surgery consulted, appreciate recommendations -Bilateral lower extremity ultrasound negative for DVT -Bilateral lower extremity arterial duplex shows multifocal arthrosclerotic disease throughout bilateral lower extremities, transition into biphasic and monophasic waveforms bilaterally suggesting hemodynamically significant narrowing of each respective segment, no arterial occlusion or other proximal flow limiting stenosis -Recommend Plavix but will delay in setting of anemia -Trend CBC -s/p 2 unit PRBC -Transfuse hemoglobin less than 7 -SCDs to BLE while in bed The high probability of a clinically significant, sudden or life threatening deterioration of the [multi] system(s) required my full and direct attention, intervention and personal management. The aggregate critical care time was [60] minutes. This time is in addition to time spent performing reported procedures but includes the following: [x] Data Review and interpretation [x] Patient assessment and monitoring of vital signs [x] Documentation [x] Medication orders and management Disposition Plan: icu Total Time Spent with Patient (Minutes): 60 History Interval history: This is a 61-year-old female is a resident of a custodial with DM,, dementia (possibly Wernickes per daughter), hyperlipidemia, and hypertension who presents to the hospital on 01/31 from [facility] for hypoglycemia. In the ED patient was found to be tachycardic, tachypneic and lab work showed hyper kalemia, hyperchloremia, high anion gap metabolic acidosis with leukocytosis and UA showed pyuria. Patient was admitted to the hospitalist service. Hospital course to date: 02/01: patient was transferred to ICU as lab work was consistent with DKA and started on insulin drip. Central line placed for IV access. Patient was given bicarb push and started on a bicarb drip. She was also started on Rocephin due to UTI however antibiotics are broadened to cefepime and vancomycin. 02/02: s/p cardiac arrest on 02/01. Bicarbonate drip discontinued. Pancytopenia noted, anion gap closed and transitioned to SSI and long-acting insulin. Patient was having hypoglycemia this morning which has been corrected now. Started on tube feeding. Potassium and phosphorus will be repleted. Hypernatremia noted and FWF started with tube feedings. COVID-19 PCR pending. Venous Doppler ultrasound pending. Neurology and cardiology consulted. Echocardiogram pending. Patient currently on Levophed and sedated with propofol. Fentanyl added. Given 1 LR bolus this morning for hypotension. 02/03: LR bolus x2, remains on levophed, tachycardia and EKG completed which shows tachycardia. Increase in FiO2, Will culture with next temp spike. Will give 1 gm Calcium Gluconate. 02/04: S/p Bronch this am by CCM at the bedside. Patient still spiking high temp despite broad spectrum IV Abx. Remains on high pressors with worsen neutropenia and thrombocytopenia. Will panculture this am, antifungal culture was also ordered. Continue current empiric IV Abx for now, awaiting sensitivity. Will also consult ID for further eval. Possible Hematology consult for pancytopenia per CCM. Possible family meeting with [facility] this week, case management to arrange. 02/05: Back up on full support on the vent. CXR with worsen bilateral opacities, S/p X1 dose of IV lasix. Patient also received 1units of PRBCs overnight due to anemia, H&H stable this am and no s/s of any active bleeding. Patient remains pancytopenic, still febrile. IV abx changed to Merrem and Vanc per ID, hematology consult pending. ST with episodes of SVT this am, plan for amiodarone gtt per Cardio. Off pressors this am. BP remains boderline, 25% IV Albumin and X1 dose of additional IV lasix gain today per CCM. Continue FWF for hypernatremia. Lantus adjusted due to hypoglycemia. Possible family meeting tomorrow with [facility]. 02/06: Decompensated this am, sudden drop in SPO2 in the 80s, HR in the 50s, and MAP in the 40s. Back on 2 pressors, on 100% FIO2 and 12 of peep. Stat ABG pending, 1amp Bcarb given, stress dose steroids initiated. This an CXR reviewed with worsen opacities from prior. Patient remains on IV abx per ID. Hematology recommendations appreciated. Event discussed with CCM who agreed with current intervention. Patient's daughter and sister were notified via phone. Current events, patient's diagnosis, overal condition, and poor prognosis were thoroughly discussed. GOC was also addressed with patient's daughter and sister, they voiced that if patient was able to speak for herself she would want all lifesaving measures, including CPR and medications if her heart stop. All questions and concerns were addressed at this time. They verbalized understanding and agreed with current care plan. Patient remains a FULL code status at This time. 8/4: Responded well to IV lasix and albumin overnight. CXR with some improvement today. IV lasix and albumin gain today per [facility]. With increased WOB and tachpnea this am, low dose propofol added for RASS goal of 0 to -2. Wean FIO2 as tolerated for SPO2 goal above 92%. Worsen hyperglycemia this am, most like due to IV steroids, insulin therapy adjusted. Monitor and replace electrolytes as needed. Family meeting today with [facility], patient remains a FULL code status. 02/08: Tolerating gentle diurese. Patient missed overnight IV lasix/albumin dose, will repeat another dose this morning. Continue to wean Fio2 as tolerated. Remains off pressors, VSS. Concern for BLE ischemia probably due to hypoperfusion vs pressor use. Will check BLE arterial doppler to r/o occlusion. Possible Vascular Surgery consult dependent on doppler result. Lantus adjusted for persisting hyperglycemia. Electrolytes repleted, monitor and replace electrolytes as needed. 8: This am ABG and CXR with some improvement this am. Down to 55% Fio2 this am. Hypotensive overnight required short duration of Levophed gtt, pressor is off this am. Will hold on IV diuretic today. Continue to monitor for now. Electrolytes repleted, monitor and replace electrolytes as needed. Prior history of psych issues, seroquel added BID. BLE doppler pending. 02/10: Remains stable on the vent. Down to 40% Fio2 and peep of 10 this am, SPO2 above 95%, CXR is unchanged. Continue vent wean as tolerated. Remains on IV steroid, will start tapering tomorrow. Per [facility], plan is to optimize patient on the vent for possible trach and PEG. FWF increased for persistent hypernatremia. K and phos repleted. Continue to monitor and replace electrolytes as needed. 02/11: Water flush continued at 300 mL every 4, potassium repleted, remains on vasopressors. No acute events reported overnight. intiate seriod taper 02/12: Patient being weaned down IV fentanyl pushes ordered, Lantus decreased, decreased PEEP and RT placed on pressure support this afternoon. No acute events overnight. 02/13: Patient attempted on PSV again today, steroids continue to be tapered. Tentative extubation tomorrow was supplanted by [facility]. Patient only lasted 3 hours again today. Vascular surgery consult completed and recommended plavix. 02/14: Patient was extubated today to nasal cannula. This afternoon she was started on high flow nasal cannula. No acute events reported overnight. Steroids tapered. Femoral A-line removed. 02/15: No acute events reported overnight. Surgery consulted for trach/PEG.. COVID-[address] abdomen/pelvis pending. Possible trach/PEG placement on 02/18. Hospitalist Physical - Constitutional Vitals: Temp Pulse Resp BP Pulse Ox 98.9 F 116 H 22 141/106 99 02/15/22 12:00 02/15/22 14:01 02/15/22 14:01 02/15/22 14:01 02/15/22 14:01 General appearance: Present: no acute distress - EENT Eyes: Present: PERRL, EOM intact ENT: hearing intact, clear oral mucosa - Neck Neck: Present: normal ROM - Respiratory Respiratory effort: normal Respiratory: bilateral: diminished - Cardiovascular Rhythm: regular Heart Sounds: Present: S1 & S2. Absent: systolic murmur, diastolic murmur - Extremities Extremities: no ischemia, pulses intact, pulses symmetrical, normal temperature, normal color Extremity abnormal: edema Peripheral Pulses: within normal limits - Abdominal General gastrointestinal: soft, non-tender, non-distended, normal bowel sounds - Integumentary Integumentary: Present: warm, dry - Psychiatric Psychiatric: other - Neurologic Neurologic: other (intact cough/gag, perrl) - Allied Health Allied health notes reviewed: nursing, RT, social work HEART Score - HEART Score Troponin: Troponin T < 0.010 ng/mL (0.00-0.029) 02/03/22 16:15 Results - Labs CBC & Chem 7: 02/15/22 03:31 02/14/22 09:03 Labs: Laboratory Last Values WBC 20.1 K/mm3 (4.5-11.0) H 02/15/22 03:31 RBC 3.85 M/mm3 (3.65-5.03) 02/15/22 03:31 Hgb 8.4 gm/dl (10.1-14.3) L 02/15/22 03:31 Hct 26.6 % (30.3-42.9) L 02/15/22 03:31 MCV 69 fl (79-97) L 02/15/22 03:31 MCH 22 pg (28-32) L 02/15/22 03:31 MCHC 31 % (30-34) 02/15/22 03:31 RDW 31.5 % (13.2-15.2) H 02/15/22 03:31 Plt Count 370 K/mm3 (140-440) 02/15/22 03:31 Lymph % (Auto) Medical Billing And Coding Instructor 02/02/22 04:00 Add Manual Diff Complete 02/03/22 04:00 Total Counted 50 02/03/22 04:00 Seg Neutrophils % Medical Billing And Coding Instructor 02/02/22 04:00 Seg Neuts % (Manual) 76.0 % (40.0-70.0) H 02/03/22 04:00 Band Neutrophils % 18.0 % 02/03/22 04:00 Lymphocytes % (Manual) 2.0 % (13.4-35.0) L 02/03/22 04:00 Reactive Lymphs % (Man) 0 % 02/03/22 04:00 Monocytes % (Manual) 4.0 % (0.0-7.3) 02/03/22 04:00 Eosinophils % (Manual) 0 % (0.0-4.3) 02/03/22 04:00 Basophils % (Manual) 0 % (0.0-1.8) 02/03/22 04:00 Metamyelocytes % 0 % 02/03/22 04:00 Myelocytes % 0 % 02/03/22 04:00 Promyelocytes % 0 % 02/03/22 04:00 Blast Cells % 0 % 02/03/22 04:00 Nucleated RBC % 4.0 % (0.0-0.9) H 02/03/22 04:00 Seg Neutrophils # Man 2.8 K/mm3 (1.8-7.7) 02/03/22 04:00 Band Neutrophils # 0.7 K/mm3 02/03/22 04:00 Lymphocytes # (Manual) 0.1 K/mm3 (1.2-5.4) L 02/03/22 04:00 Abs React Lymphs (Man) 0.0 K/mm3 02/03/22 04:00 Monocytes # (Manual) 0.1 K/mm3 (0.0-0.8) 02/03/22 04:00 Eosinophils # (Manual) 0.0 K/mm3 (0.0-0.4) 02/03/22 04:00 Basophils # (Manual) 0.0 K/mm3 (0.0-0.1) 02/03/22 04:00 Metamyelocytes # 0.0 K/mm3 02/03/22 04:00 Myelocytes # 0.0 K/mm3 02/03/22 04:00 Promyelocytes # 0.0 K/mm3 02/03/22 04:00 Blast Cells # 0.0 K/mm3 02/03/22 04:00 WBC Morphology Not Reportable 02/03/22 04:00 Hypersegmented Neuts Not Reportable 02/03/22 04:00 Hyposegmented Neuts Not Reportable 02/03/22 04:00 Hypogranular Neuts Not Reportable 02/03/22 04:00 Smudge Cells Not Reportable 02/03/22 04:00 Toxic Granulation Not Reportable 02/03/22 04:00 Toxic Vacuolation Not Reportable 02/03/22 04:00 Dohle Bodies Few 02/03/22 04:00 Pelger-Huet Anomaly Not Reportable 02/03/22 04:00 Sung Rods Not Reportable 02/03/22 04:00 Platelet Estimate Consistent w auto 02/03/22 04:00 Clumped Platelets Not Reportable 02/03/22 04:00 Plt Clumps, EDTA Not Reportable 02/03/22 04:00 Large Platelets Not Reportable 02/03/22 04:00 Giant Platelets Not Reportable 02/03/22 04:00 Platelet Satelliting Not Reportable 02/03/22 04:00 Plt Morphology Comment Not Reportable 02/03/22 04:00 RBC Morphology Not Reportable 02/03/22 04:00 Dimorphic RBCs Not Reportable 02/03/22 04:00 Polychromasia Not Reportable 02/03/22 04:00 Hypochromasia 3+ 02/03/22 04:00 Poikilocytosis 2+ 02/03/22 04:00 Anisocytosis 1+ 02/03/22 04:00 Microcytosis 2+ 02/03/22 04:00 Macrocytosis Not Reportable 02/03/22 04:00 Spherocytes Not Reportable 02/03/22 04:00 Pappenheimer Bodies Not Reportable 02/03/22 04:00 Sickle Cells Not Reportable 02/03/22 04:00 Target Cells 1+ 02/03/22 04:00 Tear Drop Cells Few 02/03/22 04:00 Ovalocytes Few 02/03/22 04:00 Helmet Cells Not Reportable 02/03/22 04:00 Starr-Jeannette Bodies Not Reportable 02/03/22 04:00 [place] Rings Not Reportable 02/03/22 04:00 Napoleon Cells 1+ 02/03/22 04:00 Bite Cells Not Reportable 02/03/22 04:00 Crenated Cell Not Reportable 02/03/22 04:00 Elliptocytes Few 02/03/22 04:00 Acanthocytes (Spur) Not Reportable 02/03/22 04:00 Rouleaux Not Reportable 02/03/22 04:00 Hemoglobin C Crystals Not Reportable 02/03/22 04:00 Schistocytes Rare 02/03/22 04:00 Malaria parasites Not Reportable 02/03/22 04:00 Percent Retic 0.65 % (0.78-2.58) L 02/08/22 03:55 Sven Bodies Not Reportable 02/03/22 04:00 Hem Pathologist Commnt No 02/03/22 04:00 PT 14.8 Sec. (12.2-14.9) 02/05/22 08:48 INR 1.02 (0.87-1.13) 02/05/22 08:48 APTT 34.4 Sec. (24.2-36.6) 02/05/22 08:48 Fibrinogen 795 mg/dl (211-480) H 02/05/22 08:48 ABG pH 7.518 pH Units (7.350-7.450) H 02/14/22 18:10 POC ABG pCO2 37.3 mmHg (32.0-48.0) 02/02/22 04:49 ABG pCO2 48.9 mm Hg 02/14/22 18:10 POC ABG pO2 79.9 mmHg (83-108) L 02/02/22 04:49 ABG pO2 97.1 mm Hg (80.0-90.0) H 02/14/22 18:10 POC ABG HCO3 30.3 02/02/22 04:49 ABG HCO3 38.8 mmol/L (20.0-26.0) H 02/14/22 18:10 ABG O2 Saturation 97.9 % (95.0-99.0) 02/14/22 18:10 ABG O2 Content 20.8 (0.0-44) 02/14/22 18:10 POC ABG Base Excess 7.1 02/02/22 04:49 ABG Base Excess 13.8 mmol/L (-2.0-3.0) H 02/14/22 18:10 ABG Hemoglobin 12.6 gm/dl (12.0-16.0) 02/14/22 18:10 ABG Oxyhemoglobin 96.0 (94-98) 02/02/22 04:49 ABG Carboxyhemoglobin 1.9 % (0.0-5.0) 02/14/22 18:10 ABG Methemoglobin 0.4 % (0.0-1.5) 02/14/22 18:10 ABG Sodium Not Reportable 02/02/22 04:49 ABG Potassium Not Reportable 02/02/22 04:49 ABG Chloride Not Reportable 02/02/22 04:49 ABG Glucose Not Reportable 02/02/22 04:49 Oxyhemoglobin 95.6 % (95.0-99.0) 02/14/22 18:10 Carboxyhemoglobin 0.2 (0.5-1.5) L 02/02/22 04:49 FiO2 40 % 02/14/22 18:10 FiO2 % 60.0 02/02/22 04:49 Sodium 145 mmol/L (137-145) 02/14/22 09:03 Potassium 4.0 mmol/L (3.6-5.0) 02/14/22 09:03 Chloride 101.4 mmol/L (98-107) 02/14/22 09:03 Carbon Dioxide 39 mmol/L (22-30) H 02/14/22 09:03 Anion Gap 9 mmol/L 02/14/22 09:03 BUN 20 mg/dL (7-17) H 02/14/22 09:03 Creatinine 0.4 mg/dL (0.6-1.2) L 02/14/22 09:03 Estimated GFR > 60 ml/min 02/14/22 09:03 BUN/Creatinine Ratio 50 % 02/14/22 09:03 Glucose 144 mg/dL (65-100) H 02/14/22 09:03 POC Glucose 160 mg/dL (70-105) H 02/15/22 11:32 Hemoglobin A1c 11.1 % (4-6) H 02/01/22 12:54 Lactic Acid 2.50 mmol/L (0.7-2.0) H* 02/06/22 11:50 Calcium 8.3 mg/dL (8.4-10.2) L 02/14/22 09:03 Phosphorus 3.90 mg/dL (2.5-4.5) 02/15/22 09:12 Magnesium 2.20 mg/dL (1.7-2.3) 02/15/22 09:12 Total Bilirubin 0.30 mg/dL (0.1-1.2) 02/13/22 04:00 Direct Bilirubin < 0.2 mg/dL (0-0.2) 02/13/22 04:00 Indirect Bilirubin 0.1 mg/dL 02/13/22 04:00 AST 30 units/L (5-40) 02/13/22 04:00 ALT 58 units/L (7-56) H 02/13/22 04:00 Alkaline Phosphatase 143 units/L (35-129) H 02/13/22 04:00 Lactate Dehydrogenase 879 units/L (91-180) H 02/05/22 04:40 Troponin T < 0.010 ng/mL (0.00-0.029) 02/03/22 16:15 Total Protein 4.7 g/dL (6.3-8.2) L 02/13/22 04:00 Albumin 2.2 g/dL (3.9-5) L 02/13/22 04:00 Albumin/Globulin Ratio 0.9 % 02/13/22 04:00 Arterial Blood Glucose Not Reportable 02/02/22 04:49 Urine Color Yellow (Yellow) 02/04/22 09:15 Urine Turbidity Cloudy (Clear) 02/04/22 09:15 Urine pH 6.0 (5.0-7.0) 02/04/22 09:15 Ur Specific [place] 1.025 (1.003-1.030) 02/04/22 09:15 Urine Protein >500 mg/dL (Negative) 02/04/22 09:15 Urine Glucose (UA) Negative mg/dL (Negative) 02/04/22 09:15 Urine Ketones Negative mg/dL (Negative) 02/04/22 09:15 Urine Blood Large (Negative) A 02/04/22 09:15 Urine Nitrite Negative (Negative) 02/04/22 09:15 Ur Reducing Substances Not Reportable 01/31/22 22:49 Urine Bilirubin Negative (Negative) 02/04/22 09:15 Urine Ictotest Not Reportable 01/31/22 22:49 Urine Urobilinogen < 2.0 mg/dL (<2.0) 02/04/22 09:15 Ur Leukocyte Esterase Negative (Negative) 02/04/22 09:15 Urine WBC (Auto) 12.0 /HPF (0.0-6.0) H 02/04/22 09:15 Urine RBC (Auto) 107.0 /HPF (0.0-6.0) 02/04/22 09:15 U Epithel Cells (Auto) 1.0 /HPF (0-13.0) 02/04/22 09:15 Urine Bacteria (Auto) 1+ /HPF (Negative) 02/04/22 09:15 Urine Mucus Few /HPF 02/04/22 09:15 Urine Yeast (Budding) 2+ /HPF 02/04/22 09:15 Vancomycin Trough 28.6 ug/mL (5.0-20.0) H 02/05/22 Unknown Coronavirus (PCR) Negative (Negative) 02/02/22 10:44 SARS-CoV-2 (PCR) Negative (Negative) 02/01/22 08:50 HIV 1&2 Antibody Rapid Non react (Non React) 02/04/22 14:37 HIV P24 Antigen Non react (Non React) 02/04/22 14:37 Blood Type A POSITIVE 02/13/22 09:41 Antibody Screen Negative 02/13/22 09:41 Crossmatch See Detail 02/13/22 09:41 Gastelum/IV: Voiding Method External Female Catheter Active Medications - Current Medications Current Medications: Generic Name Dose Route Start Last Admin Trade Name Freq PRN Reason Stop Dose Admin Acetaminophen 650 mg 02/01/22 00:57 02/04/22 11:58 Acetaminophen 325 Mg Tab PO 650 mg Q4H PRN Administration Pain MILD(1-3)/Fever >100.5/ROSADO Albuterol 2.5 mg 02/01/22 00:57 Albuterol 2.5 Mg/3 Ml Nebu IH Q3HRT PRN Shortness Of Breath Lipase/Protease/Amylase 1 each 02/02/22 08:08 Lipase 10,500/Protease 25,000/Amylase 43,750 (Units) Dr Cap FEEDTUBE PRN PRN For Clogged Feeding Tube Atorvastatin Calcium 20 mg 02/03/22 22:00 02/14/22 21:41 Atorvastatin 20 Mg Tab FEEDTUBE 20 mg QHS JAMIL Administration Dextrose 50 ml 02/02/22 08:00 02/14/22 18:10 Dextrose 50% In Water (25gm) 50 Ml Syringe IV 50 ml Q30MIN PRN Administration Hypoglycemia Protocol Famotidine 20 mg 02/04/22 10:00 02/15/22 09:53 Famotidine 20 Mg Tab FEEDTUBE 20 mg BID JAMIL Administration Fentanyl 50 mcg 02/02/22 09:45 02/12/22 20:00 Fentanyl 100 Mcg/2 Ml Inj IV 50 mcg Q10MIN PRN Administration ANALGESIA Fentanyl 50 mcg 02/12/22 10:11 02/12/22 17:35 Fentanyl 100 Mcg/2 Ml Inj IV 50 mcg Q2H PRN Administration VENT SYNCHRONY/AGITATION Hydrophilic Ointment 1 applic 02/01/22 18:52 Lip Therapy Vaseline TP Q2HR PRN Dry Lips NORepinephrine/NS 8 MG-250 ML 8 mg in 250 mls @ 3.75 mls/hr 02/01/22 20:00 02/07/22 19:18 Norepinephrine/Ns 8 Mg-250 Ml (Double Conc) IV 0 mcg/min TITRATE JAMIL 0 mls/hr Titration Protocol 2 MCG/MIN Propofol 1,000 mg in 100 mls @ 1.429 mls/hr 02/01/22 19:17 02/08/22 16:30 Diprivan 10 Mg/Ml IV 0 mcg/kg/min TITR JAMIL 0 mls/hr Titration Protocol 5 MCG/KG/MIN Fentanyl Citrate 2,000 mcg in 100 mls @ 2.381 mls/hr 02/02/22 10:00 02/15/22 12:49 Fentanyl Drip Premix IV 1 mcg/kg/hr TITR JAMIL 2.381 mls/hr Titration Protocol 1 MCG/KG/HR Phenylephrine HCl 100 mg/ 100 mls @ 3 mls/hr 02/03/22 14:15 02/07/22 19:18 Sodium Chloride IV 0 mcg/min TITR JAMIL 0 mls/hr Titration Protocol 50 MCG/MIN Sodium Chloride 500 mls @ 5 mls/hr 02/04/22 03:00 02/08/22 05:21 Nacl 0.9% 500 Ml IV 5 mls/hr DIRECT JAMIL Administration Vasopressin 20 unit/ Sodium 101 mls @ 9.09 mls/hr 02/04/22 09:15 02/07/22 19:18 Chloride IV 0 units/min TITR JAMIL 0 mls/hr Titration Protocol 0.03 UNITS/MIN Insulin Glargine 20 units 02/12/22 22:00 02/14/22 21:41 Insulin Glargine 100 Units/Ml SUB-Q 20 units QHS JAMIL Administration Insulin Human Regular 0 units 02/02/22 18:00 02/15/22 13:23 Insulin Regular, Human 100 Units/1 Ml SUB-Q 3 units Q6H JAMIL Administration Protocol Multi-Ingred Cream/Lotion/Oil/Oint 1 applic 02/01/22 18:52 Mineral Oil/Petrolatum, White Ophth Oint 3.5 Gm OU Q4HR PRN Dry Eye(s) Nitroglycerin 0.5 inch 02/11/22 14:00 02/15/22 13:23 Nitroglycerin 2% Oint 1 Gm TP 0.5 inch BIDNTG JAMIL Administration Protocol Ondansetron HCl 4 mg 02/01/22 00:57 Ondansetron 4 Mg/2 Ml Inj IV Q8H PRN Nausea And Vomiting Prednisone 50 mg 02/16/22 10:00 Prednisone 50 Mg Tab FEEDTUBE 02/19/22 09:59 QDAY JAMIL Prednisone 40 mg 02/20/22 10:00 Prednisone 20 Mg Tab FEEDTUBE 02/23/22 09:59 QDAY JAMIL Prednisone 30 mg 02/24/22 10:00 Prednisone 20 Mg Tab FEEDTUBE 02/27/22 09:59 QDAY JAMIL Prednisone 20 mg 02/15/22 13:00 02/15/22 13:23 Prednisone 20 Mg Tab FEEDTUBE 02/15/22 23:59 20 mg ONCE JAMIL Administration Quetiapine Fumarate 50 mg 02/09/22 10:00 02/15/22 09:52 Quetiapine 25 Mg Tab PO 50 mg BID JAMIL Administration Senna/Docusate Sodium 2 tab 02/07/22 10:00 02/15/22 09:54 Sennosides/Docusate Sodium 8.6/50 Mg Tab PO Not Given Q12H JAMIL Simple Syrup 15 ml 02/02/22 08:08 Simple Syrup 15 Ml FEEDTUBE PRN PRN Hypoglycemia Simple Syrup 30 ml 02/02/22 08:08 Simple Syrup 15 Ml FEEDTUBE PRN PRN Hypoglycemia Sodium Bicarbonate 325 mg 02/02/22 08:08 Sodium Bicarbonate 325 Mg Tab FEEDTUBE PRN PRN For Clogged Feeding Tube Sodium Chloride 10 ml 02/01/22 10:00 02/15/22 09:54 Sodium Chloride 0.9% 10 Ml Flush Syringe IV 10 ml BID JAMIL Administration Sodium Chloride 10 ml 02/01/22 00:57 02/09/22 05:59 Sodium Chloride 0.9% 10 Ml Flush Syringe IV 10 ml PRN PRN Administration LINE FLUSH Nutrition/Malnutrition Assess - Dietary Evaluation Nutrition/Malnutrition Findings: Nutrition Notes Start: 02/01/22 17:50 Freq: Status: Active Protocol: Document 02/13/22 10:51 JACQUELINE (Rec: 02/13/22 11:11 JACQUELINE [id number]) Nutrition Notes Initial or Follow up Assessment Current Diagnosis Diabetes,Sepsis,Respiratory Failure Other Pertinent Diagnosis s/p DKA, s/p PEA Arrest, Pneumonia, Pyuria, Pancytopenia, UTI, ... Current Diet TF-Glucerna 1.2 Venu @ 55 ml/hr (since L 02/04). Labs/Tests 02/13: Na 146, CO2 38, BUN 25, Crea 0.4, Glu 235, Ca 8.0. Pertinent Medications 02/13: Lantus 20U, Humulin 6U, others nutritionally unremarkable. Height 5 ft 4 in Weight 48.8 kg [place] Body Weight (kg) 54.54 BMI 18.4 Weight change and time frame 2.3 Kg body weight gain reported in 1 week. Weight Status Underweight Subjective/Other Information RD consult for TF tolerance/ continuation. TF continues as prescribed, and well tolerated, according to RN notes. Pt remains on Mechanical Ventilation, O2 saturation @ 100%, according to Physical Assessment History notes. Pt remains incontinent, according to Physical Assessment History notes. Plans for extubation on 02/14 am, according to Progress notes. Percent of energy/protein needs met: Prescribed TF-Glucerna 1.2 Venu @ 55 ml/hr provides for energy/protein needs (1584 Kcal/79 g) during LOS, 97% Kcal; 100% AA. Burn Absent Trauma Absent GI Symptoms None Difficulty In Swallowing Food Allergy No Skin Integrity/Comment Unspecified area of concern. Current % PO Other Minimum of two criteria No Fluid Accumulation N/A Reduced Director Case Strength N/A (non-severe) Protein-Calorie Malnutrition N\A #1 Nutrition Diagnosis Inadequate oral intake Diagnosis Progress(for reassessment Continues documentation) Is patient on ventilator? Yes Is Patient Ambulatory and/or Out of Bed No REE-([facility]-confined to bed) 1262.676 Kcal/Kg value to use for calculation 34 Approximate Energy Requirements Using 1659 kcal/Kg Calculation Used for Recommendations Kcal/kg Additional Notes Protein: 1.2-2 g/Kg ABW; 56-93 g/day. Fluids: 1 ml/Kcal, or as per MD. Nutrition Intervention Nutrition Support: Continue TF-Glucerna 1.2 Venu @ 55 ml/hr. Flush: 250 ml water Q 4 hr while hypernatremia persists, resume to 100 ml when Na is WNL. Kcal 1,584 Protein (gm) 79 Carbohydrates (gm) 151 Fat (gm) 79 Fluid (mL) 1,063 Fiber (gm) 21 % RDI: 97% Kcal; 100% AA. Goal #1 Provide at least 75% of energy /protein needs through Enteral Feeding during LOS. Follow-Up By: 02/20/22 Additional Comments Continue monitoring TF tolerance, Mechanical Ventilation, Hypernatremia, and BM. <ABDELRAHMAN MCMAHAN - Last Filed: 02/25/22 11:35> History Interval history: I saw and evaluated the patient. I agree with the findings and the plan of care as documented in the Nurse Practitioner's~note, with the following corrections and additions. Hospitalist Physical - Constitutional Vitals: Temp Pulse Resp BP Pulse Ox 100.5 F H 115 H 27 H 101/70 100 02/22/22 16:00 02/22/22 18:00 02/22/22 18:00 02/22/22 18:00 02/22/22 18:00 HEART Score - HEART Score Troponin: Troponin T < 0.010 ng/mL (0.00-0.029) 02/03/22 16:15 Results - Labs CBC & Chem 7: 02/22/22 04:00 02/22/22 04:00 Labs: Laboratory Last Values WBC 15.0 K/mm3 (4.5-11.0) H 02/22/22 04:00 RBC 3.62 M/mm3 (3.65-5.03) L 02/22/22 04:00 Hgb 7.7 gm/dl (10.1-14.3) L 02/22/22 04:00 Hct 24.8 % (30.3-42.9) L 02/22/22 04:00 MCV 68 fl (79-97) L 02/22/22 04:00 MCH 21 pg (28-32) L 02/22/22 04:00 MCHC 31 % (30-34) 02/22/22 04:00 RDW 29.9 % (13.2-15.2) H 02/22/22 04:00 Plt Count 442 K/mm3 (140-440) H 02/22/22 04:00 Lymph % (Auto) Medical Billing And Coding Instructor 02/02/22 04:00 Add Manual Diff Complete 02/03/22 04:00 Total Counted 50 02/03/22 04:00 Seg Neutrophils % Medical Billing And Coding Instructor 02/02/22 04:00 Seg Neuts % (Manual) 76.0 % (40.0-70.0) H 02/03/22 04:00 Band Neutrophils % 18.0 % 02/03/22 04:00 Lymphocytes % (Manual) 2.0 % (13.4-35.0) L 02/03/22 04:00 Reactive Lymphs % (Man) 0 % 02/03/22 04:00 Monocytes % (Manual) 4.0 % (0.0-7.3) 02/03/22 04:00 Eosinophils % (Manual) 0 % (0.0-4.3) 02/03/22 04:00 Basophils % (Manual) 0 % (0.0-1.8) 02/03/22 04:00 Metamyelocytes % 0 % 02/03/22 04:00 Myelocytes % 0 % 02/03/22 04:00 Promyelocytes % 0 % 02/03/22 04:00 Blast Cells % 0 % 02/03/22 04:00 Nucleated RBC % 4.0 % (0.0-0.9) H 02/03/22 04:00 Seg Neutrophils # Man 2.8 K/mm3 (1.8-7.7) 02/03/22 04:00 Band Neutrophils # 0.7 K/mm3 02/03/22 04:00 Lymphocytes # (Manual) 0.1 K/mm3 (1.2-5.4) L 02/03/22 04:00 Abs React Lymphs (Man) 0.0 K/mm3 02/03/22 04:00 Monocytes # (Manual) 0.1 K/mm3 (0.0-0.8) 02/03/22 04:00 Eosinophils # (Manual) 0.0 K/mm3 (0.0-0.4) 02/03/22 04:00 Basophils # (Manual) 0.0 K/mm3 (0.0-0.1) 02/03/22 04:00 Metamyelocytes # 0.0 K/mm3 02/03/22 04:00 Myelocytes # 0.0 K/mm3 02/03/22 04:00 Promyelocytes # 0.0 K/mm3 02/03/22 04:00 Blast Cells # 0.0 K/mm3 02/03/22 04:00 WBC Morphology Not Reportable 02/03/22 04:00 Hypersegmented Neuts Not Reportable 02/03/22 04:00 Hyposegmented Neuts Not Reportable 02/03/22 04:00 Hypogranular Neuts Not Reportable 02/03/22 04:00 Smudge Cells Not Reportable 02/03/22 04:00 Toxic Granulation Not Reportable 02/03/22 04:00 Toxic Vacuolation Not Reportable 02/03/22 04:00 Dohle Bodies Few 02/03/22 04:00 Pelger-Huet Anomaly Not Reportable 02/03/22 04:00 Sung Rods Not Reportable 02/03/22 04:00 Platelet Estimate Consistent w auto 02/03/22 04:00 Clumped Platelets Not Reportable 02/03/22 04:00 Plt Clumps, EDTA Not Reportable 02/03/22 04:00 Large Platelets Not Reportable 02/03/22 04:00 Giant Platelets Not Reportable 02/03/22 04:00 Platelet Satelliting Not Reportable 02/03/22 04:00 Plt Morphology Comment Not Reportable 02/03/22 04:00 RBC Morphology Not Reportable 02/03/22 04:00 Dimorphic RBCs Not Reportable 02/03/22 04:00 Polychromasia Not Reportable 02/03/22 04:00 Hypochromasia 3+ 02/03/22 04:00 Poikilocytosis 2+ 02/03/22 04:00 Anisocytosis 1+ 02/03/22 04:00 Microcytosis 2+ 02/03/22 04:00 Macrocytosis Not Reportable 02/03/22 04:00 Spherocytes Not Reportable 02/03/22 04:00 Pappenheimer Bodies Not Reportable 02/03/22 04:00 Sickle Cells Not Reportable 02/03/22 04:00 Target Cells 1+ 02/03/22 04:00 Tear Drop Cells Few 02/03/22 04:00 Ovalocytes Few 02/03/22 04:00 Helmet Cells Not Reportable 02/03/22 04:00 Starr-Jeannette Bodies Not Reportable 02/03/22 04:00 [place] Rings Not Reportable 02/03/22 04:00 Napoleon Cells 1+ 02/03/22 04:00 Bite Cells Not Reportable 02/03/22 04:00 Crenated Cell Not Reportable 02/03/22 04:00 Elliptocytes Few 02/03/22 04:00 Acanthocytes (Spur) Not Reportable 02/03/22 04:00 Rouleaux Not Reportable 02/03/22 04:00 Hemoglobin C Crystals Not Reportable 02/03/22 04:00 Schistocytes Rare 02/03/22 04:00 Malaria parasites Not Reportable 02/03/22 04:00 Percent Retic 0.65 % (0.78-2.58) L 02/08/22 03:55 Sven Bodies Not Reportable 02/03/22 04:00 Hem Pathologist Commnt No 02/03/22 04:00 PT 13.7 Sec. (12.2-14.9) 02/18/22 04:00 INR 0.95 (0.87-1.13) 02/18/22 04:00 APTT 29.5 Sec. (24.2-36.6) 02/16/22 04:36 Fibrinogen 795 mg/dl (211-480) H 02/05/22 08:48 ABG pH 7.463 pH Units (7.350-7.450) H 02/17/22 05:06 POC ABG pCO2 37.3 mmHg (32.0-48.0) 02/02/22 04:49 ABG pCO2 46.8 mm Hg 02/17/22 05:06 POC ABG pO2 79.9 mmHg (83-108) L 02/02/22 04:49 ABG pO2 113.6 mm Hg (80.0-90.0) H 02/17/22 05:06 POC ABG HCO3 30.3 02/02/22 04:49 ABG HCO3 32.8 mmol/L (20.0-26.0) H 02/17/22 05:06 ABG O2 Saturation 98.2 % (95.0-99.0) 02/17/22 05:06 ABG O2 Content 11.0 (0.0-44) 02/17/22 05:06 POC ABG Base Excess 7.1 02/02/22 04:49 ABG Base Excess 8.1 mmol/L (-2.0-3.0) H 02/17/22 05:06 ABG Hemoglobin 8.0 gm/dl (12.0-16.0) L 02/17/22 05:06 ABG Oxyhemoglobin 96.0 (94-98) 02/02/22 04:49 ABG Carboxyhemoglobin 1.7 % (0.0-5.0) 02/17/22 05:06 ABG Methemoglobin 0.5 % (0.0-1.5) 02/17/22 05:06 ABG Sodium Not Reportable 02/02/22 04:49 ABG Potassium Not Reportable 02/02/22 04:49 ABG Chloride Not Reportable 02/02/22 04:49 ABG Glucose Not Reportable 02/02/22 04:49 Oxyhemoglobin 96.0 % (95.0-99.0) 02/17/22 05:06 Carboxyhemoglobin 0.2 (0.5-1.5) L 02/02/22 04:49 FiO2 30 % 02/17/22 05:06 FiO2 % 60.0 02/02/22 04:49 Sodium 143 mmol/L (137-145) 02/22/22 04:00 Potassium 3.7 mmol/L (3.6-5.0) 02/22/22 04:00 Chloride 108.7 mmol/L (98-107) H 02/22/22 04:00 Carbon Dioxide 26 mmol/L (22-30) 02/22/22 04:00 Anion Gap 12 mmol/L 02/22/22 04:00 BUN 10 mg/dL (7-17) 02/22/22 04:00 Creatinine 0.4 mg/dL (0.6-1.2) L 02/22/22 04:00 Estimated GFR > 60 ml/min 02/22/22 04:00 BUN/Creatinine Ratio 25 % 02/22/22 04:00 Glucose 49 mg/dL (65-100) L 02/22/22 04:00 POC Glucose 173 mg/dL (70-105) H 02/22/22 18:19 Hemoglobin A1c 11.1 % (4-6) H 02/01/22 12:54 Lactic Acid 2.50 mmol/L (0.7-2.0) H* 02/06/22 11:50 Calcium 8.7 mg/dL (8.4-10.2) 02/22/22 04:00 Phosphorus 2.90 mg/dL (2.5-4.5) 02/22/22 11:35 Magnesium 1.70 mg/dL (1.7-2.3) 02/22/22 11:35 Total Bilirubin 0.50 mg/dL (0.1-1.2) 02/17/22 05:00 Direct Bilirubin < 0.2 mg/dL (0-0.2) 02/13/22 04:00 Indirect Bilirubin 0.1 mg/dL 02/13/22 04:00 AST 38 units/L (5-40) 02/17/22 05:00 ALT 28 units/L (7-56) 02/17/22 05:00 Alkaline Phosphatase 102 units/L (35-129) 02/17/22 05:00 Lactate Dehydrogenase 879 units/L (91-180) H 02/05/22 04:40 Troponin T < 0.010 ng/mL (0.00-0.029) 02/03/22 16:15 Total Protein 5.4 g/dL (6.3-8.2) L 02/17/22 05:00 Albumin 2.5 g/dL (3.9-5) L 02/17/22 05:00 Albumin/Globulin Ratio 0.9 % 02/17/22 05:00 Arterial Blood Glucose Not Reportable 02/02/22 04:49 Urine Color Straw (Yellow) 02/19/22 18:15 Urine Turbidity Clear (Clear) 02/19/22 18:15 Urine pH 8.0 (5.0-7.0) H 02/19/22 18:15 Ur Specific [place] 1.000 (1.003-1.030) L 02/19/22 18:15 Urine Protein 30 mg/dl mg/dL (Negative) 02/19/22 18:15 Urine Glucose (UA) Negative mg/dL (Negative) 02/19/22 18:15 Urine Ketones 5 mg/dL (Negative) 02/19/22 18:15 Urine Blood 1+ (Negative) 02/19/22 18:15 Urine Nitrite Negative (Negative) 02/19/22 18:15 Ur Reducing Substances Not Reportable 02/19/22 18:15 Urine Bilirubin Negative (Negative) 02/19/22 18:15 Urine Ictotest Not Reportable 02/19/22 18:15 Urine Urobilinogen Small mg/dL (<2.0) 02/19/22 18:15 Ur Leukocyte Esterase Negative (Negative) 02/19/22 18:15 Urine WBC (Auto) 2.0 /HPF (0.0-6.0) 02/19/22 18:15 Urine RBC (Auto) 3.0 /HPF (0.0-6.0) 02/19/22 18:15 U Epithel Cells (Auto) 1.0 /HPF (0-13.0) 02/04/22 09:15 Urine Bacteria (Auto) 1+ /HPF (Negative) 02/19/22 18:15 Urine Mucus Few /HPF 02/04/22 09:15 Urine Yeast (Budding) 2+ /HPF 02/04/22 09:15 Vancomycin Trough 28.6 ug/mL (5.0-20.0) H 02/05/22 Unknown Coronavirus (PCR) Negative (Negative) 02/02/22 10:44 SARS-CoV-2 (PCR) Negative (Negative) 02/15/22 09:39 HIV 1&2 Antibody Rapid Non react (Non React) 02/04/22 14:37 HIV P24 Antigen Non react (Non React) 02/04/22 14:37 Blood Type A POSITIVE 02/13/22 09:41 Antibody Screen Negative 02/13/22 09:41 Crossmatch See Detail 02/13/22 09:41 Microbiology: Microbiology 02/19/22 14:51 Peripheral/Venous Blood Culture - Final NO GROWTH AFTER 5 DAYS 02/19/22 14:51 Peripheral/Venous Blood Culture - Final NO GROWTH AFTER 5 DAYS 02/19/22 18:43 Tracheal Aspirate Sputum Culture - Final Gastelum/IV: Voiding Method External Female Catheter Nutrition/Malnutrition Assess - Dietary Evaluation Nutrition/Malnutrition Findings: Nutrition Notes Start: 02/01/22 17:50 Freq: Status: Discharge Protocol: Document 02/19/22 14:47 JACQUELINE (Rec: 02/19/22 15:20 JACQUELINE [email or web address]) Nutrition Notes Need for Assessment generated from: Low BMI Initial or Follow up Reassessment Current Diagnosis Diabetes,Sepsis,Respiratory Failure Other Pertinent Diagnosis s/p DKA, s/p PEA Arrest, Pneumonia, Pyuria, Pancytopenia, UTI, ... Current Diet TF-Glucerna 1.2 Venu @ 55 ml/hr (since D 02/18). Labs/Tests 02/19: Crea 0.3, Glu 143. Pertinent Medications 02/19: D10w @ 42 ml/hr, others nutritionally unremarkable. Height 5 ft 4 in Weight 47 kg [place] Body Weight (kg) 54.54 BMI 17.7 Weight change and time frame 1.8 Kg body weight loss in 1 week reported. Weight Status Underweight Subjective/Other Information RD consult for routine F/U on TF tolerance/continuation, and Low BMI assessment. TF continues as prescribed, but currently on hold, due to vomiting episode after PEG placement, according to RN notes. Pt remains on Mechanical Ventilation, O2 saturation @ 100%, according to Physical Assessment History notes. PEG-tube placement on 02/18, well tolerated, according to Operative Report notes. Pt's Low BMI seems to correspond to a natural body composition, and not related to a sudden loss of body weight nor chronic malnutrition, since no signs of concern were mentioned in the Physical Assessment History or the Progress notes. Percent of energy/protein needs met: Prescribed TF-Glucerna 1.2 Venu @ 55 ml/hr provides for energy/protein needs (1584 Kcal/79 g) during LOS, 97% Kcal; 100% AA. Burn Absent Trauma Absent GI Symptoms Vomiting Difficulty In Swallowing Food Allergy No Skin Integrity/Comment Unspecified area of concern. Current % PO Other Minimum of two criteria No Fluid Accumulation N/A Reduced Director Case Strength N/A (non-severe) Protein-Calorie Malnutrition N\A #1 Nutrition Diagnosis Inadequate oral intake Diagnosis Progress(for reassessment Continues documentation) Is patient on ventilator? Yes Is Patient Ambulatory and/or Out of Bed No REE-([facility]-confined to bed) 1241.100 Kcal/Kg value to use for calculation 34 Approximate Energy Requirements Using 1598 kcal/Kg Calculation Used for Recommendations Kcal/kg Additional Notes Protein: 1.2-2 g/Kg ABW; 56-93 g/day. Fluids: 1 ml/Kcal, or as per MD. Nutrition Intervention Nutrition Support: Continue TF-Glucerna 1.2 Venu @ 55 ml/hr. Flush: 100 ml water Q 4 hr, or as per MD. Kcal 1,584 Protein (gm) 79 Carbohydrates (gm) 151 Fat (gm) 79 Fluid (mL) 1,063 Fiber (gm) 21 % RDI: 97% Kcal; 100% AA. Goal #1 Provide at least 75% of energy /protein needs through Enteral Feeding during LOS. Follow-Up By: 03/05/22 Additional Comments Continue monitoring TF tolerance, Mechanical Ventilation, and BM.
--- NOTE | 2022-02-15 14:28 | Procedure Note ---
Date of procedure: 02/14/22 Pre-op diagnosis: Labored Breathing Post-op diagnosis: same Procedure: Rapid Sequency Intubation. Patient positioned supine, with towel under shoulder blades. Using the glade scope after induction with Fent, Etomidate and Versed, 7.0 ET was passed through the vocal cords without difficulty, seen under direct visualization. Cuff inflated and tube secured. CXR showed ET tube at the level of the kathy so retracted about 2-3 cm. Tolerated well with no issues. Called daughter prior to procedure but she did not answer. Surgeon: RUPESH SHERMAN Estimated blood loss: none Pathology: none Condition: critical Disposition: ICU
--- NOTE | 2022-02-15 14:29 | Progress Note ---
Assessment and Plan 02/15/22: Trach and peg soon. Continue sedations and supportive care. 02/14/22: Today will plan to extubate. if fails will need trach. Reviewed chart and saw vascular recs. Will wean steroids again either tomorrow or Friday. 02/13/22: Drop steroids to 50q12 today. Currently on PSV 14/6. Sedatioin off. Tentatively plan for possible extubation tomorrow morning. 02/12/22: Will wean steroids more tomorrow. Drop PEEP to 6 today and attempt PSV this afternoon. If tolerates will leave on PSV until end of day shift and then rest on rate overnight. Hopeful to leave off sedation and control with PRN pushes. Repeat PSV tomorrow consider ABG, pending on how she looks clinically. Hopeful for conventional ventilation but family is on board if trach and peg are required. 02/11/22: Will drop steroids to 50q8. Will drop PEEP to 8. Once PEEP at 6 , then consult surgery fro trach and peg unless off sedation mental state is be tter and she can tolerate PSV to assess if able for conventional extubation. Prognosis still remains guarded but improved now that pulmonary status has improved. 02/08/22: Please do not attempt to wean PEEP unless it is compromising clinical state (breath stacking, auto peep, hypotension, etc). Patient is in full blown ARDS needs increased levels of PEEP to help with oxygenation. Now that BP is better, if no improvement would even consider increasing PEEP if needed. Discussed with RT today. Spoke with nursing and SEPARATOR TENDER about feet, will obtain arterial dopplers. Hopeful there is no occlusion as given her pancytopenia, not sure that she would be a candidate for anticoagulation. Reviewed [facility] as she was in [place] at least 3x prior to transfer here, twice during the month of January for DKA. She does have a diagnsosis of schizoaffective disorder. Could not find any meds for this. Will try some BID seroquel and see if this helps with mental state. Increases in sedation have not improved respiratory pattern. Patient did not get albumin and lasix last night but did get this am. Repeat CXR in the morning as well as ABG. If patient's alkalemia worsens would stop. Also given improvement in BP would start to wean stress dose steroids. She does have a diagnosis of HTN along with her diabetes and Dementia and Schizoaffective disorder. Also from reviewing the charts at [facility], patient is/was very noncompliant with diabetic regimen so some of her mental state could be vascular disease related to uncontrolled diabetes too. Overall prognosis is guarded. 02/07/22: Family meeting today, please see my event note. albumin and lasix again this morning and then again tonight. Continue steroids. May need insulin drip. Guarded prognosis. 02/06/22: Overall prognosis continues to worsen. She did respond to albumin and lasix with good urine output. Will give again tonight. Bronch results are negative and repeat cultures are negative. CXR continues to be consistent with ARDS. This could be AIP. Now on steroids so will see how she responds. Unfortunately I was not able to meet with the family today but plan to meet with them at 11 tomorrow. appreciate heme help. Given her response to steroids BP salazar, if this is truly acute interstitial pneumonitis, may consider pulse dose steroids. Will discuss with family risks of this as well. 02/05/22: Follow up bronch results. Appreciate ID assistance and changing of abx therapy. COntinue high PEEP and small TV. Ok with permissive hypercapnea as long as pH is >7.2. Follow up heme assessment. Has Kleib in tracheal aspirate. Follow up blood cultures. Will meet with family tomorrow. Overall prognosis is guarded to poor. 02/04/22: Repeat cultures this am while she is febrile. Bronched this am and wash taken from right middle lobe. Worsening CXR is likely related to the volume given yesterday. Will consult heme today as her numbers continue to worsen. Gram Negative Rods found in Tracheal aspirate from 02/01. Follow up speciation of this as well as bronch results. Will send for fungal cultures as well. Needs art line. Stop bob and change to vasopressin. Overall prognosis is very very guarded to poor. 02/03/22: Needs repeat culture with next fever spike. concern now that she is still spiking temps on broad spec abx. may need to broaden even more with antifungal but will discuss tomorrow with pharmacy tomorrow. pH is better but worsening hypoxemia. CXR shows bilateral infiltrates. Will consider bronch tomorrow for washing to be sent for culture. Consider Heme consult tomorrow. Echo was stable. Guarded to poor prognosis. Sugar is better today. 02/02/22: Wean Vasopressors as tolerated for maps >65. Check echo. Stop insulin therapy. Q1hour fSbs and cover with sliding scale. Repeat ABG later today to follow pH. May need some diamox later. Patient now neutropenic and thrombocytopenic, repeated CBC and still the same. may need to consider heme consult. For now continue broad spec abx therapy. prognosis is guarded to poor. 2 amps of NaBicarb pushed Started on Insulin drip Central line placement secondary to lack of access Aggressive volume resuscitation q1 hour fsbs and q6 hour BMPs for the next 36-48 hours Supplemental O2 Not a candidate for bipap currently given mental state so if her respiratory status deteriorates would need intubation. Guarded prognosis. Spoke with daughter briefly at bedside. She did not get off her cell phone so not able to have a full conversation with her about her mother. CCT 31 minutes. Subjective Date of service: 02/15/22 Principal diagnosis: DKA, s/p cardiopulmonary arrest Interval history: Patient required re-intubation on yesterday. Elective and controlled. Tolerated well. Surgery has already seen and obtained consent from daughter. Objective Vital Signs - 12hr 02/15/22 02/15/22 02/15/22 02:31 02:45 03:00 Temperature Pulse Rate 117 H 115 H 115 H Pulse Rate [ From Monitor] Respiratory 17 19 17 Rate Blood Pressure 106/71 106/71 103/66 O2 Sat by Pulse 100 100 100 Oximetry 02/15/22 02/15/22 02/15/22 03:15 03:31 03:45 Temperature Pulse Rate 121 H 115 H 115 H Pulse Rate [ From Monitor] Respiratory 19 22 17 Rate Blood Pressure 103/66 103/66 103/66 O2 Sat by Pulse 100 99 100 Oximetry 02/15/22 02/15/22 02/15/22 04:00 04:15 04:16 Temperature Pulse Rate 115 H 114 H 116 H Pulse Rate [ 113 H From Monitor] Respiratory 19 18 Rate Blood Pressure 125/75 125/75 125/75 O2 Sat by Pulse 100 100 100 Oximetry 02/15/22 02/15/22 02/15/22 04:31 04:45 05:00 Temperature Pulse Rate 114 H 110 H 113 H Pulse Rate [ From Monitor] Respiratory 14 17 18 Rate Blood Pressure 125/75 125/75 114/67 O2 Sat by Pulse 100 100 100 Oximetry 02/15/22 02/15/22 02/15/22 05:15 05:31 05:45 Temperature Pulse Rate 114 H 115 H 115 H Pulse Rate [ From Monitor] Respiratory 18 16 16 Rate Blood Pressure 114/67 114/67 114/67 O2 Sat by Pulse 100 100 Oximetry 02/15/22 02/15/22 02/15/22 06:00 06:15 06:31 Temperature Pulse Rate 109 H 114 H 113 H Pulse Rate [ From Monitor] Respiratory 15 16 16 Rate Blood Pressure 128/82 128/82 128/82 O2 Sat by Pulse 100 100 100 Oximetry 02/15/22 02/15/22 02/15/22 06:45 07:00 07:15 Temperature Pulse Rate 115 H 116 H 114 H Pulse Rate [ From Monitor] Respiratory 23 19 15 Rate Blood Pressure 128/82 124/81 124/81 O2 Sat by Pulse 100 100 100 Oximetry 02/15/22 02/15/22 02/15/22 07:31 07:32 07:45 Temperature Pulse Rate 116 H 116 H 115 H Pulse Rate [ From Monitor] Respiratory 16 16 Rate Blood Pressure 124/81 121/81 124/81 O2 Sat by Pulse 100 100 100 Oximetry 02/15/22 02/15/22 02/15/22 08:00 08:15 08:31 Temperature 99.3 F Pulse Rate 119 H 117 H 114 H Pulse Rate [ 119 H From Monitor] Respiratory 15 20 16 Rate Blood Pressure 130/78 130/78 124/81 O2 Sat by Pulse 100 100 100 Oximetry 02/15/22 02/15/22 02/15/22 08:45 09:00 09:15 Temperature Pulse Rate 115 H 115 H 118 H Pulse Rate [ From Monitor] Respiratory 17 18 17 Rate Blood Pressure 124/81 124/74 124/74 O2 Sat by Pulse 100 100 100 Oximetry 02/15/22 02/15/22 02/15/22 09:31 09:45 10:00 Temperature Pulse Rate 116 H 115 H 114 H Pulse Rate [ From Monitor] Respiratory 17 15 13 Rate Blood Pressure 124/74 124/74 125/79 O2 Sat by Pulse 100 100 100 Oximetry 02/15/22 02/15/22 02/15/22 10:15 10:31 10:45 Temperature Pulse Rate 113 H 111 H 116 H Pulse Rate [ From Monitor] Respiratory 16 16 15 Rate Blood Pressure 125/79 125/79 125/79 O2 Sat by Pulse 100 100 100 Oximetry 02/15/22 02/15/22 02/15/22 11:00 11:15 11:31 Temperature Pulse Rate 114 H 112 H 110 H Pulse Rate [ From Monitor] Respiratory 17 16 15 Rate Blood Pressure 117/72 117/72 117/72 O2 Sat by Pulse 99 99 99 Oximetry 02/15/22 02/15/22 02/15/22 11:45 12:00 12:15 Temperature 98.9 F Pulse Rate 111 H 110 H 108 H Pulse Rate [ 119 H From Monitor] Respiratory 16 17 17 Rate Blood Pressure 117/72 121/70 121/70 O2 Sat by Pulse 99 100 99 Oximetry 02/15/22 02/15/22 02/15/22 12:31 12:45 13:00 Temperature Pulse Rate 108 H 108 H 106 H Pulse Rate [ From Monitor] Respiratory 17 16 15 Rate Blood Pressure 121/70 121/70 121/75 O2 Sat by Pulse 99 99 100 Oximetry 02/15/22 02/15/22 02/15/22 13:15 13:31 13:45 Temperature Pulse Rate 105 H 116 H 108 H Pulse Rate [ From Monitor] Respiratory 16 19 17 Rate Blood Pressure 121/75 121/75 121/75 O2 Sat by Pulse 99 100 100 Oximetry 02/15/22 14:01 Temperature Pulse Rate 116 H Pulse Rate [ From Monitor] Respiratory 22 Rate Blood Pressure 141/106 O2 Sat by Pulse 99 Oximetry Constitutional: other (on vent, orally intubated) Eyes: non-icteric ENT: oropharynx moist Ascultation: Bilateral: diminished breath sounds Cardiovascular: regular rate and rhythm Gastrointestinal: normoactive bowel sounds Integumentary: normal Neurologic: other (on vent) Psychiatric: other (on vent) CBC and BMP: 02/15/22 03:31 02/14/22 09:03 ABG, PT/INR, D-dimer: ABG ABG pH 7.518 pH Units (7.350-7.450) H 02/14/22 18:10 POC ABG pCO2 37.3 mmHg (32.0-48.0) 02/02/22 04:49 ABG pCO2 48.9 mm Hg 02/14/22 18:10 POC ABG pO2 79.9 mmHg (83-108) L 02/02/22 04:49 ABG pO2 97.1 mm Hg (80.0-90.0) H 02/14/22 18:10 POC ABG HCO3 30.3 02/02/22 04:49 ABG O2 Saturation 97.9 % (95.0-99.0) 02/14/22 18:10 PT/INR, D-dimer PT 14.8 Sec. (12.2-14.9) 02/05/22 08:48 INR 1.02 (0.87-1.13) 02/05/22 08:48 Abnormal lab findings: Abnormal Labs 01/31/22 01/31/22 01/31/22 20:33 20:33 20:33 WBC 12.5 H RBC 6.16 H Hgb Hct MCV 61 L MCH 18 L RDW 19.6 H Plt Count Seg Neuts % (Manual) 98.0 H Lymphocytes % (Manual) 0 L Nucleated RBC % 2.0 H Seg Neutrophils # Man 12.3 H Lymphocytes # (Manual) 0.0 L Percent Retic Fibrinogen ABG pH POC ABG pO2 ABG pO2 ABG HCO3 ABG O2 Saturation ABG Base Excess ABG Hemoglobin Oxyhemoglobin Carboxyhemoglobin Sodium Potassium 5.6 H Chloride 110.1 H Carbon Dioxide 9 L* BUN Creatinine Glucose 254 H POC Glucose Hemoglobin A1c Lactic Acid 2.50 H* Calcium 10.8 H Phosphorus Magnesium Direct Bilirubin AST ALT Alkaline Phosphatase Lactate Dehydrogenase Total Protein Albumin Ur Specific [place] Urine Blood Urine WBC (Auto) Vancomycin Trough Crossmatch 01/31/22 02/01/22 02/01/22 22:49 07:34 08:22 WBC RBC Hgb Hct MCV MCH RDW Plt Count Seg Neuts % (Manual) Lymphocytes % (Manual) Nucleated RBC % Seg Neutrophils # Man Lymphocytes # (Manual) Percent Retic Fibrinogen ABG pH POC ABG pO2 ABG pO2 ABG HCO3 ABG O2 Saturation ABG Base Excess ABG Hemoglobin Oxyhemoglobin Carboxyhemoglobin Sodium Potassium 5.8 H Chloride 115.8 H Carbon Dioxide 3 L* BUN Creatinine Glucose 400 H POC Glucose 368 H Hemoglobin A1c Lactic Acid Calcium Phosphorus Magnesium Direct Bilirubin AST ALT Alkaline Phosphatase Lactate Dehydrogenase Total Protein Albumin Ur Specific [place] 1.035 H Urine Blood Small A Urine WBC (Auto) 142.0 H Vancomycin Trough Crossmatch 02/01/22 02/01/22 02/01/22 09:42 12:01 12:54 WBC RBC Hgb Hct MCV MCH RDW Plt Count Seg Neuts % (Manual) Lymphocytes % (Manual) Nucleated RBC % Seg Neutrophils # Man Lymphocytes # (Manual) Percent Retic Fibrinogen ABG pH 7.044 L* POC ABG pO2 ABG pO2 121.0 H ABG HCO3 3.7 L ABG O2 Saturation ABG Base Excess -24.8 L ABG Hemoglobin 9.3 L Oxyhemoglobin Carboxyhemoglobin Sodium Potassium Chloride Carbon Dioxide BUN Creatinine Glucose POC Glucose 382 H Hemoglobin A1c Lactic Acid Calcium Phosphorus 1.40 L Magnesium 1.30 L Direct Bilirubin AST ALT Alkaline Phosphatase Lactate Dehydrogenase Total Protein Albumin Ur Specific [place] Urine Blood Urine WBC (Auto) Vancomycin Trough Crossmatch 02/01/22 02/01/22 02/01/22 12:54 12:54 13:27 WBC RBC Hgb Hct MCV MCH RDW Plt Count Seg Neuts % (Manual) Lymphocytes % (Manual) Nucleated RBC % Seg Neutrophils # Man Lymphocytes # (Manual) Percent Retic Fibrinogen ABG pH POC ABG pO2 ABG pO2 ABG HCO3 ABG O2 Saturation ABG Base Excess ABG Hemoglobin Oxyhemoglobin Carboxyhemoglobin Sodium 148 H D Potassium 3.0 L D Chloride 117.3 H Carbon Dioxide 9 L* BUN Creatinine Glucose 439 H POC Glucose 342 H Hemoglobin A1c 11.1 H Lactic Acid Calcium 7.7 L Phosphorus Magnesium Direct Bilirubin AST ALT Alkaline Phosphatase Lactate Dehydrogenase Total Protein Albumin Ur Specific [place] Urine Blood Urine WBC (Auto) Vancomycin Trough Crossmatch 02/01/22 02/01/22 02/01/22 14:48 15:48 16:54 WBC RBC Hgb Hct MCV MCH RDW Plt Count Seg Neuts % (Manual) Lymphocytes % (Manual) Nucleated RBC % Seg Neutrophils # Man Lymphocytes # (Manual) Percent Retic Fibrinogen ABG pH POC ABG pO2 ABG pO2 ABG HCO3 ABG O2 Saturation ABG Base Excess ABG Hemoglobin Oxyhemoglobin Carboxyhemoglobin Sodium Potassium Chloride Carbon Dioxide BUN Creatinine Glucose POC Glucose 394 H 412 H 352 H Hemoglobin A1c Lactic Acid Calcium Phosphorus Magnesium Direct Bilirubin AST ALT Alkaline Phosphatase Lactate Dehydrogenase Total Protein Albumin Ur Specific [place] Urine Blood Urine WBC (Auto) Vancomycin Trough Crossmatch 02/01/22 02/01/22 02/01/22 18:23 18:53 19:26 WBC RBC Hgb Hct MCV MCH RDW Plt Count Seg Neuts % (Manual) Lymphocytes % (Manual) Nucleated RBC % Seg Neutrophils # Man Lymphocytes # (Manual) Percent Retic Fibrinogen ABG pH 7.331 L POC ABG pO2 ABG pO2 121.4 H ABG HCO3 ABG O2 Saturation ABG Base Excess -4.9 L ABG Hemoglobin 8.4 L Oxyhemoglobin Carboxyhemoglobin Sodium Potassium Chloride Carbon Dioxide BUN Creatinine Glucose POC Glucose 350 H 260 H Hemoglobin A1c Lactic Acid Calcium Phosphorus Magnesium Direct Bilirubin AST ALT Alkaline Phosphatase Lactate Dehydrogenase Total Protein Albumin Ur Specific [place] Urine Blood Urine WBC (Auto) Vancomycin Trough Crossmatch 02/01/22 02/01/22 02/01/22 20:20 21:38 22:41 WBC RBC Hgb Hct MCV MCH RDW Plt Count Seg Neuts % (Manual) Lymphocytes % (Manual) Nucleated RBC % Seg Neutrophils # Man Lymphocytes # (Manual) Percent Retic Fibrinogen ABG pH POC ABG pO2 ABG pO2 ABG HCO3 ABG O2 Saturation ABG Base Excess ABG Hemoglobin Oxyhemoglobin Carboxyhemoglobin Sodium Potassium Chloride Carbon Dioxide BUN Creatinine Glucose POC Glucose 266 H 195 H 150 H Hemoglobin A1c Lactic Acid Calcium Phosphorus Magnesium Direct Bilirubin AST ALT Alkaline Phosphatase Lactate Dehydrogenase Total Protein Albumin Ur Specific [place] Urine Blood Urine WBC (Auto) Vancomycin Trough Crossmatch 02/01/22 02/02/22 02/02/22 23:39 00:25 00:25 WBC RBC Hgb Hct MCV MCH RDW Plt Count Seg Neuts % (Manual) Lymphocytes % (Manual) Nucleated RBC % Seg Neutrophils # Man Lymphocytes # (Manual) Percent Retic Fibrinogen ABG pH POC ABG pO2 ABG pO2 ABG HCO3 ABG O2 Saturation ABG Base Excess ABG Hemoglobin Oxyhemoglobin Carboxyhemoglobin Sodium 156 H D Potassium 3.0 L Chloride 114.2 H Carbon Dioxide BUN Creatinine 0.5 L Glucose 63 L POC Glucose 125 H Hemoglobin A1c Lactic Acid 7.10 H* Calcium 8.1 L Phosphorus Magnesium Direct Bilirubin AST ALT Alkaline Phosphatase Lactate Dehydrogenase Total Protein Albumin Ur Specific [place] Urine Blood Urine WBC (Auto) Vancomycin Trough Crossmatch 02/02/22 02/02/22 02/02/22 04:00 04:00 04:35 WBC 1.4 L* RBC Hgb 8.5 L Hct 26.8 L D MCV 57 L MCH 18 L RDW 19.0 H Plt Count 129 L Seg Neuts % (Manual) 33.0 L Lymphocytes % (Manual) 57.0 H Nucleated RBC % Seg Neutrophils # Man 0.5 L Lymphocytes # (Manual) 0.8 L Percent Retic Fibrinogen ABG pH POC ABG pO2 ABG pO2 ABG HCO3 ABG O2 Saturation ABG Base Excess ABG Hemoglobin Oxyhemoglobin Carboxyhemoglobin Sodium 155 H Potassium Chloride 113.1 H Carbon Dioxide BUN Creatinine Glucose 159 H POC Glucose Hemoglobin A1c Lactic Acid 3.10 H* Calcium 7.6 L Phosphorus Magnesium Direct Bilirubin AST ALT Alkaline Phosphatase Lactate Dehydrogenase Total Protein Albumin Ur Specific [place] Urine Blood Urine WBC (Auto) Vancomycin Trough Crossmatch 02/02/22 02/02/22 02/02/22 04:37 04:49 05:43 WBC RBC Hgb Hct MCV MCH RDW Plt Count Seg Neuts % (Manual) Lymphocytes % (Manual) Nucleated RBC % Seg Neutrophils # Man Lymphocytes # (Manual) Percent Retic Fibrinogen ABG pH 7.528 H POC ABG pO2 79.9 L ABG pO2 ABG HCO3 ABG O2 Saturation ABG Base Excess ABG Hemoglobin 8.8 L Oxyhemoglobin Carboxyhemoglobin 0.2 L Sodium Potassium Chloride Carbon Dioxide BUN Creatinine Glucose POC Glucose 116 H 125 H Hemoglobin A1c Lactic Acid Calcium Phosphorus Magnesium Direct Bilirubin AST ALT Alkaline Phosphatase Lactate Dehydrogenase Total Protein Albumin Ur Specific [place] Urine Blood Urine WBC (Auto) Vancomycin Trough Crossmatch 02/02/22 02/02/22 02/02/22 06:52 09:02 09:05 WBC RBC Hgb Hct MCV MCH RDW Plt Count Seg Neuts % (Manual) Lymphocytes % (Manual) Nucleated RBC % Seg Neutrophils # Man Lymphocytes # (Manual) Percent Retic Fibrinogen ABG pH POC ABG pO2 ABG pO2 ABG HCO3 ABG O2 Saturation ABG Base Excess ABG Hemoglobin Oxyhemoglobin Carboxyhemoglobin Sodium 154 H Potassium 3.3 L Chloride 113.3 H Carbon Dioxide BUN Creatinine Glucose 35 L* POC Glucose 110 H 35 L Hemoglobin A1c Lactic Acid Calcium 7.4 L Phosphorus 1.70 L D Magnesium 2.50 H Direct Bilirubin AST ALT Alkaline Phosphatase Lactate Dehydrogenase Total Protein Albumin Ur Specific [place] Urine Blood Urine WBC (Auto) Vancomycin Trough Crossmatch 02/02/22 02/02/22 02/02/22 09:05 09:30 09:41 WBC 2.6 L RBC Hgb 8.0 L Hct 25.0 L MCV 57 L MCH 18 L RDW 18.8 H Plt Count 97 L Seg Neuts % (Manual) Lymphocytes % (Manual) 12.0 L Nucleated RBC % 10.0 H Seg Neutrophils # Man 1.7 L Lymphocytes # (Manual) 0.3 L Percent Retic Fibrinogen ABG pH POC ABG pO2 ABG pO2 ABG HCO3 ABG O2 Saturation ABG Base Excess ABG Hemoglobin Oxyhemoglobin Carboxyhemoglobin Sodium Potassium Chloride Carbon Dioxide BUN Creatinine Glucose POC Glucose 119 H Hemoglobin A1c Lactic Acid 7.10 H* Calcium Phosphorus Magnesium Direct Bilirubin AST ALT Alkaline Phosphatase Lactate Dehydrogenase Total Protein Albumin Ur Specific [place] Urine Blood Urine WBC (Auto) Vancomycin Trough Crossmatch 02/02/22 02/02/22 02/02/22 10:17 12:32 15:39 WBC RBC Hgb Hct MCV MCH RDW Plt Count Seg Neuts % (Manual) Lymphocytes % (Manual) Nucleated RBC % Seg Neutrophils # Man Lymphocytes # (Manual) Percent Retic Fibrinogen ABG pH POC ABG pO2 ABG pO2 ABG HCO3 ABG O2 Saturation ABG Base Excess ABG Hemoglobin Oxyhemoglobin Carboxyhemoglobin Sodium Potassium Chloride Carbon Dioxide BUN Creatinine Glucose POC Glucose 120 H 166 H 263 H Hemoglobin A1c Lactic Acid Calcium Phosphorus Magnesium Direct Bilirubin AST ALT Alkaline Phosphatase Lactate Dehydrogenase Total Protein Albumin Ur Specific [place] Urine Blood Urine WBC (Auto) Vancomycin Trough Crossmatch 02/02/22 02/02/22 02/02/22 17:07 17:50 Unknown WBC RBC Hgb Hct MCV MCH RDW Plt Count Seg Neuts % (Manual) Lymphocytes % (Manual) Nucleated RBC % Seg Neutrophils # Man Lymphocytes # (Manual) Percent Retic Fibrinogen ABG pH 7.457 H POC ABG pO2 ABG pO2 71.0 L ABG HCO3 ABG O2 Saturation 94.5 L ABG Base Excess ABG Hemoglobin 9.2 L Oxyhemoglobin 93.0 L Carboxyhemoglobin Sodium 147 H Potassium 5.5 H D Chloride 110.8 H Carbon Dioxide BUN Creatinine Glucose 271 H POC Glucose 231 H Hemoglobin A1c Lactic Acid Calcium 7.3 L Phosphorus Magnesium Direct Bilirubin AST ALT Alkaline Phosphatase Lactate Dehydrogenase Total Protein Albumin Ur Specific [place] Urine Blood Urine WBC (Auto) Vancomycin Trough Crossmatch 02/03/22 02/03/22 02/03/22 00:08 04:00 04:00 WBC 3.7 L RBC Hgb 8.0 L Hct 25.5 L MCV 58 L MCH 18 L RDW 18.2 H Plt Count 79 L Seg Neuts % (Manual) 76.0 H Lymphocytes % (Manual) 2.0 L Nucleated RBC % 4.0 H Seg Neutrophils # Man Lymphocytes # (Manual) 0.1 L Percent Retic Fibrinogen ABG pH POC ABG pO2 ABG pO2 ABG HCO3 ABG O2 Saturation ABG Base Excess ABG Hemoglobin Oxyhemoglobin Carboxyhemoglobin Sodium 147 H Potassium Chloride 112.9 H Carbon Dioxide BUN Creatinine Glucose 281 H POC Glucose 231 H Hemoglobin A1c Lactic Acid Calcium 7.8 L Phosphorus Magnesium Direct Bilirubin 0.3 H AST 172 H ALT 89 H Alkaline Phosphatase Lactate Dehydrogenase Total Protein 4.7 L D Albumin 2.0 L Ur Specific [place] Urine Blood Urine WBC (Auto) Vancomycin Trough Crossmatch 02/03/22 02/03/22 02/03/22 04:20 05:26 11:38 WBC RBC Hgb Hct MCV MCH RDW Plt Count Seg Neuts % (Manual) Lymphocytes % (Manual) Nucleated RBC % Seg Neutrophils # Man Lymphocytes # (Manual) Percent Retic Fibrinogen ABG pH POC ABG pO2 ABG pO2 75.5 L ABG HCO3 ABG O2 Saturation ABG Base Excess -2.8 L ABG Hemoglobin 8.1 L Oxyhemoglobin 94.6 L Carboxyhemoglobin Sodium Potassium Chloride Carbon Dioxide BUN Creatinine Glucose POC Glucose 247 H 196 H Hemoglobin A1c Lactic Acid Calcium Phosphorus Magnesium Direct Bilirubin AST ALT Alkaline Phosphatase Lactate Dehydrogenase Total Protein Albumin Ur Specific [place] Urine Blood Urine WBC (Auto) Vancomycin Trough Crossmatch 02/03/22 02/04/22 02/04/22 16:27 02:44 03:18 WBC 1.2 L* RBC Hgb 8.2 L Hct 26.6 L MCV 59 L MCH 18 L RDW 19.6 H Plt Count 50 L Seg Neuts % (Manual) Lymphocytes % (Manual) Nucleated RBC % Seg Neutrophils # Man Lymphocytes # (Manual) Percent Retic Fibrinogen ABG pH POC ABG pO2 ABG pO2 ABG HCO3 ABG O2 Saturation ABG Base Excess ABG Hemoglobin Oxyhemoglobin Carboxyhemoglobin Sodium 148 H Potassium Chloride 116.3 H Carbon Dioxide BUN Creatinine Glucose 139 H POC Glucose 119 H Hemoglobin A1c Lactic Acid Calcium Phosphorus Magnesium Direct Bilirubin 0.3 H AST 92 H ALT 76 H Alkaline Phosphatase Lactate Dehydrogenase Total Protein 4.7 L Albumin 1.6 L Ur Specific [place] Urine Blood Urine WBC (Auto) Vancomycin Trough Crossmatch 02/04/22 02/04/22 02/04/22 05:15 05:26 09:15 WBC RBC Hgb Hct MCV MCH RDW Plt Count Seg Neuts % (Manual) Lymphocytes % (Manual) Nucleated RBC % Seg Neutrophils # Man Lymphocytes # (Manual) Percent Retic Fibrinogen ABG pH 7.311 L POC ABG pO2 ABG pO2 50.1 L ABG HCO3 ABG O2 Saturation 83.6 L ABG Base Excess ABG Hemoglobin 8.6 L Oxyhemoglobin 81.9 L Carboxyhemoglobin Sodium Potassium Chloride Carbon Dioxide BUN Creatinine Glucose POC Glucose 115 H Hemoglobin A1c Lactic Acid Calcium Phosphorus Magnesium Direct Bilirubin AST ALT Alkaline Phosphatase Lactate Dehydrogenase Total Protein Albumin Ur Specific [place] Urine Blood Large A Urine WBC (Auto) 12.0 H Vancomycin Trough Crossmatch 02/04/22 02/04/22 02/04/22 11:17 14:37 17:04 WBC RBC Hgb Hct MCV MCH RDW Plt Count Seg Neuts % (Manual) Lymphocytes % (Manual) Nucleated RBC % Seg Neutrophils # Man Lymphocytes # (Manual) Percent Retic Fibrinogen ABG pH POC ABG pO2 ABG pO2 ABG HCO3 ABG O2 Saturation ABG Base Excess ABG Hemoglobin Oxyhemoglobin Carboxyhemoglobin Sodium Potassium Chloride Carbon Dioxide BUN Creatinine Glucose POC Glucose 166 H 109 H Hemoglobin A1c Lactic Acid Calcium Phosphorus Magnesium Direct Bilirubin AST 87 H ALT 75 H Alkaline Phosphatase 137 H Lactate Dehydrogenase Total Protein 4.6 L Albumin 1.7 L Ur Specific [place] Urine Blood Urine WBC (Auto) Vancomycin Trough Crossmatch 02/04/22 02/04/22 02/04/22 20:15 20:22 20:22 WBC RBC Hgb 7.1 L Hct 22.6 L MCV MCH RDW Plt Count Seg Neuts % (Manual) Lymphocytes % (Manual) Nucleated RBC % Seg Neutrophils # Man Lymphocytes # (Manual) Percent Retic Fibrinogen ABG pH 7.292 L POC ABG pO2 ABG pO2 40.3 L ABG HCO3 ABG O2 Saturation 72.1 L ABG Base Excess -2.2 L ABG Hemoglobin 7.0 L Oxyhemoglobin 70.5 L Carboxyhemoglobin Sodium Potassium Chloride Carbon Dioxide BUN Creatinine Glucose POC Glucose Hemoglobin A1c Lactic Acid 3.00 H* Calcium Phosphorus Magnesium Direct Bilirubin AST ALT Alkaline Phosphatase Lactate Dehydrogenase Total Protein Albumin Ur Specific [place] Urine Blood Urine WBC (Auto) Vancomycin Trough Crossmatch 02/04/22 02/04/22 02/05/22 20:22 23:03 04:40 WBC 3.1 L RBC Hgb 9.6 L Hct 30.1 L D MCV 64 L MCH 20 L RDW 26.9 H Plt Count 50 L Seg Neuts % (Manual) Lymphocytes % (Manual) Nucleated RBC % Seg Neutrophils # Man Lymphocytes # (Manual) Percent Retic Fibrinogen ABG pH POC ABG pO2 ABG pO2 ABG HCO3 ABG O2 Saturation ABG Base Excess ABG Hemoglobin Oxyhemoglobin Carboxyhemoglobin Sodium Potassium Chloride Carbon Dioxide BUN Creatinine Glucose POC Glucose 171 H Hemoglobin A1c Lactic Acid Calcium Phosphorus Magnesium Direct Bilirubin AST ALT Alkaline Phosphatase Lactate Dehydrogenase Total Protein Albumin Ur Specific [place] Urine Blood Urine WBC (Auto) Vancomycin Trough Crossmatch See Detail 02/05/22 02/05/22 02/05/22 04:40 04:40 04:43 WBC RBC Hgb Hct MCV MCH RDW Plt Count Seg Neuts % (Manual) Lymphocytes % (Manual) Nucleated RBC % Seg Neutrophils # Man Lymphocytes # (Manual) Percent Retic Fibrinogen ABG pH POC ABG pO2 ABG pO2 ABG HCO3 ABG O2 Saturation ABG Base Excess ABG Hemoglobin Oxyhemoglobin Carboxyhemoglobin Sodium 148 H Potassium Chloride 113.2 H Carbon Dioxide BUN 21 H Creatinine Glucose 155 H POC Glucose 156 H Hemoglobin A1c Lactic Acid Calcium Phosphorus Magnesium Direct Bilirubin AST 84 H ALT 67 H Alkaline Phosphatase 152 H Lactate Dehydrogenase 879 H Total Protein 5.0 L Albumin 1.8 L Ur Specific [place] Urine Blood Urine WBC (Auto) Vancomycin Trough Crossmatch 02/05/22 02/05/22 02/05/22 08:10 08:48 08:48 WBC RBC Hgb Hct MCV MCH RDW Plt Count Seg Neuts % (Manual) Lymphocytes % (Manual) Nucleated RBC % Seg Neutrophils # Man Lymphocytes # (Manual) Percent Retic Fibrinogen 795 H ABG pH POC ABG pO2 ABG pO2 57.1 L ABG HCO3 27.8 H ABG O2 Saturation 90.8 L ABG Base Excess ABG Hemoglobin 8.5 L Oxyhemoglobin 88.9 L Carboxyhemoglobin Sodium Potassium Chloride Carbon Dioxide BUN Creatinine Glucose POC Glucose Hemoglobin A1c Lactic Acid 2.90 H* Calcium Phosphorus Magnesium Direct Bilirubin AST ALT Alkaline Phosphatase Lactate Dehydrogenase Total Protein Albumin Ur Specific [place] Urine Blood Urine WBC (Auto) Vancomycin Trough Crossmatch 02/05/22 02/05/22 02/05/22 11:46 17:45 Unknown WBC RBC Hgb Hct MCV MCH RDW Plt Count Seg Neuts % (Manual) Lymphocytes % (Manual) Nucleated RBC % Seg Neutrophils # Man Lymphocytes # (Manual) Percent Retic Fibrinogen ABG pH POC ABG pO2 ABG pO2 ABG HCO3 ABG O2 Saturation ABG Base Excess ABG Hemoglobin Oxyhemoglobin Carboxyhemoglobin Sodium Potassium Chloride Carbon Dioxide BUN Creatinine Glucose POC Glucose 61 L 133 H Hemoglobin A1c Lactic Acid Calcium Phosphorus Magnesium Direct Bilirubin AST ALT Alkaline Phosphatase Lactate Dehydrogenase Total Protein Albumin Ur Specific [place] Urine Blood Urine WBC (Auto) Vancomycin Trough 28.6 H Crossmatch 02/05/22 02/06/22 02/06/22 23:59 04:33 04:33 WBC RBC Hgb 8.4 L Hct 26.1 L MCV 64 L MCH 21 L RDW 26.2 H Plt Count 38 L Seg Neuts % (Manual) Lymphocytes % (Manual) Nucleated RBC % Seg Neutrophils # Man Lymphocytes # (Manual) Percent Retic Fibrinogen ABG pH POC ABG pO2 ABG pO2 ABG HCO3 ABG O2 Saturation ABG Base Excess ABG Hemoglobin Oxyhemoglobin Carboxyhemoglobin Sodium 146 H Potassium 3.4 L Chloride Carbon Dioxide 31 H BUN 21 H Creatinine Glucose 230 H POC Glucose 275 H Hemoglobin A1c Lactic Acid Calcium Phosphorus Magnesium Direct Bilirubin AST 70 H ALT Alkaline Phosphatase 197 H Lactate Dehydrogenase Total Protein 5.3 L Albumin 2.4 L Ur Specific [place] Urine Blood Urine WBC (Auto) Vancomycin Trough Crossmatch 02/06/22 02/06/22 02/06/22 04:33 04:50 06:19 WBC RBC Hgb Hct MCV MCH RDW Plt Count Seg Neuts % (Manual) Lymphocytes % (Manual) Nucleated RBC % Seg Neutrophils # Man Lymphocytes # (Manual) Percent Retic Fibrinogen ABG pH 7.330 L POC ABG pO2 ABG pO2 57.9 L ABG HCO3 31.3 H ABG O2 Saturation 89.6 L ABG Base Excess 4.5 H ABG Hemoglobin 8.1 L Oxyhemoglobin 87.7 L Carboxyhemoglobin Sodium Potassium Chloride Carbon Dioxide BUN Creatinine Glucose POC Glucose 219 H Hemoglobin A1c Lactic Acid 3.10 H* Calcium Phosphorus Magnesium Direct Bilirubin AST ALT Alkaline Phosphatase Lactate Dehydrogenase Total Protein Albumin Ur Specific [place] Urine Blood Urine WBC (Auto) Vancomycin Trough Crossmatch 02/06/22 02/06/22 02/06/22 11:24 11:50 12:26 WBC RBC Hgb Hct MCV MCH RDW Plt Count Seg Neuts % (Manual) Lymphocytes % (Manual) Nucleated RBC % Seg Neutrophils # Man Lymphocytes # (Manual) Percent Retic Fibrinogen ABG pH 7.298 L POC ABG pO2 ABG pO2 43.3 L ABG HCO3 36.7 H ABG O2 Saturation 74.9 L ABG Base Excess 8.8 H ABG Hemoglobin 8.2 L Oxyhemoglobin 73.3 L Carboxyhemoglobin Sodium Potassium Chloride Carbon Dioxide BUN Creatinine Glucose POC Glucose 118 H Hemoglobin A1c Lactic Acid 2.50 H* Calcium Phosphorus Magnesium Direct Bilirubin AST ALT Alkaline Phosphatase Lactate Dehydrogenase Total Protein Albumin Ur Specific [place] Urine Blood Urine WBC (Auto) Vancomycin Trough Crossmatch 02/06/22 02/06/22 02/07/22 17:41 21:41 00:17 WBC RBC Hgb Hct MCV MCH RDW Plt Count Seg Neuts % (Manual) Lymphocytes % (Manual) Nucleated RBC % Seg Neutrophils # Man Lymphocytes # (Manual) Percent Retic Fibrinogen ABG pH POC ABG pO2 ABG pO2 ABG HCO3 ABG O2 Saturation ABG Base Excess ABG Hemoglobin Oxyhemoglobin Carboxyhemoglobin Sodium Potassium Chloride Carbon Dioxide BUN Creatinine Glucose POC Glucose 208 H 282 H 342 H Hemoglobin A1c Lactic Acid Calcium Phosphorus Magnesium Direct Bilirubin AST ALT Alkaline Phosphatase Lactate Dehydrogenase Total Protein Albumin Ur Specific [place] Urine Blood Urine WBC (Auto) Vancomycin Trough Crossmatch 02/07/22 02/07/22 02/07/22 00:19 04:12 04:12 WBC 13.1 H RBC Hgb 8.5 L Hct 26.4 L MCV 62 L MCH 20 L RDW 24.2 H Plt Count 57 L Seg Neuts % (Manual) Lymphocytes % (Manual) Nucleated RBC % Seg Neutrophils # Man Lymphocytes # (Manual) Percent Retic Fibrinogen ABG pH POC ABG pO2 ABG pO2 ABG HCO3 ABG O2 Saturation ABG Base Excess ABG Hemoglobin Oxyhemoglobin Carboxyhemoglobin Sodium 149 H Potassium 3.1 L Chloride Carbon Dioxide 38 H D BUN 23 H Creatinine Glucose 298 H POC Glucose 209 H Hemoglobin A1c Lactic Acid Calcium Phosphorus 2.10 L Magnesium Direct Bilirubin AST 49 H ALT Alkaline Phosphatase 248 H Lactate Dehydrogenase Total Protein 5.4 L Albumin 2.7 L Ur Specific [place] Urine Blood Urine WBC (Auto) Vancomycin Trough Crossmatch 02/07/22 02/07/22 02/07/22 04:40 07:09 07:13 WBC RBC Hgb Hct MCV MCH RDW Plt Count Seg Neuts % (Manual) Lymphocytes % (Manual) Nucleated RBC % Seg Neutrophils # Man Lymphocytes # (Manual) Percent Retic Fibrinogen ABG pH 7.474 H POC ABG pO2 ABG pO2 62.1 L ABG HCO3 39.1 H ABG O2 Saturation 94.7 L ABG Base Excess 13.9 H ABG Hemoglobin 8.6 L Oxyhemoglobin 93.0 L Carboxyhemoglobin Sodium Potassium Chloride Carbon Dioxide BUN Creatinine Glucose POC Glucose 399 H 418 H Hemoglobin A1c Lactic Acid Calcium Phosphorus Magnesium Direct Bilirubin AST ALT Alkaline Phosphatase Lactate Dehydrogenase Total Protein Albumin Ur Specific [place] Urine Blood Urine WBC (Auto) Vancomycin Trough Crossmatch 02/07/22 02/07/22 02/07/22 12:20 17:29 23:37 WBC RBC Hgb Hct MCV MCH RDW Plt Count Seg Neuts % (Manual) Lymphocytes % (Manual) Nucleated RBC % Seg Neutrophils # Man Lymphocytes # (Manual) Percent Retic Fibrinogen ABG pH POC ABG pO2 ABG pO2 ABG HCO3 ABG O2 Saturation ABG Base Excess ABG Hemoglobin Oxyhemoglobin Carboxyhemoglobin Sodium Potassium Chloride Carbon Dioxide BUN Creatinine Glucose POC Glucose 229 H 159 H 236 H Hemoglobin A1c Lactic Acid Calcium Phosphorus Magnesium Direct Bilirubin AST ALT Alkaline Phosphatase Lactate Dehydrogenase Total Protein Albumin Ur Specific [place] Urine Blood Urine WBC (Auto) Vancomycin Trough Crossmatch 02/08/22 02/08/22 02/08/22 03:55 03:55 05:20 WBC 14.7 H RBC Hgb 7.7 L Hct 25.0 L MCV 64 L MCH 20 L RDW 25.1 H Plt Count 79 L Seg Neuts % (Manual) Lymphocytes % (Manual) Nucleated RBC % Seg Neutrophils # Man Lymphocytes # (Manual) Percent Retic 0.65 L Fibrinogen ABG pH POC ABG pO2 ABG pO2 ABG HCO3 ABG O2 Saturation ABG Base Excess ABG Hemoglobin Oxyhemoglobin Carboxyhemoglobin Sodium Potassium 3.0 L Chloride 93.9 L Carbon Dioxide 44 H* BUN 30 H Creatinine Glucose 229 H POC Glucose 235 H Hemoglobin A1c Lactic Acid Calcium 8.3 L Phosphorus 2.30 L Magnesium Direct Bilirubin AST 77 H ALT Alkaline Phosphatase 246 H Lactate Dehydrogenase Total Protein 5.2 L Albumin 2.7 L Ur Specific [place] Urine Blood Urine WBC (Auto) Vancomycin Trough Crossmatch 02/08/22 02/08/22 02/08/22 11:47 16:36 21:41 WBC RBC Hgb Hct MCV MCH RDW Plt Count Seg Neuts % (Manual) Lymphocytes % (Manual) Nucleated RBC % Seg Neutrophils # Man Lymphocytes # (Manual) Percent Retic Fibrinogen ABG pH POC ABG pO2 ABG pO2 ABG HCO3 ABG O2 Saturation ABG Base Excess ABG Hemoglobin Oxyhemoglobin Carboxyhemoglobin Sodium Potassium Chloride Carbon Dioxide BUN Creatinine Glucose POC Glucose 193 H 205 H 292 H Hemoglobin A1c Lactic Acid Calcium Phosphorus Magnesium Direct Bilirubin AST ALT Alkaline Phosphatase Lactate Dehydrogenase Total Protein Albumin Ur Specific [place] Urine Blood Urine WBC (Auto) Vancomycin Trough Crossmatch 02/08/22 02/08/22 02/09/22 Unknown 23:59 04:00 WBC 16.4 H RBC Hgb 8.2 L Hct 26.3 L MCV 63 L MCH 20 L RDW 23.9 H Plt Count 128 L Seg Neuts % (Manual) Lymphocytes % (Manual) Nucleated RBC % Seg Neutrophils # Man Lymphocytes # (Manual) Percent Retic Fibrinogen ABG pH 7.488 H POC ABG pO2 ABG pO2 63.1 L ABG HCO3 45.5 H ABG O2 Saturation 94.1 L ABG Base Excess 19.8 H ABG Hemoglobin 8.7 L Oxyhemoglobin 92.4 L Carboxyhemoglobin Sodium Potassium Chloride Carbon Dioxide BUN Creatinine Glucose POC Glucose 342 H Hemoglobin A1c Lactic Acid Calcium Phosphorus Magnesium Direct Bilirubin AST ALT Alkaline Phosphatase Lactate Dehydrogenase Total Protein Albumin Ur Specific [place] Urine Blood Urine WBC (Auto) Vancomycin Trough Crossmatch 02/09/22 02/09/22 02/09/22 04:00 05:30 06:07 WBC RBC Hgb Hct MCV MCH RDW Plt Count Seg Neuts % (Manual) Lymphocytes % (Manual) Nucleated RBC % Seg Neutrophils # Man Lymphocytes # (Manual) Percent Retic Fibrinogen ABG pH 7.539 H POC ABG pO2 ABG pO2 210.4 H ABG HCO3 42.4 H ABG O2 Saturation 99.3 H ABG Base Excess 18.0 H ABG Hemoglobin 7.8 L Oxyhemoglobin Carboxyhemoglobin Sodium 149 H Potassium 3.1 L Chloride 97.6 L Carbon Dioxide 42 H* BUN 27 H Creatinine Glucose 257 H POC Glucose 260 H Hemoglobin A1c Lactic Acid Calcium 8.2 L Phosphorus 1.90 L Magnesium Direct Bilirubin AST 81 H ALT Alkaline Phosphatase 229 H Lactate Dehydrogenase Total Protein 5.4 L Albumin 2.6 L Ur Specific [place] Urine Blood Urine WBC (Auto) Vancomycin Trough Crossmatch 02/09/22 02/09/22 02/09/22 11:16 17:33 20:25 WBC RBC Hgb Hct MCV MCH RDW Plt Count Seg Neuts % (Manual) Lymphocytes % (Manual) Nucleated RBC % Seg Neutrophils # Man Lymphocytes # (Manual) Percent Retic Fibrinogen ABG pH 7.504 H POC ABG pO2 ABG pO2 79.7 L ABG HCO3 44.2 H ABG O2 Saturation ABG Base Excess 19.2 H ABG Hemoglobin 7.0 L Oxyhemoglobin Carboxyhemoglobin Sodium Potassium Chloride Carbon Dioxide BUN Creatinine Glucose POC Glucose 184 H 123 H Hemoglobin A1c Lactic Acid Calcium Phosphorus Magnesium Direct Bilirubin AST ALT Alkaline Phosphatase Lactate Dehydrogenase Total Protein Albumin Ur Specific [place] Urine Blood Urine WBC (Auto) Vancomycin Trough Crossmatch 02/09/22 02/09/22 02/10/22 21:16 23:13 03:40 WBC 17.2 H RBC Hgb 7.9 L Hct 25.3 L MCV 63 L MCH 20 L RDW 20.7 H Plt Count Seg Neuts % (Manual) Lymphocytes % (Manual) Nucleated RBC % Seg Neutrophils # Man Lymphocytes # (Manual) Percent Retic Fibrinogen ABG pH POC ABG pO2 ABG pO2 ABG HCO3 ABG O2 Saturation ABG Base Excess ABG Hemoglobin Oxyhemoglobin Carboxyhemoglobin Sodium Potassium Chloride Carbon Dioxide BUN Creatinine Glucose POC Glucose 186 H 276 H Hemoglobin A1c Lactic Acid Calcium Phosphorus Magnesium Direct Bilirubin AST ALT Alkaline Phosphatase Lactate Dehydrogenase Total Protein Albumin Ur Specific [place] Urine Blood Urine WBC (Auto) Vancomycin Trough Crossmatch 02/10/22 02/10/22 02/10/22 03:40 04:17 04:17 WBC RBC Hgb Hct MCV MCH RDW Plt Count Seg Neuts % (Manual) Lymphocytes % (Manual) Nucleated RBC % Seg Neutrophils # Man Lymphocytes # (Manual) Percent Retic Fibrinogen ABG pH 7.468 H POC ABG pO2 ABG pO2 124.2 H ABG HCO3 42.1 H ABG O2 Saturation ABG Base Excess 16.6 H ABG Hemoglobin 7.6 L Oxyhemoglobin Carboxyhemoglobin Sodium 149 H Potassium 3.2 L Chloride Carbon Dioxide 38 H BUN 26 H Creatinine 0.5 L Glucose 188 H POC Glucose 189 H Hemoglobin A1c Lactic Acid Calcium 8.3 L Phosphorus 2.10 L Magnesium Direct Bilirubin AST 120 H ALT 80 H Alkaline Phosphatase 207 H Lactate Dehydrogenase Total Protein 5.3 L Albumin 2.4 L Ur Specific [place] Urine Blood Urine WBC (Auto) Vancomycin Trough Crossmatch 02/10/22 02/10/22 02/10/22 11:46 16:27 21:15 WBC RBC Hgb Hct MCV MCH RDW Plt Count Seg Neuts % (Manual) Lymphocytes % (Manual) Nucleated RBC % Seg Neutrophils # Man Lymphocytes # (Manual) Percent Retic Fibrinogen ABG pH POC ABG pO2 ABG pO2 ABG HCO3 ABG O2 Saturation ABG Base Excess ABG Hemoglobin Oxyhemoglobin Carboxyhemoglobin Sodium Potassium Chloride Carbon Dioxide BUN Creatinine Glucose POC Glucose 189 H 198 H 261 H Hemoglobin A1c Lactic Acid Calcium Phosphorus Magnesium Direct Bilirubin AST ALT Alkaline Phosphatase Lactate Dehydrogenase Total Protein Albumin Ur Specific [place] Urine Blood Urine WBC (Auto) Vancomycin Trough Crossmatch 02/10/22 02/11/22 02/11/22 23:20 04:00 04:00 WBC 20.8 H RBC Hgb 7.7 L Hct 24.5 L MCV 64 L MCH 20 L RDW 23.5 H Plt Count Seg Neuts % (Manual) Lymphocytes % (Manual) Nucleated RBC % Seg Neutrophils # Man Lymphocytes # (Manual) Percent Retic Fibrinogen ABG pH POC ABG pO2 ABG pO2 ABG HCO3 ABG O2 Saturation ABG Base Excess ABG Hemoglobin Oxyhemoglobin Carboxyhemoglobin Sodium 148 H Potassium 3.3 L Chloride Carbon Dioxide 39 H BUN 27 H Creatinine 0.5 L Glucose 218 H POC Glucose 196 H Hemoglobin A1c Lactic Acid Calcium 8.3 L Phosphorus Magnesium Direct Bilirubin AST ALT Alkaline Phosphatase Lactate Dehydrogenase Total Protein Albumin Ur Specific [place] Urine Blood Urine WBC (Auto) Vancomycin Trough Crossmatch 02/11/22 02/11/22 02/11/22 05:00 05:57 11:15 WBC RBC Hgb Hct MCV MCH RDW Plt Count Seg Neuts % (Manual) Lymphocytes % (Manual) Nucleated RBC % Seg Neutrophils # Man Lymphocytes # (Manual) Percent Retic Fibrinogen ABG pH 7.459 H POC ABG pO2 ABG pO2 99.8 H ABG HCO3 41.4 H ABG O2 Saturation ABG Base Excess 15.9 H ABG Hemoglobin 7.5 L Oxyhemoglobin Carboxyhemoglobin Sodium Potassium Chloride Carbon Dioxide BUN Creatinine Glucose POC Glucose 173 H 204 H Hemoglobin A1c Lactic Acid Calcium Phosphorus Magnesium Direct Bilirubin AST ALT Alkaline Phosphatase Lactate Dehydrogenase Total Protein Albumin Ur Specific [place] Urine Blood Urine WBC (Auto) Vancomycin Trough Crossmatch 02/11/22 02/11/22 02/12/22 17:15 21:21 00:29 WBC RBC Hgb Hct MCV MCH RDW Plt Count Seg Neuts % (Manual) Lymphocytes % (Manual) Nucleated RBC % Seg Neutrophils # Man Lymphocytes # (Manual) Percent Retic Fibrinogen ABG pH POC ABG pO2 ABG pO2 ABG HCO3 ABG O2 Saturation ABG Base Excess ABG Hemoglobin Oxyhemoglobin Carboxyhemoglobin Sodium Potassium Chloride Carbon Dioxide BUN Creatinine Glucose POC Glucose 157 H 183 H 197 H Hemoglobin A1c Lactic Acid Calcium Phosphorus Magnesium Direct Bilirubin AST ALT Alkaline Phosphatase Lactate Dehydrogenase Total Protein Albumin Ur Specific [place] Urine Blood Urine WBC (Auto) Vancomycin Trough Crossmatch 02/12/22 02/12/22 02/12/22 04:17 04:17 05:00 WBC 23.9 H RBC Hgb 7.5 L Hct 24.2 L MCV 64 L MCH 20 L RDW 25.5 H Plt Count Seg Neuts % (Manual) Lymphocytes % (Manual) Nucleated RBC % Seg Neutrophils # Man Lymphocytes # (Manual) Percent Retic Fibrinogen ABG pH 7.467 H POC ABG pO2 ABG pO2 97.9 H ABG HCO3 40.7 H ABG O2 Saturation ABG Base Excess 15.3 H ABG Hemoglobin 7.5 L Oxyhemoglobin Carboxyhemoglobin Sodium 146 H Potassium Chloride Carbon Dioxide 39 H BUN 25 H Creatinine 0.4 L Glucose 135 H POC Glucose Hemoglobin A1c Lactic Acid Calcium Phosphorus Magnesium Direct Bilirubin AST ALT Alkaline Phosphatase Lactate Dehydrogenase Total Protein Albumin Ur Specific [place] Urine Blood Urine WBC (Auto) Vancomycin Trough Crossmatch 02/12/22 02/12/22 02/12/22 05:53 12:31 17:54 WBC RBC Hgb Hct MCV MCH RDW Plt Count Seg Neuts % (Manual) Lymphocytes % (Manual) Nucleated RBC % Seg Neutrophils # Man Lymphocytes # (Manual) Percent Retic Fibrinogen ABG pH POC ABG pO2 ABG pO2 ABG HCO3 ABG O2 Saturation ABG Base Excess ABG Hemoglobin Oxyhemoglobin Carboxyhemoglobin Sodium Potassium Chloride Carbon Dioxide BUN Creatinine Glucose POC Glucose 114 H 124 H 159 H Hemoglobin A1c Lactic Acid Calcium Phosphorus Magnesium Direct Bilirubin AST ALT Alkaline Phosphatase Lactate Dehydrogenase Total Protein Albumin Ur Specific [place] Urine Blood Urine WBC (Auto) Vancomycin Trough Crossmatch 02/12/22 02/13/22 02/13/22 22:09 03:40 04:00 WBC 23.6 H RBC 3.42 L Hgb 6.7 L Hct 21.7 L MCV 64 L MCH 20 L RDW 27.3 H Plt Count Seg Neuts % (Manual) Lymphocytes % (Manual) Nucleated RBC % Seg Neutrophils # Man Lymphocytes # (Manual) Percent Retic Fibrinogen ABG pH 7.465 H POC ABG pO2 ABG pO2 104.3 H ABG HCO3 39.4 H ABG O2 Saturation ABG Base Excess 14.3 H ABG Hemoglobin 6.7 L Oxyhemoglobin Carboxyhemoglobin Sodium Potassium Chloride Carbon Dioxide BUN Creatinine Glucose POC Glucose 160 H Hemoglobin A1c Lactic Acid Calcium Phosphorus Magnesium Direct Bilirubin AST ALT Alkaline Phosphatase Lactate Dehydrogenase Total Protein Albumin Ur Specific [place] Urine Blood Urine WBC (Auto) Vancomycin Trough Crossmatch 02/13/22 02/13/22 02/13/22 04:00 06:05 09:41 WBC RBC Hgb Hct MCV MCH RDW Plt Count Seg Neuts % (Manual) Lymphocytes % (Manual) Nucleated RBC % Seg Neutrophils # Man Lymphocytes # (Manual) Percent Retic Fibrinogen ABG pH POC ABG pO2 ABG pO2 ABG HCO3 ABG O2 Saturation ABG Base Excess ABG Hemoglobin Oxyhemoglobin Carboxyhemoglobin Sodium 146 H Potassium Chloride Carbon Dioxide 38 H BUN 25 H Creatinine 0.4 L Glucose 235 H POC Glucose 283 H Hemoglobin A1c Lactic Acid Calcium 8.0 L Phosphorus Magnesium Direct Bilirubin AST ALT 58 H Alkaline Phosphatase 143 H Lactate Dehydrogenase Total Protein 4.7 L Albumin 2.2 L Ur Specific [place] Urine Blood Urine WBC (Auto) Vancomycin Trough Crossmatch See Detail 02/13/22 02/13/22 02/13/22 11:37 18:30 21:47 WBC RBC Hgb Hct MCV MCH RDW Plt Count Seg Neuts % (Manual) Lymphocytes % (Manual) Nucleated RBC % Seg Neutrophils # Man Lymphocytes # (Manual) Percent Retic Fibrinogen ABG pH POC ABG pO2 ABG pO2 ABG HCO3 ABG O2 Saturation ABG Base Excess ABG Hemoglobin Oxyhemoglobin Carboxyhemoglobin Sodium Potassium Chloride Carbon Dioxide BUN Creatinine Glucose POC Glucose 132 H 187 H 279 H Hemoglobin A1c Lactic Acid Calcium Phosphorus Magnesium Direct Bilirubin AST ALT Alkaline Phosphatase Lactate Dehydrogenase Total Protein Albumin Ur Specific [place] Urine Blood Urine WBC (Auto) Vancomycin Trough Crossmatch 02/14/22 02/14/22 02/14/22 01:07 04:35 04:40 WBC 24.5 H RBC Hgb 9.4 L Hct 28.8 L D MCV 69 L MCH 23 L RDW 30.3 H Plt Count Seg Neuts % (Manual) Lymphocytes % (Manual) Nucleated RBC % Seg Neutrophils # Man Lymphocytes # (Manual) Percent Retic Fibrinogen ABG pH 7.484 H POC ABG pO2 ABG pO2 101.5 H ABG HCO3 35.8 H ABG O2 Saturation ABG Base Excess 11.1 H ABG Hemoglobin 9.4 L Oxyhemoglobin Carboxyhemoglobin Sodium Potassium Chloride Carbon Dioxide BUN Creatinine Glucose POC Glucose 267 H Hemoglobin A1c Lactic Acid Calcium Phosphorus Magnesium Direct Bilirubin AST ALT Alkaline Phosphatase Lactate Dehydrogenase Total Protein Albumin Ur Specific [place] Urine Blood Urine WBC (Auto) Vancomycin Trough Crossmatch 02/14/22 02/14/22 02/14/22 06:16 09:03 11:20 WBC RBC Hgb Hct MCV MCH RDW Plt Count Seg Neuts % (Manual) Lymphocytes % (Manual) Nucleated RBC % Seg Neutrophils # Man Lymphocytes # (Manual) Percent Retic Fibrinogen ABG pH POC ABG pO2 ABG pO2 ABG HCO3 ABG O2 Saturation ABG Base Excess ABG Hemoglobin Oxyhemoglobin Carboxyhemoglobin Sodium Potassium Chloride Carbon Dioxide 39 H BUN 20 H Creatinine 0.4 L Glucose 144 H POC Glucose 183 H 42 L Hemoglobin A1c Lactic Acid Calcium 8.3 L Phosphorus Magnesium Direct Bilirubin AST ALT Alkaline Phosphatase Lactate Dehydrogenase Total Protein Albumin Ur Specific [place] Urine Blood Urine WBC (Auto) Vancomycin Trough Crossmatch 02/14/22 02/14/22 02/14/22 18:07 18:10 18:36 WBC RBC Hgb Hct MCV MCH RDW Plt Count Seg Neuts % (Manual) Lymphocytes % (Manual) Nucleated RBC % Seg Neutrophils # Man Lymphocytes # (Manual) Percent Retic Fibrinogen ABG pH 7.518 H POC ABG pO2 ABG pO2 97.1 H ABG HCO3 38.8 H ABG O2 Saturation ABG Base Excess 13.8 H ABG Hemoglobin Oxyhemoglobin Carboxyhemoglobin Sodium Potassium Chloride Carbon Dioxide BUN Creatinine Glucose POC Glucose 29 L 143 H Hemoglobin A1c Lactic Acid Calcium Phosphorus Magnesium Direct Bilirubin AST ALT Alkaline Phosphatase Lactate Dehydrogenase Total Protein Albumin Ur Specific [place] Urine Blood Urine WBC (Auto) Vancomycin Trough Crossmatch 02/14/22 02/15/22 02/15/22 23:44 03:31 05:23 WBC 20.1 H RBC Hgb 8.4 L Hct 26.6 L MCV 69 L MCH 22 L RDW 31.5 H Plt Count Seg Neuts % (Manual) Lymphocytes % (Manual) Nucleated RBC % Seg Neutrophils # Man Lymphocytes # (Manual) Percent Retic Fibrinogen ABG pH POC ABG pO2 ABG pO2 ABG HCO3 ABG O2 Saturation ABG Base Excess ABG Hemoglobin Oxyhemoglobin Carboxyhemoglobin Sodium Potassium Chloride Carbon Dioxide BUN Creatinine Glucose POC Glucose 229 H 232 H Hemoglobin A1c Lactic Acid Calcium Phosphorus Magnesium Direct Bilirubin AST ALT Alkaline Phosphatase Lactate Dehydrogenase Total Protein Albumin Ur Specific [place] Urine Blood Urine WBC (Auto) Vancomycin Trough Crossmatch 02/15/22 11:32 WBC RBC Hgb Hct MCV MCH RDW Plt Count Seg Neuts % (Manual) Lymphocytes % (Manual) Nucleated RBC % Seg Neutrophils # Man Lymphocytes # (Manual) Percent Retic Fibrinogen ABG pH POC ABG pO2 ABG pO2 ABG HCO3 ABG O2 Saturation ABG Base Excess ABG Hemoglobin Oxyhemoglobin Carboxyhemoglobin Sodium Potassium Chloride Carbon Dioxide BUN Creatinine Glucose POC Glucose 160 H Hemoglobin A1c Lactic Acid Calcium Phosphorus Magnesium Direct Bilirubin AST ALT Alkaline Phosphatase Lactate Dehydrogenase Total Protein Albumin Ur Specific [place] Urine Blood Urine WBC (Auto) Vancomycin Trough Crossmatch
--- NOTE | 2022-02-15 14:36 | Event Note ---
Date: 02/15/22 Called patient's sister, Daisy, as she requested to speak with me. Sister states that she was told by her Niece (patients daughter and legal next of kin) that her mother was dying. Daughter states at nurse told her that. I asked for nurses name and sister could not tell me. I believe the daughter spoke with our surgeon who explained the procedure of trach and peg placement and discussed all of the risk, which include and this is where this came from. I currently do not feel that the patients clinical condidtion is in imminent demise at this time. I believe that clinically she is stable and by doing the elective intubation on yesterday, we prevented further complications by needing to do it in an emergent situation. The sister, who states that she is in health care, still seemed to have a hard time understanding this and then asked why no one called her as she is the POA. This was the first time anyone had mentioned an ything about a POA and we had a family meeting with them earlier in the hospital stay. The sister started to become upset so I asked that she allow me to call her with CM so that we could have a better understanding. per the sister, she has POA and has documentation that she will be bringing to the hospital today for us to review and confirm. If so, all consents and discussions from that point on should be done through Daisy once this is confirmed.The sister states that she did not tell us about the POA as we did not ask her for it. I explained to her that if there is living next of kin (spouse, children, parent pending age etc) then this is who we contact and ask permission for any and every thing. Trach is still tentatively scheduled for Friday afternoon. Continue current clinical management.
[2022-02-15] MEDS: fentaNYL DRIP Premix 2,000 MCG/100 ML BAG IV SCH (17:41)
[2022-02-15] MEDS: INSULIN GLARGINE 100 UNITS/ML SUB-Q SCH (22:08)
[2022-02-16 05:18] LABS: Blood Urea Nitrogen 20 mg/dL (7-17); Calcium 7.7 mg/dL (8.4-10.2); Hemolysis Index 2
[2022-02-16 05:22] LABS: BUN/Creatinine Ratio 50
[2022-02-16 05:34] LABS: INR 1.02 (0.87-1.13)
[2022-02-16 05:35] LABS: Partial Thromboplastin Time 29.5 Sec. (24.2-36.6)
[2022-02-16 05:56] LABS: Hematocrit 26.6 % (30.3-42.9); Hemoglobin 8.1 gm/dl (10.1-14.3); Mean Corpuscular HGB Conc 31 % (30-34); Mean Corpuscular Volume 70 fl (79-97); Platelet Count 407 K/mm3 (140-440); Red Cell Distribution Width 30.8 % (13.2-15.2)
--- NOTE | 2022-02-16 06:44 | XRay Report ---
CHEST 1 VIEW 02/16/2022 5:35 AM INDICATION / CLINICAL INFORMATION: resp failure. COMPARISON: 02/15/2022 FINDINGS: SUPPORT DEVICES: Stable. HEART / MEDIASTINUM: No significant abnormality. LUNGS / PLEURA: Diffuse bilateral pulmonary opacities are noted. No pneumothorax. Signer Name: Rigoberto Eaton MD Signed: 02/16/2022 6:40 AM Workstation Name: [id number]
[2022-02-16] MEDS: SENNOSIDES/DOCUSATE SODIUM 8.6/50 MG TAB PO SCH ×2 (09:08→21:33)
[2022-02-16] MEDS: predniSONE 50 MG TAB FEEDTUBE SCH (09:48)
[2022-02-16] MEDS: QUEtiapine 25 MG TAB PO SCH ×2 (09:48→21:31)
[2022-02-16] MEDS: FAMOTIDINE 20 MG TAB FEEDTUBE SCH ×2 (09:48→21:31)
[2022-02-16] MEDS: INSULIN REGULAR, HUMAN 100 UNITS/1 ML SUB-Q SCH ×2 (11:42→17:04)
[2022-02-16] MEDS: NITROGLYCERIN 2% OINT 1 GM TP SCH ×2 (11:42→13:06)
[2022-02-16] MEDS ORDERED: FUROSEMIDE 40 MG/4 ML INJ IV ONE (11:44)
--- NOTE | 2022-02-16 11:49 | Progress Note ---
Assessment and Plan 02/16/22: Trach and peg on Friday. Continue sedation. Will check CMP tomorrow. Will give a one time dose of albumin with lasix chaser. oral steroid taper has been ordered. need to discontinue central line and replace with picc for more mcfp usage. 02/15/22: Trach and peg soon. Continue sedations and supportive care. 02/14/22: Today will plan to extubate. if fails will need trach. Reviewed chart and saw vascular recs. Will wean steroids again either tomorrow or Friday. 02/13/22: Drop steroids to 50q12 today. Currently on PSV 14/. Sedatioin off. Tentatively plan for possible extubation tomorrow morning. 02/12/22: Will wean steroids more tomorrow. Drop PEEP to 6 today and attempt PSV this afternoon. If tolerates will leave on PSV until end of day shift and then rest on rate overnight. Hopeful to leave off sedation and control with PRN pushes. Repeat PSV tomorrow consider ABG, pending on how she looks clinically. Hopeful for conventional ventilation but family is on board if trach and peg are required. 02/11/22: Will drop steroids to 50q8. Will drop PEEP to 8. Once PEEP at 6 , then consult surgery fro trach and peg unless off sedation mental state is better and she can tolerate PSV to assess if able for conventional extubation. Prognosis still remains guarded but improved now that pulmonary status has improved. 02/08/22: Please do not attempt to wean PEEP unless it is compromising clinical state (breath stacking, auto peep, hypotension, etc). Patient is in full blown ARDS needs increased levels of PEEP to help with oxygenation. Now that BP is better, if no improvement would even consider increasing PEEP if needed. Discussed with RT today. Spoke with nursing and [facility]IC[facility] SPECIALIST about feet, will obtain arterial dopplers. Hopeful there is no occlusion as given her pancytopenia, not sure that she would be a candidate for anticoagulation. Reviewed [facility] as she was in [place] at least 3x prior to transfer here, twice during the month of January for DKA. She does have a diagnsosis of schizoaffective disorder. Could not find any meds for this. Will try some BID seroquel and see if this helps with mental state. Increases in sedation have not improved respiratory pattern. Patient did not get albumin and lasix last night but did get this am. Repeat CXR in the morning as well as ABG. If patient's alkalemia worsens would stop. Also given improvement in BP would start to wean stress dose steroids. She does have a diagnosis of HTN along with her diabetes and Dementia and Schizoaffective disorder. Also from reviewing the charts at [facility], patient is/was very noncompliant with diabetic regimen so some of her mental state could be vascular disease related to uncontrolled diabetes too. Overall prognosis is guarded. 02/07/22: Family meeting today, please see my event note. albumin and lasix again this morning and then again tonight. Continue steroids. May need insulin drip. Guarded prognosis. 02/06/22: Overall prognosis continues to worsen. She did respond to albumin and lasix with good urine output. Will give again tonight. Bronch results are negative and repeat cultures are negative. CXR continues to be consistent with ARDS. This could be AIP. Now on steroids so will see how she responds. Unfortunately I was not able to meet with the family today but plan to meet with them at 11 tomorrow. appreciate heme help. Given her response to steroids BP salazar, if this is truly acute interstitial pneumonitis, may consider pulse dose steroids. Will discuss with family risks of this as well. 02/05/22: Follow up bronch results. Appreciate ID assistance and changing of abx therapy. COntinue high PEEP and small TV. Ok with permissive hypercapnea as long as pH is >7.2. Follow up heme assessment. Has Kleib in tracheal aspirate. Follow up blood cultures. Will meet with family tomorrow. Overall prognosis is guarded to poor. 02/04/22: Repeat cultures this am while she is febrile. Bronched this am and wash taken from right middle lobe. Worsening CXR is likely related to the volume given yesterday. Will consult heme today as her numbers continue to worsen. Gram Negative Rods found in Tracheal aspirate from 02/01. Follow up speciation of this as well as bronch results. Will send for fungal cultures as well. Needs art line. Stop bob and change to vasopressin. Overall prognosis is very very guarded to poor. 02/03/22: Needs repeat culture with next fever spike. concern now that she is still spiking temps on broad spec abx. may need to broaden even more with antifungal but will discuss tomorrow with pharmacy tomorrow. pH is better but worsening hypoxemia. CXR shows bilateral infiltrates. Will consider bronch tomorrow for washing to be sent for culture. Consider Heme consult tomorrow. Echo was stable. Guarded to poor prognosis. Sugar is better today. 02/02/22: Wean Vasopressors as tolerated for maps >65. Check echo. Stop insulin therapy. Q1hour fSbs and cover with sliding scale. Repeat ABG later today to follow pH. May need some diamox later. Patient now neutropenic and thrombocytopenic, repeated CBC and still the same. may need to consider heme consult. For now continue broad spec abx therapy. prognosis is guarded to poor. 2 amps of NaBicarb pushed Started on Insulin drip Central line placement secondary to lack of access Aggressive volume resuscitation q1 hour fsbs and q6 hour BMPs for the next 36-48 hours Supplemental O2 Not a candidate for bipap currently given mental state so if her respiratory status deteriorates would need intubation. Guarded prognosis. Spoke with daughter briefly at bedside. She did not get off her cell phone so not able to have a full conversation with her about her mother. CCT 31 minutes. Subjective Date of service: 02/16/22 Principal diagnosis: DKA, s/p cardiopulmonary arrest Interval history: no acute events overnight. Checked chart and there is no paperwork in regards to POA. Patient more awake and on Fent at 1. Very minimal vent settings. Objective Vital Signs - 12hr 02/15/22 02/16/22 02/16/22 23:53 00:00 00:10 Temperature 97.6 F Pulse Rate 108 H 109 H 107 H Pulse Rate [ 115 H From Monitor] Respiratory 22 21 Rate Blood Pressure 123/77 124/76 123/77 O2 Sat by Pulse 100 100 100 Oximetry 02/16/22 02/16/22 02/16/22 00:15 00:31 00:45 Temperature Pulse Rate 109 H 113 H 112 H Pulse Rate [ From Monitor] Respiratory 19 21 18 Rate Blood Pressure 124/76 124/76 124/76 O2 Sat by Pulse 100 100 100 Oximetry 02/16/22 02/16/22 02/16/22 01:00 01:15 01:31 Temperature Pulse Rate 113 H 114 H 113 H Pulse Rate [ From Monitor] Respiratory 19 20 18 Rate Blood Pressure 117/77 117/77 117/77 O2 Sat by Pulse 100 100 100 Oximetry 02/16/22 02/16/22 02/16/22 01:45 02:00 02:15 Temperature Pulse Rate 116 H 117 H 112 H Pulse Rate [ From Monitor] Respiratory 22 21 19 Rate Blood Pressure 117/77 137/84 137/84 O2 Sat by Pulse 100 100 100 Oximetry 02/16/22 02/16/22 02/16/22 02:31 02:45 03:00 Temperature Pulse Rate 109 H 107 H 106 H Pulse Rate [ From Monitor] Respiratory 18 21 23 Rate Blood Pressure 137/84 137/84 123/75 O2 Sat by Pulse 100 100 100 Oximetry 02/16/22 02/16/22 02/16/22 03:15 03:31 03:45 Temperature Pulse Rate 106 H 109 H 107 H Pulse Rate [ From Monitor] Respiratory 20 18 17 Rate Blood Pressure 123/75 123/75 123/75 O2 Sat by Pulse 100 100 100 Oximetry 02/16/22 02/16/22 02/16/22 04:00 04:14 04:15 Temperature 98.3 F Pulse Rate 103 H 106 H 109 H Pulse Rate [ 106 H From Monitor] Respiratory 17 17 Rate Blood Pressure 127/79 123/75 127/79 O2 Sat by Pulse 100 100 100 Oximetry 02/16/22 02/16/22 02/16/22 04:31 04:45 05:00 Temperature Pulse Rate 107 H 102 H 107 H Pulse Rate [ From Monitor] Respiratory 21 16 23 Rate Blood Pressure 127/79 127/79 123/80 O2 Sat by Pulse 100 100 100 Oximetry 02/16/22 02/16/22 02/16/22 05:15 05:31 05:45 Temperature Pulse Rate 103 H 116 H 106 H Pulse Rate [ From Monitor] Respiratory 16 17 19 Rate Blood Pressure 123/80 123/80 123/80 O2 Sat by Pulse 100 98 86 Oximetry 02/16/22 02/16/22 02/16/22 06:00 06:15 06:31 Temperature Pulse Rate 106 H 105 H 104 H Pulse Rate [ From Monitor] Respiratory 20 17 19 Rate Blood Pressure 130/76 130/76 130/76 O2 Sat by Pulse 99 100 100 Oximetry 02/16/22 02/16/22 02/16/22 06:45 07:00 07:15 Temperature Pulse Rate 105 H 111 H 105 H Pulse Rate [ From Monitor] Respiratory 21 21 21 Rate Blood Pressure 130/76 131/82 131/82 O2 Sat by Pulse 100 98 100 Oximetry 02/16/22 02/16/22 02/16/22 07:31 07:45 08:00 Temperature 98.2 F Pulse Rate 107 H 110 H 108 H Pulse Rate [ 112 H From Monitor] Respiratory 17 19 21 Rate Blood Pressure 130/76 130/76 132/85 O2 Sat by Pulse 100 100 98 Oximetry 02/16/22 02/16/22 02/16/22 08:15 08:31 08:40 Temperature Pulse Rate 106 H 107 H 111 H Pulse Rate [ From Monitor] Respiratory 17 19 Rate Blood Pressure 132/85 132/85 132/85 O2 Sat by Pulse 99 99 98 Oximetry 02/16/22 02/16/22 02/16/22 08:45 09:00 09:15 Temperature Pulse Rate 112 H 114 H 114 H Pulse Rate [ From Monitor] Respiratory 21 22 22 Rate Blood Pressure 132/85 129/86 129/86 O2 Sat by Pulse 99 98 99 Oximetry 02/16/22 02/16/22 02/16/22 09:31 09:45 10:00 Temperature Pulse Rate 107 H 108 H 111 H Pulse Rate [ From Monitor] Respiratory 21 17 17 Rate Blood Pressure 129/86 129/86 120/74 O2 Sat by Pulse 98 99 98 Oximetry 02/16/22 02/16/22 02/16/22 10:15 10:31 10:45 Temperature Pulse Rate 113 H 110 H 110 H Pulse Rate [ From Monitor] Respiratory 21 20 18 Rate Blood Pressure 120/74 120/74 120/74 O2 Sat by Pulse 98 98 98 Oximetry 02/16/22 02/16/22 02/16/22 11:00 11:13 11:15 Temperature Pulse Rate 108 H 107 H Pulse Rate [ 107 H From Monitor] Respiratory 15 21 Rate Blood Pressure 117/74 O2 Sat by Pulse 98 99 Oximetry Constitutional: other (on vent, orally intubated) Eyes: non-icteric ENT: oropharynx moist Ascultation: Bilateral: diminished breath sounds Cardiovascular: regular rate and rhythm Gastrointestinal: normoactive bowel sounds Integumentary: normal Neurologic: other (on vent) Psychiatric: other (on vent) CBC and BMP: 02/16/22 04:36 02/16/22 04:36 ABG, PT/INR, D-dimer: ABG ABG pH 7.518 pH Units (7.350-7.450) H 02/14/22 18:10 POC ABG pCO2 37.3 mmHg (32.0-48.0) 02/02/22 04:49 ABG pCO2 48.9 mm Hg 02/14/22 18:10 POC ABG pO2 79.9 mmHg (83-108) L 02/02/22 04:49 ABG pO2 97.1 mm Hg (80.0-90.0) H 02/14/22 18:10 POC ABG HCO3 30.3 02/02/22 04:49 ABG O2 Saturation 97.9 % (95.0-99.0) 02/14/22 18:10 PT/INR, D-dimer PT 14.5 Sec. (12.2-14.9) 02/16/22 04:36 INR 1.02 (0.87-1.13) 02/16/22 04:36 Abnormal lab findings: Abnormal Labs 01/31/22 01/31/22 01/31/22 20:33 20:33 20:33 WBC 12.5 H RBC 6.16 H Hgb Hct MCV 61 L MCH 18 L RDW 19.6 H Plt Count Seg Neuts % (Manual) 98.0 H Lymphocytes % (Manual) 0 L Nucleated RBC % 2.0 H Seg Neutrophils # Man 12.3 H Lymphocytes # (Manual) 0.0 L Percent Retic Fibrinogen ABG pH POC ABG pO2 ABG pO2 ABG HCO3 ABG O2 Saturation ABG Base Excess ABG Hemoglobin Oxyhemoglobin Carboxyhemoglobin Sodium Potassium 5.6 H Chloride 110.1 H Carbon Dioxide 9 L* BUN Creatinine Glucose 254 H POC Glucose Hemoglobin A1c Lactic Acid 2.50 H* Calcium 10.8 H Phosphorus Magnesium Direct Bilirubin AST ALT Alkaline Phosphatase Lactate Dehydrogenase Total Protein Albumin Ur Specific [place] Urine Blood Urine WBC (Auto) Vancomycin Trough Crossmatch 01/31/22 02/01/22 02/01/22 22:49 07:34 08: WBC RBC Hgb Hct MCV MCH RDW Plt Count Seg Neuts % (Manual) Lymphocytes % (Manual) Nucleated RBC % Seg Neutrophils # Man Lymphocytes # (Manual) Percent Retic Fibrinogen ABG pH POC ABG pO2 ABG pO2 ABG HCO3 ABG O2 Saturation ABG Base Excess ABG Hemoglobin Oxyhemoglobin Carboxyhemoglobin Sodium Potassium 5.8 H Chloride 115.8 H Carbon Dioxide 3 L* BUN Creatinine Glucose 400 H POC Glucose 368 H Hemoglobin A1c Lactic Acid Calcium Phosphorus Magnesium Direct Bilirubin AST ALT Alkaline Phosphatase Lactate Dehydrogenase Total Protein Albumin Ur Specific [place] 1.035 H Urine Blood Small A Urine WBC (Auto) 142.0 H Vancomycin Trough Crossmatch 02/01/22 02/01/22 02/01/22 09:42 12:01 12:54 WBC RBC Hgb Hct MCV MCH RDW Plt Count Seg Neuts % (Manual) Lymphocytes % (Manual) Nucleated RBC % Seg Neutrophils # Man Lymphocytes # (Manual) Percent Retic Fibrinogen ABG pH 7.044 L* POC ABG pO2 ABG pO2 121.0 H ABG HCO3 3.7 L ABG O2 Saturation ABG Base Excess -24.8 L ABG Hemoglobin 9.3 L Oxyhemoglobin Carboxyhemoglobin Sodium Potassium Chloride Carbon Dioxide BUN Creatinine Glucose POC Glucose 382 H Hemoglobin A1c Lactic Acid Calcium Phosphorus 1.40 L Magnesium 1.30 L Direct Bilirubin AST ALT Alkaline Phosphatase Lactate Dehydrogenase Total Protein Albumin Ur Specific [place] Urine Blood Urine WBC (Auto) Vancomycin Trough Crossmatch 02/01/22 02/01/22 02/01/22 12:54 12:54 13:27 WBC RBC Hgb Hct MCV MCH RDW Plt Count Seg Neuts % (Manual) Lymphocytes % (Manual) Nucleated RBC % Seg Neutrophils # Man Lymphocytes # (Manual) Percent Retic Fibrinogen ABG pH POC ABG pO2 ABG pO2 ABG HCO3 ABG O2 Saturation ABG Base Excess ABG Hemoglobin Oxyhemoglobin Carboxyhemoglobin Sodium 148 H D Potassium 3.0 L D Chloride 117.3 H Carbon Dioxide 9 L* BUN Creatinine Glucose 439 H POC Glucose 342 H Hemoglobin A1c 11.1 H Lactic Acid Calcium 7.7 L Phosphorus Magnesium Direct Bilirubin AST ALT Alkaline Phosphatase Lactate Dehydrogenase Total Protein Albumin Ur Specific [place] Urine Blood Urine WBC (Auto) Vancomycin Trough Crossmatch 02/01/22 02/01/22 02/01/22 14:48 15:48 16:54 WBC RBC Hgb Hct MCV MCH RDW Plt Count Seg Neuts % (Manual) Lymphocytes % (Manual) Nucleated RBC % Seg Neutrophils # Man Lymphocytes # (Manual) Percent Retic Fibrinogen ABG pH POC ABG pO2 ABG pO2 ABG HCO3 ABG O2 Saturation ABG Base Excess ABG Hemoglobin Oxyhemoglobin Carboxyhemoglobin Sodium Potassium Chloride Carbon Dioxide BUN Creatinine Glucose POC Glucose 394 H 412 H 352 H Hemoglobin A1c Lactic Acid Calcium Phosphorus Magnesium Direct Bilirubin AST ALT Alkaline Phosphatase Lactate Dehydrogenase Total Protein Albumin Ur Specific [place] Urine Blood Urine WBC (Auto) Vancomycin Trough Crossmatch 02/01/22 02/01/22 02/01/22 18:23 18:53 19:26 WBC RBC Hgb Hct MCV MCH RDW Plt Count Seg Neuts % (Manual) Lymphocytes % (Manual) Nucleated RBC % Seg Neutrophils # Man Lymphocytes # (Manual) Percent Retic Fibrinogen ABG pH 7.331 L POC ABG pO2 ABG pO2 121.4 H ABG HCO3 ABG O2 Saturation ABG Base Excess -4.9 L ABG Hemoglobin 8.4 L Oxyhemoglobin Carboxyhemoglobin Sodium Potassium Chloride Carbon Dioxide BUN Creatinine Glucose POC Glucose 350 H 260 H Hemoglobin A1c Lactic Acid Calcium Phosphorus Magnesium Direct Bilirubin AST ALT Alkaline Phosphatase Lactate Dehydrogenase Total Protein Albumin Ur Specific [place] Urine Blood Urine WBC (Auto) Vancomycin Trough Crossmatch 02/01/22 02/01/22 02/01/22 20:20 21:38 22:41 WBC RBC Hgb Hct MCV MCH RDW Plt Count Seg Neuts % (Manual) Lymphocytes % (Manual) Nucleated RBC % Seg Neutrophils # Man Lymphocytes # (Manual) Percent Retic Fibrinogen ABG pH POC ABG pO2 ABG pO2 ABG HCO3 ABG O2 Saturation ABG Base Excess ABG Hemoglobin Oxyhemoglobin Carboxyhemoglobin Sodium Potassium Chloride Carbon Dioxide BUN Creatinine Glucose POC Glucose 266 H 195 H 150 H Hemoglobin A1c Lactic Acid Calcium Phosphorus Magnesium Direct Bilirubin AST ALT Alkaline Phosphatase Lactate Dehydrogenase Total Protein Albumin Ur Specific [place] Urine Blood Urine WBC (Auto) Vancomycin Trough Crossmatch 02/01/22 02/02/22 02/02/22 23:39 00:25 00:25 WBC RBC Hgb Hct MCV MCH RDW Plt Count Seg Neuts % (Manual) Lymphocytes % (Manual) Nucleated RBC % Seg Neutrophils # Man Lymphocytes # (Manual) Percent Retic Fibrinogen ABG pH POC ABG pO2 ABG pO2 ABG HCO3 ABG O2 Saturation ABG Base Excess ABG Hemoglobin Oxyhemoglobin Carboxyhemoglobin Sodium 156 H D Potassium 3.0 L Chloride 114.2 H Carbon Dioxide BUN Creatinine 0.5 L Glucose 63 L POC Glucose 125 H Hemoglobin A1c Lactic Acid 7.10 H* Calcium 8.1 L Phosphorus Magnesium Direct Bilirubin AST ALT Alkaline Phosphatase Lactate Dehydrogenase Total Protein Albumin Ur Specific [place] Urine Blood Urine WBC (Auto) Vancomycin Trough Crossmatch 02/02/22 02/02/22 02/02/22 04:00 04:00 04:35 WBC 1.4 L* RBC Hgb 8.5 L Hct 26.8 L D MCV 57 L MCH 18 L RDW 19.0 H Plt Count 129 L Seg Neuts % (Manual) 33.0 L Lymphocytes % (Manual) 57.0 H Nucleated RBC % Seg Neutrophils # Man 0.5 L Lymphocytes # (Manual) 0.8 L Percent Retic Fibrinogen ABG pH POC ABG pO2 ABG pO2 ABG HCO3 ABG O2 Saturation ABG Base Excess ABG Hemoglobin Oxyhemoglobin Carboxyhemoglobin Sodium 155 H Potassium Chloride 113.1 H Carbon Dioxide BUN Creatinine Glucose 159 H POC Glucose Hemoglobin A1c Lactic Acid 3.10 H* Calcium 7.6 L Phosphorus Magnesium Direct Bilirubin AST ALT Alkaline Phosphatase Lactate Dehydrogenase Total Protein Albumin Ur Specific [place] Urine Blood Urine WBC (Auto) Vancomycin Trough Crossmatch 02/02/22 02/02/22 02/02/22 04:37 04:49 05:43 WBC RBC Hgb Hct MCV MCH RDW Plt Count Seg Neuts % (Manual) Lymphocytes % (Manual) Nucleated RBC % Seg Neutrophils # Man Lymphocytes # (Manual) Percent Retic Fibrinogen ABG pH 7.528 H POC ABG pO2 79.9 L ABG pO2 ABG HCO3 ABG O2 Saturation ABG Base Excess ABG Hemoglobin 8.8 L Oxyhemoglobin Carboxyhemoglobin 0.2 L Sodium Potassium Chloride Carbon Dioxide BUN Creatinine Glucose POC Glucose 116 H 125 H Hemoglobin A1c Lactic Acid Calcium Phosphorus Magnesium Direct Bilirubin AST ALT Alkaline Phosphatase Lactate Dehydrogenase Total Protein Albumin Ur Specific [place] Urine Blood Urine WBC (Auto) Vancomycin Trough Crossmatch 02/02/22 02/02/22 02/02/22 06:52 09:02 09:05 WBC RBC Hgb Hct MCV MCH RDW Plt Count Seg Neuts % (Manual) Lymphocytes % (Manual) Nucleated RBC % Seg Neutrophils # Man Lymphocytes # (Manual) Percent Retic Fibrinogen ABG pH POC ABG pO2 ABG pO2 ABG HCO3 ABG O2 Saturation ABG Base Excess ABG Hemoglobin Oxyhemoglobin Carboxyhemoglobin Sodium 154 H Potassium 3.3 L Chloride 113.3 H Carbon Dioxide BUN Creatinine Glucose 35 L* POC Glucose 110 H 35 L Hemoglobin A1c Lactic Acid Calcium 7.4 L Phosphorus 1.70 L D Magnesium 2.50 H Direct Bilirubin AST ALT Alkaline Phosphatase Lactate Dehydrogenase Total Protein Albumin Ur Specific [place] Urine Blood Urine WBC (Auto) Vancomycin Trough Crossmatch 02/02/22 02/02/22 02/02/22 09:05 09:30 09:41 WBC 2.6 L RBC Hgb 8.0 L Hct 25.0 L MCV 57 L MCH 18 L RDW 18.8 H Plt Count 97 L Seg Neuts % (Manual) Lymphocytes % (Manual) 12.0 L Nucleated RBC % 10.0 H Seg Neutrophils # Man 1.7 L Lymphocytes # (Manual) 0.3 L Percent Retic Fibrinogen ABG pH POC ABG pO2 ABG pO2 ABG HCO3 ABG O2 Saturation ABG Base Excess ABG Hemoglobin Oxyhemoglobin Carboxyhemoglobin Sodium Potassium Chloride Carbon Dioxide BUN Creatinine Glucose POC Glucose 119 H Hemoglobin A1c Lactic Acid 7.10 H* Calcium Phosphorus Magnesium Direct Bilirubin AST ALT Alkaline Phosphatase Lactate Dehydrogenase Total Protein Albumin Ur Specific [place] Urine Blood Urine WBC (Auto) Vancomycin Trough Crossmatch 02/02/22 02/02/22 02/02/22 10:17 12:32 15:39 WBC RBC Hgb Hct MCV MCH RDW Plt Count Seg Neuts % (Manual) Lymphocytes % (Manual) Nucleated RBC % Seg Neutrophils # Man Lymphocytes # (Manual) Percent Retic Fibrinogen ABG pH POC ABG pO2 ABG pO2 ABG HCO3 ABG O2 Saturation ABG Base Excess ABG Hemoglobin Oxyhemoglobin Carboxyhemoglobin Sodium Potassium Chloride Carbon Dioxide BUN Creatinine Glucose POC Glucose 120 H 166 H 263 H Hemoglobin A1c Lactic Acid Calcium Phosphorus Magnesium Direct Bilirubin AST ALT Alkaline Phosphatase Lactate Dehydrogenase Total Protein Albumin Ur Specific [place] Urine Blood Urine WBC (Auto) Vancomycin Trough Crossmatch 02/02/22 02/02/22 02/02/22 17:07 17:50 Unknown WBC RBC Hgb Hct MCV MCH RDW Plt Count Seg Neuts % (Manual) Lymphocytes % (Manual) Nucleated RBC % Seg Neutrophils # Man Lymphocytes # (Manual) Percent Retic Fibrinogen ABG pH 7.457 H POC ABG pO2 ABG pO2 71.0 L ABG HCO3 ABG O2 Saturation 94.5 L ABG Base Excess ABG Hemoglobin 9.2 L Oxyhemoglobin 93.0 L Carboxyhemoglobin Sodium 147 H Potassium 5.5 H D Chloride 110.8 H Carbon Dioxide BUN Creatinine Glucose 271 H POC Glucose 231 H Hemoglobin A1c Lactic Acid Calcium 7.3 L Phosphorus Magnesium Direct Bilirubin AST ALT Alkaline Phosphatase Lactate Dehydrogenase Total Protein Albumin Ur Specific [place] Urine Blood Urine WBC (Auto) Vancomycin Trough Crossmatch 02/03/22 02/03/22 02/03/22 00:08 04:00 04:00 WBC 3.7 L RBC Hgb 8.0 L Hct 25.5 L MCV 58 L MCH 18 L RDW 18.2 H Plt Count 79 L Seg Neuts % (Manual) 76.0 H Lymphocytes % (Manual) 2.0 L Nucleated RBC % 4.0 H Seg Neutrophils # Man Lymphocytes # (Manual) 0.1 L Percent Retic Fibrinogen ABG pH POC ABG pO2 ABG pO2 ABG HCO3 ABG O2 Saturation ABG Base Excess ABG Hemoglobin Oxyhemoglobin Carboxyhemoglobin Sodium 147 H Potassium Chloride 112.9 H Carbon Dioxide BUN Creatinine Glucose 281 H POC Glucose 231 H Hemoglobin A1c Lactic Acid Calcium 7.8 L Phosphorus Magnesium Direct Bilirubin 0.3 H AST 172 H ALT 89 H Alkaline Phosphatase Lactate Dehydrogenase Total Protein 4.7 L D Albumin 2.0 L Ur Specific [place] Urine Blood Urine WBC (Auto) Vancomycin Trough Crossmatch 02/03/22 02/03/22 02/03/22 04:20 05:26 11:38 WBC RBC Hgb Hct MCV MCH RDW Plt Count Seg Neuts % (Manual) Lymphocytes % (Manual) Nucleated RBC % Seg Neutrophils # Man Lymphocytes # (Manual) Percent Retic Fibrinogen ABG pH POC ABG pO2 ABG pO2 75.5 L ABG HCO3 ABG O2 Saturation ABG Base Excess -2.8 L ABG Hemoglobin 8.1 L Oxyhemoglobin 94.6 L Carboxyhemoglobin Sodium Potassium Chloride Carbon Dioxide BUN Creatinine Glucose POC Glucose 247 H 196 H Hemoglobin A1c Lactic Acid Calcium Phosphorus Magnesium Direct Bilirubin AST ALT Alkaline Phosphatase Lactate Dehydrogenase Total Protein Albumin Ur Specific [place] Urine Blood Urine WBC (Auto) Vancomycin Trough Crossmatch 02/03/22 02/04/22 02/04/22 16:27 02:44 03:18 WBC 1.2 L* RBC Hgb 8.2 L Hct 26.6 L MCV 59 L MCH 18 L RDW 19.6 H Plt Count 50 L Seg Neuts % (Manual) Lymphocytes % (Manual) Nucleated RBC % Seg Neutrophils # Man Lymphocytes # (Manual) Percent Retic Fibrinogen ABG pH POC ABG pO2 ABG pO2 ABG HCO3 ABG O2 Saturation ABG Base Excess ABG Hemoglobin Oxyhemoglobin Carboxyhemoglobin Sodium 148 H Potassium Chloride 116.3 H Carbon Dioxide BUN Creatinine Glucose 139 H POC Glucose 119 H Hemoglobin A1c Lactic Acid Calcium Phosphorus Magnesium Direct Bilirubin 0.3 H AST 92 H ALT 76 H Alkaline Phosphatase Lactate Dehydrogenase Total Protein 4.7 L Albumin 1.6 L Ur Specific [place] Urine Blood Urine WBC (Auto) Vancomycin Trough Crossmatch 02/04/22 02/04/22 02/04/22 05:15 05:26 09:15 WBC RBC Hgb Hct MCV MCH RDW Plt Count Seg Neuts % (Manual) Lymphocytes % (Manual) Nucleated RBC % Seg Neutrophils # Man Lymphocytes # (Manual) Percent Retic Fibrinogen ABG pH 7.311 L POC ABG pO2 ABG pO2 50.1 L ABG HCO3 ABG O2 Saturation 83.6 L ABG Base Excess ABG Hemoglobin 8.6 L Oxyhemoglobin 81.9 L Carboxyhemoglobin Sodium Potassium Chloride Carbon Dioxide BUN Creatinine Glucose POC Glucose 115 H Hemoglobin A1c Lactic Acid Calcium Phosphorus Magnesium Direct Bilirubin AST ALT Alkaline Phosphatase Lactate Dehydrogenase Total Protein Albumin Ur Specific [place] Urine Blood Large A Urine WBC (Auto) 12.0 H Vancomycin Trough Crossmatch 02/04/22 02/04/22 02/04/22 11:17 14:37 17:04 WBC RBC Hgb Hct MCV MCH RDW Plt Count Seg Neuts % (Manual) Lymphocytes % (Manual) Nucleated RBC % Seg Neutrophils # Man Lymphocytes # (Manual) Percent Retic Fibrinogen ABG pH POC ABG pO2 ABG pO2 ABG HCO3 ABG O2 Saturation ABG Base Excess ABG Hemoglobin Oxyhemoglobin Carboxyhemoglobin Sodium Potassium Chloride Carbon Dioxide BUN Creatinine Glucose POC Glucose 166 H 109 H Hemoglobin A1c Lactic Acid Calcium Phosphorus Magnesium Direct Bilirubin AST 87 H ALT 75 H Alkaline Phosphatase 137 H Lactate Dehydrogenase Total Protein 4.6 L Albumin 1.7 L Ur Specific [place] Urine Blood Urine WBC (Auto) Vancomycin Trough Crossmatch 02/04/22 02/04/22 02/04/22 20:15 20:22 20:22 WBC RBC Hgb 7.1 L Hct 22.6 L MCV MCH RDW Plt Count Seg Neuts % (Manual) Lymphocytes % (Manual) Nucleated RBC % Seg Neutrophils # Man Lymphocytes # (Manual) Percent Retic Fibrinogen ABG pH 7.292 L POC ABG pO2 ABG pO2 40.3 L ABG HCO3 ABG O2 Saturation 72.1 L ABG Base Excess -2.2 L ABG Hemoglobin 7.0 L Oxyhemoglobin 70.5 L Carboxyhemoglobin Sodium Potassium Chloride Carbon Dioxide BUN Creatinine Glucose POC Glucose Hemoglobin A1c Lactic Acid 3.00 H* Calcium Phosphorus Magnesium Direct Bilirubin AST ALT Alkaline Phosphatase Lactate Dehydrogenase Total Protein Albumin Ur Specific [place] Urine Blood Urine WBC (Auto) Vancomycin Trough Crossmatch 02/04/22 02/04/22 02/05/22 20:22 23:03 04:40 WBC 3.1 L RBC Hgb 9.6 L Hct 30.1 L D MCV 64 L MCH 20 L RDW 26.9 H Plt Count 50 L Seg Neuts % (Manual) Lymphocytes % (Manual) Nucleated RBC % Seg Neutrophils # Man Lymphocytes # (Manual) Percent Retic Fibrinogen ABG pH POC ABG pO2 ABG pO2 ABG HCO3 ABG O2 Saturation ABG Base Excess ABG Hemoglobin Oxyhemoglobin Carboxyhemoglobin Sodium Potassium Chloride Carbon Dioxide BUN Creatinine Glucose POC Glucose 171 H Hemoglobin A1c Lactic Acid Calcium Phosphorus Magnesium Direct Bilirubin AST ALT Alkaline Phosphatase Lactate Dehydrogenase Total Protein Albumin Ur Specific [place] Urine Blood Urine WBC (Auto) Vancomycin Trough Crossmatch See Detail 02/05/22 02/05/22 02/05/22 04:40 04:40 04:43 WBC RBC Hgb Hct MCV MCH RDW Plt Count Seg Neuts % (Manual) Lymphocytes % (Manual) Nucleated RBC % Seg Neutrophils # Man Lymphocytes # (Manual) Percent Retic Fibrinogen ABG pH POC ABG pO2 ABG pO2 ABG HCO3 ABG O2 Saturation ABG Base Excess ABG Hemoglobin Oxyhemoglobin Carboxyhemoglobin Sodium 148 H Potassium Chloride 113.2 H Carbon Dioxide BUN 21 H Creatinine Glucose 155 H POC Glucose 156 H Hemoglobin A1c Lactic Acid Calcium Phosphorus Magnesium Direct Bilirubin AST 84 H ALT 67 H Alkaline Phosphatase 152 H Lactate Dehydrogenase 879 H Total Protein 5.0 L Albumin 1.8 L Ur Specific [place] Urine Blood Urine WBC (Auto) Vancomycin Trough Crossmatch 02/05/22 02/05/22 02/05/22 08:10 08:48 08:48 WBC RBC Hgb Hct MCV MCH RDW Plt Count Seg Neuts % (Manual) Lymphocytes % (Manual) Nucleated RBC % Seg Neutrophils # Man Lymphocytes # (Manual) Percent Retic Fibrinogen 795 H ABG pH POC ABG pO2 ABG pO2 57.1 L ABG HCO3 27.8 H ABG O2 Saturation 90.8 L ABG Base Excess ABG Hemoglobin 8.5 L Oxyhemoglobin 88.9 L Carboxyhemoglobin Sodium Potassium Chloride Carbon Dioxide BUN Creatinine Glucose POC Glucose Hemoglobin A1c Lactic Acid 2.90 H* Calcium Phosphorus Magnesium Direct Bilirubin AST ALT Alkaline Phosphatase Lactate Dehydrogenase Total Protein Albumin Ur Specific [place] Urine Blood Urine WBC (Auto) Vancomycin Trough Crossmatch 02/05/22 02/05/22 02/05/22 11:46 17:45 Unknown WBC RBC Hgb Hct MCV MCH RDW Plt Count Seg Neuts % (Manual) Lymphocytes % (Manual) Nucleated RBC % Seg Neutrophils # Man Lymphocytes # (Manual) Percent Retic Fibrinogen ABG pH POC ABG pO2 ABG pO2 ABG HCO3 ABG O2 Saturation ABG Base Excess ABG Hemoglobin Oxyhemoglobin Carboxyhemoglobin Sodium Potassium Chloride Carbon Dioxide BUN Creatinine Glucose POC Glucose 61 L 133 H Hemoglobin A1c Lactic Acid Calcium Phosphorus Magnesium Direct Bilirubin AST ALT Alkaline Phosphatase Lactate Dehydrogenase Total Protein Albumin Ur Specific [place] Urine Blood Urine WBC (Auto) Vancomycin Trough 28.6 H Crossmatch 02/05/22 02/06/22 02/06/22 23:59 04:33 04:33 WBC RBC Hgb 8.4 L Hct 26.1 L MCV 64 L MCH 21 L RDW 26.2 H Plt Count 38 L Seg Neuts % (Manual) Lymphocytes % (Manual) Nucleated RBC % Seg Neutrophils # Man Lymphocytes # (Manual) Percent Retic Fibrinogen ABG pH POC ABG pO2 ABG pO2 ABG HCO3 ABG O2 Saturation ABG Base Excess ABG Hemoglobin Oxyhemoglobin Carboxyhemoglobin Sodium 146 H Potassium 3.4 L Chloride Carbon Dioxide 31 H BUN 21 H Creatinine Glucose 230 H POC Glucose 275 H Hemoglobin A1c Lactic Acid Calcium Phosphorus Magnesium Direct Bilirubin AST 70 H ALT Alkaline Phosphatase 197 H Lactate Dehydrogenase Total Protein 5.3 L Albumin 2.4 L Ur Specific [place] Urine Blood Urine WBC (Auto) Vancomycin Trough Crossmatch 02/06/22 02/06/22 02/06/22 04:33 04:50 06:19 WBC RBC Hgb Hct MCV MCH RDW Plt Count Seg Neuts % (Manual) Lymphocytes % (Manual) Nucleated RBC % Seg Neutrophils # Man Lymphocytes # (Manual) Percent Retic Fibrinogen ABG pH 7.330 L POC ABG pO2 ABG pO2 57.9 L ABG HCO3 31.3 H ABG O2 Saturation 89.6 L ABG Base Excess 4.5 H ABG Hemoglobin 8.1 L Oxyhemoglobin 87.7 L Carboxyhemoglobin Sodium Potassium Chloride Carbon Dioxide BUN Creatinine Glucose POC Glucose 219 H Hemoglobin A1c Lactic Acid 3.10 H* Calcium Phosphorus Magnesium Direct Bilirubin AST ALT Alkaline Phosphatase Lactate Dehydrogenase Total Protein Albumin Ur Specific [place] Urine Blood Urine WBC (Auto) Vancomycin Trough Crossmatch 02/06/22 02/06/22 02/06/22 11:24 11:50 12:26 WBC RBC Hgb Hct MCV MCH RDW Plt Count Seg Neuts % (Manual) Lymphocytes % (Manual) Nucleated RBC % Seg Neutrophils # Man Lymphocytes # (Manual) Percent Retic Fibrinogen ABG pH 7.298 L POC ABG pO2 ABG pO2 43.3 L ABG HCO3 36.7 H ABG O2 Saturation 74.9 L ABG Base Excess 8.8 H ABG Hemoglobin 8.2 L Oxyhemoglobin 73.3 L Carboxyhemoglobin Sodium Potassium Chloride Carbon Dioxide BUN Creatinine Glucose POC Glucose 118 H Hemoglobin A1c Lactic Acid 2.50 H* Calcium Phosphorus Magnesium Direct Bilirubin AST ALT Alkaline Phosphatase Lactate Dehydrogenase Total Protein Albumin Ur Specific [place] Urine Blood Urine WBC (Auto) Vancomycin Trough Crossmatch 02/06/22 02/06/22 02/07/22 17:41 21:41 00:17 WBC RBC Hgb Hct MCV MCH RDW Plt Count Seg Neuts % (Manual) Lymphocytes % (Manual) Nucleated RBC % Seg Neutrophils # Man Lymphocytes # (Manual) Percent Retic Fibrinogen ABG pH POC ABG pO2 ABG pO2 ABG HCO3 ABG O2 Saturation ABG Base Excess ABG Hemoglobin Oxyhemoglobin Carboxyhemoglobin Sodium Potassium Chloride Carbon Dioxide BUN Creatinine Glucose POC Glucose 208 H 282 H 342 H Hemoglobin A1c Lactic Acid Calcium Phosphorus Magnesium Direct Bilirubin AST ALT Alkaline Phosphatase Lactate Dehydrogenase Total Protein Albumin Ur Specific [place] Urine Blood Urine WBC (Auto) Vancomycin Trough Crossmatch 02/07/22 02/07/22 02/07/22 00:19 04:12 04:12 WBC 13.1 H RBC Hgb 8.5 L Hct 26.4 L MCV 62 L MCH 20 L RDW 24.2 H Plt Count 57 L Seg Neuts % (Manual) Lymphocytes % (Manual) Nucleated RBC % Seg Neutrophils # Man Lymphocytes # (Manual) Percent Retic Fibrinogen ABG pH POC ABG pO2 ABG pO2 ABG HCO3 ABG O2 Saturation ABG Base Excess ABG Hemoglobin Oxyhemoglobin Carboxyhemoglobin Sodium 149 H Potassium 3.1 L Chloride Carbon Dioxide 38 H D BUN 23 H Creatinine Glucose 298 H POC Glucose 209 H Hemoglobin A1c Lactic Acid Calcium Phosphorus 2.10 L Magnesium Direct Bilirubin AST 49 H ALT Alkaline Phosphatase 248 H Lactate Dehydrogenase Total Protein 5.4 L Albumin 2.7 L Ur Specific [place] Urine Blood Urine WBC (Auto) Vancomycin Trough Crossmatch 02/07/22 02/07/22 02/07/22 04:40 07:09 07:13 WBC RBC Hgb Hct MCV MCH RDW Plt Count Seg Neuts % (Manual) Lymphocytes % (Manual) Nucleated RBC % Seg Neutrophils # Man Lymphocytes # (Manual) Percent Retic Fibrinogen ABG pH 7.474 H POC ABG pO2 ABG pO2 62.1 L ABG HCO3 39.1 H ABG O2 Saturation 94.7 L ABG Base Excess 13.9 H ABG Hemoglobin 8.6 L Oxyhemoglobin 93.0 L Carboxyhemoglobin Sodium Potassium Chloride Carbon Dioxide BUN Creatinine Glucose POC Glucose 399 H 418 H Hemoglobin A1c Lactic Acid Calcium Phosphorus Magnesium Direct Bilirubin AST ALT Alkaline Phosphatase Lactate Dehydrogenase Total Protein Albumin Ur Specific [place] Urine Blood Urine WBC (Auto) Vancomycin Trough Crossmatch 02/07/22 02/07/22 02/07/22 12:20 17:29 23:37 WBC RBC Hgb Hct MCV MCH RDW Plt Count Seg Neuts % (Manual) Lymphocytes % (Manual) Nucleated RBC % Seg Neutrophils # Man Lymphocytes # (Manual) Percent Retic Fibrinogen ABG pH POC ABG pO2 ABG pO2 ABG HCO3 ABG O2 Saturation ABG Base Excess ABG Hemoglobin Oxyhemoglobin Carboxyhemoglobin Sodium Potassium Chloride Carbon Dioxide BUN Creatinine Glucose POC Glucose 229 H 159 H 236 H Hemoglobin A1c Lactic Acid Calcium Phosphorus Magnesium Direct Bilirubin AST ALT Alkaline Phosphatase Lactate Dehydrogenase Total Protein Albumin Ur Specific [place] Urine Blood Urine WBC (Auto) Vancomycin Trough Crossmatch 02/08/22 02/08/22 02/08/22 03:55 03:55 05:20 WBC 14.7 H RBC Hgb 7.7 L Hct 25.0 L MCV 64 L MCH 20 L RDW 25.1 H Plt Count 79 L Seg Neuts % (Manual) Lymphocytes % (Manual) Nucleated RBC % Seg Neutrophils # Man Lymphocytes # (Manual) Percent Retic 0.65 L Fibrinogen ABG pH POC ABG pO2 ABG pO2 ABG HCO3 ABG O2 Saturation ABG Base Excess ABG Hemoglobin Oxyhemoglobin Carboxyhemoglobin Sodium Potassium 3.0 L Chloride 93.9 L Carbon Dioxide 44 H* BUN 30 H Creatinine Glucose 229 H POC Glucose 235 H Hemoglobin A1c Lactic Acid Calcium 8.3 L Phosphorus 2.30 L Magnesium Direct Bilirubin AST 77 H ALT Alkaline Phosphatase 246 H Lactate Dehydrogenase Total Protein 5.2 L Albumin 2.7 L Ur Specific [place] Urine Blood Urine WBC (Auto) Vancomycin Trough Crossmatch 02/08/22 02/08/22 02/08/22 11:47 16:36 21:41 WBC RBC Hgb Hct MCV MCH RDW Plt Count Seg Neuts % (Manual) Lymphocytes % (Manual) Nucleated RBC % Seg Neutrophils # Man Lymphocytes # (Manual) Percent Retic Fibrinogen ABG pH POC ABG pO2 ABG pO2 ABG HCO3 ABG O2 Saturation ABG Base Excess ABG Hemoglobin Oxyhemoglobin Carboxyhemoglobin Sodium Potassium Chloride Carbon Dioxide BUN Creatinine Glucose POC Glucose 193 H 205 H 292 H Hemoglobin A1c Lactic Acid Calcium Phosphorus Magnesium Direct Bilirubin AST ALT Alkaline Phosphatase Lactate Dehydrogenase Total Protein Albumin Ur Specific [place] Urine Blood Urine WBC (Auto) Vancomycin Trough Crossmatch 02/08/22 02/08/22 02/09/22 Unknown 23:59 04:00 WBC 16.4 H RBC Hgb 8.2 L Hct 26.3 L MCV 63 L MCH 20 L RDW 23.9 H Plt Count 128 L Seg Neuts % (Manual) Lymphocytes % (Manual) Nucleated RBC % Seg Neutrophils # Man Lymphocytes # (Manual) Percent Retic Fibrinogen ABG pH 7.488 H POC ABG pO2 ABG pO2 63.1 L ABG HCO3 45.5 H ABG O2 Saturation 94.1 L ABG Base Excess 19.8 H ABG Hemoglobin 8.7 L Oxyhemoglobin 92.4 L Carboxyhemoglobin Sodium Potassium Chloride Carbon Dioxide BUN Creatinine Glucose POC Glucose 342 H Hemoglobin A1c Lactic Acid Calcium Phosphorus Magnesium Direct Bilirubin AST ALT Alkaline Phosphatase Lactate Dehydrogenase Total Protein Albumin Ur Specific [place] Urine Blood Urine WBC (Auto) Vancomycin Trough Crossmatch 02/09/22 02/09/22 02/09/22 04:00 05:30 06:07 WBC RBC Hgb Hct MCV MCH RDW Plt Count Seg Neuts % (Manual) Lymphocytes % (Manual) Nucleated RBC % Seg Neutrophils # Man Lymphocytes # (Manual) Percent Retic Fibrinogen ABG pH 7.539 H POC ABG pO2 ABG pO2 210.4 H ABG HCO3 42.4 H ABG O2 Saturation 99.3 H ABG Base Excess 18.0 H ABG Hemoglobin 7.8 L Oxyhemoglobin Carboxyhemoglobin Sodium 149 H Potassium 3.1 L Chloride 97.6 L Carbon Dioxide 42 H* BUN 27 H Creatinine Glucose 257 H POC Glucose 260 H Hemoglobin A1c Lactic Acid Calcium 8.2 L Phosphorus 1.90 L Magnesium Direct Bilirubin AST 81 H ALT Alkaline Phosphatase 229 H Lactate Dehydrogenase Total Protein 5.4 L Albumin 2.6 L Ur Specific [place] Urine Blood Urine WBC (Auto) Vancomycin Trough Crossmatch 02/09/22 02/09/22 02/09/22 11:16 17:33 20:25 WBC RBC Hgb Hct MCV MCH RDW Plt Count Seg Neuts % (Manual) Lymphocytes % (Manual) Nucleated RBC % Seg Neutrophils # Man Lymphocytes # (Manual) Percent Retic Fibrinogen ABG pH 7.504 H POC ABG pO2 ABG pO2 79.7 L ABG HCO3 44.2 H ABG O2 Saturation ABG Base Excess 19.2 H ABG Hemoglobin 7.0 L Oxyhemoglobin Carboxyhemoglobin Sodium Potassium Chloride Carbon Dioxide BUN Creatinine Glucose POC Glucose 184 H 123 H Hemoglobin A1c Lactic Acid Calcium Phosphorus Magnesium Direct Bilirubin AST ALT Alkaline Phosphatase Lactate Dehydrogenase Total Protein Albumin Ur Specific [place] Urine Blood Urine WBC (Auto) Vancomycin Trough Crossmatch 02/09/22 02/09/22 02/10/22 21:16 23:13 03:40 WBC 17.2 H RBC Hgb 7.9 L Hct 25.3 L MCV 63 L MCH 20 L RDW 20.7 H Plt Count Seg Neuts % (Manual) Lymphocytes % (Manual) Nucleated RBC % Seg Neutrophils # Man Lymphocytes # (Manual) Percent Retic Fibrinogen ABG pH POC ABG pO2 ABG pO2 ABG HCO3 ABG O2 Saturation ABG Base Excess ABG Hemoglobin Oxyhemoglobin Carboxyhemoglobin Sodium Potassium Chloride Carbon Dioxide BUN Creatinine Glucose POC Glucose 186 H 276 H Hemoglobin A1c Lactic Acid Calcium Phosphorus Magnesium Direct Bilirubin AST ALT Alkaline Phosphatase Lactate Dehydrogenase Total Protein Albumin Ur Specific [place] Urine Blood Urine WBC (Auto) Vancomycin Trough Crossmatch 02/10/22 02/10/22 02/10/22 03:40 04:17 04:17 WBC RBC Hgb Hct MCV MCH RDW Plt Count Seg Neuts % (Manual) Lymphocytes % (Manual) Nucleated RBC % Seg Neutrophils # Man Lymphocytes # (Manual) Percent Retic Fibrinogen ABG pH 7.468 H POC ABG pO2 ABG pO2 124.2 H ABG HCO3 42.1 H ABG O2 Saturation ABG Base Excess 16.6 H ABG Hemoglobin 7.6 L Oxyhemoglobin Carboxyhemoglobin Sodium 149 H Potassium 3.2 L Chloride Carbon Dioxide 38 H BUN 26 H Creatinine 0.5 L Glucose 188 H POC Glucose 189 H Hemoglobin A1c Lactic Acid Calcium 8.3 L Phosphorus 2.10 L Magnesium Direct Bilirubin AST 120 H ALT 80 H Alkaline Phosphatase 207 H Lactate Dehydrogenase Total Protein 5.3 L Albumin 2.4 L Ur Specific [place] Urine Blood Urine WBC (Auto) Vancomycin Trough Crossmatch 02/10/22 02/10/22 02/10/22 11:46 16:27 21:15 WBC RBC Hgb Hct MCV MCH RDW Plt Count Seg Neuts % (Manual) Lymphocytes % (Manual) Nucleated RBC % Seg Neutrophils # Man Lymphocytes # (Manual) Percent Retic Fibrinogen ABG pH POC ABG pO2 ABG pO2 ABG HCO3 ABG O2 Saturation ABG Base Excess ABG Hemoglobin Oxyhemoglobin Carboxyhemoglobin Sodium Potassium Chloride Carbon Dioxide BUN Creatinine Glucose POC Glucose 189 H 198 H 261 H Hemoglobin A1c Lactic Acid Calcium Phosphorus Magnesium Direct Bilirubin AST ALT Alkaline Phosphatase Lactate Dehydrogenase Total Protein Albumin Ur Specific [place] Urine Blood Urine WBC (Auto) Vancomycin Trough Crossmatch 02/10/22 02/11/22 02/11/22 23:20 04:00 04:00 WBC 20.8 H RBC Hgb 7.7 L Hct 24.5 L MCV 64 L MCH 20 L RDW 23.5 H Plt Count Seg Neuts % (Manual) Lymphocytes % (Manual) Nucleated RBC % Seg Neutrophils # Man Lymphocytes # (Manual) Percent Retic Fibrinogen ABG pH POC ABG pO2 ABG pO2 ABG HCO3 ABG O2 Saturation ABG Base Excess ABG Hemoglobin Oxyhemoglobin Carboxyhemoglobin Sodium 148 H Potassium 3.3 L Chloride Carbon Dioxide 39 H BUN 27 H Creatinine 0.5 L Glucose 218 H POC Glucose 196 H Hemoglobin A1c Lactic Acid Calcium 8.3 L Phosphorus Magnesium Direct Bilirubin AST ALT Alkaline Phosphatase Lactate Dehydrogenase Total Protein Albumin Ur Specific [place] Urine Blood Urine WBC (Auto) Vancomycin Trough Crossmatch 02/11/22 02/11/22 02/11/22 05:00 05:57 11:15 WBC RBC Hgb Hct MCV MCH RDW Plt Count Seg Neuts % (Manual) Lymphocytes % (Manual) Nucleated RBC % Seg Neutrophils # Man Lymphocytes # (Manual) Percent Retic Fibrinogen ABG pH 7.459 H POC ABG pO2 ABG pO2 99.8 H ABG HCO3 41.4 H ABG O2 Saturation ABG Base Excess 15.9 H ABG Hemoglobin 7.5 L Oxyhemoglobin Carboxyhemoglobin Sodium Potassium Chloride Carbon Dioxide BUN Creatinine Glucose POC Glucose 173 H 204 H Hemoglobin A1c Lactic Acid Calcium Phosphorus Magnesium Direct Bilirubin AST ALT Alkaline Phosphatase Lactate Dehydrogenase Total Protein Albumin Ur Specific [place] Urine Blood Urine WBC (Auto) Vancomycin Trough Crossmatch 02/11/22 02/11/22 02/12/22 17:15 21:21 00:29 WBC RBC Hgb Hct MCV MCH RDW Plt Count Seg Neuts % (Manual) Lymphocytes % (Manual) Nucleated RBC % Seg Neutrophils # Man Lymphocytes # (Manual) Percent Retic Fibrinogen ABG pH POC ABG pO2 ABG pO2 ABG HCO3 ABG O2 Saturation ABG Base Excess ABG Hemoglobin Oxyhemoglobin Carboxyhemoglobin Sodium Potassium Chloride Carbon Dioxide BUN Creatinine Glucose POC Glucose 157 H 183 H 197 H Hemoglobin A1c Lactic Acid Calcium Phosphorus Magnesium Direct Bilirubin AST ALT Alkaline Phosphatase Lactate Dehydrogenase Total Protein Albumin Ur Specific [place] Urine Blood Urine WBC (Auto) Vancomycin Trough Crossmatch 02/12/22 02/12/22 02/12/22 04:17 04:17 05:00 WBC 23.9 H RBC Hgb 7.5 L Hct 24.2 L MCV 64 L MCH 20 L RDW 25.5 H Plt Count Seg Neuts % (Manual) Lymphocytes % (Manual) Nucleated RBC % Seg Neutrophils # Man Lymphocytes # (Manual) Percent Retic Fibrinogen ABG pH 7.467 H POC ABG pO2 ABG pO2 97.9 H ABG HCO3 40.7 H ABG O2 Saturation ABG Base Excess 15.3 H ABG Hemoglobin 7.5 L Oxyhemoglobin Carboxyhemoglobin Sodium 146 H Potassium Chloride Carbon Dioxide 39 H BUN 25 H Creatinine 0.4 L Glucose 135 H POC Glucose Hemoglobin A1c Lactic Acid Calcium Phosphorus Magnesium Direct Bilirubin AST ALT Alkaline Phosphatase Lactate Dehydrogenase Total Protein Albumin Ur Specific [place] Urine Blood Urine WBC (Auto) Vancomycin Trough Crossmatch 02/12/22 02/12/22 02/12/22 05:53 12:31 17:54 WBC RBC Hgb Hct MCV MCH RDW Plt Count Seg Neuts % (Manual) Lymphocytes % (Manual) Nucleated RBC % Seg Neutrophils # Man Lymphocytes # (Manual) Percent Retic Fibrinogen ABG pH POC ABG pO2 ABG pO2 ABG HCO3 ABG O2 Saturation ABG Base Excess ABG Hemoglobin Oxyhemoglobin Carboxyhemoglobin Sodium Potassium Chloride Carbon Dioxide BUN Creatinine Glucose POC Glucose 114 H 124 H 159 H Hemoglobin A1c Lactic Acid Calcium Phosphorus Magnesium Direct Bilirubin AST ALT Alkaline Phosphatase Lactate Dehydrogenase Total Protein Albumin Ur Specific [place] Urine Blood Urine WBC (Auto) Vancomycin Trough Crossmatch 02/12/22 02/13/22 02/13/22 22:09 03:40 04:00 WBC 23.6 H RBC 3.42 L Hgb 6.7 L Hct 21.7 L MCV 64 L MCH 20 L RDW 27.3 H Plt Count Seg Neuts % (Manual) Lymphocytes % (Manual) Nucleated RBC % Seg Neutrophils # Man Lymphocytes # (Manual) Percent Retic Fibrinogen ABG pH 7.465 H POC ABG pO2 ABG pO2 104.3 H ABG HCO3 39.4 H ABG O2 Saturation ABG Base Excess 14.3 H ABG Hemoglobin 6.7 L Oxyhemoglobin Carboxyhemoglobin Sodium Potassium Chloride Carbon Dioxide BUN Creatinine Glucose POC Glucose 160 H Hemoglobin A1c Lactic Acid Calcium Phosphorus Magnesium Direct Bilirubin AST ALT Alkaline Phosphatase Lactate Dehydrogenase Total Protein Albumin Ur Specific [place] Urine Blood Urine WBC (Auto) Vancomycin Trough Crossmatch 02/13/22 02/13/22 02/13/22 04:00 06:05 09:41 WBC RBC Hgb Hct MCV MCH RDW Plt Count Seg Neuts % (Manual) Lymphocytes % (Manual) Nucleated RBC % Seg Neutrophils # Man Lymphocytes # (Manual) Percent Retic Fibrinogen ABG pH POC ABG pO2 ABG pO2 ABG HCO3 ABG O2 Saturation ABG Base Excess ABG Hemoglobin Oxyhemoglobin Carboxyhemoglobin Sodium 146 H Potassium Chloride Carbon Dioxide 38 H BUN 25 H Creatinine 0.4 L Glucose 235 H POC Glucose 283 H Hemoglobin A1c Lactic Acid Calcium 8.0 L Phosphorus Magnesium Direct Bilirubin AST ALT 58 H Alkaline Phosphatase 143 H Lactate Dehydrogenase Total Protein 4.7 L Albumin 2.2 L Ur Specific [place] Urine Blood Urine WBC (Auto) Vancomycin Trough Crossmatch See Detail 02/13/22 02/13/22 02/13/22 11:37 18:30 21:47 WBC RBC Hgb Hct MCV MCH RDW Plt Count Seg Neuts % (Manual) Lymphocytes % (Manual) Nucleated RBC % Seg Neutrophils # Man Lymphocytes # (Manual) Percent Retic Fibrinogen ABG pH POC ABG pO2 ABG pO2 ABG HCO3 ABG O2 Saturation ABG Base Excess ABG Hemoglobin Oxyhemoglobin Carboxyhemoglobin Sodium Potassium Chloride Carbon Dioxide BUN Creatinine Glucose POC Glucose 132 H 187 H 279 H Hemoglobin A1c Lactic Acid Calcium Phosphorus Magnesium Direct Bilirubin AST ALT Alkaline Phosphatase Lactate Dehydrogenase Total Protein Albumin Ur Specific [place] Urine Blood Urine WBC (Auto) Vancomycin Trough Crossmatch 02/14/22 02/14/22 02/14/22 01:07 04:35 04:40 WBC 24.5 H RBC Hgb 9.4 L Hct 28.8 L D MCV 69 L MCH 23 L RDW 30.3 H Plt Count Seg Neuts % (Manual) Lymphocytes % (Manual) Nucleated RBC % Seg Neutrophils # Man Lymphocytes # (Manual) Percent Retic Fibrinogen ABG pH 7.484 H POC ABG pO2 ABG pO2 101.5 H ABG HCO3 35.8 H ABG O2 Saturation ABG Base Excess 11.1 H ABG Hemoglobin 9.4 L Oxyhemoglobin Carboxyhemoglobin Sodium Potassium Chloride Carbon Dioxide BUN Creatinine Glucose POC Glucose 267 H Hemoglobin A1c Lactic Acid Calcium Phosphorus Magnesium Direct Bilirubin AST ALT Alkaline Phosphatase Lactate Dehydrogenase Total Protein Albumin Ur Specific [place] Urine Blood Urine WBC (Auto) Vancomycin Trough Crossmatch 02/14/22 02/14/22 02/14/22 06:16 09:03 11:20 WBC RBC Hgb Hct MCV MCH RDW Plt Count Seg Neuts % (Manual) Lymphocytes % (Manual) Nucleated RBC % Seg Neutrophils # Man Lymphocytes # (Manual) Percent Retic Fibrinogen ABG pH POC ABG pO2 ABG pO2 ABG HCO3 ABG O2 Saturation ABG Base Excess ABG Hemoglobin Oxyhemoglobin Carboxyhemoglobin Sodium Potassium Chloride Carbon Dioxide 39 H BUN 20 H Creatinine 0.4 L Glucose 144 H POC Glucose 183 H 42 L Hemoglobin A1c Lactic Acid Calcium 8.3 L Phosphorus Magnesium Direct Bilirubin AST ALT Alkaline Phosphatase Lactate Dehydrogenase Total Protein Albumin Ur Specific [place] Urine Blood Urine WBC (Auto) Vancomycin Trough Crossmatch 02/14/22 02/14/22 02/14/22 18:07 18:10 18:36 WBC RBC Hgb Hct MCV MCH RDW Plt Count Seg Neuts % (Manual) Lymphocytes % (Manual) Nucleated RBC % Seg Neutrophils # Man Lymphocytes # (Manual) Percent Retic Fibrinogen ABG pH 7.518 H POC ABG pO2 ABG pO2 97.1 H ABG HCO3 38.8 H ABG O2 Saturation ABG Base Excess 13.8 H ABG Hemoglobin Oxyhemoglobin Carboxyhemoglobin Sodium Potassium Chloride Carbon Dioxide BUN Creatinine Glucose POC Glucose 29 L 143 H Hemoglobin A1c Lactic Acid Calcium Phosphorus Magnesium Direct Bilirubin AST ALT Alkaline Phosphatase Lactate Dehydrogenase Total Protein Albumin Ur Specific [place] Urine Blood Urine WBC (Auto) Vancomycin Trough Crossmatch 02/14/22 02/15/22 02/15/22 23:44 03:31 05:23 WBC 20.1 H RBC Hgb 8.4 L Hct 26.6 L MCV 69 L MCH 22 L RDW 31.5 H Plt Count Seg Neuts % (Manual) Lymphocytes % (Manual) Nucleated RBC % Seg Neutrophils # Man Lymphocytes # (Manual) Percent Retic Fibrinogen ABG pH POC ABG pO2 ABG pO2 ABG HCO3 ABG O2 Saturation ABG Base Excess ABG Hemoglobin Oxyhemoglobin Carboxyhemoglobin Sodium Potassium Chloride Carbon Dioxide BUN Creatinine Glucose POC Glucose 229 H 232 H Hemoglobin A1c Lactic Acid Calcium Phosphorus Magnesium Direct Bilirubin AST ALT Alkaline Phosphatase Lactate Dehydrogenase Total Protein Albumin Ur Specific [place] Urine Blood Urine WBC (Auto) Vancomycin Trough Crossmatch 02/15/22 02/15/22 02/15/22 11:32 17:41 23:24 WBC RBC Hgb Hct MCV MCH RDW Plt Count Seg Neuts % (Manual) Lymphocytes % (Manual) Nucleated RBC % Seg Neutrophils # Man Lymphocytes # (Manual) Percent Retic Fibrinogen ABG pH POC ABG pO2 ABG pO2 ABG HCO3 ABG O2 Saturation ABG Base Excess ABG Hemoglobin Oxyhemoglobin Carboxyhemoglobin Sodium Potassium Chloride Carbon Dioxide BUN Creatinine Glucose POC Glucose 160 H 211 H 261 H Hemoglobin A1c Lactic Acid Calcium Phosphorus Magnesium Direct Bilirubin AST ALT Alkaline Phosphatase Lactate Dehydrogenase Total Protein Albumin Ur Specific [place] Urine Blood Urine WBC (Auto) Vancomycin Trough Crossmatch 02/16/22 02/16/22 02/16/22 04:36 04:36 05:11 WBC 17.3 H RBC Hgb 8.1 L Hct 26.6 L MCV 70 L MCH 21 L RDW 30.8 H Plt Count Seg Neuts % (Manual) Lymphocytes % (Manual) Nucleated RBC % Seg Neutrophils # Man Lymphocytes # (Manual) Percent Retic Fibrinogen ABG pH POC ABG pO2 ABG pO2 ABG HCO3 ABG O2 Saturation ABG Base Excess ABG Hemoglobin Oxyhemoglobin Carboxyhemoglobin Sodium Potassium Chloride Carbon Dioxide 34 H BUN 20 H Creatinine 0.4 L Glucose 206 H POC Glucose 198 H Hemoglobin A1c Lactic Acid Calcium 7.7 L Phosphorus Magnesium Direct Bilirubin AST ALT Alkaline Phosphatase Lactate Dehydrogenase Total Protein Albumin Ur Specific [place] Urine Blood Urine WBC (Auto) Vancomycin Trough Crossmatch 02/16/22 11:25 WBC RBC Hgb Hct MCV MCH RDW Plt Count Seg Neuts % (Manual) Lymphocytes % (Manual) Nucleated RBC % Seg Neutrophils # Man Lymphocytes # (Manual) Percent Retic Fibrinogen ABG pH POC ABG pO2 ABG pO2 ABG HCO3 ABG O2 Saturation ABG Base Excess ABG Hemoglobin Oxyhemoglobin Carboxyhemoglobin Sodium Potassium Chloride Carbon Dioxide BUN Creatinine Glucose POC Glucose 130 H Hemoglobin A1c Lactic Acid Calcium Phosphorus Magnesium Direct Bilirubin AST ALT Alkaline Phosphatase Lactate Dehydrogenase Total Protein Albumin Ur Specific [place] Urine Blood Urine WBC (Auto) Vancomycin Trough Crossmatch
[2022-02-16] MEDS ORDERED: ALBUMIN HUMAN 25% (25 GM/100 ML) INJ IV ONE (12:11)
--- NOTE | 2022-02-16 14:33 | Progress Note ---
<RADHA GONZALEZ - Last Filed: 02/16/22 14:44> Assessment and Plan Assessment and plan: This is a 61 year old female with DM, Dementia, HLD, HTN admitted with DKA s/p cardiac arrest on 02/01 Neuro: Acute metabolic encephalopathy, h/o dementia -Neurology consulted, appreciate recommendations -Serouqel bid -Fentanyl gtt -RASS goal 0 to -1 -Reorientation as needed -As needed analgesia Cardiac: s/p PEA cardiac arrest on 02/01, SVT, h/o HLD and HTN -Cardiology consulted, appreciate recommendations -s/p cardiac arrest on 02/01 -Blood pressure monitoring per protocol -s/p Vasopressor support with Levophed -MAP goal greater than 65 -Echocardiogram LVEF 55 to 60% Respiratory: Acute hypoxic respiratory failure, ARDS -[facility] consulted, appreciate recommendations -Intubated on 02/01 with 7.0 OETT at 21 at the lips, extubated 02/14 and reintubated 02/14 -A.m. vent settings: AC TV 350, Rate 12, Peep 6, FiO2 30% -02/04 s/p Bronchoscopy at the bedside by CCM -A.m. ABG and CXR noted -VAP bundle -SPO2 monitoring -Surgery consulted for trach/peg GI: Mod protein venu malnutrition, transaminitis (resolving) -24 hours +584 mL -PPI -NTR consulted for tube feedings -BR: Senokot S -CT abd/pelvis pending : Hypernatremia (resolved) -Monitor intake and output -Renally dose medications -Avoid nephrotoxic medications -s/p bicarbonate drip -Trend BMP ID: Sepsis, UTI, lactic acidosis -Presented with tachycardia, leukocytosis, pyuria on UA developed pancytopenia, hypotension, tachycardia -Infectious disease consulted, appreciate recommendations -s/p antibiotic therapy with rocephin -UA consistent with pyuria, Blood cultures with NGTD -Sputum culture with Klebsiella Pneumoniae -covid pcr (-) -f/u blood culture -Monitor WBC and temperature curve Endo: s/p DKA, h/o DM -Presented with severe metabolic acidosis, blood glucose in 300s -s/p insulin drip -Avoid hypoglycemia -Hemoglobin A1c 11.1 -SSI -Accu-Cheks q. every 6 -Long-acting insulin, titrate as needed Heme: Leukocytosis, BLE ischemia -Hem/onc and vascular surgery consulted, appreciate recommendations -Bilateral lower extremity ultrasound negative for DVT -Bilateral lower extremity arterial duplex shows multifocal arthrosclerotic disease throughout bilateral lower extremities, transition into biphasic and monophasic waveforms bilaterally suggesting hemodynamically significant narrowing of each respective segment, no arterial occlusion or other proximal flow limiting stenosis -Will start plavix post PEG on Monday 02/19 -Trend CBC -s/p 2 unit PRBC -Transfuse hemoglobin less than 7 -SCDs to BLE while in bed The high probability of a clinically significant, sudden or life threatening deterioration of the [multi] system(s) required my full and direct attention, intervention and personal management. The aggregate critical care time was [60] minutes. This time is in addition to time spent performing reported procedures but includes the following: [x] Data Review and interpretation [x] Patient assessment and monitoring of vital signs [x] Documentation [x] Medication orders and management Disposition Plan: icu Total Time Spent with Patient (Minutes): 60 History Interval history: This is a 61-year-old female is a resident of a group home with DM,, dementia (possibly [place] per daughter), hyperlipidemia, and hypertension who presents to the hospital on 01/31 from [facility] for hypoglycemia. In the ED patient was found to be tachycardic, tachypneic and lab work showed hyperkalemia, hyperchloremia, high anion gap metabolic acidosis with leukocytosis and UA showed pyuria. Patient was admitted to the hospitalist service. Hospital course to date: 02/01: patient was transferred to ICU as lab work was consistent with DKA and started on insulin drip. Central line placed for IV access. Patient was given bicarb push and started on a bicarb drip. She was also started on Rocephin due to UTI however antibiotics are broadened to cefepime and vancomycin. 02/02: s/p cardiac arrest on 02/01. Bicarbonate drip discontinued. Pancytopenia noted, anion gap closed and transitioned to SSI and long-acting insulin. Patient was having hypoglycemia this morning which has been corrected now. Started on tube feeding. Potassium and phosphorus will be repleted. Hypernatremia noted and FWF started with tube feedings. COVID-19 PCR pending. Venous Doppler ultrasound pending. Neurology and cardiology consulted. Echocardiogram pending. Patient currently on Levophed and sedated with propofol. Fentanyl added. Given 1 LR bolus this morning for hypotension. 02/03: LR bolus x2, remains on levophed, tachycardia and EKG completed which shows tachycardia. Increase in FiO2, Will culture with next temp spike. Will give 1 gm Calcium Gluconate. 02/04: S/p Bronch this am by CCM at the bedside. Patient still spiking high temp despite broad spectrum IV Abx. Remains on high pressors with worsen neutropenia and thrombocytopenia. Will panculture this am, antifungal culture was also ordered. Continue current empiric IV Abx for now, awaiting sensitivity. Will also consult ID for further eval. Possible Hematology consult for pancytopenia per CCM. Possible family meeting with [facility] this week, case management to arrange. 02/05: Back up on full support on the vent. CXR with worsen bilateral opacities, S/p X1 dose of IV lasix. Patient also received 1units of PRBCs overnight due to anemia, H&H stable this am and no s/s of any active bleeding. Patient remains pancytopenic, still febrile. IV abx changed to Merrem and Vanc per ID, hematology consult pending. ST with episodes of SVT this am, plan for amiodarone gtt per Cardio. Off pressors this am. BP remains boderline, 25% IV Albumin and X1 dose of additional IV lasix gain today per CCM. Continue FWF for hypernatremia. Lantus adjusted due to hypoglycemia. Possible family meeting tomorrow with [facility]. 02/06: Decompensated this am, sudden drop in SPO2 in the 80s, HR in the 50s, and MAP in the 40s. Back on 2 pressors, on 100% FIO2 and 12 of peep. Stat ABG pending, 1amp Bcarb given, stress dose steroids initiated. This an CXR reviewed with worsen opacities from prior. Patient remains on IV abx per ID. Hematology recommendations appreciated. Event discussed with [facility] who agreed with current intervention. Patient's daughter and sister were notified via phone. Current events, patient's diagnosis, overal condition, and poor prognosis were thoroughly discussed. GOC was also addressed with patient's daughter and sister, they voiced that if patient was able to speak for herself she would want all lifesaving measures, including CPR and medications if her heart stop. All questions and concerns were addressed at this time. They verbalized understanding and agreed with current care plan. Patient remains a FULL code status at This time. 84: Responded well to IV lasix and albumin overnight. CXR with some improvement today. IV lasix and albumin gain today per CCM. With increased WOB and tachpnea this am, low dose propofol added for RASS goal of 0 to -2. Wean FIO2 as tolerated for SPO2 goal above 92%. Worsen hyperglycemia this am, most like due to IV steroids, insulin therapy adjusted. Monitor and replace electrolytes as needed. Family meeting today with [facility], patient remains a FULL code status. 8: Tolerating gentle diurese. Patient missed overnight IV lasix/albumin dose, will repeat another dose this morning. Continue to wean Fio2 as tolerated. Rem ains off pressors, VSS. Concern for BLE ischemia probably due to hypoperfusion vs pressor use. Will check BLE arterial doppler to r/o occlusion. Possible Vascular Surgery consult dependent on doppler result. Lantus adjusted for persisting hyperglycemia. Electrolytes repleted, monitor and replace sherine ctrolytes as needed. 86: This am ABG and CXR with some improvement this am. Down to 55% Fio2 this am. Hypotensive overnight required short duration of Levophed gtt, pressor is off this am. Will hold on IV diuretic today. Continue to monitor for now. Electrolytes repleted, monitor and replace electrolytes as needed. Prior history of psych issues, seroquel added BID. BLE doppler pending. 02/10: Remains stable on the vent. Down to 40% Fio2 and peep of 10 this am, SPO2 above 95%, CXR is unchanged. Continue vent wean as tolerated. Remains on IV steroid, will start tapering tomorrow. Per [facility], plan is to optimize patient on the vent for possible trach and PEG. FWF increased for persistent hypernatremia. K and phos repleted. Continue to monitor and replace electrolytes as needed. 02/11: Water flush continued at 300 mL every 4, potassium repleted, remains on vasopressors. No acute events reported overnight. intiate seriod taper 02/12: Patient being weaned down IV fentanyl pushes ordered, Lantus decreased, decreased PEEP and RT placed on pressure support this afternoon. No acute events overnight. 02/13: Patient attempted on PSV again today, steroids continue to be tapered. Tentative extubation tomorrow was supplanted by [facility]. Patient only lasted 3 hours again today. Vascular surgery consult completed and recommended plavix. 02/14: Patient was extubated today to nasal cannula. This afternoon she was started on high flow nasal cannula. No acute events reported overnight. Steroids tapered. Femoral A-line removed. 02/15: No acute events reported overnight. Surgery consulted for trach/PEG.. COVID-[address] abdomen/pelvis pending. Possible trach/PEG placement on 02/18. 02/16: PICC line to be placed today. Given 1 dose of albumin with Lasix. Discontinue CVL. No acute vents reported overnight. Hospitalist Physical - Constitutional Vitals: Temp Pulse Resp BP Pulse Ox 99.2 F 113 H 25 H 124/81 98 02/16/22 11:54 02/16/22 13:15 02/16/22 13:15 02/16/22 13:15 02/16/22 13:15 General appearance: Present: no acute distress - EENT Eyes: Present: PERRL, EOM intact ENT: dentition normal - Neck Neck: Present: normal ROM - Respiratory Respiratory effort: normal Respiratory: bilateral: diminished - Cardiovascular Rhythm: regular Heart Sounds: Present: S1 & S2. Absent: systolic murmur, diastolic murmur - Extremities Extremities: no ischemia, pulses intact, pulses symmetrical Extremity abnormal: edema Peripheral Pulses: within normal limits - Abdominal General gastrointestinal: soft, non-tender, non-distended, normal bowel sounds - Integumentary Integumentary: Present: warm, dry - Neurologic Neurologic: other (focus, intact cough/gag) - Allied Health Allied health notes reviewed: nursing, RT HEART Score - HEART Score Troponin: Troponin T < 0.010 ng/mL (0.00-0.029) 02/03/22 16:15 Results - Labs CBC & Chem 7: 02/16/22 04:36 02/16/22 04:36 Labs: Laboratory Last Values WBC 17.3 K/mm3 (4.5-11.0) H 02/16/22 04:36 RBC 3.80 M/mm3 (3.65-5.03) 02/16/22 04:36 Hgb 8.1 gm/dl (10.1-14.3) L 02/16/22 04:36 Hct 26.6 % (30.3-42.9) L 02/16/22 04:36 MCV 70 fl (79-97) L 02/16/22 04:36 MCH 21 pg (28-32) L 02/16/22 04:36 MCHC 31 % (30-34) 02/16/22 04:36 RDW 30.8 % (13.2-15.2) H 02/16/22 04:36 Plt Count 407 K/mm3 (140-440) 02/16/22 04:36 Lymph % (Auto) Scrubber System Attendant 02/02/22 04:00 Add Manual Diff Complete 02/03/22 04:00 Total Counted 50 02/03/22 04:00 Seg Neutrophils % Scrubber System Attendant 02/02/22 04:00 Seg Neuts % (Manual) 76.0 % (40.0-70.0) H 02/03/22 04:00 Band Neutrophils % 18.0 % 02/03/22 04:00 Lymphocytes % (Manual) 2.0 % (13.4-35.0) L 02/03/22 04:00 Reactive Lymphs % (Man) 0 % 02/03/22 04:00 Monocytes % (Manual) 4.0 % (0.0-7.3) 02/03/22 04:00 Eosinophils % (Manual) 0 % (0.0-4.3) 02/03/22 04:00 Basophils % (Manual) 0 % (0.0-1.8) 02/03/22 04:00 Metamyelocytes % 0 % 02/03/22 04:00 Myelocytes % 0 % 02/03/22 04:00 Promyelocytes % 0 % 02/03/22 04:00 Blast Cells % 0 % 02/03/22 04:00 Nucleated RBC % 4.0 % (0.0-0.9) H 02/03/22 04:00 Seg Neutrophils # Man 2.8 K/mm3 (1.8-7.7) 02/03/22 04:00 Band Neutrophils # 0.7 K/mm3 02/03/22 04:00 Lymphocytes # (Manual) 0.1 K/mm3 (1.2-5.4) L 02/03/22 04:00 Abs React Lymphs (Man) 0.0 K/mm3 02/03/22 04:00 Monocytes # (Manual) 0.1 K/mm3 (0.0-0.8) 02/03/22 04:00 Eosinophils # (Manual) 0.0 K/mm3 (0.0-0.4) 02/03/22 04:00 Basophils # (Manual) 0.0 K/mm3 (0.0-0.1) 02/03/22 04:00 Metamyelocytes # 0.0 K/mm3 02/03/22 04:00 Myelocytes # 0.0 K/mm3 02/03/22 04:00 Promyelocytes # 0.0 K/mm3 02/03/22 04:00 Blast Cells # 0.0 K/mm3 02/03/22 04:00 WBC Morphology Not Reportable 02/03/22 04:00 Hypersegmented Neuts Not Reportable 02/03/22 04:00 Hyposegmented Neuts Not Reportable 02/03/22 04:00 Hypogranular Neuts Not Reportable 02/03/22 04:00 Smudge Cells Not Reportable 02/03/22 04:00 Toxic Granulation Not Reportable 02/03/22 04:00 Toxic Vacuolation Not Reportable 02/03/22 04:00 Dohle Bodies Few 02/03/22 04:00 Pelger-Huet Anomaly Not Reportable 02/03/22 04:00 Sung Rods Not Reportable 02/03/22 04:00 Platelet Estimate Consistent w auto 02/03/22 04:00 Clumped Platelets Not Reportable 02/03/22 04:00 Plt Clumps, EDTA Not Reportable 02/03/22 04:00 Large Platelets Not Reportable 02/03/22 04:00 Giant Platelets Not Reportable 02/03/22 04:00 Platelet Satelliting Not Reportable 02/03/22 04:00 Plt Morphology Comment Not Reportable 02/03/22 04:00 RBC Morphology Not Reportable 02/03/22 04:00 Dimorphic RBCs Not Reportable 02/03/22 04:00 Polychromasia Not Reportable 02/03/22 04:00 Hypochromasia 3+ 02/03/22 04:00 Poikilocytosis 2+ 02/03/22 04:00 Anisocytosis 1+ 02/03/22 04:00 Microcytosis 2+ 02/03/22 04:00 Macrocytosis Not Reportable 02/03/22 04:00 Spherocytes Not Reportable 02/03/22 04:00 Pappenheimer Bodies Not Reportable 02/03/22 04:00 Sickle Cells Not Reportable 02/03/22 04:00 Target Cells 1+ 02/03/22 04:00 Tear Drop Cells Few 02/03/22 04:00 Ovalocytes Few 02/03/22 04:00 Helmet Cells Not Reportable 02/03/22 04:00 [place] Bodies Not Reportable 02/03/22 04:00 [place] Rings Not Reportable 02/03/22 04:00 Lesly Cells 1+ 02/03/22 04:00 Bite Cells Not Reportable 02/03/22 04:00 Crenated Cell Not Reportable 02/03/22 04:00 Elliptocytes Few 02/03/22 04:00 Acanthocytes (Spur) Not Reportable 02/03/22 04:00 Rouleaux Not Reportable 02/03/22 04:00 Hemoglobin C Crystals Not Reportable 02/03/22 04:00 Schistocytes Rare 02/03/22 04:00 Malaria parasites Not Reportable 02/03/22 04:00 Percent Retic 0.65 % (0.78-2.58) L 02/08/22 03:55 Sven Bodies Not Reportable 02/03/22 04:00 Hem Pathologist Commnt No 02/03/22 04:00 PT 14.5 Sec. (12.2-14.9) 02/16/22 04:36 INR 1.02 (0.87-1.13) 02/16/22 04:36 APTT 29.5 Sec. (24.2-36.6) 02/16/22 04:36 Fibrinogen 795 mg/dl (211-480) H 02/05/22 08:48 ABG pH 7.518 pH Units (7.350-7.450) H 02/14/22 18:10 POC ABG pCO2 37.3 mmHg (32.0-48.0) 02/02/22 04:49 ABG pCO2 48.9 mm Hg 02/14/22 18:10 POC ABG pO2 79.9 mmHg (83-108) L 02/02/22 04:49 ABG pO2 97.1 mm Hg (80.0-90.0) H 02/14/22 18:10 POC ABG HCO3 30.3 02/02/22 04:49 ABG HCO3 38.8 mmol/L (20.0-26.0) H 02/14/22 18:10 ABG O2 Saturation 97.9 % (95.0-99.0) 02/14/22 18:10 ABG O2 Content 20.8 (0.0-44) 02/14/22 18:10 POC ABG Base Excess 7.1 02/02/22 04:49 ABG Base Excess 13.8 mmol/L (-2.0-3.0) H 02/14/22 18:10 ABG Hemoglobin 12.6 gm/dl (12.0-16.0) 02/14/22 18:10 ABG Oxyhemoglobin 96.0 (94-98) 02/02/22 04:49 ABG Carboxyhemoglobin 1.9 % (0.0-5.0) 02/14/22 18:10 ABG Methemoglobin 0.4 % (0.0-1.5) 02/14/22 18:10 ABG Sodium Not Reportable 02/02/22 04:49 ABG Potassium Not Reportable 02/02/22 04:49 ABG Chloride Not Reportable 02/02/22 04:49 ABG Glucose Not Reportable 02/02/22 04:49 Oxyhemoglobin 95.6 % (95.0-99.0) 02/14/22 18:10 Carboxyhemoglobin 0.2 (0.5-1.5) L 02/02/22 04:49 FiO2 40 % 02/14/22 18:10 FiO2 % 60.0 02/02/22 04:49 Sodium 143 mmol/L (137-145) 02/16/22 04:36 Potassium 3.9 mmol/L (3.6-5.0) 02/16/22 04:36 Chloride 101.3 mmol/L (98-107) 02/16/22 04:36 Carbon Dioxide 34 mmol/L (22-30) H 02/16/22 04:36 Anion Gap 12 mmol/L 02/16/22 04:36 BUN 20 mg/dL (7-17) H 02/16/22 04:36 Creatinine 0.4 mg/dL (0.6-1.2) L 02/16/22 04:36 Estimated GFR > 60 ml/min 02/16/22 04:36 BUN/Creatinine Ratio 50 % 02/16/22 04:36 Glucose 206 mg/dL (65-100) H 02/16/22 04:36 POC Glucose 130 mg/dL (70-105) H 02/16/22 11:25 Hemoglobin A1c 11.1 % (4-6) H 02/01/22 12:54 Lactic Acid 2.50 mmol/L (0.7-2.0) H* 02/06/22 11:50 Calcium 7.7 mg/dL (8.4-10.2) L 02/16/22 04:36 Phosphorus 3.90 mg/dL (2.5-4.5) 02/15/22 09:12 Magnesium 2.20 mg/dL (1.7-2.3) 02/15/22 09:12 Total Bilirubin 0.30 mg/dL (0.1-1.2) 02/13/22 04:00 Direct Bilirubin < 0.2 mg/dL (0-0.2) 02/13/22 04:00 Indirect Bilirubin 0.1 mg/dL 02/13/22 04:00 AST 30 units/L (5-40) 02/13/22 04:00 ALT 58 units/L (7-56) H 02/13/22 04:00 Alkaline Phosphatase 143 units/L (35-129) H 02/13/22 04:00 Lactate Dehydrogenase 879 units/L (91-180) H 02/05/22 04:40 Troponin T < 0.010 ng/mL (0.00-0.029) 02/03/22 16:15 Total Protein 4.7 g/dL (6.3-8.2) L 02/13/22 04:00 Albumin 2.2 g/dL (3.9-5) L 02/13/22 04:00 Albumin/Globulin Ratio 0.9 % 02/13/22 04:00 Arterial Blood Glucose Not Reportable 02/02/22 04:49 Urine Color Yellow (Yellow) 02/04/22 09:15 Urine Turbidity Cloudy (Clear) 02/04/22 09:15 Urine pH 6.0 (5.0-7.0) 02/04/22 09:15 Ur Specific [place] 1.025 (1.003-1.030) 02/04/22 09:15 Urine Protein >500 mg/dL (Negative) 02/04/22 09:15 Urine Glucose (UA) Negative mg/dL (Negative) 02/04/22 09:15 Urine Ketones Negative mg/dL (Negative) 02/04/22 09:15 Urine Blood Large (Negative) A 02/04/22 09:15 Urine Nitrite Negative (Negative) 02/04/22 09:15 Ur Reducing Substances Not Reportable 01/31/22 22:49 Urine Bilirubin Negative (Negative) 02/04/22 09:15 Urine Ictotest Not Reportable 01/31/22 22:49 Urine Urobilinogen < 2.0 mg/dL (<2.0) 02/04/22 09:15 Ur Leukocyte Esterase Negative (Negative) 02/04/22 09:15 Urine WBC (Auto) 12.0 /HPF (0.0-6.0) H 02/04/22 09:15 Urine RBC (Auto) 107.0 /HPF (0.0-6.0) 02/04/22 09:15 U Epithel Cells (Auto) 1.0 /HPF (0-13.0) 02/04/22 09:15 Urine Bacteria (Auto) 1+ /HPF (Negative) 02/04/22 09:15 Urine Mucus Few /HPF 02/04/22 09:15 Urine Yeast (Budding) 2+ /HPF 02/04/22 09:15 Vancomycin Trough 28.6 ug/mL (5.0-20.0) H 02/05/22 Unknown Coronavirus (PCR) Negative (Negative) 02/02/22 10:44 SARS-CoV-2 (PCR) Negative (Negative) 02/15/22 09:39 HIV 1&2 Antibody Rapid Non react (Non React) 02/04/22 14:37 HIV P24 Antigen Non react (Non React) 02/04/22 14:37 Blood Type A POSITIVE 02/13/22 09:41 Antibody Screen Negative 02/13/22 09:41 Crossmatch See Detail 02/13/22 09:41 Gastelum/IV: Voiding Method External Female Catheter Active Medications - Current Medications Current Medications: Generic Name Dose Route Start Last Admin Trade Name Freq PRN Reason Stop Dose Admin Acetaminophen 650 mg 02/01/22 00:57 02/04/22 11:58 Acetaminophen 325 Mg Tab PO 650 mg Q4H PRN Administration Pain MILD(1-3)/Fever >100.5/ROSADO Albuterol 2.5 mg 02/01/22 00:57 Albuterol 2.5 Mg/3 Ml Nebu IH Q3HRT PRN Shortness Of Breath Lipase/Protease/Amylase 1 each 02/02/22 08:08 Lipase 10,500/Protease 25,000/Amylase 43,750 (Units) Dr Avelar FEEDTUBE PRN PRN For Clogged Feeding Tube Atorvastatin Calcium 20 mg 02/03/22 22:00 02/15/22 22:09 Atorvastatin 20 Mg Tab FEEDTUBE 20 mg QHS JAMIL Administration Clopidogrel Bisulfate 75 mg 02/19/22 10:00 Clopidogrel 75 Mg Tab FEEDTUBE QDAY JAMIL Dextrose 50 ml 02/02/22 08:00 02/14/22 18:10 Dextrose 50% In Water (25gm) 50 Ml Syringe IV 50 ml Q30MIN PRN Administration Hypoglycemia Protocol Famotidine 20 mg 02/04/22 10:00 02/16/22 09:48 Famotidine 20 Mg Tab FEEDTUBE 20 mg BID JAMIL Administration Fentanyl 50 mcg 02/02/22 09:45 02/12/22 20:00 Fentanyl 100 Mcg/2 Ml Inj IV 50 mcg Q10MIN PRN Administration ANALGESIA Fentanyl 50 mcg 02/12/22 10:11 02/12/22 17:35 Fentanyl 100 Mcg/2 Ml Inj IV 50 mcg Q2H PRN Administration VENT SYNCHRONY/AGITATION Hydrophilic Ointment 1 applic 02/01/22 18:52 Lip Therapy Vaseline TP Q2HR PRN Dry Lips NORepinephrine/NS 8 MG-250 ML 8 mg in 250 mls @ 3.75 mls/hr 02/01/22 20:00 02/07/22 19:18 Norepinephrine/Ns 8 Mg-250 Ml (Double Conc) IV 0 mcg/min TITRATE JAMIL 0 mls/hr Titration Protocol 2 MCG/MIN Propofol 1,000 mg in 100 mls @ 1.429 mls/hr 02/01/22 19:17 02/08/22 16:30 Diprivan 10 Mg/Ml IV 0 mcg/kg/min TITR JAMIL 0 mls/hr Titration Protocol 5 MCG/KG/MIN Fentanyl Citrate 2,000 mcg in 100 mls @ 2.381 mls/hr 02/02/22 10:00 02/15/22 17:41 Fentanyl Drip Premix IV 1 mcg/kg/hr TITR JAMIL 2.381 mls/hr Administration Protocol 1 MCG/KG/HR Phenylephrine HCl 100 mg/ 100 mls @ 3 mls/hr 02/03/22 14:15 02/07/22 19:18 Sodium Chloride IV 0 mcg/min TITR JAMIL 0 mls/hr Titration Protocol 50 MCG/MIN Sodium Chloride 500 mls @ 5 mls/hr 02/04/22 03:00 02/08/22 05:21 Nacl 0.9% 500 Ml IV 5 mls/hr DIRECT JAMIL Administration Vasopressin 20 unit/ Sodium 101 mls @ 9.09 mls/hr 02/04/22 09:15 02/07/22 19:18 Chloride IV 0 units/min TITR JAMIL 0 mls/hr Titration Protocol 0.03 UNITS/MIN Insulin Glargine 20 units 02/12/22 22:00 02/15/22 22:08 Insulin Glargine 100 Units/Ml SUB-Q 20 units QHS JAMIL Administration Insulin Human Regular 0 units 02/02/22 18:00 02/16/22 11:42 Insulin Regular, Human 100 Units/1 Ml SUB-Q Not Given Q6H [facility] Protocol Multi-Ingred Cream/Lotion/Oil/Oint 1 applic 02/01/22 18:52 Mineral Oil/Petrolatum, White Ophth Oint 3.5 Gm OU Q4HR PRN Dry Eye(s) Nitroglycerin 0.5 inch 02/11/22 14:00 02/16/22 13:06 Nitroglycerin 2% Oint 1 Gm TP 0.5 inch BIDNTG JAMIL Administration Protocol Ondansetron HCl 4 mg 02/01/22 00:57 Ondansetron 4 Mg/2 Ml Inj IV Q8H PRN Nausea And Vomiting Prednisone 50 mg 02/16/22 10:00 02/16/22 09:48 Prednisone 50 Mg Tab FEEDTUBE 02/19/22 09:59 50 mg QDAY JAMIL Administration Prednisone 40 mg 02/20/22 10:00 Prednisone 20 Mg Tab FEEDTUBE 02/23/22 09:59 QDAY JAMIL Prednisone 30 mg 02/24/22 10:00 Prednisone 20 Mg Tab FEEDTUBE 02/27/22 09:59 QDAY JAMIL Quetiapine Fumarate 50 mg 02/09/22 10:00 02/16/22 09:48 Quetiapine 25 Mg Tab PO 50 mg BID JAMIL Administration Senna/Docusate Sodium 2 tab 02/07/22 10:00 02/16/22 09:08 Sennosides/Docusate Sodium 8.6/50 Mg Tab PO Not Given Q12H JAMIL Simple Syrup 15 ml 02/02/22 08:08 Simple Syrup 15 Ml FEEDTUBE PRN PRN Hypoglycemia Simple Syrup 30 ml 02/02/22 08:08 Simple Syrup 15 Ml FEEDTUBE PRN PRN Hypoglycemia Sodium Bicarbonate 325 mg 02/02/22 08:08 Sodium Bicarbonate 325 Mg Tab FEEDTUBE PRN PRN For Clogged Feeding Tube Sodium Chloride 10 ml 02/01/22 10:00 02/16/22 09:48 Sodium Chloride 0.9% 10 Ml Flush Syringe IV 10 ml BID JAMIL Administration Sodium Chloride 10 ml 02/01/22 00:57 02/09/22 05:59 Sodium Chloride 0.9% 10 Ml Flush Syringe IV 10 ml PRN PRN Administration LINE FLUSH Nutrition/Malnutrition Assess - Dietary Evaluation Nutrition/Malnutrition Findings: Nutrition Notes Start: 02/01/22 17:50 Freq: Status: Active Protocol: Document 02/13/22 10:51 JACQUELINE (Rec: 02/13/22 11:11 JACQUELINE [id number]) Nutrition Notes Initial or Follow up Assessment Current Diagnosis Diabetes,Sepsis,Respiratory Failure Other Pertinent Diagnosis s/p DKA, s/p PEA Arrest, Pneumonia, Pyuria, Pancytopenia, UTI, ... Current Diet TF-Glucerna 1.2 Venu @ 55 ml/hr (since L 02/04). Labs/Tests 02/13: Na 146, CO2 38, BUN 25, Crea 0.4, Glu 235, Ca 8.0. Pertinent Medications 02/13: Lantus 20U, Humulin 6U, others nutritionally unremarkable. Height 5 ft 4 in Weight 48.8 kg Reagan Body Weight (kg) 54.54 BMI 18.4 Weight change and time frame 2.3 Kg body weight gain reported in 1 week. Weight Status Underweight Subjective/Other Information RD consult for TF tolerance/ continuation. TF continues as prescribed, and well tolerated, according to RN notes. Pt remains on Mechanical Ventilation, O2 saturation @ 100%, according to Physical Assessment History notes. Pt remains incontinent, according to Physical Assessment History notes. Plans for extubation on 08 am, according to Progress notes. Percent of energy/protein needs met: Prescribed TF-Glucerna 1.2 Venu @ 55 ml/hr provides for energy/protein needs (1584 Kcal/79 g) during LOS, 97% Kcal; 100% AA. Burn Absent Trauma Absent GI Symptoms None Difficulty In Swallowing Food Allergy No Skin Integrity/Comment Unspecified area of concern. Current % PO Other Minimum of two criteria No Fluid Accumulation N/A Reduced Lap Welder Strength N/A (non-severe) Protein-Calorie Malnutrition N\A #1 Nutrition Diagnosis Inadequate oral intake Diagnosis Progress(for reassessment Continues documentation) Is patient on ventilator? Yes Is Patient Ambulatory and/or Out of Bed No REE-([facility]-confined to bed) 1262.676 Kcal/Kg value to use for calculation 34 Approximate Energy Requirements Using 1659 kcal/Kg Calculation Used for Recommendations Kcal/kg Additional Notes Protein: 1.2-2 g/Kg ABW; 56-93 g/day. Fluids: 1 ml/Kcal, or as per MD. Nutrition Intervention Nutrition Support: Continue TF-Glucerna 1.2 Venu @ 55 ml/hr. Flush: 250 ml water Q 4 hr while hypernatremia persists, resume to 100 ml when Na is WNL. Kcal 1,584 Protein (gm) 79 Carbohydrates (gm) 151 Fat (gm) 79 Fluid (mL) 1,063 Fiber (gm) 21 % RDI: 97% Kcal; 100% AA. Goal #1 Provide at least 75% of energy /protein needs through Enteral Feeding during LOS. Follow-Up By: 02/20/22 Additional Comments Continue monitoring TF tolerance, Mechanical Ventilation, Hypernatremia, and BM. <ABDELRAHMAN MCMAHAN - Last Filed: 02/25/22 11:31> History Interval history: I saw and evaluated the patient. I agree with the findings and the plan of care as documented in the Nurse Practitioner's~note, with the following corrections and additions. Hospitalist Physical - Constitutional Vitals: Temp Pulse Resp BP Pulse Ox 100.5 F H 115 H 27 H 101/70 100 02/22/22 16:00 02/22/22 18:00 02/22/22 18:00 02/22/22 18:00 02/22/22 18:00 HEART Score - HEART Score Troponin: Troponin T < 0.010 ng/mL (0.00-0.029) 02/03/22 16:15 Results - Labs CBC & Chem 7: 02/22/22 04:00 02/22/22 04:00 Labs: Laboratory Last Values WBC 15.0 K/mm3 (4.5-11.0) H 02/22/22 04:00 RBC 3.62 M/mm3 (3.65-5.03) L 02/22/22 04:00 Hgb 7.7 gm/dl (10.1-14.3) L 02/22/22 04:00 Hct 24.8 % (30.3-42.9) L 02/22/22 04:00 MCV 68 fl (79-97) L 02/22/22 04:00 MCH 21 pg (28-32) L 02/22/22 04:00 MCHC 31 % (30-34) 02/22/22 04:00 RDW 29.9 % (13.2-15.2) H 02/22/22 04:00 Plt Count 442 K/mm3 (140-440) H 02/22/22 04:00 Lymph % (Auto) Scrubber System Attendant 02/02/22 04:00 Add Manual Diff Complete 02/03/22 04:00 Total Counted 50 02/03/22 04:00 Seg Neutrophils % Scrubber System Attendant 02/02/22 04:00 Seg Neuts % (Manual) 76.0 % (40.0-70.0) H 02/03/22 04:00 Band Neutrophils % 18.0 % 02/03/22 04:00 Lymphocytes % (Manual) 2.0 % (13.4-35.0) L 02/03/22 04:00 Reactive Lymphs % (Man) 0 % 02/03/22 04:00 Monocytes % (Manual) 4.0 % (0.0-7.3) 02/03/22 04:00 Eosinophils % (Manual) 0 % (0.0-4.3) 02/03/22 04:00 Basophils % (Manual) 0 % (0.0-1.8) 02/03/22 04:00 Metamyelocytes % 0 % 02/03/22 04:00 Myelocytes % 0 % 02/03/22 04:00 Promyelocytes % 0 % 02/03/22 04:00 Blast Cells % 0 % 02/03/22 04:00 Nucleated RBC % 4.0 % (0.0-0.9) H 02/03/22 04:00 Seg Neutrophils # Man 2.8 K/mm3 (1.8-7.7) 02/03/22 04:00 Band Neutrophils # 0.7 K/mm3 02/03/22 04:00 Lymphocytes # (Manual) 0.1 K/mm3 (1.2-5.4) L 02/03/22 04:00 Abs React Lymphs (Man) 0.0 K/mm3 02/03/22 04:00 Monocytes # (Manual) 0.1 K/mm3 (0.0-0.8) 02/03/22 04:00 Eosinophils # (Manual) 0.0 K/mm3 (0.0-0.4) 02/03/22 04:00 Basophils # (Manual) 0.0 K/mm3 (0.0-0.1) 02/03/22 04:00 Metamyelocytes # 0.0 K/mm3 02/03/22 04:00 Myelocytes # 0.0 K/mm3 02/03/22 04:00 Promyelocytes # 0.0 K/mm3 02/03/22 04:00 Blast Cells # 0.0 K/mm3 02/03/22 04:00 WBC Morphology Not Reportable 02/03/22 04:00 Hypersegmented Neuts Not Reportable 02/03/22 04:00 Hyposegmented Neuts Not Reportable 02/03/22 04:00 Hypogranular Neuts Not Reportable 02/03/22 04:00 Smudge Cells Not Reportable 02/03/22 04:00 Toxic Granulation Not Reportable 02/03/22 04:00 Toxic Vacuolation Not Reportable 02/03/22 04:00 Dohle Bodies Few 02/03/22 04:00 Pelger-Huet Anomaly Not Reportable 02/03/22 04:00 Sung Rods Not Reportable 02/03/22 04:00 Platelet Estimate Consistent w auto 02/03/22 04:00 Clumped Platelets Not Reportable 02/03/22 04:00 Plt Clumps, EDTA Not Reportable 02/03/22 04:00 Large Platelets Not Reportable 02/03/22 04:00 Giant Platelets Not Reportable 02/03/22 04:00 Platelet Satelliting Not Reportable 02/03/22 04:00 Plt Morphology Comment Not Reportable 02/03/22 04:00 RBC Morphology Not Reportable 02/03/22 04:00 Dimorphic RBCs Not Reportable 02/03/22 04:00 Polychromasia Not Reportable 02/03/22 04:00 Hypochromasia 3+ 02/03/22 04:00 Poikilocytosis 2+ 02/03/22 04:00 Anisocytosis 1+ 02/03/22 04:00 Microcytosis 2+ 02/03/22 04:00 Macrocytosis Not Reportable 02/03/22 04:00 Spherocytes Not Reportable 02/03/22 04:00 Pappenheimer Bodies Not Reportable 02/03/22 04:00 Sickle Cells Not Reportable 02/03/22 04:00 Target Cells 1+ 02/03/22 04:00 Tear Drop Cells Few 02/03/22 04:00 Ovalocytes Few 02/03/22 04:00 Helmet Cells Not Reportable 02/03/22 04:00 [place] Bodies Not Reportable 02/03/22 04:00 [place] Rings Not Reportable 02/03/22 04:00 Lesly Cells 1+ 02/03/22 04:00 Bite Cells Not Reportable 02/03/22 04:00 Crenated Cell Not Reportable 02/03/22 04:00 Elliptocytes Few 02/03/22 04:00 Acanthocytes (Spur) Not Reportable 02/03/22 04:00 Rouleaux Not Reportable 02/03/22 04:00 Hemoglobin C Crystals Not Reportable 02/03/22 04:00 Schistocytes Rare 02/03/22 04:00 Malaria parasites Not Reportable 02/03/22 04:00 Percent Retic 0.65 % (0.78-2.58) L 02/08/22 03:55 Sven Bodies Not Reportable 02/03/22 04:00 Hem Pathologist Commnt No 02/03/22 04:00 PT 13.7 Sec. (12.2-14.9) 02/18/22 04:00 INR 0.95 (0.87-1.13) 02/18/22 04:00 APTT 29.5 Sec. (24.2-36.6) 02/16/22 04:36 Fibrinogen 795 mg/dl (211-480) H 02/05/22 08:48 ABG pH 7.463 pH Units (7.350-7.450) H 02/17/22 05:06 POC ABG pCO2 37.3 mmHg (32.0-48.0) 02/02/22 04:49 ABG pCO2 46.8 mm Hg 02/17/22 05:06 POC ABG pO2 79.9 mmHg (83-108) L 02/02/22 04:49 ABG pO2 113.6 mm Hg (80.0-90.0) H 02/17/22 05:06 POC ABG HCO3 30.3 02/02/22 04:49 ABG HCO3 32.8 mmol/L (20.0-26.0) H 02/17/22 05:06 ABG O2 Saturation 98.2 % (95.0-99.0) 02/17/22 05:06 ABG O2 Content 11.0 (0.0-44) 02/17/22 05:06 POC ABG Base Excess 7.1 02/02/22 04:49 ABG Base Excess 8.1 mmol/L (-2.0-3.0) H 02/17/22 05:06 ABG Hemoglobin 8.0 gm/dl (12.0-16.0) L 02/17/22 05:06 ABG Oxyhemoglobin 96.0 (94-98) 02/02/22 04:49 ABG Carboxyhemoglobin 1.7 % (0.0-5.0) 02/17/22 05:06 ABG Methemoglobin 0.5 % (0.0-1.5) 02/17/22 05:06 ABG Sodium Not Reportable 02/02/22 04:49 ABG Potassium Not Reportable 02/02/22 04:49 ABG Chloride Not Reportable 02/02/22 04:49 ABG Glucose Not Reportable 02/02/22 04:49 Oxyhemoglobin 96.0 % (95.0-99.0) 02/17/22 05:06 Carboxyhemoglobin 0.2 (0.5-1.5) L 02/02/22 04:49 FiO2 30 % 02/17/22 05:06 FiO2 % 60.0 02/02/22 04:49 Sodium 143 mmol/L (137-145) 02/22/22 04:00 Potassium 3.7 mmol/L (3.6-5.0) 02/22/22 04:00 Chloride 108.7 mmol/L (98-107) H 02/22/22 04:00 Carbon Dioxide 26 mmol/L (22-30) 02/22/22 04:00 Anion Gap 12 mmol/L 02/22/22 04:00 BUN 10 mg/dL (7-17) 02/22/22 04:00 Creatinine 0.4 mg/dL (0.6-1.2) L 02/22/22 04:00 Estimated GFR > 60 ml/min 02/22/22 04:00 BUN/Creatinine Ratio 25 % 02/22/22 04:00 Glucose 49 mg/dL (65-100) L 02/22/22 04:00 POC Glucose 173 mg/dL (70-105) H 02/22/22 18:19 Hemoglobin A1c 11.1 % (4-6) H 02/01/22 12:54 Lactic Acid 2.50 mmol/L (0.7-2.0) H* 02/06/22 11:50 Calcium 8.7 mg/dL (8.4-10.2) 02/22/22 04:00 Phosphorus 2.90 mg/dL (2.5-4.5) 02/22/22 11:35 Magnesium 1.70 mg/dL (1.7-2.3) 02/22/22 11:35 Total Bilirubin 0.50 mg/dL (0.1-1.2) 02/17/22 05:00 Direct Bilirubin < 0.2 mg/dL (0-0.2) 02/13/22 04:00 Indirect Bilirubin 0.1 mg/dL 02/13/22 04:00 AST 38 units/L (5-40) 02/17/22 05:00 ALT 28 units/L (7-56) 02/17/22 05:00 Alkaline Phosphatase 102 units/L (35-129) 02/17/22 05:00 Lactate Dehydrogenase 879 units/L (91-180) H 02/05/22 04:40 Troponin T < 0.010 ng/mL (0.00-0.029) 02/03/22 16:15 Total Protein 5.4 g/dL (6.3-8.2) L 02/17/22 05:00 Albumin 2.5 g/dL (3.9-5) L 02/17/22 05:00 Albumin/Globulin Ratio 0.9 % 02/17/22 05:00 Arterial Blood Glucose Not Reportable 02/02/22 04:49 Urine Color Straw (Yellow) 02/19/22 18:15 Urine Turbidity Clear (Clear) 02/19/22 18:15 Urine pH 8.0 (5.0-7.0) H 02/19/22 18:15 Ur Specific [place] 1.000 (1.003-1.030) L 02/19/22 18:15 Urine Protein 30 mg/dl mg/dL (Negative) 02/19/22 18:15 Urine Glucose (UA) Negative mg/dL (Negative) 02/19/22 18:15 Urine Ketones 5 mg/dL (Negative) 02/19/22 18:15 Urine Blood 1+ (Negative) 02/19/22 18:15 Urine Nitrite Negative (Negative) 02/19/22 18:15 Ur Reducing Substances Not Reportable 02/19/22 18:15 Urine Bilirubin Negative (Negative) 02/19/22 18:15 Urine Ictotest Not Reportable 02/19/22 18:15 Urine Urobilinogen Small mg/dL (<2.0) 02/19/22 18:15 Ur Leukocyte Esterase Negative (Negative) 02/19/22 18:15 Urine WBC (Auto) 2.0 /HPF (0.0-6.0) 02/19/22 18:15 Urine RBC (Auto) 3.0 /HPF (0.0-6.0) 02/19/22 18:15 U Epithel Cells (Auto) 1.0 /HPF (0-13.0) 02/04/22 09:15 Urine Bacteria (Auto) 1+ /HPF (Negative) 02/19/22 18:15 Urine Mucus Few /HPF 02/04/22 09:15 Urine Yeast (Budding) 2+ /HPF 02/04/22 09:15 Vancomycin Trough 28.6 ug/mL (5.0-20.0) H 02/05/22 Unknown Coronavirus (PCR) Negative (Negative) 02/02/22 10:44 SARS-CoV-2 (PCR) Negative (Negative) 02/15/22 09:39 HIV 1&2 Antibody Rapid Non react (Non React) 02/04/22 14:37 HIV P24 Antigen Non react (Non React) 02/04/22 14:37 Blood Type A POSITIVE 02/13/22 09:41 Antibody Screen Negative 02/13/22 09:41 Crossmatch See Detail 02/13/22 09:41 Microbiology: Microbiology 02/19/22 14:51 Peripheral/Venous Blood Culture - Final NO GROWTH AFTER 5 DAYS 02/19/22 14:51 Peripheral/Venous Blood Culture - Final NO GROWTH AFTER 5 DAYS 02/19/22 18:43 Tracheal Aspirate Sputum Culture - Final Gastelum/IV: Voiding Method External Female Catheter Nutrition/Malnutrition Assess - Dietary Evaluation Nutrition/Malnutrition Findings: Nutrition Notes Start: 02/01/22 17:50 Freq: Status: Discharge Protocol: Document 02/19/22 14:47 JACQUELINE (Rec: 02/19/22 15:20 JACQUELINE [id number]) Nutrition Notes Need for Assessment generated from: Low BMI Initial or Follow up Reassessment Current Diagnosis Diabetes,Sepsis,Respiratory Failure Other Pertinent Diagnosis s/p DKA, s/p PEA Arrest, Pneumonia, Pyuria, Pancytopenia, UTI, ... Current Diet TF-Glucerna 1.2 Venu @ 55 ml/hr (since D 02/18). Labs/Tests 02/19: Crea 0.3, Glu 143. Pertinent Medications 02/19: D10w @ 42 ml/hr, others nutritionally unremarkable. Height 5 ft 4 in Weight 47 kg [place] Body Weight (kg) 54.54 BMI 17.7 Weight change and time frame 1.8 Kg body weight loss in 1 week reported. Weight Status Underweight Subjective/Other Information RD consult for routine F/U on TF tolerance/continuation, and Low BMI assessment. TF continues as prescribed, but currently on hold, due to vomiting episode after PEG placement, according to RN notes. Pt remains on Mechanical Ventilation, O2 saturation @ 100%, according to Physical Assessment History notes. PEG-tube placement on 02/18, well tolerated, according to Operative Report notes. Pt's Low BMI seems to correspond to a natural body composition, and not related to a sudden loss of body weight nor chronic malnutrition, since no signs of concern were mentioned in the Physical Assessment History or the Progress notes. Percent of energy/protein needs met: Prescribed TF-Glucerna 1.2 Venu @ 55 ml/hr provides for energy/protein needs (1584 Kcal/79 g) during LOS, 97% Kcal; 100% AA. Burn Absent Trauma Absent GI Symptoms Vomiting Difficulty In Swallowing Food Allergy No Skin Integrity/Comment Unspecified area of concern. Current % PO Other Minimum of two criteria No Fluid Accumulation N/A Reduced Lap Welder Strength N/A (non-severe) Protein-Calorie Malnutrition N\A #1 Nutrition Diagnosis Inadequate oral intake Diagnosis Progress(for reassessment Continues documentation) Is patient on ventilator? Yes Is Patient Ambulatory and/or Out of Bed No REE-([facility]-confined to bed) 1241.100 Kcal/Kg value to use for calculation 34 Approximate Energy Requirements Using 1598 kcal/Kg Calculation Used for Recommendations Kcal/kg Additional Notes Protein: 1.2-2 g/Kg ABW; 56-93 g/day. Fluids: 1 ml/Kcal, or as per MD. Nutrition Intervention Nutrition Support: Continue TF-Glucerna 1.2 Venu @ 55 ml/hr. Flush: 100 ml water Q 4 hr, or as per MD. Kcal 1,584 Protein (gm) 79 Carbohydrates (gm) 151 Fat (gm) 79 Fluid (mL) 1,063 Fiber (gm) 21 % RDI: 97% Kcal; 100% AA. Goal #1 Provide at least 75% of energy /protein needs through Enteral Feeding during LOS. Follow-Up By: 03/05/22 Additional Comments Continue monitoring TF tolerance, Mechanical Ventilation, and BM.
--- NOTE | 2022-02-16 15:19 | Cat Scan Report ---
CT abdomen pelvis wo con INDICATION / CLINICAL INFORMATION: preop G tube, unknown prior surgical hx. TECHNIQUE: Axial CT imaging of abdomen and pelvis was obtained without contrast. Coronal and sagittal reformatte d imaging obtained and reviewed. All CT scans at this location are performed using CT dose reduction for ALARA by means of automated exposure control. COMPARISON: None available. FINDINGS: CT abdomen without IV or oral contrast was obtained. For noncontrast exam, the liver, spleen, pancreas, kidneys, and adrenal glands all appear grossly unr emarkable. Prior cholecystectomy. Abdominal aorta is grossly unremarkable other than small amount of calcified plaque. NG tube is present with tip in the distal stomach, abutting the pylorus. CT pelvis without contrast demonstrates moderate amount of stool within the rectum consistent with im paction. Transverse diameter of the rectum is approximately 5 cm. Moderate amount of stool is noted t hroughout the remainder of the colon. No pelvic mass, free fluid, or focal inflammatory changes noted . The appendix is noted in the right lower quadrant and is unremarkable. There is prominent anasarca throughout the visualized soft tissues. Visualized lung bases show interstitial opacities throughout both lung bases without focal consolidat ion. It is unclear how much of this is scarring versus acute disease. Small left pleural effusion. No acute significant skeletal abnormality. IMPRESSION: 1. No acute abnormality noted within the abdomen or pelvis. 2. Moderate amount retained stool noted throughout the colon with moderate sized fecal impaction with in the rectum. 3. Prominent anasarca. 4. Bibasilar interstitial pulmonary opacities, small left pleural effusion. Signer Name: Maura Drew MD Signed: 02/16/2022 3:15 PM Workstation Name: [id number]
[2022-02-16] MEDS ORDERED: INSULIN GLARGINE 100 UNITS/ML SUB-Q SCH (22:00)
[2022-02-16] MEDS: fentaNYL DRIP Premix 2,000 MCG/100 ML BAG IV SCH (22:10)
[2022-02-17] MEDS: INSULIN REGULAR, HUMAN 100 UNITS/1 ML SUB-Q SCH ×4 (00:53→18:24)
--- NOTE | 2022-02-17 03:15 | XRay Report ---
CHEST 1 VIEW 02/17/2022 2:05 AM INDICATION / CLINICAL INFORMATION: resp failure. COMPARISON: 02/16/2022 FINDINGS: SUPPORT DEVICES: Stable, satisfactory device positioning. Right IJ line tip overlies distal SVC HEART / MEDIASTINUM: No significant abnormality. LUNGS / PLEURA: Interstitial process in bilateral pulmonary opacities No pneumothorax. Signer Name: Rigoberto Eaton MD Signed: 02/17/2022 3:10 AM Workstation Name: [id number]
[2022-02-17 05:28] LABS: Alanine Aminotransferase 28 units/L (7-56); Albumin 2.5 g/dL (3.9-5); Blood Urea Nitrogen 22 mg/dL (7-17); Calcium 8.1 mg/dL (8.4-10.2); Hemolysis Index 0
[2022-02-17 05:49] LABS: BUN/Creatinine Ratio 55
[2022-02-17 05:56] LABS: ABG Base Excess 8.1 mmol/L (-2.0-3.0); ABG HCO3 32.8 mmol/L (20.0-26.0); ABG Methemoglobin 0.5 % (0.0-1.5); ABG Oxygen Saturation 98.2 % (95.0-99.0); ABG PCO2 46.8 mm Hg; ABG PH 7.463 pH Units (7.350-7.450); ABG PO2 113.6 mm Hg (80.0-90.0)
[2022-02-17] MEDS: NITROGLYCERIN 2% OINT 1 GM TP SCH ×2 (06:51→13:52)
[2022-02-17] MEDS: predniSONE 50 MG TAB FEEDTUBE SCH (09:19)
[2022-02-17] MEDS: SENNOSIDES/DOCUSATE SODIUM 8.6/50 MG TAB PO SCH ×2 (09:19→21:53)
[2022-02-17] MEDS: QUEtiapine 25 MG TAB PO SCH ×2 (09:20→21:53)
[2022-02-17] MEDS: FAMOTIDINE 20 MG TAB FEEDTUBE SCH ×2 (09:20→21:53)
--- NOTE | 2022-02-17 12:27 | Progress Note ---
Assessment and Plan 02/17/22: Trach and peg tomorrow. NPO after midnight tonight. Steroid taper. Will attempt to touch base with family again about consent for Picc so that IJ can be removed. If not able to do this, will need to be changed over a wire. 02/16/22: Trach and peg on Friday. Continue sedation. Will check CMP tomorrow. Will give a one time dose of albumin with lasix chaser. oral steroid taper has been ordered. need to discontinue central line and replace with picc for more alf usage. 02/15/22: Trach and peg soon. Continue sedation and supportive care. 02/14/22: Today will plan to extubate. if fails will need trach. Reviewed chart and saw vascular recs. Will wean steroids again either tomorrow or Friday. 02/13/22: Drop steroids to 50q12 today. Currently on PSV 14/. Sedatioin off. Tentatively plan for possible extubation tomorrow morning. 02/12/22: Will wean steroids more tomorrow. Drop PEEP to 6 today and attempt PSV this afternoon. If tolerates will leave on PSV until end of day shift and then rest on rate overnight. Hopeful to leave off sedation and control with PRN pushes. Repeat PSV tomorrow consider ABG, pending on how she looks clinically. Hopeful for conventional ventilation but family is on board if trach and peg are required. 02/11/22: Will drop steroids to 50q8. Will drop PEEP to 8. Once PEEP at 6 , then consult surgery fro trach and peg unless off sedation mental state is better and she can tolerate PSV to assess if able for conventional extubation. Prognosis still remains guarded but improved now that pulmonary status has improved. 02/08/22: Please do not attempt to wean PEEP unless it is compromising clinical state (breath stacking, auto peep, hypotension, etc). Patient is in full blown ARDS needs increased levels of PEEP to help with oxygenation. Now that BP is better, if no improvement would even consider increasing PEEP if needed. Discussed with RT today. Spoke with nursing and [employer] about feet, will obtain arterial dopplers. Hopeful there is no occlusion as given her pancytopenia, not sure that she would be a candidate for anticoagulation. Reviewed [place] Records as she was in [place] at least 3x prior to transfer here, twice during the month of January for DKA. She does have a diagnsosis of schizoaffective disorder. Could not find any meds for this. Will try some BID seroquel and see if this helps with mental state. Increases in sedation have not improved respiratory pattern. Patient did not get albumin and lasix last night but did get this am. Repeat CXR in the morning as well as ABG. If patient's alkalemia worsens would stop. Also given improvement in BP would start to wean stress dose steroids. She does have a diagnosis of HTN along with her diabetes and Dementia and Schizoaffective disorder. Also from reviewing the charts at [facility], patient is/was very noncompliant with diabetic regimen so some of her mental state could be vascular disease related to uncontrolled diabetes too. Overall prognosis is guarded. 02/07/22: Family meeting today, please see my event note. albumin and lasix again this morning and then again tonight. Continue steroids. May need insulin drip. Guarded prognosis. 02/06/22: Overall prognosis continues to worsen. She did respond to albumin and lasix with good urine output. Will give again tonight. Bronch results are negative and repeat cultures are negative. CXR continues to be consistent with ARDS. This could be AIP. Now on steroids so will see how she responds. Unfortunately I was not able to meet with the family today but plan to meet with them at 11 tomorrow. appreciate heme help. Given her response to steroids BP salazar, if this is truly acute interstitial pneumonitis, may consider pulse dose steroids. Will discuss with family risks of this as well. 02/05/22: Follow up bronch results. Appreciate ID assistance and changing of abx therapy. COntinue high PEEP and small TV. Ok with permissive hypercapnea as long as pH is >7.2. Follow up heme assessment. Has Kleib in tracheal aspirate. Follow up blood cultures. Will meet with family tomorrow. Overall prognosis is guarded to poor. 02/04/22: Repeat cultures this am while she is febrile. Bronched this am and wash taken from right middle lobe. Worsening CXR is likely related to the volume given yesterday. Will consult heme today as her numbers continue to worsen. Gram Negative Rods found in Tracheal aspirate from 02/01. Follow up speciation of this as well as bronch results. Will send for fungal cultures as well. Needs art line. Stop bob and change to vasopressin. Overall prognosis is very very guarded to poor. 02/03/22: Needs repeat culture with next fever spike. concern now that she is still spiking temps on broad spec abx. may need to broaden even more with antifungal but will discuss tomorrow with pharmacy tomorrow. pH is better but worsening hypoxemia. CXR shows bilateral infiltrates. Will consider bronch tomorrow for washing to be sent for culture. Consider Heme consult tomorrow. Echo was stable. Guarded to poor prognosis. Sugar is better today. 02/02/22: Wean Vasopressors as tolerated for maps >65. Check echo. Stop insulin therapy. Q1hour fSbs and cover with sliding scale. Repeat ABG later today to follow pH. May need some diamox later. Patient now neutropenic and thrombocytopenic, repeated CBC and still the same. may need to consider heme consult. For now continue broad spec abx therapy. prognosis is guarded to poor. 2 amps of NaBicarb pushed Started on Insulin drip Central line placement secondary to lack of access Aggressive volume resuscitation q1 hour fsbs and q6 hour BMPs for the next 36-48 hours Supplemental O2 Not a candidate for bipap currently given mental state so if her respiratory status deteriorates would need intubation. Guarded prognosis. Spoke with daughter briefly at bedside. She did not get off her cell phone so not able to have a full conversation with her about her mother. CCT 31 minutes. Subjective Date of service: 02/17/22 Principal diagnosis: DKA, s/p cardiopulmonary arrest Interval history: No acute events. STable pulm status. Had CT of abdomen yesterday for prep for peg placement. Objective Vital Signs - 12hr 02/17/22 02/17/22 02/17/22 00:30 00:46 01:00 Temperature Pulse Rate 107 H 108 H 106 H Pulse Rate [ From Monitor] Respiratory 19 18 19 Rate Blood Pressure 119/77 119/77 126/80 O2 Sat by Pulse 100 100 100 Oximetry 02/17/22 02/17/22 02/17/22 01:16 01:30 01:46 Temperature Pulse Rate 105 H 105 H 105 H Pulse Rate [ From Monitor] Respiratory 19 18 17 Rate Blood Pressure 126/80 126/80 126/80 O2 Sat by Pulse 100 100 100 Oximetry 02/17/22 02/17/22 02/17/22 02:00 02:16 02:30 Temperature Pulse Rate 107 H 109 H 105 H Pulse Rate [ From Monitor] Respiratory 23 17 15 Rate Blood Pressure 127/86 127/86 127/86 O2 Sat by Pulse 100 100 Oximetry 02/17/22 02/17/22 02/17/22 02:46 03:00 03:16 Temperature Pulse Rate 102 H 103 H 100 H Pulse Rate [ From Monitor] Respiratory 16 17 16 Rate Blood Pressure 127/86 126/84 126/84 O2 Sat by Pulse 100 100 100 Oximetry 02/17/22 02/17/22 02/17/22 03:30 03:46 04:00 Temperature 99.1 F Pulse Rate 103 H 101 H 108 H Pulse Rate [ 106 H From Monitor] Respiratory 14 15 24 Rate Blood Pressure 126/84 126/84 127/83 O2 Sat by Pulse 100 100 100 Oximetry 02/17/22 02/17/22 02/17/22 04:16 04:25 04:30 Temperature Pulse Rate 110 H 106 H 102 H Pulse Rate [ From Monitor] Respiratory 19 14 Rate Blood Pressure 127/83 127/83 127/83 O2 Sat by Pulse 100 100 100 Oximetry 02/17/22 02/17/22 02/17/22 04:46 05:00 05:16 Temperature Pulse Rate 102 H 104 H 106 H Pulse Rate [ From Monitor] Respiratory 15 21 18 Rate Blood Pressure 127/83 134/90 134/90 O2 Sat by Pulse 100 100 100 Oximetry 02/17/22 02/17/22 02/17/22 05:30 05:46 06:00 Temperature Pulse Rate 105 H 107 H 111 H Pulse Rate [ From Monitor] Respiratory 19 19 18 Rate Blood Pressure 134/90 134/90 134/90 O2 Sat by Pulse 100 100 99 Oximetry 02/17/22 02/17/22 02/17/22 06:16 06:30 06:46 Temperature Pulse Rate 100 H 98 H 107 H Pulse Rate [ From Monitor] Respiratory 18 19 21 Rate Blood Pressure 130/93 130/93 130/93 O2 Sat by Pulse 100 99 100 Oximetry 02/17/22 02/17/22 02/17/22 07:00 07:16 07:30 Temperature Pulse Rate 103 H 105 H 96 H Pulse Rate [ From Monitor] Respiratory 16 24 16 Rate Blood Pressure 131/85 131/85 131/85 O2 Sat by Pulse 100 100 100 Oximetry 02/17/22 02/17/22 02/17/22 07:33 07:46 08:00 Temperature 98.4 F 98.6 F Pulse Rate 98 H 100 H Pulse Rate [ 102 H From Monitor] Respiratory 21 18 Rate Blood Pressure 131/85 131/84 O2 Sat by Pulse 100 100 Oximetry 02/17/22 02/17/22 02/17/22 08:16 08:28 09:00 Temperature Pulse Rate 104 H 105 H 101 H Pulse Rate [ From Monitor] Respiratory 22 26 H 18 Rate Blood Pressure 131/85 131/84 129/75 O2 Sat by Pulse 100 100 100 Oximetry 02/17/22 02/17/22 02/17/22 10:00 11:00 12:00 Temperature Pulse Rate 108 H 108 H 112 H Pulse Rate [ From Monitor] Respiratory 17 20 15 Rate Blood Pressure 111/69 121/77 122/81 O2 Sat by Pulse 99 99 Oximetry Constitutional: other (on vent, orally intubated) Eyes: non-icteric ENT: oropharynx moist Ascultation: Bilateral: diminished breath sounds Cardiovascular: regular rate and rhythm Gastrointestinal: normoactive bowel sounds Integumentary: normal Neurologic: other (on vent) Psychiatric: other (on vent) CBC and BMP: 02/16/22 04:36 02/17/22 05:00 ABG, PT/INR, D-dimer: ABG ABG pH 7.463 pH Units (7.350-7.450) H 02/17/22 05:06 POC ABG pCO2 37.3 mmHg (32.0-48.0) 02/02/22 04:49 ABG pCO2 46.8 mm Hg 02/17/22 05:06 POC ABG pO2 79.9 mmHg (83-108) L 02/02/22 04:49 ABG pO2 113.6 mm Hg (80.0-90.0) H 02/17/22 05:06 POC ABG HCO3 30.3 02/02/22 04:49 ABG O2 Saturation 98.2 % (95.0-99.0) 02/17/22 05:06 PT/INR, D-dimer PT 14.5 Sec. (12.2-14.9) 02/16/22 04:36 INR 1.02 (0.87-1.13) 02/16/22 04:36 Abnormal lab findings: Abnormal Labs 01/31/22 01/31/22 01/31/22 20:33 20:33 20:33 WBC 12.5 H RBC 6.16 H Hgb Hct MCV 61 L MCH 18 L RDW 19.6 H Plt Count Seg Neuts % (Manual) 98.0 H Lymphocytes % (Manual) 0 L Nucleated RBC % 2.0 H Seg Neutrophils # Man 12.3 H Lymphocytes # (Manual) 0.0 L Percent Retic Fibrinogen ABG pH POC ABG pO2 ABG pO2 ABG HCO3 ABG O2 Saturation ABG Base Excess ABG Hemoglobin Oxyhemoglobin Carboxyhemoglobin Sodium Potassium 5.6 H Chloride 110.1 H Carbon Dioxide 9 L* BUN Creatinine Glucose 254 H POC Glucose Hemoglobin A1c Lactic Acid 2.50 H* Calcium 10.8 H Phosphorus Magnesium Direct Bilirubin AST ALT Alkaline Phosphatase Lactate Dehydrogenase Total Protein Albumin Ur Specific [place] Urine Blood Urine WBC (Auto) Vancomycin Trough Crossmatch 01/31/22 02/01/22 02/01/22 22:49 07:34 08:22 WBC RBC Hgb Hct MCV MCH RDW Plt Count Seg Neuts % (Manual) Lymphocytes % (Manual) Nucleated RBC % Seg Neutrophils # Man Lymphocytes # (Manual) Percent Retic Fibrinogen ABG pH POC ABG pO2 ABG pO2 ABG HCO3 ABG O2 Saturation ABG Base Excess ABG Hemoglobin Oxyhemoglobin Carboxyhemoglobin Sodium Potassium 5.8 H Chloride 115.8 H Carbon Dioxide 3 L* BUN Creatinine Glucose 400 H POC Glucose 368 H Hemoglobin A1c Lactic Acid Calcium Phosphorus Magnesium Direct Bilirubin AST ALT Alkaline Phosphatase Lactate Dehydrogenase Total Protein Albumin Ur Specific [place] 1.035 H Urine Blood Small A Urine WBC (Auto) 142.0 H Vancomycin Trough Crossmatch 02/01/22 02/01/22 02/01/22 09:42 12:01 12:54 WBC RBC Hgb Hct MCV MCH RDW Plt Count Seg Neuts % (Manual) Lymphocytes % (Manual) Nucleated RBC % Seg Neutrophils # Man Lymphocytes # (Manual) Percent Retic Fibrinogen ABG pH 7.044 L* POC ABG pO2 ABG pO2 121.0 H ABG HCO3 3.7 L ABG O2 Saturation ABG Base Excess -24.8 L ABG Hemoglobin 9.3 L Oxyhemoglobin Carboxyhemoglobin Sodium Potassium Chloride Carbon Dioxide BUN Creatinine Glucose POC Glucose 382 H Hemoglobin A1c Lactic Acid Calcium Phosphorus 1.40 L Magnesium 1.30 L Direct Bilirubin AST ALT Alkaline Phosphatase Lactate Dehydrogenase Total Protein Albumin Ur Specific [place] Urine Blood Urine WBC (Auto) Vancomycin Trough Crossmatch 02/01/22 02/01/22 02/01/22 12:54 12:54 13:27 WBC RBC Hgb Hct MCV MCH RDW Plt Count Seg Neuts % (Manual) Lymphocytes % (Manual) Nucleated RBC % Seg Neutrophils # Man Lymphocytes # (Manual) Percent Retic Fibrinogen ABG pH POC ABG pO2 ABG pO2 ABG HCO3 ABG O2 Saturation ABG Base Excess ABG Hemoglobin Oxyhemoglobin Carboxyhemoglobin Sodium 148 H D Potassium 3.0 L D Chloride 117.3 H Carbon Dioxide 9 L* BUN Creatinine Glucose 439 H POC Glucose 342 H Hemoglobin A1c 11.1 H Lactic Acid Calcium 7.7 L Phosphorus Magnesium Direct Bilirubin AST ALT Alkaline Phosphatase Lactate Dehydrogenase Total Protein Albumin Ur Specific [place] Urine Blood Urine WBC (Auto) Vancomycin Trough Crossmatch 02/01/22 02/01/22 02/01/22 14:48 15:48 16:54 WBC RBC Hgb Hct MCV MCH RDW Plt Count Seg Neuts % (Manual) Lymphocytes % (Manual) Nucleated RBC % Seg Neutrophils # Man Lymphocytes # (Manual) Percent Retic Fibrinogen ABG pH POC ABG pO2 ABG pO2 ABG HCO3 ABG O2 Saturation ABG Base Excess ABG Hemoglobin Oxyhemoglobin Carboxyhemoglobin Sodium Potassium Chloride Carbon Dioxide BUN Creatinine Glucose POC Glucose 394 H 412 H 352 H Hemoglobin A1c Lactic Acid Calcium Phosphorus Magnesium Direct Bilirubin AST ALT Alkaline Phosphatase Lactate Dehydrogenase Total Protein Albumin Ur Specific [place] Urine Blood Urine WBC (Auto) Vancomycin Trough Crossmatch 02/01/22 02/01/22 02/01/22 18:23 18:53 19:26 WBC RBC Hgb Hct MCV MCH RDW Plt Count Seg Neuts % (Manual) Lymphocytes % (Manual) Nucleated RBC % Seg Neutrophils # Man Lymphocytes # (Manual) Percent Retic Fibrinogen ABG pH 7.331 L POC ABG pO2 ABG pO2 121.4 H ABG HCO3 ABG O2 Saturation ABG Base Excess -4.9 L ABG Hemoglobin 8.4 L Oxyhemoglobin Carboxyhemoglobin Sodium Potassium Chloride Carbon Dioxide BUN Creatinine Glucose POC Glucose 350 H 260 H Hemoglobin A1c Lactic Acid Calcium Phosphorus Magnesium Direct Bilirubin AST ALT Alkaline Phosphatase Lactate Dehydrogenase Total Protein Albumin Ur Specific [place] Urine Blood Urine WBC (Auto) Vancomycin Trough Crossmatch 02/01/22 02/01/22 02/01/22 20:20 21:38 22:41 WBC RBC Hgb Hct MCV MCH RDW Plt Count Seg Neuts % (Manual) Lymphocytes % (Manual) Nucleated RBC % Seg Neutrophils # Man Lymphocytes # (Manual) Percent Retic Fibrinogen ABG pH POC ABG pO2 ABG pO2 ABG HCO3 ABG O2 Saturation ABG Base Excess ABG Hemoglobin Oxyhemoglobin Carboxyhemoglobin Sodium Potassium Chloride Carbon Dioxide BUN Creatinine Glucose POC Glucose 266 H 195 H 150 H Hemoglobin A1c Lactic Acid Calcium Phosphorus Magnesium Direct Bilirubin AST ALT Alkaline Phosphatase Lactate Dehydrogenase Total Protein Albumin Ur Specific [place] Urine Blood Urine WBC (Auto) Vancomycin Trough Crossmatch 02/01/22 02/02/22 02/02/22 23:39 00:25 00:25 WBC RBC Hgb Hct MCV MCH RDW Plt Count Seg Neuts % (Manual) Lymphocytes % (Manual) Nucleated RBC % Seg Neutrophils # Man Lymphocytes # (Manual) Percent Retic Fibrinogen ABG pH POC ABG pO2 ABG pO2 ABG HCO3 ABG O2 Saturation ABG Base Excess ABG Hemoglobin Oxyhemoglobin Carboxyhemoglobin Sodium 156 H D Potassium 3.0 L Chloride 114.2 H Carbon Dioxide BUN Creatinine 0.5 L Glucose 63 L POC Glucose 125 H Hemoglobin A1c Lactic Acid 7.10 H* Calcium 8.1 L Phosphorus Magnesium Direct Bilirubin AST ALT Alkaline Phosphatase Lactate Dehydrogenase Total Protein Albumin Ur Specific [place] Urine Blood Urine WBC (Auto) Vancomycin Trough Crossmatch 02/02/22 02/02/22 02/02/22 04:00 04:00 04:35 WBC 1.4 L* RBC Hgb 8.5 L Hct 26.8 L D MCV 57 L MCH 18 L RDW 19.0 H Plt Count 129 L Seg Neuts % (Manual) 33.0 L Lymphocytes % (Manual) 57.0 H Nucleated RBC % Seg Neutrophils # Man 0.5 L Lymphocytes # (Manual) 0.8 L Percent Retic Fibrinogen ABG pH POC ABG pO2 ABG pO2 ABG HCO3 ABG O2 Saturation ABG Base Excess ABG Hemoglobin Oxyhemoglobin Carboxyhemoglobin Sodium 155 H Potassium Chloride 113.1 H Carbon Dioxide BUN Creatinine Glucose 159 H POC Glucose Hemoglobin A1c Lactic Acid 3.10 H* Calcium 7.6 L Phosphorus Magnesium Direct Bilirubin AST ALT Alkaline Phosphatase Lactate Dehydrogenase Total Protein Albumin Ur Specific [place] Urine Blood Urine WBC (Auto) Vancomycin Trough Crossmatch 07/02/02/22 02/02/22 04:37 04:49 05:43 WBC RBC Hgb Hct MCV MCH RDW Plt Count Seg Neuts % (Manual) Lymphocytes % (Manual) Nucleated RBC % Seg Neutrophils # Man Lymphocytes # (Manual) Percent Retic Fibrinogen ABG pH 7.528 H POC ABG pO2 79.9 L ABG pO2 ABG HCO3 ABG O2 Saturation ABG Base Excess ABG Hemoglobin 8.8 L Oxyhemoglobin Carboxyhemoglobin 0.2 L Sodium Potassium Chloride Carbon Dioxide BUN Creatinine Glucose POC Glucose 116 H 125 H Hemoglobin A1c Lactic Acid Calcium Phosphorus Magnesium Direct Bilirubin AST ALT Alkaline Phosphatase Lactate Dehydrogenase Total Protein Albumin Ur Specific [place] Urine Blood Urine WBC (Auto) Vancomycin Trough Crossmatch 02/02/22 02/02/22 02/02/22 06:52 09:02 09:05 WBC RBC Hgb Hct MCV MCH RDW Plt Count Seg Neuts % (Manual) Lymphocytes % (Manual) Nucleated RBC % Seg Neutrophils # Man Lymphocytes # (Manual) Percent Retic Fibrinogen ABG pH POC ABG pO2 ABG pO2 ABG HCO3 ABG O2 Saturation ABG Base Excess ABG Hemoglobin Oxyhemoglobin Carboxyhemoglobin Sodium 154 H Potassium 3.3 L Chloride 113.3 H Carbon Dioxide BUN Creatinine Glucose 35 L* POC Glucose 110 H 35 L Hemoglobin A1c Lactic Acid Calcium 7.4 L Phosphorus 1.70 L D Magnesium 2.50 H Direct Bilirubin AST ALT Alkaline Phosphatase Lactate Dehydrogenase Total Protein Albumin Ur Specific [place] Urine Blood Urine WBC (Auto) Vancomycin Trough Crossmatch 02/02/22 02/02/22 02/02/22 09:05 09:30 09:41 WBC 2.6 L RBC Hgb 8.0 L Hct 25.0 L MCV 57 L MCH 18 L RDW 18.8 H Plt Count 97 L Seg Neuts % (Manual) Lymphocytes % (Manual) 12.0 L Nucleated RBC % 10.0 H Seg Neutrophils # Man 1.7 L Lymphocytes # (Manual) 0.3 L Percent Retic Fibrinogen ABG pH POC ABG pO2 ABG pO2 ABG HCO3 ABG O2 Saturation ABG Base Excess ABG Hemoglobin Oxyhemoglobin Carboxyhemoglobin Sodium Potassium Chloride Carbon Dioxide BUN Creatinine Glucose POC Glucose 119 H Hemoglobin A1c Lactic Acid 7.10 H* Calcium Phosphorus Magnesium Direct Bilirubin AST ALT Alkaline Phosphatase Lactate Dehydrogenase Total Protein Albumin Ur Specific [place] Urine Blood Urine WBC (Auto) Vancomycin Trough Crossmatch 0702/02/22 02/02/22 10:17 12:32 15:39 WBC RBC Hgb Hct MCV MCH RDW Plt Count Seg Neuts % (Manual) Lymphocytes % (Manual) Nucleated RBC % Seg Neutrophils # Man Lymphocytes # (Manual) Percent Retic Fibrinogen ABG pH POC ABG pO2 ABG pO2 ABG HCO3 ABG O2 Saturation ABG Base Excess ABG Hemoglobin Oxyhemoglobin Carboxyhemoglobin Sodium Potassium Chloride Carbon Dioxide BUN Creatinine Glucose POC Glucose 120 H 166 H 263 H Hemoglobin A1c Lactic Acid Calcium Phosphorus Magnesium Direct Bilirubin AST ALT Alkaline Phosphatase Lactate Dehydrogenase Total Protein Albumin Ur Specific [place] Urine Blood Urine WBC (Auto) Vancomycin Trough Crossmatch 02/02/22 02/02/22 02/02/22 17:07 17:50 Unknown WBC RBC Hgb Hct MCV MCH RDW Plt Count Seg Neuts % (Manual) Lymphocytes % (Manual) Nucleated RBC % Seg Neutrophils # Man Lymphocytes # (Manual) Percent Retic Fibrinogen ABG pH 7.457 H POC ABG pO2 ABG pO2 71.0 L ABG HCO3 ABG O2 Saturation 94.5 L ABG Base Excess ABG Hemoglobin 9.2 L Oxyhemoglobin 93.0 L Carboxyhemoglobin Sodium 147 H Potassium 5.5 H D Chloride 110.8 H Carbon Dioxide BUN Creatinine Glucose 271 H POC Glucose 231 H Hemoglobin A1c Lactic Acid Calcium 7.3 L Phosphorus Magnesium Direct Bilirubin AST ALT Alkaline Phosphatase Lactate Dehydrogenase Total Protein Albumin Ur Specific [place] Urine Blood Urine WBC (Auto) Vancomycin Trough Crossmatch 02/03/22 02/03/22 02/03/22 00:08 04:00 04:00 WBC 3.7 L RBC Hgb 8.0 L Hct 25.5 L MCV 58 L MCH 18 L RDW 18.2 H Plt Count 79 L Seg Neuts % (Manual) 76.0 H Lymphocytes % (Manual) 2.0 L Nucleated RBC % 4.0 H Seg Neutrophils # Man Lymphocytes # (Manual) 0.1 L Percent Retic Fibrinogen ABG pH POC ABG pO2 ABG pO2 ABG HCO3 ABG O2 Saturation ABG Base Excess ABG Hemoglobin Oxyhemoglobin Carboxyhemoglobin Sodium 147 H Potassium Chloride 112.9 H Carbon Dioxide BUN Creatinine Glucose 281 H POC Glucose 231 H Hemoglobin A1c Lactic Acid Calcium 7.8 L Phosphorus Magnesium Direct Bilirubin 0.3 H AST 172 H ALT 89 H Alkaline Phosphatase Lactate Dehydrogenase Total Protein 4.7 L D Albumin 2.0 L Ur Specific [place] Urine Blood Urine WBC (Auto) Vancomycin Trough Crossmatch 02/03/22 02/03/22 02/03/22 04:20 05:26 11:38 WBC RBC Hgb Hct MCV MCH RDW Plt Count Seg Neuts % (Manual) Lymphocytes % (Manual) Nucleated RBC % Seg Neutrophils # Man Lymphocytes # (Manual) Percent Retic Fibrinogen ABG pH POC ABG pO2 ABG pO2 75.5 L ABG HCO3 ABG O2 Saturation ABG Base Excess -2.8 L ABG Hemoglobin 8.1 L Oxyhemoglobin 94.6 L Carboxyhemoglobin Sodium Potassium Chloride Carbon Dioxide BUN Creatinine Glucose POC Glucose 247 H 196 H Hemoglobin A1c Lactic Acid Calcium Phosphorus Magnesium Direct Bilirubin AST ALT Alkaline Phosphatase Lactate Dehydrogenase Total Protein Albumin Ur Specific [place] Urine Blood Urine WBC (Auto) Vancomycin Trough Crossmatch 02/03/22 02/04/22 02/04/22 16:27 02:44 03:18 WBC 1.2 L* RBC Hgb 8.2 L Hct 26.6 L MCV 59 L MCH 18 L RDW 19.6 H Plt Count 50 L Seg Neuts % (Manual) Lymphocytes % (Manual) Nucleated RBC % Seg Neutrophils # Man Lymphocytes # (Manual) Percent Retic Fibrinogen ABG pH POC ABG pO2 ABG pO2 ABG HCO3 ABG O2 Saturation ABG Base Excess ABG Hemoglobin Oxyhemoglobin Carboxyhemoglobin Sodium 148 H Potassium Chloride 116.3 H Carbon Dioxide BUN Creatinine Glucose 139 H POC Glucose 119 H Hemoglobin A1c Lactic Acid Calcium Phosphorus Magnesium Direct Bilirubin 0.3 H AST 92 H ALT 76 H Alkaline Phosphatase Lactate Dehydrogenase Total Protein 4.7 L Albumin 1.6 L Ur Specific [place] Urine Blood Urine WBC (Auto) Vancomycin Trough Crossmatch 02/04/22 02/04/22 02/04/22 05:15 05:26 09:15 WBC RBC Hgb Hct MCV MCH RDW Plt Count Seg Neuts % (Manual) Lymphocytes % (Manual) Nucleated RBC % Seg Neutrophils # Man Lymphocytes # (Manual) Percent Retic Fibrinogen ABG pH 7.311 L POC ABG pO2 ABG pO2 50.1 L ABG HCO3 ABG O2 Saturation 83.6 L ABG Base Excess ABG Hemoglobin 8.6 L Oxyhemoglobin 81.9 L Carboxyhemoglobin Sodium Potassium Chloride Carbon Dioxide BUN Creatinine Glucose POC Glucose 115 H Hemoglobin A1c Lactic Acid Calcium Phosphorus Magnesium Direct Bilirubin AST ALT Alkaline Phosphatase Lactate Dehydrogenase Total Protein Albumin Ur Specific [place] Urine Blood Large A Urine WBC (Auto) 12.0 H Vancomycin Trough Crossmatch 02/04/22 02/04/22 02/04/22 11:17 14:37 17:04 WBC RBC Hgb Hct MCV MCH RDW Plt Count Seg Neuts % (Manual) Lymphocytes % (Manual) Nucleated RBC % Seg Neutrophils # Man Lymphocytes # (Manual) Percent Retic Fibrinogen ABG pH POC ABG pO2 ABG pO2 ABG HCO3 ABG O2 Saturation ABG Base Excess ABG Hemoglobin Oxyhemoglobin Carboxyhemoglobin Sodium Potassium Chloride Carbon Dioxide BUN Creatinine Glucose POC Glucose 166 H 109 H Hemoglobin A1c Lactic Acid Calcium Phosphorus Magnesium Direct Bilirubin AST 87 H ALT 75 H Alkaline Phosphatase 137 H Lactate Dehydrogenase Total Protein 4.6 L Albumin 1.7 L Ur Specific [place] Urine Blood Urine WBC (Auto) Vancomycin Trough Crossmatch 02/04/22 02/04/22 02/04/22 20:15 20:22 20:22 WBC RBC Hgb 7.1 L Hct 22.6 L MCV MCH RDW Plt Count Seg Neuts % (Manual) Lymphocytes % (Manual) Nucleated RBC % Seg Neutrophils # Man Lymphocytes # (Manual) Percent Retic Fibrinogen ABG pH 7.292 L POC ABG pO2 ABG pO2 40.3 L ABG HCO3 ABG O2 Saturation 72.1 L ABG Base Excess -2.2 L ABG Hemoglobin 7.0 L Oxyhemoglobin 70.5 L Carboxyhemoglobin Sodium Potassium Chloride Carbon Dioxide BUN Creatinine Glucose POC Glucose Hemoglobin A1c Lactic Acid 3.00 H* Calcium Phosphorus Magnesium Direct Bilirubin AST ALT Alkaline Phosphatase Lactate Dehydrogenase Total Protein Albumin Ur Specific [place] Urine Blood Urine WBC (Auto) Vancomycin Trough Crossmatch 02/04/22 02/04/22 02/05/22 20:22 23:03 04:40 WBC 3.1 L RBC Hgb 9.6 L Hct 30.1 L D MCV 64 L MCH 20 L RDW 26.9 H Plt Count 50 L Seg Neuts % (Manual) Lymphocytes % (Manual) Nucleated RBC % Seg Neutrophils # Man Lymphocytes # (Manual) Percent Retic Fibrinogen ABG pH POC ABG pO2 ABG pO2 ABG HCO3 ABG O2 Saturation ABG Base Excess ABG Hemoglobin Oxyhemoglobin Carboxyhemoglobin Sodium Potassium Chloride Carbon Dioxide BUN Creatinine Glucose POC Glucose 171 H Hemoglobin A1c Lactic Acid Calcium Phosphorus Magnesium Direct Bilirubin AST ALT Alkaline Phosphatase Lactate Dehydrogenase Total Protein Albumin Ur Specific [place] Urine Blood Urine WBC (Auto) Vancomycin Trough Crossmatch See Detail 02/05/22 02/05/22 02/05/22 04:40 04:40 04:43 WBC RBC Hgb Hct MCV MCH RDW Plt Count Seg Neuts % (Manual) Lymphocytes % (Manual) Nucleated RBC % Seg Neutrophils # Man Lymphocytes # (Manual) Percent Retic Fibrinogen ABG pH POC ABG pO2 ABG pO2 ABG HCO3 ABG O2 Saturation ABG Base Excess ABG Hemoglobin Oxyhemoglobin Carboxyhemoglobin Sodium 148 H Potassium Chloride 113.2 H Carbon Dioxide BUN 21 H Creatinine Glucose 155 H POC Glucose 156 H Hemoglobin A1c Lactic Acid Calcium Phosphorus Magnesium Direct Bilirubin AST 84 H ALT 67 H Alkaline Phosphatase 152 H Lactate Dehydrogenase 879 H Total Protein 5.0 L Albumin 1.8 L Ur Specific [place] Urine Blood Urine WBC (Auto) Vancomycin Trough Crossmatch 02/05/22 02/05/22 02/05/22 08:10 08:48 08:48 WBC RBC Hgb Hct MCV MCH RDW Plt Count Seg Neuts % (Manual) Lymphocytes % (Manual) Nucleated RBC % Seg Neutrophils # Man Lymphocytes # (Manual) Percent Retic Fibrinogen 795 H ABG pH POC ABG pO2 ABG pO2 57.1 L ABG HCO3 27.8 H ABG O2 Saturation 90.8 L ABG Base Excess ABG Hemoglobin 8.5 L Oxyhemoglobin 88.9 L Carboxyhemoglobin Sodium Potassium Chloride Carbon Dioxide BUN Creatinine Glucose POC Glucose Hemoglobin A1c Lactic Acid 2.90 H* Calcium Phosphorus Magnesium Direct Bilirubin AST ALT Alkaline Phosphatase Lactate Dehydrogenase Total Protein Albumin Ur Specific [place] Urine Blood Urine WBC (Auto) Vancomycin Trough Crossmatch 02/05/22 02/05/22 02/05/22 11:46 17:45 Unknown WBC RBC Hgb Hct MCV MCH RDW Plt Count Seg Neuts % (Manual) Lymphocytes % (Manual) Nucleated RBC % Seg Neutrophils # Man Lymphocytes # (Manual) Percent Retic Fibrinogen ABG pH POC ABG pO2 ABG pO2 ABG HCO3 ABG O2 Saturation ABG Base Excess ABG Hemoglobin Oxyhemoglobin Carboxyhemoglobin Sodium Potassium Chloride Carbon Dioxide BUN Creatinine Glucose POC Glucose 61 L 133 H Hemoglobin A1c Lactic Acid Calcium Phosphorus Magnesium Direct Bilirubin AST ALT Alkaline Phosphatase Lactate Dehydrogenase Total Protein Albumin Ur Specific [place] Urine Blood Urine WBC (Auto) Vancomycin Trough 28.6 H Crossmatch 02/05/22 02/06/22 02/06/22 23:59 04:33 04:33 WBC RBC Hgb 8.4 L Hct 26.1 L MCV 64 L MCH 21 L RDW 26.2 H Plt Count 38 L Seg Neuts % (Manual) Lymphocytes % (Manual) Nucleated RBC % Seg Neutrophils # Man Lymphocytes # (Manual) Percent Retic Fibrinogen ABG pH POC ABG pO2 ABG pO2 ABG HCO3 ABG O2 Saturation ABG Base Excess ABG Hemoglobin Oxyhemoglobin Carboxyhemoglobin Sodium 146 H Potassium 3.4 L Chloride Carbon Dioxide 31 H BUN 21 H Creatinine Glucose 230 H POC Glucose 275 H Hemoglobin A1c Lactic Acid Calcium Phosphorus Magnesium Direct Bilirubin AST 70 H ALT Alkaline Phosphatase 197 H Lactate Dehydrogenase Total Protein 5.3 L Albumin 2.4 L Ur Specific [place] Urine Blood Urine WBC (Auto) Vancomycin Trough Crossmatch 02/06/22 02/06/22 02/06/22 04:33 04:50 06:19 WBC RBC Hgb Hct MCV MCH RDW Plt Count Seg Neuts % (Manual) Lymphocytes % (Manual) Nucleated RBC % Seg Neutrophils # Man Lymphocytes # (Manual) Percent Retic Fibrinogen ABG pH 7.330 L POC ABG pO2 ABG pO2 57.9 L ABG HCO3 31.3 H ABG O2 Saturation 89.6 L ABG Base Excess 4.5 H ABG Hemoglobin 8.1 L Oxyhemoglobin 87.7 L Carboxyhemoglobin Sodium Potassium Chloride Carbon Dioxide BUN Creatinine Glucose POC Glucose 219 H Hemoglobin A1c Lactic Acid 3.10 H* Calcium Phosphorus Magnesium Direct Bilirubin AST ALT Alkaline Phosphatase Lactate Dehydrogenase Total Protein Albumin Ur Specific [place] Urine Blood Urine WBC (Auto) Vancomycin Trough Crossmatch 02/06/22 02/06/22 02/06/22 11:24 11:50 12:26 WBC RBC Hgb Hct MCV MCH RDW Plt Count Seg Neuts % (Manual) Lymphocytes % (Manual) Nucleated RBC % Seg Neutrophils # Man Lymphocytes # (Manual) Percent Retic Fibrinogen ABG pH 7.298 L POC ABG pO2 ABG pO2 43.3 L ABG HCO3 36.7 H ABG O2 Saturation 74.9 L ABG Base Excess 8.8 H ABG Hemoglobin 8.2 L Oxyhemoglobin 73.3 L Carboxyhemoglobin Sodium Potassium Chloride Carbon Dioxide BUN Creatinine Glucose POC Glucose 118 H Hemoglobin A1c Lactic Acid 2.50 H* Calcium Phosphorus Magnesium Direct Bilirubin AST ALT Alkaline Phosphatase Lactate Dehydrogenase Total Protein Albumin Ur Specific [place] Urine Blood Urine WBC (Auto) Vancomycin Trough Crossmatch 02/06/22 02/06/22 02/07/22 17:41 21:41 00:17 WBC RBC Hgb Hct MCV MCH RDW Plt Count Seg Neuts % (Manual) Lymphocytes % (Manual) Nucleated RBC % Seg Neutrophils # Man Lymphocytes # (Manual) Percent Retic Fibrinogen ABG pH POC ABG pO2 ABG pO2 ABG HCO3 ABG O2 Saturation ABG Base Excess ABG Hemoglobin Oxyhemoglobin Carboxyhemoglobin Sodium Potassium Chloride Carbon Dioxide BUN Creatinine Glucose POC Glucose 208 H 282 H 342 H Hemoglobin A1c Lactic Acid Calcium Phosphorus Magnesium Direct Bilirubin AST ALT Alkaline Phosphatase Lactate Dehydrogenase Total Protein Albumin Ur Specific [place] Urine Blood Urine WBC (Auto) Vancomycin Trough Crossmatch 02/07/22 02/07/22 02/07/22 00:19 04:12 04:12 WBC 13.1 H RBC Hgb 8.5 L Hct 26.4 L MCV 62 L MCH 20 L RDW 24.2 H Plt Count 57 L Seg Neuts % (Manual) Lymphocytes % (Manual) Nucleated RBC % Seg Neutrophils # Man Lymphocytes # (Manual) Percent Retic Fibrinogen ABG pH POC ABG pO2 ABG pO2 ABG HCO3 ABG O2 Saturation ABG Base Excess ABG Hemoglobin Oxyhemoglobin Carboxyhemoglobin Sodium 149 H Potassium 3.1 L Chloride Carbon Dioxide 38 H D BUN 23 H Creatinine Glucose 298 H POC Glucose 209 H Hemoglobin A1c Lactic Acid Calcium Phosphorus 2.10 L Magnesium Direct Bilirubin AST 49 H ALT Alkaline Phosphatase 248 H Lactate Dehydrogenase Total Protein 5.4 L Albumin 2.7 L Ur Specific [place] Urine Blood Urine WBC (Auto) Vancomycin Trough Crossmatch 02/07/22 02/07/22 02/07/22 04:40 07:09 07:13 WBC RBC Hgb Hct MCV MCH RDW Plt Count Seg Neuts % (Manual) Lymphocytes % (Manual) Nucleated RBC % Seg Neutrophils # Man Lymphocytes # (Manual) Percent Retic Fibrinogen ABG pH 7.474 H POC ABG pO2 ABG pO2 62.1 L ABG HCO3 39.1 H ABG O2 Saturation 94.7 L ABG Base Excess 13.9 H ABG Hemoglobin 8.6 L Oxyhemoglobin 93.0 L Carboxyhemoglobin Sodium Potassium Chloride Carbon Dioxide BUN Creatinine Glucose POC Glucose 399 H 418 H Hemoglobin A1c Lactic Acid Calcium Phosphorus Magnesium Direct Bilirubin AST ALT Alkaline Phosphatase Lactate Dehydrogenase Total Protein Albumin Ur Specific [place] Urine Blood Urine WBC (Auto) Vancomycin Trough Crossmatch 02/07/22 02/07/22 02/07/22 12:20 17:29 23:37 WBC RBC Hgb Hct MCV MCH RDW Plt Count Seg Neuts % (Manual) Lymphocytes % (Manual) Nucleated RBC % Seg Neutrophils # Man Lymphocytes # (Manual) Percent Retic Fibrinogen ABG pH POC ABG pO2 ABG pO2 ABG HCO3 ABG O2 Saturation ABG Base Excess ABG Hemoglobin Oxyhemoglobin Carboxyhemoglobin Sodium Potassium Chloride Carbon Dioxide BUN Creatinine Glucose POC Glucose 229 H 159 H 236 H Hemoglobin A1c Lactic Acid Calcium Phosphorus Magnesium Direct Bilirubin AST ALT Alkaline Phosphatase Lactate Dehydrogenase Total Protein Albumin Ur Specific [place] Urine Blood Urine WBC (Auto) Vancomycin Trough Crossmatch 02/08/22 02/08/22 02/08/22 03:55 03:55 05:20 WBC 14.7 H RBC Hgb 7.7 L Hct 25.0 L MCV 64 L MCH 20 L RDW 25.1 H Plt Count 79 L Seg Neuts % (Manual) Lymphocytes % (Manual) Nucleated RBC % Seg Neutrophils # Man Lymphocytes # (Manual) Percent Retic 0.65 L Fibrinogen ABG pH POC ABG pO2 ABG pO2 ABG HCO3 ABG O2 Saturation ABG Base Excess ABG Hemoglobin Oxyhemoglobin Carboxyhemoglobin Sodium Potassium 3.0 L Chloride 93.9 L Carbon Dioxide 44 H* BUN 30 H Creatinine Glucose 229 H POC Glucose 235 H Hemoglobin A1c Lactic Acid Calcium 8.3 L Phosphorus 2.30 L Magnesium Direct Bilirubin AST 77 H ALT Alkaline Phosphatase 246 H Lactate Dehydrogenase Total Protein 5.2 L Albumin 2.7 L Ur Specific [place] Urine Blood Urine WBC (Auto) Vancomycin Trough Crossmatch 02/08/22 02/08/22 02/08/22 11:47 16:36 21:41 WBC RBC Hgb Hct MCV MCH RDW Plt Count Seg Neuts % (Manual) Lymphocytes % (Manual) Nucleated RBC % Seg Neutrophils # Man Lymphocytes # (Manual) Percent Retic Fibrinogen ABG pH POC ABG pO2 ABG pO2 ABG HCO3 ABG O2 Saturation ABG Base Excess ABG Hemoglobin Oxyhemoglobin Carboxyhemoglobin Sodium Potassium Chloride Carbon Dioxide BUN Creatinine Glucose POC Glucose 193 H 205 H 292 H Hemoglobin A1c Lactic Acid Calcium Phosphorus Magnesium Direct Bilirubin AST ALT Alkaline Phosphatase Lactate Dehydrogenase Total Protein Albumin Ur Specific [place] Urine Blood Urine WBC (Auto) Vancomycin Trough Crossmatch 02/08/22 02/08/22 02/09/22 Unknown 23:59 04:00 WBC 16.4 H RBC Hgb 8.2 L Hct 26.3 L MCV 63 L MCH 20 L RDW 23.9 H Plt Count 128 L Seg Neuts % (Manual) Lymphocytes % (Manual) Nucleated RBC % Seg Neutrophils # Man Lymphocytes # (Manual) Percent Retic Fibrinogen ABG pH 7.488 H POC ABG pO2 ABG pO2 63.1 L ABG HCO3 45.5 H ABG O2 Saturation 94.1 L ABG Base Excess 19.8 H ABG Hemoglobin 8.7 L Oxyhemoglobin 92.4 L Carboxyhemoglobin Sodium Potassium Chloride Carbon Dioxide BUN Creatinine Glucose POC Glucose 342 H Hemoglobin A1c Lactic Acid Calcium Phosphorus Magnesium Direct Bilirubin AST ALT Alkaline Phosphatase Lactate Dehydrogenase Total Protein Albumin Ur Specific [place] Urine Blood Urine WBC (Auto) Vancomycin Trough Crossmatch 02/09/22 02/09/22 02/09/22 04:00 05:30 06:07 WBC RBC Hgb Hct MCV MCH RDW Plt Count Seg Neuts % (Manual) Lymphocytes % (Manual) Nucleated RBC % Seg Neutrophils # Man Lymphocytes # (Manual) Percent Retic Fibrinogen ABG pH 7.539 H POC ABG pO2 ABG pO2 210.4 H ABG HCO3 42.4 H ABG O2 Saturation 99.3 H ABG Base Excess 18.0 H ABG Hemoglobin 7.8 L Oxyhemoglobin Carboxyhemoglobin Sodium 149 H Potassium 3.1 L Chloride 97.6 L Carbon Dioxide 42 H* BUN 27 H Creatinine Glucose 257 H POC Glucose 260 H Hemoglobin A1c Lactic Acid Calcium 8.2 L Phosphorus 1.90 L Magnesium Direct Bilirubin AST 81 H ALT Alkaline Phosphatase 229 H Lactate Dehydrogenase Total Protein 5.4 L Albumin 2.6 L Ur Specific [place] Urine Blood Urine WBC (Auto) Vancomycin Trough Crossmatch 02/09/22 02/09/22 02/09/22 11:16 17:33 20:25 WBC RBC Hgb Hct MCV MCH RDW Plt Count Seg Neuts % (Manual) Lymphocytes % (Manual) Nucleated RBC % Seg Neutrophils # Man Lymphocytes # (Manual) Percent Retic Fibrinogen ABG pH 7.504 H POC ABG pO2 ABG pO2 79.7 L ABG HCO3 44.2 H ABG O2 Saturation ABG Base Excess 19.2 H ABG Hemoglobin 7.0 L Oxyhemoglobin Carboxyhemoglobin Sodium Potassium Chloride Carbon Dioxide BUN Creatinine Glucose POC Glucose 184 H 123 H Hemoglobin A1c Lactic Acid Calcium Phosphorus Magnesium Direct Bilirubin AST ALT Alkaline Phosphatase Lactate Dehydrogenase Total Protein Albumin Ur Specific [place] Urine Blood Urine WBC (Auto) Vancomycin Trough Crossmatch 02/09/22 02/09/22 02/10/22 21:16 23:13 03:40 WBC 17.2 H RBC Hgb 7.9 L Hct 25.3 L MCV 63 L MCH 20 L RDW 20.7 H Plt Count Seg Neuts % (Manual) Lymphocytes % (Manual) Nucleated RBC % Seg Neutrophils # Man Lymphocytes # (Manual) Percent Retic Fibrinogen ABG pH POC ABG pO2 ABG pO2 ABG HCO3 ABG O2 Saturation ABG Base Excess ABG Hemoglobin Oxyhemoglobin Carboxyhemoglobin Sodium Potassium Chloride Carbon Dioxide BUN Creatinine Glucose POC Glucose 186 H 276 H Hemoglobin A1c Lactic Acid Calcium Phosphorus Magnesium Direct Bilirubin AST ALT Alkaline Phosphatase Lactate Dehydrogenase Total Protein Albumin Ur Specific [place] Urine Blood Urine WBC (Auto) Vancomycin Trough Crossmatch 02/10/22 02/10/22 02/10/22 03:40 04:17 04:17 WBC RBC Hgb Hct MCV MCH RDW Plt Count Seg Neuts % (Manual) Lymphocytes % (Manual) Nucleated RBC % Seg Neutrophils # Man Lymphocytes # (Manual) Percent Retic Fibrinogen ABG pH 7.468 H POC ABG pO2 ABG pO2 124.2 H ABG HCO3 42.1 H ABG O2 Saturation ABG Base Excess 16.6 H ABG Hemoglobin 7.6 L Oxyhemoglobin Carboxyhemoglobin Sodium 149 H Potassium 3.2 L Chloride Carbon Dioxide 38 H BUN 26 H Creatinine 0.5 L Glucose 188 H POC Glucose 189 H Hemoglobin A1c Lactic Acid Calcium 8.3 L Phosphorus 2.10 L Magnesium Direct Bilirubin AST 120 H ALT 80 H Alkaline Phosphatase 207 H Lactate Dehydrogenase Total Protein 5.3 L Albumin 2.4 L Ur Specific [place] Urine Blood Urine WBC (Auto) Vancomycin Trough Crossmatch 02/10/22 02/10/22 02/10/22 11:46 16:27 21:15 WBC RBC Hgb Hct MCV MCH RDW Plt Count Seg Neuts % (Manual) Lymphocytes % (Manual) Nucleated RBC % Seg Neutrophils # Man Lymphocytes # (Manual) Percent Retic Fibrinogen ABG pH POC ABG pO2 ABG pO2 ABG HCO3 ABG O2 Saturation ABG Base Excess ABG Hemoglobin Oxyhemoglobin Carboxyhemoglobin Sodium Potassium Chloride Carbon Dioxide BUN Creatinine Glucose POC Glucose 189 H 198 H 261 H Hemoglobin A1c Lactic Acid Calcium Phosphorus Magnesium Direct Bilirubin AST ALT Alkaline Phosphatase Lactate Dehydrogenase Total Protein Albumin Ur Specific [place] Urine Blood Urine WBC (Auto) Vancomycin Trough Crossmatch 02/10/22 02/11/22 02/11/22 23:20 04:00 04:00 WBC 20.8 H RBC Hgb 7.7 L Hct 24.5 L MCV 64 L MCH 20 L RDW 23.5 H Plt Count Seg Neuts % (Manual) Lymphocytes % (Manual) Nucleated RBC % Seg Neutrophils # Man Lymphocytes # (Manual) Percent Retic Fibrinogen ABG pH POC ABG pO2 ABG pO2 ABG HCO3 ABG O2 Saturation ABG Base Excess ABG Hemoglobin Oxyhemoglobin Carboxyhemoglobin Sodium 148 H Potassium 3.3 L Chloride Carbon Dioxide 39 H BUN 27 H Creatinine 0.5 L Glucose 218 H POC Glucose 196 H Hemoglobin A1c Lactic Acid Calcium 8.3 L Phosphorus Magnesium Direct Bilirubin AST ALT Alkaline Phosphatase Lactate Dehydrogenase Total Protein Albumin Ur Specific [place] Urine Blood Urine WBC (Auto) Vancomycin Trough Crossmatch 02/11/22 02/11/22 02/11/22 05:00 05:57 11:15 WBC RBC Hgb Hct MCV MCH RDW Plt Count Seg Neuts % (Manual) Lymphocytes % (Manual) Nucleated RBC % Seg Neutrophils # Man Lymphocytes # (Manual) Percent Retic Fibrinogen ABG pH 7.459 H POC ABG pO2 ABG pO2 99.8 H ABG HCO3 41.4 H ABG O2 Saturation ABG Base Excess 15.9 H ABG Hemoglobin 7.5 L Oxyhemoglobin Carboxyhemoglobin Sodium Potassium Chloride Carbon Dioxide BUN Creatinine Glucose POC Glucose 173 H 204 H Hemoglobin A1c Lactic Acid Calcium Phosphorus Magnesium Direct Bilirubin AST ALT Alkaline Phosphatase Lactate Dehydrogenase Total Protein Albumin Ur Specific [place] Urine Blood Urine WBC (Auto) Vancomycin Trough Crossmatch 02/11/22 02/11/22 02/12/22 17:15 21:21 00:29 WBC RBC Hgb Hct MCV MCH RDW Plt Count Seg Neuts % (Manual) Lymphocytes % (Manual) Nucleated RBC % Seg Neutrophils # Man Lymphocytes # (Manual) Percent Retic Fibrinogen ABG pH POC ABG pO2 ABG pO2 ABG HCO3 ABG O2 Saturation ABG Base Excess ABG Hemoglobin Oxyhemoglobin Carboxyhemoglobin Sodium Potassium Chloride Carbon Dioxide BUN Creatinine Glucose POC Glucose 157 H 183 H 197 H Hemoglobin A1c Lactic Acid Calcium Phosphorus Magnesium Direct Bilirubin AST ALT Alkaline Phosphatase Lactate Dehydrogenase Total Protein Albumin Ur Specific [place] Urine Blood Urine WBC (Auto) Vancomycin Trough Crossmatch 08/09/22 08/09/22 08/09/22 04:17 04:17 05:00 WBC 23.9 H RBC Hgb 7.5 L Hct 24.2 L MCV 64 L MCH 20 L RDW 25.5 H Plt Count Seg Neuts % (Manual) Lymphocytes % (Manual) Nucleated RBC % Seg Neutrophils # Man Lymphocytes # (Manual) Percent Retic Fibrinogen ABG pH 7.467 H POC ABG pO2 ABG pO2 97.9 H ABG HCO3 40.7 H ABG O2 Saturation ABG Base Excess 15.3 H ABG Hemoglobin 7.5 L Oxyhemoglobin Carboxyhemoglobin Sodium 146 H Potassium Chloride Carbon Dioxide 39 H BUN 25 H Creatinine 0.4 L Glucose 135 H POC Glucose Hemoglobin A1c Lactic Acid Calcium Phosphorus Magnesium Direct Bilirubin AST ALT Alkaline Phosphatase Lactate Dehydrogenase Total Protein Albumin Ur Specific [place] Urine Blood Urine WBC (Auto) Vancomycin Trough Crossmatch 02/12/22 02/12/22 02/12/22 05:53 12:31 17:54 WBC RBC Hgb Hct MCV MCH RDW Plt Count Seg Neuts % (Manual) Lymphocytes % (Manual) Nucleated RBC % Seg Neutrophils # Man Lymphocytes # (Manual) Percent Retic Fibrinogen ABG pH POC ABG pO2 ABG pO2 ABG HCO3 ABG O2 Saturation ABG Base Excess ABG Hemoglobin Oxyhemoglobin Carboxyhemoglobin Sodium Potassium Chloride Carbon Dioxide BUN Creatinine Glucose POC Glucose 114 H 124 H 159 H Hemoglobin A1c Lactic Acid Calcium Phosphorus Magnesium Direct Bilirubin AST ALT Alkaline Phosphatase Lactate Dehydrogenase Total Protein Albumin Ur Specific [place] Urine Blood Urine WBC (Auto) Vancomycin Trough Crossmatch 02/12/22 02/13/22 02/13/22 22:09 03:40 04:00 WBC 23.6 H RBC 3.42 L Hgb 6.7 L Hct 21.7 L MCV 64 L MCH 20 L RDW 27.3 H Plt Count Seg Neuts % (Manual) Lymphocytes % (Manual) Nucleated RBC % Seg Neutrophils # Man Lymphocytes # (Manual) Percent Retic Fibrinogen ABG pH 7.465 H POC ABG pO2 ABG pO2 104.3 H ABG HCO3 39.4 H ABG O2 Saturation ABG Base Excess 14.3 H ABG Hemoglobin 6.7 L Oxyhemoglobin Carboxyhemoglobin Sodium Potassium Chloride Carbon Dioxide BUN Creatinine Glucose POC Glucose 160 H Hemoglobin A1c Lactic Acid Calcium Phosphorus Magnesium Direct Bilirubin AST ALT Alkaline Phosphatase Lactate Dehydrogenase Total Protein Albumin Ur Specific [place] Urine Blood Urine WBC (Auto) Vancomycin Trough Crossmatch 02/13/22 02/13/2222 04:00 06:05 09:41 WBC RBC Hgb Hct MCV MCH RDW Plt Count Seg Neuts % (Manual) Lymphocytes % (Manual) Nucleated RBC % Seg Neutrophils # Man Lymphocytes # (Manual) Percent Retic Fibrinogen ABG pH POC ABG pO2 ABG pO2 ABG HCO3 ABG O2 Saturation ABG Base Excess ABG Hemoglobin Oxyhemoglobin Carboxyhemoglobin Sodium 146 H Potassium Chloride Carbon Dioxide 38 H BUN 25 H Creatinine 0.4 L Glucose 235 H POC Glucose 283 H Hemoglobin A1c Lactic Acid Calcium 8.0 L Phosphorus Magnesium Direct Bilirubin AST ALT 58 H Alkaline Phosphatase 143 H Lactate Dehydrogenase Total Protein 4.7 L Albumin 2.2 L Ur Specific [place] Urine Blood Urine WBC (Auto) Vancomycin Trough Crossmatch See Detail 02/13/22 02/13/22 02/13/22 11:37 18:30 21:47 WBC RBC Hgb Hct MCV MCH RDW Plt Count Seg Neuts % (Manual) Lymphocytes % (Manual) Nucleated RBC % Seg Neutrophils # Man Lymphocytes # (Manual) Percent Retic Fibrinogen ABG pH POC ABG pO2 ABG pO2 ABG HCO3 ABG O2 Saturation ABG Base Excess ABG Hemoglobin Oxyhemoglobin Carboxyhemoglobin Sodium Potassium Chloride Carbon Dioxide BUN Creatinine Glucose POC Glucose 132 H 187 H 279 H Hemoglobin A1c Lactic Acid Calcium Phosphorus Magnesium Direct Bilirubin AST ALT Alkaline Phosphatase Lactate Dehydrogenase Total Protein Albumin Ur Specific [place] Urine Blood Urine WBC (Auto) Vancomycin Trough Crossmatch 02/14/22 02/14/22 02/14/22 01:07 04:35 04:40 WBC 24.5 H RBC Hgb 9.4 L Hct 28.8 L D MCV 69 L MCH 23 L RDW 30.3 H Plt Count Seg Neuts % (Manual) Lymphocytes % (Manual) Nucleated RBC % Seg Neutrophils # Man Lymphocytes # (Manual) Percent Retic Fibrinogen ABG pH 7.484 H POC ABG pO2 ABG pO2 101.5 H ABG HCO3 35.8 H ABG O2 Saturation ABG Base Excess 11.1 H ABG Hemoglobin 9.4 L Oxyhemoglobin Carboxyhemoglobin Sodium Potassium Chloride Carbon Dioxide BUN Creatinine Glucose POC Glucose 267 H Hemoglobin A1c Lactic Acid Calcium Phosphorus Magnesium Direct Bilirubin AST ALT Alkaline Phosphatase Lactate Dehydrogenase Total Protein Albumin Ur Specific [place] Urine Blood Urine WBC (Auto) Vancomycin Trough Crossmatch 02/14/22 02/14/22 02/14/22 06:16 09:03 11:20 WBC RBC Hgb Hct MCV MCH RDW Plt Count Seg Neuts % (Manual) Lymphocytes % (Manual) Nucleated RBC % Seg Neutrophils # Man Lymphocytes # (Manual) Percent Retic Fibrinogen ABG pH POC ABG pO2 ABG pO2 ABG HCO3 ABG O2 Saturation ABG Base Excess ABG Hemoglobin Oxyhemoglobin Carboxyhemoglobin Sodium Potassium Chloride Carbon Dioxide 39 H BUN 20 H Creatinine 0.4 L Glucose 144 H POC Glucose 183 H 42 L Hemoglobin A1c Lactic Acid Calcium 8.3 L Phosphorus Magnesium Direct Bilirubin AST ALT Alkaline Phosphatase Lactate Dehydrogenase Total Protein Albumin Ur Specific [place] Urine Blood Urine WBC (Auto) Vancomycin Trough Crossmatch 02/14/22 02/14/22 02/14/22 18:07 18:10 18:36 WBC RBC Hgb Hct MCV MCH RDW Plt Count Seg Neuts % (Manual) Lymphocytes % (Manual) Nucleated RBC % Seg Neutrophils # Man Lymphocytes # (Manual) Percent Retic Fibrinogen ABG pH 7.518 H POC ABG pO2 ABG pO2 97.1 H ABG HCO3 38.8 H ABG O2 Saturation ABG Base Excess 13.8 H ABG Hemoglobin Oxyhemoglobin Carboxyhemoglobin Sodium Potassium Chloride Carbon Dioxide BUN Creatinine Glucose POC Glucose 29 L 143 H Hemoglobin A1c Lactic Acid Calcium Phosphorus Magnesium Direct Bilirubin AST ALT Alkaline Phosphatase Lactate Dehydrogenase Total Protein Albumin Ur Specific [place] Urine Blood Urine WBC (Auto) Vancomycin Trough Crossmatch 02/14/22 02/15/22 02/15/22 23:44 03:31 05:23 WBC 20.1 H RBC Hgb 8.4 L Hct 26.6 L MCV 69 L MCH 22 L RDW 31.5 H Plt Count Seg Neuts % (Manual) Lymphocytes % (Manual) Nucleated RBC % Seg Neutrophils # Man Lymphocytes # (Manual) Percent Retic Fibrinogen ABG pH POC ABG pO2 ABG pO2 ABG HCO3 ABG O2 Saturation ABG Base Excess ABG Hemoglobin Oxyhemoglobin Carboxyhemoglobin Sodium Potassium Chloride Carbon Dioxide BUN Creatinine Glucose POC Glucose 229 H 232 H Hemoglobin A1c Lactic Acid Calcium Phosphorus Magnesium Direct Bilirubin AST ALT Alkaline Phosphatase Lactate Dehydrogenase Total Protein Albumin Ur Specific [place] Urine Blood Urine WBC (Auto) Vancomycin Trough Crossmatch 02/15/22 02/15/22 02/15/22 11:32 17:41 23:24 WBC RBC Hgb Hct MCV MCH RDW Plt Count Seg Neuts % (Manual) Lymphocytes % (Manual) Nucleated RBC % Seg Neutrophils # Man Lymphocytes # (Manual) Percent Retic Fibrinogen ABG pH POC ABG pO2 ABG pO2 ABG HCO3 ABG O2 Saturation ABG Base Excess ABG Hemoglobin Oxyhemoglobin Carboxyhemoglobin Sodium Potassium Chloride Carbon Dioxide BUN Creatinine Glucose POC Glucose 160 H 211 H 261 H Hemoglobin A1c Lactic Acid Calcium Phosphorus Magnesium Direct Bilirubin AST ALT Alkaline Phosphatase Lactate Dehydrogenase Total Protein Albumin Ur Specific [place] Urine Blood Urine WBC (Auto) Vancomycin Trough Crossmatch 02/16/22 02/16/22 02/16/22 04:36 04:36 05:11 WBC 17.3 H RBC Hgb 8.1 L Hct 26.6 L MCV 70 L MCH 21 L RDW 30.8 H Plt Count Seg Neuts % (Manual) Lymphocytes % (Manual) Nucleated RBC % Seg Neutrophils # Man Lymphocytes # (Manual) Percent Retic Fibrinogen ABG pH POC ABG pO2 ABG pO2 ABG HCO3 ABG O2 Saturation ABG Base Excess ABG Hemoglobin Oxyhemoglobin Carboxyhemoglobin Sodium Potassium Chloride Carbon Dioxide 34 H BUN 20 H Creatinine 0.4 L Glucose 206 H POC Glucose 198 H Hemoglobin A1c Lactic Acid Calcium 7.7 L Phosphorus Magnesium Direct Bilirubin AST ALT Alkaline Phosphatase Lactate Dehydrogenase Total Protein Albumin Ur Specific [place] Urine Blood Urine WBC (Auto) Vancomycin Trough Crossmatch 02/16/22 02/16/22 02/17/22 11:25 16:29 00:16 WBC RBC Hgb Hct MCV MCH RDW Plt Count Seg Neuts % (Manual) Lymphocytes % (Manual) Nucleated RBC % Seg Neutrophils # Man Lymphocytes # (Manual) Percent Retic Fibrinogen ABG pH POC ABG pO2 ABG pO2 ABG HCO3 ABG O2 Saturation ABG Base Excess ABG Hemoglobin Oxyhemoglobin Carboxyhemoglobin Sodium Potassium Chloride Carbon Dioxide BUN Creatinine Glucose POC Glucose 130 H 182 H 220 H Hemoglobin A1c Lactic Acid Calcium Phosphorus Magnesium Direct Bilirubin AST ALT Alkaline Phosphatase Lactate Dehydrogenase Total Protein Albumin Ur Specific [place] Urine Blood Urine WBC (Auto) Vancomycin Trough Crossmatch 02/17/22 02/17/22 02/17/22 05:00 05:06 05:58 WBC RBC Hgb Hct MCV MCH RDW Plt Count Seg Neuts % (Manual) Lymphocytes % (Manual) Nucleated RBC % Seg Neutrophils # Man Lymphocytes # (Manual) Percent Retic Fibrinogen ABG pH 7.463 H POC ABG pO2 ABG pO2 113.6 H ABG HCO3 32.8 H ABG O2 Saturation ABG Base Excess 8.1 H ABG Hemoglobin 8.0 L Oxyhemoglobin Carboxyhemoglobin Sodium Potassium Chloride Carbon Dioxide 34 H BUN 22 H Creatinine 0.4 L Glucose 314 H POC Glucose 269 H Hemoglobin A1c Lactic Acid Calcium 8.1 L Phosphorus Magnesium Direct Bilirubin AST ALT Alkaline Phosphatase Lactate Dehydrogenase Total Protein 5.4 L Albumin 2.5 L Ur Specific [place] Urine Blood Urine WBC (Auto) Vancomycin Trough Crossmatch 02/17/22 11:18 WBC RBC Hgb Hct MCV MCH RDW Plt Count Seg Neuts % (Manual) Lymphocytes % (Manual) Nucleated RBC % Seg Neutrophils # Man Lymphocytes # (Manual) Percent Retic Fibrinogen ABG pH POC ABG pO2 ABG pO2 ABG HCO3 ABG O2 Saturation ABG Base Excess ABG Hemoglobin Oxyhemoglobin Carboxyhemoglobin Sodium Potassium Chloride Carbon Dioxide BUN Creatinine Glucose POC Glucose 135 H Hemoglobin A1c Lactic Acid Calcium Phosphorus Magnesium Direct Bilirubin AST ALT Alkaline Phosphatase Lactate Dehydrogenase Total Protein Albumin Ur Specific [place] Urine Blood Urine WBC (Auto) Vancomycin Trough Crossmatch
--- NOTE | 2022-02-17 15:08 | Progress Note ---
<JUSTINFabioRADHANelson - Last Filed: 02/17/22 15:09> Assessment and Plan Assessment and plan: This is a 61 year old female with DM, Dementia, HLD, HTN admitted with DKA s/p cardiac arrest on 02/01 Neuro: Acute metabolic encephalopathy, h/o dementia -Neurology consulted, appreciate recommendations -Serouqel bid -Fentanyl gtt -RASS goal 0 to -1 -Reorientation as needed -As needed analgesia Cardiac: s/p PEA cardiac arrest on 02/01, SVT, h/o HLD and HTN -Cardiology consulted, appreciate recommendations -s/p cardiac arrest on 02/01 -Blood pressure monitoring per protocol -s/p Vasopressor support with Levophed -MAP goal greater than 65 -Echocardiogram LVEF 55 to 60% Respiratory: Acute hypoxic respiratory failure, ARDS -[facility] consulted, appreciate recommendations -Intubated on 02/01 with 7.0 OETT at 21 at the lips, extubated 02/14 and reintubated 02/14 -A.m. vent settings: AC TV 350, Rate 12, Peep 6, FiO2 30% -02/04 s/p Bronchoscopy at the bedside by CCM -A.m. ABG and CXR noted -VAP bundle -SPO2 monitoring -Surgery consulted for trach/peg GI: Mod protein venu malnutrition, transaminitis (resolving) -24 hours -346 mL -PPI -NTR consulted for tube feedings -BR: Senokot S -CT abd/pelvis shows no acute changes -Scheduled to peg Friday : NAD -Monitor intake and output -Renally dose medications -Avoid nephrotoxic medications -s/p bicarbonate drip -Trend BMP ID: Sepsis, UTI, lactic acidosis -Presented with tachycardia, leukocytosis, pyuria on UA developed pancytopenia, hypotension, tachycardia -Infectious disease consulted, appreciate recommendations -s/p antibiotic therapy with rocephin -UA consistent with pyuria, Blood cultures with NGTD -Sputum culture with Klebsiella Pneumoniae -covid pcr (-) -f/u blood culture -Monitor WBC and temperature curve Endo: s/p DKA, h/o DM -Presented with severe metabolic acidosis, blood glucose in 300s -s/p insulin drip -Avoid hypoglycemia -Hemoglobin A1c 11.1 -SSI -Accu-Cheks q. every 6 -Long-acting insulin, titrate as needed Heme: Leukocytosis, BLE ischemia -Hem/onc and vascular surgery consulted, appreciate recommendations -Bilateral lower extremity ultrasound negative for DVT -Bilateral lower extremity arterial duplex shows multifocal arthrosclerotic disease throughout bilateral lower extremities, transition into biphasic and monophasic waveforms bilaterally suggesting hemodynamically significant narrowing of each respective segment, no arterial occlusion or other proximal flow limiting stenosis -Will start plavix post PEG on Monday 02/19 -Trend CBC -s/p 2 unit PRBC -Transfuse hemoglobin less than 7 -SCDs to BLE while in bed The high probability of a clinically significant, sudden or life threatening deterioration of the [multi] system(s) required my full and direct attention, intervention and personal management. The aggregate critical care time was [60] minutes. This time is in addition to time spent performing reported procedures but includes the following: [x] Data Review and interpretation [x] Patient assessment and monitoring of vital signs [x] Documentation [x] Medication orders and management Disposition Plan: icu Total Time Spent with Patient (Minutes): 60 History Interval history: This is a 61-year-old female is a resident of a [facility] with DM,, dementia (possibly [place]ernickes per daughter), hyperlipidemia, and hypertension who presents to the hospital on 01/31 from [facility] for hypoglycemia. In the ED patient was found to be tachycardic, tachypneic and lab work showed hyperkalemia, hyperchloremia, high anion gap metabolic acidosis with leukocytosis and UA showed pyuria. Patient was admitted to the hospitalist service. Hospital course to date: 02/01: patient was transferred to ICU as lab work was consistent with DKA and started on insulin drip. Central line placed for IV access. Patient was given bicarb push and started on a bicarb drip. She was also started on Rocephin due to UTI however antibiotics are broadened to cefepime and vancomycin. 02/02: s/p cardiac arrest on 02/01. Bicarbonate drip discontinued. Pancytopenia noted, anion gap closed and transitioned to SSI and long-acting insulin. Patient was having hypoglycemia this morning which has been corrected now. Started on tube feeding. Potassium and phosphorus will be repleted. Hyper natremia noted and FWF started with tube feedings. COVID-19 PCR pending. Venous Doppler ultrasound pending. Neurology and cardiology consulted. Echocardiogram pending. Patient currently on Levophed and sedated with propofol. Fentanyl added. Given 1 LR bolus this morning for hypotension. 02/03: LR bolus x2, remains on levophed, tachycardia and EKG completed which shows tachycardia. Increase in FiO2, Will culture with next temp spike. Will give 1 gm Calcium Gluconate. 02/04: S/p Bronch this am by CCM at the bedside. Patient still spiking high temp despite broad spectrum IV Abx. Remains on high pressors with worsen neutropenia and thrombocytopenia. Will panculture this am, antifungal culture was also ordered. Continue current empiric IV Abx for now, awaiting sensitivity. Will also consult ID for further eval. Possible Hematology consult for pancytopenia per CCM. Possible family meeting with [facility] this week, case management to arrange. 02/05: Back up on full support on the vent. CXR with worsen bilateral opacities, S/p X1 dose of IV lasix. Patient also received 1units of PRBCs overnight due to anemia, H&H stable this am and no s/s of any active bleeding. Patient remains pancytopenic, still febrile. IV abx changed to Merrem and Vanc per ID, hematology consult pending. ST with episodes of SVT this am, plan for amiodarone gtt per Cardio. Off pressors this am. BP remains boderline, 25% IV Albumin and X1 dose of additional IV lasix gain today per CCM. Continue FWF for hypernatremia. Lantus adjusted due to hypoglycemia. Possible family meeting tomorrow with [facility]. 02/06: Decompensated this am, sudden drop in SPO2 in the 80s, HR in the 50s, and MAP in the 40s. Back on 2 pressors, on 100% FIO2 and 12 of peep. Stat ABG pending, 1amp Bcarb given, stress dose steroids initiated. This an CXR reviewed with worsen opacities from prior. Patient remains on IV abx per ID. Hematology recommendations appreciated. Event discussed with [facility] who agreed with current intervention. Patient's daughter and sister were notified via phone. Current events, patient's diagnosis, overal condition, and poor prognosis were thoroughly discussed. GOC was also addressed with patient's daughter and sister, they voiced that if patient was able to speak for herself she would want all lifesaving measures, including CPR and medications if her heart stop. All questions and concerns were addressed at this time. They verbalized understanding and agreed with current care plan. Patient remains a FULL code st atus at This time. 84: Responded well to IV lasix and albumin overnight. CXR with some improvement today. IV lasix and albumin gain today per CCM. With increased WOB and tachpnea this am, low dose propofol added for RASS goal of 0 to -2. Wean FIO2 as tolerated for SPO2 goal above 92%. Worsen hyperglycemia this am, most like due to IV steroids, insulin therapy adjusted. Monitor and replace electrolytes as needed. Family meeting today with [facility], patient remains a FULL code status. 8: Tolerating gentle diurese. Patient missed overnight IV lasix/albumin dose, will repeat another dose this morning. Continue to wean Fio2 as tolerated. Remains off pressors, VSS. Concern for BLE ischemia probably due to hypoperfusion vs pressor use. Will check BLE arterial doppler to r/o occlusion. Possible Vascular Surgery consult dependent on doppler result. Lantus adjusted for persisting hyperglycemia. Electrolytes repleted, monitor and replace electrolytes as needed. 86: This am ABG and CXR with some improvement this am. Down to 55% Fio2 this am. Hypotensive overnight required short duration of Levophed gtt, pressor is off this am. Will hold on IV diuretic today. Continue to monitor for now. Tash ctrolytes repleted, monitor and replace electrolytes as needed. Prior history of psych issues, seroquel added BID. BLE doppler pending. 02/10: Remains stable on the vent. Down to 40% Fio2 and peep of 10 this am, SPO2 above 95%, CXR is unchanged. Continue vent wean as tolerated. Remains on IV steroid, will start tapering tomorrow. Per CCM, plan is to optimize patient on the vent for possible trach and PEG. FWF increased for persistent hypernatremia. K and phos repleted. Continue to monitor and replace electrolytes as needed. 02/11: Water flush continued at 300 mL every 4, potassium repleted, remains on vasopressors. No acute events reported overnight. intiate seriod taper 02/12: Patient being weaned down IV fentanyl pushes ordered, Lantus decreased, decreased PEEP and RT placed on pressure support this afternoon. No acute events overnight. 02/13: Patient attempted on PSV again today, steroids continue to be tapered. Tentative extubation tomorrow was supplanted by [facility]. Patient only lasted 3 hours again today. Vascular surgery consult completed and recommended plavix. 02/14: Patient was extubated today to nasal cannula. This afternoon she was started on high flow nasal cannula. No acute events reported overnight. Steroids tapered. Femoral A-line removed. 02/15: No acute events reported overnight. Surgery consulted for trach/PEG.. COVID-[address] abdomen/pelvis pending. Possible trach/PEG placement on 02/18. 02/16: PICC line to be placed today. Given 1 dose of albumin with Lasix. Discontinue CVL. No acute events reported overnight. 02/17: No acute events reported overnight, now bilateral lower extremities with discoloration. Plavix scheduled to start Friday. PEG/trach scheduled for Friday. PICC line consent obtained. lantus adjusted. CPAP today. Hospitalist Physical - Constitutional Vitals: Temp Pulse Resp BP Pulse Ox 97.7 F 107 H 20 121/85 99 02/17/22 12:40 02/17/22 13:00 02/17/22 13:00 02/17/22 13:00 02/17/22 13:00 General appearance: Present: no acute distress - EENT Eyes: Present: PERRL, EOM intact ENT: dentition normal - Neck Neck: Present: normal ROM - Respiratory Respiratory effort: normal Respiratory: bilateral: CTA - Cardiovascular Rhythm: regular Heart Sounds: Present: S1 & S2. Absent: systolic murmur, diastolic murmur - Extremities Extremities: pulses symmetrical, normal temperature Extremity abnormal: black, cold, pulses diminished Peripheral Pulses: within normal limits - Abdominal General gastrointestinal: soft, non-tender, non-distended, normal bowel sounds - Integumentary Integumentary: Present: warm, dry - Psychiatric Psychiatric: cooperative - Neurologic Neurologic: other (intact cough/gag, ) HEART Score - HEART Score Troponin: Troponin T < 0.010 ng/mL (0.00-0.029) 02/03/22 16:15 Results - Labs CBC & Chem 7: 02/16/22 04:36 02/17/22 05:00 Labs: Laboratory Last Values WBC 17.3 K/mm3 (4.5-11.0) H 02/16/22 04:36 RBC 3.80 M/mm3 (3.65-5.03) 02/16/22 04:36 Hgb 8.1 gm/dl (10.1-14.3) L 02/16/22 04:36 Hct 26.6 % (30.3-42.9) L 02/16/22 04:36 MCV 70 fl (79-97) L 02/16/22 04:36 MCH 21 pg (28-32) L 02/16/22 04:36 MCHC 31 % (30-34) 02/16/22 04:36 RDW 30.8 % (13.2-15.2) H 02/16/22 04:36 Plt Count 407 K/mm3 (140-440) 02/16/22 04:36 Lymph % (Auto) Nascar Racer 02/02/22 04:00 Add Manual Diff Complete 02/03/22 04:00 Total Counted 50 02/03/22 04:00 Seg Neutrophils % Nascar Racer 02/02/22 04:00 Seg Neuts % (Manual) 76.0 % (40.0-70.0) H 02/03/22 04:00 Band Neutrophils % 18.0 % 02/03/22 04:00 Lymphocytes % (Manual) 2.0 % (13.4-35.0) L 02/03/22 04:00 Reactive Lymphs % (Man) 0 % 02/03/22 04:00 Monocytes % (Manual) 4.0 % (0.0-7.3) 02/03/22 04:00 Eosinophils % (Manual) 0 % (0.0-4.3) 02/03/22 04:00 Basophils % (Manual) 0 % (0.0-1.8) 02/03/22 04:00 Metamyelocytes % 0 % 02/03/22 04:00 Myelocytes % 0 % 02/03/22 04:00 Promyelocytes % 0 % 02/03/22 04:00 Blast Cells % 0 % 02/03/22 04:00 Nucleated RBC % 4.0 % (0.0-0.9) H 02/03/22 04:00 Seg Neutrophils # Man 2.8 K/mm3 (1.8-7.7) 02/03/22 04:00 Band Neutrophils # 0.7 K/mm3 02/03/22 04:00 Lymphocytes # (Manual) 0.1 K/mm3 (1.2-5.4) L 02/03/22 04:00 Abs React Lymphs (Man) 0.0 K/mm3 02/03/22 04:00 Monocytes # (Manual) 0.1 K/mm3 (0.0-0.8) 02/03/22 04:00 Eosinophils # (Manual) 0.0 K/mm3 (0.0-0.4) 02/03/22 04:00 Basophils # (Manual) 0.0 K/mm3 (0.0-0.1) 02/03/22 04:00 Metamyelocytes # 0.0 K/mm3 02/03/22 04:00 Myelocytes # 0.0 K/mm3 02/03/22 04:00 Promyelocytes # 0.0 K/mm3 02/03/22 04:00 Blast Cells # 0.0 K/mm3 02/03/22 04:00 WBC Morphology Not Reportable 02/03/22 04:00 Hypersegmented Neuts Not Reportable 02/03/22 04:00 Hyposegmented Neuts Not Reportable 02/03/22 04:00 Hypogranular Neuts Not Reportable 02/03/22 04:00 Smudge Cells Not Reportable 02/03/22 04:00 Toxic Granulation Not Reportable 02/03/22 04:00 Toxic Vacuolation Not Reportable 02/03/22 04:00 Dohle Bodies Few 02/03/22 04:00 Pelger-Huet Anomaly Not Reportable 02/03/22 04:00 Sung Rods Not Reportable 02/03/22 04:00 Platelet Estimate Consistent w auto 02/03/22 04:00 Clumped Platelets Not Reportable 02/03/22 04:00 Plt Clumps, EDTA Not Reportable 02/03/22 04:00 Large Platelets Not Reportable 02/03/22 04:00 Giant Platelets Not Reportable 02/03/22 04:00 Platelet Satelliting Not Reportable 02/03/22 04:00 Plt Morphology Comment Not Reportable 02/03/22 04:00 RBC Morphology Not Reportable 02/03/22 04:00 Dimorphic RBCs Not Reportable 02/03/22 04:00 Polychromasia Not Reportable 02/03/22 04:00 Hypochromasia 3+ 02/03/22 04:00 Poikilocytosis 2+ 02/03/22 04:00 Anisocytosis 1+ 02/03/22 04:00 Microcytosis 2+ 02/03/22 04:00 Macrocytosis Not Reportable 02/03/22 04:00 Spherocytes Not Reportable 02/03/22 04:00 Pappenheimer Bodies Not Reportable 02/03/22 04:00 Sickle Cells Not Reportable 02/03/22 04:00 Target Cells 1+ 02/03/22 04:00 Tear Drop Cells Few 02/03/22 04:00 Ovalocytes Few 02/03/22 04:00 Helmet Cells Not Reportable 02/03/22 04:00 [place] Bodies Not Reportable 02/03/22 04:00 [place] Rings Not Reportable 02/03/22 04:00 [place] Cells 1+ 02/03/22 04:00 Bite Cells Not Reportable 02/03/22 04:00 Crenated Cell Not Reportable 02/03/22 04:00 Elliptocytes Few 02/03/22 04:00 Acanthocytes (Spur) Not Reportable 02/03/22 04:00 Rouleaux Not Reportable 02/03/22 04:00 Hemoglobin C Crystals Not Reportable 02/03/22 04:00 Schistocytes Rare 02/03/22 04:00 Malaria parasites Not Reportable 02/03/22 04:00 Percent Retic 0.65 % (0.78-2.58) L 02/08/22 03:55 Sven Bodies Not Reportable 02/03/22 04:00 Hem Pathologist Commnt No 02/03/22 04:00 PT 14.5 Sec. (12.2-14.9) 02/16/22 04:36 INR 1.02 (0.87-1.13) 02/16/22 04:36 APTT 29.5 Sec. (24.2-36.6) 02/16/22 04:36 Fibrinogen 795 mg/dl (211-480) H 02/05/22 08:48 ABG pH 7.463 pH Units (7.350-7.450) H 02/17/22 05:06 POC ABG pCO2 37.3 mmHg (32.0-48.0) 02/02/22 04:49 ABG pCO2 46.8 mm Hg 02/17/22 05:06 POC ABG pO2 79.9 mmHg (83-108) L 02/02/22 04:49 ABG pO2 113.6 mm Hg (80.0-90.0) H 02/17/22 05:06 POC ABG HCO3 30.3 02/02/22 04:49 ABG HCO3 32.8 mmol/L (20.0-26.0) H 02/17/22 05:06 ABG O2 Saturation 98.2 % (95.0-99.0) 02/17/22 05:06 ABG O2 Content 11.0 (0.0-44) 02/17/22 05:06 POC ABG Base Excess 7.1 02/02/22 04:49 ABG Base Excess 8.1 mmol/L (-2.0-3.0) H 02/17/22 05:06 ABG Hemoglobin 8.0 gm/dl (12.0-16.0) L 02/17/22 05:06 ABG Oxyhemoglobin 96.0 (94-98) 02/02/22 04:49 ABG Carboxyhemoglobin 1.7 % (0.0-5.0) 02/17/22 05:06 ABG Methemoglobin 0.5 % (0.0-1.5) 02/17/22 05:06 ABG Sodium Not Reportable 02/02/22 04:49 ABG Potassium Not Reportable 02/02/22 04:49 ABG Chloride Not Reportable 02/02/22 04:49 ABG Glucose Not Reportable 02/02/22 04:49 Oxyhemoglobin 96.0 % (95.0-99.0) 02/17/22 05:06 Carboxyhemoglobin 0.2 (0.5-1.5) L 02/02/22 04:49 FiO2 30 % 02/17/22 05:06 FiO2 % 60.0 02/02/22 04:49 Sodium 139 mmol/L (137-145) 02/17/22 05:00 Potassium 3.9 mmol/L (3.6-5.0) 02/17/22 05:00 Chloride 99.8 mmol/L (98-107) 02/17/22 05:00 Carbon Dioxide 34 mmol/L (22-30) H 02/17/22 05:00 Anion Gap 9 mmol/L 02/17/22 05:00 BUN 22 mg/dL (7-17) H 02/17/22 05:00 Creatinine 0.4 mg/dL (0.6-1.2) L 02/17/22 05:00 Estimated GFR > 60 ml/min 02/17/22 05:00 BUN/Creatinine Ratio 55 % 02/17/22 05:00 Glucose 314 mg/dL (65-100) H 02/17/22 05:00 POC Glucose 135 mg/dL (70-105) H 02/17/22 11:18 Hemoglobin A1c 11.1 % (4-6) H 02/01/22 12:54 Lactic Acid 2.50 mmol/L (0.7-2.0) H* 02/06/22 11:50 Calcium 8.1 mg/dL (8.4-10.2) L 02/17/22 05:00 Phosphorus 3.90 mg/dL (2.5-4.5) 02/15/22 09:12 Magnesium 2.20 mg/dL (1.7-2.3) 02/15/22 09:12 Total Bilirubin 0.50 mg/dL (0.1-1.2) 02/17/22 05:00 Direct Bilirubin < 0.2 mg/dL (0-0.2) 02/13/22 04:00 Indirect Bilirubin 0.1 mg/dL 02/13/22 04:00 AST 38 units/L (5-40) 02/17/22 05:00 ALT 28 units/L (7-56) 02/17/22 05:00 Alkaline Phosphatase 102 units/L (35-129) 02/17/22 05:00 Lactate Dehydrogenase 879 units/L (91-180) H 02/05/22 04:40 Troponin T < 0.010 ng/mL (0.00-0.029) 02/03/22 16:15 Total Protein 5.4 g/dL (6.3-8.2) L 02/17/22 05:00 Albumin 2.5 g/dL (3.9-5) L 02/17/22 05:00 Albumin/Globulin Ratio 0.9 % 02/17/22 05:00 Arterial Blood Glucose Not Reportable 02/02/22 04:49 Urine Color Yellow (Yellow) 02/04/22 09:15 Urine Turbidity Cloudy (Clear) 02/04/22 09:15 Urine pH 6.0 (5.0-7.0) 02/04/22 09:15 Ur Specific [place] 1.025 (1.003-1.030) 02/04/22 09:15 Urine Protein >500 mg/dL (Negative) 02/04/22 09:15 Urine Glucose (UA) Negative mg/dL (Negative) 02/04/22 09:15 Urine Ketones Negative mg/dL (Negative) 02/04/22 09:15 Urine Blood Large (Negative) A 02/04/22 09:15 Urine Nitrite Negative (Negative) 02/04/22 09:15 Ur Reducing Substances Not Reportable 01/31/22 22:49 Urine Bilirubin Negative (Negative) 02/04/22 09:15 Urine Ictotest Not Reportable 01/31/22 22:49 Urine Urobilinogen < 2.0 mg/dL (<2.0) 02/04/22 09:15 Ur Leukocyte Esterase Negative (Negative) 02/04/22 09:15 Urine WBC (Auto) 12.0 /HPF (0.0-6.0) H 02/04/22 09:15 Urine RBC (Auto) 107.0 /HPF (0.0-6.0) 02/04/22 09:15 U Epithel Cells (Auto) 1.0 /HPF (0-13.0) 02/04/22 09:15 Urine Bacteria (Auto) 1+ /HPF (Negative) 02/04/22 09:15 Urine Mucus Few /HPF 02/04/22 09:15 Urine Yeast (Budding) 2+ /HPF 02/04/22 09:15 Vancomycin Trough 28.6 ug/mL (5.0-20.0) H 02/05/22 Unknown Coronavirus (PCR) Negative (Negative) 02/02/22 10:44 SARS-CoV-2 (PCR) Negative (Negative) 02/15/22 09:39 HIV 1&2 Antibody Rapid Non react (Non React) 02/04/22 14:37 HIV P24 Antigen Non react (Non React) 02/04/22 14:37 Blood Type A POSITIVE 02/13/22 09:41 Antibody Screen Negative 02/13/22 09:41 Crossmatch See Detail 02/13/22 09:41 Gastelum/IV: Voiding Method External Female Catheter Active Medications - Current Medications Current Medications: Generic Name Dose Route Start Last Admin Trade Name Freq PRN Reason Stop Dose Admin Acetaminophen 650 mg 02/01/22 00:57 02/04/22 11:58 Acetaminophen 325 Mg Tab PO 650 mg Q4H PRN Administration Pain MILD(1-3)/Fever >100.5/ROSADO Albuterol 2.5 mg 02/01/22 00:57 Albuterol 2.5 Mg/3 Ml Nebu IH Q3HRT PRN Shortness Of Breath Lipase/Protease/Amylase 1 each 02/02/22 08:08 Lipase 10,500/Protease 25,000/Amylase 43,750 (Units) Dr Avelar FEEDTUBE PRN PRN For Clogged Feeding Tube Atorvastatin Calcium 20 mg 02/03/22 22:00 02/16/22 21:31 Atorvastatin 20 Mg Tab FEEDTUBE 20 mg QHS JAMIL Administration Clopidogrel Bisulfate 75 mg 02/19/22 10:00 Clopidogrel 75 Mg Tab FEEDTUBE QDAY JAMIL Dextrose 50 ml 02/02/22 08:00 02/14/22 18:10 Dextrose 50% In Water (25gm) 50 Ml Syringe IV 50 ml Q30MIN PRN Administration Hypoglycemia Protocol Famotidine 20 mg 02/04/22 10:00 02/17/22 09:20 Famotidine 20 Mg Tab FEEDTUBE 20 mg BID JAMIL Administration Fentanyl 50 mcg 02/02/22 09:45 02/12/22 20:00 Fentanyl 100 Mcg/2 Ml Inj IV 50 mcg Q10MIN PRN Administration ANALGESIA Fentanyl 50 mcg 02/12/22 10:11 02/12/22 17:35 Fentanyl 100 Mcg/2 Ml Inj IV 50 mcg Q2H PRN Administration VENT SYNCHRONY/AGITATION Hydrophilic Ointment 1 applic 02/01/22 18:52 02/17/22 13:52 Lip Therapy Vaseline TP 1 applic Q2HR PRN Administration Dry Lips NORepinephrine/NS 8 MG-250 ML 8 mg in 250 mls @ 3.75 mls/hr 02/01/22 20:00 02/07/22 19:18 Norepinephrine/Ns 8 Mg-250 Ml (Double Conc) IV 0 mcg/min TITRATE JAMIL 0 mls/hr Titration Protocol 2 MCG/MIN Propofol 1,000 mg in 100 mls @ 1.429 mls/hr 02/01/22 19:17 02/08/22 16:30 Diprivan 10 Mg/Ml IV 0 mcg/kg/min TITR JAMIL 0 mls/hr Titration Protocol 5 MCG/KG/MIN Fentanyl Citrate 2,000 mcg in 100 mls @ 2.381 mls/hr 02/02/22 10:00 02/16/22 22:10 Fentanyl Drip Premix IV 1 mcg/kg/hr TITR JAMIL 2.381 mls/hr Administration Protocol 1 MCG/KG/HR Phenylephrine HCl 100 mg/ 100 mls @ 3 mls/hr 02/03/22 14:15 02/07/22 19:18 Sodium Chloride IV 0 mcg/min TITR JAMIL 0 mls/hr Titration Protocol 50 MCG/MIN Sodium Chloride 500 mls @ 5 mls/hr 02/04/22 03:00 02/08/22 05:21 Nacl 0.9% 500 Ml IV 5 mls/hr DIRECT JAMIL Administration Vasopressin 20 unit/ Sodium 101 mls @ 9.09 mls/hr 02/04/22 09:15 02/07/22 19:18 Chloride IV 0 units/min TITR JAMIL 0 mls/hr Titration Protocol 0.03 UNITS/MIN Insulin Glargine 18 units 02/17/22 22:00 Insulin Glargine 100 Units/Ml SUB-Q QHS [facility] Insulin Human Regular 0 units 02/02/22 18:00 02/17/22 12:18 Insulin Regular, Human 100 Units/1 Ml SUB-Q Not Given Q6H [facility] Protocol Multi-Ingred Cream/Lotion/Oil/Oint 1 applic 02/01/22 18:52 Mineral Oil/Petrolatum, White Ophth Oint 3.5 Gm OU Q4HR PRN Dry Eye(s) Nitroglycerin 0.5 inch 02/11/22 14:00 02/17/22 13:52 Nitroglycerin 2% Oint 1 Gm TP 0.5 inch BIDNTG [facility] Administration Protocol Ondansetron HCl 4 mg 02/01/22 00:57 Ondansetron 4 Mg/2 Ml Inj IV Q8H PRN Nausea And Vomiting Prednisone 50 mg 02/16/22 10:00 02/17/22 09:19 Prednisone 50 Mg Tab FEEDTUBE 02/19/22 09:59 50 mg QDAY JAMIL Administration Prednisone 40 mg 02/20/22 10:00 Prednisone 20 Mg Tab FEEDTUBE 02/23/22 09:59 QDAY JAMIL Prednisone 30 mg 02/24/22 10:00 Prednisone 20 Mg Tab FEEDTUBE 02/27/22 09:59 QDAY JAMIL Quetiapine Fumarate 50 mg 02/09/22 10:00 02/17/22 09:20 Quetiapine 25 Mg Tab PO 50 mg BID JAMIL Administration Senna/Docusate Sodium 2 tab 02/07/22 10:00 02/17/22 09:19 Sennosides/Docusate Sodium 8.6/50 Mg Tab PO 2 tab Q12H JAMIL Administration Simple Syrup 15 ml 02/02/22 08:08 Simple Syrup 15 Ml FEEDTUBE PRN PRN Hypoglycemia Simple Syrup 30 ml 02/02/22 08:08 Simple Syrup 15 Ml FEEDTUBE PRN PRN Hypoglycemia Sodium Bicarbonate 325 mg 02/02/22 08:08 Sodium Bicarbonate 325 Mg Tab FEEDTUBE PRN PRN For Clogged Feeding Tube Sodium Chloride 10 ml 02/01/22 10:00 02/17/22 09:20 Sodium Chloride 0.9% 10 Ml Flush Syringe IV 10 ml BID JAMIL Administration Sodium Chloride 10 ml 02/01/22 00:57 02/09/22 05:59 Sodium Chloride 0.9% 10 Ml Flush Syringe IV 10 ml PRN PRN Administration LINE FLUSH Nutrition/Malnutrition Assess - Dietary Evaluation Nutrition/Malnutrition Findings: Nutrition Notes Start: 02/01/22 17:50 Freq: Status: Active Protocol: Document 02/13/22 10:51 JACQUELINE (Rec: 02/13/22 11:11 JACQUELINE [id number]) Nutrition Notes Initial or Follow up Assessment Current Diagnosis Diabetes,Sepsis,Respiratory Failure Other Pertinent Diagnosis s/p DKA, s/p PEA Arrest, Pneumonia, Pyuria, Pancytopenia, UTI, ... Current Diet TF-Glucerna 1.2 Venu @ 55 ml/hr (since L 02/04). Labs/Tests 02/13: Na 146, CO2 38, BUN 25, Crea 0.4, Glu 235, Ca 8.0. Pertinent Medications 02/13: Lantus 20U, Humulin 6U, others nutritionally unremarkable. Height 5 ft 4 in Weight 48.8 kg [place] Body Weight (kg) 54.54 BMI 18.4 Weight change and time frame 2.3 Kg body weight gain reported in 1 week. Weight Status Underweight Subjective/Other Information RD consult for TF tolerance/ continuation. TF continues as prescribed, and well tolerated, according to RN notes. Pt remains on Mechanical Ventilation, O2 saturation @ 100%, according to Physical Assessment History notes. Pt remains incontinent, according to Physical Assessment History notes. Plans for extubation on 08/11 am, according to Progress notes. Percent of energy/protein needs met: Prescribed TF-Glucerna 1.2 Venu @ 55 ml/hr provides for energy/protein needs (1584 Kcal/79 g) during LOS, 97% Kcal; 100% AA. Burn Absent Trauma Absent GI Symptoms None Difficulty In Swallowing Food Allergy No Skin Integrity/Comment Unspecified area of concern. 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 Yes Is Patient Ambulatory and/or Out of Bed No REE-([facility]-confined to bed) 1262.676 Kcal/Kg value to use for calculation 34 Approximate Energy Requirements Using 1659 kcal/Kg Calculation Used for Recommendations Kcal/kg Additional Notes Protein: 1.2-2 g/Kg ABW; 56-93 g/day. Fluids: 1 ml/Kcal, or as per MD. Nutrition Intervention Nutrition Support: Continue TF-Glucerna 1.2 Venu @ 55 ml/hr. Flush: 250 ml water Q 4 hr while hypernatremia persists, resume to 100 ml when Na is WNL. Kcal 1,584 Protein (gm) 79 Carbohydrates (gm) 151 Fat (gm) 79 Fluid (mL) 1,063 Fiber (gm) 21 % RDI: 97% Kcal; 100% AA. Goal #1 Provide at least 75% of energy /protein needs through Enteral Feeding during LOS. Follow-Up By: 02/20/22 Additional Comments Continue monitoring TF tolerance, Mechanical Ventilation, Hypernatremia, and BM. <ABDELRAHMAN MCMAHAN - Last Filed: 02/25/22 11:27> History Interval history: I saw and evaluated the patient. I agree with the findings and the plan of care as documented in the Nurse Practitioner's~note, with the following corrections and additions. Hospitalist Physical - Constitutional Vitals: Temp Pulse Resp BP Pulse Ox 100.5 F H 115 H 27 H 101/70 100 02/22/22 16:00 02/22/22 18:00 02/22/22 18:00 02/22/22 18:00 02/22/22 18:00 HEART Score - HEART Score Troponin: Troponin T < 0.010 ng/mL (0.00-0.029) 02/03/22 16:15 Results - Labs CBC & Chem 7: 02/22/22 04:00 02/22/22 04:00 Labs: Laboratory Last Values WBC 15.0 K/mm3 (4.5-11.0) H 02/22/22 04:00 RBC 3.62 M/mm3 (3.65-5.03) L 02/22/22 04:00 Hgb 7.7 gm/dl (10.1-14.3) L 02/22/22 04:00 Hct 24.8 % (30.3-42.9) L 02/22/22 04:00 MCV 68 fl (79-97) L 02/22/22 04:00 MCH 21 pg (28-32) L 02/22/22 04:00 MCHC 31 % (30-34) 02/22/22 04:00 RDW 29.9 % (13.2-15.2) H 02/22/22 04:00 Plt Count 442 K/mm3 (140-440) H 02/22/22 04:00 Lymph % (Auto) Nascar Racer 02/02/22 04:00 Add Manual Diff Complete 02/03/22 04:00 Total Counted 50 02/03/22 04:00 Seg Neutrophils % Nascar Racer 02/02/22 04:00 Seg Neuts % (Manual) 76.0 % (40.0-70.0) H 02/03/22 04:00 Band Neutrophils % 18.0 % 02/03/22 04:00 Lymphocytes % (Manual) 2.0 % (13.4-35.0) L 02/03/22 04:00 Reactive Lymphs % (Man) 0 % 02/03/22 04:00 Monocytes % (Manual) 4.0 % (0.0-7.3) 02/03/22 04:00 Eosinophils % (Manual) 0 % (0.0-4.3) 02/03/22 04:00 Basophils % (Manual) 0 % (0.0-1.8) 02/03/22 04:00 Metamyelocytes % 0 % 02/03/22 04:00 Myelocytes % 0 % 02/03/22 04:00 Promyelocytes % 0 % 02/03/22 04:00 Blast Cells % 0 % 02/03/22 04:00 Nucleated RBC % 4.0 % (0.0-0.9) H 02/03/22 04:00 Seg Neutrophils # Man 2.8 K/mm3 (1.8-7.7) 02/03/22 04:00 Band Neutrophils # 0.7 K/mm3 02/03/22 04:00 Lymphocytes # (Manual) 0.1 K/mm3 (1.2-5.4) L 02/03/22 04:00 Abs React Lymphs (Man) 0.0 K/mm3 02/03/22 04:00 Monocytes # (Manual) 0.1 K/mm3 (0.0-0.8) 02/03/22 04:00 Eosinophils # (Manual) 0.0 K/mm3 (0.0-0.4) 02/03/22 04:00 Basophils # (Manual) 0.0 K/mm3 (0.0-0.1) 02/03/22 04:00 Metamyelocytes # 0.0 K/mm3 02/03/22 04:00 Myelocytes # 0.0 K/mm3 02/03/22 04:00 Promyelocytes # 0.0 K/mm3 02/03/22 04:00 Blast Cells # 0.0 K/mm3 02/03/22 04:00 WBC Morphology Not Reportable 02/03/22 04:00 Hypersegmented Neuts Not Reportable 02/03/22 04:00 Hyposegmented Neuts Not Reportable 02/03/22 04:00 Hypogranular Neuts Not Reportable 02/03/22 04:00 Smudge Cells Not Reportable 02/03/22 04:00 Toxic Granulation Not Reportable 02/03/22 04:00 Toxic Vacuolation Not Reportable 02/03/22 04:00 Dohle Bodies Few 02/03/22 04:00 Pelger-Huet Anomaly Not Reportable 02/03/22 04:00 Sung Rods Not Reportable 02/03/22 04:00 Platelet Estimate Consistent w auto 02/03/22 04:00 Clumped Platelets Not Reportable 02/03/22 04:00 Plt Clumps, EDTA Not Reportable 02/03/22 04:00 Large Platelets Not Reportable 02/03/22 04:00 Giant Platelets Not Reportable 02/03/22 04:00 Platelet Satelliting Not Reportable 02/03/22 04:00 Plt Morphology Comment Not Reportable 02/03/22 04:00 RBC Morphology Not Reportable 02/03/22 04:00 Dimorphic RBCs Not Reportable 02/03/22 04:00 Polychromasia Not Reportable 02/03/22 04:00 Hypochromasia 3+ 02/03/22 04:00 Poikilocytosis 2+ 02/03/22 04:00 Anisocytosis 1+ 02/03/22 04:00 Microcytosis 2+ 02/03/22 04:00 Macrocytosis Not Reportable 02/03/22 04:00 Spherocytes Not Reportable 02/03/22 04:00 Pappenheimer Bodies Not Reportable 02/03/22 04:00 Sickle Cells Not Reportable 02/03/22 04:00 Target Cells 1+ 02/03/22 04:00 Tear Drop Cells Few 02/03/22 04:00 Ovalocytes Few 02/03/22 04:00 Helmet Cells Not Reportable 02/03/22 04:00 [place] Bodies Not Reportable 02/03/22 04:00 [place] Rings Not Reportable 02/03/22 04:00 [place] Cells 1+ 02/03/22 04:00 Bite Cells Not Reportable 02/03/22 04:00 Crenated Cell Not Reportable 02/03/22 04:00 Elliptocytes Few 02/03/22 04:00 Acanthocytes (Spur) Not Reportable 02/03/22 04:00 Rouleaux Not Reportable 02/03/22 04:00 Hemoglobin C Crystals Not Reportable 02/03/22 04:00 Schistocytes Rare 02/03/22 04:00 Malaria parasites Not Reportable 02/03/22 04:00 Percent Retic 0.65 % (0.78-2.58) L 02/08/22 03:55 Sven Bodies Not Reportable 02/03/22 04:00 Hem Pathologist Commnt No 02/03/22 04:00 PT 13.7 Sec. (12.2-14.9) 02/18/22 04:00 INR 0.95 (0.87-1.13) 02/18/22 04:00 APTT 29.5 Sec. (24.2-36.6) 02/16/22 04:36 Fibrinogen 795 mg/dl (211-480) H 02/05/22 08:48 ABG pH 7.463 pH Units (7.350-7.450) H 02/17/22 05:06 POC ABG pCO2 37.3 mmHg (32.0-48.0) 02/02/22 04:49 ABG pCO2 46.8 mm Hg 02/17/22 05:06 POC ABG pO2 79.9 mmHg (83-108) L 02/02/22 04:49 ABG pO2 113.6 mm Hg (80.0-90.0) H 02/17/22 05:06 POC ABG HCO3 30.3 02/02/22 04:49 ABG HCO3 32.8 mmol/L (20.0-26.0) H 02/17/22 05:06 ABG O2 Saturation 98.2 % (95.0-99.0) 02/17/22 05:06 ABG O2 Content 11.0 (0.0-44) 02/17/22 05:06 POC ABG Base Excess 7.1 02/02/22 04:49 ABG Base Excess 8.1 mmol/L (-2.0-3.0) H 02/17/22 05:06 ABG Hemoglobin 8.0 gm/dl (12.0-16.0) L 02/17/22 05:06 ABG Oxyhemoglobin 96.0 (94-98) 02/02/22 04:49 ABG Carboxyhemoglobin 1.7 % (0.0-5.0) 02/17/22 05:06 ABG Methemoglobin 0.5 % (0.0-1.5) 02/17/22 05:06 ABG Sodium Not Reportable 02/02/22 04:49 ABG Potassium Not Reportable 02/02/22 04:49 ABG Chloride Not Reportable 02/02/22 04:49 ABG Glucose Not Reportable 02/02/22 04:49 Oxyhemoglobin 96.0 % (95.0-99.0) 02/17/22 05:06 Carboxyhemoglobin 0.2 (0.5-1.5) L 02/02/22 04:49 FiO2 30 % 02/17/22 05:06 FiO2 % 60.0 02/02/22 04:49 Sodium 143 mmol/L (137-145) 02/22/22 04:00 Potassium 3.7 mmol/L (3.6-5.0) 02/22/22 04:00 Chloride 108.7 mmol/L (98-107) H 02/22/22 04:00 Carbon Dioxide 26 mmol/L (22-30) 02/22/22 04:00 Anion Gap 12 mmol/L 02/22/22 04:00 BUN 10 mg/dL (7-17) 02/22/22 04:00 Creatinine 0.4 mg/dL (0.6-1.2) L 02/22/22 04:00 Estimated GFR > 60 ml/min 02/22/22 04:00 BUN/Creatinine Ratio 25 % 02/22/22 04:00 Glucose 49 mg/dL (65-100) L 02/22/22 04:00 POC Glucose 173 mg/dL (70-105) H 02/22/22 18:19 Hemoglobin A1c 11.1 % (4-6) H 02/01/22 12:54 Lactic Acid 2.50 mmol/L (0.7-2.0) H* 02/06/22 11:50 Calcium 8.7 mg/dL (8.4-10.2) 02/22/22 04:00 Phosphorus 2.90 mg/dL (2.5-4.5) 02/22/22 11:35 Magnesium 1.70 mg/dL (1.7-2.3) 02/22/22 11:35 Total Bilirubin 0.50 mg/dL (0.1-1.2) 02/17/22 05:00 Direct Bilirubin < 0.2 mg/dL (0-0.2) 02/13/22 04:00 Indirect Bilirubin 0.1 mg/dL 02/13/22 04:00 AST 38 units/L (5-40) 02/17/22 05:00 ALT 28 units/L (7-56) 02/17/22 05:00 Alkaline Phosphatase 102 units/L (35-129) 02/17/22 05:00 Lactate Dehydrogenase 879 units/L (91-180) H 02/05/22 04:40 Troponin T < 0.010 ng/mL (0.00-0.029) 02/03/22 16:15 Total Protein 5.4 g/dL (6.3-8.2) L 02/17/22 05:00 Albumin 2.5 g/dL (3.9-5) L 02/17/22 05:00 Albumin/Globulin Ratio 0.9 % 02/17/22 05:00 Arterial Blood Glucose Not Reportable 02/02/22 04:49 Urine Color Straw (Yellow) 02/19/22 18:15 Urine Turbidity Clear (Clear) 02/19/22 18:15 Urine pH 8.0 (5.0-7.0) H 02/19/22 18:15 Ur Specific [place] 1.000 (1.003-1.030) L 02/19/22 18:15 Urine Protein 30 mg/dl mg/dL (Negative) 02/19/22 18:15 Urine Glucose (UA) Negative mg/dL (Negative) 02/19/22 18:15 Urine Ketones 5 mg/dL (Negative) 02/19/22 18:15 Urine Blood 1+ (Negative) 02/19/22 18:15 Urine Nitrite Negative (Negative) 02/19/22 18:15 Ur Reducing Substances Not Reportable 02/19/22 18:15 Urine Bilirubin Negative (Negative) 02/19/22 18:15 Urine Ictotest Not Reportable 02/19/22 18:15 Urine Urobilinogen Small mg/dL (<2.0) 02/19/22 18:15 Ur Leukocyte Esterase Negative (Negative) 02/19/22 18:15 Urine WBC (Auto) 2.0 /HPF (0.0-6.0) 02/19/22 18:15 Urine RBC (Auto) 3.0 /HPF (0.0-6.0) 02/19/22 18:15 U Epithel Cells (Auto) 1.0 /HPF (0-13.0) 02/04/22 09:15 Urine Bacteria (Auto) 1+ /HPF (Negative) 02/19/22 18:15 Urine Mucus Few /HPF 02/04/22 09:15 Urine Yeast (Budding) 2+ /HPF 02/04/22 09:15 Vancomycin Trough 28.6 ug/mL (5.0-20.0) H 02/05/22 Unknown Coronavirus (PCR) Negative (Negative) 02/02/22 10:44 SARS-CoV-2 (PCR) Negative (Negative) 02/15/22 09:39 HIV 1&2 Antibody Rapid Non react (Non React) 02/04/22 14:37 HIV P24 Antigen Non react (Non React) 02/04/22 14:37 Blood Type A POSITIVE 02/13/22 09:41 Antibody Screen Negative 02/13/22 09:41 Crossmatch See Detail 02/13/22 09:41 Microbiology: Microbiology 02/19/22 14:51 Peripheral/Venous Blood Culture - Final NO GROWTH AFTER 5 DAYS 02/19/22 14:51 Peripheral/Venous Blood Culture - Final NO GROWTH AFTER 5 DAYS 02/19/22 18:43 Tracheal Aspirate Sputum Culture - Final Gastelum/IV: Voiding Method External Female Catheter Nutrition/Malnutrition Assess - Dietary Evaluation Nutrition/Malnutrition Findings: Nutrition Notes Start: 02/01/22 17:50 Freq: Status: Discharge Protocol: Document 02/19/22 14:47 JACQUELINE (Rec: 02/19/22 15:20 JACQUELINE [id number]) Nutrition Notes Need for Assessment generated from: Low BMI Initial or Follow up Reassessment Current Diagnosis Diabetes,Sepsis,Respiratory Failure Other Pertinent Diagnosis s/p DKA, s/p PEA Arrest, Pneumonia, Pyuria, Pancytopenia, UTI, ... Current Diet TF-Glucerna 1.2 Venu @ 55 ml/hr (since D 02/18). Labs/Tests 02/19: Crea 0.3, Glu 143. Pertinent Medications 02/19: D10w @ 42 ml/hr, others nutritionally unremarkable. Height 5 ft 4 in Weight 47 kg [place] Body Weight (kg) 54.54 BMI 17.7 Weight change and time frame 1.8 Kg body weight loss in 1 week reported. Weight Status Underweight Subjective/Other Information RD consult for routine F/U on TF tolerance/continuation, and Low BMI assessment. TF continues as prescribed, but currently on hold, due to vomiting episode after PEG placement, according to RN notes. Pt remains on Mechanical Ventilation, O2 saturation @ 100%, according to Physical Assessment History notes. PEG-tube placement on 02/18, well tolerated, according to Operative Report notes. Pt's Low BMI seems to correspond to a natural body composition, and not related to a sudden loss of body weight nor chronic malnutrition, since no signs of concern were mentioned in the Physical Assessment History or the Progress notes. Percent of energy/protein needs met: Prescribed TF-Glucerna 1.2 Venu @ 55 ml/hr provides for energy/protein needs (1584 Kcal/79 g) during LOS, 97% Kcal; 100% AA. Burn Absent Trauma Absent GI Symptoms Vomiting Difficulty In Swallowing Food Allergy No Skin Integrity/Comment Unspecified area of concern. 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 Yes Is Patient Ambulatory and/or Out of Bed No REE-([facility]-confined to bed) 1241.100 Kcal/Kg value to use for calculation 34 Approximate Energy Requirements Using 1598 kcal/Kg Calculation Used for Recommendations Kcal/kg Additional Notes Protein: 1.2-2 g/Kg ABW; 56-93 g/day. Fluids: 1 ml/Kcal, or as per MD. Nutrition Intervention Nutrition Support: Continue TF-Glucerna 1.2 Venu @ 55 ml/hr. Flush: 100 ml water Q 4 hr, or as per MD. Kcal 1,584 Protein (gm) 79 Carbohydrates (gm) 151 Fat (gm) 79 Fluid (mL) 1,063 Fiber (gm) 21 % RDI: 97% Kcal; 100% AA. Goal #1 Provide at least 75% of energy /protein needs through Enteral Feeding during LOS. Follow-Up By: 03/05/22 Additional Comments Continue monitoring TF tolerance, Mechanical Ventilation, and BM.
[2022-02-17] MEDS: INSULIN GLARGINE 100 UNITS/ML SUB-Q SCH (21:52)
[2022-02-18] MEDS: INSULIN REGULAR, HUMAN 100 UNITS/1 ML SUB-Q SCH ×4 (01:10→18:12)
[2022-02-18 05:13] LABS: Blood Urea Nitrogen 20 mg/dL (7-17); Calcium 8.4 mg/dL (8.4-10.2); Hemolysis Index 2
[2022-02-18 05:34] LABS: Hematocrit 27.3 % (30.3-42.9); Hemoglobin 8.3 gm/dl (10.1-14.3); Mean Corpuscular HGB Conc 30 % (30-34); Mean Corpuscular Volume 71 fl (79-97); Platelet Count 439 K/mm3 (140-440); Red Blood Count 3.87 M/mm3 (3.65-5.03)
[2022-02-18 05:37] LABS: INR 0.95 (0.87-1.13)
[2022-02-18 05:57] LABS: BUN/Creatinine Ratio 67
[2022-02-18 06:10] LABS: Red Cell Distribution Width 30.5 % (13.2-15.2)
[2022-02-18] MEDS: NITROGLYCERIN 2% OINT 1 GM TP SCH ×2 (06:23→15:38)
--- NOTE | 2022-02-18 08:37 | Progress Note ---
Assessment and Plan Patient has previously undergone cardiac evaluation including echocardiogram which did not demonstrate any thrombus. Patient will need to be scheduled for CTA of the chest abdomen pelvis to determine potential source for thrombus given the development of upper extremity ischemic changes. Additionally, will order a arterial duplex of her left arm today. Ultimately, the patient will require revascularization however, she will require medical optimization. Subjective Date of service: 02/18/22 Principal diagnosis: DKA, s/p cardiopulmonary arrest Interval history: Patient with a history of medical noncompliance, recurrent DKA who presented in DKA with subsequent cardiac arrest. Patient is scheduled for trach and PEG today. Bilateral lower extremities demonstrate dusky discoloration to her toes bilaterally with coolness of her right forefoot. Additionally, the patient has eschar involving the distal phalanges of her left upper extremity second digit. Objective - Constitutional Vitals: Vital Signs - 12hr 02/17/22 02/17/22 02/17/22 21:00 22:00 23:00 Temperature Pulse Rate 104 H 105 H 107 H Pulse Rate [ From Monitor] Respiratory 15 19 19 Rate Blood Pressure 130/87 137/84 137/84 O2 Sat by Pulse 100 100 100 Oximetry 02/17/22 02/17/22 02/18/22 23:26 23:51 00:00 Temperature 98.7 F Pulse Rate 104 H 107 H Pulse Rate [ 109 H From Monitor] Respiratory 19 22 Rate Blood Pressure 149/92 148/85 O2 Sat by Pulse 100 99 Oximetry 02/18/22 02/18/22 02/18/22 00:07 01:00 02:00 Temperature Pulse Rate 104 H 104 H 101 H Pulse Rate [ From Monitor] Respiratory 21 21 Rate Blood Pressure 148/85 137/86 139/86 O2 Sat by Pulse 100 100 100 Oximetry 02/18/22 02/18/22 02/18/22 03:00 03:44 04:00 Temperature 98.8 F Pulse Rate 107 H 99 H Pulse Rate [ 101 H From Monitor] Respiratory 23 19 Rate Blood Pressure 163/106 141/89 O2 Sat by Pulse 100 100 Oximetry 02/18/22 02/18/22 02/18/22 04:09 05:00 06:00 Temperature Pulse Rate 104 H 104 H 98 H Pulse Rate [ From Monitor] Respiratory 23 13 Rate Blood Pressure 148/85 167/109 140/83 O2 Sat by Pulse 100 100 100 Oximetry 02/18/22 02/18/22 02/18/22 06:23 07:00 07:28 Temperature 98.2 F Pulse Rate 96 H 105 H Pulse Rate [ From Monitor] Respiratory 22 Rate Blood Pressure 140/83 133/89 O2 Sat by Pulse 97 Oximetry 02/18/22 02/18/22 07:53 08:00 Temperature Pulse Rate 94 H 105 H Pulse Rate [ 101 H From Monitor] Respiratory 24 Rate Blood Pressure 140/90 O2 Sat by Pulse 100 Oximetry General appearance: Present: disheveled - Labs CBC & Chem 7: 02/18/22 04:00 02/18/22 04:00 Labs: Abnormal lab results 02/17/22 02/17/22 02/17/22 Range/Units 11:18 16:41 21:51 WBC (4.5-11.0) K/mm3 Hgb (10.1-14.3) gm/dl Hct (30.3-42.9) % MCV (79-97) fl MCH (28-32) pg RDW (13.2-15.2) % Carbon Dioxide (22-30) mmol/L BUN (7-17) mg/dL Creatinine (0.6-1.2) mg/dL Glucose (65-100) mg/dL POC Glucose 135 H 248 H 266 H (70-105) mg/dL 02/17/22 02/18/22 02/18/22 Range/Units 23:38 01:04 04:00 WBC 14.8 H (4.5-11.0) K/mm3 Hgb 8.3 L (10.1-14.3) gm/dl Hct 27.3 L (30.3-42.9) % MCV 71 L (79-97) fl MCH 22 L (28-32) pg RDW 30.5 H (13.2-15.2) % Carbon Dioxide (22-30) mmol/L BUN (7-17) mg/dL Creatinine (0.6-1.2) mg/dL Glucose (65-100) mg/dL POC Glucose 287 H 272 H (70-105) mg/dL 02/18/22 02/18/22 Range/Units 04:00 05:38 WBC (4.5-11.0) K/mm3 Hgb (10.1-14.3) gm/dl Hct (30.3-42.9) % MCV (79-97) fl MCH (28-32) pg RDW (13.2-15.2) % Carbon Dioxide 32 H (22-30) mmol/L BUN 20 H (7-17) mg/dL Creatinine 0.3 L (0.6-1.2) mg/dL Glucose 132 H (65-100) mg/dL POC Glucose 117 H (70-105) mg/dL Medications & Allergies - Medications Allergies/Adverse Reactions: Allergies No Known Allergies Allergy (Verified 01/31/22 17:55) Home Medications: Home Medications Medication Instructions Recorded Confirmed Last Taken Type Ergocalciferol [Vitamin D2] 1 cap PO QWEEK 02/02/22 02/02/22 Unknown History Famotidine [Pepcid] 20 mg PO DAILY 02/02/22 02/02/22 Unknown History Insulin Glargine [Lantus VIAL] 5 unit SUB-Q BID 02/02/22 02/02/22 Unknown Histor y Loratadine [Claritin] 10 mg PO DAILY 02/02/22 02/02/22 Unknown History Mirtazapine [Remeron] 15 mg PO HS 02/02/22 02/02/22 Unknown History Rosuvastatin Calcium [Crestor] 10 mg PO HS 02/02/22 02/02/22 Unknown History carvediloL [Coreg] 3.125 mg PO BID 02/02/22 02/02/22 Unknown History Active Medications: Generic Name Dose Route Start Last Admin Trade Name Freq PRN Reason Stop Dose Admin Acetaminophen 650 mg 02/01/22 00:57 02/04/22 11:58 Acetaminophen 325 Mg Tab PO 650 mg Q4H PRN Administration Pain MILD(1-3)/Fever >100.5/ROSADO Albuterol 2.5 mg 02/01/22 00:57 Albuterol 2.5 Mg/3 Ml Nebu IH Q3HRT PRN Shortness Of Breath Lipase/Protease/Amylase 1 each 02/02/22 08:08 Lipase 10,500/Protease 25,000/Amylase 43,750 (Units) Dr Avelar FEEDTUBE PRN PRN For Clogged Feeding Tube Atorvastatin Calcium 20 mg 02/03/22 22:00 02/17/22 21:53 Atorvastatin 20 Mg Tab FEEDTUBE 20 mg QHS JAMIL Administration Clopidogrel Bisulfate 75 mg 02/19/22 10:00 Clopidogrel 75 Mg Tab FEEDTUBE QDAY JAMIL Dextrose 50 ml 02/02/22 08:00 02/14/22 18:10 Dextrose 50% In Water (25gm) 50 Ml Syringe IV 50 ml Q30MIN PRN Administration Hypoglycemia Protocol Famotidine 20 mg 02/04/22 10:00 02/17/22 21:53 Famotidine 20 Mg Tab FEEDTUBE 20 mg BID JAMIL Administration Fentanyl 50 mcg 02/02/22 09:45 02/12/22 20:00 Fentanyl 100 Mcg/2 Ml Inj IV 50 mcg Q10MIN PRN Administration ANALGESIA Fentanyl 50 mcg 02/12/22 10:11 02/12/22 17:35 Fentanyl 100 Mcg/2 Ml Inj IV 50 mcg Q2H PRN Administration VENT SYNCHRONY/AGITATION Hydrophilic Ointment 1 applic 02/01/22 18:52 02/17/22 13:52 Lip Therapy Vaseline TP 1 applic Q2HR PRN Administration Dry Lips NORepinephrine/NS 8 MG-250 ML 8 mg in 250 mls @ 3.75 mls/hr 02/01/22 20:00 02/07/22 19:18 Norepinephrine/Ns 8 Mg-250 Ml (Double Conc) IV 0 mcg/min TITRATE JAMIL 0 mls/hr Titration Protocol 2 MCG/MIN Propofol 1,000 mg in 100 mls @ 1.429 mls/hr 02/01/22 19:17 02/08/22 16:30 Diprivan 10 Mg/Ml IV 0 mcg/kg/min TITR JAMIL 0 mls/hr Titration Protocol 5 MCG/KG/MIN Fentanyl Citrate 2,000 mcg in 100 mls @ 2.381 mls/hr 02/02/22 10:00 02/16/22 22:10 Fentanyl Drip Premix IV 1 mcg/kg/hr TITR JAMIL 2.381 mls/hr Administration Protocol 1 MCG/KG/HR Phenylephrine HCl 100 mg/ 100 mls @ 3 mls/hr 02/03/22 14:15 02/07/22 19:18 Sodium Chloride IV 0 mcg/min TITR JAMIL 0 mls/hr Titration Protocol 50 MCG/MIN Sodium Chloride 500 mls @ 5 mls/hr 02/04/22 03:00 02/08/22 05:21 Nacl 0.9% 500 Ml IV 5 mls/hr DIRECT JAMIL Administration Vasopressin 20 unit/ Sodium 101 mls @ 9.09 mls/hr 02/04/22 09:15 02/07/22 19:18 Chloride IV 0 units/min TITR JAMIL 0 mls/hr Titration Protocol 0.03 UNITS/MIN Insulin Glargine 18 units 02/17/22 22:00 02/17/22 21:52 Insulin Glargine 100 Units/Ml SUB-Q 18 units QHS JAMIL Administration Insulin Human Regular 0 units 02/02/22 18:00 02/18/22 06:17 Insulin Regular, Human 100 Units/1 Ml SUB-Q Not Given Q6H [facility] Protocol Multi-Ingred Cream/Lotion/Oil/Oint 1 applic 02/01/22 18:52 Mineral Oil/Petrolatum, White Ophth Oint 3.5 Gm OU Q4HR PRN Dry Eye(s) Nitroglycerin 0.5 inch 02/11/22 14:00 02/18/22 06:23 Nitroglycerin 2% Oint 1 Gm TP 0.5 inch BIDNTG JAMIL Administration Protocol Ondansetron HCl 4 mg 02/01/22 00:57 Ondansetron 4 Mg/2 Ml Inj IV Q8H PRN Nausea And Vomiting Prednisone 50 mg 02/16/22 10:00 02/17/22 09:19 Prednisone 50 Mg Tab FEEDTUBE 02/19/22 09:59 50 mg QDAY JAMIL Administration Prednisone 40 mg 02/20/22 10:00 Prednisone 20 Mg Tab FEEDTUBE 02/23/22 09:59 QDAY JAMIL Prednisone 30 mg 02/24/22 10:00 Prednisone 20 Mg Tab FEEDTUBE 02/27/22 09:59 QDAY JAMIL Quetiapine Fumarate 50 mg 02/09/22 10:00 02/17/22 21:53 Quetiapine 25 Mg Tab PO 50 mg BID JAMIL Administration Senna/Docusate Sodium 2 tab 02/07/22 10:00 02/17/22 21:53 Sennosides/Docusate Sodium 8.6/50 Mg Tab PO 2 tab Q12H JAMIL Administration Simple Syrup 15 ml 02/02/22 08:08 Simple Syrup 15 Ml FEEDTUBE PRN PRN Hypoglycemia Simple Syrup 30 ml 02/02/22 08:08 Simple Syrup 15 Ml FEEDTUBE PRN PRN Hypoglycemia Sodium Bicarbonate 325 mg 02/02/22 08:08 Sodium Bicarbonate 325 Mg Tab FEEDTUBE PRN PRN For Clogged Feeding Tube Sodium Chloride 10 ml 02/01/22 10:00 02/17/22 21:52 Sodium Chloride 0.9% 10 Ml Flush Syringe IV 10 ml BID JAMIL Administration Sodium Chloride 10 ml 02/01/22 00:57 02/09/22 05:59 Sodium Chloride 0.9% 10 Ml Flush Syringe IV 10 ml PRN PRN Administration LINE FLUSH HEART Score - HEART Score Troponin: Troponin T < 0.010 ng/mL (0.00-0.029) 02/03/22 16:15
--- NOTE | 2022-02-18 09:43 | Event Note ---
Date: 02/18/22 Preop note: Patient chart reviewed. no acute changes. Vent settings unchanged. Labs ok. Spoke with patient's daughter Bridget Jackson. She did not have any questions and was still agreeable to proceed with trach/peg. Patient NPO and tentatively on schedule for today at 1130am. Patient's daughter updated.
[2022-02-18] MEDS ORDERED: BUPIVACAINE/PF (0.25%) 2.5 MG/ML 30 ML VIAL INFILTRATI ONE (09:59)
[2022-02-18] MEDS ORDERED: WATER FOR IRRIG STERILE 250 ML BOTTLE IR ONE (10:03)
--- NOTE | 2022-02-18 10:17 | Anesthesia Consultation ---
<BRET DAMON - Last Filed: 02/18/22 10:12> Anesthesia Consult and Med Hx Date of service: 02/18/22 - Airway Intubation Access Assessment: Possibly Difficult (ETT in situ in ICU) - Pulmonary Exam CTA: Yes - Cardiac Exam Cardiac Exam: RRR - Pre-Operative Health Status ASA Pre-Surgery Classification: ASA4 - Pulmonary Hx Smoking: No Hx Respiratory Symptoms: Yes (admission with intubation s/p cardiopulmonary arrest. ) Hx Sleep Apnea: No - Cardiovascular System Hx Hypertension: Yes Hx Pacemaker: No Hx Internal Defibrillator: No - Gastrointestinal Hx Ulcer: No Hx Gastroesophageal Reflux Disease: No - Endocrine Hx Renal Disease: No Hx Liver Disease: No Hx Insulin Dependent Diabetes: Yes (h/o multiple admissions for DKA. ) - Hematic Hx Anemia: Yes - Other Systems Hx Alcohol Use: No Hx Obesity: Yes - Additional Comments Anesthesia Medical History Comments: No GAC. No FHAC. <PHILIP LAIRD - Last Filed: 02/18/22 12:58> Anesthesia Consult and Med Hx - Additional Comments Anesthesia Medical History Comments: PMH HTN, DM, dementia presenting on 01/31 w/ DKA w/ PEA arrest shortly thereafter. Attempted extubation on 02/14 but reintubated same day 2/2 increased WOB. Now scheduled for trach/PEG. FiO2 30%, Peep 6, HD stable off pressors for several days.
--- NOTE | 2022-02-18 10:21 | Anesthesia Day of Surgery ---
Anesthesia Day of Surgery - Day of Surgery Patient Examined: Yes Patient H&P Reviewed: Yes Patient is NPO: Yes
[2022-02-18] MEDS ORDERED: ROCURONIUM 50 MG/5 ML INJ IV ONE (11:35)
--- NOTE | 2022-02-18 11:57 | Progress Note ---
Assessment and Plan Cultures: 01/31/2022 blood culture: No growth 02/01/2022 tracheal aspirate culture: Klebsiella pneumoniae COVID-19 PCR: Negative 02/04/2022 blood culture: no growth so far 02/04/2022 urine culture: No growth 02/04/2022 fungal blood culture: no growth so far A/P: 61-year-old female was admitted from [facility] with hypoglycemia: #Refractory septic shock, severe acidosis, s/p PEA arrest on 02/01/2022. #Bilateral pneumonia: Probably aspiration following PEA arrest. Initial chest x -ray did not show any pneumonia. Now with severe b/l pneumonia, treated with abx. #Possible UTI: UA showed pyuria #Acute hypoxic respiratory failure with ARDS: reintubated 02/15/2022 #Diabetic ketoacidosis on admission #Pancytopenia, neutropenia, thrombocytopenia: ?sepsis. Seen by hematology. HIV negative. Gradually improving. Recs: -continue off antibiotics -awaiting trach/PEG later today Will sign off. Please call with questions. Doroteo Morales MD, FACP, [facility] ([facility] O: [phone] F: [phone] C: [phone] Subjective Date of service: 02/18/22 Principal diagnosis: DKA, s/p cardiopulmonary arrest Interval history: Afebrile. Remains on the vent, no issues per RN. Awaiting trach and PEG. Objective - Exam Narrative Exam: Physical Exam: Constitutional: sedated, intubated, on the vent Head, Ears, Nose: Normocephalic, atraumatic. External ears, nose normal Eyes: Conjunctivae/corneas clear. No icterus. No ptosis. Neck: intubated Oral: intubated Cardiovascular: S1, S2 + Respiratory: AE fair bilaterally and equal GI: Soft, bowel sounds + Musculoskeletal: No pedal edema, no cyanosis. Skin: No rash or abscess Hem/Lymphatic: No palpable cervical or supraclavicular nodes. No lymphangitis Psych: no agitation Neurological: sedated, intubated, on the vent, exam limited - Constitutional Vitals: Vital Signs Temp Pulse Resp BP Pulse Ox 97.2 F L 90 12 125/81 100 02/18/22 11:46 02/18/22 11:00 02/18/22 11:00 02/18/22 11:00 02/18/22 11:00 Temperature -Last 24 Hours Temperature 97.2 F Temperature 98.2 F Temperature 98.8 F Temperature 98.7 F Temperature 99.2 F Temperature 99.2 F Temperature 98.0 F Temperature 97.7 F - Labs CBC & Chem 7: 02/18/22 04:00 02/18/22 04:00 Labs: Abnormal lab results 02/17/22 02/17/22 02/17/22 Range/Units 16:41 21:51 23:38 WBC (4.5-11.0) K/mm3 Hgb (10.1-14.3) gm/dl Hct (30.3-42.9) % MCV (79-97) fl MCH (28-32) pg RDW (13.2-15.2) % Carbon Dioxide (22-30) mmol/L BUN (7-17) mg/dL Creatinine (0.6-1.2) mg/dL Glucose (65-100) mg/dL POC Glucose 248 H 266 H 287 H (70-105) mg/dL 02/18/22 02/18/22 02/18/22 Range/Units 01:04 04:00 04:00 WBC 14.8 H (4.5-11.0) K/mm3 Hgb 8.3 L (10.1-14.3) gm/dl Hct 27.3 L (30.3-42.9) % MCV 71 L (79-97) fl MCH 22 L (28-32) pg RDW 30.5 H (13.2-15.2) % Carbon Dioxide 32 H (22-30) mmol/L BUN 20 H (7-17) mg/dL Creatinine 0.3 L (0.6-1.2) mg/dL Glucose 132 H (65-100) mg/dL POC Glucose 272 H (70-105) mg/dL 02/18/22 02/18/22 02/18/22 Range/Units 05:38 11:27 11:29 WBC (4.5-11.0) K/mm3 Hgb (10.1-14.3) gm/dl Hct (30.3-42.9) % MCV (79-97) fl MCH (28-32) pg RDW (13.2-15.2) % Carbon Dioxide (22-30) mmol/L BUN (7-17) mg/dL Creatinine (0.6-1.2) mg/dL Glucose (65-100) mg/dL POC Glucose 117 H 44 L 50 L (70-105) mg/dL 02/18/22 Range/Units 11:49 WBC (4.5-11.0) K/mm3 Hgb (10.1-14.3) gm/dl Hct (30.3-42.9) % MCV (79-97) fl MCH (28-32) pg RDW (13.2-15.2) % Carbon Dioxide (22-30) mmol/L BUN (7-17) mg/dL Creatinine (0.6-1.2) mg/dL Glucose (65-100) mg/dL POC Glucose 216 H (70-105) mg/dL
[2022-02-18] MEDS ORDERED: SODIUM CHLORIDE 0.9% 1000 ML 1,000 ML ONE (13:01)
--- NOTE | 2022-02-18 13:12 | Operative Report ---
Operative Report Operative Report: Date of surgery: 02/19/2020 Preoperative diagnosis: Vent dependence Postoperative diagnosis: Same as above Procedure: Percutaneous tracheostomy Surgeon: Tracy Palomino DO Anesthesia: Geta, local Findings: Good placement of tracheostomy as visualized by fiberoptic bronchoscopy EBL: LESS than 5 cc Specimen: None Complications: None Disposition: Stable to ICU HPI and indication: Patient is a 61-year-old female who presented to the hospital with altered mental status, DKA. During the hospitalization the patient experienced a PEA arrest. She was intubated. The patient was weaned from the ventilator and extubated however became apneic and had to be reintubated. As she is unable to be weaned from the ventilator, commercial assistant team requested tracheostomy and PEG tube placement. All risk, benefits, alternatives to the procedure were discussed with the patient's daughter/NOK and questions answered. Family meeting was also conducted earlier in the hospitalization and the family agreed to proceed with all aggressive measures including tracheostomy and PEG tube. Consent obtained for tracheostomy and PEG tube placement. Procedure in detail: The patient was identified in the ICU and brought down to the operating room and positioned in supine position in the hospital bed. Consent was verified on the chart timeout was performed. The neck was prepped and draped in usual sterile fashion. Anesthesia was administered. A shoulder roll was placed, with the patient's neck mildly hyperextended.. Anesthesia provider performed fiberoptic bronchoscopy throughout the entire procedure. The fiberoptic bronchoscope was inserted by Dr. Graham through the endotracheal tube via the adapter and the trachea examined - please see separate procedure note. The trachea was unremarkable. 1% lidocaine was infiltrated into the skin and subcutaneous tissue approximately 2 fingerbreadths above the sternal notch. A 2 cm incision was made in a horizontal fashion using a 15 blade. Using a hemostat the soft tissues were bluntly dissected until the trachea was encountered. The ET tube was then pulled back slowly about 16cm. Using the introducer needle, the trachea was entered under direct visualization. The wire was passed down the trachea towards the kathy. Introducer needle was then removed. The trachea was then serially dilated, after which a 8 [place] Shiley tracheostomy tube was inserted. The balloon was visualized via fiberoptic bronchoscopy. The balloon was inflated, patient placed back on ventilator. There was end-tidal CO2 detected and tidal volumes assessed which were satisfactory. The bronchoscope was then placed through the tracheostomy and showed good positioning of the tracheostomy approximately 4 to 5 cm above the kathy and no bleeding. A drain sponge was placed between the skin and tracheostomy. The tracheostomy was secured to the patient's neck using interrupted 2-0 Prolene sutures through the flanges and a tracheostomy strap. A post op chest x-ray is pending. The patient tolerated the procedure well. All sharps were disposed of appropriately. PEG tube was performed Please see separate note. The patient was taken back to the ICU in stable condition.
--- NOTE | 2022-02-18 13:23 | Progress Note ---
<NICOLA TREVINO - Last Filed: 02/19/22 22:12> Assessment and Plan Assessment and plan: This is a 61-year-old female with known past medical history of DM, dementia, HLD, and HTN initially admitted for Hypoglycemia then went into DKA and was transferred to the ICU where she PEA arrested on 02/01. Patient is now with septic shock and on ventilatory support. Hospital Course to Date: 02/01: patient was transferred to ICU as lab work was consistent with DKA and started on insulin drip. Central line placed for IV access. Patient was given bicarb push and started on a bicarb drip. She was also started on Rocephin due to UTI however antibiotics are broadened to cefepime and vancomycin. 02/02: s/p cardiac arrest on 02/01. Bicarbonate drip discontinued. Pancytopenia noted, anion gap closed and transitioned to SSI and long-acting insulin. Patient was having hypoglycemia this morning which has been corrected now. Started on tube feeding. Potassium and phosphorus will be repleted. Hype rnatremia noted and FWF started with tube feedings. COVID-19 PCR pending. Venous Doppler ultrasound pending. Neurology and cardiology consulted. Echocardiogram pending. Patient currently on Levophed and sedated with propofol. Fentanyl added. Given 1 LR bolus this morning for hypotension. 02/03: LR bolus x2, remains on levophed, tachycardia and EKG completed which shows tachycardia. Increase in FiO2, Will culture with next temp spike. Will give 1 gm Calcium Gluconate. 02/04: S/p Bronch this am by [facility] at the bedside. Patient still spiking high temp despite broad spectrum IV Abx. Remains on high pressors with worsen neutropenia and thrombocytopenia. Will panculture this am, antifungal culture was also ordered. Continue current empiric IV Abx for now, awaiting sensitivity. Will also consult ID for further eval. Possible Hematology consult for pancytopenia per CCM. Possible family meeting with [facility] this week, case management to arrange. 02/05: Back up on full support on the vent. CXR with worsen bilateral opacities, S/p X1 dose of IV lasix. Patient also received 1units of PRBCs overnight due to anemia, H&H stable this am and no s/s of any active bleeding. Patient remains pancytopenic, still febrile. IV abx changed to Merrem and Vanc per ID, hematology consult pending. ST with episodes of SVT this am, plan for amiodarone gtt per Cardio. Off pressors this am. BP remains boderline, 25% IV Albumin and X1 dose of additional IV lasix gain today per CCM. Continue FWF for hypernatremi a. Lantus adjusted due to hypoglycemia. Possible family meeting tomorrow with [facility]. 8/3: Decompensated this am, sudden drop in SPO2 in the 80s, HR in the 50s, and MAP in the 40s. Back on 2 pressors, on 100% FIO2 and 12 of peep. Stat ABG pending, 1amp Bcarb given, stress dose steroids initiated. This an CXR reviewed with worsen opacities from prior. Patient remains on IV abx per ID. Hematology recommendations appreciated. Event discussed with [facility] who agreed with current intervention. Patient's daughter and sister were notified via phone. Current events, patient's diagnosis, overal condition, and poor prognosis were thoroughly discussed. GOC was also addressed with patient's daughter and sister, they voiced that if patient was able to speak for herself she would want all lifesaving measures, including CPR and medications if her heart stop. All questions and concerns were addressed at this time. They verbalized understanding and agreed with current care plan. Patient remains a FULL code status at This time. 84: Responded well to IV lasix and albumin overnight. CXR with some improvement today. IV lasix and albumin gain today per CCM. With increased WOB and tachpnea this am, low dose propofol added for RASS goal of 0 to -2. Wean FIO2 as tolerated for SPO2 goal above 92%. Worsen hyperglycemia this am, most like due to IV steroids, insulin therapy adjusted. Monitor and replace electrolytes as needed. Family meeting today with [facility], patient remains a FULL code status. 85: Tolerating gentle diurese. Patient missed overnight IV lasix/albumin dose, will repeat another dose this morning. Continue to wean Fio2 as tolerated. Remains off pressors, VSS. Concern for BLE ischemia probably due to hypoperfusion vs pressor use. Will check BLE arterial doppler to r/o occlusion. Possible Vascular Surgery consult dependent on doppler result. Lantus adjusted for persisting hyperglycemia. Electrolytes repleted, monitor and replace electrolytes as needed. 86: This am ABG and CXR with some improvement this am. Down to 55% Fio2 this am. Hypotensive overnight required short duration of Levophed gtt, pressor is off this am. Will hold on IV diuretic today. Continue to monitor for now. Electrolytes repleted, monitor and replace electrolytes as needed. Prior history of psych issues, seroquel added BID. BLE doppler pending. 02/10: Remains stable on the vent. Down to 40% Fio2 and peep of 10 this am, SPO2 above 95%, CXR is unchanged. Continue vent wean as tolerated. Remains on IV steroid, will start tapering tomorrow. Per [facility], plan is to optimize patient on the vent for possible trach and PEG. FWF increased for persistent hypernatremia. K and phos repleted. Continue to monitor and replace electrolytes as needed. 02/11: Water flush continued at 300 mL every 4, potassium repleted, remains on vasopressors. No acute events reported overnight. intiate seriod taper 02/12: Patient being weaned down IV fentanyl pushes ordered, Lantus decreased, decreased PEEP and RT placed on pressure support this afternoon. No acute events overnight. 02/13: Patient attempted on PSV again today, steroids continue to be tapered. Tentative extubation tomorrow was supplanted by [facility]. Patient only lasted 3 hours again today. Vascular surgery consult completed and recommended plavix. 02/14: Patient was extubated today to nasal cannula. This afternoon she was started on high flow nasal cannula. No acute events reported overnight. Steroids tapered. Femoral A-line removed. 02/15: No acute events reported overnight. Surgery consulted for trach/PEG.. COVID-[address] abdomen/pelvis pending. Possible trach/PEG placement on 02/18. 02/16: PICC line to be placed today. Given 1 dose of albumin with Lasix. Discontinue CVL. No acute events reported overnight. 02/17: No acute events reported overnight, now bilateral lower extremities with discoloration. Plavix scheduled to start Friday. PEG/trach scheduled for Friday. PICC line consent obtained. lantus adjusted. CPAP today. 02/18: KYLAH overnight. Plan for trach and PEG today by General Surgery in OR. Worsen LE ischemia noted, pending CTA chest/Abd/pelvis. Vascular Surgery is also following. Assessment and Plan #Septic Shock #Supraventricular Tachycardia(SVT) #S/p PEA Arrest with ROSC #H/o HTN, HLD - Coded in the ICU on 02/01, PEA arrest - ROSC achieved post 1amp of bcarb and EPI - With tachycardia, persistent fevers, s/p multiple pressors - off pressors this am. ST on the monitor, VSS - On Stress dose steroids, will start tapering tomorrow - Echo reviewed, EF 55-60%, see report for detail - Cardiology consulted, appreciated recommendations - amiodarone gtt transitioned to PO per Cardio - Continue blood pressure monitor per protocol - Pressor on standby for MAP less than 65 #Acute Hypoxic Respiratory Failure #ARDS #Bilateral Pneumonia - Intubated during code on 02/01 - This am CXR with worsening bilateral airspace opacities - 02/04 s/p Bronchoscopy at the bedside by [facility]- BAL sent to lab - Vent setting: PRVC-30%,6,12,350 - ABG and this am CXR with some improvement - s/p albumin and IV lasix - CCM consulted, appreciate recommendations - Continue IV Abx, IV steroids, and Nebs per CCM - Continue vent wean per CCM - VAP bundle addressed - Aspiration precaution HOB above 30 - Daily ABG and CXR - Continue SPO2 monitoring for SPO2 goal above 92% - Per CCM, plan is to optimize patient on the vent for possible trach and PEG #Septic Shock #Bilateral Pneumonia #Urinary Tract Infection(UTI) - With high fevers, neutropenia, thrombocytopenia, tachycardia, and hypotensive on multiple pressors - UA consistent with pyuria, Blood cultures with NGTD, Sputum culture with Klebsiella Pneumoniae - BLE doppler negative for DVT - repeat cultures with NGTD - ID consulted, appreciate recommendations - Leukocytosis most likely due to IV Steroids - Continue IV Abx per ID- [id number] until 02/11 per ID - f/u on culture - Monitor CBC and temperature curve #Pancytopenia-improved #Microcytic Anemia - Significant drop of WBCs and Plt count from admit - Probably due to septic shock, on IV Abx per ID - S/p 2unit PRBCs - No s/s of active bleeding, H&H stable this am - Continue to trend CBC - Hold AC for now - Hematology consulted, appreciate recommendations #Acute Metabolic Encephalopathy #h/o Dementia and Psych Issues - Intubated and Sedated- on fentanyl - Titrate sedations for RASS goal of 0 to -2 - Seroquel added BID - Daily SAT and SBT per CCM - Avoid benzodiazepine to reduce the possibility of delirium - PRN Analgesia for CPOT greater than 3 - Maintenance of sleep-wake cycle - Neurology consulted, appreciate recommendations #Hypokalemia #Hypernatremia - Strict intake and output - Avoid nephrotoxic medications - Monitor and replace electrolytes as needed #Concern for BLE Ischemia - probably due to hypoperfusion vs pressor use. - BLE arterial doppler noted - Vascular Surgery consulted - CTA chest/Abd/Pelvis pending #Type 2 Diabetes mellitus #S/p DKA - initially presented with hypoglycemia then went into DKA - s/p DKA protocol - Hemoglobin A1c 11.1 - Now with hyperglycemia, most likely due to IV steroids - Continue BG and SSI Q6hrs and Lantus qHs- increased - Avoid Hypoglycemia #GI/DVT Prophylaxis - PPI- Pepcid - SCDs to bilateral lower extremities while in bed #Advance Care Planning - Patient's diagnosis, overal condition, and poor prognosis were thoroughly disc ussed. GOC was also addressed with patient's daughter and sister, they voiced that if patient was able to speak for herself she would want all lifesaving measures, including CPR and medications if her heart stop. All questions and concerns were addressed at this time. They verbalized understanding and agreed with current care plan. Patient remains a FULL code status at This time. The high probability of a clinically significant, sudden or life threatening deterioration of the [Multiple] system(s) required my full and direct attention, intervention and personal management. The aggregate critical care time was [60] minutes. This time is in addition to time spent performing reported procedures but includes the following: [x] Data Review and interpretation [x] Patient assessment and monitoring of vital signs [x] Documentation [x] Medication orders and management Disposition Plan: ICU Total Time Spent with Patient (Minutes): 60 History Interval history: Patient seen and examined at the bedside. Remains stable on the vent and on low dose fentanyl gtt, VSS. KYLAH overnight Hospitalist Physical - Physical exam Narrative exam: General appearance: Present: no acute distress, other (Remains on the vent and sedated) - EENT Eyes: Present: PERRLA - Respiratory Respiratory effort: Unlabored Respiratory: bilateral: rhonchi, wheezing - Cardiovascular Rhythm: regular Heart Sounds: Present: S1 & S2 - Extremities Extremities: Abnormal. BLE cold to touch, ischemia. Absent pulses Extremity abnormal: edema - Peripheral Assessment Generalized Edema Type: Pitting Edema Degree: 2+ Capillary Refill: < 3 seconds Skin Temperature: Warm Peripheral Pulses: within normal limits - Abdominal General gastrointestinal: soft, non-distended, normal bowel sounds - Integumentary Integumentary: Present: warm (Weeping) - Psychiatric Psychiatric: other (Intubated and sedated) - Neurologic Neurologic: move all extremities(Non-purposeful), other (Intubated and sedated) - Allied Health Allied health notes reviewed: nursing, case management - Constitutional Vitals: Temp Pulse Resp BP Pulse Ox 97.2 F L 90 12 125/81 0 L 02/18/22 11:46 02/18/22 11:00 02/18/22 11:00 02/18/22 11:00 02/18/22 12:00 HEART Score - HEART Score Troponin: Troponin T < 0.010 ng/mL (0.00-0.029) 02/03/22 16:15 Results - Labs CBC & Chem 7: 02/19/22 06:10 02/19/22 06:10 Labs: Laboratory Last Values WBC 14.8 K/mm3 (4.5-11.0) H 02/18/22 04:00 RBC 3.87 M/mm3 (3.65-5.03) 02/18/22 04:00 Hgb 8.3 gm/dl (10.1-14.3) L 02/18/22 04:00 Hct 27.3 % (30.3-42.9) L 02/18/22 04:00 MCV 71 fl (79-97) L 02/18/22 04:00 MCH 22 pg (28-32) L 02/18/22 04:00 MCHC 30 % (30-34) 02/18/22 04:00 RDW 30.5 % (13.2-15.2) H 02/18/22 04:00 Plt Count 439 K/mm3 (140-440) 02/18/22 04:00 Lymph % (Auto) [employer] 02/02/22 04:00 Add Manual Diff Complete 02/03/22 04:00 Total Counted 50 02/03/22 04:00 Seg Neutrophils % [employer] 02/02/22 04:00 Seg Neuts % (Manual) 76.0 % (40.0-70.0) H 02/03/22 04:00 Band Neutrophils % 18.0 % 02/03/22 04:00 Lymphocytes % (Manual) 2.0 % (13.4-35.0) L 02/03/22 04:00 Reactive Lymphs % (Man) 0 % 02/03/22 04:00 Monocytes % (Manual) 4.0 % (0.0-7.3) 02/03/22 04:00 Eosinophils % (Manual) 0 % (0.0-4.3) 02/03/22 04:00 Basophils % (Manual) 0 % (0.0-1.8) 02/03/22 04:00 Metamyelocytes % 0 % 02/03/22 04:00 Myelocytes % 0 % 02/03/22 04:00 Promyelocytes % 0 % 02/03/22 04:00 Blast Cells % 0 % 02/03/22 04:00 Nucleated RBC % 4.0 % (0.0-0.9) H 02/03/22 04:00 Seg Neutrophils # Man 2.8 K/mm3 (1.8-7.7) 02/03/22 04:00 Band Neutrophils # 0.7 K/mm3 02/03/22 04:00 Lymphocytes # (Manual) 0.1 K/mm3 (1.2-5.4) L 02/03/22 04:00 Abs React Lymphs (Man) 0.0 K/mm3 02/03/22 04:00 Monocytes # (Manual) 0.1 K/mm3 (0.0-0.8) 02/03/22 04:00 Eosinophils # (Manual) 0.0 K/mm3 (0.0-0.4) 02/03/22 04:00 Basophils # (Manual) 0.0 K/mm3 (0.0-0.1) 02/03/22 04:00 Metamyelocytes # 0.0 K/mm3 02/03/22 04:00 Myelocytes # 0.0 K/mm3 02/03/22 04:00 Promyelocytes # 0.0 K/mm3 02/03/22 04:00 Blast Cells # 0.0 K/mm3 02/03/22 04:00 WBC Morphology Not Reportable 02/03/22 04:00 Hypersegmented Neuts Not Reportable 02/03/22 04:00 Hyposegmented Neuts Not Reportable 02/03/22 04:00 Hypogranular Neuts Not Reportable 02/03/22 04:00 Smudge Cells Not Reportable 02/03/22 04:00 Toxic Granulation Not Reportable 02/03/22 04:00 Toxic Vacuolation Not Reportable 02/03/22 04:00 Dohle Bodies Few 02/03/22 04:00 Pelger-Huet Anomaly Not Reportable 02/03/22 04:00 Sung Rods Not Reportable 02/03/22 04:00 Platelet Estimate Consistent w auto 02/03/22 04:00 Clumped Platelets Not Reportable 02/03/22 04:00 Plt Clumps, EDTA Not Reportable 02/03/22 04:00 Large Platelets Not Reportable 02/03/22 04:00 Giant Platelets Not Reportable 02/03/22 04:00 Platelet Satelliting Not Reportable 02/03/22 04:00 Plt Morphology Comment Not Reportable 02/03/22 04:00 RBC Morphology Not Reportable 02/03/22 04:00 Dimorphic RBCs Not Reportable 02/03/22 04:00 Polychromasia Not Reportable 02/03/22 04:00 Hypochromasia 3+ 02/03/22 04:00 Poikilocytosis 2+ 02/03/22 04:00 Anisocytosis 1+ 02/03/22 04:00 Microcytosis 2+ 02/03/22 04:00 Macrocytosis Not Reportable 02/03/22 04:00 Spherocytes Not Reportable 02/03/22 04:00 Pappenheimer Bodies Not Reportable 02/03/22 04:00 Sickle Cells Not Reportable 02/03/22 04:00 Target Cells 1+ 02/03/22 04:00 Tear Drop Cells Few 02/03/22 04:00 Ovalocytes Few 02/03/22 04:00 Helmet Cells Not Reportable 02/03/22 04:00 [place] Bodies Not Reportable 02/03/22 04:00 [place] Rings Not Reportable 02/03/22 04:00 [place] Cells 1+ 02/03/22 04:00 Bite Cells Not Reportable 02/03/22 04:00 Crenated Cell Not Reportable 02/03/22 04:00 Elliptocytes Few 02/03/22 04:00 Acanthocytes (Spur) Not Reportable 02/03/22 04:00 Rouleaux Not Reportable 02/03/22 04:00 Hemoglobin C Crystals Not Reportable 02/03/22 04:00 Schistocytes Rare 02/03/22 04:00 Malaria parasites Not Reportable 02/03/22 04:00 Percent Retic 0.65 % (0.78-2.58) L 02/08/22 03:55 Sven Bodies Not Reportable 02/03/22 04:00 Hem Pathologist Commnt No 02/03/22 04:00 PT 13.7 Sec. (12.2-14.9) 02/18/22 04:00 INR 0.95 (0.87-1.13) 02/18/22 04:00 APTT 29.5 Sec. (24.2-36.6) 02/16/22 04:36 Fibrinogen 795 mg/dl (211-480) H 02/05/22 08:48 ABG pH 7.463 pH Units (7.350-7.450) H 02/17/22 05:06 POC ABG pCO2 37.3 mmHg (32.0-48.0) 02/02/22 04:49 ABG pCO2 46.8 mm Hg 02/17/22 05:06 POC ABG pO2 79.9 mmHg (83-108) L 02/02/22 04:49 ABG pO2 113.6 mm Hg (80.0-90.0) H 02/17/22 05:06 POC ABG HCO3 30.3 02/02/22 04:49 ABG HCO3 32.8 mmol/L (20.0-26.0) H 02/17/22 05:06 ABG O2 Saturation 98.2 % (95.0-99.0) 02/17/22 05:06 ABG O2 Content 11.0 (0.0-44) 02/17/22 05:06 POC ABG Base Excess 7.1 02/02/22 04:49 ABG Base Excess 8.1 mmol/L (-2.0-3.0) H 02/17/22 05:06 ABG Hemoglobin 8.0 gm/dl (12.0-16.0) L 02/17/22 05:06 ABG Oxyhemoglobin 96.0 (94-98) 02/02/22 04:49 ABG Carboxyhemoglobin 1.7 % (0.0-5.0) 02/17/22 05:06 ABG Methemoglobin 0.5 % (0.0-1.5) 02/17/22 05:06 ABG Sodium Not Reportable 02/02/22 04:49 ABG Potassium Not Reportable 02/02/22 04:49 ABG Chloride Not Reportable 02/02/22 04:49 ABG Glucose Not Reportable 02/02/22 04:49 Oxyhemoglobin 96.0 % (95.0-99.0) 02/17/22 05:06 Carboxyhemoglobin 0.2 (0.5-1.5) L 02/02/22 04:49 FiO2 30 % 02/17/22 05:06 FiO2 % 60.0 02/02/22 04:49 Sodium 140 mmol/L (137-145) 02/18/22 04:00 Potassium 3.7 mmol/L (3.6-5.0) 02/18/22 04:00 Chloride 100.6 mmol/L (98-107) 02/18/22 04:00 Carbon Dioxide 32 mmol/L (22-30) H 02/18/22 04:00 Anion Gap 11 mmol/L 02/18/22 04:00 BUN 20 mg/dL (7-17) H 02/18/22 04:00 Creatinine 0.3 mg/dL (0.6-1.2) L 02/18/22 04:00 Estimated GFR > 60 ml/min 02/18/22 04:00 BUN/Creatinine Ratio 67 % 02/18/22 04:00 Glucose 132 mg/dL (65-100) H 02/18/22 04:00 POC Glucose 216 mg/dL (70-105) H 02/18/22 11:49 Hemoglobin A1c 11.1 % (4-6) H 02/01/22 12:54 Lactic Acid 2.50 mmol/L (0.7-2.0) H* 02/06/22 11:50 Calcium 8.4 mg/dL (8.4-10.2) 02/18/22 04:00 Phosphorus 3.90 mg/dL (2.5-4.5) 02/15/22 09:12 Magnesium 2.20 mg/dL (1.7-2.3) 02/15/22 09:12 Total Bilirubin 0.50 mg/dL (0.1-1.2) 02/17/22 05:00 Direct Bilirubin < 0.2 mg/dL (0-0.2) 02/13/22 04:00 Indirect Bilirubin 0.1 mg/dL 02/13/22 04:00 AST 38 units/L (5-40) 02/17/22 05:00 ALT 28 units/L (7-56) 02/17/22 05:00 Alkaline Phosphatase 102 units/L (35-129) 02/17/22 05:00 Lactate Dehydrogenase 879 units/L (91-180) H 02/05/22 04:40 Troponin T < 0.010 ng/mL (0.00-0.029) 02/03/22 16:15 Total Protein 5.4 g/dL (6.3-8.2) L 02/17/22 05:00 Albumin 2.5 g/dL (3.9-5) L 02/17/22 05:00 Albumin/Globulin Ratio 0.9 % 02/17/22 05:00 Arterial Blood Glucose Not Reportable 02/02/22 04:49 Urine Color Yellow (Yellow) 02/04/22 09:15 Urine Turbidity Cloudy (Clear) 02/04/22 09:15 Urine pH 6.0 (5.0-7.0) 02/04/22 09:15 Ur Specific Lutz 1.025 (1.003-1.030) 02/04/22 09:15 Urine Protein >500 mg/dL (Negative) 02/04/22 09:15 Urine Glucose (UA) Negative mg/dL (Negative) 02/04/22 09:15 Urine Ketones Negative mg/dL (Negative) 02/04/22 09:15 Urine Blood Large (Negative) A 02/04/22 09:15 Urine Nitrite Negative (Negative) 02/04/22 09:15 Ur Reducing Substances Not Reportable 01/31/22 22:49 Urine Bilirubin Negative (Negative) 02/04/22 09:15 Urine Ictotest Not Reportable 01/31/22 22:49 Urine Urobilinogen < 2.0 mg/dL (<2.0) 02/04/22 09:15 Ur Leukocyte Esterase Negative (Negative) 02/04/22 09:15 Urine WBC (Auto) 12.0 /HPF (0.0-6.0) H 02/04/22 09:15 Urine RBC (Auto) 107.0 /HPF (0.0-6.0) 02/04/22 09:15 U Epithel Cells (Auto) 1.0 /HPF (0-13.0) 02/04/22 09:15 Urine Bacteria (Auto) 1+ /HPF (Negative) 02/04/22 09:15 Urine Mucus Few /HPF 02/04/22 09:15 Urine Yeast (Budding) 2+ /HPF 02/04/22 09:15 Vancomycin Trough 28.6 ug/mL (5.0-20.0) H 02/05/22 Unknown Coronavirus (PCR) Negative (Negative) 02/02/22 10:44 SARS-CoV-2 (PCR) Negative (Negative) 02/15/22 09:39 HIV 1&2 Antibody Rapid Non react (Non React) 02/04/22 14:37 HIV P24 Antigen Non react (Non React) 02/04/22 14:37 Blood Type A POSITIVE 02/13/22 09:41 Antibody Screen Negative 02/13/22 09:41 Crossmatch See Detail 02/13/22 09:41 Gastelum/IV: Voiding Method External Female Catheter Active Medications - Current Medications Current Medications: Generic Name Dose Route Start Last Admin Trade Name Freq PRN Reason Stop Dose Admin Acetaminophen 650 mg 02/01/22 00:57 02/04/22 11:58 Acetaminophen 325 Mg Tab PO 650 mg Q4H PRN Administration Pain MILD(1-3)/Fever >100.5/ROSADO Albuterol 2.5 mg 02/01/22 00:57 Albuterol 2.5 Mg/3 Ml Nebu IH Q3HRT PRN Shortness Of Breath Lipase/Protease/Amylase 1 each 02/02/22 08:08 Lipase 10,500/Protease 25,000/Amylase 43,750 (Units) Dr Avelar FEEDTUBE PRN PRN For Clogged Feeding Tube Atorvastatin Calcium 20 mg 02/03/22 22:00 02/17/22 21:53 Atorvastatin 20 Mg Tab FEEDTUBE 20 mg QHS JAMIL Administration Clopidogrel Bisulfate 75 mg 02/19/22 10:00 Clopidogrel 75 Mg Tab FEEDTUBE QDAY JAMIL Dextrose 50 ml 02/02/22 08:00 02/14/22 18:10 Dextrose 50% In Water (25gm) 50 Ml Syringe IV 50 ml Q30MIN PRN Administration Hypoglycemia Protocol Famotidine 20 mg 02/04/22 10:00 02/17/22 21:53 Famotidine 20 Mg Tab FEEDTUBE 20 mg BID JAMIL Administration Fentanyl 50 mcg 02/02/22 09:45 02/12/22 20:00 Fentanyl 100 Mcg/2 Ml Inj IV 50 mcg Q10MIN PRN Administration ANALGESIA Fentanyl 50 mcg 02/12/22 10:11 02/12/22 17:35 Fentanyl 100 Mcg/2 Ml Inj IV 50 mcg Q2H PRN Administration VENT SYNCHRONY/AGITATION Hydrophilic Ointment 1 applic 02/01/22 18:52 02/17/22 13:52 Lip Therapy Vaseline TP 1 applic Q2HR PRN Administration Dry Lips Fentanyl Citrate 2,000 mcg in 100 mls @ 2.381 mls/hr 02/02/22 10:00 02/18/22 12:00 Fentanyl Drip Premix IV 0 mcg/kg/hr TITR JAMIL 0 mls/hr Titration Protocol 1 MCG/KG/HR Sodium Chloride 500 mls @ 5 mls/hr 02/04/22 03:00 02/08/22 05:21 Nacl 0.9% 500 Ml IV 5 mls/hr DIRECT JAMIL Administration Insulin Glargine 18 units 02/17/22 22:00 02/17/22 21:52 Insulin Glargine 100 Units/Ml SUB-Q 18 units QHS JAMIL Administration Insulin Human Regular 0 units 02/02/22 18:00 02/18/22 06:17 Insulin Regular, Human 100 Units/1 Ml SUB-Q Not Given Q6H [facility] Protocol Multi-Ingred Cream/Lotion/Oil/Oint 1 applic 02/01/22 18:52 Mineral Oil/Petrolatum, White Ophth Oint 3.5 Gm OU Q4HR PRN Dry Eye(s) Nitroglycerin 0.5 inch 02/11/22 14:00 02/18/22 06:23 Nitroglycerin 2% Oint 1 Gm TP 0.5 inch BIDNTG JAMIL Administration Protocol Ondansetron HCl 4 mg 02/01/22 00:57 Ondansetron 4 Mg/2 Ml Inj IV Q8H PRN Nausea And Vomiting Prednisone 50 mg 02/16/22 10:00 02/17/22 09:19 Prednisone 50 Mg Tab FEEDTUBE 02/19/22 09:59 50 mg QDAY JAMIL Administration Prednisone 40 mg 02/20/22 10:00 Prednisone 20 Mg Tab FEEDTUBE 02/23/22 09:59 QDAY JAMIL Prednisone 30 mg 02/24/22 10:00 Prednisone 20 Mg Tab FEEDTUBE 02/27/22 09:59 QDAY JAMIL Quetiapine Fumarate 50 mg 02/09/22 10:00 02/17/22 21:53 Quetiapine 25 Mg Tab PO 50 mg BID JAMIL Administration Senna/Docusate Sodium 2 tab 02/07/22 10:00 02/17/22 21:53 Sennosides/Docusate Sodium 8.6/50 Mg Tab PO 2 tab Q12H JAMIL Administration Simple Syrup 15 ml 02/02/22 08:08 Simple Syrup 15 Ml FEEDTUBE PRN PRN Hypoglycemia Simple Syrup 30 ml 02/02/22 08:08 Simple Syrup 15 Ml FEEDTUBE PRN PRN Hypoglycemia Sodium Bicarbonate 325 mg 02/02/22 08:08 Sodium Bicarbonate 325 Mg Tab FEEDTUBE PRN PRN For Clogged Feeding Tube Sodium Chloride 10 ml 02/01/22 10:00 02/18/22 10:15 Sodium Chloride 0.9% 10 Ml Flush Syringe IV 10 ml BID JAMIL Administration Sodium Chloride 10 ml 02/01/22 00:57 02/09/22 05:59 Sodium Chloride 0.9% 10 Ml Flush Syringe IV 10 ml PRN PRN Administration LINE FLUSH Nutrition/Malnutrition Assess - Dietary Evaluation Nutrition/Malnutrition Findings: Nutrition Notes Start: 02/01/22 17:50 Freq: Status: Active Protocol: Document 02/13/22 10:51 JACQUELINE (Rec: 02/13/22 11:11 JACQUELINE [id number]) Nutrition Notes Initial or Follow up Assessment Current Diagnosis Diabetes,Sepsis,Respiratory Failure Other Pertinent Diagnosis s/p DKA, s/p PEA Arrest, Pneumonia, Pyuria, Pancytopenia, UTI, ... Current Diet TF-Glucerna 1.2 [place] @ 55 ml/hr (since L 02/04). Labs/Tests 02/13: Na 146, CO2 38, BUN 25, Crea 0.4, Glu 235, Ca 8.0. Pertinent Medications 02/13: Lantus 20U, Humulin 6U, others nutritionally unremarkable. Height 5 ft 4 in Weight 48.8 kg [place] Body Weight (kg) 54.54 BMI 18.4 Weight change and time frame 2.3 Kg body weight gain reported in 1 week. Weight Status Underweight Subjective/Other Information RD consult for TF tolerance/ continuation. TF continues as prescribed, and well tolerated, according to RN notes. Pt remains on Mechanical Ventilation, O2 saturation @ 100%, according to Physical Assessment History notes. Pt remains incontinent, according to Physical Assessment History notes. Plans for extubation on 02/14 am, according to Progress notes. Percent of energy/protein needs met: Prescribed TF-Glucerna 1.2 Moreno @ 55 ml/hr provides for energy/protein needs (1584 Kcal/79 g) during LOS, 97% Kcal; 100% AA. Burn Absent Trauma Absent GI Symptoms None Difficulty In Swallowing Food Allergy No Skin Integrity/Comment Unspecified area of concern. Current % PO Other Minimum of two criteria No Fluid Accumulation N/A Reduced Assistant Manager Airside Operations Strength N/A (non-severe) Protein-Calorie Malnutrition N\A #1 Nutrition Diagnosis Inadequate oral intake Diagnosis Progress(for reassessment Continues documentation) Is patient on ventilator? Yes Is Patient Ambulatory and/or Out of Bed No REE-([facility]-confined to bed) 1262.676 Kcal/Kg value to use for calculation 34 Approximate Energy Requirements Using 1659 kcal/Kg Calculation Used for Recommendations Kcal/kg Additional Notes Protein: 1.2-2 g/Kg ABW; 56-93 g/day. Fluids: 1 ml/Kcal, or as per MD. Nutrition Intervention Nutrition Support: Continue TF-Glucerna 1.2 Omreno @ 55 ml/hr. Flush: 250 ml water Q 4 hr while hypernatremia persists, resume to 100 ml when Na is WNL. Kcal 1,584 Protein (gm) 79 Carbohydrates (gm) 151 Fat (gm) 79 Fluid (mL) 1,063 Fiber (gm) 21 % RDI: 97% Kcal; 100% AA. Goal #1 Provide at least 75% of energy /protein needs through Enteral Feeding during LOS. Follow-Up By: 02/20/22 Additional Comments Continue monitoring TF tolerance, Mechanical Ventilation, Hypernatremia, and BM. <ABDELRAHMAN MCMAHAN - Last Filed: 02/25/22 11:24> History Interval history: I saw and evaluated the patient. I agree with the findings and the plan of care as documented in the Nurse Practitioner's~note, with the following corrections and additions. Hospitalist Physical - Constitutional Vitals: Temp Pulse Resp BP Pulse Ox 100.5 F H 115 H 27 H 101/70 100 02/22/22 16:00 02/22/22 18:00 02/22/22 18:00 02/22/22 18:00 02/22/22 18:00 HEART Score - HEART Score Troponin: Troponin T < 0.010 ng/mL (0.00-0.029) 02/03/22 16:15 Results - Labs CBC & Chem 7: 02/22/22 04:00 02/22/22 04:00 Labs: Laboratory Last Values WBC 15.0 K/mm3 (4.5-11.0) H 02/22/22 04:00 RBC 3.62 M/mm3 (3.65-5.03) L 02/22/22 04:00 Hgb 7.7 gm/dl (10.1-14.3) L 02/22/22 04:00 Hct 24.8 % (30.3-42.9) L 02/22/22 04:00 MCV 68 fl (79-97) L 02/22/22 04:00 MCH 21 pg (28-32) L 02/22/22 04:00 MCHC 31 % (30-34) 02/22/22 04:00 RDW 29.9 % (13.2-15.2) H 02/22/22 04:00 Plt Count 442 K/mm3 (140-440) H 02/22/22 04:00 Lymph % (Auto) [employer] 02/02/22 04:00 Add Manual Diff Complete 02/03/22 04:00 Total Counted 50 02/03/22 04:00 Seg Neutrophils % [employer] 02/02/22 04:00 Seg Neuts % (Manual) 76.0 % (40.0-70.0) H 02/03/22 04:00 Band Neutrophils % 18.0 % 02/03/22 04:00 Lymphocytes % (Manual) 2.0 % (13.4-35.0) L 02/03/22 04:00 Reactive Lymphs % (Man) 0 % 02/03/22 04:00 Monocytes % (Manual) 4.0 % (0.0-7.3) 02/03/22 04:00 Eosinophils % (Manual) 0 % (0.0-4.3) 02/03/22 04:00 Basophils % (Manual) 0 % (0.0-1.8) 02/03/22 04:00 Metamyelocytes % 0 % 02/03/22 04:00 Myelocytes % 0 % 02/03/22 04:00 Promyelocytes % 0 % 02/03/22 04:00 Blast Cells % 0 % 02/03/22 04:00 Nucleated RBC % 4.0 % (0.0-0.9) H 02/03/22 04:00 Seg Neutrophils # Man 2.8 K/mm3 (1.8-7.7) 02/03/22 04:00 Band Neutrophils # 0.7 K/mm3 02/03/22 04:00 Lymphocytes # (Manual) 0.1 K/mm3 (1.2-5.4) L 02/03/22 04:00 Abs React Lymphs (Man) 0.0 K/mm3 02/03/22 04:00 Monocytes # (Manual) 0.1 K/mm3 (0.0-0.8) 02/03/22 04:00 Eosinophils # (Manual) 0.0 K/mm3 (0.0-0.4) 02/03/22 04:00 Basophils # (Manual) 0.0 K/mm3 (0.0-0.1) 02/03/22 04:00 Metamyelocytes # 0.0 K/mm3 02/03/22 04:00 Myelocytes # 0.0 K/mm3 02/03/22 04:00 Promyelocytes # 0.0 K/mm3 02/03/22 04:00 Blast Cells # 0.0 K/mm3 02/03/22 04:00 WBC Morphology Not Reportable 02/03/22 04:00 Hypersegmented Neuts Not Reportable 02/03/22 04:00 Hyposegmented Neuts Not Reportable 02/03/22 04:00 Hypogranular Neuts Not Reportable 02/03/22 04:00 Smudge Cells Not Reportable 02/03/22 04:00 Toxic Granulation Not Reportable 02/03/22 04:00 Toxic Vacuolation Not Reportable 02/03/22 04:00 Dohle Bodies Few 02/03/22 04:00 Pelger-Huet Anomaly Not Reportable 02/03/22 04:00 Sung Rods Not Reportable 02/03/22 04:00 Platelet Estimate Consistent w auto 02/03/22 04:00 Clumped Platelets Not Reportable 02/03/22 04:00 Plt Clumps, EDTA Not Reportable 02/03/22 04:00 Large Platelets Not Reportable 02/03/22 04:00 Giant Platelets Not Reportable 02/03/22 04:00 Platelet Satelliting Not Reportable 02/03/22 04:00 Plt Morphology Comment Not Reportable 02/03/22 04:00 RBC Morphology Not Reportable 02/03/22 04:00 Dimorphic RBCs Not Reportable 02/03/22 04:00 Polychromasia Not Reportable 02/03/22 04:00 Hypochromasia 3+ 02/03/22 04:00 Poikilocytosis 2+ 02/03/22 04:00 Anisocytosis 1+ 02/03/22 04:00 Microcytosis 2+ 02/03/22 04:00 Macrocytosis Not Reportable 02/03/22 04:00 Spherocytes Not Reportable 02/03/22 04:00 Pappenheimer Bodies Not Reportable 02/03/22 04:00 Sickle Cells Not Reportable 02/03/22 04:00 Target Cells 1+ 02/03/22 04:00 Tear Drop Cells Few 02/03/22 04:00 Ovalocytes Few 02/03/22 04:00 Helmet Cells Not Reportable 02/03/22 04:00 [place] Bodies Not Reportable 02/03/22 04:00 Clendenin Rings Not Reportable 02/03/22 04:00 Lesly Cells 1+ 02/03/22 04:00 Bite Cells Not Reportable 02/03/22 04:00 Crenated Cell Not Reportable 02/03/22 04:00 Elliptocytes Few 02/03/22 04:00 Acanthocytes (Spur) Not Reportable 02/03/22 04:00 Rouleaux Not Reportable 02/03/22 04:00 Hemoglobin C Crystals Not Reportable 02/03/22 04:00 Schistocytes Rare 02/03/22 04:00 Malaria parasites Not Reportable 02/03/22 04:00 Percent Retic 0.65 % (0.78-2.58) L 02/08/22 03:55 Sven Bodies Not Reportable 02/03/22 04:00 Hem Pathologist Commnt No 02/03/22 04:00 PT 13.7 Sec. (12.2-14.9) 02/18/22 04:00 INR 0.95 (0.87-1.13) 02/18/22 04:00 APTT 29.5 Sec. (24.2-36.6) 02/16/22 04:36 Fibrinogen 795 mg/dl (211-480) H 02/05/22 08:48 ABG pH 7.463 pH Units (7.350-7.450) H 02/17/22 05:06 POC ABG pCO2 37.3 mmHg (32.0-48.0) 02/02/22 04:49 ABG pCO2 46.8 mm Hg 02/17/22 05:06 POC ABG pO2 79.9 mmHg (83-108) L 02/02/22 04:49 ABG pO2 113.6 mm Hg (80.0-90.0) H 02/17/22 05:06 POC ABG HCO3 30.3 02/02/22 04:49 ABG HCO3 32.8 mmol/L (20.0-26.0) H 02/17/22 05:06 ABG O2 Saturation 98.2 % (95.0-99.0) 02/17/22 05:06 ABG O2 Content 11.0 (0.0-44) 02/17/22 05:06 POC ABG Base Excess 7.1 02/02/22 04:49 ABG Base Excess 8.1 mmol/L (-2.0-3.0) H 02/17/22 05:06 ABG Hemoglobin 8.0 gm/dl (12.0-16.0) L 02/17/22 05:06 ABG Oxyhemoglobin 96.0 (94-98) 02/02/22 04:49 ABG Carboxyhemoglobin 1.7 % (0.0-5.0) 02/17/22 05:06 ABG Methemoglobin 0.5 % (0.0-1.5) 02/17/22 05:06 ABG Sodium Not Reportable 02/02/22 04:49 ABG Potassium Not Reportable 02/02/22 04:49 ABG Chloride Not Reportable 02/02/22 04:49 ABG Glucose Not Reportable 02/02/22 04:49 Oxyhemoglobin 96.0 % (95.0-99.0) 02/17/22 05:06 Carboxyhemoglobin 0.2 (0.5-1.5) L 02/02/22 04:49 FiO2 30 % 02/17/22 05:06 FiO2 % 60.0 02/02/22 04:49 Sodium 143 mmol/L (137-145) 02/22/22 04:00 Potassium 3.7 mmol/L (3.6-5.0) 02/22/22 04:00 Chloride 108.7 mmol/L (98-107) H 02/22/22 04:00 Carbon Dioxide 26 mmol/L (22-30) 02/22/22 04:00 Anion Gap 12 mmol/L 02/22/22 04:00 BUN 10 mg/dL (7-17) 02/22/22 04:00 Creatinine 0.4 mg/dL (0.6-1.2) L 02/22/22 04:00 Estimated GFR > 60 ml/min 02/22/22 04:00 BUN/Creatinine Ratio 25 % 02/22/22 04:00 Glucose 49 mg/dL (65-100) L 02/22/22 04:00 POC Glucose 173 mg/dL (70-105) H 02/22/22 18:19 Hemoglobin A1c 11.1 % (4-6) H 02/01/22 12:54 Lactic Acid 2.50 mmol/L (0.7-2.0) H* 02/06/22 11:50 Calcium 8.7 mg/dL (8.4-10.2) 02/22/22 04:00 Phosphorus 2.90 mg/dL (2.5-4.5) 02/22/22 11:35 Magnesium 1.70 mg/dL (1.7-2.3) 02/22/22 11:35 Total Bilirubin 0.50 mg/dL (0.1-1.2) 02/17/22 05:00 Direct Bilirubin < 0.2 mg/dL (0-0.2) 02/13/22 04:00 Indirect Bilirubin 0.1 mg/dL 02/13/22 04:00 AST 38 units/L (5-40) 02/17/22 05:00 ALT 28 units/L (7-56) 02/17/22 05:00 Alkaline Phosphatase 102 units/L (35-129) 02/17/22 05:00 Lactate Dehydrogenase 879 units/L (91-180) H 02/05/22 04:40 Troponin T < 0.010 ng/mL (0.00-0.029) 02/03/22 16:15 Total Protein 5.4 g/dL (6.3-8.2) L 02/17/22 05:00 Albumin 2.5 g/dL (3.9-5) L 02/17/22 05:00 Albumin/Globulin Ratio 0.9 % 02/17/22 05:00 Arterial Blood Glucose Not Reportable 02/02/22 04:49 Urine Color Straw (Yellow) 02/19/22 18:15 Urine Turbidity Clear (Clear) 02/19/22 18:15 Urine pH 8.0 (5.0-7.0) H 02/19/22 18:15 Ur Specific Lutz 1.000 (1.003-1.030) L 02/19/22 18:15 Urine Protein 30 mg/dl mg/dL (Negative) 02/19/22 18:15 Urine Glucose (UA) Negative mg/dL (Negative) 02/19/22 18:15 Urine Ketones 5 mg/dL (Negative) 02/19/22 18:15 Urine Blood 1+ (Negative) 02/19/22 18:15 Urine Nitrite Negative (Negative) 02/19/22 18:15 Ur Reducing Substances Not Reportable 02/19/22 18:15 Urine Bilirubin Negative (Negative) 02/19/22 18:15 Urine Ictotest Not Reportable 02/19/22 18:15 Urine Urobilinogen Small mg/dL (<2.0) 02/19/22 18:15 Ur Leukocyte Esterase Negative (Negative) 02/19/22 18:15 Urine WBC (Auto) 2.0 /HPF (0.0-6.0) 02/19/22 18:15 Urine RBC (Auto) 3.0 /HPF (0.0-6.0) 02/19/22 18:15 U Epithel Cells (Auto) 1.0 /HPF (0-13.0) 02/04/22 09:15 Urine Bacteria (Auto) 1+ /HPF (Negative) 02/19/22 18:15 Urine Mucus Few /HPF 02/04/22 09:15 Urine Yeast (Budding) 2+ /HPF 02/04/22 09:15 Vancomycin Trough 28.6 ug/mL (5.0-20.0) H 02/05/22 Unknown Coronavirus (PCR) Negative (Negative) 02/02/22 10:44 SARS-CoV-2 (PCR) Negative (Negative) 02/15/22 09:39 HIV 1&2 Antibody Rapid Non react (Non React) 02/04/22 14:37 HIV P24 Antigen Non react (Non React) 02/04/22 14:37 Blood Type A POSITIVE 02/13/22 09:41 Antibody Screen Negative 02/13/22 09:41 Crossmatch See Detail 02/13/22 09:41 Microbiology: Microbiology 02/19/22 14:51 Peripheral/Venous Blood Culture - Final NO GROWTH AFTER 5 DAYS 02/19/22 14:51 Peripheral/Venous Blood Culture - Final NO GROWTH AFTER 5 DAYS 02/19/22 18:43 Tracheal Aspirate Sputum Culture - Final Gastelum/IV: Voiding Method External Female Catheter Nutrition/Malnutrition Assess - Dietary Evaluation Nutrition/Malnutrition Findings: Nutrition Notes Start: 02/01/22 17:50 Freq: Status: Discharge Protocol: Document 02/19/22 14:47 JACQUELINE (Rec: 02/19/22 15:20 JACQUELINE [id number]) Nutrition Notes Need for Assessment generated from: Low BMI Initial or Follow up Reassessment Current Diagnosis Diabetes,Sepsis,Respiratory Failure Other Pertinent Diagnosis s/p DKA, s/p PEA Arrest, Pneumonia, Pyuria, Pancytopenia, UTI, ... Current Diet TF-Glucerna 1.2 Moreno @ 55 ml/hr (since D 02/18). Labs/Tests 02/19: Crea 0.3, Glu 143. Pertinent Medications 02/19: D10w @ 42 ml/hr, others nutritionally unremarkable. Height 5 ft 4 in Weight 47 kg [place] Body Weight (kg) 54.54 BMI 17.7 Weight change and time frame 1.8 Kg body weight loss in 1 week reported. Weight Status Underweight Subjective/Other Information RD consult for routine F/U on TF tolerance/continuation, and Low BMI assessment. TF continues as prescribed, but currently on hold, due to vomiting episode after PEG placement, according to RN notes. Pt remains on Mechanical Ventilation, O2 saturation @ 100%, according to Physical Assessment History notes. PEG-tube placement on 02/18, well tolerated, according to Operative Report notes. Pt's Low BMI seems to correspond to a natural body composition, and not related to a sudden loss of body weight nor chronic malnutrition, since no signs of concern were mentioned in the Physical Assessment History or the Progress notes. Percent of energy/protein needs met: Prescribed TF-Glucerna 1.2 Moreno @ 55 ml/hr provides for energy/protein needs (1584 Kcal/79 g) during LOS, 97% Kcal; 100% AA. Burn Absent Trauma Absent GI Symptoms Vomiting Difficulty In Swallowing Food Allergy No Skin Integrity/Comment Unspecified area of concern. Current % PO Other Minimum of two criteria No Fluid Accumulation N/A Reduced Assistant Manager Airside Operations Strength N/A (non-severe) Protein-Calorie Malnutrition N\A #1 Nutrition Diagnosis Inadequate oral intake Diagnosis Progress(for reassessment Continues documentation) Is patient on ventilator? Yes Is Patient Ambulatory and/or Out of Bed No REE-([facility]-confined to bed) 1241.100 Kcal/Kg value to use for calculation 34 Approximate Energy Requirements Using 1598 kcal/Kg Calculation Used for Recommendations Kcal/kg Additional Notes Protein: 1.2-2 g/Kg ABW; 56-93 g/day. Fluids: 1 ml/Kcal, or as per MD. Nutrition Intervention Nutrition Support: Continue TF-Glucerna 1.2 Moreno @ 55 ml/hr. Flush: 100 ml water Q 4 hr, or as per MD. Kcal 1,584 Protein (gm) 79 Carbohydrates (gm) 151 Fat (gm) 79 Fluid (mL) 1,063 Fiber (gm) 21 % RDI: 97% Kcal; 100% AA. Goal #1 Provide at least 75% of energy /protein needs through Enteral Feeding during LOS. Follow-Up By: 03/05/22 Additional Comments Continue monitoring TF tolerance, Mechanical Ventilation, and BM.
[2022-02-18] MEDS ORDERED: LIDOCAINE 1%/EPINEPHRINE 1:100,000 VIAL (20 ML) INFILTRATI ONE (13:32)
--- NOTE | 2022-02-18 13:43 | Operative Report ---
Operative Report Operative Report: BRONCH: Date of Operation: 02/18/2022 Preoperative diagnosis: Ventilator -dependent respiratory failure Operative diagnosis: Same as above Procedure performed: Fiber optic bronchoscopy Surgeon: Dr. Graham Anesthesia: JOSUÉA Findings: Edematous, chronically inflamed upper airway Complications: None Disposition: Stable in ICU HPI and indication: Patient is a 61-year-old ventilator dependent - [place] lady. Procedure in detail: The patient was identified in her bed in the ICU. After anesthesia was induced, the fiberoptic bronchoscope was passed through the endotracheal tube. The lower trachea and kathy were visualized, there was a normal appearance of the mucosa and no debris or fluid was seen. At this point, Dr. Palomino who performed the tracheostomy portion of the procedure (please see separate operative note), asked for the endotracheal tube to be withdrawn by 3 cm. The upper trachea was visualized and appeared edematous with evidence of inflammatory changes. At this point, Dr. Palomino placed the tracheostomy tube under direct visualization by fiberoptic bronchoscopy. Please see separate operative note for more details on Tracheostomy placement. Once the tracheostomy tube was placed, the bronchoscope was withdrawn from the endotracheal tube and placed through the tracheostomy tube. The tracheostomy tube appeared to be in good position approximately 3 cm above the kathy. The bronchoscope was then withdrawn.
--- NOTE | 2022-02-18 13:46 | Operative Report ---
Operative Report Operative Report: Date: 02/18/2022 Preoperative diagnosis: Dysphagia Postop diagnosis same Procedure: EGD to support PEG tube placement by Dr. Palomino Surgeon: Dr. Graham and Dr. Palomino, A mouthguard was placed through which a flexible endoscope was passed through the mouth and into the esophagus. The NG tube was visualized along the way. The endoscope was advanced through the esophagus and into the stomach. The stomach was unremarkable. 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 The stomach was insufflated and transillumination performed. An area of transillumination was visualized in the left upper quadrant and marked. The skin was then prepped and draped in usual sterile fashion. Local anesthetic was infiltrated to the skin at the intended incision site. A small incision was made in the skin using an 11 blade. An introducer needle/breakaway sheath was inserted directly through this incision into the stomach under direct endoscopic visualization. The needle was removed. The wire was passed and grasped with a snare by the assistant accounting manager and the wire pulled along with the endoscope through the mouth. The PEG tube was assembled onto the wire and pulled back through the mouth and down into the stomach. The outer bumper was at 4 cm at the skin. The PEG tube was cut to size and assembled in the usual fashion. A drain sponge was applied between the skin and the PEG tube and the tube secured with tape. I then reinserted the endoscope into the mouth and down into the stomach. The PEG tube inner bumper was seen to lay flush against the gastric mucosa without tension. There is no bleeding. The pylorus was entered, and the first portion of the duodenum was unremarkable. The scope was then withdrawn back into the stomach and retroflexed. The entirety of the stomach was unremarkable. The NG tube was withdrawn. The stomach was then desufflated and the endoscope withdrawn.
--- NOTE | 2022-02-18 14:20 | XRay Report ---
CHEST 1 VIEW 02/18/2022 1:13 PM INDICATION / CLINICAL INFORMATION: s/p trach. COMPARISON: Yesterday FINDINGS: SUPPORT DEVICES: The endotracheal tube has been replaced with a tracheostomy tube which appears in go od position. Nasogastric tube is been removed. Right arm PICC remains in good position. HEART / MEDIASTINUM: No significant abnormality. LUNGS / PLEURA: Bilateral airspace opacities are stable. No consolidation, pleural effusion or pneumo thorax. ADDITIONAL FINDINGS: No significant additional findings. IMPRESSION: 1. Adequate trach placement. No acute process is noted. Signer Name: Randall Poole Jr, MD Signed: 02/18/2022 2:16 PM Workstation Name: [id number]
--- NOTE | 2022-02-18 14:36 | Vascular Lab Report ---
DUPLEX DOPPLER UPPER EXTREMITY ARTERIAL, LEFT INDICATION / CLINICAL INFORMATION: Left second digit ischemia. TECHNIQUE: Arterial duplex examination of the left upper extremity performed using B-mode, color flow and spectral Doppler assessment. FINDINGS: LEFT: - Axillary: PSV 67 cm/sec. Triphasic waveform. - Brachial: PSV 39 cm/sec. Triphasic waveform. - Radial: PSV 35 cm/sec. Triphasic waveform. - Ulnar: PSV 33 cm/sec. Triphasic waveform. ADDITIONAL FINDINGS: None. IMPRESSION: 1. No significant upper extremity peripheral artery disease. Doppler Waveform: - Triphasic is normal. - Biphasic is abnormal if clear transition from triphasic signal along vascular tree. - Monophasic is abnormal. Signer Name: Ata Hernandez DO Signed: 02/18/2022 2:32 PM Workstation Name: [id number]
[2022-02-18] MEDS: FAMOTIDINE 20 MG TAB FEEDTUBE SCH ×2 (15:37→21:39)
[2022-02-18] MEDS: predniSONE 50 MG TAB FEEDTUBE SCH (15:37)
[2022-02-18] MEDS: QUEtiapine 25 MG TAB PO SCH ×2 (15:38→21:39)
[2022-02-18] MEDS: SENNOSIDES/DOCUSATE SODIUM 8.6/50 MG TAB PO SCH ×2 (15:38→21:39)
--- NOTE | 2022-02-18 15:47 | Progress Note ---
Assessment and Plan 02/18/22: Start weaning from vent tomorrow. Use peg when surgery approves. Hopeful dispostion to LTACH soon. 02/17/22: Trach and peg tomorrow. NPO after midnight tonight. Steroid taper. Will attempt to touch base with family again about consent for Picc so that IJ can be removed. If not able to do this, will need to be changed over a wire. 02/16/22: Trach and peg on Friday. Continue sedation. Will check CMP tomorrow. Will give a one time dose of albumin with lasix chaser. oral steroid taper has been ordered. need to discontinue central line and replace with picc for more intermediate usage. 02/15/22: Trach and peg soon. Continue sedation and supportive care. 02/14/22: Today will plan to extubate. if fails will need trach. Reviewed chart and saw vascular recs. Will wean steroids again either tomorrow or Friday. 02/13/22: Drop steroids to 50q12 today. Currently on PSV 18/12. Sedatioin off. Tentatively plan for possible extubation tomorrow morning. 02/12/22: Will wean steroids more tomorrow. Drop PEEP to 6 today and attempt PSV this afternoon. If tolerates will leave on PSV until end of day shift and then rest on rate overnight. Hopeful to leave off sedation and control with PRN pushes. Repeat PSV tomorrow consider ABG, pending on how she looks clinically. Hopeful for conventional ventilation but family is on board if trach and peg are required. 02/11/22: Will drop steroids to 50q8. Will drop PEEP to 8. Once PEEP at 6 , then consult surgery fro trach and peg unless off sedation mental state is better and she can tolerate PSV to assess if able for conventional extubation. Prognosis still remains guarded but improved now that pulmonary status has improved. 02/08/22: Please do not attempt to wean PEEP unless it is compromising clinical state (breath stacking, auto peep, hypotension, etc). Patient is in full blown ARDS needs increased levels of PEEP to help with oxygenation. Now that BP is better, if no improvement would even consider increasing PEEP if needed. Discussed with RT today. 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 Hopeful there is no occlusion as given her pancytopenia, not sure that she would be a candidate for anticoagulation. Reviewed [facility] as she was in [place] at least 3x prior to transfer here, twice during the month of January for DKA. She does have a diagnsosis of schizoaffective disorder. Could not find any meds for this. Will try some BID seroquel and see if this helps with mental state. Increases in sedation have not improved respiratory pattern. Patient did not get albumin and lasix last night but did get this am. Repeat CXR in the morning as well as ABG. If patient's alkalemia worsens would stop. Also given improvement in BP would start to wean stress dose steroids. She does have a diagnosis of HTN along with her diabetes and Dementia and Schizoaffective disorder. Also from reviewing the charts at [facility], patient is/was very noncompliant with diabetic regimen so some of her mental state could be vascular disease related to uncontrolled diabetes too. Overall prognosis is guarded. 02/07/22: Family meeting today, please see my event note. albumin and lasix again this morning and then again tonight. Continue steroids. May need insulin drip. Guarded prognosis. 02/06/22: Overall prognosis continues to worsen. She did respond to albumin and lasix with good urine output. Will give again tonight. Bronch results are negative and repeat cultures are negative. CXR continues to be consistent with ARDS. This could be AIP. Now on steroids so will see how she responds. Unfortunately I was not able to meet with the family today but plan to meet with them at 11 tomorrow. appreciate heme help. Given her response to steroids BP salazar, if this is truly acute interstitial pneumonitis, may consider pulse dose steroids. Will discuss with family risks of this as well. 02/05/22: Follow up bronch results. Appreciate ID assistance and changing of abx therapy. COntinue high PEEP and small TV. Ok with permissive hypercapnea as long as pH is >7.2. Follow up heme assessment. Has Kleib in tracheal aspirate. Follow up blood cultures. Will meet with family tomorrow. Overall prognosis is guarded to poor. 02/04/22: Repeat cultures this am while she is febrile. Bronched this am and wash taken from right middle lobe. Worsening CXR is likely related to the volume given yesterday. Will consult heme today as her numbers continue to worsen. Gram Negative Rods found in Tracheal aspirate from 02/01. Follow up speciation of this as well as bronch results. Will send for fungal cultures as well. Needs art line. Stop bob and change to vasopressin. Overall prognosis is very very guarded to poor. 02/03/22: Needs repeat culture with next fever spike. concern now that she is still spiking temps on broad spec abx. may need to broaden even more with antifungal but will discuss tomorrow with pharmacy tomorrow. pH is better but worsening hypoxemia. CXR shows bilateral infiltrates. Will consider bronch tomorrow for washing to be sent for culture. Consider Heme consult tomorrow. Echo was stable. Guarded to poor prognosis. Sugar is better today. 02/02/22: Wean Vasopressors as tolerated for maps >65. Check echo. Stop insulin therapy. Q1hour fSbs and cover with sliding scale. Repeat ABG later today to follow pH. May need some diamox later. Patient now neutropenic and thrombocytopenic, repeated CBC and still the same. may need to consider heme consult. For now continue broad spec abx therapy. prognosis is guarded to poor. 2 amps of NaBicarb pushed Started on Insulin drip Central line placement secondary to lack of access Aggressive volume resuscitation q1 hour fsbs and q6 hour BMPs for the next 36-48 hours Supplemental O2 Not a candidate for bipap currently given mental state so if her respiratory status deteriorates would need intubation. Guarded prognosis. Spoke with daughter briefly at bedside. She did not get off her cell phone so not able to have a full conversation with her about her mother. CCT 31 minutes. Subjective Date of service: 02/18/22 Principal diagnosis: DKA, s/p cardiopulmonary arrest Interval history: Successful trach and peg placement today. Objective Vital Signs - 12hr 02/18/22 02/18/22 02/18/22 04:00 04:09 05:00 Temperature Pulse Rate 99 H 104 H 104 H Pulse Rate [ 101 H From Monitor] Respiratory 19 23 Rate Blood Pressure 141/89 148/85 167/109 O2 Sat by Pulse 100 100 100 Oximetry 02/18/22 02/18/22 02/18/22 06:00 06:23 07:00 Temperature Pulse Rate 98 H 96 H 105 H Pulse Rate [ From Monitor] Respiratory 13 22 Rate Blood Pressure 140/83 140/83 133/89 O2 Sat by Pulse 100 97 Oximetry 02/18/22 02/18/22 02/18/22 07:28 07:53 08:00 Temperature 98.2 F Pulse Rate 94 H 105 H Pulse Rate [ 101 H From Monitor] Respiratory 24 Rate Blood Pressure 140/90 O2 Sat by Pulse 100 Oximetry 02/18/22 02/18/22 02/18/22 09:00 10:00 11:00 Temperature Pulse Rate 95 H 91 H 90 Pulse Rate [ From Monitor] Respiratory 13 13 12 Rate Blood Pressure 135/81 125/81 125/81 O2 Sat by Pulse 97 99 100 Oximetry 02/18/22 02/18/22 02/18/22 11:46 12:00 13:18 Temperature 97.2 F L Pulse Rate 96 H Pulse Rate [ 96 H From Monitor] Respiratory 20 14 Rate Blood Pressure 144/98 O2 Sat by Pulse 100 99 Oximetry 02/18/22 02/18/22 14:00 15:00 Temperature Pulse Rate 97 H 91 H Pulse Rate [ From Monitor] Respiratory 17 15 Rate Blood Pressure 125/87 114/79 O2 Sat by Pulse 100 99 Oximetry Constitutional: other (on vent, orally intubated) Eyes: non-icteric ENT: oropharynx moist Ascultation: Bilateral: diminished breath sounds Cardiovascular: regular rate and rhythm Gastrointestinal: normoactive bowel sounds Integumentary: normal Neurologic: other (on vent) Psychiatric: other (on vent) CBC and BMP: 02/18/22 04:00 02/18/22 04:00 ABG, PT/INR, D-dimer: ABG ABG pH 7.463 pH Units (7.350-7.450) H 02/17/22 05:06 POC ABG pCO2 37.3 mmHg (32.0-48.0) 02/02/22 04:49 ABG pCO2 46.8 mm Hg 02/17/22 05:06 POC ABG pO2 79.9 mmHg (83-108) L 02/02/22 04:49 ABG pO2 113.6 mm Hg (80.0-90.0) H 02/17/22 05:06 POC ABG HCO3 30.3 02/02/22 04:49 ABG O2 Saturation 98.2 % (95.0-99.0) 02/17/22 05:06 PT/INR, D-dimer PT 13.7 Sec. (12.2-14.9) 02/18/22 04:00 INR 0.95 (0.87-1.13) 02/18/22 04:00 Abnormal lab findings: Abnormal Labs 01/31/22 01/31/22 01/31/22 20:33 20:33 20:33 WBC 12.5 H RBC 6.16 H Hgb Hct MCV 61 L MCH 18 L RDW 19.6 H Plt Count Seg Neuts % (Manual) 98.0 H Lymphocytes % (Manual) 0 L Nucleated RBC % 2.0 H Seg Neutrophils # Man 12.3 H Lymphocytes # (Manual) 0.0 L Percent Retic Fibrinogen ABG pH POC ABG pO2 ABG pO2 ABG HCO3 ABG O2 Saturation ABG Base Excess ABG Hemoglobin Oxyhemoglobin Carboxyhemoglobin Sodium Potassium 5.6 H Chloride 110.1 H Carbon Dioxide 9 L* BUN Creatinine Glucose 254 H POC Glucose Hemoglobin A1c Lactic Acid 2.50 H* Calcium 10.8 H Phosphorus Magnesium Direct Bilirubin AST ALT Alkaline Phosphatase Lactate Dehydrogenase Total Protein Albumin Ur Specific [place] Urine Blood Urine WBC (Auto) Vancomycin Trough Crossmatch 01/31/22 02/01/22 02/01/22 22:49 07:34 08:22 WBC RBC Hgb Hct MCV MCH RDW Plt Count Seg Neuts % (Manual) Lymphocytes % (Manual) Nucleated RBC % Seg Neutrophils # Man Lymphocytes # (Manual) Percent Retic Fibrinogen ABG pH POC ABG pO2 ABG pO2 ABG HCO3 ABG O2 Saturation ABG Base Excess ABG Hemoglobin Oxyhemoglobin Carboxyhemoglobin Sodium Potassium 5.8 H Chloride 115.8 H Carbon Dioxide 3 L* BUN Creatinine Glucose 400 H POC Glucose 368 H Hemoglobin A1c Lactic Acid Calcium Phosphorus Magnesium Direct Bilirubin AST ALT Alkaline Phosphatase Lactate Dehydrogenase Total Protein Albumin Ur Specific [place] 1.035 H Urine Blood Small A Urine WBC (Auto) 142.0 H Vancomycin Trough Crossmatch 02/01/22 02/01/22 02/01/22 09:42 12:01 12:54 WBC RBC Hgb Hct MCV MCH RDW Plt Count Seg Neuts % (Manual) Lymphocytes % (Manual) Nucleated RBC % Seg Neutrophils # Man Lymphocytes # (Manual) Percent Retic Fibrinogen ABG pH 7.044 L* POC ABG pO2 ABG pO2 121.0 H ABG HCO3 3.7 L ABG O2 Saturation ABG Base Excess -24.8 L ABG Hemoglobin 9.3 L Oxyhemoglobin Carboxyhemoglobin Sodium Potassium Chloride Carbon Dioxide BUN Creatinine Glucose POC Glucose 382 H Hemoglobin A1c Lactic Acid Calcium Phosphorus 1.40 L Magnesium 1.30 L Direct Bilirubin AST ALT Alkaline Phosphatase Lactate Dehydrogenase Total Protein Albumin Ur Specific [place] Urine Blood Urine WBC (Auto) Vancomycin Trough Crossmatch 02/01/22 02/01/22 02/01/22 12:54 12:54 13:27 WBC RBC Hgb Hct MCV MCH RDW Plt Count Seg Neuts % (Manual) Lymphocytes % (Manual) Nucleated RBC % Seg Neutrophils # Man Lymphocytes # (Manual) Percent Retic Fibrinogen ABG pH POC ABG pO2 ABG pO2 ABG HCO3 ABG O2 Saturation ABG Base Excess ABG Hemoglobin Oxyhemoglobin Carboxyhemoglobin Sodium 148 H D Potassium 3.0 L D Chloride 117.3 H Carbon Dioxide 9 L* BUN Creatinine Glucose 439 H POC Glucose 342 H Hemoglobin A1c 11.1 H Lactic Acid Calcium 7.7 L Phosphorus Magnesium Direct Bilirubin AST ALT Alkaline Phosphatase Lactate Dehydrogenase Total Protein Albumin Ur Specific [place] Urine Blood Urine WBC (Auto) Vancomycin Trough Crossmatch 02/01/22 02/01/22 02/01/22 14:48 15:48 16:54 WBC RBC Hgb Hct MCV MCH RDW Plt Count Seg Neuts % (Manual) Lymphocytes % (Manual) Nucleated RBC % Seg Neutrophils # Man Lymphocytes # (Manual) Percent Retic Fibrinogen ABG pH POC ABG pO2 ABG pO2 ABG HCO3 ABG O2 Saturation ABG Base Excess ABG Hemoglobin Oxyhemoglobin Carboxyhemoglobin Sodium Potassium Chloride Carbon Dioxide BUN Creatinine Glucose POC Glucose 394 H 412 H 352 H Hemoglobin A1c Lactic Acid Calcium Phosphorus Magnesium Direct Bilirubin AST ALT Alkaline Phosphatase Lactate Dehydrogenase Total Protein Albumin Ur Specific [place] Urine Blood Urine WBC (Auto) Vancomycin Trough Crossmatch 02/01/22 02/01/22 02/01/22 18:23 18:53 19:26 WBC RBC Hgb Hct MCV MCH RDW Plt Count Seg Neuts % (Manual) Lymphocytes % (Manual) Nucleated RBC % Seg Neutrophils # Man Lymphocytes # (Manual) Percent Retic Fibrinogen ABG pH 7.331 L POC ABG pO2 ABG pO2 121.4 H ABG HCO3 ABG O2 Saturation ABG Base Excess -4.9 L ABG Hemoglobin 8.4 L Oxyhemoglobin Carboxyhemoglobin Sodium Potassium Chloride Carbon Dioxide BUN Creatinine Glucose POC Glucose 350 H 260 H Hemoglobin A1c Lactic Acid Calcium Phosphorus Magnesium Direct Bilirubin AST ALT Alkaline Phosphatase Lactate Dehydrogenase Total Protein Albumin Ur Specific [place] Urine Blood Urine WBC (Auto) Vancomycin Trough Crossmatch 02/01/22 02/01/22 02/01/22 20:20 21:38 22:41 WBC RBC Hgb Hct MCV MCH RDW Plt Count Seg Neuts % (Manual) Lymphocytes % (Manual) Nucleated RBC % Seg Neutrophils # Man Lymphocytes # (Manual) Percent Retic Fibrinogen ABG pH POC ABG pO2 ABG pO2 ABG HCO3 ABG O2 Saturation ABG Base Excess ABG Hemoglobin Oxyhemoglobin Carboxyhemoglobin Sodium Potassium Chloride Carbon Dioxide BUN Creatinine Glucose POC Glucose 266 H 195 H 150 H Hemoglobin A1c Lactic Acid Calcium Phosphorus Magnesium Direct Bilirubin AST ALT Alkaline Phosphatase Lactate Dehydrogenase Total Protein Albumin Ur Specific [place] Urine Blood Urine WBC (Auto) Vancomycin Trough Crossmatch 02/01/22 02/02/22 02/02/22 23:39 00:25 00:25 WBC RBC Hgb Hct MCV MCH RDW Plt Count Seg Neuts % (Manual) Lymphocytes % (Manual) Nucleated RBC % Seg Neutrophils # Man Lymphocytes # (Manual) Percent Retic Fibrinogen ABG pH POC ABG pO2 ABG pO2 ABG HCO3 ABG O2 Saturation ABG Base Excess ABG Hemoglobin Oxyhemoglobin Carboxyhemoglobin Sodium 156 H D Potassium 3.0 L Chloride 114.2 H Carbon Dioxide BUN Creatinine 0.5 L Glucose 63 L POC Glucose 125 H Hemoglobin A1c Lactic Acid 7.10 H* Calcium 8.1 L Phosphorus Magnesium Direct Bilirubin AST ALT Alkaline Phosphatase Lactate Dehydrogenase Total Protein Albumin Ur Specific [place] Urine Blood Urine WBC (Auto) Vancomycin Trough Crossmatch 02/02/22 02/02/22 02/02/22 04:00 04:00 04:35 WBC 1.4 L* RBC Hgb 8.5 L Hct 26.8 L D MCV 57 L MCH 18 L RDW 19.0 H Plt Count 129 L Seg Neuts % (Manual) 33.0 L Lymphocytes % (Manual) 57.0 H Nucleated RBC % Seg Neutrophils # Man 0.5 L Lymphocytes # (Manual) 0.8 L Percent Retic Fibrinogen ABG pH POC ABG pO2 ABG pO2 ABG HCO3 ABG O2 Saturation ABG Base Excess ABG Hemoglobin Oxyhemoglobin Carboxyhemoglobin Sodium 155 H Potassium Chloride 113.1 H Carbon Dioxide BUN Creatinine Glucose 159 H POC Glucose Hemoglobin A1c Lactic Acid 3.10 H* Calcium 7.6 L Phosphorus Magnesium Direct Bilirubin AST ALT Alkaline Phosphatase Lactate Dehydrogenase Total Protein Albumin Ur Specific [place] Urine Blood Urine WBC (Auto) Vancomycin Trough Crossmatch 02/02/22 02/02/22 02/02/22 04:37 04:49 05:43 WBC RBC Hgb Hct MCV MCH RDW Plt Count Seg Neuts % (Manual) Lymphocytes % (Manual) Nucleated RBC % Seg Neutrophils # Man Lymphocytes # (Manual) Percent Retic Fibrinogen ABG pH 7.528 H POC ABG pO2 79.9 L ABG pO2 ABG HCO3 ABG O2 Saturation ABG Base Excess ABG Hemoglobin 8.8 L Oxyhemoglobin Carboxyhemoglobin 0.2 L Sodium Potassium Chloride Carbon Dioxide BUN Creatinine Glucose POC Glucose 116 H 125 H Hemoglobin A1c Lactic Acid Calcium Phosphorus Magnesium Direct Bilirubin AST ALT Alkaline Phosphatase Lactate Dehydrogenase Total Protein Albumin Ur Specific [place] Urine Blood Urine WBC (Auto) Vancomycin Trough Crossmatch 02/02/22 02/02/22 02/02/22 06:52 09:02 09:05 WBC RBC Hgb Hct MCV MCH RDW Plt Count Seg Neuts % (Manual) Lymphocytes % (Manual) Nucleated RBC % Seg Neutrophils # Man Lymphocytes # (Manual) Percent Retic Fibrinogen ABG pH POC ABG pO2 ABG pO2 ABG HCO3 ABG O2 Saturation ABG Base Excess ABG Hemoglobin Oxyhemoglobin Carboxyhemoglobin Sodium 154 H Potassium 3.3 L Chloride 113.3 H Carbon Dioxide BUN Creatinine Glucose 35 L* POC Glucose 110 H 35 L Hemoglobin A1c Lactic Acid Calcium 7.4 L Phosphorus 1.70 L D Magnesium 2.50 H Direct Bilirubin AST ALT Alkaline Phosphatase Lactate Dehydrogenase Total Protein Albumin Ur Specific [place] Urine Blood Urine WBC (Auto) Vancomycin Trough Crossmatch 02/02/22 02/02/22 02/02/22 09:05 09:30 09:41 WBC 2.6 L RBC Hgb 8.0 L Hct 25.0 L MCV 57 L MCH 18 L RDW 18.8 H Plt Count 97 L Seg Neuts % (Manual) Lymphocytes % (Manual) 12.0 L Nucleated RBC % 10.0 H Seg Neutrophils # Man 1.7 L Lymphocytes # (Manual) 0.3 L Percent Retic Fibrinogen ABG pH POC ABG pO2 ABG pO2 ABG HCO3 ABG O2 Saturation ABG Base Excess ABG Hemoglobin Oxyhemoglobin Carboxyhemoglobin Sodium Potassium Chloride Carbon Dioxide BUN Creatinine Glucose POC Glucose 119 H Hemoglobin A1c Lactic Acid 7.10 H* Calcium Phosphorus Magnesium Direct Bilirubin AST ALT Alkaline Phosphatase Lactate Dehydrogenase Total Protein Albumin Ur Specific [place] Urine Blood Urine WBC (Auto) Vancomycin Trough Crossmatch 02/02/22 02/02/22 02/02/22 10:17 12:32 15:39 WBC RBC Hgb Hct MCV MCH RDW Plt Count Seg Neuts % (Manual) Lymphocytes % (Manual) Nucleated RBC % Seg Neutrophils # Man Lymphocytes # (Manual) Percent Retic Fibrinogen ABG pH POC ABG pO2 ABG pO2 ABG HCO3 ABG O2 Saturation ABG Base Excess ABG Hemoglobin Oxyhemoglobin Carboxyhemoglobin Sodium Potassium Chloride Carbon Dioxide BUN Creatinine Glucose POC Glucose 120 H 166 H 263 H Hemoglobin A1c Lactic Acid Calcium Phosphorus Magnesium Direct Bilirubin AST ALT Alkaline Phosphatase Lactate Dehydrogenase Total Protein Albumin Ur Specific [place] Urine Blood Urine WBC (Auto) Vancomycin Trough Crossmatch 02/02/22 02/02/22 02/02/22 17:07 17:50 Unknown WBC RBC Hgb Hct MCV MCH RDW Plt Count Seg Neuts % (Manual) Lymphocytes % (Manual) Nucleated RBC % Seg Neutrophils # Man Lymphocytes # (Manual) Percent Retic Fibrinogen ABG pH 7.457 H POC ABG pO2 ABG pO2 71.0 L ABG HCO3 ABG O2 Saturation 94.5 L ABG Base Excess ABG Hemoglobin 9.2 L Oxyhemoglobin 93.0 L Carboxyhemoglobin Sodium 147 H Potassium 5.5 H D Chloride 110.8 H Carbon Dioxide BUN Creatinine Glucose 271 H POC Glucose 231 H Hemoglobin A1c Lactic Acid Calcium 7.3 L Phosphorus Magnesium Direct Bilirubin AST ALT Alkaline Phosphatase Lactate Dehydrogenase Total Protein Albumin Ur Specific [place] Urine Blood Urine WBC (Auto) Vancomycin Trough Crossmatch 02/03/22 02/03/22 02/03/22 00:08 04:00 04:00 WBC 3.7 L RBC Hgb 8.0 L Hct 25.5 L MCV 58 L MCH 18 L RDW 18.2 H Plt Count 79 L Seg Neuts % (Manual) 76.0 H Lymphocytes % (Manual) 2.0 L Nucleated RBC % 4.0 H Seg Neutrophils # Man Lymphocytes # (Manual) 0.1 L Percent Retic Fibrinogen ABG pH POC ABG pO2 ABG pO2 ABG HCO3 ABG O2 Saturation ABG Base Excess ABG Hemoglobin Oxyhemoglobin Carboxyhemoglobin Sodium 147 H Potassium Chloride 112.9 H Carbon Dioxide BUN Creatinine Glucose 281 H POC Glucose 231 H Hemoglobin A1c Lactic Acid Calcium 7.8 L Phosphorus Magnesium Direct Bilirubin 0.3 H AST 172 H ALT 89 H Alkaline Phosphatase Lactate Dehydrogenase Total Protein 4.7 L D Albumin 2.0 L Ur Specific [place] Urine Blood Urine WBC (Auto) Vancomycin Trough Crossmatch 02/03/22 02/03/22 02/03/22 04:20 05:26 11:38 WBC RBC Hgb Hct MCV MCH RDW Plt Count Seg Neuts % (Manual) Lymphocytes % (Manual) Nucleated RBC % Seg Neutrophils # Man Lymphocytes # (Manual) Percent Retic Fibrinogen ABG pH POC ABG pO2 ABG pO2 75.5 L ABG HCO3 ABG O2 Saturation ABG Base Excess -2.8 L ABG Hemoglobin 8.1 L Oxyhemoglobin 94.6 L Carboxyhemoglobin Sodium Potassium Chloride Carbon Dioxide BUN Creatinine Glucose POC Glucose 247 H 196 H Hemoglobin A1c Lactic Acid Calcium Phosphorus Magnesium Direct Bilirubin AST ALT Alkaline Phosphatase Lactate Dehydrogenase Total Protein Albumin Ur Specific [place] Urine Blood Urine WBC (Auto) Vancomycin Trough Crossmatch 02/03/22 02/04/22 02/04/22 16:27 02:44 03:18 WBC 1.2 L* RBC Hgb 8.2 L Hct 26.6 L MCV 59 L MCH 18 L RDW 19.6 H Plt Count 50 L Seg Neuts % (Manual) Lymphocytes % (Manual) Nucleated RBC % Seg Neutrophils # Man Lymphocytes # (Manual) Percent Retic Fibrinogen ABG pH POC ABG pO2 ABG pO2 ABG HCO3 ABG O2 Saturation ABG Base Excess ABG Hemoglobin Oxyhemoglobin Carboxyhemoglobin Sodium 148 H Potassium Chloride 116.3 H Carbon Dioxide BUN Creatinine Glucose 139 H POC Glucose 119 H Hemoglobin A1c Lactic Acid Calcium Phosphorus Magnesium Direct Bilirubin 0.3 H AST 92 H ALT 76 H Alkaline Phosphatase Lactate Dehydrogenase Total Protein 4.7 L Albumin 1.6 L Ur Specific [place] Urine Blood Urine WBC (Auto) Vancomycin Trough Crossmatch 02/04/22 02/04/22 02/04/22 05:15 05:26 09:15 WBC RBC Hgb Hct MCV MCH RDW Plt Count Seg Neuts % (Manual) Lymphocytes % (Manual) Nucleated RBC % Seg Neutrophils # Man Lymphocytes # (Manual) Percent Retic Fibrinogen ABG pH 7.311 L POC ABG pO2 ABG pO2 50.1 L ABG HCO3 ABG O2 Saturation 83.6 L ABG Base Excess ABG Hemoglobin 8.6 L Oxyhemoglobin 81.9 L Carboxyhemoglobin Sodium Potassium Chloride Carbon Dioxide BUN Creatinine Glucose POC Glucose 115 H Hemoglobin A1c Lactic Acid Calcium Phosphorus Magnesium Direct Bilirubin AST ALT Alkaline Phosphatase Lactate Dehydrogenase Total Protein Albumin Ur Specific [place] Urine Blood Large A Urine WBC (Auto) 12.0 H Vancomycin Trough Crossmatch 02/04/22 02/04/22 02/04/22 11:17 14:37 17:04 WBC RBC Hgb Hct MCV MCH RDW Plt Count Seg Neuts % (Manual) Lymphocytes % (Manual) Nucleated RBC % Seg Neutrophils # Man Lymphocytes # (Manual) Percent Retic Fibrinogen ABG pH POC ABG pO2 ABG pO2 ABG HCO3 ABG O2 Saturation ABG Base Excess ABG Hemoglobin Oxyhemoglobin Carboxyhemoglobin Sodium Potassium Chloride Carbon Dioxide BUN Creatinine Glucose POC Glucose 166 H 109 H Hemoglobin A1c Lactic Acid Calcium Phosphorus Magnesium Direct Bilirubin AST 87 H ALT 75 H Alkaline Phosphatase 137 H Lactate Dehydrogenase Total Protein 4.6 L Albumin 1.7 L Ur Specific [place] Urine Blood Urine WBC (Auto) Vancomycin Trough Crossmatch 02/04/22 02/04/22 02/04/22 20:15 20:22 20:22 WBC RBC Hgb 7.1 L Hct 22.6 L MCV MCH RDW Plt Count Seg Neuts % (Manual) Lymphocytes % (Manual) Nucleated RBC % Seg Neutrophils # Man Lymphocytes # (Manual) Percent Retic Fibrinogen ABG pH 7.292 L POC ABG pO2 ABG pO2 40.3 L ABG HCO3 ABG O2 Saturation 72.1 L ABG Base Excess -2.2 L ABG Hemoglobin 7.0 L Oxyhemoglobin 70.5 L Carboxyhemoglobin Sodium Potassium Chloride Carbon Dioxide BUN Creatinine Glucose POC Glucose Hemoglobin A1c Lactic Acid 3.00 H* Calcium Phosphorus Magnesium Direct Bilirubin AST ALT Alkaline Phosphatase Lactate Dehydrogenase Total Protein Albumin Ur Specific [place] Urine Blood Urine WBC (Auto) Vancomycin Trough Crossmatch 02/04/22 02/04/22 02/05/22 20:22 23:03 04:40 WBC 3.1 L RBC Hgb 9.6 L Hct 30.1 L D MCV 64 L MCH 20 L RDW 26.9 H Plt Count 50 L Seg Neuts % (Manual) Lymphocytes % (Manual) Nucleated RBC % Seg Neutrophils # Man Lymphocytes # (Manual) Percent Retic Fibrinogen ABG pH POC ABG pO2 ABG pO2 ABG HCO3 ABG O2 Saturation ABG Base Excess ABG Hemoglobin Oxyhemoglobin Carboxyhemoglobin Sodium Potassium Chloride Carbon Dioxide BUN Creatinine Glucose POC Glucose 171 H Hemoglobin A1c Lactic Acid Calcium Phosphorus Magnesium Direct Bilirubin AST ALT Alkaline Phosphatase Lactate Dehydrogenase Total Protein Albumin Ur Specific [place] Urine Blood Urine WBC (Auto) Vancomycin Trough Crossmatch See Detail 02/05/22 02/05/22 02/05/22 04:40 04:40 04:43 WBC RBC Hgb Hct MCV MCH RDW Plt Count Seg Neuts % (Manual) Lymphocytes % (Manual) Nucleated RBC % Seg Neutrophils # Man Lymphocytes # (Manual) Percent Retic Fibrinogen ABG pH POC ABG pO2 ABG pO2 ABG HCO3 ABG O2 Saturation ABG Base Excess ABG Hemoglobin Oxyhemoglobin Carboxyhemoglobin Sodium 148 H Potassium Chloride 113.2 H Carbon Dioxide BUN 21 H Creatinine Glucose 155 H POC Glucose 156 H Hemoglobin A1c Lactic Acid Calcium Phosphorus Magnesium Direct Bilirubin AST 84 H ALT 67 H Alkaline Phosphatase 152 H Lactate Dehydrogenase 879 H Total Protein 5.0 L Albumin 1.8 L Ur Specific [place] Urine Blood Urine WBC (Auto) Vancomycin Trough Crossmatch 02/05/22 02/05/22 02/05/22 08:10 08:48 08:48 WBC RBC Hgb Hct MCV MCH RDW Plt Count Seg Neuts % (Manual) Lymphocytes % (Manual) Nucleated RBC % Seg Neutrophils # Man Lymphocytes # (Manual) Percent Retic Fibrinogen 795 H ABG pH POC ABG pO2 ABG pO2 57.1 L ABG HCO3 27.8 H ABG O2 Saturation 90.8 L ABG Base Excess ABG Hemoglobin 8.5 L Oxyhemoglobin 88.9 L Carboxyhemoglobin Sodium Potassium Chloride Carbon Dioxide BUN Creatinine Glucose POC Glucose Hemoglobin A1c Lactic Acid 2.90 H* Calcium Phosphorus Magnesium Direct Bilirubin AST ALT Alkaline Phosphatase Lactate Dehydrogenase Total Protein Albumin Ur Specific [place] Urine Blood Urine WBC (Auto) Vancomycin Trough Crossmatch 02/05/22 02/05/22 02/05/22 11:46 17:45 Unknown WBC RBC Hgb Hct MCV MCH RDW Plt Count Seg Neuts % (Manual) Lymphocytes % (Manual) Nucleated RBC % Seg Neutrophils # Man Lymphocytes # (Manual) Percent Retic Fibrinogen ABG pH POC ABG pO2 ABG pO2 ABG HCO3 ABG O2 Saturation ABG Base Excess ABG Hemoglobin Oxyhemoglobin Carboxyhemoglobin Sodium Potassium Chloride Carbon Dioxide BUN Creatinine Glucose POC Glucose 61 L 133 H Hemoglobin A1c Lactic Acid Calcium Phosphorus Magnesium Direct Bilirubin AST ALT Alkaline Phosphatase Lactate Dehydrogenase Total Protein Albumin Ur Specific [place] Urine Blood Urine WBC (Auto) Vancomycin Trough 28.6 H Crossmatch 02/05/22 02/06/22 02/06/22 23:59 04:33 04:33 WBC RBC Hgb 8.4 L Hct 26.1 L MCV 64 L MCH 21 L RDW 26.2 H Plt Count 38 L Seg Neuts % (Manual) Lymphocytes % (Manual) Nucleated RBC % Seg Neutrophils # Man Lymphocytes # (Manual) Percent Retic Fibrinogen ABG pH POC ABG pO2 ABG pO2 ABG HCO3 ABG O2 Saturation ABG Base Excess ABG Hemoglobin Oxyhemoglobin Carboxyhemoglobin Sodium 146 H Potassium 3.4 L Chloride Carbon Dioxide 31 H BUN 21 H Creatinine Glucose 230 H POC Glucose 275 H Hemoglobin A1c Lactic Acid Calcium Phosphorus Magnesium Direct Bilirubin AST 70 H ALT Alkaline Phosphatase 197 H Lactate Dehydrogenase Total Protein 5.3 L Albumin 2.4 L Ur Specific [place] Urine Blood Urine WBC (Auto) Vancomycin Trough Crossmatch 02/06/22 02/06/22 02/06/22 04:33 04:50 06:19 WBC RBC Hgb Hct MCV MCH RDW Plt Count Seg Neuts % (Manual) Lymphocytes % (Manual) Nucleated RBC % Seg Neutrophils # Man Lymphocytes # (Manual) Percent Retic Fibrinogen ABG pH 7.330 L POC ABG pO2 ABG pO2 57.9 L ABG HCO3 31.3 H ABG O2 Saturation 89.6 L ABG Base Excess 4.5 H ABG Hemoglobin 8.1 L Oxyhemoglobin 87.7 L Carboxyhemoglobin Sodium Potassium Chloride Carbon Dioxide BUN Creatinine Glucose POC Glucose 219 H Hemoglobin A1c Lactic Acid 3.10 H* Calcium Phosphorus Magnesium Direct Bilirubin AST ALT Alkaline Phosphatase Lactate Dehydrogenase Total Protein Albumin Ur Specific [place] Urine Blood Urine WBC (Auto) Vancomycin Trough Crossmatch 02/06/22 02/06/22 02/06/22 11:24 11:50 12:26 WBC RBC Hgb Hct MCV MCH RDW Plt Count Seg Neuts % (Manual) Lymphocytes % (Manual) Nucleated RBC % Seg Neutrophils # Man Lymphocytes # (Manual) Percent Retic Fibrinogen ABG pH 7.298 L POC ABG pO2 ABG pO2 43.3 L ABG HCO3 36.7 H ABG O2 Saturation 74.9 L ABG Base Excess 8.8 H ABG Hemoglobin 8.2 L Oxyhemoglobin 73.3 L Carboxyhemoglobin Sodium Potassium Chloride Carbon Dioxide BUN Creatinine Glucose POC Glucose 118 H Hemoglobin A1c Lactic Acid 2.50 H* Calcium Phosphorus Magnesium Direct Bilirubin AST ALT Alkaline Phosphatase Lactate Dehydrogenase Total Protein Albumin Ur Specific [place] Urine Blood Urine WBC (Auto) Vancomycin Trough Crossmatch 02/06/22 02/06/22 02/07/22 17:41 21:41 00:17 WBC RBC Hgb Hct MCV MCH RDW Plt Count Seg Neuts % (Manual) Lymphocytes % (Manual) Nucleated RBC % Seg Neutrophils # Man Lymphocytes # (Manual) Percent Retic Fibrinogen ABG pH POC ABG pO2 ABG pO2 ABG HCO3 ABG O2 Saturation ABG Base Excess ABG Hemoglobin Oxyhemoglobin Carboxyhemoglobin Sodium Potassium Chloride Carbon Dioxide BUN Creatinine Glucose POC Glucose 208 H 282 H 342 H Hemoglobin A1c Lactic Acid Calcium Phosphorus Magnesium Direct Bilirubin AST ALT Alkaline Phosphatase Lactate Dehydrogenase Total Protein Albumin Ur Specific [place] Urine Blood Urine WBC (Auto) Vancomycin Trough Crossmatch 02/07/22 02/07/22 02/07/22 00:19 04:12 04:12 WBC 13.1 H RBC Hgb 8.5 L Hct 26.4 L MCV 62 L MCH 20 L RDW 24.2 H Plt Count 57 L Seg Neuts % (Manual) Lymphocytes % (Manual) Nucleated RBC % Seg Neutrophils # Man Lymphocytes # (Manual) Percent Retic Fibrinogen ABG pH POC ABG pO2 ABG pO2 ABG HCO3 ABG O2 Saturation ABG Base Excess ABG Hemoglobin Oxyhemoglobin Carboxyhemoglobin Sodium 149 H Potassium 3.1 L Chloride Carbon Dioxide 38 H D BUN 23 H Creatinine Glucose 298 H POC Glucose 209 H Hemoglobin A1c Lactic Acid Calcium Phosphorus 2.10 L Magnesium Direct Bilirubin AST 49 H ALT Alkaline Phosphatase 248 H Lactate Dehydrogenase Total Protein 5.4 L Albumin 2.7 L Ur Specific [place] Urine Blood Urine WBC (Auto) Vancomycin Trough Crossmatch 02/07/22 02/07/22 02/07/22 04:40 07:09 07:13 WBC RBC Hgb Hct MCV MCH RDW Plt Count Seg Neuts % (Manual) Lymphocytes % (Manual) Nucleated RBC % Seg Neutrophils # Man Lymphocytes # (Manual) Percent Retic Fibrinogen ABG pH 7.474 H POC ABG pO2 ABG pO2 62.1 L ABG HCO3 39.1 H ABG O2 Saturation 94.7 L ABG Base Excess 13.9 H ABG Hemoglobin 8.6 L Oxyhemoglobin 93.0 L Carboxyhemoglobin Sodium Potassium Chloride Carbon Dioxide BUN Creatinine Glucose POC Glucose 399 H 418 H Hemoglobin A1c Lactic Acid Calcium Phosphorus Magnesium Direct Bilirubin AST ALT Alkaline Phosphatase Lactate Dehydrogenase Total Protein Albumin Ur Specific [place] Urine Blood Urine WBC (Auto) Vancomycin Trough Crossmatch 02/07/22 02/07/22 02/07/22 12:20 17:29 23:37 WBC RBC Hgb Hct MCV MCH RDW Plt Count Seg Neuts % (Manual) Lymphocytes % (Manual) Nucleated RBC % Seg Neutrophils # Man Lymphocytes # (Manual) Percent Retic Fibrinogen ABG pH POC ABG pO2 ABG pO2 ABG HCO3 ABG O2 Saturation ABG Base Excess ABG Hemoglobin Oxyhemoglobin Carboxyhemoglobin Sodium Potassium Chloride Carbon Dioxide BUN Creatinine Glucose POC Glucose 229 H 159 H 236 H Hemoglobin A1c Lactic Acid Calcium Phosphorus Magnesium Direct Bilirubin AST ALT Alkaline Phosphatase Lactate Dehydrogenase Total Protein Albumin Ur Specific [place] Urine Blood Urine WBC (Auto) Vancomycin Trough Crossmatch 02/08/22 02/08/22 02/08/22 03:55 03:55 05:20 WBC 14.7 H RBC Hgb 7.7 L Hct 25.0 L MCV 64 L MCH 20 L RDW 25.1 H Plt Count 79 L Seg Neuts % (Manual) Lymphocytes % (Manual) Nucleated RBC % Seg Neutrophils # Man Lymphocytes # (Manual) Percent Retic 0.65 L Fibrinogen ABG pH POC ABG pO2 ABG pO2 ABG HCO3 ABG O2 Saturation ABG Base Excess ABG Hemoglobin Oxyhemoglobin Carboxyhemoglobin Sodium Potassium 3.0 L Chloride 93.9 L Carbon Dioxide 44 H* BUN 30 H Creatinine Glucose 229 H POC Glucose 235 H Hemoglobin A1c Lactic Acid Calcium 8.3 L Phosphorus 2.30 L Magnesium Direct Bilirubin AST 77 H ALT Alkaline Phosphatase 246 H Lactate Dehydrogenase Total Protein 5.2 L Albumin 2.7 L Ur Specific [place] Urine Blood Urine WBC (Auto) Vancomycin Trough Crossmatch 02/08/22 02/08/22 02/08/22 11:47 16:36 21:41 WBC RBC Hgb Hct MCV MCH RDW Plt Count Seg Neuts % (Manual) Lymphocytes % (Manual) Nucleated RBC % Seg Neutrophils # Man Lymphocytes # (Manual) Percent Retic Fibrinogen ABG pH POC ABG pO2 ABG pO2 ABG HCO3 ABG O2 Saturation ABG Base Excess ABG Hemoglobin Oxyhemoglobin Carboxyhemoglobin Sodium Potassium Chloride Carbon Dioxide BUN Creatinine Glucose POC Glucose 193 H 205 H 292 H Hemoglobin A1c Lactic Acid Calcium Phosphorus Magnesium Direct Bilirubin AST ALT Alkaline Phosphatase Lactate Dehydrogenase Total Protein Albumin Ur Specific [place] Urine Blood Urine WBC (Auto) Vancomycin Trough Crossmatch 02/08/22 02/08/22 02/09/22 Unknown 23:59 04:00 WBC 16.4 H RBC Hgb 8.2 L Hct 26.3 L MCV 63 L MCH 20 L RDW 23.9 H Plt Count 128 L Seg Neuts % (Manual) Lymphocytes % (Manual) Nucleated RBC % Seg Neutrophils # Man Lymphocytes # (Manual) Percent Retic Fibrinogen ABG pH 7.488 H POC ABG pO2 ABG pO2 63.1 L ABG HCO3 45.5 H ABG O2 Saturation 94.1 L ABG Base Excess 19.8 H ABG Hemoglobin 8.7 L Oxyhemoglobin 92.4 L Carboxyhemoglobin Sodium Potassium Chloride Carbon Dioxide BUN Creatinine Glucose POC Glucose 342 H Hemoglobin A1c Lactic Acid Calcium Phosphorus Magnesium Direct Bilirubin AST ALT Alkaline Phosphatase Lactate Dehydrogenase Total Protein Albumin Ur Specific [place] Urine Blood Urine WBC (Auto) Vancomycin Trough Crossmatch 02/09/22 02/09/22 02/09/22 04:00 05:30 06:07 WBC RBC Hgb Hct MCV MCH RDW Plt Count Seg Neuts % (Manual) Lymphocytes % (Manual) Nucleated RBC % Seg Neutrophils # Man Lymphocytes # (Manual) Percent Retic Fibrinogen ABG pH 7.539 H POC ABG pO2 ABG pO2 210.4 H ABG HCO3 42.4 H ABG O2 Saturation 99.3 H ABG Base Excess 18.0 H ABG Hemoglobin 7.8 L Oxyhemoglobin Carboxyhemoglobin Sodium 149 H Potassium 3.1 L Chloride 97.6 L Carbon Dioxide 42 H* BUN 27 H Creatinine Glucose 257 H POC Glucose 260 H Hemoglobin A1c Lactic Acid Calcium 8.2 L Phosphorus 1.90 L Magnesium Direct Bilirubin AST 81 H ALT Alkaline Phosphatase 229 H Lactate Dehydrogenase Total Protein 5.4 L Albumin 2.6 L Ur Specific [place] Urine Blood Urine WBC (Auto) Vancomycin Trough Crossmatch 02/09/22 02/09/22 02/09/22 11:16 17:33 20:25 WBC RBC Hgb Hct MCV MCH RDW Plt Count Seg Neuts % (Manual) Lymphocytes % (Manual) Nucleated RBC % Seg Neutrophils # Man Lymphocytes # (Manual) Percent Retic Fibrinogen ABG pH 7.504 H POC ABG pO2 ABG pO2 79.7 L ABG HCO3 44.2 H ABG O2 Saturation ABG Base Excess 19.2 H ABG Hemoglobin 7.0 L Oxyhemoglobin Carboxyhemoglobin Sodium Potassium Chloride Carbon Dioxide BUN Creatinine Glucose POC Glucose 184 H 123 H Hemoglobin A1c Lactic Acid Calcium Phosphorus Magnesium Direct Bilirubin AST ALT Alkaline Phosphatase Lactate Dehydrogenase Total Protein Albumin Ur Specific [place] Urine Blood Urine WBC (Auto) Vancomycin Trough Crossmatch 02/09/22 02/09/22 02/10/22 21:16 23:13 03:40 WBC 17.2 H RBC Hgb 7.9 L Hct 25.3 L MCV 63 L MCH 20 L RDW 20.7 H Plt Count Seg Neuts % (Manual) Lymphocytes % (Manual) Nucleated RBC % Seg Neutrophils # Man Lymphocytes # (Manual) Percent Retic Fibrinogen ABG pH POC ABG pO2 ABG pO2 ABG HCO3 ABG O2 Saturation ABG Base Excess ABG Hemoglobin Oxyhemoglobin Carboxyhemoglobin Sodium Potassium Chloride Carbon Dioxide BUN Creatinine Glucose POC Glucose 186 H 276 H Hemoglobin A1c Lactic Acid Calcium Phosphorus Magnesium Direct Bilirubin AST ALT Alkaline Phosphatase Lactate Dehydrogenase Total Protein Albumin Ur Specific [place] Urine Blood Urine WBC (Auto) Vancomycin Trough Crossmatch 02/10/22 02/10/22 02/10/22 03:40 04:17 04:17 WBC RBC Hgb Hct MCV MCH RDW Plt Count Seg Neuts % (Manual) Lymphocytes % (Manual) Nucleated RBC % Seg Neutrophils # Man Lymphocytes # (Manual) Percent Retic Fibrinogen ABG pH 7.468 H POC ABG pO2 ABG pO2 124.2 H ABG HCO3 42.1 H ABG O2 Saturation ABG Base Excess 16.6 H ABG Hemoglobin 7.6 L Oxyhemoglobin Carboxyhemoglobin Sodium 149 H Potassium 3.2 L Chloride Carbon Dioxide 38 H BUN 26 H Creatinine 0.5 L Glucose 188 H POC Glucose 189 H Hemoglobin A1c Lactic Acid Calcium 8.3 L Phosphorus 2.10 L Magnesium Direct Bilirubin AST 120 H ALT 80 H Alkaline Phosphatase 207 H Lactate Dehydrogenase Total Protein 5.3 L Albumin 2.4 L Ur Specific [place] Urine Blood Urine WBC (Auto) Vancomycin Trough Crossmatch 02/10/22 02/10/22 02/10/22 11:46 16:27 21:15 WBC RBC Hgb Hct MCV MCH RDW Plt Count Seg Neuts % (Manual) Lymphocytes % (Manual) Nucleated RBC % Seg Neutrophils # Man Lymphocytes # (Manual) Percent Retic Fibrinogen ABG pH POC ABG pO2 ABG pO2 ABG HCO3 ABG O2 Saturation ABG Base Excess ABG Hemoglobin Oxyhemoglobin Carboxyhemoglobin Sodium Potassium Chloride Carbon Dioxide BUN Creatinine Glucose POC Glucose 189 H 198 H 261 H Hemoglobin A1c Lactic Acid Calcium Phosphorus Magnesium Direct Bilirubin AST ALT Alkaline Phosphatase Lactate Dehydrogenase Total Protein Albumin Ur Specific [place] Urine Blood Urine WBC (Auto) Vancomycin Trough Crossmatch 02/10/22 02/11/22 02/11/22 23:20 04:00 04:00 WBC 20.8 H RBC Hgb 7.7 L Hct 24.5 L MCV 64 L MCH 20 L RDW 23.5 H Plt Count Seg Neuts % (Manual) Lymphocytes % (Manual) Nucleated RBC % Seg Neutrophils # Man Lymphocytes # (Manual) Percent Retic Fibrinogen ABG pH POC ABG pO2 ABG pO2 ABG HCO3 ABG O2 Saturation ABG Base Excess ABG Hemoglobin Oxyhemoglobin Carboxyhemoglobin Sodium 148 H Potassium 3.3 L Chloride Carbon Dioxide 39 H BUN 27 H Creatinine 0.5 L Glucose 218 H POC Glucose 196 H Hemoglobin A1c Lactic Acid Calcium 8.3 L Phosphorus Magnesium Direct Bilirubin AST ALT Alkaline Phosphatase Lactate Dehydrogenase Total Protein Albumin Ur Specific [place] Urine Blood Urine WBC (Auto) Vancomycin Trough Crossmatch 02/11/22 02/11/22 02/11/22 05:00 05:57 11:15 WBC RBC Hgb Hct MCV MCH RDW Plt Count Seg Neuts % (Manual) Lymphocytes % (Manual) Nucleated RBC % Seg Neutrophils # Man Lymphocytes # (Manual) Percent Retic Fibrinogen ABG pH 7.459 H POC ABG pO2 ABG pO2 99.8 H ABG HCO3 41.4 H ABG O2 Saturation ABG Base Excess 15.9 H ABG Hemoglobin 7.5 L Oxyhemoglobin Carboxyhemoglobin Sodium Potassium Chloride Carbon Dioxide BUN Creatinine Glucose POC Glucose 173 H 204 H Hemoglobin A1c Lactic Acid Calcium Phosphorus Magnesium Direct Bilirubin AST ALT Alkaline Phosphatase Lactate Dehydrogenase Total Protein Albumin Ur Specific [place] Urine Blood Urine WBC (Auto) Vancomycin Trough Crossmatch 02/11/22 02/11/22 02/12/22 17:15 21:21 00:29 WBC RBC Hgb Hct MCV MCH RDW Plt Count Seg Neuts % (Manual) Lymphocytes % (Manual) Nucleated RBC % Seg Neutrophils # Man Lymphocytes # (Manual) Percent Retic Fibrinogen ABG pH POC ABG pO2 ABG pO2 ABG HCO3 ABG O2 Saturation ABG Base Excess ABG Hemoglobin Oxyhemoglobin Carboxyhemoglobin Sodium Potassium Chloride Carbon Dioxide BUN Creatinine Glucose POC Glucose 157 H 183 H 197 H Hemoglobin A1c Lactic Acid Calcium Phosphorus Magnesium Direct Bilirubin AST ALT Alkaline Phosphatase Lactate Dehydrogenase Total Protein Albumin Ur Specific [place] Urine Blood Urine WBC (Auto) Vancomycin Trough Crossmatch 02/12/22 02/12/22 02/12/22 04:17 04:17 05:00 WBC 23.9 H RBC Hgb 7.5 L Hct 24.2 L MCV 64 L MCH 20 L RDW 25.5 H Plt Count Seg Neuts % (Manual) Lymphocytes % (Manual) Nucleated RBC % Seg Neutrophils # Man Lymphocytes # (Manual) Percent Retic Fibrinogen ABG pH 7.467 H POC ABG pO2 ABG pO2 97.9 H ABG HCO3 40.7 H ABG O2 Saturation ABG Base Excess 15.3 H ABG Hemoglobin 7.5 L Oxyhemoglobin Carboxyhemoglobin Sodium 146 H Potassium Chloride Carbon Dioxide 39 H BUN 25 H Creatinine 0.4 L Glucose 135 H POC Glucose Hemoglobin A1c Lactic Acid Calcium Phosphorus Magnesium Direct Bilirubin AST ALT Alkaline Phosphatase Lactate Dehydrogenase Total Protein Albumin Ur Specific [place] Urine Blood Urine WBC (Auto) Vancomycin Trough Crossmatch 02/12/22 02/12/22 02/12/22 05:53 12:31 17:54 WBC RBC Hgb Hct MCV MCH RDW Plt Count Seg Neuts % (Manual) Lymphocytes % (Manual) Nucleated RBC % Seg Neutrophils # Man Lymphocytes # (Manual) Percent Retic Fibrinogen ABG pH POC ABG pO2 ABG pO2 ABG HCO3 ABG O2 Saturation ABG Base Excess ABG Hemoglobin Oxyhemoglobin Carboxyhemoglobin Sodium Potassium Chloride Carbon Dioxide BUN Creatinine Glucose POC Glucose 114 H 124 H 159 H Hemoglobin A1c Lactic Acid Calcium Phosphorus Magnesium Direct Bilirubin AST ALT Alkaline Phosphatase Lactate Dehydrogenase Total Protein Albumin Ur Specific [place] Urine Blood Urine WBC (Auto) Vancomycin Trough Crossmatch 02/12/22 02/13/22 02/13/22 22:09 03:40 04:00 WBC 23.6 H RBC 3.42 L Hgb 6.7 L Hct 21.7 L MCV 64 L MCH 20 L RDW 27.3 H Plt Count Seg Neuts % (Manual) Lymphocytes % (Manual) Nucleated RBC % Seg Neutrophils # Man Lymphocytes # (Manual) Percent Retic Fibrinogen ABG pH 7.465 H POC ABG pO2 ABG pO2 104.3 H ABG HCO3 39.4 H ABG O2 Saturation ABG Base Excess 14.3 H ABG Hemoglobin 6.7 L Oxyhemoglobin Carboxyhemoglobin Sodium Potassium Chloride Carbon Dioxide BUN Creatinine Glucose POC Glucose 160 H Hemoglobin A1c Lactic Acid Calcium Phosphorus Magnesium Direct Bilirubin AST ALT Alkaline Phosphatase Lactate Dehydrogenase Total Protein Albumin Ur Specific [place] Urine Blood Urine WBC (Auto) Vancomycin Trough Crossmatch 02/13/22 02/13/22 02/13/22 04:00 06:05 09:41 WBC RBC Hgb Hct MCV MCH RDW Plt Count Seg Neuts % (Manual) Lymphocytes % (Manual) Nucleated RBC % Seg Neutrophils # Man Lymphocytes # (Manual) Percent Retic Fibrinogen ABG pH POC ABG pO2 ABG pO2 ABG HCO3 ABG O2 Saturation ABG Base Excess ABG Hemoglobin Oxyhemoglobin Carboxyhemoglobin Sodium 146 H Potassium Chloride Carbon Dioxide 38 H BUN 25 H Creatinine 0.4 L Glucose 235 H POC Glucose 283 H Hemoglobin A1c Lactic Acid Calcium 8.0 L Phosphorus Magnesium Direct Bilirubin AST ALT 58 H Alkaline Phosphatase 143 H Lactate Dehydrogenase Total Protein 4.7 L Albumin 2.2 L Ur Specific [place] Urine Blood Urine WBC (Auto) Vancomycin Trough Crossmatch See Detail 02/13/22 02/13/22 02/13/22 11:37 18:30 21:47 WBC RBC Hgb Hct MCV MCH RDW Plt Count Seg Neuts % (Manual) Lymphocytes % (Manual) Nucleated RBC % Seg Neutrophils # Man Lymphocytes # (Manual) Percent Retic Fibrinogen ABG pH POC ABG pO2 ABG pO2 ABG HCO3 ABG O2 Saturation ABG Base Excess ABG Hemoglobin Oxyhemoglobin Carboxyhemoglobin Sodium Potassium Chloride Carbon Dioxide BUN Creatinine Glucose POC Glucose 132 H 187 H 279 H Hemoglobin A1c Lactic Acid Calcium Phosphorus Magnesium Direct Bilirubin AST ALT Alkaline Phosphatase Lactate Dehydrogenase Total Protein Albumin Ur Specific [place] Urine Blood Urine WBC (Auto) Vancomycin Trough Crossmatch 02/14/22 02/14/22 02/14/22 01:07 04:35 04:40 WBC 24.5 H RBC Hgb 9.4 L Hct 28.8 L D MCV 69 L MCH 23 L RDW 30.3 H Plt Count Seg Neuts % (Manual) Lymphocytes % (Manual) Nucleated RBC % Seg Neutrophils # Man Lymphocytes # (Manual) Percent Retic Fibrinogen ABG pH 7.484 H POC ABG pO2 ABG pO2 101.5 H ABG HCO3 35.8 H ABG O2 Saturation ABG Base Excess 11.1 H ABG Hemoglobin 9.4 L Oxyhemoglobin Carboxyhemoglobin Sodium Potassium Chloride Carbon Dioxide BUN Creatinine Glucose POC Glucose 267 H Hemoglobin A1c Lactic Acid Calcium Phosphorus Magnesium Direct Bilirubin AST ALT Alkaline Phosphatase Lactate Dehydrogenase Total Protein Albumin Ur Specific [place] Urine Blood Urine WBC (Auto) Vancomycin Trough Crossmatch 02/14/22 02/14/22 02/14/22 06:16 09:03 11:20 WBC RBC Hgb Hct MCV MCH RDW Plt Count Seg Neuts % (Manual) Lymphocytes % (Manual) Nucleated RBC % Seg Neutrophils # Man Lymphocytes # (Manual) Percent Retic Fibrinogen ABG pH POC ABG pO2 ABG pO2 ABG HCO3 ABG O2 Saturation ABG Base Excess ABG Hemoglobin Oxyhemoglobin Carboxyhemoglobin Sodium Potassium Chloride Carbon Dioxide 39 H BUN 20 H Creatinine 0.4 L Glucose 144 H POC Glucose 183 H 42 L Hemoglobin A1c Lactic Acid Calcium 8.3 L Phosphorus Magnesium Direct Bilirubin AST ALT Alkaline Phosphatase Lactate Dehydrogenase Total Protein Albumin Ur Specific [place] Urine Blood Urine WBC (Auto) Vancomycin Trough Crossmatch 02/14/22 02/14/22 02/14/22 18:07 18:10 18:36 WBC RBC Hgb Hct MCV MCH RDW Plt Count Seg Neuts % (Manual) Lymphocytes % (Manual) Nucleated RBC % Seg Neutrophils # Man Lymphocytes # (Manual) Percent Retic Fibrinogen ABG pH 7.518 H POC ABG pO2 ABG pO2 97.1 H ABG HCO3 38.8 H ABG O2 Saturation ABG Base Excess 13.8 H ABG Hemoglobin Oxyhemoglobin Carboxyhemoglobin Sodium Potassium Chloride Carbon Dioxide BUN Creatinine Glucose POC Glucose 29 L 143 H Hemoglobin A1c Lactic Acid Calcium Phosphorus Magnesium Direct Bilirubin AST ALT Alkaline Phosphatase Lactate Dehydrogenase Total Protein Albumin Ur Specific [place] Urine Blood Urine WBC (Auto) Vancomycin Trough Crossmatch 02/14/22 02/15/22 02/15/22 23:44 03:31 05:23 WBC 20.1 H RBC Hgb 8.4 L Hct 26.6 L MCV 69 L MCH 22 L RDW 31.5 H Plt Count Seg Neuts % (Manual) Lymphocytes % (Manual) Nucleated RBC % Seg Neutrophils # Man Lymphocytes # (Manual) Percent Retic Fibrinogen ABG pH POC ABG pO2 ABG pO2 ABG HCO3 ABG O2 Saturation ABG Base Excess ABG Hemoglobin Oxyhemoglobin Carboxyhemoglobin Sodium Potassium Chloride Carbon Dioxide BUN Creatinine Glucose POC Glucose 229 H 232 H Hemoglobin A1c Lactic Acid Calcium Phosphorus Magnesium Direct Bilirubin AST ALT Alkaline Phosphatase Lactate Dehydrogenase Total Protein Albumin Ur Specific [place] Urine Blood Urine WBC (Auto) Vancomycin Trough Crossmatch 02/15/22 02/15/22 02/15/22 11:32 17:41 23:24 WBC RBC Hgb Hct MCV MCH RDW Plt Count Seg Neuts % (Manual) Lymphocytes % (Manual) Nucleated RBC % Seg Neutrophils # Man Lymphocytes # (Manual) Percent Retic Fibrinogen ABG pH POC ABG pO2 ABG pO2 ABG HCO3 ABG O2 Saturation ABG Base Excess ABG Hemoglobin Oxyhemoglobin Carboxyhemoglobin Sodium Potassium Chloride Carbon Dioxide BUN Creatinine Glucose POC Glucose 160 H 211 H 261 H Hemoglobin A1c Lactic Acid Calcium Phosphorus Magnesium Direct Bilirubin AST ALT Alkaline Phosphatase Lactate Dehydrogenase Total Protein Albumin Ur Specific [place] Urine Blood Urine WBC (Auto) Vancomycin Trough Crossmatch 02/16/22 02/16/22 02/16/22 04:36 04:36 05:11 WBC 17.3 H RBC Hgb 8.1 L Hct 26.6 L MCV 70 L MCH 21 L RDW 30.8 H Plt Count Seg Neuts % (Manual) Lymphocytes % (Manual) Nucleated RBC % Seg Neutrophils # Man Lymphocytes # (Manual) Percent Retic Fibrinogen ABG pH POC ABG pO2 ABG pO2 ABG HCO3 ABG O2 Saturation ABG Base Excess ABG Hemoglobin Oxyhemoglobin Carboxyhemoglobin Sodium Potassium Chloride Carbon Dioxide 34 H BUN 20 H Creatinine 0.4 L Glucose 206 H POC Glucose 198 H Hemoglobin A1c Lactic Acid Calcium 7.7 L Phosphorus Magnesium Direct Bilirubin AST ALT Alkaline Phosphatase Lactate Dehydrogenase Total Protein Albumin Ur Specific [place] Urine Blood Urine WBC (Auto) Vancomycin Trough Crossmatch 02/16/22 02/16/22 02/17/22 11:25 16:29 00:16 WBC RBC Hgb Hct MCV MCH RDW Plt Count Seg Neuts % (Manual) Lymphocytes % (Manual) Nucleated RBC % Seg Neutrophils # Man Lymphocytes # (Manual) Percent Retic Fibrinogen ABG pH POC ABG pO2 ABG pO2 ABG HCO3 ABG O2 Saturation ABG Base Excess ABG Hemoglobin Oxyhemoglobin Carboxyhemoglobin Sodium Potassium Chloride Carbon Dioxide BUN Creatinine Glucose POC Glucose 130 H 182 H 220 H Hemoglobin A1c Lactic Acid Calcium Phosphorus Magnesium Direct Bilirubin AST ALT Alkaline Phosphatase Lactate Dehydrogenase Total Protein Albumin Ur Specific [place] Urine Blood Urine WBC (Auto) Vancomycin Trough Crossmatch 02/17/22 02/17/22 02/17/22 05:00 05:06 05:58 WBC RBC Hgb Hct MCV MCH RDW Plt Count Seg Neuts % (Manual) Lymphocytes % (Manual) Nucleated RBC % Seg Neutrophils # Man Lymphocytes # (Manual) Percent Retic Fibrinogen ABG pH 7.463 H POC ABG pO2 ABG pO2 113.6 H ABG HCO3 32.8 H ABG O2 Saturation ABG Base Excess 8.1 H ABG Hemoglobin 8.0 L Oxyhemoglobin Carboxyhemoglobin Sodium Potassium Chloride Carbon Dioxide 34 H BUN 22 H Creatinine 0.4 L Glucose 314 H POC Glucose 269 H Hemoglobin A1c Lactic Acid Calcium 8.1 L Phosphorus Magnesium Direct Bilirubin AST ALT Alkaline Phosphatase Lactate Dehydrogenase Total Protein 5.4 L Albumin 2.5 L Ur Specific [place] Urine Blood Urine WBC (Auto) Vancomycin Trough Crossmatch 02/17/22 02/17/22 02/17/22 11:18 16:41 21:51 WBC RBC Hgb Hct MCV MCH RDW Plt Count Seg Neuts % (Manual) Lymphocytes % (Manual) Nucleated RBC % Seg Neutrophils # Man Lymphocytes # (Manual) Percent Retic Fibrinogen ABG pH POC ABG pO2 ABG pO2 ABG HCO3 ABG O2 Saturation ABG Base Excess ABG Hemoglobin Oxyhemoglobin Carboxyhemoglobin Sodium Potassium Chloride Carbon Dioxide BUN Creatinine Glucose POC Glucose 135 H 248 H 266 H Hemoglobin A1c Lactic Acid Calcium Phosphorus Magnesium Direct Bilirubin AST ALT Alkaline Phosphatase Lactate Dehydrogenase Total Protein Albumin Ur Specific [place] Urine Blood Urine WBC (Auto) Vancomycin Trough Crossmatch 02/17/22 02/18/22 02/18/22 23:38 01:04 04:00 WBC 14.8 H RBC Hgb 8.3 L Hct 27.3 L MCV 71 L MCH 22 L RDW 30.5 H Plt Count Seg Neuts % (Manual) Lymphocytes % (Manual) Nucleated RBC % Seg Neutrophils # Man Lymphocytes # (Manual) Percent Retic Fibrinogen ABG pH POC ABG pO2 ABG pO2 ABG HCO3 ABG O2 Saturation ABG Base Excess ABG Hemoglobin Oxyhemoglobin Carboxyhemoglobin Sodium Potassium Chloride Carbon Dioxide BUN Creatinine Glucose POC Glucose 287 H 272 H Hemoglobin A1c Lactic Acid Calcium Phosphorus Magnesium Direct Bilirubin AST ALT Alkaline Phosphatase Lactate Dehydrogenase Total Protein Albumin Ur Specific [place] Urine Blood Urine WBC (Auto) Vancomycin Trough Crossmatch 02/18/22 02/18/22 02/18/22 04:00 05:38 11:27 WBC RBC Hgb Hct MCV MCH RDW Plt Count Seg Neuts % (Manual) Lymphocytes % (Manual) Nucleated RBC % Seg Neutrophils # Man Lymphocytes # (Manual) Percent Retic Fibrinogen ABG pH POC ABG pO2 ABG pO2 ABG HCO3 ABG O2 Saturation ABG Base Excess ABG Hemoglobin Oxyhemoglobin Carboxyhemoglobin Sodium Potassium Chloride Carbon Dioxide 32 H BUN 20 H Creatinine 0.3 L Glucose 132 H POC Glucose 117 H 44 L Hemoglobin A1c Lactic Acid Calcium Phosphorus Magnesium Direct Bilirubin AST ALT Alkaline Phosphatase Lactate Dehydrogenase Total Protein Albumin Ur Specific [place] Urine Blood Urine WBC (Auto) Vancomycin Trough Crossmatch 02/18/22 02/18/22 02/18/22 11:29 11:49 13:41 WBC RBC Hgb Hct MCV MCH RDW Plt Count Seg Neuts % (Manual) Lymphocytes % (Manual) Nucleated RBC % Seg Neutrophils # Man Lymphocytes # (Manual) Percent Retic Fibrinogen ABG pH POC ABG pO2 ABG pO2 ABG HCO3 ABG O2 Saturation ABG Base Excess ABG Hemoglobin Oxyhemoglobin Carboxyhemoglobin Sodium Potassium Chloride Carbon Dioxide BUN Creatinine Glucose POC Glucose 50 L 216 H 128 H Hemoglobin A1c Lactic Acid Calcium Phosphorus Magnesium Direct Bilirubin AST ALT Alkaline Phosphatase Lactate Dehydrogenase Total Protein Albumin Ur Specific [place] Urine Blood Urine WBC (Auto) Vancomycin Trough Crossmatch
[2022-02-18] MEDS: INSULIN GLARGINE 100 UNITS/ML SUB-Q SCH (21:39)
[2022-02-19] MEDS: ACETAMINOPHEN 325 MG TAB PO PRN ×2 (00:50→12:08)
[2022-02-19] MEDS: INSULIN REGULAR, HUMAN 100 UNITS/1 ML SUB-Q SCH ×5 (01:42→23:39)
[2022-02-19] MEDS: fentaNYL 100 MCG/2 ML INJ IV PRN ×2 (04:41→08:33)
[2022-02-19] MEDS: NITROGLYCERIN 2% OINT 1 GM TP SCH ×2 (06:13→14:00)
[2022-02-19 06:45] LABS: Hemoglobin 8.7 gm/dl (10.1-14.3); Mean Corpuscular HGB Conc 31 % (30-34); Platelet Count 466 K/mm3 (140-440); Red Blood Count 4.06 M/mm3 (3.65-5.03)
[2022-02-19 06:47] LABS: Mean Corpuscular Volume 69 fl (79-97); Red Cell Distribution Width 30.9 % (13.2-15.2)
[2022-02-19 07:34] LABS: Blood Urea Nitrogen 16 mg/dL (7-17); Calcium 8.6 mg/dL (8.4-10.2); Hemolysis Index 0
[2022-02-19 07:36] LABS: BUN/Creatinine Ratio 53
--- NOTE | 2022-02-19 09:46 | XRay Report ---
CHEST 1 VIEW 02/19/2022 9:06 AM INDICATION / CLINICAL INFORMATION: Follow up respiratory failure. COMPARISON: Yesterday. FINDINGS: SUPPORT DEVICES: The positions of the tracheostomy tube and right PICC have not changed. HEART / MEDIASTINUM: Unchanged. LUNGS / PLEURA: Mild scattered patchy parenchymal opacities in both lungs have not changed significan tly. No pleural effusion. No pneumothorax. ADDITIONAL FINDINGS: No significant additional findings. IMPRESSION: No significant change since yesterday. Signer Name: Alejandro Ram MD Signed: 02/19/2022 9:42 AM Workstation Name: [id number]
[2022-02-19] MEDS: SODIUM CHLORIDE 0.9% 500 ML 500 ML IV SCH (09:51)
[2022-02-19] MEDS: METOCLOPRAMIDE 10 MG/2 ML INJ IV SCH ×2 (09:53→18:05)
[2022-02-19] MEDS: QUEtiapine 25 MG TAB PO SCH (09:53)
[2022-02-19] MEDS: FAMOTIDINE 20 MG TAB FEEDTUBE SCH ×2 (09:53→21:17)
[2022-02-19] MEDS: CLOPIDOGREL 75 MG TAB FEEDTUBE SCH (09:53)
[2022-02-19] MEDS: SENNOSIDES/DOCUSATE SODIUM 8.6/50 MG TAB PO SCH (09:55)
[2022-02-19] MEDS ORDERED: SODIUM CHLORIDE 0.9% 500 ML 500 ML IV ONE ×2 (10:00→13:00)
--- NOTE | 2022-02-19 10:30 | Progress Note ---
Assessment and Plan 02/19/22: Will obtain KUB now. Continue to hold tube feeds. Will speak with surgery about possible causes of vomiting. May need to restart sedation. If spikes temp again will obtain cultures but most likely this is post op fever. Vent settings have not changed. Guarded prognosis. 02/18/22: Start weaning from vent tomorrow. Use peg when surgery approves. Hopeful dispostion to LTACH soon. 02/17/22: Trach and peg tomorrow. NPO after midnight tonight. Steroid taper. Will attempt to touch base with family again about consent for Picc so that IJ can be removed. If not able to do this, will need to be changed over a wire. 02/16/22: Trach and peg on Friday. Continue sedation. Will check CMP tomorrow. Will give a one time dose of albumin with lasix chaser. oral steroid taper has been ordered. 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 02/15/22: Trach and peg soon. Continue sedation and supportive care. 02/14/22: Today will plan to extubate. if fails will need trach. Reviewed chart and saw vascular recs. Will wean steroids again either tomorrow or Friday. 02/13/22: Drop steroids to 50q12 today. Currently on PSV 18/12. Sedatioin off. Tentatively plan for possible extubation tomorrow morning. 02/12/22: Will wean steroids more tomorrow. Drop PEEP to 6 today and attempt PSV this afternoon. If tolerates will leave on PSV until end of day shift and then rest on rate overnight. Hopeful to leave off sedation and control with PRN pushes. Repeat PSV tomorrow consider ABG, pending on how she looks clinically. Hopeful for conventional ventilation but family is on board if trach and peg are required. 02/11/22: Will drop steroids to 50q8. Will drop PEEP to 8. Once PEEP at 6 , then consult surgery fro trach and peg unless off sedation mental state is better and she can tolerate PSV to assess if able for conventional extubation. Prognosis still remains guarded but improved now that pulmonary status has improved. 02/08/22: Please do not attempt to wean PEEP unless it is compromising clinical state (breath stacking, auto peep, hypotension, etc). Patient is in full blown ARDS needs increased levels of PEEP to help with oxygenation. Now that BP is better, if no improvement would even consider increasing PEEP if needed. Discussed with RT today. Spoke with nursing and MOLDING LINE OPERATOR about feet, will obtain arterial dopplers. Hopeful there is no occlusion as given her pancytopenia, not sure that she would be a candidate for anticoagulation. Reviewed [facility] as she was in [place] at least 3x prior to transfer here, twice during the month of January for DKA. She does have a diagnsosis of schizoaffective disorder. Could not find any meds for this. Will try some BID seroquel and see if this helps with mental state. Increases in sedation have not improved respiratory pattern. Patient did not get albumin and lasix last night but did get this am. Repeat CXR in the morning as well as ABG. If patient's alkalemia worsens would stop. Also given improvement in BP would start to wean stress dose steroids. She does have a diagnosis of HTN along with her diabetes and Dementia and Schizoaffective disorder. Also from reviewing the charts at [facility], patient is/was very noncompliant with diabetic regimen so some of her mental state could be vascular disease related to uncontrolled diabetes too. Overall prognosis is guarded. 02/07/22: Family meeting today, please see my event note. albumin and lasix again this morning and then again tonight. Continue steroids. May need insulin drip. Guarded prognosis. 02/06/22: Overall prognosis continues to worsen. She did respond to albumin and lasix with good urine output. Will give again tonight. Bronch results are negative and repeat cultures are negative. CXR continues to be consistent with ARDS. This could be AIP. Now on steroids so will see how she responds. Unfortunately I was not able to meet with the family today but plan to meet with them at 11 tomorrow. appreciate heme help. Given her response to steroids BP salazar, if this is truly acute interstitial pneumonitis, may consider pulse dose steroids. Will discuss with family risks of this as well. 02/05/22: Follow up bronch results. Appreciate ID assistance and changing of abx therapy. COntinue high PEEP and small TV. Ok with permissive hypercapnea as long as pH is >7.2. Follow up heme assessment. Has Kleib in tracheal aspirate. Follow up blood cultures. Will meet with family tomorrow. Overall prognosis is guarded to poor. 02/04/22: Repeat cultures this am while she is febrile. Bronched this am and wash taken from right middle lobe. Worsening CXR is likely related to the volume given yesterday. Will consult heme today as her numbers continue to worsen. Gram Negative Rods found in Tracheal aspirate from 02/01. Follow up speciation of this as well as bronch results. Will send for fungal cultures as well. Needs art line. Stop bob and change to vasopressin. Overall prognosis is very very guarded to poor. 02/03/22: Needs repeat culture with next fever spike. concern now that she is still spiking temps on broad spec abx. may need to broaden even more with antifungal but will discuss tomorrow with pharmacy tomorrow. pH is better but worsening hypoxemia. CXR shows bilateral infiltrates. Will consider bronch tomorrow for washing to be sent for culture. Consider Heme consult tomorrow. Echo was stable. Guarded to poor prognosis. Sugar is better today. 02/02/22: Wean Vasopressors as tolerated for maps >65. Check echo. Stop insulin therapy. Q1hour fSbs and cover with sliding scale. Repeat ABG later today to follow pH. May need some diamox later. Patient now neutropenic and thrombocytopenic, repeated CBC and still the same. may need to consider heme consult. For now continue broad spec abx therapy. prognosis is guarded to poor. 2 amps of NaBicarb pushed Started on Insulin drip Central line placement secondary to lack of access Aggressive volume resuscitation q1 hour fsbs and q6 hour BMPs for the next 36-48 hours Supplemental O2 Not a candidate for bipap currently given mental state so if her respiratory status deteriorates would need intubation. Guarded prognosis. Spoke with daughter briefly at bedside. She did not get off her cell phone so not able to have a full conversation with her about her mother. CCT 31 minutes. Subjective Date of service: 02/19/22 Principal diagnosis: DKA, s/p cardiopulmonary arrest Interval history: Had projectile vomiting last night post peg placement. Feeds were started. Now on hold and tube is to intermittent suction. Also had temp last night. No imaging of abdomen done last night. CXR done this am which is unchanged. Tachy in the 130's and holding. Not on any sedation. Objective Vital Signs - 12hr 02/18/22 02/18/22 02/19/22 23:00 23:27 00:00 Temperature 102.4 F H Pulse Rate 127 H 100 H 134 H Pulse Rate [ 127 H From Monitor] Respiratory 28 H 24 Rate Blood Pressure 118/85 133/82 125/94 O2 Sat by Pulse 100 100 100 Oximetry 02/19/22 02/19/22 02/19/22 01:00 02:00 02:41 Temperature 99.2 F Pulse Rate 126 H 134 H Pulse Rate [ From Monitor] Respiratory 28 H 29 H Rate Blood Pressure 126/82 126/82 O2 Sat by Pulse 100 100 Oximetry 02/19/22 02/19/22 02/19/22 03:00 04:00 05:00 Temperature 100.2 F H Pulse Rate 128 H 120 H 118 H Pulse Rate [ 124 H From Monitor] Respiratory 19 29 H Rate Blood Pressure 126/84 135/84 136/93 O2 Sat by Pulse 99 100 98 Oximetry 02/19/22 02/19/22 02/19/22 06:00 06:13 07:00 Temperature Pulse Rate 130 H 124 H 131 H Pulse Rate [ From Monitor] Respiratory 25 H 28 H Rate Blood Pressure 135/100 135/93 135/100 O2 Sat by Pulse 98 100 Oximetry 02/19/22 02/19/22 02/19/22 07:24 08:00 09:00 Temperature 99.3 F 99.6 F Pulse Rate 135 H 142 H Pulse Rate [ 124 H From Monitor] Respiratory 14 25 H Rate Blood Pressure 151/92 142/91 O2 Sat by Pulse 100 98 Oximetry Constitutional: other (on vent, orally intubated) Eyes: non-icteric ENT: oropharynx moist Ascultation: Bilateral: diminished breath sounds Cardiovascular: regular rate and rhythm Gastrointestinal: normoactive bowel sounds Integumentary: normal Neurologic: other (on vent) Psychiatric: other (on vent) CBC and BMP: 02/19/22 06:10 02/19/22 06:10 ABG, PT/INR, D-dimer: ABG ABG pH 7.463 pH Units (7.350-7.450) H 02/17/22 05:06 POC ABG pCO2 37.3 mmHg (32.0-48.0) 02/02/22 04:49 ABG pCO2 46.8 mm Hg 02/17/22 05:06 POC ABG pO2 79.9 mmHg (83-108) L 02/02/22 04:49 ABG pO2 113.6 mm Hg (80.0-90.0) H 02/17/22 05:06 POC ABG HCO3 30.3 02/02/22 04:49 ABG O2 Saturation 98.2 % (95.0-99.0) 02/17/22 05:06 PT/INR, D-dimer PT 13.7 Sec. (12.2-14.9) 02/18/22 04:00 INR 0.95 (0.87-1.13) 02/18/22 04:00 Abnormal lab findings: Abnormal Labs 01/31/22 01/31/22 01/31/22 20:33 20:33 20:33 WBC 12.5 H RBC 6.16 H Hgb Hct MCV 61 L MCH 18 L RDW 19.6 H Plt Count Seg Neuts % (Manual) 98.0 H Lymphocytes % (Manual) 0 L Nucleated RBC % 2.0 H Seg Neutrophils # Man 12.3 H Lymphocytes # (Manual) 0.0 L Percent Retic Fibrinogen ABG pH POC ABG pO2 ABG pO2 ABG HCO3 ABG O2 Saturation ABG Base Excess ABG Hemoglobin Oxyhemoglobin Carboxyhemoglobin Sodium Potassium 5.6 H Chloride 110.1 H Carbon Dioxide 9 L* BUN Creatinine Glucose 254 H POC Glucose Hemoglobin A1c Lactic Acid 2.50 H* Calcium 10.8 H Phosphorus Magnesium Direct Bilirubin AST ALT Alkaline Phosphatase Lactate Dehydrogenase Total Protein Albumin Ur Specific [place] Urine Blood Urine WBC (Auto) Vancomycin Trough Crossmatch 01/31/22 02/01/22 02/01/22 22:49 07:34 08:22 WBC RBC Hgb Hct MCV MCH RDW Plt Count Seg Neuts % (Manual) Lymphocytes % (Manual) Nucleated RBC % Seg Neutrophils # Man Lymphocytes # (Manual) Percent Retic Fibrinogen ABG pH POC ABG pO2 ABG pO2 ABG HCO3 ABG O2 Saturation ABG Base Excess ABG Hemoglobin Oxyhemoglobin Carboxyhemoglobin Sodium Potassium 5.8 H Chloride 115.8 H Carbon Dioxide 3 L* BUN Creatinine Glucose 400 H POC Glucose 368 H Hemoglobin A1c Lactic Acid Calcium Phosphorus Magnesium Direct Bilirubin AST ALT Alkaline Phosphatase Lactate Dehydrogenase Total Protein Albumin Ur Specific [place] 1.035 H Urine Blood Small A Urine WBC (Auto) 142.0 H Vancomycin Trough Crossmatch 02/01/22 02/01/22 02/01/22 09:42 12:01 12:54 WBC RBC Hgb Hct MCV MCH RDW Plt Count Seg Neuts % (Manual) Lymphocytes % (Manual) Nucleated RBC % Seg Neutrophils # Man Lymphocytes # (Manual) Percent Retic Fibrinogen ABG pH 7.044 L* POC ABG pO2 ABG pO2 121.0 H ABG HCO3 3.7 L ABG O2 Saturation ABG Base Excess -24.8 L ABG Hemoglobin 9.3 L Oxyhemoglobin Carboxyhemoglobin Sodium Potassium Chloride Carbon Dioxide BUN Creatinine Glucose POC Glucose 382 H Hemoglobin A1c Lactic Acid Calcium Phosphorus 1.40 L Magnesium 1.30 L Direct Bilirubin AST ALT Alkaline Phosphatase Lactate Dehydrogenase Total Protein Albumin Ur Specific [place] Urine Blood Urine WBC (Auto) Vancomycin Trough Crossmatch 02/01/22 02/01/22 02/01/22 12:54 12:54 13:27 WBC RBC Hgb Hct MCV MCH RDW Plt Count Seg Neuts % (Manual) Lymphocytes % (Manual) Nucleated RBC % Seg Neutrophils # Man Lymphocytes # (Manual) Percent Retic Fibrinogen ABG pH POC ABG pO2 ABG pO2 ABG HCO3 ABG O2 Saturation ABG Base Excess ABG Hemoglobin Oxyhemoglobin Carboxyhemoglobin Sodium 148 H D Potassium 3.0 L D Chloride 117.3 H Carbon Dioxide 9 L* BUN Creatinine Glucose 439 H POC Glucose 342 H Hemoglobin A1c 11.1 H Lactic Acid Calcium 7.7 L Phosphorus Magnesium Direct Bilirubin AST ALT Alkaline Phosphatase Lactate Dehydrogenase Total Protein Albumin Ur Specific [place] Urine Blood Urine WBC (Auto) Vancomycin Trough Crossmatch 02/01/22 02/01/22 02/01/22 14:48 15:48 16:54 WBC RBC Hgb Hct MCV MCH RDW Plt Count Seg Neuts % (Manual) Lymphocytes % (Manual) Nucleated RBC % Seg Neutrophils # Man Lymphocytes # (Manual) Percent Retic Fibrinogen ABG pH POC ABG pO2 ABG pO2 ABG HCO3 ABG O2 Saturation ABG Base Excess ABG Hemoglobin Oxyhemoglobin Carboxyhemoglobin Sodium Potassium Chloride Carbon Dioxide BUN Creatinine Glucose POC Glucose 394 H 412 H 352 H Hemoglobin A1c Lactic Acid Calcium Phosphorus Magnesium Direct Bilirubin AST ALT Alkaline Phosphatase Lactate Dehydrogenase Total Protein Albumin Ur Specific [place] Urine Blood Urine WBC (Auto) Vancomycin Trough Crossmatch 02/01/22 02/01/22 02/01/22 18:23 18:53 19:26 WBC RBC Hgb Hct MCV MCH RDW Plt Count Seg Neuts % (Manual) Lymphocytes % (Manual) Nucleated RBC % Seg Neutrophils # Man Lymphocytes # (Manual) Percent Retic Fibrinogen ABG pH 7.331 L POC ABG pO2 ABG pO2 121.4 H ABG HCO3 ABG O2 Saturation ABG Base Excess -4.9 L ABG Hemoglobin 8.4 L Oxyhemoglobin Carboxyhemoglobin Sodium Potassium Chloride Carbon Dioxide BUN Creatinine Glucose POC Glucose 350 H 260 H Hemoglobin A1c Lactic Acid Calcium Phosphorus Magnesium Direct Bilirubin AST ALT Alkaline Phosphatase Lactate Dehydrogenase Total Protein Albumin Ur Specific [place] Urine Blood Urine WBC (Auto) Vancomycin Trough Crossmatch 02/01/22 02/01/22 02/01/22 20:20 21:38 22:41 WBC RBC Hgb Hct MCV MCH RDW Plt Count Seg Neuts % (Manual) Lymphocytes % (Manual) Nucleated RBC % Seg Neutrophils # Man Lymphocytes # (Manual) Percent Retic Fibrinogen ABG pH POC ABG pO2 ABG pO2 ABG HCO3 ABG O2 Saturation ABG Base Excess ABG Hemoglobin Oxyhemoglobin Carboxyhemoglobin Sodium Potassium Chloride Carbon Dioxide BUN Creatinine Glucose POC Glucose 266 H 195 H 150 H Hemoglobin A1c Lactic Acid Calcium Phosphorus Magnesium Direct Bilirubin AST ALT Alkaline Phosphatase Lactate Dehydrogenase Total Protein Albumin Ur Specific [place] Urine Blood Urine WBC (Auto) Vancomycin Trough Crossmatch 02/01/22 02/02/22 02/02/22 23:39 00:25 00:25 WBC RBC Hgb Hct MCV MCH RDW Plt Count Seg Neuts % (Manual) Lymphocytes % (Manual) Nucleated RBC % Seg Neutrophils # Man Lymphocytes # (Manual) Percent Retic Fibrinogen ABG pH POC ABG pO2 ABG pO2 ABG HCO3 ABG O2 Saturation ABG Base Excess ABG Hemoglobin Oxyhemoglobin Carboxyhemoglobin Sodium 156 H D Potassium 3.0 L Chloride 114.2 H Carbon Dioxide BUN Creatinine 0.5 L Glucose 63 L POC Glucose 125 H Hemoglobin A1c Lactic Acid 7.10 H* Calcium 8.1 L Phosphorus Magnesium Direct Bilirubin AST ALT Alkaline Phosphatase Lactate Dehydrogenase Total Protein Albumin Ur Specific [place] Urine Blood Urine WBC (Auto) Vancomycin Trough Crossmatch 02/02/22 02/02/22 02/02/22 04:00 04:00 04:35 WBC 1.4 L* RBC Hgb 8.5 L Hct 26.8 L D MCV 57 L MCH 18 L RDW 19.0 H Plt Count 129 L Seg Neuts % (Manual) 33.0 L Lymphocytes % (Manual) 57.0 H Nucleated RBC % Seg Neutrophils # Man 0.5 L Lymphocytes # (Manual) 0.8 L Percent Retic Fibrinogen ABG pH POC ABG pO2 ABG pO2 ABG HCO3 ABG O2 Saturation ABG Base Excess ABG Hemoglobin Oxyhemoglobin Carboxyhemoglobin Sodium 155 H Potassium Chloride 113.1 H Carbon Dioxide BUN Creatinine Glucose 159 H POC Glucose Hemoglobin A1c Lactic Acid 3.10 H* Calcium 7.6 L Phosphorus Magnesium Direct Bilirubin AST ALT Alkaline Phosphatase Lactate Dehydrogenase Total Protein Albumin Ur Specific [place] Urine Blood Urine WBC (Auto) Vancomycin Trough Crossmatch 02/02/22 02/02/22 02/02/22 04:37 04:49 05:43 WBC RBC Hgb Hct MCV MCH RDW Plt Count Seg Neuts % (Manual) Lymphocytes % (Manual) Nucleated RBC % Seg Neutrophils # Man Lymphocytes # (Manual) Percent Retic Fibrinogen ABG pH 7.528 H POC ABG pO2 79.9 L ABG pO2 ABG HCO3 ABG O2 Saturation ABG Base Excess ABG Hemoglobin 8.8 L Oxyhemoglobin Carboxyhemoglobin 0.2 L Sodium Potassium Chloride Carbon Dioxide BUN Creatinine Glucose POC Glucose 116 H 125 H Hemoglobin A1c Lactic Acid Calcium Phosphorus Magnesium Direct Bilirubin AST ALT Alkaline Phosphatase Lactate Dehydrogenase Total Protein Albumin Ur Specific [place] Urine Blood Urine WBC (Auto) Vancomycin Trough Crossmatch 02/02/22 02/02/22 02/02/22 06:52 09:02 09:05 WBC RBC Hgb Hct MCV MCH RDW Plt Count Seg Neuts % (Manual) Lymphocytes % (Manual) Nucleated RBC % Seg Neutrophils # Man Lymphocytes # (Manual) Percent Retic Fibrinogen ABG pH POC ABG pO2 ABG pO2 ABG HCO3 ABG O2 Saturation ABG Base Excess ABG Hemoglobin Oxyhemoglobin Carboxyhemoglobin Sodium 154 H Potassium 3.3 L Chloride 113.3 H Carbon Dioxide BUN Creatinine Glucose 35 L* POC Glucose 110 H 35 L Hemoglobin A1c Lactic Acid Calcium 7.4 L Phosphorus 1.70 L D Magnesium 2.50 H Direct Bilirubin AST ALT Alkaline Phosphatase Lactate Dehydrogenase Total Protein Albumin Ur Specific [place] Urine Blood Urine WBC (Auto) Vancomycin Trough Crossmatch 02/02/22 02/02/22 02/02/22 09:05 09:30 09:41 WBC 2.6 L RBC Hgb 8.0 L Hct 25.0 L MCV 57 L MCH 18 L RDW 18.8 H Plt Count 97 L Seg Neuts % (Manual) Lymphocytes % (Manual) 12.0 L Nucleated RBC % 10.0 H Seg Neutrophils # Man 1.7 L Lymphocytes # (Manual) 0.3 L Percent Retic Fibrinogen ABG pH POC ABG pO2 ABG pO2 ABG HCO3 ABG O2 Saturation ABG Base Excess ABG Hemoglobin Oxyhemoglobin Carboxyhemoglobin Sodium Potassium Chloride Carbon Dioxide BUN Creatinine Glucose POC Glucose 119 H Hemoglobin A1c Lactic Acid 7.10 H* Calcium Phosphorus Magnesium Direct Bilirubin AST ALT Alkaline Phosphatase Lactate Dehydrogenase Total Protein Albumin Ur Specific [place] Urine Blood Urine WBC (Auto) Vancomycin Trough Crossmatch 02/02/22 02/02/22 02/02/22 10:17 12:32 15:39 WBC RBC Hgb Hct MCV MCH RDW Plt Count Seg Neuts % (Manual) Lymphocytes % (Manual) Nucleated RBC % Seg Neutrophils # Man Lymphocytes # (Manual) Percent Retic Fibrinogen ABG pH POC ABG pO2 ABG pO2 ABG HCO3 ABG O2 Saturation ABG Base Excess ABG Hemoglobin Oxyhemoglobin Carboxyhemoglobin Sodium Potassium Chloride Carbon Dioxide BUN Creatinine Glucose POC Glucose 120 H 166 H 263 H Hemoglobin A1c Lactic Acid Calcium Phosphorus Magnesium Direct Bilirubin AST ALT Alkaline Phosphatase Lactate Dehydrogenase Total Protein Albumin Ur Specific [place] Urine Blood Urine WBC (Auto) Vancomycin Trough Crossmatch 02/02/22 02/02/22 02/02/22 17:07 17:50 Unknown WBC RBC Hgb Hct MCV MCH RDW Plt Count Seg Neuts % (Manual) Lymphocytes % (Manual) Nucleated RBC % Seg Neutrophils # Man Lymphocytes # (Manual) Percent Retic Fibrinogen ABG pH 7.457 H POC ABG pO2 ABG pO2 71.0 L ABG HCO3 ABG O2 Saturation 94.5 L ABG Base Excess ABG Hemoglobin 9.2 L Oxyhemoglobin 93.0 L Carboxyhemoglobin Sodium 147 H Potassium 5.5 H D Chloride 110.8 H Carbon Dioxide BUN Creatinine Glucose 271 H POC Glucose 231 H Hemoglobin A1c Lactic Acid Calcium 7.3 L Phosphorus Magnesium Direct Bilirubin AST ALT Alkaline Phosphatase Lactate Dehydrogenase Total Protein Albumin Ur Specific [place] Urine Blood Urine WBC (Auto) Vancomycin Trough Crossmatch 02/03/22 02/03/22 02/03/22 00:08 04:00 04:00 WBC 3.7 L RBC Hgb 8.0 L Hct 25.5 L MCV 58 L MCH 18 L RDW 18.2 H Plt Count 79 L Seg Neuts % (Manual) 76.0 H Lymphocytes % (Manual) 2.0 L Nucleated RBC % 4.0 H Seg Neutrophils # Man Lymphocytes # (Manual) 0.1 L Percent Retic Fibrinogen ABG pH POC ABG pO2 ABG pO2 ABG HCO3 ABG O2 Saturation ABG Base Excess ABG Hemoglobin Oxyhemoglobin Carboxyhemoglobin Sodium 147 H Potassium Chloride 112.9 H Carbon Dioxide BUN Creatinine Glucose 281 H POC Glucose 231 H Hemoglobin A1c Lactic Acid Calcium 7.8 L Phosphorus Magnesium Direct Bilirubin 0.3 H AST 172 H ALT 89 H Alkaline Phosphatase Lactate Dehydrogenase Total Protein 4.7 L D Albumin 2.0 L Ur Specific [place] Urine Blood Urine WBC (Auto) Vancomycin Trough Crossmatch 02/03/22 02/03/22 02/03/22 04:20 05:26 11:38 WBC RBC Hgb Hct MCV MCH RDW Plt Count Seg Neuts % (Manual) Lymphocytes % (Manual) Nucleated RBC % Seg Neutrophils # Man Lymphocytes # (Manual) Percent Retic Fibrinogen ABG pH POC ABG pO2 ABG pO2 75.5 L ABG HCO3 ABG O2 Saturation ABG Base Excess -2.8 L ABG Hemoglobin 8.1 L Oxyhemoglobin 94.6 L Carboxyhemoglobin Sodium Potassium Chloride Carbon Dioxide BUN Creatinine Glucose POC Glucose 247 H 196 H Hemoglobin A1c Lactic Acid Calcium Phosphorus Magnesium Direct Bilirubin AST ALT Alkaline Phosphatase Lactate Dehydrogenase Total Protein Albumin Ur Specific [place] Urine Blood Urine WBC (Auto) Vancomycin Trough Crossmatch 02/03/22 02/04/22 02/04/22 16:27 02:44 03:18 WBC 1.2 L* RBC Hgb 8.2 L Hct 26.6 L MCV 59 L MCH 18 L RDW 19.6 H Plt Count 50 L Seg Neuts % (Manual) Lymphocytes % (Manual) Nucleated RBC % Seg Neutrophils # Man Lymphocytes # (Manual) Percent Retic Fibrinogen ABG pH POC ABG pO2 ABG pO2 ABG HCO3 ABG O2 Saturation ABG Base Excess ABG Hemoglobin Oxyhemoglobin Carboxyhemoglobin Sodium 148 H Potassium Chloride 116.3 H Carbon Dioxide BUN Creatinine Glucose 139 H POC Glucose 119 H Hemoglobin A1c Lactic Acid Calcium Phosphorus Magnesium Direct Bilirubin 0.3 H AST 92 H ALT 76 H Alkaline Phosphatase Lactate Dehydrogenase Total Protein 4.7 L Albumin 1.6 L Ur Specific [place] Urine Blood Urine WBC (Auto) Vancomycin Trough Crossmatch 02/04/22 02/04/22 02/04/22 05:15 05:26 09:15 WBC RBC Hgb Hct MCV MCH RDW Plt Count Seg Neuts % (Manual) Lymphocytes % (Manual) Nucleated RBC % Seg Neutrophils # Man Lymphocytes # (Manual) Percent Retic Fibrinogen ABG pH 7.311 L POC ABG pO2 ABG pO2 50.1 L ABG HCO3 ABG O2 Saturation 83.6 L ABG Base Excess ABG Hemoglobin 8.6 L Oxyhemoglobin 81.9 L Carboxyhemoglobin Sodium Potassium Chloride Carbon Dioxide BUN Creatinine Glucose POC Glucose 115 H Hemoglobin A1c Lactic Acid Calcium Phosphorus Magnesium Direct Bilirubin AST ALT Alkaline Phosphatase Lactate Dehydrogenase Total Protein Albumin Ur Specific [place] Urine Blood Large A Urine WBC (Auto) 12.0 H Vancomycin Trough Crossmatch 02/04/22 02/04/22 02/04/22 11:17 14:37 17:04 WBC RBC Hgb Hct MCV MCH RDW Plt Count Seg Neuts % (Manual) Lymphocytes % (Manual) Nucleated RBC % Seg Neutrophils # Man Lymphocytes # (Manual) Percent Retic Fibrinogen ABG pH POC ABG pO2 ABG pO2 ABG HCO3 ABG O2 Saturation ABG Base Excess ABG Hemoglobin Oxyhemoglobin Carboxyhemoglobin Sodium Potassium Chloride Carbon Dioxide BUN Creatinine Glucose POC Glucose 166 H 109 H Hemoglobin A1c Lactic Acid Calcium Phosphorus Magnesium Direct Bilirubin AST 87 H ALT 75 H Alkaline Phosphatase 137 H Lactate Dehydrogenase Total Protein 4.6 L Albumin 1.7 L Ur Specific [place] Urine Blood Urine WBC (Auto) Vancomycin Trough Crossmatch 02/04/22 02/04/22 02/04/22 20:15 20:22 20:22 WBC RBC Hgb 7.1 L Hct 22.6 L MCV MCH RDW Plt Count Seg Neuts % (Manual) Lymphocytes % (Manual) Nucleated RBC % Seg Neutrophils # Man Lymphocytes # (Manual) Percent Retic Fibrinogen ABG pH 7.292 L POC ABG pO2 ABG pO2 40.3 L ABG HCO3 ABG O2 Saturation 72.1 L ABG Base Excess -2.2 L ABG Hemoglobin 7.0 L Oxyhemoglobin 70.5 L Carboxyhemoglobin Sodium Potassium Chloride Carbon Dioxide BUN Creatinine Glucose POC Glucose Hemoglobin A1c Lactic Acid 3.00 H* Calcium Phosphorus Magnesium Direct Bilirubin AST ALT Alkaline Phosphatase Lactate Dehydrogenase Total Protein Albumin Ur Specific [place] Urine Blood Urine WBC (Auto) Vancomycin Trough Crossmatch 02/04/22 02/04/22 02/05/22 20:22 23:03 04:40 WBC 3.1 L RBC Hgb 9.6 L Hct 30.1 L D MCV 64 L MCH 20 L RDW 26.9 H Plt Count 50 L Seg Neuts % (Manual) Lymphocytes % (Manual) Nucleated RBC % Seg Neutrophils # Man Lymphocytes # (Manual) Percent Retic Fibrinogen ABG pH POC ABG pO2 ABG pO2 ABG HCO3 ABG O2 Saturation ABG Base Excess ABG Hemoglobin Oxyhemoglobin Carboxyhemoglobin Sodium Potassium Chloride Carbon Dioxide BUN Creatinine Glucose POC Glucose 171 H Hemoglobin A1c Lactic Acid Calcium Phosphorus Magnesium Direct Bilirubin AST ALT Alkaline Phosphatase Lactate Dehydrogenase Total Protein Albumin Ur Specific [place] Urine Blood Urine WBC (Auto) Vancomycin Trough Crossmatch See Detail 02/05/22 02/05/22 02/05/22 04:40 04:40 04:43 WBC RBC Hgb Hct MCV MCH RDW Plt Count Seg Neuts % (Manual) Lymphocytes % (Manual) Nucleated RBC % Seg Neutrophils # Man Lymphocytes # (Manual) Percent Retic Fibrinogen ABG pH POC ABG pO2 ABG pO2 ABG HCO3 ABG O2 Saturation ABG Base Excess ABG Hemoglobin Oxyhemoglobin Carboxyhemoglobin Sodium 148 H Potassium Chloride 113.2 H Carbon Dioxide BUN 21 H Creatinine Glucose 155 H POC Glucose 156 H Hemoglobin A1c Lactic Acid Calcium Phosphorus Magnesium Direct Bilirubin AST 84 H ALT 67 H Alkaline Phosphatase 152 H Lactate Dehydrogenase 879 H Total Protein 5.0 L Albumin 1.8 L Ur Specific [place] Urine Blood Urine WBC (Auto) Vancomycin Trough Crossmatch 02/05/22 02/05/22 02/05/22 08:10 08:48 08:48 WBC RBC Hgb Hct MCV MCH RDW Plt Count Seg Neuts % (Manual) Lymphocytes % (Manual) Nucleated RBC % Seg Neutrophils # Man Lymphocytes # (Manual) Percent Retic Fibrinogen 795 H ABG pH POC ABG pO2 ABG pO2 57.1 L ABG HCO3 27.8 H ABG O2 Saturation 90.8 L ABG Base Excess ABG Hemoglobin 8.5 L Oxyhemoglobin 88.9 L Carboxyhemoglobin Sodium Potassium Chloride Carbon Dioxide BUN Creatinine Glucose POC Glucose Hemoglobin A1c Lactic Acid 2.90 H* Calcium Phosphorus Magnesium Direct Bilirubin AST ALT Alkaline Phosphatase Lactate Dehydrogenase Total Protein Albumin Ur Specific [place] Urine Blood Urine WBC (Auto) Vancomycin Trough Crossmatch 02/05/22 02/05/22 02/05/22 11:46 17:45 Unknown WBC RBC Hgb Hct MCV MCH RDW Plt Count Seg Neuts % (Manual) Lymphocytes % (Manual) Nucleated RBC % Seg Neutrophils # Man Lymphocytes # (Manual) Percent Retic Fibrinogen ABG pH POC ABG pO2 ABG pO2 ABG HCO3 ABG O2 Saturation ABG Base Excess ABG Hemoglobin Oxyhemoglobin Carboxyhemoglobin Sodium Potassium Chloride Carbon Dioxide BUN Creatinine Glucose POC Glucose 61 L 133 H Hemoglobin A1c Lactic Acid Calcium Phosphorus Magnesium Direct Bilirubin AST ALT Alkaline Phosphatase Lactate Dehydrogenase Total Protein Albumin Ur Specific [place] Urine Blood Urine WBC (Auto) Vancomycin Trough 28.6 H Crossmatch 02/05/22 02/06/22 02/06/22 23:59 04:33 04:33 WBC RBC Hgb 8.4 L Hct 26.1 L MCV 64 L MCH 21 L RDW 26.2 H Plt Count 38 L Seg Neuts % (Manual) Lymphocytes % (Manual) Nucleated RBC % Seg Neutrophils # Man Lymphocytes # (Manual) Percent Retic Fibrinogen ABG pH POC ABG pO2 ABG pO2 ABG HCO3 ABG O2 Saturation ABG Base Excess ABG Hemoglobin Oxyhemoglobin Carboxyhemoglobin Sodium 146 H Potassium 3.4 L Chloride Carbon Dioxide 31 H BUN 21 H Creatinine Glucose 230 H POC Glucose 275 H Hemoglobin A1c Lactic Acid Calcium Phosphorus Magnesium Direct Bilirubin AST 70 H ALT Alkaline Phosphatase 197 H Lactate Dehydrogenase Total Protein 5.3 L Albumin 2.4 L Ur Specific [place] Urine Blood Urine WBC (Auto) Vancomycin Trough Crossmatch 02/06/22 02/06/22 02/06/22 04:33 04:50 06:19 WBC RBC Hgb Hct MCV MCH RDW Plt Count Seg Neuts % (Manual) Lymphocytes % (Manual) Nucleated RBC % Seg Neutrophils # Man Lymphocytes # (Manual) Percent Retic Fibrinogen ABG pH 7.330 L POC ABG pO2 ABG pO2 57.9 L ABG HCO3 31.3 H ABG O2 Saturation 89.6 L ABG Base Excess 4.5 H ABG Hemoglobin 8.1 L Oxyhemoglobin 87.7 L Carboxyhemoglobin Sodium Potassium Chloride Carbon Dioxide BUN Creatinine Glucose POC Glucose 219 H Hemoglobin A1c Lactic Acid 3.10 H* Calcium Phosphorus Magnesium Direct Bilirubin AST ALT Alkaline Phosphatase Lactate Dehydrogenase Total Protein Albumin Ur Specific [place] Urine Blood Urine WBC (Auto) Vancomycin Trough Crossmatch 02/06/22 02/06/22 02/06/22 11:24 11:50 12:26 WBC RBC Hgb Hct MCV MCH RDW Plt Count Seg Neuts % (Manual) Lymphocytes % (Manual) Nucleated RBC % Seg Neutrophils # Man Lymphocytes # (Manual) Percent Retic Fibrinogen ABG pH 7.298 L POC ABG pO2 ABG pO2 43.3 L ABG HCO3 36.7 H ABG O2 Saturation 74.9 L ABG Base Excess 8.8 H ABG Hemoglobin 8.2 L Oxyhemoglobin 73.3 L Carboxyhemoglobin Sodium Potassium Chloride Carbon Dioxide BUN Creatinine Glucose POC Glucose 118 H Hemoglobin A1c Lactic Acid 2.50 H* Calcium Phosphorus Magnesium Direct Bilirubin AST ALT Alkaline Phosphatase Lactate Dehydrogenase Total Protein Albumin Ur Specific [place] Urine Blood Urine WBC (Auto) Vancomycin Trough Crossmatch 02/06/22 02/06/22 02/07/22 17:41 21:41 00:17 WBC RBC Hgb Hct MCV MCH RDW Plt Count Seg Neuts % (Manual) Lymphocytes % (Manual) Nucleated RBC % Seg Neutrophils # Man Lymphocytes # (Manual) Percent Retic Fibrinogen ABG pH POC ABG pO2 ABG pO2 ABG HCO3 ABG O2 Saturation ABG Base Excess ABG Hemoglobin Oxyhemoglobin Carboxyhemoglobin Sodium Potassium Chloride Carbon Dioxide BUN Creatinine Glucose POC Glucose 208 H 282 H 342 H Hemoglobin A1c Lactic Acid Calcium Phosphorus Magnesium Direct Bilirubin AST ALT Alkaline Phosphatase Lactate Dehydrogenase Total Protein Albumin Ur Specific [place] Urine Blood Urine WBC (Auto) Vancomycin Trough Crossmatch 02/07/22 02/07/22 02/07/22 00:19 04:12 04:12 WBC 13.1 H RBC Hgb 8.5 L Hct 26.4 L MCV 62 L MCH 20 L RDW 24.2 H Plt Count 57 L Seg Neuts % (Manual) Lymphocytes % (Manual) Nucleated RBC % Seg Neutrophils # Man Lymphocytes # (Manual) Percent Retic Fibrinogen ABG pH POC ABG pO2 ABG pO2 ABG HCO3 ABG O2 Saturation ABG Base Excess ABG Hemoglobin Oxyhemoglobin Carboxyhemoglobin Sodium 149 H Potassium 3.1 L Chloride Carbon Dioxide 38 H D BUN 23 H Creatinine Glucose 298 H POC Glucose 209 H Hemoglobin A1c Lactic Acid Calcium Phosphorus 2.10 L Magnesium Direct Bilirubin AST 49 H ALT Alkaline Phosphatase 248 H Lactate Dehydrogenase Total Protein 5.4 L Albumin 2.7 L Ur Specific [place] Urine Blood Urine WBC (Auto) Vancomycin Trough Crossmatch 02/07/22 02/07/22 02/07/22 04:40 07:09 07:13 WBC RBC Hgb Hct MCV MCH RDW Plt Count Seg Neuts % (Manual) Lymphocytes % (Manual) Nucleated RBC % Seg Neutrophils # Man Lymphocytes # (Manual) Percent Retic Fibrinogen ABG pH 7.474 H POC ABG pO2 ABG pO2 62.1 L ABG HCO3 39.1 H ABG O2 Saturation 94.7 L ABG Base Excess 13.9 H ABG Hemoglobin 8.6 L Oxyhemoglobin 93.0 L Carboxyhemoglobin Sodium Potassium Chloride Carbon Dioxide BUN Creatinine Glucose POC Glucose 399 H 418 H Hemoglobin A1c Lactic Acid Calcium Phosphorus Magnesium Direct Bilirubin AST ALT Alkaline Phosphatase Lactate Dehydrogenase Total Protein Albumin Ur Specific [place] Urine Blood Urine WBC (Auto) Vancomycin Trough Crossmatch 02/07/22 02/07/22 02/07/22 12:20 17:29 23:37 WBC RBC Hgb Hct MCV MCH RDW Plt Count Seg Neuts % (Manual) Lymphocytes % (Manual) Nucleated RBC % Seg Neutrophils # Man Lymphocytes # (Manual) Percent Retic Fibrinogen ABG pH POC ABG pO2 ABG pO2 ABG HCO3 ABG O2 Saturation ABG Base Excess ABG Hemoglobin Oxyhemoglobin Carboxyhemoglobin Sodium Potassium Chloride Carbon Dioxide BUN Creatinine Glucose POC Glucose 229 H 159 H 236 H Hemoglobin A1c Lactic Acid Calcium Phosphorus Magnesium Direct Bilirubin AST ALT Alkaline Phosphatase Lactate Dehydrogenase Total Protein Albumin Ur Specific [place] Urine Blood Urine WBC (Auto) Vancomycin Trough Crossmatch 02/08/22 02/08/22 02/08/22 03:55 03:55 05:20 WBC 14.7 H RBC Hgb 7.7 L Hct 25.0 L MCV 64 L MCH 20 L RDW 25.1 H Plt Count 79 L Seg Neuts % (Manual) Lymphocytes % (Manual) Nucleated RBC % Seg Neutrophils # Man Lymphocytes # (Manual) Percent Retic 0.65 L Fibrinogen ABG pH POC ABG pO2 ABG pO2 ABG HCO3 ABG O2 Saturation ABG Base Excess ABG Hemoglobin Oxyhemoglobin Carboxyhemoglobin Sodium Potassium 3.0 L Chloride 93.9 L Carbon Dioxide 44 H* BUN 30 H Creatinine Glucose 229 H POC Glucose 235 H Hemoglobin A1c Lactic Acid Calcium 8.3 L Phosphorus 2.30 L Magnesium Direct Bilirubin AST 77 H ALT Alkaline Phosphatase 246 H Lactate Dehydrogenase Total Protein 5.2 L Albumin 2.7 L Ur Specific [place] Urine Blood Urine WBC (Auto) Vancomycin Trough Crossmatch 02/08/22 02/08/22 02/08/22 11:47 16:36 21:41 WBC RBC Hgb Hct MCV MCH RDW Plt Count Seg Neuts % (Manual) Lymphocytes % (Manual) Nucleated RBC % Seg Neutrophils # Man Lymphocytes # (Manual) Percent Retic Fibrinogen ABG pH POC ABG pO2 ABG pO2 ABG HCO3 ABG O2 Saturation ABG Base Excess ABG Hemoglobin Oxyhemoglobin Carboxyhemoglobin Sodium Potassium Chloride Carbon Dioxide BUN Creatinine Glucose POC Glucose 193 H 205 H 292 H Hemoglobin A1c Lactic Acid Calcium Phosphorus Magnesium Direct Bilirubin AST ALT Alkaline Phosphatase Lactate Dehydrogenase Total Protein Albumin Ur Specific [place] Urine Blood Urine WBC (Auto) Vancomycin Trough Crossmatch 02/08/22 02/08/22 02/09/22 Unknown 23:59 04:00 WBC 16.4 H RBC Hgb 8.2 L Hct 26.3 L MCV 63 L MCH 20 L RDW 23.9 H Plt Count 128 L Seg Neuts % (Manual) Lymphocytes % (Manual) Nucleated RBC % Seg Neutrophils # Man Lymphocytes # (Manual) Percent Retic Fibrinogen ABG pH 7.488 H POC ABG pO2 ABG pO2 63.1 L ABG HCO3 45.5 H ABG O2 Saturation 94.1 L ABG Base Excess 19.8 H ABG Hemoglobin 8.7 L Oxyhemoglobin 92.4 L Carboxyhemoglobin Sodium Potassium Chloride Carbon Dioxide BUN Creatinine Glucose POC Glucose 342 H Hemoglobin A1c Lactic Acid Calcium Phosphorus Magnesium Direct Bilirubin AST ALT Alkaline Phosphatase Lactate Dehydrogenase Total Protein Albumin Ur Specific [place] Urine Blood Urine WBC (Auto) Vancomycin Trough Crossmatch 02/09/22 02/09/22 02/09/22 04:00 05:30 06:07 WBC RBC Hgb Hct MCV MCH RDW Plt Count Seg Neuts % (Manual) Lymphocytes % (Manual) Nucleated RBC % Seg Neutrophils # Man Lymphocytes # (Manual) Percent Retic Fibrinogen ABG pH 7.539 H POC ABG pO2 ABG pO2 210.4 H ABG HCO3 42.4 H ABG O2 Saturation 99.3 H ABG Base Excess 18.0 H ABG Hemoglobin 7.8 L Oxyhemoglobin Carboxyhemoglobin Sodium 149 H Potassium 3.1 L Chloride 97.6 L Carbon Dioxide 42 H* BUN 27 H Creatinine Glucose 257 H POC Glucose 260 H Hemoglobin A1c Lactic Acid Calcium 8.2 L Phosphorus 1.90 L Magnesium Direct Bilirubin AST 81 H ALT Alkaline Phosphatase 229 H Lactate Dehydrogenase Total Protein 5.4 L Albumin 2.6 L Ur Specific [place] Urine Blood Urine WBC (Auto) Vancomycin Trough Crossmatch 02/09/22 02/09/22 02/09/22 11:16 17:33 20:25 WBC RBC Hgb Hct MCV MCH RDW Plt Count Seg Neuts % (Manual) Lymphocytes % (Manual) Nucleated RBC % Seg Neutrophils # Man Lymphocytes # (Manual) Percent Retic Fibrinogen ABG pH 7.504 H POC ABG pO2 ABG pO2 79.7 L ABG HCO3 44.2 H ABG O2 Saturation ABG Base Excess 19.2 H ABG Hemoglobin 7.0 L Oxyhemoglobin Carboxyhemoglobin Sodium Potassium Chloride Carbon Dioxide BUN Creatinine Glucose POC Glucose 184 H 123 H Hemoglobin A1c Lactic Acid Calcium Phosphorus Magnesium Direct Bilirubin AST ALT Alkaline Phosphatase Lactate Dehydrogenase Total Protein Albumin Ur Specific [place] Urine Blood Urine WBC (Auto) Vancomycin Trough Crossmatch 02/09/22 02/09/22 02/10/22 21:16 23:13 03:40 WBC 17.2 H RBC Hgb 7.9 L Hct 25.3 L MCV 63 L MCH 20 L RDW 20.7 H Plt Count Seg Neuts % (Manual) Lymphocytes % (Manual) Nucleated RBC % Seg Neutrophils # Man Lymphocytes # (Manual) Percent Retic Fibrinogen ABG pH POC ABG pO2 ABG pO2 ABG HCO3 ABG O2 Saturation ABG Base Excess ABG Hemoglobin Oxyhemoglobin Carboxyhemoglobin Sodium Potassium Chloride Carbon Dioxide BUN Creatinine Glucose POC Glucose 186 H 276 H Hemoglobin A1c Lactic Acid Calcium Phosphorus Magnesium Direct Bilirubin AST ALT Alkaline Phosphatase Lactate Dehydrogenase Total Protein Albumin Ur Specific [place] Urine Blood Urine WBC (Auto) Vancomycin Trough Crossmatch 02/10/22 02/10/22 02/10/22 03:40 04:17 04:17 WBC RBC Hgb Hct MCV MCH RDW Plt Count Seg Neuts % (Manual) Lymphocytes % (Manual) Nucleated RBC % Seg Neutrophils # Man Lymphocytes # (Manual) Percent Retic Fibrinogen ABG pH 7.468 H POC ABG pO2 ABG pO2 124.2 H ABG HCO3 42.1 H ABG O2 Saturation ABG Base Excess 16.6 H ABG Hemoglobin 7.6 L Oxyhemoglobin Carboxyhemoglobin Sodium 149 H Potassium 3.2 L Chloride Carbon Dioxide 38 H BUN 26 H Creatinine 0.5 L Glucose 188 H POC Glucose 189 H Hemoglobin A1c Lactic Acid Calcium 8.3 L Phosphorus 2.10 L Magnesium Direct Bilirubin AST 120 H ALT 80 H Alkaline Phosphatase 207 H Lactate Dehydrogenase Total Protein 5.3 L Albumin 2.4 L Ur Specific [place] Urine Blood Urine WBC (Auto) Vancomycin Trough Crossmatch 08/01/2502/10/22 02/10/22 11:46 16:27 21:15 WBC RBC Hgb Hct MCV MCH RDW Plt Count Seg Neuts % (Manual) Lymphocytes % (Manual) Nucleated RBC % Seg Neutrophils # Man Lymphocytes # (Manual) Percent Retic Fibrinogen ABG pH POC ABG pO2 ABG pO2 ABG HCO3 ABG O2 Saturation ABG Base Excess ABG Hemoglobin Oxyhemoglobin Carboxyhemoglobin Sodium Potassium Chloride Carbon Dioxide BUN Creatinine Glucose POC Glucose 189 H 198 H 261 H Hemoglobin A1c Lactic Acid Calcium Phosphorus Magnesium Direct Bilirubin AST ALT Alkaline Phosphatase Lactate Dehydrogenase Total Protein Albumin Ur Specific [place] Urine Blood Urine WBC (Auto) Vancomycin Trough Crossmatch 02/10/22 02/11/22 02/11/22 23:20 04:00 04:00 WBC 20.8 H RBC Hgb 7.7 L Hct 24.5 L MCV 64 L MCH 20 L RDW 23.5 H Plt Count Seg Neuts % (Manual) Lymphocytes % (Manual) Nucleated RBC % Seg Neutrophils # Man Lymphocytes # (Manual) Percent Retic Fibrinogen ABG pH POC ABG pO2 ABG pO2 ABG HCO3 ABG O2 Saturation ABG Base Excess ABG Hemoglobin Oxyhemoglobin Carboxyhemoglobin Sodium 148 H Potassium 3.3 L Chloride Carbon Dioxide 39 H BUN 27 H Creatinine 0.5 L Glucose 218 H POC Glucose 196 H Hemoglobin A1c Lactic Acid Calcium 8.3 L Phosphorus Magnesium Direct Bilirubin AST ALT Alkaline Phosphatase Lactate Dehydrogenase Total Protein Albumin Ur Specific [place] Urine Blood Urine WBC (Auto) Vancomycin Trough Crossmatch 02/11/22 02/11/22 02/11/22 05:00 05:57 11:15 WBC RBC Hgb Hct MCV MCH RDW Plt Count Seg Neuts % (Manual) Lymphocytes % (Manual) Nucleated RBC % Seg Neutrophils # Man Lymphocytes # (Manual) Percent Retic Fibrinogen ABG pH 7.459 H POC ABG pO2 ABG pO2 99.8 H ABG HCO3 41.4 H ABG O2 Saturation ABG Base Excess 15.9 H ABG Hemoglobin 7.5 L Oxyhemoglobin Carboxyhemoglobin Sodium Potassium Chloride Carbon Dioxide BUN Creatinine Glucose POC Glucose 173 H 204 H Hemoglobin A1c Lactic Acid Calcium Phosphorus Magnesium Direct Bilirubin AST ALT Alkaline Phosphatase Lactate Dehydrogenase Total Protein Albumin Ur Specific [place] Urine Blood Urine WBC (Auto) Vancomycin Trough Crossmatch 02/11/22 02/11/22 02/12/22 17:15 21:21 00:29 WBC RBC Hgb Hct MCV MCH RDW Plt Count Seg Neuts % (Manual) Lymphocytes % (Manual) Nucleated RBC % Seg Neutrophils # Man Lymphocytes # (Manual) Percent Retic Fibrinogen ABG pH POC ABG pO2 ABG pO2 ABG HCO3 ABG O2 Saturation ABG Base Excess ABG Hemoglobin Oxyhemoglobin Carboxyhemoglobin Sodium Potassium Chloride Carbon Dioxide BUN Creatinine Glucose POC Glucose 157 H 183 H 197 H Hemoglobin A1c Lactic Acid Calcium Phosphorus Magnesium Direct Bilirubin AST ALT Alkaline Phosphatase Lactate Dehydrogenase Total Protein Albumin Ur Specific [place] Urine Blood Urine WBC (Auto) Vancomycin Trough Crossmatch 02/12/22 02/12/22 02/12/22 04:17 04:17 05:00 WBC 23.9 H RBC Hgb 7.5 L Hct 24.2 L MCV 64 L MCH 20 L RDW 25.5 H Plt Count Seg Neuts % (Manual) Lymphocytes % (Manual) Nucleated RBC % Seg Neutrophils # Man Lymphocytes # (Manual) Percent Retic Fibrinogen ABG pH 7.467 H POC ABG pO2 ABG pO2 97.9 H ABG HCO3 40.7 H ABG O2 Saturation ABG Base Excess 15.3 H ABG Hemoglobin 7.5 L Oxyhemoglobin Carboxyhemoglobin Sodium 146 H Potassium Chloride Carbon Dioxide 39 H BUN 25 H Creatinine 0.4 L Glucose 135 H POC Glucose Hemoglobin A1c Lactic Acid Calcium Phosphorus Magnesium Direct Bilirubin AST ALT Alkaline Phosphatase Lactate Dehydrogenase Total Protein Albumin Ur Specific [place] Urine Blood Urine WBC (Auto) Vancomycin Trough Crossmatch 02/12/22 02/12/22 02/12/22 05:53 12:31 17:54 WBC RBC Hgb Hct MCV MCH RDW Plt Count Seg Neuts % (Manual) Lymphocytes % (Manual) Nucleated RBC % Seg Neutrophils # Man Lymphocytes # (Manual) Percent Retic Fibrinogen ABG pH POC ABG pO2 ABG pO2 ABG HCO3 ABG O2 Saturation ABG Base Excess ABG Hemoglobin Oxyhemoglobin Carboxyhemoglobin Sodium Potassium Chloride Carbon Dioxide BUN Creatinine Glucose POC Glucose 114 H 124 H 159 H Hemoglobin A1c Lactic Acid Calcium Phosphorus Magnesium Direct Bilirubin AST ALT Alkaline Phosphatase Lactate Dehydrogenase Total Protein Albumin Ur Specific [place] Urine Blood Urine WBC (Auto) Vancomycin Trough Crossmatch 02/12/22 02/13/22 02/13/22 22:09 03:40 04:00 WBC 23.6 H RBC 3.42 L Hgb 6.7 L Hct 21.7 L MCV 64 L MCH 20 L RDW 27.3 H Plt Count Seg Neuts % (Manual) Lymphocytes % (Manual) Nucleated RBC % Seg Neutrophils # Man Lymphocytes # (Manual) Percent Retic Fibrinogen ABG pH 7.465 H POC ABG pO2 ABG pO2 104.3 H ABG HCO3 39.4 H ABG O2 Saturation ABG Base Excess 14.3 H ABG Hemoglobin 6.7 L Oxyhemoglobin Carboxyhemoglobin Sodium Potassium Chloride Carbon Dioxide BUN Creatinine Glucose POC Glucose 160 H Hemoglobin A1c Lactic Acid Calcium Phosphorus Magnesium Direct Bilirubin AST ALT Alkaline Phosphatase Lactate Dehydrogenase Total Protein Albumin Ur Specific [place] Urine Blood Urine WBC (Auto) Vancomycin Trough Crossmatch 02/13/22 02/13/22 02/13/22 04:00 06:05 09:41 WBC RBC Hgb Hct MCV MCH RDW Plt Count Seg Neuts % (Manual) Lymphocytes % (Manual) Nucleated RBC % Seg Neutrophils # Man Lymphocytes # (Manual) Percent Retic Fibrinogen ABG pH POC ABG pO2 ABG pO2 ABG HCO3 ABG O2 Saturation ABG Base Excess ABG Hemoglobin Oxyhemoglobin Carboxyhemoglobin Sodium 146 H Potassium Chloride Carbon Dioxide 38 H BUN 25 H Creatinine 0.4 L Glucose 235 H POC Glucose 283 H Hemoglobin A1c Lactic Acid Calcium 8.0 L Phosphorus Magnesium Direct Bilirubin AST ALT 58 H Alkaline Phosphatase 143 H Lactate Dehydrogenase Total Protein 4.7 L Albumin 2.2 L Ur Specific [place] Urine Blood Urine WBC (Auto) Vancomycin Trough Crossmatch See Detail 02/13/22 02/13/22 02/13/22 11:37 18:30 21:47 WBC RBC Hgb Hct MCV MCH RDW Plt Count Seg Neuts % (Manual) Lymphocytes % (Manual) Nucleated RBC % Seg Neutrophils # Man Lymphocytes # (Manual) Percent Retic Fibrinogen ABG pH POC ABG pO2 ABG pO2 ABG HCO3 ABG O2 Saturation ABG Base Excess ABG Hemoglobin Oxyhemoglobin Carboxyhemoglobin Sodium Potassium Chloride Carbon Dioxide BUN Creatinine Glucose POC Glucose 132 H 187 H 279 H Hemoglobin A1c Lactic Acid Calcium Phosphorus Magnesium Direct Bilirubin AST ALT Alkaline Phosphatase Lactate Dehydrogenase Total Protein Albumin Ur Specific [place] Urine Blood Urine WBC (Auto) Vancomycin Trough Crossmatch 02/14/22 02/14/22 02/14/22 01:07 04:35 04:40 WBC 24.5 H RBC Hgb 9.4 L Hct 28.8 L D MCV 69 L MCH 23 L RDW 30.3 H Plt Count Seg Neuts % (Manual) Lymphocytes % (Manual) Nucleated RBC % Seg Neutrophils # Man Lymphocytes # (Manual) Percent Retic Fibrinogen ABG pH 7.484 H POC ABG pO2 ABG pO2 101.5 H ABG HCO3 35.8 H ABG O2 Saturation ABG Base Excess 11.1 H ABG Hemoglobin 9.4 L Oxyhemoglobin Carboxyhemoglobin Sodium Potassium Chloride Carbon Dioxide BUN Creatinine Glucose POC Glucose 267 H Hemoglobin A1c Lactic Acid Calcium Phosphorus Magnesium Direct Bilirubin AST ALT Alkaline Phosphatase Lactate Dehydrogenase Total Protein Albumin Ur Specific [place] Urine Blood Urine WBC (Auto) Vancomycin Trough Crossmatch 02/14/22 02/14/22 02/14/22 06:16 09:03 11:20 WBC RBC Hgb Hct MCV MCH RDW Plt Count Seg Neuts % (Manual) Lymphocytes % (Manual) Nucleated RBC % Seg Neutrophils # Man Lymphocytes # (Manual) Percent Retic Fibrinogen ABG pH POC ABG pO2 ABG pO2 ABG HCO3 ABG O2 Saturation ABG Base Excess ABG Hemoglobin Oxyhemoglobin Carboxyhemoglobin Sodium Potassium Chloride Carbon Dioxide 39 H BUN 20 H Creatinine 0.4 L Glucose 144 H POC Glucose 183 H 42 L Hemoglobin A1c Lactic Acid Calcium 8.3 L Phosphorus Magnesium Direct Bilirubin AST ALT Alkaline Phosphatase Lactate Dehydrogenase Total Protein Albumin Ur Specific [place] Urine Blood Urine WBC (Auto) Vancomycin Trough Crossmatch 02/14/22 02/14/22 02/14/22 18:07 18:10 18:36 WBC RBC Hgb Hct MCV MCH RDW Plt Count Seg Neuts % (Manual) Lymphocytes % (Manual) Nucleated RBC % Seg Neutrophils # Man Lymphocytes # (Manual) Percent Retic Fibrinogen ABG pH 7.518 H POC ABG pO2 ABG pO2 97.1 H ABG HCO3 38.8 H ABG O2 Saturation ABG Base Excess 13.8 H ABG Hemoglobin Oxyhemoglobin Carboxyhemoglobin Sodium Potassium Chloride Carbon Dioxide BUN Creatinine Glucose POC Glucose 29 L 143 H Hemoglobin A1c Lactic Acid Calcium Phosphorus Magnesium Direct Bilirubin AST ALT Alkaline Phosphatase Lactate Dehydrogenase Total Protein Albumin Ur Specific [place] Urine Blood Urine WBC (Auto) Vancomycin Trough Crossmatch 02/14/22 02/15/22 02/15/22 23:44 03:31 05:23 WBC 20.1 H RBC Hgb 8.4 L Hct 26.6 L MCV 69 L MCH 22 L RDW 31.5 H Plt Count Seg Neuts % (Manual) Lymphocytes % (Manual) Nucleated RBC % Seg Neutrophils # Man Lymphocytes # (Manual) Percent Retic Fibrinogen ABG pH POC ABG pO2 ABG pO2 ABG HCO3 ABG O2 Saturation ABG Base Excess ABG Hemoglobin Oxyhemoglobin Carboxyhemoglobin Sodium Potassium Chloride Carbon Dioxide BUN Creatinine Glucose POC Glucose 229 H 232 H Hemoglobin A1c Lactic Acid Calcium Phosphorus Magnesium Direct Bilirubin AST ALT Alkaline Phosphatase Lactate Dehydrogenase Total Protein Albumin Ur Specific [place] Urine Blood Urine WBC (Auto) Vancomycin Trough Crossmatch 02/15/22 02/15/22 02/15/22 11:32 17:41 23:24 WBC RBC Hgb Hct MCV MCH RDW Plt Count Seg Neuts % (Manual) Lymphocytes % (Manual) Nucleated RBC % Seg Neutrophils # Man Lymphocytes # (Manual) Percent Retic Fibrinogen ABG pH POC ABG pO2 ABG pO2 ABG HCO3 ABG O2 Saturation ABG Base Excess ABG Hemoglobin Oxyhemoglobin Carboxyhemoglobin Sodium Potassium Chloride Carbon Dioxide BUN Creatinine Glucose POC Glucose 160 H 211 H 261 H Hemoglobin A1c Lactic Acid Calcium Phosphorus Magnesium Direct Bilirubin AST ALT Alkaline Phosphatase Lactate Dehydrogenase Total Protein Albumin Ur Specific [place] Urine Blood Urine WBC (Auto) Vancomycin Trough Crossmatch 02/16/22 02/16/22 02/16/22 04:36 04:36 05:11 WBC 17.3 H RBC Hgb 8.1 L Hct 26.6 L MCV 70 L MCH 21 L RDW 30.8 H Plt Count Seg Neuts % (Manual) Lymphocytes % (Manual) Nucleated RBC % Seg Neutrophils # Man Lymphocytes # (Manual) Percent Retic Fibrinogen ABG pH POC ABG pO2 ABG pO2 ABG HCO3 ABG O2 Saturation ABG Base Excess ABG Hemoglobin Oxyhemoglobin Carboxyhemoglobin Sodium Potassium Chloride Carbon Dioxide 34 H BUN 20 H Creatinine 0.4 L Glucose 206 H POC Glucose 198 H Hemoglobin A1c Lactic Acid Calcium 7.7 L Phosphorus Magnesium Direct Bilirubin AST ALT Alkaline Phosphatase Lactate Dehydrogenase Total Protein Albumin Ur Specific [place] Urine Blood Urine WBC (Auto) Vancomycin Trough Crossmatch 02/16/22 02/16/22 02/17/22 11:25 16:29 00:16 WBC RBC Hgb Hct MCV MCH RDW Plt Count Seg Neuts % (Manual) Lymphocytes % (Manual) Nucleated RBC % Seg Neutrophils # Man Lymphocytes # (Manual) Percent Retic Fibrinogen ABG pH POC ABG pO2 ABG pO2 ABG HCO3 ABG O2 Saturation ABG Base Excess ABG Hemoglobin Oxyhemoglobin Carboxyhemoglobin Sodium Potassium Chloride Carbon Dioxide BUN Creatinine Glucose POC Glucose 130 H 182 H 220 H Hemoglobin A1c Lactic Acid Calcium Phosphorus Magnesium Direct Bilirubin AST ALT Alkaline Phosphatase Lactate Dehydrogenase Total Protein Albumin Ur Specific [place] Urine Blood Urine WBC (Auto) Vancomycin Trough Crossmatch 02/17/22 02/17/22 02/17/22 05:00 05:06 05:58 WBC RBC Hgb Hct MCV MCH RDW Plt Count Seg Neuts % (Manual) Lymphocytes % (Manual) Nucleated RBC % Seg Neutrophils # Man Lymphocytes # (Manual) Percent Retic Fibrinogen ABG pH 7.463 H POC ABG pO2 ABG pO2 113.6 H ABG HCO3 32.8 H ABG O2 Saturation ABG Base Excess 8.1 H ABG Hemoglobin 8.0 L Oxyhemoglobin Carboxyhemoglobin Sodium Potassium Chloride Carbon Dioxide 34 H BUN 22 H Creatinine 0.4 L Glucose 314 H POC Glucose 269 H Hemoglobin A1c Lactic Acid Calcium 8.1 L Phosphorus Magnesium Direct Bilirubin AST ALT Alkaline Phosphatase Lactate Dehydrogenase Total Protein 5.4 L Albumin 2.5 L Ur Specific [place] Urine Blood Urine WBC (Auto) Vancomycin Trough Crossmatch 02/17/22 02/17/22 02/17/22 11:18 16:41 21:51 WBC RBC Hgb Hct MCV MCH RDW Plt Count Seg Neuts % (Manual) Lymphocytes % (Manual) Nucleated RBC % Seg Neutrophils # Man Lymphocytes # (Manual) Percent Retic Fibrinogen ABG pH POC ABG pO2 ABG pO2 ABG HCO3 ABG O2 Saturation ABG Base Excess ABG Hemoglobin Oxyhemoglobin Carboxyhemoglobin Sodium Potassium Chloride Carbon Dioxide BUN Creatinine Glucose POC Glucose 135 H 248 H 266 H Hemoglobin A1c Lactic Acid Calcium Phosphorus Magnesium Direct Bilirubin AST ALT Alkaline Phosphatase Lactate Dehydrogenase Total Protein Albumin Ur Specific [place] Urine Blood Urine WBC (Auto) Vancomycin Trough Crossmatch 02/17/22 02/18/22 02/18/22 23:38 01:04 04:00 WBC 14.8 H RBC Hgb 8.3 L Hct 27.3 L MCV 71 L MCH 22 L RDW 30.5 H Plt Count Seg Neuts % (Manual) Lymphocytes % (Manual) Nucleated RBC % Seg Neutrophils # Man Lymphocytes # (Manual) Percent Retic Fibrinogen ABG pH POC ABG pO2 ABG pO2 ABG HCO3 ABG O2 Saturation ABG Base Excess ABG Hemoglobin Oxyhemoglobin Carboxyhemoglobin Sodium Potassium Chloride Carbon Dioxide BUN Creatinine Glucose POC Glucose 287 H 272 H Hemoglobin A1c Lactic Acid Calcium Phosphorus Magnesium Direct Bilirubin AST ALT Alkaline Phosphatase Lactate Dehydrogenase Total Protein Albumin Ur Specific [place] Urine Blood Urine WBC (Auto) Vancomycin Trough Crossmatch 02/18/22 02/18/22 02/18/22 04:00 05:38 11:27 WBC RBC Hgb Hct MCV MCH RDW Plt Count Seg Neuts % (Manual) Lymphocytes % (Manual) Nucleated RBC % Seg Neutrophils # Man Lymphocytes # (Manual) Percent Retic Fibrinogen ABG pH POC ABG pO2 ABG pO2 ABG HCO3 ABG O2 Saturation ABG Base Excess ABG Hemoglobin Oxyhemoglobin Carboxyhemoglobin Sodium Potassium Chloride Carbon Dioxide 32 H BUN 20 H Creatinine 0.3 L Glucose 132 H POC Glucose 117 H 44 L Hemoglobin A1c Lactic Acid Calcium Phosphorus Magnesium Direct Bilirubin AST ALT Alkaline Phosphatase Lactate Dehydrogenase Total Protein Albumin Ur Specific [place] Urine Blood Urine WBC (Auto) Vancomycin Trough Crossmatch 02/18/22 02/18/22 02/18/22 11:29 11:49 13:41 WBC RBC Hgb Hct MCV MCH RDW Plt Count Seg Neuts % (Manual) Lymphocytes % (Manual) Nucleated RBC % Seg Neutrophils # Man Lymphocytes # (Manual) Percent Retic Fibrinogen ABG pH POC ABG pO2 ABG pO2 ABG HCO3 ABG O2 Saturation ABG Base Excess ABG Hemoglobin Oxyhemoglobin Carboxyhemoglobin Sodium Potassium Chloride Carbon Dioxide BUN Creatinine Glucose POC Glucose 50 L 216 H 128 H Hemoglobin A1c Lactic Acid Calcium Phosphorus Magnesium Direct Bilirubin AST ALT Alkaline Phosphatase Lactate Dehydrogenase Total Protein Albumin Ur Specific [place] Urine Blood Urine WBC (Auto) Vancomycin Trough Crossmatch 02/18/22 02/19/22 02/19/22 21:37 00:45 06:05 WBC RBC Hgb Hct MCV MCH RDW Plt Count Seg Neuts % (Manual) Lymphocytes % (Manual) Nucleated RBC % Seg Neutrophils # Man Lymphocytes # (Manual) Percent Retic Fibrinogen ABG pH POC ABG pO2 ABG pO2 ABG HCO3 ABG O2 Saturation ABG Base Excess ABG Hemoglobin Oxyhemoglobin Carboxyhemoglobin Sodium Potassium Chloride Carbon Dioxide BUN Creatinine Glucose POC Glucose 119 H 131 H 149 H Hemoglobin A1c Lactic Acid Calcium Phosphorus Magnesium Direct Bilirubin AST ALT Alkaline Phosphatase Lactate Dehydrogenase Total Protein Albumin Ur Specific [place] Urine Blood Urine WBC (Auto) Vancomycin Trough Crossmatch 02/19/22 02/19/22 06:10 06:10 WBC 21.4 H RBC Hgb 8.7 L Hct 28.0 L MCV 69 L MCH 22 L RDW 30.9 H Plt Count 466 H Seg Neuts % (Manual) Lymphocytes % (Manual) Nucleated RBC % Seg Neutrophils # Man Lymphocytes # (Manual) Percent Retic Fibrinogen ABG pH POC ABG pO2 ABG pO2 ABG HCO3 ABG O2 Saturation ABG Base Excess ABG Hemoglobin Oxyhemoglobin Carboxyhemoglobin Sodium Potassium Chloride Carbon Dioxide BUN Creatinine 0.3 L Glucose 143 H POC Glucose Hemoglobin A1c Lactic Acid Calcium Phosphorus Magnesium Direct Bilirubin AST ALT Alkaline Phosphatase Lactate Dehydrogenase Total Protein Albumin Ur Specific [place] Urine Blood Urine WBC (Auto) Vancomycin Trough Crossmatch
[2022-02-19] MEDS ORDERED: predniSONE 20 MG TAB FEEDTUBE SCH (11:00)
[2022-02-19] MEDS ORDERED: DEXTROSE 5% IN WATER 1,000 ML IV SCH (12:00)
--- NOTE | 2022-02-19 12:12 | Progress Note ---
<NICOLA TREVINO - Last Filed: 02/19/22 21:52> Assessment and Plan Assessment and plan: This is a 61-year-old female with known past medical history of DM, dementia, HLD, and HTN initially admitted for Hypoglycemia then went into DKA and was transferred to the ICU where she PEA arrested on 02/01. Patient is now with septic shock and on ventilatory support. Hospital Course to Date: 02/01: patient was transferred to ICU as lab work was consistent with DKA and started on insulin drip. Central line placed for IV access. Patient was given bicarb push and started on a bicarb drip. She was also started on Rocephin due to UTI however antibiotics are broadened to cefepime and vancomycin. 02/02: s/p cardiac arrest on 02/01. Bicarbonate drip discontinued. Pancytopenia noted, anion gap closed and transitioned to SSI and long-acting insulin. Patient was having hypoglycemia this morning which has been corrected now. Started on tube feeding. Potassium and phosphorus will be repleted. Hype rnatremia noted and FWF started with tube feedings. COVID-19 PCR pending. Venous Doppler ultrasound pending. Neurology and cardiology consulted. Echocardiogram pending. Patient currently on Levophed and sedated with propofol. Fentanyl added. Given 1 LR bolus this morning for hypotension. 02/03: LR bolus x2, remains on levophed, tachycardia and EKG completed which shows tachycardia. Increase in FiO2, Will culture with next temp spike. Will give 1 gm Calcium Gluconate. 02/04: S/p Bronch this am by [facility] at the bedside. Patient still spiking high temp despite broad spectrum IV Abx. Remains on high pressors with worsen neutropenia and thrombocytopenia. Will panculture this am, antifungal culture was also ordered. Continue current empiric IV Abx for now, awaiting sensitivity. Will also consult ID for further eval. Possible Hematology consult for pancytopenia per CCM. Possible family meeting with [facility] this week, case management to arrange. 02/05: Back up on full support on the vent. CXR with worsen bilateral opacities, S/p X1 dose of IV lasix. Patient also received 1units of PRBCs overnight due to anemia, H&H stable this am and no s/s of any active bleeding. Patient remains pancytopenic, still febrile. IV abx changed to Merrem and Vanc per ID, hematology consult pending. ST with episodes of SVT this am, plan for amiodarone gtt per Cardio. Off pressors this am. BP remains boderline, 25% IV Albumin and X1 dose of additional IV lasix gain today per CCM. Continue FWF for hypernatremi a. Lantus adjusted due to hypoglycemia. Possible family meeting tomorrow with [facility]. 8/3: Decompensated this am, sudden drop in SPO2 in the 80s, HR in the 50s, and MAP in the 40s. Back on 2 pressors, on 100% FIO2 and 12 of peep. Stat ABG pending, 1amp Bcarb given, stress dose steroids initiated. This an CXR reviewed with worsen opacities from prior. Patient remains on IV abx per ID. Hematology recommendations appreciated. Event discussed with [facility] who agreed with current intervention. Patient's daughter and sister were notified via phone. Current events, patient's diagnosis, overal condition, and poor prognosis were thoroughly discussed. GOC was also addressed with patient's daughter and sister, they voiced that if patient was able to speak for herself she would want all lifesaving measures, including CPR and medications if her heart stop. All questions and concerns were addressed at this time. They verbalized understanding and agreed with current care plan. Patient remains a FULL code status at This time. 84: Responded well to IV lasix and albumin overnight. CXR with some improvement today. IV lasix and albumin gain today per CCM. With increased WOB and tachpnea this am, low dose propofol added for RASS goal of 0 to -2. Wean FIO2 as tolerated for SPO2 goal above 92%. Worsen hyperglycemia this am, most like due to IV steroids, insulin therapy adjusted. Monitor and replace electrolytes as needed. Family meeting today with [facility], patient remains a FULL code status. 85: Tolerating gentle diurese. Patient missed overnight IV lasix/albumin dose, will repeat another dose this morning. Continue to wean Fio2 as tolerated. Remains off pressors, VSS. Concern for BLE ischemia probably due to hypoperfusion vs pressor use. Will check BLE arterial doppler to r/o occlusion. Possible Vascular Surgery consult dependent on doppler result. Lantus adjusted for persisting hyperglycemia. Electrolytes repleted, monitor and replace electrolytes as needed. 86: This am ABG and CXR with some improvement this am. Down to 55% Fio2 this am. Hypotensive overnight required short duration of Levophed gtt, pressor is off this am. Will hold on IV diuretic today. Continue to monitor for now. Electrolytes repleted, monitor and replace electrolytes as needed. Prior history of psych issues, seroquel added BID. BLE doppler pending. 02/10: Remains stable on the vent. Down to 40% Fio2 and peep of 10 this am, SPO2 above 95%, CXR is unchanged. Continue vent wean as tolerated. Remains on IV steroid, will start tapering tomorrow. Per [facility], plan is to optimize patient on the vent for possible trach and PEG. FWF increased for persistent hypernatremia. K and phos repleted. Continue to monitor and replace electrolytes as needed. 02/11: Water flush continued at 300 mL every 4, potassium repleted, remains on vasopressors. No acute events reported overnight. intiate seriod taper 02/12: Patient being weaned down IV fentanyl pushes ordered, Lantus decreased, decreased PEEP and RT placed on pressure support this afternoon. No acute events overnight. 02/13: Patient attempted on PSV again today, steroids continue to be tapered. Tentative extubation tomorrow was supplanted by [facility]. Patient only lasted 3 hours again today. Vascular surgery consult completed and recommended plavix. 02/14: Patient was extubated today to nasal cannula. This afternoon she was started on high flow nasal cannula. No acute events reported overnight. Steroids tapered. Femoral A-line removed. 02/15: No acute events reported overnight. Surgery consulted for trach/PEG.. COVID-[address] abdomen/pelvis pending. Possible trach/PEG placement on 02/18. 02/16: PICC line to be placed today. Given 1 dose of albumin with Lasix. Discontinue CVL. No acute events reported overnight. 02/17: No acute events reported overnight, now bilateral lower extremities with discoloration. Plavix scheduled to start Friday. PEG/trach scheduled for Friday. PICC line consent obtained. lantus adjusted. CPAP today. 02/18: KYLAH overnight. Plan for trach and PEG today by General Surgery in OR. Worsen LE ischemia noted, pending CTA chest/Abd/pelvis. Vascular Surgery is also following. 02/19: s/p Trach and PEG yesterday. Patient did not tolerate TF overnight, projectile vomitting reported. TF currently on hold, KUB is unremarkable. Scheduled reglan added, will hold TF for now. High fevers with worsen leukocytosis this am, will panculture for now. ST, HR in the 130s this am, BP stable. 1L of IVF bolus given, will hold IV Abx for now. Will added low rate D10w for now for hypoglycemia, most likely due to NPO status. Will also hold Lantus, resume once TF is tolerated. CTA chest/ABd/Pelvis still pendinf, awaiting Vascular surgery final recommendation for mitchell ischemia Assessment and Plan #Septic Shock #Supraventricular Tachycardia(SVT) #S/p PEA Arrest with ROSC #H/o HTN, HLD - Coded in the ICU on 02/01, PEA arrest - ROSC achieved post 1amp of bcarb and EPI - With tachycardia, persistent fevers, s/p multiple pressors - off pressors this am. ST on the monitor, VSS - On Stress dose steroids- tapering - Echo reviewed, EF 55-60%, see report for detail - Cardiology consulted, appreciated recommendations - amiodarone gtt transitioned to PO per Cardio - Continue blood pressure monitor per protocol - Pressor on standby for MAP less than 65 #Acute Hypoxic Respiratory Failure #ARDS #Bilateral Pneumonia - Intubated during code on 02/01 - This am CXR with worsening bilateral airspace opacities - 02/04 s/p Bronchoscopy at the bedside by [facility]- BAL sent to lab - 02/18 s/p Trach and PEG-Tube placement - Vent setting: PRVC-30%,6,12,350 - s/p albumin and IV lasix - [facility] consulted, appreciate recommendations - Continue vent wean per CCM - VAP bundle addressed - Aspiration precaution HOB above 30 - Daily ABG and CXR - Continue SPO2 monitoring for SPO2 goal above 92% - Per [facility], plan is to optimize patient on the vent for possible trach and PEG #Persistent Fevers #Septic Shock #Bilateral Pneumonia #Urinary Tract Infection(UTI) - UA consistent with pyuria, Blood cultures with NGTD, Sputum culture with Klebsiella Pneumoniae, repeat cultures with NGTD - Completed Iv Abx course per ID - Now with high fevers and worsen leukocytosis - Will panculture today. hold off on IV abx for now - f/u on culture - Monitor CBC and temperature curve - ID signed off. Reconsult if cultures + #Microcytic Anemia #Pancytopenia-Resolved - Significant drop of WBCs and Plt count from admit - Probably due to septic shock, on IV Abx per ID - S/p 2unit PRBCs - No s/s of active bleeding, H&H stable this am - Continue to trend CBC - Hematology signed off #Acute Metabolic Encephalopathy #h/o Dementia and Psych Issues - Intubated and Sedated- on fentanyl - Titrate sedations for RASS goal of 0 to -2 - Seroquel added BID - Daily SAT and SBT per CCM - Avoid benzodiazepine to reduce the possibility of delirium - PRN Analgesia for CPOT greater than 3 - Maintenance of sleep-wake cycle - Neurology consulted, appreciate recommendations #Hypokalemia #Hypernatremia - Strict intake and output - Avoid nephrotoxic medications - Monitor and replace electrolytes as needed #BLE Ischemia - probably due to hypoperfusion vs pressor use. - BLE arterial doppler noted - Vascular Surgery consulted - CTA chest/Abd/Plevis pending #Type 2 Diabetes mellitus #S/p DKA - initially presented with hypoglycemia then went into DKA - s/p DKA protocol - Hemoglobin A1c 11.1 - Now with hyperglycemia, most likely due to IV steroids - Continue BG and SSI Q6hrs and Lantus qHs- Held due to hypoglycemia - Avoid Hypoglycemia #GI/DVT Prophylaxis - PPI- Pepcid - SCDs to bilateral lower extremities while in bed #Advance Care Planning - Patient's diagnosis, overal condition, and poor prognosis were thoroughly discussed. GOC was also addressed with patient's daughter and sister, they voiced that if patient was able to speak for herself she would want all lifesaving measures, including CPR and medications if her heart stop. All questions and concerns were addressed at this time. They verbalized understanding and agreed with current care plan. Patient remains a FULL code status at This time. The high probability of a clinically significant, sudden or life threatening deterioration of the [Multiple] system(s) required my full and direct attention, intervention and personal management. The aggregate critical care time was [60] minutes. This time is in addition to time spent performing reported procedures but includes the following: [x] Data Review and interpretation [x] Patient assessment and monitoring of vital signs [x] Documentation [x] Medication orders and management Disposition Plan: ICU Total Time Spent with Patient (Minutes): 60 History Interval history: Patient seen and examined at the bedside. S/p Trach and PEG, TF resumed overnight. Patient with significant emesis. Also spiked high temp overnight and this am, VSS. Hospitalist Physical - Physical exam Narrative exam: General appearance: Present: no acute distress, other (on the vent) - EENT Eyes: Present: PERRLA - Respiratory Respiratory effort: Unlaborded Respiratory: bilateral: rhonchi - Cardiovascular Rhythm: regular Heart Sounds: Present: S1 & S2 - Extremities Extremities: Abnormal. BLE cold to touch, ischemia. Absent pulses Extremity abnormal: edema - Peripheral Assessment Generalized Edema Type: Pitting Edema Degree: 2+ Capillary Refill: < 3 seconds Skin Temperature: Warm Peripheral Pulses: within normal limits - Abdominal General gastrointestinal: soft, non-distended, normal bowel sounds - Integumentary Integumentary: Present: warm (Weeping) - Psychiatric Psychiatric: other (Lethargic, open eyes spontaneously) - Neurologic Neurologic: move all extremities(Non-purposeful), other (Lethargic, open eyes spontaneously) - Allied Health Allied health notes reviewed: nursing, case management - Constitutional Vitals: Temp Pulse Resp BP Pulse Ox 102.0 F H 124 H 14 123/76 100 02/19/22 12:05 02/19/22 12:00 02/19/22 12:00 02/19/22 12:00 02/19/22 12:00 HEART Score - HEART Score Troponin: Troponin T < 0.010 ng/mL (0.00-0.029) 02/03/22 16:15 Results - Labs CBC & Chem 7: 02/19/22 06:10 02/19/22 06:10 Labs: Laboratory Last Values WBC 21.4 K/mm3 (4.5-11.0) H 02/19/22 06:10 RBC 4.06 M/mm3 (3.65-5.03) 02/19/22 06:10 Hgb 8.7 gm/dl (10.1-14.3) L 02/19/22 06:10 Hct 28.0 % (30.3-42.9) L 02/19/22 06:10 MCV 69 fl (79-97) L 02/19/22 06:10 MCH 22 pg (28-32) L 02/19/22 06:10 MCHC 31 % (30-34) 02/19/22 06:10 RDW 30.9 % (13.2-15.2) H 02/19/22 06:10 Plt Count 466 K/mm3 (140-440) H 02/19/22 06:10 Lymph % (Auto) [employer]ingo Cashier 02/02/22 04:00 Add Manual Diff Complete 02/03/22 04:00 Total Counted 50 02/03/22 04:00 Seg Neutrophils % [employer]ingo Cashier 02/02/22 04:00 Seg Neuts % (Manual) 76.0 % (40.0-70.0) H 02/03/22 04:00 Band Neutrophils % 18.0 % 02/03/22 04:00 Lymphocytes % (Manual) 2.0 % (13.4-35.0) L 02/03/22 04:00 Reactive Lymphs % (Man) 0 % 02/03/22 04:00 Monocytes % (Manual) 4.0 % (0.0-7.3) 02/03/22 04:00 Eosinophils % (Manual) 0 % (0.0-4.3) 02/03/22 04:00 Basophils % (Manual) 0 % (0.0-1.8) 02/03/22 04:00 Metamyelocytes % 0 % 02/03/22 04:00 Myelocytes % 0 % 02/03/22 04:00 Promyelocytes % 0 % 02/03/22 04:00 Blast Cells % 0 % 02/03/22 04:00 Nucleated RBC % 4.0 % (0.0-0.9) H 02/03/22 04:00 Seg Neutrophils # Man 2.8 K/mm3 (1.8-7.7) 02/03/22 04:00 Band Neutrophils # 0.7 K/mm3 02/03/22 04:00 Lymphocytes # (Manual) 0.1 K/mm3 (1.2-5.4) L 02/03/22 04:00 Abs React Lymphs (Man) 0.0 K/mm3 02/03/22 04:00 Monocytes # (Manual) 0.1 K/mm3 (0.0-0.8) 02/03/22 04:00 Eosinophils # (Manual) 0.0 K/mm3 (0.0-0.4) 02/03/22 04:00 Basophils # (Manual) 0.0 K/mm3 (0.0-0.1) 02/03/22 04:00 Metamyelocytes # 0.0 K/mm3 02/03/22 04:00 Myelocytes # 0.0 K/mm3 02/03/22 04:00 Promyelocytes # 0.0 K/mm3 02/03/22 04:00 Blast Cells # 0.0 K/mm3 02/03/22 04:00 WBC Morphology Not Reportable 02/03/22 04:00 Hypersegmented Neuts Not Reportable 02/03/22 04:00 Hyposegmented Neuts Not Reportable 02/03/22 04:00 Hypogranular Neuts Not Reportable 02/03/22 04:00 Smudge Cells Not Reportable 02/03/22 04:00 Toxic Granulation Not Reportable 02/03/22 04:00 Toxic Vacuolation Not Reportable 02/03/22 04:00 Dohle Bodies Few 02/03/22 04:00 Pelger-Huet Anomaly Not Reportable 02/03/22 04:00 Sung Rods Not Reportable 02/03/22 04:00 Platelet Estimate Consistent w auto 02/03/22 04:00 Clumped Platelets Not Reportable 02/03/22 04:00 Plt Clumps, EDTA Not Reportable 02/03/22 04:00 Large Platelets Not Reportable 02/03/22 04:00 Giant Platelets Not Reportable 02/03/22 04:00 Platelet Satelliting Not Reportable 02/03/22 04:00 Plt Morphology Comment Not Reportable 02/03/22 04:00 RBC Morphology Not Reportable 02/03/22 04:00 Dimorphic RBCs Not Reportable 02/03/22 04:00 Polychromasia Not Reportable 02/03/22 04:00 Hypochromasia 3+ 02/03/22 04:00 Poikilocytosis 2+ 02/03/22 04:00 Anisocytosis 1+ 02/03/22 04:00 Microcytosis 2+ 02/03/22 04:00 Macrocytosis Not Reportable 02/03/22 04:00 Spherocytes Not Reportable 02/03/22 04:00 Pappenheimer Bodies Not Reportable 02/03/22 04:00 Sickle Cells Not Reportable 02/03/22 04:00 Target Cells 1+ 02/03/22 04:00 Tear Drop Cells Few 02/03/22 04:00 Ovalocytes Few 02/03/22 04:00 Helmet Cells Not Reportable 02/03/22 04:00 [place] Bodies Not Reportable 02/03/22 04:00 [place] Rings Not Reportable 02/03/22 04:00 [place] Cells 1+ 02/03/22 04:00 Bite Cells Not Reportable 02/03/22 04:00 Crenated Cell Not Reportable 02/03/22 04:00 Elliptocytes Few 02/03/22 04:00 Acanthocytes (Spur) Not Reportable 02/03/22 04:00 Rouleaux Not Reportable 02/03/22 04:00 Hemoglobin C Crystals Not Reportable 02/03/22 04:00 Schistocytes Rare 02/03/22 04:00 Malaria parasites Not Reportable 02/03/22 04:00 Percent Retic 0.65 % (0.78-2.58) L 02/08/22 03:55 Sven Bodies Not Reportable 02/03/22 04:00 Hem Pathologist Commnt No 02/03/22 04:00 PT 13.7 Sec. (12.2-14.9) 02/18/22 04:00 INR 0.95 (0.87-1.13) 02/18/22 04:00 APTT 29.5 Sec. (24.2-36.6) 02/16/22 04:36 Fibrinogen 795 mg/dl (211-480) H 02/05/22 08:48 ABG pH 7.463 pH Units (7.350-7.450) H 02/17/22 05:06 POC ABG pCO2 37.3 mmHg (32.0-48.0) 02/02/22 04:49 ABG pCO2 46.8 mm Hg 02/17/22 05:06 POC ABG pO2 79.9 mmHg (83-108) L 02/02/22 04:49 ABG pO2 113.6 mm Hg (80.0-90.0) H 02/17/22 05:06 POC ABG HCO3 30.3 02/02/22 04:49 ABG HCO3 32.8 mmol/L (20.0-26.0) H 02/17/22 05:06 ABG O2 Saturation 98.2 % (95.0-99.0) 02/17/22 05:06 ABG O2 Content 11.0 (0.0-44) 02/17/22 05:06 POC ABG Base Excess 7.1 02/02/22 04:49 ABG Base Excess 8.1 mmol/L (-2.0-3.0) H 02/17/22 05:06 ABG Hemoglobin 8.0 gm/dl (12.0-16.0) L 02/17/22 05:06 ABG Oxyhemoglobin 96.0 (94-98) 02/02/22 04:49 ABG Carboxyhemoglobin 1.7 % (0.0-5.0) 02/17/22 05:06 ABG Methemoglobin 0.5 % (0.0-1.5) 02/17/22 05:06 ABG Sodium Not Reportable 02/02/22 04:49 ABG Potassium Not Reportable 02/02/22 04:49 ABG Chloride Not Reportable 02/02/22 04:49 ABG Glucose Not Reportable 02/02/22 04:49 Oxyhemoglobin 96.0 % (95.0-99.0) 02/17/22 05:06 Carboxyhemoglobin 0.2 (0.5-1.5) L 02/02/22 04:49 FiO2 30 % 02/17/22 05:06 FiO2 % 60.0 02/02/22 04:49 Sodium 142 mmol/L (137-145) 02/19/22 06:10 Potassium 4.2 mmol/L (3.6-5.0) 02/19/22 06:10 Chloride 103.8 mmol/L (98-107) 02/19/22 06:10 Carbon Dioxide 29 mmol/L (22-30) 02/19/22 06:10 Anion Gap 13 mmol/L 02/19/22 06:10 BUN 16 mg/dL (7-17) 02/19/22 06:10 Creatinine 0.3 mg/dL (0.6-1.2) L 02/19/22 06:10 Estimated GFR > 60 ml/min 02/19/22 06:10 BUN/Creatinine Ratio 53 % 02/19/22 06:10 Glucose 143 mg/dL (65-100) H 02/19/22 06:10 POC Glucose 26 mg/dL (70-105) L 02/19/22 11:51 Hemoglobin A1c 11.1 % (4-6) H 02/01/22 12:54 Lactic Acid 2.50 mmol/L (0.7-2.0) H* 02/06/22 11:50 Calcium 8.6 mg/dL (8.4-10.2) 02/19/22 06:10 Phosphorus 3.90 mg/dL (2.5-4.5) 02/15/22 09:12 Magnesium 2.20 mg/dL (1.7-2.3) 02/15/22 09:12 Total Bilirubin 0.50 mg/dL (0.1-1.2) 02/17/22 05:00 Direct Bilirubin < 0.2 mg/dL (0-0.2) 02/13/22 04:00 Indirect Bilirubin 0.1 mg/dL 02/13/22 04:00 AST 38 units/L (5-40) 02/17/22 05:00 ALT 28 units/L (7-56) 02/17/22 05:00 Alkaline Phosphatase 102 units/L (35-129) 02/17/22 05:00 Lactate Dehydrogenase 879 units/L (91-180) H 02/05/22 04:40 Troponin T < 0.010 ng/mL (0.00-0.029) 02/03/22 16:15 Total Protein 5.4 g/dL (6.3-8.2) L 02/17/22 05:00 Albumin 2.5 g/dL (3.9-5) L 02/17/22 05:00 Albumin/Globulin Ratio 0.9 % 02/17/22 05:00 Arterial Blood Glucose Not Reportable 02/02/22 04:49 Urine Color Yellow (Yellow) 02/04/22 09:15 Urine Turbidity Cloudy (Clear) 02/04/22 09:15 Urine pH 6.0 (5.0-7.0) 02/04/22 09:15 Ur Specific [place] 1.025 (1.003-1.030) 02/04/22 09:15 Urine Protein >500 mg/dL (Negative) 02/04/22 09:15 Urine Glucose (UA) Negative mg/dL (Negative) 02/04/22 09:15 Urine Ketones Negative mg/dL (Negative) 02/04/22 09:15 Urine Blood Large (Negative) A 02/04/22 09:15 Urine Nitrite Negative (Negative) 02/04/22 09:15 Ur Reducing Substances Not Reportable 01/31/22 22:49 Urine Bilirubin Negative (Negative) 02/04/22 09:15 Urine Ictotest Not Reportable 01/31/22 22:49 Urine Urobilinogen < 2.0 mg/dL (<2.0) 02/04/22 09:15 Ur Leukocyte Esterase Negative (Negative) 02/04/22 09:15 Urine WBC (Auto) 12.0 /HPF (0.0-6.0) H 02/04/22 09:15 Urine RBC (Auto) 107.0 /HPF (0.0-6.0) 02/04/22 09:15 U Epithel Cells (Auto) 1.0 /HPF (0-13.0) 02/04/22 09:15 Urine Bacteria (Auto) 1+ /HPF (Negative) 02/04/22 09:15 Urine Mucus Few /HPF 02/04/22 09:15 Urine Yeast (Budding) 2+ /HPF 02/04/22 09:15 Vancomycin Trough 28.6 ug/mL (5.0-20.0) H 02/05/22 Unknown Coronavirus (PCR) Negative (Negative) 02/02/22 10:44 SARS-CoV-2 (PCR) Negative (Negative) 02/15/22 09:39 HIV 1&2 Antibody Rapid Non react (Non React) 02/04/22 14:37 HIV P24 Antigen Non react (Non React) 02/04/22 14:37 Blood Type A POSITIVE 02/13/22 09:41 Antibody Screen Negative 02/13/22 09:41 Crossmatch See Detail 02/13/22 09:41 Microbiology: Microbiology 02/04/22 14:37 Peripheral/Venous Blood Fungal Culture - Preliminary No Fungus Isolated At 2 weeks 02/04/22 14:37 Peripheral/Venous Blood Culture - Final NO GROWTH AFTER 5 DAYS 02/04/22 14:37 Peripheral/Venous Blood Fungal Culture - Preliminary No Fungus Isolated At 2 weeks Gastelum/IV: Voiding Method External Female Catheter Active Medications - Current Medications Current Medications: Generic Name Dose Route Start Last Admin Trade Name Freq PRN Reason Stop Dose Admin Acetaminophen 650 mg 02/01/22 00:57 02/19/22 12:08 Acetaminophen 325 Mg Tab PO 650 mg Q4H PRN Administration Pain MILD(1-3)/Fever >100.5/ROSADO Albuterol 2.5 mg 02/01/22 00:57 Albuterol 2.5 Mg/3 Ml Nebu IH Q3HRT PRN Shortness Of Breath Lipase/Protease/Amylase 1 each 02/02/22 08:08 Lipase 10,500/Protease 25,000/Amylase 43,750 (Units) Dr Cap FEEDTUBE PRN PRN For Clogged Feeding Tube Atorvastatin Calcium 20 mg 02/03/22 22:00 02/18/22 21:39 Atorvastatin 20 Mg Tab FEEDTUBE 20 mg QHS JAMIL Administration Clopidogrel Bisulfate 75 mg 02/19/22 10:00 02/19/22 09:53 Clopidogrel 75 Mg Tab FEEDTUBE 75 mg QDAY JAMIL Administration Dextrose 50 ml 02/02/22 08:00 02/14/22 18:10 Dextrose 50% In Water (25gm) 50 Ml Syringe IV 50 ml Q30MIN PRN Administration Hypoglycemia Protocol Famotidine 20 mg 02/04/22 10:00 02/19/22 09:53 Famotidine 20 Mg Tab FEEDTUBE 20 mg BID JAMIL Administration Fentanyl 50 mcg 02/12/22 10:11 02/19/22 08:33 Fentanyl 100 Mcg/2 Ml Inj IV 50 mcg Q2H PRN Administration VENT SYNCHRONY/AGITATION Hydrophilic Ointment 1 applic 02/01/22 18:52 02/17/22 13:52 Lip Therapy Vaseline TP 1 applic Q2HR PRN Administration Dry Lips Fentanyl Citrate 2,000 mcg in 100 mls @ 2.381 mls/hr 02/02/22 10:00 02/19/22 04:02 Fentanyl Drip Premix IV 0 mcg/kg/hr TITR JAMIL 0 mls/hr Titration Protocol 1 MCG/KG/HR Sodium Chloride 500 mls @ 5 mls/hr 02/04/22 03:00 02/19/22 09:51 Nacl 0.9% 500 Ml IV 5 mls/hr DIRECT JAMIL Administration Dextrose 1,000 mls @ 42 mls/hr 02/19/22 12:00 D5w IV DIRECT JAMIL Insulin Human Regular 0 units 02/02/22 18:00 02/19/22 11:55 Insulin Regular, Human 100 Units/1 Ml SUB-Q Not Given Q6H [facility] Protocol Metoclopramide HCl 5 mg 02/19/22 10:00 02/19/22 09:53 Metoclopramide 10 Mg/2 Ml Inj IV 02/19/22 18:01 5 mg Q8H JAMIL Administration Multi-Ingred Cream/Lotion/Oil/Oint 1 applic 02/01/22 18:52 Mineral Oil/Petrolatum, White Ophth Oint 3.5 Gm OU Q4HR PRN Dry Eye(s) Nitroglycerin 0.5 inch 02/11/22 14:00 02/19/22 06:13 Nitroglycerin 2% Oint 1 Gm TP 0.5 inch BIDNTG [facility] Administration Protocol Ondansetron HCl 4 mg 02/01/22 00:57 02/19/22 06:08 Ondansetron 4 Mg/2 Ml Inj IV 4 mg Q8H PRN Administration Nausea And Vomiting Prednisone 20 mg 02/20/22 10:00 Prednisone 20 Mg Tab FEEDTUBE 02/20/22 10:01 QDAY JAMIL Prednisone 10 mg 02/21/22 10:00 Prednisone 10 Mg Tab PO 02/21/22 10:01 QDAY JAMIL Prednisone 5 mg 02/22/22 10:00 Prednisone 5 Mg Tab FEEDTUBE 02/22/22 10:01 QDAY [facility] Quetiapine Fumarate 50 mg 02/19/22 22:00 Quetiapine 25 Mg Tab FEEDTUBE BID JAMIL Senna/Docusate Sodium 2 tab 02/19/22 22:00 Sennosides/Docusate Sodium 8.6/50 Mg Tab FEEDTUBE Q12H JAMIL Simple Syrup 15 ml 02/02/22 08:08 Simple Syrup 15 Ml FEEDTUBE PRN PRN Hypoglycemia Simple Syrup 30 ml 02/02/22 08:08 Simple Syrup 15 Ml FEEDTUBE PRN PRN Hypoglycemia Sodium Bicarbonate 325 mg 02/02/22 08:08 Sodium Bicarbonate 325 Mg Tab FEEDTUBE PRN PRN For Clogged Feeding Tube Sodium Chloride 10 ml 02/01/22 10:00 02/19/22 09:54 Sodium Chloride 0.9% 10 Ml Flush Syringe IV 10 ml BID JAMIL Administration Sodium Chloride 10 ml 02/01/22 00:57 02/09/22 05:59 Sodium Chloride 0.9% 10 Ml Flush Syringe IV 10 ml PRN PRN Administration LINE FLUSH Nutrition/Malnutrition Assess - Dietary Evaluation Nutrition/Malnutrition Findings: Nutrition Notes Start: 02/01/22 17:50 Freq: Status: Active Protocol: Document 02/13/22 10:51 JACQUELINE (Rec: 02/13/22 11:11 JACQUELINE [id number]) Nutrition Notes Initial or Follow up Assessment Current Diagnosis Diabetes,Sepsis,Respiratory Failure Other Pertinent Diagnosis s/p DKA, s/p PEA Arrest, Pneumonia, Pyuria, Pancytopenia, UTI, ... Current Diet TF-Glucerna 1.2 More[place] @ 55 ml/hr (since L 02/04). Labs/Tests 02/13: Na 146, CO2 38, BUN 25, Crea 0.4, Glu 235, Ca 8.0. Pertinent Medications 02/13: Lantus 20U, Humulin 6U, others nutritionally unremarkable. Height 5 ft 4 in Weight 48.8 kg [place] Body Weight (kg) 54.54 BMI 18.4 Weight change and time frame 2.3 Kg body weight gain reported in 1 week. Weight Status Underweight Subjective/Other Information RD consult for TF tolerance/ continuation. TF continues as prescribed, and well tolerated, according to RN notes. Pt remains on Mechanical Ventilation, O2 saturation @ 100%, according to Physical Assessment History notes. Pt remains incontinent, according to Physical Assessment History notes. Plans for extubation on 08 am, according to Progress notes. Percent of energy/protein needs met: Prescribed TF-Glucerna 1.2 [place] @ 55 ml/hr provides for energy/protein needs (1584 Kcal/79 g) during LOS, 97% Kcal; 100% AA. Burn Absent Trauma Absent GI Symptoms None Difficulty In Swallowing Food Allergy No Skin Integrity/Comment Unspecified area of concern. Current % PO Other Minimum of two criteria No Fluid Accumulation N/A Reduced Counsellors Strength N/A (non-severe) Protein-Calorie Malnutrition N\A #1 Nutrition Diagnosis Inadequate oral intake Diagnosis Progress(for reassessment Continues documentation) Is patient on ventilator? Yes Is Patient Ambulatory and/or Out of Bed No REE-([place]-confined to bed) 1262.676 Kcal/Kg value to use for calculation 34 Approximate Energy Requirements Using 1659 kcal/Kg Calculation Used for Recommendations Kcal/kg Additional Notes Protein: 1.2-2 g/Kg ABW; 56-93 g/day. Fluids: 1 ml/Kcal, or as per MD. Nutrition Intervention Nutrition Support: Continue TF-Glucerna 1.2 [place] @ 55 ml/hr. Flush: 250 ml water Q 4 hr while hypernatremia persists, resume to 100 ml when Na is WNL. Kcal 1,584 Protein (gm) 79 Carbohydrates (gm) 151 Fat (gm) 79 Fluid (mL) 1,063 Fiber (gm) 21 % RDI: 97% Kcal; 100% AA. Goal #1 Provide at least 75% of energy /protein needs through Enteral Feeding during LOS. Follow-Up By: 02/20/22 Additional Comments Continue monitoring TF tolerance, Mechanical Ventilation, Hypernatremia, and BM. <MELISSA WHITE - Last Filed: 02/20/22 07:42> Assessment and Plan Assessment and plan: I saw and evaluated the patient. I agree with the findings and the plan of care as documented in the Nurse Practitioner's~note, with the following corrections and additions. Hospitalist Physical - Constitutional Vitals: Temp Pulse Resp BP Pulse Ox 100.8 F H 108 H 25 H 120/80 100 02/20/22 04:00 02/20/22 05:00 02/20/22 05:00 02/20/22 05:00 02/20/22 05:00 HEART Score - HEART Score Troponin: Troponin T < 0.010 ng/mL (0.00-0.029) 02/03/22 16:15 Results - Labs CBC & Chem 7: 02/20/22 04:22 02/20/22 04:22 Labs: Laboratory Last Values WBC 19.1 K/mm3 (4.5-11.0) H 02/20/22 04:22 RBC 3.43 M/mm3 (3.65-5.03) L 02/20/22 04:22 Hgb 7.4 gm/dl (10.1-14.3) L 02/20/22 04:22 Hct 24.3 % (30.3-42.9) L 02/20/22 04:22 MCV 71 fl (79-97) L 02/20/22 04:22 MCH 22 pg (28-32) L 02/20/22 04:22 MCHC 31 % (30-34) 02/20/22 04:22 RDW 30.0 % (13.2-15.2) H 02/20/22 04:22 Plt Count 400 K/mm3 (140-440) 02/20/22 04:22 Lymph % (Auto) [employer]ingo Cashier 02/02/22 04:00 Add Manual Diff Complete 02/03/22 04:00 Total Counted 50 02/03/22 04:00 Seg Neutrophils % [place] Cashier 02/02/22 04:00 Seg Neuts % (Manual) 76.0 % (40.0-70.0) H 02/03/22 04:00 Band Neutrophils % 18.0 % 02/03/22 04:00 Lymphocytes % (Manual) 2.0 % (13.4-35.0) L 02/03/22 04:00 Reactive Lymphs % (Man) 0 % 02/03/22 04:00 Monocytes % (Manual) 4.0 % (0.0-7.3) 02/03/22 04:00 Eosinophils % (Manual) 0 % (0.0-4.3) 02/03/22 04:00 Basophils % (Manual) 0 % (0.0-1.8) 02/03/22 04:00 Metamyelocytes % 0 % 02/03/22 04:00 Myelocytes % 0 % 02/03/22 04:00 Promyelocytes % 0 % 02/03/22 04:00 Blast Cells % 0 % 02/03/22 04:00 Nucleated RBC % 4.0 % (0.0-0.9) H 02/03/22 04:00 Seg Neutrophils # Man 2.8 K/mm3 (1.8-7.7) 02/03/22 04:00 Band Neutrophils # 0.7 K/mm3 02/03/22 04:00 Lymphocytes # (Manual) 0.1 K/mm3 (1.2-5.4) L 02/03/22 04:00 Abs React Lymphs (Man) 0.0 K/mm3 02/03/22 04:00 Monocytes # (Manual) 0.1 K/mm3 (0.0-0.8) 02/03/22 04:00 Eosinophils # (Manual) 0.0 K/mm3 (0.0-0.4) 02/03/22 04:00 Basophils # (Manual) 0.0 K/mm3 (0.0-0.1) 02/03/22 04:00 Metamyelocytes # 0.0 K/mm3 02/03/22 04:00 Myelocytes # 0.0 K/mm3 02/03/22 04:00 Promyelocytes # 0.0 K/mm3 02/03/22 04:00 Blast Cells # 0.0 K/mm3 02/03/22 04:00 WBC Morphology Not Reportable 02/03/22 04:00 Hypersegmented Neuts Not Reportable 02/03/22 04:00 Hyposegmented Neuts Not Reportable 02/03/22 04:00 Hypogranular Neuts Not Reportable 02/03/22 04:00 Smudge Cells Not Reportable 02/03/22 04:00 Toxic Granulation Not Reportable 02/03/22 04:00 Toxic Vacuolation Not Reportable 02/03/22 04:00 Dohle Bodies Few 02/03/22 04:00 Pelger-Huet Anomaly Not Reportable 02/03/22 04:00 Sung Rods Not Reportable 02/03/22 04:00 Platelet Estimate Consistent w auto 02/03/22 04:00 Clumped Platelets Not Reportable 02/03/22 04:00 Plt Clumps, EDTA Not Reportable 02/03/22 04:00 Large Platelets Not Reportable 02/03/22 04:00 Giant Platelets Not Reportable 02/03/22 04:00 Platelet Satelliting Not Reportable 02/03/22 04:00 Plt Morphology Comment Not Reportable 02/03/22 04:00 RBC Morphology Not Reportable 02/03/22 04:00 Dimorphic RBCs Not Reportable 02/03/22 04:00 Polychromasia Not Reportable 02/03/22 04:00 Hypochromasia 3+ 02/03/22 04:00 Poikilocytosis 2+ 02/03/22 04:00 Anisocytosis 1+ 02/03/22 04:00 Microcytosis 2+ 02/03/22 04:00 Macrocytosis Not Reportable 02/03/22 04:00 Spherocytes Not Reportable 02/03/22 04:00 Pappenheimer Bodies Not Reportable 02/03/22 04:00 Sickle Cells Not Reportable 02/03/22 04:00 Target Cells 1+ 02/03/22 04:00 Tear Drop Cells Few 02/03/22 04:00 Ovalocytes Few 02/03/22 04:00 Helmet Cells Not Reportable 02/03/22 04:00 [place] Bodies Not Reportable 02/03/22 04:00 [place] Rings Not Reportable 02/03/22 04:00 Lesly Cells 1+ 02/03/22 04:00 Bite Cells Not Reportable 02/03/22 04:00 Crenated Cell Not Reportable 02/03/22 04:00 Elliptocytes Few 02/03/22 04:00 Acanthocytes (Spur) Not Reportable 02/03/22 04:00 Rouleaux Not Reportable 02/03/22 04:00 Hemoglobin C Crystals Not Reportable 02/03/22 04:00 Schistocytes Rare 02/03/22 04:00 Malaria parasites Not Reportable 02/03/22 04:00 Percent Retic 0.65 % (0.78-2.58) L 02/08/22 03:55 Sven Bodies Not Reportable 02/03/22 04:00 Hem Pathologist Commnt No 02/03/22 04:00 PT 13.7 Sec. (12.2-14.9) 02/18/22 04:00 INR 0.95 (0.87-1.13) 02/18/22 04:00 APTT 29.5 Sec. (24.2-36.6) 02/16/22 04:36 Fibrinogen 795 mg/dl (211-480) H 02/05/22 08:48 ABG pH 7.463 pH Units (7.350-7.450) H 02/17/22 05:06 POC ABG pCO2 37.3 mmHg (32.0-48.0) 02/02/22 04:49 ABG pCO2 46.8 mm Hg 02/17/22 05:06 POC ABG pO2 79.9 mmHg (83-108) L 02/02/22 04:49 ABG pO2 113.6 mm Hg (80.0-90.0) H 02/17/22 05:06 POC ABG HCO3 30.3 02/02/22 04:49 ABG HCO3 32.8 mmol/L (20.0-26.0) H 02/17/22 05:06 ABG O2 Saturation 98.2 % (95.0-99.0) 02/17/22 05:06 ABG O2 Content 11.0 (0.0-44) 02/17/22 05:06 POC ABG Base Excess 7.1 02/02/22 04:49 ABG Base Excess 8.1 mmol/L (-2.0-3.0) H 02/17/22 05:06 ABG Hemoglobin 8.0 gm/dl (12.0-16.0) L 02/17/22 05:06 ABG Oxyhemoglobin 96.0 (94-98) 02/02/22 04:49 ABG Carboxyhemoglobin 1.7 % (0.0-5.0) 02/17/22 05:06 ABG Methemoglobin 0.5 % (0.0-1.5) 02/17/22 05:06 ABG Sodium Not Reportable 02/02/22 04:49 ABG Potassium Not Reportable 02/02/22 04:49 ABG Chloride Not Reportable 02/02/22 04:49 ABG Glucose Not Reportable 02/02/22 04:49 Oxyhemoglobin 96.0 % (95.0-99.0) 02/17/22 05:06 Carboxyhemoglobin 0.2 (0.5-1.5) L 02/02/22 04:49 FiO2 30 % 02/17/22 05:06 FiO2 % 60.0 02/02/22 04:49 Sodium 140 mmol/L (137-145) 02/20/22 04:22 Potassium 3.3 mmol/L (3.6-5.0) L D 02/20/22 04:22 Chloride 103.8 mmol/L (98-107) 02/20/22 04:22 Carbon Dioxide 25 mmol/L (22-30) 02/20/22 04:22 Anion Gap 15 mmol/L 02/20/22 04:22 BUN 8 mg/dL (7-17) 02/20/22 04:22 Creatinine 0.3 mg/dL (0.6-1.2) L 02/20/22 04:22 Estimated GFR > 60 ml/min 02/20/22 04:22 BUN/Creatinine Ratio 27 % 02/20/22 04:22 Glucose 223 mg/dL (65-100) H 02/20/22 04:22 POC Glucose 195 mg/dL (70-105) H 02/20/22 06:08 Hemoglobin A1c 11.1 % (4-6) H 02/01/22 12:54 Lactic Acid 2.50 mmol/L (0.7-2.0) H* 02/06/22 11:50 Calcium 8.3 mg/dL (8.4-10.2) L 02/20/22 04:22 Phosphorus 3.90 mg/dL (2.5-4.5) 02/15/22 09:12 Magnesium 2.20 mg/dL (1.7-2.3) 02/15/22 09:12 Total Bilirubin 0.50 mg/dL (0.1-1.2) 02/17/22 05:00 Direct Bilirubin < 0.2 mg/dL (0-0.2) 02/13/22 04:00 Indirect Bilirubin 0.1 mg/dL 02/13/22 04:00 AST 38 units/L (5-40) 02/17/22 05:00 ALT 28 units/L (7-56) 02/17/22 05:00 Alkaline Phosphatase 102 units/L (35-129) 02/17/22 05:00 Lactate Dehydrogenase 879 units/L (91-180) H 02/05/22 04:40 Troponin T < 0.010 ng/mL (0.00-0.029) 02/03/22 16:15 Total Protein 5.4 g/dL (6.3-8.2) L 02/17/22 05:00 Albumin 2.5 g/dL (3.9-5) L 02/17/22 05:00 Albumin/Globulin Ratio 0.9 % 02/17/22 05:00 Arterial Blood Glucose Not Reportable 02/02/22 04:49 Urine Color Straw (Yellow) 02/19/22 18:15 Urine Turbidity Clear (Clear) 02/19/22 18:15 Urine pH 8.0 (5.0-7.0) H 02/19/22 18:15 Ur Specific [place] 1.000 (1.003-1.030) L 02/19/22 18:15 Urine Protein 30 mg/dl mg/dL (Negative) 02/19/22 18:15 Urine Glucose (UA) Negative mg/dL (Negative) 02/19/22 18:15 Urine Ketones 5 mg/dL (Negative) 02/19/22 18:15 Urine Blood 1+ (Negative) 02/19/22 18:15 Urine Nitrite Negative (Negative) 02/19/22 18:15 Ur Reducing Substances Not Reportable 02/19/22 18:15 Urine Bilirubin Negative (Negative) 02/19/22 18:15 Urine Ictotest Not Reportable 02/19/22 18:15 Urine Urobilinogen Small mg/dL (<2.0) 02/19/22 18:15 Ur Leukocyte Esterase Negative (Negative) 02/19/22 18:15 Urine WBC (Auto) 2.0 /HPF (0.0-6.0) 02/19/22 18:15 Urine RBC (Auto) 3.0 /HPF (0.0-6.0) 02/19/22 18:15 U Epithel Cells (Auto) 1.0 /HPF (0-13.0) 02/04/22 09:15 Urine Bacteria (Auto) 1+ /HPF (Negative) 02/19/22 18:15 Urine Mucus Few /HPF 02/04/22 09:15 Urine Yeast (Budding) 2+ /HPF 02/04/22 09:15 Vancomycin Trough 28.6 ug/mL (5.0-20.0) H 02/05/22 Unknown Coronavirus (PCR) Negative (Negative) 02/02/22 10:44 SARS-CoV-2 (PCR) Negative (Negative) 02/15/22 09:39 HIV 1&2 Antibody Rapid Non react (Non React) 02/04/22 14:37 HIV P24 Antigen Non react (Non React) 02/04/22 14:37 Blood Type A POSITIVE 02/13/22 09:41 Antibody Screen Negative 02/13/22 09:41 Crossmatch See Detail 02/13/22 09:41 Microbiology: Microbiology 02/19/22 14:51 Peripheral/Venous Blood Culture - Preliminary Culture in Progress 02/19/22 14:51 Peripheral/Venous Blood Culture - Preliminary Culture in Progress Gastelum/IV: Voiding Method External Female Catheter Active Medications - Current Medications Current Medications: Generic Name Dose Route Start Last Admin Trade Name Freq PRN Reason Stop Dose Admin Acetaminophen 650 mg 02/01/22 00:57 02/19/22 12:08 Acetaminophen 325 Mg Tab PO 650 mg Q4H PRN Administration Pain MILD(1-3)/Fever >100.5/ROSADO Acetaminophen 650 mg 02/20/22 02:09 02/20/22 03:35 Acetaminophen 650 Mg Rect Supp SC 650 mg Q6H PRN Administration Fever >101 Albuterol 2.5 mg 02/01/22 00:57 Albuterol 2.5 Mg/3 Ml Nebu IH Q3HRT PRN Shortness Of Breath Lipase/Protease/Amylase 1 each 02/02/22 08:08 Lipase 10,500/Protease 25,000/Amylase 43,750 (Units) Dr Cap FEEDTUBE PRN PRN For Clogged Feeding Tube Atorvastatin Calcium 20 mg 02/03/22 22:00 02/19/22 21:17 Atorvastatin 20 Mg Tab FEEDTUBE Not Given QHS JAMIL Clopidogrel Bisulfate 75 mg 02/19/22 10:00 02/19/22 09:53 Clopidogrel 75 Mg Tab FEEDTUBE 75 mg QDAY JAMIL Administration Dextrose 50 ml 02/02/22 08:00 02/14/22 18:10 Dextrose 50% In Water (25gm) 50 Ml Syringe IV 50 ml Q30MIN PRN Administration Hypoglycemia Protocol Famotidine 20 mg 02/04/22 10:00 02/19/22 21:17 Famotidine 20 Mg Tab FEEDTUBE Not Given BID JAMIL Fentanyl 50 mcg 02/12/22 10:11 02/19/22 08:33 Fentanyl 100 Mcg/2 Ml Inj IV 50 mcg Q2H PRN Administration VENT SYNCHRONY/AGITATION Hydrophilic Ointment 1 applic 02/01/22 18:52 02/17/22 13:52 Lip Therapy Vaseline TP 1 applic Q2HR PRN Administration Dry Lips Fentanyl Citrate 2,000 mcg in 100 mls @ 2.381 mls/hr 02/02/22 10:00 02/19/22 04:02 Fentanyl Drip Premix IV 0 mcg/kg/hr TITR JAMIL 0 mls/hr Titration Protocol 1 MCG/KG/HR Sodium Chloride 500 mls @ 5 mls/hr 02/04/22 03:00 02/19/22 09:51 Nacl 0.9% 500 Ml IV 5 mls/hr DIRECT JAMIL Administration Dextrose 1,000 mls @ 42 mls/hr 02/19/22 13:00 02/19/22 13:20 D10w IV 42 mls/hr DIRECT JAMIL Administration Insulin Human Regular 0 units 07/30/22 18:00 02/20/22 06:27 Insulin Regular, Human 100 Units/1 Ml SUB-Q 3 units Q6H [facility] Administration Protocol Multi-Ingred Cream/Lotion/Oil/Oint 1 applic 02/01/22 18:52 Mineral Oil/Petrolatum, White Ophth Oint 3.5 Gm OU Q4HR PRN Dry Eye(s) Nitroglycerin 0.5 inch 02/11/22 14:00 02/20/22 06:28 Nitroglycerin 2% Oint 1 Gm TP 0.5 inch BIDNTG [facility] Administration Protocol Ondansetron HCl 4 mg 02/01/22 00:57 02/19/22 06:08 Ondansetron 4 Mg/2 Ml Inj IV 4 mg Q8H PRN Administration Nausea And Vomiting Prednisone 20 mg 02/20/22 10:00 Prednisone 20 Mg Tab FEEDTUBE 02/20/22 10:01 QDAY [facility] Prednisone 10 mg 02/21/22 10:00 Prednisone 10 Mg Tab PO 02/21/22 10:01 QDAY JAMIL Prednisone 5 mg 02/22/22 10:00 Prednisone 5 Mg Tab FEEDTUBE 02/22/22 10:01 QDAY JAMIL Quetiapine Fumarate 50 mg 02/19/22 22:00 02/19/22 21:17 Quetiapine 25 Mg Tab FEEDTUBE Not Given BID JAMIL Senna/Docusate Sodium 2 tab 02/19/22 22:00 02/19/22 21:17 Sennosides/Docusate Sodium 8.6/50 Mg Tab FEEDTUBE Not Given Q12H JAMIL Simple Syrup 15 ml 02/02/22 08:08 Simple Syrup 15 Ml FEEDTUBE PRN PRN Hypoglycemia Simple Syrup 30 ml 02/02/22 08:08 Simple Syrup 15 Ml FEEDTUBE PRN PRN Hypoglycemia Sodium Bicarbonate 325 mg 02/02/22 08:08 Sodium Bicarbonate 325 Mg Tab FEEDTUBE PRN PRN For Clogged Feeding Tube Sodium Chloride 10 ml 02/01/22 10:00 02/19/22 21:18 Sodium Chloride 0.9% 10 Ml Flush Syringe IV 10 ml BID JAMIL Administration Sodium Chloride 10 ml 02/01/22 00:57 02/09/22 05:59 Sodium Chloride 0.9% 10 Ml Flush Syringe IV 10 ml PRN PRN Administration LINE FLUSH Nutrition/Malnutrition Assess - Dietary Evaluation Nutrition/Malnutrition Findings: Nutrition Notes Start: 02/01/22 17:50 Freq: Status: Active Protocol: Document 02/19/22 14:47 JACQUELINE (Rec: 02/19/22 15:20 JACQUELINE [id number]) Nutrition Notes Need for Assessment generated from: Low BMI Initial or Follow up Reassessment Current Diagnosis Diabetes,Sepsis,Respiratory Failure Other Pertinent Diagnosis s/p DKA, s/p PEA Arrest, Pneumonia, Pyuria, Pancytopenia, UTI, ... Current Diet TF-Glucerna 1.2 [place] @ 55 ml/hr (since D 02/18). Labs/Tests 02/19: Crea 0.3, Glu 143. Pertinent Medications 02/19: D10w @ 42 ml/hr, others nutritionally unremarkable. Height 5 ft 4 in Weight 47 kg [place] Body Weight (kg) 54.54 BMI 17.7 Weight change and time frame 1.8 Kg body weight loss in 1 week reported. Weight Status Underweight Subjective/Other Information RD consult for routine F/U on TF tolerance/continuation, and Low BMI assessment. TF continues as prescribed, but currently on hold, due to vomiting episode after PEG placement, according to RN notes. Pt remains on Mechanical Ventilation, O2 saturation @ 100%, according to Physical Assessment History notes. PEG-tube placement on 02/18, well tolerated, according to Operative Report notes. Pt's Low BMI seems to correspond to a natural body composition, and not related to a sudden loss of body weight nor chronic malnutrition, since no signs of concern were mentioned in the Physical Assessment History or the Progress notes. Percent of energy/protein needs met: Prescribed TF-Glucerna 1.2 [place] @ 55 ml/hr provides for energy/protein needs (1584 Kcal/79 g) during LOS, 97% Kcal; 100% AA. Burn Absent Trauma Absent GI Symptoms Vomiting Difficulty In Swallowing Food Allergy No Skin Integrity/Comment Unspecified area of concern. Current % PO Other Minimum of two criteria No Fluid Accumulation N/A Reduced Counsellors Strength N/A (non-severe) Protein-Calorie Malnutrition N\A #1 Nutrition Diagnosis Inadequate oral intake Diagnosis Progress(for reassessment Continues documentation) Is patient on ventilator? Yes Is Patient Ambulatory and/or Out of Bed No REE-([place]or-confined to bed) 1241.100 Kcal/Kg value to use for calculation 34 Approximate Energy Requirements Using 1598 kcal/Kg Calculation Used for Recommendations Kcal/kg Additional Notes Protein: 1.2-2 g/Kg ABW; 56-93 g/day. Fluids: 1 ml/Kcal, or as per MD. Nutrition Intervention Nutrition Support: Continue TF-Glucerna 1.2 [place] @ 55 ml/hr. Flush: 100 ml water Q 4 hr, or as per MD. Kcal 1,584 Protein (gm) 79 Carbohydrates (gm) 151 Fat (gm) 79 Fluid (mL) 1,063 Fiber (gm) 21 % RDI: 97% Kcal; 100% AA. Goal #1 Provide at least 75% of energy /protein needs through Enteral Feeding during LOS. Follow-Up By: 03/05/22 Additional Comments Continue monitoring TF tolerance, Mechanical Ventilation, and BM.
[2022-02-19] MEDS ORDERED: DEXTROSE 10% IN WATER 1,000 ML IV SCH (13:00)
--- NOTE | 2022-02-19 13:52 | XRay Report ---
ABDOMEN 1 VIEW(S) INDICATION / CLINICAL INFORMATION: Projectile Vomitting. COMPARISON: 02/14/2022 FINDINGS: TUBES / LINES: Nasogastric tube has been removed. A peg tube has been inserted which overlies the gas tric shadow. BOWEL GAS PATTERN: No significant abnormality. FREE AIR / EXTRALUMINAL GAS: None seen. ADDITIONAL FINDINGS: There are prominent interstitial markings at the lung bases IMPRESSION: No acute abnormality is appreciated. Signer Name: Randall Poole Jr, MD Signed: 02/19/2022 1:47 PM Workstation Name: [id number]
--- NOTE | 2022-02-19 16:33 | Progress Note ---
Assessment and Plan 61 yo F s/p percutaneous tracheostomy, fiberoptic bronchoscopy, PEG tube placement, POD 1 1. VDRF Vent: FIO2 30%, PEEP 6 Pt had vomiting this am. +BM. KUB unremarkable. Febrile. Plan: 1. Vent management per ICU team 2. Trach care 3. Keep PEG to gravity drainage for today -> resume TF at 10c/hr tomorrow and slowly adv to goal 4. Fevers -? etiology. Was having intermittent fever before surgery yesterday and had persistent leukocytosis. ID on board 5. DVT ppx 6. CTA A/P pending per vascular - will be a good way to eval bowel as well - will follow up results Thank you, please call with questions. Evaluation and treatment of this patient was during the time of the national and state emergency arising from COVID19 coronavirus pandemic. Treatment and procedures performed meet the current and available best practice and guidelines for patient during the COVID pandemic. Subjective Date of service: 02/19/22 Narrative: Pt seen and examined. Had large BM today. Vomiting early this am. +Fever Tm 102. Objective Vital Signs - 12hr 02/19/22 02/19/22 02/19/22 05:00 06:00 06:13 Temperature Pulse Rate 118 H 130 H 124 H Pulse Rate [ From Monitor] Respiratory 29 H 25 H Rate Blood Pressure 136/93 135/100 135/93 O2 Sat by Pulse 98 98 Oximetry O2 Sat by Pulse Oximetry [ Assessment] 02/19/22 02/19/22 02/19/22 07:00 07:24 08:00 Temperature 99.3 F 99.6 F Pulse Rate 131 H 135 H Pulse Rate [ 124 H From Monitor] Respiratory 28 H 14 Rate Blood Pressure 135/100 151/92 O2 Sat by Pulse 100 100 Oximetry O2 Sat by Pulse Oximetry [ Assessment] 02/19/22 02/19/22 02/19/22 08:39 09:00 10:00 Temperature Pulse Rate 136 H 142 H 134 H Pulse Rate [ From Monitor] Respiratory 25 H 22 Rate Blood Pressure 151/92 142/91 128/83 O2 Sat by Pulse 97 98 99 Oximetry O2 Sat by Pulse Oximetry [ Assessment] 02/19/22 02/19/22 02/19/22 11:00 12:00 12:05 Temperature 102 F H 102.0 F H Pulse Rate 128 H 128 H Pulse Rate [ 124 H From Monitor] Respiratory 22 22 Rate Blood Pressure 118/77 123/76 O2 Sat by Pulse 100 100 Oximetry O2 Sat by Pulse Oximetry [ Assessment] 02/19/22 02/19/22 02/19/22 12:07 12:47 13:00 Temperature Pulse Rate 126 H 129 H Pulse Rate [ From Monitor] Respiratory 24 Rate Blood Pressure 123/76 114/76 O2 Sat by Pulse 100 100 Oximetry O2 Sat by Pulse 96 Oximetry [ Assessment] 02/19/22 14:00 Temperature Pulse Rate 127 H Pulse Rate [ From Monitor] Respiratory 22 Rate Blood Pressure 114/74 O2 Sat by Pulse 100 Oximetry O2 Sat by Pulse Oximetry [ Assessment] - General physical appearance Narrative Exam: Gen.: Arousable on vent but does not follow commands. On sedation. No apparent distress ENT: Trachea midline. Trach in place with dressing c/d/i. No swelling, hematoma, bleeding CV: S1, S2 present Respiratory: No audible wheezes Abdomen: Soft, mildly distended, nontender. Midline upper abdominal incisional hernia, soft and reducible. Multiple well healed surgical scars - midline/exlap and lap. PEG in place with bumper at 2 cm at skin, without tension or bleeding. Light green gastric fluid aspirated. No rebound, rigidity, guarding Extremities: No clubbing, cyanosis, edema - Labs 02/19/22 06:10 02/19/22 06:10 Diabetes panel 02/19/22 Range/Units 06:10 Sodium 142 (137-145) mmol/L Potassium 4.2 (3.6-5.0) mmol/L Chloride 103.8 (98-107) mmol/L Carbon Dioxide 29 (22-30) mmol/L BUN 16 (7-17) mg/dL Creatinine 0.3 L (0.6-1.2) mg/dL Glucose 143 H (65-100) mg/dL Calcium 8.6 (8.4-10.2) mg/dL Calcium panel 02/19/22 Range/Units 06:10 Calcium 8.6 (8.4-10.2) mg/dL Pituitary panel 02/19/22 Range/Units 06:10 Sodium 142 (137-145) mmol/L Potassium 4.2 (3.6-5.0) mmol/L Chloride 103.8 (98-107) mmol/L Carbon Dioxide 29 (22-30) mmol/L BUN 16 (7-17) mg/dL Creatinine 0.3 L (0.6-1.2) mg/dL Glucose 143 H (65-100) mg/dL Calcium 8.6 (8.4-10.2) mg/dL Adrenal panel 02/19/22 Range/Units 06:10 Sodium 142 (137-145) mmol/L Potassium 4.2 (3.6-5.0) mmol/L Chloride 103.8 (98-107) mmol/L Carbon Dioxide 29 (22-30) mmol/L BUN 16 (7-17) mg/dL Creatinine 0.3 L (0.6-1.2) mg/dL Glucose 143 H (65-100) mg/dL Calcium 8.6 (8.4-10.2) mg/dL
[2022-02-19 18:34] LABS: Bacteria,Urine 1+ /HPF (Negative)
[2022-02-19 18:48] LABS: Bilirubin,Urine Negative (Negative); Color,Urine Straw (Yellow)
[2022-02-19 18:49] LABS: Blood,Urine 1+ (Negative); Urobilinogen,Urine SMALL mg/dL (<2.0)
--- NOTE | 2022-02-19 19:42 | Cat Scan Report ---
CTA CHEST, ABDOMEN, PELVIS, AND LOWER EXTREMITIES INDICATION: PVD of LUE, BLE - evaluate for thrombus 100ML OF [id number]. TECHNIQUE: Axial CT images were obtained through the chest, abdomen, pelvis and lower extremities after injectio n of IV contrast. 3 plane MIP reconstructions were produced. All CT scans at this location are perfor med using CT dose reduction for ALARA by means of automated exposure control. COMPARISON: CT abdomen/pelvis 3 days prior. FINDINGS: CTA CHEST: Heart: No significant abnormality. Coronary artery : Absent -- None. Thoracic aorta: No significant abnormality. Included grade vessels and subclavian/axillary arteries a re unremarkable. Pulmonary arteries: Minimal, somewhat linear nonocclusive PTE is seen within the right lower lobe pul monary artery (as seen on axial series 2 image 112). ADDITIONAL CHEST FINDINGS: There are a few borderline-enlarged mediastinal nodes. Chest wall edema is noted. Tracheostomy is in satisfactory position. There are predominantly peripheral pulmonary opacit ies which may be due to scarring/fibrosis. Left upper lobe dependent airspace disease may be due to p neumonia. COPD changes are noted. CTA ABDOMEN: Abdominal Aorta: Carotic calcification distally. Celiac Artery: No significant abnormality. Superior Mesenteric Artery: No significant abnormality. Right Renal Artery: No significant abnormality. Left Renal Artery: No significant abnormality. Inferior Mesenteric Artery: No significant abnormality. CTA PELVIS: RIGHT: Common Iliac Artery: No significant abnormality. Internal Iliac Artery: Moderate atherosclerotic calcification. External Iliac Artery: No significant abnormality. LEFT: Common Iliac Artery: No significant abnormality. Internal Iliac Artery: No significant abnormality. External Iliac Artery: No significant abnormality. CTA LOWER EXTREMITIES: RIGHT LOWER EXTREMITY: Common Femoral Artery: Atherosclerotic disease without significant stenosis. Superficial Femoral Artery: No significant abnormality. Profunda Femoral Artery: No significant abnormality. Popliteal Artery: No significant abnormality. Anterior Tibial Artery: No flow is seen in the very distal portion. Tibioperoneal Trunk: No significant abnormality. Posterior Tibial Artery: No significant abnormality. Peroneal Artery: No flow is seen distally. Ankle runoff: 1 vessel. LEFT LOWER EXTREMITY: Common Femoral Artery: Mild atherosclerotic disease without significant stenosis. Superficial Femoral Artery: No significant abnormality. Profunda Femoral Artery: No significant abnormality. Popliteal Artery: No significant abnormality. Anterior Tibial Artery: Occluded proximally. Tibioperoneal Trunk: No significant abnormality. Posterior Tibial Artery: No significant abnormality. Peroneal Artery: No significant abnormality. Ankle runoff: 2 vessel. NONTARGET STRUCTURES: ABDOMEN:No acute solid organ abnormality or bowel obstruction. Anasarca is noted. PELVIS:Constipation with large amount of fecal material at the rectum. LOWER EXTREMITIES:Lower extremity edema is noted bilaterally. SKELETAL: No significant abnormality. ADDITIONAL FINDINGS: None. IMPRESSION: 1. Small nonocclusive somewhat linear PTE distal right lower lobe pulmonary artery. 2. One-vessel runoff to the right ankle; no flow is seen within the very distal anterior right tibial artery and right peroneal artery. 3. Two-vessel runoff to the left ankle; no flow is seen within the right anterior tibial artery. 4. No significant atherosclerotic calcification is seen. There are [id number] atherosclerotic c hanges as described above. 5. Chronic bilateral pulmonary changes. There appears to be airspace disease in the posterior left up per lobe which could be due to superimposed pneumonia. 5. Additional incidental findings as above. CRITICAL RESULT: PET Time of Discovery (DIRECTOR BUSINESS DEVELOPMENT/CDT): 6:20 PM Time of Communication (DIRECTOR BUSINESS DEVELOPMENT/CDT): 6:35 PM Licensed Practitioner Receiving Report: CHRIS Gil CCU Read-Back Performed: Yes. Signer Name: Joe Parry MD Signed: 02/19/2022 7:37 PM Workstation Name: [id number]
--- NOTE | 2022-02-19 19:42 | Cat Scan Report ---
CTA CHEST, ABDOMEN, PELVIS, AND LOWER EXTREMITIES INDICATION: PVD of LUE, BLE - evaluate for thrombus 100ML OF [id number]. TECHNIQUE: Axial CT images were obtained through the chest, abdomen, pelvis and lower extremities after injectio n of IV contrast. 3 plane MIP reconstructions were produced. All CT scans at this location are perfor med using CT dose reduction for ALARA by means of automated exposure control. COMPARISON: CT abdomen/pelvis 3 days prior. FINDINGS: CTA CHEST: Heart: No significant abnormality. Coronary artery : Absent -- None. Thoracic aorta: No significant abnormality. Included grade vessels and subclavian/axillary arteries a re unremarkable. Pulmonary arteries: Minimal, somewhat linear nonocclusive PTE is seen within the right lower lobe pul monary artery (as seen on axial series 2 image 112). ADDITIONAL CHEST FINDINGS: There are a few borderline-enlarged mediastinal nodes. Chest wall edema is noted. Tracheostomy is in satisfactory position. There are predominantly peripheral pulmonary opacit ies which may be due to scarring/fibrosis. Left upper lobe dependent airspace disease may be due to p neumonia. COPD changes are noted. CTA ABDOMEN: Abdominal Aorta: Carotic calcification distally. Celiac Artery: No significant abnormality. Superior Mesenteric Artery: No significant abnormality. Right Renal Artery: No significant abnormality. Left Renal Artery: No significant abnormality. Inferior Mesenteric Artery: No significant abnormality. CTA PELVIS: RIGHT: Common Iliac Artery: No significant abnormality. Internal Iliac Artery: Moderate atherosclerotic calcification. External Iliac Artery: No significant abnormality. LEFT: Common Iliac Artery: No significant abnormality. Internal Iliac Artery: No significant abnormality. External Iliac Artery: No significant abnormality. CTA LOWER EXTREMITIES: RIGHT LOWER EXTREMITY: Common Femoral Artery: Atherosclerotic disease without significant stenosis. Superficial Femoral Artery: No significant abnormality. Profunda Femoral Artery: No significant abnormality. Popliteal Artery: No significant abnormality. Anterior Tibial Artery: No flow is seen in the very distal portion. Tibioperoneal Trunk: No significant abnormality. Posterior Tibial Artery: No significant abnormality. Peroneal Artery: No flow is seen distally. Ankle runoff: 1 vessel. LEFT LOWER EXTREMITY: Common Femoral Artery: Mild atherosclerotic disease without significant stenosis. Superficial Femoral Artery: No significant abnormality. Profunda Femoral Artery: No significant abnormality. Popliteal Artery: No significant abnormality. Anterior Tibial Artery: Occluded proximally. Tibioperoneal Trunk: No significant abnormality. Posterior Tibial Artery: No significant abnormality. Peroneal Artery: No significant abnormality. Ankle runoff: 2 vessel. NONTARGET STRUCTURES: ABDOMEN:No acute solid organ abnormality or bowel obstruction. Anasarca is noted. PELVIS:Constipation with large amount of fecal material at the rectum. LOWER EXTREMITIES:Lower extremity edema is noted bilaterally. SKELETAL: No significant abnormality. ADDITIONAL FINDINGS: None. IMPRESSION: 1. Small nonocclusive somewhat linear PTE distal right lower lobe pulmonary artery. 2. One-vessel runoff to the right ankle; no flow is seen within the very distal anterior right tibial artery and right peroneal artery. 3. Two-vessel runoff to the left ankle; no flow is seen within the right anterior tibial artery. 4. No significant atherosclerotic calcification is seen. There are [id number] atherosclerotic c hanges as described above. 5. Chronic bilateral pulmonary changes. There appears to be airspace disease in the posterior left up per lobe which could be due to superimposed pneumonia. 5. Additional incidental findings as above. CRITICAL RESULT: PET Time of Discovery (CENTRAL OFFICE SUPERVISOR/CDT): 6:20 PM Time of Communication (CENTRAL OFFICE SUPERVISOR/CDT): 6:35 PM Licensed Practitioner Receiving Report: CHRIS Gil CCU Read-Back Performed: Yes. Signer Name: Joe Parry MD Signed: 02/19/2022 7:37 PM Workstation Name: [id number]
--- NOTE | 2022-02-19 21:03 | Event Note ---
Date: 02/19/[address] angio of the abdomen, pelvis, and runoff today. Contacted for incidental finding of subsegmental nonocclusive isolated pulmonary embolism. Ordered US of the LE. Not sure if patient is candidate for anticoagulation. Nurse will contact the hospitalist and intensive care physician.
[2022-02-19] MEDS: SENNOSIDES/DOCUSATE SODIUM 8.6/50 MG TAB FEEDTUBE SCH (21:17)
[2022-02-19] MEDS: QUEtiapine 25 MG TAB FEEDTUBE SCH (21:17)
[2022-02-20] MEDS: ACETAMINOPHEN 650 MG RECT SUPP PR PRN (03:35)
[2022-02-20 05:37] LABS: Hematocrit 24.3 % (30.3-42.9); Hemoglobin 7.4 gm/dl (10.1-14.3); Mean Corpuscular HGB Conc 31 % (30-34); Mean Corpuscular Volume 71 fl (79-97); Platelet Count 400 K/mm3 (140-440); Red Blood Count 3.43 M/mm3 (3.65-5.03)
[2022-02-20 06:01] LABS: Blood Urea Nitrogen 8 mg/dL (7-17); Calcium 8.3 mg/dL (8.4-10.2); Hemolysis Index 0
[2022-02-20 06:04] LABS: BUN/Creatinine Ratio 27
[2022-02-20] MEDS: INSULIN REGULAR, HUMAN 100 UNITS/1 ML SUB-Q SCH ×3 (06:27→18:41)
[2022-02-20] MEDS: NITROGLYCERIN 2% OINT 1 GM TP SCH ×2 (06:28→13:37)
[2022-02-20] MEDS: fentaNYL 100 MCG/2 ML INJ IV PRN (09:41)
[2022-02-20] MEDS: SENNOSIDES/DOCUSATE SODIUM 8.6/50 MG TAB FEEDTUBE SCH ×2 (09:42→21:01)
[2022-02-20] MEDS: QUEtiapine 25 MG TAB FEEDTUBE SCH ×2 (09:42→21:02)
[2022-02-20] MEDS: CLOPIDOGREL 75 MG TAB FEEDTUBE SCH (09:42)
[2022-02-20] MEDS: FAMOTIDINE 20 MG TAB FEEDTUBE SCH ×2 (09:44→21:02)
[2022-02-20] MEDS ORDERED: predniSONE 20 MG TAB FEEDTUBE SCH (10:00)
[2022-02-20] MEDS ORDERED: POTASSIUM CHLORIDE 20 MEQ PACKET FEEDTUBE SCH (10:00)
[2022-02-20] MEDS ORDERED: ENOXAPARIN 40 MG/0.4 ML INJ SUB-Q SCH (10:00)
--- NOTE | 2022-02-20 11:03 | Progress Note ---
Assessment and Plan 02/20/22: Now that DVT found, will anticoagulate. Increased lovenox to BID, but will discuss with pharmacy to make sure these are accurate doses. Follow up blood cultures as patient is having intermittent fevers now. Sats in the low 90 's when I was in the room, but after suctioning, increased back to the mid 90's. Will monitor. May need albumin lasix chaser again. Continue steroid taper. PSV trials. Guarded prognosis. CM working on placement. 02/19/22: Will obtain KUB now. Continue to hold tube feeds. Will speak with surgery about possible causes of vomiting. May need to restart sedation. If spikes temp again will obtain cultures but most likely this is post op fever. Vent settings have not changed. Guarded prognosis. 02/18/22: Start weaning from vent tomorrow. Use peg when surgery approves. Hopeful dispostion to LTACH soon. 02/17/22: Trach and peg tomorrow. NPO after midnight tonight. Steroid taper. Will attempt to touch base with family again about consent for Picc so that IJ can be removed. If not able to do this, will need to be changed over a wire. 02/16/22: Trach and peg on Friday. Continue sedation. Will check CMP tomorrow. Will give a one time dose of albumin with lasix chaser. oral steroid taper has been ordered. need to discontinue central line and replace with picc for more group home usage. 02/15/22: Trach and peg soon. Continue sedation and supportive care. 02/14/22: Today will plan to extubate. if fails will need trach. Reviewed chart and saw vascular recs. Will wean steroids again either tomorrow or Friday. 02/13/22: Drop steroids to 50q12 today. Currently on PSV 14/6. Sedatioin off. Tentatively plan for possible extubation tomorrow morning. 02/12/22: Will wean steroids more tomorrow. Drop PEEP to 6 today and attempt PSV this afternoon. If tolerates will leave on PSV until end of day shift and then rest on rate overnight. Hopeful to leave off sedation and control with PRN pushes. Repeat PSV tomorrow consider ABG, pending on how she looks clinically. Hopeful for conventional ventilation but family is on board if trach and peg are required. 02/11/22: Will drop steroids to 50q8. Will drop PEEP to 8. Once PEEP at 6 , then consult surgery fro trach and peg unless off sedation mental state is better and she can tolerate PSV to assess if able for conventional extubation. Prognosis still remains guarded but improved now that pulmonary status has improved. 02/08/22: Please do not attempt to wean PEEP unless it is compromising clinical state (breath stacking, auto peep, hypotension, etc). Patient is in full blown ARDS needs increased levels of PEEP to help with oxygenation. Now that BP is better, if no improvement would even consider increasing PEEP if needed. Discussed with RT today. Spoke with nursing and TRANSPORT TRUCK DRIVER about feet, will obtain arterial dopplers. Hopeful there is no occlusion as given her pancytopenia, not sure that she would be a candidate for anticoagulation. Reviewed [facility] as she was in [place] at least 3x prior to transfer here, twice during the month of January for DKA. She does have a diagnsosis of schizoaffective disorder. Could not find any meds for this. Will try some BID seroquel and see if this helps with mental state. Increases in sedation have not improved respiratory pattern. Patient did not get albumin and lasix last night but did get this am. Repeat CXR in the morning as well as ABG. If patient's alkalemia worsens would stop. Also given improvement in BP would start to wean stress dose steroids. She does have a diagnosis of HTN along with her diabetes and Dementia and Schizoaffective disorder. Also from reviewing the charts at [facility], patient is/was very noncompliant with diabetic regimen so some of her mental state could be vascular disease related to uncontrolled diabetes too. Overall prognosis is guarded. 02/07/22: Family meeting today, please see my event note. albumin and lasix again this morning and then again tonight. Continue steroids. May need insulin drip. Guarded prognosis. 02/06/22: Overall prognosis continues to worsen. She did respond to albumin and lasix with good urine output. Will give again tonight. Bronch results are negative and repeat cultures are negative. CXR continues to be consistent with ARDS. This could be AIP. Now on steroids so will see how she responds. Unfortunately I was not able to meet with the family today but plan to meet with them at 11 tomorrow. appreciate heme help. Given her response to steroids BP salazar, if this is truly acute interstitial pneumonitis, may consider pulse dose steroids. Will discuss with family risks of this as well. 02/05/22: Follow up bronch results. Appreciate ID assistance and changing of abx therapy. COntinue high PEEP and small TV. Ok with permissive hypercapnea as long as pH is >7.2. Follow up heme assessment. Has Kleib in tracheal aspirate. Follow up blood cultures. Will meet with family tomorrow. Overall prognosis is guarded to poor. 02/04/22: Repeat cultures this am while she is febrile. Bronched this am and wash taken from right middle lobe. Worsening CXR is likely related to the volume given yesterday. Will consult heme today as her numbers continue to worsen. Gram Negative Rods found in Tracheal aspirate from 02/01. Follow up speciation of this as well as bronch results. Will send for fungal cultures as well. Needs art line. Stop bob and change to vasopressin. Overall prognosis is very very guarded to poor. 02/03/22: Needs repeat culture with next fever spike. concern now that she is still spiking temps on broad spec abx. may need to broaden even more with antifungal but will discuss tomorrow with pharmacy tomorrow. pH is better but worsening hypoxemia. CXR shows bilateral infiltrates. Will consider bronch tomorrow for washing to be sent for culture. Consider Heme consult tomorrow. Echo was stable. Guarded to poor prognosis. Sugar is better today. 02/02/22: Wean Vasopressors as tolerated for maps >65. Check echo. Stop insulin therapy. Q1hour fSbs and cover with sliding scale. Repeat ABG later today to follow pH. May need some diamox later. Patient now neutropenic and thrombocytopenic, repeated CBC and still the same. may need to consider heme consult. For now continue broad spec abx therapy. prognosis is guarded to poor. 2 amps of NaBicarb pushed Started on Insulin drip Central line placement secondary to lack of access Aggressive volume resuscitation q1 hour fsbs and q6 hour BMPs for the next 36-48 hours Supplemental O2 Not a candidate for bipap currently given mental state so if her respiratory status deteriorates would need intubation. Guarded prognosis. Spoke with daughter briefly at bedside. She did not get off her cell phone so not able to have a full conversation with her about her mother. CCT 31 minutes. Subjective Date of service: 02/20/22 Principal diagnosis: DKA, s/p cardiopulmonary arrest Interval history: Found to have DVT this am on ultrasound and nonocclusive PE. Still tachy but now hypertensive this am. Eyes open but not following commands. Appreciate surgery Eval. KUB negative. Peg tube still on gravity but draining into burkett bag. Objective Vital Signs - 12hr 02/19/22 02/19/22 02/19/22 23:00 23:22 23:24 Temperature Pulse Rate 109 H 110 H Respiratory 20 20 Rate Blood Pressure 108/74 108/74 O2 Sat by Pulse 100 100 Oximetry O2 Sat by Pulse Oximetry [ Assessment] 02/20/22 02/20/22 02/20/22 00:00 01:00 02:00 Temperature 101.2 F H Pulse Rate 107 H 115 H 110 H Respiratory 20 24 15 Rate Blood Pressure 113/75 124/84 118/78 O2 Sat by Pulse 100 Oximetry O2 Sat by Pulse 100 Oximetry [ Assessment] 02/20/22 02/20/22 02/20/22 03:00 03:49 03:52 Temperature Pulse Rate 109 H 110 H Respiratory 21 Rate Blood Pressure 123/77 123/77 O2 Sat by Pulse 100 100 Oximetry O2 Sat by Pulse Oximetry [ Assessment] 02/20/22 02/20/22 02/20/22 04:00 05:00 06:00 Temperature 100.8 F H Pulse Rate 110 H 108 H 105 H Respiratory 20 25 H 18 Rate Blood Pressure 118/79 120/80 115/77 O2 Sat by Pulse 100 100 100 Oximetry O2 Sat by Pulse Oximetry [ Assessment] 02/20/22 02/20/22 02/20/22 07:00 08:00 08:35 Temperature Pulse Rate 102 H 104 H 116 H Respiratory 20 24 29 H Rate Blood Pressure 122/79 130/83 130/83 O2 Sat by Pulse 99 98 97 Oximetry O2 Sat by Pulse Oximetry [ Assessment] 02/20/22 02/20/22 08:40 09:00 Temperature Pulse Rate 116 H Respiratory 29 H Rate Blood Pressure 130/83 O2 Sat by Pulse 97 Oximetry O2 Sat by Pulse 94 Oximetry [ Assessment] Constitutional: other (on vent, orally intubated) Eyes: non-icteric ENT: oropharynx moist Ascultation: Bilateral: diminished breath sounds Cardiovascular: regular rate and rhythm Gastrointestinal: normoactive bowel sounds Integumentary: normal Neurologic: other (on vent) Psychiatric: other (on vent) CBC and BMP: 02/20/22 04:22 02/20/22 04:22 ABG, PT/INR, D-dimer: ABG ABG pH 7.463 pH Units (7.350-7.450) H 02/17/22 05:06 POC ABG pCO2 37.3 mmHg (32.0-48.0) 02/02/22 04:49 ABG pCO2 46.8 mm Hg 02/17/22 05:06 POC ABG pO2 79.9 mmHg (83-108) L 02/02/22 04:49 ABG pO2 113.6 mm Hg (80.0-90.0) H 02/17/22 05:06 POC ABG HCO3 30.3 02/02/22 04:49 ABG O2 Saturation 98.2 % (95.0-99.0) 02/17/22 05:06 PT/INR, D-dimer PT 13.7 Sec. (12.2-14.9) 02/18/22 04:00 INR 0.95 (0.87-1.13) 02/18/22 04:00 Abnormal lab findings: Abnormal Labs 01/31/22 01/31/22 01/31/22 20:33 20:33 20:33 WBC 12.5 H RBC 6.16 H Hgb Hct MCV 61 L MCH 18 L RDW 19.6 H Plt Count Seg Neuts % (Manual) 98.0 H Lymphocytes % (Manual) 0 L Nucleated RBC % 2.0 H Seg Neutrophils # Man 12.3 H Lymphocytes # (Manual) 0.0 L Percent Retic Fibrinogen ABG pH POC ABG pO2 ABG pO2 ABG HCO3 ABG O2 Saturation ABG Base Excess ABG Hemoglobin Oxyhemoglobin Carboxyhemoglobin Sodium Potassium 5.6 H Chloride 110.1 H Carbon Dioxide 9 L* BUN Creatinine Glucose 254 H POC Glucose Hemoglobin A1c Lactic Acid 2.50 H* Calcium 10.8 H Phosphorus Magnesium Direct Bilirubin AST ALT Alkaline Phosphatase Lactate Dehydrogenase Total Protein Albumin Urine pH Ur Specific [place] Urine Blood Urine WBC (Auto) Vancomycin Trough Crossmatch 01/31/22 02/01/22 02/01/22 22:49 07:34 08:22 WBC RBC Hgb Hct MCV MCH RDW Plt Count Seg Neuts % (Manual) Lymphocytes % (Manual) Nucleated RBC % Seg Neutrophils # Man Lymphocytes # (Manual) Percent Retic Fibrinogen ABG pH POC ABG pO2 ABG pO2 ABG HCO3 ABG O2 Saturation ABG Base Excess ABG Hemoglobin Oxyhemoglobin Carboxyhemoglobin Sodium Potassium 5.8 H Chloride 115.8 H Carbon Dioxide 3 L* BUN Creatinine Glucose 400 H POC Glucose 368 H Hemoglobin A1c Lactic Acid Calcium Phosphorus Magnesium Direct Bilirubin AST ALT Alkaline Phosphatase Lactate Dehydrogenase Total Protein Albumin Urine pH Ur Specific [place] 1.035 H Urine Blood Small A Urine WBC (Auto) 142.0 H Vancomycin Trough Crossmatch 02/01/22 02/01/22 02/01/22 09:42 12:01 12:54 WBC RBC Hgb Hct MCV MCH RDW Plt Count Seg Neuts % (Manual) Lymphocytes % (Manual) Nucleated RBC % Seg Neutrophils # Man Lymphocytes # (Manual) Percent Retic Fibrinogen ABG pH 7.044 L* POC ABG pO2 ABG pO2 121.0 H ABG HCO3 3.7 L ABG O2 Saturation ABG Base Excess -24.8 L ABG Hemoglobin 9.3 L Oxyhemoglobin Carboxyhemoglobin Sodium Potassium Chloride Carbon Dioxide BUN Creatinine Glucose POC Glucose 382 H Hemoglobin A1c Lactic Acid Calcium Phosphorus 1.40 L Magnesium 1.30 L Direct Bilirubin AST ALT Alkaline Phosphatase Lactate Dehydrogenase Total Protein Albumin Urine pH Ur Specific [place] Urine Blood Urine WBC (Auto) Vancomycin Trough Crossmatch 02/01/22 02/01/22 02/01/22 12:54 12:54 13:27 WBC RBC Hgb Hct MCV MCH RDW Plt Count Seg Neuts % (Manual) Lymphocytes % (Manual) Nucleated RBC % Seg Neutrophils # Man Lymphocytes # (Manual) Percent Retic Fibrinogen ABG pH POC ABG pO2 ABG pO2 ABG HCO3 ABG O2 Saturation ABG Base Excess ABG Hemoglobin Oxyhemoglobin Carboxyhemoglobin Sodium 148 H D Potassium 3.0 L D Chloride 117.3 H Carbon Dioxide 9 L* BUN Creatinine Glucose 439 H POC Glucose 342 H Hemoglobin A1c 11.1 H Lactic Acid Calcium 7.7 L Phosphorus Magnesium Direct Bilirubin AST ALT Alkaline Phosphatase Lactate Dehydrogenase Total Protein Albumin Urine pH Ur Specific [place] Urine Blood Urine WBC (Auto) Vancomycin Trough Crossmatch 02/01/22 02/01/22 02/01/22 14:48 15:48 16:54 WBC RBC Hgb Hct MCV MCH RDW Plt Count Seg Neuts % (Manual) Lymphocytes % (Manual) Nucleated RBC % Seg Neutrophils # Man Lymphocytes # (Manual) Percent Retic Fibrinogen ABG pH POC ABG pO2 ABG pO2 ABG HCO3 ABG O2 Saturation ABG Base Excess ABG Hemoglobin Oxyhemoglobin Carboxyhemoglobin Sodium Potassium Chloride Carbon Dioxide BUN Creatinine Glucose POC Glucose 394 H 412 H 352 H Hemoglobin A1c Lactic Acid Calcium Phosphorus Magnesium Direct Bilirubin AST ALT Alkaline Phosphatase Lactate Dehydrogenase Total Protein Albumin Urine pH Ur Specific [place] Urine Blood Urine WBC (Auto) Vancomycin Trough Crossmatch 02/01/22 02/01/22 02/01/22 18:23 18:53 19:26 WBC RBC Hgb Hct MCV MCH RDW Plt Count Seg Neuts % (Manual) Lymphocytes % (Manual) Nucleated RBC % Seg Neutrophils # Man Lymphocytes # (Manual) Percent Retic Fibrinogen ABG pH 7.331 L POC ABG pO2 ABG pO2 121.4 H ABG HCO3 ABG O2 Saturation ABG Base Excess -4.9 L ABG Hemoglobin 8.4 L Oxyhemoglobin Carboxyhemoglobin Sodium Potassium Chloride Carbon Dioxide BUN Creatinine Glucose POC Glucose 350 H 260 H Hemoglobin A1c Lactic Acid Calcium Phosphorus Magnesium Direct Bilirubin AST ALT Alkaline Phosphatase Lactate Dehydrogenase Total Protein Albumin Urine pH Ur Specific [place] Urine Blood Urine WBC (Auto) Vancomycin Trough Crossmatch 02/01/22 02/01/22 02/01/22 20:20 21:38 22:41 WBC RBC Hgb Hct MCV MCH RDW Plt Count Seg Neuts % (Manual) Lymphocytes % (Manual) Nucleated RBC % Seg Neutrophils # Man Lymphocytes # (Manual) Percent Retic Fibrinogen ABG pH POC ABG pO2 ABG pO2 ABG HCO3 ABG O2 Saturation ABG Base Excess ABG Hemoglobin Oxyhemoglobin Carboxyhemoglobin Sodium Potassium Chloride Carbon Dioxide BUN Creatinine Glucose POC Glucose 266 H 195 H 150 H Hemoglobin A1c Lactic Acid Calcium Phosphorus Magnesium Direct Bilirubin AST ALT Alkaline Phosphatase Lactate Dehydrogenase Total Protein Albumin Urine pH Ur Specific [place] Urine Blood Urine WBC (Auto) Vancomycin Trough Crossmatch 02/01/22 02/02/22 02/02/22 23:39 00:25 00:25 WBC RBC Hgb Hct MCV MCH RDW Plt Count Seg Neuts % (Manual) Lymphocytes % (Manual) Nucleated RBC % Seg Neutrophils # Man Lymphocytes # (Manual) Percent Retic Fibrinogen ABG pH POC ABG pO2 ABG pO2 ABG HCO3 ABG O2 Saturation ABG Base Excess ABG Hemoglobin Oxyhemoglobin Carboxyhemoglobin Sodium 156 H D Potassium 3.0 L Chloride 114.2 H Carbon Dioxide BUN Creatinine 0.5 L Glucose 63 L POC Glucose 125 H Hemoglobin A1c Lactic Acid 7.10 H* Calcium 8.1 L Phosphorus Magnesium Direct Bilirubin AST ALT Alkaline Phosphatase Lactate Dehydrogenase Total Protein Albumin Urine pH Ur Specific [place] Urine Blood Urine WBC (Auto) Vancomycin Trough Crossmatch 02/02/22 02/02/22 02/02/22 04:00 04:00 04:35 WBC 1.4 L* RBC Hgb 8.5 L Hct 26.8 L D MCV 57 L MCH 18 L RDW 19.0 H Plt Count 129 L Seg Neuts % (Manual) 33.0 L Lymphocytes % (Manual) 57.0 H Nucleated RBC % Seg Neutrophils # Man 0.5 L Lymphocytes # (Manual) 0.8 L Percent Retic Fibrinogen ABG pH POC ABG pO2 ABG pO2 ABG HCO3 ABG O2 Saturation ABG Base Excess ABG Hemoglobin Oxyhemoglobin Carboxyhemoglobin Sodium 155 H Potassium Chloride 113.1 H Carbon Dioxide BUN Creatinine Glucose 159 H POC Glucose Hemoglobin A1c Lactic Acid 3.10 H* Calcium 7.6 L Phosphorus Magnesium Direct Bilirubin AST ALT Alkaline Phosphatase Lactate Dehydrogenase Total Protein Albumin Urine pH Ur Specific [place] Urine Blood Urine WBC (Auto) Vancomycin Trough Crossmatch 02/02/22 02/02/22 02/02/22 04:37 04:49 05:43 WBC RBC Hgb Hct MCV MCH RDW Plt Count Seg Neuts % (Manual) Lymphocytes % (Manual) Nucleated RBC % Seg Neutrophils # Man Lymphocytes # (Manual) Percent Retic Fibrinogen ABG pH 7.528 H POC ABG pO2 79.9 L ABG pO2 ABG HCO3 ABG O2 Saturation ABG Base Excess ABG Hemoglobin 8.8 L Oxyhemoglobin Carboxyhemoglobin 0.2 L Sodium Potassium Chloride Carbon Dioxide BUN Creatinine Glucose POC Glucose 116 H 125 H Hemoglobin A1c Lactic Acid Calcium Phosphorus Magnesium Direct Bilirubin AST ALT Alkaline Phosphatase Lactate Dehydrogenase Total Protein Albumin Urine pH Ur Specific [place] Urine Blood Urine WBC (Auto) Vancomycin Trough Crossmatch 02/02/22 02/02/22 02/02/22 06:52 09:02 09:05 WBC RBC Hgb Hct MCV MCH RDW Plt Count Seg Neuts % (Manual) Lymphocytes % (Manual) Nucleated RBC % Seg Neutrophils # Man Lymphocytes # (Manual) Percent Retic Fibrinogen ABG pH POC ABG pO2 ABG pO2 ABG HCO3 ABG O2 Saturation ABG Base Excess ABG Hemoglobin Oxyhemoglobin Carboxyhemoglobin Sodium 154 H Potassium 3.3 L Chloride 113.3 H Carbon Dioxide BUN Creatinine Glucose 35 L* POC Glucose 110 H 35 L Hemoglobin A1c Lactic Acid Calcium 7.4 L Phosphorus 1.70 L D Magnesium 2.50 H Direct Bilirubin AST ALT Alkaline Phosphatase Lactate Dehydrogenase Total Protein Albumin Urine pH Ur Specific [place] Urine Blood Urine WBC (Auto) Vancomycin Trough Crossmatch 02/02/22 02/02/22 02/02/22 09:05 09:30 09:41 WBC 2.6 L RBC Hgb 8.0 L Hct 25.0 L MCV 57 L MCH 18 L RDW 18.8 H Plt Count 97 L Seg Neuts % (Manual) Lymphocytes % (Manual) 12.0 L Nucleated RBC % 10.0 H Seg Neutrophils # Man 1.7 L Lymphocytes # (Manual) 0.3 L Percent Retic Fibrinogen ABG pH POC ABG pO2 ABG pO2 ABG HCO3 ABG O2 Saturation ABG Base Excess ABG Hemoglobin Oxyhemoglobin Carboxyhemoglobin Sodium Potassium Chloride Carbon Dioxide BUN Creatinine Glucose POC Glucose 119 H Hemoglobin A1c Lactic Acid 7.10 H* Calcium Phosphorus Magnesium Direct Bilirubin AST ALT Alkaline Phosphatase Lactate Dehydrogenase Total Protein Albumin Urine pH Ur Specific [place] Urine Blood Urine WBC (Auto) Vancomycin Trough Crossmatch 02/02/22 02/02/22 02/02/22 10:17 12:32 15:39 WBC RBC Hgb Hct MCV MCH RDW Plt Count Seg Neuts % (Manual) Lymphocytes % (Manual) Nucleated RBC % Seg Neutrophils # Man Lymphocytes # (Manual) Percent Retic Fibrinogen ABG pH POC ABG pO2 ABG pO2 ABG HCO3 ABG O2 Saturation ABG Base Excess ABG Hemoglobin Oxyhemoglobin Carboxyhemoglobin Sodium Potassium Chloride Carbon Dioxide BUN Creatinine Glucose POC Glucose 120 H 166 H 263 H Hemoglobin A1c Lactic Acid Calcium Phosphorus Magnesium Direct Bilirubin AST ALT Alkaline Phosphatase Lactate Dehydrogenase Total Protein Albumin Urine pH Ur Specific [place] Urine Blood Urine WBC (Auto) Vancomycin Trough Crossmatch 02/02/22 02/02/22 02/02/22 17:07 17:50 Unknown WBC RBC Hgb Hct MCV MCH RDW Plt Count Seg Neuts % (Manual) Lymphocytes % (Manual) Nucleated RBC % Seg Neutrophils # Man Lymphocytes # (Manual) Percent Retic Fibrinogen ABG pH 7.457 H POC ABG pO2 ABG pO2 71.0 L ABG HCO3 ABG O2 Saturation 94.5 L ABG Base Excess ABG Hemoglobin 9.2 L Oxyhemoglobin 93.0 L Carboxyhemoglobin Sodium 147 H Potassium 5.5 H D Chloride 110.8 H Carbon Dioxide BUN Creatinine Glucose 271 H POC Glucose 231 H Hemoglobin A1c Lactic Acid Calcium 7.3 L Phosphorus Magnesium Direct Bilirubin AST ALT Alkaline Phosphatase Lactate Dehydrogenase Total Protein Albumin Urine pH Ur Specific [place] Urine Blood Urine WBC (Auto) Vancomycin Trough Crossmatch 02/03/22 02/03/22 02/03/22 00:08 04:00 04:00 WBC 3.7 L RBC Hgb 8.0 L Hct 25.5 L MCV 58 L MCH 18 L RDW 18.2 H Plt Count 79 L Seg Neuts % (Manual) 76.0 H Lymphocytes % (Manual) 2.0 L Nucleated RBC % 4.0 H Seg Neutrophils # Man Lymphocytes # (Manual) 0.1 L Percent Retic Fibrinogen ABG pH POC ABG pO2 ABG pO2 ABG HCO3 ABG O2 Saturation ABG Base Excess ABG Hemoglobin Oxyhemoglobin Carboxyhemoglobin Sodium 147 H Potassium Chloride 112.9 H Carbon Dioxide BUN Creatinine Glucose 281 H POC Glucose 231 H Hemoglobin A1c Lactic Acid Calcium 7.8 L Phosphorus Magnesium Direct Bilirubin 0.3 H AST 172 H ALT 89 H Alkaline Phosphatase Lactate Dehydrogenase Total Protein 4.7 L D Albumin 2.0 L Urine pH Ur Specific [place] Urine Blood Urine WBC (Auto) Vancomycin Trough Crossmatch 02/03/22 02/03/22 02/03/22 04:20 05:26 11:38 WBC RBC Hgb Hct MCV MCH RDW Plt Count Seg Neuts % (Manual) Lymphocytes % (Manual) Nucleated RBC % Seg Neutrophils # Man Lymphocytes # (Manual) Percent Retic Fibrinogen ABG pH POC ABG pO2 ABG pO2 75.5 L ABG HCO3 ABG O2 Saturation ABG Base Excess -2.8 L ABG Hemoglobin 8.1 L Oxyhemoglobin 94.6 L Carboxyhemoglobin Sodium Potassium Chloride Carbon Dioxide BUN Creatinine Glucose POC Glucose 247 H 196 H Hemoglobin A1c Lactic Acid Calcium Phosphorus Magnesium Direct Bilirubin AST ALT Alkaline Phosphatase Lactate Dehydrogenase Total Protein Albumin Urine pH Ur Specific [place] Urine Blood Urine WBC (Auto) Vancomycin Trough Crossmatch 02/03/22 02/04/22 02/04/22 16:27 02:44 03:18 WBC 1.2 L* RBC Hgb 8.2 L Hct 26.6 L MCV 59 L MCH 18 L RDW 19.6 H Plt Count 50 L Seg Neuts % (Manual) Lymphocytes % (Manual) Nucleated RBC % Seg Neutrophils # Man Lymphocytes # (Manual) Percent Retic Fibrinogen ABG pH POC ABG pO2 ABG pO2 ABG HCO3 ABG O2 Saturation ABG Base Excess ABG Hemoglobin Oxyhemoglobin Carboxyhemoglobin Sodium 148 H Potassium Chloride 116.3 H Carbon Dioxide BUN Creatinine Glucose 139 H POC Glucose 119 H Hemoglobin A1c Lactic Acid Calcium Phosphorus Magnesium Direct Bilirubin 0.3 H AST 92 H ALT 76 H Alkaline Phosphatase Lactate Dehydrogenase Total Protein 4.7 L Albumin 1.6 L Urine pH Ur Specific [place] Urine Blood Urine WBC (Auto) Vancomycin Trough Crossmatch 02/04/22 02/04/22 02/04/22 05:15 05:26 09:15 WBC RBC Hgb Hct MCV MCH RDW Plt Count Seg Neuts % (Manual) Lymphocytes % (Manual) Nucleated RBC % Seg Neutrophils # Man Lymphocytes # (Manual) Percent Retic Fibrinogen ABG pH 7.311 L POC ABG pO2 ABG pO2 50.1 L ABG HCO3 ABG O2 Saturation 83.6 L ABG Base Excess ABG Hemoglobin 8.6 L Oxyhemoglobin 81.9 L Carboxyhemoglobin Sodium Potassium Chloride Carbon Dioxide BUN Creatinine Glucose POC Glucose 115 H Hemoglobin A1c Lactic Acid Calcium Phosphorus Magnesium Direct Bilirubin AST ALT Alkaline Phosphatase Lactate Dehydrogenase Total Protein Albumin Urine pH Ur Specific [place] Urine Blood Large A Urine WBC (Auto) 12.0 H Vancomycin Trough Crossmatch 02/04/22 02/04/22 02/04/22 11:17 14:37 17:04 WBC RBC Hgb Hct MCV MCH RDW Plt Count Seg Neuts % (Manual) Lymphocytes % (Manual) Nucleated RBC % Seg Neutrophils # Man Lymphocytes # (Manual) Percent Retic Fibrinogen ABG pH POC ABG pO2 ABG pO2 ABG HCO3 ABG O2 Saturation ABG Base Excess ABG Hemoglobin Oxyhemoglobin Carboxyhemoglobin Sodium Potassium Chloride Carbon Dioxide BUN Creatinine Glucose POC Glucose 166 H 109 H Hemoglobin A1c Lactic Acid Calcium Phosphorus Magnesium Direct Bilirubin AST 87 H ALT 75 H Alkaline Phosphatase 137 H Lactate Dehydrogenase Total Protein 4.6 L Albumin 1.7 L Urine pH Ur Specific [place] Urine Blood Urine WBC (Auto) Vancomycin Trough Crossmatch 02/04/22 02/04/22 02/04/22 20:15 20:22 20:22 WBC RBC Hgb 7.1 L Hct 22.6 L MCV MCH RDW Plt Count Seg Neuts % (Manual) Lymphocytes % (Manual) Nucleated RBC % Seg Neutrophils # Man Lymphocytes # (Manual) Percent Retic Fibrinogen ABG pH 7.292 L POC ABG pO2 ABG pO2 40.3 L ABG HCO3 ABG O2 Saturation 72.1 L ABG Base Excess -2.2 L ABG Hemoglobin 7.0 L Oxyhemoglobin 70.5 L Carboxyhemoglobin Sodium Potassium Chloride Carbon Dioxide BUN Creatinine Glucose POC Glucose Hemoglobin A1c Lactic Acid 3.00 H* Calcium Phosphorus Magnesium Direct Bilirubin AST ALT Alkaline Phosphatase Lactate Dehydrogenase Total Protein Albumin Urine pH Ur Specific [place] Urine Blood Urine WBC (Auto) Vancomycin Trough Crossmatch 02/04/22 02/04/22 02/05/22 20:22 23:03 04:40 WBC 3.1 L RBC Hgb 9.6 L Hct 30.1 L D MCV 64 L MCH 20 L RDW 26.9 H Plt Count 50 L Seg Neuts % (Manual) Lymphocytes % (Manual) Nucleated RBC % Seg Neutrophils # Man Lymphocytes # (Manual) Percent Retic Fibrinogen ABG pH POC ABG pO2 ABG pO2 ABG HCO3 ABG O2 Saturation ABG Base Excess ABG Hemoglobin Oxyhemoglobin Carboxyhemoglobin Sodium Potassium Chloride Carbon Dioxide BUN Creatinine Glucose POC Glucose 171 H Hemoglobin A1c Lactic Acid Calcium Phosphorus Magnesium Direct Bilirubin AST ALT Alkaline Phosphatase Lactate Dehydrogenase Total Protein Albumin Urine pH Ur Specific [place] Urine Blood Urine WBC (Auto) Vancomycin Trough Crossmatch See Detail 02/05/22 02/05/22 02/05/22 04:40 04:40 04:43 WBC RBC Hgb Hct MCV MCH RDW Plt Count Seg Neuts % (Manual) Lymphocytes % (Manual) Nucleated RBC % Seg Neutrophils # Man Lymphocytes # (Manual) Percent Retic Fibrinogen ABG pH POC ABG pO2 ABG pO2 ABG HCO3 ABG O2 Saturation ABG Base Excess ABG Hemoglobin Oxyhemoglobin Carboxyhemoglobin Sodium 148 H Potassium Chloride 113.2 H Carbon Dioxide BUN 21 H Creatinine Glucose 155 H POC Glucose 156 H Hemoglobin A1c Lactic Acid Calcium Phosphorus Magnesium Direct Bilirubin AST 84 H ALT 67 H Alkaline Phosphatase 152 H Lactate Dehydrogenase 879 H Total Protein 5.0 L Albumin 1.8 L Urine pH Ur Specific [place] Urine Blood Urine WBC (Auto) Vancomycin Trough Crossmatch 02/05/22 02/05/22 02/05/22 08:10 08:48 08:48 WBC RBC Hgb Hct MCV MCH RDW Plt Count Seg Neuts % (Manual) Lymphocytes % (Manual) Nucleated RBC % Seg Neutrophils # Man Lymphocytes # (Manual) Percent Retic Fibrinogen 795 H ABG pH POC ABG pO2 ABG pO2 57.1 L ABG HCO3 27.8 H ABG O2 Saturation 90.8 L ABG Base Excess ABG Hemoglobin 8.5 L Oxyhemoglobin 88.9 L Carboxyhemoglobin Sodium Potassium Chloride Carbon Dioxide BUN Creatinine Glucose POC Glucose Hemoglobin A1c Lactic Acid 2.90 H* Calcium Phosphorus Magnesium Direct Bilirubin AST ALT Alkaline Phosphatase Lactate Dehydrogenase Total Protein Albumin Urine pH Ur Specific [place] Urine Blood Urine WBC (Auto) Vancomycin Trough Crossmatch 02/05/22 02/05/22 02/05/22 11:46 17:45 Unknown WBC RBC Hgb Hct MCV MCH RDW Plt Count Seg Neuts % (Manual) Lymphocytes % (Manual) Nucleated RBC % Seg Neutrophils # Man Lymphocytes # (Manual) Percent Retic Fibrinogen ABG pH POC ABG pO2 ABG pO2 ABG HCO3 ABG O2 Saturation ABG Base Excess ABG Hemoglobin Oxyhemoglobin Carboxyhemoglobin Sodium Potassium Chloride Carbon Dioxide BUN Creatinine Glucose POC Glucose 61 L 133 H Hemoglobin A1c Lactic Acid Calcium Phosphorus Magnesium Direct Bilirubin AST ALT Alkaline Phosphatase Lactate Dehydrogenase Total Protein Albumin Urine pH Ur Specific [place] Urine Blood Urine WBC (Auto) Vancomycin Trough 28.6 H Crossmatch 02/05/22 02/06/22 02/06/22 23:59 04:33 04:33 WBC RBC Hgb 8.4 L Hct 26.1 L MCV 64 L MCH 21 L RDW 26.2 H Plt Count 38 L Seg Neuts % (Manual) Lymphocytes % (Manual) Nucleated RBC % Seg Neutrophils # Man Lymphocytes # (Manual) Percent Retic Fibrinogen ABG pH POC ABG pO2 ABG pO2 ABG HCO3 ABG O2 Saturation ABG Base Excess ABG Hemoglobin Oxyhemoglobin Carboxyhemoglobin Sodium 146 H Potassium 3.4 L Chloride Carbon Dioxide 31 H BUN 21 H Creatinine Glucose 230 H POC Glucose 275 H Hemoglobin A1c Lactic Acid Calcium Phosphorus Magnesium Direct Bilirubin AST 70 H ALT Alkaline Phosphatase 197 H Lactate Dehydrogenase Total Protein 5.3 L Albumin 2.4 L Urine pH Ur Specific [place] Urine Blood Urine WBC (Auto) Vancomycin Trough Crossmatch 02/06/22 02/06/22 02/06/22 04:33 04:50 06:19 WBC RBC Hgb Hct MCV MCH RDW Plt Count Seg Neuts % (Manual) Lymphocytes % (Manual) Nucleated RBC % Seg Neutrophils # Man Lymphocytes # (Manual) Percent Retic Fibrinogen ABG pH 7.330 L POC ABG pO2 ABG pO2 57.9 L ABG HCO3 31.3 H ABG O2 Saturation 89.6 L ABG Base Excess 4.5 H ABG Hemoglobin 8.1 L Oxyhemoglobin 87.7 L Carboxyhemoglobin Sodium Potassium Chloride Carbon Dioxide BUN Creatinine Glucose POC Glucose 219 H Hemoglobin A1c Lactic Acid 3.10 H* Calcium Phosphorus Magnesium Direct Bilirubin AST ALT Alkaline Phosphatase Lactate Dehydrogenase Total Protein Albumin Urine pH Ur Specific [place] Urine Blood Urine WBC (Auto) Vancomycin Trough Crossmatch 02/06/22 02/06/22 02/06/22 11:24 11:50 12:26 WBC RBC Hgb Hct MCV MCH RDW Plt Count Seg Neuts % (Manual) Lymphocytes % (Manual) Nucleated RBC % Seg Neutrophils # Man Lymphocytes # (Manual) Percent Retic Fibrinogen ABG pH 7.298 L POC ABG pO2 ABG pO2 43.3 L ABG HCO3 36.7 H ABG O2 Saturation 74.9 L ABG Base Excess 8.8 H ABG Hemoglobin 8.2 L Oxyhemoglobin 73.3 L Carboxyhemoglobin Sodium Potassium Chloride Carbon Dioxide BUN Creatinine Glucose POC Glucose 118 H Hemoglobin A1c Lactic Acid 2.50 H* Calcium Phosphorus Magnesium Direct Bilirubin AST ALT Alkaline Phosphatase Lactate Dehydrogenase Total Protein Albumin Urine pH Ur Specific [place] Urine Blood Urine WBC (Auto) Vancomycin Trough Crossmatch 02/06/22 02/06/22 02/07/22 17:41 21:41 00:17 WBC RBC Hgb Hct MCV MCH RDW Plt Count Seg Neuts % (Manual) Lymphocytes % (Manual) Nucleated RBC % Seg Neutrophils # Man Lymphocytes # (Manual) Percent Retic Fibrinogen ABG pH POC ABG pO2 ABG pO2 ABG HCO3 ABG O2 Saturation ABG Base Excess ABG Hemoglobin Oxyhemoglobin Carboxyhemoglobin Sodium Potassium Chloride Carbon Dioxide BUN Creatinine Glucose POC Glucose 208 H 282 H 342 H Hemoglobin A1c Lactic Acid Calcium Phosphorus Magnesium Direct Bilirubin AST ALT Alkaline Phosphatase Lactate Dehydrogenase Total Protein Albumin Urine pH Ur Specific [place] Urine Blood Urine WBC (Auto) Vancomycin Trough Crossmatch 02/07/22 02/07/22 02/07/22 00:19 04:12 04:12 WBC 13.1 H RBC Hgb 8.5 L Hct 26.4 L MCV 62 L MCH 20 L RDW 24.2 H Plt Count 57 L Seg Neuts % (Manual) Lymphocytes % (Manual) Nucleated RBC % Seg Neutrophils # Man Lymphocytes # (Manual) Percent Retic Fibrinogen ABG pH POC ABG pO2 ABG pO2 ABG HCO3 ABG O2 Saturation ABG Base Excess ABG Hemoglobin Oxyhemoglobin Carboxyhemoglobin Sodium 149 H Potassium 3.1 L Chloride Carbon Dioxide 38 H D BUN 23 H Creatinine Glucose 298 H POC Glucose 209 H Hemoglobin A1c Lactic Acid Calcium Phosphorus 2.10 L Magnesium Direct Bilirubin AST 49 H ALT Alkaline Phosphatase 248 H Lactate Dehydrogenase Total Protein 5.4 L Albumin 2.7 L Urine pH Ur Specific [place] Urine Blood Urine WBC (Auto) Vancomycin Trough Crossmatch 02/07/22 02/07/22 02/07/22 04:40 07:09 07:13 WBC RBC Hgb Hct MCV MCH RDW Plt Count Seg Neuts % (Manual) Lymphocytes % (Manual) Nucleated RBC % Seg Neutrophils # Man Lymphocytes # (Manual) Percent Retic Fibrinogen ABG pH 7.474 H POC ABG pO2 ABG pO2 62.1 L ABG HCO3 39.1 H ABG O2 Saturation 94.7 L ABG Base Excess 13.9 H ABG Hemoglobin 8.6 L Oxyhemoglobin 93.0 L Carboxyhemoglobin Sodium Potassium Chloride Carbon Dioxide BUN Creatinine Glucose POC Glucose 399 H 418 H Hemoglobin A1c Lactic Acid Calcium Phosphorus Magnesium Direct Bilirubin AST ALT Alkaline Phosphatase Lactate Dehydrogenase Total Protein Albumin Urine pH Ur Specific [place] Urine Blood Urine WBC (Auto) Vancomycin Trough Crossmatch 02/07/22 02/07/22 02/07/22 12:20 17:29 23:37 WBC RBC Hgb Hct MCV MCH RDW Plt Count Seg Neuts % (Manual) Lymphocytes % (Manual) Nucleated RBC % Seg Neutrophils # Man Lymphocytes # (Manual) Percent Retic Fibrinogen ABG pH POC ABG pO2 ABG pO2 ABG HCO3 ABG O2 Saturation ABG Base Excess ABG Hemoglobin Oxyhemoglobin Carboxyhemoglobin Sodium Potassium Chloride Carbon Dioxide BUN Creatinine Glucose POC Glucose 229 H 159 H 236 H Hemoglobin A1c Lactic Acid Calcium Phosphorus Magnesium Direct Bilirubin AST ALT Alkaline Phosphatase Lactate Dehydrogenase Total Protein Albumin Urine pH Ur Specific [place] Urine Blood Urine WBC (Auto) Vancomycin Trough Crossmatch 02/08/22 02/08/22 02/08/22 03:55 03:55 05:20 WBC 14.7 H RBC Hgb 7.7 L Hct 25.0 L MCV 64 L MCH 20 L RDW 25.1 H Plt Count 79 L Seg Neuts % (Manual) Lymphocytes % (Manual) Nucleated RBC % Seg Neutrophils # Man Lymphocytes # (Manual) Percent Retic 0.65 L Fibrinogen ABG pH POC ABG pO2 ABG pO2 ABG HCO3 ABG O2 Saturation ABG Base Excess ABG Hemoglobin Oxyhemoglobin Carboxyhemoglobin Sodium Potassium 3.0 L Chloride 93.9 L Carbon Dioxide 44 H* BUN 30 H Creatinine Glucose 229 H POC Glucose 235 H Hemoglobin A1c Lactic Acid Calcium 8.3 L Phosphorus 2.30 L Magnesium Direct Bilirubin AST 77 H ALT Alkaline Phosphatase 246 H Lactate Dehydrogenase Total Protein 5.2 L Albumin 2.7 L Urine pH Ur Specific [place] Urine Blood Urine WBC (Auto) Vancomycin Trough Crossmatch 02/08/22 02/08/22 02/08/22 11:47 16:36 21:41 WBC RBC Hgb Hct MCV MCH RDW Plt Count Seg Neuts % (Manual) Lymphocytes % (Manual) Nucleated RBC % Seg Neutrophils # Man Lymphocytes # (Manual) Percent Retic Fibrinogen ABG pH POC ABG pO2 ABG pO2 ABG HCO3 ABG O2 Saturation ABG Base Excess ABG Hemoglobin Oxyhemoglobin Carboxyhemoglobin Sodium Potassium Chloride Carbon Dioxide BUN Creatinine Glucose POC Glucose 193 H 205 H 292 H Hemoglobin A1c Lactic Acid Calcium Phosphorus Magnesium Direct Bilirubin AST ALT Alkaline Phosphatase Lactate Dehydrogenase Total Protein Albumin Urine pH Ur Specific [place] Urine Blood Urine WBC (Auto) Vancomycin Trough Crossmatch 02/08/22 02/08/22 02/09/22 Unknown 23:59 04:00 WBC 16.4 H RBC Hgb 8.2 L Hct 26.3 L MCV 63 L MCH 20 L RDW 23.9 H Plt Count 128 L Seg Neuts % (Manual) Lymphocytes % (Manual) Nucleated RBC % Seg Neutrophils # Man Lymphocytes # (Manual) Percent Retic Fibrinogen ABG pH 7.488 H POC ABG pO2 ABG pO2 63.1 L ABG HCO3 45.5 H ABG O2 Saturation 94.1 L ABG Base Excess 19.8 H ABG Hemoglobin 8.7 L Oxyhemoglobin 92.4 L Carboxyhemoglobin Sodium Potassium Chloride Carbon Dioxide BUN Creatinine Glucose POC Glucose 342 H Hemoglobin A1c Lactic Acid Calcium Phosphorus Magnesium Direct Bilirubin AST ALT Alkaline Phosphatase Lactate Dehydrogenase Total Protein Albumin Urine pH Ur Specific [place] Urine Blood Urine WBC (Auto) Vancomycin Trough Crossmatch 02/09/22 02/09/22 02/09/22 04:00 05:30 06:07 WBC RBC Hgb Hct MCV MCH RDW Plt Count Seg Neuts % (Manual) Lymphocytes % (Manual) Nucleated RBC % Seg Neutrophils # Man Lymphocytes # (Manual) Percent Retic Fibrinogen ABG pH 7.539 H POC ABG pO2 ABG pO2 210.4 H ABG HCO3 42.4 H ABG O2 Saturation 99.3 H ABG Base Excess 18.0 H ABG Hemoglobin 7.8 L Oxyhemoglobin Carboxyhemoglobin Sodium 149 H Potassium 3.1 L Chloride 97.6 L Carbon Dioxide 42 H* BUN 27 H Creatinine Glucose 257 H POC Glucose 260 H Hemoglobin A1c Lactic Acid Calcium 8.2 L Phosphorus 1.90 L Magnesium Direct Bilirubin AST 81 H ALT Alkaline Phosphatase 229 H Lactate Dehydrogenase Total Protein 5.4 L Albumin 2.6 L Urine pH Ur Specific [place] Urine Blood Urine WBC (Auto) Vancomycin Trough Crossmatch 02/09/22 02/09/22 02/09/22 11:16 17:33 20:25 WBC RBC Hgb Hct MCV MCH RDW Plt Count Seg Neuts % (Manual) Lymphocytes % (Manual) Nucleated RBC % Seg Neutrophils # Man Lymphocytes # (Manual) Percent Retic Fibrinogen ABG pH 7.504 H POC ABG pO2 ABG pO2 79.7 L ABG HCO3 44.2 H ABG O2 Saturation ABG Base Excess 19.2 H ABG Hemoglobin 7.0 L Oxyhemoglobin Carboxyhemoglobin Sodium Potassium Chloride Carbon Dioxide BUN Creatinine Glucose POC Glucose 184 H 123 H Hemoglobin A1c Lactic Acid Calcium Phosphorus Magnesium Direct Bilirubin AST ALT Alkaline Phosphatase Lactate Dehydrogenase Total Protein Albumin Urine pH Ur Specific [place] Urine Blood Urine WBC (Auto) Vancomycin Trough Crossmatch 02/09/22 02/09/22 02/10/22 21:16 23:13 03:40 WBC 17.2 H RBC Hgb 7.9 L Hct 25.3 L MCV 63 L MCH 20 L RDW 20.7 H Plt Count Seg Neuts % (Manual) Lymphocytes % (Manual) Nucleated RBC % Seg Neutrophils # Man Lymphocytes # (Manual) Percent Retic Fibrinogen ABG pH POC ABG pO2 ABG pO2 ABG HCO3 ABG O2 Saturation ABG Base Excess ABG Hemoglobin Oxyhemoglobin Carboxyhemoglobin Sodium Potassium Chloride Carbon Dioxide BUN Creatinine Glucose POC Glucose 186 H 276 H Hemoglobin A1c Lactic Acid Calcium Phosphorus Magnesium Direct Bilirubin AST ALT Alkaline Phosphatase Lactate Dehydrogenase Total Protein Albumin Urine pH Ur Specific [place] Urine Blood Urine WBC (Auto) Vancomycin Trough Crossmatch 02/10/22 02/10/22 02/10/22 03:40 04:17 04:17 WBC RBC Hgb Hct MCV MCH RDW Plt Count Seg Neuts % (Manual) Lymphocytes % (Manual) Nucleated RBC % Seg Neutrophils # Man Lymphocytes # (Manual) Percent Retic Fibrinogen ABG pH 7.468 H POC ABG pO2 ABG pO2 124.2 H ABG HCO3 42.1 H ABG O2 Saturation ABG Base Excess 16.6 H ABG Hemoglobin 7.6 L Oxyhemoglobin Carboxyhemoglobin Sodium 149 H Potassium 3.2 L Chloride Carbon Dioxide 38 H BUN 26 H Creatinine 0.5 L Glucose 188 H POC Glucose 189 H Hemoglobin A1c Lactic Acid Calcium 8.3 L Phosphorus 2.10 L Magnesium Direct Bilirubin AST 120 H ALT 80 H Alkaline Phosphatase 207 H Lactate Dehydrogenase Total Protein 5.3 L Albumin 2.4 L Urine pH Ur Specific [place] Urine Blood Urine WBC (Auto) Vancomycin Trough Crossmatch 02/10/22 02/10/22 02/10/22 11:46 16:27 21:15 WBC RBC Hgb Hct MCV MCH RDW Plt Count Seg Neuts % (Manual) Lymphocytes % (Manual) Nucleated RBC % Seg Neutrophils # Man Lymphocytes # (Manual) Percent Retic Fibrinogen ABG pH POC ABG pO2 ABG pO2 ABG HCO3 ABG O2 Saturation ABG Base Excess ABG Hemoglobin Oxyhemoglobin Carboxyhemoglobin Sodium Potassium Chloride Carbon Dioxide BUN Creatinine Glucose POC Glucose 189 H 198 H 261 H Hemoglobin A1c Lactic Acid Calcium Phosphorus Magnesium Direct Bilirubin AST ALT Alkaline Phosphatase Lactate Dehydrogenase Total Protein Albumin Urine pH Ur Specific [place] Urine Blood Urine WBC (Auto) Vancomycin Trough Crossmatch 02/10/22 02/11/22 02/11/22 23:20 04:00 04:00 WBC 20.8 H RBC Hgb 7.7 L Hct 24.5 L MCV 64 L MCH 20 L RDW 23.5 H Plt Count Seg Neuts % (Manual) Lymphocytes % (Manual) Nucleated RBC % Seg Neutrophils # Man Lymphocytes # (Manual) Percent Retic Fibrinogen ABG pH POC ABG pO2 ABG pO2 ABG HCO3 ABG O2 Saturation ABG Base Excess ABG Hemoglobin Oxyhemoglobin Carboxyhemoglobin Sodium 148 H Potassium 3.3 L Chloride Carbon Dioxide 39 H BUN 27 H Creatinine 0.5 L Glucose 218 H POC Glucose 196 H Hemoglobin A1c Lactic Acid Calcium 8.3 L Phosphorus Magnesium Direct Bilirubin AST ALT Alkaline Phosphatase Lactate Dehydrogenase Total Protein Albumin Urine pH Ur Specific [place] Urine Blood Urine WBC (Auto) Vancomycin Trough Crossmatch 02/11/22 02/11/22 02/11/22 05:00 05:57 11:15 WBC RBC Hgb Hct MCV MCH RDW Plt Count Seg Neuts % (Manual) Lymphocytes % (Manual) Nucleated RBC % Seg Neutrophils # Man Lymphocytes # (Manual) Percent Retic Fibrinogen ABG pH 7.459 H POC ABG pO2 ABG pO2 99.8 H ABG HCO3 41.4 H ABG O2 Saturation ABG Base Excess 15.9 H ABG Hemoglobin 7.5 L Oxyhemoglobin Carboxyhemoglobin Sodium Potassium Chloride Carbon Dioxide BUN Creatinine Glucose POC Glucose 173 H 204 H Hemoglobin A1c Lactic Acid Calcium Phosphorus Magnesium Direct Bilirubin AST ALT Alkaline Phosphatase Lactate Dehydrogenase Total Protein Albumin Urine pH Ur Specific [place] Urine Blood Urine WBC (Auto) Vancomycin Trough Crossmatch 02/11/22 02/11/22 02/12/22 17:15 21:21 00:29 WBC RBC Hgb Hct MCV MCH RDW Plt Count Seg Neuts % (Manual) Lymphocytes % (Manual) Nucleated RBC % Seg Neutrophils # Man Lymphocytes # (Manual) Percent Retic Fibrinogen ABG pH POC ABG pO2 ABG pO2 ABG HCO3 ABG O2 Saturation ABG Base Excess ABG Hemoglobin Oxyhemoglobin Carboxyhemoglobin Sodium Potassium Chloride Carbon Dioxide BUN Creatinine Glucose POC Glucose 157 H 183 H 197 H Hemoglobin A1c Lactic Acid Calcium Phosphorus Magnesium Direct Bilirubin AST ALT Alkaline Phosphatase Lactate Dehydrogenase Total Protein Albumin Urine pH Ur Specific [place] Urine Blood Urine WBC (Auto) Vancomycin Trough Crossmatch 02/12/22 02/12/22 02/12/22 04:17 04:17 05:00 WBC 23.9 H RBC Hgb 7.5 L Hct 24.2 L MCV 64 L MCH 20 L RDW 25.5 H Plt Count Seg Neuts % (Manual) Lymphocytes % (Manual) Nucleated RBC % Seg Neutrophils # Man Lymphocytes # (Manual) Percent Retic Fibrinogen ABG pH 7.467 H POC ABG pO2 ABG pO2 97.9 H ABG HCO3 40.7 H ABG O2 Saturation ABG Base Excess 15.3 H ABG Hemoglobin 7.5 L Oxyhemoglobin Carboxyhemoglobin Sodium 146 H Potassium Chloride Carbon Dioxide 39 H BUN 25 H Creatinine 0.4 L Glucose 135 H POC Glucose Hemoglobin A1c Lactic Acid Calcium Phosphorus Magnesium Direct Bilirubin AST ALT Alkaline Phosphatase Lactate Dehydrogenase Total Protein Albumin Urine pH Ur Specific [place] Urine Blood Urine WBC (Auto) Vancomycin Trough Crossmatch 02/12/22 02/12/22 02/12/22 05:53 12:31 17:54 WBC RBC Hgb Hct MCV MCH RDW Plt Count Seg Neuts % (Manual) Lymphocytes % (Manual) Nucleated RBC % Seg Neutrophils # Man Lymphocytes # (Manual) Percent Retic Fibrinogen ABG pH POC ABG pO2 ABG pO2 ABG HCO3 ABG O2 Saturation ABG Base Excess ABG Hemoglobin Oxyhemoglobin Carboxyhemoglobin Sodium Potassium Chloride Carbon Dioxide BUN Creatinine Glucose POC Glucose 114 H 124 H 159 H Hemoglobin A1c Lactic Acid Calcium Phosphorus Magnesium Direct Bilirubin AST ALT Alkaline Phosphatase Lactate Dehydrogenase Total Protein Albumin Urine pH Ur Specific [place] Urine Blood Urine WBC (Auto) Vancomycin Trough Crossmatch 02/12/22 02/13/22 02/13/22 22:09 03:40 04:00 WBC 23.6 H RBC 3.42 L Hgb 6.7 L Hct 21.7 L MCV 64 L MCH 20 L RDW 27.3 H Plt Count Seg Neuts % (Manual) Lymphocytes % (Manual) Nucleated RBC % Seg Neutrophils # Man Lymphocytes # (Manual) Percent Retic Fibrinogen ABG pH 7.465 H POC ABG pO2 ABG pO2 104.3 H ABG HCO3 39.4 H ABG O2 Saturation ABG Base Excess 14.3 H ABG Hemoglobin 6.7 L Oxyhemoglobin Carboxyhemoglobin Sodium Potassium Chloride Carbon Dioxide BUN Creatinine Glucose POC Glucose 160 H Hemoglobin A1c Lactic Acid Calcium Phosphorus Magnesium Direct Bilirubin AST ALT Alkaline Phosphatase Lactate Dehydrogenase Total Protein Albumin Urine pH Ur Specific [place] Urine Blood Urine WBC (Auto) Vancomycin Trough Crossmatch 02/13/22 02/13/22 02/13/22 04:00 06:05 09:41 WBC RBC Hgb Hct MCV MCH RDW Plt Count Seg Neuts % (Manual) Lymphocytes % (Manual) Nucleated RBC % Seg Neutrophils # Man Lymphocytes # (Manual) Percent Retic Fibrinogen ABG pH POC ABG pO2 ABG pO2 ABG HCO3 ABG O2 Saturation ABG Base Excess ABG Hemoglobin Oxyhemoglobin Carboxyhemoglobin Sodium 146 H Potassium Chloride Carbon Dioxide 38 H BUN 25 H Creatinine 0.4 L Glucose 235 H POC Glucose 283 H Hemoglobin A1c Lactic Acid Calcium 8.0 L Phosphorus Magnesium Direct Bilirubin AST ALT 58 H Alkaline Phosphatase 143 H Lactate Dehydrogenase Total Protein 4.7 L Albumin 2.2 L Urine pH Ur Specific [place] Urine Blood Urine WBC (Auto) Vancomycin Trough Crossmatch See Detail 02/13/22 02/13/22 02/13/22 11:37 18:30 21:47 WBC RBC Hgb Hct MCV MCH RDW Plt Count Seg Neuts % (Manual) Lymphocytes % (Manual) Nucleated RBC % Seg Neutrophils # Man Lymphocytes # (Manual) Percent Retic Fibrinogen ABG pH POC ABG pO2 ABG pO2 ABG HCO3 ABG O2 Saturation ABG Base Excess ABG Hemoglobin Oxyhemoglobin Carboxyhemoglobin Sodium Potassium Chloride Carbon Dioxide BUN Creatinine Glucose POC Glucose 132 H 187 H 279 H Hemoglobin A1c Lactic Acid Calcium Phosphorus Magnesium Direct Bilirubin AST ALT Alkaline Phosphatase Lactate Dehydrogenase Total Protein Albumin Urine pH Ur Specific [place] Urine Blood Urine WBC (Auto) Vancomycin Trough Crossmatch 02/14/22 02/14/22 02/14/22 01:07 04:35 04:40 WBC 24.5 H RBC Hgb 9.4 L Hct 28.8 L D MCV 69 L MCH 23 L RDW 30.3 H Plt Count Seg Neuts % (Manual) Lymphocytes % (Manual) Nucleated RBC % Seg Neutrophils # Man Lymphocytes # (Manual) Percent Retic Fibrinogen ABG pH 7.484 H POC ABG pO2 ABG pO2 101.5 H ABG HCO3 35.8 H ABG O2 Saturation ABG Base Excess 11.1 H ABG Hemoglobin 9.4 L Oxyhemoglobin Carboxyhemoglobin Sodium Potassium Chloride Carbon Dioxide BUN Creatinine Glucose POC Glucose 267 H Hemoglobin A1c Lactic Acid Calcium Phosphorus Magnesium Direct Bilirubin AST ALT Alkaline Phosphatase Lactate Dehydrogenase Total Protein Albumin Urine pH Ur Specific [place] Urine Blood Urine WBC (Auto) Vancomycin Trough Crossmatch 02/14/22 02/14/22 02/14/22 06:16 09:03 11:20 WBC RBC Hgb Hct MCV MCH RDW Plt Count Seg Neuts % (Manual) Lymphocytes % (Manual) Nucleated RBC % Seg Neutrophils # Man Lymphocytes # (Manual) Percent Retic Fibrinogen ABG pH POC ABG pO2 ABG pO2 ABG HCO3 ABG O2 Saturation ABG Base Excess ABG Hemoglobin Oxyhemoglobin Carboxyhemoglobin Sodium Potassium Chloride Carbon Dioxide 39 H BUN 20 H Creatinine 0.4 L Glucose 144 H POC Glucose 183 H 42 L Hemoglobin A1c Lactic Acid Calcium 8.3 L Phosphorus Magnesium Direct Bilirubin AST ALT Alkaline Phosphatase Lactate Dehydrogenase Total Protein Albumin Urine pH Ur Specific [place] Urine Blood Urine WBC (Auto) Vancomycin Trough Crossmatch 02/14/22 02/14/22 02/14/22 18:07 18:10 18:36 WBC RBC Hgb Hct MCV MCH RDW Plt Count Seg Neuts % (Manual) Lymphocytes % (Manual) Nucleated RBC % Seg Neutrophils # Man Lymphocytes # (Manual) Percent Retic Fibrinogen ABG pH 7.518 H POC ABG pO2 ABG pO2 97.1 H ABG HCO3 38.8 H ABG O2 Saturation ABG Base Excess 13.8 H ABG Hemoglobin Oxyhemoglobin Carboxyhemoglobin Sodium Potassium Chloride Carbon Dioxide BUN Creatinine Glucose POC Glucose 29 L 143 H Hemoglobin A1c Lactic Acid Calcium Phosphorus Magnesium Direct Bilirubin AST ALT Alkaline Phosphatase Lactate Dehydrogenase Total Protein Albumin Urine pH Ur Specific [place] Urine Blood Urine WBC (Auto) Vancomycin Trough Crossmatch 02/14/22 02/15/22 02/15/22 23:44 03:31 05:23 WBC 20.1 H RBC Hgb 8.4 L Hct 26.6 L MCV 69 L MCH 22 L RDW 31.5 H Plt Count Seg Neuts % (Manual) Lymphocytes % (Manual) Nucleated RBC % Seg Neutrophils # Man Lymphocytes # (Manual) Percent Retic Fibrinogen ABG pH POC ABG pO2 ABG pO2 ABG HCO3 ABG O2 Saturation ABG Base Excess ABG Hemoglobin Oxyhemoglobin Carboxyhemoglobin Sodium Potassium Chloride Carbon Dioxide BUN Creatinine Glucose POC Glucose 229 H 232 H Hemoglobin A1c Lactic Acid Calcium Phosphorus Magnesium Direct Bilirubin AST ALT Alkaline Phosphatase Lactate Dehydrogenase Total Protein Albumin Urine pH Ur Specific [place] Urine Blood Urine WBC (Auto) Vancomycin Trough Crossmatch 02/15/22 02/15/22 02/15/22 11:32 17:41 23:24 WBC RBC Hgb Hct MCV MCH RDW Plt Count Seg Neuts % (Manual) Lymphocytes % (Manual) Nucleated RBC % Seg Neutrophils # Man Lymphocytes # (Manual) Percent Retic Fibrinogen ABG pH POC ABG pO2 ABG pO2 ABG HCO3 ABG O2 Saturation ABG Base Excess ABG Hemoglobin Oxyhemoglobin Carboxyhemoglobin Sodium Potassium Chloride Carbon Dioxide BUN Creatinine Glucose POC Glucose 160 H 211 H 261 H Hemoglobin A1c Lactic Acid Calcium Phosphorus Magnesium Direct Bilirubin AST ALT Alkaline Phosphatase Lactate Dehydrogenase Total Protein Albumin Urine pH Ur Specific [place] Urine Blood Urine WBC (Auto) Vancomycin Trough Crossmatch 02/16/22 02/16/22 02/16/22 04:36 04:36 05:11 WBC 17.3 H RBC Hgb 8.1 L Hct 26.6 L MCV 70 L MCH 21 L RDW 30.8 H Plt Count Seg Neuts % (Manual) Lymphocytes % (Manual) Nucleated RBC % Seg Neutrophils # Man Lymphocytes # (Manual) Percent Retic Fibrinogen ABG pH POC ABG pO2 ABG pO2 ABG HCO3 ABG O2 Saturation ABG Base Excess ABG Hemoglobin Oxyhemoglobin Carboxyhemoglobin Sodium Potassium Chloride Carbon Dioxide 34 H BUN 20 H Creatinine 0.4 L Glucose 206 H POC Glucose 198 H Hemoglobin A1c Lactic Acid Calcium 7.7 L Phosphorus Magnesium Direct Bilirubin AST ALT Alkaline Phosphatase Lactate Dehydrogenase Total Protein Albumin Urine pH Ur Specific [place] Urine Blood Urine WBC (Auto) Vancomycin Trough Crossmatch 02/16/22 02/16/22 02/17/22 11:25 16:29 00:16 WBC RBC Hgb Hct MCV MCH RDW Plt Count Seg Neuts % (Manual) Lymphocytes % (Manual) Nucleated RBC % Seg Neutrophils # Man Lymphocytes # (Manual) Percent Retic Fibrinogen ABG pH POC ABG pO2 ABG pO2 ABG HCO3 ABG O2 Saturation ABG Base Excess ABG Hemoglobin Oxyhemoglobin Carboxyhemoglobin Sodium Potassium Chloride Carbon Dioxide BUN Creatinine Glucose POC Glucose 130 H 182 H 220 H Hemoglobin A1c Lactic Acid Calcium Phosphorus Magnesium Direct Bilirubin AST ALT Alkaline Phosphatase Lactate Dehydrogenase Total Protein Albumin Urine pH Ur Specific [place] Urine Blood Urine WBC (Auto) Vancomycin Trough Crossmatch 02/17/22 02/17/22 02/17/22 05:00 05:06 05:58 WBC RBC Hgb Hct MCV MCH RDW Plt Count Seg Neuts % (Manual) Lymphocytes % (Manual) Nucleated RBC % Seg Neutrophils # Man Lymphocytes # (Manual) Percent Retic Fibrinogen ABG pH 7.463 H POC ABG pO2 ABG pO2 113.6 H ABG HCO3 32.8 H ABG O2 Saturation ABG Base Excess 8.1 H ABG Hemoglobin 8.0 L Oxyhemoglobin Carboxyhemoglobin Sodium Potassium Chloride Carbon Dioxide 34 H BUN 22 H Creatinine 0.4 L Glucose 314 H POC Glucose 269 H Hemoglobin A1c Lactic Acid Calcium 8.1 L Phosphorus Magnesium Direct Bilirubin AST ALT Alkaline Phosphatase Lactate Dehydrogenase Total Protein 5.4 L Albumin 2.5 L Urine pH Ur Specific [place] Urine Blood Urine WBC (Auto) Vancomycin Trough Crossmatch 02/17/22 02/17/22 02/17/22 11:18 16:41 21:51 WBC RBC Hgb Hct MCV MCH RDW Plt Count Seg Neuts % (Manual) Lymphocytes % (Manual) Nucleated RBC % Seg Neutrophils # Man Lymphocytes # (Manual) Percent Retic Fibrinogen ABG pH POC ABG pO2 ABG pO2 ABG HCO3 ABG O2 Saturation ABG Base Excess ABG Hemoglobin Oxyhemoglobin Carboxyhemoglobin Sodium Potassium Chloride Carbon Dioxide BUN Creatinine Glucose POC Glucose 135 H 248 H 266 H Hemoglobin A1c Lactic Acid Calcium Phosphorus Magnesium Direct Bilirubin AST ALT Alkaline Phosphatase Lactate Dehydrogenase Total Protein Albumin Urine pH Ur Specific [place] Urine Blood Urine WBC (Auto) Vancomycin Trough Crossmatch 02/17/22 02/18/22 02/18/22 23:38 01:04 04:00 WBC 14.8 H RBC Hgb 8.3 L Hct 27.3 L MCV 71 L MCH 22 L RDW 30.5 H Plt Count Seg Neuts % (Manual) Lymphocytes % (Manual) Nucleated RBC % Seg Neutrophils # Man Lymphocytes # (Manual) Percent Retic Fibrinogen ABG pH POC ABG pO2 ABG pO2 ABG HCO3 ABG O2 Saturation ABG Base Excess ABG Hemoglobin Oxyhemoglobin Carboxyhemoglobin Sodium Potassium Chloride Carbon Dioxide BUN Creatinine Glucose POC Glucose 287 H 272 H Hemoglobin A1c Lactic Acid Calcium Phosphorus Magnesium Direct Bilirubin AST ALT Alkaline Phosphatase Lactate Dehydrogenase Total Protein Albumin Urine pH Ur Specific [place] Urine Blood Urine WBC (Auto) Vancomycin Trough Crossmatch 02/18/22 02/18/22 02/18/22 04:00 05:38 11:27 WBC RBC Hgb Hct MCV MCH RDW Plt Count Seg Neuts % (Manual) Lymphocytes % (Manual) Nucleated RBC % Seg Neutrophils # Man Lymphocytes # (Manual) Percent Retic Fibrinogen ABG pH POC ABG pO2 ABG pO2 ABG HCO3 ABG O2 Saturation ABG Base Excess ABG Hemoglobin Oxyhemoglobin Carboxyhemoglobin Sodium Potassium Chloride Carbon Dioxide 32 H BUN 20 H Creatinine 0.3 L Glucose 132 H POC Glucose 117 H 44 L Hemoglobin A1c Lactic Acid Calcium Phosphorus Magnesium Direct Bilirubin AST ALT Alkaline Phosphatase Lactate Dehydrogenase Total Protein Albumin Urine pH Ur Specific [place] Urine Blood Urine WBC (Auto) Vancomycin Trough Crossmatch 02/18/22 02/18/22 02/18/22 11:29 11:49 13:41 WBC RBC Hgb Hct MCV MCH RDW Plt Count Seg Neuts % (Manual) Lymphocytes % (Manual) Nucleated RBC % Seg Neutrophils # Man Lymphocytes # (Manual) Percent Retic Fibrinogen ABG pH POC ABG pO2 ABG pO2 ABG HCO3 ABG O2 Saturation ABG Base Excess ABG Hemoglobin Oxyhemoglobin Carboxyhemoglobin Sodium Potassium Chloride Carbon Dioxide BUN Creatinine Glucose POC Glucose 50 L 216 H 128 H Hemoglobin A1c Lactic Acid Calcium Phosphorus Magnesium Direct Bilirubin AST ALT Alkaline Phosphatase Lactate Dehydrogenase Total Protein Albumin Urine pH Ur Specific [place] Urine Blood Urine WBC (Auto) Vancomycin Trough Crossmatch 02/18/22 02/19/22 02/19/22 21:37 00:45 06:05 WBC RBC Hgb Hct MCV MCH RDW Plt Count Seg Neuts % (Manual) Lymphocytes % (Manual) Nucleated RBC % Seg Neutrophils # Man Lymphocytes # (Manual) Percent Retic Fibrinogen ABG pH POC ABG pO2 ABG pO2 ABG HCO3 ABG O2 Saturation ABG Base Excess ABG Hemoglobin Oxyhemoglobin Carboxyhemoglobin Sodium Potassium Chloride Carbon Dioxide BUN Creatinine Glucose POC Glucose 119 H 131 H 149 H Hemoglobin A1c Lactic Acid Calcium Phosphorus Magnesium Direct Bilirubin AST ALT Alkaline Phosphatase Lactate Dehydrogenase Total Protein Albumin Urine pH Ur Specific [place] Urine Blood Urine WBC (Auto) Vancomycin Trough Crossmatch 02/19/22 02/19/22 02/19/22 06:10 06:10 11:49 WBC 21.4 H RBC Hgb 8.7 L Hct 28.0 L MCV 69 L MCH 22 L RDW 30.9 H Plt Count 466 H Seg Neuts % (Manual) Lymphocytes % (Manual) Nucleated RBC % Seg Neutrophils # Man Lymphocytes # (Manual) Percent Retic Fibrinogen ABG pH POC ABG pO2 ABG pO2 ABG HCO3 ABG O2 Saturation ABG Base Excess ABG Hemoglobin Oxyhemoglobin Carboxyhemoglobin Sodium Potassium Chloride Carbon Dioxide BUN Creatinine 0.3 L Glucose 143 H POC Glucose 20 L Hemoglobin A1c Lactic Acid Calcium Phosphorus Magnesium Direct Bilirubin AST ALT Alkaline Phosphatase Lactate Dehydrogenase Total Protein Albumin Urine pH Ur Specific [place] Urine Blood Urine WBC (Auto) Vancomycin Trough Crossmatch 02/19/22 02/19/22 02/19/22 11:51 12:37 16:47 WBC RBC Hgb Hct MCV MCH RDW Plt Count Seg Neuts % (Manual) Lymphocytes % (Manual) Nucleated RBC % Seg Neutrophils # Man Lymphocytes # (Manual) Percent Retic Fibrinogen ABG pH POC ABG pO2 ABG pO2 ABG HCO3 ABG O2 Saturation ABG Base Excess ABG Hemoglobin Oxyhemoglobin Carboxyhemoglobin Sodium Potassium Chloride Carbon Dioxide BUN Creatinine Glucose POC Glucose 26 L 159 H 54 L Hemoglobin A1c Lactic Acid Calcium Phosphorus Magnesium Direct Bilirubin AST ALT Alkaline Phosphatase Lactate Dehydrogenase Total Protein Albumin Urine pH Ur Specific [place] Urine Blood Urine WBC (Auto) Vancomycin Trough Crossmatch 02/19/22 02/19/22 02/20/22 18:15 23:37 04:22 WBC 19.1 H RBC 3.43 L Hgb 7.4 L Hct 24.3 L MCV 71 L MCH 22 L RDW 30.0 H Plt Count Seg Neuts % (Manual) Lymphocytes % (Manual) Nucleated RBC % Seg Neutrophils # Man Lymphocytes # (Manual) Percent Retic Fibrinogen ABG pH POC ABG pO2 ABG pO2 ABG HCO3 ABG O2 Saturation ABG Base Excess ABG Hemoglobin Oxyhemoglobin Carboxyhemoglobin Sodium Potassium Chloride Carbon Dioxide BUN Creatinine Glucose POC Glucose 176 H Hemoglobin A1c Lactic Acid Calcium Phosphorus Magnesium Direct Bilirubin AST ALT Alkaline Phosphatase Lactate Dehydrogenase Total Protein Albumin Urine pH 8.0 H Ur Specific [place] 1.000 L Urine Blood Urine WBC (Auto) Vancomycin Trough Crossmatch 02/20/22 02/20/22 04:22 06:08 WBC RBC Hgb Hct MCV MCH RDW Plt Count Seg Neuts % (Manual) Lymphocytes % (Manual) Nucleated RBC % Seg Neutrophils # Man Lymphocytes # (Manual) Percent Retic Fibrinogen ABG pH POC ABG pO2 ABG pO2 ABG HCO3 ABG O2 Saturation ABG Base Excess ABG Hemoglobin Oxyhemoglobin Carboxyhemoglobin Sodium Potassium 3.3 L D Chloride Carbon Dioxide BUN Creatinine 0.3 L Glucose 223 H POC Glucose 195 H Hemoglobin A1c Lactic Acid Calcium 8.3 L Phosphorus Magnesium Direct Bilirubin AST ALT Alkaline Phosphatase Lactate Dehydrogenase Total Protein Albumin Urine pH Ur Specific [place] Urine Blood Urine WBC (Auto) Vancomycin Trough Crossmatch
--- NOTE | 2022-02-20 11:12 | Vascular Lab Report ---
DUPLEX DOPPLER LOWER EXTREMITY VEINS, BILATERAL INDICATION / CLINICAL INFORMATION: pe. TECHNIQUE: Duplex doppler imaging was performed through the veins of both lower extremities using rylie ous compression and other maneuvers. COMPARISON: None available. FINDINGS: RIGHT COMMON FEMORAL VEIN: Acute thrombus. Thrombus is nonocclusive. RIGHT FEMORAL VEIN: Negative. RIGHT POPLITEAL VEIN: Negative. RIGHT CALF VEINS: Negative. LEFT COMMON FEMORAL VEIN: Negative. LEFT FEMORAL VEIN: Negative. LEFT POPLITEAL VEIN: Negative. LEFT CALF VEINS: Negative. ADDITIONAL FINDINGS: None. IMPRESSION: 1. There is acute nonocclusive DVT in the right common femoral vein. IMPORTANT FINDING: Time of Communication (CATTLE TRADER/CDT): 08 55 Licensed Practitioner Receiving Report: CHRIS Bansal Signer Name: Baljit Solorio MD Signed: 02/20/2022 11:08 AM Workstation Name: [id number]
[2022-02-20] MEDS ORDERED: METOPROLOL TARTRATE 5 MG/5 ML INJ IV SCH (11:30)
[2022-02-20] MEDS ORDERED: SODIUM CHLORIDE 0.9% 500 ML 500 ML IV SCH (12:00)
--- NOTE | 2022-02-20 13:00 | Progress Note ---
Assessment and Plan 61 yo F s/p percutaneous tracheostomy, fiberoptic bronchoscopy, PEG tube placement, POD 2 1. VDRF Vent: FIO2 30%, PEEP 6 CTA Abdomen/Pelvis reviewed independently - bowel is unremarkable. PEG in stomach Plan: 1. Vent management per ICU team 2. Trach care 3. Resume TF at 10 per hr today. If tolerates, then may be advanced slowly to go al tomorrow 4. Fevers -? etiology. Was having intermittent fever before surgery and persistent leukocytosis. ID on board 5. DVT ppx Will s/o Thank you, please call with questions. Evaluation and treatment of this patient was during the time of the national and state emergency arising from COVID19 coronavirus pandemic. Treatment and procedures performed meet the current and available best practice and guidelines for patient during the COVID pandemic. Subjective Date of service: 02/20/22 Narrative: Pt seen and examined. No acute events. Tm 101.2 overnight. No further n/v. gastric drainage 150cc over 12hrs Objective Vital Signs - 12hr 02/20/22 02/20/22 02/20/22 01:00 02:00 03:00 Temperature Pulse Rate 115 H 110 H 109 H Respiratory 24 15 21 Rate Blood Pressure 124/84 118/78 123/77 O2 Sat by Pulse Oximetry O2 Sat by Pulse Oximetry [ Assessment] 02/20/22 02/20/22 02/20/22 03:49 03:52 04:00 Temperature 100.8 F H Pulse Rate 110 H 110 H Respiratory 20 Rate Blood Pressure 123/77 118/79 O2 Sat by Pulse 100 100 100 Oximetry O2 Sat by Pulse Oximetry [ Assessment] 02/20/22 02/20/22 02/20/22 05:00 06:00 07:00 Temperature Pulse Rate 108 H 105 H 102 H Respiratory 25 H 18 20 Rate Blood Pressure 120/80 115/77 122/79 O2 Sat by Pulse 100 100 99 Oximetry O2 Sat by Pulse Oximetry [ Assessment] 02/20/22 02/20/22 02/20/22 08:00 08:35 08:40 Temperature 97.5 F L Pulse Rate 107 H 116 H Respiratory 28 H Rate Blood Pressure 130/83 130/83 O2 Sat by Pulse 100 97 Oximetry O2 Sat by Pulse 94 Oximetry [ Assessment] 02/20/22 02/20/22 02/20/22 09:00 10:00 11:00 Temperature Pulse Rate 116 H 125 H 150 H Respiratory 29 H 26 H 26 H Rate Blood Pressure 130/83 202/154 149/81 O2 Sat by Pulse 97 89 98 Oximetry O2 Sat by Pulse Oximetry [ Assessment] 02/20/22 12:00 Temperature 98.4 F Pulse Rate 134 H Respiratory 28 H Rate Blood Pressure 134/85 O2 Sat by Pulse 99 Oximetry O2 Sat by Pulse Oximetry [ Assessment] - General physical appearance Narrative Exam: Gen.: Arousable on vent but does not follow commands. On sedation. No apparent distress ENT: Trachea midline. Trach in place with dressing c/d/i. No swelling, hematoma, bleeding CV: S1, S2 present Respiratory: No audible wheezes Abdomen: Soft, mildly distended, nontender. Multiple well healed surgical scars - midline/exlap and lap. PEG in place with bumper at 2 cm at skin, without tension or bleeding. No rebound, rigidity, guarding Extremities: No clubbing, cyanosis, edema - Labs 02/20/22 04:22 02/20/22 04:22 Diabetes panel 02/20/22 Range/Units 04:22 Sodium 140 (137-145) mmol/L Potassium 3.3 L D (3.6-5.0) mmol/L Chloride 103.8 (98-107) mmol/L Carbon Dioxide 25 (22-30) mmol/L BUN 8 (7-17) mg/dL Creatinine 0.3 L (0.6-1.2) mg/dL Glucose 223 H (65-100) mg/dL Calcium 8.3 L (8.4-10.2) mg/dL Calcium panel 02/20/22 Range/Units 04:22 Calcium 8.3 L (8.4-10.2) mg/dL Pituitary panel 02/20/22 Range/Units 04:22 Sodium 140 (137-145) mmol/L Potassium 3.3 L D (3.6-5.0) mmol/L Chloride 103.8 (98-107) mmol/L Carbon Dioxide 25 (22-30) mmol/L BUN 8 (7-17) mg/dL Creatinine 0.3 L (0.6-1.2) mg/dL Glucose 223 H (65-100) mg/dL Calcium 8.3 L (8.4-10.2) mg/dL Adrenal panel 02/20/22 Range/Units 04:22 Sodium 140 (137-145) mmol/L Potassium 3.3 L D (3.6-5.0) mmol/L Chloride 103.8 (98-107) mmol/L Carbon Dioxide 25 (22-30) mmol/L BUN 8 (7-17) mg/dL Creatinine 0.3 L (0.6-1.2) mg/dL Glucose 223 H (65-100) mg/dL Calcium 8.3 L (8.4-10.2) mg/dL
--- NOTE | 2022-02-20 15:07 | Progress Note ---
<NICOLA TREVINO - Last Filed: 02/20/22 19:44> Assessment and Plan Assessment and plan: This is a 61-year-old female with known past medical history of DM, dementia, HLD, and HTN initially admitted for Hypoglycemia then went into DKA and was transferred to the ICU where she PEA arrested on 02/01. Patient is now with septic shock and on ventilatory support. Hospital Course to Date: 02/01: patient was transferred to ICU as lab work was consistent with DKA and started on insulin drip. Central line placed for IV access. Patient was given bicarb push and started on a bicarb drip. She was also started on Rocephin due to UTI however antibiotics are broadened to cefepime and vancomycin. 02/02: s/p cardiac arrest on 02/01. Bicarbonate drip discontinued. Pancytopenia noted, anion gap closed and transitioned to SSI and long-acting insulin. Patient was having hypoglycemia this morning which has been corrected now. Started on tube feeding. Potassium and phosphorus will be repleted. Hype rnatremia noted and FWF started with tube feedings. COVID-19 PCR pending. Venous Doppler ultrasound pending. Neurology and cardiology consulted. Echocardiogram pending. Patient currently on Levophed and sedated with propofol. Fentanyl added. Given 1 LR bolus this morning for hypotension. 02/03: LR bolus x2, remains on levophed, tachycardia and EKG completed which shows tachycardia. Increase in FiO2, Will culture with next temp spike. Will give 1 gm Calcium Gluconate. 02/04: S/p Bronch this am by [facility] at the bedside. Patient still spiking high temp despite broad spectrum IV Abx. Remains on high pressors with worsen neutropenia and thrombocytopenia. Will panculture this am, antifungal culture was also ordered. Continue current empiric IV Abx for now, awaiting sensitivity. Will also consult ID for further eval. Possible Hematology consult for pancytopenia per CCM. Possible family meeting with [facility] this week, case management to arrange. 02/05: Back up on full support on the vent. CXR with worsen bilateral opacities, S/p X1 dose of IV lasix. Patient also received 1units of PRBCs overnight due to anemia, H&H stable this am and no s/s of any active bleeding. Patient remains pancytopenic, still febrile. IV abx changed to Merrem and Vanc per ID, hematology consult pending. ST with episodes of SVT this am, plan for amiodarone gtt per Cardio. Off pressors this am. BP remains boderline, 25% IV Albumin and X1 dose of additional IV lasix gain today per CCM. Continue FWF for hypernatremi a. Lantus adjusted due to hypoglycemia. Possible family meeting tomorrow with [facility]. 8/3: Decompensated this am, sudden drop in SPO2 in the 80s, HR in the 50s, and MAP in the 40s. Back on 2 pressors, on 100% FIO2 and 12 of peep. Stat ABG pending, 1amp Bcarb given, stress dose steroids initiated. This an CXR reviewed with worsen opacities from prior. Patient remains on IV abx per ID. Hematology recommendations appreciated. Event discussed with [facility] who agreed with current intervention. Patient's daughter and sister were notified via phone. Current events, patient's diagnosis, overal condition, and poor prognosis were thoroughly discussed. GOC was also addressed with patient's daughter and sister, they voiced that if patient was able to speak for herself she would want all lifesaving measures, including CPR and medications if her heart stop. All questions and concerns were addressed at this time. They verbalized understanding and agreed with current care plan. Patient remains a FULL code status at This time. 84: Responded well to IV lasix and albumin overnight. CXR with some improvement today. IV lasix and albumin gain today per CCM. With increased WOB and tachpnea this am, low dose propofol added for RASS goal of 0 to -2. Wean FIO2 as tolerated for SPO2 goal above 92%. Worsen hyperglycemia this am, most like due to IV steroids, insulin therapy adjusted. Monitor and replace electrolytes as needed. Family meeting today with [facility], patient remains a FULL code status. 85: Tolerating gentle diurese. Patient missed overnight IV lasix/albumin dose, will repeat another dose this morning. Continue to wean Fio2 as tolerated. Remains off pressors, VSS. Concern for BLE ischemia probably due to hypoperfusion vs pressor use. Will check BLE arterial doppler to r/o occlusion. Possible Vascular Surgery consult dependent on doppler result. Lantus adjusted for persisting hyperglycemia. Electrolytes repleted, monitor and replace electrolytes as needed. 86: This am ABG and CXR with some improvement this am. Down to 55% Fio2 this am. Hypotensive overnight required short duration of Levophed gtt, pressor is off this am. Will hold on IV diuretic today. Continue to monitor for now. Electrolytes repleted, monitor and replace electrolytes as needed. Prior history of psych issues, seroquel added BID. BLE doppler pending. 02/10: Remains stable on the vent. Down to 40% Fio2 and peep of 10 this am, SPO2 above 95%, CXR is unchanged. Continue vent wean as tolerated. Remains on IV steroid, will start tapering tomorrow. Per [facility], plan is to optimize patient on the vent for possible trach and PEG. FWF increased for persistent hypernatremia. K and phos repleted. Continue to monitor and replace electrolytes as needed. 02/11: Water flush continued at 300 mL every 4, potassium repleted, remains on vasopressors. No acute events reported overnight. intiate seriod taper 02/12: Patient being weaned down IV fentanyl pushes ordered, Lantus decreased, decreased PEEP and RT placed on pressure support this afternoon. No acute events overnight. 02/13: Patient attempted on PSV again today, steroids continue to be tapered. Tentative extubation tomorrow was supplanted by [facility]. Patient only lasted 3 hours again today. Vascular surgery consult completed and recommended plavix. 02/14: Patient was extubated today to nasal cannula. This afternoon she was started on high flow nasal cannula. No acute events reported overnight. Steroids tapered. Femoral A-line removed. 02/15: No acute events reported overnight. Surgery consulted for trach/PEG.. COVID-[address] abdomen/pelvis pending. Possible trach/PEG placement on 02/18. 02/16: PICC line to be placed today. Given 1 dose of albumin with Lasix. Discontinue CVL. No acute events reported overnight. 02/17: No acute events reported overnight, now bilateral lower extremities with discoloration. Plavix scheduled to start Friday. PEG/trach scheduled for Friday. PICC line consent obtained. lantus adjusted. CPAP today. 02/18: KYLAH overnight. Plan for trach and PEG today by General Surgery in OR. Worsen LE ischemia noted, pending CTA chest/Abd/pelvis. Vascular Surgery is also following. 02/19: s/p Trach and PEG yesterday. Patient did not tolerate TF overnight, projectile vomitting reported. TF currently on hold, KUB is unremarkable. Scheduled reglan added, will hold TF for now. High fevers with worsen leukocytosis this am, will panculture for now. ST, HR in the 130s this am, BP stable. 1L of IVF bolus given, will hold IV Abx for now. Will added low rate D10w for now for hypoglycemia, most likely due to NPO status. Will also hold Lantus, resume once TF is tolerated. CTA chest/ABd/Pelvis still pendinf, awaiting Vascular surgery final recommendation for mitchell ischemia. 02/20: Remains stable on the vent, AAO, following commands this am. CTA chest reveal incidental PE, BLE doppler also positive DVT in right common femoral vein. Therapeutic Lovenox initiated. Still with persistent fevers, repeat cultures with no growth to date. Fevers probably secondary to DVT/PE. T achycardic in the 140s this am, 500 cc of IVF bolus administered, HR improved in the 100- 110s, VSS. Vomiting resolved, resume TF as ordered. Awaiting Vascular surgery final recommendation for limb ischemia. Assessment and Plan #Septic Shock #Supraventricular Tachycardia(SVT) #S/p PEA Arrest with ROSC #H/o HTN, HLD - Coded in the ICU on 02/01, PEA arrest - ROSC achieved post 1amp of bcarb and EPI - With tachycardia, persistent fevers, s/p multiple pressors - off pressors this am. ST on the monitor, VSS - On Stress dose steroids- tapering - Echo reviewed, EF 55-60%, see report for detail - Cardiology consulted, appreciated recommendations - amiodarone gtt transitioned to PO per Cardio - Continue blood pressure monitor per protocol - Pressor on standby for MAP less than 65 #Acute Hypoxic Respiratory Failure #ARDS #Bilateral Pneumonia - Intubated during code on 02/01 - This am CXR with worsening bilateral airspace opacities - 02/04 s/p Bronchoscopy at the bedside by [facility]- BAL sent to lab - 02/18 s/p Trach and PEG-Tube placement - Vent setting: PRVC-30%,6,12,350 - s/p albumin and IV lasix - CCM consulted, appreciate recommendations - Continue vent wean per CCM - VAP bundle addressed - Aspiration precaution HOB above 30 - Daily ABG and CXR - Continue SPO2 monitoring for SPO2 goal above 92% - Per CCM, plan is to optimize patient on the vent for possible trach and PEG #Persistent Fevers #Septic Shock #Bilateral Pneumonia #Urinary Tract Infection(UTI) - UA consistent with pyuria, Blood cultures with NGTD, Sputum culture with Klebsiella Pneumoniae, repeat cultures with NGTD - Completed Iv Abx course per ID - Now with high fevers and worsen leukocytosis - Cultures with NGTD - Fevers probably secondary to DVT/PE. - hold off on IV abx for now - f/u on culture - Monitor CBC and temperature curve - ID signed off. Reconsult if cultures + #Microcytic Anemia #Pancytopenia-Resolved - Significant drop of WBCs and Plt count from admit - Probably due to septic shock, on IV Abx per ID - S/p 2unit PRBCs - No s/s of active bleeding, H&H stable this am - Continue to trend CBC - Hematology signed off #Acute Metabolic Encephalopathy #h/o Dementia and Psych Issues - Intubated and Sedated- on fentanyl - Titrate sedations for RASS goal of 0 to -2 - Seroquel added BID - Daily SAT and SBT per CCM - Avoid benzodiazepine to reduce the possibility of delirium - PRN Analgesia for CPOT greater than 3 - Maintenance of sleep-wake cycle - Neurology consulted, appreciate recommendations #Acute Pulmonary Emboli #Acute RLE DVT - CTA chest reveal incidental small nonocclusive PE - BLE doppler positive DVT DVT in right common femoral vein - Therapeutic Lovenox initiated #Hypokalemia #Hypernatremia - Strict intake and output - Avoid nephrotoxic medications - Monitor and replace electrolytes as needed #BLE Ischemia - probably due to hypoperfusion vs pressor use. - BLE arterial doppler noted - Vascular Surgery consulted - CTA chest/Abd/Plevis reviewed, Awaiting Vascular surgery final recommendations #Type 2 Diabetes mellitus #S/p DKA - initially presented with hypoglycemia then went into DKA - s/p DKA protocol - Hemoglobin A1c 11.1 - Now with hyperglycemia, most likely due to IV steroids - Continue BG and SSI Q6hrs and Lantus qHs- Held due to hypoglycemia - Avoid Hypoglycemia #GI/DVT Prophylaxis - PPI- Pepcid - Lovenox BID - SCDs to bilateral lower extremities while in bed #Advance Care Planning - Patient's diagnosis, overal condition, and poor prognosis were thoroughly d iscussed. GOC was also addressed with patient's daughter and sister, they voiced that if patient was able to speak for herself she would want all lifesaving measures, including CPR and medications if her heart stop. All questions and concerns were addressed at this time. They verbalized understanding and agreed with current care plan. Patient remains a FULL code status at This time. The high probability of a clinically significant, sudden or life threatening deterioration of the [Multiple] system(s) required my full and direct attention, intervention and personal management. The aggregate critical care time was [60] minutes. This time is in addition to time spent performing reported procedures but includes the following: [x] Data Review and interpretation [x] Patient assessment and monitoring of vital signs [x] Documentation [x] Medication orders and management Disposition Plan: ICU Total Time Spent with Patient (Minutes): 60 History Interval history: Patient seen and examined at the bedside. Remains stable, awake and following simple commands. Not on any sedations. Still with persistent fevers, tachycardic this am, VSS. KYLAH overnight Hospitalist Physical - Physical exam Narrative exam: General appearance: Present: no acute distress, other (s/p trach, stable on the vent) - EENT Eyes: Present: PERRLA - Respiratory Respiratory effort: Unlabored Respiratory: bilateral: rhonchi, wheezing - Cardiovascular Rhythm: regular Heart Sounds: Present: S1 & S2 - Extremities Extremities: Abnormal. BLE cold to touch, ischemia. Absent pulses Extremity abnormal: edema - Peripheral Assessment Generalized Edema Type: Pitting Edema Degree: 2+ Capillary Refill: < 3 seconds Skin Temperature: Warm Peripheral Pulses: within normal limits - Abdominal General gastrointestinal: soft, non-distended, normal bowel sounds - Integumentary Integumentary: Present: warm (Weeping) - Psychiatric Psychiatric: Awake and appropriate, cooperative - Neurologic Neurologic: move all extremities, other (AAO, following simple commands) - Allied Health Allied health notes reviewed: nursing, case management - Constitutional Vitals: Temp Pulse Resp BP Pulse Ox 98.4 F 115 H 22 128/85 100 02/20/22 12:00 02/20/22 14:00 02/20/22 14:00 02/20/22 14:00 02/20/22 14:00 HEART Score - HEART Score Troponin: Troponin T < 0.010 ng/mL (0.00-0.029) 02/03/22 16:15 Results - Labs CBC & Chem 7: 02/20/22 04:22 02/20/22 04:22 Labs: Laboratory Last Values WBC 19.1 K/mm3 (4.5-11.0) H 02/20/22 04:22 RBC 3.43 M/mm3 (3.65-5.03) L 02/20/22 04:22 Hgb 7.4 gm/dl (10.1-14.3) L 02/20/22 04:22 Hct 24.3 % (30.3-42.9) L 02/20/22 04:22 MCV 71 fl (79-97) L 02/20/22 04:22 MCH 22 pg (28-32) L 02/20/22 04:22 MCHC 31 % (30-34) 02/20/22 04:22 RDW 30.0 % (13.2-15.2) H 02/20/22 04:22 Plt Count 400 K/mm3 (140-440) 02/20/22 04:22 Lymph % (Auto) Lamp Decorator 02/02/22 04:00 Add Manual Diff Complete 02/03/22 04:00 Total Counted 50 02/03/22 04:00 Seg Neutrophils % Lamp Decorator 02/02/22 04:00 Seg Neuts % (Manual) 76.0 % (40.0-70.0) H 02/03/22 04:00 Band Neutrophils % 18.0 % 02/03/22 04:00 Lymphocytes % (Manual) 2.0 % (13.4-35.0) L 02/03/22 04:00 Reactive Lymphs % (Man) 0 % 02/03/22 04:00 Monocytes % (Manual) 4.0 % (0.0-7.3) 02/03/22 04:00 Eosinophils % (Manual) 0 % (0.0-4.3) 02/03/22 04:00 Basophils % (Manual) 0 % (0.0-1.8) 02/03/22 04:00 Metamyelocytes % 0 % 02/03/22 04:00 Myelocytes % 0 % 02/03/22 04:00 Promyelocytes % 0 % 02/03/22 04:00 Blast Cells % 0 % 02/03/22 04:00 Nucleated RBC % 4.0 % (0.0-0.9) H 02/03/22 04:00 Seg Neutrophils # Man 2.8 K/mm3 (1.8-7.7) 02/03/22 04:00 Band Neutrophils # 0.7 K/mm3 02/03/22 04:00 Lymphocytes # (Manual) 0.1 K/mm3 (1.2-5.4) L 02/03/22 04:00 Abs React Lymphs (Man) 0.0 K/mm3 02/03/22 04:00 Monocytes # (Manual) 0.1 K/mm3 (0.0-0.8) 02/03/22 04:00 Eosinophils # (Manual) 0.0 K/mm3 (0.0-0.4) 02/03/22 04:00 Basophils # (Manual) 0.0 K/mm3 (0.0-0.1) 02/03/22 04:00 Metamyelocytes # 0.0 K/mm3 02/03/22 04:00 Myelocytes # 0.0 K/mm3 02/03/22 04:00 Promyelocytes # 0.0 K/mm3 02/03/22 04:00 Blast Cells # 0.0 K/mm3 02/03/22 04:00 WBC Morphology Not Reportable 02/03/22 04:00 Hypersegmented Neuts Not Reportable 02/03/22 04:00 Hyposegmented Neuts Not Reportable 02/03/22 04:00 Hypogranular Neuts Not Reportable 02/03/22 04:00 Smudge Cells Not Reportable 02/03/22 04:00 Toxic Granulation Not Reportable 02/03/22 04:00 Toxic Vacuolation Not Reportable 02/03/22 04:00 Dohle Bodies Few 02/03/22 04:00 Pelger-Huet Anomaly Not Reportable 02/03/22 04:00 Sung Rods Not Reportable 02/03/22 04:00 Platelet Estimate Consistent w auto 02/03/22 04:00 Clumped Platelets Not Reportable 02/03/22 04:00 Plt Clumps, EDTA Not Reportable 02/03/22 04:00 Large Platelets Not Reportable 02/03/22 04:00 Giant Platelets Not Reportable 02/03/22 04:00 Platelet Satelliting Not Reportable 02/03/22 04:00 Plt Morphology Comment Not Reportable 02/03/22 04:00 RBC Morphology Not Reportable 02/03/22 04:00 Dimorphic RBCs Not Reportable 02/03/22 04:00 Polychromasia Not Reportable 02/03/22 04:00 Hypochromasia 3+ 02/03/22 04:00 Poikilocytosis 2+ 02/03/22 04:00 Anisocytosis 1+ 02/03/22 04:00 Microcytosis 2+ 02/03/22 04:00 Macrocytosis Not Reportable 02/03/22 04:00 Spherocytes Not Reportable 02/03/22 04:00 Pappenheimer Bodies Not Reportable 02/03/22 04:00 Sickle Cells Not Reportable 02/03/22 04:00 Target Cells 1+ 02/03/22 04:00 Tear Drop Cells Few 02/03/22 04:00 Ovalocytes Few 02/03/22 04:00 Helmet Cells Not Reportable 02/03/22 04:00 [place] Bodies Not Reportable 02/03/22 04:00 [place] Rings Not Reportable 02/03/22 04:00 Lesly Cells 1+ 02/03/22 04:00 Bite Cells Not Reportable 02/03/22 04:00 Crenated Cell Not Reportable 02/03/22 04:00 Elliptocytes Few 02/03/22 04:00 Acanthocytes (Spur) Not Reportable 02/03/22 04:00 Rouleaux Not Reportable 02/03/22 04:00 Hemoglobin C Crystals Not Reportable 02/03/22 04:00 Schistocytes Rare 02/03/22 04:00 Malaria parasites Not Reportable 02/03/22 04:00 Percent Retic 0.65 % (0.78-2.58) L 02/08/22 03:55 Sven Bodies Not Reportable 02/03/22 04:00 Hem Pathologist Commnt No 02/03/22 04:00 PT 13.7 Sec. (12.2-14.9) 02/18/22 04:00 INR 0.95 (0.87-1.13) 02/18/22 04:00 APTT 29.5 Sec. (24.2-36.6) 02/16/22 04:36 Fibrinogen 795 mg/dl (211-480) H 02/05/22 08:48 ABG pH 7.463 pH Units (7.350-7.450) H 02/17/22 05:06 POC ABG pCO2 37.3 mmHg (32.0-48.0) 02/02/22 04:49 ABG pCO2 46.8 mm Hg 02/17/22 05:06 POC ABG pO2 79.9 mmHg (83-108) L 02/02/22 04:49 ABG pO2 113.6 mm Hg (80.0-90.0) H 02/17/22 05:06 POC ABG HCO3 30.3 02/02/22 04:49 ABG HCO3 32.8 mmol/L (20.0-26.0) H 02/17/22 05:06 ABG O2 Saturation 98.2 % (95.0-99.0) 02/17/22 05:06 ABG O2 Content 11.0 (0.0-44) 02/17/22 05:06 POC ABG Base Excess 7.1 02/02/22 04:49 ABG Base Excess 8.1 mmol/L (-2.0-3.0) H 02/17/22 05:06 ABG Hemoglobin 8.0 gm/dl (12.0-16.0) L 02/17/22 05:06 ABG Oxyhemoglobin 96.0 (94-98) 02/02/22 04:49 ABG Carboxyhemoglobin 1.7 % (0.0-5.0) 02/17/22 05:06 ABG Methemoglobin 0.5 % (0.0-1.5) 02/17/22 05:06 ABG Sodium Not Reportable 02/02/22 04:49 ABG Potassium Not Reportable 02/02/22 04:49 ABG Chloride Not Reportable 02/02/22 04:49 ABG Glucose Not Reportable 02/02/22 04:49 Oxyhemoglobin 96.0 % (95.0-99.0) 02/17/22 05:06 Carboxyhemoglobin 0.2 (0.5-1.5) L 02/02/22 04:49 FiO2 30 % 02/17/22 05:06 FiO2 % 60.0 02/02/22 04:49 Sodium 140 mmol/L (137-145) 02/20/22 04:22 Potassium 3.3 mmol/L (3.6-5.0) L D 02/20/22 04:22 Chloride 103.8 mmol/L (98-107) 02/20/22 04:22 Carbon Dioxide 25 mmol/L (22-30) 02/20/22 04:22 Anion Gap 15 mmol/L 02/20/22 04:22 BUN 8 mg/dL (7-17) 02/20/22 04:22 Creatinine 0.3 mg/dL (0.6-1.2) L 02/20/22 04:22 Estimated GFR > 60 ml/min 02/20/22 04:22 BUN/Creatinine Ratio 27 % 02/20/22 04:22 Glucose 223 mg/dL (65-100) H 02/20/22 04:22 POC Glucose 195 mg/dL (70-105) H 02/20/22 06:08 Hemoglobin A1c 11.1 % (4-6) H 02/01/22 12:54 Lactic Acid 2.50 mmol/L (0.7-2.0) H* 02/06/22 11:50 Calcium 8.3 mg/dL (8.4-10.2) L 02/20/22 04:22 Phosphorus 3.90 mg/dL (2.5-4.5) 02/15/22 09:12 Magnesium 2.20 mg/dL (1.7-2.3) 02/15/22 09:12 Total Bilirubin 0.50 mg/dL (0.1-1.2) 02/17/22 05:00 Direct Bilirubin < 0.2 mg/dL (0-0.2) 02/13/22 04:00 Indirect Bilirubin 0.1 mg/dL 02/13/22 04:00 AST 38 units/L (5-40) 02/17/22 05:00 ALT 28 units/L (7-56) 02/17/22 05:00 Alkaline Phosphatase 102 units/L (35-129) 02/17/22 05:00 Lactate Dehydrogenase 879 units/L (91-180) H 02/05/22 04:40 Troponin T < 0.010 ng/mL (0.00-0.029) 02/03/22 16:15 Total Protein 5.4 g/dL (6.3-8.2) L 02/17/22 05:00 Albumin 2.5 g/dL (3.9-5) L 02/17/22 05:00 Albumin/Globulin Ratio 0.9 % 02/17/22 05:00 Arterial Blood Glucose Not Reportable 02/02/22 04:49 Urine Color Straw (Yellow) 02/19/22 18:15 Urine Turbidity Clear (Clear) 02/19/22 18:15 Urine pH 8.0 (5.0-7.0) H 02/19/22 18:15 Ur Specific [place] 1.000 (1.003-1.030) L 02/19/22 18:15 Urine Protein 30 mg/dl mg/dL (Negative) 02/19/22 18:15 Urine Glucose (UA) Negative mg/dL (Negative) 02/19/22 18:15 Urine Ketones 5 mg/dL (Negative) 02/19/22 18:15 Urine Blood 1+ (Negative) 02/19/22 18:15 Urine Nitrite Negative (Negative) 02/19/22 18:15 Ur Reducing Substances Not Reportable 02/19/22 18:15 Urine Bilirubin Negative (Negative) 02/19/22 18:15 Urine Ictotest Not Reportable 02/19/22 18:15 Urine Urobilinogen Small mg/dL (<2.0) 02/19/22 18:15 Ur Leukocyte Esterase Negative (Negative) 02/19/22 18:15 Urine WBC (Auto) 2.0 /HPF (0.0-6.0) 02/19/22 18:15 Urine RBC (Auto) 3.0 /HPF (0.0-6.0) 02/19/22 18:15 U Epithel Cells (Auto) 1.0 /HPF (0-13.0) 02/04/22 09:15 Urine Bacteria (Auto) 1+ /HPF (Negative) 02/19/22 18:15 Urine Mucus Few /HPF 02/04/22 09:15 Urine Yeast (Budding) 2+ /HPF 02/04/22 09:15 Vancomycin Trough 28.6 ug/mL (5.0-20.0) H 02/05/22 Unknown Coronavirus (PCR) Negative (Negative) 02/02/22 10:44 SARS-CoV-2 (PCR) Negative (Negative) 02/15/22 09:39 HIV 1&2 Antibody Rapid Non react (Non React) 02/04/22 14:37 HIV P24 Antigen Non react (Non React) 02/04/22 14:37 Blood Type A POSITIVE 02/13/22 09:41 Antibody Screen Negative 02/13/22 09:41 Crossmatch See Detail 02/13/22 09:41 Microbiology: Microbiology 02/19/22 14:51 Peripheral/Venous Blood Culture - Preliminary Culture in Progress 02/19/22 14:51 Peripheral/Venous Blood Culture - Preliminary Culture in Progress Gastelum/IV: Voiding Method External Female Catheter Active Medications - Current Medications Current Medications: Generic Name Dose Route Start Last Admin Trade Name Freq PRN Reason Stop Dose Admin Acetaminophen 650 mg 02/01/22 00:57 02/19/22 12:08 Acetaminophen 325 Mg Tab PO 650 mg Q4H PRN Administration Pain MILD(1-3)/Fever >100.5/ROSADO Acetaminophen 650 mg 02/20/22 02:09 02/20/22 03:35 Acetaminophen 650 Mg Rect Supp MN 650 mg Q6H PRN Administration Fever >101 Albuterol 2.5 mg 02/01/22 00:57 Albuterol 2.5 Mg/3 Ml Nebu IH Q3HRT PRN Shortness Of Breath Lipase/Protease/Amylase 1 each 02/02/22 08:08 Lipase 10,500/Protease 25,000/Amylase 43,750 (Units) Dr Avelar FEEDTUBE PRN PRN For Clogged Feeding Tube Atorvastatin Calcium 20 mg 02/03/22 22:00 02/19/22 21:17 Atorvastatin 20 Mg Tab FEEDTUBE Not Given QHS JAMIL Clopidogrel Bisulfate 75 mg 02/19/22 10:00 02/20/22 09:42 Clopidogrel 75 Mg Tab FEEDTUBE 75 mg QDAY JAMIL Administration Dextrose 50 ml 02/02/22 08:00 02/14/22 18:10 Dextrose 50% In Water (25gm) 50 Ml Syringe IV 50 ml Q30MIN PRN Administration Hypoglycemia Protocol Enoxaparin Sodium 40 mg 02/20/22 22:00 Enoxaparin 40 Mg/0.4 Ml Inj SUB-Q BID JAMIL Protocol Famotidine 20 mg 02/04/22 10:00 02/20/22 09:44 Famotidine 20 Mg Tab FEEDTUBE 20 mg BID JAMIL Administration Fentanyl 50 mcg 02/12/22 10:11 02/20/22 09:41 Fentanyl 100 Mcg/2 Ml Inj IV 50 mcg Q2H PRN Administration VENT SYNCHRONY/AGITATION Hydrophilic Ointment 1 applic 02/01/22 18:52 02/17/22 13:52 Lip Therapy Vaseline TP 1 applic Q2HR PRN Administration Dry Lips Sodium Chloride 500 mls @ 5 mls/hr 02/04/22 03:00 02/19/22 09:51 Nacl 0.9% 500 Ml IV 5 mls/hr DIRECT JAMIL Administration Dextrose 1,000 mls @ 42 mls/hr 02/19/22 13:00 02/20/22 11:40 D10w IV 0 mls/hr DIRECT JAMIL Infusion Insulin Human Regular 0 units 02/02/22 18:00 02/20/22 11:40 Insulin Regular, Human 100 Units/1 Ml SUB-Q Not Given Q6H [facility] Protocol Metoprolol Tartrate 2.5 mg 02/20/22 11:30 02/20/22 11:21 Metoprolol Tartrate 5 Mg/5 Ml Inj IV 02/20/22 15:30 Not Given ONCE@1130 [facility] Mirtazapine 15 mg 02/20/22 22:00 Mirtazapine 15 Mg Tab FEEDTUBE QHS JAMIL Multi-Ingred Cream/Lotion/Oil/Oint 1 applic 02/01/22 18:52 Mineral Oil/Petrolatum, White Ophth Oint 3.5 Gm OU Q4HR PRN Dry Eye(s) Nitroglycerin 0.5 inch 02/11/22 14:00 02/20/22 13:37 Nitroglycerin 2% Oint 1 Gm TP 0.5 inch BIDNTG JAMIL Administration Protocol Ondansetron HCl 4 mg 02/01/22 00:57 02/19/22 06:08 Ondansetron 4 Mg/2 Ml Inj IV 4 mg Q8H PRN Administration Nausea And Vomiting Prednisone 10 mg 02/21/22 10:00 Prednisone 10 Mg Tab PO 02/21/22 10:01 QDAY JAMIL Prednisone 5 mg 02/22/22 10:00 Prednisone 5 Mg Tab FEEDTUBE 02/22/22 10:01 QDAY [facility] Quetiapine Fumarate 50 mg 02/19/22 22:00 02/20/22 09:42 Quetiapine 25 Mg Tab FEEDTUBE 50 mg BID JAMIL Administration Senna/Docusate Sodium 2 tab 02/19/22 22:00 02/20/22 09:42 Sennosides/Docusate Sodium 8.6/50 Mg Tab FEEDTUBE Not Given Q12H JAMIL Simple Syrup 15 ml 02/02/22 08:08 Simple Syrup 15 Ml FEEDTUBE PRN PRN Hypoglycemia Simple Syrup 30 ml 02/02/22 08:08 Simple Syrup 15 Ml FEEDTUBE PRN PRN Hypoglycemia Sodium Bicarbonate 325 mg 02/02/22 08:08 Sodium Bicarbonate 325 Mg Tab FEEDTUBE PRN PRN For Clogged Feeding Tube Sodium Chloride 10 ml 02/01/22 10:00 02/20/22 09:43 Sodium Chloride 0.9% 10 Ml Flush Syringe IV 10 ml BID JAMIL Administration Sodium Chloride 10 ml 02/01/22 00:57 02/09/22 05:59 Sodium Chloride 0.9% 10 Ml Flush Syringe IV 10 ml PRN PRN Administration LINE FLUSH Nutrition/Malnutrition Assess - Dietary Evaluation Nutrition/Malnutrition Findings: Nutrition Notes Start: 02/01/22 17:50 Freq: Status: Active Protocol: Document 02/19/22 14:47 JACQUELINE (Rec: 02/19/22 15:20 JACQUELINE [id number]) Nutrition Notes Need for Assessment generated from: Low BMI Initial or Follow up Reassessment Current Diagnosis Diabetes,Sepsis,Respiratory Failure Other Pertinent Diagnosis s/p DKA, s/p PEA Arrest, Pneumonia, Pyuria, Pancytopenia, UTI, ... Current Diet TF-Glucerna 1.2 Moreno @ 55 ml/hr (since D 02/18). Labs/Tests 02/19: Crea 0.3, Glu 143. Pertinent Medications 02/19: D10w @ 42 ml/hr, others nutritionally unremarkable. Height 5 ft 4 in Weight 47 kg Craig Body Weight (kg) 54.54 BMI 17.7 Weight change and time frame 1.8 Kg body weight loss in 1 week reported. Weight Status Underweight Subjective/Other Information RD consult for routine F/U on TF tolerance/continuation, and Low BMI assessment. TF continues as prescribed, but currently on hold, due to vomiting episode after PEG placement, according to RN notes. Pt remains on Mechanical Ventilation, O2 saturation @ 100%, according to Physical Assessment History notes. PEG-tube placement on 02/18, well tolerated, according to Operative Report notes. Pt's Low BMI seems to correspond to a natural body composition, and not related to a sudden loss of body weight nor chronic malnutrition, since no signs of concern were mentioned in the Physical Assessment History or the Progress notes. Percent of energy/protein needs met: Prescribed TF-Glucerna 1.2 More[place] @ 55 ml/hr provides for energy/protein needs (1584 Kcal/79 g) during LOS, 97% Kcal; 100% AA. Burn Absent Trauma Absent GI Symptoms Vomiting Difficulty In Swallowing Food Allergy No Skin Integrity/Comment Unspecified area of concern. Current % PO Other Minimum of two criteria No Fluid Accumulation N/A Reduced Eyelet Punch Operator Strength N/A (non-severe) Protein-Calorie Malnutrition N\A #1 Nutrition Diagnosis Inadequate oral intake Diagnosis Progress(for reassessment Continues documentation) Is patient on ventilator? Yes Is Patient Ambulatory and/or Out of Bed No REE-(Twiggs-[facility]. Jeor-confined to bed) 1241.100 Kcal/Kg value to use for calculation 34 Approximate Energy Requirements Using 1598 kcal/Kg Calculation Used for Recommendations Kcal/kg Additional Notes Protein: 1.2-2 g/Kg ABW; 56-93 g/day. Fluids: 1 ml/Kcal, or as per MD. Nutrition Intervention Nutrition Support: Continue TF-Glucerna 1.2 Moreno @ 55 ml/hr. Flush: 100 ml water Q 4 hr, or as per MD. Kcal 1,584 Protein (gm) 79 Carbohydrates (gm) 151 Fat (gm) 79 Fluid (mL) 1,063 Fiber (gm) 21 % RDI: 97% Kcal; 100% AA. Goal #1 Provide at least 75% of energy /protein needs through Enteral Feeding during LOS. Follow-Up By: 03/05/22 Additional Comments Continue monitoring TF tolerance, Mechanical Ventilation, and BM. <MELISSA WHITE - Last Filed: 02/21/22 07:18> Assessment and Plan Assessment and plan: I saw and evaluated the patient. I agree with the findings and the plan of care as documented in the Nurse Practitioner's~note, with the following corrections and additions. Hospitalist Physical - Constitutional Vitals: Temp Pulse Resp BP Pulse Ox 98 F 115 H 25 H 125/83 100 02/21/22 04:00 02/21/22 06:32 02/21/22 06:00 02/21/22 06:32 02/21/22 06:00 HEART Score - HEART Score Troponin: Troponin T < 0.010 ng/mL (0.00-0.029) 02/03/22 16:15 Results - Labs CBC & Chem 7: 02/21/22 04:27 02/21/22 04:27 Labs: Laboratory Last Values WBC 17.1 K/mm3 (4.5-11.0) H 02/21/22 04:27 RBC 3.41 M/mm3 (3.65-5.03) L 02/21/22 04:27 Hgb 7.4 gm/dl (10.1-14.3) L 02/21/22 04:27 Hct 23.6 % (30.3-42.9) L 02/21/22 04:27 MCV 69 fl (79-97) L 02/21/22 04:27 MCH 22 pg (28-32) L 02/21/22 04:27 MCHC 31 % (30-34) 02/21/22 04:27 RDW 30.1 % (13.2-15.2) H 02/21/22 04:27 Plt Count 410 K/mm3 (140-440) 02/21/22 04:27 Lymph % (Auto) Lamp Decorator 02/02/22 04:00 Add Manual Diff Complete 02/03/22 04:00 Total Counted 50 02/03/22 04:00 Seg Neutrophils % Lamp Decorator 02/02/22 04:00 Seg Neuts % (Manual) 76.0 % (40.0-70.0) H 02/03/22 04:00 Band Neutrophils % 18.0 % 02/03/22 04:00 Lymphocytes % (Manual) 2.0 % (13.4-35.0) L 02/03/22 04:00 Reactive Lymphs % (Man) 0 % 02/03/22 04:00 Monocytes % (Manual) 4.0 % (0.0-7.3) 02/03/22 04:00 Eosinophils % (Manual) 0 % (0.0-4.3) 02/03/22 04:00 Basophils % (Manual) 0 % (0.0-1.8) 02/03/22 04:00 Metamyelocytes % 0 % 02/03/22 04:00 Myelocytes % 0 % 02/03/22 04:00 Promyelocytes % 0 % 02/03/22 04:00 Blast Cells % 0 % 02/03/22 04:00 Nucleated RBC % 4.0 % (0.0-0.9) H 02/03/22 04:00 Seg Neutrophils # Man 2.8 K/mm3 (1.8-7.7) 02/03/22 04:00 Band Neutrophils # 0.7 K/mm3 02/03/22 04:00 Lymphocytes # (Manual) 0.1 K/mm3 (1.2-5.4) L 02/03/22 04:00 Abs React Lymphs (Man) 0.0 K/mm3 02/03/22 04:00 Monocytes # (Manual) 0.1 K/mm3 (0.0-0.8) 02/03/22 04:00 Eosinophils # (Manual) 0.0 K/mm3 (0.0-0.4) 02/03/22 04:00 Basophils # (Manual) 0.0 K/mm3 (0.0-0.1) 02/03/22 04:00 Metamyelocytes # 0.0 K/mm3 02/03/22 04:00 Myelocytes # 0.0 K/mm3 02/03/22 04:00 Promyelocytes # 0.0 K/mm3 02/03/22 04:00 Blast Cells # 0.0 K/mm3 02/03/22 04:00 WBC Morphology Not Reportable 02/03/22 04:00 Hypersegmented Neuts Not Reportable 02/03/22 04:00 Hyposegmented Neuts Not Reportable 02/03/22 04:00 Hypogranular Neuts Not Reportable 02/03/22 04:00 Smudge Cells Not Reportable 02/03/22 04:00 Toxic Granulation Not Reportable 02/03/22 04:00 Toxic Vacuolation Not Reportable 02/03/22 04:00 Dohle Bodies Few 02/03/22 04:00 Pelger-Huet Anomaly Not Reportable 02/03/22 04:00 Sung Rods Not Reportable 02/03/22 04:00 Platelet Estimate Consistent w auto 02/03/22 04:00 Clumped Platelets Not Reportable 02/03/22 04:00 Plt Clumps, EDTA Not Reportable 02/03/22 04:00 Large Platelets Not Reportable 02/03/22 04:00 Giant Platelets Not Reportable 02/03/22 04:00 Platelet Satelliting Not Reportable 02/03/22 04:00 Plt Morphology Comment Not Reportable 02/03/22 04:00 RBC Morphology Not Reportable 02/03/22 04:00 Dimorphic RBCs Not Reportable 02/03/22 04:00 Polychromasia Not Reportable 02/03/22 04:00 Hypochromasia 3+ 02/03/22 04:00 Poikilocytosis 2+ 02/03/22 04:00 Anisocytosis 1+ 02/03/22 04:00 Microcytosis 2+ 02/03/22 04:00 Macrocytosis Not Reportable 02/03/22 04:00 Spherocytes Not Reportable 02/03/22 04:00 Pappenheimer Bodies Not Reportable 02/03/22 04:00 Sickle Cells Not Reportable 02/03/22 04:00 Target Cells 1+ 02/03/22 04:00 Tear Drop Cells Few 02/03/22 04:00 Ovalocytes Few 02/03/22 04:00 Helmet Cells Not Reportable 02/03/22 04:00 [place] Bodies Not Reportable 02/03/22 04:00 [place] Rings Not Reportable 02/03/22 04:00 Reeds Cells 1+ 02/03/22 04:00 Bite Cells Not Reportable 02/03/22 04:00 Crenated Cell Not Reportable 02/03/22 04:00 Elliptocytes Few 02/03/22 04:00 Acanthocytes (Spur) Not Reportable 02/03/22 04:00 Rouleaux Not Reportable 02/03/22 04:00 Hemoglobin C Crystals Not Reportable 02/03/22 04:00 Schistocytes Rare 02/03/22 04:00 Malaria parasites Not Reportable 02/03/22 04:00 Percent Retic 0.65 % (0.78-2.58) L 02/08/22 03:55 Sven Bodies Not Reportable 02/03/22 04:00 Hem Pathologist Commnt No 02/03/22 04:00 PT 13.7 Sec. (12.2-14.9) 02/18/22 04:00 INR 0.95 (0.87-1.13) 02/18/22 04:00 APTT 29.5 Sec. (24.2-36.6) 02/16/22 04:36 Fibrinogen 795 mg/dl (211-480) H 02/05/22 08:48 ABG pH 7.463 pH Units (7.350-7.450) H 02/17/22 05:06 POC ABG pCO2 37.3 mmHg (32.0-48.0) 02/02/22 04:49 ABG pCO2 46.8 mm Hg 02/17/22 05:06 POC ABG pO2 79.9 mmHg (83-108) L 02/02/22 04:49 ABG pO2 113.6 mm Hg (80.0-90.0) H 02/17/22 05:06 POC ABG HCO3 30.3 02/02/22 04:49 ABG HCO3 32.8 mmol/L (20.0-26.0) H 02/17/22 05:06 ABG O2 Saturation 98.2 % (95.0-99.0) 02/17/22 05:06 ABG O2 Content 11.0 (0.0-44) 02/17/22 05:06 POC ABG Base Excess 7.1 02/02/22 04:49 ABG Base Excess 8.1 mmol/L (-2.0-3.0) H 02/17/22 05:06 ABG Hemoglobin 8.0 gm/dl (12.0-16.0) L 02/17/22 05:06 ABG Oxyhemoglobin 96.0 (94-98) 02/02/22 04:49 ABG Carboxyhemoglobin 1.7 % (0.0-5.0) 02/17/22 05:06 ABG Methemoglobin 0.5 % (0.0-1.5) 02/17/22 05:06 ABG Sodium Not Reportable 02/02/22 04:49 ABG Potassium Not Reportable 02/02/22 04:49 ABG Chloride Not Reportable 02/02/22 04:49 ABG Glucose Not Reportable 02/02/22 04:49 Oxyhemoglobin 96.0 % (95.0-99.0) 02/17/22 05:06 Carboxyhemoglobin 0.2 (0.5-1.5) L 02/02/22 04:49 FiO2 30 % 02/17/22 05:06 FiO2 % 60.0 02/02/22 04:49 Sodium 142 mmol/L (137-145) 02/21/22 04:27 Potassium 3.7 mmol/L (3.6-5.0) 02/21/22 04:27 Chloride 108.2 mmol/L (98-107) H 02/21/22 04:27 Carbon Dioxide 27 mmol/L (22-30) 02/21/22 04:27 Anion Gap 11 mmol/L 02/21/22 04:27 BUN 10 mg/dL (7-17) 02/21/22 04:27 Creatinine 0.3 mg/dL (0.6-1.2) L 02/21/22 04:27 Estimated GFR > 60 ml/min 02/21/22 04:27 BUN/Creatinine Ratio 33 % 02/21/22 04:27 Glucose 107 mg/dL (65-100) H 02/21/22 04:27 POC Glucose 105 mg/dL (70-105) 02/21/22 06:29 Hemoglobin A1c 11.1 % (4-6) H 02/01/22 12:54 Lactic Acid 2.50 mmol/L (0.7-2.0) H* 02/06/22 11:50 Calcium 8.9 mg/dL (8.4-10.2) 02/21/22 04:27 Phosphorus 3.00 mg/dL (2.5-4.5) 02/21/22 04:27 Magnesium 2.00 mg/dL (1.7-2.3) 02/21/22 04:27 Total Bilirubin 0.50 mg/dL (0.1-1.2) 02/17/22 05:00 Direct Bilirubin < 0.2 mg/dL (0-0.2) 02/13/22 04:00 Indirect Bilirubin 0.1 mg/dL 02/13/22 04:00 AST 38 units/L (5-40) 02/17/22 05:00 ALT 28 units/L (7-56) 02/17/22 05:00 Alkaline Phosphatase 102 units/L (35-129) 02/17/22 05:00 Lactate Dehydrogenase 879 units/L (91-180) H 02/05/22 04:40 Troponin T < 0.010 ng/mL (0.00-0.029) 02/03/22 16:15 Total Protein 5.4 g/dL (6.3-8.2) L 02/17/22 05:00 Albumin 2.5 g/dL (3.9-5) L 02/17/22 05:00 Albumin/Globulin Ratio 0.9 % 02/17/22 05:00 Arterial Blood Glucose Not Reportable 02/02/22 04:49 Urine Color Straw (Yellow) 02/19/22 18:15 Urine Turbidity Clear (Clear) 02/19/22 18:15 Urine pH 8.0 (5.0-7.0) H 02/19/22 18:15 Ur Specific [place] 1.000 (1.003-1.030) L 02/19/22 18:15 Urine Protein 30 mg/dl mg/dL (Negative) 02/19/22 18:15 Urine Glucose (UA) Negative mg/dL (Negative) 02/19/22 18:15 Urine Ketones 5 mg/dL (Negative) 02/19/22 18:15 Urine Blood 1+ (Negative) 02/19/22 18:15 Urine Nitrite Negative (Negative) 02/19/22 18:15 Ur Reducing Substances Not Reportable 02/19/22 18:15 Urine Bilirubin Negative (Negative) 02/19/22 18:15 Urine Ictotest Not Reportable 02/19/22 18:15 Urine Urobilinogen Small mg/dL (<2.0) 02/19/22 18:15 Ur Leukocyte Esterase Negative (Negative) 02/19/22 18:15 Urine WBC (Auto) 2.0 /HPF (0.0-6.0) 02/19/22 18:15 Urine RBC (Auto) 3.0 /HPF (0.0-6.0) 02/19/22 18:15 U Epithel Cells (Auto) 1.0 /HPF (0-13.0) 02/04/22 09:15 Urine Bacteria (Auto) 1+ /HPF (Negative) 02/19/22 18:15 Urine Mucus Few /HPF 02/04/22 09:15 Urine Yeast (Budding) 2+ /HPF 02/04/22 09:15 Vancomycin Trough 28.6 ug/mL (5.0-20.0) H 02/05/22 Unknown Coronavirus (PCR) Negative (Negative) 02/02/22 10:44 SARS-CoV-2 (PCR) Negative (Negative) 02/15/22 09:39 HIV 1&2 Antibody Rapid Non react (Non React) 02/04/22 14:37 HIV P24 Antigen Non react (Non React) 02/04/22 14:37 Blood Type A POSITIVE 02/13/22 09:41 Antibody Screen Negative 02/13/22 09:41 Crossmatch See Detail 02/13/22 09:41 Microbiology: Microbiology 02/19/22 18:43 Tracheal Aspirate Sputum Culture - Preliminary 02/19/22 14:51 Peripheral/Venous Blood Culture - Preliminary NO GROWTH AFTER 24 HOURS 02/19/22 14:51 Peripheral/Venous Blood Culture - Preliminary NO GROWTH AFTER 24 HOURS Gastelum/IV: Voiding Method External Female Catheter Active Medications - Current Medications Current Medications: Generic Name Dose Route Start Last Admin Trade Name Freq PRN Reason Stop Dose Admin Acetaminophen 650 mg 02/20/22 02:09 02/20/22 03:35 Acetaminophen 650 Mg Rect Supp MN 650 mg Q6H PRN Administration Fever >101 Albuterol 2.5 mg 02/01/22 00:57 Albuterol 2.5 Mg/3 Ml Nebu IH Q3HRT PRN Shortness Of Breath Lipase/Protease/Amylase 1 each 02/02/22 08:08 Lipase 10,500/Protease 25,000/Amylase 43,750 (Units) Dr Avelar FEEDTUBE PRN PRN For Clogged Feeding Tube Atorvastatin Calcium 20 mg 02/03/22 22:00 02/20/22 21:02 Atorvastatin 20 Mg Tab FEEDTUBE 20 mg QHS JAMIL Administration Clopidogrel Bisulfate 75 mg 02/19/22 10:00 02/20/22 09:42 Clopidogrel 75 Mg Tab FEEDTUBE 75 mg QDAY JAMIL Administration Dextrose 50 ml 02/02/22 08:00 02/14/22 18:10 Dextrose 50% In Water (25gm) 50 Ml Syringe IV 50 ml Q30MIN PRN Administration Hypoglycemia Protocol Enoxaparin Sodium 40 mg 02/20/22 22:00 02/20/22 21:02 Enoxaparin 40 Mg/0.4 Ml Inj SUB-Q 40 mg BID JAMIL Administration Protocol Famotidine 20 mg 02/04/22 10:00 02/20/22 21:02 Famotidine 20 Mg Tab FEEDTUBE 20 mg BID JAMIL Administration Fentanyl 50 mcg 02/12/22 10:11 02/20/22 09:41 Fentanyl 100 Mcg/2 Ml Inj IV 50 mcg Q2H PRN Administration VENT SYNCHRONY/AGITATION Hydrophilic Ointment 1 applic 02/01/22 18:52 02/17/22 13:52 Lip Therapy Vaseline TP 1 applic Q2HR PRN Administration Dry Lips Sodium Chloride 500 mls @ 5 mls/hr 02/04/22 03:00 02/19/22 09:51 Nacl 0.9% 500 Ml IV 5 mls/hr DIRECT JAMIL Administration Insulin Glargine 10 units 02/20/22 22:00 02/20/22 22:17 Insulin Glargine 100 Units/Ml SUB-Q 10 units QHS JAMIL Administration Insulin Human Regular 0 units 02/02/22 18:00 02/21/22 06:32 Insulin Regular, Human 100 Units/1 Ml SUB-Q Not Given Q6H JAMIL Protocol Mirtazapine 15 mg 02/20/22 22:00 02/20/22 21:02 Mirtazapine 15 Mg Tab FEEDTUBE 15 mg QHS JAMIL Administration Multi-Ingred Cream/Lotion/Oil/Oint 1 applic 02/01/22 18:52 Mineral Oil/Petrolatum, White Ophth Oint 3.5 Gm OU Q4HR PRN Dry Eye(s) Nitroglycerin 0.5 inch 02/11/22 14:00 02/21/22 06:32 Nitroglycerin 2% Oint 1 Gm TP 0.5 inch BIDNTG JAMIL Administration Protocol Ondansetron HCl 4 mg 02/01/22 00:57 02/19/22 06:08 Ondansetron 4 Mg/2 Ml Inj IV 4 mg Q8H PRN Administration Nausea And Vomiting Prednisone 10 mg 02/21/22 10:00 Prednisone 10 Mg Tab PO 02/21/22 10:01 QDAY JAMIL Prednisone 5 mg 02/22/22 10:00 Prednisone 5 Mg Tab FEEDTUBE 02/22/22 10:01 QDAY JAMIL Quetiapine Fumarate 50 mg 02/19/22 22:00 02/20/22 21:02 Quetiapine 25 Mg Tab FEEDTUBE 50 mg BID JAMIL Administration Senna/Docusate Sodium 2 tab 02/19/22 22:00 02/20/22 21:01 Sennosides/Docusate Sodium 8.6/50 Mg Tab FEEDTUBE 2 tab Q12H JAMIL Administration Simple Syrup 15 ml 02/02/22 08:08 Simple Syrup 15 Ml FEEDTUBE PRN PRN Hypoglycemia Simple Syrup 30 ml 02/02/22 08:08 Simple Syrup 15 Ml FEEDTUBE PRN PRN Hypoglycemia Sodium Bicarbonate 325 mg 02/02/22 08:08 Sodium Bicarbonate 325 Mg Tab FEEDTUBE PRN PRN For Clogged Feeding Tube Sodium Chloride 10 ml 02/01/22 10:00 02/20/22 21:01 Sodium Chloride 0.9% 10 Ml Flush Syringe IV 10 ml BID JAMIL Administration Sodium Chloride 10 ml 02/01/22 00:57 02/09/22 05:59 Sodium Chloride 0.9% 10 Ml Flush Syringe IV 10 ml PRN PRN Administration LINE FLUSH Nutrition/Malnutrition Assess - Dietary Evaluation Nutrition/Malnutrition Findings: Nutrition Notes Start: 02/01/22 17:50 Freq: Status: Active Protocol: Document 02/19/22 14:47 JACQUELINE (Rec: 02/19/22 15:20 JACQUELINE [id number]) Nutrition Notes Need for Assessment generated from: Low BMI Initial or Follow up Reassessment Current Diagnosis Diabetes,Sepsis,Respiratory Failure Other Pertinent Diagnosis s/p DKA, s/p PEA Arrest, Pneumonia, Pyuria, Pancytopenia, UTI, ... Current Diet TF-Glucerna 1.2 More[place] @ 55 ml/hr (since D 02/18). Labs/Tests 02/19: Crea 0.3, Glu 143. Pertinent Medications 02/19: D10w @ 42 ml/hr, others nutritionally unremarkable. Height 5 ft 4 in Weight 47 kg Craig Body Weight (kg) 54.54 BMI 17.7 Weight change and time frame 1.8 Kg body weight loss in 1 week reported. Weight Status Underweight Subjective/Other Information RD consult for routine F/U on TF tolerance/continuation, and Low BMI assessment. TF continues as prescribed, but currently on hold, due to vomiting episode after PEG placement, according to RN notes. Pt remains on Mechanical Ventilation, O2 saturation @ 100%, according to Physical Assessment History notes. PEG-tube placement on 02/18, well tolerated, according to Operative Report notes. Pt's Low BMI seems to correspond to a natural body composition, and not related to a sudden loss of body weight nor chronic malnutrition, since no signs of concern were mentioned in the Physical Assessment History or the Progress notes. Percent of energy/protein needs met: Prescribed TF-Glucerna 1.2 [place] @ 55 ml/hr provides for energy/protein needs (1584 Kcal/79 g) during LOS, 97% Kcal; 100% AA. Burn Absent Trauma Absent GI Symptoms Vomiting Difficulty In Swallowing Food Allergy No Skin Integrity/Comment Unspecified area of concern. Current % PO Other Minimum of two criteria No Fluid Accumulation N/A Reduced Eyelet Punch Operator Strength N/A (non-severe) Protein-Calorie Malnutrition N\A #1 Nutrition Diagnosis Inadequate oral intake Diagnosis Progress(for reassessment Continues documentation) Is patient on ventilator? Yes Is Patient Ambulatory and/or Out of Bed No [facility] 1241.100 Kcal/Kg value to use for calculation 34 Approximate Energy Requirements Using 1598 kcal/Kg Calculation Used for Recommendations Kcal/kg Additional Notes Protein: 1.2-2 g/Kg ABW; 56-93 g/day. Fluids: 1 ml/Kcal, or as per MD. Nutrition Intervention Nutrition Support: Continue TF-Glucerna 1.2 [place] @ 55 ml/hr. Flush: 100 ml water Q 4 hr, or as per MD. Kcal 1,584 Protein (gm) 79 Carbohydrates (gm) 151 Fat (gm) 79 Fluid (mL) 1,063 Fiber (gm) 21 % RDI: 97% Kcal; 100% AA. Goal #1 Provide at least 75% of energy /protein needs through Enteral Feeding during LOS. Follow-Up By: 03/05/22 Additional Comments Continue monitoring TF tolerance, Mechanical Ventilation, and BM.
[2022-02-20] MEDS: MIRTAZAPINE 15 MG TAB FEEDTUBE SCH (21:02)
[2022-02-20] MEDS: ENOXAPARIN 40 MG/0.4 ML INJ SUB-Q SCH (21:02)
[2022-02-20] MEDS: INSULIN GLARGINE 100 UNITS/ML SUB-Q SCH (22:17)
[2022-02-21] MEDS: INSULIN REGULAR, HUMAN 100 UNITS/1 ML SUB-Q SCH ×4 (00:45→17:41)
[2022-02-21 05:07] LABS: Hematocrit 23.6 % (30.3-42.9); Hemoglobin 7.4 gm/dl (10.1-14.3); Mean Corpuscular HGB Conc 31 % (30-34); Platelet Count 410 K/mm3 (140-440); Red Blood Count 3.41 M/mm3 (3.65-5.03)
[2022-02-21 05:08] LABS: Mean Corpuscular Volume 69 fl (79-97); Red Cell Distribution Width 30.1 % (13.2-15.2)
[2022-02-21 05:41] LABS: Blood Urea Nitrogen 10 mg/dL (7-17); Calcium 8.9 mg/dL (8.4-10.2); Hemolysis Index 0
[2022-02-21 05:52] LABS: BUN/Creatinine Ratio 33
[2022-02-21] MEDS: NITROGLYCERIN 2% OINT 1 GM TP SCH (06:32)
[2022-02-21] MEDS ORDERED: predniSONE 10 MG TAB PO SCH (10:00)
[2022-02-21] MEDS: FAMOTIDINE 20 MG TAB FEEDTUBE SCH ×2 (10:04→22:59)
[2022-02-21] MEDS: SENNOSIDES/DOCUSATE SODIUM 8.6/50 MG TAB FEEDTUBE SCH ×2 (10:04→22:59)
[2022-02-21] MEDS: QUEtiapine 25 MG TAB FEEDTUBE SCH ×2 (10:04→23:00)
[2022-02-21] MEDS: CLOPIDOGREL 75 MG TAB FEEDTUBE SCH (10:04)
[2022-02-21] MEDS: ENOXAPARIN 40 MG/0.4 ML INJ SUB-Q SCH ×2 (10:04→22:59)
--- NOTE | 2022-02-21 12:06 | Progress Note ---
Assessment and Plan 02/21/22: Continue anticoagulation. PSV trials as tolerated. Vascular has been consulted and are aware of feet. Will stop nitor to finger. PER CM, maybe transferred to LTACH later today. Cultures so far have been negative. afebrile the last 24 hours. 02/20/22: Now that DVT found, will anticoagulate. Increased lovenox to BID, but will discuss with pharmacy to make sure these are accurate doses. Follow up blood cultures as patient is having intermittent fevers now. Sats in the low 90's when I was in the room, but after suctioning, increased back to the mid 90's. Will monitor. May need albumin lasix chaser again. Continue steroid taper. PSV trials. Guarded prognosis. CM working on placement. 02/19/22: Will obtain KUB now. Continue to hold tube feeds. Will speak with surgery about possible causes of vomiting. May need to restart sedation. If spikes temp again will obtain cultures but most likely this is post op fever. Vent settings have not changed. Guarded prognosis. 02/18/22: Start weaning from vent tomorrow. Use peg when surgery approves. Hopeful dispostion to LTACH soon. 02/17/22: Trach and peg tomorrow. NPO after midnight tonight. Steroid taper. Will attempt to touch base with family again about consent for Picc so that IJ can be removed. If not able to do this, will need to be changed over a wire. 02/16/22: Trach and peg on Friday. Continue sedation. Will check CMP tomorrow. Will give a one time dose of albumin with lasix chaser. oral steroid taper has been ordered. need to discontinue central line and replace with picc for more buttermaker usage. 02/15/22: Trach and peg soon. Continue sedation and supportive care. 02/14/22: Today will plan to extubate. if fails will need trach. Reviewed chart and saw vascular recs. Will wean steroids again either tomorrow or Saturd ay. 02/13/22: Drop steroids to 50q12 today. Currently on PSV 14/6. Sedatioin off. Tentatively plan for possible extubation tomorrow morning. 02/12/22: Will wean steroids more tomorrow. Drop PEEP to 6 today and attempt PSV this afternoon. If tolerates will leave on PSV until end of day shift and then rest on rate overnight. Hopeful to leave off sedation and control with PRN pushes. Repeat PSV tomorrow consider ABG, pending on how she looks clinically. Hopeful for conventional ventilation but family is on board if trach and peg are required. 02/11/22: Will drop steroids to 50q8. Will drop PEEP to 8. Once PEEP at 6 , then consult surgery fro trach and peg unless off sedation mental state is better and she can tolerate PSV to assess if able for conventional extubation. Prognosis still remains guarded but improved now that pulmonary status has improved. 02/08/22: Please do not attempt to wean PEEP unless it is compromising clinical state (breath stacking, auto peep, hypotension, etc). Patient is in full blown ARDS needs increased levels of PEEP to help with oxygenation. Now that BP is better, if no improvement would even consider increasing PEEP if needed. Discussed with RT today. Spoke with nursing and [employer] about feet, will obtain arterial dopplers. Hopeful there is no occlusion as given her pancytopenia, not sure that she would be a candidate for anticoagulation. Reviewed [facility] Records as she was in [place] at least 3x prior to transfer here, twice during the month of January for DKA. She does have a diagnsosis of schizoaffective disorder. Could not find any meds for this. Will try some BID seroquel and see if this helps with mental state. Increases in sedation have not improved respiratory pattern. Patient did not get albumin and lasix last night but did get this am. Repeat CXR in the morning as well as ABG. If patient's alkalemia worsens would stop. Also given improvement in BP would start to wean stress dose steroids. She does have a diagnosis of HTN along with her diabetes and Dementia and Schizoaffective disorder. Also from reviewing the charts at [facility], patient is/was very noncompliant with diabetic regimen so some of her mental state could be vascular disease related to uncontrolled diabetes too. Overall prognosis is guarded. 02/07/22: Family meeting today, please see my event note. albumin and lasix again this morning and then again tonight. Continue steroids. May need insulin drip. Guarded prognosis. 02/06/22: Overall prognosis continues to worsen. She did respond to albumin and lasix with good urine output. Will give again tonight. Bronch results are negative and repeat cultures are negative. CXR continues to be consistent with ARDS. This could be AIP. Now on steroids so will see how she responds. Lisa garcia I was not able to meet with the family today but plan to meet with them at 11 tomorrow. appreciate heme help. Given her response to steroids BP salazar, if this is truly acute interstitial pneumonitis, may consider pulse dose steroids. Will discuss with family risks of this as well. 02/05/22: Follow up bronch results. Appreciate ID assistance and changing of abx therapy. COntinue high PEEP and small TV. Ok with permissive hypercapnea as long as pH is >7.2. Follow up heme assessment. Has Kleib in tracheal aspirate. Follow up blood cultures. Will meet with family tomorrow. Overall prognosis is guarded to poor. 02/04/22: Repeat cultures this am while she is febrile. Bronched this am and wash taken from right middle lobe. Worsening CXR is likely related to the volume given yesterday. Will consult heme today as her numbers continue to worsen. Gram Negative Rods found in Tracheal aspirate from 02/01. Follow up speciation of this as well as bronch results. Will send for fungal cultures as well. Needs art line. Stop bob and change to vasopressin. Overall prognosis is very very guarded to poor. 02/03/22: Needs repeat culture with next fever spike. concern now that she is still spiking temps on broad spec abx. may need to broaden even more with antifungal but will discuss tomorrow with pharmacy tomorrow. pH is better but worsening hypoxemia. CXR shows bilateral infiltrates. Will consider bronch tomorrow for washing to be sent for culture. Consider Heme consult tomorrow. Echo was stable. Guarded to poor prognosis. Sugar is better today. 02/02/22: Wean Vasopressors as tolerated for maps >65. Check echo. Stop insulin therapy. Q1hour fSbs and cover with sliding scale. Repeat ABG later today to follow pH. May need some diamox later. Patient now neutropenic and thrombocytopenic, repeated CBC and still the same. may need to consider heme consult. For now continue broad spec abx therapy. prognosis is guarded to poor. 2 amps of NaBicarb pushed Started on Insulin drip Central line placement secondary to lack of access Aggressive volume resuscitation q1 hour fsbs and q6 hour BMPs for the next 36-48 hours Supplemental O2 Not a candidate for bipap currently given mental state so if her respiratory status deteriorates would need intubation. Guarded prognosis. Spoke with daughter briefly at bedside. She did not get off her cell phone so not able to have a full conversation with her about her mother. CCT 31 minutes. Subjective Date of service: 02/21/22 Principal diagnosis: DKA, s/p cardiopulmonary arrest Interval history: clinically better today. HR better. BP stable. Objective Vital Signs - 12hr 02/21/22 02/21/22 02/21/22 01:00 02:00 03:00 Temperature Pulse Rate 129 H 118 H 117 H Pulse Rate [ From Monitor] Respiratory 26 H 29 H 29 H Rate Blood Pressure 118/78 134/83 140/85 O2 Sat by Pulse 100 100 100 Oximetry 02/21/22 02/21/22 02/21/22 04:00 05:00 05:43 Temperature 98 F Pulse Rate 110 H 114 H 114 H Pulse Rate [ 114 H From Monitor] Respiratory 22 20 Rate Blood Pressure 116/75 125/80 125/80 O2 Sat by Pulse 100 100 100 Oximetry 02/21/22 02/21/22 02/21/22 06:00 06:32 07:00 Temperature Pulse Rate 112 H 115 H 120 H Pulse Rate [ From Monitor] Respiratory 25 H 26 H Rate Blood Pressure 125/83 125/83 126/87 O2 Sat by Pulse 100 100 Oximetry 02/21/22 02/21/22 02/21/22 07:59 08:00 09:00 Temperature 98 F Pulse Rate 111 H 113 H 112 H Pulse Rate [ 113 H From Monitor] Respiratory 18 18 Rate Blood Pressure 126/81 126/81 134/87 O2 Sat by Pulse 100 100 100 Oximetry 02/21/22 02/21/22 02/21/22 10:00 11:00 11:32 Temperature Pulse Rate 112 H 117 H 114 H Pulse Rate [ From Monitor] Respiratory 15 18 Rate Blood Pressure 130/87 113/79 O2 Sat by Pulse 100 99 Oximetry Constitutional: other (on vent, orally intubated) Eyes: non-icteric ENT: oropharynx moist Ascultation: Bilateral: diminished breath sounds Cardiovascular: regular rate and rhythm Gastrointestinal: normoactive bowel sounds Integumentary: normal Neurologic: other (on vent) Psychiatric: other (on vent) CBC and BMP: 02/21/22 04:27 02/21/22 04:27 ABG, PT/INR, D-dimer: ABG ABG pH 7.463 pH Units (7.350-7.450) H 02/17/22 05:06 POC ABG pCO2 37.3 mmHg (32.0-48.0) 02/02/22 04:49 ABG pCO2 46.8 mm Hg 02/17/22 05:06 POC ABG pO2 79.9 mmHg (83-108) L 02/02/22 04:49 ABG pO2 113.6 mm Hg (80.0-90.0) H 02/17/22 05:06 POC ABG HCO3 30.3 02/02/22 04:49 ABG O2 Saturation 98.2 % (95.0-99.0) 02/17/22 05:06 PT/INR, D-dimer PT 13.7 Sec. (12.2-14.9) 02/18/22 04:00 INR 0.95 (0.87-1.13) 02/18/22 04:00 Abnormal lab findings: Abnormal Labs 01/31/22 01/31/22 01/31/22 20:33 20:33 20:33 WBC 12.5 H RBC 6.16 H Hgb Hct MCV 61 L MCH 18 L RDW 19.6 H Plt Count Seg Neuts % (Manual) 98.0 H Lymphocytes % (Manual) 0 L Nucleated RBC % 2.0 H Seg Neutrophils # Man 12.3 H Lymphocytes # (Manual) 0.0 L Percent Retic Fibrinogen ABG pH POC ABG pO2 ABG pO2 ABG HCO3 ABG O2 Saturation ABG Base Excess ABG Hemoglobin Oxyhemoglobin Carboxyhemoglobin Sodium Potassium 5.6 H Chloride 110.1 H Carbon Dioxide 9 L* BUN Creatinine Glucose 254 H POC Glucose Hemoglobin A1c Lactic Acid 2.50 H* Calcium 10.8 H Phosphorus Magnesium Direct Bilirubin AST ALT Alkaline Phosphatase Lactate Dehydrogenase Total Protein Albumin Urine pH Ur Specific [place] Urine Blood Urine WBC (Auto) Vancomycin Trough Crossmatch 01/31/22 02/01/22 02/01/22 22:49 07:34 08:22 WBC RBC Hgb Hct MCV MCH RDW Plt Count Seg Neuts % (Manual) Lymphocytes % (Manual) Nucleated RBC % Seg Neutrophils # Man Lymphocytes # (Manual) Percent Retic Fibrinogen ABG pH POC ABG pO2 ABG pO2 ABG HCO3 ABG O2 Saturation ABG Base Excess ABG Hemoglobin Oxyhemoglobin Carboxyhemoglobin Sodium Potassium 5.8 H Chloride 115.8 H Carbon Dioxide 3 L* BUN Creatinine Glucose 400 H POC Glucose 368 H Hemoglobin A1c Lactic Acid Calcium Phosphorus Magnesium Direct Bilirubin AST ALT Alkaline Phosphatase Lactate Dehydrogenase Total Protein Albumin Urine pH Ur Specific [place] 1.035 H Urine Blood Small A Urine WBC (Auto) 142.0 H Vancomycin Trough Crossmatch 02/01/22 02/01/22 02/01/22 09:42 12:01 12:54 WBC RBC Hgb Hct MCV MCH RDW Plt Count Seg Neuts % (Manual) Lymphocytes % (Manual) Nucleated RBC % Seg Neutrophils # Man Lymphocytes # (Manual) Percent Retic Fibrinogen ABG pH 7.044 L* POC ABG pO2 ABG pO2 121.0 H ABG HCO3 3.7 L ABG O2 Saturation ABG Base Excess -24.8 L ABG Hemoglobin 9.3 L Oxyhemoglobin Carboxyhemoglobin Sodium Potassium Chloride Carbon Dioxide BUN Creatinine Glucose POC Glucose 382 H Hemoglobin A1c Lactic Acid Calcium Phosphorus 1.40 L Magnesium 1.30 L Direct Bilirubin AST ALT Alkaline Phosphatase Lactate Dehydrogenase Total Protein Albumin Urine pH Ur Specific [place] Urine Blood Urine WBC (Auto) Vancomycin Trough Crossmatch 02/01/22 02/01/22 02/01/22 12:54 12:54 13:27 WBC RBC Hgb Hct MCV MCH RDW Plt Count Seg Neuts % (Manual) Lymphocytes % (Manual) Nucleated RBC % Seg Neutrophils # Man Lymphocytes # (Manual) Percent Retic Fibrinogen ABG pH POC ABG pO2 ABG pO2 ABG HCO3 ABG O2 Saturation ABG Base Excess ABG Hemoglobin Oxyhemoglobin Carboxyhemoglobin Sodium 148 H D Potassium 3.0 L D Chloride 117.3 H Carbon Dioxide 9 L* BUN Creatinine Glucose 439 H POC Glucose 342 H Hemoglobin A1c 11.1 H Lactic Acid Calcium 7.7 L Phosphorus Magnesium Direct Bilirubin AST ALT Alkaline Phosphatase Lactate Dehydrogenase Total Protein Albumin Urine pH Ur Specific [place] Urine Blood Urine WBC (Auto) Vancomycin Trough Crossmatch 02/01/22 02/01/22 02/01/22 14:48 15:48 16:54 WBC RBC Hgb Hct MCV MCH RDW Plt Count Seg Neuts % (Manual) Lymphocytes % (Manual) Nucleated RBC % Seg Neutrophils # Man Lymphocytes # (Manual) Percent Retic Fibrinogen ABG pH POC ABG pO2 ABG pO2 ABG HCO3 ABG O2 Saturation ABG Base Excess ABG Hemoglobin Oxyhemoglobin Carboxyhemoglobin Sodium Potassium Chloride Carbon Dioxide BUN Creatinine Glucose POC Glucose 394 H 412 H 352 H Hemoglobin A1c Lactic Acid Calcium Phosphorus Magnesium Direct Bilirubin AST ALT Alkaline Phosphatase Lactate Dehydrogenase Total Protein Albumin Urine pH Ur Specific [place] Urine Blood Urine WBC (Auto) Vancomycin Trough Crossmatch 02/01/22 02/01/22 02/01/22 18:23 18:53 19:26 WBC RBC Hgb Hct MCV MCH RDW Plt Count Seg Neuts % (Manual) Lymphocytes % (Manual) Nucleated RBC % Seg Neutrophils # Man Lymphocytes # (Manual) Percent Retic Fibrinogen ABG pH 7.331 L POC ABG pO2 ABG pO2 121.4 H ABG HCO3 ABG O2 Saturation ABG Base Excess -4.9 L ABG Hemoglobin 8.4 L Oxyhemoglobin Carboxyhemoglobin Sodium Potassium Chloride Carbon Dioxide BUN Creatinine Glucose POC Glucose 350 H 260 H Hemoglobin A1c Lactic Acid Calcium Phosphorus Magnesium Direct Bilirubin AST ALT Alkaline Phosphatase Lactate Dehydrogenase Total Protein Albumin Urine pH Ur Specific [place] Urine Blood Urine WBC (Auto) Vancomycin Trough Crossmatch 02/01/22 02/01/22 02/01/22 20:20 21:38 22:41 WBC RBC Hgb Hct MCV MCH RDW Plt Count Seg Neuts % (Manual) Lymphocytes % (Manual) Nucleated RBC % Seg Neutrophils # Man Lymphocytes # (Manual) Percent Retic Fibrinogen ABG pH POC ABG pO2 ABG pO2 ABG HCO3 ABG O2 Saturation ABG Base Excess ABG Hemoglobin Oxyhemoglobin Carboxyhemoglobin Sodium Potassium Chloride Carbon Dioxide BUN Creatinine Glucose POC Glucose 266 H 195 H 150 H Hemoglobin A1c Lactic Acid Calcium Phosphorus Magnesium Direct Bilirubin AST ALT Alkaline Phosphatase Lactate Dehydrogenase Total Protein Albumin Urine pH Ur Specific [place] Urine Blood Urine WBC (Auto) Vancomycin Trough Crossmatch 02/01/22 02/02/22 02/02/22 23:39 00:25 00:25 WBC RBC Hgb Hct MCV MCH RDW Plt Count Seg Neuts % (Manual) Lymphocytes % (Manual) Nucleated RBC % Seg Neutrophils # Man Lymphocytes # (Manual) Percent Retic Fibrinogen ABG pH POC ABG pO2 ABG pO2 ABG HCO3 ABG O2 Saturation ABG Base Excess ABG Hemoglobin Oxyhemoglobin Carboxyhemoglobin Sodium 156 H D Potassium 3.0 L Chloride 114.2 H Carbon Dioxide BUN Creatinine 0.5 L Glucose 63 L POC Glucose 125 H Hemoglobin A1c Lactic Acid 7.10 H* Calcium 8.1 L Phosphorus Magnesium Direct Bilirubin AST ALT Alkaline Phosphatase Lactate Dehydrogenase Total Protein Albumin Urine pH Ur Specific [place] Urine Blood Urine WBC (Auto) Vancomycin Trough Crossmatch 02/02/22 02/02/22 02/02/22 04:00 04:00 04:35 WBC 1.4 L* RBC Hgb 8.5 L Hct 26.8 L D MCV 57 L MCH 18 L RDW 19.0 H Plt Count 129 L Seg Neuts % (Manual) 33.0 L Lymphocytes % (Manual) 57.0 H Nucleated RBC % Seg Neutrophils # Man 0.5 L Lymphocytes # (Manual) 0.8 L Percent Retic Fibrinogen ABG pH POC ABG pO2 ABG pO2 ABG HCO3 ABG O2 Saturation ABG Base Excess ABG Hemoglobin Oxyhemoglobin Carboxyhemoglobin Sodium 155 H Potassium Chloride 113.1 H Carbon Dioxide BUN Creatinine Glucose 159 H POC Glucose Hemoglobin A1c Lactic Acid 3.10 H* Calcium 7.6 L Phosphorus Magnesium Direct Bilirubin AST ALT Alkaline Phosphatase Lactate Dehydrogenase Total Protein Albumin Urine pH Ur Specific [place] Urine Blood Urine WBC (Auto) Vancomycin Trough Crossmatch 02/02/22 02/02/22 02/02/22 04:37 04:49 05:43 WBC RBC Hgb Hct MCV MCH RDW Plt Count Seg Neuts % (Manual) Lymphocytes % (Manual) Nucleated RBC % Seg Neutrophils # Man Lymphocytes # (Manual) Percent Retic Fibrinogen ABG pH 7.528 H POC ABG pO2 79.9 L ABG pO2 ABG HCO3 ABG O2 Saturation ABG Base Excess ABG Hemoglobin 8.8 L Oxyhemoglobin Carboxyhemoglobin 0.2 L Sodium Potassium Chloride Carbon Dioxide BUN Creatinine Glucose POC Glucose 116 H 125 H Hemoglobin A1c Lactic Acid Calcium Phosphorus Magnesium Direct Bilirubin AST ALT Alkaline Phosphatase Lactate Dehydrogenase Total Protein Albumin Urine pH Ur Specific [place] Urine Blood Urine WBC (Auto) Vancomycin Trough Crossmatch 02/02/22 02/02/22 02/02/22 06:52 09:02 09:05 WBC RBC Hgb Hct MCV MCH RDW Plt Count Seg Neuts % (Manual) Lymphocytes % (Manual) Nucleated RBC % Seg Neutrophils # Man Lymphocytes # (Manual) Percent Retic Fibrinogen ABG pH POC ABG pO2 ABG pO2 ABG HCO3 ABG O2 Saturation ABG Base Excess ABG Hemoglobin Oxyhemoglobin Carboxyhemoglobin Sodium 154 H Potassium 3.3 L Chloride 113.3 H Carbon Dioxide BUN Creatinine Glucose 35 L* POC Glucose 110 H 35 L Hemoglobin A1c Lactic Acid Calcium 7.4 L Phosphorus 1.70 L D Magnesium 2.50 H Direct Bilirubin AST ALT Alkaline Phosphatase Lactate Dehydrogenase Total Protein Albumin Urine pH Ur Specific [place] Urine Blood Urine WBC (Auto) Vancomycin Trough Crossmatch 02/02/22 02/02/22 02/02/22 09:05 09:30 09:41 WBC 2.6 L RBC Hgb 8.0 L Hct 25.0 L MCV 57 L MCH 18 L RDW 18.8 H Plt Count 97 L Seg Neuts % (Manual) Lymphocytes % (Manual) 12.0 L Nucleated RBC % 10.0 H Seg Neutrophils # Man 1.7 L Lymphocytes # (Manual) 0.3 L Percent Retic Fibrinogen ABG pH POC ABG pO2 ABG pO2 ABG HCO3 ABG O2 Saturation ABG Base Excess ABG Hemoglobin Oxyhemoglobin Carboxyhemoglobin Sodium Potassium Chloride Carbon Dioxide BUN Creatinine Glucose POC Glucose 119 H Hemoglobin A1c Lactic Acid 7.10 H* Calcium Phosphorus Magnesium Direct Bilirubin AST ALT Alkaline Phosphatase Lactate Dehydrogenase Total Protein Albumin Urine pH Ur Specific [place] Urine Blood Urine WBC (Auto) Vancomycin Trough Crossmatch 02/02/22 02/02/22 02/02/22 10:17 12:32 15:39 WBC RBC Hgb Hct MCV MCH RDW Plt Count Seg Neuts % (Manual) Lymphocytes % (Manual) Nucleated RBC % Seg Neutrophils # Man Lymphocytes # (Manual) Percent Retic Fibrinogen ABG pH POC ABG pO2 ABG pO2 ABG HCO3 ABG O2 Saturation ABG Base Excess ABG Hemoglobin Oxyhemoglobin Carboxyhemoglobin Sodium Potassium Chloride Carbon Dioxide BUN Creatinine Glucose POC Glucose 120 H 166 H 263 H Hemoglobin A1c Lactic Acid Calcium Phosphorus Magnesium Direct Bilirubin AST ALT Alkaline Phosphatase Lactate Dehydrogenase Total Protein Albumin Urine pH Ur Specific [place] Urine Blood Urine WBC (Auto) Vancomycin Trough Crossmatch 02/02/22 02/02/22 02/02/22 17:07 17:50 Unknown WBC RBC Hgb Hct MCV MCH RDW Plt Count Seg Neuts % (Manual) Lymphocytes % (Manual) Nucleated RBC % Seg Neutrophils # Man Lymphocytes # (Manual) Percent Retic Fibrinogen ABG pH 7.457 H POC ABG pO2 ABG pO2 71.0 L ABG HCO3 ABG O2 Saturation 94.5 L ABG Base Excess ABG Hemoglobin 9.2 L Oxyhemoglobin 93.0 L Carboxyhemoglobin Sodium 147 H Potassium 5.5 H D Chloride 110.8 H Carbon Dioxide BUN Creatinine Glucose 271 H POC Glucose 231 H Hemoglobin A1c Lactic Acid Calcium 7.3 L Phosphorus Magnesium Direct Bilirubin AST ALT Alkaline Phosphatase Lactate Dehydrogenase Total Protein Albumin Urine pH Ur Specific [place] Urine Blood Urine WBC (Auto) Vancomycin Trough Crossmatch 02/03/22 02/03/22 02/03/22 00:08 04:00 04:00 WBC 3.7 L RBC Hgb 8.0 L Hct 25.5 L MCV 58 L MCH 18 L RDW 18.2 H Plt Count 79 L Seg Neuts % (Manual) 76.0 H Lymphocytes % (Manual) 2.0 L Nucleated RBC % 4.0 H Seg Neutrophils # Man Lymphocytes # (Manual) 0.1 L Percent Retic Fibrinogen ABG pH POC ABG pO2 ABG pO2 ABG HCO3 ABG O2 Saturation ABG Base Excess ABG Hemoglobin Oxyhemoglobin Carboxyhemoglobin Sodium 147 H Potassium Chloride 112.9 H Carbon Dioxide BUN Creatinine Glucose 281 H POC Glucose 231 H Hemoglobin A1c Lactic Acid Calcium 7.8 L Phosphorus Magnesium Direct Bilirubin 0.3 H AST 172 H ALT 89 H Alkaline Phosphatase Lactate Dehydrogenase Total Protein 4.7 L D Albumin 2.0 L Urine pH Ur Specific [place] Urine Blood Urine WBC (Auto) Vancomycin Trough Crossmatch 02/03/22 02/03/22 02/03/22 04:20 05:26 11:38 WBC RBC Hgb Hct MCV MCH RDW Plt Count Seg Neuts % (Manual) Lymphocytes % (Manual) Nucleated RBC % Seg Neutrophils # Man Lymphocytes # (Manual) Percent Retic Fibrinogen ABG pH POC ABG pO2 ABG pO2 75.5 L ABG HCO3 ABG O2 Saturation ABG Base Excess -2.8 L ABG Hemoglobin 8.1 L Oxyhemoglobin 94.6 L Carboxyhemoglobin Sodium Potassium Chloride Carbon Dioxide BUN Creatinine Glucose POC Glucose 247 H 196 H Hemoglobin A1c Lactic Acid Calcium Phosphorus Magnesium Direct Bilirubin AST ALT Alkaline Phosphatase Lactate Dehydrogenase Total Protein Albumin Urine pH Ur Specific [place] Urine Blood Urine WBC (Auto) Vancomycin Trough Crossmatch 02/03/22 02/04/22 02/04/22 16:27 02:44 03:18 WBC 1.2 L* RBC Hgb 8.2 L Hct 26.6 L MCV 59 L MCH 18 L RDW 19.6 H Plt Count 50 L Seg Neuts % (Manual) Lymphocytes % (Manual) Nucleated RBC % Seg Neutrophils # Man Lymphocytes # (Manual) Percent Retic Fibrinogen ABG pH POC ABG pO2 ABG pO2 ABG HCO3 ABG O2 Saturation ABG Base Excess ABG Hemoglobin Oxyhemoglobin Carboxyhemoglobin Sodium 148 H Potassium Chloride 116.3 H Carbon Dioxide BUN Creatinine Glucose 139 H POC Glucose 119 H Hemoglobin A1c Lactic Acid Calcium Phosphorus Magnesium Direct Bilirubin 0.3 H AST 92 H ALT 76 H Alkaline Phosphatase Lactate Dehydrogenase Total Protein 4.7 L Albumin 1.6 L Urine pH Ur Specific [place] Urine Blood Urine WBC (Auto) Vancomycin Trough Crossmatch 02/04/22 02/04/22 02/04/22 05:15 05:26 09:15 WBC RBC Hgb Hct MCV MCH RDW Plt Count Seg Neuts % (Manual) Lymphocytes % (Manual) Nucleated RBC % Seg Neutrophils # Man Lymphocytes # (Manual) Percent Retic Fibrinogen ABG pH 7.311 L POC ABG pO2 ABG pO2 50.1 L ABG HCO3 ABG O2 Saturation 83.6 L ABG Base Excess ABG Hemoglobin 8.6 L Oxyhemoglobin 81.9 L Carboxyhemoglobin Sodium Potassium Chloride Carbon Dioxide BUN Creatinine Glucose POC Glucose 115 H Hemoglobin A1c Lactic Acid Calcium Phosphorus Magnesium Direct Bilirubin AST ALT Alkaline Phosphatase Lactate Dehydrogenase Total Protein Albumin Urine pH Ur Specific [place] Urine Blood Large A Urine WBC (Auto) 12.0 H Vancomycin Trough Crossmatch 02/04/22 02/04/22 02/04/22 11:17 14:37 17:04 WBC RBC Hgb Hct MCV MCH RDW Plt Count Seg Neuts % (Manual) Lymphocytes % (Manual) Nucleated RBC % Seg Neutrophils # Man Lymphocytes # (Manual) Percent Retic Fibrinogen ABG pH POC ABG pO2 ABG pO2 ABG HCO3 ABG O2 Saturation ABG Base Excess ABG Hemoglobin Oxyhemoglobin Carboxyhemoglobin Sodium Potassium Chloride Carbon Dioxide BUN Creatinine Glucose POC Glucose 166 H 109 H Hemoglobin A1c Lactic Acid Calcium Phosphorus Magnesium Direct Bilirubin AST 87 H ALT 75 H Alkaline Phosphatase 137 H Lactate Dehydrogenase Total Protein 4.6 L Albumin 1.7 L Urine pH Ur Specific [place] Urine Blood Urine WBC (Auto) Vancomycin Trough Crossmatch 02/04/22 02/04/22 02/04/22 20:15 20:22 20:22 WBC RBC Hgb 7.1 L Hct 22.6 L MCV MCH RDW Plt Count Seg Neuts % (Manual) Lymphocytes % (Manual) Nucleated RBC % Seg Neutrophils # Man Lymphocytes # (Manual) Percent Retic Fibrinogen ABG pH 7.292 L POC ABG pO2 ABG pO2 40.3 L ABG HCO3 ABG O2 Saturation 72.1 L ABG Base Excess -2.2 L ABG Hemoglobin 7.0 L Oxyhemoglobin 70.5 L Carboxyhemoglobin Sodium Potassium Chloride Carbon Dioxide BUN Creatinine Glucose POC Glucose Hemoglobin A1c Lactic Acid 3.00 H* Calcium Phosphorus Magnesium Direct Bilirubin AST ALT Alkaline Phosphatase Lactate Dehydrogenase Total Protein Albumin Urine pH Ur Specific [place] Urine Blood Urine WBC (Auto) Vancomycin Trough Crossmatch 02/04/22 02/04/22 02/05/22 20:22 23:03 04:40 WBC 3.1 L RBC Hgb 9.6 L Hct 30.1 L D MCV 64 L MCH 20 L RDW 26.9 H Plt Count 50 L Seg Neuts % (Manual) Lymphocytes % (Manual) Nucleated RBC % Seg Neutrophils # Man Lymphocytes # (Manual) Percent Retic Fibrinogen ABG pH POC ABG pO2 ABG pO2 ABG HCO3 ABG O2 Saturation ABG Base Excess ABG Hemoglobin Oxyhemoglobin Carboxyhemoglobin Sodium Potassium Chloride Carbon Dioxide BUN Creatinine Glucose POC Glucose 171 H Hemoglobin A1c Lactic Acid Calcium Phosphorus Magnesium Direct Bilirubin AST ALT Alkaline Phosphatase Lactate Dehydrogenase Total Protein Albumin Urine pH Ur Specific [place] Urine Blood Urine WBC (Auto) Vancomycin Trough Crossmatch See Detail 02/05/22 02/05/22 02/05/22 04:40 04:40 04:43 WBC RBC Hgb Hct MCV MCH RDW Plt Count Seg Neuts % (Manual) Lymphocytes % (Manual) Nucleated RBC % Seg Neutrophils # Man Lymphocytes # (Manual) Percent Retic Fibrinogen ABG pH POC ABG pO2 ABG pO2 ABG HCO3 ABG O2 Saturation ABG Base Excess ABG Hemoglobin Oxyhemoglobin Carboxyhemoglobin Sodium 148 H Potassium Chloride 113.2 H Carbon Dioxide BUN 21 H Creatinine Glucose 155 H POC Glucose 156 H Hemoglobin A1c Lactic Acid Calcium Phosphorus Magnesium Direct Bilirubin AST 84 H ALT 67 H Alkaline Phosphatase 152 H Lactate Dehydrogenase 879 H Total Protein 5.0 L Albumin 1.8 L Urine pH Ur Specific [place] Urine Blood Urine WBC (Auto) Vancomycin Trough Crossmatch 02/05/22 02/05/22 02/05/22 08:10 08:48 08:48 WBC RBC Hgb Hct MCV MCH RDW Plt Count Seg Neuts % (Manual) Lymphocytes % (Manual) Nucleated RBC % Seg Neutrophils # Man Lymphocytes # (Manual) Percent Retic Fibrinogen 795 H ABG pH POC ABG pO2 ABG pO2 57.1 L ABG HCO3 27.8 H ABG O2 Saturation 90.8 L ABG Base Excess ABG Hemoglobin 8.5 L Oxyhemoglobin 88.9 L Carboxyhemoglobin Sodium Potassium Chloride Carbon Dioxide BUN Creatinine Glucose POC Glucose Hemoglobin A1c Lactic Acid 2.90 H* Calcium Phosphorus Magnesium Direct Bilirubin AST ALT Alkaline Phosphatase Lactate Dehydrogenase Total Protein Albumin Urine pH Ur Specific [place] Urine Blood Urine WBC (Auto) Vancomycin Trough Crossmatch 02/05/22 02/05/22 02/05/22 11:46 17:45 Unknown WBC RBC Hgb Hct MCV MCH RDW Plt Count Seg Neuts % (Manual) Lymphocytes % (Manual) Nucleated RBC % Seg Neutrophils # Man Lymphocytes # (Manual) Percent Retic Fibrinogen ABG pH POC ABG pO2 ABG pO2 ABG HCO3 ABG O2 Saturation ABG Base Excess ABG Hemoglobin Oxyhemoglobin Carboxyhemoglobin Sodium Potassium Chloride Carbon Dioxide BUN Creatinine Glucose POC Glucose 61 L 133 H Hemoglobin A1c Lactic Acid Calcium Phosphorus Magnesium Direct Bilirubin AST ALT Alkaline Phosphatase Lactate Dehydrogenase Total Protein Albumin Urine pH Ur Specific [place] Urine Blood Urine WBC (Auto) Vancomycin Trough 28.6 H Crossmatch 02/05/22 02/06/22 02/06/22 23:59 04:33 04:33 WBC RBC Hgb 8.4 L Hct 26.1 L MCV 64 L MCH 21 L RDW 26.2 H Plt Count 38 L Seg Neuts % (Manual) Lymphocytes % (Manual) Nucleated RBC % Seg Neutrophils # Man Lymphocytes # (Manual) Percent Retic Fibrinogen ABG pH POC ABG pO2 ABG pO2 ABG HCO3 ABG O2 Saturation ABG Base Excess ABG Hemoglobin Oxyhemoglobin Carboxyhemoglobin Sodium 146 H Potassium 3.4 L Chloride Carbon Dioxide 31 H BUN 21 H Creatinine Glucose 230 H POC Glucose 275 H Hemoglobin A1c Lactic Acid Calcium Phosphorus Magnesium Direct Bilirubin AST 70 H ALT Alkaline Phosphatase 197 H Lactate Dehydrogenase Total Protein 5.3 L Albumin 2.4 L Urine pH Ur Specific [place] Urine Blood Urine WBC (Auto) Vancomycin Trough Crossmatch 02/06/22 02/06/22 02/06/22 04:33 04:50 06:19 WBC RBC Hgb Hct MCV MCH RDW Plt Count Seg Neuts % (Manual) Lymphocytes % (Manual) Nucleated RBC % Seg Neutrophils # Man Lymphocytes # (Manual) Percent Retic Fibrinogen ABG pH 7.330 L POC ABG pO2 ABG pO2 57.9 L ABG HCO3 31.3 H ABG O2 Saturation 89.6 L ABG Base Excess 4.5 H ABG Hemoglobin 8.1 L Oxyhemoglobin 87.7 L Carboxyhemoglobin Sodium Potassium Chloride Carbon Dioxide BUN Creatinine Glucose POC Glucose 219 H Hemoglobin A1c Lactic Acid 3.10 H* Calcium Phosphorus Magnesium Direct Bilirubin AST ALT Alkaline Phosphatase Lactate Dehydrogenase Total Protein Albumin Urine pH Ur Specific [place] Urine Blood Urine WBC (Auto) Vancomycin Trough Crossmatch 02/06/22 02/06/22 02/06/22 11:24 11:50 12:26 WBC RBC Hgb Hct MCV MCH RDW Plt Count Seg Neuts % (Manual) Lymphocytes % (Manual) Nucleated RBC % Seg Neutrophils # Man Lymphocytes # (Manual) Percent Retic Fibrinogen ABG pH 7.298 L POC ABG pO2 ABG pO2 43.3 L ABG HCO3 36.7 H ABG O2 Saturation 74.9 L ABG Base Excess 8.8 H ABG Hemoglobin 8.2 L Oxyhemoglobin 73.3 L Carboxyhemoglobin Sodium Potassium Chloride Carbon Dioxide BUN Creatinine Glucose POC Glucose 118 H Hemoglobin A1c Lactic Acid 2.50 H* Calcium Phosphorus Magnesium Direct Bilirubin AST ALT Alkaline Phosphatase Lactate Dehydrogenase Total Protein Albumin Urine pH Ur Specific [place] Urine Blood Urine WBC (Auto) Vancomycin Trough Crossmatch 02/06/22 02/06/22 02/07/22 17:41 21:41 00:17 WBC RBC Hgb Hct MCV MCH RDW Plt Count Seg Neuts % (Manual) Lymphocytes % (Manual) Nucleated RBC % Seg Neutrophils # Man Lymphocytes # (Manual) Percent Retic Fibrinogen ABG pH POC ABG pO2 ABG pO2 ABG HCO3 ABG O2 Saturation ABG Base Excess ABG Hemoglobin Oxyhemoglobin Carboxyhemoglobin Sodium Potassium Chloride Carbon Dioxide BUN Creatinine Glucose POC Glucose 208 H 282 H 342 H Hemoglobin A1c Lactic Acid Calcium Phosphorus Magnesium Direct Bilirubin AST ALT Alkaline Phosphatase Lactate Dehydrogenase Total Protein Albumin Urine pH Ur Specific [place] Urine Blood Urine WBC (Auto) Vancomycin Trough Crossmatch 02/07/22 02/07/22 02/07/22 00:19 04:12 04:12 WBC 13.1 H RBC Hgb 8.5 L Hct 26.4 L MCV 62 L MCH 20 L RDW 24.2 H Plt Count 57 L Seg Neuts % (Manual) Lymphocytes % (Manual) Nucleated RBC % Seg Neutrophils # Man Lymphocytes # (Manual) Percent Retic Fibrinogen ABG pH POC ABG pO2 ABG pO2 ABG HCO3 ABG O2 Saturation ABG Base Excess ABG Hemoglobin Oxyhemoglobin Carboxyhemoglobin Sodium 149 H Potassium 3.1 L Chloride Carbon Dioxide 38 H D BUN 23 H Creatinine Glucose 298 H POC Glucose 209 H Hemoglobin A1c Lactic Acid Calcium Phosphorus 2.10 L Magnesium Direct Bilirubin AST 49 H ALT Alkaline Phosphatase 248 H Lactate Dehydrogenase Total Protein 5.4 L Albumin 2.7 L Urine pH Ur Specific [place] Urine Blood Urine WBC (Auto) Vancomycin Trough Crossmatch 02/07/22 02/07/22 02/07/22 04:40 07:09 07:13 WBC RBC Hgb Hct MCV MCH RDW Plt Count Seg Neuts % (Manual) Lymphocytes % (Manual) Nucleated RBC % Seg Neutrophils # Man Lymphocytes # (Manual) Percent Retic Fibrinogen ABG pH 7.474 H POC ABG pO2 ABG pO2 62.1 L ABG HCO3 39.1 H ABG O2 Saturation 94.7 L ABG Base Excess 13.9 H ABG Hemoglobin 8.6 L Oxyhemoglobin 93.0 L Carboxyhemoglobin Sodium Potassium Chloride Carbon Dioxide BUN Creatinine Glucose POC Glucose 399 H 418 H Hemoglobin A1c Lactic Acid Calcium Phosphorus Magnesium Direct Bilirubin AST ALT Alkaline Phosphatase Lactate Dehydrogenase Total Protein Albumin Urine pH Ur Specific [place] Urine Blood Urine WBC (Auto) Vancomycin Trough Crossmatch 02/07/22 02/07/22 02/07/22 12:20 17:29 23:37 WBC RBC Hgb Hct MCV MCH RDW Plt Count Seg Neuts % (Manual) Lymphocytes % (Manual) Nucleated RBC % Seg Neutrophils # Man Lymphocytes # (Manual) Percent Retic Fibrinogen ABG pH POC ABG pO2 ABG pO2 ABG HCO3 ABG O2 Saturation ABG Base Excess ABG Hemoglobin Oxyhemoglobin Carboxyhemoglobin Sodium Potassium Chloride Carbon Dioxide BUN Creatinine Glucose POC Glucose 229 H 159 H 236 H Hemoglobin A1c Lactic Acid Calcium Phosphorus Magnesium Direct Bilirubin AST ALT Alkaline Phosphatase Lactate Dehydrogenase Total Protein Albumin Urine pH Ur Specific [place] Urine Blood Urine WBC (Auto) Vancomycin Trough Crossmatch 02/08/22 02/08/22 02/08/22 03:55 03:55 05:20 WBC 14.7 H RBC Hgb 7.7 L Hct 25.0 L MCV 64 L MCH 20 L RDW 25.1 H Plt Count 79 L Seg Neuts % (Manual) Lymphocytes % (Manual) Nucleated RBC % Seg Neutrophils # Man Lymphocytes # (Manual) Percent Retic 0.65 L Fibrinogen ABG pH POC ABG pO2 ABG pO2 ABG HCO3 ABG O2 Saturation ABG Base Excess ABG Hemoglobin Oxyhemoglobin Carboxyhemoglobin Sodium Potassium 3.0 L Chloride 93.9 L Carbon Dioxide 44 H* BUN 30 H Creatinine Glucose 229 H POC Glucose 235 H Hemoglobin A1c Lactic Acid Calcium 8.3 L Phosphorus 2.30 L Magnesium Direct Bilirubin AST 77 H ALT Alkaline Phosphatase 246 H Lactate Dehydrogenase Total Protein 5.2 L Albumin 2.7 L Urine pH Ur Specific [place] Urine Blood Urine WBC (Auto) Vancomycin Trough Crossmatch 02/08/22 02/08/22 02/08/22 11:47 16:36 21:41 WBC RBC Hgb Hct MCV MCH RDW Plt Count Seg Neuts % (Manual) Lymphocytes % (Manual) Nucleated RBC % Seg Neutrophils # Man Lymphocytes # (Manual) Percent Retic Fibrinogen ABG pH POC ABG pO2 ABG pO2 ABG HCO3 ABG O2 Saturation ABG Base Excess ABG Hemoglobin Oxyhemoglobin Carboxyhemoglobin Sodium Potassium Chloride Carbon Dioxide BUN Creatinine Glucose POC Glucose 193 H 205 H 292 H Hemoglobin A1c Lactic Acid Calcium Phosphorus Magnesium Direct Bilirubin AST ALT Alkaline Phosphatase Lactate Dehydrogenase Total Protein Albumin Urine pH Ur Specific [place] Urine Blood Urine WBC (Auto) Vancomycin Trough Crossmatch 02/08/22 02/08/22 02/09/22 Unknown 23:59 04:00 WBC 16.4 H RBC Hgb 8.2 L Hct 26.3 L MCV 63 L MCH 20 L RDW 23.9 H Plt Count 128 L Seg Neuts % (Manual) Lymphocytes % (Manual) Nucleated RBC % Seg Neutrophils # Man Lymphocytes # (Manual) Percent Retic Fibrinogen ABG pH 7.488 H POC ABG pO2 ABG pO2 63.1 L ABG HCO3 45.5 H ABG O2 Saturation 94.1 L ABG Base Excess 19.8 H ABG Hemoglobin 8.7 L Oxyhemoglobin 92.4 L Carboxyhemoglobin Sodium Potassium Chloride Carbon Dioxide BUN Creatinine Glucose POC Glucose 342 H Hemoglobin A1c Lactic Acid Calcium Phosphorus Magnesium Direct Bilirubin AST ALT Alkaline Phosphatase Lactate Dehydrogenase Total Protein Albumin Urine pH Ur Specific [place] Urine Blood Urine WBC (Auto) Vancomycin Trough Crossmatch 02/09/22 02/09/22 02/09/22 04:00 05:30 06:07 WBC RBC Hgb Hct MCV MCH RDW Plt Count Seg Neuts % (Manual) Lymphocytes % (Manual) Nucleated RBC % Seg Neutrophils # Man Lymphocytes # (Manual) Percent Retic Fibrinogen ABG pH 7.539 H POC ABG pO2 ABG pO2 210.4 H ABG HCO3 42.4 H ABG O2 Saturation 99.3 H ABG Base Excess 18.0 H ABG Hemoglobin 7.8 L Oxyhemoglobin Carboxyhemoglobin Sodium 149 H Potassium 3.1 L Chloride 97.6 L Carbon Dioxide 42 H* BUN 27 H Creatinine Glucose 257 H POC Glucose 260 H Hemoglobin A1c Lactic Acid Calcium 8.2 L Phosphorus 1.90 L Magnesium Direct Bilirubin AST 81 H ALT Alkaline Phosphatase 229 H Lactate Dehydrogenase Total Protein 5.4 L Albumin 2.6 L Urine pH Ur Specific [place] Urine Blood Urine WBC (Auto) Vancomycin Trough Crossmatch 02/09/22 02/09/22 02/09/22 11:16 17:33 20:25 WBC RBC Hgb Hct MCV MCH RDW Plt Count Seg Neuts % (Manual) Lymphocytes % (Manual) Nucleated RBC % Seg Neutrophils # Man Lymphocytes # (Manual) Percent Retic Fibrinogen ABG pH 7.504 H POC ABG pO2 ABG pO2 79.7 L ABG HCO3 44.2 H ABG O2 Saturation ABG Base Excess 19.2 H ABG Hemoglobin 7.0 L Oxyhemoglobin Carboxyhemoglobin Sodium Potassium Chloride Carbon Dioxide BUN Creatinine Glucose POC Glucose 184 H 123 H Hemoglobin A1c Lactic Acid Calcium Phosphorus Magnesium Direct Bilirubin AST ALT Alkaline Phosphatase Lactate Dehydrogenase Total Protein Albumin Urine pH Ur Specific [place] Urine Blood Urine WBC (Auto) Vancomycin Trough Crossmatch 02/09/22 02/09/22 02/10/22 21:16 23:13 03:40 WBC 17.2 H RBC Hgb 7.9 L Hct 25.3 L MCV 63 L MCH 20 L RDW 20.7 H Plt Count Seg Neuts % (Manual) Lymphocytes % (Manual) Nucleated RBC % Seg Neutrophils # Man Lymphocytes # (Manual) Percent Retic Fibrinogen ABG pH POC ABG pO2 ABG pO2 ABG HCO3 ABG O2 Saturation ABG Base Excess ABG Hemoglobin Oxyhemoglobin Carboxyhemoglobin Sodium Potassium Chloride Carbon Dioxide BUN Creatinine Glucose POC Glucose 186 H 276 H Hemoglobin A1c Lactic Acid Calcium Phosphorus Magnesium Direct Bilirubin AST ALT Alkaline Phosphatase Lactate Dehydrogenase Total Protein Albumin Urine pH Ur Specific [place] Urine Blood Urine WBC (Auto) Vancomycin Trough Crossmatch 02/10/22 02/10/22 02/10/22 03:40 04:17 04:17 WBC RBC Hgb Hct MCV MCH RDW Plt Count Seg Neuts % (Manual) Lymphocytes % (Manual) Nucleated RBC % Seg Neutrophils # Man Lymphocytes # (Manual) Percent Retic Fibrinogen ABG pH 7.468 H POC ABG pO2 ABG pO2 124.2 H ABG HCO3 42.1 H ABG O2 Saturation ABG Base Excess 16.6 H ABG Hemoglobin 7.6 L Oxyhemoglobin Carboxyhemoglobin Sodium 149 H Potassium 3.2 L Chloride Carbon Dioxide 38 H BUN 26 H Creatinine 0.5 L Glucose 188 H POC Glucose 189 H Hemoglobin A1c Lactic Acid Calcium 8.3 L Phosphorus 2.10 L Magnesium Direct Bilirubin AST 120 H ALT 80 H Alkaline Phosphatase 207 H Lactate Dehydrogenase Total Protein 5.3 L Albumin 2.4 L Urine pH Ur Specific [place] Urine Blood Urine WBC (Auto) Vancomycin Trough Crossmatch 02/10/22 02/10/22 02/10/22 11:46 16:27 21:15 WBC RBC Hgb Hct MCV MCH RDW Plt Count Seg Neuts % (Manual) Lymphocytes % (Manual) Nucleated RBC % Seg Neutrophils # Man Lymphocytes # (Manual) Percent Retic Fibrinogen ABG pH POC ABG pO2 ABG pO2 ABG HCO3 ABG O2 Saturation ABG Base Excess ABG Hemoglobin Oxyhemoglobin Carboxyhemoglobin Sodium Potassium Chloride Carbon Dioxide BUN Creatinine Glucose POC Glucose 189 H 198 H 261 H Hemoglobin A1c Lactic Acid Calcium Phosphorus Magnesium Direct Bilirubin AST ALT Alkaline Phosphatase Lactate Dehydrogenase Total Protein Albumin Urine pH Ur Specific [place] Urine Blood Urine WBC (Auto) Vancomycin Trough Crossmatch 02/10/22 02/11/22 02/11/22 23:20 04:00 04:00 WBC 20.8 H RBC Hgb 7.7 L Hct 24.5 L MCV 64 L MCH 20 L RDW 23.5 H Plt Count Seg Neuts % (Manual) Lymphocytes % (Manual) Nucleated RBC % Seg Neutrophils # Man Lymphocytes # (Manual) Percent Retic Fibrinogen ABG pH POC ABG pO2 ABG pO2 ABG HCO3 ABG O2 Saturation ABG Base Excess ABG Hemoglobin Oxyhemoglobin Carboxyhemoglobin Sodium 148 H Potassium 3.3 L Chloride Carbon Dioxide 39 H BUN 27 H Creatinine 0.5 L Glucose 218 H POC Glucose 196 H Hemoglobin A1c Lactic Acid Calcium 8.3 L Phosphorus Magnesium Direct Bilirubin AST ALT Alkaline Phosphatase Lactate Dehydrogenase Total Protein Albumin Urine pH Ur Specific [place] Urine Blood Urine WBC (Auto) Vancomycin Trough Crossmatch 0802/11/22 02/11/22 05:00 05:57 11:15 WBC RBC Hgb Hct MCV MCH RDW Plt Count Seg Neuts % (Manual) Lymphocytes % (Manual) Nucleated RBC % Seg Neutrophils # Man Lymphocytes # (Manual) Percent Retic Fibrinogen ABG pH 7.459 H POC ABG pO2 ABG pO2 99.8 H ABG HCO3 41.4 H ABG O2 Saturation ABG Base Excess 15.9 H ABG Hemoglobin 7.5 L Oxyhemoglobin Carboxyhemoglobin Sodium Potassium Chloride Carbon Dioxide BUN Creatinine Glucose POC Glucose 173 H 204 H Hemoglobin A1c Lactic Acid Calcium Phosphorus Magnesium Direct Bilirubin AST ALT Alkaline Phosphatase Lactate Dehydrogenase Total Protein Albumin Urine pH Ur Specific [place] Urine Blood Urine WBC (Auto) Vancomycin Trough Crossmatch 02/11/22 02/11/22 02/12/22 17:15 21:21 00:29 WBC RBC Hgb Hct MCV MCH RDW Plt Count Seg Neuts % (Manual) Lymphocytes % (Manual) Nucleated RBC % Seg Neutrophils # Man Lymphocytes # (Manual) Percent Retic Fibrinogen ABG pH POC ABG pO2 ABG pO2 ABG HCO3 ABG O2 Saturation ABG Base Excess ABG Hemoglobin Oxyhemoglobin Carboxyhemoglobin Sodium Potassium Chloride Carbon Dioxide BUN Creatinine Glucose POC Glucose 157 H 183 H 197 H Hemoglobin A1c Lactic Acid Calcium Phosphorus Magnesium Direct Bilirubin AST ALT Alkaline Phosphatase Lactate Dehydrogenase Total Protein Albumin Urine pH Ur Specific [place] Urine Blood Urine WBC (Auto) Vancomycin Trough Crossmatch 02/12/22 02/12/22 02/12/22 04:17 04:17 05:00 WBC 23.9 H RBC Hgb 7.5 L Hct 24.2 L MCV 64 L MCH 20 L RDW 25.5 H Plt Count Seg Neuts % (Manual) Lymphocytes % (Manual) Nucleated RBC % Seg Neutrophils # Man Lymphocytes # (Manual) Percent Retic Fibrinogen ABG pH 7.467 H POC ABG pO2 ABG pO2 97.9 H ABG HCO3 40.7 H ABG O2 Saturation ABG Base Excess 15.3 H ABG Hemoglobin 7.5 L Oxyhemoglobin Carboxyhemoglobin Sodium 146 H Potassium Chloride Carbon Dioxide 39 H BUN 25 H Creatinine 0.4 L Glucose 135 H POC Glucose Hemoglobin A1c Lactic Acid Calcium Phosphorus Magnesium Direct Bilirubin AST ALT Alkaline Phosphatase Lactate Dehydrogenase Total Protein Albumin Urine pH Ur Specific [place] Urine Blood Urine WBC (Auto) Vancomycin Trough Crossmatch 02/12/22 02/12/22 02/12/22 05:53 12:31 17:54 WBC RBC Hgb Hct MCV MCH RDW Plt Count Seg Neuts % (Manual) Lymphocytes % (Manual) Nucleated RBC % Seg Neutrophils # Man Lymphocytes # (Manual) Percent Retic Fibrinogen ABG pH POC ABG pO2 ABG pO2 ABG HCO3 ABG O2 Saturation ABG Base Excess ABG Hemoglobin Oxyhemoglobin Carboxyhemoglobin Sodium Potassium Chloride Carbon Dioxide BUN Creatinine Glucose POC Glucose 114 H 124 H 159 H Hemoglobin A1c Lactic Acid Calcium Phosphorus Magnesium Direct Bilirubin AST ALT Alkaline Phosphatase Lactate Dehydrogenase Total Protein Albumin Urine pH Ur Specific [place] Urine Blood Urine WBC (Auto) Vancomycin Trough Crossmatch 02/12/22 02/13/22 02/13/22 22:09 03:40 04:00 WBC 23.6 H RBC 3.42 L Hgb 6.7 L Hct 21.7 L MCV 64 L MCH 20 L RDW 27.3 H Plt Count Seg Neuts % (Manual) Lymphocytes % (Manual) Nucleated RBC % Seg Neutrophils # Man Lymphocytes # (Manual) Percent Retic Fibrinogen ABG pH 7.465 H POC ABG pO2 ABG pO2 104.3 H ABG HCO3 39.4 H ABG O2 Saturation ABG Base Excess 14.3 H ABG Hemoglobin 6.7 L Oxyhemoglobin Carboxyhemoglobin Sodium Potassium Chloride Carbon Dioxide BUN Creatinine Glucose POC Glucose 160 H Hemoglobin A1c Lactic Acid Calcium Phosphorus Magnesium Direct Bilirubin AST ALT Alkaline Phosphatase Lactate Dehydrogenase Total Protein Albumin Urine pH Ur Specific [place] Urine Blood Urine WBC (Auto) Vancomycin Trough Crossmatch 02/13/22 02/13/22 02/13/22 04:00 06:05 09:41 WBC RBC Hgb Hct MCV MCH RDW Plt Count Seg Neuts % (Manual) Lymphocytes % (Manual) Nucleated RBC % Seg Neutrophils # Man Lymphocytes # (Manual) Percent Retic Fibrinogen ABG pH POC ABG pO2 ABG pO2 ABG HCO3 ABG O2 Saturation ABG Base Excess ABG Hemoglobin Oxyhemoglobin Carboxyhemoglobin Sodium 146 H Potassium Chloride Carbon Dioxide 38 H BUN 25 H Creatinine 0.4 L Glucose 235 H POC Glucose 283 H Hemoglobin A1c Lactic Acid Calcium 8.0 L Phosphorus Magnesium Direct Bilirubin AST ALT 58 H Alkaline Phosphatase 143 H Lactate Dehydrogenase Total Protein 4.7 L Albumin 2.2 L Urine pH Ur Specific [place] Urine Blood Urine WBC (Auto) Vancomycin Trough Crossmatch See Detail 02/13/22 02/13/22 02/13/22 11:37 18:30 21:47 WBC RBC Hgb Hct MCV MCH RDW Plt Count Seg Neuts % (Manual) Lymphocytes % (Manual) Nucleated RBC % Seg Neutrophils # Man Lymphocytes # (Manual) Percent Retic Fibrinogen ABG pH POC ABG pO2 ABG pO2 ABG HCO3 ABG O2 Saturation ABG Base Excess ABG Hemoglobin Oxyhemoglobin Carboxyhemoglobin Sodium Potassium Chloride Carbon Dioxide BUN Creatinine Glucose POC Glucose 132 H 187 H 279 H Hemoglobin A1c Lactic Acid Calcium Phosphorus Magnesium Direct Bilirubin AST ALT Alkaline Phosphatase Lactate Dehydrogenase Total Protein Albumin Urine pH Ur Specific [place] Urine Blood Urine WBC (Auto) Vancomycin Trough Crossmatch 02/14/22 02/14/22 02/14/22 01:07 04:35 04:40 WBC 24.5 H RBC Hgb 9.4 L Hct 28.8 L D MCV 69 L MCH 23 L RDW 30.3 H Plt Count Seg Neuts % (Manual) Lymphocytes % (Manual) Nucleated RBC % Seg Neutrophils # Man Lymphocytes # (Manual) Percent Retic Fibrinogen ABG pH 7.484 H POC ABG pO2 ABG pO2 101.5 H ABG HCO3 35.8 H ABG O2 Saturation ABG Base Excess 11.1 H ABG Hemoglobin 9.4 L Oxyhemoglobin Carboxyhemoglobin Sodium Potassium Chloride Carbon Dioxide BUN Creatinine Glucose POC Glucose 267 H Hemoglobin A1c Lactic Acid Calcium Phosphorus Magnesium Direct Bilirubin AST ALT Alkaline Phosphatase Lactate Dehydrogenase Total Protein Albumin Urine pH Ur Specific [place] Urine Blood Urine WBC (Auto) Vancomycin Trough Crossmatch 02/14/22 02/14/22 02/14/22 06:16 09:03 11:20 WBC RBC Hgb Hct MCV MCH RDW Plt Count Seg Neuts % (Manual) Lymphocytes % (Manual) Nucleated RBC % Seg Neutrophils # Man Lymphocytes # (Manual) Percent Retic Fibrinogen ABG pH POC ABG pO2 ABG pO2 ABG HCO3 ABG O2 Saturation ABG Base Excess ABG Hemoglobin Oxyhemoglobin Carboxyhemoglobin Sodium Potassium Chloride Carbon Dioxide 39 H BUN 20 H Creatinine 0.4 L Glucose 144 H POC Glucose 183 H 42 L Hemoglobin A1c Lactic Acid Calcium 8.3 L Phosphorus Magnesium Direct Bilirubin AST ALT Alkaline Phosphatase Lactate Dehydrogenase Total Protein Albumin Urine pH Ur Specific [place] Urine Blood Urine WBC (Auto) Vancomycin Trough Crossmatch 02/14/22 02/14/22 02/14/22 18:07 18:10 18:36 WBC RBC Hgb Hct MCV MCH RDW Plt Count Seg Neuts % (Manual) Lymphocytes % (Manual) Nucleated RBC % Seg Neutrophils # Man Lymphocytes # (Manual) Percent Retic Fibrinogen ABG pH 7.518 H POC ABG pO2 ABG pO2 97.1 H ABG HCO3 38.8 H ABG O2 Saturation ABG Base Excess 13.8 H ABG Hemoglobin Oxyhemoglobin Carboxyhemoglobin Sodium Potassium Chloride Carbon Dioxide BUN Creatinine Glucose POC Glucose 29 L 143 H Hemoglobin A1c Lactic Acid Calcium Phosphorus Magnesium Direct Bilirubin AST ALT Alkaline Phosphatase Lactate Dehydrogenase Total Protein Albumin Urine pH Ur Specific [place] Urine Blood Urine WBC (Auto) Vancomycin Trough Crossmatch 02/14/22 02/15/22 02/15/22 23:44 03:31 05:23 WBC 20.1 H RBC Hgb 8.4 L Hct 26.6 L MCV 69 L MCH 22 L RDW 31.5 H Plt Count Seg Neuts % (Manual) Lymphocytes % (Manual) Nucleated RBC % Seg Neutrophils # Man Lymphocytes # (Manual) Percent Retic Fibrinogen ABG pH POC ABG pO2 ABG pO2 ABG HCO3 ABG O2 Saturation ABG Base Excess ABG Hemoglobin Oxyhemoglobin Carboxyhemoglobin Sodium Potassium Chloride Carbon Dioxide BUN Creatinine Glucose POC Glucose 229 H 232 H Hemoglobin A1c Lactic Acid Calcium Phosphorus Magnesium Direct Bilirubin AST ALT Alkaline Phosphatase Lactate Dehydrogenase Total Protein Albumin Urine pH Ur Specific [place] Urine Blood Urine WBC (Auto) Vancomycin Trough Crossmatch 02/15/22 02/15/22 02/15/22 11:32 17:41 23:24 WBC RBC Hgb Hct MCV MCH RDW Plt Count Seg Neuts % (Manual) Lymphocytes % (Manual) Nucleated RBC % Seg Neutrophils # Man Lymphocytes # (Manual) Percent Retic Fibrinogen ABG pH POC ABG pO2 ABG pO2 ABG HCO3 ABG O2 Saturation ABG Base Excess ABG Hemoglobin Oxyhemoglobin Carboxyhemoglobin Sodium Potassium Chloride Carbon Dioxide BUN Creatinine Glucose POC Glucose 160 H 211 H 261 H Hemoglobin A1c Lactic Acid Calcium Phosphorus Magnesium Direct Bilirubin AST ALT Alkaline Phosphatase Lactate Dehydrogenase Total Protein Albumin Urine pH Ur Specific [place] Urine Blood Urine WBC (Auto) Vancomycin Trough Crossmatch 02/16/22 02/16/22 02/16/22 04:36 04:36 05:11 WBC 17.3 H RBC Hgb 8.1 L Hct 26.6 L MCV 70 L MCH 21 L RDW 30.8 H Plt Count Seg Neuts % (Manual) Lymphocytes % (Manual) Nucleated RBC % Seg Neutrophils # Man Lymphocytes # (Manual) Percent Retic Fibrinogen ABG pH POC ABG pO2 ABG pO2 ABG HCO3 ABG O2 Saturation ABG Base Excess ABG Hemoglobin Oxyhemoglobin Carboxyhemoglobin Sodium Potassium Chloride Carbon Dioxide 34 H BUN 20 H Creatinine 0.4 L Glucose 206 H POC Glucose 198 H Hemoglobin A1c Lactic Acid Calcium 7.7 L Phosphorus Magnesium Direct Bilirubin AST ALT Alkaline Phosphatase Lactate Dehydrogenase Total Protein Albumin Urine pH Ur Specific [place] Urine Blood Urine WBC (Auto) Vancomycin Trough Crossmatch 02/16/22 02/16/22 02/17/22 11:25 16:29 00:16 WBC RBC Hgb Hct MCV MCH RDW Plt Count Seg Neuts % (Manual) Lymphocytes % (Manual) Nucleated RBC % Seg Neutrophils # Man Lymphocytes # (Manual) Percent Retic Fibrinogen ABG pH POC ABG pO2 ABG pO2 ABG HCO3 ABG O2 Saturation ABG Base Excess ABG Hemoglobin Oxyhemoglobin Carboxyhemoglobin Sodium Potassium Chloride Carbon Dioxide BUN Creatinine Glucose POC Glucose 130 H 182 H 220 H Hemoglobin A1c Lactic Acid Calcium Phosphorus Magnesium Direct Bilirubin AST ALT Alkaline Phosphatase Lactate Dehydrogenase Total Protein Albumin Urine pH Ur Specific [place] Urine Blood Urine WBC (Auto) Vancomycin Trough Crossmatch 02/17/22 02/17/22 02/17/22 05:00 05:06 05:58 WBC RBC Hgb Hct MCV MCH RDW Plt Count Seg Neuts % (Manual) Lymphocytes % (Manual) Nucleated RBC % Seg Neutrophils # Man Lymphocytes # (Manual) Percent Retic Fibrinogen ABG pH 7.463 H POC ABG pO2 ABG pO2 113.6 H ABG HCO3 32.8 H ABG O2 Saturation ABG Base Excess 8.1 H ABG Hemoglobin 8.0 L Oxyhemoglobin Carboxyhemoglobin Sodium Potassium Chloride Carbon Dioxide 34 H BUN 22 H Creatinine 0.4 L Glucose 314 H POC Glucose 269 H Hemoglobin A1c Lactic Acid Calcium 8.1 L Phosphorus Magnesium Direct Bilirubin AST ALT Alkaline Phosphatase Lactate Dehydrogenase Total Protein 5.4 L Albumin 2.5 L Urine pH Ur Specific [place] Urine Blood Urine WBC (Auto) Vancomycin Trough Crossmatch 02/17/22 02/17/22 02/17/22 11:18 16:41 21:51 WBC RBC Hgb Hct MCV MCH RDW Plt Count Seg Neuts % (Manual) Lymphocytes % (Manual) Nucleated RBC % Seg Neutrophils # Man Lymphocytes # (Manual) Percent Retic Fibrinogen ABG pH POC ABG pO2 ABG pO2 ABG HCO3 ABG O2 Saturation ABG Base Excess ABG Hemoglobin Oxyhemoglobin Carboxyhemoglobin Sodium Potassium Chloride Carbon Dioxide BUN Creatinine Glucose POC Glucose 135 H 248 H 266 H Hemoglobin A1c Lactic Acid Calcium Phosphorus Magnesium Direct Bilirubin AST ALT Alkaline Phosphatase Lactate Dehydrogenase Total Protein Albumin Urine pH Ur Specific [place] Urine Blood Urine WBC (Auto) Vancomycin Trough Crossmatch 02/17/22 02/18/22 02/18/22 23:38 01:04 04:00 WBC 14.8 H RBC Hgb 8.3 L Hct 27.3 L MCV 71 L MCH 22 L RDW 30.5 H Plt Count Seg Neuts % (Manual) Lymphocytes % (Manual) Nucleated RBC % Seg Neutrophils # Man Lymphocytes # (Manual) Percent Retic Fibrinogen ABG pH POC ABG pO2 ABG pO2 ABG HCO3 ABG O2 Saturation ABG Base Excess ABG Hemoglobin Oxyhemoglobin Carboxyhemoglobin Sodium Potassium Chloride Carbon Dioxide BUN Creatinine Glucose POC Glucose 287 H 272 H Hemoglobin A1c Lactic Acid Calcium Phosphorus Magnesium Direct Bilirubin AST ALT Alkaline Phosphatase Lactate Dehydrogenase Total Protein Albumin Urine pH Ur Specific [place] Urine Blood Urine WBC (Auto) Vancomycin Trough Crossmatch 02/18/22 02/18/22 02/18/22 04:00 05:38 11:27 WBC RBC Hgb Hct MCV MCH RDW Plt Count Seg Neuts % (Manual) Lymphocytes % (Manual) Nucleated RBC % Seg Neutrophils # Man Lymphocytes # (Manual) Percent Retic Fibrinogen ABG pH POC ABG pO2 ABG pO2 ABG HCO3 ABG O2 Saturation ABG Base Excess ABG Hemoglobin Oxyhemoglobin Carboxyhemoglobin Sodium Potassium Chloride Carbon Dioxide 32 H BUN 20 H Creatinine 0.3 L Glucose 132 H POC Glucose 117 H 44 L Hemoglobin A1c Lactic Acid Calcium Phosphorus Magnesium Direct Bilirubin AST ALT Alkaline Phosphatase Lactate Dehydrogenase Total Protein Albumin Urine pH Ur Specific [place] Urine Blood Urine WBC (Auto) Vancomycin Trough Crossmatch 02/18/22 02/18/22 02/18/22 11:29 11:49 13:41 WBC RBC Hgb Hct MCV MCH RDW Plt Count Seg Neuts % (Manual) Lymphocytes % (Manual) Nucleated RBC % Seg Neutrophils # Man Lymphocytes # (Manual) Percent Retic Fibrinogen ABG pH POC ABG pO2 ABG pO2 ABG HCO3 ABG O2 Saturation ABG Base Excess ABG Hemoglobin Oxyhemoglobin Carboxyhemoglobin Sodium Potassium Chloride Carbon Dioxide BUN Creatinine Glucose POC Glucose 50 L 216 H 128 H Hemoglobin A1c Lactic Acid Calcium Phosphorus Magnesium Direct Bilirubin AST ALT Alkaline Phosphatase Lactate Dehydrogenase Total Protein Albumin Urine pH Ur Specific [place] Urine Blood Urine WBC (Auto) Vancomycin Trough Crossmatch 02/18/22 02/19/22 02/19/22 21:37 00:45 06:05 WBC RBC Hgb Hct MCV MCH RDW Plt Count Seg Neuts % (Manual) Lymphocytes % (Manual) Nucleated RBC % Seg Neutrophils # Man Lymphocytes # (Manual) Percent Retic Fibrinogen ABG pH POC ABG pO2 ABG pO2 ABG HCO3 ABG O2 Saturation ABG Base Excess ABG Hemoglobin Oxyhemoglobin Carboxyhemoglobin Sodium Potassium Chloride Carbon Dioxide BUN Creatinine Glucose POC Glucose 119 H 131 H 149 H Hemoglobin A1c Lactic Acid Calcium Phosphorus Magnesium Direct Bilirubin AST ALT Alkaline Phosphatase Lactate Dehydrogenase Total Protein Albumin Urine pH Ur Specific [place] Urine Blood Urine WBC (Auto) Vancomycin Trough Crossmatch 02/19/22 02/19/22 02/19/22 06:10 06:10 11:49 WBC 21.4 H RBC Hgb 8.7 L Hct 28.0 L MCV 69 L MCH 22 L RDW 30.9 H Plt Count 466 H Seg Neuts % (Manual) Lymphocytes % (Manual) Nucleated RBC % Seg Neutrophils # Man Lymphocytes # (Manual) Percent Retic Fibrinogen ABG pH POC ABG pO2 ABG pO2 ABG HCO3 ABG O2 Saturation ABG Base Excess ABG Hemoglobin Oxyhemoglobin Carboxyhemoglobin Sodium Potassium Chloride Carbon Dioxide BUN Creatinine 0.3 L Glucose 143 H POC Glucose 20 L Hemoglobin A1c Lactic Acid Calcium Phosphorus Magnesium Direct Bilirubin AST ALT Alkaline Phosphatase Lactate Dehydrogenase Total Protein Albumin Urine pH Ur Specific [place] Urine Blood Urine WBC (Auto) Vancomycin Trough Crossmatch 02/19/22 02/19/22 02/19/22 11:51 12:37 16:47 WBC RBC Hgb Hct MCV MCH RDW Plt Count Seg Neuts % (Manual) Lymphocytes % (Manual) Nucleated RBC % Seg Neutrophils # Man Lymphocytes # (Manual) Percent Retic Fibrinogen ABG pH POC ABG pO2 ABG pO2 ABG HCO3 ABG O2 Saturation ABG Base Excess ABG Hemoglobin Oxyhemoglobin Carboxyhemoglobin Sodium Potassium Chloride Carbon Dioxide BUN Creatinine Glucose POC Glucose 26 L 159 H 54 L Hemoglobin A1c Lactic Acid Calcium Phosphorus Magnesium Direct Bilirubin AST ALT Alkaline Phosphatase Lactate Dehydrogenase Total Protein Albumin Urine pH Ur Specific [place] Urine Blood Urine WBC (Auto) Vancomycin Trough Crossmatch 02/19/22 02/19/22 02/20/22 18:15 23:37 04:22 WBC 19.1 H RBC 3.43 L Hgb 7.4 L Hct 24.3 L MCV 71 L MCH 22 L RDW 30.0 H Plt Count Seg Neuts % (Manual) Lymphocytes % (Manual) Nucleated RBC % Seg Neutrophils # Man Lymphocytes # (Manual) Percent Retic Fibrinogen ABG pH POC ABG pO2 ABG pO2 ABG HCO3 ABG O2 Saturation ABG Base Excess ABG Hemoglobin Oxyhemoglobin Carboxyhemoglobin Sodium Potassium Chloride Carbon Dioxide BUN Creatinine Glucose POC Glucose 176 H Hemoglobin A1c Lactic Acid Calcium Phosphorus Magnesium Direct Bilirubin AST ALT Alkaline Phosphatase Lactate Dehydrogenase Total Protein Albumin Urine pH 8.0 H Ur Specific [place] 1.000 L Urine Blood Urine WBC (Auto) Vancomycin Trough Crossmatch 02/20/22 02/20/22 02/20/22 04:22 06:08 11:27 WBC RBC Hgb Hct MCV MCH RDW Plt Count Seg Neuts % (Manual) Lymphocytes % (Manual) Nucleated RBC % Seg Neutrophils # Man Lymphocytes # (Manual) Percent Retic Fibrinogen ABG pH POC ABG pO2 ABG pO2 ABG HCO3 ABG O2 Saturation ABG Base Excess ABG Hemoglobin Oxyhemoglobin Carboxyhemoglobin Sodium Potassium 3.3 L D Chloride Carbon Dioxide BUN Creatinine 0.3 L Glucose 223 H POC Glucose 195 H 235 H Hemoglobin A1c Lactic Acid Calcium 8.3 L Phosphorus Magnesium Direct Bilirubin AST ALT Alkaline Phosphatase Lactate Dehydrogenase Total Protein Albumin Urine pH Ur Specific [place] Urine Blood Urine WBC (Auto) Vancomycin Trough Crossmatch 02/20/22 02/20/22 02/21/22 17:28 22:16 00:41 WBC RBC Hgb Hct MCV MCH RDW Plt Count Seg Neuts % (Manual) Lymphocytes % (Manual) Nucleated RBC % Seg Neutrophils # Man Lymphocytes # (Manual) Percent Retic Fibrinogen ABG pH POC ABG pO2 ABG pO2 ABG HCO3 ABG O2 Saturation ABG Base Excess ABG Hemoglobin Oxyhemoglobin Carboxyhemoglobin Sodium Potassium Chloride Carbon Dioxide BUN Creatinine Glucose POC Glucose 265 H 185 H 186 H Hemoglobin A1c Lactic Acid Calcium Phosphorus Magnesium Direct Bilirubin AST ALT Alkaline Phosphatase Lactate Dehydrogenase Total Protein Albumin Urine pH Ur Specific [place] Urine Blood Urine WBC (Auto) Vancomycin Trough Crossmatch 02/21/22 02/21/22 04:27 04:27 WBC 17.1 H RBC 3.41 L Hgb 7.4 L Hct 23.6 L MCV 69 L MCH 22 L RDW 30.1 H Plt Count Seg Neuts % (Manual) Lymphocytes % (Manual) Nucleated RBC % Seg Neutrophils # Man Lymphocytes # (Manual) Percent Retic Fibrinogen ABG pH POC ABG pO2 ABG pO2 ABG HCO3 ABG O2 Saturation ABG Base Excess ABG Hemoglobin Oxyhemoglobin Carboxyhemoglobin Sodium Potassium Chloride 108.2 H Carbon Dioxide BUN Creatinine 0.3 L Glucose 107 H POC Glucose Hemoglobin A1c Lactic Acid Calcium Phosphorus Magnesium Direct Bilirubin AST ALT Alkaline Phosphatase Lactate Dehydrogenase Total Protein Albumin Urine pH Ur Specific [place] Urine Blood Urine WBC (Auto) Vancomycin Trough Crossmatch
--- NOTE | 2022-02-21 13:40 | Progress Note ---
Assessment and Plan Patient is on anticoagulation therapy for her small PE and DVT. If she is unable to tolerate this, would consider placing a filter. No embolic source for her ischemic changes to her bilateral feet and finger on her left hand with suspect that this is result of pressors during the patient's resuscitation. She may ultimately require revascularization in an attempt to improve blood flow. Patient is obtunded at present. Subjective Date of service: 02/21/22 Principal diagnosis: DKA, s/p cardiopulmonary arrest Interval history: Patient with a history of recurrent DKA who initially presented with code and required pressors. I the patient was noted to have ischemic changes to her forefoot and toes as well as ischemia to left second finger. A CTA was performed which demonstrates no embolic source. Patient is nonresponsive. Additionally, I the patient had small pulmonary embolism and underwent venous duplex which demonstrated some acute thrombus in her right common femoral vein. Patient has been initiated on anticoagulation therapy Objective - Constitutional Vitals: Vital Signs - 12hr 02/21/22 02/21/22 02/21/22 02:00 03:00 04:00 Temperature 98 F Pulse Rate 118 H 117 H 110 H Pulse Rate [ 114 H From Monitor] Respiratory 29 H 29 H 22 Rate Blood Pressure 134/83 140/85 116/75 O2 Sat by Pulse 100 100 100 Oximetry 02/21/22 02/21/22 02/21/22 05:00 05:43 06:00 Temperature Pulse Rate 114 H 114 H 112 H Pulse Rate [ From Monitor] Respiratory 20 25 H Rate Blood Pressure 125/80 125/80 125/83 O2 Sat by Pulse 100 100 100 Oximetry 02/21/22 02/21/22 02/21/22 06:32 07:00 07:59 Temperature Pulse Rate 115 H 120 H 111 H Pulse Rate [ From Monitor] Respiratory 26 H Rate Blood Pressure 125/83 126/87 126/81 O2 Sat by Pulse 100 100 Oximetry 02/21/22 02/21/22 02/21/22 08:00 09:00 10:00 Temperature 98 F Pulse Rate 113 H 112 H 112 H Pulse Rate [ 113 H From Monitor] Respiratory 18 18 15 Rate Blood Pressure 126/81 134/87 130/87 O2 Sat by Pulse 100 100 100 Oximetry 02/21/22 02/21/22 02/21/22 11:00 11:32 12:00 Temperature 98.6 F Pulse Rate 117 H 114 H 115 H Pulse Rate [ 114 H From Monitor] Respiratory 18 16 Rate Blood Pressure 113/79 123/83 O2 Sat by Pulse 99 100 Oximetry 02/21/22 13:00 Temperature Pulse Rate 108 H Pulse Rate [ From Monitor] Respiratory 16 Rate Blood Pressure 121/83 O2 Sat by Pulse 100 Oximetry General appearance: Present: other (Nonresponsive) - Labs CBC & Chem 7: 02/21/22 04:27 02/21/22 04:27 Labs: Abnormal lab results 02/20/22 02/20/22 02/20/22 Range/Units 11:27 17:28 22:16 WBC (4.5-11.0) K/mm3 RBC (3.65-5.03) M/mm3 Hgb (10.1-14.3) gm/dl Hct (30.3-42.9) % MCV (79-97) fl MCH (28-32) pg RDW (13.2-15.2) % Chloride (98-107) mmol/L Creatinine (0.6-1.2) mg/dL Glucose (65-100) mg/dL POC Glucose 235 H 265 H 185 H (70-105) mg/dL 02/21/22 02/21/22 02/21/22 Range/Units 00:41 04:27 04:27 WBC 17.1 H (4.5-11.0) K/mm3 RBC 3.41 L (3.65-5.03) M/mm3 Hgb 7.4 L (10.1-14.3) gm/dl Hct 23.6 L (30.3-42.9) % MCV 69 L (79-97) fl MCH 22 L (28-32) pg RDW 30.1 H (13.2-15.2) % Chloride 108.2 H (98-107) mmol/L Creatinine 0.3 L (0.6-1.2) mg/dL Glucose 107 H (65-100) mg/dL POC Glucose 186 H (70-105) mg/dL Medications & Allergies - Medications Allergies/Adverse Reactions: Allergies No Known Allergies Allergy (Verified 01/31/22 17:55) Home Medications: Home Medications Medication Instructions Recorded Confirmed Last Taken Type Ergocalciferol [Vitamin D2] 1 cap PO QWEEK 02/02/22 02/02/22 Unknown History Famotidine [Pepcid] 20 mg PO DAILY 02/02/22 02/02/22 Unknown History Insulin Glargine [Lantus VIAL] 5 unit SUB-Q BID 02/02/22 02/02/22 Unknown History Loratadine [Claritin] 10 mg PO DAILY 02/02/22 02/02/22 Unknown History Mirtazapine [Remeron] 15 mg PO HS 02/02/22 02/02/22 Unknown History Rosuvastatin Calcium [Crestor] 10 mg PO HS 02/02/22 02/02/22 Unknown History carvediloL [Coreg] 3.125 mg PO BID 02/02/22 02/02/22 Unknown History Active Medications: Generic Name Dose Route Start Last Admin Trade Name Freq PRN Reason Stop Dose Admin Acetaminophen 650 mg 02/20/22 02:09 02/20/22 03:35 Acetaminophen 650 Mg Rect Supp MN 650 mg Q6H PRN Administration Fever >101 Albuterol 2.5 mg 02/01/22 00:57 Albuterol 2.5 Mg/3 Ml Nebu IH Q3HRT PRN Shortness Of Breath Lipase/Protease/Amylase 1 each 02/02/22 08:08 Lipase 10,500/Protease 25,000/Amylase 43,750 (Units) Dr Avelar FEEDTUBE PRN PRN For Clogged Feeding Tube Atorvastatin Calcium 20 mg 02/03/22 22:00 02/20/22 21:02 Atorvastatin 20 Mg Tab FEEDTUBE 20 mg QHS JAMIL Administration Clopidogrel Bisulfate 75 mg 02/19/22 10:00 02/21/22 10:04 Clopidogrel 75 Mg Tab FEEDTUBE 75 mg QDAY JAMIL Administration Dextrose 50 ml 02/02/22 08:00 02/14/22 18:10 Dextrose 50% In Water (25gm) 50 Ml Syringe IV 50 ml Q30MIN PRN Administration Hypoglycemia Protocol Enoxaparin Sodium 40 mg 02/20/22 22:00 02/21/22 10:04 Enoxaparin 40 Mg/0.4 Ml Inj SUB-Q 40 mg BID JAMIL Administration Protocol Famotidine 20 mg 02/04/22 10:00 02/21/22 10:04 Famotidine 20 Mg Tab FEEDTUBE 20 mg BID JAMIL Administration Fentanyl 50 mcg 02/12/22 10:11 02/20/22 09:41 Fentanyl 100 Mcg/2 Ml Inj IV 50 mcg Q2H PRN Administration VENT SYNCHRONY/AGITATION Hydrophilic Ointment 1 applic 02/01/22 18:52 02/17/22 13:52 Lip Therapy Vaseline TP 1 applic Q2HR PRN Administration Dry Lips Insulin Glargine 10 units 02/20/22 22:00 02/20/22 22:17 Insulin Glargine 100 Units/Ml SUB-Q 10 units QHS JAMIL Administration Insulin Human Regular 0 units 02/02/22 18:00 02/21/22 13:09 Insulin Regular, Human 100 Units/1 Ml SUB-Q Not Given Q6H [facility] Protocol Mirtazapine 15 mg 02/20/22 22:00 02/20/22 21:02 Mirtazapine 15 Mg Tab FEEDTUBE 15 mg QHS JAMIL Administration Multi-Ingred Cream/Lotion/Oil/Oint 1 applic 02/01/22 18:52 Mineral Oil/Petrolatum, White Ophth Oint 3.5 Gm OU Q4HR PRN Dry Eye(s) Ondansetron HCl 4 mg 02/01/22 00:57 02/19/22 06:08 Ondansetron 4 Mg/2 Ml Inj IV 4 mg Q8H PRN Administration Nausea And Vomiting Prednisone 5 mg 02/22/22 10:00 Prednisone 5 Mg Tab FEEDTUBE 02/22/22 10:01 QDAY JAMIL Quetiapine Fumarate 50 mg 02/19/22 22:00 02/21/22 10:04 Quetiapine 25 Mg Tab FEEDTUBE 50 mg BID JAMIL Administration Senna/Docusate Sodium 2 tab 02/19/22 22:00 02/21/22 10:04 Sennosides/Docusate Sodium 8.6/50 Mg Tab FEEDTUBE 2 tab Q12H JAMIL Administration Simple Syrup 15 ml 02/02/22 08:08 Simple Syrup 15 Ml FEEDTUBE PRN PRN Hypoglycemia Simple Syrup 30 ml 02/02/22 08:08 Simple Syrup 15 Ml FEEDTUBE PRN PRN Hypoglycemia Sodium Bicarbonate 325 mg 02/02/22 08:08 Sodium Bicarbonate 325 Mg Tab FEEDTUBE PRN PRN For Clogged Feeding Tube Sodium Chloride 10 ml 02/01/22 10:00 02/21/22 10:04 Sodium Chloride 0.9% 10 Ml Flush Syringe IV 10 ml BID JAMIL Administration Sodium Chloride 10 ml 02/01/22 00:57 02/09/22 05:59 Sodium Chloride 0.9% 10 Ml Flush Syringe IV 10 ml PRN PRN Administration LINE FLUSH HEART Score - HEART Score Troponin: Troponin T < 0.010 ng/mL (0.00-0.029) 02/03/22 16:15
--- NOTE | 2022-02-21 16:15 | Progress Note ---
<NICOLA TREVINO - Last Filed: 02/21/22 16:19> Assessment and Plan Assessment and plan: This is a 61-year-old female with known past medical history of DM, dementia, HLD, and HTN initially admitted for Hypoglycemia then went into DKA and was transferred to the ICU where she PEA arrested on 02/01. Patient is now with septic shock and on ventilatory support. Hospital Course to Date: 02/01: patient was transferred to ICU as lab work was consistent with DKA and started on insulin drip. Central line placed for IV access. Patient was given bicarb push and started on a bicarb drip. She was also started on Rocephin due to UTI however antibiotics are broadened to cefepime and vancomycin. 02/02: s/p cardiac arrest on 02/01. Bicarbonate drip discontinued. Pancytopenia noted, anion gap closed and transitioned to SSI and long-acting insulin. Patient was having hypoglycemia this morning which has been corrected now. Started on tube feeding. Potassium and phosphorus will be repleted. Hype rnatremia noted and FWF started with tube feedings. COVID-19 PCR pending. Venous Doppler ultrasound pending. Neurology and cardiology consulted. Echocardiogram pending. Patient currently on Levophed and sedated with propofol. Fentanyl added. Given 1 LR bolus this morning for hypotension. 02/03: LR bolus x2, remains on levophed, tachycardia and EKG completed which shows tachycardia. Increase in FiO2, Will culture with next temp spike. Will give 1 gm Calcium Gluconate. 02/04: S/p Bronch this am by [facility] at the bedside. Patient still spiking high temp despite broad spectrum IV Abx. Remains on high pressors with worsen neutropenia and thrombocytopenia. Will panculture this am, antifungal culture was also ordered. Continue current empiric IV Abx for now, awaiting sensitivity. Will also consult ID for further eval. Possible Hematology consult for pancytopenia per CCM. Possible family meeting with [facility] this week, case management to arrange. 02/05: Back up on full support on the vent. CXR with worsen bilateral opacities, S/p X1 dose of IV lasix. Patient also received 1units of PRBCs overnight due to anemia, H&H stable this am and no s/s of any active bleeding. Patient remains pancytopenic, still febrile. IV abx changed to Merrem and Vanc per ID, hematology consult pending. ST with episodes of SVT this am, plan for amiodarone gtt per Cardio. Off pressors this am. BP remains boderline, 25% IV Albumin and X1 dose of additional IV lasix gain today per CCM. Continue FWF for hypernatremi a. Lantus adjusted due to hypoglycemia. Possible family meeting tomorrow with [facility]. 8/3: Decompensated this am, sudden drop in SPO2 in the 80s, HR in the 50s, and MAP in the 40s. Back on 2 pressors, on 100% FIO2 and 12 of peep. Stat ABG pending, 1amp Bcarb given, stress dose steroids initiated. This an CXR reviewed with worsen opacities from prior. Patient remains on IV abx per ID. Hematology recommendations appreciated. Event discussed with [facility] who agreed with current intervention. Patient's daughter and sister were notified via phone. Current events, patient's diagnosis, overal condition, and poor prognosis were thoroughly discussed. GOC was also addressed with patient's daughter and sister, they voiced that if patient was able to speak for herself she would want all lifesaving measures, including CPR and medications if her heart stop. All questions and concerns were addressed at this time. They verbalized understanding and agreed with current care plan. Patient remains a FULL code status at This time. 84: Responded well to IV lasix and albumin overnight. CXR with some improvement today. IV lasix and albumin gain today per CCM. With increased WOB and tachpnea this am, low dose propofol added for RASS goal of 0 to -2. Wean FIO2 as tolerated for SPO2 goal above 92%. Worsen hyperglycemia this am, most like due to IV steroids, insulin therapy adjusted. Monitor and replace electrolytes as needed. Family meeting today with [facility], patient remains a FULL code status. 85: Tolerating gentle diurese. Patient missed overnight IV lasix/albumin dose, will repeat another dose this morning. Continue to wean Fio2 as tolerated. Remains off pressors, VSS. Concern for BLE ischemia probably due to hypoperfusion vs pressor use. Will check BLE arterial doppler to r/o occlusion. Possible Vascular Surgery consult dependent on doppler result. Lantus adjusted for persisting hyperglycemia. Electrolytes repleted, monitor and replace electrolytes as needed. 86: This am ABG and CXR with some improvement this am. Down to 55% Fio2 this am. Hypotensive overnight required short duration of Levophed gtt, pressor is off this am. Will hold on IV diuretic today. Continue to monitor for now. Electrolytes repleted, monitor and replace electrolytes as needed. Prior history of psych issues, seroquel added BID. BLE doppler pending. 02/10: Remains stable on the vent. Down to 40% Fio2 and peep of 10 this am, SPO2 above 95%, CXR is unchanged. Continue vent wean as tolerated. Remains on IV steroid, will start tapering tomorrow. Per [facility], plan is to optimize patient on the vent for possible trach and PEG. FWF increased for persistent hypernatremia. K and phos repleted. Continue to monitor and replace electrolytes as needed. 02/11: Water flush continued at 300 mL every 4, potassium repleted, remains on vasopressors. No acute events reported overnight. intiate seriod taper 02/12: Patient being weaned down IV fentanyl pushes ordered, Lantus decreased, decreased PEEP and RT placed on pressure support this afternoon. No acute events overnight. 02/13: Patient attempted on PSV again today, steroids continue to be tapered. Tentative extubation tomorrow was supplanted by [facility]. Patient only lasted 3 hours again today. Vascular surgery consult completed and recommended plavix. 02/14: Patient was extubated today to nasal cannula. This afternoon she was started on high flow nasal cannula. No acute events reported overnight. Steroids tapered. Femoral A-line removed. 02/15: No acute events reported overnight. Surgery consulted for trach/PEG.. COVID-[address] abdomen/pelvis pending. Possible trach/PEG placement on 02/18. 02/16: PICC line to be placed today. Given 1 dose of albumin with Lasix. Discontinue CVL. No acute events reported overnight. 02/17: No acute events reported overnight, now bilateral lower extremities with discoloration. Plavix scheduled to start Friday. PEG/trach scheduled for Friday. PICC line consent obtained. lantus adjusted. CPAP today. 02/18: KYLAH overnight. Plan for trach and PEG today by General Surgery in OR. Worsen LE ischemia noted, pending CTA chest/Abd/pelvis. Vascular Surgery is also following. 02/19: s/p Trach and PEG yesterday. Patient did not tolerate TF overnight, projectile vomitting reported. TF currently on hold, KUB is unremarkable. Scheduled reglan added, will hold TF for now. High fevers with worsen leukocytosis this am, will panculture for now. ST, HR in the 130s this am, BP stable. 1L of IVF bolus given, will hold IV Abx for now. Will added low rate D10w for now for hypoglycemia, most likely due to NPO status. Will also hold Lantus, resume once TF is tolerated. CTA chest/ABd/Pelvis still pendinf, awaiting Vascular surgery final recommendation for mitchell ischemia. 02/20: Remains stable on the vent, AAO, following commands this am. CTA chest reveal incidental PE, BLE doppler also positive DVT in right common femoral vein. Therapeutic Lovenox initiated. Still with persistent fevers, repeat cultures with no growth to date. Fevers probably secondary to DVT/PE. T achycardic in the 140s this am, 500 cc of IVF bolus administered, HR improved in the 100- 110s, VSS. Vomiting resolved, resume TF as ordered. Awaiting Vascular surgery final recommendation for limb ischemia. 02/21: Remains stable on the vent, fevers and leukocytosis improved, VSS. Vascular surgery recommendations noted, no plan for any intervention at this time. Continue Plavix and therapeutic Lovenox for VTE and PE. Possible discharge to LTAC tomorrow. Assessment and Plan #Septic Shock #Supraventricular Tachycardia(SVT) #S/p PEA Arrest with ROSC #H/o HTN, HLD - Coded in the ICU on 02/01, PEA arrest - ROSC achieved post 1amp of bcarb and EPI - With tachycardia, persistent fevers, s/p multiple pressors - off pressors this am. ST on the monitor, VSS - On Stress dose steroids- tapering - Echo reviewed, EF 55-60%, see report for detail - Cardiology consulted, appreciated recommendations - amiodarone gtt transitioned to PO per Cardio - Continue blood pressure monitor per protocol - Pressor on standby for MAP less than 65 #Acute Hypoxic Respiratory Failure #ARDS #Bilateral Pneumonia - Intubated during code on 02/01 - This am CXR with worsening bilateral airspace opacities - 02/04 s/p Bronchoscopy at the bedside by [facility]- BAL sent to lab - 02/18 s/p Trach and PEG-Tube placement - Vent setting: PRVC-25%,6,12,350 - s/p albumin and IV lasix - [facility] consulted, appreciate recommendations - Continue vent wean per CCM - VAP bundle addressed - Aspiration precaution HOB above 30 - Daily ABG and CXR - Continue SPO2 monitoring for SPO2 goal above 92% - Per CCM, plan is to optimize patient on the vent for possible trach and PEG #Persistent Fevers #Septic Shock #Bilateral Pneumonia #Urinary Tract Infection(UTI) - UA consistent with pyuria, Blood cultures with NGTD, Sputum culture with Klebsiella Pneumoniae, repeat cultures with NGTD - Completed Iv Abx course per ID - Now with high fevers and worsen leukocytosis - Cultures with NGTD - Fevers probably secondary to DVT/PE. - hold off on IV abx for now - f/u on culture - Monitor CBC and temperature curve - ID signed off. Reconsult if cultures + #Microcytic Anemia #Pancytopenia-Resolved - Significant drop of WBCs and Plt count from admit - Probably due to septic shock, on IV Abx per ID - S/p 2unit PRBCs - No s/s of active bleeding, H&H stable this am - Continue to trend CBC - Hematology signed off #Acute Metabolic Encephalopathy #h/o Dementia and Psych Issues - Intubated and Sedated- on fentanyl - Titrate sedations for RASS goal of 0 to -2 - Seroquel added BID - Daily SAT and SBT per [facility] - Avoid benzodiazepine to reduce the possibility of delirium - PRN Analgesia for CPOT greater than 3 - Maintenance of sleep-wake cycle - Neurology consulted, appreciate recommendations #Acute Pulmonary Emboli #Acute RLE DVT - CTA chest reveal incidental small nonocclusive PE - BLE doppler positive DVT DVT in right common femoral vein - Therapeutic Lovenox initiated #Hypokalemia #Hypernatremia - Strict intake and output - Avoid nephrotoxic medications - Monitor and replace electrolytes as needed #BLE Ischemia - probably due to hypoperfusion vs pressor use. - BLE arterial doppler noted - Vascular Surgery consulted - CTA chest/Abd/Plevis reviewed - No plan for any intervention at this time per Vascular surgery - Continue Plavix and Lovenix BID #Type 2 Diabetes mellitus #S/p DKA - initially presented with hypoglycemia then went into DKA - s/p DKA protocol - Hemoglobin A1c 11.1 - Now with hyperglycemia, most likely due to IV steroids - Continue BG and SSI Q6hrs and Lantus qHs- Held due to hypoglycemia - Avoid Hypoglycemia #GI/DVT Prophylaxis - PPI- Pepcid - Lovenox BID - SCDs to bilateral lower extremities while in bed #Advance Care Planning - Patient's diagnosis, overal condition, and poor prognosis were thoroughly di scussed. GOC was also addressed with patient's daughter and sister, they voiced that if patient was able to speak for herself she would want all lifesaving measures, including CPR and medications if her heart stop. All questions and concerns were addressed at this time. They verbalized understanding and agreed with current care plan. Patient remains a FULL code status at This time. The high probability of a clinically significant, sudden or life threatening deterioration of the [Multiple] system(s) required my full and direct attention, intervention and personal management. The aggregate critical care time was [60] minutes. This time is in addition to time spent performing reported procedures but includes the following: [x] Data Review and interpretation [x] Patient assessment and monitoring of vital signs [x] Documentation [x] Medication orders and management Disposition Plan: ICU Total Time Spent with Patient (Minutes): 60 History Interval history: Patient seen and examined at the bedside. Remains stable, awake and following simple commands. Not on any sedations. Fevers improve, VSS. KYLAH overnight Hospitalist Physical - Physical exam Narrative exam: General appearance: Present: no acute distress, other (s/p trach, stable on the vent) - EENT Eyes: Present: PERRLA - Respiratory Respiratory effort: Unlabored Respiratory: bilateral: rhonchi, wheezing - Cardiovascular Rhythm: regular Heart Sounds: Present: S1 & S2 - Extremities Extremities: Abnormal. BLE cold to touch, ischemia. Absent pulses Extremity abnormal: edema - Peripheral Assessment Generalized Edema Type: Pitting Edema Degree: 2+ Capillary Refill: < 3 seconds Skin Temperature: Warm Peripheral Pulses: within normal limits - Abdominal General gastrointestinal: soft, non-distended, normal bowel sounds - Integumentary Integumentary: Present: warm (Weeping) - Psychiatric Psychiatric: Awake and appropriate, cooperative - Neurologic Neurologic: move all extremities, other (AAO, following simple commands) - Allied Health Allied health notes reviewed: nursing, case management - Constitutional Vitals: Temp Pulse Resp BP Pulse Ox 98 F 114 H 16 118/85 100 02/21/22 16:00 02/21/22 16:00 02/21/22 16:00 02/21/22 16:00 02/21/22 16:00 General appearance: Present: other (Nonresponsive) HEART Score - HEART Score Troponin: Troponin T < 0.010 ng/mL (0.00-0.029) 02/03/22 16:15 Results - Labs CBC & Chem 7: 02/21/22 04:27 02/21/22 04:27 Labs: Laboratory Last Values WBC 17.1 K/mm3 (4.5-11.0) H 02/21/22 04:27 RBC 3.41 M/mm3 (3.65-5.03) L 02/21/22 04:27 Hgb 7.4 gm/dl (10.1-14.3) L 02/21/22 04:27 Hct 23.6 % (30.3-42.9) L 02/21/22 04:27 MCV 69 fl (79-97) L 02/21/22 04:27 MCH 22 pg (28-32) L 02/21/22 04:27 MCHC 31 % (30-34) 02/21/22 04:27 RDW 30.1 % (13.2-15.2) H 02/21/22 04:27 Plt Count 410 K/mm3 (140-440) 02/21/22 04:27 Lymph % (Auto) [employer] 02/02/22 04:00 Add Manual Diff Complete 02/03/22 04:00 Total Counted 50 02/03/22 04:00 Seg Neutrophils % [employer] 02/02/22 04:00 Seg Neuts % (Manual) 76.0 % (40.0-70.0) H 02/03/22 04:00 Band Neutrophils % 18.0 % 02/03/22 04:00 Lymphocytes % (Manual) 2.0 % (13.4-35.0) L 02/03/22 04:00 Reactive Lymphs % (Man) 0 % 02/03/22 04:00 Monocytes % (Manual) 4.0 % (0.0-7.3) 02/03/22 04:00 Eosinophils % (Manual) 0 % (0.0-4.3) 02/03/22 04:00 Basophils % (Manual) 0 % (0.0-1.8) 02/03/22 04:00 Metamyelocytes % 0 % 02/03/22 04:00 Myelocytes % 0 % 02/03/22 04:00 Promyelocytes % 0 % 02/03/22 04:00 Blast Cells % 0 % 02/03/22 04:00 Nucleated RBC % 4.0 % (0.0-0.9) H 02/03/22 04:00 Seg Neutrophils # Man 2.8 K/mm3 (1.8-7.7) 02/03/22 04:00 Band Neutrophils # 0.7 K/mm3 02/03/22 04:00 Lymphocytes # (Manual) 0.1 K/mm3 (1.2-5.4) L 02/03/22 04:00 Abs React Lymphs (Man) 0.0 K/mm3 02/03/22 04:00 Monocytes # (Manual) 0.1 K/mm3 (0.0-0.8) 02/03/22 04:00 Eosinophils # (Manual) 0.0 K/mm3 (0.0-0.4) 02/03/22 04:00 Basophils # (Manual) 0.0 K/mm3 (0.0-0.1) 02/03/22 04:00 Metamyelocytes # 0.0 K/mm3 02/03/22 04:00 Myelocytes # 0.0 K/mm3 02/03/22 04:00 Promyelocytes # 0.0 K/mm3 02/03/22 04:00 Blast Cells # 0.0 K/mm3 02/03/22 04:00 WBC Morphology Not Reportable 02/03/22 04:00 Hypersegmented Neuts Not Reportable 02/03/22 04:00 Hyposegmented Neuts Not Reportable 02/03/22 04:00 Hypogranular Neuts Not Reportable 02/03/22 04:00 Smudge Cells Not Reportable 02/03/22 04:00 Toxic Granulation Not Reportable 02/03/22 04:00 Toxic Vacuolation Not Reportable 02/03/22 04:00 Dohle Bodies Few 02/03/22 04:00 Pelger-Huet Anomaly Not Reportable 02/03/22 04:00 Sung Rods Not Reportable 02/03/22 04:00 Platelet Estimate Consistent w auto 02/03/22 04:00 Clumped Platelets Not Reportable 02/03/22 04:00 Plt Clumps, EDTA Not Reportable 02/03/22 04:00 Large Platelets Not Reportable 02/03/22 04:00 Giant Platelets Not Reportable 02/03/22 04:00 Platelet Satelliting Not Reportable 02/03/22 04:00 Plt Morphology Comment Not Reportable 02/03/22 04:00 RBC Morphology Not Reportable 02/03/22 04:00 Dimorphic RBCs Not Reportable 02/03/22 04:00 Polychromasia Not Reportable 02/03/22 04:00 Hypochromasia 3+ 02/03/22 04:00 Poikilocytosis 2+ 02/03/22 04:00 Anisocytosis 1+ 02/03/22 04:00 Microcytosis 2+ 02/03/22 04:00 Macrocytosis Not Reportable 02/03/22 04:00 Spherocytes Not Reportable 02/03/22 04:00 Pappenheimer Bodies Not Reportable 02/03/22 04:00 Sickle Cells Not Reportable 02/03/22 04:00 Target Cells 1+ 02/03/22 04:00 Tear Drop Cells Few 02/03/22 04:00 Ovalocytes Few 02/03/22 04:00 Helmet Cells Not Reportable 02/03/22 04:00 [place] Bodies Not Reportable 02/03/22 04:00 [place] Rings Not Reportable 02/03/22 04:00 [place] Cells 1+ 02/03/22 04:00 Bite Cells Not Reportable 02/03/22 04:00 Crenated Cell Not Reportable 02/03/22 04:00 Elliptocytes Few 02/03/22 04:00 Acanthocytes (Spur) Not Reportable 02/03/22 04:00 Rouleaux Not Reportable 02/03/22 04:00 Hemoglobin C Crystals Not Reportable 02/03/22 04:00 Schistocytes Rare 02/03/22 04:00 Malaria parasites Not Reportable 02/03/22 04:00 Percent Retic 0.65 % (0.78-2.58) L 02/08/22 03:55 Sven Bodies Not Reportable 02/03/22 04:00 Hem Pathologist Commnt No 02/03/22 04:00 PT 13.7 Sec. (12.2-14.9) 02/18/22 04:00 INR 0.95 (0.87-1.13) 02/18/22 04:00 APTT 29.5 Sec. (24.2-36.6) 02/16/22 04:36 Fibrinogen 795 mg/dl (211-480) H 02/05/22 08:48 ABG pH 7.463 pH Units (7.350-7.450) H 02/17/22 05:06 POC ABG pCO2 37.3 mmHg (32.0-48.0) 02/02/22 04:49 ABG pCO2 46.8 mm Hg 02/17/22 05:06 POC ABG pO2 79.9 mmHg (83-108) L 02/02/22 04:49 ABG pO2 113.6 mm Hg (80.0-90.0) H 02/17/22 05:06 POC ABG HCO3 30.3 02/02/22 04:49 ABG HCO3 32.8 mmol/L (20.0-26.0) H 02/17/22 05:06 ABG O2 Saturation 98.2 % (95.0-99.0) 02/17/22 05:06 ABG O2 Content 11.0 (0.0-44) 02/17/22 05:06 POC ABG Base Excess 7.1 02/02/22 04:49 ABG Base Excess 8.1 mmol/L (-2.0-3.0) H 02/17/22 05:06 ABG Hemoglobin 8.0 gm/dl (12.0-16.0) L 02/17/22 05:06 ABG Oxyhemoglobin 96.0 (94-98) 02/02/22 04:49 ABG Carboxyhemoglobin 1.7 % (0.0-5.0) 02/17/22 05:06 ABG Methemoglobin 0.5 % (0.0-1.5) 02/17/22 05:06 ABG Sodium Not Reportable 02/02/22 04:49 ABG Potassium Not Reportable 02/02/22 04:49 ABG Chloride Not Reportable 02/02/22 04:49 ABG Glucose Not Reportable 02/02/22 04:49 Oxyhemoglobin 96.0 % (95.0-99.0) 02/17/22 05:06 Carboxyhemoglobin 0.2 (0.5-1.5) L 02/02/22 04:49 FiO2 30 % 02/17/22 05:06 FiO2 % 60.0 02/02/22 04:49 Sodium 142 mmol/L (137-145) 02/21/22 04:27 Potassium 3.7 mmol/L (3.6-5.0) 02/21/22 04:27 Chloride 108.2 mmol/L (98-107) H 02/21/22 04:27 Carbon Dioxide 27 mmol/L (22-30) 02/21/22 04:27 Anion Gap 11 mmol/L 02/21/22 04:27 BUN 10 mg/dL (7-17) 02/21/22 04:27 Creatinine 0.3 mg/dL (0.6-1.2) L 02/21/22 04:27 Estimated GFR > 60 ml/min 02/21/22 04:27 BUN/Creatinine Ratio 33 % 02/21/22 04:27 Glucose 107 mg/dL (65-100) H 02/21/22 04:27 POC Glucose 95 mg/dL (70-105) 02/21/22 12:27 Hemoglobin A1c 11.1 % (4-6) H 02/01/22 12:54 Lactic Acid 2.50 mmol/L (0.7-2.0) H* 02/06/22 11:50 Calcium 8.9 mg/dL (8.4-10.2) 02/21/22 04:27 Phosphorus 3.00 mg/dL (2.5-4.5) 02/21/22 04:27 Magnesium 2.00 mg/dL (1.7-2.3) 02/21/22 04:27 Total Bilirubin 0.50 mg/dL (0.1-1.2) 02/17/22 05:00 Direct Bilirubin < 0.2 mg/dL (0-0.2) 02/13/22 04:00 Indirect Bilirubin 0.1 mg/dL 02/13/22 04:00 AST 38 units/L (5-40) 02/17/22 05:00 ALT 28 units/L (7-56) 02/17/22 05:00 Alkaline Phosphatase 102 units/L (35-129) 02/17/22 05:00 Lactate Dehydrogenase 879 units/L (91-180) H 02/05/22 04:40 Troponin T < 0.010 ng/mL (0.00-0.029) 02/03/22 16:15 Total Protein 5.4 g/dL (6.3-8.2) L 02/17/22 05:00 Albumin 2.5 g/dL (3.9-5) L 02/17/22 05:00 Albumin/Globulin Ratio 0.9 % 02/17/22 05:00 Arterial Blood Glucose Not Reportable 02/02/22 04:49 Urine Color Straw (Yellow) 02/19/22 18:15 Urine Turbidity Clear (Clear) 02/19/22 18:15 Urine pH 8.0 (5.0-7.0) H 02/19/22 18:15 Ur Specific [place] 1.000 (1.003-1.030) L 02/19/22 18:15 Urine Protein 30 mg/dl mg/dL (Negative) 02/19/22 18:15 Urine Glucose (UA) Negative mg/dL (Negative) 02/19/22 18:15 Urine Ketones 5 mg/dL (Negative) 02/19/22 18:15 Urine Blood 1+ (Negative) 02/19/22 18:15 Urine Nitrite Negative (Negative) 02/19/22 18:15 Ur Reducing Substances Not Reportable 02/19/22 18:15 Urine Bilirubin Negative (Negative) 02/19/22 18:15 Urine Ictotest Not Reportable 02/19/22 18:15 Urine Urobilinogen Small mg/dL (<2.0) 02/19/22 18:15 Ur Leukocyte Esterase Negative (Negative) 02/19/22 18:15 Urine WBC (Auto) 2.0 /HPF (0.0-6.0) 02/19/22 18:15 Urine RBC (Auto) 3.0 /HPF (0.0-6.0) 02/19/22 18:15 U Epithel Cells (Auto) 1.0 /HPF (0-13.0) 02/04/22 09:15 Urine Bacteria (Auto) 1+ /HPF (Negative) 02/19/22 18:15 Urine Mucus Few /HPF 02/04/22 09:15 Urine Yeast (Budding) 2+ /HPF 02/04/22 09:15 Vancomycin Trough 28.6 ug/mL (5.0-20.0) H 02/05/22 Unknown Coronavirus (PCR) Negative (Negative) 02/02/22 10:44 SARS-CoV-2 (PCR) Negative (Negative) 02/15/22 09:39 HIV 1&2 Antibody Rapid Non react (Non React) 02/04/22 14:37 HIV P24 Antigen Non react (Non React) 02/04/22 14:37 Blood Type A POSITIVE 02/13/22 09:41 Antibody Screen Negative 02/13/22 09:41 Crossmatch See Detail 02/13/22 09:41 Microbiology: Microbiology 02/19/22 14:51 Peripheral/Venous Blood Culture - Preliminary NO GROWTH AFTER 48 HOURS 02/19/22 14:51 Peripheral/Venous Blood Culture - Preliminary NO GROWTH AFTER 48 HOURS 02/19/22 18:43 Tracheal Aspirate Sputum Culture - Preliminary Gastelum/IV: Voiding Method External Female Catheter Active Medications - Current Medications Current Medications: Generic Name Dose Route Start Last Admin Trade Name Freq PRN Reason Stop Dose Admin Acetaminophen 650 mg 02/20/22 02:09 02/20/22 03:35 Acetaminophen 650 Mg Rect Supp [place] 650 mg Q6H PRN Administration Fever >101 Albuterol 2.5 mg 02/01/22 00:57 Albuterol 2.5 Mg/3 Ml Nebu IH Q3HRT PRN Shortness Of Breath Lipase/Protease/Amylase 1 each 02/02/22 08:08 Lipase 10,500/Protease 25,000/Amylase 43,750 (Units) Dr Avelar FEEDTUBE PRN PRN For Clogged Feeding Tube Atorvastatin Calcium 20 mg 02/03/22 22:00 02/20/22 21:02 Atorvastatin 20 Mg Tab FEEDTUBE 20 mg QHS JAMIL Administration Clopidogrel Bisulfate 75 mg 02/19/22 10:00 02/21/22 10:04 Clopidogrel 75 Mg Tab FEEDTUBE 75 mg QDAY JAMIL Administration Dextrose 50 ml 02/02/22 08:00 02/14/22 18:10 Dextrose 50% In Water (25gm) 50 Ml Syringe IV 50 ml Q30MIN PRN Administration Hypoglycemia Protocol Enoxaparin Sodium 40 mg 02/20/22 22:00 02/21/22 10:04 Enoxaparin 40 Mg/0.4 Ml Inj SUB-Q 40 mg BID JAMIL Administration Protocol Famotidine 20 mg 02/04/22 10:00 02/21/22 10:04 Famotidine 20 Mg Tab FEEDTUBE 20 mg BID JAMIL Administration Fentanyl 50 mcg 02/12/22 10:11 02/20/22 09:41 Fentanyl 100 Mcg/2 Ml Inj IV 50 mcg Q2H PRN Administration VENT SYNCHRONY/AGITATION Hydrophilic Ointment 1 applic 02/01/22 18:52 02/17/22 13:52 Lip Therapy Vaseline TP 1 applic Q2HR PRN Administration Dry Lips Insulin Glargine 10 units 02/20/22 22:00 02/20/22 22:17 Insulin Glargine 100 Units/Ml SUB-Q 10 units QHS JAMIL Administration Insulin Human Regular 0 units 02/02/22 18:00 02/21/22 13:09 Insulin Regular, Human 100 Units/1 Ml SUB-Q Not Given Q6H [facility] Protocol Mirtazapine 15 mg 02/20/22 22:00 02/20/22 21:02 Mirtazapine 15 Mg Tab FEEDTUBE 15 mg QHS JAMIL Administration Multi-Ingred Cream/Lotion/Oil/Oint 1 applic 02/01/22 18:52 Mineral Oil/Petrolatum, White Ophth Oint 3.5 Gm OU Q4HR PRN Dry Eye(s) Ondansetron HCl 4 mg 02/01/22 00:57 02/19/22 06:08 Ondansetron 4 Mg/2 Ml Inj IV 4 mg Q8H PRN Administration Nausea And Vomiting Prednisone 5 mg 02/22/22 10:00 Prednisone 5 Mg Tab FEEDTUBE 02/22/22 10:01 QDAY JAMIL Quetiapine Fumarate 50 mg 02/19/22 22:00 02/21/22 10:04 Quetiapine 25 Mg Tab FEEDTUBE 50 mg BID JAMIL Administration Senna/Docusate Sodium 2 tab 02/19/22 22:00 02/21/22 10:04 Sennosides/Docusate Sodium 8.6/50 Mg Tab FEEDTUBE 2 tab Q12H JAMIL Administration Simple Syrup 15 ml 02/02/22 08:08 Simple Syrup 15 Ml FEEDTUBE PRN PRN Hypoglycemia Simple Syrup 30 ml 02/02/22 08:08 Simple Syrup 15 Ml FEEDTUBE PRN PRN Hypoglycemia Sodium Bicarbonate 325 mg 02/02/22 08:08 Sodium Bicarbonate 325 Mg Tab FEEDTUBE PRN PRN For Clogged Feeding Tube Sodium Chloride 10 ml 02/01/22 10:00 02/21/22 10:04 Sodium Chloride 0.9% 10 Ml Flush Syringe IV 10 ml BID JAMIL Administration Sodium Chloride 10 ml 02/01/22 00:57 02/09/22 05:59 Sodium Chloride 0.9% 10 Ml Flush Syringe IV 10 ml PRN PRN Administration LINE FLUSH Nutrition/Malnutrition Assess - Dietary Evaluation Nutrition/Malnutrition Findings: Nutrition Notes Start: 02/01/22 17:50 Freq: Status: Active Protocol: Document 02/19/22 14:47 JACQUELINE (Rec: 02/19/22 15:20 JACQUELINE [id number]) Nutrition Notes Need for Assessment generated from: Low BMI Initial or Follow up Reassessment Current Diagnosis Diabetes,Sepsis,Respiratory Failure Other Pertinent Diagnosis s/p DKA, s/p PEA Arrest, Pneumonia, Pyuria, Pancytopenia, UTI, ... Current Diet TF-Glucerna 1.2 More[place] @ 55 ml/hr (since D 02/18). Labs/Tests 02/19: Crea 0.3, Glu 143. Pertinent Medications 02/19: D10w @ 42 ml/hr, others nutritionally unremarkable. Height 5 ft 4 in Weight 47 kg Gary Body Weight (kg) 54.54 BMI 17.7 Weight change and time frame 1.8 Kg body weight loss in 1 week reported. Weight Status Underweight Subjective/Other Information RD consult for routine F/U on TF tolerance/continuation, and Low BMI assessment. TF continues as prescribed, but currently on hold, due to vomiting episode after PEG placement, according to RN notes. Pt remains on Mechanical Ventilation, O2 saturation @ 100%, according to Physical Assessment History notes. PEG-tube placement on 02/18, well tolerated, according to Operative Report notes. Pt's Low BMI seems to correspond to a natural body composition, and not related to a sudden loss of body weight nor chronic malnutrition, since no signs of concern were mentioned in the Physical Assessment History or the Progress notes. Percent of energy/protein needs met: Prescribed TF-Glucerna 1.2 More[place] @ 55 ml/hr provides for energy/protein needs (1584 Kcal/79 g) during LOS, 97% Kcal; 100% AA. Burn Absent Trauma Absent GI Symptoms Vomiting Difficulty In Swallowing Food Allergy No Skin Integrity/Comment Unspecified area of concern. Current % PO Other Minimum of two criteria No Fluid Accumulation N/A Reduced Dynamo Repairer Strength N/A (non-severe) Protein-Calorie Malnutrition N\A #1 Nutrition Diagnosis Inadequate oral intake Diagnosis Progress(for reassessment Continues documentation) Is patient on ventilator? Yes Is Patient Ambulatory and/or Out of Bed No REE-([facility]-confined to bed) 1241.100 Kcal/Kg value to use for calculation 34 Approximate Energy Requirements Using 1598 kcal/Kg Calculation Used for Recommendations Kcal/kg Additional Notes Protein: 1.2-2 g/Kg ABW; 56-93 g/day. Fluids: 1 ml/Kcal, or as per MD. Nutrition Intervention Nutrition Support: Continue TF-Glucerna 1.2 Moreno @ 55 ml/hr. Flush: 100 ml water Q 4 hr, or as per MD. Kcal 1,584 Protein (gm) 79 Carbohydrates (gm) 151 Fat (gm) 79 Fluid (mL) 1,063 Fiber (gm) 21 % RDI: 97% Kcal; 100% AA. Goal #1 Provide at least 75% of energy /protein needs through Enteral Feeding during LOS. Follow-Up By: 03/05/22 Additional Comments Continue monitoring TF tolerance, Mechanical Ventilation, and BM. <MELISSA WHITE - Last Filed: 02/21/22 20:14> Assessment and Plan Assessment and plan: I saw and evaluated the patient. I agree with the findings and the plan of care as documented in the Nurse Practitioner's~note, with the following corrections and additions. Hospitalist Physical - Constitutional Vitals: Temp Pulse Resp BP Pulse Ox 99.1 F 105 H 21 118/80 100 02/21/22 19:35 02/21/22 18:00 02/21/22 18:00 02/21/22 18:00 02/21/22 18:00 HEART Score - HEART Score Troponin: Troponin T < 0.010 ng/mL (0.00-0.029) 02/03/22 16:15 Results - Labs CBC & Chem 7: 02/21/22 04:27 02/21/22 04:27 Labs: Laboratory Last Values WBC 17.1 K/mm3 (4.5-11.0) H 02/21/22 04:27 RBC 3.41 M/mm3 (3.65-5.03) L 02/21/22 04:27 Hgb 7.4 gm/dl (10.1-14.3) L 02/21/22 04:27 Hct 23.6 % (30.3-42.9) L 02/21/22 04:27 MCV 69 fl (79-97) L 02/21/22 04:27 MCH 22 pg (28-32) L 02/21/22 04:27 MCHC 31 % (30-34) 02/21/22 04:27 RDW 30.1 % (13.2-15.2) H 02/21/22 04:27 Plt Count 410 K/mm3 (140-440) 02/21/22 04:27 Lymph % (Auto) [employer] 02/02/22 04:00 Add Manual Diff Complete 02/03/22 04:00 Total Counted 50 02/03/22 04:00 Seg Neutrophils % [employer] 02/02/22 04:00 Seg Neuts % (Manual) 76.0 % (40.0-70.0) H 02/03/22 04:00 Band Neutrophils % 18.0 % 02/03/22 04:00 Lymphocytes % (Manual) 2.0 % (13.4-35.0) L 02/03/22 04:00 Reactive Lymphs % (Man) 0 % 02/03/22 04:00 Monocytes % (Manual) 4.0 % (0.0-7.3) 02/03/22 04:00 Eosinophils % (Manual) 0 % (0.0-4.3) 02/03/22 04:00 Basophils % (Manual) 0 % (0.0-1.8) 02/03/22 04:00 Metamyelocytes % 0 % 02/03/22 04:00 Myelocytes % 0 % 02/03/22 04:00 Promyelocytes % 0 % 02/03/22 04:00 Blast Cells % 0 % 02/03/22 04:00 Nucleated RBC % 4.0 % (0.0-0.9) H 02/03/22 04:00 Seg Neutrophils # Man 2.8 K/mm3 (1.8-7.7) 02/03/22 04:00 Band Neutrophils # 0.7 K/mm3 07/31/22 04:00 Lymphocytes # (Manual) 0.1 K/mm3 (1.2-5.4) L 02/03/22 04:00 Abs React Lymphs (Man) 0.0 K/mm3 02/03/22 04:00 Monocytes # (Manual) 0.1 K/mm3 (0.0-0.8) 02/03/22 04:00 Eosinophils # (Manual) 0.0 K/mm3 (0.0-0.4) 02/03/22 04:00 Basophils # (Manual) 0.0 K/mm3 (0.0-0.1) 02/03/22 04:00 Metamyelocytes # 0.0 K/mm3 02/03/22 04:00 Myelocytes # 0.0 K/mm3 02/03/22 04:00 Promyelocytes # 0.0 K/mm3 02/03/22 04:00 Blast Cells # 0.0 K/mm3 02/03/22 04:00 WBC Morphology Not Reportable 02/03/22 04:00 Hypersegmented Neuts Not Reportable 02/03/22 04:00 Hyposegmented Neuts Not Reportable 02/03/22 04:00 Hypogranular Neuts Not Reportable 02/03/22 04:00 Smudge Cells Not Reportable 02/03/22 04:00 Toxic Granulation Not Reportable 02/03/22 04:00 Toxic Vacuolation Not Reportable 02/03/22 04:00 Dohle Bodies Few 02/03/22 04:00 Pelger-Huet Anomaly Not Reportable 02/03/22 04:00 Sung Rods Not Reportable 02/03/22 04:00 Platelet Estimate Consistent w auto 02/03/22 04:00 Clumped Platelets Not Reportable 02/03/22 04:00 Plt Clumps, EDTA Not Reportable 02/03/22 04:00 Large Platelets Not Reportable 02/03/22 04:00 Giant Platelets Not Reportable 02/03/22 04:00 Platelet Satelliting Not Reportable 02/03/22 04:00 Plt Morphology Comment Not Reportable 02/03/22 04:00 RBC Morphology Not Reportable 02/03/22 04:00 Dimorphic RBCs Not Reportable 02/03/22 04:00 Polychromasia Not Reportable 02/03/22 04:00 Hypochromasia 3+ 02/03/22 04:00 Poikilocytosis 2+ 02/03/22 04:00 Anisocytosis 1+ 02/03/22 04:00 Microcytosis 2+ 02/03/22 04:00 Macrocytosis Not Reportable 02/03/22 04:00 Spherocytes Not Reportable 02/03/22 04:00 Pappenheimer Bodies Not Reportable 02/03/22 04:00 Sickle Cells Not Reportable 02/03/22 04:00 Target Cells 1+ 02/03/22 04:00 Tear Drop Cells Few 02/03/22 04:00 Ovalocytes Few 02/03/22 04:00 Helmet Cells Not Reportable 02/03/22 04:00 [place] Bodies Not Reportable 02/03/22 04:00 [place] Rings Not Reportable 02/03/22 04:00 [place] Cells 1+ 02/03/22 04:00 Bite Cells Not Reportable 02/03/22 04:00 Crenated Cell Not Reportable 02/03/22 04:00 Elliptocytes Few 02/03/22 04:00 Acanthocytes (Spur) Not Reportable 02/03/22 04:00 Rouleaux Not Reportable 02/03/22 04:00 Hemoglobin C Crystals Not Reportable 02/03/22 04:00 Schistocytes Rare 02/03/22 04:00 Malaria parasites Not Reportable 02/03/22 04:00 Percent Retic 0.65 % (0.78-2.58) L 02/08/22 03:55 Sven Bodies Not Reportable 02/03/22 04:00 Hem Pathologist Commnt No 02/03/22 04:00 PT 13.7 Sec. (12.2-14.9) 02/18/22 04:00 INR 0.95 (0.87-1.13) 02/18/22 04:00 APTT 29.5 Sec. (24.2-36.6) 02/16/22 04:36 Fibrinogen 795 mg/dl (211-480) H 02/05/22 08:48 ABG pH 7.463 pH Units (7.350-7.450) H 02/17/22 05:06 POC ABG pCO2 37.3 mmHg (32.0-48.0) 02/02/22 04:49 ABG pCO2 46.8 mm Hg 02/17/22 05:06 POC ABG pO2 79.9 mmHg (83-108) L 02/02/22 04:49 ABG pO2 113.6 mm Hg (80.0-90.0) H 02/17/22 05:06 POC ABG HCO3 30.3 02/02/22 04:49 ABG HCO3 32.8 mmol/L (20.0-26.0) H 02/17/22 05:06 ABG O2 Saturation 98.2 % (95.0-99.0) 02/17/22 05:06 ABG O2 Content 11.0 (0.0-44) 02/17/22 05:06 POC ABG Base Excess 7.1 02/02/22 04:49 ABG Base Excess 8.1 mmol/L (-2.0-3.0) H 02/17/22 05:06 ABG Hemoglobin 8.0 gm/dl (12.0-16.0) L 02/17/22 05:06 ABG Oxyhemoglobin 96.0 (94-98) 02/02/22 04:49 ABG Carboxyhemoglobin 1.7 % (0.0-5.0) 02/17/22 05:06 ABG Methemoglobin 0.5 % (0.0-1.5) 02/17/22 05:06 ABG Sodium Not Reportable 02/02/22 04:49 ABG Potassium Not Reportable 02/02/22 04:49 ABG Chloride Not Reportable 02/02/22 04:49 ABG Glucose Not Reportable 02/02/22 04:49 Oxyhemoglobin 96.0 % (95.0-99.0) 02/17/22 05:06 Carboxyhemoglobin 0.2 (0.5-1.5) L 02/02/22 04:49 FiO2 30 % 02/17/22 05:06 FiO2 % 60.0 02/02/22 04:49 Sodium 142 mmol/L (137-145) 02/21/22 04:27 Potassium 3.7 mmol/L (3.6-5.0) 02/21/22 04:27 Chloride 108.2 mmol/L (98-107) H 02/21/22 04:27 Carbon Dioxide 27 mmol/L (22-30) 02/21/22 04:27 Anion Gap 11 mmol/L 02/21/22 04:27 BUN 10 mg/dL (7-17) 02/21/22 04:27 Creatinine 0.3 mg/dL (0.6-1.2) L 02/21/22 04:27 Estimated GFR > 60 ml/min 02/21/22 04:27 BUN/Creatinine Ratio 33 % 02/21/22 04:27 Glucose 107 mg/dL (65-100) H 02/21/22 04:27 POC Glucose 158 mg/dL (70-105) H 02/21/22 16:51 Hemoglobin A1c 11.1 % (4-6) H 02/01/22 12:54 Lactic Acid 2.50 mmol/L (0.7-2.0) H* 02/06/22 11:50 Calcium 8.9 mg/dL (8.4-10.2) 02/21/22 04:27 Phosphorus 3.00 mg/dL (2.5-4.5) 02/21/22 04:27 Magnesium 2.00 mg/dL (1.7-2.3) 02/21/22 04:27 Total Bilirubin 0.50 mg/dL (0.1-1.2) 02/17/22 05:00 Direct Bilirubin < 0.2 mg/dL (0-0.2) 02/13/22 04:00 Indirect Bilirubin 0.1 mg/dL 02/13/22 04:00 AST 38 units/L (5-40) 02/17/22 05:00 ALT 28 units/L (7-56) 02/17/22 05:00 Alkaline Phosphatase 102 units/L (35-129) 02/17/22 05:00 Lactate Dehydrogenase 879 units/L (91-180) H 02/05/22 04:40 Troponin T < 0.010 ng/mL (0.00-0.029) 02/03/22 16:15 Total Protein 5.4 g/dL (6.3-8.2) L 02/17/22 05:00 Albumin 2.5 g/dL (3.9-5) L 02/17/22 05:00 Albumin/Globulin Ratio 0.9 % 02/17/22 05:00 Arterial Blood Glucose Not Reportable 02/02/22 04:49 Urine Color Straw (Yellow) 02/19/22 18:15 Urine Turbidity Clear (Clear) 02/19/22 18:15 Urine pH 8.0 (5.0-7.0) H 02/19/22 18:15 Ur Specific [place] 1.000 (1.003-1.030) L 02/19/22 18:15 Urine Protein 30 mg/dl mg/dL (Negative) 02/19/22 18:15 Urine Glucose (UA) Negative mg/dL (Negative) 02/19/22 18:15 Urine Ketones 5 mg/dL (Negative) 02/19/22 18:15 Urine Blood 1+ (Negative) 02/19/22 18:15 Urine Nitrite Negative (Negative) 02/19/22 18:15 Ur Reducing Substances Not Reportable 02/19/22 18:15 Urine Bilirubin Negative (Negative) 02/19/22 18:15 Urine Ictotest Not Reportable 02/19/22 18:15 Urine Urobilinogen Small mg/dL (<2.0) 02/19/22 18:15 Ur Leukocyte Esterase Negative (Negative) 02/19/22 18:15 Urine WBC (Auto) 2.0 /HPF (0.0-6.0) 02/19/22 18:15 Urine RBC (Auto) 3.0 /HPF (0.0-6.0) 02/19/22 18:15 U Epithel Cells (Auto) 1.0 /HPF (0-13.0) 02/04/22 09:15 Urine Bacteria (Auto) 1+ /HPF (Negative) 02/19/22 18:15 Urine Mucus Few /HPF 02/04/22 09:15 Urine Yeast (Budding) 2+ /HPF 02/04/22 09:15 Vancomycin Trough 28.6 ug/mL (5.0-20.0) H 02/05/22 Unknown Coronavirus (PCR) Negative (Negative) 02/02/22 10:44 SARS-CoV-2 (PCR) Negative (Negative) 02/15/22 09:39 HIV 1&2 Antibody Rapid Non react (Non React) 02/04/22 14:37 HIV P24 Antigen Non react (Non React) 02/04/22 14:37 Blood Type A POSITIVE 02/13/22 09:41 Antibody Screen Negative 02/13/22 09:41 Crossmatch See Detail 02/13/22 09:41 Microbiology: Microbiology 02/19/22 18:43 Tracheal Aspirate Sputum Culture - Preliminary 02/19/22 14:51 Peripheral/Venous Blood Culture - Preliminary NO GROWTH AFTER 48 HOURS 02/19/22 14:51 Peripheral/Venous Blood Culture - Preliminary NO GROWTH AFTER 48 HOURS Gastelum/IV: Voiding Method External Female Catheter Active Medications - Current Medications Current Medications: Generic Name Dose Route Start Last Admin Trade Name Freq PRN Reason Stop Dose Admin Acetaminophen 650 mg 02/20/22 02:09 02/20/22 03:35 Acetaminophen 650 Mg Rect Supp [place] 650 mg Q6H PRN Administration Fever >101 Albuterol 2.5 mg 02/01/22 00:57 Albuterol 2.5 Mg/3 Ml Nebu IH Q3HRT PRN Shortness Of Breath Lipase/Protease/Amylase 1 each 02/02/22 08:08 Lipase 10,500/Protease 25,000/Amylase 43,750 (Units) Dr Avelar FEEDTUBE PRN PRN For Clogged Feeding Tube Atorvastatin Calcium 20 mg 02/03/22 22:00 02/20/22 21:02 Atorvastatin 20 Mg Tab FEEDTUBE 20 mg QHS JAMIL Administration Clopidogrel Bisulfate 75 mg 02/19/22 10:00 02/21/22 10:04 Clopidogrel 75 Mg Tab FEEDTUBE 75 mg QDAY JAMIL Administration Dextrose 50 ml 02/02/22 08:00 02/14/22 18:10 Dextrose 50% In Water (25gm) 50 Ml Syringe IV 50 ml Q30MIN PRN Administration Hypoglycemia Protocol Enoxaparin Sodium 40 mg 02/20/22 22:00 02/21/22 10:04 Enoxaparin 40 Mg/0.4 Ml Inj SUB-Q 40 mg BID JAMIL Administration Protocol Famotidine 20 mg 02/04/22 10:00 02/21/22 10:04 Famotidine 20 Mg Tab FEEDTUBE 20 mg BID JAMIL Administration Fentanyl 50 mcg 02/12/22 10:11 02/20/22 09:41 Fentanyl 100 Mcg/2 Ml Inj IV 50 mcg Q2H PRN Administration VENT SYNCHRONY/AGITATION Hydrophilic Ointment 1 applic 02/01/22 18:52 02/17/22 13:52 Lip Therapy Vaseline TP 1 applic Q2HR PRN Administration Dry Lips Insulin Glargine 10 units 02/20/22 22:00 02/20/22 22:17 Insulin Glargine 100 Units/Ml SUB-Q 10 units QHS JAMIL Administration Insulin Human Regular 0 units 02/02/22 18:00 02/21/22 17:41 Insulin Regular, Human 100 Units/1 Ml SUB-Q 3 units Q6H JAMIL Administration Protocol Mirtazapine 15 mg 02/20/22 22:00 02/20/22 21:02 Mirtazapine 15 Mg Tab FEEDTUBE 15 mg QHS JAMIL Administration Multi-Ingred Cream/Lotion/Oil/Oint 1 applic 02/01/22 18:52 Mineral Oil/Petrolatum, White Ophth Oint 3.5 Gm OU Q4HR PRN Dry Eye(s) Ondansetron HCl 4 mg 02/01/22 00:57 02/19/22 06:08 Ondansetron 4 Mg/2 Ml Inj IV 4 mg Q8H PRN Administration Nausea And Vomiting Prednisone 5 mg 02/22/22 10:00 Prednisone 5 Mg Tab FEEDTUBE 02/22/22 10:01 QDAY JAMIL Quetiapine Fumarate 50 mg 02/19/22 22:00 02/21/22 10:04 Quetiapine 25 Mg Tab FEEDTUBE 50 mg BID JAMIL Administration Senna/Docusate Sodium 2 tab 02/19/22 22:00 02/21/22 10:04 Sennosides/Docusate Sodium 8.6/50 Mg Tab FEEDTUBE 2 tab Q12H JAMIL Administration Simple Syrup 15 ml 02/02/22 08:08 Simple Syrup 15 Ml FEEDTUBE PRN PRN Hypoglycemia Simple Syrup 30 ml 02/02/22 08:08 Simple Syrup 15 Ml FEEDTUBE PRN PRN Hypoglycemia Sodium Bicarbonate 325 mg 02/02/22 08:08 Sodium Bicarbonate 325 Mg Tab FEEDTUBE PRN PRN For Clogged Feeding Tube Sodium Chloride 10 ml 02/01/22 10:00 02/21/22 10:04 Sodium Chloride 0.9% 10 Ml Flush Syringe IV 10 ml BID JAMIL Administration Sodium Chloride 10 ml 02/01/22 00:57 02/09/22 05:59 Sodium Chloride 0.9% 10 Ml Flush Syringe IV 10 ml PRN PRN Administration LINE FLUSH Nutrition/Malnutrition Assess - Dietary Evaluation Nutrition/Malnutrition Findings: Nutrition Notes Start: 02/01/22 17 :50 Freq: Status: Active Protocol: Document 02/19/22 14:47 JACQUELINE (Rec: 02/19/22 15:20 JACQUELINE [id number]) Nutrition Notes Need for Assessment generated from: Low BMI Initial or Follow up Reassessment Current Diagnosis Diabetes,Sepsis,Respiratory Failure Other Pertinent Diagnosis s/p DKA, s/p PEA Arrest, Pneumonia, Pyuria, Pancytopenia, UTI, ... Current Diet TF-Glucerna 1.2 More[place] @ 55 ml/hr (since D 02/18). Labs/Tests 02/19: Crea 0.3, Glu 143. Pertinent Medications 02/19: D10w @ 42 ml/hr, others nutritionally unremarkable. Height 5 ft 4 in Weight 47 kg Gary Body Weight (kg) 54.54 BMI 17.7 Weight change and time frame 1.8 Kg body weight loss in 1 week reported. Weight Status Underweight Subjective/Other Information RD consult for routine F/U on TF tolerance/continuation, and Low BMI assessment. TF continues as prescribed, but currently on hold, due to vomiting episode after PEG placement, according to RN notes. Pt remains on Mechanical Ventilation, O2 saturation @ 100%, according to Physical Assessment History notes. PEG-tube placement on 02/18, well tolerated, according to Operative Report notes. Pt's Low BMI seems to correspond to a natural body composition, and not related to a sudden loss of body weight nor chronic malnutrition, since no signs of concern were mentioned in the Physical Assessment History or the Progress notes. Percent of energy/protein needs met: Prescribed TF-Glucerna 1.2 More[place] @ 55 ml/hr provides for energy/protein needs (1584 Kcal/79 g) during LOS, 97% Kcal; 100% AA. Burn Absent Trauma Absent GI Symptoms Vomiting Difficulty In Swallowing Food Allergy No Skin Integrity/Comment Unspecified area of concern. Current % PO Other Minimum of two criteria No Fluid Accumulation N/A Reduced Dynamo Repairer Strength N/A (non-severe) Protein-Calorie Malnutrition N\A #1 Nutrition Diagnosis Inadequate oral intake Diagnosis Progress(for reassessment Continues documentation) Is patient on ventilator? Yes Is Patient Ambulatory and/or Out of Bed No REE-([place]-confined to bed) 1241.100 Kcal/Kg value to use for calculation 34 Approximate Energy Requirements Using 1598 kcal/Kg Calculation Used for Recommendations Kcal/kg Additional Notes Protein: 1.2-2 g/Kg ABW; 56-93 g/day. Fluids: 1 ml/Kcal, or as per MD. Nutrition Intervention Nutrition Support: Continue TF-Glucerna 1.2 More[place] @ 55 ml/hr. Flush: 100 ml water Q 4 hr, or as per MD. Kcal 1,584 Protein (gm) 79 Carbohydrates (gm) 151 Fat (gm) 79 Fluid (mL) 1,063 Fiber (gm) 21 % RDI: 97% Kcal; 100% AA. Goal #1 Provide at least 75% of energy /protein needs through Enteral Feeding during LOS. Follow-Up By: 03/05/22 Additional Comments Continue monitoring TF tolerance, Mechanical Ventilation, and BM.
[2022-02-21] MEDS: MIRTAZAPINE 15 MG TAB FEEDTUBE SCH (22:58)
[2022-02-21] MEDS: INSULIN GLARGINE 100 UNITS/ML SUB-Q SCH (22:58)
[2022-02-22] MEDS: fentaNYL 100 MCG/2 ML INJ IV PRN ×3 (03:31→13:36)
[2022-02-22] MEDS ORDERED: MIDAZOLAM 2 MG/2 ML INJ IV ONE (04:49)
[2022-02-22 04:52] LABS: Hematocrit 24.8 % (30.3-42.9); Hemoglobin 7.7 gm/dl (10.1-14.3); Mean Corpuscular HGB Conc 31 % (30-34); Platelet Count 442 K/mm3 (140-440); Red Blood Count 3.62 M/mm3 (3.65-5.03)
[2022-02-22 04:59] LABS: Mean Corpuscular Volume 68 fl (79-97); Red Cell Distribution Width 29.9 % (13.2-15.2)
[2022-02-22 05:08] LABS: Blood Urea Nitrogen 10 mg/dL (7-17); Calcium 8.7 mg/dL (8.4-10.2); Hemolysis Index 0
[2022-02-22] MEDS: DEXTROSE 50% IN WATER (25GM) 50 ML SYRINGE IV PRN (05:26)
[2022-02-22 05:33] LABS: BUN/Creatinine Ratio 25
[2022-02-22] MEDS: INSULIN REGULAR, HUMAN 100 UNITS/1 ML SUB-Q SCH ×3 (06:31→18:22)
[2022-02-22] MEDS: ACETAMINOPHEN 650 MG RECT SUPP PR PRN ×2 (08:19→13:50)
[2022-02-22] MEDS: SENNOSIDES/DOCUSATE SODIUM 8.6/50 MG TAB FEEDTUBE SCH (09:05)
[2022-02-22] MEDS: QUEtiapine 25 MG TAB FEEDTUBE SCH (09:05)
[2022-02-22] MEDS: FAMOTIDINE 20 MG TAB FEEDTUBE SCH (09:05)
[2022-02-22] MEDS: CLOPIDOGREL 75 MG TAB FEEDTUBE SCH (09:05)
[2022-02-22] MEDS: ENOXAPARIN 40 MG/0.4 ML INJ SUB-Q SCH (09:05)
[2022-02-22] MEDS ORDERED: predniSONE 5 MG TAB FEEDTUBE SCH (10:00)
[2022-02-22] MEDS ORDERED: SODIUM CHLORIDE 0.9% 500 ML 500 ML IV ONE ×2 (10:00→12:30)
[2022-02-22] MEDS ORDERED: POTASSIUM CHLORIDE 20 MEQ PACKET FEEDTUBE NR (11:00)
[2022-02-22] MEDS ORDERED: MIDAZOLAM 2 MG/2 ML INJ IV NR (12:00)
--- NOTE | 2022-02-22 12:18 | XRay Report ---
CHEST 1 VIEW 02/22/2022 10:57 AM INDICATION / CLINICAL INFORMATION: Respiratory Failure. COMPARISON: 02/19/22. FINDINGS: SUPPORT DEVICES: The positions of the tracheostomy tube and right PICC have not changed. HEART / MEDIASTINUM: Unchanged. LUNGS / PLEURA: There is patchy parenchymal disease in the right perihilar region inferiorly which burrell s increased. There are milder patchy parenchymal opacities throughout both lungs which has shown mini mal change. No pleural effusion. No pneumothorax. ADDITIONAL FINDINGS: No significant additional findings. IMPRESSION: Patchy parenchymal opacities throughout both lungs are again identified. Disease in the r ight infrahilar region appears new or increased. Signer Name: Alejandro Ram MD Signed: 02/22/2022 12:14 PM Workstation Name: [email or web address]
[2022-02-22] MEDS ORDERED: METOPROLOL TARTRATE 5 MG/5 ML INJ IV SCH ×2 (13:00→15:42)
--- NOTE | 2022-02-22 13:08 | Progress Note ---
Assessment and Plan 02/22/22: sinus tach with low grade temps. Have tried pushes of sedation with fent and versed, no real improvement. Did try 2.5 mg IV of BB and had some improvement but still tachypnic. Will go ahead and place back on fent drip to see if this will improve vitals. Most recent cultures from blood and sputum are all negative to date. 02/21/22: Continue anticoagulation. PSV trials as tolerated. Vascular has been consulted and are aware of feet. Will stop nitor to finger. PER CM, maybe transferred to LTACH later today. Cultures so far have been negative. afebrile the last 24 hours. 02/20/22: Now that DVT found, will anticoagulate. Increased lovenox to BID, but will discuss with pharmacy to make sure these are accurate doses. Follow up blood cultures as patient is having intermittent fevers now. Sats in the low 90's when I was in the room, but after suctioning, increased back to the mid 90's. Will monitor. May need albumin lasix chaser again. Continue steroid taper. PSV trials. Guarded prognosis. CM working on placement. 02/19/22: Will obtain KUB now. Continue to hold tube feeds. Will speak with surgery about possible causes of vomiting. May need to restart sedation. If spikes temp again will obtain cultures but most likely this is post op fever. Vent settings have not changed. Guarded prognosis. 02/18/22: Start weaning from vent tomorrow. Use peg when surgery approves. Hopeful dispostion to LTACH soon. 02/17/22: Trach and peg tomorrow. NPO after midnight tonight. Steroid taper. Will attempt to touch base with family again about consent for Picc so that IJ can be removed. If not able to do this, will need to be changed over a wire. 02/16/22: Trach and peg on Friday. Continue sedation. Will check CMP tomorrow. Will give a one time dose of albumin with lasix chaser. oral steroid taper has been ordered. need to discontinue central line and replace with picc for more terminal carman usage. 02/15/22: Trach and peg soon. Continue sedation and supportive care. 02/14/22: Today will plan to extubate. if fails will need trach. Reviewed chart and saw vascular recs. Will wean steroids again either tomorrow or Friday. 02/13/22: Drop steroids to 50q12 today. Currently on PSV 14/. Sedatioin off. Tentatively plan for possible extubation tomorrow morning. 02/12/22: Will wean steroids more tomorrow. Drop PEEP to 6 today and attempt PSV this afternoon. If tolerates will leave on PSV until end of day shift and then rest on rate overnight. Hopeful to leave off sedation and control with PRN pushes. Repeat PSV tomorrow consider ABG, pending on how she looks clinically. Hopeful for conventional ventilation but family is on board if trach and peg are required. 02/11/22: Will drop steroids to 50q8. Will drop PEEP to 8. Once PEEP at 6 , then consult surgery fro trach and peg unless off sedation mental state is better and she can tolerate PSV to assess if able for conventional extubation. Prognosis still remains guarded but improved now that pulmonary status has improved. 02/08/22: Please do not attempt to wean PEEP unless it is compromising clinical state (breath stacking, auto peep, hypotension, etc). Patient is in full blown ARDS needs increased levels of PEEP to help with oxygenation. Now that BP is better, if no improvement would even consider increasing PEEP if needed. Discussed with RT today. Spoke with nursing and SNOW PLOW OPERATOR about feet, will obtain a rterial dopplers. Hopeful there is no occlusion as given her pancytopenia, not sure that she would be a candidate for anticoagulation. Reviewed [place] [facility] as she was in [place] at least 3x prior to transfer here, twice during the month of January for DKA. She does have a diagnsosis of schizoaffective disorder. Could not find any meds for this. Will try some BID seroquel and see if this helps with mental state. Increases in sedation have not improved respiratory pattern. Patient did not get albumin and lasix last night but did get this am. Repeat CXR in the morning as well as ABG. If patient's alkalemia worsens would stop. Also given improvement in BP would start to wean stress d ose steroids. She does have a diagnosis of HTN along with her diabetes and Dementia and Schizoaffective disorder. Also from reviewing the charts at [place], patient is/was very noncompliant with diabetic regimen so some of her mental state could be vascular disease related to uncontrolled diabetes too. Overall prognosis is guarded. 02/07/22: Family meeting today, please see my event note. albumin and lasix again this morning and then again tonight. Continue steroids. May need insulin drip. Guarded prognosis. 02/06/22: Overall prognosis continues to worsen. She did respond to albumin and lasix with good urine output. Will give again tonight. Bronch results are negative and repeat cultures are negative. CXR continues to be consistent with ARDS. This could be AIP. Now on steroids so will see how she responds. Unfortunately I was not able to meet with the family today but plan to meet with them at 11 tomorrow. appreciate heme help. Given her response to steroids BP salazar, if this is truly acute interstitial pneumonitis, may consider pulse dose steroids. Will discuss with family risks of this as well. 02/05/22: Follow up bronch results. Appreciate ID assistance and changing of abx therapy. COntinue high PEEP and small TV. Ok with permissive hypercapnea as long as pH is >7.2. Follow up heme assessment. Has Kleib in tracheal aspirate. Follow up blood cultures. Will meet with family tomorrow. Overall prognosis is guarded to poor. 02/04/22: Repeat cultures this am while she is febrile. Bronched this am and wash taken from right middle lobe. Worsening CXR is likely related to the volume given yesterday. Will consult heme today as her numbers continue to worsen. Gram Negative Rods found in Tracheal aspirate from 02/01. Follow up speciation of this as well as bronch results. Will send for fungal cultures as well. Needs art line. Stop bob and change to vasopressin. Overall prognosis is very very guarded to poor. 02/03/22: Needs repeat culture with next fever spike. concern now that she is still spiking temps on broad spec abx. may need to broaden even more with antifungal but will discuss tomorrow with pharmacy tomorrow. pH is better but w orsening hypoxemia. CXR shows bilateral infiltrates. Will consider bronch tomorrow for washing to be sent for culture. Consider Heme consult tomorrow. Echo was stable. Guarded to poor prognosis. Sugar is better today. 02/02/22: Wean Vasopressors as tolerated for maps >65. Check echo. Stop insulin therapy. Q1hour fSbs and cover with sliding scale. Repeat ABG later today to follow pH. May need some diamox later. Patient now neutropenic and thrombocytopenic, repeated CBC and still the same. may need to consider heme consult. For now continue broad spec abx therapy. prognosis is guarded to poor. 2 amps of NaBicarb pushed Started on Insulin drip Central line placement secondary to lack of access Aggressive volume resuscitation q1 hour fsbs and q6 hour BMPs for the next 36-48 hours Supplemental O2 Not a candidate for bipap currently given mental state so if her respiratory st atus deteriorates would need intubation. Guarded prognosis. Spoke with daughter briefly at bedside. She did not get off her cell phone so not able to have a full conversation with her about her mother. CCT 31 minutes. Subjective Date of service: 02/22/22 Principal diagnosis: DKA, s/p cardiopulmonary arrest Interval history: Still with tachycardia and tachypnea. Sinus tach. Objective Vital Signs - 12hr 02/22/22 02/22/22 02/22/22 02:00 03:01 03:13 Temperature Pulse Rate 131 H 136 H Pulse Rate [ From Monitor] Pulse Rate [ None] Respiratory 28 H 40 H Rate Blood Pressure 122/80 129/86 O2 Sat by Pulse 100 99 Oximetry O2 Sat by Pulse 100 Oximetry [ Assessment] 02/22/22 02/22/22 02/22/22 03:23 04:00 05:00 Temperature 99.2 F 99.2 F Pulse Rate 119 H 126 H Pulse Rate [ 124 H From Monitor] Pulse Rate [ None] Respiratory 28 H 29 H Rate Blood Pressure 141/90 121/82 O2 Sat by Pulse 100 93 Oximetry O2 Sat by Pulse Oximetry [ Assessment] 02/22/22 02/22/22 02/22/22 05:15 06:01 07:00 Temperature Pulse Rate 123 H 129 H 134 H Pulse Rate [ From Monitor] Pulse Rate [ None] Respiratory 30 H 33 H Rate Blood Pressure 121/82 157/100 128/88 O2 Sat by Pulse 94 100 95 Oximetry O2 Sat by Pulse Oximetry [ Assessment] 02/22/22 02/22/22 02/22/22 08:00 08:10 09:00 Temperature 100.9 F H Pulse Rate 138 H 134 H 144 H Pulse Rate [ 138 H From Monitor] Pulse Rate [ 136 H None] Respiratory 34 H 25 H Rate Blood Pressure 138/87 138/87 148/92 O2 Sat by Pulse 96 96 97 Oximetry O2 Sat by Pulse 100 Oximetry [ Assessment] 02/22/22 02/22/22 02/22/22 10:00 11:01 11:31 Temperature Pulse Rate 150 H 142 H 137 H Pulse Rate [ From Monitor] Pulse Rate [ None] Respiratory 37 H 55 H Rate Blood Pressure 140/83 129/75 129/75 O2 Sat by Pulse 94 99 100 Oximetry O2 Sat by Pulse Oximetry [ Assessment] 02/22/22 02/22/22 12:01 12:39 Temperature Pulse Rate 147 H 143 H Pulse Rate [ From Monitor] Pulse Rate [ None] Respiratory 25 H Rate Blood Pressure 111/79 117/83 O2 Sat by Pulse 98 Oximetry O2 Sat by Pulse Oximetry [ Assessment] Constitutional: other (on vent, orally intubated) Eyes: non-icteric ENT: oropharynx moist Ascultation: Bilateral: diminished breath sounds Cardiovascular: regular rate and rhythm Gastrointestinal: normoactive bowel sounds Integumentary: normal Neurologic: other (on vent) Psychiatric: other (on vent) CBC and BMP: 02/22/22 04:00 02/22/22 04:00 ABG, PT/INR, D-dimer: ABG ABG pH 7.463 pH Units (7.350-7.450) H 02/17/22 05:06 POC ABG pCO2 37.3 mmHg (32.0-48.0) 02/02/22 04:49 ABG pCO2 46.8 mm Hg 02/17/22 05:06 POC ABG pO2 79.9 mmHg (83-108) L 02/02/22 04:49 ABG pO2 113.6 mm Hg (80.0-90.0) H 02/17/22 05:06 POC ABG HCO3 30.3 02/02/22 04:49 ABG O2 Saturation 98.2 % (95.0-99.0) 02/17/22 05:06 PT/INR, D-dimer PT 13.7 Sec. (12.2-14.9) 02/18/22 04:00 INR 0.95 (0.87-1.13) 02/18/22 04:00 Abnormal lab findings: Abnormal Labs 01/31/22 01/31/22 01/31/22 20:33 20:33 20:33 WBC 12.5 H RBC 6.16 H Hgb Hct MCV 61 L MCH 18 L RDW 19.6 H Plt Count Seg Neuts % (Manual) 98.0 H Lymphocytes % (Manual) 0 L Nucleated RBC % 2.0 H Seg Neutrophils # Man 12.3 H Lymphocytes # (Manual) 0.0 L Percent Retic Fibrinogen ABG pH POC ABG pO2 ABG pO2 ABG HCO3 ABG O2 Saturation ABG Base Excess ABG Hemoglobin Oxyhemoglobin Carboxyhemoglobin Sodium Potassium 5.6 H Chloride 110.1 H Carbon Dioxide 9 L* BUN Creatinine Glucose 254 H POC Glucose Hemoglobin A1c Lactic Acid 2.50 H* Calcium 10.8 H Phosphorus Magnesium Direct Bilirubin AST ALT Alkaline Phosphatase Lactate Dehydrogenase Total Protein Albumin Urine pH Ur Specific [place] Urine Blood Urine WBC (Auto) Vancomycin Trough Crossmatch 01/31/22 02/01/22 02/01/22 22:49 07:34 08:22 WBC RBC Hgb Hct MCV MCH RDW Plt Count Seg Neuts % (Manual) Lymphocytes % (Manual) Nucleated RBC % Seg Neutrophils # Man Lymphocytes # (Manual) Percent Retic Fibrinogen ABG pH POC ABG pO2 ABG pO2 ABG HCO3 ABG O2 Saturation ABG Base Excess ABG Hemoglobin Oxyhemoglobin Carboxyhemoglobin Sodium Potassium 5.8 H Chloride 115.8 H Carbon Dioxide 3 L* BUN Creatinine Glucose 400 H POC Glucose 368 H Hemoglobin A1c Lactic Acid Calcium Phosphorus Magnesium Direct Bilirubin AST ALT Alkaline Phosphatase Lactate Dehydrogenase Total Protein Albumin Urine pH Ur Specific [place] 1.035 H Urine Blood Small A Urine WBC (Auto) 142.0 H Vancomycin Trough Crossmatch 02/01/22 02/01/22 02/01/22 09:42 12:01 12:54 WBC RBC Hgb Hct MCV MCH RDW Plt Count Seg Neuts % (Manual) Lymphocytes % (Manual) Nucleated RBC % Seg Neutrophils # Man Lymphocytes # (Manual) Percent Retic Fibrinogen ABG pH 7.044 L* POC ABG pO2 ABG pO2 121.0 H ABG HCO3 3.7 L ABG O2 Saturation ABG Base Excess -24.8 L ABG Hemoglobin 9.3 L Oxyhemoglobin Carboxyhemoglobin Sodium Potassium Chloride Carbon Dioxide BUN Creatinine Glucose POC Glucose 382 H Hemoglobin A1c Lactic Acid Calcium Phosphorus 1.40 L Magnesium 1.30 L Direct Bilirubin AST ALT Alkaline Phosphatase Lactate Dehydrogenase Total Protein Albumin Urine pH Ur Specific [place] Urine Blood Urine WBC (Auto) Vancomycin Trough Crossmatch 02/01/22 02/01/22 02/01/22 12:54 12:54 13:27 WBC RBC Hgb Hct MCV MCH RDW Plt Count Seg Neuts % (Manual) Lymphocytes % (Manual) Nucleated RBC % Seg Neutrophils # Man Lymphocytes # (Manual) Percent Retic Fibrinogen ABG pH POC ABG pO2 ABG pO2 ABG HCO3 ABG O2 Saturation ABG Base Excess ABG Hemoglobin Oxyhemoglobin Carboxyhemoglobin Sodium 148 H D Potassium 3.0 L D Chloride 117.3 H Carbon Dioxide 9 L* BUN Creatinine Glucose 439 H POC Glucose 342 H Hemoglobin A1c 11.1 H Lactic Acid Calcium 7.7 L Phosphorus Magnesium Direct Bilirubin AST ALT Alkaline Phosphatase Lactate Dehydrogenase Total Protein Albumin Urine pH Ur Specific [place] Urine Blood Urine WBC (Auto) Vancomycin Trough Crossmatch 02/01/22 02/01/22 02/01/22 14:48 15:48 16:54 WBC RBC Hgb Hct MCV MCH RDW Plt Count Seg Neuts % (Manual) Lymphocytes % (Manual) Nucleated RBC % Seg Neutrophils # Man Lymphocytes # (Manual) Percent Retic Fibrinogen ABG pH POC ABG pO2 ABG pO2 ABG HCO3 ABG O2 Saturation ABG Base Excess ABG Hemoglobin Oxyhemoglobin Carboxyhemoglobin Sodium Potassium Chloride Carbon Dioxide BUN Creatinine Glucose POC Glucose 394 H 412 H 352 H Hemoglobin A1c Lactic Acid Calcium Phosphorus Magnesium Direct Bilirubin AST ALT Alkaline Phosphatase Lactate Dehydrogenase Total Protein Albumin Urine pH Ur Specific [place] Urine Blood Urine WBC (Auto) Vancomycin Trough Crossmatch 02/01/22 02/01/22 02/01/22 18:23 18:53 19:26 WBC RBC Hgb Hct MCV MCH RDW Plt Count Seg Neuts % (Manual) Lymphocytes % (Manual) Nucleated RBC % Seg Neutrophils # Man Lymphocytes # (Manual) Percent Retic Fibrinogen ABG pH 7.331 L POC ABG pO2 ABG pO2 121.4 H ABG HCO3 ABG O2 Saturation ABG Base Excess -4.9 L ABG Hemoglobin 8.4 L Oxyhemoglobin Carboxyhemoglobin Sodium Potassium Chloride Carbon Dioxide BUN Creatinine Glucose POC Glucose 350 H 260 H Hemoglobin A1c Lactic Acid Calcium Phosphorus Magnesium Direct Bilirubin AST ALT Alkaline Phosphatase Lactate Dehydrogenase Total Protein Albumin Urine pH Ur Specific [place] Urine Blood Urine WBC (Auto) Vancomycin Trough Crossmatch 02/01/22 02/01/22 02/01/22 20:20 21:38 22:41 WBC RBC Hgb Hct MCV MCH RDW Plt Count Seg Neuts % (Manual) Lymphocytes % (Manual) Nucleated RBC % Seg Neutrophils # Man Lymphocytes # (Manual) Percent Retic Fibrinogen ABG pH POC ABG pO2 ABG pO2 ABG HCO3 ABG O2 Saturation ABG Base Excess ABG Hemoglobin Oxyhemoglobin Carboxyhemoglobin Sodium Potassium Chloride Carbon Dioxide BUN Creatinine Glucose POC Glucose 266 H 195 H 150 H Hemoglobin A1c Lactic Acid Calcium Phosphorus Magnesium Direct Bilirubin AST ALT Alkaline Phosphatase Lactate Dehydrogenase Total Protein Albumin Urine pH Ur Specific [place] Urine Blood Urine WBC (Auto) Vancomycin Trough Crossmatch 02/01/22 02/02/22 02/02/22 23:39 00:25 00:25 WBC RBC Hgb Hct MCV MCH RDW Plt Count Seg Neuts % (Manual) Lymphocytes % (Manual) Nucleated RBC % Seg Neutrophils # Man Lymphocytes # (Manual) Percent Retic Fibrinogen ABG pH POC ABG pO2 ABG pO2 ABG HCO3 ABG O2 Saturation ABG Base Excess ABG Hemoglobin Oxyhemoglobin Carboxyhemoglobin Sodium 156 H D Potassium 3.0 L Chloride 114.2 H Carbon Dioxide BUN Creatinine 0.5 L Glucose 63 L POC Glucose 125 H Hemoglobin A1c Lactic Acid 7.10 H* Calcium 8.1 L Phosphorus Magnesium Direct Bilirubin AST ALT Alkaline Phosphatase Lactate Dehydrogenase Total Protein Albumin Urine pH Ur Specific [place] Urine Blood Urine WBC (Auto) Vancomycin Trough Crossmatch 02/02/22 02/02/22 02/02/22 04:00 04:00 04:35 WBC 1.4 L* RBC Hgb 8.5 L Hct 26.8 L D MCV 57 L MCH 18 L RDW 19.0 H Plt Count 129 L Seg Neuts % (Manual) 33.0 L Lymphocytes % (Manual) 57.0 H Nucleated RBC % Seg Neutrophils # Man 0.5 L Lymphocytes # (Manual) 0.8 L Percent Retic Fibrinogen ABG pH POC ABG pO2 ABG pO2 ABG HCO3 ABG O2 Saturation ABG Base Excess ABG Hemoglobin Oxyhemoglobin Carboxyhemoglobin Sodium 155 H Potassium Chloride 113.1 H Carbon Dioxide BUN Creatinine Glucose 159 H POC Glucose Hemoglobin A1c Lactic Acid 3.10 H* Calcium 7.6 L Phosphorus Magnesium Direct Bilirubin AST ALT Alkaline Phosphatase Lactate Dehydrogenase Total Protein Albumin Urine pH Ur Specific [place] Urine Blood Urine WBC (Auto) Vancomycin Trough Crossmatch 02/02/22 02/02/22 02/02/22 04:37 04:49 05:43 WBC RBC Hgb Hct MCV MCH RDW Plt Count Seg Neuts % (Manual) Lymphocytes % (Manual) Nucleated RBC % Seg Neutrophils # Man Lymphocytes # (Manual) Percent Retic Fibrinogen ABG pH 7.528 H POC ABG pO2 79.9 L ABG pO2 ABG HCO3 ABG O2 Saturation ABG Base Excess ABG Hemoglobin 8.8 L Oxyhemoglobin Carboxyhemoglobin 0.2 L Sodium Potassium Chloride Carbon Dioxide BUN Creatinine Glucose POC Glucose 116 H 125 H Hemoglobin A1c Lactic Acid Calcium Phosphorus Magnesium Direct Bilirubin AST ALT Alkaline Phosphatase Lactate Dehydrogenase Total Protein Albumin Urine pH Ur Specific [place] Urine Blood Urine WBC (Auto) Vancomycin Trough Crossmatch 02/02/22 02/02/22 02/02/22 06:52 09:02 09:05 WBC RBC Hgb Hct MCV MCH RDW Plt Count Seg Neuts % (Manual) Lymphocytes % (Manual) Nucleated RBC % Seg Neutrophils # Man Lymphocytes # (Manual) Percent Retic Fibrinogen ABG pH POC ABG pO2 ABG pO2 ABG HCO3 ABG O2 Saturation ABG Base Excess ABG Hemoglobin Oxyhemoglobin Carboxyhemoglobin Sodium 154 H Potassium 3.3 L Chloride 113.3 H Carbon Dioxide BUN Creatinine Glucose 35 L* POC Glucose 110 H 35 L Hemoglobin A1c Lactic Acid Calcium 7.4 L Phosphorus 1.70 L D Magnesium 2.50 H Direct Bilirubin AST ALT Alkaline Phosphatase Lactate Dehydrogenase Total Protein Albumin Urine pH Ur Specific [place] Urine Blood Urine WBC (Auto) Vancomycin Trough Crossmatch 02/02/22 02/02/22 02/02/22 09:05 09:30 09:41 WBC 2.6 L RBC Hgb 8.0 L Hct 25.0 L MCV 57 L MCH 18 L RDW 18.8 H Plt Count 97 L Seg Neuts % (Manual) Lymphocytes % (Manual) 12.0 L Nucleated RBC % 10.0 H Seg Neutrophils # Man 1.7 L Lymphocytes # (Manual) 0.3 L Percent Retic Fibrinogen ABG pH POC ABG pO2 ABG pO2 ABG HCO3 ABG O2 Saturation ABG Base Excess ABG Hemoglobin Oxyhemoglobin Carboxyhemoglobin Sodium Potassium Chloride Carbon Dioxide BUN Creatinine Glucose POC Glucose 119 H Hemoglobin A1c Lactic Acid 7.10 H* Calcium Phosphorus Magnesium Direct Bilirubin AST ALT Alkaline Phosphatase Lactate Dehydrogenase Total Protein Albumin Urine pH Ur Specific [place] Urine Blood Urine WBC (Auto) Vancomycin Trough Crossmatch 07/30/22 07/30/22 07/30/22 10:17 12:32 15:39 WBC RBC Hgb Hct MCV MCH RDW Plt Count Seg Neuts % (Manual) Lymphocytes % (Manual) Nucleated RBC % Seg Neutrophils # Man Lymphocytes # (Manual) Percent Retic Fibrinogen ABG pH POC ABG pO2 ABG pO2 ABG HCO3 ABG O2 Saturation ABG Base Excess ABG Hemoglobin Oxyhemoglobin Carboxyhemoglobin Sodium Potassium Chloride Carbon Dioxide BUN Creatinine Glucose POC Glucose 120 H 166 H 263 H Hemoglobin A1c Lactic Acid Calcium Phosphorus Magnesium Direct Bilirubin AST ALT Alkaline Phosphatase Lactate Dehydrogenase Total Protein Albumin Urine pH Ur Specific [place] Urine Blood Urine WBC (Auto) Vancomycin Trough Crossmatch 02/02/22 02/02/22 02/02/22 17:07 17:50 Unknown WBC RBC Hgb Hct MCV MCH RDW Plt Count Seg Neuts % (Manual) Lymphocytes % (Manual) Nucleated RBC % Seg Neutrophils # Man Lymphocytes # (Manual) Percent Retic Fibrinogen ABG pH 7.457 H POC ABG pO2 ABG pO2 71.0 L ABG HCO3 ABG O2 Saturation 94.5 L ABG Base Excess ABG Hemoglobin 9.2 L Oxyhemoglobin 93.0 L Carboxyhemoglobin Sodium 147 H Potassium 5.5 H D Chloride 110.8 H Carbon Dioxide BUN Creatinine Glucose 271 H POC Glucose 231 H Hemoglobin A1c Lactic Acid Calcium 7.3 L Phosphorus Magnesium Direct Bilirubin AST ALT Alkaline Phosphatase Lactate Dehydrogenase Total Protein Albumin Urine pH Ur Specific [place] Urine Blood Urine WBC (Auto) Vancomycin Trough Crossmatch 02/03/22 02/03/22 02/03/22 00:08 04:00 04:00 WBC 3.7 L RBC Hgb 8.0 L Hct 25.5 L MCV 58 L MCH 18 L RDW 18.2 H Plt Count 79 L Seg Neuts % (Manual) 76.0 H Lymphocytes % (Manual) 2.0 L Nucleated RBC % 4.0 H Seg Neutrophils # Man Lymphocytes # (Manual) 0.1 L Percent Retic Fibrinogen ABG pH POC ABG pO2 ABG pO2 ABG HCO3 ABG O2 Saturation ABG Base Excess ABG Hemoglobin Oxyhemoglobin Carboxyhemoglobin Sodium 147 H Potassium Chloride 112.9 H Carbon Dioxide BUN Creatinine Glucose 281 H POC Glucose 231 H Hemoglobin A1c Lactic Acid Calcium 7.8 L Phosphorus Magnesium Direct Bilirubin 0.3 H AST 172 H ALT 89 H Alkaline Phosphatase Lactate Dehydrogenase Total Protein 4.7 L D Albumin 2.0 L Urine pH Ur Specific [place] Urine Blood Urine WBC (Auto) Vancomycin Trough Crossmatch 02/03/22 02/03/22 02/03/22 04:20 05:26 11:38 WBC RBC Hgb Hct MCV MCH RDW Plt Count Seg Neuts % (Manual) Lymphocytes % (Manual) Nucleated RBC % Seg Neutrophils # Man Lymphocytes # (Manual) Percent Retic Fibrinogen ABG pH POC ABG pO2 ABG pO2 75.5 L ABG HCO3 ABG O2 Saturation ABG Base Excess -2.8 L ABG Hemoglobin 8.1 L Oxyhemoglobin 94.6 L Carboxyhemoglobin Sodium Potassium Chloride Carbon Dioxide BUN Creatinine Glucose POC Glucose 247 H 196 H Hemoglobin A1c Lactic Acid Calcium Phosphorus Magnesium Direct Bilirubin AST ALT Alkaline Phosphatase Lactate Dehydrogenase Total Protein Albumin Urine pH Ur Specific [place] Urine Blood Urine WBC (Auto) Vancomycin Trough Crossmatch 02/03/22 02/04/22 02/04/22 16:27 02:44 03:18 WBC 1.2 L* RBC Hgb 8.2 L Hct 26.6 L MCV 59 L MCH 18 L RDW 19.6 H Plt Count 50 L Seg Neuts % (Manual) Lymphocytes % (Manual) Nucleated RBC % Seg Neutrophils # Man Lymphocytes # (Manual) Percent Retic Fibrinogen ABG pH POC ABG pO2 ABG pO2 ABG HCO3 ABG O2 Saturation ABG Base Excess ABG Hemoglobin Oxyhemoglobin Carboxyhemoglobin Sodium 148 H Potassium Chloride 116.3 H Carbon Dioxide BUN Creatinine Glucose 139 H POC Glucose 119 H Hemoglobin A1c Lactic Acid Calcium Phosphorus Magnesium Direct Bilirubin 0.3 H AST 92 H ALT 76 H Alkaline Phosphatase Lactate Dehydrogenase Total Protein 4.7 L Albumin 1.6 L Urine pH Ur Specific [place] Urine Blood Urine WBC (Auto) Vancomycin Trough Crossmatch 02/04/22 02/04/22 02/04/22 05:15 05:26 09:15 WBC RBC Hgb Hct MCV MCH RDW Plt Count Seg Neuts % (Manual) Lymphocytes % (Manual) Nucleated RBC % Seg Neutrophils # Man Lymphocytes # (Manual) Percent Retic Fibrinogen ABG pH 7.311 L POC ABG pO2 ABG pO2 50.1 L ABG HCO3 ABG O2 Saturation 83.6 L ABG Base Excess ABG Hemoglobin 8.6 L Oxyhemoglobin 81.9 L Carboxyhemoglobin Sodium Potassium Chloride Carbon Dioxide BUN Creatinine Glucose POC Glucose 115 H Hemoglobin A1c Lactic Acid Calcium Phosphorus Magnesium Direct Bilirubin AST ALT Alkaline Phosphatase Lactate Dehydrogenase Total Protein Albumin Urine pH Ur Specific [place] Urine Blood Large A Urine WBC (Auto) 12.0 H Vancomycin Trough Crossmatch 02/04/22 02/04/22 02/04/22 11:17 14:37 17:04 WBC RBC Hgb Hct MCV MCH RDW Plt Count Seg Neuts % (Manual) Lymphocytes % (Manual) Nucleated RBC % Seg Neutrophils # Man Lymphocytes # (Manual) Percent Retic Fibrinogen ABG pH POC ABG pO2 ABG pO2 ABG HCO3 ABG O2 Saturation ABG Base Excess ABG Hemoglobin Oxyhemoglobin Carboxyhemoglobin Sodium Potassium Chloride Carbon Dioxide BUN Creatinine Glucose POC Glucose 166 H 109 H Hemoglobin A1c Lactic Acid Calcium Phosphorus Magnesium Direct Bilirubin AST 87 H ALT 75 H Alkaline Phosphatase 137 H Lactate Dehydrogenase Total Protein 4.6 L Albumin 1.7 L Urine pH Ur Specific [place] Urine Blood Urine WBC (Auto) Vancomycin Trough Crossmatch 02/04/22 02/04/22 02/04/22 20:15 20:22 20:22 WBC RBC Hgb 7.1 L Hct 22.6 L MCV MCH RDW Plt Count Seg Neuts % (Manual) Lymphocytes % (Manual) Nucleated RBC % Seg Neutrophils # Man Lymphocytes # (Manual) Percent Retic Fibrinogen ABG pH 7.292 L POC ABG pO2 ABG pO2 40.3 L ABG HCO3 ABG O2 Saturation 72.1 L ABG Base Excess -2.2 L ABG Hemoglobin 7.0 L Oxyhemoglobin 70.5 L Carboxyhemoglobin Sodium Potassium Chloride Carbon Dioxide BUN Creatinine Glucose POC Glucose Hemoglobin A1c Lactic Acid 3.00 H* Calcium Phosphorus Magnesium Direct Bilirubin AST ALT Alkaline Phosphatase Lactate Dehydrogenase Total Protein Albumin Urine pH Ur Specific [place] Urine Blood Urine WBC (Auto) Vancomycin Trough Crossmatch 02/04/22 02/04/22 02/05/22 20:22 23:03 04:40 WBC 3.1 L RBC Hgb 9.6 L Hct 30.1 L D MCV 64 L MCH 20 L RDW 26.9 H Plt Count 50 L Seg Neuts % (Manual) Lymphocytes % (Manual) Nucleated RBC % Seg Neutrophils # Man Lymphocytes # (Manual) Percent Retic Fibrinogen ABG pH POC ABG pO2 ABG pO2 ABG HCO3 ABG O2 Saturation ABG Base Excess ABG Hemoglobin Oxyhemoglobin Carboxyhemoglobin Sodium Potassium Chloride Carbon Dioxide BUN Creatinine Glucose POC Glucose 171 H Hemoglobin A1c Lactic Acid Calcium Phosphorus Magnesium Direct Bilirubin AST ALT Alkaline Phosphatase Lactate Dehydrogenase Total Protein Albumin Urine pH Ur Specific [place] Urine Blood Urine WBC (Auto) Vancomycin Trough Crossmatch See Detail 02/05/22 02/05/22 02/05/22 04:40 04:40 04:43 WBC RBC Hgb Hct MCV MCH RDW Plt Count Seg Neuts % (Manual) Lymphocytes % (Manual) Nucleated RBC % Seg Neutrophils # Man Lymphocytes # (Manual) Percent Retic Fibrinogen ABG pH POC ABG pO2 ABG pO2 ABG HCO3 ABG O2 Saturation ABG Base Excess ABG Hemoglobin Oxyhemoglobin Carboxyhemoglobin Sodium 148 H Potassium Chloride 113.2 H Carbon Dioxide BUN 21 H Creatinine Glucose 155 H POC Glucose 156 H Hemoglobin A1c Lactic Acid Calcium Phosphorus Magnesium Direct Bilirubin AST 84 H ALT 67 H Alkaline Phosphatase 152 H Lactate Dehydrogenase 879 H Total Protein 5.0 L Albumin 1.8 L Urine pH Ur Specific [place] Urine Blood Urine WBC (Auto) Vancomycin Trough Crossmatch 02/05/22 02/05/22 02/05/22 08:10 08:48 08:48 WBC RBC Hgb Hct MCV MCH RDW Plt Count Seg Neuts % (Manual) Lymphocytes % (Manual) Nucleated RBC % Seg Neutrophils # Man Lymphocytes # (Manual) Percent Retic Fibrinogen 795 H ABG pH POC ABG pO2 ABG pO2 57.1 L ABG HCO3 27.8 H ABG O2 Saturation 90.8 L ABG Base Excess ABG Hemoglobin 8.5 L Oxyhemoglobin 88.9 L Carboxyhemoglobin Sodium Potassium Chloride Carbon Dioxide BUN Creatinine Glucose POC Glucose Hemoglobin A1c Lactic Acid 2.90 H* Calcium Phosphorus Magnesium Direct Bilirubin AST ALT Alkaline Phosphatase Lactate Dehydrogenase Total Protein Albumin Urine pH Ur Specific [place] Urine Blood Urine WBC (Auto) Vancomycin Trough Crossmatch 02/05/22 02/05/22 02/05/22 11:46 17:45 Unknown WBC RBC Hgb Hct MCV MCH RDW Plt Count Seg Neuts % (Manual) Lymphocytes % (Manual) Nucleated RBC % Seg Neutrophils # Man Lymphocytes # (Manual) Percent Retic Fibrinogen ABG pH POC ABG pO2 ABG pO2 ABG HCO3 ABG O2 Saturation ABG Base Excess ABG Hemoglobin Oxyhemoglobin Carboxyhemoglobin Sodium Potassium Chloride Carbon Dioxide BUN Creatinine Glucose POC Glucose 61 L 133 H Hemoglobin A1c Lactic Acid Calcium Phosphorus Magnesium Direct Bilirubin AST ALT Alkaline Phosphatase Lactate Dehydrogenase Total Protein Albumin Urine pH Ur Specific [place] Urine Blood Urine WBC (Auto) Vancomycin Trough 28.6 H Crossmatch 08/02/22 08/03/22 08/03/22 23:59 04:33 04:33 WBC RBC Hgb 8.4 L Hct 26.1 L MCV 64 L MCH 21 L RDW 26.2 H Plt Count 38 L Seg Neuts % (Manual) Lymphocytes % (Manual) Nucleated RBC % Seg Neutrophils # Man Lymphocytes # (Manual) Percent Retic Fibrinogen ABG pH POC ABG pO2 ABG pO2 ABG HCO3 ABG O2 Saturation ABG Base Excess ABG Hemoglobin Oxyhemoglobin Carboxyhemoglobin Sodium 146 H Potassium 3.4 L Chloride Carbon Dioxide 31 H BUN 21 H Creatinine Glucose 230 H POC Glucose 275 H Hemoglobin A1c Lactic Acid Calcium Phosphorus Magnesium Direct Bilirubin AST 70 H ALT Alkaline Phosphatase 197 H Lactate Dehydrogenase Total Protein 5.3 L Albumin 2.4 L Urine pH Ur Specific [place] Urine Blood Urine WBC (Auto) Vancomycin Trough Crossmatch 02/06/22 02/06/22 02/06/22 04:33 04:50 06:19 WBC RBC Hgb Hct MCV MCH RDW Plt Count Seg Neuts % (Manual) Lymphocytes % (Manual) Nucleated RBC % Seg Neutrophils # Man Lymphocytes # (Manual) Percent Retic Fibrinogen ABG pH 7.330 L POC ABG pO2 ABG pO2 57.9 L ABG HCO3 31.3 H ABG O2 Saturation 89.6 L ABG Base Excess 4.5 H ABG Hemoglobin 8.1 L Oxyhemoglobin 87.7 L Carboxyhemoglobin Sodium Potassium Chloride Carbon Dioxide BUN Creatinine Glucose POC Glucose 219 H Hemoglobin A1c Lactic Acid 3.10 H* Calcium Phosphorus Magnesium Direct Bilirubin AST ALT Alkaline Phosphatase Lactate Dehydrogenase Total Protein Albumin Urine pH Ur Specific [place] Urine Blood Urine WBC (Auto) Vancomycin Trough Crossmatch 02/06/22 02/06/22 02/06/22 11:24 11:50 12:26 WBC RBC Hgb Hct MCV MCH RDW Plt Count Seg Neuts % (Manual) Lymphocytes % (Manual) Nucleated RBC % Seg Neutrophils # Man Lymphocytes # (Manual) Percent Retic Fibrinogen ABG pH 7.298 L POC ABG pO2 ABG pO2 43.3 L ABG HCO3 36.7 H ABG O2 Saturation 74.9 L ABG Base Excess 8.8 H ABG Hemoglobin 8.2 L Oxyhemoglobin 73.3 L Carboxyhemoglobin Sodium Potassium Chloride Carbon Dioxide BUN Creatinine Glucose POC Glucose 118 H Hemoglobin A1c Lactic Acid 2.50 H* Calcium Phosphorus Magnesium Direct Bilirubin AST ALT Alkaline Phosphatase Lactate Dehydrogenase Total Protein Albumin Urine pH Ur Specific [place] Urine Blood Urine WBC (Auto) Vancomycin Trough Crossmatch 02/06/22 02/06/22 02/07/22 17:41 21:41 00:17 WBC RBC Hgb Hct MCV MCH RDW Plt Count Seg Neuts % (Manual) Lymphocytes % (Manual) Nucleated RBC % Seg Neutrophils # Man Lymphocytes # (Manual) Percent Retic Fibrinogen ABG pH POC ABG pO2 ABG pO2 ABG HCO3 ABG O2 Saturation ABG Base Excess ABG Hemoglobin Oxyhemoglobin Carboxyhemoglobin Sodium Potassium Chloride Carbon Dioxide BUN Creatinine Glucose POC Glucose 208 H 282 H 342 H Hemoglobin A1c Lactic Acid Calcium Phosphorus Magnesium Direct Bilirubin AST ALT Alkaline Phosphatase Lactate Dehydrogenase Total Protein Albumin Urine pH Ur Specific [place] Urine Blood Urine WBC (Auto) Vancomycin Trough Crossmatch 02/07/22 02/07/22 02/07/22 00:19 04:12 04:12 WBC 13.1 H RBC Hgb 8.5 L Hct 26.4 L MCV 62 L MCH 20 L RDW 24.2 H Plt Count 57 L Seg Neuts % (Manual) Lymphocytes % (Manual) Nucleated RBC % Seg Neutrophils # Man Lymphocytes # (Manual) Percent Retic Fibrinogen ABG pH POC ABG pO2 ABG pO2 ABG HCO3 ABG O2 Saturation ABG Base Excess ABG Hemoglobin Oxyhemoglobin Carboxyhemoglobin Sodium 149 H Potassium 3.1 L Chloride Carbon Dioxide 38 H D BUN 23 H Creatinine Glucose 298 H POC Glucose 209 H Hemoglobin A1c Lactic Acid Calcium Phosphorus 2.10 L Magnesium Direct Bilirubin AST 49 H ALT Alkaline Phosphatase 248 H Lactate Dehydrogenase Total Protein 5.4 L Albumin 2.7 L Urine pH Ur Specific [place] Urine Blood Urine WBC (Auto) Vancomycin Trough Crossmatch 02/07/22 02/07/22 02/07/22 04:40 07:09 07:13 WBC RBC Hgb Hct MCV MCH RDW Plt Count Seg Neuts % (Manual) Lymphocytes % (Manual) Nucleated RBC % Seg Neutrophils # Man Lymphocytes # (Manual) Percent Retic Fibrinogen ABG pH 7.474 H POC ABG pO2 ABG pO2 62.1 L ABG HCO3 39.1 H ABG O2 Saturation 94.7 L ABG Base Excess 13.9 H ABG Hemoglobin 8.6 L Oxyhemoglobin 93.0 L Carboxyhemoglobin Sodium Potassium Chloride Carbon Dioxide BUN Creatinine Glucose POC Glucose 399 H 418 H Hemoglobin A1c Lactic Acid Calcium Phosphorus Magnesium Direct Bilirubin AST ALT Alkaline Phosphatase Lactate Dehydrogenase Total Protein Albumin Urine pH Ur Specific [place] Urine Blood Urine WBC (Auto) Vancomycin Trough Crossmatch 02/07/22 02/07/22 02/07/22 12:20 17:29 23:37 WBC RBC Hgb Hct MCV MCH RDW Plt Count Seg Neuts % (Manual) Lymphocytes % (Manual) Nucleated RBC % Seg Neutrophils # Man Lymphocytes # (Manual) Percent Retic Fibrinogen ABG pH POC ABG pO2 ABG pO2 ABG HCO3 ABG O2 Saturation ABG Base Excess ABG Hemoglobin Oxyhemoglobin Carboxyhemoglobin Sodium Potassium Chloride Carbon Dioxide BUN Creatinine Glucose POC Glucose 229 H 159 H 236 H Hemoglobin A1c Lactic Acid Calcium Phosphorus Magnesium Direct Bilirubin AST ALT Alkaline Phosphatase Lactate Dehydrogenase Total Protein Albumin Urine pH Ur Specific [place] Urine Blood Urine WBC (Auto) Vancomycin Trough Crossmatch 02/08/22 02/08/22 02/08/22 03:55 03:55 05:20 WBC 14.7 H RBC Hgb 7.7 L Hct 25.0 L MCV 64 L MCH 20 L RDW 25.1 H Plt Count 79 L Seg Neuts % (Manual) Lymphocytes % (Manual) Nucleated RBC % Seg Neutrophils # Man Lymphocytes # (Manual) Percent Retic 0.65 L Fibrinogen ABG pH POC ABG pO2 ABG pO2 ABG HCO3 ABG O2 Saturation ABG Base Excess ABG Hemoglobin Oxyhemoglobin Carboxyhemoglobin Sodium Potassium 3.0 L Chloride 93.9 L Carbon Dioxide 44 H* BUN 30 H Creatinine Glucose 229 H POC Glucose 235 H Hemoglobin A1c Lactic Acid Calcium 8.3 L Phosphorus 2.30 L Magnesium Direct Bilirubin AST 77 H ALT Alkaline Phosphatase 246 H Lactate Dehydrogenase Total Protein 5.2 L Albumin 2.7 L Urine pH Ur Specific [place] Urine Blood Urine WBC (Auto) Vancomycin Trough Crossmatch 02/08/22 02/08/22 02/08/22 11:47 16:36 21:41 WBC RBC Hgb Hct MCV MCH RDW Plt Count Seg Neuts % (Manual) Lymphocytes % (Manual) Nucleated RBC % Seg Neutrophils # Man Lymphocytes # (Manual) Percent Retic Fibrinogen ABG pH POC ABG pO2 ABG pO2 ABG HCO3 ABG O2 Saturation ABG Base Excess ABG Hemoglobin Oxyhemoglobin Carboxyhemoglobin Sodium Potassium Chloride Carbon Dioxide BUN Creatinine Glucose POC Glucose 193 H 205 H 292 H Hemoglobin A1c Lactic Acid Calcium Phosphorus Magnesium Direct Bilirubin AST ALT Alkaline Phosphatase Lactate Dehydrogenase Total Protein Albumin Urine pH Ur Specific [place] Urine Blood Urine WBC (Auto) Vancomycin Trough Crossmatch 0802/08/22 02/09/22 Unknown 23:59 04:00 WBC 16.4 H RBC Hgb 8.2 L Hct 26.3 L MCV 63 L MCH 20 L RDW 23.9 H Plt Count 128 L Seg Neuts % (Manual) Lymphocytes % (Manual) Nucleated RBC % Seg Neutrophils # Man Lymphocytes # (Manual) Percent Retic Fibrinogen ABG pH 7.488 H POC ABG pO2 ABG pO2 63.1 L ABG HCO3 45.5 H ABG O2 Saturation 94.1 L ABG Base Excess 19.8 H ABG Hemoglobin 8.7 L Oxyhemoglobin 92.4 L Carboxyhemoglobin Sodium Potassium Chloride Carbon Dioxide BUN Creatinine Glucose POC Glucose 342 H Hemoglobin A1c Lactic Acid Calcium Phosphorus Magnesium Direct Bilirubin AST ALT Alkaline Phosphatase Lactate Dehydrogenase Total Protein Albumin Urine pH Ur Specific [place] Urine Blood Urine WBC (Auto) Vancomycin Trough Crossmatch 02/09/22 02/09/22 02/09/22 04:00 05:30 06:07 WBC RBC Hgb Hct MCV MCH RDW Plt Count Seg Neuts % (Manual) Lymphocytes % (Manual) Nucleated RBC % Seg Neutrophils # Man Lymphocytes # (Manual) Percent Retic Fibrinogen ABG pH 7.539 H POC ABG pO2 ABG pO2 210.4 H ABG HCO3 42.4 H ABG O2 Saturation 99.3 H ABG Base Excess 18.0 H ABG Hemoglobin 7.8 L Oxyhemoglobin Carboxyhemoglobin Sodium 149 H Potassium 3.1 L Chloride 97.6 L Carbon Dioxide 42 H* BUN 27 H Creatinine Glucose 257 H POC Glucose 260 H Hemoglobin A1c Lactic Acid Calcium 8.2 L Phosphorus 1.90 L Magnesium Direct Bilirubin AST 81 H ALT Alkaline Phosphatase 229 H Lactate Dehydrogenase Total Protein 5.4 L Albumin 2.6 L Urine pH Ur Specific [place] Urine Blood Urine WBC (Auto) Vancomycin Trough Crossmatch 02/09/22 02/09/22 02/09/22 11:16 17:33 20:25 WBC RBC Hgb Hct MCV MCH RDW Plt Count Seg Neuts % (Manual) Lymphocytes % (Manual) Nucleated RBC % Seg Neutrophils # Man Lymphocytes # (Manual) Percent Retic Fibrinogen ABG pH 7.504 H POC ABG pO2 ABG pO2 79.7 L ABG HCO3 44.2 H ABG O2 Saturation ABG Base Excess 19.2 H ABG Hemoglobin 7.0 L Oxyhemoglobin Carboxyhemoglobin Sodium Potassium Chloride Carbon Dioxide BUN Creatinine Glucose POC Glucose 184 H 123 H Hemoglobin A1c Lactic Acid Calcium Phosphorus Magnesium Direct Bilirubin AST ALT Alkaline Phosphatase Lactate Dehydrogenase Total Protein Albumin Urine pH Ur Specific [place] Urine Blood Urine WBC (Auto) Vancomycin Trough Crossmatch 02/09/22 02/09/22 02/10/22 21:16 23:13 03:40 WBC 17.2 H RBC Hgb 7.9 L Hct 25.3 L MCV 63 L MCH 20 L RDW 20.7 H Plt Count Seg Neuts % (Manual) Lymphocytes % (Manual) Nucleated RBC % Seg Neutrophils # Man Lymphocytes # (Manual) Percent Retic Fibrinogen ABG pH POC ABG pO2 ABG pO2 ABG HCO3 ABG O2 Saturation ABG Base Excess ABG Hemoglobin Oxyhemoglobin Carboxyhemoglobin Sodium Potassium Chloride Carbon Dioxide BUN Creatinine Glucose POC Glucose 186 H 276 H Hemoglobin A1c Lactic Acid Calcium Phosphorus Magnesium Direct Bilirubin AST ALT Alkaline Phosphatase Lactate Dehydrogenase Total Protein Albumin Urine pH Ur Specific [place] Urine Blood Urine WBC (Auto) Vancomycin Trough Crossmatch 02/10/22 02/10/22 02/10/22 03:40 04:17 04:17 WBC RBC Hgb Hct MCV MCH RDW Plt Count Seg Neuts % (Manual) Lymphocytes % (Manual) Nucleated RBC % Seg Neutrophils # Man Lymphocytes # (Manual) Percent Retic Fibrinogen ABG pH 7.468 H POC ABG pO2 ABG pO2 124.2 H ABG HCO3 42.1 H ABG O2 Saturation ABG Base Excess 16.6 H ABG Hemoglobin 7.6 L Oxyhemoglobin Carboxyhemoglobin Sodium 149 H Potassium 3.2 L Chloride Carbon Dioxide 38 H BUN 26 H Creatinine 0.5 L Glucose 188 H POC Glucose 189 H Hemoglobin A1c Lactic Acid Calcium 8.3 L Phosphorus 2.10 L Magnesium Direct Bilirubin AST 120 H ALT 80 H Alkaline Phosphatase 207 H Lactate Dehydrogenase Total Protein 5.3 L Albumin 2.4 L Urine pH Ur Specific [place] Urine Blood Urine WBC (Auto) Vancomycin Trough Crossmatch 02/10/22 02/10/22 02/10/22 11:46 16:27 21:15 WBC RBC Hgb Hct MCV MCH RDW Plt Count Seg Neuts % (Manual) Lymphocytes % (Manual) Nucleated RBC % Seg Neutrophils # Man Lymphocytes # (Manual) Percent Retic Fibrinogen ABG pH POC ABG pO2 ABG pO2 ABG HCO3 ABG O2 Saturation ABG Base Excess ABG Hemoglobin Oxyhemoglobin Carboxyhemoglobin Sodium Potassium Chloride Carbon Dioxide BUN Creatinine Glucose POC Glucose 189 H 198 H 261 H Hemoglobin A1c Lactic Acid Calcium Phosphorus Magnesium Direct Bilirubin AST ALT Alkaline Phosphatase Lactate Dehydrogenase Total Protein Albumin Urine pH Ur Specific [place] Urine Blood Urine WBC (Auto) Vancomycin Trough Crossmatch 02/10/22 02/11/22 02/11/22 23:20 04:00 04:00 WBC 20.8 H RBC Hgb 7.7 L Hct 24.5 L MCV 64 L MCH 20 L RDW 23.5 H Plt Count Seg Neuts % (Manual) Lymphocytes % (Manual) Nucleated RBC % Seg Neutrophils # Man Lymphocytes # (Manual) Percent Retic Fibrinogen ABG pH POC ABG pO2 ABG pO2 ABG HCO3 ABG O2 Saturation ABG Base Excess ABG Hemoglobin Oxyhemoglobin Carboxyhemoglobin Sodium 148 H Potassium 3.3 L Chloride Carbon Dioxide 39 H BUN 27 H Creatinine 0.5 L Glucose 218 H POC Glucose 196 H Hemoglobin A1c Lactic Acid Calcium 8.3 L Phosphorus Magnesium Direct Bilirubin AST ALT Alkaline Phosphatase Lactate Dehydrogenase Total Protein Albumin Urine pH Ur Specific [place] Urine Blood Urine WBC (Auto) Vancomycin Trough Crossmatch 02/11/22 02/11/22 02/11/22 05:00 05:57 11:15 WBC RBC Hgb Hct MCV MCH RDW Plt Count Seg Neuts % (Manual) Lymphocytes % (Manual) Nucleated RBC % Seg Neutrophils # Man Lymphocytes # (Manual) Percent Retic Fibrinogen ABG pH 7.459 H POC ABG pO2 ABG pO2 99.8 H ABG HCO3 41.4 H ABG O2 Saturation ABG Base Excess 15.9 H ABG Hemoglobin 7.5 L Oxyhemoglobin Carboxyhemoglobin Sodium Potassium Chloride Carbon Dioxide BUN Creatinine Glucose POC Glucose 173 H 204 H Hemoglobin A1c Lactic Acid Calcium Phosphorus Magnesium Direct Bilirubin AST ALT Alkaline Phosphatase Lactate Dehydrogenase Total Protein Albumin Urine pH Ur Specific [place] Urine Blood Urine WBC (Auto) Vancomycin Trough Crossmatch 02/11/22 02/11/22 02/12/22 17:15 21:21 00:29 WBC RBC Hgb Hct MCV MCH RDW Plt Count Seg Neuts % (Manual) Lymphocytes % (Manual) Nucleated RBC % Seg Neutrophils # Man Lymphocytes # (Manual) Percent Retic Fibrinogen ABG pH POC ABG pO2 ABG pO2 ABG HCO3 ABG O2 Saturation ABG Base Excess ABG Hemoglobin Oxyhemoglobin Carboxyhemoglobin Sodium Potassium Chloride Carbon Dioxide BUN Creatinine Glucose POC Glucose 157 H 183 H 197 H Hemoglobin A1c Lactic Acid Calcium Phosphorus Magnesium Direct Bilirubin AST ALT Alkaline Phosphatase Lactate Dehydrogenase Total Protein Albumin Urine pH Ur Specific [place] Urine Blood Urine WBC (Auto) Vancomycin Trough Crossmatch 02/12/22 02/12/22 02/12/22 04:17 04:17 05:00 WBC 23.9 H RBC Hgb 7.5 L Hct 24.2 L MCV 64 L MCH 20 L RDW 25.5 H Plt Count Seg Neuts % (Manual) Lymphocytes % (Manual) Nucleated RBC % Seg Neutrophils # Man Lymphocytes # (Manual) Percent Retic Fibrinogen ABG pH 7.467 H POC ABG pO2 ABG pO2 97.9 H ABG HCO3 40.7 H ABG O2 Saturation ABG Base Excess 15.3 H ABG Hemoglobin 7.5 L Oxyhemoglobin Carboxyhemoglobin Sodium 146 H Potassium Chloride Carbon Dioxide 39 H BUN 25 H Creatinine 0.4 L Glucose 135 H POC Glucose Hemoglobin A1c Lactic Acid Calcium Phosphorus Magnesium Direct Bilirubin AST ALT Alkaline Phosphatase Lactate Dehydrogenase Total Protein Albumin Urine pH Ur Specific [place] Urine Blood Urine WBC (Auto) Vancomycin Trough Crossmatch 02/12/22 02/12/22 02/12/22 05:53 12:31 17:54 WBC RBC Hgb Hct MCV MCH RDW Plt Count Seg Neuts % (Manual) Lymphocytes % (Manual) Nucleated RBC % Seg Neutrophils # Man Lymphocytes # (Manual) Percent Retic Fibrinogen ABG pH POC ABG pO2 ABG pO2 ABG HCO3 ABG O2 Saturation ABG Base Excess ABG Hemoglobin Oxyhemoglobin Carboxyhemoglobin Sodium Potassium Chloride Carbon Dioxide BUN Creatinine Glucose POC Glucose 114 H 124 H 159 H Hemoglobin A1c Lactic Acid Calcium Phosphorus Magnesium Direct Bilirubin AST ALT Alkaline Phosphatase Lactate Dehydrogenase Total Protein Albumin Urine pH Ur Specific [place] Urine Blood Urine WBC (Auto) Vancomycin Trough Crossmatch 02/12/22 02/13/22 02/13/22 22:09 03:40 04:00 WBC 23.6 H RBC 3.42 L Hgb 6.7 L Hct 21.7 L MCV 64 L MCH 20 L RDW 27.3 H Plt Count Seg Neuts % (Manual) Lymphocytes % (Manual) Nucleated RBC % Seg Neutrophils # Man Lymphocytes # (Manual) Percent Retic Fibrinogen ABG pH 7.465 H POC ABG pO2 ABG pO2 104.3 H ABG HCO3 39.4 H ABG O2 Saturation ABG Base Excess 14.3 H ABG Hemoglobin 6.7 L Oxyhemoglobin Carboxyhemoglobin Sodium Potassium Chloride Carbon Dioxide BUN Creatinine Glucose POC Glucose 160 H Hemoglobin A1c Lactic Acid Calcium Phosphorus Magnesium Direct Bilirubin AST ALT Alkaline Phosphatase Lactate Dehydrogenase Total Protein Albumin Urine pH Ur Specific [place] Urine Blood Urine WBC (Auto) Vancomycin Trough Crossmatch 02/13/22 02/13/22 02/13/22 04:00 06:05 09:41 WBC RBC Hgb Hct MCV MCH RDW Plt Count Seg Neuts % (Manual) Lymphocytes % (Manual) Nucleated RBC % Seg Neutrophils # Man Lymphocytes # (Manual) Percent Retic Fibrinogen ABG pH POC ABG pO2 ABG pO2 ABG HCO3 ABG O2 Saturation ABG Base Excess ABG Hemoglobin Oxyhemoglobin Carboxyhemoglobin Sodium 146 H Potassium Chloride Carbon Dioxide 38 H BUN 25 H Creatinine 0.4 L Glucose 235 H POC Glucose 283 H Hemoglobin A1c Lactic Acid Calcium 8.0 L Phosphorus Magnesium Direct Bilirubin AST ALT 58 H Alkaline Phosphatase 143 H Lactate Dehydrogenase Total Protein 4.7 L Albumin 2.2 L Urine pH Ur Specific [place] Urine Blood Urine WBC (Auto) Vancomycin Trough Crossmatch See Detail 02/13/22 02/13/22 02/13/22 11:37 18:30 21:47 WBC RBC Hgb Hct MCV MCH RDW Plt Count Seg Neuts % (Manual) Lymphocytes % (Manual) Nucleated RBC % Seg Neutrophils # Man Lymphocytes # (Manual) Percent Retic Fibrinogen ABG pH POC ABG pO2 ABG pO2 ABG HCO3 ABG O2 Saturation ABG Base Excess ABG Hemoglobin Oxyhemoglobin Carboxyhemoglobin Sodium Potassium Chloride Carbon Dioxide BUN Creatinine Glucose POC Glucose 132 H 187 H 279 H Hemoglobin A1c Lactic Acid Calcium Phosphorus Magnesium Direct Bilirubin AST ALT Alkaline Phosphatase Lactate Dehydrogenase Total Protein Albumin Urine pH Ur Specific [place] Urine Blood Urine WBC (Auto) Vancomycin Trough Crossmatch 02/14/22 02/14/22 02/14/22 01:07 04:35 04:40 WBC 24.5 H RBC Hgb 9.4 L Hct 28.8 L D MCV 69 L MCH 23 L RDW 30.3 H Plt Count Seg Neuts % (Manual) Lymphocytes % (Manual) Nucleated RBC % Seg Neutrophils # Man Lymphocytes # (Manual) Percent Retic Fibrinogen ABG pH 7.484 H POC ABG pO2 ABG pO2 101.5 H ABG HCO3 35.8 H ABG O2 Saturation ABG Base Excess 11.1 H ABG Hemoglobin 9.4 L Oxyhemoglobin Carboxyhemoglobin Sodium Potassium Chloride Carbon Dioxide BUN Creatinine Glucose POC Glucose 267 H Hemoglobin A1c Lactic Acid Calcium Phosphorus Magnesium Direct Bilirubin AST ALT Alkaline Phosphatase Lactate Dehydrogenase Total Protein Albumin Urine pH Ur Specific [place] Urine Blood Urine WBC (Auto) Vancomycin Trough Crossmatch 02/14/22 02/14/22 02/14/22 06:16 09:03 11:20 WBC RBC Hgb Hct MCV MCH RDW Plt Count Seg Neuts % (Manual) Lymphocytes % (Manual) Nucleated RBC % Seg Neutrophils # Man Lymphocytes # (Manual) Percent Retic Fibrinogen ABG pH POC ABG pO2 ABG pO2 ABG HCO3 ABG O2 Saturation ABG Base Excess ABG Hemoglobin Oxyhemoglobin Carboxyhemoglobin Sodium Potassium Chloride Carbon Dioxide 39 H BUN 20 H Creatinine 0.4 L Glucose 144 H POC Glucose 183 H 42 L Hemoglobin A1c Lactic Acid Calcium 8.3 L Phosphorus Magnesium Direct Bilirubin AST ALT Alkaline Phosphatase Lactate Dehydrogenase Total Protein Albumin Urine pH Ur Specific [place] Urine Blood Urine WBC (Auto) Vancomycin Trough Crossmatch 02/14/22 02/14/22 02/14/22 18:07 18:10 18:36 WBC RBC Hgb Hct MCV MCH RDW Plt Count Seg Neuts % (Manual) Lymphocytes % (Manual) Nucleated RBC % Seg Neutrophils # Man Lymphocytes # (Manual) Percent Retic Fibrinogen ABG pH 7.518 H POC ABG pO2 ABG pO2 97.1 H ABG HCO3 38.8 H ABG O2 Saturation ABG Base Excess 13.8 H ABG Hemoglobin Oxyhemoglobin Carboxyhemoglobin Sodium Potassium Chloride Carbon Dioxide BUN Creatinine Glucose POC Glucose 29 L 143 H Hemoglobin A1c Lactic Acid Calcium Phosphorus Magnesium Direct Bilirubin AST ALT Alkaline Phosphatase Lactate Dehydrogenase Total Protein Albumin Urine pH Ur Specific [place] Urine Blood Urine WBC (Auto) Vancomycin Trough Crossmatch 02/14/22 02/15/22 02/15/22 23:44 03:31 05:23 WBC 20.1 H RBC Hgb 8.4 L Hct 26.6 L MCV 69 L MCH 22 L RDW 31.5 H Plt Count Seg Neuts % (Manual) Lymphocytes % (Manual) Nucleated RBC % Seg Neutrophils # Man Lymphocytes # (Manual) Percent Retic Fibrinogen ABG pH POC ABG pO2 ABG pO2 ABG HCO3 ABG O2 Saturation ABG Base Excess ABG Hemoglobin Oxyhemoglobin Carboxyhemoglobin Sodium Potassium Chloride Carbon Dioxide BUN Creatinine Glucose POC Glucose 229 H 232 H Hemoglobin A1c Lactic Acid Calcium Phosphorus Magnesium Direct Bilirubin AST ALT Alkaline Phosphatase Lactate Dehydrogenase Total Protein Albumin Urine pH Ur Specific [place] Urine Blood Urine WBC (Auto) Vancomycin Trough Crossmatch 02/15/22 02/15/22 02/15/22 11:32 17:41 23:24 WBC RBC Hgb Hct MCV MCH RDW Plt Count Seg Neuts % (Manual) Lymphocytes % (Manual) Nucleated RBC % Seg Neutrophils # Man Lymphocytes # (Manual) Percent Retic Fibrinogen ABG pH POC ABG pO2 ABG pO2 ABG HCO3 ABG O2 Saturation ABG Base Excess ABG Hemoglobin Oxyhemoglobin Carboxyhemoglobin Sodium Potassium Chloride Carbon Dioxide BUN Creatinine Glucose POC Glucose 160 H 211 H 261 H Hemoglobin A1c Lactic Acid Calcium Phosphorus Magnesium Direct Bilirubin AST ALT Alkaline Phosphatase Lactate Dehydrogenase Total Protein Albumin Urine pH Ur Specific [place] Urine Blood Urine WBC (Auto) Vancomycin Trough Crossmatch 02/16/22 02/16/22 02/16/22 04:36 04:36 05:11 WBC 17.3 H RBC Hgb 8.1 L Hct 26.6 L MCV 70 L MCH 21 L RDW 30.8 H Plt Count Seg Neuts % (Manual) Lymphocytes % (Manual) Nucleated RBC % Seg Neutrophils # Man Lymphocytes # (Manual) Percent Retic Fibrinogen ABG pH POC ABG pO2 ABG pO2 ABG HCO3 ABG O2 Saturation ABG Base Excess ABG Hemoglobin Oxyhemoglobin Carboxyhemoglobin Sodium Potassium Chloride Carbon Dioxide 34 H BUN 20 H Creatinine 0.4 L Glucose 206 H POC Glucose 198 H Hemoglobin A1c Lactic Acid Calcium 7.7 L Phosphorus Magnesium Direct Bilirubin AST ALT Alkaline Phosphatase Lactate Dehydrogenase Total Protein Albumin Urine pH Ur Specific [place] Urine Blood Urine WBC (Auto) Vancomycin Trough Crossmatch 02/16/22 02/16/22 02/17/22 11:25 16:29 00:16 WBC RBC Hgb Hct MCV MCH RDW Plt Count Seg Neuts % (Manual) Lymphocytes % (Manual) Nucleated RBC % Seg Neutrophils # Man Lymphocytes # (Manual) Percent Retic Fibrinogen ABG pH POC ABG pO2 ABG pO2 ABG HCO3 ABG O2 Saturation ABG Base Excess ABG Hemoglobin Oxyhemoglobin Carboxyhemoglobin Sodium Potassium Chloride Carbon Dioxide BUN Creatinine Glucose POC Glucose 130 H 182 H 220 H Hemoglobin A1c Lactic Acid Calcium Phosphorus Magnesium Direct Bilirubin AST ALT Alkaline Phosphatase Lactate Dehydrogenase Total Protein Albumin Urine pH Ur Specific [place] Urine Blood Urine WBC (Auto) Vancomycin Trough Crossmatch 02/17/22 02/17/22 02/17/22 05:00 05:06 05:58 WBC RBC Hgb Hct MCV MCH RDW Plt Count Seg Neuts % (Manual) Lymphocytes % (Manual) Nucleated RBC % Seg Neutrophils # Man Lymphocytes # (Manual) Percent Retic Fibrinogen ABG pH 7.463 H POC ABG pO2 ABG pO2 113.6 H ABG HCO3 32.8 H ABG O2 Saturation ABG Base Excess 8.1 H ABG Hemoglobin 8.0 L Oxyhemoglobin Carboxyhemoglobin Sodium Potassium Chloride Carbon Dioxide 34 H BUN 22 H Creatinine 0.4 L Glucose 314 H POC Glucose 269 H Hemoglobin A1c Lactic Acid Calcium 8.1 L Phosphorus Magnesium Direct Bilirubin AST ALT Alkaline Phosphatase Lactate Dehydrogenase Total Protein 5.4 L Albumin 2.5 L Urine pH Ur Specific [place] Urine Blood Urine WBC (Auto) Vancomycin Trough Crossmatch 02/17/22 02/17/22 02/17/22 11:18 16:41 21:51 WBC RBC Hgb Hct MCV MCH RDW Plt Count Seg Neuts % (Manual) Lymphocytes % (Manual) Nucleated RBC % Seg Neutrophils # Man Lymphocytes # (Manual) Percent Retic Fibrinogen ABG pH POC ABG pO2 ABG pO2 ABG HCO3 ABG O2 Saturation ABG Base Excess ABG Hemoglobin Oxyhemoglobin Carboxyhemoglobin Sodium Potassium Chloride Carbon Dioxide BUN Creatinine Glucose POC Glucose 135 H 248 H 266 H Hemoglobin A1c Lactic Acid Calcium Phosphorus Magnesium Direct Bilirubin AST ALT Alkaline Phosphatase Lactate Dehydrogenase Total Protein Albumin Urine pH Ur Specific [place] Urine Blood Urine WBC (Auto) Vancomycin Trough Crossmatch 02/17/22 02/18/22 02/18/22 23:38 01:04 04:00 WBC 14.8 H RBC Hgb 8.3 L Hct 27.3 L MCV 71 L MCH 22 L RDW 30.5 H Plt Count Seg Neuts % (Manual) Lymphocytes % (Manual) Nucleated RBC % Seg Neutrophils # Man Lymphocytes # (Manual) Percent Retic Fibrinogen ABG pH POC ABG pO2 ABG pO2 ABG HCO3 ABG O2 Saturation ABG Base Excess ABG Hemoglobin Oxyhemoglobin Carboxyhemoglobin Sodium Potassium Chloride Carbon Dioxide BUN Creatinine Glucose POC Glucose 287 H 272 H Hemoglobin A1c Lactic Acid Calcium Phosphorus Magnesium Direct Bilirubin AST ALT Alkaline Phosphatase Lactate Dehydrogenase Total Protein Albumin Urine pH Ur Specific [place] Urine Blood Urine WBC (Auto) Vancomycin Trough Crossmatch 02/18/22 02/18/22 02/18/22 04:00 05:38 11:27 WBC RBC Hgb Hct MCV MCH RDW Plt Count Seg Neuts % (Manual) Lymphocytes % (Manual) Nucleated RBC % Seg Neutrophils # Man Lymphocytes # (Manual) Percent Retic Fibrinogen ABG pH POC ABG pO2 ABG pO2 ABG HCO3 ABG O2 Saturation ABG Base Excess ABG Hemoglobin Oxyhemoglobin Carboxyhemoglobin Sodium Potassium Chloride Carbon Dioxide 32 H BUN 20 H Creatinine 0.3 L Glucose 132 H POC Glucose 117 H 44 L Hemoglobin A1c Lactic Acid Calcium Phosphorus Magnesium Direct Bilirubin AST ALT Alkaline Phosphatase Lactate Dehydrogenase Total Protein Albumin Urine pH Ur Specific [place] Urine Blood Urine WBC (Auto) Vancomycin Trough Crossmatch 02/18/22 02/18/22 02/18/22 11:29 11:49 13:41 WBC RBC Hgb Hct MCV MCH RDW Plt Count Seg Neuts % (Manual) Lymphocytes % (Manual) Nucleated RBC % Seg Neutrophils # Man Lymphocytes # (Manual) Percent Retic Fibrinogen ABG pH POC ABG pO2 ABG pO2 ABG HCO3 ABG O2 Saturation ABG Base Excess ABG Hemoglobin Oxyhemoglobin Carboxyhemoglobin Sodium Potassium Chloride Carbon Dioxide BUN Creatinine Glucose POC Glucose 50 L 216 H 128 H Hemoglobin A1c Lactic Acid Calcium Phosphorus Magnesium Direct Bilirubin AST ALT Alkaline Phosphatase Lactate Dehydrogenase Total Protein Albumin Urine pH Ur Specific [place] Urine Blood Urine WBC (Auto) Vancomycin Trough Crossmatch 02/18/22 02/19/22 02/19/22 21:37 00:45 06:05 WBC RBC Hgb Hct MCV MCH RDW Plt Count Seg Neuts % (Manual) Lymphocytes % (Manual) Nucleated RBC % Seg Neutrophils # Man Lymphocytes # (Manual) Percent Retic Fibrinogen ABG pH POC ABG pO2 ABG pO2 ABG HCO3 ABG O2 Saturation ABG Base Excess ABG Hemoglobin Oxyhemoglobin Carboxyhemoglobin Sodium Potassium Chloride Carbon Dioxide BUN Creatinine Glucose POC Glucose 119 H 131 H 149 H Hemoglobin A1c Lactic Acid Calcium Phosphorus Magnesium Direct Bilirubin AST ALT Alkaline Phosphatase Lactate Dehydrogenase Total Protein Albumin Urine pH Ur Specific [place] Urine Blood Urine WBC (Auto) Vancomycin Trough Crossmatch 02/19/22 02/19/22 02/19/22 06:10 06:10 11:49 WBC 21.4 H RBC Hgb 8.7 L Hct 28.0 L MCV 69 L MCH 22 L RDW 30.9 H Plt Count 466 H Seg Neuts % (Manual) Lymphocytes % (Manual) Nucleated RBC % Seg Neutrophils # Man Lymphocytes # (Manual) Percent Retic Fibrinogen ABG pH POC ABG pO2 ABG pO2 ABG HCO3 ABG O2 Saturation ABG Base Excess ABG Hemoglobin Oxyhemoglobin Carboxyhemoglobin Sodium Potassium Chloride Carbon Dioxide BUN Creatinine 0.3 L Glucose 143 H POC Glucose 20 L Hemoglobin A1c Lactic Acid Calcium Phosphorus Magnesium Direct Bilirubin AST ALT Alkaline Phosphatase Lactate Dehydrogenase Total Protein Albumin Urine pH Ur Specific [place] Urine Blood Urine WBC (Auto) Vancomycin Trough Crossmatch 02/19/22 02/19/22 02/19/22 11:51 12:37 16:47 WBC RBC Hgb Hct MCV MCH RDW Plt Count Seg Neuts % (Manual) Lymphocytes % (Manual) Nucleated RBC % Seg Neutrophils # Man Lymphocytes # (Manual) Percent Retic Fibrinogen ABG pH POC ABG pO2 ABG pO2 ABG HCO3 ABG O2 Saturation ABG Base Excess ABG Hemoglobin Oxyhemoglobin Carboxyhemoglobin Sodium Potassium Chloride Carbon Dioxide BUN Creatinine Glucose POC Glucose 26 L 159 H 54 L Hemoglobin A1c Lactic Acid Calcium Phosphorus Magnesium Direct Bilirubin AST ALT Alkaline Phosphatase Lactate Dehydrogenase Total Protein Albumin Urine pH Ur Specific [place] Urine Blood Urine WBC (Auto) Vancomycin Trough Crossmatch 02/19/22 02/19/22 02/20/22 18:15 23:37 04:22 WBC 19.1 H RBC 3.43 L Hgb 7.4 L Hct 24.3 L MCV 71 L MCH 22 L RDW 30.0 H Plt Count Seg Neuts % (Manual) Lymphocytes % (Manual) Nucleated RBC % Seg Neutrophils # Man Lymphocytes # (Manual) Percent Retic Fibrinogen ABG pH POC ABG pO2 ABG pO2 ABG HCO3 ABG O2 Saturation ABG Base Excess ABG Hemoglobin Oxyhemoglobin Carboxyhemoglobin Sodium Potassium Chloride Carbon Dioxide BUN Creatinine Glucose POC Glucose 176 H Hemoglobin A1c Lactic Acid Calcium Phosphorus Magnesium Direct Bilirubin AST ALT Alkaline Phosphatase Lactate Dehydrogenase Total Protein Albumin Urine pH 8.0 H Ur Specific [place] 1.000 L Urine Blood Urine WBC (Auto) Vancomycin Trough Crossmatch 02/20/22 02/20/22 02/20/22 04:22 06:08 11:27 WBC RBC Hgb Hct MCV MCH RDW Plt Count Seg Neuts % (Manual) Lymphocytes % (Manual) Nucleated RBC % Seg Neutrophils # Man Lymphocytes # (Manual) Percent Retic Fibrinogen ABG pH POC ABG pO2 ABG pO2 ABG HCO3 ABG O2 Saturation ABG Base Excess ABG Hemoglobin Oxyhemoglobin Carboxyhemoglobin Sodium Potassium 3.3 L D Chloride Carbon Dioxide BUN Creatinine 0.3 L Glucose 223 H POC Glucose 195 H 235 H Hemoglobin A1c Lactic Acid Calcium 8.3 L Phosphorus Magnesium Direct Bilirubin AST ALT Alkaline Phosphatase Lactate Dehydrogenase Total Protein Albumin Urine pH Ur Specific [place] Urine Blood Urine WBC (Auto) Vancomycin Trough Crossmatch 02/20/22 02/20/22 02/21/22 17:28 22:16 00:41 WBC RBC Hgb Hct MCV MCH RDW Plt Count Seg Neuts % (Manual) Lymphocytes % (Manual) Nucleated RBC % Seg Neutrophils # Man Lymphocytes # (Manual) Percent Retic Fibrinogen ABG pH POC ABG pO2 ABG pO2 ABG HCO3 ABG O2 Saturation ABG Base Excess ABG Hemoglobin Oxyhemoglobin Carboxyhemoglobin Sodium Potassium Chloride Carbon Dioxide BUN Creatinine Glucose POC Glucose 265 H 185 H 186 H Hemoglobin A1c Lactic Acid Calcium Phosphorus Magnesium Direct Bilirubin AST ALT Alkaline Phosphatase Lactate Dehydrogenase Total Protein Albumin Urine pH Ur Specific [place] Urine Blood Urine WBC (Auto) Vancomycin Trough Crossmatch 02/21/22 02/21/22 02/21/22 04:27 04:27 16:51 WBC 17.1 H RBC 3.41 L Hgb 7.4 L Hct 23.6 L MCV 69 L MCH 22 L RDW 30.1 H Plt Count Seg Neuts % (Manual) Lymphocytes % (Manual) Nucleated RBC % Seg Neutrophils # Man Lymphocytes # (Manual) Percent Retic Fibrinogen ABG pH POC ABG pO2 ABG pO2 ABG HCO3 ABG O2 Saturation ABG Base Excess ABG Hemoglobin Oxyhemoglobin Carboxyhemoglobin Sodium Potassium Chloride 108.2 H Carbon Dioxide BUN Creatinine 0.3 L Glucose 107 H POC Glucose 158 H Hemoglobin A1c Lactic Acid Calcium Phosphorus Magnesium Direct Bilirubin AST ALT Alkaline Phosphatase Lactate Dehydrogenase Total Protein Albumin Urine pH Ur Specific [place] Urine Blood Urine WBC (Auto) Vancomycin Trough Crossmatch 02/22/22 02/22/22 02/22/22 00:15 04:00 04:00 WBC 15.0 H RBC 3.62 L Hgb 7.7 L Hct 24.8 L MCV 68 L MCH 21 L RDW 29.9 H Plt Count 442 H Seg Neuts % (Manual) Lymphocytes % (Manual) Nucleated RBC % Seg Neutrophils # Man Lymphocytes # (Manual) Percent Retic Fibrinogen ABG pH POC ABG pO2 ABG pO2 ABG HCO3 ABG O2 Saturation ABG Base Excess ABG Hemoglobin Oxyhemoglobin Carboxyhemoglobin Sodium Potassium Chloride 108.7 H Carbon Dioxide BUN Creatinine 0.4 L Glucose 49 L POC Glucose 137 H Hemoglobin A1c Lactic Acid Calcium Phosphorus Magnesium Direct Bilirubin AST ALT Alkaline Phosphatase Lactate Dehydrogenase Total Protein Albumin Urine pH Ur Specific [place] Urine Blood Urine WBC (Auto) Vancomycin Trough Crossmatch 02/22/22 02/22/22 05:20 05:42 WBC RBC Hgb Hct MCV MCH RDW Plt Count Seg Neuts % (Manual) Lymphocytes % (Manual) Nucleated RBC % Seg Neutrophils # Man Lymphocytes # (Manual) Percent Retic Fibrinogen ABG pH POC ABG pO2 ABG pO2 ABG HCO3 ABG O2 Saturation ABG Base Excess ABG Hemoglobin Oxyhemoglobin Carboxyhemoglobin Sodium Potassium Chloride Carbon Dioxide BUN Creatinine Glucose POC Glucose 57 L 163 H Hemoglobin A1c Lactic Acid Calcium Phosphorus Magnesium Direct Bilirubin AST ALT Alkaline Phosphatase Lactate Dehydrogenase Total Protein Albumin Urine pH Ur Specific [place] Urine Blood Urine WBC (Auto) Vancomycin Trough Crossmatch
--- NOTE | 2022-02-22 13:32 | Discharge Summary ---
<NICOLA TREVINO - Last Filed: 02/22/22 18:56> Providers - Providers Date of Admission: 02/01/22 00:58 Date of discharge: 02/22/22 Attending physician: MELISSA WHITE MD 02/01/22 01:00 Consult to Dietitian/Nutrition [CONS] Routine Physician Instructions: Reason For Exam: Reason for Consult: Malnutrition 02/01/22 08:50 Consult to Physician [CONS] Routine Comment: noted/ ivone Consulting Provider: RUPESH SHERMAN Physician Instructions: Reason For Exam: critical care 02/02/22 07:58 Consult to Dietitian/Nutrition [CONS] Routine Physician Instructions: Reason For Exam: Reason for Consult: Write/Manage Tube Feeding 02/02/22 08:08 Consult to Dietitian/Nutrition [CONS] Routine Physician Instructions: Assess nutrtn needs, initiate, modify, manage TF Reason For Exam: Reason for Consult: Write/Manage Tube Feeding Reason for Consult: Write/Manage Tube Feeding 02/02/22 09:46 Consult to Physician [CONS] Routine Comment: Consulting Provider: KULDIP VIZCARRA Physician Instructions: Reason For Exam: post arrest 02/02/22 09:47 Consult to Physician [CONS] Routine Comment: call answering service/rom Consulting Provider: MAXIMINO BREWER Physician Instructions: Reason For Exam: post cardiac arrest 02/04/22 09:18 Consult to Physician [CONS] Routine Comment: called office/rom Consulting Provider: LIBRADO SOW Physician Instructions: Reason For Exam: Septic Shock-Spiking temp on broad spectrum Abx 02/05/22 08:00 Consult to Physician [CONS] Routine Comment: left mess./ ivone Consulting Provider: TYSON ESPAÑA Physician Instructions: Reason For Exam: Pancytopenia 02/12/22 15:28 Consult to Physician [CONS] Routine Comment: noted/ ivone Consulting Provider: KAREN HUSAIN Physician Instructions: Reason For Exam: multifocal arthrosclerotic disease BLE 02/15/22 09:12 Consult to Physician [CONS] Routine Comment: Consulting Provider: EMMANUEL CONNOR Physician Instructions: Reason For Exam: trach/peg 02/16/22 11:06 Consult to PICC Line RN [CONS] Routine Reason For Exam: needs meterman access Type Line:: PICC Primary care physician: ROSANNE RODRIGUES Hospitalization Reason for admission: DKA Condition: Fair Hospital course: This is a 61-year-old female with known past medical history of DM, dementia, HLD, and HTN initially admitted for Hypoglycemia then went into DKA and was transferred to the ICU where she PEA arrested on 02/01. Patient is now with septic shock and on ventilatory support. Hospital Course to Date: 02/01: patient was transferred to ICU as lab work was consistent with DKA and started on insulin drip. Central line placed for IV access. Patient was given bicarb push and started on a bicarb drip. She was also started on Rocephin due to UTI however antibiotics are broadened to cefepime and vancomycin. 02/02: s/p cardiac arrest on 02/01. Bicarbonate drip discontinued. Pancytopenia noted, anion gap closed and transitioned to SSI and long-acting insulin. Patient was having hypoglycemia this morning which has been corrected now. Started on tube feeding. Potassium and phosphorus will be repleted. Hypernatremia noted and FWF started with tube feedings. COVID-19 PCR pending. Venous Doppler ultrasound pending. Neurology and cardiology consulted. Echocardiogram pending. Patient currently on Levophed and sedated with propofol. Fentanyl added. Given 1 LR bolus this morning for hypotension. 02/03: LR bolus x2, remains on levophed, tachycardia and EKG completed which shows tachycardia. Increase in FiO2, Will culture with next temp spike. Will give 1 gm Calcium Gluconate. 02/04: S/p Bronch this am by CCM at the bedside. Patient still spiking high temp despite broad spectrum IV Abx. Remains on high pressors with worsen neutropenia and thrombocytopenia. Will panculture this am, antifungal culture was also ordered. Continue current empiric IV Abx for now, awaiting sensitivity. Will also consult ID for further eval. Possible Hematology consult for pancytopenia per CCM. Possible family meeting with [facility] this week, case management to arrange. 02/05: Back up on full support on the vent. CXR with worsen bilateral opacities, S/p X1 dose of IV lasix. Patient also received 1units of PRBCs overnight due to anemia, H&H stable this am and no s/s of any active bleeding. Patient remains pancytopenic, still febrile. IV abx changed to Merrem and Vanc per ID, hematology consult pending. ST with episodes of SVT this am, plan for amiodarone gtt per Cardio. Off pressors this am. BP remains boderline, 25% IV Albumin and X1 dose of additional IV lasix gain today per CCM. Continue FWF for hypernatremia. Lantus adjusted due to hypoglycemia. Possible family meeting tomorrow with [facility]. 8/3: Decompensated this am, sudden drop in SPO2 in the 80s, HR in the 50s, and MAP in the 40s. Back on 2 pressors, on 100% FIO2 and 12 of peep. Stat ABG pending, 1amp Bcarb given, stress dose steroids initiated. This an CXR reviewed with worsen opacities from prior. Patient remains on IV abx per ID. Hematology recommendations appreciated. Event discussed with [facility] who agreed with current intervention. Patient's daughter and sister were notified via phone. Current events, patient's diagnosis, overal condition, and poor prognosis were thoroughly discussed. GOC was also addressed with patient's daughter and sister, they voiced that if patient was able to speak for herself she would want all lifesaving measures, including CPR and medications if her heart stop. All questions and concerns were addressed at this time. They verbalized understanding and agreed with current care plan. Patient remains a FULL code status at This time. 84: Responded well to IV lasix and albumin overnight. CXR with some improvement today. IV lasix and albumin gain today per CCM. With increased WOB and tachpnea this am, low dose propofol added for RASS goal of 0 to -2. Wean FIO2 as tolerated for SPO2 goal above 92%. Worsen hyperglycemia this am, most like due to IV steroids, insulin therapy adjusted. Monitor and replace electrolytes as needed. Family meeting today with [facility], patient remains a FULL code status. 85: Tolerating gentle diurese. Patient missed overnight IV lasix/albumin dose, will repeat another dose this morning. Continue to wean Fio2 as tolerated. Remains off pressors, VSS. Concern for BLE ischemia probably due to hypoperfusion vs pressor use. Will check BLE arterial doppler to r/o occlusion. Possible Vascular Surgery consult dependent on doppler result. Lantus adjusted for persisting hyperglycemia. Electrolytes repleted, monitor and replace electrolytes as needed. 86: This am ABG and CXR with some improvement this am. Down to 55% Fio2 this am. Hypotensive overnight required short duration of Levophed gtt, pressor is off this am. Will hold on IV diuretic today. Continue to monitor for now. Electrolytes repleted, monitor and replace electrolytes as needed. Prior history of psych issues, seroquel added BID. BLE doppler pending. 02/10: Remains stable on the vent. Down to 40% Fio2 and peep of 10 this am, SPO2 above 95%, CXR is unchanged. Continue vent wean as tolerated. Remains on IV steroid, will start tapering tomorrow. Per [facility], plan is to optimize patient on the vent for possible trach and PEG. FWF increased for persistent hypernatremia. K and phos repleted. Continue to monitor and replace electrolytes as needed. 02/11: Water flush continued at 300 mL every 4, potassium repleted, remains on vasopressors. No acute events reported overnight. intiate seriod taper 02/12: Patient being weaned down IV fentanyl pushes ordered, Lantus decreased, decreased PEEP and RT placed on pressure support this afternoon. No acute events overnight. 02/13: Patient attempted on PSV again today, steroids continue to be tapered. Tentative extubation tomorrow was supplanted by [facility]. Patient only lasted 3 hours again today. Vascular surgery consult completed and recommended plavix. 02/14: Patient was extubated today to nasal cannula. This afternoon she was started on high flow nasal cannula. No acute events reported overnight. Steroids tapered. Femoral A-line removed. 02/15: No acute events reported overnight. Surgery consulted for trach/PEG.. COVID-[address] abdomen/pelvis pending. Possible trach/PEG placement on 02/18. 02/16: PICC line to be placed today. Given 1 dose of albumin with Lasix. Discontinue CVL. No acute events reported overnight. 02/17: No acute events reported overnight, now bilateral lower extremities with discoloration. Plavix scheduled to start Friday. PEG/trach scheduled for Friday. PICC line consent obtained. lantus adjusted. CPAP today. 02/18: KYLAH overnight. Plan for trach and PEG today by General Surgery in OR. Worsen LE ischemia noted, pending CTA chest/Abd/pelvis. Vascular Surgery is also following. 02/19: s/p Trach and PEG yesterday. Patient did not tolerate TF overnight, projectile vomitting reported. TF currently on hold, KUB is unremarkable. Scheduled reglan added, will hold TF for now. High fevers with worsen leukocytosis this am, will panculture for now. ST, HR in the 130s this am, BP stable. 1L of IVF bolus given, will hold IV Abx for now. Will added low rate D10w for now for hypoglycemia, most likely due to NPO status. Will also hold Lantus, resume once TF is tolerated. CTA chest/ABd/Pelvis still pendinf, awaiting Vascular surgery final recommendation for mitchell ischemia. 02/20: Remains stable on the vent, AAO, following commands this am. CTA chest reveal incidental PE, BLE doppler also positive DVT in right common femoral vein. Therapeutic Lovenox initiated. Still with persistent fevers, repeat cultures with no growth to date. Fevers probably secondary to DVT/PE. Tachycardic in the 140s this am, 500 cc of IVF bolus administered, HR improved in the 100- 110s, VSS. Vomiting resolved, resume TF as ordered. Awaiting Vascular surgery final recommendation for limb ischemia. 02/21: Remains stable on the vent, fevers and leukocytosis improved, VSS. Vascular surgery recommendations noted, no plan for any intervention at this time. Continue Plavix and therapeutic Lovenox for VTE and PE. Possible discharge to LTAC tomorrow. 02/22: Tachycardic and tachypneic this am with low grade fever, BP stable. IV push versed and Fentanyl given with no improvement. Patient remains on low vent setting, SPO2 at 100% and Cultures with NGTD. S/p 1L NS bolus and X1 dose of 5mg IV pusch Lopressor, HR improved in the 120s, BP remains stable. Patient RR improved in the high 20s, will start low dose fentanyl gtt for pain control. Continue Lovenox BID for DVT/PE. Plan for transfer to LTAC today. Assessment and Plan #Septic Shock #Supraventricular Tachycardia(SVT) #S/p PEA Arrest with [facility] #H/o HTN, HLD - Coded in the ICU on 02/01, PEA arrest - [facility] achieved post 1amp of bcarb and EPI - With tachycardia, persistent fevers, s/p multiple pressors - off pressors this am. ST on the monitor, VSS - On Stress dose steroids- tapering - Echo reviewed, EF 55-60%, see report for detail - Cardiology consulted, appreciated recommendations - amiodarone gtt transitioned to PO per Cardio - Continue blood pressure monitor per protocol - Pressor on standby for MAP less than 65 #Acute Hypoxic Respiratory Failure #ARDS #Bilateral Pneumonia - Intubated during code on 02/01 - This am CXR with worsening bilateral airspace opacities - 02/04 s/p Bronchoscopy at the bedside by [facility]- BAL sent to lab - 02/18 s/p Trach and PEG-Tube placement - Vent setting: PRVC-30%,6,12,350 - s/p albumin and IV lasix - [facility] consulted, appreciate recommendations - Continue vent wean per CCM - VAP bundle addressed - Aspiration precaution HOB above 30 - Daily ABG and CXR - Continue SPO2 monitoring for SPO2 goal above 92% - Per CCM, plan is to optimize patient on the vent for possible trach and PEG #Persistent Fevers #Septic Shock #Bilateral Pneumonia #Urinary Tract Infection(UTI) - UA consistent with pyuria, Blood cultures with NGTD, Sputum culture with Klebsiella Pneumoniae, repeat cultures with NGTD - Completed Iv Abx course per ID - Now with high fevers and worsen leukocytosis - Cultures with NGTD - Fevers probably secondary to DVT/PE. - hold off on IV abx for now - f/u on culture - Monitor CBC and temperature curve - ID signed off. Reconsult if cultures + #Microcytic Anemia #Pancytopenia-Resolved - Significant drop of WBCs and Plt count from admit - Probably due to septic shock, on IV Abx per ID - S/p 2unit PRBCs - No s/s of active bleeding, H&H stable this am - Continue to trend CBC - Hematology signed off #Acute Metabolic Encephalopathy #h/o Dementia and Psych Issues - Intubated and Sedated- on fentanyl - Titrate sedations for RASS goal of 0 to -2 - Seroquel added BID - Daily SAT and SBT per CCM - Avoid benzodiazepine to reduce the possibility of delirium - PRN Analgesia for CPOT greater than 3 - Maintenance of sleep-wake cycle - Neurology consulted, appreciate recommendations #Acute Pulmonary Emboli #Acute RLE DVT - CTA chest reveal incidental small nonocclusive PE - BLE doppler positive DVT DVT in right common femoral vein - Therapeutic Lovenox initiated #Hypokalemia #Hypernatremia - Strict intake and output - Avoid nephrotoxic medications - Monitor and replace electrolytes as needed #BLE Ischemia - probably due to hypoperfusion vs pressor use. - BLE arterial doppler noted - Vascular Surgery consulted - CTA chest/Abd/Plevis reviewed - No plan for any intervention at this time per Vascular surgery - Continue Plavix and Lovenix BID #Type 2 Diabetes mellitus #S/p DKA - initially presented with hypoglycemia then went into DKA - s/p DKA protocol - Hemoglobin A1c 11.1 - Now with hyperglycemia, most likely due to IV steroids - Continue BG and SSI Q6hrs and Lantus qHs- Held due to hypoglycemia - Avoid Hypoglycemia #GI/DVT Prophylaxis - PPI- Pepcid - Lovenox BID - SCDs to bilateral lower extremities while in bed #Advance Care Planning - Patient's diagnosis, overal condition, and poor prognosis were thoroughly discussed. GOC was also addressed with patient's daughter and sister, they voiced that if patient was able to speak for herself she would want all lifesaving measures, including CPR and medications if her heart stop. All questions and concerns were addressed at this time. They verbalized understanding and agreed with current care plan. Patient remains a FULL code status at This time. Disposition: [address] [place] [address] Final Discharge Diagnosis (Prints w/discharge instructions): S/p PEA Arrest with [facility]. Septic Shock. Acute Hypoxic Respiratory Failure. ARDS Time spent for discharge: 35 Core Measure Documentation - Palliative Care Palliative Care/ Comfort Measures: Not Applicable - Core Measures Any of the following diagnoses?: DVT/PE - VTE Discharge Requirements Deep Vein Thrombosis/Pulmonary Embolism Present on Admission: Yes Has pt received <5 days of overlap therapy or INR<2.0: Yes Anticoagulant overlap therapy prescribed at discharge: Yes Exam - Physical Exam Narrative exam: General appearance: Present: no acute distress, other (s/p trach, stable on the vent) - EENT Eyes: Present: PERRLA - Respiratory Respiratory effort: Unlabored Respiratory: bilateral: rhonchi, wheezing - Cardiovascular Rhythm: regular Heart Sounds: Present: S1 & S2 - Extremities Extremities: Abnormal. BLE cold to touch, ischemia. Absent pulses Extremity abnormal: edema - Peripheral Assessment Generalized Edema Type: Pitting Edema Degree: 2+ Capillary Refill: < 3 seconds Skin Temperature: Warm Peripheral Pulses: within normal limits - Abdominal General gastrointestinal: soft, non-distended, normal bowel sounds - Integumentary Integumentary: Present: warm (Weeping) - Psychiatric Psychiatric: Awake and appropriate, cooperative - Neurologic Neurologic: move all extremities, other (AAO, following simple commands) - Allied Health Allied health notes reviewed: nursing, case management - Constitutional Vitals: Temp Pulse Resp BP Pulse Ox 100.9 F H 143 H 25 H 117/83 98 02/22/22 08:00 02/22/22 12:39 02/22/22 12:01 02/22/22 12:39 02/22/22 12:01 Plan Activity: no restrictions Diet: other (TF) Wound: open to air, other (Limb ischemia) Follow up with: ROSANNE RODRIGUES MD [Primary Care Provider] - 3-5 Days <MELISSA WHITE - Last Filed: 02/23/22 07:37> Providers - Providers Date of Admission: 02/01/22 00:58 Attending physician: MELISSA WHITE MD 02/01/22 01:00 Consult to Dietitian/Nutrition [CONS] Routine Physician Instructions: Reason For Exam: Reason for Consult: Malnutrition 02/01/22 08:50 Consult to Physician [CONS] Routine Comment: noted/ ivone Consulting Provider: RUPESH SHERMAN Physician Instructions: Reason For Exam: critical care 02/02/22 07:58 Consult to Dietitian/Nutrition [CONS] Routine Physician Instructions: Reason For Exam: Reason for Consult: Write/Manage Tube Feeding 02/02/22 08:08 Consult to Dietitian/Nutrition [CONS] Routine Physician Instructions: Assess nutrtn needs, initiate, modify, manage TF Reason For Exam: Reason for Consult: Write/Manage Tube Feeding Reason for Consult: Write/Manage Tube Feeding 02/02/22 09:46 Consult to Physician [CONS] Routine Comment: Consulting Provider: KULDIP VIZCARRA Physician Instructions: Reason For Exam: post arrest 02/02/22 09:47 Consult to Physician [CONS] Routine Comment: call answering service/rom Consulting Provider: MAXIMINO BREWER Physician Instructions: Reason For Exam: post cardiac arrest 02/04/22 09:18 Consult to Physician [CONS] Routine Comment: called office/rom Consulting Provider: LIBRADO SOW Physician Instructions: Reason For Exam: Septic Shock-Spiking temp on broad spectrum Abx 02/05/22 08:00 Consult to Physician [CONS] Routine Comment: left mess./ ivone Consulting Provider: TYSON ESPAÑA Physician Instructions: Reason For Exam: Pancytopenia 02/12/22 15:28 Consult to Physician [CONS] Routine Comment: noted/ ivone Consulting Provider: KAREN HUSAIN Physician Instructions: Reason For Exam: multifocal arthrosclerotic disease BLE 02/15/22 09:12 Consult to Physician [CONS] Routine Comment: Consulting Provider: EMMANUEL CONNOR Physician Instructions: Reason For Exam: trach/peg 02/16/22 11:06 Consult to PICC Line RN [CONS] Routine Reason For Exam: needs long-term access Type Line:: PICC Primary care physician: ROSANNE RODRIGUES Hospitalization Hospital course: I saw and evaluated the patient. I agree with the findings and the plan of care as documented in the Nurse Practitioner's~note, with the following corrections and additions. Exam - Constitutional Vitals: Temp Pulse Resp BP Pulse Ox 100.5 F H 115 H 27 H 101/70 100 02/22/22 16:00 02/22/22 18:00 02/22/22 18:00 02/22/22 18:00 02/22/22 18:00
[2022-02-22] MEDS ORDERED: ACETAMINOPHEN 325 MG/10.15 ML ORAL LIQD UNIT DOSE FEEDTUBE PRN (13:53)
[2022-02-22] MEDS ORDERED: fentaNYL 100 MCG/2 ML INJ IV PRN (14:00)
[2022-02-22] MEDS ORDERED: fentaNYL DRIP Premix 2,000 MCG/100 ML BAG IV SCH (14:00)
[2022-02-22 18:11] VITALS: BP 101/70
--- NOTE | 2022-02-26 13:36 | Electrocardiograph Report ---
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
== END 2022-02-22 19:22 | DRG 4 ==
LOC: ED 17:39 → 4A 02-01 00:58 → CC1 02-01 08:50
PROVIDERS: ADMIT Hospitalist; ATTEND Internal Medicine
PROC: 5A1955Z Respiratory Ventilation, Greater than 96 Consecutive Hours (ICD-10-PCS; principal; 2022-02-01)
PROC: 0BH17EZ Insertion of Endotracheal Airway into Trachea, Via Natural or Artificial Opening (ICD-10-PCS; 2022-02-01)
PROC: 4A033R1 Measurement of Arterial Saturation, Peripheral, Percutaneous Approach (ICD-10-PCS; 2022-02-01)
PROC: 02HV33Z Insertion of Infusion Device into Superior Vena Cava, Percutaneous Approach (ICD-10-PCS; 2022-02-01)
PROC: 5A12012 Performance of Cardiac Output, Single, Manual (ICD-10-PCS; 2022-02-01)
PROC: 0B958ZZ Drainage of Right Middle Lobe Bronchus, Via Natural or Artificial Opening Endoscopic (ICD-10-PCS; 2022-02-04)
PROC: 04HY32Z Insertion of Monitoring Device into Lower Artery, Percutaneous Approach (ICD-10-PCS; 2022-02-04)
PROC: 30233N1 Transfusion of Nonautologous Red Blood Cells into Peripheral Vein, Percutaneous Approach (ICD-10-PCS; 2022-02-13)
PROC: 02HV33Z Insertion of Infusion Device into Superior Vena Cava, Percutaneous Approach (ICD-10-PCS; 2022-02-17)
PROC: B548ZZA Ultrasonography of Superior Vena Cava, Guidance (ICD-10-PCS; 2022-02-17)
PROC: 0B113F4 Bypass Trachea to Cutaneous with Tracheostomy Device, Percutaneous Approach (ICD-10-PCS; 2022-02-18)
PROC: 0BJ08ZZ Inspection of Tracheobronchial Tree, Via Natural or Artificial Opening Endoscopic (ICD-10-PCS; 2022-02-18)
PROC: 0DH63UZ Insertion of Feeding Device into Stomach, Percutaneous Approach (ICD-10-PCS; 2022-02-18)
DX: A41.9 Sepsis, unspecified organism (principal); J96.01 Acute respiratory failure with hypoxia; G93.41 Metabolic encephalopathy; R65.21 Severe sepsis with septic shock; E11.10 Type 2 diabetes mellitus with ketoacidosis without coma; J18.9 Pneumonia, unspecified organism; I46.9 Cardiac arrest, cause unspecified; E87.0 Hyperosmolality and hypernatremia; I47.1 Supraventricular tachycardia; Z20.822 Contact with and (suspected) exposure to COVID-19; E87.5 Hyperkalemia; N39.0 Urinary tract infection, site not specified; D69.6 Thrombocytopenia, unspecified; E78.5 Hyperlipidemia, unspecified; J96.02 Acute respiratory failure with hypercapnia; E87.6 Hypokalemia; E87.8 Other disorders of electrolyte and fluid balance, not elsewhere classified; E83.39 Other disorders of phosphorus metabolism; D61.818 Other pancytopenia; R53.81 Other malaise; E44.0 Moderate protein-calorie malnutrition; D64.9 Anemia, unspecified; I26.99 Other pulmonary embolism without acute cor pulmonale; I82.411 Acute embolism and thrombosis of right femoral vein; I99.8 Other disorder of circulatory system; E11.649 Type 2 diabetes mellitus with hypoglycemia without coma
CPT/HCPCS: 36415; 36600; 71045; 71275; 74018; 74176; 75635; 80048; 80053; 80076; 80202; 81001; 82140; 82803; 82805; 82962; 83036; 83615; 83735; 84100; 84484; 85007; 85014; 85018; 85025; 85027; 85045; 85384; 85610; 85730; 86850; 86900; 86901; 86920; 87040; 87070; 87076; 87086; 87102; 87103; 87116; 87186; 87205; 87220; 87806; 88112; 88312; 88342; 93005; 93306; 93925; 93970; 94002; 94003; 94640; 94760; G0378; J2354; J3490; J7060; J7510; Q9967; C1887; C8929; J0282; J0330; J0461; J0610; J0692; J0696; J1650; J1720; J1815; J1940; J2060; J2185; J2250; J2270; J2370; J2405; J2704; J2765; J3010; J3370; J3475; J3480; J7030; J7040; J7050; J7070; J7120; J7512; P9016; P9047; U0003

== ENCOUNTER 2022-02-23 21:47 | Emergency (ER) | payer MEDICAID ==
--- NOTE | 2022-02-23 22:54 | XRay Report ---
CHEST 1 VIEW INDICATION / CLINICAL INFORMATION: Pneumothorax. COMPARISON: Chest x-ray 02/22/2022 FINDINGS: SUPPORT DEVICES: Tracheostomy tube and right-sided PICC are stable. HEART / MEDIASTINUM: Heart size is within normal limits. Mediastinal contour demonstrates no signific ant abnormality. LUNGS / PLEURA: Lungs continue to demonstrate diffuse interstitial prominence with superimposed airsp conchis opacities bilaterally. Interval development of small right pneumothorax. Displacement of the pleu ral stripe measuring up to 1.5 cm lower chest. BONES: No significant osseous abnormality. ADDITIONAL FINDINGS: No significant additional findings. IMPRESSION: 1. Interval development of right-sided pneumothorax. 2. Diffuse interstitial and airspace opacities without significant interval change. IMPORTANT FINDING: New right pneumothorax Time of Communication (DOCK HAND/CDT): 2149 hours Licensed Practitioner Receiving Report: Dr. Cazares Signer Name: Jamil Maldonado II, MD Signed: 02/23/2022 10:50 PM Workstation Name: [id number]
[2022-02-23 22:55] LABS: ABG Base Excess -2.4 mmol/L (-2.0-3.0); ABG HCO3 21.9 mmol/L (20.0-26.0); ABG Methemoglobin 0.5 % (0.0-1.5); ABG Oxygen Saturation 98.4 % (95.0-99.0); ABG PCO2 35.3 mm Hg; ABG PH 7.411 pH Units (7.350-7.450); ABG PO2 123.9 mm Hg (80.0-90.0)
--- NOTE | 2022-02-23 23:53 | XRay Report ---
CHEST 1 VIEW INDICATION / CLINICAL INFORMATION: Dyspnea, chest tube pmt. COMPARISON: Chest x-ray 02/23/2022 FINDINGS: SUPPORT DEVICES: Interval placement of small-caliber thoracostomy tube right lateral hemithorax. Trac heostomy tube and right-sided PICC appears stable. HEART / MEDIASTINUM: Heart size is within normal limits. Mediastinal contour demonstrates no signific ant abnormality. LUNGS / PLEURA: Diffuse bilateral interstitial and airspace opacities remain present unchanged. The r ight-sided pneumothorax suggests minimal change. If any change. There may be slight interval increase in displacement of the lateral pleural stripe within the upper right hemithorax. BONES: No significant osseous abnormality. ADDITIONAL FINDINGS: No significant additional findings. IMPRESSION: 1. Interval placement of small caliber thoracostomy tube right hemithorax. 2. The right-sided pneumothorax is stable to slightly increased in size based on displacement of the superolateral pleural surface. 3. Stable appearance of diffuse bilateral lung opacities. Signer Name: Jamil Maldonado II, MD Signed: 02/23/2022 11:49 PM Workstation Name: [id number]
[2022-02-23] MEDS ORDERED: SODIUM CHLORIDE 0.9% 1000 ML 1,000 ML IV ONE (23:54)
--- NOTE | 2022-02-24 00:06 | XRay Report ---
CHEST 1 VIEW INDICATION / CLINICAL INFORMATION: Chest tube placement. COMPARISON: Chest x-ray 02/23/2022 FINDINGS: SUPPORT DEVICES: Interval repositioning of right-sided thoracostomy tube. Tracheostomy tube and right -sided PICC are stable. HEART / MEDIASTINUM: Heart size is within normal limits. Mediastinal contour demonstrates no signific ant abnormality. LUNGS / PLEURA: Much improved appearance of the right-sided pneumothorax. Lungs otherwise without sig nificant change. BONES: No significant osseous abnormality. ADDITIONAL FINDINGS: No significant additional findings. IMPRESSION: 1. Much improved appearance of right-sided pneumothorax status post repositioning of thoracostomy tub e. Signer Name: Jamil Maldonado II, MD Signed: 02/24/2022 12:01 AM Workstation Name: [id number]
[2022-02-24 00:40] LABS: Alanine Aminotransferase 14 units/L (7-56); Albumin 2.5 g/dL (3.9-5); Bilirubin,Direct 0.2 mg/dL (0-0.2); Blood Urea Nitrogen 12 mg/dL (7-17); Calcium 8.1 mg/dL (8.4-10.2); Hemolysis Index 5
--- NOTE | 2022-02-24 00:52 | Emergency Department Report ---
ED General Adult HPI - General Chief complaint: Dyspnea/Respdistress Stated complaint: PNEUMOTHORAX Time Seen by Provider: 02/23/22 22:20 Source: patient Mode of arrival: Stretcher Limitations: No Limitations - History of Present Illness Initial comments: Patient is a 61-year-old female sent from LT[facility] after discharge from ICU yesterday for spontaneous right-sided pneumothorax. Supplies were not available at [facility]. - Related Data Home Medications Medication Instructions Recorded Confirmed Last Taken Ergocalciferol [Vitamin D2] 1 cap PO QWEEK 02/02/22 02/02/22 Unknown Famotidine [Pepcid] 20 mg PO DAILY 02/02/22 02/02/22 Unknown Loratadine [Claritin] 10 mg PO DAILY 02/02/22 02/02/22 Unknown Mirtazapine [Remeron] 15 mg PO HS 02/02/22 02/02/22 Unknown carvediloL [Coreg] 3.125 mg PO BID 02/02/22 02/02/22 Unknown Previous Rx's Medication Instructions Recorded Last Taken Type AtorvaSTATin [Lipitor] 20 mg FEEDTUBE QHS tablet 02/22/22 Unknown Rx Clopidogrel [Plavix] 75 mg FEEDTUBE QDAY tablet 02/22/22 Unknown Rx Enoxaparin 40 mg SUB-Q BID syringe 02/22/22 Unknown Rx Famotidine [Pepcid] 20 mg FEEDTUBE BID tablet 02/22/22 Unknown Rx Insulin Glargine [Lantus VIAL] 5 unit SUB-Q QHS 30 Days 02/22/22 Unknown Rx Insulin Regular, Human [HumuLIN R] 0 units SUB-Q Q6H units 02/22/22 Unknown Rx QUEtiapine [SEROquel] 50 mg FEEDTUBE BID tablet 02/22/22 Unknown Rx Sennosides/Docusate [Senokot S] 2 tab FEEDTUBE Q12H tablet 02/22/22 Unknown Rx Allergies Allergy/AdvReac Type Severity Reaction Status Date / Time No Known Allergies Allergy Verified 01/31/22 17:55 ED Review of Systems ROS: Stated complaint: PNEUMOTHORAX Other details as noted in HPI Comment: Unobtainable due to pts medical conditions ED Past Medical Hx - Past Medical History Previous Medical History?: Yes Hx Hypertension: Yes Hx Diabetes: Yes Hx Liver Disease: No Hx Renal Disease: No Additional medical history: Trach (Ventilator) - Surgical History Past Surgical History?: No Hx Pacemaker: No Hx Internal Defibrillator: No - Social History Smoking Status: Former Smoker Substance Use Type: None - Medications Home Medications: Home Medications Medication Instructions Recorded Confirmed Last Taken Type Ergocalciferol [Vitamin D2] 1 cap PO QWEEK 02/02/22 02/02/22 Unknown History Famotidine [Pepcid] 20 mg PO DAILY 02/02/22 02/02/22 Unknown History Loratadine [Claritin] 10 mg PO DAILY 02/02/22 02/02/22 Unknown History Mirtazapine [Remeron] 15 mg PO HS 02/02/22 02/02/22 Unknown History carvediloL [Coreg] 3.125 mg PO BID 02/02/22 02/02/22 Unknown History AtorvaSTATin [Lipitor] 20 mg FEEDTUBE QHS tablet 02/22/22 Unknown Rx Clopidogrel [Plavix] 75 mg FEEDTUBE QDAY tablet 02/22/22 Unknown Rx Enoxaparin 40 mg SUB-Q BID syringe 02/22/22 Unknown Rx Famotidine [Pepcid] 20 mg FEEDTUBE BID tablet 02/22/22 Unknown Rx Insulin Glargine [Lantus VIAL] 5 unit SUB-Q QHS 30 Days 02/22/22 02/02/22 Unknown Rx Insulin Regular, Human [HumuLIN R] 0 units SUB-Q Q6H units 02/22/22 Unknown Rx QUEtiapine [SEROquel] 50 mg FEEDTUBE BID tablet 02/22/22 Unknown Rx Sennosides/Docusate [Senokot S] 2 tab FEEDTUBE Q12H tablet 02/22/22 Unknown Rx ED Physical Exam - General Limitations: No Limitations General appearance: alert, in no apparent distress - Head Head exam: Present: atraumatic, normocephalic - Neck Neck exam: Present: other (Tracheostomy in place) - Respiratory Respiratory exam: Present: decreased breath sounds (Decreased breath sounds on right side). Absent: respiratory distress - Cardiovascular Cardiovascular Exam: Present: normal rhythm, tachycardia, normal heart sounds - GI/Abdominal GI/Abdominal exam: Present: soft. Absent: distended - Rectal Rectal exam: Present: deferred - Neurological Exam Neurological exam: Present: alert - Skin Skin exam: Present: warm, dry, intact ED Course Vital Signs 02/23/22 02/23/22 21:48 22:47 Temperature 98 F Pulse Rate 130 H 138 H Respiratory 20 Rate Blood Pressure 188/100 O2 Sat by Pulse 100 100 Oximetry - Chest Tube Chest Tube Location: fifth interspace Chest Tube Procedure: betadine prep, sterile drapes applied Number of Attempts: 2 Tube Sutured to Skin: Yes Post Procedure CXR?: Yes ED Medical Decision Making - Lab Data Result diagrams: 02/24/22 00:03 - Medical Decision Making Pigtail catheter inserted with resolution of pneumothorax. Patient has known tachycardia since recent admission. She was given 1 L saline bolus. Will discharge back to LTAC. Critical care attestation.: If time is entered above; I have spent that time in minutes in the direct care of this critically ill patient, excluding procedure time. ED Disposition Clinical Impression: Pneumothorax, right Disposition: [address] [place] [address] Is pt being admited?: No Condition: Stable Instructions: Pneumothorax
[2022-02-24 01:08] LABS: BUN/Creatinine Ratio 40
[2022-02-24 01:28] LABS: Red Blood Count 3.26 M/mm3 (3.65-5.03)
[2022-02-24 01:29] LABS: Hematocrit 22.7 % (30.3-42.9); Hemoglobin 6.8 gm/dl (10.1-14.3)
[2022-02-24 01:30] LABS: Mean Corpuscular HGB Conc 30 % (30-34); Mean Corpuscular Volume 70 fl (79-97); Platelet Count 336 K/mm3 (140-440); Red Cell Distribution Width 29.8 % (13.2-15.2)
[2022-02-24 01:31] LABS: Mean Platelet Volume 9.8 fl (6-12)
[2022-02-24 02:54] LABS: Total Cells Counted 100
[2022-02-24 02:55] VITALS: BP 122/67
[2022-02-24 02:55] LABS: Anisocytosis 1+; Basophils % (Manual) 0 % (0.0-1.8); Platelet Estimate Consistent w Auto
== END 2022-02-24 01:00 ==
LOC: ED 21:47
DX: J93.9 Pneumothorax, unspecified (principal); I10 Essential (primary) hypertension; E11.9 Type 2 diabetes mellitus without complications; Z87.891 Personal history of nicotine dependence
CPT/HCPCS: 32551; 36415; 71045; 80048; 80076; 82803; 85007; 85025; 87070; 87205; 96360; 99284; J7030; 94002